=== PATIENT | female | born 1955 | race African-American/Black ===

== ENCOUNTER 2016-12-05 17:02 | Inpatient (IN) | payer OTHER ==
--- NOTE | 2016-12-05 17:27 | PDOC ---
History of Present Illness - General History Source: Patient Exam Limitations: No Limitations <Cristina Crawford - Last Filed: 12/05/16 18:47> - General History Source: Patient Exam Limitations: No Limitations - History of Present Illness Initial Comments: 12/05/16 18:50 The patient is a 61-year-old female (compliant with meds), with a significant past medical history of HTN, IDDM, CHF, NC with 2 stents, asthma, anemia, who presents to the emergency department with shortness of breath, chest tightness, hypertension, and a persistent cough. The patient reports the shortness of breath has been worsening, and she is unable to walk more than a block as opposed to 3 months ago. She has had the chest tightness for one week. She reports that the chest tightness is intermittent, extends from the left chest region to the throat, described as a pressure in her chest, and is exacerbated at night (uses 3 pillows to sleep). She reports a non-productive cough for the last 8 months, and she has taken nebulizers with no relief. She reports occasional chills and loss of appetite. The patient denies headache and dizziness. The patient denies fever, nausea, vomit, diarrhea and constipation. The patient denies any urinary complaints. She denies recent travel or sick contacts. She denies changes to medications. Allergies: Seasonal allergies, eye drops, penicillins Past surgical history: arthroscopy Social history: Denies smoking, ETOH, or recreational drug use. PMD - Dr. William Bruner Veterans Employment Representative: Dr. Con Chen <Misa Steven - Last Filed: 12/05/16 18:52> - General Chief Complaint: Blood Pressure Problem Stated Complaint: PCP SENT/SHORTNESS OF BREATH/HTN Time Seen by Provider: 12/05/16 17:21 Past History - Past Medical History Anemia: Yes Asthma: Yes Cancer: No Cardiac Disorders: Yes (NC 2012, 1 stent, CHF) CVA: No COPD: No CHF: Yes Dementia: No Diabetes: Yes GI Disorders: No Disorders: Yes (elevated creatinine) HTN: Yes Hypercholesterolemia: Yes Liver Disease: No Seizures: No Thyroid Disease: No - Surgical History Abdominal Surgery: No Appendectomy: No Cardiac Surgery: Yes (2 stents 04/29/2015) Cholecystectomy: No Lung Surgery: No Neurologic Surgery: No Orthopedic Surgery: Yes (arthroscopy sep 08 @ [facility]) - Immunization History Immunization Up to Date: Yes - Psycho/Social/Smoking Cessation Hx Anxiety: No Suicidal Ideation: No Smoking Status: No Smoking History: Never smoked Have you smoked in the past 12 months: No Number of Cigarettes Smoked Daily: 0 Information on smoking cessation initiated: No Hx Alcohol Use: No Drug/Substance Use Hx: No Substance Use Type: None Hx Substance Use Treatment: No <Cristina Crawford - Last Filed: 12/05/16 18:47> <Misa Steven - Last Filed: 12/05/16 18:52> - Past Medical History Allergies/Adverse Reactions: Allergies Allergy/AdvReac Type Severity Reaction Status Date / Time Penicillins Allergy Intermediate Hives Verified 12/05/16 17:12 Iodinated Contrast Media - Allergy Verified 12/05/16 17:12 Oral and [Iodinated Contrast Media - IV Dye] Home Medications: Ambulatory Orders Aspirin [ASA -] 81 mg PO DAILY #1 tab 03/06/13 Insulin (Novolog) [Novolog Flexpen -] 0 units SQ ACHS 01/16/14 Rosuvastatin Calcium [Crestor] 10 mg PO HS 01/16/14 Ferrous Sulfate [Feosol] 325 mg PO BID #0 ud 05/08/15 Prasugrel Hydrochloride [Effient -] 10 mg PO DAILY #0 tab 05/08/15 Carvedilol Phosphate [Coreg Cr -] 40 mg PO DAILY 10/25/15 Clonazepam 0.5 mg PO QID PRN 10/25/15 Albuterol 0.083% Nebulizer Bibiana [Ventolin 0.083% Nebulizer Soln -] 1 neb NEB QID 09/14/16 Hydralazine HCl 100 mg PO TID #90 tablet 09/18/16 Insulin (Levemir) [Levemir Vial] 30 units SQ HS ml 09/18/16 Torsemide [Demadex -] 20 mg PO DAILY #60 tablet 09/18/16 Nitroglycerin Patch [Nitro-Dur] 0.2 mg TD DAILY 12/05/16 Review of Systems - Review of Systems Able to Perform ROS?: Yes Comments:: 12/05/16 18:51 GENERAL/CONSTITUTIONAL: Present: (+) loss of appetite No: fever, chills, weakness. HEAD, EYES, EARS, NOSE AND THROAT: No: change in vision, ear pain, discharge, sore throat, throat swelling. CARDIOVASCULAR: Present: (+) Chest tightness No: lightheadedness, palpitations, syncope RESPIRATORY: Present: (+) cough, (+) shortness of breath No: hemoptysis, stridor. GASTROINTESTINAL: No: nausea, vomiting, abdominal cramping, diarrhea, rectal bleeding, constipation. GENITOURINARY: No: dysuria, hematuria, frequency, urgency, flank pain. MUSCULOSKELETAL: No: back pain, neck pain, joint pain, muscle swelling or pain SKIN AND BREASTS: No: lesions, pallor, rash or easy bruising. NEUROLOGIC: No: headache, vertigo, paresthesias, weakness ENDOCRINE: No: unexplained weight gain or loss HEMATOLOGIC/LYMPHATIC: No: anemia, easy bleeding, swelling nodes <StevenCarlyMisa - Last Filed: 12/05/16 18:52> *Physical Exam - Vital Signs Last Vital Signs Temp Pulse Resp BP Pulse Ox 98.6 F 96 H 19 204/110 96 12/05/16 17:05 12/05/16 17:05 12/05/16 17:05 12/05/16 17:05 12/05/16 17:05 <Cristina Crawford - Last Filed: 12/05/16 18:47> - Vital Signs Last Vital Signs Temp Pulse Resp BP Pulse Ox 98.6 F 100 H 20 224/112 100 12/05/16 17:05 12/05/16 17:35 12/05/16 17:35 12/05/16 17:35 12/05/16 17:35 - Physical Exam Comments: 12/05/16 18:51 GENERAL: The patient is in no acute distress. HEAD: Normal with no signs of trauma. EYES: PERRLA, EOMI, sclera anicteric, conjunctiva clear. ENT: Ears normal, nares patent, oropharynx clear without exudates. Moist mucous membranes. NECK: Normal range of motion, supple without lymphadenopathy, JVD, or masses. LUNGS: (+) Inspiratory and expiratory wheezing and rhonchi. HEART: (+) Tachycardia. Regular rhythm, normal S1 and S2 without murmur, rub or gallop. ABDOMEN: Soft, nontender, normoactive bowel sounds. No guarding, no rebound. EXTREMITIES: Normal range of motion, no lower extremity edema. No clubbing or cyanosis. No erythema, or tenderness. NEUROLOGICAL: Cranial nerves II through XII grossly intact. Normal speech. No focal neurological deficits. MUSCULOSKELETAL: Back non-tender to palpation, no CVA tenderness SKIN: Warm, Dry, normal turgor, no rashes or lesions noted. <Misa Steven - Last Filed: 12/05/16 18:52> ED Treatment Course - LABORATORY CBC & Chemistry Diagram: 12/05/16 17:20 12/05/16 17:20 - RADIOLOGY Radiology Studies Ordered: Category Date Time Status CHEST X-RAY PORTABLE* [RAD] Stat Radiology 12/05/16 17:21 Ordered <TyCristina - Last Filed: 12/05/16 18:47> - LABORATORY CBC & Chemistry Diagram: 12/05/16 17:20 12/05/16 17:20 - ADDITIONAL ORDERS Additional order review: Laboratory Results 12/05/16 12/05/16 12/05/16 18:20 18:00 17:20 INR VBG pH 7.24 L* POC VBG pCO2 58.7 H POC VBG pO2 32.3 Sodium 141 Potassium 4.4 Chloride 102 Carbon Dioxide 26 Anion Gap 13 BUN 49 H Creatinine 2.3 H Creat Clearance w eGFR 21.56 Random Glucose 131 H D Lactic Acid 0.991 Calcium 8.9 Total Bilirubin 0.3 AST 20 ALT 20 Alkaline Phosphatase 133 H D Creatine Kinase 93 Troponin I 0.19 H B-Natriuretic Peptide 1671.30 H Total Protein 8.4 H Albumin 3.9 12/05/16 17:20 INR 1.07 VBG pH POC VBG pCO2 POC VBG pO2 Sodium Potassium Chloride Carbon Dioxide Anion Gap BUN Creatinine Creat Clearance w eGFR Random Glucose Lactic Acid Calcium Total Bilirubin AST ALT Alkaline Phosphatase Creatine Kinase Troponin I B-Natriuretic Peptide Total Protein Albumin 12/05/16 17:20 RBC 4.62 MCV 77.6 L MCHC 32.2 RDW 12.8 MPV 7.8 Neutrophils % 59.3 Lymphocytes % 28.8 Monocytes % 7.8 Eosinophils % 3.2 Basophils % 0.9 - Medications Given in the ED: ED Medications Discontinued Medications Generic Name Dose Route Start Last Admin Trade Name Freq PRN Reason Stop Dose Admin Hydralazine HCl 10 mg 12/05/16 17:42 12/05/16 18:02 Apresoline Injection - IVPUSH 12/05/16 17:43 10 mg ONCE ONE Administration <Misa Steven - Last Filed: 12/05/16 18:52> Medical Decision Making - Medical Decision Making 12/05/16 17:26 A portion of this note was documented by scribe services under my direction. I have reviewed the details of the note, within reason, and agree with the documentation with the following case summary and management plan written by me. Nursing documentation reviewed and incorporated into medical decision making 12/05/16 18:21 This is a 61-year-old female with a history of hypertension, hyperlipidemia, coronary artery disease status post NC, PCI and stent x 2, just of heart failure (diastolic dysfunction), anemia who presents emergency department with a complaint of shortness of breath, cough, hypertension. Pt has had cough and shortness of breath for 2 week PT also has noted elevated blood pressure (previously blood pressure was 130s/ 80s) Pt has also noted intermittent left chest pain which is worse at night, not associated with diaphoresis/nausea/exertion, no radiation No recent travel No fevers or chills Pt has used her nebulizer with little relief No ill contacts Pt has been compliant with her antihypertensives (of note, pt had been on hydralazine 100 tid, now on hydralazine 25mg) On examination BP 224/126 Insp and exp wheezing and rhonchi No abd tenderness No lower extremity edema Will do: Labs CXR Nebs Pt would like to AVOID steroids (due to prior experience where they severely elevate 12/05/16 18:30 Laboratory Tests 09/25/16 12/05/16 12/05/16 15:06 17:20 17:20 WBC 8.3 Hgb 11.5 D Hct 35.9 Plt Count 296 Neutrophils % 59.3 Lymphocytes % 28.8 INR 1.07 Sodium Potassium Chloride Carbon Dioxide BUN 55 H D Creatinine 2.5 H Random Glucose 192 H D Alkaline Phosphatase Troponin I B-Natriuretic Peptide 12/05/16 17:20 WBC Hgb Hct Plt Count Neutrophils % Lymphocytes % INR Sodium 141 Potassium 4.4 Chloride 102 Carbon Dioxide 26 BUN 49 H Creatinine 2.3 H Random Glucose 131 H D Alkaline Phosphatase 133 H D Troponin I 0.19 H B-Natriuretic Peptide 1671.30 H 12/05/16 18:32 CXR: cardiomegaly No effusion, no consolidation 12/05/16 18:47 Pt with renal insufficiency, trop approximately stable BNP elevated BP improved slightly Will place on observation <Cristina Crawford - Last Filed: 12/05/16 18:47> *DC/Admit/Observation/Transfer - Discharge Dispostion Admit: Yes <Cristina Crawford - Last Filed: 12/05/16 18:47> - Attestations Scribe Attestion: 12/05/16 18:52 Documentation prepared by Misa Steven, acting as medical secretary for Cristina Crawford MD. <Misa Steven - Last Filed: 12/05/16 18:52> Diagnosis at time of Disposition: Asthma exacerbation Chest pain Qualifiers: Chest pain type: unspecified Qualified Code(s): R07.9 - Chest pain, unspecified HTN (hypertension) Qualifiers: Hypertension type: unspecified secondary hypertension Qualified Code(s): I15.9 - Secondary hypertension, unspecified - Discharge Dispostion Condition at time of disposition: Stable
[2016-12-05] MEDS ORDERED: hydrALAZINE HCL 20 MG/ML VIAL IVPUSH ONE (17:42)
[2016-12-05 17:50] LABS: BASOPHIL 0.9 % (0-2.0); EOSINOPHIL 3.2 % (0-4.5); MCHC 32.2 g/dl (32.0-36.0); MEAN CELL VOLUME 77.6 fl (80-96); MEAN PLT VOLUME 7.8 fl (7.5-11.1); NEUTROPHILS 59.3 % (42.8-82.8); PLATELET COUNT 296 K/MM3 (134-434); RDW 12.8 % (11.6-15.6); WHITE BLOOD COUNT 8.3 K/mm3 (4.0-10.0)
[2016-12-05] MEDS ORDERED: hydrALAZINE HCL 20 MG/ML VIAL ONE (17:56)
[2016-12-05] MEDS ORDERED: ALBUTEROL SO4 2.5/IPRATROPIUM 0.5 INH SOL 3 ML VIAL.NEB. NEB ONE ×2 (17:58)
[2016-12-05 18:06] LABS: INR 1.07 (0.82-1.09); PROTHROMBIN TIME (PATIENT) 11.8 SEC (9.98-11.88)
[2016-12-05 18:15] LABS: ALBUMIN 3.9 g/dl (3.4-5.0); BILIRUBIN,TOTAL 0.3 mg/dL (0.2-1.0); CALCIUM 8.9 mg/dL (8.5-10.1); CREATININE 2.3 mg/dL (0.55-1.02); TOT PROT 8.4 g/dl (6.4-8.2)
[2016-12-05 18:19] LABS: TROPONIN I 0.19 ng/ml (0.00-0.05)
[2016-12-05 18:33] LABS: VENOUS BLOOD GAS HCO3 24.4 meq/L (22-29)
[2016-12-05 18:35] LABS: VENOUS PH 7.24 (7.31-7.41)
--- NOTE | 2016-12-05 19:17 | HP ---
CHIEF COMPLAINT: "i have trouble breathing" PCP: Dr. William Bruner Assignment Desk Assistant: Dr. Con Chen Pulm: Dr Oliveira HISTORY OF PRESENT ILLNESS: This is a 61 yo F with PMH of plash pulmonary edema while euvolemic, malignant HTN, multi drug resistant HTN, IDDM, HFPEF, [place] s/p 2 stents, asthma and anemia, who presents due to sob, chest tightness and cough. In ED she is found to be hypertensive 224/112. She was hospitalized in august due to flash pulmonary edema in euvolemic state. She reports that she has has a persistent dry cough since then, aggravated by lying flat. yesterday she started feeling incresingly SOB, associated with L sided nonradiating chest tightness. She also noticed increased exercise intolerance, unable to walk 1 block. She began to wheeze yesterday as well. She also reports anorexia for the past week, and a few pounds of weight loss. She has baseline orhtopnea and sleeps on 3 pillows with no recent change. She is compliant with her meds. Her DM is poorly managed, last A1c=9; AM sugars 135-180. Per cardiology, she is unresponsive to the following BP meds: diovan, micardis, verap, norvasc, nifedipine, nisoldipine, catapres patch. She takes daily nebs for asthma but has not needed to increase them recently. She has never been hospitalized for asthma exacerbation. She denies increase in LE edema, h/a f/c, palpitations, chest pain, iliguria, n/v, loc, abd pain, diarrhea. ER course was notable for: (1)hydralazine IV, nebs (2)cxr, ekg (3)labs Recent Travel: denies PAST MEDICAL HISTORY: as above PAST SURGICAL HISTORY: c section, eye surgery, colloid scar removal, knee surgery Social History: lives with daughter, retired Smoking: denies Alcohol:denies Drugs: denies Family History: HTN Allergies Penicillins Allergy (Intermediate, Verified 12/05/16 17:12) Hives Iodinated Contrast Media - Oral and [Iodinated Contrast Media - IV Dye] Allergy (Verified 12/05/16 17:12) HOME MEDICATIONS: Medication Instructions Recorded Aspirin [ASA -] 81 mg PO DAILY #1 tab 04/08/13 Insulin (Novolog) [Novolog Flexpen 0 units SQ ACHS 01/16/14 -] Rosuvastatin Calcium [Crestor] 10 mg PO HS 01/16/14 Ferrous Sulfate [Feosol] 325 mg PO BID #0 ud 05/08/15 Prasugrel Hydrochloride [Effient -] 10 mg PO DAILY #0 tab 05/08/15 Carvedilol Phosphate [Coreg Cr -] 40 mg PO DAILY 10/25/15 Clonazepam 0.5 mg PO QID PRN 10/25/15 Albuterol 0.083% Nebulizer Bibiana 1 neb NEB QID 09/14/16 [Ventolin 0.083% Nebulizer Soln -] Hydralazine HCl 100 mg PO TID #90 tablet 09/18/16 Insulin (Levemir) [Levemir Vial] 30 units SQ HS ml 09/18/16 Torsemide [Demadex -] 20 mg PO DAILY #60 tablet 09/18/16 Nitroglycerin Patch [Nitro-Dur] 0.2 mg TD DAILY 12/05/16 REVIEW OF SYSTEMS CONSTITUTIONAL: Absent: fever, chills, diaphoresis, malaise HEENT: Absent: rhinorrhea, nasal congestion, throat pain CARDIOVASCULAR: Absent: chest pain, syncope, palpitations, irregular heart rate, lightheadedness RESPIRATORY: Absent: stridor, hemoptysis GASTROINTESTINAL: Absent: abdominal pain, abdominal distension, nausea, vomiting, diarrhea GENITOURINARY: Absent: dysuria, oliguria MUSCULOSKELETAL: Absent:back pain, neck pain SKIN: Absent: rash HEMATOLOGIC/IMMUNOLOGIC: Absent: frequent infections ENDOCRINE: Absent: heat intolerance, cold intolerance NEUROLOGIC: Absent: headache, focal weakness or paresthesias, dizziness PSYCHIATRIC: Absent: anxiety, depression PHYSICAL EXAMINATION Vital Signs - 24 hr 12/05/16 12/05/16 12/05/16 17:05 17:35 18:15 Temperature 98.6 F Pulse Rate 96 H Pulse Rate [ 100 H 87 Right Radial] Respiratory 19 20 20 Rate Blood Pressure 204/110 Blood Pressure 224/112 181/68 [Left Arm] O2 Sat by Pulse 96 100 100 Oximetry (%) GENERAL: Awake, alert, and fully oriented, in no acute distress. HEAD: Normal with no signs of trauma. EYES: Pupils equal, round and reactive to light, extraocular movements intact, sclera anicteric, conjunctiva clear. no papilledema EARS, NOSE, THROAT: Moist mucous membranes. NECK: supple without JVD LUNGS: diffuse wheezes HEART: tachy rate and reguylar rhythm, normal S1 and S2 ABDOMEN: Soft, nontender, not distended, normoactive bowel sounds MUSCULOSKELETAL: No CVA tenderness. UPPER EXTREMITIES: 2+ pulses, warm, well-perfused. No cyanosis. No peripheral edema. LOWER EXTREMITIES: 2+ pulses, warm, well-perfused. No calf tenderness. 1+ edema , at baseline per patient NEUROLOGICAL: Cranial nerves II-XII grossly intact. Normal speech. PSYCHIATRIC: Cooperative. Good eye contact SKIN: Warm, dry Laboratory Results - last 24 hr 12/05/16 12/05/16 12/05/16 17:20 17:20 17:20 WBC 8.3 RBC 4.62 Hgb 11.5 D Hct 35.9 MCV 77.6 L MCHC 32.2 RDW 12.8 Plt Count 296 MPV 7.8 Neutrophils % 59.3 Lymphocytes % 28.8 Monocytes % 7.8 Eosinophils % 3.2 Basophils % 0.9 INR 1.07 VBG pH POC VBG pCO2 POC VBG pO2 Sodium 141 Potassium 4.4 Chloride 102 Carbon Dioxide 26 Anion Gap 13 BUN 49 H Creatinine 2.3 H Creat Clearance w eGFR 21.56 Random Glucose 131 H D Lactic Acid Calcium 8.9 Total Bilirubin 0.3 AST 20 ALT 20 Alkaline Phosphatase 133 H D Creatine Kinase 93 Troponin I 0.19 H B-Natriuretic Peptide 1671.30 H Total Protein 8.4 H Albumin 3.9 Blood Type Antibody Screen 12/05/16 12/05/16 12/05/16 17:42 18:00 18:20 WBC RBC Hgb Hct MCV MCHC RDW Plt Count MPV Neutrophils % Lymphocytes % Monocytes % Eosinophils % Basophils % INR VBG pH 7.24 L* POC VBG pCO2 58.7 H POC VBG pO2 32.3 Sodium Potassium Chloride Carbon Dioxide Anion Gap BUN Creatinine Creat Clearance w eGFR Random Glucose Lactic Acid 0.991 Calcium Total Bilirubin AST ALT Alkaline Phosphatase Creatine Kinase Troponin I B-Natriuretic Peptide Total Protein Albumin Blood Type A POSITIVE Antibody Screen Negative ASSESSMENT/PLAN: his is a 61 yo F with PMH of plash pulmonary edema while euvolemic, malignant HTN, multi drug resistant HTN, IDDM, HFPEF, [place] s/p 2 stents, asthma and anemia, who presents due to sob, chest tightness and cough. HTN was brought down to 160 systolic in ED TTE 09/14/16 low normal EF EKG today no acute st changes CXR: bibasilar opacities similar to findings 1 yr ago but much better than in august Acute CHF exacerbation in setting of HFPEF and hypertensive urgency vs possible asthma exacerbation -trop 0.19 at patients baseline, trend trop -BNP 1671 at patients baseline -sign of volume overload on XCR vs pulm edema -no significant peripheral edema or weight gain -strict I and O -daily weight -gentle IV diuresis -nebs -am cxr -tfts, lipid profile -asa 325 -hold coreg until blood pressure is at baseline (150's) for 24 hr -cardiology consult Hypertensive urgency -no sign of acute end organ damage -Lasix 40 IV now; 40 daily -continue home meds; hydralazine 100 tid, NTG patch 0.2 d; torsemide 20d -tele monitoring CAD s/p pci -effient -crestor CKD -creat 2.3 baseline -monitor renal fxn IDDM -a1C -Levemid 30 HS -Novolog sliding scale -fingestick TID AC FEN No IVF; diurese Lytes stable DVT GI PPX: Hep, diet diabetic, na restricted diet Dispo: admit to tele Problem List - Problem (1) Asthma exacerbation Code(s): J45.901 - UNSPECIFIED ASTHMA WITH (ACUTE) EXACERBATION (2) HTN (hypertension) Code(s): I10 - ESSENTIAL (PRIMARY) HYPERTENSION Qualifiers: Hypertension type: unspecified secondary hypertension Qualified Code(s) : I15.9 - Secondary hypertension, unspecified; I15 - Secondary hypertension (3) Acute pulmonary edema with congestive heart failure Code(s): I50.1 - LEFT VENTRICULAR FAILURE (4) Anemia Code(s): D64.9 - ANEMIA, UNSPECIFIED (5) CAD (coronary artery disease) Code(s): I25.10 - ATHSCL HEART DISEASE OF [place] CORONARY ARTERY W/O ANG PCTRS (6) CHF (congestive heart failure) Code(s): I50.9 - HEART FAILURE, UNSPECIFIED (7) Headache Code(s): R51 - HEADACHE (8) IDDM (insulin dependent diabetes mellitus) Code(s): E11.9 - TYPE 2 DIABETES MELLITUS WITHOUT COMPLICATIONS Z79.4 - MUTUAL FUND ANALYST (CURRENT) USE OF INSULIN (9) IN, old Code(s): I25.2 - OLD MYOCARDIAL INFARCTION (10) Hypertensive urgency Code(s): I10 - ESSENTIAL (PRIMARY) HYPERTENSION Visit type - Emergency Visit Emergency Visit: Yes ED Registration Date: 12/05/16 Care time: The patient presented to the Emergency Department on the above date and was hospitalized for further evaluation of their emergent condition. - New Patient This patient is new to me today: Yes Date on this admission: 12/05/16 - Critical Care Critical Care patient: No
--- NOTE | 2016-12-05 19:19 | PN ---
<AnthonyJames - Last Filed: 12/05/16 19:18> Teaching Attending Note ATTENDING PHYSICIAN STATEMENT I saw and evaluated the patient. I reviewed the resident's note and discussed the case with the resident. I agree with the resident's findings and plan as documented. SUBJECTIVE: OBJECTIVE: ASSESSMENT AND PLAN: <Braxton Fontenot - Last Filed: 12/05/16 21:38> Teaching Attending Note Name of Resident: Siria Mccray ATTENDING PHYSICIAN STATEMENT I saw and evaluated the patient. I reviewed the resident's note and discussed the case with the resident. I agree with the resident's findings and plan as documented. SUBJECTIVE: 61 year old female, with past medical history of HTN, pulmonary edema, IDDM, CHF, [place] s/p stents (x2), asthma and anemia. The patient presents to the ED with severe shortness of breath, chest tightness and dyspnea on exertion for one day duration and a chronic dry cough for the past 8 months.Denies any fever, sick contacts. Currently reports improvement of chest tightness. Denies increase in weight. OBJECTIVE: Vitals: BP: 150/87 Afebrile Heart rate: 95 bpm GENERAL: Awake, alert, and fully oriented, in no acute distress HEENT: Atraumatic. PERRLA, EOMI. Moist mucosa. No JVD LUNGS: +Bilateral wheezing appreciated. HEART: Regular rate and rhythm, normal S1 and S2, no murmurs, peripheral pulses normal and equal bilaterally. ABDOMEN: Soft, nontender, normoactive bowel sounds. EXTREMITIES: 1+ bilateral pitting edema in lower extremities. NEUROLOGICAL: Cranial nerves II through XII grossly intact. Normal speech, no focal sensorimotor deficits SKIN: Warm, Dry, normal turgor, no rashes or lesions noted. CBCD WBC 8.3 K/mm3 (4.0-10.0) 12/05/16 17:20 RBC 4.62 M/mm3 (3.60-5.2) 12/05/16 17:20 Hgb 11.5 GM/dL (10.7-15.3) D 12/05/16 17:20 Hct 35.9 % (32.4-45.2) 12/05/16 17:20 MCV 77.6 fl (80-96) L 12/05/16 17:20 MCHC 32.2 g/dl (32.0-36.0) 12/05/16 17:20 RDW 12.8 % (11.6-15.6) 12/05/16 17:20 Plt Count 296 K/MM3 (134-434) 12/05/16 17:20 MPV 7.8 fl (7.5-11.1) 12/05/16 17:20 CMP Sodium 141 mmol/L (136-145) 12/05/16 17:20 Potassium 4.4 mmol/L (3.5-5.1) 12/05/16 17:20 Chloride 102 mmol/L (98-107) 12/05/16 17:20 Carbon Dioxide 26 mmol/L (21-32) 12/05/16 17:20 Anion Gap 13 (8-16) 12/05/16 17:20 BUN 49 mg/dL (7-18) H 12/05/16 17:20 Creatinine 2.3 mg/dL (0.55-1.02) H 12/05/16 17:20 Creat Clearance w eGFR 21.56 (>60) 12/05/16 17:20 Calcium 8.9 mg/dL (8.5-10.1) 12/05/16 17:20 Total Bilirubin 0.3 mg/dL (0.2-1.0) 12/05/16 17:20 AST 20 U/L (15-37) 12/05/16 17:20 ALT 20 U/L (12-78) 12/05/16 17:20 Alkaline Phosphatase 133 U/L (45-117) H D 12/05/16 17:20 Total Protein 8.4 g/dl (6.4-8.2) H 12/05/16 17:20 Albumin 3.9 g/dl (3.4-5.0) 12/05/16 17:20 Chest X-Ray Impression: cardiomegaly. Bilateral pulmonary edema and vascular congestion. EKG: Normal sinus rhythm No ST/T changes ASSESSMENT AND PLAN: 1. Decompensated congestive heart failure, Likely secondary to uncontrolled hypertension with fluid overload on physical exam, chest x-ray and elevated BNP. Decreased exercise tolerance from baseline -Give Furosemide 40 mg STAT and BID -Monitor ins and outs and daily weights -2 gram sodium diet -Start on Hydralizine 100 mg TID -Avoid rosendo inhibitors due to CKD 2. Coronary artery disease with history of cardiac stents (x2), Ekg no evidence of ST elevation AR, Troponin mildly elevated, rule out acute AR. -Trend Troponin Q6 Hours -Monitor on telemetry -Load with Aspirin 325 mg -Repeat EKG if Chest pain 3. Hypertensive urgency, has improved, blood pressure 150/87 on latest vital check -Continue to monitor vitals Q4 hours -Lasix 40 mg BID -Hydralazine 100 mg TID -2 Gram sodium diet 4. Asthma exacerbation -Treat with albuterol and atrovent nebs Q6 hours -Prednisone 40 mg daily 5. CKD, stable - Avoid nephrotoxic medications DVT prophylaxis -Heparin 5,000 units s/q Q12 Diet -2 gram sodium diabetic diet Documentation prepared by Braxton Fontenot, acting as certified medical asst for James Cruz MD
[2016-12-05] MEDS ORDERED: FUROSEMIDE 40 MG/4 ML INJECTABLE VIAL IVPUSH ONE (21:10)
[2016-12-05] MEDS: ACETAMINOPHEN 325 MG TABLET (FP) PO PRN (21:43)
[2016-12-05] MEDS: FERROUS SO4 325 MG TABLET (FP) PO SCH (21:45)
[2016-12-05] MEDS: hydrALAZINE HCL 50 MG TABLET (FP) PO SCH (21:45)
[2016-12-05] MEDS: ROSUVASTATIN CA 10 MG TABLET (FP) PO SCH (21:45)
[2016-12-05] MEDS: HEPARIN NA (PORCINE) 5,000 UNITS/ML 1ML VIAL SQ SCH (21:50)
[2016-12-05] MEDS ORDERED: ALBUTEROL SO4 0.083% IH SOL 2.5 MG/3 ML VIAL.NEB. NEB SCH (22:00)
[2016-12-05] MEDS ORDERED: CARVEDILOL PHOSPHATE CR 40 MG CAPSULE (FP) PO SCH (22:00)
[2016-12-05] MEDS ORDERED: ASPIRIN 325 MG ENTERIC COATED TABLET (FP) PO ONE (23:08)
[2016-12-05] MEDS: INSULIN DETEMIR 100 UNITS/ML MDV SQ SCH (23:23)
[2016-12-06 05:14] VITALS: BMI 39.9
[2016-12-06] MEDS: hydrALAZINE HCL 50 MG TABLET (FP) PO SCH (06:58)
[2016-12-06] MEDS ORDERED: INSULIN SLIDING SCALE (NOVOLOG) 1 VIAL SQ SCH (07:00)
[2016-12-06 07:10] LABS: MCHC 33.3 g/dl (32.0-36.0); MEAN CELL VOLUME 78.2 fl (80-96); MEAN PLT VOLUME 7.3 fl (7.5-11.1); PLATELET COUNT 241 K/MM3 (134-434); RDW 12.7 % (11.6-15.6)
[2016-12-06 07:31] LABS: CALCIUM 8.7 mg/dL (8.5-10.1); CREATININE 2.5 mg/dL (0.55-1.02); PHOSPHOROUS 4.6 mg/dL (2.5-4.9)
[2016-12-06 07:39] LABS: THYROID STIMULATING HORMONE 0.52 uIU/ml (0.358-3.74); TROPONIN I 0.19 ng/ml (0.00-0.05)
--- NOTE | 2016-12-06 09:26 | CONSULT ---
Cardiology Consult (text) - Consultation Consultation Note: cc: sob HPI: 61 year old f with known CAD--h/o NSTEMI '13 s/p LAD KAREN PCI 09/2013, and prox LCx KAREN PCI 2014, HTN, lone afib/PSVT, MR, pHTN, KATINA, NAFLD, HPL, CKD, anemia, IDDM who presents to the ED with shortness of breath. Says that after she was discharged in 08/2016 for dchf her breathing has been continually bothering her but then over past few days was much worse so came to ER. No cp, palps, dizzy, loc, pnd, orthopnea, le edema. Reports taking her meds at home. Sees dr johansen for cardiology. Past Medical History/past surg hx: per hpi. Additionally, obstructive renal stones with h/o R hydro s/p stent Social hx: Never smoked, no etoh or illicits Fam hx: No family hx of cardiac disease. Ros: per hpi; no nvd, nasal congestion, gib, hematuria, muscle pain, rose, vision changes - Allergies Allergies/Adverse Reactions: Allergies Allergy/AdvReac Type Severity Reaction Status Date / Time Penicillins Allergy Intermediate Hives Verified 12/05/16 17:12 Iodinated Contrast Media - Allergy Verified 12/05/16 17:12 Oral and [Iodinated Contrast Media - IV Dye] Medication Instructions Recorded Aspirin [ASA -] 81 mg PO DAILY #1 tab 03/06/13 Insulin (Novolog) [Novolog Flexpen 0 units SQ ACHS 01/16/14 -] Rosuvastatin Calcium [Crestor] 10 mg PO HS 01/16/14 Ferrous Sulfate [Feosol] 325 mg PO BID #0 ud 05/08/15 Prasugrel Hydrochloride [Effient -] 10 mg PO DAILY #0 tab 05/08/15 Carvedilol Phosphate [Coreg Cr -] 20 mg PO HS 10/25/15 Clonazepam 0.5 mg PO QID PRN 10/25/15 Albuterol 0.083% Nebulizer Bibiana 1 neb NEB QID 09/14/16 [Ventolin 0.083% Nebulizer Soln -] Hydralazine HCl 100 mg PO TID #90 tablet 09/18/16 Insulin (Levemir) [Levemir Vial] 30 units SQ HS ml 09/18/16 Torsemide [Demadex -] 20 mg PO DAILY #60 tablet 09/18/16 Nitroglycerin Patch [Nitro-Dur] 0.2 mg TD DAILY 12/05/16 pe: Vital Signs Period Temp Pulse Resp BP Sys/Shankar Pulse Ox Last 24 Hr 98.3 F-98.7 F 78-100 18-20 149-224/68-112 92-100 NAD, JVD flat, neck supple cta bl nl eff RRR nl s1 s2, no mrg + bs soft nt nd ext without e/c/c + dp/pt, no carotid bruits no jaundice, diaphoresis aaox3 Laboratory Last Values WBC 7.0 K/mm3 (4.0-10.0) 12/06/16 05:30 RBC 3.91 M/mm3 (3.60-5.2) 12/06/16 05:30 Hgb 10.2 GM/dL (10.7-15.3) L D 12/06/16 05:30 Hct 30.6 % (32.4-45.2) L 12/06/16 05:30 MCV 78.2 fl (80-96) L 12/06/16 05:30 MCHC 33.3 g/dl (32.0-36.0) 12/06/16 05:30 RDW 12.7 % (11.6-15.6) 12/06/16 05:30 Plt Count 241 K/MM3 (134-434) 12/06/16 05:30 MPV 7.3 fl (7.5-11.1) L 12/06/16 05:30 Neutrophils % 59.3 % (42.8-82.8) 12/05/16 17:20 Lymphocytes % 28.8 % (8-40) 12/05/16 17:20 Monocytes % 7.8 % (3.8-10.2) 12/05/16 17:20 Eosinophils % 3.2 % (0-4.5) 12/05/16 17:20 Basophils % 0.9 % (0-2.0) 12/05/16 17:20 INR 1.07 (0.82-1.09) 12/05/16 17:20 VBG pH 7.24 (7.31-7.41) L* 12/05/16 18:20 POC VBG pCO2 58.7 mmHg (41-51) H 12/05/16 18:20 POC VBG pO2 32.3 mmHg (30-40) 12/05/16 18:20 Sodium 141 mmol/L (136-145) 12/06/16 05:30 Potassium 4.1 mmol/L (3.5-5.1) 12/06/16 05:30 Chloride 105 mmol/L (98-107) 12/06/16 05:30 Carbon Dioxide 26 mmol/L (21-32) 12/06/16 05:30 Anion Gap 10 (8-16) 12/06/16 05:30 BUN 54 mg/dL (7-18) H 12/06/16 05:30 Creatinine 2.5 mg/dL (0.55-1.02) H 12/06/16 05:30 Creat Clearance w eGFR 21.56 (>60) 12/05/16 17:20 POC Glucometer 113 UNITS (()) 12/06/16 06:57 Random Glucose 110 mg/dL (74-106) H 12/06/16 05:30 Hemoglobin A1c % 10.2 % (4.8-6.0) H D 12/06/16 05:30 Lactic Acid 0.991 mmol/L (0.4-2.0) 12/05/16 18:00 Calcium 8.7 mg/dL (8.5-10.1) 12/06/16 05:30 Phosphorus 4.6 mg/dL (2.5-4.9) 12/06/16 05:30 Magnesium 2.0 mg/dL (1.8-2.4) 12/06/16 05:30 Total Bilirubin 0.3 mg/dL (0.2-1.0) 12/05/16 17:20 AST 20 U/L (15-37) 12/05/16 17:20 ALT 20 U/L (12-78) 12/05/16 17:20 Alkaline Phosphatase 133 U/L (45-117) H D 12/05/16 17:20 Creatine Kinase 93 IU/L (26-192) 12/05/16 17:20 Troponin I 0.19 ng/ml (0.00-0.05) H 12/06/16 05:30 B-Natriuretic Peptide 1671.30 pg/ml (5-125) H 12/05/16 17:20 Total Protein 8.4 g/dl (6.4-8.2) H 12/05/16 17:20 Albumin 3.9 g/dl (3.4-5.0) 12/05/16 17:20 Cholesterol 269 mg/dL (50-200) H 12/06/16 05:30 TSH 0.52 uIU/ml (0.358-3.74) 12/06/16 05:30 Free T4 1.14 ng/dl (0.76-1.46) 12/06/16 05:30 Blood Type A POSITIVE 12/05/16 17:42 Antibody Screen Negative 12/05/16 17:42 ECG 12/05/16: SR, nl intervals. No ischemic changes. Echo 09/14/16: Low nl LVEF. RV not well seen. 1+ MR. Echo 03/2015: TDS, normal LV/RVF, no sig valv abn Dobut stress echo 10/2015: 7.34 min. 83% MPHR. HTN response. No EKG changes. TDS apex, portions of AW and basal PW not well seen. No ischemia, appropriate EF augmentation. (post PCI) cxr: clear lungs tele: SR Assessment/Plan 61 year old f with known CAD--h/o NSTEMI '13 s/p LAD KAREN PCI 09/2013, and prox LCx KAREN PCI 2014, HTN, lone afib/PSVT, MR, pHTN, KATINA, NAFLD, HPL, CKD, anemia, IDDM who presents to the ED with shortness of breath. SOB/ acute decompensated diastolic CHF (acute on chronic HFPEF) - hx of "flash" pulmonary edema in the past--felt to be a combo of diast dysf and ischemic heart disease. Dry weight 247-250 lbs. - no signs acs - after iv lasix last night feeling much better. Based on BNP, dry weight and physical exam, she appears to be at baseline vol status now. 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 cont crestor, coreg, NTG patch. - No ACEI given fluctuating renal function. HTN: - intolerant of multiple BP meds before--diovan, micardis, verap, norvasc, nifedipine, nisoldipine, catapres path - bp initially elevated here but now improved. cont home coreg, nitro, hydralazine--pt reports she was not taking hydralazine 100 tid anymore and had been on 25 tid due to low bp in office, cont this dose for now, increase if needed HPL: - tolerating crestor 10 mg, con't. Myalgias w Atorva/Simva and high dose crestor KATINA / Mod PHTN - compliant with CPAP at home. - diastolic dysfunction likely also contributing to pHTN. ARF / CKD--scr in the 2.2--2.6 range - in baseline range, monitor with diuresis Remote PAF and PSVT - lone AF episode in setting of dobutamine, no recurrence. No AC thought to be indicated.
[2016-12-06] MEDS ORDERED: PT OWN MED DRAWER 7, Y5N ONE ×2 (09:43→22:12)
[2016-12-06] MEDS ORDERED: TORSEMIDE 20 MG TABLET (FP) PO SCH ×2 (10:00)
[2016-12-06] MEDS ORDERED: FUROSEMIDE 40 MG/4 ML INJECTABLE VIAL IVPUSH SCH ×2 (10:00)
[2016-12-06] MEDS: FERROUS SO4 325 MG TABLET (FP) PO SCH ×2 (10:48→22:07)
[2016-12-06] MEDS: ASPIRIN 81 MG CHEWABLE TABLETS PO SCH (10:50)
[2016-12-06] MEDS: CARVEDILOL PHOSPHATE CR 20 MG CAPSULE (FP) PO SCH (10:50)
[2016-12-06] MEDS: HEPARIN NA (PORCINE) 5,000 UNITS/ML 1ML VIAL SQ SCH ×2 (10:50→22:07)
[2016-12-06] MEDS: PRASUGREL HCL 10 MG TAB PO SCH (10:55)
--- NOTE | 2016-12-06 11:23 | EKG ---
Test Reason : Blood Pressure : / mmHG Vent. Rate : 086 BPM Atrial Rate : 086 BPM P-R Int : 182 ms QRS Dur : 082 ms QT Int : 364 ms P-R-T Axes : 054 006 050 degrees QTc Int : 435 ms POOR DATA QUALITY, INTERPRETATION MAY BE ADVERSELY AFFECTED NORMAL SINUS RHYTHM NORMAL ECG WHEN COMPARED WITH ECG OF 14-SEP-2016 11:13, NO SIGNIFICANT CHANGE WAS FOUND Confirmed by EVETTE LEWIS, AMY ([id number]) on 12/06/2016 11:22:35 AM Referred By: Confirmed By:AMY ALAS MD
--- NOTE | 2016-12-06 11:33 | PN ---
Progress Note, Physician - Current Medication List Current Medications: Active Medications Acetaminophen (Tylenol -) 650 mg PO Q6H PRN PRN Reason: FEVER OR PAIN Last Admin: 12/05/16 21:43 Dose: 650 mg Albuterol Sulfate (Ventolin 0.083% Nebulizer Soln -) 1 amp NEB QID [facility] Last Admin: 12/05/16 23:10 Dose: 1 amp Aspirin (Asa -) 81 mg PO DAILY [facility] Last Admin: 12/06/16 10:50 Dose: 81 mg Budesonide/Formoterol Fumarate (Symbicort 160/4.5mcg -) 1 puff IH BID [facility] Carvedilol (Coreg Cr -) 40 mg PO DAILY [facility] Last Admin: 12/06/16 10:50 Dose: 40 mg Clonazepam (Klonopin -) 0.5 mg PO QID PRN PRN Reason: ANXIETY Ferrous Sulfate (Feosol -) 325 mg PO BID [facility] Last Admin: 12/06/16 10:48 Dose: 325 mg Heparin Sodium (Porcine) (Heparin -) 5,000 unit SQ BID [facility] Last Admin: 12/06/16 10:50 Dose: 5,000 unit Hydralazine HCl (Apresoline -) 25 mg PO TID [facility] Insulin Aspart (Novolog Vial Sliding Scale -) 1 vial SQ ACHS [facility] PRN Reason: Protocol Insulin Detemir (Levemir Vial) 30 units SQ HS [facility] Last Admin: 12/05/16 23:23 Dose: 30 units Nitroglycerin (Nitro-Dur Patch -) 0.2 mg TD DAILY [facility] Prasugrel (Effient -) 10 mg PO DAILY [facility] Last Admin: 12/06/16 10:55 Dose: 10 mg Rosuvastatin Calcium (Crestor -) 10 mg PO HS [facility] Last Admin: 12/05/16 21:45 Dose: 10 mg Torsemide (Demadex -) 20 mg PO DAILY [facility] - Objective Vital Signs: Vital Signs Temperature 98.7 F 12/06/16 08:22 Pulse Rate 85 12/06/16 08:22 Respiratory Rate 20 12/06/16 08:22 Blood Pressure 157/74 12/06/16 08:22 O2 Sat by Pulse Oximetry (%) 92 L 12/06/16 08:24 Constitutional: Yes: Well Nourished, No Distress, Calm Eyes: Yes: WNL, Conjunctiva Clear HENT: Yes: WNL, Atraumatic, Normocephalic Neck: Yes: WNL, Supple, Trachea Midline Cardiovascular: Yes: WNL, Regular Rate and Rhythm Respiratory: Yes: Cough, Rhonchi, Wheezes Gastrointestinal: Yes: WNL, Normal Bowel Sounds Musculoskeletal: Yes: WNL Extremities: Yes: WNL Edema: No Integumentary: Yes: WNL Neurological: Yes: WNL, Alert, Oriented ...Motor Strength: WNL Psychiatric: Yes: WNL Labs: CBC, BMP 12/06/16 05:30 12/06/16 05:30 INR, PTT INR 1.07 (0.82-1.09) 12/05/16 17:20 Impression/Plan Impression/Plan: 61 year woman with HTN, DM, CAD s/p stent x2, admitted for acute on chronic asthma exacerbation Asthma -has been taking eye drops which have been causing post-nasal drip which aggravated he asthma by causing coughing -CXR showed mild hyperexpansion of lungs with no pulm edema, no effusions -has rhonchi and mild expiratory wheezing on exam -pt states she will not take systemic steroids due to sever hyperglycemia in the past -start symbicort -cont nebs Visit type - Emergency Visit Emergency Visit: Yes ED Registration Date: 12/05/16 Care time: The patient presented to the Emergency Department on the above date and was hospitalized for further evaluation of their emergent condition. - New Patient This patient is new to me today: Yes Date on this admission: 12/06/16 - Critical Care Critical Care patient: No
[2016-12-06] MEDS ORDERED: POLYETHYLENE GLYCOL 3350 119 GM BTL PO ONE (11:35)
[2016-12-06] MEDS: ALBUTEROL SO4 0.083% IH SOL 2.5 MG/3 ML VIAL.NEB. NEB PRN ×2 (12:07→20:25)
[2016-12-06] MEDS: NITROGLYCERIN 0.2 MG/HOUR TD PATCH TD SCH (14:55)
[2016-12-06] MEDS: BUDESONIDE/FORMETEROL FUMARATE 160/4.5 mcg INHALER IH SCH ×2 (14:55→22:07)
[2016-12-06] MEDS: hydrALAZINE HCL 25 MG TABLET (FP) PO SCH ×2 (15:04→22:07)
[2016-12-06] MEDS: INSULIN SLIDING SCALE (NOVOLOG) 1 VIAL SQ SCH ×2 (18:32→22:07)
--- NOTE | 2016-12-06 19:50 | PN ---
Progress Note, Physician Chief Complaint: chf History of Present Illness: wt went up 2 lb today but she is not feeling any of her chf sx's (incr abd swelling, leg swelling, incr sob) wheezing still when lays flat; no palpit, cp no cigs - Current Medication List Current Medications: Active Medications Acetaminophen (Tylenol -) 650 mg PO Q6H PRN PRN Reason: FEVER OR PAIN Last Admin: 12/05/16 21:43 Dose: 650 mg Albuterol Sulfate (Ventolin 0.083% Nebulizer Soln -) 1 amp NEB QID PRN PRN Reason: ASTHMA Last Admin: 12/06/16 12:07 Dose: 1 amp Aspirin (Asa -) 81 mg PO DAILY [facility] Last Admin: 12/06/16 10:50 Dose: 81 mg Budesonide/Formoterol Fumarate (Symbicort 160/4.5mcg -) 2 puff IH BID [facility] Last Admin: 12/06/16 14:55 Dose: 2 puff Carvedilol (Coreg Cr -) 40 mg PO DAILY [facility] Last Admin: 12/06/16 10:50 Dose: 40 mg Clonazepam (Klonopin -) 0.5 mg PO QID PRN PRN Reason: ANXIETY Ferrous Sulfate (Feosol -) 325 mg PO BID [facility] Last Admin: 12/06/16 10:48 Dose: 325 mg Heparin Sodium (Porcine) (Heparin -) 5,000 unit SQ BID [facility] Last Admin: 12/06/16 10:50 Dose: 5,000 unit Hydralazine HCl (Apresoline -) 25 mg PO TID [facility] Last Admin: 12/06/16 15:04 Dose: 25 mg Insulin Aspart (Novolog Vial Sliding Scale -) 1 vial SQ ACHS [facility] PRN Reason: Protocol Last Admin: 12/06/16 18:32 Dose: 4 units Insulin Detemir (Levemir Vial) 30 units SQ HS [facility] Last Admin: 12/05/16 23:23 Dose: 30 units Nitroglycerin (Nitro-Dur Patch -) 0.2 mg TD DAILY [facility] Last Admin: 12/06/16 14:55 Dose: 0.2 mg Prasugrel (Effient -) 10 mg PO DAILY [facility] Last Admin: 12/06/16 10:55 Dose: 10 mg Rosuvastatin Calcium (Crestor -) 10 mg PO HS [facility] Last Admin: 12/05/16 21:45 Dose: 10 mg Torsemide (Demadex -) 20 mg PO DAILY [facility] - Objective Vital Signs: Vital Signs Temperature 98.4 F 12/06/16 19:09 Pulse Rate 94 H 12/06/16 16:35 Respiratory Rate 20 12/06/16 16:35 Blood Pressure 121/71 12/06/16 16:35 O2 Sat by Pulse Oximetry (%) 96 12/06/16 09:30 Constitutional: Yes: No Distress, Calm, Obese Eyes: No: Sclera Icterus HENT: No: Nasal Congestion Cardiovascular: Yes: Regular Rate and Rhythm, S1, S2, Other (PMI non diplaced). No: JVD, Gallop, Murmur Respiratory: Yes: CTA Bilaterally, Wheezes. No: Accessory Muscle Use, Rales Gastrointestinal: Yes: Normal Bowel Sounds, Soft. No: Tenderness Musculoskeletal: Yes: Other (No kyphosis) Extremities: No: Cold Edema: No Integumentary: No: Jaundice Neurological: Yes: Alert, Oriented (x3) Psychiatric: No: Agitated Labs: CBC, BMP 12/06/16 05:30 12/06/16 05:30 INR, PTT INR 1.07 (0.82-1.09) 12/05/16 17:20 - ....Imaging EKG: Other (telem: NSR) Assessment/Plan Echo 09/14/16: Low nl LVEF. RV not well seen. 1+ MR. Echo 03/2015: TDS, normal LV/RVF, no sig valv abn Dobut stress echo 10/2015: 7.34 min. 83% MPHR. HTN response. No EKG changes. TDS apex, portions of AW and basal PW not well seen. No ischemia, appropriate EF augmentation. (post PCI) cxr: clear lungs Assessment/Plan 61 year old f with known CAD--h/o NSTEMI '13 s/p LAD KAREN PCI 09/2013, and prox LCx KAREN PCI 2014, HTN, lone afib/PSVT, MR, pHTN, KATINA, NAFLD, HPL, CKD, anemia, IDDM who presents to the ED with shortness of breath. SOB/acute decompensated diastolic CHF (acute on chronic HFPEF) - hx of "flash" pulmonary edema in the past--felt to be a combo of diast dysf and ischemic heart disease. Dry weight 247-250 lbs. - no signs acs - cxr 12/05 with diffuse interstitial pattern most prominent in lower lung garcia , with L > R small effusions - CXR 12/06 signif improved - 12/06: sob much improved after iv lasix, changed back to po torsemide 20qd - 12/07: wt up 2 lbs, signif wheezing still though suspect this is sec to her bronchospasm/asthma, given none of her other usual s/sx of decomp chf are present - was up to 248 lbs at home recently, incr'd torsemide 20 to 40 qd--came down to 245 but remained with sx's of chf so came to hosp - will give dose of IV lasix today and reassess wt and creat in am--anticipate she will be ready for d/c tomorrow chf-junior, on torsemide 20-40 po qd - 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 cont crestor, coreg, NTG patch. - No ACEI given fluctuating renal function. HTN: - intolerant of multiple BP meds before--diovan, micardis, verap, norvasc, nifedipine, nisoldipine, catapres path - bp initially elevated here but now improved. cont home coreg, nitro, hydralazine--pt reports she was not taking hydralazine 100 tid anymore and had been on 25 tid due to low bp in office, cont this dose for now, increase if needed HPL: - tolerating crestor 10 mg, con't. Myalgias w Atorva/Simva and high dose crestor KATINA / Mod PHTN - compliant with CPAP at home. - diastolic dysfunction likely also contributing to pHTN. ARF / CKD--scr in the 2.2--2.6 range - in baseline range, monitor with diuresis Remote PAF and PSVT - lone AF episode in setting of dobutamine, no recurrence. No AC thought to be indicated.
[2016-12-06] MEDS: ROSUVASTATIN CA 10 MG TABLET (FP) PO SCH (22:07)
[2016-12-06] MEDS: INSULIN DETEMIR 100 UNITS/ML MDV SQ SCH (22:07)
[2016-12-07] MEDS: hydrALAZINE HCL 25 MG TABLET (FP) PO SCH ×3 (06:10→21:06)
[2016-12-07] MEDS: ALBUTEROL SO4 0.083% IH SOL 2.5 MG/3 ML VIAL.NEB. NEB PRN ×4 (06:16→23:45)
[2016-12-07] MEDS: INSULIN SLIDING SCALE (NOVOLOG) 1 VIAL SQ SCH ×4 (06:18→21:07)
[2016-12-07] MEDS ORDERED: PT OWN MED DRAWER 7, Y5N ONE ×2 (09:33→20:54)
[2016-12-07] MEDS: TORSEMIDE 20 MG TABLET (FP) PO SCH (09:41)
[2016-12-07] MEDS: ASPIRIN 81 MG CHEWABLE TABLETS PO SCH (09:41)
[2016-12-07] MEDS: FERROUS SO4 325 MG TABLET (FP) PO SCH ×2 (09:42→21:06)
[2016-12-07] MEDS: HEPARIN NA (PORCINE) 5,000 UNITS/ML 1ML VIAL SQ SCH ×2 (09:42→21:06)
[2016-12-07] MEDS: BUDESONIDE/FORMETEROL FUMARATE 160/4.5 mcg INHALER IH SCH ×2 (09:43→21:09)
--- NOTE | 2016-12-07 10:47 | PN ---
<Zev Stanford - Last Filed: 12/07/16 15:03> Physical Exam: ATTENDING PHYSICIAN STATEMENT I saw and evaluated the patient. I reviewed the resident's note and discussed the case with the resident. I agree with the resident's findings and plan as documented. SUBJECTIVE: seen and evaluated at the bedside OBJECTIVE: wheezing and rhonchi improved from yesterday ASSESSMENT AND PLAN: 61 year woman with HTN, DM, CAD s/p stent x2, admitted for acute on chronic asthma exacerbation Asthma -has been taking eye drops which have been causing post-nasal drip which aggravated he asthma by causing coughing -CXR showed mild hyperexpansion of lungs with no pulm edema, no effusions -has rhonchi and mild expiratory wheezing on exam but improved from previous -pt states she will not take systemic steroids due to sever hyperglycemia in the past -started symbicort -cont nebs -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 She still c/o wheezing while lying down. Denied fever, chills, n/v, chest pain, abd pain, bowel or urinary sx. OBJECTIVE: Vital Signs Period Temp Pulse Resp BP Sys/Shankar Pulse Ox Last 24 Hr 97.9 F-98.4 F 70-94 14-22 121-151/56-83 96 GENERAL: The patient is awake, alert, oriented to time and person, not in cardiopulmonary distress NECK: no JVD LUNGS: RUL wheezing HEART: RRR, S1, S2 without murmur, rub or gallop. ABDOMEN: Soft, nontender, nondistended, normoactive bowel sounds, no guarding, no rebound, no hepatosplenomegaly, no masses. EXTREMITIES: trace edema. Laboratory Results - last 24 hr 12/06/16 12/06/16 12/06/16 11:34 17:24 22:05 POC Glucometer 194 202 204 12/07/16 06:10 POC Glucometer 137 Active Medications Generic Name Dose Route Start Last Admin Trade Name Freq PRN Reason Stop Dose Admin Acetaminophen 650 mg 12/05/16 21:27 12/05/16 21:43 Tylenol - PO 650 mg Q6H PRN Administration FEVER OR PAIN Albuterol Sulfate 1 amp 12/06/16 11:35 01/09/17 06:16 Ventolin 0.083% Nebulizer Soln - NEB 1 amp QID PRN Administration ASTHMA Aspirin 81 mg 12/06/16 10:00 12/07/16 09:41 Asa - PO 81 mg DAILY [facility] Administration Budesonide/Formoterol Fumarate 2 puff 12/06/16 13:00 12/07/16 09:43 Symbicort 160/4.5mcg - IH Not Given BID [facility] Carvedilol 40 mg 12/06/16 10:00 12/06/16 10:50 Coreg Cr - PO 40 mg DAILY [facility] Administration Clonazepam 0.5 mg 12/05/16 21:11 Klonopin - PO QID PRN ANXIETY Docusate Sodium 100 mg 12/07/16 10:15 Colace - PO DAILY [facility] Ferrous Sulfate 325 mg 12/05/16 22:00 12/07/16 09:42 Feosol - PO 325 mg BID [facility] Administration Furosemide 40 mg 12/07/16 10:43 Lasix Injection - IVPUSH 12/07/16 10:44 ONCE ONE Heparin Sodium (Porcine) 5,000 unit 12/05/16 22:00 12/07/16 09:42 Heparin - SQ 5,000 unit BID [facility] Administration Hydralazine HCl 25 mg 12/06/16 09:13 12/07/16 06:10 Apresoline - PO 25 mg TID [facility] Administration Insulin Aspart 1 vial 12/06/16 16:30 12/07/16 06:18 Novolog Vial Sliding Scale - SQ Not Given ACHS [facility] Protocol Insulin Detemir 30 units 12/05/16 22:00 12/06/16 22:07 Levemir Vial SQ 30 units HS [facility] Administration Nitroglycerin 0.2 mg 12/06/16 10:00 12/06/16 14:55 Nitro-Dur Patch - TD 0.2 mg DAILY [facility] Administration Prasugrel 10 mg 12/06/16 10:00 12/06/16 10:55 Effient - PO 10 mg DAILY [facility] Administration Rosuvastatin Calcium 10 mg 12/05/16 22:00 12/06/16 22:07 Crestor - PO 10 mg HS [facility] Administration Torsemide 20 mg 12/07/16 10:00 12/07/16 09:41 Demadex - PO 20 mg DAILY [facility] Administration Imaging TTE 09/14/16 low normal EF EKG today no acute st changes CXR: bibasilar opacities similar to findings 1 yr ago but much better than in august ASSESSMENT/PLAN: 61 yo F h/o pulmonary edema while euvolemic, malignant HTN, multi drug resistant HTN, IDDM, HFPEF, [place] s/p 2 stents, asthma and anemia admitted for asthma and CHF exacerbations. Dyspnea 2/2 Acute asthma exacerbation and CHF exacerbation - elevated BNP, however, at baseline * no sign of fluid overload * diuresed well after lasix - cont. PO torsemide - cont. symbicort, ventolin, singulair - 3L O2 - f/u peak flow Malignant HTN - visual change; seeing spots - cont. coreg, nitro, hydralazine CAD s/p PCI - stable - troponins at baseline - cont. asa, pragurel HLD - cont. crestor CKD - at baseline - cont. to monitor IDDM - levemid 30 units HS - sliding scale FEN - No IVF - normal lytes - diabetic diet Prophlaxis - DVT: Heparin - GI: not indicated - deconditioning: early ambulation Dispo: active d/c planning for tomorrow Visit type - Emergency Visit Emergency Visit: No - New Patient This patient is new to me today: Yes Date on this admission: 12/07/16 - Critical Care Critical Care patient: No - Discharge Referral Referred to [facility] No
[2016-12-07] MEDS ORDERED: FUROSEMIDE 40 MG/4 ML INJECTABLE VIAL IVPUSH ONE (11:00)
--- NOTE | 2016-12-07 11:03 | MSN ---
Progress Note (SOAP) - Subjective History of Present Illness: Paz Gonzalez is a 61 y/o female with a pmh of flash pulmonary edema, asthma, HFPEF , [place] s/p 2 stents, and malignant HTN who is on day 3 of admission after presenting with SOB, cough, and chest tightness. I saw and spoke to the pt this morning and she feels she still has a little wheezing. She complains of SOB while lying down although she does have baseline orthopnea. She also became dizzy yesterday when she stood up to try and walk and her O2 went from 96 to 93. She denies any chest pain, palpitations, SOB at rest, swelling in legs, abdominal pain, dysuria, or weakness. - Current Medications Current Medications: Active Medications Acetaminophen (Tylenol -) 650 mg PO Q6H PRN PRN Reason: FEVER OR PAIN Last Admin: 12/05/16 21:43 Dose: 650 mg Albuterol Sulfate (Ventolin 0.083% Nebulizer Soln -) 1 amp NEB QID PRN PRN Reason: ASTHMA Last Admin: 12/07/16 06:16 Dose: 1 amp Aspirin (Asa -) 81 mg PO DAILY [facility] Last Admin: 12/07/16 09:41 Dose: 81 mg Budesonide/Formoterol Fumarate (Symbicort 160/4.5mcg -) 2 puff IH BID [facility] Last Admin: 12/07/16 09:43 Dose: Not Given Carvedilol (Coreg Cr -) 40 mg PO DAILY [facility] Last Admin: 12/06/16 10:50 Dose: 40 mg Clonazepam (Klonopin -) 0.5 mg PO QID PRN PRN Reason: ANXIETY Docusate Sodium (Colace -) 100 mg PO DAILY [facility] Ferrous Sulfate (Feosol -) 325 mg PO BID [facility] Last Admin: 12/07/16 09:42 Dose: 325 mg Furosemide (Lasix Injection -) 40 mg IVPUSH ONCE ONE Stop: 12/07/16 11:01 Heparin Sodium (Porcine) (Heparin -) 5,000 unit SQ BID [facility] Last Admin: 12/07/16 09:42 Dose: 5,000 unit Hydralazine HCl (Apresoline -) 25 mg PO TID [facility] Last Admin: 12/07/16 06:10 Dose: 25 mg Insulin Aspart (Novolog Vial Sliding Scale -) 1 vial SQ ACHS [facility] PRN Reason: Protocol Last Admin: 12/07/16 06:18 Dose: Not Given Insulin Detemir (Levemir Vial) 30 units SQ [facility] Last Admin: 12/06/16 22:07 Dose: 30 units Nitroglycerin (Nitro-Dur Patch -) 0.2 mg TD DAILY [facility] Last Admin: 12/06/16 14:55 Dose: 0.2 mg Prasugrel (Effient -) 10 mg PO DAILY [facility] Last Admin: 12/06/16 10:55 Dose: 10 mg Rosuvastatin Calcium (Crestor -) 10 mg PO HS [facility] Last Admin: 12/06/16 22:07 Dose: 10 mg Torsemide (Demadex -) 20 mg PO DAILY [facility] Last Admin: 12/07/16 09:41 Dose: 20 mg - Objective Vital Signs: Vital Signs Temperature 98.2 F 12/07/16 08:00 Pulse Rate 74 12/07/16 08:00 Respiratory Rate 14 12/07/16 08:00 Blood Pressure 150/82 12/07/16 08:00 O2 Sat by Pulse Oximetry (%) 96 12/06/16 21:00 Constitutional: Yes: No Distress, Calm Eyes: Yes: Conjunctiva Clear, EOM Intact, PERRL HENT: Yes: Other (Dry mucous membranes, enlarged papillae on back of tongue) Neck: Yes: WNL (no JVD) Cardiovascular: Yes: Regular Rate and Rhythm, S1, S2 Respiratory: Yes: Cough (dry), Rhonchi (diffuse ronchi, more on the right), Wheezes (some inspiratory wheezes b/) Gastrointestinal: Yes: Normal Bowel Sounds, Soft Extremities: Yes: WNL (warm, no swelling, normal refill) Peripheral Pulses WNL: Yes Edema: No Neurological: Yes: Alert, Oriented, Cran Nerves II-XII Intact Labs Lab Results: CBC, BMP 12/06/16 05:30 12/06/16 05:30 Imaging - Results Chest X-ray: Report Reviewed, Image Reviewed (cxr clear. no edema or effusions noted) Assessment/Plan Asthma exacerbation -Still some wheezing but cxr looks clear -Currently on Symbicort 2puff bid, will continue -no systemic steroids to due hyperglycemia -Albuterol prn HFPEF -exacerbation 2/2 to asthma -CXR clear, no signs of edema -at likely dry weight 142 -Had IV Lasix yesterday but now back to home meds Torsamide 20 po daily -Last Echo in august, low/normal EF with 1+MR HTN -At baseline 151/80 -home meds Hydralazine 25 tid, coreg 40, nitro patch -f/u with pcp IDDM -Home meds-levemir and novolog CAD -2 stents placed post GA -ASA and prasugrel daily -Crestor 10 po daily -No ACEI due to renal disease- at abseline of 2.5 currently
--- NOTE | 2016-12-07 11:49 | PN ---
Progress Note (short form) - Note Progress Note: PULMONARY CONSULTATION DICTATED 12/07/16 IMP ACUTE HYPERCANEIC RESPIRATORY FAILURE COPD/ASTHMA EXCERBATION CHF ELEVATED TNI ASHD S/P VT,STENTS DM CKD HTN OSAS MORBID OBESITY PLAN INHALED BRONCHODILATORS IV STEROIDS ADD SINGULAR LASIX DAILY WTS NASAL O2 BIPAP AT NEON ELECTRICIAN PEAK PLOW MONITOR RENAL FUNCTION,LYTES ABG ON RA DR BENDER Problem List - Problems (1) Asthma exacerbation Code(s): J45.901 - UNSPECIFIED ASTHMA WITH (ACUTE) EXACERBATION (2) Chest pain Code(s): R07.9 - CHEST PAIN, UNSPECIFIED Qualifiers: Chest pain type: unspecified Qualified Code(s): R07.9 - Chest pain, unspecified (3) HTN (hypertension) Code(s): I10 - ESSENTIAL (PRIMARY) HYPERTENSION Qualifiers: Hypertension type: unspecified secondary hypertension Qualified Code(s) : I15.9 - Secondary hypertension, unspecified; I15 - Secondary hypertension (4) Anemia Code(s): D64.9 - ANEMIA, UNSPECIFIED (5) CAD (coronary artery disease) Code(s): I25.10 - ATHSCL HEART DISEASE OF [place] CORONARY ARTERY W/O ANG PCTRS (6) CHF (congestive heart failure) Code(s): I50.9 - HEART FAILURE, UNSPECIFIED (7) IDDM (insulin dependent diabetes mellitus) Code(s): E11.9 - TYPE 2 DIABETES MELLITUS WITHOUT COMPLICATIONS Z79.4 - MCC (CURRENT) USE OF INSULIN (8) VT, old Code(s): I25.2 - OLD MYOCARDIAL INFARCTION (9) Acute hypercapnic respiratory failure Code(s): J96.02 - ACUTE RESPIRATORY FAILURE WITH HYPERCAPNIA
[2016-12-07 11:50] LABS: CALCIUM 9.1 mg/dL (8.5-10.1)
[2016-12-07] MEDS: CARVEDILOL PHOSPHATE CR 20 MG CAPSULE (FP) PO SCH (12:23)
[2016-12-07] MEDS: DOCUSATE SODIUM 100 MG CAPSULE (FP) PO SCH (12:23)
[2016-12-07] MEDS: PRASUGREL HCL 10 MG TAB PO SCH (12:23)
[2016-12-07] MEDS: NITROGLYCERIN 0.2 MG/HOUR TD PATCH TD SCH (12:23)
--- NOTE | 2016-12-07 12:51 | CONS ---
DATE OF CONSULTATION: 12/07/2016 REFERRING PHYSICIAN: Zev Stanford MD The patient is a 61-year-old black female with a past medical history of ASHD, status post non-ST WI, status post stents, asthma/COPD, anemia, insulin-dependent diabetes mellitus, hypertension, congestive heart failure, history of smoking years ago, obstructive sleep apnea, admitted to [facility] on December 05 with complaint of increasing shortness of breath, chest tightness and persistent cough, blood pressure and hypertension. Patient states for the past few months she started noticing increasing shortness of breath and dyspnea on exertion. She also states she has had a cough for the past year or so and has been progressively getting worse. Denied any nausea or vomiting. Denies any fevers or chills. States that her chest tightness recently has been intermittent. She also states that the cough is nonproductive and she takes inhalers without any improvement. Of note is she is not able to take make inhalers including Spiriva, to which she developed an allergic reaction, as well as Daliresp, allergic reaction. Also unable to take Daliresp secondary to diarrhea and abdominal pains. Patient denies any recent travel. There is no DVT or PE in the past. She states she multiple allergies and very sensitive to medications. At this time she does not want to take steroids secondary to elevation of blood sugars. Past medical history, again, includes ASHD, status post WI, status post stents, COPD, asthma, insulin-dependent diabetes mellitus, CHF, hypertension, obstructive sleep apnea, and anemia, chronic kidney disease. REVIEW OF SYSTEMS: Positive orthopnea, positive dyspnea on exertion, positive cough--nonproductive, positive chest tightness. No nausea, no vomiting, no abdominal pain. No lower extremity edema. Prior medications include aspirin, NovoLog, Crestor, Feosol, Effient, Coreg, clonazepam, hydralazine, Levemir, Demadex, and nitroglycerin. Current medications include Symbicort, Tylenol, heparin, Klonopin, albuterol, Coreg, Colace, Apresoline, Crestor, NovoLog, Levemir, Feosol, Demadex, nitroglycerin, aspirin, and Effient. PHYSICAL EXAMINATION: General: The patient is an obese black female, well developed, well nourished, awake, alert. She is comfortable, in no acute distress. Vital Signs: She is currently afebrile. Blood pressure is 150/82. Respiratory rate is 14. O2 saturation is 99%. HEENT: Normocephalic, atraumatic. Neck: Supple. Heart: Regular, S1, S2. Chest: A few scattered bilateral wheezes. Abdomen: Soft. Bowel sounds are positive. Extremities: No cyanosis, edema. LABORATORIES: BUN is 54, creatinine 2.5, hemoglobin A1c is 10.2. Troponin 0.19. BNP is 1671. WBC is 7, hemoglobin 10.2, hematocrit 30.6, with a platelet count 241,000. Venous blood gas: pH of 7.24, pCO2 of 58, and a pO2 of 32. Chest x-ray shows no infiltrates, no effusions. IMPRESSION: 1. Dyspnea, likely multiple etiologies, one likely asthma exacerbation. 2. Probably mild decompensated congestive heart failure. 3. Arteriosclerotic heart disease, status post myocardial infarction, status post stents. 4. Hypertension. 5. Diabetes. 6. Obstructive sleep apnea. 7. Acute on chronic kidney disease. 8. Elevated TNI. PLAN: Inhaled bronchodilators, supplemental O2. We will start Singulair. Patient receiving steroids, also Lasix, as per Cardiology. Daily weights. BiPAP, although patient is refusing at this time. Monitor electrolytes, renal function. Thank you, we will follow closely with you. SHIVA BENDER M.D. [facility]/[id number]
[2016-12-07] MEDS ORDERED: INSULIN (NOVOLOG) ASPART 100 UNITS/ML 10ML VIAL ONE (21:05)
[2016-12-07] MEDS: ROSUVASTATIN CA 10 MG TABLET (FP) PO SCH (21:06)
[2016-12-07] MEDS: clonazePAM 0.5 MG TABLET PO PRN (21:06)
[2016-12-07] MEDS: MONTELUKAST NA 10 MG TABLET PO SCH (21:07)
[2016-12-07] MEDS: INSULIN DETEMIR 100 UNITS/ML MDV SQ SCH (21:07)
[2016-12-08] MEDS: hydrALAZINE HCL 25 MG TABLET (FP) PO SCH ×3 (06:06→21:54)
[2016-12-08] MEDS: INSULIN SLIDING SCALE (NOVOLOG) 1 VIAL SQ SCH ×4 (06:07→22:05)
[2016-12-08] MEDS: ALBUTEROL SO4 0.083% IH SOL 2.5 MG/3 ML VIAL.NEB. NEB PRN ×2 (07:07→10:10)
[2016-12-08 08:36] LABS: CALCIUM 8.8 mg/dL (8.5-10.1); CREATININE 3.4 mg/dL (0.55-1.02)
--- NOTE | 2016-12-08 09:19 | MSN ---
Progress Note (SOAP) - Subjective History of Present Illness: Paz Gonzalez is a 61 y/o female with a pmh of flash pulmonary edema, asthma, HFPEF , [place] s/p 2 stents, and malignant HTN who is on day 3 of admission after presenting with SOB, cough, and chest tightness. I saw and spoke to the pt this morning and she feels well. She continues to have a non-productive cough when she lies down, especially on her right side. She does have baseline orthopnea. The pt states she did ambulate up and down the [place] 5 times yesterday and did not get SOB but did rest between laps. She is currently on 2L nasal cannula but does not use home O2. We spoke about Singulair, which was added yesterday, but refused last night, however she now agrees to try it. She denies any chest pain, palpitations, SOB, swelling in legs , abdominal pain, dysuria, or weakness. - Current Medications Current Medications: Active Medications Acetaminophen (Tylenol -) 650 mg PO Q6H PRN PRN Reason: FEVER OR PAIN Last Admin: 12/05/16 21:43 Dose: 650 mg Albuterol Sulfate (Ventolin 0.083% Nebulizer Soln -) 1 amp NEB QID PRN PRN Reason: ASTHMA Last Admin: 12/08/16 07:07 Dose: 1 amp Aspirin (Asa -) 81 mg PO DAILY [facility] Last Admin: 12/07/16 09:41 Dose: 81 mg Budesonide/Formoterol Fumarate (Symbicort 160/4.5mcg -) 2 puff IH BID [facility] Last Admin: 12/07/16 21:09 Dose: 2 puff Carvedilol (Coreg Cr -) 40 mg PO DAILY [facility] Last Admin: 12/07/16 12:23 Dose: 40 mg Clonazepam (Klonopin -) 0.5 mg PO QID PRN PRN Reason: ANXIETY Last Admin: 12/07/16 21:06 Dose: 0.5 mg Docusate Sodium (Colace -) 100 mg PO DAILY [facility] Last Admin: 12/07/16 12:23 Dose: 100 mg Ferrous Sulfate (Feosol -) 325 mg PO BID [facility] Last Admin: 12/07/16 21:06 Dose: 325 mg Heparin Sodium (Porcine) (Heparin -) 5,000 unit SQ BID [facility] Last Admin: 12/07/16 21:06 Dose: 5,000 unit Hydralazine HCl (Apresoline -) 25 mg PO TID [facility] Last Admin: 12/08/16 06:06 Dose: 25 mg Insulin Aspart (Novolog Vial Sliding Scale -) 1 vial SQ [facility] PRN Reason: Protocol Last Admin: 12/08/16 06:07 Dose: Not Given Insulin Detemir (Levemir Vial) 30 units SQ HS [facility] Last Admin: 12/07/16 21:07 Dose: 30 units Montelukast Sodium (Singulair -) 10 mg PO HS [facility] Last Admin: 12/07/16 21:07 Dose: Not Given Nitroglycerin (Nitro-Dur Patch -) 0.2 mg TD DAILY [facility] Last Admin: 12/07/16 12:23 Dose: 0.2 mg Prasugrel (Effient -) 10 mg PO DAILY [facility] Last Admin: 12/07/16 12:23 Dose: 10 mg Rosuvastatin Calcium (Crestor -) 10 mg PO [facility] Last Admin: 12/07/16 21:06 Dose: 10 mg Torsemide (Demadex -) 20 mg PO DAILY [facility] Last Admin: 12/07/16 09:41 Dose: 20 mg - Objective Vital Signs: Vital Signs Temperature 98.7 F 12/08/16 06:00 Pulse Rate 79 12/08/16 06:00 Respiratory Rate 20 12/08/16 06:00 Blood Pressure 156/71 12/08/16 06:00 O2 Sat by Pulse Oximetry (%) 95 12/07/16 21:00 Constitutional: Yes: No Distress, Obese HENT: Yes: WNL (no rinnorhea, pharynx clear without erythema, dry mucous membranes) Cardiovascular: Yes: Regular Rate and Rhythm, S1, S2 Respiratory: Yes: CTA Bilaterally, Wheezes (expiratory wheezes more on right mid and lower lobes) Gastrointestinal: Yes: Normal Bowel Sounds, Soft Extremities: Yes: WNL (no edema, cyanosis, or clubbing) Peripheral Pulses WNL: Yes Edema: No Neurological: Yes: Alert, Oriented, Cran Nerves II-XII Intact Labs Lab Results: CBC, BMP 12/06/16 05:30 12/08/16 06:30 Imaging - Results Chest X-ray: Report Reviewed (No effusions or pulm edema noted), Image Reviewed Assessment/Plan Asthma exacerbation -Wheezing diffusely but greater on right, cxr shows mild hyperinflation -Will start on Solumedrol once IV80 -Singulair started yesterday by Dr. Huang, pt refused yesterday but will start today -Currently on Symbicort 2puff bid, will continue -Albuterol prn HFPEF -exacerbation 2/2 to asthma -CXR clear, no signs of edema in LE -at likely dry weight 242 -BUN/Cr up to 68/3.4, likely dehydrated a little from original fluid restriction -Had IV Lasix on day 1 but now back to home meds Torsamide 20 po daily -Last Echo in august, low/normal EF with 1+MR HTN -At baseline 151/80 -home meds Hydralazine 25 tid, coreg 40, nitro patch -f/u with pcp IDDM -Home meds-levemir and novolog CAD -2 stents placed post [place] -ASA and prasugrel daily -Crestor 10 po daily -No ACEI due to renal disease- at abseline of 2.5 currently
[2016-12-08] MEDS: BUDESONIDE/FORMETEROL FUMARATE 160/4.5 mcg INHALER IH SCH ×2 (09:45→21:53)
[2016-12-08] MEDS: HEPARIN NA (PORCINE) 5,000 UNITS/ML 1ML VIAL SQ SCH ×2 (09:45→21:54)
[2016-12-08] MEDS: FERROUS SO4 325 MG TABLET (FP) PO SCH ×2 (09:47→21:54)
[2016-12-08] MEDS: ASPIRIN 81 MG CHEWABLE TABLETS PO SCH (09:47)
[2016-12-08] MEDS: DOCUSATE SODIUM 100 MG CAPSULE (FP) PO SCH (09:47)
[2016-12-08] MEDS: PRASUGREL HCL 10 MG TAB PO SCH (09:47)
[2016-12-08] MEDS: NITROGLYCERIN 0.2 MG/HOUR TD PATCH TD SCH (09:48)
[2016-12-08] MEDS: CARVEDILOL PHOSPHATE CR 20 MG CAPSULE (FP) PO SCH (09:48)
[2016-12-08] MEDS: clonazePAM 0.5 MG TABLET PO PRN ×2 (10:45→22:04)
[2016-12-08] MEDS: TORSEMIDE 20 MG TABLET (FP) PO SCH (11:04)
[2016-12-08] MEDS ORDERED: methylPREDNISolone NA SUCC 40 MG/1 ML VIAL IVPB ONE (11:07)
[2016-12-08] MEDS ORDERED: ALBUTEROL SO4 2.5/IPRATROPIUM 0.5 INH SOL 3 ML VIAL.NEB. NEB SCH (11:15)
--- NOTE | 2016-12-08 11:49 | PN ---
Progress Note (short form) - Note Progress Note: PULMONARY Breathing about the same, no improvement from yesterday. +nonproductive cough and wheezing. Last Vital Signs Temp Pulse Resp BP Pulse Ox 98.7 F 79 20 156/71 95 12/08/16 06:00 12/08/16 06:00 12/08/16 06:00 12/08/16 06:00 12/07/16 21:00 Intake & Output 12/05/16 12/06/16 12/07/16 12/08/16 23:59 23:59 23:59 23:59 Intake Total 350 60 300 200 Output Total 100 Balance 250 60 300 200 Weight 240 lb 240 lb 6 oz 242 lb 242 lb Gen: tearful but in NAD Heart: RRR Lung: scattered wheezes, rhonchi Abd: soft, nontender Ext: no edema CBC, BMP 12/06/16 05:30 12/08/16 06:30 Active Medications Acetaminophen (Tylenol -) 650 mg PO Q6H PRN PRN Reason: FEVER OR PAIN Last Admin: 12/05/16 21:43 Dose: 650 mg Albuterol Sulfate (Ventolin 0.083% Nebulizer Soln -) 1 amp NEB QID PRN PRN Reason: ASTHMA Last Admin: 12/08/16 10:10 Dose: 1 amp Albuterol/Ipratropium (Duoneb -) 1 amp NEB Q4H [facility] Aspirin (Asa -) 81 mg PO DAILY [facility] Last Admin: 12/08/16 09:47 Dose: 81 mg Budesonide/Formoterol Fumarate (Symbicort 160/4.5mcg -) 2 puff IH BID [facility] Last Admin: 12/08/16 09:45 Dose: 2 puff Carvedilol (Coreg Cr -) 40 mg PO DAILY [facility] Last Admin: 12/08/16 09:48 Dose: 40 mg Clonazepam (Klonopin -) 0.5 mg PO QID PRN PRN Reason: ANXIETY Last Admin: 12/08/16 10:45 Dose: 0.5 mg Docusate Sodium (Colace -) 100 mg PO DAILY [facility] Last Admin: 12/08/16 09:47 Dose: 100 mg Ferrous Sulfate (Feosol -) 325 mg PO BID [facility] Last Admin: 12/08/16 09:47 Dose: 325 mg Heparin Sodium (Porcine) (Heparin -) 5,000 unit SQ BID [facility] Last Admin: 12/08/16 09:45 Dose: 5,000 unit Hydralazine HCl (Apresoline -) 25 mg PO TID [facility] Last Admin: 12/08/16 06:06 Dose: 25 mg Insulin Aspart (Novolog Vial Sliding Scale -) 1 vial SQ [facility] PRN Reason: Protocol Last Admin: 12/08/16 11:03 Dose: Not Given Insulin Detemir (Levemir Vial) 30 units S[address] [facility] Last Admin: 12/07/16 21:07 Dose: 30 units Methylprednisolone Sodium Succinate (Solu-Medrol -) 80 mg IVPB ONCE ONE Stop: 12/08/16 11:08 Montelukast Sodium (Singulair -) 10 mg PO [facility] Last Admin: 12/07/16 21:07 Dose: Not Given Nitroglycerin (Nitro-Dur Patch -) 0.2 mg TD DAILY [facility] Last Admin: 12/08/16 09:48 Dose: 0.2 mg Prasugrel (Effient -) 10 mg PO DAILY [facility] Last Admin: 12/08/16 09:47 Dose: 10 mg Rosuvastatin Calcium (Crestor -) 10 mg PO HS [facility] Last Admin: 12/07/16 21:06 Dose: 10 mg Torsemide (Demadex -) 20 mg PO DAILY [facility] Last Admin: 12/08/16 11:04 Dose: 20 mg A/P Acute Asthma/COPD Exacerbation LV Diastolic Dysfunction CAD s/p stents +Troponins Acute on Chronic Renal Failure DM Morbid Obesity KATINA - IV medrol - inhaled bronchodilators - would hold off on further diuresis as creatinine rising - monitor urine output, creatinine - monitor peak flow - BiPAP if pt allows - DVT prophylaxis
[2016-12-08] MEDS ORDERED: ALBUTEROL SO4 0.083% IH SOL 2.5 MG/3 ML VIAL.NEB. NEB PRN (11:54)
[2016-12-08] MEDS: methylPREDNISolone NA SUCC 125 MG/2 ML VIAL IVPB SCH ×2 (12:41→17:09)
--- NOTE | 2016-12-08 14:31 | PN ---
Physical Exam: SUBJECTIVE: Patient seen and examined at bedside. She c/o persistent wheezing when lying down. However, she does not wheeze when sitting up and standing. Denied fever, chills, chest pain, abd pain, bowel or urinary sx. OBJECTIVE: Vital Signs Period Temp Pulse Resp BP Sys/Shankar Pulse Ox Last 24 Hr 98.0 F-98.7 F 65-79 18-20 122-156/71-76 95 GENERAL: The patient is awake, alert, oriented to time and person, not in cardiopulmonary distress NECK: no JVD LUNGS: CTAB HEART: RRR, S1, S2 without murmur, rub or gallop. ABDOMEN: Soft, nontender, nondistended, normoactive bowel sounds, no guarding, no rebound, no hepatosplenomegaly, no masses. EXTREMITIES: trace edema. Laboratory Results - last 24 hr 12/07/16 12/07/16 12/08/16 16:41 21:00 06:03 Sodium Potassium Chloride Carbon Dioxide Anion Gap BUN Creatinine POC Glucometer 207 198 103 Random Glucose Calcium 12/08/16 12/08/16 06:30 11:01 Sodium 139 Potassium 4.5 Chloride 102 Carbon Dioxide 26 Anion Gap 11 BUN 68 H Creatinine 3.4 H POC Glucometer 146 Random Glucose 101 D Calcium 8.8 Active Medications Generic Name Dose Route Start Last Admin Trade Name Freq PRN Reason Stop Dose Admin Acetaminophen 650 mg 12/05/16 21:27 12/05/16 21:43 Tylenol - PO 650 mg Q6H PRN Administration FEVER OR PAIN Albuterol Sulfate 1 amp 12/08/16 11:54 Ventolin 0.083% Nebulizer Soln - NEB Q4H PRN ASTHMA Albuterol/Ipratropium 1 amp 12/08/16 12:30 Duoneb - NEB QIDR [facility] Aspirin 81 mg 12/06/16 10:00 12/08/16 09:47 Asa - PO 81 mg DAILY [facility] Administration Budesonide/Formoterol Fumarate 2 puff 12/06/16 13:00 12/08/16 09:45 Symbicort 160/4.5mcg - IH 2 puff BID [facility] Administration Carvedilol 40 mg 12/06/16 10:00 12/08/16 09:48 Coreg Cr - PO 40 mg DAILY [facility] Administration Clonazepam 0.5 mg 12/05/16 21:11 12/08/16 10:45 Klonopin - PO 0.5 mg QID PRN Administration ANXIETY Docusate Sodium 100 mg 12/07/16 11:00 12/08/16 09:47 Colace - PO 100 mg DAILY [facility] Administration Ferrous Sulfate 325 mg 12/05/16 22:00 12/08/16 09:47 Feosol - PO 325 mg BID [facility] Administration Heparin Sodium (Porcine) 5,000 unit 12/05/16 22:00 12/08/16 09:45 Heparin - SQ 5,000 unit BID [facility] Administration Hydralazine HCl 25 mg 12/06/16 09:13 12/08/16 14:01 Apresoline - PO 25 mg TID [facility] Administration Insulin Aspart 1 vial 12/06/16 16:30 12/08/16 11:03 Novolog Vial Sliding Scale - SQ Not Given ACHS [facility] Protocol Insulin Detemir 30 units 12/05/16 22:00 12/07/16 21:07 Levemir Vial SQ 30 units HS [facility] Administration Methylprednisolone Sodium Succinate 60 mg 12/08/16 12:00 12/08/16 12:41 Solu-Medrol - IVPB 60 mg Q8H-IV [facility] Administration Montelukast Sodium 10 mg 12/07/16 22:00 12/07/16 21:07 Singulair - PO Not Given HS [facility] Nitroglycerin 0.2 mg 12/06/16 10:00 12/08/16 09:48 Nitro-Dur Patch - TD 0.2 mg DAILY [facility] Administration Prasugrel 10 mg 12/06/16 10:00 12/08/16 09:47 Effient - PO 10 mg DAILY [facility] Administration Rosuvastatin Calcium 10 mg 12/05/16 22:00 12/07/16 21:06 Crestor - PO 10 mg HS [facility] Administration Torsemide 20 mg 12/07/16 10:00 12/08/16 11:04 Demadex - PO 20 mg DAILY [facility] Administration ASSESSMENT/PLAN: 61 yo F h/o pulmonary edema while euvolemic, malignant HTN, multi drug resistant HTN, IDDM, HFPEF, [place] s/p 2 stents, asthma and anemia admitted for asthma and CHF exacerbations. Dyspnea 2/2 Acute asthma exacerbation and CHF exacerbation - elevated BNP on admission, however, at baseline * no sign of fluid overload * hold torsemide due to worsening Cr - one dose of solumedrol 80mg IVPUSH * reassess breathing - duoneb [facility] and PRN Q4H - cont. symbicort, ventolin, singulair - 3L O2 - f/u peak flow Malignant HTN - visual change; seeing spots - cont. coreg, nitro, hydralazine CAD s/p PCI - stable - troponins at baseline - cont. asa, pragurel HLD - cont. crestor CKD - at baseline - cont. to monitor IDDM - levemid 30 units HS - sliding scale FEN - No IVF - hold torsemide and cont. to monitor Cr - diabetic diet Prophlaxis - DVT: Heparin - GI: not indicated - deconditioning: early ambulation Dispo: active d/c planning for tomorrow Visit type - Emergency Visit Emergency Visit: No - New Patient This patient is new to me today: No - Critical Care Critical Care patient: No - Discharge Referral Referred to [facility] No
--- NOTE | 2016-12-08 14:33 | PN ---
Teaching Attending Note Name of Resident: Danny Galvez ATTENDING PHYSICIAN STATEMENT I saw and evaluated the patient. I reviewed the resident's note and discussed the case with the resident. I agree with the resident's findings and plan as documented. SUBJECTIVE:c/o dyspnea that worsens on exertion. assoc with nonproductive cough. denies CP, fever, chills, N/V/C/D OBJECTIVE: Last Vital Signs Temp Pulse Resp BP Pulse Ox 98.0 F 66 18 122/72 95 12/08/16 13:01 12/08/16 13:01 12/08/16 13:01 12/08/16 13:01 12/07/16 21:00 General mild dyspnic at rest CV S1 S2 RRR no murmur/rub/gallop Lungs diffuse wheezing no crackles ASSESSMENT AND PLAN: 61yo F with PMH HTN, DM, CAD s/p stents x2, asthma and CKD presented to the ER and was admitted for further evaluation of their emergent condition 1. Acute hypercapnic respiratory failure- saturating 98% on 2L. ordered stat nebulizer treatment. will give solumedrol 80mg IVPB x1 and monitor. encourage use of neb treatments as needed. pulmonary on board. no signs of volume overload. hold diuretics. cont inhlaers, nebs prn. supplemental oxygen to maintain spO2 >90% 2. ACute on CKD- possible diuretic induced. now being held. trend levels 3. HTN urgency- now improved. medications adjusted and titrated to optimize control. cardio on board 4. DVT ppx- hep sq
--- NOTE | 2016-12-08 15:05 | PN ---
Progress Note, Physician Chief Complaint: chf History of Present Illness: remains with wheezing primarily when laying back in bed. o/w no sob. no fluid in stomach/abd distension (her chf sx) no leg swelling no cp, palpit - Current Medication List Current Medications: Active Medications Acetaminophen (Tylenol -) 650 mg PO Q6H PRN PRN Reason: FEVER OR PAIN Last Admin: 12/05/16 21:43 Dose: 650 mg Albuterol Sulfate (Ventolin 0.083% Nebulizer Soln -) 1 amp NEB Q4H PRN PRN Reason: ASTHMA Albuterol/Ipratropium (Duoneb -) 1 amp NEB QIDR LALO Aspirin (Asa -) 81 mg PO DAILY REPLACED BY [facility] Last Admin: 12/08/16 09:47 Dose: 81 mg Budesonide/Formoterol Fumarate (Symbicort 160/4.5mcg -) 2 puff IH BID REPLACED BY [facility] Last Admin: 12/08/16 09:45 Dose: 2 puff Carvedilol (Coreg Cr -) 40 mg PO DAILY REPLACED BY [facility] Last Admin: 12/08/16 09:48 Dose: 40 mg Clonazepam (Klonopin -) 0.5 mg PO QID PRN PRN Reason: ANXIETY Last Admin: 12/08/16 10:45 Dose: 0.5 mg Docusate Sodium (Colace -) 100 mg PO DAILY REPLACED BY [facility] Last Admin: 12/08/16 09:47 Dose: 100 mg Ferrous Sulfate (Feosol -) 325 mg PO BID REPLACED BY [facility] Last Admin: 12/08/16 09:47 Dose: 325 mg Heparin Sodium (Porcine) (Heparin -) 5,000 unit SQ BID REPLACED BY [facility] Last Admin: 12/08/16 09:45 Dose: 5,000 unit Hydralazine HCl (Apresoline -) 25 mg PO TID REPLACED BY [facility] Last Admin: 12/08/16 14:01 Dose: 25 mg Insulin Aspart (Novolog Vial Sliding Scale -) 1 vial SQ ACHS REPLACED BY [facility] PRN Reason: Protocol Last Admin: 12/08/16 11:03 Dose: Not Given Insulin Detemir (Levemir Vial) 30 units SQ HS REPLACED BY [facility] Last Admin: 12/07/16 21:07 Dose: 30 units Methylprednisolone Sodium Succinate (Solu-Medrol -) 60 mg IVPB Q8H-IV REPLACED BY [facility] Last Admin: 12/08/16 12:41 Dose: 60 mg Montelukast Sodium (Singulair -) 10 mg PO [facility] Last Admin: 12/07/16 21:07 Dose: Not Given Nitroglycerin (Nitro-Dur Patch -) 0.2 mg TD DAILY REPLACED BY [facility] Last Admin: 12/08/16 09:48 Dose: 0.2 mg Prasugrel (Effient -) 10 mg PO DAILY REPLACED BY [facility] Last Admin: 12/08/16 09:47 Dose: 10 mg Rosuvastatin Calcium (Crestor -) 10 mg PO [facility] Last Admin: 12/07/16 21:06 Dose: 10 mg Torsemide (Demadex -) 20 mg PO DAILY REPLACED BY [facility] Last Admin: 12/08/16 11:04 Dose: 20 mg - Objective Vital Signs: Vital Signs Temperature 98.0 F 12/08/16 13:01 Pulse Rate 66 12/08/16 13:01 Respiratory Rate 18 12/08/16 13:01 Blood Pressure 122/72 12/08/16 13:01 O2 Sat by Pulse Oximetry (%) 98 12/08/16 09:00 Constitutional: Yes: No Distress, Calm, Obese Cardiovascular: Yes: Regular Rate and Rhythm, S1, S2. No: Gallop, Murmur Respiratory: Yes: Regular, CTA Bilaterally. No: Accessory Muscle Use, Rales, Wheezes Extremities: No: Cold Edema: No Neurological: Yes: Alert, Oriented Psychiatric: No: Agitated Labs: CBC, BMP 12/06/16 05:30 12/08/16 06:30 INR, PTT INR 1.07 (0.82-1.09) 12/05/16 17:20 Assessment/Plan Echo 09/14/16: Low nl LVEF. RV not well seen. 1+ MR. Echo 03/2015: TDS, normal LV/RVF, no sig valv abn Dobut stress echo 10/2015: 7.34 min. 83% MPHR. HTN response. No EKG changes. TDS apex, portions of AW and basal PW not well seen. No ischemia, appropriate EF augmentation. (post PCI) cxr: clear lungs Assessment/Plan 61 year old f with known CAD--h/o NSTEMI '13 s/p LAD KAREN PCI 09/2013, and prox LCx KAREN PCI 2014, HTN, lone afib/PSVT, MR, pHTN, KATINA, NAFLD, HPL, CKD, anemia, IDDM who presents to the ED with shortness of breath. SOB/acute decompensated diastolic CHF (acute on chronic HFPEF) - hx of "flash" pulmonary edema in the past--felt to be a combo of diast dysf and ischemic heart disease. Dry weight 247-250 lbs. - no signs acs - cxr 12/05 with diffuse interstitial pattern most prominent in lower lung garcia , with L > R small effusions - CXR 12/06 signif improved - 12/06: sob much improved after iv lasix, changed back to po torsemide 20qd - 12/07: wt up 2 lbs, signif wheezing still though suspect this is sec to her bronchospasm/asthma, given none of her other usual s/sx of decomp chf are present - was up to 248 lbs at home recently, incr'd torsemide 20 to 40 qd--came down to 245 but remained with sx's of chf so came to hosp - will give dose of IV lasix today and reassess wt and creat in am--anticipate she will be ready for d/c tomorrow chf-junior, on torsemide 20-40 po qd -12/08: wt unchanged (242) after iv lasix yest, bun/creat yest came back elevated 60s/3.0 (after lasix already given), up higher today -she is euvolemic/intravasc vol depleted--hold lasix, give 1L of NS at 50cc/hr-- rpt bun/creat in am, expect it will come down -ongoing wheezing (worse when lying down) is due to known asthma/bronchopsasm - 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 exacerbating bronchospasm--will decr to 20mg qd CAD--s/p prox LCx KAREN PCI on 04/29/2015 for crescendo angina, prior mLAD stent patent, prior PTCA ed D2 [place], residual 70-80% distal RCA disease unchanged from prior cath 2012--left for medical rx - stable, no signs acs - trop in borderline range, flat trend, consistent with prior baseline troponin values, not consistent with acs - Continue home DAPT with ASA and Effient. cont crestor, coreg, NTG patch. - No ACEI given fluctuating renal function. HTN: - intolerant of multiple BP meds before--diovan, micardis, verap, norvasc, nifedipine, nisoldipine, catapres path - bp initially elevated here, usual w.c. pattern when acutely ill. -going down on coreg dose, as above (wheezing related?) -cont home nitro, hydralazine--may need higher hydral dose if bp trends up on lower coreg, but causes hypotension at times at home and takes hydral prn...defer for now HPL: - tolerating crestor 10 mg, con't. Myalgias w Atorva/Simva and high dose crestor KATINA / Mod PHTN - compliant with CPAP at home. - diastolic dysfunction likely also contributing to pHTN. ARF / CKD--scr in the 2.2--2.6 range - in baseline range, monitor with diuresis Remote PAF and PSVT - lone AF episode in setting of dobutamine, no recurrence. No AC thought to be indicated.
[2016-12-08] MEDS ORDERED: SODIUM CHLORIDE 1,000 ML IV ONE (15:15)
[2016-12-08] MEDS: ALBUTEROL SO4 2.5/IPRATROPIUM 0.5 INH SOL 3 ML VIAL.NEB. NEB SCH ×2 (17:00→23:27)
[2016-12-08] MEDS ORDERED: PT OWN MED DRAWER 7, Y5N ONE (20:53)
[2016-12-08] MEDS: INSULIN DETEMIR 100 UNITS/ML MDV SQ SCH (21:53)
[2016-12-08] MEDS: MONTELUKAST NA 10 MG TABLET PO SCH (21:54)
[2016-12-08] MEDS: ROSUVASTATIN CA 10 MG TABLET (FP) PO SCH (21:54)
[2016-12-08] MEDS ORDERED: INSULIN (NOVOLOG) ASPART 100 UNITS/ML 10ML VIAL ONE (22:08)
[2016-12-09] MEDS: methylPREDNISolone NA SUCC 125 MG/2 ML VIAL IVPB SCH ×2 (01:41→10:22)
[2016-12-09] MEDS ORDERED: INSULIN (NOVOLOG) ASPART 100 UNITS/ML 10ML VIAL ONE ×2 (06:03→10:56)
[2016-12-09] MEDS: INSULIN SLIDING SCALE (NOVOLOG) 1 VIAL SQ SCH ×4 (06:04→21:37)
[2016-12-09] MEDS: hydrALAZINE HCL 25 MG TABLET (FP) PO SCH ×3 (06:04→21:30)
[2016-12-09] MEDS: ALBUTEROL SO4 2.5/IPRATROPIUM 0.5 INH SOL 3 ML VIAL.NEB. NEB SCH ×3 (07:02→17:45)
--- NOTE | 2016-12-09 07:58 | PN ---
Physical Exam: SUBJECTIVE: Patient seen and examined at bedside. She reported feeling much better and finally had a good night sleep. She stated she might have gained weight from the IVF and requested it to be stopped. Still wheezes a little when lying down. Received breathing treatment around 745am. Denied fever, chills, chest pain, abd pain, bowel or urinary sx. OBJECTIVE: Vital Signs Period Temp Pulse Resp BP Sys/Shankar Pulse Ox Last 24 Hr 97.8 F-98.2 F -76 18-22 122-153/-76 95-98 GENERAL: The patient is awake, alert, oriented to time and person, not in cardiopulmonary distress NECK: no JVD LUNGS: CTAB (after duoneb treatment) HEART: RRR, S1, S2 without murmur, rub or gallop. ABDOMEN: Soft, nontender, nondistended, normoactive bowel sounds, no guarding, no rebound, no hepatosplenomegaly, no masses. EXTREMITIES: trace edema. Laboratory Results - last 24 hr 12/08/16 12/08/16 12/08/16 06:30 11:01 16:53 Sodium 139 Potassium 4.5 Chloride 102 Carbon Dioxide 26 Anion Gap 11 BUN 68 H Creatinine 3.4 H POC Glucometer 146 202 Random Glucose 101 D Calcium 8.8 12/09/16 05:51 Sodium Potassium Chloride Carbon Dioxide Anion Gap BUN Creatinine POC Glucometer 238 Random Glucose Calcium Active Medications Generic Name Dose Route Start Last Admin Trade Name Freq PRN Reason Stop Dose Admin Acetaminophen 650 mg 12/05/16 21:27 12/05/16 21:43 Tylenol - PO 650 mg Q6H PRN Administration FEVER OR PAIN Albuterol Sulfate 1 amp 12/08/16 11:54 Ventolin 0.083% Nebulizer Soln - NEB Q4H PRN ASTHMA Albuterol/Ipratropium 1 amp 12/08/16 12:30 12/09/16 07:02 Duoneb - NEB 1 amp QIDR LALO Administration Aspirin 81 mg 12/06/16 10:00 12/08/16 09:47 Asa - PO 81 mg DAILY LALO Administration Budesonide/Formoterol Fumarate 2 puff 12/06/16 13:00 12/08/16 21:53 Symbicort 160/4.5mcg - IH 2 puff BID LALO Administration Carvedilol 20 mg 12/09/16 10:00 Coreg Cr - PO DAILY LALO Clonazepam 0.5 mg 12/05/16 21:11 12/08/16 22:04 Klonopin - PO 0.5 mg QID PRN Administration ANXIETY Docusate Sodium 100 mg 12/07/16 11:00 12/08/16 09:47 Colace - PO 100 mg DAILY LALO Administration Ferrous Sulfate 325 mg 12/05/16 22:00 12/08/16 21:54 Feosol - PO 325 mg BID LALO Administration Heparin Sodium (Porcine) 5,000 unit 12/05/16 22:00 12/08/16 21:54 Heparin - SQ 5,000 unit BID LALO Administration Hydralazine HCl 25 mg 12/06/16 09:13 12/09/16 06:04 Apresoline - PO 25 mg TID LALO Administration Sodium Chloride 1,000 mls @ 50 mls/hr 12/08/16 15:15 12/08/16 17:09 Normal Saline - IV 12/09/16 11:14 50 mls/hr ASDIR ONE Administration Insulin Aspart 1 vial 12/06/16 16:30 12/09/16 06:04 Novolog Vial Sliding Scale - SQ 4 units ACHS LALO Administration Protocol Insulin Detemir 30 units 12/05/16 22:00 12/08/16 21:53 Levemir Vial SQ 30 units HS LALO Administration Methylprednisolone Sodium Succinate 60 mg 12/08/16 12:00 12/09/16 01:41 Solu-Medrol - IVPB 60 mg Q8H-IV LALO Administration Montelukast Sodium 10 mg 12/07/16 22:00 12/08/16 21:54 Singulair - PO 10 mg HS LALO Administration Nitroglycerin 0.2 mg 12/06/16 10:00 12/08/16 09:48 Nitro-Dur Patch - TD 0.2 mg DAILY LALO Administration Prasugrel 10 mg 12/06/16 10:00 12/08/16 09:47 Effient - PO 10 mg DAILY LALO Administration Rosuvastatin Calcium 10 mg 12/05/16 22:00 12/08/16 21:54 Crestor - PO 10 mg HS LALO Administration Torsemide 20 mg 12/07/16 10:00 12/08/16 11:04 Demadex - PO 20 mg DAILY LALO Administration ASSESSMENT/PLAN: 61 yo F h/o pulmonary edema while euvolemic, malignant HTN, multi drug resistant HTN, IDDM, HFPEF, [place] s/p 2 stents, asthma and anemia admitted for asthma and CHF exacerbations. Dyspnea 2/2 Acute asthma exacerbation and CHF exacerbation - elevated BNP on admission, however, at baseline * no sign of fluid overload * hold torsemide due to worsening Cr - tapered solu-medrol to 40mg BID * will transition to PO with quick taper after tomorrow AM's IV dose - duoneb LALO and PRN Q4H - cont. symbicort, ventolin, singulair Malignant HTN - visual change; seeing spots - cont. coreg, nitro, hydralazine CAD s/p PCI - stable - troponins at baseline - cont. asa, pragurel HLD - cont. crestor CKD - at baseline - cont. to monitor IDDM - levemid 30 units HS - sliding scale FEN - cont. IVF 42ml - hold torsemide and cont. to monitor Cr - diabetic diet Prophlaxis - DVT: Heparin - GI: not indicated - deconditioning: early ambulation Dispo: d/c tomorrow Visit type - Emergency Visit Emergency Visit: No - New Patient This patient is new to me today: No - Critical Care Critical Care patient: No - Discharge Referral Referred to [facility] Med P.C.: No
[2016-12-09 08:10] LABS: CALCIUM 8.7 mg/dL (8.5-10.1); CREATININE 3.3 mg/dL (0.55-1.02)
--- NOTE | 2016-12-09 08:25 | MSN ---
Progress Note (SOAP) - Subjective History of Present Illness: Paz Gonzalez is a 61 y/o female with a pmh of flash pulmonary edema, asthma, HFPEF , [place] s/p 2 stents, and malignant HTN who is on day 4 of admission after presenting with SOB, cough, and chest tightness. I saw and spoke to the pt this morning and she is feeling much better. She has no complaints from overnight and slept well lying on her side without any coughing or wheezing. The pt ambulated less yesterday due to increased cough but is OOB and walking early today. She states that she has put on 2 pounds since yesterday and can feel it in her belly. She is currently on room air and is satting at 97 percent. Her glucose spiked to 452 last evening and she was given novolog 10 units. She is very well informed of her conditions and keeps track daily of her weight, o2, and glucose. She denies any chest pain, palpitations, SOB, swelling in legs, abdominal pain, dysuria, or weakness. - Current Medications Current Medications: Active Medications Acetaminophen (Tylenol -) 650 mg PO Q6H PRN PRN Reason: FEVER OR PAIN Last Admin: 12/05/16 21:43 Dose: 650 mg Albuterol Sulfate (Ventolin 0.083% Nebulizer Soln -) 1 amp NEB Q4H PRN PRN Reason: ASTHMA Albuterol/Ipratropium (Duoneb -) 1 amp NEB QIDR [facility] Last Admin: 12/09/16 07:02 Dose: 1 amp Aspirin (Asa -) 81 mg PO DAILY [facility] Last Admin: 12/08/16 09:47 Dose: 81 mg Budesonide/Formoterol Fumarate (Symbicort 160/4.5mcg -) 2 puff IH BID [facility] Last Admin: 12/08/16 21:53 Dose: 2 puff Carvedilol (Coreg Cr -) 20 mg PO DAILY [facility] Clonazepam (Klonopin -) 0.5 mg PO QID PRN PRN Reason: ANXIETY Last Admin: 12/08/16 22:04 Dose: 0.5 mg Docusate Sodium (Colace -) 100 mg PO DAILY [facility] Last Admin: 12/08/16 09:47 Dose: 100 mg Ferrous Sulfate (Feosol -) 325 mg PO BID [facility] Last Admin: 12/08/16 21:54 Dose: 325 mg Heparin Sodium (Porcine) (Heparin -) 5,000 unit SQ BID [facility] Last Admin: 12/08/16 21:54 Dose: 5,000 unit Hydralazine HCl (Apresoline -) 25 mg PO TID [facility] Last Admin: 12/09/16 06:04 Dose: 25 mg Insulin Aspart (Novolog Vial Sliding Scale -) 1 vial SQ [facility] PRN Reason: Protocol Last Admin: 12/09/16 06:04 Dose: 4 units Insulin Detemir (Levemir Vial) 30 units SQ HS [facility] Last Admin: 12/08/16 21:53 Dose: 30 units Methylprednisolone Sodium Succinate (Solu-Medrol -) 60 mg IVPB Q8H-IV [facility] Last Admin: 12/09/16 01:41 Dose: 60 mg Montelukast Sodium (Singulair -) 10 mg PO HS [facility] Last Admin: 12/08/16 21:54 Dose: 10 mg Nitroglycerin (Nitro-Dur Patch -) 0.2 mg TD DAILY [facility] Last Admin: 12/08/16 09:48 Dose: 0.2 mg Prasugrel (Effient -) 10 mg PO DAILY [facility] Last Admin: 12/08/16 09:47 Dose: 10 mg Rosuvastatin Calcium (Crestor -) 10 mg PO HS [facility] Last Admin: 12/08/16 21:54 Dose: 10 mg Torsemide (Demadex -) 20 mg PO DAILY [facility] Last Admin: 12/08/16 11:04 Dose: 20 mg - Objective Vital Signs: Vital Signs Temperature 97.8 F 12/09/16 06:00 Pulse Rate 76 12/09/16 06:00 Respiratory Rate 20 12/09/16 06:00 Blood Pressure 153/66 12/09/16 06:00 O2 Sat by Pulse Oximetry (%) 95 12/08/16 21:00 Constitutional: Yes: No Distress, Calm Cardiovascular: Yes: Regular Rate and Rhythm, S1, S2 Respiratory: Yes: Regular, CTA Bilaterally (no wheezes or ronchi heard.) Gastrointestinal: Yes: Normal Bowel Sounds, Soft Musculoskeletal: Yes: WNL Peripheral Pulses WNL: Yes Edema: No Neurological: Yes: Alert, Oriented, Cran Nerves II-XII Intact Labs Lab Results: CBC, BMP 12/06/16 05:30 Assessment/Plan Asthma exacerbation -Lungs CTA, no wheezes or ronchi -SiO2 97% room air this morning -On Solumedrol 60 q8. Will decrease today, possibly q12 -d/c tomorrow on medrol dose pack -Singulair started on day 2 -Currently on Symbicort 2puff bid, will continue -Albuterol prn HFPEF -exacerbation 2/2 to asthma -Weight increased to 244 since yesterday (2 lbs) -Was given NS@50mls until 750ml. IVF stopped -Torsamide was held due to elevated creatinine, will wait for bmp today -CXR clear, no signs of edema in LE -BUN/Cr up to 68/3.4, likely dehydrated a little from original fluid restriction -Last Echo in august, low/normal EF with 1+MR HTN -At near baseline 153/66 -home meds Hydralazine 25 tid, coreg 40, nitro patch -f/u with pcp IDDM -Home meds-levemir and novolog CAD -2 stents placed post [place] -ASA and prasugrel daily -Crestor 10 po daily -No ACEI due to renal disease
[2016-12-09] MEDS ORDERED: PT OWN MED DRAWER 7, Y5N ONE (10:12)
[2016-12-09] MEDS: ASPIRIN 81 MG CHEWABLE TABLETS PO SCH (10:20)
[2016-12-09] MEDS: DOCUSATE SODIUM 100 MG CAPSULE (FP) PO SCH (10:20)
[2016-12-09] MEDS: CARVEDILOL PHOSPHATE CR 20 MG CAPSULE (FP) PO SCH (10:21)
[2016-12-09] MEDS: FERROUS SO4 325 MG TABLET (FP) PO SCH ×2 (10:21→21:30)
[2016-12-09] MEDS: PRASUGREL HCL 10 MG TAB PO SCH (10:21)
[2016-12-09] MEDS: NITROGLYCERIN 0.2 MG/HOUR TD PATCH TD SCH (10:22)
[2016-12-09] MEDS: BUDESONIDE/FORMETEROL FUMARATE 160/4.5 mcg INHALER IH SCH ×2 (10:22→21:38)
[2016-12-09] MEDS: HEPARIN NA (PORCINE) 5,000 UNITS/ML 1ML VIAL SQ SCH ×2 (10:22→21:31)
--- NOTE | 2016-12-09 11:31 | PN ---
Progress Note (short form) - Note Progress Note: s: no cp, palps, dizzy; sob better today, less wheezing - Current Medication List Current Medications Generic Name Dose Route Start Last Admin Trade Name Freq PRN Reason Stop Dose Admin Acetaminophen 650 mg 12/05/16 21:27 12/05/16 21:43 Tylenol - PO 650 mg Q6H PRN Administration FEVER OR PAIN Albuterol Sulfate 1 amp 12/08/16 11:54 Ventolin 0.083% Nebulizer Soln - NEB Q4H PRN ASTHMA Albuterol/Ipratropium 1 amp 12/08/16 12:30 12/09/16 07:02 Duoneb - NEB 1 amp QIDR LALO Administration Aspirin 81 mg 12/06/16 10:00 12/09/16 10:20 Asa - PO 81 mg DAILY LALO Administration Budesonide/Formoterol Fumarate 2 puff 12/06/16 13:00 12/09/16 10:22 Symbicort 160/4.5mcg - IH 2 puff BID LALO Administration Carvedilol 20 mg 12/09/16 10:00 12/09/16 10:21 Coreg Cr - PO 20 mg DAILY LALO Administration Clonazepam 0.5 mg 12/05/16 21:11 12/08/16 22:04 Klonopin - PO 0.5 mg QID PRN Administration ANXIETY Docusate Sodium 100 mg 12/07/16 11:00 12/09/16 10:20 Colace - PO 100 mg DAILY LALO Administration Ferrous Sulfate 325 mg 12/05/16 22:00 12/09/16 10:21 Feosol - PO 325 mg BID LALO Administration Heparin Sodium (Porcine) 5,000 unit 12/05/16 22:00 12/09/16 10:22 Heparin - SQ 5,000 unit BID LALO Administration Hydralazine HCl 25 mg 12/06/16 09:13 12/09/16 06:04 Apresoline - PO 25 mg TID LALO Administration Insulin Aspart 1 vial 12/06/16 16:30 12/09/16 06:04 Novolog Vial Sliding Scale - SQ 4 units ACHS LALO Administration Protocol Insulin Detemir 30 units 12/05/16 22:00 12/08/16 21:53 Levemir Vial SQ 30 units HS LALO Administration Methylprednisolone Sodium Succinate 60 mg 12/08/16 12:00 12/09/16 10:22 Solu-Medrol - IVPB 60 mg Q8H-IV [facility]ALO Administration Montelukast Sodium 10 mg 12/07/16 22:00 12/08/16 21:54 Singulair - PO 10 mg HS LALO Administration Nitroglycerin 0.2 mg 12/06/16 10:00 12/09/16 10:22 Nitro-Dur Patch - TD 0.2 mg DAILY LLAO Administration Prasugrel 10 mg 12/06/16 10:00 12/09/16 10:21 Effient - PO 10 mg DAILY LALO Administration Rosuvastatin Calcium 10 mg 12/05/16 22:00 12/08/16 21:54 Crestor - PO 10 mg HS LALO Administration Torsemide 20 mg 12/07/16 10:00 12/08/16 11:04 Demadex - PO 20 mg DAILY LALO Administration - Objective Vital Signs: Vital Signs Period Temp Pulse Resp BP Sys/Shankar Pulse Ox Last 24 Hr 97.8 F-98.2 F 66-81 18-22 122-153/66-76 95-98 Constitutional: Yes: No Distress, Calm, Obese Cardiovascular: Yes: Regular Rate and Rhythm, S1, S2. No: Gallop, Murmur Respiratory: Yes: Regular, mild wheeze diffusely. No: Accessory Muscle Use, Rales, Wheezes Extremities: No: Cold Edema: No Neurological: Yes: Alert, Oriented Psychiatric: No: Agitated no jaundice diaphoresis Labs: CBC, BMP 12/06/16 05:30 12/09/16 06:55 Echo 09/14/16: Low nl LVEF. RV not well seen. 1+ MR. Echo 03/2015: TDS, normal LV/RVF, no sig valv abn Dobut stress echo 10/2015: 7.34 min. 83% MPHR. HTN response. No EKG changes. TDS apex, portions of AW and basal PW not well seen. No ischemia, appropriate EF augmentation. (post PCI) Assessment/Plan 61 year old f with known CAD--h/o NSTEMI '13 s/p LAD KAREN PCI 09/2013, and prox LCx KAREN PCI 2014, HTN, lone afib/PSVT, [place], pHTN, KATINA, NAFLD, HPL, CKD, anemia, IDDM who presents to the ED with shortness of breath. SOB/acute decompensated diastolic CHF (acute on chronic HFPEF) - hx of "flash" pulmonary edema in the past--felt to be a combo of diast dysf and ischemic heart disease. Dry weight 247-250 lbs. - no signs acs - cxr 12/05 with diffuse interstitial pattern most prominent in lower lung garcia , with L > R small effusions - CXR 12/06 signif improved - 12/06: sob much improved after iv lasix, changed back to po torsemide 20qd - 12/07: wt up 2 lbs, signif wheezing still though suspect this is sec to her bronchospasm/asthma, given none of her other usual s/sx of decomp chf are present - was up to 248 lbs at home recently, incr'd torsemide 20 to 40 qd--came down to 245 but remained with sx's of chf so came to hosp - will give dose of IV lasix today and reassess wt and creat in am--anticipate she will be ready for d/c tomorrow chf-junior, on torsemide 20-40 po qd -12/08: wt unchanged (242) after iv lasix yest, bun/creat yest came back elevated 60s/3.0 (after lasix already given), up higher today -she is euvolemic/intravasc vol depleted--hold lasix, give 1L of NS at 50cc/hr -12/09: cr slightly better today. 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 exacerbating bronchospasm--decr to 20mg qd here -tx per pmd/pulm CAD--s/p prox LCx KAREN PCI on 04/29/2015 for crescendo angina, prior mLAD stent patent, prior PTCA ed D2 [place], residual 70-80% distal RCA disease unchanged from prior cath 2012--left for medical rx - stable, no signs acs - trop in borderline range, flat trend, consistent with prior baseline troponin values, not consistent with acs - Continue home DAPT with ASA and Effient. cont crestor, coreg, NTG patch. - No ACEI given fluctuating renal function. HTN: - intolerant of multiple BP meds before--diovan, micardis, verap, norvasc, nifedipine, nisoldipine, catapres path - bp initially elevated here, usual pattern when acutely ill. -cont home nitro, hydralazine--may need higher hydral dose if bp trends up on lower coreg, but causes hypotension at times at home and takes hydral prn...defer for now HPL: - tolerating crestor 10 mg, con't. Myalgias w Atorva/Simva and high dose crestor KATINA / Mod PHTN - compliant with CPAP at home. - diastolic dysfunction likely also contributing to pHTN. ARF / CKD--scr in the 2.2--2.6 range - cr above baseline, plan as above Remote PAF and PSVT - lone AF episode in setting of dobutamine, no recurrence. No AC thought to be indicated.
--- NOTE | 2016-12-09 12:35 | PN ---
Progress Note, Physician History of Present Illness: PULMONARY ALERT,FEELING BETTER,SOB IMPROVING - Current Medication List Current Medications: Active Medications Acetaminophen (Tylenol -) 650 mg PO Q6H PRN PRN Reason: FEVER OR PAIN Last Admin: 12/05/16 21:43 Dose: 650 mg Albuterol Sulfate (Ventolin 0.083% Nebulizer Soln -) 1 amp NEB Q4H PRN PRN Reason: ASTHMA Albuterol/Ipratropium (Duoneb -) 1 amp NEB QIDR [facility] Last Admin: 12/09/16 11:36 Dose: 1 amp Aspirin (Asa -) 81 mg PO DAILY [facility] Last Admin: 12/09/16 10:20 Dose: 81 mg Budesonide/Formoterol Fumarate (Symbicort 160/4.5mcg -) 2 puff IH BID [facility] Last Admin: 12/09/16 10:22 Dose: 2 puff Carvedilol (Coreg Cr -) 20 mg PO DAILY [facility] Last Admin: 12/09/16 10:21 Dose: 20 mg Clonazepam (Klonopin -) 0.5 mg PO QID PRN PRN Reason: ANXIETY Last Admin: 12/08/16 22:04 Dose: 0.5 mg Docusate Sodium (Colace -) 100 mg PO DAILY [facility] Last Admin: 12/09/16 10:20 Dose: 100 mg Ferrous Sulfate (Feosol -) 325 mg PO BID [facility] Last Admin: 12/09/16 10:21 Dose: 325 mg Heparin Sodium (Porcine) (Heparin -) 5,000 unit SQ BID [facility] Last Admin: 12/09/16 10:22 Dose: 5,000 unit Hydralazine HCl (Apresoline -) 25 mg PO TID [facility] Last Admin: 12/09/16 06:04 Dose: 25 mg Insulin Aspart (Novolog Vial Sliding Scale -) 1 vial SQ ACHS [facility] PRN Reason: Protocol Last Admin: 12/09/16 11:52 Dose: 8 units Insulin Detemir (Levemir Vial) 30 units SQ [facility] Last Admin: 12/08/16 21:53 Dose: 30 units Methylprednisolone Sodium Succinate (Solu-Medrol -) 60 mg IVPB Q8H-IV [facility] Last Admin: 12/09/16 10:22 Dose: 60 mg Montelukast Sodium (Singulair -) 10 mg PO HS [facility] Last Admin: 12/08/16 21:54 Dose: 10 mg Nitroglycerin (Nitro-Dur Patch -) 0.2 mg TD DAILY [facility] Last Admin: 12/09/16 10:22 Dose: 0.2 mg Prasugrel (Effient -) 10 mg PO DAILY [facility] Last Admin: 12/09/16 10:21 Dose: 10 mg Rosuvastatin Calcium (Crestor -) 10 mg PO HS [facility] Last Admin: 12/08/16 21:54 Dose: 10 mg Torsemide (Demadex -) 20 mg PO DAILY [facility] Last Admin: 12/08/16 11:04 Dose: 20 mg - Objective Vital Signs: Vital Signs Temperature 97.8 F 12/09/16 06:00 Pulse Rate 81 12/09/16 09:54 Respiratory Rate 20 12/09/16 06:00 Blood Pressure 153/66 12/09/16 06:00 O2 Sat by Pulse Oximetry (%) 98 12/09/16 09:54 Constitutional: Yes: Well Nourished, Calm Eyes: Yes: WNL HENT: Yes: WNL Neck: Yes: WNL Cardiovascular: Yes: Regular Rate and Rhythm, S1, S2 Respiratory: Yes: Wheezes (LESS WHEEZES LIZZETTE) Gastrointestinal: Yes: WNL Extremities: Yes: WNL Edema: No Labs: CBC, BMP 12/06/16 05:30 12/09/16 06:55 INR, PTT INR 1.07 (0.82-1.09) 12/05/16 17:20 Problem List - Problems (1) Asthma exacerbation Code(s): J45.901 - UNSPECIFIED ASTHMA WITH (ACUTE) EXACERBATION (2) Chest pain Code(s): R07.9 - CHEST PAIN, UNSPECIFIED Qualifiers: Chest pain type: unspecified Qualified Code(s): R07.9 - Chest pain, unspecified (3) HTN (hypertension) Code(s): I10 - ESSENTIAL (PRIMARY) HYPERTENSION Qualifiers: Hypertension type: unspecified secondary hypertension Qualified Code(s) : I15.9 - Secondary hypertension, unspecified; I15 - Secondary hypertension (4) Anemia Code(s): D64.9 - ANEMIA, UNSPECIFIED (5) CAD (coronary artery disease) Code(s): I25.10 - ATHSCL HEART DISEASE OF [place] CORONARY ARTERY W/O ANG PCTRS (6) CHF (congestive heart failure) Code(s): I50.9 - HEART FAILURE, UNSPECIFIED (7) IDDM (insulin dependent diabetes mellitus) Code(s): E11.9 - TYPE 2 DIABETES MELLITUS WITHOUT COMPLICATIONS Z79.4 - CORPORATE LEGAL SECRETARY (CURRENT) USE OF INSULIN (8) [place], old Code(s): I25.2 - OLD MYOCARDIAL INFARCTION (9) Acute hypercapnic respiratory failure Code(s): J96.02 - ACUTE RESPIRATORY FAILURE WITH HYPERCAPNIA Assessment/Plan A/P Acute Asthma/COPD Exacerbation LV Diastolic Dysfunction CAD s/p stents +Troponins Acute on Chronic Renal Failure DM Morbid Obesity KATINA - taper steroids - inhaled bronchodilators - would hold off on further diuresis as creatinine rising - monitor urine output, creatinine - monitor peak flow - BiPAP if pt allows - DVT prophylaxis DR BENDER
--- NOTE | 2016-12-09 15:10 | PN ---
Teaching Attending Note Name of Resident: Danny Galvez ATTENDING PHYSICIAN STATEMENT I saw and evaluated the patient. I reviewed the resident's note and discussed the case with the resident. I agree with the resident's findings and plan as documented. SUBJECTIVE:currently asymptomatic. requested IVF to be turned off earlier today because of "puffiness in my belly". denies CP, fever, chills, SOB, or cough OBJECTIVE: Last Vital Signs Temp Pulse Resp BP Pulse Ox 97.5 F L 80 18 154/83 98 12/09/16 14:00 12/09/16 14:00 12/09/16 14:00 12/09/16 09:00 12/09/16 09:54 General NAD, seen ambulating the floor without difficulty CV S1 S2 RRR no murmur/rub/gallop Lungs CTA B/L no wheezing/rales/rhonchi Abdomen soft NT/ND no fluid wave. obese ASSESSMENT AND PLAN: 61yo F with PMH HTN, DM, CAD s/p stents x2, asthma and CKD presented to the ER and was admitted for further evaluation of their emergent condition 1. Acute hypercapnic respiratory failure- saturating 98% on RA. on solumedrol 60mg Q8H. will titrate down as tolerated. no signs of volume overload. Cont inhlaers, nebs prn. supplemental oxygen to maintain spO2 >90% 2. ACute on CKD- possible diuretic induced.started on low dose IVF, was stopped but agrees to re-starting at this time. will trend Cr. hold diuretics 3. Hyperglycemia- likely steroid induced. cont iss for now. will trend and adjust as needed. 3. HTN urgency- now improved. medications adjusted and titrated to optimize control. cardio on board 4. DVT ppx- hep sq
[2016-12-09] MEDS: SODIUM CHLORIDE 1,000 ML IV SCH (16:25)
[2016-12-09] MEDS: MONTELUKAST NA 10 MG TABLET PO SCH (21:30)
[2016-12-09] MEDS: ROSUVASTATIN CA 10 MG TABLET (FP) PO SCH (21:30)
[2016-12-09] MEDS: methylPREDNISolone NA SUCC 40 MG/1 ML VIAL IVPB SCH (21:30)
[2016-12-09] MEDS: INSULIN DETEMIR 100 UNITS/ML MDV SQ SCH (21:30)
[2016-12-09] MEDS: clonazePAM 0.5 MG TABLET PO PRN (21:30)
[2016-12-10] MEDS: ALBUTEROL SO4 2.5/IPRATROPIUM 0.5 INH SOL 3 ML VIAL.NEB. NEB SCH ×2 (00:05→07:40)
[2016-12-10] MEDS ORDERED: INSULIN (NOVOLOG) ASPART 100 UNITS/ML 10ML VIAL ONE ×3 (06:01→16:28)
[2016-12-10] MEDS: hydrALAZINE HCL 25 MG TABLET (FP) PO SCH ×2 (06:05→14:40)
[2016-12-10] MEDS: ACETAMINOPHEN 325 MG TABLET (FP) PO PRN (06:05)
[2016-12-10] MEDS: INSULIN SLIDING SCALE (NOVOLOG) 1 VIAL SQ SCH ×3 (06:15→16:31)
[2016-12-10 09:01] LABS: CALCIUM 8.7 mg/dL (8.5-10.1)
[2016-12-10] MEDS ORDERED: PT OWN MED DRAWER 7, Y5N ONE (10:30)
--- NOTE | 2016-12-10 10:35 | PN ---
Progress Note (short form) - Note Progress Note: s: no cp, palps, dizzy; sob better today, less wheezing; feels well walking halls - Current Medication List Current Medications Generic Name Dose Route Start Last Admin Trade Name Freq PRN Reason Stop Dose Admin Acetaminophen 650 mg 12/05/16 21:27 12/10/16 06:05 Tylenol - PO 650 mg Q6H PRN Administration FEVER OR PAIN Albuterol Sulfate 1 amp 12/08/16 11:54 Ventolin 0.083% Nebulizer Soln - NEB Q4H PRN ASTHMA Aspirin 81 mg 12/06/16 10:00 12/09/16 10:20 Asa - PO 81 mg DAILY [facility] Administration Budesonide/Formoterol Fumarate 2 puff 12/06/16 13:00 12/09/16 21:38 Symbicort 160/4.5mcg - IH Not Given BID [facility] Carvedilol 20 mg 12/09/16 10:00 12/09/16 10:21 Coreg Cr - PO 20 mg DAILY [facility] Administration Clonazepam 0.5 mg 12/05/16 21:11 12/09/16 21:30 Klonopin - PO 0.5 mg QID PRN Administration ANXIETY Docusate Sodium 100 mg 12/07/16 11:00 12/09/16 10:20 Colace - PO 100 mg DAILY [facility] Administration Ferrous Sulfate 325 mg 12/05/16 22:00 12/09/16 21:30 Feosol - PO 325 mg BID [facility] Administration Heparin Sodium (Porcine) 5,000 unit 12/05/16 22:00 12/09/16 21:31 Heparin - SQ 5,000 unit BID [facility] Administration Hydralazine HCl 25 mg 12/06/16 09:13 12/10/16 06:05 Apresoline - PO 25 mg TID [facility] Administration Sodium Chloride 1,000 mls @ 42 mls/hr 12/09/16 15:45 12/09/16 16:25 Normal Saline - IV 42 mls/hr ASDIR [facility] Administration Insulin Aspart 1 vial 12/06/16 16:30 12/10/16 06:15 Novolog Vial Sliding Scale - SQ 6 units ACHS [facility] Administration Protocol Insulin Detemir 30 units 12/05/16 22:00 12/09/16 21:30 Levemir Vial SQ 30 units HS [facility] Administration Methylprednisolone Sodium Succinate 40 mg 12/09/16 22:00 12/09/16 21:30 Solu-Medrol - IVPB 40 mg BID [facility] Administration Montelukast Sodium 10 mg 12/07/16 22:00 12/09/16 21:30 Singulair - PO 10 mg HS [facility] Administration Nitroglycerin 0.2 mg 12/06/16 10:00 12/09/16 10:22 Nitro-Dur Patch - TD 0.2 mg DAILY [facility] Administration Prasugrel 10 mg 12/06/16 10:00 12/09/16 10:21 Effient - PO 10 mg DAILY [facility] Administration Rosuvastatin Calcium 10 mg 12/05/16 22:00 12/09/16 21:30 Crestor - PO 10 mg HS [facility] Administration Torsemide 20 mg 12/07/16 10:00 12/08/16 11:04 Demadex - PO 20 mg DAILY [facility] Administration - Objective Vital Signs: Vital Signs Period Temp Pulse Resp BP Sys/Shankar Pulse Ox Last 24 Hr 97.5 F-98.4 F 70-80 18-20 157-180/76-84 95 Constitutional: Yes: No Distress, Calm, Obese Cardiovascular: Yes: Regular Rate and Rhythm, S1, S2. No: Gallop, Murmur Respiratory: Yes: Regular, mild wheeze diffusely. No: Accessory Muscle Use, Rales, Wheezes Extremities: No: Cold Edema: trace le edema bl Neurological: Yes: Alert, Oriented Psychiatric: No: Agitated no jaundice diaphoresis Labs: CBC, BMP 12/06/16 05:30 12/10/16 06:30 Echo 09/14/16: Low nl LVEF. RV not well seen. 1+ MR. Echo 03/2015: TDS, normal LV/RVF, no sig valv abn Dobut stress echo 10/2015: 7.34 min. 83% MPHR. HTN response. No EKG changes. TDS apex, portions of AW and basal PW not well seen. No ischemia, appropriate EF augmentation. (post PCI) Assessment/Plan 61 year old f with known CAD--h/o NSTEMI '13 s/p LAD KAREN PCI 09/2013, and prox LCx KAREN PCI 2014, HTN, lone afib/PSVT, MR, pHTN, KATINA, NAFLD, HPL, CKD, anemia, IDDM who presents to the ED with shortness of breath. SOB/acute decompensated diastolic CHF (acute on chronic HFPEF) - hx of "flash" pulmonary edema in the past--felt to be a combo of diast dysf and ischemic heart disease. Dry weight 247-250 lbs. - no signs acs - cxr 12/05 with diffuse interstitial pattern most prominent in lower lung garcia , with L > R small effusions - CXR 12/06 signif improved - 12/06: sob much improved after iv lasix, changed back to po torsemide 20qd - 12/07: wt up 2 lbs, signif wheezing still though suspect this is sec to her bronchospasm/asthma, given none of her other usual s/sx of decomp chf are present - was up to 248 lbs at home recently, incr'd torsemide 20 to 40 qd--came down to 245 but remained with sx's of chf so came to hosp - will give dose of IV lasix today and reassess wt and creat in am--anticipate she will be ready for d/c tomorrow chf-jnuior, on torsemide 20-40 po qd -12/08: wt unchanged (242) after iv lasix yest, bun/creat yest came back elevated 60s/3.0 (after lasix already given), up higher today -she is euvolemic/intravasc vol depleted--hold lasix, give 1L of NS at 50cc/hr -12/09: cr slightly better today. cont ivfs as doing and monitor cr, if not improving or rising will hold torsemide temporarily 12/10: cr improving after ivfs and holding torsemide but now starting to gain wt and some volume. 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 exacerbating bronchospasm--decr to 20mg qd here -tx per pmd/pulm CAD--s/p prox LCx KAREN PCI on 04/29/2015 for crescendo angina, prior mLAD stent patent, prior PTCA ed D2 OK, residual 70-80% distal RCA disease unchanged from prior cath 2012--left for medical rx - stable, no signs acs - trop in borderline range, flat trend, consistent with prior baseline troponin values, not consistent with acs - Continue home DAPT with ASA and Effient. cont crestor, coreg, NTG patch. - No ACEI given fluctuating renal function. HTN: - intolerant of multiple BP meds before--diovan, micardis, verap, norvasc, nifedipine, nisoldipine, catapres path - bp initially elevated here, usual pattern when acutely ill. -cont home nitro, hydralazine--may need higher hydral dose if bp trends up on lower coreg, but causes hypotension at times at home and takes hydral prn...defer for now HPL: - tolerating crestor 10 mg, con't. Myalgias w Atorva/Simva and high dose crestor KATINA / Mod PHTN - compliant with CPAP at home. - diastolic dysfunction likely also contributing to pHTN. ARF / CKD--scr in the 2.2--2.6 range - cr above baseline but improving, plan as above Remote PAF and PSVT - lone AF episode in setting of dobutamine, no recurrence. No AC thought to be indicated. cardiac junior stable for dc
[2016-12-10] MEDS: PRASUGREL HCL 10 MG TAB PO SCH (10:41)
[2016-12-10] MEDS: CARVEDILOL PHOSPHATE CR 20 MG CAPSULE (FP) PO SCH (10:41)
[2016-12-10] MEDS: NITROGLYCERIN 0.2 MG/HOUR TD PATCH TD SCH (10:41)
[2016-12-10] MEDS: FERROUS SO4 325 MG TABLET (FP) PO SCH (10:42)
[2016-12-10] MEDS: ASPIRIN 81 MG CHEWABLE TABLETS PO SCH (10:42)
[2016-12-10] MEDS: HEPARIN NA (PORCINE) 5,000 UNITS/ML 1ML VIAL SQ SCH (10:42)
[2016-12-10] MEDS: methylPREDNISolone NA SUCC 40 MG/1 ML VIAL IVPB SCH (10:42)
[2016-12-10] MEDS: BUDESONIDE/FORMETEROL FUMARATE 160/4.5 mcg INHALER IH SCH (10:42)
[2016-12-10] MEDS: DOCUSATE SODIUM 100 MG CAPSULE (FP) PO SCH (10:42)
--- NOTE | 2016-12-10 12:15 | PN ---
Progress Note (short form) - Note Progress Note: PULMONARY Feels well. Breathing, cough improving. Less wheezing. Last Vital Signs Temp Pulse Resp BP Pulse Ox 98.3 F 76 20 180/84 95 12/10/16 06:00 12/10/16 06:00 12/10/16 06:00 12/10/16 06:00 12/09/16 21:00 Gen: NAD at rest Heart: RRR Lung: no wheezes, rhonchi appreciated Abd: soft, nontender Ext: no edema CBC, BMP 12/06/16 05:30 12/10/16 06:30 Active Medications Acetaminophen (Tylenol -) 650 mg PO Q6H PRN PRN Reason: FEVER OR PAIN Last Admin: 12/10/16 06:05 Dose: 650 mg Albuterol Sulfate (Ventolin 0.083% Nebulizer Soln -) 1 amp NEB Q4H PRN PRN Reason: ASTHMA Aspirin (Asa -) 81 mg PO DAILY [facility] Last Admin: 12/10/16 10:42 Dose: 81 mg Budesonide/Formoterol Fumarate (Symbicort 160/4.5mcg -) 2 puff IH BID [facility] Last Admin: 12/10/16 10:42 Dose: 2 puff Carvedilol (Coreg Cr -) 20 mg PO DAILY [facility] Last Admin: 12/10/16 10:41 Dose: 20 mg Clonazepam (Klonopin -) 0.5 mg PO QID PRN PRN Reason: ANXIETY Last Admin: 12/09/16 21:30 Dose: 0.5 mg Docusate Sodium (Colace -) 100 mg PO DAILY [facility] Last Admin: 12/10/16 10:42 Dose: 100 mg Ferrous Sulfate (Feosol -) 325 mg PO BID [facility] Last Admin: 12/10/16 10:42 Dose: 325 mg Heparin Sodium (Porcine) (Heparin -) 5,000 unit SQ BID [facility] Last Admin: 12/10/16 10:42 Dose: 5,000 unit Hydralazine HCl (Apresoline -) 25 mg PO TID [facility] Last Admin: 12/10/16 06:05 Dose: 25 mg Sodium Chloride (Normal Saline -) 1,000 mls @ 42 mls/hr IV ASDIR [facility] Last Admin: 12/09/16 16:25 Dose: 42 mls/hr Insulin Aspart (Novolog Vial Sliding Scale -) 1 vial SQ [facility] PRN Reason: Protocol Last Admin: 12/10/16 11:41 Dose: 4 units Insulin Detemir (Levemir Vial) 30 units SQ [facility] Last Admin: 12/09/16 21:30 Dose: 30 units Methylprednisolone Sodium Succinate (Solu-Medrol -) 40 mg IVPB BID [facility] Last Admin: 12/10/16 10:42 Dose: 40 mg Montelukast Sodium (Singulair -) 10 mg PO [facility] Last Admin: 12/09/16 21:30 Dose: 10 mg Nitroglycerin (Nitro-Dur Patch -) 0.2 mg TD DAILY [facility] Last Admin: 12/10/16 10:41 Dose: 0.2 mg Prasugrel (Effient -) 10 mg PO DAILY [facility] Last Admin: 12/10/16 10:41 Dose: 10 mg Rosuvastatin Calcium (Crestor -) 10 mg PO [facility] Last Admin: 12/09/16 21:30 Dose: 10 mg Torsemide (Demadex -) 20 mg PO DAILY [facility] Last Admin: 12/08/16 11:04 Dose: 20 mg A/P Acute Asthma/COPD Exacerbation LV Diastolic Dysfunction CAD s/p stents +Troponins Acute on Chronic Renal Failure DM Morbid Obesity KATINA - can change steroids to PO - inhaled bronchodilators - monitor urine output, creatinine - monitor peak flow - DVT prophylaxis - can d/c home from pulmonary standpoint with steroid taper
[2016-12-10 12:25] VITALS: BP 159/78
[2016-12-10 13:22] VITALS: PULSE 74; TEMP 97.7
--- NOTE | 2016-12-10 13:27 | PN ---
Teaching Attending Note Name of Resident: Danny Galvez ATTENDING PHYSICIAN STATEMENT I saw and evaluated the patient. I reviewed the resident's note and discussed the case with the resident. I agree with the resident's findings and plan as documented. SUBJECTIVE:currently asymptomatic. states she starting to feel swelling in her belly and extremities. denies CP, SOB, fever, chills, N/V/C/D OBJECTIVE: Last Vital Signs Temp Pulse Resp BP Pulse Ox 97.7 F 74 21 159/78 98 12/10/16 13:20 12/10/16 13:20 12/10/16 13:20 12/10/16 09:00 12/10/16 09:00 General NAD, CV S1 S2 RRR no murmur/rub/gallop Lungs CTA B/L no wheezing/rales/rhonchi Abdomen soft NT/ND no fluid wave. obese extremites trace pitting edema ASSESSMENT AND PLAN: 61yo F with PMH HTN, DM, CAD s/p stents x2, asthma and CKD presented to the ER and was admitted for further evaluation of their emergent condition 1. Acute hypercapnic respiratory failure- saturating 98% on RA. will transition to medrol dose pack. will need to f/u with pulm as outpatient. Cont inhlaers, nebs prn. 2. Pedal edema- likely combination of steroids and ivf. d/c ivf and re-start toresimde on discharge 3. ACute on CKD- possible diuretic induced.started on low dose IVF, and Cr improved. will re-start toresmide on discharge 4. DM- likely steroid induced. cont home regimen as pt quickly titrates off steroids. expect sugars to improve. cont iss for now. 5. HTN urgency- now improved. medications adjusted and titrated to optimize control. cardio on board 6. DVT ppx- hep sq 7. d/c home on medrol dose pack
--- NOTE | 2016-12-10 14:55 | DS ---
Physical Exam: SUBJECTIVE: Patient seen and examined at bedside. She reported feeling better with little wheezing. Denied fever, chills, chest pain, abd pain, bowel or urinary sx. OBJECTIVE: Vital Signs Period Temp Pulse Resp BP Sys/Shankar Pulse Ox Last 24 Hr 97.7 F-98.4 F 64-76 18-21 157-180/76-84 95-98 PHYSICAL EXAM GENERAL: The patient is awake, alert, oriented to time and person, not in cardiopulmonary distress NECK: no JVD LUNGS: CTAB HEART: RRR, S1, S2 without murmur, rub or gallop. ABDOMEN: Soft, nontender, nondistended, normoactive bowel sounds, no guarding, no rebound, no hepatosplenomegaly, no masses. EXTREMITIES: trace edema. LABS Laboratory Results - last 24 hr 12/09/16 12/09/16 12/10/16 17:07 21:28 06:07 Sodium Potassium Chloride Carbon Dioxide Anion Gap BUN Creatinine POC Glucometer 314 278 296 Random Glucose Calcium 12/10/16 12/10/16 06:30 11:40 Sodium 136 Potassium 4.6 Chloride 104 Carbon Dioxide 22 Anion Gap 10 BUN 76 H Creatinine 3.0 H POC Glucometer 207 Random Glucose 198 H Calcium 8.7 HOSPITAL COURSE: Date of Admission:12/05/16 61 yo F with PMH of plash pulmonary edema while euvolemic, malignant HTN, multi drug resistant HTN, IDDM, HFPEF, ND s/p 2 stents, asthma and anemia, who was admitted to the hospital due to shortness of breath, chest tightness and cough. In the ED, she's found to have elevated blood pressure which was brought down to 160 systolic. TTE 09/14/16 showed low normal EF, EKG showed no acute st changes, CXR showed bibasilar opacities similar to findings 1 year ago but much better than in august. After she's admitted to medical floor, she was treated for acute asthma exacerbation and CHF exacerbation. Patient was treated with solu-medrol which was tapered to 40mg BID before discharge, duoneb standing and PRN. As with her uncontrolled HTN, raw material handler recommended continuing all her home meds for now. Her diabetic medications were also resumed during stay. She will continue PO steroid taper after discharge. Patient is expected to follow up with her PMD , raw material handler and nitric acid plant operator within a week. Date of Discharge: 12/10/16 Minutes to complete discharge: 45 Discharge Summary Reason For Visit: ASTHMA CHEST PAIN HTN Current Active Problems Acute pulmonary edema with congestive heart failure (Acute) Asthma exacerbation (Acute) HTN (hypertension) (Chronic) Condition: Stable - Instructions Diet, Activity, Other Instructions: Instruction for continuing care: You were admitted to hospital because you had asthma flare up and heart failure and you were treated with steroids and breathing medicines. The lung and heart doctors have seen you and recommended that you continue to take all your asthma and blood pressure medications. After you leave the hospital, please last picker "medrol pack" from [employer] and take it as instructed on the package. Please also follow up with your primary care doctor (Dr. Bruner), lung doctor ( Dr. Oliveira) and heart doctor (Dr. Marquez) within a week. Referrals: William Brunre MD [Staff Physician] - 1 Week Amandeep Marquez MD [Staff Physician] - 1 Week Rommel Oliveira MD [Staff Physician] - 1 Week Disposition: HOME - Home Medications Comprehensive Discharge Medication List: Ambulatory Orders Aspirin [ASA -] 81 mg PO DAILY #1 tab 03/06/13 Insulin (Novolog) [Novolog Flexpen -] 0 units SQ ACHS 01/16/14 Rosuvastatin Calcium [Crestor] 10 mg PO HS 01/16/14 Ferrous Sulfate [Feosol] 325 mg PO BID #0 ud 05/08/15 Prasugrel Hydrochloride [Effient -] 10 mg PO DAILY #0 tab 05/08/15 Carvedilol Phosphate [Coreg Cr -] 20 mg PO HS 10/25/15 Clonazepam 0.5 mg PO QID PRN 10/25/15 Albuterol 0.083% Nebulizer Bibiana [Ventolin 0.083% Nebulizer Soln -] 1 neb NEB QID 09/14/16 Insulin (Levemir) [Levemir Vial] 30 units SQ HS ml 09/18/16 Torsemide [Demadex -] 20 mg PO DAILY #60 tablet 09/18/16 Nitroglycerin Patch [Nitro-Dur Patch -] 0.2 mg TD DAILY 12/05/16 Hydralazine HCl [Apresoline -] 25 mg PO TID tablet 12/10/16 Methylprednisolone [Medrol Dose [place]wood] 4 mg PO ASDIR #21 tablet 12/10/16 This patient is new to me today: No Emergency Visit: No Critical Care patient: No - Discharge Referral Referred to [facility] No
[2016-12-10] MEDS: SODIUM CHLORIDE 1,000 ML IV SCH (16:31)
== END 2016-12-10 18:05 | disposition home or self-care (01) | DRG 291 ==
LOC: JER 17:02 → JERBED 18:50 → J4W 20:20 → OBSVTOIN 21:05 → J6S 12-07 14:38
PROVIDERS: ADMIT Internal Medicine; ATTEND Internal Medicine
DX: I13.0 Hypertensive heart and chronic kidney disease with heart failure and stage 1 through stage 4 chronic kidney disease, or unspecified chronic kidney disease (principal); I50.33 Acute on chronic diastolic (congestive) heart failure; J96.02 Acute respiratory failure with hypercapnia; J45.901 Unspecified asthma with (acute) exacerbation; J44.1 Chronic obstructive pulmonary disease with (acute) exacerbation; N17.9 Acute kidney failure, unspecified; I47.1 Supraventricular tachycardia; I25.10 Atherosclerotic heart disease of native coronary artery without angina pectoris; Z98.61 Coronary angioplasty status; N18.9 Chronic kidney disease, unspecified; E11.9 Type 2 diabetes mellitus without complications; G47.33 Obstructive sleep apnea (adult) (pediatric); Z68.39 Body mass index [BMI] 39.0-39.9, adult; Z79.4 Long term (current) use of insulin; I27.2 Other secondary pulmonary hypertension; I48.0 Paroxysmal atrial fibrillation; E78.5 Hyperlipidemia, unspecified; I25.2 Old myocardial infarction; E66.01 Morbid (severe) obesity due to excess calories; E87.70 Fluid overload, unspecified
CPT/HCPCS: 36415; 71010-TC; 71020-TC; 80048; 80053; 82465; 82550; 82803; 83036; 83605; 83735; 83880; 84100; 84439; 84443; 84484; 85025; 85027; 85610; 86850; 86900; 86901; 87040; 93005; 93010; 94640; 97116-GP; 97161-GP; 99285-25; G0378; J1644

== ENCOUNTER → 2017-02-23 | Emergency (ER) | payer OTHER ==
[~2017-02-23] MED LIST: FUROSEMIDE 40 MG/4 ML INJECTABLE VIAL IVPUSH ONE; FUROSEMIDE 40 MG/4 ML INJECTABLE VIAL ONE; RAPID SEQUENCE INTUBATION KIT NR ONE; TETRACAINE 0.5% OPHTH SOLN 2 ML BOTTLE ONE; hydrALAZINE HCL 25 MG TABLET (FP) ONE
[2017-02-23 19:38] VITALS: BMI 39.9
--- NOTE | 2017-02-23 20:23 | PDOC ---
History of Present Illness - General History Source: Patient Exam Limitations: No Limitations - History of Present Illness Initial Comments: 02/23/17 20:32 The patient is a 62 year old female with significant past medical history of [place] s/p 2 stents, hypertension, hyperlipidemia, IDDM, asthma and anemia who presents to the ED with fluid in my lungs 1 hour prior to arrival. Patient reports she was sitting down watching television when the sensation suddenly occured. She also has complaints of mild SOB. Denies diaphoresis, lightheadedness, chest pain, jaw pain, shoulder pain, arm pain, leg swelling, nausea, or vomiting. The patient denies fever, chills, cough, abdominal pain, and diarrhea. Allergies: penicillin, oral/IV contrast Social History: No alcohol, tobacco, or drug use reported. Past Surgical History: s/p cardiac stents x2, c section, eye surgery, colloid scar removal, knee surgery PCP: Dr. William Bruner Master Sheet Clerk: Dr. Con Chen <Funmi Foster - Last Filed: 02/23/17 20:32> - General History Source: Patient <Braxton Chun - Last Filed: 02/23/17 23:43> - General Chief Complaint: Congestive Heart Failure Stated Complaint: SHORTNESS OF BREATH Time Seen by Provider: 02/23/17 20:19 Past History <Funmi Foster - Last Filed: 02/23/17 20:32> - Past Medical History Anemia: Yes Asthma: Yes Cancer: No Cardiac Disorders: Yes ([place] 2013, 1 stent, CHF) CVA: No COPD: No CHF: Yes Dementia: No Diabetes: Yes GI Disorders: No Disorders: Yes (elevated creatinine) HTN: Yes Hypercholesterolemia: Yes Liver Disease: No Seizures: No Thyroid Disease: No - Surgical History Abdominal Surgery: No Appendectomy: No Cardiac Surgery: Yes (2 stents 04/29/2015) Cholecystectomy: No Lung Surgery: No Neurologic Surgery: No Orthopedic Surgery: Yes (arthroscopy sep 08 @ [facility]) - Immunization History Immunization Up to Date: Yes - Psycho/Social/Smoking Cessation Hx Anxiety: No Suicidal Ideation: No Smoking Status: No Smoking History: Never smoked Have you smoked in the past 12 months: No Number of Cigarettes Smoked Daily: 0 Hx Alcohol Use: No Drug/Substance Use Hx: No Substance Use Type: None Hx Substance Use Treatment: No <ManelokiBraxton - Last Filed: 02/23/17 23:43> - Past Medical History Allergies/Adverse Reactions: Allergies Allergy/AdvReac Type Severity Reaction Status Date / Time Penicillins Allergy Intermediate Hives Verified 02/23/17 19:38 Iodinated Contrast Media - Allergy Verified 02/23/17 19:38 Oral and [Iodinated Contrast Media - IV Dye] Home Medications: Ambulatory Orders Aspirin [ASA -] 81 mg PO DAILY #1 tab 03/06/13 Insulin (Novolog) [Novolog Flexpen -] 0 units SQ ACHS 01/16/14 Rosuvastatin Calcium [Crestor] 10 mg PO HS 01/16/14 Ferrous Sulfate [Feosol] 325 mg PO BID #0 ud 05/08/15 Prasugrel Hydrochloride [Effient -] 10 mg PO DAILY #0 tab 05/08/15 Carvedilol Phosphate [Coreg Cr -] 20 mg PO HS 10/25/15 Clonazepam 0.5 mg PO QID PRN 10/25/15 Albuterol 0.083% Nebulizer Bibiana [Ventolin 0.083% Nebulizer Soln -] 1 neb NEB QID 09/14/16 Insulin (Levemir) [Levemir Vial] 30 units SQ HS ml 09/18/16 Torsemide [Demadex -] 20 mg PO DAILY #60 tablet 09/18/16 Nitroglycerin Patch [Nitro-Dur Patch -] 0.2 mg TD DAILY 12/05/16 Hydralazine HCl [Apresoline -] 25 mg PO TID tablet 12/10/16 Methylprednisolone [Medrol Dose Dawood] 4 mg PO ASDIR #21 tablet 12/10/16 Review of Systems - Review of Systems Able to Perform ROS?: Yes Comments:: 02/23/17 20:33 CONSTITUTIONAL: Absent: fever, chills, diaphoresis, generalized weakness, malaise, loss of appetite HEENT: Absent: rhinorrhea, nasal congestion, throat pain, throat swelling, difficulty swallowing, mouth swelling, ear pain, eye pain, visual Changes CARDIOVASCULAR: Absent: chest pain, syncope, palpitations, irregular heart rate, lightheadedness , peripheral edema RESPIRATORY: +SOB Absent: cough, dyspnea with exertion, orthopnea, wheezing, stridor, hemoptysis GASTROINTESTINAL: Absent: abdominal pain, abdominal distension, nausea, vomiting, diarrhea, constipation, melena, hematochezia GENITOURINARY: Absent: dysuria, frequency, urgency, hesitancy, hematuria, flank pain, genital pain MUSCULOSKELETAL: Absent: myalgia, arthralgia, joint swelling SKIN: Absent: rash, itching, pallor NEUROLOGIC: Absent: headache, focal weakness or paresthesias, dizziness, unsteady gait, seizure, mental status changes, bladder or bowel incontinence <Funmi Foster - Last Filed: 02/23/17 20:32> *Physical Exam - Vital Signs Last Vital Signs Temp Pulse Resp BP Pulse Ox 98.1 F 107 H 20 129/106 98 02/23/17 19:35 02/23/17 19:35 02/23/17 19:35 02/23/17 19:35 02/23/17 19:35 - Physical Exam Comments: 02/23/17 20:33 GENERAL: Well developed, well nourished. Awake and alert. No acute distress. HEENT: Normocephalic, atraumatic. PERRLA, EOMI. No conjunctival pallor. Sclera are non- icteric. Moist mucous membranes. Oropharynx is clear. NECK: Supple. Full ROM. No JVD. Carotid pulses 2+ and symmetric, without bruits. No thyromegaly. No lymphadenopathy. CARDIOVASCULAR: Regular rate and rhythm. No murmurs, rubs, or gallops. Distal pulses are 2+ and symmetric. PULMONARY: No evidence of respiratory distress. Bilateral rales and crackles. No wheezing or rhonchi. No conversational dyspnea. No retractions. ABDOMINAL: Soft. Non-tender. Non-distended. No rebound or guarding. No organomegaly. Normoactive bowel sounds. MUSCULOSKELETAL Normal range of motion at all joints. No bony deformities or tenderness. No CVA tenderness. EXTREMITIES: No cyanosis. No clubbing. No edema. No calf tenderness. SKIN: Warm and dry. Normal capillary refill. No rashes. No jaundice. NEUROLOGICAL: Alert, awake, appropriate. Cranial nerves 2-12 intact. Moving all extremities. No gross focal neurological deficits. <Funmi Foster - Last Filed: 02/23/17 20:32> - Vital Signs Last Vital Signs Temp Pulse Resp BP Pulse Ox 98.1 F 107 H 20 129/106 98 03/28/17 19:35 02/23/17 19:35 02/23/17 19:35 02/23/17 19:35 02/23/17 19:35 <Braxton Chun - Last Filed: 02/23/17 23:43> ED Treatment Course - LABORATORY CBC & Chemistry Diagram: 02/23/17 20:55 02/23/17 20:55 <Braxton Chun - Last Filed: 02/23/17 23:43> Medical Decision Making - Medical Decision Making 02/23/17 23:41 Dr. Chun: The scribe's documentation has been prepared under my direction and personally reviewed by me in its entirery. I confirm that the note above accurately reflects all work, treatment, procedures, and medical decision making performed by me. Pt feels better. Pt has urinated several times and now sounds much better om auscultation. Pt to be discharged. Advised to follow up with her doctors. <Braxton Chun - Last Filed: 02/23/17 23:43> *DC/Admit/Observation/Transfer - Attestations Scribe Attestion: 02/23/17 20:33 Documentation prepared by Funmi Foster, acting as medical records administrator for Braxton Chun MD <Funmi Foster - Last Filed: 02/23/17 20:32> - Discharge Dispostion Admit: No <Braxton Chun - Last Filed: 02/23/17 23:43> Diagnosis at time of Disposition: CHF (congestive heart failure) Qualifiers: Congestive heart failure type: unspecified congestive heart failure type Congestive heart failure chronicity: acute on chronic Qualified Code(s): I50.9 - Heart failure, unspecified - Discharge Dispostion Disposition: HOME Condition at time of disposition: Improved - Referrals Referrals: William Bruner MD [Primary Care Provider] - - Patient Instructions Printed Discharge Instructions: DI for Heart Failure
[2017-02-23 21:12] LABS: BASOPHIL 0.6 % (0-2.0); MCH 26.1 pg (25.7-33.7); MCHC 33.6 g/dl (32.0-36.0); MEAN CELL VOLUME 77.5 fl (80-96); MEAN PLT VOLUME 7.8 fl (7.5-11.1); PLATELET COUNT 293 K/MM3 (134-434); RDW 13.4 % (11.6-15.6); WHITE BLOOD COUNT 8.2 K/mm3 (4.0-10.0)
[2017-02-23 21:51] LABS: MAGNESIUM 2.1 mg/dL (1.8-2.4)
[2017-02-23 21:53] LABS: ALBUMIN 3.6 g/dl (3.4-5.0); CALCIUM 8.9 mg/dL (8.5-10.1)
[2017-02-23 21:55] LABS: BILIRUBIN,TOTAL 0.2 mg/dL (0.2-1.0); CREATININE 2.7 mg/dL (0.55-1.02)
[2017-02-23 21:56] LABS: TROPONIN I 0.19 ng/ml (0.00-0.05)
[2017-02-24 00:28] VITALS: BP 189/90; PULSE 74; TEMP 98.6
== END | disposition home or self-care (01) ==
LOC: JER 19:33
PROC: 3E033GC Introduction of Other Therapeutic Substance into Peripheral Vein, Percutaneous Approach (ICD-10-PCS; principal; 2017-02-23)
DX: I50.9 Heart failure, unspecified (principal); I25.2 Old myocardial infarction; I25.10 Atherosclerotic heart disease of native coronary artery without angina pectoris; I11.9 Hypertensive heart disease without heart failure; Z95.5 Presence of coronary angioplasty implant and graft; E11.9 Type 2 diabetes mellitus without complications; Z79.4 Long term (current) use of insulin; E78.00 Pure hypercholesterolemia, unspecified; J45.909 Unspecified asthma, uncomplicated; D64.9 Anemia, unspecified
CPT/HCPCS: 36415; 71010-TC; 80053; 82550; 83735; 83880; 84484; 85025; 85610; 99282-25

== ENCOUNTER 2017-04-29 11:47 | Emergency (ER) | payer OTHER ==
--- NOTE | 2017-04-29 11:59 | PDOC ---
History of Present Illness - General History Source: Patient Exam Limitations: No Limitations - History of Present Illness Initial Comments: 04/29/17 12:21 The patient is a 62 year old female with a significant past medical history of CHF, [place] s/p 2 stents (2012, 2014), hypertension, hyperlipidemia, diabetes, asthma, and anemia, referred by PCP to the Emergency Department with hypernatremia, and weakness. The patient reports weakness, headache, lightheadedness exacerbated by standing, and dry mouth for about one week. She reports that she had routine lab work with her Medical Supervisor yesterday who called this morning and informed her of her hypernatremia. The patient reports that her Lasix medication was increased about one week ago. She denies taking her medication this morning. She also admits to a nitro patch worn regularly. She admits that her blood pressure is normally around 130. The patient denies chest pain, or palpitations. Patient denies nausea, vomiting , and diarrhea. Patient denies fever, cough, and chills. Patient denies loss of consciousness, or visual changes. Allergies: penicillins Medical Supervisor: Dr. Chen PCP: Dr. Mg Mercado Hx: denies cigarette smoking or alcohol use <Melinda Faith - Last Filed: 04/29/17 12:28> - General History Source: Patient, Old Records Exam Limitations: No Limitations <Dillon Bergeron - Last Filed: 04/29/17 14:21> - General Stated Complaint: WEAKNESS (REFERRED) Time Seen by Provider: 04/29/17 11:51 Past History <Melinda Faith - Last Filed: 04/29/17 12:28> - Past Medical History Anemia: Yes Asthma: Yes Cancer: No Cardiac Disorders: Yes ([place] 2012, 1 stent, CHF) CVA: No COPD: No CHF: Yes Dementia: No Diabetes: Yes GI Disorders: No Disorders: Yes (elevated creatinine) HTN: Yes Hypercholesterolemia: Yes Liver Disease: No Seizures: No Thyroid Disease: No - Surgical History Abdominal Surgery: No Appendectomy: No Cardiac Surgery: Yes (2 stents 04/29/2015) Cholecystectomy: No Lung Surgery: No Neurologic Surgery: No Orthopedic Surgery: Yes (arthroscopy sep 08 @ [facility]) - Immunization History Immunization Up to Date: Yes - Psycho/Social/Smoking Cessation Hx Anxiety: No Suicidal Ideation: No Smoking Status: No Smoking History: Never smoked Have you smoked in the past 12 months: No Number of Cigarettes Smoked Daily: 0 Hx Alcohol Use: No Drug/Substance Use Hx: No Substance Use Type: None Hx Substance Use Treatment: No <Dillon Bergeron - Last Filed: 04/29/17 14:21> - Past Medical History Allergies/Adverse Reactions: Allergies Allergy/AdvReac Type Severity Reaction Status Date / Time Penicillins Allergy Intermediate Hives Verified 04/29/17 12:04 Iodinated Contrast Media - Allergy Verified 04/29/17 12:04 Oral and [Iodinated Contrast Media - IV Dye] Home Medications: Ambulatory Orders Aspirin [ASA -] 81 mg PO DAILY #1 tab 03/06/13 Rosuvastatin Calcium [Crestor] 10 mg PO HS 01/16/14 Ferrous Sulfate [Feosol] 325 mg PO BID #0 ud 05/08/15 Prasugrel Hydrochloride [Effient -] 10 mg PO DAILY #0 tab 05/08/15 Albuterol 0.083% Nebulizer Bibiana [Ventolin 0.083% Nebulizer Soln -] 1 neb NEB QID 09/14/16 Torsemide [Demadex -] 20 mg PO DAILY #60 tablet 09/18/16 Nitroglycerin Patch [Nitro-Dur Patch -] 0.2 mg TD DAILY 12/05/16 Hydralazine HCl [Apresoline -] 25 mg PO TID #30 tablet 02/23/17 Insulin Glargine,Hum.rec.anlog [Lantus (nf)] 0 units SQ HS 04/29/17 Insulin Lispro [Humalog] 100 unit SQ PRN 04/29/17 Review of Systems - Review of Systems Able to Perform ROS?: Yes Comments:: 04/29/17 12:23 CONSTITUTIONAL: Reported: + hypernatremia, + generalized weakness No reported: Fever, Chills, Diaphoresis, Malaise, Loss of Appetite HEENT: Reported: + dry mouth No reported: Rhinorrhea, Nasal Congestion, Throat Pain, Throat Swelling, Difficulty Swallowing, Mouth Swelling, Ear Pain, Eye Pain, Visual Changes CARDIOVASCULAR: No reported: Chest Pain, Syncope, Palpitations, Irregular Heart Rate, Lightheadedness, Peripheral Edema RESPIRATORY: No reported: Cough, Shortness of Breath, SOB with Exertion, Orthopnea, Wheezing , Stridor, Hemoptysis GASTROINTESTINAL: No reported: Abdominal pain, Abdominal Distension, Nausea, Vomiting, Diarrhea, Constipation, Melena, Hematochezia GENITOURINARY: No reported: Dysuria, Frequency, Urgency, Hesitancy, Flank Pain, Genital Pain MUSCULOSKELETAL: No reported: Myalgia, Arthralgia, Joint Swelling, Back pain, Neck Pain SKIN: No reported: Rash, Itching, Pallor HEMATOLOGIC/IMMUNOLOGIC: No reported: Easy Bleeding, Easy Bruising, Lymphadenopathy, Frequent infections ENDOCRINE: No reported: Unexplained Weight Gain, Unexplained Weight Loss, Heat Intolerance , Cold Intolerance NEUROLOGIC: Reported: + headache, + lightheadedness No reported: Focal Weakness, Paresthesias, Vertigo, Unsteady Gait, Seizure, Mental Status Changes, Incontinence PSYCHIATRIC: No reported: Anxiety, Depression <Melinda Faith - Last Filed: 04/29/17 12:28> *Physical Exam - Vital Signs Last Vital Signs Temp Pulse Resp BP Pulse Ox 98.4 F 77 22 219/76 99 04/29/17 12:04 04/29/17 12:04 04/29/17 12:04 04/29/17 12:04 04/29/17 12:04 - Physical Exam Comments: 04/29/17 12:30 GENERAL: The patient is awake, alert, and fully oriented, Nontoxic - in no acute distress. HEAD: Normocephalic, atraumatic. EYES: extraocular movements intact, sclera anicteric, conjunctiva clear. ENT: Dry mucous membranes. Normal voice. NECK: Normal range of motion, No JVD LUNGS: Breath sounds equal, clear to auscultation bilaterally. No wheezes, no rhonchi, no rales. HEART: Regular rate and rhythm, normal S1 and S2 without murmur, rub or gallop. ABDOMEN: Soft, nontender, normoactive bowel sounds. No guarding, no rebound. No masses. No CVA tenderness EXTREMITIES: Normal range of motion, no edema. No clubbing or cyanosis. No cords , erythema, or tenderness. NEUROLOGICAL: No facial asymmetry, Normal speech, normal gait. PSYCH: Normal mood, normal affect. SKIN: Warm, Dry, normal turgor. <Melinda Faith - Last Filed: 04/29/17 12:28> Heart Score/ECG Review #1 ECG reviewed & interpreted by me at: 12:25 04/29/17 12:28 NSR 75, T wave flat III, no std/regis, normal axis, carina intervals, LVH, QTC 444 msec <Dillon Bergeron - Last Filed: 04/29/17 14:21> ED Treatment Course - LABORATORY CBC & Chemistry Diagram: 04/29/17 12:56 04/29/17 12:56 <Dillon Bergeron - Last Filed: 04/29/17 14:21> Medical Decision Making - Medical Decision Making 04/29/17 11:58 A portion of this note was documented by scribe services under my direction. I have reviewed the details of the note, within reason, and agree with the documentation with the following case summary and management plan written by me. Patient treated in the ED. Nursing notes are reviewed and incorporated into the medical decision-making. Vital signs reviewed. Peripheral IV access obtained by the nurse, laboratory studies are drawn and sent, reviewed and interpreted by myself. 62 year old female with past medical history of [place] s/p 2 stents, HTN, HLD, DM, asthma, and anemia sent from PMD's office for hypernatremia 160. Patient has history of congestive heart failure and has been taking Lasix daily. She has noted that she was having increasing lower extremity edema and one week ago, the patient had her dictations readjust is now taking Lasix twice a day. Since then, patient is noted improvement of symptoms but noted that she started to feel lightheaded particularly when she is standing up. Denies chest pain or shortness of breath. Started feel dry mouth. She went underwent routine blood work yesterday which demonstrated hypernatremia of 160. Came to the ED for evaluation. We'll obtain labs and confirmed. Patient's blood pressures elevated but patient did not take her BP medication today. 04/29/17 14:18 CBC, BMP 04/29/17 12:56 04/29/17 12:56 CMP Sodium 139 mmol/L (136-145) 04/29/17 12:56 Potassium 4.4 mmol/L (3.5-5.1) 04/29/17 12:56 Chloride 101 mmol/L (98-107) 04/29/17 12:56 Carbon Dioxide 25 mmol/L (21-32) 04/29/17 12:56 Anion Gap 13 (8-16) 04/29/17 12:56 BUN 57 mg/dL (7-18) H 04/29/17 12:56 Creatinine 2.8 mg/dL (0.55-1.02) H 04/29/17 12:56 Creat Clearance w eGFR 17.12 (>60) 04/29/17 12:56 Random Glucose 120 mg/dL (74-106) H D 04/29/17 12:56 Calcium 9.0 mg/dL (8.5-10.1) 04/29/17 12:56 Phosphorus 4.9 mg/dL (2.5-4.9) 04/29/17 12:56 Magnesium 2.3 mg/dL (1.8-2.4) 04/29/17 12:56 Total Bilirubin 0.3 mg/dL (0.2-1.0) D 04/29/17 12:56 AST 19 U/L (15-37) D 04/29/17 12:56 ALT 19 U/L (12-78) D 04/29/17 12:56 Alkaline Phosphatase 110 U/L (45-117) 04/29/17 12:56 Total Protein 7.6 g/dl (6.4-8.2) 04/29/17 12:56 Albumin 3.5 g/dl (3.4-5.0) 04/29/17 12:56 Urine Test Results Urine Color Straw 04/29/17 12:56 Urine Appearance Clear 04/29/17 12:56 Urine pH 5.0 (5.0-8.0) 04/29/17 12:56 Urine Protein 1+ (NEGATIVE) H 04/29/17 12:56 Urine Glucose (UA) Negative (NEGATIVE) 04/29/17 12:56 Urine Ketones Negative (NEGATIVE) 04/29/17 12:56 Urine Blood 1+ (NEGATIVE) H 04/29/17 12:56 Urine Nitrite Negative (NEGATIVE) 04/29/17 12:56 Urine Bilirubin Negative (NEGATIVE) 04/29/17 12:56 Ur Leukocyte Esterase Negative (NEGATIVE) 04/29/17 12:56 Urine RBC None /hpf (0-3) 04/29/17 12:56 Urine WBC 1 /hpf (3-5) 04/29/17 12:56 Ur Epithelial Cells Rare /hpf (FEW) 04/29/17 12:56 Urine Bacteria Rare /hpf (NONE SEEN) 04/29/17 12:56 Pt's sodium is 139. I suspect that the 160 was spurious. The lightheadedness is likely secondary to diuresis. Will have the patient touch base with her doctor Pt reports feeling better after having a meal. I discussed the physical exam findings, ancillary test results and final diagnoses with the patient. I answered all of the patient's questions. The patient was satisfied with the care received and felt comfortable with the discharge plan and treatment plan. The patient will call their primary care physician within 24 hours to arrange follow-up and will return to the Emergency Department with any new, persistant or worsening symptoms. <Dillon Bergeron - Last Filed: 04/29/17 14:21> *DC/Admit/Observation/Transfer - Attestations Scribe Attestion: 04/29/17 12:31 Documentation prepared by Melinda Faith, acting as senior medical director for Dillon Bergeron MD. <Melinda Faith - Last Filed: 04/29/17 12:28> - Discharge Dispostion Admit: No <Dillon Bergeron - Last Filed: 04/29/17 14:21> Diagnosis at time of Disposition: Dehydration - Discharge Dispostion Disposition: HOME Condition at time of disposition: Improved - Referrals Referrals: William Bruner MD [Primary Care Provider] - - Patient Instructions Printed Discharge Instructions: Dehydration, DI for Dehydration -- Adult Additional Instructions: Please continue to take your medications. Your sodium today is 139. Please bring a copy of the results to your doctor.
[2017-04-29 12:07] VITALS: BP 219/76; PULSE 77; TEMP 98.4; BMI 40.2
[2017-04-29 13:36] LABS: BASOPHIL 0.9 % (0-2.0); EOSINOPHIL 4.3 % (0-4.5); MCH 26.2 pg (25.7-33.7); MCHC 33.6 g/dl (32.0-36.0); MEAN PLT VOLUME 8.2 fl (7.5-11.1); NEUTROPHILS 39.4 % (42.8-82.8); PLATELET COUNT 234 K/MM3 (134-434); RDW 12.9 % (11.6-15.6)
[2017-04-29 13:44] LABS: URINE APPEARANCE CLEAR; URINE BILIRUBIN NEGATIVE (NEGATIVE); URINE BLOOD 1+ (NEGATIVE); URINE COLOR STRAW; URINE GLUCOSE (UA) NEGATIVE (NEGATIVE); URINE KETONE NEGATIVE (NEGATIVE); URINE LEUK ESTERASE NEGATIVE (NEGATIVE); URINE NITRITE NEGATIVE (NEGATIVE); URINE PROTEIN 1+ (NEGATIVE); URINE UROBILINOGEN NEGATIVE E.U./dl (0.2-1.0)
[2017-04-29 13:46] LABS: URINE BACTERIA RARE /hpf (NONE SEEN); URINE WBC 1 /hpf (3-5)
[2017-04-29 13:52] LABS: INR 1.06 (0.82-1.09); PROTHROMBIN TIME (PATIENT) 11.7 SEC (9.98-11.88)
[2017-04-29] MEDS ORDERED: hydrALAZINE HCL 25 MG TABLET (FP) PO ONE (13:54)
[2017-04-29 13:55] LABS: ACTIVATED PTT 34.2 SECONDS (26.9-34.4)
[2017-04-29 14:05] LABS: ALBUMIN 3.5 g/dl (3.4-5.0); BILIRUBIN,TOTAL 0.3 mg/dL (0.2-1.0); CREATININE 2.8 mg/dL (0.55-1.02); MAGNESIUM 2.3 mg/dL (1.8-2.4); PHOSPHOROUS 4.9 mg/dL (2.5-4.9); TOT PROT 7.6 g/dl (6.4-8.2)
--- NOTE | 2017-04-29 16:27 | EKG ---
Test Reason : Blood Pressure : / mmHG Vent. Rate : 075 BPM Atrial Rate : 075 BPM P-R Int : 138 ms QRS Dur : 084 ms QT Int : 398 ms P-R-T Axes : 015 000 018 degrees QTc Int : 444 ms POOR DATA QUALITY, INTERPRETATION MAY BE ADVERSELY AFFECTED SINUS RHYTHM WITH PREMATURE SUPRAVENTRICULAR COMPLEXES MINIMAL VOLTAGE CRITERIA FOR LVH, MAY BE NORMAL VARIANT NONSPECIFIC T WAVE ABNORMALITY ABNORMAL ECG WHEN COMPARED WITH ECG OF 05-DEC-2016 17:53, PREMATURE SUPRAVENTRICULAR COMPLEXES ARE NOW PRESENT NONSPECIFIC T WAVE ABNORMALITY, WORSE IN INFERIOR LEADS Confirmed by AMY ALAS MD ([id number]) on 04/29/2017 4:27:28 PM Referred By: Confirmed By:AMY ALAS MD
== END 2017-04-29 14:44 | disposition home or self-care (01) ==
LOC: JER 11:47
DX: E87.0 Hyperosmolality and hypernatremia (principal); I50.9 Heart failure, unspecified; I25.2 Old myocardial infarction; I10 Essential (primary) hypertension; E11.9 Type 2 diabetes mellitus without complications; Z79.4 Long term (current) use of insulin; E78.00 Pure hypercholesterolemia, unspecified; J45.909 Unspecified asthma, uncomplicated
CPT/HCPCS: 36415; 80053; 81003; 81015; 82436; 83735; 84100; 84133; 84300; 85025; 85610; 85730; 93005; 93010; 99282-25

== ENCOUNTER 2017-06-13 13:40 | Inpatient (IN) | payer OTHER ==
--- NOTE | 2017-06-13 14:22 | PDOC ---
History of Present Illness - General Chief Complaint: Respiratory Stated Complaint: COUGH Past History - Past Medical History Allergies/Adverse Reactions: Allergies Allergy/AdvReac Type Severity Reaction Status Date / Time Penicillins Allergy Intermediate Hives Verified 06/13/17 13:58 Iodinated Contrast Media - Allergy Verified 06/13/17 13:58 Oral and [Iodinated Contrast Media - IV Dye] Home Medications: Ambulatory Orders Aspirin [ASA -] 81 mg PO DAILY #1 tab 03/06/13 Rosuvastatin Calcium [Crestor] 10 mg PO HS 01/16/14 Ferrous Sulfate [Feosol] 325 mg PO BID #0 ud 05/08/15 Prasugrel Hydrochloride [Effient -] 10 mg PO DAILY #0 tab 05/08/15 Albuterol 0.083% Nebulizer Bibiana [Ventolin 0.083% Nebulizer Soln -] 1 neb NEB QID 09/14/16 Torsemide [Demadex -] 20 mg PO DAILY #60 tablet 09/18/16 Nitroglycerin Patch [Nitro-Dur Patch -] 0.2 mg TD DAILY 12/05/16 Hydralazine HCl [Apresoline -] 25 mg PO TID #30 tablet 02/23/17 Insulin Glargine,Hum.rec.anlog [Lantus (nf)] 0 units SQ HS 04/29/17 Insulin Lispro [Humalog] 100 unit SQ PRN 04/29/17 Budesonide/Formeterol Fumarate [SYMBICORT 160/4.5mcg -] 2 inh PO BID 06/13/17 Clonazepam [KlonoPIN] 0.5 mg PO QID PRN 06/13/17 Anemia: Yes Asthma: Yes Cancer: No Cardiac Disorders: Yes ([place] 2012, 1 stent, CHF) CVA: No COPD: No CHF: Yes Dementia: No Diabetes: Yes GI Disorders: No Disorders: Yes (elevated creatinine) HTN: Yes Hypercholesterolemia: Yes Liver Disease: No Seizures: No Thyroid Disease: No - Surgical History Abdominal Surgery: No Appendectomy: No Cardiac Surgery: Yes (2 stents 04/29/2015) Cholecystectomy: No Lung Surgery: No Neurologic Surgery: No Orthopedic Surgery: Yes (arthroscopy sep 08 @ [facility]) - Immunization History Immunization Up to Date: Yes - Psycho/Social/Smoking Cessation Hx Anxiety: No Suicidal Ideation: No Smoking Status: No Smoking History: Never smoked Have you smoked in the past 12 months: No Number of Cigarettes Smoked Daily: 0 Hx Alcohol Use: No Drug/Substance Use Hx: No Substance Use Type: None Hx Substance Use Treatment: No *Physical Exam - Vital Signs Last Vital Signs Temp Pulse Resp BP Pulse Ox 98.3 F 80 20 192/90 97 06/13/17 13:55 06/13/17 13:55 06/13/17 13:55 06/13/17 13:55 06/13/17 13:55
--- NOTE | 2017-06-13 16:02 | PDOC ---
History of Present Illness - General Chief Complaint: Respiratory Stated Complaint: COUGH Time Seen by Provider: 06/13/17 14:22 History Source: Patient Exam Limitations: No Limitations - History of Present Illness Initial Comments: 06/13/17 15:56 Patient is 62F with history of CHF, IDDM, Asthma, ND (2013, s/p 2 stents), and HTN here today complaining of a cough for the past 2 weeks. The cough produces a white phlegm. The cough gets worse with laying down and activity. The patient endorses worsening orthopnea. She endorses losing weight. She denies increased leg swelling, and decreased activity level. She denies throat pain, chest pain, and shortness of breath. She denies nausea, vomiting, fevers and chills. She denies dysuria, constipation, and abdominal pain. She reports compliance with her medications and weight measurement, but is unaware of how much weight she's lost. Past History - Past Medical History Allergies/Adverse Reactions: Allergies Allergy/AdvReac Type Severity Reaction Status Date / Time Penicillins Allergy Intermediate Hives Verified 06/13/17 13:58 Iodinated Contrast Media - Allergy Verified 06/13/17 13:58 Oral and [Iodinated Contrast Media - IV Dye] Home Medications: Ambulatory Orders Aspirin [ASA -] 81 mg PO DAILY #1 tab 03/06/13 Rosuvastatin Calcium [Crestor] 10 mg PO HS 01/16/14 Ferrous Sulfate [Feosol] 325 mg PO BID #0 ud 05/08/15 Prasugrel Hydrochloride [Effient -] 10 mg PO DAILY #0 tab 05/08/15 Albuterol 0.083% Nebulizer Bibiana [Ventolin 0.083% Nebulizer Soln -] 1 neb NEB QID 09/14/16 Torsemide [Demadex -] 20 mg PO DAILY #60 tablet 09/18/16 Nitroglycerin Patch [Nitro-Dur Patch -] 0.2 mg TD DAILY 12/05/16 Hydralazine HCl [Apresoline -] 25 mg PO TID #30 tablet 02/23/17 Insulin Glargine,Hum.rec.anlog [Lantus (nf)] 0 units SQ HS 04/29/17 Insulin Lispro [Humalog] 100 unit SQ PRN 04/29/17 Budesonide/Formeterol Fumarate [SYMBICORT 160/4.5mcg -] 2 inh PO BID 06/13/17 Clonazepam [KlonoPIN] 0.5 mg PO QID PRN 06/13/17 Anemia: Yes Asthma: Yes Cancer: No Cardiac Disorders: Yes (ND 2013, 1 stent, CHF) CVA: No COPD: No CHF: Yes Dementia: No Diabetes: Yes GI Disorders: No Disorders: Yes (elevated creatinine) HTN: Yes Hypercholesterolemia: Yes Liver Disease: No Seizures: No Thyroid Disease: No - Surgical History Abdominal Surgery: No Appendectomy: No Cardiac Surgery: Yes (2 stents 04/29/2015) Cholecystectomy: No Lung Surgery: No Neurologic Surgery: No Orthopedic Surgery: Yes (arthroscopy sep 08 @ [facility]) - Immunization History Immunization Up to Date: Yes - Psycho/Social/Smoking Cessation Hx Anxiety: No Suicidal Ideation: No Smoking Status: No Smoking History: Never smoked Have you smoked in the past 12 months: No Number of Cigarettes Smoked Daily: 0 Hx Alcohol Use: No Drug/Substance Use Hx: No Substance Use Type: None Hx Substance Use Treatment: No Review of Systems - Review of Systems Constitutional: Yes: Unintentional Wgt. Loss. No: Chills, Fever, Weakness HEENTM: No: Recent change in vision, Throat Pain Respiratory: Yes: Cough, Orthopnea. No: Shortness of Breath Cardiac (ROS): No: Chest Pain, Syncope ABD/GI: Yes: Constipated (last bowel movement yesterday, normal). No: Diarrhea , Nausea, Vomiting : No: Dysuria, Incontinence Integumentary: No: Flushing Neurological: No: Headache, Dizziness *Physical Exam - Vital Signs Last Vital Signs Temp Pulse Resp BP Pulse Ox 98.3 F 80 20 192/90 97 06/13/17 13:55 06/13/17 13:55 06/13/17 13:55 06/13/17 13:55 06/13/17 13:55 - Physical Exam Comments: 06/13/17 16:05 Gen: Well nourished obese woman, no acute distress CV: Regular rate, regular rhythm, S1, S2, late systolic click murmur Lungs: Crackles from the mid to inferior sections of both lungs, normal work of breathing Abd: Soft, nontender, normal bowel sounds Ext: 1+ pitting edema to knee, 1+ pulses in both lower extremities Neuro: Awake, alert, no focal neuro deficits HEENT: Normocephalic atraumatic ED Treatment Course - LABORATORY CBC & Chemistry Diagram: 06/13/17 15:32 06/13/17 15:32 - RADIOLOGY Radiology Studies Ordered: Category Date Time Status CHEST PA & LAT [RAD] Stat Radiology 06/13/17 15:32 Ordered Medical Decision Making - Medical Decision Making 06/13/17 16:09 62F with history of CHF, IDDM, Asthma, ND (2012, s/p 2 stents), and HTN here today complaining of a cough. BP elevated to 192/90, plan to repeat blood pressure. Other vital signs stable. Differential diagnosis includes, but is not limited to: CHF exacerbation, pneumonia and asthma. Will order CBC, CMP, CXR, Trop, Coags, and BNP. 06/13/17 18:36 Repeat blood pressure have a systolic of 195. Patient without chest pain, no shortness of breath. Given 10mg hydralazine IV. Troponin elevated to .32, up from last value of .19 in January. BNP elevated to 1430. CBC normal. CMP shows Cr elevation to 2.9. Cr was 2.8 and 2.7 on prior admission. Page out to Dr Bruner at 18:20 through his answering service. 06/13/17 18:54 Second call out at 18:53 06/13/17 19:[address] Shelton. Vital signs stable. *DC/Admit/Observation/Transfer Diagnosis at time of Disposition: Elevated troponin I level - Attestations Physician Attestion: 06/13/17 19:14 I, Dr. Parth Davila, attest that this document has been prepared under my direction and personally reviewed by me in its entirety. I further attest, that it accurately reflects all work, treatment, procedures and medical decision -making performed by me.
[2017-06-13 16:19] LABS: BASOPHIL 0.9 % (0-2.0); MCH 25.4 pg (25.7-33.7); MCHC 32.9 g/dl (32.0-36.0); MEAN CELL VOLUME 77.1 fl (80-96); MEAN PLT VOLUME 7.9 fl (7.5-11.1); NEUTROPHILS 61.2 % (42.8-82.8); PLATELET COUNT 273 K/MM3 (134-434); RDW 12.8 % (11.6-15.6); WHITE BLOOD COUNT 7.2 K/mm3 (4.0-10.0)
[2017-06-13 16:37] LABS: INR 1.08 (0.82-1.09); PROTHROMBIN TIME (PATIENT) 11.9 SEC (9.98-11.88)
[2017-06-13 16:48] LABS: ALBUMIN 3.7 g/dl (3.4-5.0); ANION GAP 9 (8-16); BILIRUBIN,TOTAL 0.3 mg/dL (0.2-1.0); CALCIUM 9.1 mg/dL (8.5-10.1); CO2 26 mmol/L (21-32); CREATININE 2.9 mg/dL (0.55-1.02); GLUCOSE,RANDOM 172 mg/dL (74-106); SGOT/AST 19 U/L (15-37); SGPT/ALT 18 U/L (12-78); TOT PROT 8.2 g/dl (6.4-8.2)
[2017-06-13 16:51] LABS: ALK PHOS 132 U/L (45-117); TROPONIN I 0.32 ng/ml (0.00-0.05)
--- NOTE | 2017-06-13 17:09 | PDOC ---
Attending Attestation - Resident Resident Name: Parth Davila - HPI HPI: 06/13/17 17:43 Pt presents to the ED complaining of persistent cough. Also complains of shortness of breath with laying flat. Denies chest pain. States that with her CHF exacerbations, she usually experiences severe RAMIREZ, and that her symptoms today are different because she has no RAMIREZ. Denies fever. - Physicial Exam PE: 06/13/17 17:55 + crackles at the bases. Patient is speaking in complete sentences and does not appear to be in respiratory distress. - Medical Decision Making 06/13/17 17:55 Pt presents to the ED complaining of orthopnea and non productive cough. Well appearing in the ED, but with crackles in the bases. Labs show mild troponin elevation. EKG shows no evidence of acute ischemia. Will admit to observation for serial cardiac enzymes.
[2017-06-13] MEDS ORDERED: ASPIRIN 81 MG CHEWABLE TABLETS PO ONE (17:16)
[2017-06-13] MEDS ORDERED: hydrALAZINE HCL 20 MG/ML VIAL IVPUSH ONE (18:04)
--- NOTE | 2017-06-13 19:21 | PDOC ---
*Physical Exam - Vital Signs Last Vital Signs Temp Pulse Resp BP Pulse Ox 98.7 F 93 H 16 136/64 95 06/13/17 19:06 06/13/17 19:06 06/13/17 19:06 06/13/17 19:06 06/13/17 19:06 ED Treatment Course - LABORATORY CBC & Chemistry Diagram: 06/13/17 15:32 06/13/17 15:32 - ADDITIONAL ORDERS Additional order review: Laboratory Results 06/13/17 06/13/17 15:32 15:32 INR 1.08 Sodium 137 Potassium 4.3 Chloride 102 Carbon Dioxide 26 Anion Gap 9 BUN 58 H Creatinine 2.9 H Creat Clearance w eGFR 16.44 Random Glucose 172 H D Calcium 9.1 Total Bilirubin 0.3 AST 19 ALT 18 Alkaline Phosphatase 132 H Creatine Kinase 111 Troponin I 0.32 H B-Natriuretic Peptide 1430.44 H Total Protein 8.2 Albumin 3.7 06/13/17 15:32 RBC 4.40 MCV 77.1 L MCHC 32.9 RDW 12.8 MPV 7.9 Neutrophils % 61.2 D Lymphocytes % 27.5 D Monocytes % 7.4 Eosinophils % 3.0 Basophils % 0.9 - Medications Given in the ED: ED Medications Discontinued Medications Generic Name Dose Route Start Last Admin Trade Name Freq PRN Reason Stop Dose Admin Aspirin 162 mg 06/13/17 17:16 06/13/17 17:31 Asa - PO 06/13/17 17:17 162 mg ONCE ONE Administration Hydralazine HCl 10 mg 06/13/17 18:04 06/13/17 18:19 Apresoline Injection - IVPUSH 06/13/17 18:05 10 mg ONCE ONE Administration Medical Decision Making - Medical Decision Making 06/13/17 19:20 Patient signed out by Dr. Davila at 19:10 in stable condition, breathing comfortably with pressures of 130s systolic. She will be admitted for Troponin rule out under observaton. Does not appear wet on CXR or pulmonary exam. Her PCP Dr. Bernal would like to defer admission to hospitalist team since it will be an obs admission. Heart Score 5. Admitting team has evaluated the patient. 06/13/17 20:23 *DC/Admit/Observation/Transfer Diagnosis at time of Disposition: Elevated troponin I level - Discharge Dispostion Admit: Yes - Referrals Referrals: William Bruner MD [Primary Care Provider] - - Patient Instructions - Post Discharge Activity
--- NOTE | 2017-06-13 20:29 | PN ---
Teaching Attending Note Name of Resident: Tamy Quintanilla ATTENDING PHYSICIAN STATEMENT I saw and evaluated the patient. I reviewed the resident's note and discussed the case with the resident. I agree with the resident's findings and plan as documented. SUBJECTIVE: 62 F with pmhx of IDDM, Ashtma, NC (2013 s/p Stent X2), HTN, lone afib/PVST, KATINA , MR, CKD, anemia, CHF who presents with cough. Cough is of two week duration, with associated sputum, which is white in color. No chest pain, pressure, or shortness of breath. Also, reports weight loss, but unsure of amt. States that she had increased cough because of dusting earlier and her mowing grass. Notes that cough has now resolved. OBJECTIVE: Physical: VS: Vital Signs Period Temp Pulse Resp BP Sys/Shankar Pulse Ox Last 24 Hr 98.3 F-98.7 F 77-93 16-20 136-195/64-90 95-97 GEN: NAD, Resting in bed, Able to speak full sentences HEENT: NCAT, PERRL CARD: RRR S1, S2 RESP: CTAB ABD: BSX4, ntd to palpation EXT: - C/C/E CBCD WBC 7.2 K/mm3 (4.0-10.0) 06/13/17 15:32 RBC 4.40 M/mm3 (3.60-5.2) 06/13/17 15:32 Hgb 11.2 GM/dL (10.7-15.3) 06/13/17 15:32 Hct 33.9 % (32.4-45.2) 06/13/17 15:32 MCV 77.1 fl (80-96) L 06/13/17 15:32 MCHC 32.9 g/dl (32.0-36.0) 06/13/17 15:32 RDW 12.8 % (11.6-15.6) 06/13/17 15:32 Plt Count 273 K/MM3 (134-434) 06/13/17 15:32 MPV 7.9 fl (7.5-11.1) 06/13/17 15:32 CMP Sodium 137 mmol/L (136-145) 06/13/17 15:32 Potassium 4.3 mmol/L (3.5-5.1) 06/13/17 15:32 Chloride 102 mmol/L (98-107) 06/13/17 15:32 Carbon Dioxide 26 mmol/L (21-32) 06/13/17 15:32 Anion Gap 9 (8-16) 06/13/17 15:32 BUN 58 mg/dL (7-18) H 06/13/17 15:32 Creatinine 2.9 mg/dL (0.55-1.02) H 06/13/17 15:32 Creat Clearance w eGFR 16.44 (>60) 06/13/17 15:32 Random Glucose 172 mg/dL (74-106) H D 06/13/17 15:32 Calcium 9.1 mg/dL (8.5-10.1) 06/13/17 15:32 Total Bilirubin 0.3 mg/dL (0.2-1.0) 06/13/17 15:32 AST 19 U/L (15-37) 06/13/17 15:32 ALT 18 U/L (12-78) 06/13/17 15:32 Alkaline Phosphatase 132 U/L (45-117) H 06/13/17 15:32 Total Protein 8.2 g/dl (6.4-8.2) 06/13/17 15:32 Albumin 3.7 g/dl (3.4-5.0) 06/13/17 15:32 CARDIAC ENZYMES Creatine Kinase 111 IU/L (26-192) 06/13/17 15:32 Troponin I 0.32 ng/ml (0.00-0.05) H 06/13/17 15:32 EKG: CXR: No acute process Home Medications Medication Instructions Recorded Aspirin [ASA -] 81 mg PO DAILY #1 tab 03/06/13 Rosuvastatin Calcium [Crestor] 10 mg PO HS 01/16/14 Ferrous Sulfate [Feosol] 325 mg PO BID #0 ud 05/08/15 Prasugrel Hydrochloride [Effient -] 10 mg PO DAILY #0 tab 05/08/15 Albuterol 0.083% Nebulizer Bibiana 1 neb NEB QID 09/14/16 [Ventolin 0.083% Nebulizer Soln -] Torsemide [Demadex -] 20 mg PO DAILY #60 tablet 09/18/16 Nitroglycerin Patch [Nitro-Dur 0.2 mg TD DAILY 01/07/17 Patch -] Hydralazine HCl [Apresoline -] 25 mg PO TID #30 tablet 02/23/17 Insulin Glargine,Hum.rec.anlog 0 units SQ HS 04/29/17 [Lantus (nf)] Insulin Lispro [Humalog] 100 unit SQ PRN 04/29/17 Budesonide/Formeterol Fumarate 2 inh PO BID 06/13/17 [SYMBICORT 160/4.5mcg -] Clonazepam [KlonoPIN] 0.5 mg PO QID PRN 06/13/17 ASSESSMENT AND PLAN: 62 F with pmhx of CHF, IDDM, Asthma, NC (13' s/p stents X2), and HTN who presents with cough, found to have elevated troponin, admitted for ACS rule out. 1.) Troponin Elevation/Hx. of CAD/ NC s/p Stents X2 DDX: Demand/Renal failure/ vs. ACS - Trend troponin/EKG - ASA - C/W home meds for CAD 3.) Cough/Asthma - Most likely viral - C/W nebs for asthma 2.) Chronic CHF Diastolic - not in Exacerbation - C/W home dose of Toresemide 3.) HTN Urgency - Now Resolved - C/W home emds 4.) IDDM - FS - RAISS - C/W Levemir - Diabetic Diet 5.) CKD- - Base Cr 2.7-3 - Monitor - Avoid Nephrotoxins 6.) Dvt Ppx - Low Risk SCD
--- NOTE | 2017-06-13 20:39 | HP ---
HISTORY OF PRESENT ILLNESS: Patient is a 62 year old female with a PMHx of diastolic CHF, CAD s/p ME (x2 stents), IDDMII, HTN, and asthma who presented with a productive cough with white non-bloody phlegm x 2weeks associated with worsening orthopnea and shortness of breath. Patient states she believes the cough and shortness of breath is triggered from the neighbors cutting the grass and dusting her house. Admits to using her albuterol inhaler every 4 hours in the last 24 hours. Patient was last admitted for asthma exacerbation on 08/2016 but has never been intubated. Otherwise, patient denies fever, chills, chest pain, palpitations, abdominal pain, dysuria, hematuria. PHYSICAL EXAMINATION Vital Signs - 24 hr 06/13/17 06/13/17 06/13/17 13:55 18:02 19:06 Temperature 98.3 F 98.4 F 98.7 F Pulse Rate 80 Pulse Rate [ 77 93 H Left Apical] Respiratory 20 16 16 Rate Blood Pressure 192/90 Blood Pressure 195/80 136/64 [Left Arm] O2 Sat by Pulse 97 96 95 Oximetry (%) GENERAL: Awake, alert, and fully oriented, in no acute distress. EARS, NOSE, THROAT: Moist mucous membranes. NECK: Supple without lymphadenopathy. LUNGS: Breath sounds equal, clear to auscultation bilaterally. No wheezes, and no crackles. No accessory muscle use. HEART: Regular rate and rhythm, normal S1 and S2 without murmur, rub or gallop. ABDOMEN: Soft, nontender, not distended, normoactive bowel sounds, no guarding, no rebound, no masses. LOWER EXTREMITIES: 2+ pulses, warm, well-perfused. No calf tenderness. No peripheral edema. Laboratory Results - last 24 hr 06/13/17 06/13/17 06/13/17 15:32 15:32 15:32 WBC 7.2 RBC 4.40 Hgb 11.2 Hct 33.9 MCV 77.1 L MCH 25.4 L MCHC 32.9 RDW 12.8 Plt Count 273 MPV 7.9 Neutrophils % 61.2 D Lymphocytes % 27.5 D Monocytes % 7.4 Eosinophils % 3.0 Basophils % 0.9 INR 1.08 Sodium 137 Potassium 4.3 Chloride 102 Carbon Dioxide 26 Anion Gap 9 BUN 58 H Creatinine 2.9 H Creat Clearance w eGFR 16.44 Random Glucose 172 H D Calcium 9.1 Total Bilirubin 0.3 AST 19 ALT 18 Alkaline Phosphatase 132 H Creatine Kinase 111 Troponin I 0.32 H B-Natriuretic Peptide 1430.44 H Total Protein 8.2 Albumin 3.7 ASSESSMENT/PLAN: Patient is a 62 year old female with a PMHx of diastolic CHF, CAD s/p ME (x2 stents), IDDMII, HTN, and asthma who presented for a cough associated with shortness of breath. Patient was found to have elevated troponins and admitted for further monitoring and management. Elevated Troponins -Heart Score: 5 -History of CAD s/p ME with stents x2 -First trop 0.32. Second pending. Continue to trend Trops and EKG -ASA 162 given. Continue daily ASA 81mg daily -Continue with Effiant Cough w/ Phlegm- History of Asthma -Currently in no acute asthma exacerbation -Likely viral etiology -Continue Albuterol nebulizer Q4H Hypertension Urgency -Was given Hydralazine IV in ED and resolved -Continue with current home medications CKD -Baseline between 2.7-3.0 -Will continue to monitor BMP daily Diastolic CHF -No acute exacerbation. However reports worsening orthopnea but patient was resting comfortably while flat in bed -Continue with Toresemide IDDMII -Levemir 30 units HS -BGM -ISS F/E/N -On no fluids -Electrolytes wnl -Diabetic/Sodium controlled diet Prophylaxis -Medium Risk. Heparin 5000 units Q8H for DVT Visit type - Emergency Visit Emergency Visit: Yes ED Registration Date: 06/15/17 Care time: The patient presented to the Emergency Department on the above date and was hospitalized for further evaluation of their emergent condition. - New Patient This patient is new to me today: Yes Date on this admission: 06/15/17 - Critical Care Critical Care patient: No
--- NOTE | 2017-06-13 21:49 | HP ---
CHIEF COMPLAINT: one weeks hisotry of productive cough. PCP: HISTORY OF PRESENT ILLNESS: Patient is a 62 YO Female with PMH of CHF, IDDMII, HTN, CAD(S/ p CABG x 2 ), HLD, asthma and anxiety who presented to the ED today due to one week history of a nonbloody productive cough with white phlegm that worsened the last couple days. Patient reports the amount of phlegm is one tea spoonful. Cough is exacerbated when laying down flat, affecting her sleep. The cough improves with Albuterol nebulizer and Symbicort. Patient states that she believes the cough was triggered by her neighbors cutting the grass and her dusting the house. Patient also reports having to use three pillows at night to sleep as well as bilateral leg edema. Patient denies chest pain , palpitation, SOB on exertion, fever, chills, N/V/D but she reports constipation due to Iron intake. she denies any urinary symptoms. She used to have asthma attack once a year, last hospitalization was in August 2016 for Asthma without intubation. ER course was notable for (1) EKG : Normal sinus rythm with no ST,T wave changes (2) CXR did not show any acute pathology (3) TRop was elevated 0.32 Recent Travel:NO PAST MEDICAL HISTORY: HTN, Asthma, IDDM, CAD S/P CABG X 2 . PAST SURGICAL HISTORY: Cataract both eyes. knee surgery , CABG x 2 . Hand surgery . Social History: Smoking: none Alcohol:None Drugs: None Family History: Father has DM, HTN and colon cancer , Mother had breast cancer. sister of colon cancer at age of 25. Allergies Penicillins Allergy (Intermediate, Verified 06/13/17 13:58) Hives Iodinated Contrast Media - Oral and [Iodinated Contrast Media - IV Dye] Allergy (Verified 06/13/17 13:58) HOME MEDICATIONS: Home Medications Ambulatory Orders Home Medications Medication Instructions Recorded Aspirin [ASA -] 81 mg PO DAILY #1 tab 03/06/13 Rosuvastatin Calcium [Crestor] 10 mg PO HS 01/16/14 Ferrous Sulfate [Feosol] 325 mg PO BID #0 ud 05/08/15 Prasugrel Hydrochloride [Effient -] 10 mg PO DAILY #0 tab 05/08/15 Albuterol 0.083% Nebulizer Bibiana 1 neb NEB QID 09/14/16 [Ventolin 0.083% Nebulizer Soln -] Torsemide [Demadex -] 20 mg PO DAILY #60 tablet 09/18/16 Nitroglycerin Patch [Nitro-Dur 0.2 mg TD DAILY 12/05/16 Patch -] Hydralazine HCl [Apresoline -] 25 mg PO TID #30 tablet 02/23/17 Insulin Glargine,Hum.rec.anlog 0 units SQ HS 04/29/17 [Lantus (nf)] Insulin Lispro [Humalog] 100 unit SQ PRN 04/29/17 Budesonide/Formeterol Fumarate 2 inh PO BID 06/13/17 [SYMBICORT 160/4.5mcg -] Clonazepam [KlonoPIN] 0.5 mg PO QID PRN 06/13/17 REVIEW OF SYSTEMS CONSTITUTIONAL: Absent: fever, chills, diaphoresis, generalized weakness, malaise, loss of appetite, weight change HEENT: Absent: rhinorrhea, nasal congestion, throat pain, throat swelling, difficulty swallowing, mouth swelling, ear pain, eye pain, visual changes CARDIOVASCULAR: Absent: chest pain, syncope, palpitations, irregular heart rate, lightheadedness , peripheral edema RESPIRATORY: Absent:+ cough, shortness of breath, dyspnea with exertion, orthopnea, wheezing , stridor, hemoptysis GASTROINTESTINAL: Absent: abdominal pain, abdominal distension, nausea, vomiting, diarrhea, constipation, melena, hematochezia GENITOURINARY: Absent: dysuria, frequency, urgency, hesitancy, hematuria, flank pain, genital pain MUSCULOSKELETAL: Absent: myalgia, arthralgia, joint swelling, back pain, neck pain SKIN: Absent: rash, itching, pallor HEMATOLOGIC/IMMUNOLOGIC: Absent: easy bleeding, easy bruising, lymphadenopathy, frequent infections ENDOCRINE: Absent: unexplained weight gain, unexplained weight loss, heat intolerance, cold intolerance NEUROLOGIC: Absent: headache, focal weakness or paresthesias, dizziness, unsteady gait, seizure, mental status changes, bladder or bowel incontinence PSYCHIATRIC: Absent: anxiety, depression, suicidal or homicidal ideation, hallucinations. PHYSICAL EXAMINATION Vital Signs Period Temp Pulse Resp BP Sys/Shankar Pulse Ox Last 24 Hr 97.8 F-99.2 F 74-93 16-20 134-195/62-90 95-99 GENERAL: Awake, alert, and fully oriented, in no acute distress. HEAD: Normal with no signs of trauma. EYES: Pupils equal, round and reactive to light, extraocular movements intact, sclera anicteric, conjunctiva clear. No lid lag. EARS, NOSE, THROAT: Oropharynx clear without exudates. Moist mucous membranes. NECK: Normal range of motion, supple without lymphadenopathy, JVD, or masses. LUNGS: Breath sounds equal, clear to auscultation bilaterally. No wheezes, and no crackles. No accessory muscle use. HEART: Regular rate and rhythm, normal S1 and S2 without murmur, rub or gallop. ABDOMEN: Soft, nontender, not distended, normoactive bowel sounds, no guarding, no rebound, no masses. No hepatomegaly or splenomegaly. MUSCULOSKELETAL: Normal range of motion at all joints. No bony deformities or tenderness. No CVA tenderness. UPPER EXTREMITIES: 2+ pulses, warm, well-perfused. No cyanosis. No clubbing. No peripheral edema. LOWER EXTREMITIES: 2+ pulses, warm, well-perfused. No calf tenderness. No peripheral edema. NEUROLOGICAL: Cranial nerves II-XII intact. Normal speech. PSYCHIATRIC: Cooperative. Good eye contact. Appropriate mood and affect. SKIN: Warm, dry, normal turgor, no rashes or lesions noted, normal capillary refill. CBC,CMP WBC 7.2 K/mm3 (4.0-10.0) 06/13/17 15:32 RBC 4.40 M/mm3 (3.60-5.2) 06/13/17 15:32 Hgb 11.2 GM/dL (10.7-15.3) 06/13/17 15:32 Hct 33.9 % (32.4-45.2) 06/13/17 15:32 MCV 77.1 fl (80-96) L 06/13/17 15:32 MCH 25.4 pg (25.7-33.7) L 06/13/17 15:32 MCHC 32.9 g/dl (32.0-36.0) 06/13/17 15:32 RDW 12.8 % (11.6-15.6) 06/13/17 15:32 Plt Count 273 K/MM3 (134-434) 06/13/17 15:32 MPV 7.9 fl (7.5-11.1) 06/13/17 15:32 Neutrophils % 61.2 % (42.8-82.8) D 06/13/17 15:32 Lymphocytes % 27.5 % (8-40) D 06/13/17 15:32 Monocytes % 7.4 % (3.8-10.2) 06/13/17 15:32 Eosinophils % 3.0 % (0-4.5) 06/13/17 15:32 Basophils % 0.9 % (0-2.0) 06/13/17 15:32 Sodium 138 mmol/L (136-145) 06/13/17 23:00 Potassium 4.0 mmol/L (3.5-5.1) 06/13/17 23:00 Chloride 100 mmol/L (98-107) 06/13/17 23:00 Carbon Dioxide 27 mmol/L (21-32) 06/13/17 23:00 Anion Gap 11 (8-16) 06/13/17 23:00 BUN 61 mg/dL (7-18) H 06/13/17 23:00 Creatinine 2.9 mg/dL (0.55-1.02) H 06/13/17 23:00 Creat Clearance w eGFR 16.44 (>60) 06/13/17 15:32 POC Glucometer 258 UNITS (()) 06/13/17 23:19 Random Glucose 313 mg/dL (74-106) H* D 06/13/17 23:00 Calcium 8.8 mg/dL (8.5-10.1) 06/13/17 23:00 Total Bilirubin 0.3 mg/dL (0.2-1.0) 06/13/17 15:32 AST 19 U/L (15-37) 06/13/17 15:32 ALT 18 U/L (12-78) 06/13/17 15:32 Alkaline Phosphatase 132 U/L (45-117) H 06/13/17 15:32 Creatine Kinase 91 IU/L (26-192) 06/13/17 23:00 Troponin I 0.31 ng/ml (0.00-0.05) H 06/13/17 23:00 B-Natriuretic Peptide 1787.57 pg/ml (5-125) H 06/13/17 15:32 Total Protein 8.2 g/dl (6.4-8.2) 06/13/17 15:32 Albumin 3.7 g/dl (3.4-5.0) 06/13/17 15:32 CBC, BMP 06/13/17 15:32 06/13/17 23:00 ASSESSMENT/PLAN: Patient is a 62 YO AA F with PMH of CHF, IDDM, HTN, CAD(S/p CABG x 2 ) and asthma and anxiety , who presented to the ED today due to one week history of productive cough that got worse last couple days. in the ED was found to have elevated trop of 0.32 and was admitted for observation to R/O ACS. #- Troponin elevation : possibley demand vs renal failure vs ACS * Heart score of 5 * Pt has HX of HTN , CAD S/P CABG x 2 , and IDDM * First Trop o.32, second 0.31 continue ,trend trop * Repeat EKG * Aspirin 162 mg was given in ED. Will continue 81 mg daily * continue home meds Rosuvastatin 10mg PO daily, * Hydralazine 25 mg PO TID #- Cough - Asthma * In no acute asthma exacerbation * Likely viral vs allergies * continue Home meds Albuterol Neb Q 4H , and symbicort 2 inh PO BID # HTN, Urgency * 195/80 drop to 136/64 with Hydralazine IV * will continue home meds Hydralazine 25 mg PO TID. 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 #- Diastolic CHF , Chronic * stable , in no acute exacerbation, * last Echo in August 2016 shows EF- 51 % * continue jess meds Torsemide [Demadex -] 20 mg PO DAILY/Hydralazine HCl [ Apresoline -] 25 mg PO TID, #- IDDM, chronic * FS * RAISS * C/W Levemir 30 units HS * Diabetic Diet #- Chronic kidney disease * Cr base line around 3 * today Cr 2.9 * continue monitor * avoid nephrotoxins # Anxiety , chronic * continue home meds Clonazepam [KlonoPIN] 0.5 mg PO QID PRN #- DVT Proph, medium * SCDs * Heparin 5000 unit SQ Q8H #- F/E/N * F: On NO fluid * Electrolyte WNL * Diabetic/low sodium diet #Dispo: * Admit for observe * Full code
[2017-06-13] MEDS ORDERED: ATORVASTATIN CA 10 MG TABLET (FP) PO SCH (22:00)
[2017-06-13] MEDS ORDERED: INSULIN SLIDING SCALE (NOVOLOG) 1 VIAL SQ SCH (22:00)
[2017-06-13] MEDS ORDERED: ALBUTEROL SO4 0.083% IH SOL 2.5 MG/3 ML VIAL.NEB. NEB PRN (22:18)
[2017-06-13] MEDS: HEPARIN NA (PORCINE) 5,000 UNITS/ML 1ML VIAL SQ SCH (23:34)
[2017-06-13] MEDS: ROSUVASTATIN CA 10 MG TABLET (FP) PO SCH (23:35)
[2017-06-13] MEDS: hydrALAZINE HCL 25 MG TABLET (FP) PO SCH (23:35)
[2017-06-13] MEDS: INSULIN DETEMIR 100 UNITS/ML MDV SQ SCH (23:37)
[2017-06-13] MEDS: clonazePAM 0.5 MG TABLET PO PRN (23:37)
[2017-06-13 23:58] LABS: TROPONIN I 0.31 ng/ml (0.00-0.05)
[2017-06-14] MEDS ORDERED: ALBUTEROL SO4 0.083% IH SOL 2.5 MG/3 ML VIAL.NEB. NEB SCH
[2017-06-14 01:06] LABS: ANION GAP 11 (8-16); CALCIUM 8.8 mg/dL (8.5-10.1); CO2 27 mmol/L (21-32); CREATININE 2.9 mg/dL (0.55-1.02)
[2017-06-14 01:08] VITALS: BMI 39.6
[2017-06-14 01:09] LABS: GLUCOSE,RANDOM 313 mg/dL (74-106)
[2017-06-14] MEDS: HEPARIN NA (PORCINE) 5,000 UNITS/ML 1ML VIAL SQ SCH ×3 (06:25→21:38)
[2017-06-14] MEDS: hydrALAZINE HCL 25 MG TABLET (FP) PO SCH (06:25)
[2017-06-14] MEDS: INSULIN SLIDING SCALE (NOVOLOG) 1 VIAL SQ SCH ×4 (06:26→21:37)
[2017-06-14 06:53] LABS: MCH 25.9 pg (25.7-33.7); MCHC 33.3 g/dl (32.0-36.0); MEAN CELL VOLUME 77.7 fl (80-96); PLATELET COUNT 260 K/MM3 (134-434); WHITE BLOOD COUNT 7.3 K/mm3 (4.0-10.0)
[2017-06-14] MEDS ORDERED: INSULIN (NOVOLOG) ASPART 100 UNITS/ML 10ML VIAL ONE ×3 (06:53→21:30)
[2017-06-14 07:12] LABS: ACTIVATED PTT 31.6 SECONDS (26.9-34.4)
[2017-06-14 07:13] LABS: ANION GAP 6 (8-16); CALCIUM 8.7 mg/dL (8.5-10.1); CHOLESTEROL 228 mg/dL (50-200); CO2 30 mmol/L (21-32); CREATININE 2.8 mg/dL (0.55-1.02); GLUCOSE,RANDOM 122 mg/dL (74-106); LDL CHOLESTEROL (ONLY SJRH) 134 mg/dL (5-100)
[2017-06-14] MEDS ORDERED: PT OWN MED DRAWER 7, Y5N ONE ×3 (08:55→21:29)
[2017-06-14] MEDS: ASPIRIN 81 MG CHEWABLE TABLETS PO SCH (09:20)
[2017-06-14] MEDS: FERROUS SO4 325 MG TABLET (FP) PO SCH ×2 (09:20→21:38)
[2017-06-14] MEDS: TORSEMIDE 20 MG TABLET (FP) PO SCH (09:20)
--- NOTE | 2017-06-14 09:55 | CON.CARD ---
Consult Consult Specialty:: cardio Referred by:: hospitalist (for chacorta) Reason for Consultation:: troponin - History of Present Illness Chief Complaint: cough History of Present Illness: 62 female here for persistent/progressive cough. ongoing cough, +white sputum. has known asthma, and her bronchospastic sx's have been worse for the past 12 mo or so. has required escalation of airways tx by dr glass as outpt. recently had worsening cough > wheezing, with stable wt and none of her usual s/ sx of decompensated chf--given rx by dr glass. has been on torsemide 20mg qd lately with stable wts and renal fxn (baseline creat 2.5-2.6). has had no cp either. no sx's of abd bloating or leg swelling that accompanies her chf usually. no wheezing no palpitations PMH: CAD, PCIs diast chf pulm HTN CKD KATINA HTN HPL - Past Medical History Cardio/Vascular: Yes: AFIB, CAD, CHF, HTN, Hyperlipdemia, AL, Mitral Insufficiency, Pulmonary Hypertension Pulmonary: Yes: Sleep Apnea Renal/: Yes: Renal Failure, Renal Inusuff Endocrine: Yes: Diabetes Mellitus - Alcohol/Substance Use Hx Alcohol Use: No - Smoking History Smoking history: Never smoked Have you smoked in the past 12 months: No Aproximately how many cigarettes per day: 0 Home Medications - Allergies Allergies/Adverse Reactions: Allergies Allergy/AdvReac Type Severity Reaction Status Date / Time Penicillins Allergy Intermediate Hives Verified 06/13/17 13:58 Iodinated Contrast Media - Allergy Verified 06/13/17 13:58 Oral and [Iodinated Contrast Media - IV Dye] - Home Medications Home Medications: Ambulatory Orders Aspirin [ASA -] 81 mg PO DAILY #1 tab 03/06/13 Rosuvastatin Calcium [Crestor] 10 mg PO HS 01/16/14 Ferrous Sulfate [Feosol] 325 mg PO BID #0 ud 05/08/15 Prasugrel Hydrochloride [Effient -] 10 mg PO DAILY #0 tab 05/08/15 Albuterol 0.083% Nebulizer Bibiana [Ventolin 0.083% Nebulizer Soln -] 1 neb NEB QID 09/14/16 Torsemide [Demadex -] 20 mg PO DAILY #60 tablet 09/18/16 Nitroglycerin Patch [Nitro-Dur Patch -] 0.2 mg TD DAILY 12/05/16 Hydralazine HCl [Apresoline -] 25 mg PO TID #30 tablet 02/23/17 Insulin Glargine,Hum.rec.anlog [Lantus (nf)] 0 units SQ HS 04/29/17 Insulin Lispro [Humalog] 100 unit SQ PRN 04/29/17 Budesonide/Formeterol Fumarate [SYMBICORT 160/4.5mcg -] 2 inh PO BID 06/13/17 Clonazepam [KlonoPIN] 0.5 mg PO QID PRN 06/13/17 Carvedilol Phosphate [Coreg Cr -] 20 mg PO DAILY 06/14/17 Review of Systems - Review of Systems Constitutional: denies: Chills, Fever Eyes: denies: Eye Pain HENT: denies: Nasal Congestion Neck: denies: Stiffness Cardiovascular: denies: Palpitations Respiratory: denies: Orthopnea, PND Gastrointestinal: denies: Diarrhea, Rectal Bleeding Genitourinary: denies: Burning, Hematuria Musculoskeletal: denies: Muscle Pain Integumentary: denies: Rash Neurological: denies: Numbness, Seizure, Syncope Endocrine: denies: Excessive Sweating Hematology/Lymphatic: denies: Excessive Bleeding Vital Signs: Vital Signs Temperature 98.2 F 06/14/17 09:25 Pulse Rate 74 06/14/17 09:25 Respiratory Rate 18 06/14/17 09:25 Blood Pressure 170/70 06/14/17 09:25 O2 Sat by Pulse Oximetry (%) 96 06/14/17 06:08 Constitutional: Yes: No Distress, Calm, Obese Eyes: No: Sclera Icterus HENT: No: Nasal Congestion Neck: No: Decreased ROM Respiratory: Yes: CTA Bilaterally, Wheezes (anterior). No: Accessory Muscle Use , Rales Gastrointestinal: Yes: Normal Bowel Sounds. No: Distention, Hepatomegaly, Palpable Mass, Tenderness Cardiovascular: Yes: Regular Rate and Rhythm JVD: No Carotid Bruit: No PMI: Non-Displaced Heart Sounds: Yes: S1, S2. No: Gallop Murmur: No: Systolic Murmur, Diastolic Murmur Musculoskeletal: Yes: Other (No kyphosis) Extremities: No: Cold, Cyanosis Edema: No Peripheral Pulses: 2+ Left Carotid, 2+ Right Carotid, 2+ Left Doralis Pedis, 2+ Right Dorsalis Pedis Integumentary: No: Jaundice Neurological: Yes: Alert, Oriented (x3) Psychiatric: No: Agitated - Other Data Labs, Other Data: CBC, BMP 06/14/17 06:00 06/14/17 06:00 INR, PTT INR 1.00 (0.82-1.09) 06/14/17 06:00 Troponin, BNP 06/13/17 06/13/17 06/13/17 21:30 22:30 23:00 Troponin I Cancelled 0.31 H 0.31 H 06/14/17 06:00 Troponin I 0.30 H Troponin, BNP 06/13/17 06/13/17 06/13/17 21:30 22:30 23:00 Troponin I Cancelled 0.31 H 0.31 H 06/14/17 06:00 Troponin I 0.30 H Laboratory Tests 06/13/17 06/13/17 06/13/17 15:32 15:32 22:30 WBC Hgb Plt Count Sodium Potassium Carbon Dioxide BUN Creatinine Troponin I 0.32 H 0.31 H B-Natriuretic Peptide 1787.57 H Total LDL Cholesterol HDL Cholesterol 06/13/17 06/14/17 06/14/17 23:00 06:00 06:00 WBC 7.3 Hgb 10.0 L D Plt Count 260 Sodium 140 Potassium 4.0 Carbon Dioxide 30 BUN 58 H Creatinine 2.8 H Troponin I 0.31 H B-Natriuretic Peptide Total LDL Cholesterol 134 H HDL Cholesterol 75 H 06/14/17 06:00 WBC Hgb Plt Count Sodium Potassium Carbon Dioxide BUN Creatinine Troponin I 0.30 H B-Natriuretic Peptide Total LDL Cholesterol HDL Cholesterol tele: NSR Assessment/Plan Echo 01/15: nl LV/EF; dd2, hi E/e' = hi LAP. nl RV. mild LAE. mild-mod MR, mod TR. mild pHTN (46 mmHg). Echo 09/14/16: Low nl LVEF. RV not well seen. 1+ MR. Echo 03/2015: TDS, normal LV/RVF, no sig valv abn Dobut stress echo 10/2015: 7.34 min. 83% MPHR. HTN response. No EKG changes. TDS apex, portions of AW and basal PW not well seen. No ischemia, appropriate EF augmentation. (post PCI) CXR: clear lungs/pleura ECG x2 here (06/13 and 06/14): NSR, normal axis; LVH with repol; no path q's; no isch ST-Ts Assessment/Plan 61 year old f with known CAD--h/o NSTEMI '13 s/p LAD KAREN PCI 09/2013, and prox LCx KAREN PCI 2014, HTN, lone afib/PSVT, MR, pHTN, KATINA, NAFLD, HPL, CKD, anemia, IDDM who presents to the ED with shortness of breath. chronic diastolic CHF (acute on chronic HFPEF) - hx of "flash" pulmonary edema in the past--felt to be a combo of diast dysf and ischemic heart disease. Dry weight 247-250 lbs. - home dry wt running 241-244 for a while now, wt 238 here - bnp ranges 1600 - 3000s (i.e. the latter when decompensated). 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 as outpt - declined Cardiomems implant bronchospasm/asthma, acute exacerbation: -has had increase severity of sx's over past few months, now admitted for same -will try to decr coreg CR dose to 10mg, ? exacerbating bronchospasm -tx per pmd/pulm CAD: -s/p prox LCx KAREN PCI 2014 for crescendo angina, prior mLAD stent patent, prior PTCA'ed D2 [place], residual 70-80% distal RCA disease unchanged from prior cath 2012 --left for medical rx -trop 0.3 x4 here--no c/w ACS, due to hi LV filling pressures -ecg non-ischemic -sx's not consistent with ACS--no further w/u indicated - Continue home DAPT with ASA and Effient. cont crestor, coreg, NTG patch. - No ACEI given fluctuating renal function. HTN: - intolerant of multiple BP meds before--diovan, micardis, verap, norvasc, nifedipine, nisoldipine, catapres path - home regimen coreg CR 20, hydral 25 TID, nitro patch 0.2mg (BUCKNER with higher doses) - decr coreg dose, as above - will incr hydral to 37.5mg TID while here (note bp's to 180s b/c she has not been given coreg) - bp's tend to run higher in hosp--will likely need lower hydral dose at home ( takes it prn at home based on bp's b/c often too low and drops with sx's if takes hydral dose) HPL: - tolerating crestor 10 mg, zetia Myalgias w Atorva/Simva and high dose crestor - LDL >200 at baseline--130s here; same meds - declined PCSK-9 inhibitor trial KATINA / Mod PHTN - compliant with CPAP at home. - diastolic dysfunction likely also contributing to pHTN. ARF / CKD: - baseline creat runs 2.5-2.6 - higher here, suspect intravasc vol depletion (? insensible losses, decr po intake due to malaise/cough) Remote PAF and PSVT - lone AF episode in setting of dobutamine, no recurrence. No AC thought to be indicated - same plan
[2017-06-14] MEDS: BUDESONIDE/FORMETEROL FUMARATE 160/4.5 mcg INHALER IH SCH ×3 (10:00→21:39)
[2017-06-14] MEDS ORDERED: PRASUGREL HCL 10 MG TAB PO SCH (10:00)
[2017-06-14] MEDS ORDERED: ASPIRIN COATED 81 MG TABLET.EC PO SCH (10:00)
[2017-06-14] MEDS ORDERED: diphenhydrAMINE HCL 25 MG CAPSULE (FP) PO ONE (11:45)
--- NOTE | 2017-06-14 12:32 | EKG ---
Test Reason : Blood Pressure : / mmHG Vent. Rate : 079 BPM Atrial Rate : 079 BPM P-R Int : 192 ms QRS Dur : 090 ms QT Int : 410 ms P-R-T Axes : 056 003 104 degrees QTc Int : 470 ms NORMAL SINUS RHYTHM MINIMAL VOLTAGE CRITERIA FOR LVH, MAY BE NORMAL VARIANT NONSPECIFIC T WAVE ABNORMALITY PROLONGED QT ABNORMAL ECG WHEN COMPARED WITH ECG OF 13-JUN-2017 14:26, T WAVE VARIATION Confirmed by YELITZA LEWIS, JAMES ([id number]) on 06/14/2017 12:31:58 PM Referred By: PADMINI CURIEL Confirmed By:JAMES TORRE MD
--- NOTE | 2017-06-14 12:38 | EKG ---
Test Reason : Blood Pressure : / mmHG Vent. Rate : 081 BPM Atrial Rate : 081 BPM P-R Int : 198 ms QRS Dur : 088 ms QT Int : 390 ms P-R-T Axes : 055 006 077 degrees QTc Int : 453 ms NORMAL SINUS RHYTHM NONSPECIFIC T WAVE ABNORMALITY ABNORMAL ECG WHEN COMPARED WITH ECG OF 29-APR-2017 12:21, PREMATURE SUPRAVENTRICULAR COMPLEXES ARE NO LONGER PRESENT T WAVE VARIATION Confirmed by YELITZA LEWIS, JAMES ([id number]) on 06/14/2017 12:38:13 PM Referred By: Confirmed By:JAMES TORRE MD
[2017-06-14] MEDS: PRASUGREL HCL 10 MG TAB PO SCH (12:52)
[2017-06-14] MEDS: NITROGLYCERIN 0.2 MG/HOUR TD PATCH TD SCH (12:52)
[2017-06-14] MEDS: CARVEDILOL PHOSPHATE CR 10 MG CAPSULE PO SCH (12:52)
[2017-06-14] MEDS: PANTOPRAZOLE 40 MG TABLET (FP) PO SCH (12:55)
--- NOTE | 2017-06-14 12:57 | PN ---
Progress Note (short form) - Note Progress Note: PULMONARY CONSULTATION DICTATED 06/14/17 IMP CHRONIC PERSISTENT ASTHMA WITH ACUTE EXACERBATION ASHD S/P STENT ELEVATED TROPONIN S/P NC IDDM KATINA ON CPAP 11cm/h20 HTN ACUTE ON CHRONIC RENAL FAILURE PLAN IV STEROIDS INHALED BRONCHODILATTORS NASAL O2 MONITOR PEAK FLOW ROBITUSSIN MONITOR LYTE,RENAL FUNCTION DR BENDER Problem List - Problems (1) Asthma exacerbation Code(s): J45.901 - UNSPECIFIED ASTHMA WITH (ACUTE) EXACERBATION (2) HTN (hypertension) Code(s): I10 - ESSENTIAL (PRIMARY) HYPERTENSION Qualifiers: Hypertension type: unspecified secondary hypertension Qualified Code(s) : I15.9 - Secondary hypertension, unspecified; I15 - Secondary hypertension (3) Anemia Code(s): D64.9 - ANEMIA, UNSPECIFIED (4) IDDM (insulin dependent diabetes mellitus) Code(s): E11.9 - TYPE 2 DIABETES MELLITUS WITHOUT COMPLICATIONS 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
--- NOTE | 2017-06-14 13:44 | CONSULT ---
Consult Consult Specialty:: Nephrology ( Jose/ Jose Roberto) Referred by:: Dr. Daniel Reason for Consultation:: Abnormal kidney functions - History of Present Illness Chief Complaint: This is a 62 y/o AA female, admitted with intractable cough and shortness of breath. The patient has h/o COPD, Br. asthma. The cough is getting worse since admission. History of Present Illness: The patient has h/o COPD, Bronchial asthma, Insulin Dependent Diabetes mellitus , Hypertension, Myocardial Indaction, S/p PTIC, Chronic kidney Disease Stage 4, with a eGFR of 23 ml/min/1.73m2. The patient denies any chest pain. No fever. No urinary complaints. Brings up while sputum. - History Source History Provided By: Patient, Medical Record - Past Medical History Cardio/Vascular: Yes: AFIB, CAD, CHF, HTN, Hyperlipdemia, [place], Mitral Insufficiency, Pulmonary Hypertension Pulmonary: Yes: Sleep Apnea Renal/: Yes: Renal Failure Heme/Onc: Yes: Anemia Endocrine: Yes: Diabetes Mellitus - Past Surgical History Past Surgical History: Yes: Stent - Alcohol/Substance Use Hx Alcohol Use: No - Smoking History Smoking history: Never smoked Have you smoked in the past 12 months: No Aproximately how many cigarettes per day: 0 Home Medications - Allergies Allergies/Adverse Reactions: Allergies Allergy/AdvReac Type Severity Reaction Status Date / Time Penicillins Allergy Intermediate Hives Verified 06/13/17 13:58 Iodinated Contrast Media - Allergy Verified 06/13/17 13:58 Oral and [Iodinated Contrast Media - IV Dye] - Home Medications Home Medications: Ambulatory Orders Aspirin [ASA -] 81 mg PO DAILY #1 tab 03/06/13 Rosuvastatin Calcium [Crestor] 10 mg PO HS 01/16/14 Ferrous Sulfate [Feosol] 325 mg PO BID #0 ud 05/08/15 Prasugrel Hydrochloride [Effient -] 10 mg PO DAILY #0 tab 05/08/15 Albuterol 0.083% Nebulizer Bibiana [Ventolin 0.083% Nebulizer Soln -] 1 neb NEB QID 09/14/16 Torsemide [Demadex -] 20 mg PO DAILY #60 tablet 09/18/16 Nitroglycerin Patch [Nitro-Dur Patch -] 0.2 mg TD DAILY 12/05/16 Hydralazine HCl [Apresoline -] 25 mg PO TID #30 tablet 02/23/17 Insulin Glargine,Hum.rec.anlog [Lantus (nf)] 0 units SQ HS 04/29/17 Insulin Lispro [Humalog] 100 unit SQ PRN 04/29/17 Budesonide/Formeterol Fumarate [SYMBICORT 160/4.5mcg -] 2 inh PO BID 06/13/17 Clonazepam [KlonoPIN] 0.5 mg PO QID PRN 06/13/17 Carvedilol Phosphate [Coreg Cr -] 20 mg PO DAILY 06/14/17 Review of Systems - Review of Systems Constitutional: reports: Loss of Appetite Eyes: denies: Blurred Vision, Double Vision HENT: denies: Difficult Swallowing Cardiovascular: reports: Shortness of Breath. denies: Chest Pain Respiratory: reports: Cough (Intractable), Exercise Intolerance, Orthopnea, SOB , SOB on Exertion, Wheezing Genitourinary: denies: Dysuria, Flank Pain, Frequency, Incontinence Musculoskeletal: denies: Back Pain Neurological: reports: No Symptoms Physical Exam Vital Signs: Vital Signs Temperature 98.2 F 06/14/17 09:25 Pulse Rate 74 06/14/17 09:25 Respiratory Rate 18 06/14/17 09:25 Blood Pressure 170/70 06/14/17 09:25 O2 Sat by Pulse Oximetry (%) 96 06/14/17 06:08 Constitutional: Yes: Moderate Distress Eyes: Yes: Conjunctiva Clear HENT: Yes: Normocephalic Neck: Yes: Trachea Midline Cardiovascular: Yes: Regular Rate and Rhythm, S1, S2 Respiratory: Yes: Regular, Diminished, Hyperresonant, Poor Air Entry, Rales, Rhonchi Gastrointestinal: Yes: Normal Bowel Sounds, Abdomen, Obese. No: Palpable Mass, Pulsatile Mass Renal/: No: CVA Tenderness - Left, CVA Tenderness - Right Musculoskeletal: No: Back Pain, Joint Stiffness, Joint Swelling Neurological: Yes: Alert, Oriented Labs: CBC, BMP 06/14/17 06:00 06/14/17 06:00 Problem List - Problems (1) ASHD (arteriosclerotic heart disease) Code(s): I25.10 - ATHSCL HEART DISEASE OF [place] CORONARY ARTERY W/O ANG PCTRS (2) Asthma exacerbation Code(s): J45.901 - UNSPECIFIED ASTHMA WITH (ACUTE) EXACERBATION (3) HTN (hypertension) Code(s): I10 - ESSENTIAL (PRIMARY) HYPERTENSION Qualifiers: Hypertension type: unspecified secondary hypertension Qualified Code(s) : I15.9 - Secondary hypertension, unspecified; I15 - Secondary hypertension (4) Anemia Code(s): D64.9 - ANEMIA, UNSPECIFIED (5) CHF (congestive heart failure) Code(s): I50.9 - HEART FAILURE, UNSPECIFIED Qualifiers: Congestive heart failure type: unspecified congestive heart failure type Congestive heart failure chronicity: acute on chronic Qualified Code(s): I50.9 - Heart failure, unspecified (6) IDDM (insulin dependent diabetes mellitus) Code(s): E11.9 - TYPE 2 DIABETES MELLITUS WITHOUT COMPLICATIONS Z79.4 - DELIVERY DRIVER/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 asthma. There is no overt evidence of an active Respiratory infection. Patient receiving IV Steroids, Nebulizer brochodilators and O2. 2. The patient has underlying Chronic Kidney Disease Stage 4 , from Chronic Microvascular Renal disease ( HTN/ DM2/ Atherosclerosis). 3. Hypertension, Suboptimally controlled. Will increase the dose of Hydralazine , and add low dose Amlodipine. Even though ACEI/or ARB drugs are useful in these patients, it is likely that they might worsen her renal functions to levels that may need more than just conservative interventions. 4. Anemia, of Chronic Kidney Disease. Suggest: As outlined above. No detailed w/u ordered at this point. Will monitor the Renal functions with you. Thanks again for this consult referral. Tamara Garcia MD
[2017-06-14] MEDS: ALBUTEROL SO4 0.083% IH SOL 2.5 MG/3 ML VIAL.NEB. NEB PRN ×2 (13:52→20:07)
[2017-06-14] MEDS ORDERED: hydrALAZINE HCL 25 MG TABLET (FP) PO SCH (14:00)
[2017-06-14] MEDS: methylPREDNISolone NA SUCC 40 MG/1 ML VIAL IVPB SCH ×2 (14:09→17:32)
[2017-06-14] MEDS ORDERED: amLODIPine BESYLATE 2.5 MG TABLET (FP) PO ONE (14:15)
--- NOTE | 2017-06-14 14:28 | PN ---
Teaching Attending Note Name of Resident: eKyur Jiemnez ATTENDING PHYSICIAN STATEMENT I saw and evaluated the patient. I reviewed the resident's note and discussed the case with the resident. I agree with the resident's findings and plan as documented. SUBJECTIVE: Patient complains of cough with eating. OBJECTIVE: Vital Signs Period Temp Pulse Resp BP Sys/Shankar Pulse Ox Last 24 Hr 97.8 F-99.2 F 74-93 16-18 134-195/62-89 95-99 HEART: S1S2, RRR LUNGS: Few wheezes bilaterally ABDOMEN: Obese, soft, non-tender, non-distended, normal BS EXTREMITIES: No edema ASSESSMENT AND PLAN: This is a 62-year-old woman with a history of chronic diastolic heart failure, type 2 DM, HTN, hyperlipidemia, CAD, CABG, asthma, KATINA, anxiety, pulm HTN, PAF who presented to the ER with a worsening cough. 1. Elevated troponin in a patient with SOB and history of CAD - Continue to monitor on telemetry - Troponin 0.32 -> 0.31 -> 0.31 -> 0.30 - Cardiology consult appreciated - No evidence of acute coronary syndrome 2. Cough - Treat asthma exacerbation - Protonix started for possible GERD - Dysphagia evaluation 3. Acute exacerbation of chronic persistent asthma - Pulmonary consult appreciated - SoluMedrol started - Continue Symbicort, albuterol as needed 4. CAD, history of CABG - Continue aspirin, Coreg, Nitropatch, Crestor, Effient 5. Hypertensive urgency - Improved with Hydralazine IV 6. Hypertension - Continue Coreg, Hydralazine, Demadex 7. Hyperlipidemia - Continue Crestor 8. Chronic diastolic heart failure - Stable - Continue Demadex 9. Stage 4 CKD 10. Type 2 DM - Continue Levemir, Novolog sliding scale 11. Anxiety - Continue Klonopin as needed 12. KATINA - Continue CPAP at night 13. Paroxysmal atrial fibrillation - Currently in SR 14. Pulmonary HTN
--- NOTE | 2017-06-14 14:39 | PN ---
Physical Exam: SUBJECTIVE: Patient seen and examined No acute events overnight. Patient complaining of cough this morning, which has improved since yesterday OBJECTIVE: Vital Signs Period Temp Pulse Resp BP Sys/Shankar Pulse Ox Last 24 Hr 97.8 F-99.2 F 74-85 16-18 134-183/62-89 96-99 GENERAL: The patient is awake, alert, and fully oriented, in no acute distress. HEAD: Normal with no signs of trauma. EYES: extraocular movements intact, sclera anicteric, conjunctiva clear. No ptosis. ENT: Oropharynx clear without exudates, moist mucous membranes. NECK: Trachea midline, full range of motion, supple. LUNGS: Breath sounds equal, clear to auscultation bilaterally, no wheezes, no crackles, no accessory muscle use. HEART: Regular rate and rhythm, S1, S2 without murmur, rub or gallop. ABDOMEN: Soft, nontender, nondistended, normoactive bowel sounds, no guarding, no rebound, no hepatosplenomegaly, no masses. EXTREMITIES: 2+ radial/dp pulses, warm, well-perfused, no edema. NEUROLOGICAL: Cranial nerves II through XII grossly intact. Normal speech, gait appropriate PSYCH: Normal mood, normal affect. SKIN: Warm, dry, normal turgor, no rashes or lesions noted Laboratory Results - last 24 hr 06/13/17 06/13/17 06/13/17 21:30 22:00 22:30 WBC RBC Hgb Hct MCV MCH MCHC RDW Plt Count MPV INR PTT (Actin FS) Sodium Cancelled Potassium Cancelled Chloride Cancelled Carbon Dioxide Cancelled Anion Gap Cancelled BUN Cancelled Creatinine Cancelled POC Glucometer Random Glucose Cancelled Hemoglobin A1c % Calcium Cancelled Creatine Kinase Cancelled Troponin I Cancelled 0.31 H Triglycerides Cholesterol Total LDL Cholesterol HDL Cholesterol 06/13/17 06/13/17 06/14/17 23:00 23:19 06:00 WBC 7.3 RBC 3.87 Hgb 10.0 L D Hct 30.0 L MCV 77.7 L MCH 25.9 MCHC 33.3 RDW 13.0 Plt Count 260 MPV 8.0 INR PTT (Actin FS) Sodium 138 Potassium 4.0 Chloride 100 Carbon Dioxide 27 Anion Gap 11 BUN 61 H Creatinine 2.9 H POC Glucometer 258 Random Glucose 313 H* D Hemoglobin A1c % Calcium 8.8 Creatine Kinase 91 Troponin I 0.31 H Triglycerides Cholesterol Total LDL Cholesterol HDL Cholesterol 06/14/17 06/14/17 06/14/17 06:00 06:00 06:00 WBC RBC Hgb Hct MCV MCH MCHC RDW Plt Count MPV INR 1.00 PTT (Actin FS) 31.6 Sodium 140 Potassium 4.0 Chloride 104 Carbon Dioxide 30 Anion Gap 6 L BUN 58 H Creatinine 2.8 H POC Glucometer Random Glucose 122 H D Hemoglobin A1c % 9.8 H D Calcium 8.7 Creatine Kinase Troponin I Triglycerides 129 Cholesterol 228 H Total LDL Cholesterol 134 H HDL Cholesterol 75 H 06/14/17 06/14/17 06/14/17 06:00 06:00 12:18 WBC RBC Hgb Hct MCV MCH MCHC RDW Plt Count MPV INR PTT (Actin FS) Sodium Potassium Chloride Carbon Dioxide Anion Gap BUN Creatinine POC Glucometer 127 250 Random Glucose Hemoglobin A1c % Calcium Creatine Kinase Troponin I 0.30 H Triglycerides Cholesterol Total LDL Cholesterol HDL Cholesterol Active Medications Generic Name Dose Route Start Last Admin Trade Name Freq PRN Reason Stop Dose Admin Acetaminophen 650 mg 06/13/17 21:29 Tylenol - PO Q4H PRN FEVER OR PAIN Albuterol Sulfate 1 amp 06/14/17 13:02 06/14/17 13:52 Ventolin 0.083% Nebulizer Soln - NEB 1 amp Q4H PRN Administration SHORT OF BREATH/WHEEZING Aspirin 81 mg 06/14/17 10:00 06/14/17 09:20 Asa - PO 81 mg DAILY LALO Administration Budesonide/Formoterol Fumarate 2 puff 06/14/17 08:00 06/14/17 12:52 Symbicort 160/4.5mcg - IH 2 puff BID LALO Administration Carvedilol 10 mg 06/14/17 11:30 06/14/17 12:52 Coreg Cr - PO 10 mg DAILY LALO Administration Clonazepam 0.5 mg 06/13/17 21:42 06/13/17 23:37 Klonopin - PO 0.5 mg QID PRN Administration ANXIETY Ferrous Sulfate 325 mg 06/14/17 10:00 06/14/17 09:20 Feosol - PO 325 mg BID LALO Administration Heparin Sodium (Porcine) 5,000 unit 06/13/17 22:00 06/14/17 14:12 Heparin - SQ 5,000 unit TID LALO Administration Hydralazine HCl 50 mg 06/14/17 14:00 Apresoline - PO TID LALO Insulin Aspart 1 vial 06/13/17 22:13 06/14/17 12:20 Novolog Vial Sliding Scale - SQ 4 units ACHS LALO Administration Protocol Insulin Detemir 30 units 06/13/17 22:00 06/13/17 23:37 Levemir Vial SQ 30 units HS LALO Administration Methylprednisolone Sodium Succinate 40 mg 06/14/17 13:00 06/14/17 14:09 Solu-Medrol - IVPB 40 mg Q8H-IV LALO Administration Nitroglycerin 0.2 mg 06/14/17 10:00 06/14/17 12:52 Nitro-Dur Patch - TD 0.2 mg DAILY LALO Administration Pantoprazole Sodium 40 mg 06/14/17 11:45 06/14/17 12:55 Protonix - PO Not Given DAILY LALO Prasugrel 10 mg 06/14/17 10:00 06/14/17 12:52 Effient - PO 10 mg DAILY LALO Administration Rosuvastatin Calcium 10 mg 06/13/17 22:00 06/13/17 23:35 Crestor - PO 10 mg HS LALO Administration Torsemide 20 mg 06/14/17 10:00 06/14/17 09:20 Demadex - PO 20 mg DAILY LALO Administration ASSESSMENT/PLAN: 62 yo F with PMH of CHF, IDDM, HTN, CAD(S/p CABG x 2 stents), asthma, and anxiety presented to the ED with 1 week history of cough found to have elevated trop of 0.32 and was admitted for observation to R/o ACS #- Troponin elevation : possibley demand vs renal failure vs ACS * Heart score of 5 * Pt has Hx of HTN , CAD S/P CABG x 2 stents , and IDDM * First Trop 0.32, second 0.31 continue, third trop is 0.30 * Aspirin 162 mg was given in ED. Will continue 81 mg daily * ekg monitor * Cardiology following, Dr. Chen #- Cough - Asthma * In no acute asthma exacerbation * Likely viral vs allergies * Continue Home meds Albuterol Neb Q 4H , and symbicort 2 inh PO BID * Pulmonary following, Dr. Huang # HTN, Urgency * 172/80 * monitor BP * Started on Coreg CR 10 mg PO daily * Hydralazine 50 mg PO TID * Amlodipine 2.5 mg PO daily #- Diastolic CHF , Chronic * stable , in no acute exacerbation, * last Echo in August 2016 shows EF- 51 % * continue home meds Torsemide [Demadex -] 20 mg PO DAILY/Hydralazine HCl [ Apresoline -] 50 mg PO TID, #- IDDM, chronic * FS * RAISS * C/W Levemir 30 units HS * Diabetic Diet #- Chronic kidney disease, stage 4 * Cr base line around 3 * today Cr 2.9 * continue to monitor * avoid nephrotoxins * Nephrology following, Dr. Garcia # Anxiety , chronic * Continue home meds Clonazepam [KlonoPIN] 0.5 mg PO QID PRN # HLD * Continue crestor 10 mg PO hs #- DVT Proph, medium * SCDs * Heparin 5000 unit SQ TID #- F/E/N * F: On NO fluid * Electrolyte WNL * Diabetic/low sodium diet Visit type - Emergency Visit Emergency Visit: No - New Patient This patient is new to me today: Yes Date on this admission: 06/14/17 - Critical Care Critical Care patient: No
[2017-06-14] MEDS: hydrALAZINE HCL 50 MG TABLET (FP) PO SCH ×2 (14:43→21:38)
--- NOTE | 2017-06-14 16:46 | CONSULT ---
Admitting History and Physical - Past Medical History Cardiovascular: Yes: AFIB, CAD, CHF, HTN, Hyperlipdemia, [place], Mitral Insufficiency, Pulmonary Hypertension Pulmonary: Yes: Sleep Apnea Renal/: Yes: Renal Failure Heme/Onc: Yes: Anemia Endocrine: Yes: Diabetes Mellitus - Past Surgical History Past Surgical History: Yes: Stent - Smoking History Smoking history: Never smoked Have you smoked in the past 12 months: No Aproximately how many cigarettes per day: 0 - Alcohol/Substance Use Hx Alcohol Use: No History - Admission Reason For Visit: ELEVATED TROPONIN 1 LEVEL - Hearing Hearing: Normal Hearing Aide: No With Patient: No Speech Evaluation - Communication Primary Language: LIBYAN Communication: Yes: Within Normal Limits Oral Expression Ability: Yes: No Impairment - Speech Production Apraxia: No Able to Make Needs Known: Yes: WNL Intelligibility: Yes: WNL - Speech Characteristics Voice Loudness: Normal Voice Pitch: Yes: Normal, [place] Low Voice Phonatory-based Quality: Yes: Breathy, Strident Speech Pattern: Normal Nasal Resonance: Normal Articulation: Yes: Precise Rate of Speech: Intact - Language/Auditory Comprehension Follows: Yes: 1 Stage Simple Commands (WFL), 2 Stage Simple Commands (WFL), Complex Commands (WFL) Observation: Able to respond to yes/no queries: Yes, Yes/No Confusion: No, Comprehends Conversational Speech: Yes, Benefits from Slow Speech: No, Benefits from Repetiton: No - Language/Verbal Expression Able to Respond to Simple Queries: Yes: WNL Able to Communicate Wants and Needs: Yes: WNL Functional Communication Status: Yes: WNL Aware of Errors: Yes Attempts to Correct Errors: Yes Use of Gestures: No Written Expression: Not examined Oral Expression: WFL Reading Comprehension: Not examined Calculations: Not examined Attention: Yes: Intact - Memory/Perception alf Memory: Yes: WNL Short Term Memory: Yes: WNL - Swallow Evaluation/Bedside Assessment Current Nutritional Intake: Regular, Thin Liquids Oral Secretions: Yes: WFL Tracheostomy Present: No Patient on Ventilator: No Dentition: Yes: Adequate Facial Symmetry at Rest: Symmetrical Facial Symmetry on Retraction: Symmetrical Facial Movement: Controlled Sensation: Normal Facial Comment: WFL for speech and swallowing purposes. Jaw Position: Closed at Rest Against Resistance Opening: Normal Against Resistance Closing: Normal Pucker Lips: Normal Smile: Normal Lips, Comment: WFL for speech and swallowing purposes. Lingual Movement: Normal Lingual Speed of Movement: Normal Lingual Movement Strgth Against Opposition: Normal Lingual Movement Characteristics: Normal Lingual Comment: WFL for speech and swallowing purposes. Soft Palate Description: Normal Color, Narrow Arch Hard Palate Description: Normal Color, Narrow Arch Gag Reflex: Strong Bite Reflex: Present Velopharyngeal Movement: Normal Laryngeal Elevation: WFL Laryngeal Movement: Able to Palpate Needs Assistance: No Rate of Intake: WFL Bolus Size: WFL Labial Seal: WFL Chewing: WFL Oral Prep Time: WFL A-P Transit: WFL Timing of Swallow: WFL Other Findings/Remarks: 62 yo female seen at chairside on unit for swallow eval to rule out dysphagia, Pt is verbal, A&Ox3, cooperative. Pt admitted to [facility] for persistent productive cough. PHMX includes: CHF, CAD, HLD, HTN, and asthma. Airway protection is adequate. Vocal quality is reduced with stridor. Productive cough may be asthma related. Pt given po trials of pureed, regular solids without assistance revealed good acceptance, adequate bolus control and transport. Pharyngeal swallows appear timely with no cough or aspiration-like behaviors. Pt did report that sometimes she feel bolus getting stuck in her throat and it takes a few swallows to clear it out. Thin liquids trials via cup and straw without assistance were unremarkable for dysphagia and / or aspiration at this time. Recommendations - Speech Evaluation, Impression/Plan Impression: Pt presents with minimal s/s of pharyngeal phase dysphagia for solids and liquids with no s/s aspiration at this time. [employer] Bullet Maker Goals: tolerate the least restrictive diet consistency without s/s of aspiration. Short Term Goals: tolerate the least restrictive diet consistency without s/s of aspiration. - Dysphagia Impressions/Plan Swallowing Skills: WF Dysphagia Impressions: Minimal Impairment, Risk of Aspiration *Silent aspiration: cannot be R/O at bedside Dysphagia Treatment Plan: Chin Tuck/Down (to assist with clearing out bolus into the esophagus.), Safe Rate, 1/2 tsp. at a time, OOB for meals, OOB for 1 h. after meals, Other (alternate liquids for every 2-3 bites of solids for liquid washdown.) Dysphagia Evaluation Summary: Continue regular solids (NA controlled) with thin liquids as tolerated. OOB for meals. Observe standard aspiration precautions. Results given to gas charger and to pcp via chart. Recommendations: GI Consult (consider to determine esophagus function.), Modified Barium Swallow (consider to determine if bolus is in danger of aspiration.) - Recommendations Diet Consistency: Regular Medication Administration: Whole with water Liquids: Thin Liquids
[2017-06-14] MEDS ORDERED: cloNIDine HCL 0.1 MG TABLET PO ONE (18:32)
[2017-06-14] MEDS: INSULIN DETEMIR 100 UNITS/ML MDV SQ SCH (21:37)
[2017-06-14] MEDS: clonazePAM 0.5 MG TABLET PO PRN (21:38)
[2017-06-14] MEDS: ROSUVASTATIN CA 10 MG TABLET (FP) PO SCH (21:38)
[2017-06-15] MEDS ORDERED: PT OWN MED DRAWER 7, Y5N ONE ×6 (00:44→22:51)
[2017-06-15] MEDS: methylPREDNISolone NA SUCC 40 MG/1 ML VIAL IVPB SCH ×3 (01:47→17:55)
[2017-06-15] MEDS: hydrALAZINE HCL 50 MG TABLET (FP) PO SCH ×3 (06:00→22:18)
[2017-06-15] MEDS: HEPARIN NA (PORCINE) 5,000 UNITS/ML 1ML VIAL SQ SCH ×3 (06:00→22:19)
[2017-06-15] MEDS: INSULIN SLIDING SCALE (NOVOLOG) 1 VIAL SQ SCH ×4 (06:00→22:26)
[2017-06-15] MEDS ORDERED: INSULIN (NOVOLOG) ASPART 100 UNITS/ML 10ML VIAL ONE ×6 (06:59→22:11)
[2017-06-15] MEDS ORDERED: INSULIN DETEMIR 100 UNITS/ML MDV SQ ONE (06:59)
[2017-06-15 07:27] LABS: BASOPHIL 0.2 % (0-2.0); MCH 26.3 pg (25.7-33.7); MCHC 34.1 g/dl (32.0-36.0); MEAN PLT VOLUME 8.2 fl (7.5-11.1); NEUTROPHILS 86.2 % (42.8-82.8); PLATELET COUNT 277 K/MM3 (134-434); RDW 12.7 % (11.6-15.6); WHITE BLOOD COUNT 9.5 K/mm3 (4.0-10.0)
[2017-06-15 07:52] LABS: ALBUMIN 3.2 g/dl (3.4-5.0); ANION GAP 13 (8-16); CALCIUM 8.6 mg/dL (8.5-10.1); CO2 24 mmol/L (21-32); SGOT/AST 17 U/L (15-37); TOT PROT 7.3 g/dl (6.4-8.2)
[2017-06-15 07:54] LABS: ALK PHOS 111 U/L (45-117); BILIRUBIN,TOTAL 0.3 mg/dL (0.2-1.0); CREATININE 2.9 mg/dL (0.55-1.02); SGPT/ALT 16 U/L (12-78)
[2017-06-15 09:15] LABS: GLUCOSE,RANDOM 302 mg/dL (74-106)
[2017-06-15] MEDS: BUDESONIDE/FORMETEROL FUMARATE 160/4.5 mcg INHALER IH SCH ×2 (09:32→22:26)
[2017-06-15] MEDS: FERROUS SO4 325 MG TABLET (FP) PO SCH ×2 (09:33→22:18)
[2017-06-15] MEDS: PRASUGREL HCL 10 MG TAB PO SCH (09:33)
[2017-06-15] MEDS: CARVEDILOL PHOSPHATE CR 10 MG CAPSULE PO SCH (09:33)
[2017-06-15] MEDS: TORSEMIDE 20 MG TABLET (FP) PO SCH (09:33)
[2017-06-15] MEDS: ASPIRIN 81 MG CHEWABLE TABLETS PO SCH (09:33)
[2017-06-15] MEDS: ALBUTEROL SO4 0.083% IH SOL 2.5 MG/3 ML VIAL.NEB. NEB PRN ×2 (09:50→21:50)
[2017-06-15] MEDS ORDERED: amLODIPine BESYLATE 2.5 MG TABLET (FP) PO SCH (10:00)
--- NOTE | 2017-06-15 10:14 | PN ---
Progress Note, ELECTRONICS REPAIR TECHNICIAN - Note Progress Note: 62 yo female seen on unit as a follow up to swallow eval (06/14/17) with recommendations for regular solids and thin liquids as tolerated. Pt reports that she able to consume meals but still has the feeling of bolus status occasionally. Chart review of meal intake revealed good acceptance with better than 75% consumed. Continue regular solids and thin liquids as tolerated. Alternate liquids for every 2-4 bites of solids for liquid washdown. OOB for meals and 30 minutes post meal . Consider MBS to determine if bolus status posing a risk for silent aspiration. Results given to supervisor in charge and pcp via chart
[2017-06-15] MEDS: NITROGLYCERIN 0.2 MG/HOUR TD PATCH TD SCH (10:29)
[2017-06-15] MEDS: PANTOPRAZOLE 40 MG TABLET (FP) PO SCH (10:30)
--- NOTE | 2017-06-15 10:52 | PN ---
Progress Note (short form) - Note Progress Note: s: no cp palps dizzy; still sob but a little better today o: Vital Signs Period Temp Pulse Resp BP Sys/Shankar Pulse Ox Last 24 Hr 98 F-98.5 F 55-87 16-20 148-196/57-98 96-97 Constitutional: Yes: No Distress, Calm, Obese Eyes: No: Sclera Icterus Respiratory: Yes: CTA Bilaterally, Wheezes. No: Accessory Muscle Use, Rales Gastrointestinal: Yes: Normal Bowel Sounds. No: Distention, Hepatomegaly, Palpable Mass, Tenderness Cardiovascular: Yes: Regular Rate and Rhythm JVD: No Heart Sounds: Yes: S1, S2. No: Gallop Murmur: No: Systolic Murmur, Diastolic Murmur Extremities: No: Cold, Cyanosis Edema: No Integumentary: No: Jaundice diaphoresis Neurological: Yes: Alert, Oriented (x3) Psychiatric: No: Agitated - Other Data Labs, Other Data: Current Medications Generic Name Dose Route Start Last Admin Trade Name Freq PRN Reason Stop Dose Admin Acetaminophen 650 mg 06/13/17 21:29 Tylenol - PO Q4H PRN FEVER OR PAIN Albuterol Sulfate 1 amp 06/14/17 13:02 06/15/17 09:50 Ventolin 0.083% Nebulizer Soln - NEB 1 amp Q4H PRN Administration SHORT OF BREATH/WHEEZING Amlodipine Besylate 2.5 mg 06/15/17 10:00 06/15/17 09:33 Norvasc - PO 2.5 mg DAILY LALO Administration Aspirin 81 mg 06/14/17 10:00 06/15/17 09:33 Asa - PO 81 mg DAILY [facility]ALO Administration Budesonide/Formoterol Fumarate 2 puff 06/14/17 08:00 06/15/17 09:32 Symbicort 160/4.5mcg - IH 2 puff BID LALO Administration Carvedilol 10 mg 06/14/17 11:30 06/15/17 09:33 Coreg Cr - PO 10 mg DAILY [facility]O Administration Clonazepam 0.5 mg 06/13/17 21:42 06/14/17 21:38 Klonopin - PO 0.5 mg QID PRN Administration ANXIETY Ferrous Sulfate 325 mg 06/14/17 10:00 06/15/17 09:33 Feosol - PO 325 mg BID LALO Administration Heparin Sodium (Porcine) 5,000 unit 06/13/17 22:00 06/15/17 06:00 Heparin - SQ 5,000 unit TID LALO Administration Hydralazine HCl 50 mg 06/14/17 14:00 06/15/17 06:00 Apresoline - PO 50 mg TID LALO Administration Insulin Aspart 1 vial 06/13/17 22:13 06/15/17 06:00 Novolog Vial Sliding Scale - SQ 8 units ACHS LALO Administration Protocol Insulin Detemir 30 units 06/13/17 22:00 06/14/17 21:37 Levemir Vial SQ 30 units HS [facility]O Administration Methylprednisolone Sodium Succinate 40 mg 06/14/17 13:00 06/15/17 09:32 Solu-Medrol - IVPB 40 mg Q8H-IV [facility]O Administration Nitroglycerin 0.2 mg 06/14/17 10:00 06/15/17 10:29 Nitro-Dur Patch - TD 0.2 mg DAILY [facility]O Administration Pantoprazole Sodium 40 mg 06/14/17 11:45 06/15/17 10:30 Protonix - PO 40 mg DAILY [facility]O Administration Prasugrel 10 mg 06/14/17 10:00 06/15/17 09:33 Effient - PO 10 mg DAILY [facility]O Administration Rosuvastatin Calcium 10 mg 06/13/17 22:00 06/14/17 21:38 Crestor - PO 10 mg HS [facility]ALO Administration Torsemide 20 mg 06/14/17 10:00 06/15/17 09:33 Demadex - PO 20 mg DAILY [facility]O Administration CBC, BMP 06/15/17 05:35 06/15/17 05:35 tele: NSR Echo 01/15: nl LV/EF; dd2, hi E/e' = hi LAP. nl RV. mild LAE. mild-mod MR, mod TR. mild pHTN (46 mmHg). Echo 09/14/16: Low nl LVEF. RV not well seen. 1+ MR. Echo 03/2015: TDS, normal LV/RVF, no sig valv abn Dobut stress echo 10/2015: 7.34 min. 83% MPHR. HTN response. No EKG changes. TDS apex, portions of AW and basal PW not well seen. No ischemia, appropriate EF augmentation. (post PCI) CXR: clear lungs/pleura ECG x2 here (06/13 and 06/14): NSR, normal axis; LVH with repol; no path q's; no isch ST-Ts Assessment/Plan 61 year old f with known CAD--h/o NSTEMI '13 s/p LAD KAREN PCI 09/2013, and prox LCx KAREN PCI 2014, HTN, lone afib/PSVT, MR, pHTN, KATINA, NAFLD, HPL, CKD, anemia, IDDM who presents to the ED with shortness of breath. chronic diastolic CHF (acute on chronic HFPEF) - hx of "flash" pulmonary edema in the past--felt to be a combo of diast dysf and ischemic heart disease. Dry weight 247-250 lbs. - home dry wt running 241-244 for a while now, wt 238 here on admit - bnp ranges 1600 - 3000s (i.e. the latter when decompensated). 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 exacerbating bronchospasm -tx per pmd/pulm CAD: -s/p prox LCx KAREN PCI 2014 for crescendo angina, prior mLAD stent patent, prior PTCA'ed D2 [place], residual 70-80% distal RCA disease unchanged from prior cath 2012 --left for medical rx -trop 0.3 x4 here--no c/w ACS, due to hi LV filling pressures -ecg non-ischemic -sx's not consistent with ACS--no further w/u indicated - Continue home DAPT with ASA and Effient. cont crestor, coreg, NTG patch. - No ACEI given fluctuating renal function. HTN: - intolerant of multiple BP meds before--diovan, micardis, verap, norvasc, nifedipine, nisoldipine, catapres path - home regimen coreg CR 20, hydral 25 TID, nitro patch 0.2mg (BUCKNER with higher doses) - decr coreg dose, as above - will incr hydral to 37.5mg TID while here (note bp's to 180s b/c she has not been given coreg) - bp's tend to run higher in hosp--will likely need lower hydral dose at home ( takes it prn at home based on bp's b/c often too low and drops with sx's if takes hydral dose) HPL: - tolerating crestor 10 mg, zetia Myalgias w Atorva/Simva and high dose crestor - LDL >200 at baseline--130s here; same meds - declined PCSK-9 inhibitor trial KATINA / Mod PHTN - compliant with CPAP at home. - diastolic dysfunction likely also contributing to pHTN. ARF / CKD: - baseline creat runs 2.5-2.6 - higher here, suspect intravasc vol depletion (? insensible losses, decr po intake due to malaise/cough) Remote PAF and PSVT - lone AF episode in setting of dobutamine, no recurrence. No AC thought to be indicated - same plan
--- NOTE | 2017-06-15 11:35 | PN ---
Progress Note, Physician History of Present Illness: pulmonary alert,feeling better less dyspneic,less cough - Current Medication List Current Medications: Active Medications Acetaminophen (Tylenol -) 650 mg PO Q4H PRN PRN Reason: FEVER OR PAIN Albuterol Sulfate (Ventolin 0.083% Nebulizer Soln -) 1 amp NEB Q4H PRN PRN Reason: SHORT OF BREATH/WHEEZING Last Admin: 06/15/17 09:50 Dose: 1 amp Amlodipine Besylate (Norvasc -) 2.5 mg PO DAILY [facility] Last Admin: 06/15/17 09:33 Dose: 2.5 mg Aspirin (Asa -) 81 mg PO DAILY [facility] Last Admin: 06/15/17 09:33 Dose: 81 mg Budesonide/Formoterol Fumarate (Symbicort 160/4.5mcg -) 2 puff IH BID [facility] Last Admin: 06/15/17 09:32 Dose: 2 puff Carvedilol (Coreg Cr -) 10 mg PO DAILY [facility] Last Admin: 06/15/17 09:33 Dose: 10 mg Clonazepam (Klonopin -) 0.5 mg PO QID PRN PRN Reason: ANXIETY Last Admin: 06/14/17 21:38 Dose: 0.5 mg Ferrous Sulfate (Feosol -) 325 mg PO BID [facility] Last Admin: 06/15/17 09:33 Dose: 325 mg Heparin Sodium (Porcine) (Heparin -) 5,000 unit SQ TID [facility] Last Admin: 06/15/17 06:00 Dose: 5,000 unit Hydralazine HCl (Apresoline -) 50 mg PO TID [facility] Last Admin: 06/15/17 06:00 Dose: 50 mg Insulin Aspart (Novolog Vial Sliding Scale -) 1 vial SQ ACHS [facility] PRN Reason: Protocol Last Admin: 06/15/17 06:00 Dose: 8 units Insulin Detemir (Levemir Vial) 30 units SQ HS [facility] Last Admin: 06/14/17 21:37 Dose: 30 units Methylprednisolone Sodium Succinate (Solu-Medrol -) 40 mg IVPB Q8H-IV [facility] Last Admin: 06/15/17 09:32 Dose: 40 mg Nitroglycerin (Nitro-Dur Patch -) 0.2 mg TD DAILY [facility] Last Admin: 06/15/17 10:29 Dose: 0.2 mg Pantoprazole Sodium (Protonix -) 40 mg PO DAILY [facility] Last Admin: 06/15/17 10:30 Dose: 40 mg Prasugrel (Effient -) 10 mg PO DAILY [facility] Last Admin: 06/15/17 09:33 Dose: 10 mg Rosuvastatin Calcium (Crestor -) 10 mg PO HS [facility] Last Admin: 06/14/17 21:38 Dose: 10 mg Torsemide (Demadex -) 20 mg PO DAILY [facility] Last Admin: 06/15/17 09:33 Dose: 20 mg - Objective Vital Signs: Vital Signs Temperature 98.5 F 06/15/17 09:00 Pulse Rate 87 06/15/17 09:50 Respiratory Rate 16 06/15/17 09:00 Blood Pressure 178/81 06/15/17 09:00 O2 Sat by Pulse Oximetry (%) 97 06/15/17 09:50 Constitutional: Yes: Well Nourished, Calm Eyes: Yes: WNL HENT: Yes: WNL Neck: Yes: WNL Cardiovascular: Yes: Regular Rate and Rhythm, S1, S2 Respiratory: Yes: Wheezes (less wheezes jag) Gastrointestinal: Yes: Normal Bowel Sounds, Soft Extremities: Yes: WNL Edema: Yes Labs: CBC, BMP 06/15/17 05:35 06/15/17 05:35 INR, PTT INR 1.00 (0.82-1.09) 06/14/17 06:00 Problem List - Problems (1) Asthma exacerbation Code(s): J45.901 - UNSPECIFIED ASTHMA WITH (ACUTE) EXACERBATION (2) HTN (hypertension) Code(s): I10 - ESSENTIAL (PRIMARY) HYPERTENSION Qualifiers: Hypertension type: unspecified secondary hypertension Qualified Code(s) : I15.9 - Secondary hypertension, unspecified; I15 - Secondary hypertension (3) Anemia Code(s): D64.9 - ANEMIA, UNSPECIFIED (4) IDDM (insulin dependent diabetes mellitus) Code(s): E11.9 - TYPE 2 DIABETES MELLITUS WITHOUT COMPLICATIONS Z79.4 - ASSISTED (CURRENT) USE OF INSULIN (5) ASHD (arteriosclerotic heart disease) Code(s): I25.10 - ATHSCL HEART DISEASE OF [place] CORONARY ARTERY W/O ANG PCTRS (6) Sleep apnea, obstructive Code(s): G47.33 - OBSTRUCTIVE SLEEP APNEA (ADULT) (PEDIATRIC) Assessment/Plan IMP CHRONIC PERSISTENT ASTHMA WITH ACUTE EXACERBATION CLINICALLY IMPROVING ASHD S/P STENT ELEVATED TROPONIN S/P TN IDDM KATINA ON CPAP 11cm/h20 HTN ACUTE ON CHRONIC RENAL FAILURE PLAN IV STEROIDS SAME DOSE INHALED BRONCHODILATTORS NASAL O2 MONITOR PEAK FLOW ROBITUSSIN MONITOR LYTE,RENAL FUNCTION DR 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10 - ATHSCL HEART DISEASE OF [place] CORONARY ARTERY W/O ANG PCTRS (6) Sleep apnea, obstructive Code(s): G47.33 - OBSTRUCTIVE SLEEP APNEA (ADULT) (PEDIATRIC)
--- NOTE | 2017-06-15 12:43 | PN ---
Progress Note (short form) - Note Progress Note: Renal Follow up for CKD Stage 4 Pt seen and examined at the bedside awake and alert no acute complaints SOB is improving no chest pain, abd pain, N/V/D good urine output Vital Signs Temperature 98.5 F 06/15/17 09:00 Pulse Rate 87 06/15/17 09:50 Respiratory Rate 16 06/15/17 09:00 Blood Pressure 178/81 06/15/17 09:00 O2 Sat by Pulse Oximetry (%) 97 06/15/17 09:50 Intake & Output 06/12/17 06/13/17 06/14/17 06/15/17 23:59 23:59 23:59 23:59 Intake Total 200 650 240 Balance 200 650 240 Weight 238 lb 9.6 oz 238 lb 2 oz 241 lb Gen: NAD CVS: RRR Lungs: + exp wheeze Abd: soft NT/ND, Obese Ext: No edema CBC, BMP 06/15/17 05:35 06/15/17 05:35 Current Medications Acetaminophen (Tylenol -) 650 mg PO Q4H PRN PRN Reason: FEVER OR PAIN Albuterol Sulfate (Ventolin 0.083% Nebulizer Soln -) 1 amp NEB Q4H PRN PRN Reason: SHORT OF BREATH/WHEEZING Last Admin: 06/15/17 09:50 Dose: 1 amp Amlodipine Besylate (Norvasc -) 2.5 mg PO DAILY [facility] Last Admin: 06/15/17 09:33 Dose: 2.5 mg Aspirin (Asa -) 81 mg PO DAILY [facility] Last Admin: 06/15/17 09:33 Dose: 81 mg Budesonide/Formoterol Fumarate (Symbicort 160/4.5mcg -) 2 puff IH BID [facility] Last Admin: 06/15/17 09:32 Dose: 2 puff Carvedilol (Coreg Cr -) 10 mg PO DAILY [facility] Last Admin: 06/15/17 09:33 Dose: 10 mg Clonazepam (Klonopin -) 0.5 mg PO QID PRN PRN Reason: ANXIETY Last Admin: 06/14/17 21:38 Dose: 0.5 mg Ferrous Sulfate (Feosol -) 325 mg PO BID [facility] Last Admin: 06/15/17 09:33 Dose: 325 mg Heparin Sodium (Porcine) (Heparin -) 5,000 unit SQ TID [facility] Last Admin: 06/15/17 06:00 Dose: 5,000 unit Hydralazine HCl (Apresoline -) 50 mg PO TID [facility] Last Admin: 06/15/17 06:00 Dose: 50 mg Insulin Aspart (Novolog Vial Sliding Scale -) 1 vial SQ ACHS [facility] PRN Reason: Protocol Last Admin: 06/15/17 12:29 Dose: 8 units Insulin Detemir (Levemir Vial) 30 units SQ HS [facility] Last Admin: 06/14/17 21:37 Dose: 30 units Methylprednisolone Sodium Succinate (Solu-Medrol -) 40 mg IVPB Q8H-IV [facility] Last Admin: 06/15/17 09:32 Dose: 40 mg Nitroglycerin (Nitro-Dur Patch -) 0.2 mg TD DAILY [facility] Last Admin: 06/15/17 10:29 Dose: 0.2 mg Pantoprazole Sodium (Protonix -) 40 mg PO DAILY [facility] Last Admin: 06/15/17 10:30 Dose: 40 mg Prasugrel (Effient -) 10 mg PO DAILY [facility] Last Admin: 06/15/17 09:33 Dose: 10 mg Rosuvastatin Calcium (Crestor -) 10 mg PO HS [facility] Last Admin: 06/14/17 21:38 Dose: 10 mg Torsemide (Demadex -) 20 mg PO DAILY [facility] Last Admin: 06/15/17 09:33 Dose: 20 mg A/p 62 year old woman with PMhx of COPD, Bronchial asthma, Insulin Dependent Diabetes mellitus, Hypertension, Myocardial Indaction, S/p PTIC, Chronic kidney Disease Stage 4, with a eGFR of 23 ml/min/1.73m2 presented with SOB and admitted for COPD exacerbation. 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
--- NOTE | 2017-06-15 13:14 | CONS ---
PULMONARY CONSULTATION DATE OF CONSULTATION: 06/14/2017 REFERRING PHYSICIAN: Madhu Daniel MD HISTORY OF PRESENT ILLNESS: The patient is a 62-year-old black female with a past medical history of CHF, insulin-dependent diabetes mellitus, hypertension, ASHD status post stent, hyperlipidemia, chronic asthma maintained on inhaled bronchodilators, also obstructive sleep apnea, and anxiety, admitted to [facility] on June 13, with complaint of 1-week history of increasing shortness of breath, cough productive of white sputum, and wheezing. Patient denied any complaints of chest pain, nausea, vomiting, and diaphoresis. She states that she has been coughing up approximately 1 teaspoon of phlegm. Coughing is increased . Coughing is exacerbated when lying flat. She denies any fevers or chills. She states that her symptoms are improved after using inhaled nebulizer and Symbicort. She feels that her coughing was exacerbated by neighbor's cutting of lawn and dusting in the house. As stated before, she has a history of sleep apnea, maintained on CPAP at 11 cm of pressure. She states that she sleeps on 3 pillows at night and has occasional lower extremity edema. Denies any history of occupational exposure to chemicals or fumes. There is no history of recent travel. She was most recently hospitalized in November 2016. PAST MEDICAL HISTORY: Again includes ASHD, status post stent; hyperlipidemia; atrial fibrillation; hypertension; obstructive sleep apnea; status post [place]; pulmonary hypertension; kidney disease; diabetes. CURRENT MEDICATIONS: Include Symbicort 160/4.5, Tylenol, heparin, Klonopin, Coreg, Apresoline, Crestor, NovoLog, aspirin, Protonix, Effient, and Nitro-Dur. PHYSICAL EXAMINATION: General: The patient is an obese female, wide awake, alert, in no acute distress. Vital Signs: She is currently afebrile. Blood pressure is 170/70, respiratory rate is 18, O2 saturation is 96% on room air. HEENT: Normocephalic, atraumatic. Neck: Supple. Heart: Regular, with normal S1, S2. Chest: Scattered bilateral wheezes. Abdomen: Soft. Bowel sounds are positive. Extremities: Bilateral lower extremity edema. LABORATORY DATA: WBC is 7.3, hemoglobin 10, hematocrit 30, platelet count of 260,000. INR is 1. BUN is 58, creatinine 2.8. Hemoglobin A1c is 9.8. Chest x-ray: Cardiomegaly but no acute infiltrates, , or effusions. IMPRESSION: 1. Acute asthma exacerbation. 2. Atherosclerotic heart disease status post stent. 3. Congestive heart failure. 4. Obstructive sleep apnea on continuous positive airway pressure of 11 cm. 5. Bcmwf-qz-biysleh kidney disease. PLAN: Continue inhaled bronchodilators, supplemental O2, monitor peak flow, antitussives. Will consider a short course of IV steroids if the patient is not improved on the above measures. SHIVA BENDER M.D. [id number]
--- NOTE | 2017-06-15 14:26 | PN ---
Physical Exam: SUBJECTIVE: Patient seen and examined No acute events overnight. Patient feels like she is retaining fluid as she has gained 3 lbs. CXR shows no fluid in the lungs. Patient's SOB and cough has improved. OBJECTIVE: GENERAL: The patient is awake, alert, and fully oriented, in no acute distress. HEAD: Normal with no signs of trauma. EYES: Extraocular movements intact, sclera anicteric, conjunctiva clear. No ptosis. ENT: Oropharynx clear without exudates, moist mucous membranes. NECK: Trachea midline, full range of motion, supple. LUNGS: Breath sounds equal, clear to auscultation bilaterally, no wheezes, no crackles, no accessory muscle use. HEART: Regular rate and rhythm, S1, S2 without murmur, rub or gallop. ABDOMEN: Soft, nontender, nondistended, normoactive bowel sounds, no guarding, no rebound, no hepatosplenomegaly, no masses. EXTREMITIES: 2+ radial/dp pulses, warm, well-perfused, no LE edema. NEUROLOGICAL: Cranial nerves II through XII grossly intact. Normal speech, gait appropriate PSYCH: Normal mood, normal affect. SKIN: Warm, dry, normal turgor, no rashes or lesions noted Laboratory Results - last 24 hr 06/15/17 11:45 POC Glucometer 348 Active Medications Generic Name Dose Route Start Last Admin Trade Name Freq PRN Reason Stop Dose Admin Acetaminophen 650 mg 06/13/17 21:29 Tylenol - PO Q4H PRN FEVER OR PAIN Albuterol Sulfate 1 amp 06/14/17 13:02 06/15/17 09:50 Ventolin 0.083% Nebulizer Soln - NEB 1 amp Q4H PRN Administration SHORT OF BREATH/WHEEZING Amlodipine Besylate 2.5 mg 06/15/17 10:00 06/15/17 09:33 Norvasc - PO 2.5 mg DAILY [facility] Administration Aspirin 81 mg 06/14/17 10:00 06/15/17 09:33 Asa - PO 81 mg DAILY [facility] Administration Budesonide/Formoterol Fumarate 2 puff 06/14/17 08:00 06/15/17 09:32 Symbicort 160/4.5mcg - IH 2 puff BID [facility] Administration Carvedilol 10 mg 06/14/17 11:30 06/15/17 09:33 Coreg Cr - PO 10 mg DAILY [facility] Administration Clonazepam 0.5 mg 06/13/17 21:42 06/14/17 21:38 Klonopin - PO 0.5 mg QID PRN Administration ANXIETY Ferrous Sulfate 325 mg 06/14/17 10:00 06/15/17 09:33 Feosol - PO 325 mg BID [facility] Administration Heparin Sodium (Porcine) 5,000 unit 06/13/17 22:00 06/15/17 06:00 Heparin - SQ 5,000 unit TID [facility] Administration Hydralazine HCl 50 mg 06/14/17 14:00 06/15/17 06:00 Apresoline - PO 50 mg TID [facility] Administration Insulin Aspart 1 vial 06/13/17 22:13 06/15/17 12:29 Novolog Vial Sliding Scale - SQ 8 units ACHS [facility] Administration Protocol Insulin Detemir 30 units 06/13/17 22:00 06/14/17 21:37 Levemir Vial SQ 30 units HS [facility] Administration Methylprednisolone Sodium Succinate 40 mg 06/14/17 13:00 06/15/17 09:32 Solu-Medrol - IVPB 40 mg Q8H-IV [facility] Administration Nitroglycerin 0.2 mg 06/14/17 10:00 06/15/17 10:29 Nitro-Dur Patch - TD 0.2 mg DAILY [facility] Administration Pantoprazole Sodium 40 mg 06/14/17 11:45 06/15/17 10:30 Protonix - PO 40 mg DAILY [facility] Administration Prasugrel 10 mg 06/14/17 10:00 06/15/17 09:33 Effient - PO 10 mg DAILY [facility] Administration Rosuvastatin Calcium 10 mg 06/13/17 22:00 06/14/17 21:38 Crestor - PO 10 mg HS [facility] Administration Torsemide 20 mg 06/14/17 10:00 06/15/17 09:33 Demadex - PO 20 mg DAILY [facility] Administration ASSESSMENT/PLAN: 62 yo F with PMH of CHF, IDDM, HTN, CAD(S/p CABG x 2 stents), asthma, and anxiety presented to the ED with 1 week history of cough found to have elevated trop of 0.32 and was admitted for observation to R/o ACS #- Troponin elevation : possibley demand vs renal failure vs ACS * Heart score of 5 * Pt has Hx of HTN , CAD S/P CABG x 2 stents , and IDDM * First Trop 0.32, second 0.31 continue, third trop is 0.30 * Aspirin 162 mg was given in ED. 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 Chen * Continue Effient 10 mg PO daily #- Cough - Asthma * In no acute asthma exacerbation * Likely viral vs allergies * Continue Home meds Albuterol Neb Q 4H , and symbicort 2 inh PO BID * IV 40 mg IVPB salumedorol started * Pulmonary following, Dr. Huang # HTN * 148/98 * monitor BP * Continue Coreg CR 10 mg PO daily * Continue Hydralazine 50 mg PO TID * Continue Amlodipine 2.5 mg PO daily #- Diastolic CHF , Chronic * stable , in no acute exacerbation, * last Echo in August 2016 shows EF- 51 % * continue home meds Torsemide [Demadex -] 20 mg PO DAILY & Hydralazine HCl [ Apresoline -] 50 mg PO TID, #- IDDM, chronic * FS * RAISS * C/W Levemir 30 units HS * Diabetic Diet #- Chronic kidney disease, stage 4 * Cr base line around 3 * today Cr 2.9 * continue to monitor * avoid nephrotoxins * Nephrology following, Dr. Garcia # Anxiety , chronic * Continue home meds Clonazepam [KlonoPIN] 0.5 mg PO QID PRN # HLD * Continue crestor 10 mg PO hs #- DVT Proph, medium * SCDs * Heparin 5000 unit SQ TID #- F/E/N * F: On NO fluid * Electrolytes WNL * Diabetic/low sodium diet Visit type - Emergency Visit Emergency Visit: No - New Patient This patient is new to me today: No - Critical Care Critical Care patient: No
--- NOTE | 2017-06-15 18:09 | PN ---
Teaching Attending Note Name of Resident: Keyur Jimenez ATTENDING PHYSICIAN STATEMENT I saw and evaluated the patient. I reviewed the resident's note and discussed the case with the resident. I agree with the resident's findings and plan as documented. SUBJECTIVE: Cough and shortness of breath are better. OBJECTIVE: Vital Signs Period Temp Pulse Resp BP Sys/Shankar Pulse Ox Last 24 Hr 98 F-98.5 F 55-87 16-18 148-178/57-98 96-98 HEART: S1S2, RRR LUNGS: Scattered wheezes bilaterally ABDOMEN: Obese, soft, non-tender, non-distended, normal BS EXTREMITIES: No edema ASSESSMENT AND PLAN: This is a 62-year-old woman with a history of chronic diastolic heart failure, type 2 DM, HTN, hyperlipidemia, CAD, CABG, asthma, KATINA, anxiety, pulm HTN, PAF who presented to the ER with a worsening cough. 1. Elevated troponin in a patient with SOB and history of CAD - Troponin 0.32 -> 0.31 -> 0.31 -> 0.30 - No evidence of acute coronary syndrome 2. Cough - Improving - Continue to treat asthma exacerbation - Protonix started for possible GERD - No evidence of dysphagia 3. Acute exacerbation of chronic persistent asthma - Continue SoluMedrol, Symbicort, albuterol as needed 4. CAD, history of stents - Continue aspirin, Coreg, Nitropatch, Crestor, Effient 5. Hypertensive urgency - Improved with Hydralazine IV 6. Hypertension, uncontrolled - Continue Coreg, Hydralazine, Demadex - doses being adjusted - Norvasc added 7. Hyperlipidemia - Continue Crestor 8. Chronic diastolic heart failure - Stable - Continue Demadex 9. Stage 4 CKD - Stable 10. Type 2 DM - Continue Levemir, Novolog sliding scale 11. Anxiety - Continue Klonopin as needed 12. KATINA - Continue CPAP at night 13. Paroxysmal atrial fibrillation - Remains in SR 14. Pulmonary HTN
[2017-06-15] MEDS: ROSUVASTATIN CA 10 MG TABLET (FP) PO SCH (22:18)
[2017-06-15] MEDS: INSULIN DETEMIR 100 UNITS/ML MDV SQ SCH (22:19)
[2017-06-15] MEDS: clonazePAM 0.5 MG TABLET PO PRN (22:37)
[2017-06-16] MEDS: methylPREDNISolone NA SUCC 40 MG/1 ML VIAL IVPB SCH ×3 (01:09→17:24)
[2017-06-16] MEDS ORDERED: INSULIN (NOVOLOG) ASPART 100 UNITS/ML 10ML VIAL ONE ×2 (06:19→22:24)
[2017-06-16 06:20] LABS: BASOPHIL 0.1 % (0-2.0); MCH 25.3 pg (25.7-33.7); MCHC 32.3 g/dl (32.0-36.0); MEAN CELL VOLUME 78.3 fl (80-96); MEAN PLT VOLUME 8.3 fl (7.5-11.1); NEUTROPHILS 90.4 % (42.8-82.8); PLATELET COUNT 321 K/MM3 (134-434); RDW 12.8 % (11.6-15.6); WHITE BLOOD COUNT 16.1 K/mm3 (4.0-10.0)
[2017-06-16] MEDS: hydrALAZINE HCL 50 MG TABLET (FP) PO SCH (06:25)
[2017-06-16] MEDS: HEPARIN NA (PORCINE) 5,000 UNITS/ML 1ML VIAL SQ SCH ×3 (06:26→22:30)
[2017-06-16] MEDS: INSULIN SLIDING SCALE (NOVOLOG) 1 VIAL SQ SCH ×4 (06:26→22:31)
[2017-06-16 06:45] LABS: ALBUMIN 3.3 g/dl (3.4-5.0); ANION GAP 13 (8-16); BILIRUBIN,TOTAL 0.1 mg/dL (0.2-1.0); CALCIUM 8.6 mg/dL (8.5-10.1); CO2 23 mmol/L (21-32); CREATININE 3.4 mg/dL (0.55-1.02); MAGNESIUM 2.2 mg/dL (1.8-2.4); PHOSPHOROUS 4.3 mg/dL (2.5-4.9); SGOT/AST 17 U/L (15-37); SGPT/ALT 17 U/L (12-78); TOT PROT 7.6 g/dl (6.4-8.2)
[2017-06-16 06:46] LABS: ALK PHOS 118 U/L (45-117)
[2017-06-16 06:53] LABS: GLUCOSE,RANDOM 304 mg/dL (74-106)
[2017-06-16] MEDS ORDERED: PT OWN MED DRAWER 7, Y5N ONE ×2 (09:13→22:24)
[2017-06-16] MEDS: ASPIRIN 81 MG CHEWABLE TABLETS PO SCH (09:38)
[2017-06-16] MEDS: TORSEMIDE 20 MG TABLET (FP) PO SCH (09:40)
[2017-06-16] MEDS: PANTOPRAZOLE 40 MG TABLET (FP) PO SCH (09:40)
[2017-06-16] MEDS: FERROUS SO4 325 MG TABLET (FP) PO SCH ×2 (09:41→22:29)
[2017-06-16] MEDS: CARVEDILOL PHOSPHATE CR 10 MG CAPSULE PO SCH (09:41)
[2017-06-16] MEDS: BUDESONIDE/FORMETEROL FUMARATE 160/4.5 mcg INHALER IH SCH ×2 (09:42→22:29)
[2017-06-16] MEDS: PRASUGREL HCL 10 MG TAB PO SCH (09:42)
[2017-06-16] MEDS ORDERED: amLODIPine BESYLATE 5 MG TABLET (FP) PO SCH (10:00)
--- NOTE | 2017-06-16 10:44 | PN ---
Progress Note (short form) - Note Progress Note: s: no cp palps dizzy; still sob o: Vital Signs Period Temp Pulse Resp BP Sys/Shankar Pulse Ox Last 24 Hr 97.9 F-98.6 F 70-90 16-20 154-192/72-96 94-94 Constitutional: Yes: No Distress, Calm, Obese Eyes: No: Sclera Icterus Respiratory: Yes: CTA Bilaterally, Wheezes. No: Accessory Muscle Use, Rales Gastrointestinal: Yes: Normal Bowel Sounds. No: Distention, Hepatomegaly, Palpable Mass, Tenderness Cardiovascular: Yes: Regular Rate and Rhythm JVD: No Heart Sounds: Yes: S1, S2. No: Gallop Murmur: No: Systolic Murmur, Diastolic Murmur Extremities: No: Cold, Cyanosis Edema: No Integumentary: No: Jaundice diaphoresis Neurological: Yes: Alert, Oriented (x3) Psychiatric: No: Agitated - Other Data Labs, Other Data: Current Medications Generic Name Dose Route Start Last Admin Trade Name Freq PRN Reason Stop Dose Admin Acetaminophen 650 mg 06/13/17 21:29 Tylenol - PO Q4H PRN FEVER OR PAIN Albuterol Sulfate 1 amp 06/14/17 13:02 06/15/17 21:50 Ventolin 0.083% Nebulizer Soln - NEB 1 amp Q4H PRN Administration SHORT OF BREATH/WHEEZING Amlodipine Besylate 5 mg 06/16/17 10:00 06/16/17 09:39 Norvasc - PO 5 mg DAILY [facility] Administration Aspirin 81 mg 06/14/17 10:00 06/16/17 09:38 Asa - PO 81 mg DAILY [facility] Administration Budesonide/Formoterol Fumarate 2 puff 06/14/17 08:00 06/16/17 09:42 Symbicort 160/4.5mcg - IH 2 puff BID [facility] Administration Carvedilol 10 mg 06/14/17 11:30 06/16/17 09:41 Coreg Cr - PO 10 mg DAILY [facility] Administration Clonazepam 0.5 mg 06/13/17 21:42 06/15/17 22:37 Klonopin - PO 0.5 mg QID PRN Administration ANXIETY Ferrous Sulfate 325 mg 06/14/17 10:00 06/16/17 09:41 Feosol - PO 325 mg BID [facility] Administration Heparin Sodium (Porcine) 5,000 unit 06/13/17 22:00 06/16/17 06:26 Heparin - SQ 5,000 unit TID [facility] Administration Hydralazine HCl 50 mg 06/14/17 14:00 06/16/17 06:25 Apresoline - PO 50 mg TID [facility] Administration Insulin Aspart 1 vial 06/13/17 22:13 06/16/17 06:26 Novolog Vial Sliding Scale - SQ 8 units ACHS [facility] Administration Protocol Insulin Detemir 40 units 06/16/17 22:00 Levemir Vial SQ HS [facility] Methylprednisolone Sodium Succinate 40 mg 06/14/17 13:00 06/16/17 01:09 Solu-Medrol - IVPB 40 mg Q8H-IV [facility] Administration Nitroglycerin 0.2 mg 06/14/17 10:00 06/15/17 10:29 Nitro-Dur Patch - TD 0.2 mg DAILY [facility] Administration Pantoprazole Sodium 40 mg 06/14/17 11:45 06/16/17 09:40 Protonix - PO 40 mg DAILY [facility] Administration Prasugrel 10 mg 06/14/17 10:00 06/16/17 09:42 Effient - PO 10 mg DAILY [facility] Administration Rosuvastatin Calcium 10 mg 06/13/17 22:00 06/15/17 22:18 Crestor - PO 10 mg HS [facility] Administration Torsemide 20 mg 06/14/17 10:00 06/16/17 09:40 Demadex - PO 20 mg DAILY [facility] Administration CBC, BMP 06/16/17 05:48 06/16/17 05:48 Echo 01/15: nl LV/EF; dd2, hi E/e' = hi LAP. nl RV. mild LAE. mild-mod MR, mod TR. mild pHTN (46 mmHg). Echo 09/14/16: Low nl LVEF. RV not well seen. 1+ MR. Echo 03/2015: TDS, normal LV/RVF, no sig valv abn Dobut stress echo 10/2015: 7.34 min. 83% MPHR. HTN response. No EKG changes. TDS apex, portions of AW and basal PW not well seen. No ischemia, appropriate EF augmentation. (post PCI) CXR: clear lungs/pleura ECG x2 here (06/13 and 06/14): NSR, normal axis; LVH with repol; no path q's; no isch ST-Ts Assessment/Plan 61 year old f with known CAD--h/o NSTEMI '13 s/p LAD KAREN PCI 09/2013, and prox LCx KAREN PCI 2014, HTN, lone afib/PSVT, MR, pHTN, KATINA, NAFLD, HPL, CKD, anemia, IDDM who presents to the ED with shortness of breath. chronic diastolic CHF (acute on chronic HFPEF) - hx of "flash" pulmonary edema in the past--felt to be a combo of diast dysf and ischemic heart disease. Dry weight 247-250 lbs. - home dry wt running 241-244 for a while now, wt 238 here on admit - bnp ranges 1600 - 3000s (i.e. the latter when decompensated). currently 1700 - Pulm pressure and wedge nitro-sensitive in analytical lab analyst so cont nitro as well ( can only tolerate low dose patch due to HAs) - cont home po torsemide, monitor for increasing vol with iv steroids bronchospasm/asthma, acute exacerbation: -has had increase severity of sx's over past few months, now admitted for same -will try to decr coreg CR dose to 10mg, ? exacerbating bronchospasm -tx per pmd/pulm CAD: -s/p prox LCx KAREN PCI 2014 for crescendo angina, prior mLAD stent patent, prior PTCA'ed D2 [place], residual 70-80% distal RCA disease unchanged from prior cath 2012 --left for medical rx -trop 0.3 x4 here--no c/w ACS, due to hi LV filling pressures -ecg non-ischemic -sx's not consistent with ACS--no further w/u indicated - Continue home DAPT with ASA and Effient. cont crestor, coreg, NTG patch. - No ACEI given fluctuating renal function. HTN: - intolerant of multiple BP meds before--diovan, micardis, verap, norvasc, nifedipine, nisoldipine, catapres patch - home regimen is coreg CR 20, hydral 25 TID, nitro patch 0.2mg (BUCKNER with higher doses) -here have decreased coreg to 10 in case was worsening asthma but bp remains elevated. She has intolerance to norvasc in past so will stop now and instead further increase hydralazine to 75 tid (was getting 50 tid here) - bp's tend to run higher in hosp--will likely need lower hydral dose at home ( takes it prn at home based on bp's b/c often too low and drops with sx's if takes hydral dose) HPL: - tolerating crestor 10 mg, zetia Myalgias w Atorva/Simva and high dose crestor - LDL >200 at baseline--130s here; same meds - declined PCSK-9 inhibitor trial KATINA / Mod PHTN - compliant with CPAP at home. - diastolic dysfunction likely also contributing to pHTN. ARF / CKD: - baseline creat runs 2.5-2.6 - higher here, suspect intravasc vol depletion (? insensible losses, decr po intake due to malaise/cough) Remote PAF and PSVT - lone AF episode in setting of dobutamine, no recurrence. No AC thought to be indicated - same plan
[2017-06-16] MEDS: ALBUTEROL SO4 0.083% IH SOL 2.5 MG/3 ML VIAL.NEB. NEB PRN ×2 (11:10→17:20)
[2017-06-16] MEDS: NITROGLYCERIN 0.2 MG/HOUR TD PATCH TD SCH (11:30)
--- NOTE | 2017-06-16 12:27 | PN ---
Progress Note (short form) - Note Progress Note: Renal Follow up for CKD Stage 4 Pt seen and examined at the bedside continues to have dyspnea, cough with sputum production making a good amount of urine no fever, chills, N/V/D Vital Signs Temperature 98.6 F 06/16/17 10:00 Pulse Rate 88 06/16/17 11:00 Respiratory Rate 20 06/16/17 10:00 Blood Pressure 192/96 06/16/17 10:00 O2 Sat by Pulse Oximetry (%) 97 06/16/17 11:00 Intake & Output 06/13/17 06/14/17 06/15/17 06/16/17 23:59 23:59 23:59 23:59 Intake Total 200 650 520 170 Balance 200 650 520 170 Weight 238 lb 9.6 oz 238 lb 2 oz 241 lb 241 lb 6 oz Gen: NAD CVS: RRR Lungs: + exp wheeze Abd: soft NT/ND, Obese Ext: No edema CBC, BMP 06/16/17 05:48 06/16/17 05:48 Laboratory Tests 06/16/17 05:48 Calcium 8.6 Phosphorus 4.3 Magnesium 2.2 Albumin 3.3 L Current Medications Acetaminophen (Tylenol -) 650 mg PO Q4H PRN PRN Reason: FEVER OR PAIN Albuterol Sulfate (Ventolin 0.083% Nebulizer Soln -) 1 amp NEB Q4H PRN PRN Reason: SHORT OF BREATH/WHEEZING Last Admin: 06/16/17 11:10 Dose: 1 amp Aspirin (Asa -) 81 mg PO DAILY [facility] Last Admin: 06/16/17 09:38 Dose: 81 mg Budesonide/Formoterol Fumarate (Symbicort 160/4.5mcg -) 2 puff IH BID [facility] Last Admin: 06/16/17 09:42 Dose: 2 puff Carvedilol (Coreg Cr -) 10 mg PO DAILY [facility] Last Admin: 06/16/17 09:41 Dose: 10 mg Clonazepam (Klonopin -) 0.5 mg PO QID PRN PRN Reason: ANXIETY Last Admin: 06/15/17 22:37 Dose: 0.5 mg Ferrous Sulfate (Feosol -) 325 mg PO BID [facility] Last Admin: 06/16/17 09:41 Dose: 325 mg Heparin Sodium (Porcine) (Heparin -) 5,000 unit SQ TID [facility] Last Admin: 06/16/17 06:26 Dose: 5,000 unit Hydralazine HCl (Apresoline -) 75 mg PO TID [facility] Insulin Aspart (Novolog Vial Sliding Scale -) 1 vial SQ ACHS [facility] PRN Reason: Protocol Last Admin: 06/16/17 11:36 Dose: 6 units Insulin Detemir (Levemir Vial) 40 units SQ HS [facility] Methylprednisolone Sodium Succinate (Solu-Medrol -) 40 mg IVPB Q8H-IV [facility] Last Admin: 06/16/17 09:30 Dose: 40 mg Nitroglycerin (Nitro-Dur Patch -) 0.2 mg TD DAILY [facility] Last Admin: 06/16/17 11:30 Dose: 0.2 mg Pantoprazole Sodium (Protonix -) 40 mg PO DAILY [facility] Last Admin: 06/16/17 09:40 Dose: 40 mg Prasugrel (Effient -) 10 mg PO DAILY [facility] Last Admin: 06/16/17 09:42 Dose: 10 mg Rosuvastatin Calcium (Crestor -) 10 mg PO HS [facility] Last Admin: 06/15/17 22:18 Dose: 10 mg Torsemide (Demadex -) 20 mg PO DAILY [facility] Last Admin: 06/16/17 09:40 Dose: 20 mg A/p 62 year old woman with PMhx of COPD, Bronchial asthma, Insulin Dependent Diabetes mellitus, Hypertension, Myocardial Indaction, S/p PTIC, Chronic kidney Disease Stage 4, with a eGFR of 23 ml/min/1.73m2 presented with SOB and admitted for COPD exacerbation. #CKD Stage 4 with subnephrotoic proteinuria Cr slightly worse today but not a dramatic change from her baseline would continue current management including diuretics Trend BUN/Cr avoid nephrotoxins (NSAIDs, IV contrast) Dose all meds for Cr Cl less then 20 #COPD exacerbation continue IV steroids/Nebs #Hypertension Goal BP < 140/90 pt intolerant to norvasc hydralazine increased as per cardiology trend BP, further titration as needed Thank you Goyo Smith DO
--- NOTE | 2017-06-16 13:22 | EKG ---
Test Reason : Blood Pressure : / mmHG Vent. Rate : 077 BPM Atrial Rate : 077 BPM P-R Int : 202 ms QRS Dur : 088 ms QT Int : 386 ms P-R-T Axes : 063 002 062 degrees QTc Int : 436 ms SINUS RHYTHM WITH PREMATURE SUPRAVENTRICULAR COMPLEXES MINIMAL VOLTAGE CRITERIA FOR LVH, MAY BE NORMAL VARIANT NONSPECIFIC T WAVE ABNORMALITY ABNORMAL ECG WHEN COMPARED WITH ECG OF 14-JUN-2017 08:48, PREMATURE SUPRAVENTRICULAR COMPLEXES ARE NOW PRESENT NONSPECIFIC T WAVE ABNORMALITY NO LONGER EVIDENT IN INFERIOR LEADS Confirmed by COLE LEWIS, JULISSA ([id number]) on 06/16/2017 1:21:48 PM Referred By: Atilio GAINES Confirmed By:JULISSA GALVAN MD
--- NOTE | 2017-06-16 13:28 | PN ---
Teaching Attending Note Name of Resident: Keyur Jimenez ATTENDING PHYSICIAN STATEMENT I saw and evaluated the patient. I reviewed the resident's note and discussed the case with the resident. I agree with the resident's findings and plan as documented. SUBJECTIVE: Patient coughing more and she feels more short of breath. OBJECTIVE: Vital Signs Period Temp Pulse Resp BP Sys/Shankar Pulse Ox Last 24 Hr 97.9 F-98.6 F 70-90 18-20 164-192/72-96 94-97 HEART: S1S2, RRR LUNGS: Clear ABDOMEN: Obese, soft, non-tender, non-distended, normal BS EXTREMITIES: No edema ASSESSMENT AND PLAN: This is a 62-year-old woman with a history of chronic diastolic heart failure, type 2 DM, HTN, hyperlipidemia, CAD, CABG, asthma, KATINA, anxiety, pulm HTN, PAF who presented to the ER with a worsening cough. 1. Elevated troponin in a patient with SOB and history of CAD - Troponin 0.32 -> 0.31 -> 0.31 -> 0.30 - No evidence of acute coronary syndrome 2. Cough - Continue to treat asthma exacerbation - On Protonix for possible GERD - No evidence of dysphagia 3. Acute exacerbation of chronic persistent asthma - Continue SoluMedrol at same dose - Continue Symbicort, albuterol as needed 4. CAD, history of stents - Continue aspirin, Coreg, Nitropatch, Crestor, Effient 5. Hypertensive urgency - Improved with Hydralazine IV 6. Hypertension, uncontrolled - Continue Coreg, Hydralazine, Demadex - Coreg decreased secondary to asthma exacerbation - Hydralazine increased - Norvasc discontinued secondary to previous intolerance 7. Hyperlipidemia - Continue Crestor 8. Chronic diastolic heart failure - Stable - Continue Demadex 9. Stage 4 CKD - Stable 10. Type 2 DM - Continue Levemir, Novolog sliding scale 11. Anxiety - Continue Klonopin as needed 12. KATINA - Continue CPAP at night 13. Paroxysmal atrial fibrillation - Remains in SR 14. Pulmonary HTN
[2017-06-16] MEDS: hydrALAZINE HCL 25 MG TABLET (FP) PO SCH ×2 (13:56→22:29)
[2017-06-16] MEDS: clonazePAM 0.5 MG TABLET PO PRN ×2 (14:03→22:29)
--- NOTE | 2017-06-16 14:34 | PN ---
Progress Note, Physician History of Present Illness: pulmonary c/o increased sob earlier,currently feeling better. - Current Medication List Current Medications: Active Medications Acetaminophen (Tylenol -) 650 mg PO Q4H PRN PRN Reason: FEVER OR PAIN Albuterol Sulfate (Ventolin 0.083% Nebulizer Soln -) 1 amp NEB Q4H PRN PRN Reason: SHORT OF BREATH/WHEEZING Last Admin: 06/16/17 11:10 Dose: 1 amp Aspirin (Asa -) 81 mg PO DAILY [facility] Last Admin: 06/16/17 09:38 Dose: 81 mg Budesonide/Formoterol Fumarate (Symbicort 160/4.5mcg -) 2 puff IH BID [facility] Last Admin: 06/16/17 09:42 Dose: 2 puff Carvedilol (Coreg Cr -) 10 mg PO DAILY [facility] Last Admin: 06/16/17 09:41 Dose: 10 mg Clonazepam (Klonopin -) 0.5 mg PO QID PRN PRN Reason: ANXIETY Last Admin: 06/16/17 14:03 Dose: 0.5 mg Ferrous Sulfate (Feosol -) 325 mg PO BID [facility] Last Admin: 06/16/17 09:41 Dose: 325 mg Heparin Sodium (Porcine) (Heparin -) 5,000 unit SQ TID [facility] Last Admin: 06/16/17 13:59 Dose: 5,000 unit Hydralazine HCl (Apresoline -) 75 mg PO TID [facility] Last Admin: 06/16/17 13:56 Dose: 75 mg Insulin Aspart (Novolog Vial Sliding Scale -) 1 vial SQ ACHS [facility] PRN Reason: Protocol Last Admin: 06/16/17 11:36 Dose: 6 units Insulin Detemir (Levemir Vial) 40 units SQ HS [facility] Methylprednisolone Sodium Succinate (Solu-Medrol -) 40 mg IVPB Q8H-IV [facility] Last Admin: 06/16/17 09:30 Dose: 40 mg Nitroglycerin (Nitro-Dur Patch -) 0.2 mg TD DAILY [facility] Last Admin: 06/16/17 11:30 Dose: 0.2 mg Pantoprazole Sodium (Protonix -) 40 mg PO DAILY [facility] Last Admin: 06/16/17 09:40 Dose: 40 mg Prasugrel (Effient -) 10 mg PO DAILY [facility] Last Admin: 06/16/17 09:42 Dose: 10 mg Rosuvastatin Calcium (Crestor -) 10 mg PO HS [facility] Last Admin: 06/15/17 22:18 Dose: 10 mg Torsemide (Demadex -) 20 mg PO DAILY [facility] Last Admin: 06/16/17 09:40 Dose: 20 mg - Objective Vital Signs: Vital Signs Temperature 98.6 F 06/16/17 10:00 Pulse Rate 88 06/16/17 11:00 Respiratory Rate 20 06/16/17 10:00 Blood Pressure 192/96 06/16/17 10:00 O2 Sat by Pulse Oximetry (%) 97 06/16/17 11:00 Constitutional: Yes: Calm, Obese Eyes: Yes: WNL HENT: Yes: WNL Neck: Yes: WNL Cardiovascular: Yes: Regular Rate and Rhythm, S1, S2 Gastrointestinal: Yes: Normal Bowel Sounds, Soft Extremities: Yes: WNL Edema: Yes Labs: CBC, BMP 06/16/17 05:48 06/16/17 05:48 INR, PTT INR 1.00 (0.82-1.09) 06/14/17 06:00 Problem List - Problems (1) Asthma exacerbation Code(s): J45.901 - UNSPECIFIED ASTHMA WITH (ACUTE) EXACERBATION (2) HTN (hypertension) Code(s): I10 - ESSENTIAL (PRIMARY) HYPERTENSION Qualifiers: Hypertension type: unspecified secondary hypertension Qualified Code(s) : I15.9 - Secondary hypertension, unspecified; I15 - Secondary hypertension (3) Anemia Code(s): D64.9 - ANEMIA, UNSPECIFIED (4) IDDM (insulin dependent diabetes mellitus) Code(s): E11.9 - TYPE 2 DIABETES MELLITUS WITHOUT COMPLICATIONS Z79.4 - SENIOR LIVING (CURRENT) USE OF INSULIN (5) ASHD (arteriosclerotic heart disease) Code(s): I25.10 - ATHSCL HEART DISEASE OF [place] CORONARY ARTERY W/O ANG PCTRS (6) Sleep apnea, obstructive Code(s): G47.33 - OBSTRUCTIVE SLEEP APNEA (ADULT) (PEDIATRIC) Assessment/Plan IMP CHRONIC PERSISTENT ASTHMA WITH ACUTE EXACERBATION CLINICALLY IMPROVING ASHD S/P STENT ELEVATED TROPONIN S/P [place] IDDM KATINA ON CPAP 11cm/h20 HTN ACUTE ON CHRONIC RENAL FAILURE WORSENING PLAN IV STEROIDS SAME DOSE,HOPEFULLY TAPER IN AM INHALED BRONCHODILATTORS NASAL O2 MONITOR PEAK FLOW ROBITUSSIN MONITOR LYTE,RENAL FUNCTION DR BENDER Problem List - Problems (1) Asthma exacerbation Code(s): J45.901 - UNSPECIFIED ASTHMA WITH (ACUTE) EXACERBATION (2) HTN (hypertension) Code(s): I10 - ESSENTIAL (PRIMARY) HYPERTENSION Qualifiers: Hypertension type: unspecified secondary hypertension Qualified Code(s) : I15.9 - Secondary hypertension, unspecified; I15 - Secondary hypertension (3) Anemia Code(s): D64.9 - ANEMIA, UNSPECIFIED (4) IDDM (insulin dependent diabetes mellitus) Code(s): E11.9 - TYPE 2 DIABETES MELLITUS WITHOUT COMPLICATIONS Z79.4 - SAMPLE MAKER HAND (CURRENT) USE OF INSULIN (5) ASHD (arteriosclerotic heart disease) Code(s): I25.10 - ATHSCL HEART DISEASE OF [place] CORONARY ARTERY W/O ANG PCTRS (6) Sleep apnea, obstructive Code(s): G47.33 - OBSTRUCTIVE SLEEP APNEA (ADULT) (PEDIATRIC)
[2017-06-16] MEDS ORDERED: LATANOPROST 0.005% OPHTH SOLN 2.5ML BOTTLE OU PRN (15:58)
--- NOTE | 2017-06-16 16:25 | PN ---
Physical Exam: SUBJECTIVE: Patient seen and examined No acute events overnight. Patient complaining of episodes of shortness of breath. Barium swallow was performed today OBJECTIVE: Vital Signs Period Temp Pulse Resp BP Sys/Shankar Pulse Ox Last 24 Hr 97.9 F-98.6 F 70-90 18-20 125-192/66-96 94-98 GENERAL: The patient is awake, alert, and fully oriented, in no acute distress. HEAD: Normal with no signs of trauma. EYES: Extraocular movements intact, sclera anicteric, conjunctiva clear. No ptosis. ENT: Oropharynx clear without exudates, moist mucous membranes. NECK: Trachea midline, full range of motion, supple. LUNGS: Breath sounds equal, clear to auscultation bilaterally, + wheezing bilaterally, no crackles, no accessory muscle use. HEART: Regular rate and rhythm, S1, S2 without murmur, rub or gallop. ABDOMEN: Soft, nontender, nondistended, normoactive bowel sounds, no guarding, no rebound, no hepatosplenomegaly, no masses. EXTREMITIES: 2+ radial/dp pulses, warm, well-perfused, no LE edema. NEUROLOGICAL: Cranial nerves II through XII grossly intact. Normal speech, gait appropriate PSYCH: Normal mood, normal affect. SKIN: Warm, dry, normal turgor, no rashes or lesions noted Laboratory Results - last 24 hr 06/15/17 06/15/17 06/16/17 16:56 22:24 05:48 WBC RBC Hgb Hct MCV MCH MCHC RDW Plt Count MPV Neutrophils % Lymphocytes % Monocytes % Eosinophils % Basophils % Sodium 134 L Potassium 4.4 Chloride 98 Carbon Dioxide 23 Anion Gap 13 BUN 76 H Creatinine 3.4 H Creat Clearance w eGFR 13.69 POC Glucometer 369 419 Random Glucose 304 H* Calcium 8.6 Phosphorus 4.3 Magnesium 2.2 Total Bilirubin 0.1 L D AST 17 ALT 17 Alkaline Phosphatase 118 H Total Protein 7.6 Albumin 3.3 L 06/16/17 06/16/17 06/16/17 05:48 06:03 11:35 WBC 16.1 H D RBC 4.09 Hgb 10.3 L Hct 32.0 L MCV 78.3 L MCH 25.3 L MCHC 32.3 RDW 12.8 Plt Count 321 MPV 8.3 Neutrophils % 90.4 H Lymphocytes % 6.7 L D Monocytes % 2.8 L D Eosinophils % 0.0 Basophils % 0.1 Sodium Potassium Chloride Carbon Dioxide Anion Gap BUN Creatinine Creat Clearance w eGFR POC Glucometer 310 255 Random Glucose Calcium Phosphorus Magnesium Total Bilirubin AST ALT Alkaline Phosphatase Total Protein Albumin Active Medications Generic Name Dose Route Start Last Admin Trade Name Freq PRN Reason Stop Dose Admin Acetaminophen 650 mg 06/13/17 21:29 Tylenol - PO Q4H PRN FEVER OR PAIN Albuterol Sulfate 1 amp 06/14/17 13:02 06/16/17 11:10 Ventolin 0.083% Nebulizer Soln - NEB 1 amp Q4H PRN Administration SHORT OF BREATH/WHEEZING Aspirin 81 mg 06/14/17 10:00 06/16/17 09:38 Asa - PO 81 mg DAILY [facility] Administration Budesonide/Formoterol Fumarate 2 puff 06/14/17 08:00 06/16/17 09:42 Symbicort 160/4.5mcg - IH 2 puff BID [facility] Administration Carvedilol 10 mg 06/14/17 11:30 06/16/17 09:41 Coreg Cr - PO 10 mg DAILY [facility] Administration Clonazepam 0.5 mg 06/13/17 21:42 06/16/17 14:03 Klonopin - PO 0.5 mg QID PRN Administration ANXIETY Ferrous Sulfate 325 mg 06/14/17 10:00 06/16/17 09:41 Feosol - PO 325 mg BID [facility] Administration Heparin Sodium (Porcine) 5,000 unit 06/13/17 22:00 06/16/17 13:59 Heparin - SQ 5,000 unit TID [facility] Administration Hydralazine HCl 75 mg 06/16/17 14:00 06/16/17 13:56 Apresoline - PO 75 mg TID [facility] Administration Insulin Aspart 1 vial 06/13/17 22:13 06/16/17 11:36 Novolog Vial Sliding Scale - SQ 6 units ACHS [facility] Administration Protocol Insulin Detemir 40 units 06/16/17 22:00 Levemir Vial SQ HS [facility] Latanoprost 1 drop 06/16/17 16:11 Xalatan 0.005% Eye Drops - OU HS [facility] Methylprednisolone Sodium Succinate 40 mg 06/14/17 13:00 06/16/17 09:30 Solu-Medrol - IVPB 40 mg Q8H-IV [facility] Administration Nitroglycerin 0.2 mg 06/14/17 10:00 06/16/17 11:30 Nitro-Dur Patch - TD 0.2 mg DAILY [facility] Administration Pantoprazole Sodium 40 mg 06/14/17 11:45 06/16/17 09:40 Protonix - PO 40 mg DAILY [facility] Administration Prasugrel 10 mg 06/14/17 10:00 06/16/17 09:42 Effient - PO 10 mg DAILY [facility] Administration Rosuvastatin Calcium 10 mg 06/13/17 22:00 06/15/17 22:18 Crestor - PO 10 mg HS [facility] Administration Torsemide 20 mg 06/14/17 10:00 06/16/17 09:40 Demadex - PO 20 mg DAILY [facility] Administration ASSESSMENT/PLAN: 62 yo F with PMH of CHF, IDDM, HTN, CAD(S/p CABG x 2 stents), asthma, and anxiety presented to the ED with 1 week history of cough found to have elevated trop of 0.32 and was admitted for observation to R/o ACS #- Cough - Asthma * In no acute asthma exacerbation * Continue Home meds Albuterol Neb Q 4H , and symbicort 2 inh PO BID * IV 40 mg IVPB salumedorol started * Nasal O2 * Mucinex DM * Pulmonary following, Dr. Huang * Barium swallow eval performed today, results pending. #- Troponin elevation : possibley demand vs renal failure vs ACS * Heart score of 5 * Pt has Hx of HTN , CAD S/P CABG x 2 stents , and IDDM * First Trop 0.32, second 0.31 continue, third trop is 0.30 * Aspirin 162 mg was given in ED. Will continue 81 mg daily * Transfer from Tele to med surg * Cardiology following, Dr. Chen * Continue Effient 10 mg PO daily # HTN * 148/98 * monitor BP * Continue Coreg CR 10 mg PO daily * Continue Hydralazine 50 mg PO TID * Continue Amlodipine 2.5 mg PO daily * Continue nitroglycerin patch 0.2 mg #- Diastolic CHF , Chronic * stable, in no acute exacerbation, * last Echo in August 2016 shows EF- 51 % * continue home meds Torsemide [Demadex -] 20 mg PO DAILY & Hydralazine HCl [ Apresoline -] 50 mg PO TID, #- IDDM, chronic * FS * RAISS * Increase Levemir to 40 units HS * Diabetic Diet #- Chronic kidney disease, stage 4 * Cr base line around 3 * today Cr 3.4 * continue torsemide 20 mg PO daily * avoid nephrotoxins * Nephrology following, Dr. Garcia # Anxiety , chronic * Continue home meds Clonazepam [KlonoPIN] 0.5 mg PO QID PRN # HLD * Continue crestor 10 mg PO hs #- DVT Proph, medium * SCDs * Heparin 5000 unit SQ TID #- F/E/N * F: On NO fluid * Electrolytes WNL * Diabetic/low sodium diet Visit type - Emergency Visit Emergency Visit: No - New Patient This patient is new to me today: No - Critical Care Critical Care patient: No
[2017-06-16] MEDS: INSULIN DETEMIR 100 UNITS/ML MDV SQ SCH (22:30)
[2017-06-16] MEDS: LATANOPROST 0.005% OPHTH SOLN 2.5ML BOTTLE OU SCH (22:31)
[2017-06-16] MEDS: guaiFENesin/D-METHORPHAN HB 1 EACH TAB.ER.12H PO SCH (22:31)
[2017-06-16] MEDS: ROSUVASTATIN CA 10 MG TABLET (FP) PO SCH (22:36)
[2017-06-17] MEDS: methylPREDNISolone NA SUCC 40 MG/1 ML VIAL IVPB SCH ×3 (01:06→22:20)
[2017-06-17] MEDS ORDERED: INSULIN (NOVOLOG) ASPART 100 UNITS/ML 10ML VIAL ONE ×2 (05:58→22:23)
[2017-06-17] MEDS: hydrALAZINE HCL 25 MG TABLET (FP) PO SCH ×3 (06:37→22:19)
[2017-06-17] MEDS: HEPARIN NA (PORCINE) 5,000 UNITS/ML 1ML VIAL SQ SCH ×3 (06:38→22:20)
[2017-06-17] MEDS: INSULIN SLIDING SCALE (NOVOLOG) 1 VIAL SQ SCH ×4 (06:39→22:31)
[2017-06-17 07:11] LABS: BASOPHIL 0.1 % (0-2.0); MCH 25.7 pg (25.7-33.7); MCHC 32.9 g/dl (32.0-36.0); MEAN CELL VOLUME 78.1 fl (80-96); MEAN PLT VOLUME 8.6 fl (7.5-11.1); NEUTROPHILS 90.3 % (42.8-82.8); PLATELET COUNT 280 K/MM3 (134-434); RDW 12.8 % (11.6-15.6); WHITE BLOOD COUNT 15.8 K/mm3 (4.0-10.0)
[2017-06-17 07:46] LABS: ANION GAP 12 (8-16); CALCIUM 8.7 mg/dL (8.5-10.1); CO2 24 mmol/L (21-32); CREATININE 3.3 mg/dL (0.55-1.02); GLUCOSE,RANDOM 249 mg/dL (74-106); MAGNESIUM 2.4 mg/dL (1.8-2.4); PHOSPHOROUS 4.4 mg/dL (2.5-4.9)
[2017-06-17] MEDS ORDERED: PT OWN MED DRAWER 7, Y5N ONE ×2 (09:26→22:04)
--- NOTE | 2017-06-17 09:27 | PN ---
Physical Exam: SUBJECTIVE: Patient seen and examined No acute events overnight. Patient feels significantly better this morning. She reports foamy urine. Barium swallow performed yesterday, results: normal barium swallow. OBJECTIVE: Vital Signs Period Temp Pulse Resp BP Sys/Shankar Pulse Ox Last 24 Hr 98 F-99.1 F 76-90 20-20 125-192/66-96 97-97 GENERAL: The patient is awake, alert, and fully oriented, in no acute distress. HEAD: Normal with no signs of trauma. EYES: Extraocular movements intact, sclera anicteric, conjunctiva clear. No ptosis. ENT: Oropharynx clear without exudates, moist mucous membranes. NECK: Trachea midline, full range of motion, supple. LUNGS: Breath sounds equal, clear to auscultation bilaterally, no wheezes, no crackles, no accessory muscle use. HEART: Regular rate and rhythm, S1, S2 without murmur, rub or gallop. ABDOMEN: Soft, nontender, + mild distention, normoactive bowel sounds, no guarding, no rebound, no hepatosplenomegaly, no masses. EXTREMITIES: 2+ radial/dp pulses, warm, well-perfused, no LE edema. NEUROLOGICAL: Cranial nerves II through XII grossly intact. Normal speech, gait appropriate PSYCH: Normal mood, normal affect. SKIN: Warm, dry, normal turgor, no rashes or lesions noted Laboratory Results - last 24 hr 06/16/17 06/16/17 06/16/17 11:35 17:06 22:18 WBC RBC Hgb Hct MCV MCH MCHC RDW Plt Count MPV Neutrophils % Lymphocytes % Monocytes % Eosinophils % Basophils % Sodium Potassium Chloride Carbon Dioxide Anion Gap BUN Creatinine POC Glucometer 255 307 383 Random Glucose Calcium Phosphorus Magnesium 06/17/17 06/17/17 06/17/17 05:35 05:35 06:36 WBC 15.8 H RBC 4.05 Hgb 10.4 L Hct 31.7 L MCV 78.1 L MCH 25.7 MCHC 32.9 RDW 12.8 Plt Count 280 MPV 8.6 Neutrophils % 90.3 H Lymphocytes % 6.6 L Monocytes % 3.0 L Eosinophils % 0.0 Basophils % 0.1 Sodium 135 L Potassium 4.4 Chloride 99 Carbon Dioxide 24 Anion Gap 12 BUN 88 H Creatinine 3.3 H POC Glucometer 256 Random Glucose 249 H Calcium 8.7 Phosphorus 4.4 Magnesium 2.4 Active Medications Generic Name Dose Route Start Last Admin Trade Name Freq PRN Reason Stop Dose Admin Acetaminophen 650 mg 06/13/17 21:29 Tylenol - PO Q4H PRN FEVER OR PAIN Albuterol Sulfate 1 amp 06/14/17 13:02 06/16/17 17:20 Ventolin 0.083% Nebulizer Soln - NEB 1 amp Q4H PRN Administration SHORT OF BREATH/WHEEZING Aspirin 81 mg 06/14/17 10:00 06/16/17 09:38 Asa - PO 81 mg DAILY LALO Administration Budesonide/Formoterol Fumarate 2 puff 06/14/17 08:00 06/16/17 22:29 Symbicort 160/4.5mcg - IH 2 puff BID LALO Administration Carvedilol 10 mg 06/14/17 11:30 06/16/17 09:41 Coreg Cr - PO 10 mg DAILY LALO Administration Clonazepam 0.5 mg 06/13/17 21:42 06/16/17 22:29 Klonopin - PO 0.5 mg QID PRN Administration ANXIETY Ferrous Sulfate 325 mg 06/14/17 10:00 06/16/17 22:29 Feosol - PO 325 mg BID LALO Administration Guaifenesin 1 tablet 06/16/17 22:00 06/16/17 22:31 Mucinex Dm - PO Not Given BID [facility] Heparin Sodium (Porcine) 5,000 unit 06/13/17 22:00 06/17/17 06:38 Heparin - SQ 5,000 unit TID LALO Administration Hydralazine HCl 75 mg 06/16/17 14:00 06/17/17 06:37 Apresoline - PO 75 mg TID LALO Administration Insulin Aspart 1 vial 06/13/17 22:13 06/17/17 06:39 Novolog Vial Sliding Scale - SQ 6 units ACHS LALO Administration Protocol Insulin Detemir 40 units 06/16/17 22:00 06/16/17 22:30 Levemir Vial SQ 40 units HS [facility] Administration Latanoprost 1 drop 06/16/17 16:11 06/16/17 22:31 Xalatan 0.005% Eye Drops - OU 1 drop HS LALO Administration Methylprednisolone Sodium Succinate 40 mg 06/14/17 13:00 06/17/17 01:06 Solu-Medrol - IVPB 40 mg Q8H-IV LALO Administration Nitroglycerin 0.2 mg 06/14/17 10:00 06/16/17 11:30 Nitro-Dur Patch - TD 0.2 mg DAILY LALO Administration Pantoprazole Sodium 40 mg 06/14/17 11:45 06/16/17 09:40 Protonix - PO 40 mg DAILY LALO Administration Polyethylene Glycol 17 gm 06/17/17 10:00 Miralax (For Daily Use) - PO DAILY [facility] Prasugrel 10 mg 06/14/17 10:00 06/16/17 09:42 Effient - PO 10 mg DAILY LALO Administration Rosuvastatin Calcium 10 mg 06/13/17 22:00 06/16/17 22:36 Crestor - PO 10 mg HS LALO Administration Torsemide 20 mg 06/14/17 10:00 06/16/17 09:40 Demadex - PO 20 mg DAILY LALO Administration ASSESSMENT/PLAN: 62 yo F with PMH of CHF, IDDM, HTN, CAD(S/p CABG x 2 stents), asthma, and anxiety presented to the ED with 1 week history of cough found to have elevated trop of 0.32 and was admitted for observation to R/o ACS #- Cough - Asthma * In acute asthma exacerbation * Continue Home meds Albuterol Neb Q 4H and symbicort 2 IH PO BID * IV 40 mg IVPB Q12H salumedorol * Nasal O2 * Mucinex DM * Pulmonary following, Dr. Huang * Normal barium swallow evaluation #- Troponin elevation : possibley demand vs renal failure vs ACS * Heart score of 5 * Pt has Hx of HTN , CAD S/P CABG x 2 stents , and IDDM * First Trop 0.32, second 0.31 continue, third trop is 0.30 * Aspirin 162 mg was given in ED. Will continue 81 mg daily * Transfer from Tele to med surg * Cardiology following, Dr. Chen * Continue Effient 10 mg PO daily # Constipation * Miralax daily #Foamy urine * UA pending, will f/u results # HTN - likely due to steroids * 163/78 * monitor BP * Continue Coreg CR 10 mg PO daily * Continue Hydralazine 50 mg PO TID * Continue Amlodipine 2.5 mg PO daily * Continue nitroglycerin patch 0.2 mg #- Diastolic CHF , Chronic * stable, in no acute exacerbation, * last Echo in August 2016 shows EF- 51 % * continue home meds Torsemide [Demadex -] 20 mg PO DAILY & Hydralazine HCl [ Apresoline -] 50 mg PO TID, #- IDDM, chronic- increased sugars likely due to steroids * FS * RAISS * Increase Levemir to 40 units HS * Diabetic Diet #- Chronic kidney disease, stage 4 * Cr base line around 3 * today Cr 3.3 * Increased Cr likely due to torsemide and steroids * continue torsemide 20 mg PO daily * avoid nephrotoxins * Nephrology following, Dr. Garcia # Anxiety , chronic * Continue home meds Clonazepam [KlonoPIN] 0.5 mg PO QID PRN # HLD * Continue crestor 10 mg PO hs #- DVT Proph, medium * SCDs * Heparin 5000 unit SQ TID #- F/E/N * F: On NO fluid * Electrolytes WNL * Diabetic/low sodium diet Visit type - Emergency Visit Emergency Visit: No - New Patient This patient is new to me today: No - Critical Care Critical Care patient: No
[2017-06-17] MEDS: FERROUS SO4 325 MG TABLET (FP) PO SCH ×2 (09:30→22:19)
[2017-06-17] MEDS: ASPIRIN 81 MG CHEWABLE TABLETS PO SCH (09:30)
[2017-06-17] MEDS: TORSEMIDE 20 MG TABLET (FP) PO SCH (09:30)
[2017-06-17] MEDS: PANTOPRAZOLE 40 MG TABLET (FP) PO SCH (09:31)
[2017-06-17] MEDS: POLYETHYLENE GLYCOL 3350 119 GM BTL PO SCH (09:31)
[2017-06-17] MEDS: guaiFENesin/D-METHORPHAN HB 1 EACH TAB.ER.12H PO SCH ×2 (09:32→22:21)
[2017-06-17] MEDS: BUDESONIDE/FORMETEROL FUMARATE 160/4.5 mcg INHALER IH SCH ×2 (09:32→22:20)
[2017-06-17] MEDS: PRASUGREL HCL 10 MG TAB PO SCH (09:32)
[2017-06-17] MEDS: CARVEDILOL PHOSPHATE CR 10 MG CAPSULE PO SCH (09:33)
--- NOTE | 2017-06-17 10:36 | PN ---
Progress Note (short form) - Note Progress Note: s: no cp palps dizzy; still sob but much better o: Vital Signs Period Temp Pulse Resp BP Sys/Shankar Pulse Ox Last 24 Hr 98 F-99.1 F 76-88 20-20 125-183/66-82 96-97 Constitutional: Yes: No Distress, Calm, Obese Eyes: No: Sclera Icterus Respiratory: Yes: CTA Bilaterally, Wheezes. No: Accessory Muscle Use, Rales Gastrointestinal: Yes: Normal Bowel Sounds. No: Distention, Hepatomegaly, Palpable Mass, Tenderness Cardiovascular: Yes: Regular Rate and Rhythm JVD: No Heart Sounds: Yes: S1, S2. No: Gallop Murmur: No: Systolic Murmur, Diastolic Murmur Extremities: No: Cold, Cyanosis Edema: No Integumentary: No: Jaundice diaphoresis Neurological: Yes: Alert, Oriented (x3) Psychiatric: No: Agitated - Other Data Labs, Other Data: Current Medications Generic Name Dose Route Start Last Admin Trade Name Freq PRN Reason Stop Dose Admin Acetaminophen 650 mg 06/13/17 21:29 Tylenol - PO Q4H PRN FEVER OR PAIN Albuterol Sulfate 1 amp 06/14/17 13:02 06/16/17 17:20 Ventolin 0.083% Nebulizer Soln - NEB 1 amp Q4H PRN Administration SHORT OF BREATH/WHEEZING Aspirin 81 mg 06/14/17 10:00 06/17/17 09:30 Asa - PO 81 mg DAILY LALO Administration Budesonide/Formoterol Fumarate 2 puff 06/14/17 08:00 06/17/17 09:32 Symbicort 160/4.5mcg - IH 2 puff BID LALO Administration Carvedilol 10 mg 06/14/17 11:30 06/17/17 09:33 Coreg Cr - PO 10 mg DAILY LALO Administration Clonazepam 0.5 mg 06/13/17 21:42 06/16/17 22:29 Klonopin - PO 0.5 mg QID PRN Administration ANXIETY Ferrous Sulfate 325 mg 06/14/17 10:00 06/17/17 09:30 Feosol - PO 325 mg BID LALO Administration Guaifenesin 1 tablet 06/16/17 22:00 06/17/17 09:32 Mucinex Dm - PO Not Given BID LALO Heparin Sodium (Porcine) 5,000 unit 06/13/17 22:00 06/17/17 06:38 Heparin - SQ 5,000 unit TID LALO Administration Hydralazine HCl 75 mg 06/16/17 14:00 06/17/17 06:37 Apresoline - PO 75 mg TID LALO Administration Insulin Aspart 1 vial 06/13/17 22:13 06/17/17 06:39 Novolog Vial Sliding Scale - SQ 6 units ACHS LALO Administration Protocol Insulin Detemir 40 units 06/16/17 22:00 06/16/17 22:30 Levemir Vial SQ 40 units HS [facility]ALO Administration Latanoprost 1 drop 06/16/17 16:11 06/16/17 22:31 Xalatan 0.005% Eye Drops - OU 1 drop HS LALO Administration Methylprednisolone Sodium Succinate 40 mg 06/17/17 22:00 Solu-Medrol - IVPB BID LALO Nitroglycerin 0.2 mg 06/14/17 10:00 06/16/17 11:30 Nitro-Dur Patch - TD 0.2 mg DAILY LALO Administration Pantoprazole Sodium 40 mg 06/14/17 11:45 06/17/17 09:31 Protonix - PO 40 mg DAILY LALO Administration Polyethylene Glycol 17 gm 06/17/17 10:00 06/17/17 09:31 Miralax (For Daily Use) - PO 17 grams DAILY LALO Administration Prasugrel 10 mg 06/14/17 10:00 06/17/17 09:32 Effient - PO 10 mg DAILY LALO Administration Rosuvastatin Calcium 10 mg 06/13/17 22:00 06/16/17 22:36 Crestor - PO 10 mg HS LALO Administration Torsemide 20 mg 06/14/17 10:00 06/17/17 09:30 Demadex - PO 20 mg DAILY LALO Administration CBC, BMP 06/17/17 05:35 06/17/17 05:35 Echo 01/15: nl LV/EF; dd2, hi E/e' = hi LAP. nl RV. mild LAE. mild-mod MR, mod TR. mild pHTN (46 mmHg). Echo 09/14/16: Low nl LVEF. RV not well seen. 1+ MR. Echo 03/2015: TDS, normal LV/RVF, no sig valv abn Dobut stress echo 10/2015: 7.34 min. 83% MPHR. HTN response. No EKG changes. TDS apex, portions of AW and basal PW not well seen. No ischemia, appropriate EF augmentation. (post PCI) CXR: clear lungs/pleura ECG x2 here (06/13 and 06/14): NSR, normal axis; LVH with repol; no path q's; no isch ST-Ts Assessment/Plan 61 year old f with known CAD--h/o NSTEMI '13 s/p LAD KAREN PCI 09/2013, and prox LCx KAREN PCI 2014, HTN, lone afib/PSVT, MR, pHTN, KATINA, NAFLD, HPL, CKD, anemia, IDDM who presents to the ED with shortness of breath. chronic diastolic CHF (acute on chronic HFPEF) - hx of "flash" pulmonary edema in the past--felt to be a combo of diast dysf and ischemic heart disease. Dry weight 247-250 lbs. - home dry wt running 241-244 for a while now, wt 238 here on admit - bnp ranges 1600 - 3000s (i.e. the latter when decompensated). 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 exacerbating bronchospasm -tx per pmd/pulm CAD: -s/p prox LCx KAREN PCI 2014 for crescendo angina, prior mLAD stent patent, prior PTCA'ed D2 [place], residual 70-80% distal RCA disease unchanged from prior cath 2012 --left for medical rx -trop 0.3 x4 here--no c/w ACS, due to hi LV filling pressures -ecg non-ischemic -sx's not consistent with ACS--no further w/u indicated - Continue home DAPT with ASA and Effient. cont crestor, coreg, NTG patch. - No ACEI given fluctuating renal function. HTN: - intolerant of multiple BP meds before--diovan, micardis, verap, norvasc, nifedipine, nisoldipine, catapres patch - home regimen is coreg CR 20, hydral 25 TID, nitro patch 0.2mg (BUCKNER with higher doses) -here have decreased coreg to 10 in case was worsening asthma but bp remains elevated. Have been increasing hydralazine for bp control, now up to 75 tid. Can increase to 100 tid if needed. - bp's tend to run higher in hosp, especially with steroids--will likely need lower hydral dose at home (takes it prn at home based on bp's b/c often too low and drops with sx's if takes hydral dose) HPL: - tolerating crestor 10 mg, zetia Myalgias w Atorva/Simva and high dose crestor - LDL >200 at baseline--130s here; same meds - declined PCSK-9 inhibitor trial KATINA / Mod PHTN - compliant with CPAP at home. - diastolic dysfunction likely also contributing to pHTN. ARF / CKD: - baseline creat runs 2.5-2.6 - higher here, suspect intravasc vol depletion (? insensible losses, decr po intake due to malaise/cough) Remote PAF and PSVT - lone AF episode in setting of dobutamine, no recurrence. No AC thought to be indicated - same plan
--- NOTE | 2017-06-17 11:01 | PN ---
Progress Note (short form) - Note Progress Note: Renal Follow up for CKD Stage 4 Pt seen and examined at the bedside reports myalgias and LE weakness (has had hx of similar symptoms that she attributed to Crestor) Dyspnea mildly improved no chest pain Vital Signs Temperature 98 F 06/17/17 06:00 Pulse Rate 81 06/17/17 09:45 Respiratory Rate 20 06/17/17 06:00 Blood Pressure 163/78 06/17/17 06:00 O2 Sat by Pulse Oximetry (%) 96 06/17/17 09:45 Intake & Output 06/14/17 06/15/17 06/16/17 06/17/17 23:59 23:59 23:59 23:59 Intake Total 650 520 830 Balance 650 520 830 Weight 238 lb 2 oz 241 lb 241 lb 6 oz 241 lb 8 oz Gen: NAD CVS: RRR Lungs: + exp wheeze Abd: soft NT/ND, Obese Ext: No edema CBC, BMP 06/17/17 05:35 06/17/17 05:35 Current Medications Acetaminophen (Tylenol -) 650 mg PO Q4H PRN PRN Reason: FEVER OR PAIN Albuterol Sulfate (Ventolin 0.083% Nebulizer Soln -) 1 amp NEB Q4H PRN PRN Reason: SHORT OF BREATH/WHEEZING Last Admin: 06/16/17 17:20 Dose: 1 amp Aspirin (Asa -) 81 mg PO DAILY [facility] Last Admin: 06/17/17 09:30 Dose: 81 mg Budesonide/Formoterol Fumarate (Symbicort 160/4.5mcg -) 2 puff IH BID [facility] Last Admin: 06/17/17 09:32 Dose: 2 puff Carvedilol (Coreg Cr -) 10 mg PO DAILY [facility] Last Admin: 06/17/17 09:33 Dose: 10 mg Clonazepam (Klonopin -) 0.5 mg PO QID PRN PRN Reason: ANXIETY Last Admin: 06/16/17 22:29 Dose: 0.5 mg Ferrous Sulfate (Feosol -) 325 mg PO BID [facility] Last Admin: 06/17/17 09:30 Dose: 325 mg Guaifenesin (Mucinex Dm -) 1 tablet PO BID [facility] Last Admin: 06/17/17 09:32 Dose: Not Given Heparin Sodium (Porcine) (Heparin -) 5,000 unit SQ TID [facility] Last Admin: 06/17/17 06:38 Dose: 5,000 unit Hydralazine HCl (Apresoline -) 75 mg PO TID [facility] Last Admin: 06/17/17 06:37 Dose: 75 mg Insulin Aspart (Novolog Vial Sliding Scale -) 1 vial SQ ACHS [facility] PRN Reason: Protocol Last Admin: 06/17/17 06:39 Dose: 6 units Insulin Detemir (Levemir Vial) 40 units SQ HS [facility] Last Admin: 06/16/17 22:30 Dose: 40 units Latanoprost (Xalatan 0.005% Eye Drops -) 1 drop OU HS [facility] Last Admin: 06/16/17 22:31 Dose: 1 drop Methylprednisolone Sodium Succinate (Solu-Medrol -) 40 mg IVPB BID [facility] Nitroglycerin (Nitro-Dur Patch -) 0.2 mg TD DAILY [facility] Last Admin: 06/16/17 11:30 Dose: 0.2 mg Pantoprazole Sodium (Protonix -) 40 mg PO DAILY [facility] Last Admin: 06/17/17 09:31 Dose: 40 mg Polyethylene Glycol (Miralax (For Daily Use) -) 17 gm PO DAILY [facility] Last Admin: 06/17/17 09:31 Dose: 17 grams Prasugrel (Effient -) 10 mg PO DAILY [facility] Last Admin: 06/17/17 09:32 Dose: 10 mg Torsemide (Demadex -) 20 mg PO DAILY [facility] Last Admin: 06/17/17 09:30 Dose: 20 mg A/p 62 year old woman with PMhx of COPD, Bronchial asthma, Insulin Dependent Diabetes mellitus, Hypertension, Myocardial Infarction, Chronic kidney Disease Stage 4, with a eGFR of 23 ml/min/1.73m2 presented with SOB and admitted for COPD exacerbation. #CKD Stage 4 with subnephrotoic proteinuria Renal function stable and pt is evolemic continue present diuretics #COPD exacerbation continue IV steroids/Nebs titrate as per pulmonary #Hypertension Goal BP < 140/90 pt intolerant to norvasc Hydralazine increased to 75mg TID bp still remains high (likely due to steroids) consider addition of alternative CCB (i.e. Procardia XL 30-60mg) Thank you Goyo Smith DO
--- NOTE | 2017-06-17 11:53 | PN ---
Progress Note, REVIEW ENGINEER - Note Progress Note: Pt reports feeling much better, coughing less, eating well. She expressed appreciation for MBS, feeling she no longer needs to be concerned about her swallowing function. Selected Entries 06/15/17 06/15/17 06/15/17 10:00 10:45 15:58 Breakfast 50% 50% Lunch 50% Supper Temperature 06/15/17 06/15/17 06/16/17 22:00 22:36 09:00 Breakfast 100% Lunch Supper 100% 100% Temperature 06/16/17 06/16/17 06/16/17 13:00 18:40 22:00 Breakfast Lunch 75% Supper 100% 100% Temperature 06/17/17 06/17/17 06/17/17 06:00 09:07 10:00 Breakfast 100% Lunch Supper Temperature 98 F 98 F Laboratory Tests 06/16/17 06/17/17 05:48 05:35 WBC 16.1 H D 15.8 H No further f/u indicated at this time.
[2017-06-17] MEDS: NITROGLYCERIN 0.2 MG/HOUR TD PATCH TD SCH (12:21)
--- NOTE | 2017-06-17 13:02 | PN ---
Progress Note (short form) - Note Progress Note: PULMONARY Breathing better today. Still with nonproductive cough and wheezing. Last Vital Signs Temp Pulse Resp BP Pulse Ox 98 F 79 20 182/78 96 06/17/17 10:00 06/17/17 10:00 06/17/17 10:00 06/17/17 10:00 06/17/17 09:45 Gen: NAD at rest Heart: RRR Lung: scattered rhonchi, wheezes Abd: soft, nontender Ext: trace edema CBC, BMP 06/17/17 05:35 06/17/17 05:35 Active Medications Acetaminophen (Tylenol -) 650 mg PO Q4H PRN PRN Reason: FEVER OR PAIN Albuterol Sulfate (Ventolin 0.083% Nebulizer Soln -) 1 amp NEB Q4H PRN PRN Reason: SHORT OF BREATH/WHEEZING Last Admin: 06/16/17 17:20 Dose: 1 amp Aspirin (Asa -) 81 mg PO DAILY [facility] Last Admin: 06/17/17 09:30 Dose: 81 mg Budesonide/Formoterol Fumarate (Symbicort 160/4.5mcg -) 2 puff IH BID [facility] Last Admin: 06/17/17 09:32 Dose: 2 puff Carvedilol (Coreg Cr -) 10 mg PO DAILY [facility] Last Admin: 06/17/17 09:33 Dose: 10 mg Clonazepam (Klonopin -) 0.5 mg PO QID PRN PRN Reason: ANXIETY Last Admin: 06/16/17 22:29 Dose: 0.5 mg Ferrous Sulfate (Feosol -) 325 mg PO BID [facility] Last Admin: 06/17/17 09:30 Dose: 325 mg Guaifenesin (Mucinex Dm -) 1 tablet PO BID [facility] Last Admin: 06/17/17 09:32 Dose: Not Given Heparin Sodium (Porcine) (Heparin -) 5,000 unit SQ TID [facility] Last Admin: 06/17/17 06:38 Dose: 5,000 unit Hydralazine HCl (Apresoline -) 75 mg PO TID [facility] Last Admin: 06/17/17 06:37 Dose: 75 mg Insulin Aspart (Novolog Vial Sliding Scale -) 1 vial SQ ACHS [facility] PRN Reason: Protocol Last Admin: 06/17/17 12:20 Dose: 10 units Insulin Detemir (Levemir Vial) 40 units SQ HS [facility] Last Admin: 06/16/17 22:30 Dose: 40 units Latanoprost (Xalatan 0.005% Eye Drops -) 1 drop OU HS [facility] Last Admin: 06/16/17 22:31 Dose: 1 drop Methylprednisolone Sodium Succinate (Solu-Medrol -) 40 mg IVPB BID [facility] Nitroglycerin (Nitro-Dur Patch -) 0.2 mg TD DAILY [facility] Last Admin: 06/17/17 12:21 Dose: 0.2 mg Pantoprazole Sodium (Protonix -) 40 mg PO DAILY [facility] Last Admin: 06/17/17 09:31 Dose: 40 mg Polyethylene Glycol (Miralax (For Daily Use) -) 17 gm PO DAILY [facility] Last Admin: 06/17/17 09:31 Dose: 17 grams Prasugrel (Effient -) 10 mg PO DAILY [facility] Last Admin: 06/17/17 09:32 Dose: 10 mg Torsemide (Demadex -) 20 mg PO DAILY [facility] Last Admin: 06/17/17 09:30 Dose: 20 mg A/P Acute Asthma Exacerbation Acute on Chronic Renal Failure CAD/+Troponins Obstructive Sleep Apnea HTN DM - medrol taper - inhaled bronchodilators standing and PRN - O2 to keep SpO2 >90% - monitor peak flow - demadex - monitor urine output, creatinine - DVT prophylaxis
[2017-06-17] MEDS: ALBUTEROL SO4 0.083% IH SOL 2.5 MG/3 ML VIAL.NEB. NEB PRN ×2 (13:03→21:50)
[2017-06-17 15:11] LABS: URINE APPEARANCE CLEAR; URINE BILIRUBIN NEGATIVE (NEGATIVE); URINE BLOOD NEGATIVE (NEGATIVE); URINE COLOR STRAW; URINE GLUCOSE (UA) 3+ (NEGATIVE); URINE KETONE NEGATIVE (NEGATIVE); URINE LEUK ESTERASE NEGATIVE (NEGATIVE); URINE NITRITE NEGATIVE (NEGATIVE); URINE UROBILINOGEN NEGATIVE mg/dL (0.2-1.0)
[2017-06-17 15:12] LABS: URINE PROTEIN 1+ (NEGATIVE)
[2017-06-17 15:13] LABS: URINE HYALINE CAST 4 /lpf; URINE WBC 1 /hpf (3-5)
--- NOTE | 2017-06-17 16:55 | PN ---
Teaching Attending Note Name of Resident: Keyur Jimenez ATTENDING PHYSICIAN STATEMENT I saw and evaluated the patient. I reviewed the resident's note and discussed the case with the resident. I agree with the resident's findings and plan as documented. SUBJECTIVE: Patient feels better today. OBJECTIVE: Vital Signs Period Temp Pulse Resp BP Sys/Shankar Pulse Ox Last 24 Hr 97.9 F-99.1 F 71-81 20-20 162-189/78-83 96-97 HEART: S1S2, RRR LUNGS: Clear ABDOMEN: Obese, soft, non-tender, non-distended, normal BS EXTREMITIES: No edema ASSESSMENT AND PLAN: This is a 62-year-old woman with a history of chronic diastolic heart failure, type 2 DM, HTN, hyperlipidemia, CAD, CABG, asthma, KATINA, anxiety, pulm HTN, PAF who presented to the ER with a worsening cough. 1. Elevated troponin in a patient with SOB and history of CAD - Troponin 0.32 -> 0.31 -> 0.31 -> 0.30 - No evidence of acute coronary syndrome 2. Cough - Continue to treat asthma exacerbation - On Protonix for possible GERD - No evidence of dysphagia, aspiration 3. Acute exacerbation of chronic persistent asthma - Taper SoluMedrol - Continue Symbicort, albuterol as needed 4. CAD, history of stents - Continue aspirin, Coreg, Nitropatch, Crestor, Effient 5. Hypertensive urgency - Improved with Hydralazine IV 6. Hypertension, uncontrolled - Continue Coreg, Hydralazine, Demadex - Coreg decreased secondary to asthma exacerbation - Hydralazine increased - Norvasc discontinued secondary to previous intolerance 7. Hyperlipidemia - Continue Crestor 8. Chronic diastolic heart failure - Stable - Continue Demadex 9. Stage 4 CKD 10. Type 2 DM - Continue Levemir, Novolog sliding scale 11. Anxiety - Continue Klonopin as needed 12. KATINA - Continue CPAP at night 13. Paroxysmal atrial fibrillation - Remains in SR 14. Pulmonary HTN
[2017-06-17] MEDS: ACETAMINOPHEN 325 MG TABLET (FP) PO PRN (17:14)
[2017-06-17] MEDS: LATANOPROST 0.005% OPHTH SOLN 2.5ML BOTTLE OU SCH (22:21)
[2017-06-17] MEDS: INSULIN DETEMIR 100 UNITS/ML MDV SQ SCH (22:21)
[2017-06-17] MEDS: clonazePAM 0.5 MG TABLET PO PRN (22:24)
[2017-06-18] MEDS: INSULIN SLIDING SCALE (NOVOLOG) 1 VIAL SQ SCH ×4 (06:42→21:53)
[2017-06-18] MEDS: HEPARIN NA (PORCINE) 5,000 UNITS/ML 1ML VIAL SQ SCH ×3 (06:42→21:52)
[2017-06-18] MEDS: hydrALAZINE HCL 25 MG TABLET (FP) PO SCH (06:42)
[2017-06-18] MEDS: ACETAMINOPHEN 325 MG TABLET (FP) PO PRN (07:01)
[2017-06-18] MEDS ORDERED: INSULIN DETEMIR 100 UNITS/ML MDV SQ ONE (07:06)
[2017-06-18 07:49] LABS: BASOPHIL 0.1 % (0-2.0); MCH 25.8 pg (25.7-33.7); MCHC 33.4 g/dl (32.0-36.0); MEAN CELL VOLUME 77.2 fl (80-96); MEAN PLT VOLUME 8.9 fl (7.5-11.1); NEUTROPHILS 85.8 % (42.8-82.8); PLATELET COUNT 331 K/MM3 (134-434); RDW 12.9 % (11.6-15.6); WHITE BLOOD COUNT 15.5 K/mm3 (4.0-10.0)
[2017-06-18 07:59] LABS: ANION GAP 12 (8-16); CALCIUM 8.8 mg/dL (8.5-10.1); CO2 22 mmol/L (21-32); CREATININE 3.4 mg/dL (0.55-1.02); GLUCOSE,RANDOM 228 mg/dL (74-106); MAGNESIUM 2.3 mg/dL (1.8-2.4); PHOSPHOROUS 4.4 mg/dL (2.5-4.9)
[2017-06-18] MEDS ORDERED: PT OWN MED DRAWER 7, Y5N ONE ×2 (09:55→21:47)
--- NOTE | 2017-06-18 09:59 | PN ---
Progress Note (short form) - Note Progress Note: s: no cp palps dizzy; still sob o: Vital Signs Period Temp Pulse Resp BP Sys/Shankar Pulse Ox Last 24 Hr 97.9 F-98.3 F 71-79 18-20 158-191/76-95 99 Constitutional: Yes: No Distress, Calm, Obese Eyes: No: Sclera Icterus Respiratory: Yes: CTA Bilaterally, Wheezes. No: Accessory Muscle Use, Rales Gastrointestinal: Yes: Normal Bowel Sounds. No: Distention, Hepatomegaly, Palpable Mass, Tenderness Cardiovascular: Yes: Regular Rate and Rhythm JVD: No Heart Sounds: Yes: S1, S2. No: Gallop Murmur: No: Systolic Murmur, Diastolic Murmur Extremities: No: Cold, Cyanosis Edema: No Integumentary: No: Jaundice diaphoresis Neurological: Yes: Alert, Oriented (x3) Psychiatric: No: Agitated - Other Data Labs, Other Data: Current Medications Generic Name Dose Route Start Last Admin Trade Name Freq PRN Reason Stop Dose Admin Acetaminophen 650 mg 06/13/17 21:29 06/18/17 07:01 Tylenol - PO 650 mg Q4H PRN Administration FEVER OR PAIN Albuterol Sulfate 1 amp 06/14/17 13:02 06/17/17 21:50 Ventolin 0.083% Nebulizer Soln - NEB 1 amp Q4H PRN Administration SHORT OF BREATH/WHEEZING Aspirin 81 mg 06/14/17 10:00 06/17/17 09:30 Asa - PO 81 mg DAILY LALO Administration Budesonide/Formoterol Fumarate 2 puff 06/14/17 08:00 06/17/17 22:20 Symbicort 160/4.5mcg - IH 2 puff BID LALO Administration Carvedilol 10 mg 06/14/17 11:30 06/17/17 09:33 Coreg Cr - PO 10 mg DAILY LALO Administration Clonazepam 0.5 mg 06/13/17 21:42 06/17/17 22:24 Klonopin - PO 0.5 mg QID PRN Administration ANXIETY Ferrous Sulfate 325 mg 06/14/17 10:00 06/17/17 22:19 Feosol - PO 325 mg BID LALO Administration Guaifenesin 1 tablet 06/16/17 22:00 06/17/17 22:21 Mucinex Dm - PO Not Given BID [facility]O Heparin Sodium (Porcine) 5,000 unit 06/13/17 22:00 06/18/17 06:42 Heparin - SQ 5,000 unit TID [facility] Administration Hydralazine HCl 100 mg 06/18/17 08:43 Apresoline - PO TID [facility]O Insulin Aspart 1 vial 06/13/17 22:13 06/18/17 06:42 Novolog Vial Sliding Scale - SQ 4 units ACHS LALO Administration Protocol Insulin Detemir 40 units 06/16/17 22:00 06/17/17 22:21 Levemir Vial SQ 40 units HS [facility]O Administration Latanoprost 1 drop 06/16/17 16:11 06/17/17 22:21 Xalatan 0.005% Eye Drops - OU 1 drop HS [facility]O Administration Methylprednisolone Sodium Succinate 40 mg 06/17/17 22:00 06/17/17 22:20 Solu-Medrol - IVPB 40 mg BID L[facility]O Administration Nitroglycerin 0.2 mg 06/14/17 10:00 06/17/17 12:21 Nitro-Dur Patch - TD 0.2 mg DAILY [facility]O Administration Pantoprazole Sodium 40 mg 06/14/17 11:45 06/17/17 09:31 Protonix - PO 40 mg DAILY [facility]O Administration Polyethylene Glycol 17 gm 06/17/17 10:00 06/17/17 09:31 Miralax (For Daily Use) - PO 17 grams DAILY [facility]O Administration Prasugrel 10 mg 06/14/17 10:00 06/17/17 09:32 Effient - PO 10 mg DAILY [facility]O Administration Torsemide 20 mg 06/14/17 10:00 06/17/17 09:30 Demadex - PO 20 mg DAILY [facility] Administration Vital Signs Period Temp Pulse Resp BP Sys/Shankar Pulse Ox Last 24 Hr 97.9 F-98.3 F 71-79 18-20 158-191/76-95 99 Echo 01/15: nl LV/EF; dd2, hi E/e' = hi LAP. nl RV. mild LAE. mild-mod MR, mod TR. mild pHTN (46 mmHg). Echo 09/14/16: Low nl LVEF. RV not well seen. 1+ MR. Echo 03/2015: TDS, normal LV/RVF, no sig valv abn Dobut stress echo 10/2015: 7.34 min. 83% MPHR. HTN response. No EKG changes. TDS apex, portions of AW and basal PW not well seen. No ischemia, appropriate EF augmentation. (post PCI) CXR: clear lungs/pleura ECG x2 here (06/13 and 06/14): NSR, normal axis; LVH with repol; no path q's; no isch ST-Ts Assessment/Plan 61 year old f with known CAD--h/o NSTEMI '13 s/p LAD KAREN PCI 09/2013, and prox LCx KAREN PCI 2014, HTN, lone afib/PSVT, MR, pHTN, KATINA, NAFLD, HPL, CKD, anemia, IDDM who presents to the ED with shortness of breath. chronic diastolic CHF (acute on chronic HFPEF) - hx of "flash" pulmonary edema in the past--felt to be a combo of diast dysf and ischemic heart disease. Dry weight 247-250 lbs. - home dry wt running 241-244 for a while now, wt 238 here on admit - bnp ranges 1600 - 3000s (i.e. the latter when decompensated). currently 1700 - Pulm pressure and wedge nitro-sensitive in clinical genetics laboratory chief so cont nitro as well ( can only tolerate low dose patch due to HAs) - cont home po torsemide, monitor for increasing vol with iv steroids, stable so far bronchospasm/asthma, acute exacerbation: -has had increase severity of sx's over past few months, now admitted for same -will try to decr coreg CR dose to 10mg, ? exacerbating bronchospasm -tx per pmd/pulm CAD: -s/p prox LCx KAREN PCI 2014 for crescendo angina, prior mLAD stent patent, prior PTCA'ed D2 [place], residual 70-80% distal RCA disease unchanged from prior cath 2012 --left for medical rx -trop 0.3 x4 here--no c/w ACS, due to hi LV filling pressures -ecg non-ischemic -sx's not consistent with ACS--no further w/u indicated - Continue home DAPT with ASA and Effient. cont crestor, coreg, NTG patch. - No ACEI given fluctuating renal function. HTN: - intolerant of multiple BP meds before--diovan, micardis, verap, norvasc, nifedipine, nisoldipine, catapres patch - home regimen is coreg CR 20, hydral 25 TID, nitro patch 0.2mg (BUCKNER with higher doses) -here have decreased coreg to 10 in case was worsening asthma but bp remains elevated. Have been increasing hydralazine for bp control, now up to 75 tid with bp still high so will increase to 100 tid today. - bp's tend to run higher in hosp, especially with steroids--will likely need lower hydral dose at home (takes it prn at home based on bp's b/c often too low and drops with sx's if takes hydral dose) HPL: - tolerating crestor 10 mg, zetia Myalgias w Atorva/Simva and high dose crestor - LDL >200 at baseline--130s here; same meds - declined PCSK-9 inhibitor trial KATINA / Mod PHTN - compliant with CPAP at home. - diastolic dysfunction likely also contributing to pHTN. ARF / CKD: - baseline creat runs 2.5-2.6 - higher here, suspect intravasc vol depletion (? insensible losses, decr po intake due to malaise/cough) Remote PAF and PSVT - lone AF episode in setting of dobutamine, no recurrence. No AC thought to be indicated - same plan
[2017-06-18] MEDS: CARVEDILOL PHOSPHATE CR 10 MG CAPSULE PO SCH (10:27)
[2017-06-18] MEDS: FERROUS SO4 325 MG TABLET (FP) PO SCH ×2 (10:29→21:50)
[2017-06-18] MEDS: PRASUGREL HCL 10 MG TAB PO SCH (10:29)
[2017-06-18] MEDS: TORSEMIDE 20 MG TABLET (FP) PO SCH (10:29)
[2017-06-18] MEDS: PANTOPRAZOLE 40 MG TABLET (FP) PO SCH (10:29)
[2017-06-18] MEDS: clonazePAM 0.5 MG TABLET PO PRN ×2 (10:29→21:55)
[2017-06-18] MEDS: ASPIRIN 81 MG CHEWABLE TABLETS PO SCH (10:29)
[2017-06-18] MEDS: guaiFENesin/D-METHORPHAN HB 1 EACH TAB.ER.12H PO SCH ×2 (10:30→21:50)
[2017-06-18] MEDS: BUDESONIDE/FORMETEROL FUMARATE 160/4.5 mcg INHALER IH SCH ×2 (10:30→21:49)
[2017-06-18] MEDS: methylPREDNISolone NA SUCC 40 MG/1 ML VIAL IVPB SCH ×2 (10:30→21:51)
[2017-06-18] MEDS: ALBUTEROL SO4 0.083% IH SOL 2.5 MG/3 ML VIAL.NEB. NEB PRN ×2 (11:25→21:27)
[2017-06-18] MEDS ORDERED: INSULIN (NOVOLOG) ASPART 100 UNITS/ML 10ML VIAL ONE ×2 (11:40→17:46)
[2017-06-18] MEDS: POLYETHYLENE GLYCOL 3350 119 GM BTL PO SCH (11:53)
--- NOTE | 2017-06-18 12:10 | PN ---
Progress Note (short form) - Note Progress Note: Renal Follow up for CKD Stage 4 Pt seen and examined at the bedside reports BUCKNER today no chest pain, sob is improving Vital Signs Temperature 98.2 F 06/18/17 06:00 Pulse Rate 77 06/18/17 11:25 Respiratory Rate 20 06/18/17 06:00 Blood Pressure 180/90 06/18/17 06:00 O2 Sat by Pulse Oximetry (%) 98 06/18/17 11:25 Intake & Output 06/15/17 06/16/17 06/17/17 06/18/17 23:59 23:59 23:59 23:59 Intake Total 520 830 210 10 Output Total 600 Balance 520 830 -390 10 Weight 241 lb 241 lb 6 oz 241 lb 8 oz 243 lb Gen: NAD CVS: RRR Lungs: no wheeze Abd: soft NT/ND, Obese Ext: No edema CBC, BMP 06/18/17 05:35 06/18/17 05:35 Current Medications Acetaminophen (Tylenol -) 650 mg PO Q4H PRN PRN Reason: FEVER OR PAIN Last Admin: 06/18/17 07:01 Dose: 650 mg Albuterol Sulfate (Ventolin 0.083% Nebulizer Soln -) 1 amp NEB Q4H PRN PRN Reason: SHORT OF BREATH/WHEEZING Last Admin: 06/18/17 11:25 Dose: 1 amp Aspirin (Asa -) 81 mg PO DAILY [facility] Last Admin: 06/18/17 10:29 Dose: 81 mg Budesonide/Formoterol Fumarate (Symbicort 160/4.5mcg -) 2 puff IH BID [facility] Last Admin: 06/18/17 10:30 Dose: 2 puff Carvedilol (Coreg Cr -) 10 mg PO DAILY [facility] Last Admin: 06/18/17 10:27 Dose: 10 mg Clonazepam (Klonopin -) 0.5 mg PO QID PRN PRN Reason: ANXIETY Last Admin: 06/18/17 10:29 Dose: 0.5 mg Ferrous Sulfate (Feosol -) 325 mg PO BID [facility] Last Admin: 06/18/17 10:29 Dose: 325 mg Guaifenesin (Mucinex Dm -) 1 tablet PO BID [facility] Last Admin: 06/18/17 10:30 Dose: Not Given Heparin Sodium (Porcine) (Heparin -) 5,000 unit SQ TID [facility] Last Admin: 06/18/17 06:42 Dose: 5,000 unit Hydralazine HCl (Apresoline -) 100 mg PO TID [facility] Insulin Aspart (Novolog Vial Sliding Scale -) 1 vial SQ ACHS [facility] PRN Reason: Protocol Last Admin: 06/18/17 11:51 Dose: 2 units Insulin Detemir (Levemir Vial) 40 units SQ HS [facility] Last Admin: 06/17/17 22:21 Dose: 40 units Latanoprost (Xalatan 0.005% Eye Drops -) 1 drop OU HS [facility] Last Admin: 06/17/17 22:21 Dose: 1 drop Methylprednisolone Sodium Succinate (Solu-Medrol -) 40 mg IVPB BID [facility] Last Admin: 06/18/17 10:30 Dose: 40 mg Nitroglycerin (Nitro-Dur Patch -) 0.2 mg TD DAILY [facility] Last Admin: 06/17/17 12:21 Dose: 0.2 mg Pantoprazole Sodium (Protonix -) 40 mg PO DAILY [facility] Last Admin: 06/18/17 10:29 Dose: 40 mg Polyethylene Glycol (Miralax (For Daily Use) -) 17 gm PO DAILY [facility] Last Admin: 06/18/17 11:53 Dose: 17 grams Prasugrel (Effient -) 10 mg PO DAILY [facility] Last Admin: 06/18/17 10:29 Dose: 10 mg Torsemide (Demadex -) 20 mg PO DAILY [facility] Last Admin: 06/18/17 10:29 Dose: 20 mg A/p 62 year old woman with PMhx of COPD, Bronchial asthma, Insulin Dependent Diabetes mellitus, Hypertension, Myocardial Infarction, Chronic kidney Disease Stage 4, with a eGFR of 23 ml/min/1.73m2 presented with SOB and admitted for COPD exacerbation. #CKD Stage 4 with subnephrotoic proteinuria Baseline Cr ~2.5 Cr rising in setting of diuretics BUN very high due to steroids and not reflective of uremia hold further torsemide for now #COPD exacerbation continue IV steroids/Nebs titrate as per pulmonary #Hypertension Goal BP < 140/90 pt intolerant to norvasc Hydralazine increased to 100mg TID Will increase Coreg CR to 20mg Daily Goal BP < 140/90 Thank you Goyo Smith DO
[2017-06-18] MEDS ORDERED: CARVEDILOL PHOSPHATE CR 10 MG CAPSULE PO ONE (12:30)
--- NOTE | 2017-06-18 12:48 | PN ---
Progress Note, Physician History of Present Illness: PULMONARY ALERT,FEELING BETTER LESS CONGESTED,+ COUGH - Current Medication List Current Medications: Active Medications Acetaminophen (Tylenol -) 650 mg PO Q4H PRN PRN Reason: FEVER OR PAIN Last Admin: 06/18/17 07:01 Dose: 650 mg Albuterol Sulfate (Ventolin 0.083% Nebulizer Soln -) 1 amp NEB Q4H PRN PRN Reason: SHORT OF BREATH/WHEEZING Last Admin: 06/18/17 11:25 Dose: 1 amp Aspirin (Asa -) 81 mg PO DAILY [facility] Last Admin: 06/18/17 10:29 Dose: 81 mg Budesonide/Formoterol Fumarate (Symbicort 160/4.5mcg -) 2 puff IH BID [facility] Last Admin: 06/18/17 10:30 Dose: 2 puff Carvedilol (Coreg Cr -) 20 mg PO DAILY [facility] Clonazepam (Klonopin -) 0.5 mg PO QID PRN PRN Reason: ANXIETY Last Admin: 06/18/17 10:29 Dose: 0.5 mg Ferrous Sulfate (Feosol -) 325 mg PO BID [facility] Last Admin: 06/18/17 10:29 Dose: 325 mg Guaifenesin (Mucinex Dm -) 1 tablet PO BID [facility] Last Admin: 06/18/17 10:30 Dose: Not Given Heparin Sodium (Porcine) (Heparin -) 5,000 unit SQ TID [facility] Last Admin: 06/18/17 06:42 Dose: 5,000 unit Hydralazine HCl (Apresoline -) 100 mg PO TID [facility] Insulin Aspart (Novolog Vial Sliding Scale -) 1 vial SQ ACHS [facility] PRN Reason: Protocol Last Admin: 06/18/17 11:51 Dose: 2 units Insulin Detemir (Levemir Vial) 40 units SQ HS [facility] Last Admin: 06/17/17 22:21 Dose: 40 units Latanoprost (Xalatan 0.005% Eye Drops -) 1 drop OU HS [facility] Last Admin: 06/17/17 22:21 Dose: 1 drop Methylprednisolone Sodium Succinate (Solu-Medrol -) 40 mg IVPB BID [facility] Last Admin: 06/18/17 10:30 Dose: 40 mg Nitroglycerin (Nitro-Dur Patch -) 0.2 mg TD DAILY [facility] Last Admin: 06/17/17 12:21 Dose: 0.2 mg Pantoprazole Sodium (Protonix -) 40 mg PO DAILY [facility] Last Admin: 06/18/17 10:29 Dose: 40 mg Polyethylene Glycol (Miralax (For Daily Use) -) 17 gm PO DAILY [facility] Last Admin: 06/18/17 11:53 Dose: 17 grams Prasugrel (Effient -) 10 mg PO DAILY [facility] Last Admin: 06/18/17 10:29 Dose: 10 mg - Objective Vital Signs: Vital Signs Temperature 97.7 F 06/18/17 10:00 Pulse Rate 77 06/18/17 11:25 Respiratory Rate 20 06/18/17 12:00 Blood Pressure 185/92 06/18/17 11:00 O2 Sat by Pulse Oximetry (%) 98 06/18/17 12:00 Constitutional: Yes: Calm, Obese Eyes: Yes: WNL HENT: Yes: WNL Neck: Yes: WNL Cardiovascular: Yes: Regular Rate and Rhythm, S1, S2 Respiratory: Yes: Wheezes (LESS WHEEZES) Gastrointestinal: Yes: Normal Bowel Sounds, Soft Extremities: Yes: WNL Edema: Yes Labs: CBC, BMP 06/18/17 05:35 06/18/17 05:35 INR, PTT INR 1.00 (0.82-1.09) 06/14/17 06:00 Problem List - Problems (1) Asthma exacerbation Code(s): J45.901 - UNSPECIFIED ASTHMA WITH (ACUTE) EXACERBATION (2) HTN (hypertension) Code(s): I10 - ESSENTIAL (PRIMARY) HYPERTENSION Qualifiers: Hypertension type: unspecified secondary hypertension Qualified Code(s) : I15.9 - Secondary hypertension, unspecified; I15 - Secondary hypertension (3) Anemia Code(s): D64.9 - ANEMIA, UNSPECIFIED (4) IDDM (insulin dependent diabetes mellitus) Code(s): E11.9 - TYPE 2 DIABETES MELLITUS WITHOUT COMPLICATIONS Z79.4 - HUNTER TRAPPER (CURRENT) USE OF INSULIN (5) ASHD (arteriosclerotic heart disease) Code(s): I25.10 - ATHSCL HEART DISEASE OF [place] CORONARY ARTERY W/O ANG PCTRS (6) Sleep apnea, obstructive Code(s): G47.33 - OBSTRUCTIVE SLEEP APNEA (ADULT) (PEDIATRIC) Assessment/Plan IMP CHRONIC PERSISTENT ASTHMA WITH ACUTE EXACERBATION CLINICALLY IMPROVING ASHD S/P STENT ELEVATED TROPONIN S/P MT IDDM KATINA ON CPAP 11cm/h20 HTN ACUTE ON CHRONIC RENAL FAILURE WORSENING PLAN IV STEROIDS INHALED BRONCHODILATTORS NASAL O2 MONITOR PEAK FLOW ROBITUSSIN MONITOR LYTE,RENAL FUNCTION DR BENDER Problem List - Problems (1) Asthma exacerbation Code(s): J45.901 - UNSPECIFIED ASTHMA WITH (ACUTE) EXACERBATION (2) HTN (hypertension) Code(s): I10 - ESSENTIAL (PRIMARY) HYPERTENSION Qualifiers: Hypertension type: unspecified secondary hypertension Qualified Code(s) : I15.9 - Secondary hypertension, unspecified; I15 - Secondary hypertension (3) Anemia Code(s): D64.9 - ANEMIA, UNSPECIFIED (4) IDDM (insulin dependent diabetes mellitus) Code(s): E11.9 - TYPE 2 DIABETES MELLITUS WITHOUT COMPLICATIONS Z79.4 - FPC (CURRENT) USE OF INSULIN (5) ASHD (arteriosclerotic heart disease) Code(s): I25.10 - ATHSCL HEART DISEASE OF [place] CORONARY ARTERY W/O ANG PCTRS (6) Sleep apnea, obstructive Code(s): G47.33 - OBSTRUCTIVE SLEEP APNEA (ADULT) (PEDIATRIC)
[2017-06-18] MEDS: hydrALAZINE HCL 50 MG TABLET (FP) PO SCH ×3 (13:25→19:02)
[2017-06-18] MEDS: NITROGLYCERIN 0.2 MG/HOUR TD PATCH TD SCH (13:57)
--- NOTE | 2017-06-18 16:24 | PN ---
Physical Exam: SUBJECTIVE: Patient seen and examined No acute events overnight. Patient feels better this morning. OBJECTIVE: Vital Signs Period Temp Pulse Resp BP Sys/Shankar Pulse Ox Last 24 Hr 97.7 F-98.3 F 67-78 18-20 158-201/73-95 98-99 GENERAL: The patient is awake, alert, and fully oriented, in no acute distress. HEAD: Normal with no signs of trauma. EYES: Extraocular movements intact, sclera anicteric, conjunctiva clear. No ptosis. ENT: Oropharynx clear without exudates, moist mucous membranes. NECK: Trachea midline, full range of motion, supple. LUNGS: Breath sounds equal, bilateral wheezes throughout, no crackles, no accessory muscle use. HEART: Regular rate and rhythm, S1, S2 without murmur, rub or gallop. ABDOMEN: Soft, nontender, + mild distention, normoactive bowel sounds, no guarding, no rebound, no hepatosplenomegaly, no masses. EXTREMITIES: 2+ radial/dp pulses, warm, well-perfused, no LE edema. NEUROLOGICAL: Cranial nerves II through XII grossly intact. Normal speech, gait appropriate PSYCH: Normal mood, normal affect. SKIN: Warm, dry, normal turgor, no rashes or lesions noted Laboratory Results - last 24 hr 06/17/17 06/17/17 06/17/17 14:30 17:03 22:17 WBC RBC Hgb Hct MCV MCH MCHC RDW Plt Count MPV Neutrophils % Lymphocytes % Monocytes % Eosinophils % Basophils % Sodium Potassium Chloride Carbon Dioxide Anion Gap BUN Creatinine POC Glucometer 210 407 Random Glucose Calcium Phosphorus Magnesium Urine Color Straw Urine Appearance Clear Urine pH 5.0 Ur Specific [place] 1.010 Urine Protein 1+ H Urine Glucose (UA) 3+ H Urine Ketones Negative Urine Blood Negative Urine Nitrite Negative Urine Bilirubin Negative Urine Urobilinogen Negative Ur Leukocyte Esterase Negative Urine RBC None Urine WBC 1 Ur Epithelial Cells Rare Hyaline Casts 4 06/18/17 06/18/17 06/18/17 05:35 05:35 06:39 WBC 15.5 H RBC 4.34 Hgb 11.2 Hct 33.5 MCV 77.2 L MCH 25.8 MCHC 33.4 RDW 12.9 Plt Count 331 MPV 8.9 Neutrophils % 85.8 H Lymphocytes % 8.7 D Monocytes % 5.4 Eosinophils % 0.0 Basophils % 0.1 Sodium 132 L Potassium 4.7 Chloride 98 Carbon Dioxide 22 Anion Gap 12 BUN 91 H Creatinine 3.4 H POC Glucometer 240 Random Glucose 228 H Calcium 8.8 Phosphorus 4.4 Magnesium 2.3 Urine Color Urine Appearance Urine pH Ur Specific [place] Urine Protein Urine Glucose (UA) Urine Ketones Urine Blood Urine Nitrite Urine Bilirubin Urine Urobilinogen Ur Leukocyte Esterase Urine RBC Urine WBC Ur Epithelial Cells Hyaline Casts 06/18/17 11:50 WBC RBC Hgb Hct MCV MCH MCHC RDW Plt Count MPV Neutrophils % Lymphocytes % Monocytes % Eosinophils % Basophils % Sodium Potassium Chloride Carbon Dioxide Anion Gap BUN Creatinine POC Glucometer 184 Random Glucose Calcium Phosphorus Magnesium Urine Color Urine Appearance Urine pH Ur Specific [place] Urine Protein Urine Glucose (UA) Urine Ketones Urine Blood Urine Nitrite Urine Bilirubin Urine Urobilinogen Ur Leukocyte Esterase Urine RBC Urine WBC Ur Epithelial Cells Hyaline Casts Active Medications Generic Name Dose Route Start Last Admin Trade Name Freq PRN Reason Stop Dose Admin Acetaminophen 650 mg 06/13/17 21:29 06/18/17 07:01 Tylenol - PO 650 mg Q4H PRN Administration FEVER OR PAIN Albuterol Sulfate 1 amp 06/14/17 13:02 06/18/17 11:25 Ventolin 0.083% Nebulizer Soln - NEB 1 amp Q4H PRN Administration SHORT OF BREATH/WHEEZING Aspirin 81 mg 06/14/17 10:00 06/18/17 10:29 Asa - PO 81 mg DAILY [facility] Administration Budesonide/Formoterol Fumarate 2 puff 06/14/17 08:00 06/18/17 10:30 Symbicort 160/4.5mcg - IH 2 puff BID [facility] Administration Carvedilol 20 mg 06/19/17 10:00 Coreg Cr - PO DAILY [facility] Clonazepam 0.5 mg 06/13/17 21:42 06/18/17 10:29 Klonopin - PO 0.5 mg QID PRN Administration ANXIETY Ferrous Sulfate 325 mg 06/14/17 10:00 06/18/17 10:29 Feosol - PO 325 mg BID [facility] Administration Guaifenesin 1 tablet 06/16/17 22:00 06/18/17 10:30 Mucinex Dm - PO Not Given BID [facility] Heparin Sodium (Porcine) 5,000 unit 06/13/17 22:00 06/18/17 13:25 Heparin - SQ 5,000 unit TID [facility] Administration Hydralazine HCl 100 mg 06/18/17 08:43 06/18/17 13:25 Apresoline - PO 100 mg TID [facility] Administration Insulin Aspart 1 vial 06/13/17 22:13 06/18/17 11:51 Novolog Vial Sliding Scale - SQ 2 units ACHS [facility] Administration Protocol Insulin Detemir 40 units 06/16/17 22:00 06/17/17 22:21 Levemir Vial SQ 40 units HS [facility] Administration Latanoprost 1 drop 06/16/17 16:11 06/17/17 22:21 Xalatan 0.005% Eye Drops - OU 1 drop HS [facility] Administration Methylprednisolone Sodium Succinate 40 mg 06/17/17 22:00 06/18/17 10:30 Solu-Medrol - IVPB 40 mg BID [facility] Administration Nitroglycerin 0.2 mg 06/14/17 10:00 06/18/17 13:57 Nitro-Dur Patch - TD 0.2 mg DAILY [facility] Administration Pantoprazole Sodium 40 mg 06/14/17 11:45 06/18/17 10:29 Protonix - PO 40 mg DAILY [facility] Administration Polyethylene Glycol 17 gm 06/17/17 10:00 06/18/17 11:53 Miralax (For Daily Use) - PO 17 grams DAILY [facility] Administration Prasugrel 10 mg 06/14/17 10:00 06/18/17 10:29 Effient - PO 10 mg DAILY [facility] Administration ASSESSMENT/PLAN: 62 yo F with PMH of CHF, IDDM, HTN, CAD(S/p CABG x 2 stents), asthma, and anxiety presented to the ED with 1 week history of cough found to have elevated trop of 0.32 and was admitted for observation to R/o ACS #- Cough - Asthma * In acute asthma exacerbation * Continue Home meds Albuterol Neb Q 4H and symbicort 2 IH PO BID * Continue IV 40 mg IVPB Q12H salumedorol * Nasal O2 * Mucinex DM 1 tablet PO BID * Pulmonary following, Dr. Huang * Normal barium swallow evaluation #- Troponin elevation : possibley demand vs renal failure vs ACS * Heart score of 5 * Pt has Hx of HTN , CAD S/P CABG x 2 stents , and IDDM * First Trop 0.32, second 0.31 continue, third trop is 0.30 * Aspirin 162 mg was given in ED. Will continue 81 mg daily * Transfer from Tele to med surg * Cardiology following, Dr. Chen * Continue Effient 10 mg PO daily # Constipation * Miralax daily * Improving #Foamy urine * UA 3+ glucose * Likely due to hyperglycemia # HTN - likely due to steroids * 158/73 * monitor BP * Change coreg 10 mg po daily to 20 mg po daily * Continue Hydralazine 50 mg PO TID * Continue Amlodipine 2.5 mg PO daily * Continue nitroglycerin patch 0.2 mg #- Diastolic CHF , Chronic * stable, in no acute exacerbation, * last Echo in August 2016 shows EF- 51 % * Hold Torsemide, continue Hydralazine HCl [Apresoline -] 50 mg PO TID, #- IDDM, chronic- increased sugars likely due to steroids * FS * RAISS * Increase Levemir to 40 units HS * Diabetic Diet #- Chronic kidney disease, stage 4 * Cr base line around 3 * today Cr 3.4 * Increased Cr likely due to torsemide and steroids * Hold torsemide due to increased Cr * avoid nephrotoxins * Nephrology following, Dr. Carmen # Anxiety , chronic * Continue home meds Clonazepam [KlonoPIN] 0.5 mg PO QID PRN # HLD * Continue crestor 10 mg PO hs #- DVT Proph, medium * Heparin 5000 unit SQ TID #- F/E/N * F: On No fluid * Electrolytes WNL * Diabetic/low sodium diet Visit type - Emergency Visit Emergency Visit: No - New Patient This patient is new to me today: No - Critical Care Critical Care patient: No
--- NOTE | 2017-06-18 17:37 | PN ---
Teaching Attending Note Name of Resident: Keyur Jimenez ATTENDING PHYSICIAN STATEMENT I saw and evaluated the patient. I reviewed the resident's note and discussed the case with the resident. I agree with the resident's findings and plan as documented. SUBJECTIVE: No complaints. OBJECTIVE: Vital Signs Period Temp Pulse Resp BP Sys/Shankar Pulse Ox Last 24 Hr 97.7 F-98.3 F 67-78 18-20 158-201/73-95 98-99 HEART: S1S2, RRR LUNGS: Bilateral rhonchi and wheezes ABDOMEN: Obese, soft, non-tender, non-distended, normal BS EXTREMITIES: No edema ASSESSMENT AND PLAN: This is a 62-year-old woman with a history of chronic diastolic heart failure, type 2 DM, HTN, hyperlipidemia, CAD, CABG, asthma, KATINA, anxiety, pulm HTN, PAF who presented to the ER with a worsening cough. 1. Elevated troponin in a patient with SOB and history of CAD - Troponin 0.32 -> 0.31 -> 0.31 -> 0.30 - No evidence of acute coronary syndrome 2. Cough - Continue to treat asthma exacerbation - On Protonix for possible GERD - No evidence of dysphagia, aspiration 3. Acute exacerbation of chronic persistent asthma - Continue SoluMedrol, Symbicort, albuterol as needed 4. CAD, history of stents - Continue aspirin, Coreg, Nitropatch, Crestor, Effient 5. Hypertensive urgency - Improved with Hydralazine IV 6. Hypertension, uncontrolled - Continue Coreg, Hydralazine - doses being adjusted to attain goal BP 7. Hyperlipidemia - Continue Crestor 8. Chronic diastolic heart failure - Stable 9. Acute kidney injury on stage 4 CKD - Demadex held - BUN increasing secondary to steroids - Monitor BUN, creatinine 10. Type 2 DM - Continue Levemir, Novolog sliding scale 11. Anxiety - Continue Klonopin as needed 12. KATINA - Continue CPAP at night 13. Paroxysmal atrial fibrillation - Remains in SR 14. Pulmonary HTN 15. Morbid obesity with BMI 40.4
[2017-06-18] MEDS: LATANOPROST 0.005% OPHTH SOLN 2.5ML BOTTLE OU SCH (21:51)
[2017-06-18] MEDS: INSULIN DETEMIR 100 UNITS/ML MDV SQ SCH (21:53)
[2017-06-19 06:22] LABS: BASOPHIL 0.1 % (0-2.0); MCHC 33.6 g/dl (32.0-36.0); MEAN CELL VOLUME 77.5 fl (80-96); NEUTROPHILS 84.8 % (42.8-82.8); PLATELET COUNT 325 K/MM3 (134-434); RDW 13.1 % (11.6-15.6); WHITE BLOOD COUNT 10.7 K/mm3 (4.0-10.0)
[2017-06-19] MEDS ORDERED: INSULIN (NOVOLOG) ASPART 100 UNITS/ML 10ML VIAL ONE (06:23)
[2017-06-19] MEDS: INSULIN SLIDING SCALE (NOVOLOG) 1 VIAL SQ SCH ×4 (06:46→21:20)
[2017-06-19] MEDS: hydrALAZINE HCL 50 MG TABLET (FP) PO SCH ×3 (06:46→20:15)
[2017-06-19] MEDS: HEPARIN NA (PORCINE) 5,000 UNITS/ML 1ML VIAL SQ SCH ×3 (06:47→21:21)
[2017-06-19 06:56] LABS: ANION GAP 12 (8-16); CALCIUM 8.8 mg/dL (8.5-10.1); CO2 23 mmol/L (21-32); CREATININE 3.6 mg/dL (0.55-1.02); MAGNESIUM 2.5 mg/dL (1.8-2.4); PHOSPHOROUS 4.9 mg/dL (2.5-4.9)
[2017-06-19 07:02] LABS: GLUCOSE,RANDOM 301 mg/dL (74-106)
[2017-06-19] MEDS ORDERED: PT OWN MED DRAWER 7, Y5N ONE ×5 (08:50→21:40)
--- NOTE | 2017-06-19 10:03 | PN ---
Progress Note, Physician History of Present Illness: No complaints this AM BP remains elevated No headache Breathing continues to improve - Current Medication List Current Medications: Active Medications Acetaminophen (Tylenol -) 650 mg PO Q4H PRN PRN Reason: FEVER OR PAIN Last Admin: 06/18/17 07:01 Dose: 650 mg Albuterol Sulfate (Ventolin 0.083% Nebulizer Soln -) 1 amp NEB Q4H PRN PRN Reason: SHORT OF BREATH/WHEEZING Last Admin: 06/18/17 21:27 Dose: 1 amp Aspirin (Asa -) 81 mg PO DAILY [facility] Last Admin: 06/18/17 10:29 Dose: 81 mg Budesonide/Formoterol Fumarate (Symbicort 160/4.5mcg -) 2 puff IH BID [facility] Last Admin: 06/18/17 21:49 Dose: 2 puff Carvedilol (Coreg Cr -) 20 mg PO DAILY [facility] Clonazepam (Klonopin -) 0.5 mg PO QID PRN PRN Reason: ANXIETY Last Admin: 06/18/17 21:55 Dose: 0.5 mg Ferrous Sulfate (Feosol -) 325 mg PO BID [facility] Last Admin: 06/18/17 21:50 Dose: 325 mg Guaifenesin (Mucinex Dm -) 1 tablet PO BID [facility] Last Admin: 06/18/17 21:50 Dose: Not Given Heparin Sodium (Porcine) (Heparin -) 5,000 unit SQ TID [facility] Last Admin: 06/19/17 06:47 Dose: 5,000 unit Hydralazine HCl (Apresoline -) 100 mg PO TID [facility] Last Admin: 06/19/17 06:46 Dose: 100 mg Insulin Aspart (Novolog Vial Sliding Scale -) 1 vial SQ ACHS [facility] PRN Reason: Protocol Last Admin: 06/19/17 06:46 Dose: 8 units Insulin Detemir (Levemir Vial) 40 units SQ HS [facility] Last Admin: 06/18/17 21:53 Dose: 40 units Latanoprost (Xalatan 0.005% Eye Drops -) 1 drop OU HS [facility] Last Admin: 06/18/17 21:51 Dose: 1 drop Methylprednisolone Sodium Succinate (Solu-Medrol -) 40 mg IVPB BID [facility] Last Admin: 06/18/17 21:51 Dose: 40 mg Nitroglycerin (Nitro-Dur Patch -) 0.2 mg TD DAILY [facility] Last Admin: 06/18/17 13:57 Dose: 0.2 mg Pantoprazole Sodium (Protonix -) 40 mg PO DAILY [facility] Last Admin: 06/18/17 10:29 Dose: 40 mg Polyethylene Glycol (Miralax (For Daily Use) -) 17 gm PO DAILY [facility] Last Admin: 06/18/17 11:53 Dose: 17 grams Prasugrel (Effient -) 10 mg PO DAILY [facility] Last Admin: 06/18/17 10:29 Dose: 10 mg - Objective Vital Signs: Vital Signs Temperature 98.2 F 06/19/17 05:00 Pulse Rate 86 06/19/17 05:00 Respiratory Rate 18 06/19/17 05:00 Blood Pressure 205/87 06/19/17 05:00 O2 Sat by Pulse Oximetry (%) 99 06/18/17 21:00 Constitutional: Yes: Well Nourished, No Distress, Calm Eyes: Yes: WNL HENT: Yes: WNL Neck: Yes: WNL Cardiovascular: Yes: Regular Rate and Rhythm Respiratory: Yes: Regular, CTA Bilaterally Gastrointestinal: Yes: Normal Bowel Sounds Extremities: Yes: WNL Edema: No Integumentary: Yes: WNL Neurological: Yes: WNL, Alert, Oriented Labs: CBC, BMP 06/19/17 05:45 06/19/17 05:45 INR, PTT INR 1.00 (0.82-1.09) 06/14/17 06:00 Assessment/Plan 61 year old f with known CAD--h/o NSTEMI '13 s/p LAD KAREN PCI 09/2013, and prox LCx KAREN PCI 2014, HTN, lone afib/PSVT, MR, pHTN, KATINA, NAFLD, HPL, CKD, anemia, IDDM who presents to the ED with shortness of breath. chronic diastolic CHF (acute on chronic HFPEF) - hx of "flash" pulmonary edema in the past--felt to be a combo of diast dysf and ischemic heart disease. Dry weight 247-250 lbs. - home dry wt running 241-244 for a while now, wt 238 here on admit - bnp ranges 1600 - 3000s (i.e. the latter when decompensated). currently 1700 - Pulm pressure and wedge nitro-sensitive in cardiac cath rn so cont nitro as well ( can only tolerate low dose patch due to HAs) - cont home po torsemide, monitor for increasing vol with iv steroids, stable so far 06/19: Creat up to 3.6. Weight down to 241. Continue Torsemide at current dose. Monitor renal function. bronchospasm/asthma, acute exacerbation: -has had increase severity of sx's over past few months, now admitted for same -will try to decr coreg CR dose to 10mg, ? exacerbating bronchospasm -tx per pmd/pulm CAD: -s/p prox LCx KAREN PCI 2014 for crescendo angina, prior mLAD stent patent, prior PTCA'ed D2 [place], residual 70-80% distal RCA disease unchanged from prior cath 2012 --left for medical rx -trop 0.3 x4 here--no c/w ACS, due to hi LV filling pressures -ecg non-ischemic -sx's not consistent with ACS--no further w/u indicated - Continue home DAPT with ASA and Effient. cont crestor, coreg, NTG patch. - No ACEI given fluctuating renal function. HTN: - intolerant of multiple BP meds before--diovan, micardis, verap, norvasc, nifedipine, nisoldipine, catapres patch - home regimen is coreg CR 20, hydral 25 TID, nitro patch 0.2mg (BUCKNER with higher doses) -here have decreased coreg to 10 in case was worsening asthma but bp remains elevated. Have been increasing hydralazine for bp control, now up to 75 tid with bp still high so will increase to 100 tid today. - bp's tend to run higher in hosp, especially with steroids--will likely need lower hydral dose at home (takes it prn at home based on bp's b/c often too low and drops with sx's if takes hydral dose) -Limitied options given intolerances as outlined above. Likely related to steroids. Continue Hydralazine at 100mg TID -Will try Minoxidil 5mg daily (On beta isrrael and loop diuretic) HPL: - tolerating crestor 10 mg, zetia Myalgias w Atorva/Simva and high dose crestor - LDL >200 at baseline--130s here; same meds - declined PCSK-9 inhibitor trial KATINA / Mod PHTN - compliant with CPAP at home. - diastolic dysfunction likely also contributing to pHTN. ARF / CKD: - baseline creat runs 2.5-2.6 - higher here, suspect intravasc vol depletion (? insensible losses, decr po intake due to malaise/cough) Remote PAF and PSVT - lone AF episode in setting of dobutamine, no recurrence. No AC thought to be indicated - same plan
[2017-06-19] MEDS: PANTOPRAZOLE 40 MG TABLET (FP) PO SCH (10:10)
[2017-06-19] MEDS: FERROUS SO4 325 MG TABLET (FP) PO SCH ×2 (10:10→21:17)
[2017-06-19] MEDS: methylPREDNISolone NA SUCC 40 MG/1 ML VIAL IVPB SCH (10:10)
[2017-06-19] MEDS: ASPIRIN 81 MG CHEWABLE TABLETS PO SCH (10:10)
[2017-06-19] MEDS: guaiFENesin/D-METHORPHAN HB 1 EACH TAB.ER.12H PO SCH ×2 (10:11→21:21)
[2017-06-19] MEDS: BUDESONIDE/FORMETEROL FUMARATE 160/4.5 mcg INHALER IH SCH ×2 (10:11→21:18)
[2017-06-19] MEDS: PRASUGREL HCL 10 MG TAB PO SCH (10:11)
[2017-06-19] MEDS: CARVEDILOL PHOSPHATE CR 20 MG CAPSULE (FP) PO SCH (10:11)
[2017-06-19] MEDS ORDERED: methylPREDNISolone NA SUCC 40 MG/1 ML VIAL IVPB SCH (10:47)
--- NOTE | 2017-06-19 10:50 | PN ---
Progress Note (short form) - Note Progress Note: states her breathing has improved. continues to have cough but no longer productive. was able to sleep through the night which was the first. states she does have BUCKNER which correlate when her BP are high. states her BP and sugars are very controlled at home. denies CP, palpitations, SOB, fever, chills, N/V/C/D Current Medications Generic Name Dose Route Start Last Admin Trade Name Freq PRN Reason Stop Dose Admin Acetaminophen 650 mg 06/13/17 21:29 06/18/17 07:01 Tylenol - PO 650 mg Q4H PRN Administration FEVER OR PAIN Albuterol Sulfate 1 amp 06/14/17 13:02 06/18/17 21:27 Ventolin 0.083% Nebulizer Soln - NEB 1 amp Q4H PRN Administration SHORT OF BREATH/WHEEZING Aspirin 81 mg 06/14/17 10:00 06/19/17 10:10 Asa - PO 81 mg DAILY [facility] Administration Budesonide/Formoterol Fumarate 2 puff 06/14/17 08:00 06/19/17 10:11 Symbicort 160/4.5mcg - IH 2 puff BID [facility] Administration Carvedilol 20 mg 06/19/17 10:00 06/19/17 10:11 Coreg Cr - PO 20 mg DAILY [facility] Administration Clonazepam 0.5 mg 06/13/17 21:42 06/18/17 21:55 Klonopin - PO 0.5 mg QID PRN Administration ANXIETY Ferrous Sulfate 325 mg 06/14/17 10:00 06/19/17 10:10 Feosol - PO 325 mg BID [facility] Administration Guaifenesin 1 tablet 06/16/17 22:00 06/19/17 10:11 Mucinex Dm - PO Not Given BID [facility] Heparin Sodium (Porcine) 5,000 unit 06/13/17 22:00 06/19/17 06:47 Heparin - SQ 5,000 unit TID [facility] Administration Hydralazine HCl 100 mg 06/18/17 18:30 06/19/17 06:46 Apresoline - PO 100 mg TID [facility] Administration Insulin Aspart 1 vial 06/13/17 22:13 06/19/17 06:46 Novolog Vial Sliding Scale - SQ 8 units ACHS [facility] Administration Protocol Insulin Detemir 40 units 06/16/17 22:00 06/18/17 21:53 Levemir Vial SQ 40 units HS [facility] Administration Latanoprost 1 drop 06/16/17 16:11 06/18/17 21:51 Xalatan 0.005% Eye Drops - OU 1 drop HS [facility] Administration Methylprednisolone Sodium Succinate 40 mg 06/17/17 22:00 06/19/17 10:10 Solu-Medrol - IVPB 40 mg BID [facility] Administration Minoxidil 5 mg 06/19/17 10:15 Lonitin - PO DAILY [facility] Nitroglycerin 0.2 mg 06/14/17 10:00 06/18/17 13:57 Nitro-Dur Patch - TD 0.2 mg DAILY [facility] Administration Pantoprazole Sodium 40 mg 06/14/17 11:45 06/19/17 10:10 Protonix - PO 40 mg DAILY [facility] Administration Polyethylene Glycol 17 gm 06/17/17 10:00 06/18/17 11:53 Miralax (For Daily Use) - PO 17 grams DAILY [facility] Administration Prasugrel 10 mg 06/14/17 10:00 06/19/17 10:11 Effient - PO 10 mg DAILY [facility] Administration Last Vital Signs Temp Pulse Resp BP Pulse Ox 98.2 F 86 18 205/87 99 06/19/17 05:00 06/19/17 05:00 06/19/17 05:00 06/19/17 05:00 06/18/17 21:00 General NAD CV S1 S2 RRR no murmur/rub/gallop Lungs CTA B/L no wheezing/rales/rhonchi Abomen soft NT/NT obese Extremities trace non pitting edema CBCD WBC 10.7 K/mm3 (4.0-10.0) H D 06/19/17 05:45 RBC 4.54 M/mm3 (3.60-5.2) 06/19/17 05:45 Hgb 11.8 GM/dL (10.7-15.3) 06/19/17 05:45 Hct 35.2 % (32.4-45.2) 06/19/17 05:45 MCV 77.5 fl (80-96) L 06/19/17 05:45 MCHC 33.6 g/dl (32.0-36.0) 06/19/17 05:45 RDW 13.1 % (11.6-15.6) 06/19/17 05:45 Plt Count 325 K/MM3 (134-434) 06/19/17 05:45 MPV 8.0 fl (7.5-11.1) D 06/19/17 05:45 CMP Sodium 132 mmol/L (136-145) L 06/19/17 05:45 Potassium 4.8 mmol/L (3.5-5.1) 06/19/17 05:45 Chloride 97 mmol/L (98-107) L 06/19/17 05:45 Carbon Dioxide 23 mmol/L (21-32) 06/19/17 05:45 Anion Gap 12 (8-16) 06/19/17 05:45 BUN 98 mg/dL (7-18) H 06/19/17 05:45 Creatinine 3.6 mg/dL (0.55-1.02) H 06/19/17 05:45 Creat Clearance w eGFR 13.69 (>60) 06/16/17 05:48 Calcium 8.8 mg/dL (8.5-10.1) 06/19/17 05:45 Total Bilirubin 0.1 mg/dL (0.2-1.0) L D 06/16/17 05:48 AST 17 U/L (15-37) 06/16/17 05:48 ALT 17 U/L (12-78) 06/16/17 05:48 Alkaline Phosphatase 118 U/L (45-117) H 06/16/17 05:48 Total Protein 7.6 g/dl (6.4-8.2) 06/16/17 05:48 Albumin 3.3 g/dl (3.4-5.0) L 06/16/17 05:48 Assessment/PLan: 62-year-old woman with a history of chronic diastolic heart failure, type 2 DM, HTN, hyperlipidemia, CAD, CABG, asthma, KATINA, anxiety, pulm HTN, PAF who presented to the ER with a worsening cough. 1. Elevated troponin in a patient with SOB and history of CAD- peaked at 0.32 and trending down. no signs of ACS. Continue home DAPT with ASA and Effient. cont crestor, coreg, NTG patch 2. Acute asthma exacerbation- possible GERD vs anxiety?. will titrate down steroids as can be contributing factor to hyperglycemia and HTN. decrease to 20mg BID. cont protonix. nebs prn. saturating well on RA. will attempt to decrease coreg when BP is more controlled. 3.HTN Urgency- uncontrolled. can be contributed to steroids vs white coat syndrome. as per pt BP at home are 110's. and often does not take her hydralazine due to it. started on minoxidil. toresimide stopped due to uptrend in Cr. 4. Acute on CKD stage IV- possible medication induced. hold torsemide. titrate down steroids. monitor 5. DM- uncontrolled. states she takes 20 units HS. now on 40 units. switch diet to also be diabetic. will hold on increasing levemir although will order glucerna. iss. 6. CAD, history of stents- Continue aspirin, Coreg, Nitropatch, Crestor, Effient 7. Hyperlipidemia- Continue Crestor 8. Chronic diastolic heart failure- Stable 9. Anxiety- Continue Klonopin as needed 10. KATINA- Continue CPAP at night 11. Paroxysmal atrial fibrillation- Remains in SR 12. Pulmonary HTN 13. Morbid obesity with BMI 40.4 Visit type - Emergency Visit Emergency Visit: Yes ED Registration Date: 06/15/17 Care time: The patient presented to the Emergency Department on the above date and was hospitalized for further evaluation of their emergent condition. - New Patient This patient is new to me today: Yes Date on this admission: 06/19/17 - Critical Care Critical Care patient: No - Discharge Referral Referred to [facility] Med P.C.: No
[2017-06-19] MEDS: ALBUTEROL SO4 0.083% IH SOL 2.5 MG/3 ML VIAL.NEB. NEB PRN (11:26)
[2017-06-19] MEDS: POLYETHYLENE GLYCOL 3350 119 GM BTL PO SCH (12:11)
[2017-06-19] MEDS: clonazePAM 0.5 MG TABLET PO PRN ×2 (12:23→21:36)
--- NOTE | 2017-06-19 12:28 | PN ---
Progress Note, Physician Chief Complaint: 62 year old woman with PMhx of COPD, Bronchial asthma, Insulin Dependent Diabetes mellitus, Hypertension, Myocardial Infarction, Chronic kidney Disease Stage 4 presented with dyspnea and admitted for COPD exacerbation. - Current Medication List Current Medications: Active Medications Acetaminophen (Tylenol -) 650 mg PO Q4H PRN PRN Reason: FEVER OR PAIN Last Admin: 06/18/17 07:01 Dose: 650 mg Albuterol Sulfate (Ventolin 0.083% Nebulizer Soln -) 1 amp NEB Q4H PRN PRN Reason: SHORT OF BREATH/WHEEZING Last Admin: 06/19/17 11:26 Dose: 1 amp Aspirin (Asa -) 81 mg PO DAILY [facility] Last Admin: 06/19/17 10:10 Dose: 81 mg Budesonide/Formoterol Fumarate (Symbicort 160/4.5mcg -) 2 puff IH BID [facility] Last Admin: 06/19/17 10:11 Dose: 2 puff Carvedilol (Coreg Cr -) 20 mg PO DAILY [facility] Last Admin: 06/19/17 10:11 Dose: 20 mg Clonazepam (Klonopin -) 0.5 mg PO QID PRN PRN Reason: ANXIETY Last Admin: 06/18/17 21:55 Dose: 0.5 mg Ferrous Sulfate (Feosol -) 325 mg PO BID [facility] Last Admin: 06/19/17 10:10 Dose: 325 mg Furosemide (Lasix Injection -) 80 mg IVPB BID@0600,1400 [facility] Guaifenesin (Mucinex Dm -) 1 tablet PO BID [facility] Last Admin: 06/19/17 10:11 Dose: Not Given Heparin Sodium (Porcine) (Heparin -) 5,000 unit SQ TID [facility] Last Admin: 06/19/17 06:47 Dose: 5,000 unit Hydralazine HCl (Apresoline -) 100 mg PO TID [facility] Last Admin: 06/19/17 06:46 Dose: 100 mg Insulin Aspart (Novolog Vial Sliding Scale -) 1 vial SQ ACHS [facility] PRN Reason: Protocol Last Admin: 06/19/17 12:10 Dose: 8 units Insulin Detemir (Levemir Vial) 40 units SQ [facility] Last Admin: 06/18/17 21:53 Dose: 40 units Latanoprost (Xalatan 0.005% Eye Drops -) 1 drop OU HS [facility] Last Admin: 06/18/17 21:51 Dose: 1 drop Methylprednisolone Sodium Succinate (Solu-Medrol -) 20 mg IVPB BID [facility] Minoxidil (Lonitin -) 5 mg PO DAILY [facility] Nitroglycerin (Nitro-Dur Patch -) 0.2 mg TD DAILY [facility] Last Admin: 06/18/17 13:57 Dose: 0.2 mg Pantoprazole Sodium (Protonix -) 40 mg PO DAILY [facility] Last Admin: 06/19/17 10:10 Dose: 40 mg Polyethylene Glycol (Miralax (For Daily Use) -) 17 gm PO DAILY [facility] Last Admin: 06/19/17 12:11 Dose: 17 grams Prasugrel (Effient -) 10 mg PO DAILY [facility] Last Admin: 06/19/17 10:11 Dose: 10 mg - Objective Vital Signs: Vital Signs Temperature 98.0 F 06/19/17 09:00 Pulse Rate 88 06/19/17 09:00 Respiratory Rate 18 06/19/17 09:00 Blood Pressure 186/85 06/19/17 09:00 O2 Sat by Pulse Oximetry (%) 98 06/19/17 09:00 Constitutional: Yes: Well Nourished, Mild Distress Eyes: Yes: Conjunctiva Clear HENT: Yes: Normocephalic Neck: Yes: Supple Cardiovascular: Yes: Regular Rate and Rhythm, S1, S2 Respiratory: Yes: CTA Bilaterally Gastrointestinal: Yes: Normal Bowel Sounds, Abdomen, Obese Genitourinary: No: CVA Tenderness - Left, CVA Tenderness - Right Labs: CBC, BMP 06/19/17 05:45 06/19/17 05:45 INR, PTT INR 1.00 (0.82-1.09) 06/14/17 06:00 Problem List - Problems (1) ASHD (arteriosclerotic heart disease) Code(s): I25.10 - ATHSCL HEART DISEASE OF [place] CORONARY ARTERY W/O ANG PCTRS (2) Asthma exacerbation Code(s): J45.901 - UNSPECIFIED ASTHMA WITH (ACUTE) EXACERBATION (3) HTN (hypertension) Code(s): I10 - ESSENTIAL (PRIMARY) HYPERTENSION Qualifiers: Hypertension type: unspecified secondary hypertension Qualified Code(s) : I15.9 - Secondary hypertension, unspecified; I15 - Secondary hypertension (4) Anemia Code(s): D64.9 - ANEMIA, UNSPECIFIED (5) CHF (congestive heart failure) Code(s): I50.9 - HEART FAILURE, UNSPECIFIED Qualifiers: Congestive heart failure type: unspecified congestive heart failure type Congestive heart failure chronicity: acute on chronic Qualified Code(s): I50.9 - Heart failure, unspecified (6) IDDM (insulin dependent diabetes mellitus) Code(s): E11.9 - TYPE 2 DIABETES MELLITUS WITHOUT COMPLICATIONS Z79.4 - DIVORCE MEDIATOR (CURRENT) USE OF INSULIN (7) Acute kidney failure Code(s): N17.9 - ACUTE KIDNEY FAILURE, UNSPECIFIED Assessment/Plan This is a 62 y/o female admitted with Acute exacerbation of COPD/ Br. asthma. There is no overt evidence of an active Respiratory infection. 2. The patient has underlying Chronic Kidney Disease Stage 4 , from Chronic Microvascular Renal disease ( HTN/ DM2/ Atherosclerosis). 3. Hypertension, Suboptimally controlled. Started on Loniten. Will add Lasix to the regimen. 4. Anemia, of Chronic Kidney Disease. Suggest: As outlined above. IV Lasix along Minoxidil. Will monitor the Renal functions with you. 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 Will try to defer dialysis until possibly the very last day. Thanks again Tamara Garcia MD
--- NOTE | 2017-06-19 12:32 | PN ---
Progress Note (short form) - Note Progress Note: OOB to chair. Awilda as her renal function is worsening and she may require HD. Noted elevated BP. Meds ordered by Renal. Denies CP or SOB. Intake & Output 06/16/17 06/17/17 06/18/17 06/19/17 23:59 23:59 23:59 23:59 Intake Total 830 210 620 250 Output Total 600 Balance 830 -390 620 250 Weight 241 lb 6 oz 241 lb 8 oz 243 lb 241 lb 4 oz Last Vital Signs Temp Pulse Resp BP Pulse Ox 98.0 F 88 18 186/85 98 06/19/17 09:00 06/19/17 09:00 06/19/17 09:00 06/19/17 09:00 06/19/17 09:00 Active Medications Acetaminophen (Tylenol -) 650 mg PO Q4H PRN PRN Reason: FEVER OR PAIN Last Admin: 06/18/17 07:01 Dose: 650 mg Albuterol Sulfate (Ventolin 0.083% Nebulizer Soln -) 1 amp NEB Q4H PRN PRN Reason: SHORT OF BREATH/WHEEZING Last Admin: 06/19/17 11:26 Dose: 1 amp Aspirin (Asa -) 81 mg PO DAILY [facility] Last Admin: 06/19/17 10:10 Dose: 81 mg Budesonide/Formoterol Fumarate (Symbicort 160/4.5mcg -) 2 puff IH BID [facility] Last Admin: 06/19/17 10:11 Dose: 2 puff Carvedilol (Coreg Cr -) 20 mg PO DAILY [facility] Last Admin: 06/19/17 10:11 Dose: 20 mg Clonazepam (Klonopin -) 0.5 mg PO QID PRN PRN Reason: ANXIETY Last Admin: 06/19/17 12:23 Dose: 0.5 mg Ferrous Sulfate (Feosol -) 325 mg PO BID [facility] Last Admin: 06/19/17 10:10 Dose: 325 mg Furosemide (Lasix Injection -) 80 mg IVPB BID@0600,1400 [facility] Guaifenesin (Mucinex Dm -) 1 tablet PO BID [facility] Last Admin: 06/19/17 10:11 Dose: Not Given Heparin Sodium (Porcine) (Heparin -) 5,000 unit SQ TID [facility] Last Admin: 06/19/17 06:47 Dose: 5,000 unit Hydralazine HCl (Apresoline -) 100 mg PO TID [facility] Last Admin: 06/19/17 06:46 Dose: 100 mg Insulin Aspart (Novolog Vial Sliding Scale -) 1 vial SQ ACHS [facility] PRN Reason: Protocol Last Admin: 06/19/17 12:10 Dose: 8 units Insulin Detemir (Levemir Vial) 40 units SQ HS [facility] Last Admin: 06/18/17 21:53 Dose: 40 units Latanoprost (Xalatan 0.005% Eye Drops -) 1 drop OU HS [facility] Last Admin: 06/18/17 21:51 Dose: 1 drop Methylprednisolone Sodium Succinate (Solu-Medrol -) 20 mg IVPB BID [facility] Minoxidil (Lonitin -) 5 mg PO DAILY [facility] Nitroglycerin (Nitro-Dur Patch -) 0.2 mg TD DAILY [facility] Last Admin: 06/18/17 13:57 Dose: 0.2 mg Pantoprazole Sodium (Protonix -) 40 mg PO DAILY [facility] Last Admin: 06/19/17 10:10 Dose: 40 mg Polyethylene Glycol (Miralax (For Daily Use) -) 17 gm PO DAILY [facility] Last Admin: 06/19/17 12:11 Dose: 17 grams Prasugrel (Effient -) 10 mg PO DAILY [facility] Last Admin: 06/19/17 10:11 Dose: 10 mg Constitutional: Yes: Weeping, Obese, NAD Eyes: Yes: WNL HENT: Yes: WNL Neck: Yes: WNL Cardiovascular: Yes: Regular Rate and Rhythm, S1, S2 Respiratory: Yes: Few scattered rhonchi Gastrointestinal: Yes: Normal Bowel Sounds, Soft Extremities: Yes: WNL Edema: Yes Labs: Laboratory Results - last 24 hr 06/18/17 06/18/17 06/19/17 16:15 21:26 05:45 WBC RBC Hgb Hct MCV MCH MCHC RDW Plt Count MPV Neutrophils % Lymphocytes % Monocytes % Eosinophils % Basophils % Sodium 132 L Potassium 4.8 Chloride 97 L Carbon Dioxide 23 Anion Gap 12 BUN 98 H Creatinine 3.6 H POC Glucometer 368 328 Random Glucose 301 H* D Calcium 8.8 Phosphorus 4.9 Magnesium 2.5 H 06/19/17 06/19/17 06/19/17 05:45 06:10 11:22 WBC 10.7 H D RBC 4.54 Hgb 11.8 Hct 35.2 MCV 77.5 L MCH 26.0 MCHC 33.6 RDW 13.1 Plt Count 325 MPV 8.0 D Neutrophils % 84.8 H Lymphocytes % 9.6 Monocytes % 5.5 Eosinophils % 0.0 Basophils % 0.1 Sodium Potassium Chloride Carbon Dioxide Anion Gap BUN Creatinine POC Glucometer 306 314 Random Glucose Calcium Phosphorus Magnesium Problem List - Problems (1) Asthma exacerbation Code(s): J45.901 - UNSPECIFIED ASTHMA WITH (ACUTE) EXACERBATION (2) HTN (hypertension) Code(s): I10 - ESSENTIAL (PRIMARY) HYPERTENSION Qualifiers: Hypertension type: unspecified secondary hypertension Qualified Code(s) : I15.9 - Secondary hypertension, unspecified; I15 - Secondary hypertension (3) Anemia Code(s): D64.9 - ANEMIA, UNSPECIFIED (4) IDDM (insulin dependent diabetes mellitus) Code(s): E11.9 - TYPE 2 DIABETES MELLITUS WITHOUT COMPLICATIONS Z79.4 - MECHANICAL ENGINEERING TECHNOLOGIST (CURRENT) USE OF INSULIN (5) ASHD (arteriosclerotic heart disease) Code(s): I25.10 - ATHSCL HEART DISEASE OF [place] CORONARY ARTERY W/O ANG PCTRS (6) Sleep apnea, obstructive Code(s): G47.33 - OBSTRUCTIVE SLEEP APNEA (ADULT) (PEDIATRIC) Assessment/Plan IMP CHRONIC PERSISTENT ASTHMA WITH ACUTE EXACERBATION CLINICALLY IMPROVING ASHD S/P STENT ELEVATED TROPONIN S/P W[place] IDDM KATINA ON CPAP 11cm/h20 HTN ACUTE ON CHRONIC RENAL FAILURE WORSENING PLAN CHANGE TO PREDNISONE INHALED BRONCHODILATTORS NASAL O2 MONITOR PEAK FLOW ROBITUSSIN MONITOR LYTE,RENAL FUNCTION BP CONTROL DR FOOTE
[2017-06-19] MEDS: NITROGLYCERIN 0.2 MG/HOUR TD PATCH TD SCH (13:37)
[2017-06-19] MEDS: MINOXIDIL 2.5 MG TABLET PO SCH (13:37)
[2017-06-19] MEDS: predniSONE 10 MG TABLET (UD) PO SCH (13:37)
[2017-06-19] MEDS: FUROSEMIDE 100 MG/10 ML INJECTABLE VIAL IVPB SCH (13:38)
[2017-06-19] MEDS: LATANOPROST 0.005% OPHTH SOLN 2.5ML BOTTLE OU SCH (21:17)
[2017-06-19] MEDS: ACETAMINOPHEN 325 MG TABLET (FP) PO PRN (21:18)
[2017-06-19] MEDS: INSULIN DETEMIR 100 UNITS/ML MDV SQ SCH (21:20)
[2017-06-20] MEDS: hydrALAZINE HCL 50 MG TABLET (FP) PO SCH ×3 (05:53→21:17)
[2017-06-20] MEDS: HEPARIN NA (PORCINE) 5,000 UNITS/ML 1ML VIAL SQ SCH ×3 (05:54→21:17)
[2017-06-20] MEDS: INSULIN SLIDING SCALE (NOVOLOG) 1 VIAL SQ SCH ×4 (06:00→21:18)
[2017-06-20] MEDS: FUROSEMIDE 100 MG/10 ML INJECTABLE VIAL IVPB SCH ×2 (06:01→17:33)
[2017-06-20 07:52] LABS: ANION GAP 11 (8-16); BILIRUBIN,TOTAL 0.2 mg/dL (0.2-1.0); CALCIUM 8.9 mg/dL (8.5-10.1); CO2 23 mmol/L (21-32); CREATININE 3.8 mg/dL (0.55-1.02); GLUCOSE,RANDOM 205 mg/dL (74-106); SGOT/AST 20 U/L (15-37); SGPT/ALT 25 U/L (12-78); TOT PROT 6.5 g/dl (6.4-8.2)
[2017-06-20 07:53] LABS: ALK PHOS 80 U/L (45-117)
[2017-06-20] MEDS ORDERED: PT OWN MED DRAWER 7, Y5N ONE ×3 (09:44→21:01)
[2017-06-20] MEDS: predniSONE 10 MG TABLET (UD) PO SCH (09:47)
[2017-06-20] MEDS: ASPIRIN 81 MG CHEWABLE TABLETS PO SCH (09:47)
[2017-06-20] MEDS: CARVEDILOL PHOSPHATE CR 20 MG CAPSULE (FP) PO SCH (09:47)
[2017-06-20] MEDS: PANTOPRAZOLE 40 MG TABLET (FP) PO SCH (09:48)
[2017-06-20] MEDS: guaiFENesin/D-METHORPHAN HB 1 EACH TAB.ER.12H PO SCH ×2 (09:48→21:18)
[2017-06-20] MEDS: BUDESONIDE/FORMETEROL FUMARATE 160/4.5 mcg INHALER IH SCH ×2 (09:48→21:16)
[2017-06-20] MEDS: POLYETHYLENE GLYCOL 3350 119 GM BTL PO SCH (09:49)
[2017-06-20] MEDS: PRASUGREL HCL 10 MG TAB PO SCH (09:50)
[2017-06-20] MEDS: FERROUS SO4 325 MG TABLET (FP) PO SCH ×2 (09:50→21:17)
[2017-06-20] MEDS: MINOXIDIL 2.5 MG TABLET PO SCH (09:50)
--- NOTE | 2017-06-20 10:24 | PN ---
Progress Note (short form) - Note Progress Note: cough continues to improve. denies SOB, CP, palpitations, SOB, fever, chills, N/ V/C/D Current Medications Generic Name Dose Route Start Last Admin Trade Name Freq PRN Reason Stop Dose Admin Acetaminophen 650 mg 06/13/17 21:29 06/19/17 21:18 Tylenol - PO 650 mg Q4H PRN Administration FEVER OR PAIN Albuterol Sulfate 1 amp 06/14/17 13:02 06/19/17 11:26 Ventolin 0.083% Nebulizer Soln - NEB 1 amp Q4H PRN Administration SHORT OF BREATH/WHEEZING Aspirin 81 mg 06/14/17 10:00 06/20/17 09:47 Asa - PO 81 mg DAILY LLAO Administration Budesonide/Formoterol Fumarate 2 puff 06/14/17 08:00 06/20/17 09:48 Symbicort 160/4.5mcg - IH 2 puff BID LALO Administration Carvedilol 20 mg 06/19/17 10:00 06/20/17 09:47 Coreg Cr - PO 20 mg DAILY LALO Administration Clonazepam 0.5 mg 06/13/17 21:42 06/19/17 21:36 Klonopin - PO 0.5 mg QID PRN Administration ANXIETY Ferrous Sulfate 325 mg 06/14/17 10:00 06/20/17 09:50 Feosol - PO 325 mg BID LALO Administration Furosemide 80 mg 06/19/17 14:00 06/20/17 06:01 Lasix Injection - IVPB Not Given BID@0600,1400 [facility] Guaifenesin 1 tablet 06/16/17 22:00 06/20/17 09:48 Mucinex Dm - PO Not Given BID [facility] Heparin Sodium (Porcine) 5,000 unit 06/13/17 22:00 06/20/17 05:54 Heparin - SQ 5,000 unit TID [facility] Administration Hydralazine HCl 100 mg 06/18/17 18:30 06/20/17 05:53 Apresoline - PO 100 mg TID LALO Administration Insulin Aspart 1 vial 06/13/17 22:13 06/20/17 06:00 Novolog Vial Sliding Scale - SQ 4 units ACHS LALO Administration Protocol Insulin Detemir 40 units 06/16/17 22:00 06/19/17 21:20 Levemir Vial SQ 40 units HS LALO Administration Latanoprost 1 drop 06/16/17 16:11 06/19/17 21:17 Xalatan 0.005% Eye Drops - OU 1 drop HS LALO Administration Minoxidil 5 mg 06/19/17 10:15 06/20/17 09:50 Lonitin - PO Not Given DAILY [facility]ALO Nitroglycerin 0.2 mg 06/14/17 10:00 06/19/17 13:37 Nitro-Dur Patch - TD 0.2 mg DAILY LALO Administration Pantoprazole Sodium 40 mg 06/14/17 11:45 06/20/17 09:48 Protonix - PO 40 mg DAILY LALO Administration Polyethylene Glycol 17 gm 06/17/17 10:00 06/20/17 09:49 Miralax (For Daily Use) - PO 17 grams DAILY LALO Administration Prasugrel 10 mg 06/14/17 10:00 06/20/17 09:50 Effient - PO 10 mg DAILY LALO Administration Prednisone 30 mg 06/19/17 12:45 06/20/17 09:47 Deltasone - PO 30 mg DAILY LALO Administration Last Vital Signs Temp Pulse Resp BP Pulse Ox 98.1 F 82 18 150/81 97 06/20/17 06:00 06/20/17 06:00 06/20/17 06:00 06/20/17 06:00 06/19/17 21:00 Intake & Output 06/17/17 06/18/17 06/19/17 06/20/17 23:59 23:59 23:59 23:59 Intake Total 210 620 850 200 Output Total 600 Balance -390 620 850 200 Weight 241 lb 8 oz 243 lb 241 lb 4 oz 239 lb 12.8 oz General NAD CV S1 S2 RRR no murmur/rub/gallop Lungs CTA B/L no wheezing/rales/rhonchi Abomen soft NT/NT obese Extremities trace non pitting edema CMP Sodium 134 mmol/L (136-145) L 06/20/17 06:05 Potassium 4.5 mmol/L (3.5-5.1) 06/20/17 06:05 Chloride 100 mmol/L (98-107) 06/20/17 06:05 Carbon Dioxide 23 mmol/L (21-32) 06/20/17 06:05 Anion Gap 11 (8-16) 06/20/17 06:05 BUN 109 mg/dL (7-18) H* 06/20/17 06:05 Creatinine 3.8 mg/dL (0.55-1.02) H 06/20/17 06:05 Creat Clearance w eGFR 12.04 (>60) 06/20/17 06:05 Calcium 8.9 mg/dL (8.5-10.1) 06/20/17 06:05 Total Bilirubin 0.2 mg/dL (0.2-1.0) D 06/20/17 06:05 AST 20 U/L (15-37) 06/20/17 06:05 ALT 25 U/L (12-78) D 06/20/17 06:05 Alkaline Phosphatase 80 U/L (45-117) D 06/20/17 06:05 Total Protein 6.5 g/dl (6.4-8.2) 06/20/17 06:05 Albumin 3.0 g/dl (3.4-5.0) L 06/20/17 06:05 Assessment/PLan: 62-year-old woman with a history of chronic diastolic heart failure, type 2 DM, HTN, hyperlipidemia, CAD, CABG, asthma, KATINA, anxiety, pulm HTN, PAF who presented to the ER with a worsening cough. 1. Elevated troponin in a patient with SOB and history of CAD- peaked at 0.32 and trending down. no signs of ACS. Continue home DAPT with ASA and Effient. cont crestor, coreg, NTG patch 2. Acute asthma exacerbation- possible GERD vs anxiety?. improved. transitioned to po steroids this AM. currently receiving nebulizer treatment. will check pre and post tomorrow. cont protonix. nebs prn. saturating well on RA. will attempt to decrease coreg when BP is more controlled. 3.HTN Urgency-improved but above goal. pt refusing most of her antihypertensive meds. does not want to take any medications that will affect her kidneys or cause fluid gain. instructed her importance of BP control and that kidney function will worsen if BP is not controlled. 4. Acute on CKD stage IV- possible medication induced. baseline Cr 2.5-2.6. now 3.8. will cont to monitor. hold lasix for now. pt will likely require hold torsemide. titrate down steroids. monitor 5. DM- uncontrolled. continues to refuse increase in long acting insulin. claims it will improve as the steroid dose is decreased. will monitor. iss/ levemir 6. CAD, history of stents- Continue aspirin, Coreg, Nitropatch, Crestor, Effient 7. Hyperlipidemia- Continue Crestor 8. Chronic diastolic heart failure- Stable 9. Anxiety- Continue Klonopin as needed 10. KATINA- Continue CPAP at night 11. Paroxysmal atrial fibrillation- Remains in SR 12. Pulmonary HTN 13. Morbid obesity with BMI 40.4 14. dvt ppx- hep sq Visit type - Emergency Visit Emergency Visit: Yes ED Registration Date: 06/15/17 Care time: The patient presented to the Emergency Department on the above date and was hospitalized for further evaluation of their emergent condition. - New Patient This patient is new to me today: No - Critical Care Critical Care patient: No - Discharge Referral Referred to [facility] No
[2017-06-20] MEDS: ALBUTEROL SO4 0.083% IH SOL 2.5 MG/3 ML VIAL.NEB. NEB PRN (11:04)
--- NOTE | 2017-06-20 11:40 | PN ---
Progress Note, Physician History of Present Illness: No complaints today Refused Minoxidil for BP yesterday as she deos not want to take diuretic. No chest pain or dyspnea No tele - Current Medication List Current Medications: Active Medications Acetaminophen (Tylenol -) 650 mg PO Q4H PRN PRN Reason: FEVER OR PAIN Last Admin: 06/19/17 21:18 Dose: 650 mg Albuterol Sulfate (Ventolin 0.083% Nebulizer Soln -) 1 amp NEB Q4H PRN PRN Reason: SHORT OF BREATH/WHEEZING Last Admin: 06/20/17 11:04 Dose: 1 amp Aspirin (Asa -) 81 mg PO DAILY [facility] Last Admin: 06/20/17 09:47 Dose: 81 mg Budesonide/Formoterol Fumarate (Symbicort 160/4.5mcg -) 2 puff IH BID [facility] Last Admin: 06/20/17 09:48 Dose: 2 puff Carvedilol (Coreg Cr -) 20 mg PO DAILY [facility] Last Admin: 06/20/17 09:47 Dose: 20 mg Clonazepam (Klonopin -) 0.5 mg PO QID PRN PRN Reason: ANXIETY Last Admin: 06/19/17 21:36 Dose: 0.5 mg Ferrous Sulfate (Feosol -) 325 mg PO BID [facility] Last Admin: 06/20/17 09:50 Dose: 325 mg Furosemide (Lasix Injection -) 80 mg IVPB BID@0600,1400 [facility] Last Admin: 06/20/17 06:01 Dose: Not Given Guaifenesin (Mucinex Dm -) 1 tablet PO BID [facility] Last Admin: 06/20/17 09:48 Dose: Not Given Heparin Sodium (Porcine) (Heparin -) 5,000 unit SQ TID [facility] Last Admin: 06/20/17 05:54 Dose: 5,000 unit Hydralazine HCl (Apresoline -) 100 mg PO TID [facility] Last Admin: 06/20/17 05:53 Dose: 100 mg Insulin Aspart (Novolog Vial Sliding Scale -) 1 vial SQ ACHS [facility] PRN Reason: Protocol Last Admin: 06/20/17 11:35 Dose: 4 units Insulin Detemir (Levemir Vial) 40 units SQ HS [facility] Last Admin: 06/19/17 21:20 Dose: 40 units Latanoprost (Xalatan 0.005% Eye Drops -) 1 drop OU HS [facility] Last Admin: 06/19/17 21:17 Dose: 1 drop Minoxidil (Lonitin -) 5 mg PO DAILY [facility] Last Admin: 06/20/17 09:50 Dose: Not Given Nitroglycerin (Nitro-Dur Patch -) 0.2 mg TD DAILY [facility] Last Admin: 06/19/17 13:37 Dose: 0.2 mg Pantoprazole Sodium (Protonix -) 40 mg PO DAILY [facility] Last Admin: 06/20/17 09:48 Dose: 40 mg Polyethylene Glycol (Miralax (For Daily Use) -) 17 gm PO DAILY [facility] Last Admin: 06/20/17 09:49 Dose: 17 grams Prasugrel (Effient -) 10 mg PO DAILY [facility] Last Admin: 06/20/17 09:50 Dose: 10 mg Prednisone (Deltasone -) 30 mg PO DAILY [facility] Last Admin: 06/20/17 09:47 Dose: 30 mg - Objective Vital Signs: Vital Signs Temperature 98.1 F 06/20/17 06:00 Pulse Rate 82 06/20/17 06:00 Respiratory Rate 18 06/20/17 06:00 Blood Pressure 150/81 06/20/17 06:00 O2 Sat by Pulse Oximetry (%) 97 06/19/17 21:00 Constitutional: Yes: Well Nourished, No Distress, Calm Eyes: Yes: WNL, Conjunctiva Clear HENT: Yes: WNL, Atraumatic Neck: Yes: WNL, Supple, Trachea Midline Cardiovascular: Yes: WNL, Regular Rate and Rhythm Respiratory: Yes: WNL, CTA Bilaterally Gastrointestinal: Yes: Normal Bowel Sounds Musculoskeletal: Yes: WNL Extremities: Yes: WNL Edema: No Labs: CBC, BMP 06/19/17 05:45 06/20/17 06:05 INR, PTT INR 1.00 (0.82-1.09) 06/14/17 06:00 Assessment/Plan 61 year old f with known CAD--h/o NSTEMI '13 s/p LAD KAREN PCI 09/2013, and prox LCx KAREN PCI 2014, HTN, lone afib/PSVT, MR, pHTN, KATINA, NAFLD, HPL, CKD, anemia, IDDM who presents to the ED with shortness of breath. chronic diastolic CHF (acute on chronic HFPEF) - hx of "flash" pulmonary edema in the past--felt to be a combo of diast dysf and ischemic heart disease. Dry weight 247-250 lbs. - home dry wt running 241-244 for a while now, wt 238 here on admit - bnp ranges 1600 - 3000s (i.e. the latter when decompensated). currently 1700 - Pulm pressure and wedge nitro-sensitive in can labeler so cont nitro as well ( can only tolerate low dose patch due to HAs) - cont home po torsemide, monitor for increasing vol with iv steroids, stable so far 06/19: Creat up to 3.6. Weight down to 241. Continue Torsemide at current dose. Monitor renal function. 06/20: Creat to 3.8. Weight to 239. Hold diuretics given worsening azotemia. bronchospasm/asthma, acute exacerbation: -has had increase severity of sx's over past few months, now admitted for same -will try to decr coreg CR dose to 10mg, ? exacerbating bronchospasm -tx per pmd/pulm CAD: -s/p prox LCx KAREN PCI 2014 for crescendo angina, prior mLAD stent patent, prior PTCA'ed D2 [place], residual 70-80% distal RCA disease unchanged from prior cath 2012 --left for medical rx -trop 0.3 x4 here--no c/w ACS, due to hi LV filling pressures -ecg non-ischemic -sx's not consistent with ACS--no further w/u indicated - Continue home DAPT with ASA and Effient. cont crestor, coreg, NTG patch. - No ACEI given fluctuating renal function. HTN: - intolerant of multiple BP meds before--diovan, micardis, verap, norvasc, nifedipine, nisoldipine, catapres patch - home regimen is coreg CR 20, hydral 25 TID, nitro patch 0.2mg (BUCKNER with higher doses) -here have decreased coreg to 10 in case was worsening asthma but bp remains elevated. Have been increasing hydralazine for bp control, now up to 75 tid with bp still high so will increase to 100 tid today. - bp's tend to run higher in hosp, especially with steroids--will likely need lower hydral dose at home (takes it prn at home based on bp's b/c often too low and drops with sx's if takes hydral dose) -Refused minoxidil. But BP better today. Continue with current antihypertensive regimen. will likely improve once off steroids. HPL: - tolerating crestor 10 mg, zetia Myalgias w Atorva/Simva and high dose crestor - LDL >200 at baseline--130s here; same meds - declined PCSK-9 inhibitor trial KATINA / Mod PHTN - compliant with CPAP at home. - diastolic dysfunction likely also contributing to pHTN. ARF / CKD: - baseline creat runs 2.5-2.6 - higher here, suspect intravasc vol depletion (? insensible losses, decr po intake due to malaise/cough) Remote PAF and PSVT - lone AF episode in setting of dobutamine, no recurrence. No AC thought to be indicated - same plan
--- NOTE | 2017-06-20 12:09 | PN ---
Progress Note (short form) - Note Progress Note: OOB to chair having lunch. Clinically looks better. BP is better. Denies CP or SOB. Some residual dry cough. Intake & Output 06/17/17 06/18/17 06/19/17 06/20/17 23:59 23:59 23:59 23:59 Intake Total 210 620 850 200 Output Total 600 Balance -390 620 850 200 Weight 241 lb 8 oz 243 lb 241 lb 4 oz 239 lb 12.8 oz Last Vital Signs Temp Pulse Resp BP Pulse Ox 98.1 F 82 18 150/81 97 06/20/17 06:00 06/20/17 06:00 06/20/17 06:00 06/20/17 06:00 06/19/17 21:00 Active Medications Acetaminophen (Tylenol -) 650 mg PO Q4H PRN PRN Reason: FEVER OR PAIN Last Admin: 06/19/17 21:18 Dose: 650 mg Albuterol Sulfate (Ventolin 0.083% Nebulizer Soln -) 1 amp NEB Q4H PRN PRN Reason: SHORT OF BREATH/WHEEZING Last Admin: 06/20/17 11:04 Dose: 1 amp Aspirin (Asa -) 81 mg PO DAILY [facility] Last Admin: 06/20/17 09:47 Dose: 81 mg Budesonide/Formoterol Fumarate (Symbicort 160/4.5mcg -) 2 puff IH BID [facility] Last Admin: 06/20/17 09:48 Dose: 2 puff Carvedilol (Coreg Cr -) 20 mg PO DAILY [facility] Last Admin: 06/20/17 09:47 Dose: 20 mg Clonazepam (Klonopin -) 0.5 mg PO QID PRN PRN Reason: ANXIETY Last Admin: 06/19/17 21:36 Dose: 0.5 mg Ferrous Sulfate (Feosol -) 325 mg PO BID [facility] Last Admin: 06/20/17 09:50 Dose: 325 mg Furosemide (Lasix Injection -) 80 mg IVPB BID@0600,1400 [facility] Last Admin: 06/20/17 06:01 Dose: Not Given Guaifenesin (Mucinex Dm -) 1 tablet PO BID [facility] Last Admin: 06/20/17 09:48 Dose: Not Given Heparin Sodium (Porcine) (Heparin -) 5,000 unit SQ TID [facility] Last Admin: 06/20/17 05:54 Dose: 5,000 unit Hydralazine HCl (Apresoline -) 100 mg PO TID [facility] Last Admin: 06/20/17 05:53 Dose: 100 mg Insulin Aspart (Novolog Vial Sliding Scale -) 1 vial SQ ACHS [facility] PRN Reason: Protocol Last Admin: 06/20/17 11:35 Dose: 4 units Insulin Detemir (Levemir Vial) 40 units SQ HS [facility] Last Admin: 06/19/17 21:20 Dose: 40 units Latanoprost (Xalatan 0.005% Eye Drops -) 1 drop OU HS [facility] Last Admin: 06/19/17 21:17 Dose: 1 drop Nitroglycerin (Nitro-Dur Patch -) 0.2 mg TD DAILY [facility] Last Admin: 06/19/17 13:37 Dose: 0.2 mg Pantoprazole Sodium (Protonix -) 40 mg PO DAILY [facility] Last Admin: 06/20/17 09:48 Dose: 40 mg Polyethylene Glycol (Miralax (For Daily Use) -) 17 gm PO DAILY [facility] Last Admin: 06/20/17 09:49 Dose: 17 grams Prasugrel (Effient -) 10 mg PO DAILY [facility] Last Admin: 06/20/17 09:50 Dose: 10 mg Prednisone (Deltasone -) 30 mg PO DAILY [facility] Last Admin: 06/20/17 09:47 Dose: 30 mg Constitutional: Yes: Awake and alert, Obese, NAD Eyes: Yes: WNL HENT: Yes: WNL Neck: Yes: WNL Cardiovascular: Yes: Regular Rate and Rhythm, S1, S2 Respiratory: Yes: Few scattered rhonchi, no wheezing Gastrointestinal: Yes: Normal Bowel Sounds, Soft Extremities: Yes: WNL Edema: Yes Labs: Laboratory Results - last 24 hr 06/19/17 06/19/17 06/20/17 16:36 20:26 05:38 Sodium Potassium Chloride Carbon Dioxide Anion Gap BUN Creatinine Creat Clearance w eGFR POC Glucometer 246 239 213 Random Glucose Calcium Total Bilirubin AST ALT Alkaline Phosphatase Total Protein Albumin 06/20/17 06/20/17 06:05 11:34 Sodium 134 L Potassium 4.5 Chloride 100 Carbon Dioxide 23 Anion Gap 11 BUN 109 H* Creatinine 3.8 H Creat Clearance w eGFR 12.04 POC Glucometer 220 Random Glucose 205 H D Calcium 8.9 Total Bilirubin 0.2 D AST 20 ALT 25 D Alkaline Phosphatase 80 D Total Protein 6.5 Albumin 3.0 L Problem List - Problems (1) Asthma exacerbation Code(s): J45.901 - UNSPECIFIED ASTHMA WITH (ACUTE) EXACERBATION (2) HTN (hypertension) Code(s): I10 - ESSENTIAL (PRIMARY) HYPERTENSION Qualifiers: Hypertension type: unspecified secondary hypertension Qualified Code(s) : I15.9 - Secondary hypertension, unspecified; I15 - Secondary hypertension (3) Anemia Code(s): D64.9 - ANEMIA, UNSPECIFIED (4) IDDM (insulin dependent diabetes mellitus) Code(s): E11.9 - TYPE 2 DIABETES MELLITUS WITHOUT COMPLICATIONS Z79.4 - SNF (CURRENT) USE OF INSULIN (5) ASHD (arteriosclerotic heart disease) Code(s): I25.10 - ATHSCL HEART DISEASE OF [place] CORONARY ARTERY W/O ANG PCTRS (6) Sleep apnea, obstructive Code(s): G47.33 - OBSTRUCTIVE SLEEP APNEA (ADULT) (PEDIATRIC) Assessment/Plan IMP CHRONIC PERSISTENT ASTHMA WITH ACUTE EXACERBATION CLINICALLY IMPROVING ASHD S/P STENT ELEVATED TROPONIN S/P MN IDDM KATINA ON CPAP 11cm/h20 HTN ACUTE ON CHRONIC RENAL FAILURE WORSENING PLAN PREDNISONE INHALED BRONCHODILATTORS NASAL O2 MONITOR PEAK FLOW ROBITUSSIN MONITOR LYTE,RENAL FUNCTION BP CONTROL DR FOOTE
[2017-06-20] MEDS: NITROGLYCERIN 0.2 MG/HOUR TD PATCH TD SCH (12:30)
[2017-06-20 13:24] LABS: BASOPHIL 0.2 % (0-2.0); EOSINOPHIL 0.1 % (0-4.5); MCH 25.8 pg (25.7-33.7); MEAN CELL VOLUME 78.1 fl (80-96); MEAN PLT VOLUME 8.6 fl (7.5-11.1); NEUTROPHILS 75.7 % (42.8-82.8); PLATELET COUNT 296 K/MM3 (134-434); RDW 12.9 % (11.6-15.6); WHITE BLOOD COUNT 12.1 K/mm3 (4.0-10.0)
--- NOTE | 2017-06-20 16:20 | PN ---
Progress Note, Physician Chief Complaint: 62 year old woman with PMhx of COPD, Bronchial asthma, Insulin Dependent Diabetes mellitus, Hypertension, Myocardial Infarction, Chronic kidney Disease Stage 4 presented with dyspnea and admitted for COPD exacerbation. The patient has accelerated Hypertension. On Minoxidil. She refused Lasix inj. Urine output reportedly minimal History of Present Illness: The patient has h/o COPD, Bronchial asthma, Insulin Dependent Diabetes mellitus , Hypertension, Myocardial Indaction, S/p PTIC, Chronic kidney Disease Stage 4 The patient denies any chest pain. No fever. Urine output has decreased. Respiratory distress persists. - Current Medication List Current Medications: Active Medications Acetaminophen (Tylenol -) 650 mg PO Q4H PRN PRN Reason: FEVER OR PAIN Last Admin: 06/19/17 21:18 Dose: 650 mg Albuterol Sulfate (Ventolin 0.083% Nebulizer Soln -) 1 amp NEB Q4H PRN PRN Reason: SHORT OF BREATH/WHEEZING Last Admin: 06/20/17 11:04 Dose: 1 amp Aspirin (Asa -) 81 mg PO DAILY [facility] Last Admin: 06/20/17 09:47 Dose: 81 mg Budesonide/Formoterol Fumarate (Symbicort 160/4.5mcg -) 2 puff IH BID [facility] Last Admin: 06/20/17 09:48 Dose: 2 puff Carvedilol (Coreg Cr -) 20 mg PO DAILY [facility] Last Admin: 06/20/17 09:47 Dose: 20 mg Clonazepam (Klonopin -) 0.5 mg PO QID PRN PRN Reason: ANXIETY Last Admin: 06/19/17 21:36 Dose: 0.5 mg Ferrous Sulfate (Feosol -) 325 mg PO BID [facility] Last Admin: 06/20/17 09:50 Dose: 325 mg Furosemide (Lasix Injection -) 80 mg IVPB BID@0600,1400 [facility] Last Admin: 06/20/17 06:01 Dose: Not Given Guaifenesin (Mucinex Dm -) 1 tablet PO BID [facility] Last Admin: 06/20/17 09:48 Dose: Not Given Heparin Sodium (Porcine) (Heparin -) 5,000 unit SQ TID [facility] Last Admin: 06/20/17 13:43 Dose: 5,000 unit Hydralazine HCl (Apresoline -) 100 mg PO TID [facility] Last Admin: 06/20/17 13:43 Dose: 100 mg Insulin Aspart (Novolog Vial Sliding Scale -) 1 vial SQ [facility] PRN Reason: Protocol Last Admin: 06/20/17 11:35 Dose: 4 units Insulin Detemir (Levemir Vial) 40 units SQ HS [facility] Last Admin: 06/19/17 21:20 Dose: 40 units Latanoprost (Xalatan 0.005% Eye Drops -) 1 drop OU HS [facility] Last Admin: 06/19/17 21:17 Dose: 1 drop Nitroglycerin (Nitro-Dur Patch -) 0.2 mg TD DAILY [facility] Last Admin: 06/20/17 12:30 Dose: 0.2 mg Pantoprazole Sodium (Protonix -) 40 mg PO DAILY [facility] Last Admin: 06/20/17 09:48 Dose: 40 mg Polyethylene Glycol (Miralax (For Daily Use) -) 17 gm PO DAILY [facility] Last Admin: 06/20/17 09:49 Dose: 17 grams Prasugrel (Effient -) 10 mg PO DAILY [facility] Last Admin: 06/20/17 09:50 Dose: 10 mg Prednisone (Deltasone -) 30 mg PO DAILY [facility] Last Admin: 06/20/17 09:47 Dose: 30 mg - Objective Vital Signs: Vital Signs Temperature 98.0 F 06/20/17 14:00 Pulse Rate 82 06/20/17 14:00 Respiratory Rate 20 06/20/17 14:00 Blood Pressure 187/78 06/20/17 14:00 O2 Sat by Pulse Oximetry (%) 99 06/20/17 09:00 Constitutional: Yes: Moderate Distress, Pallor Eyes: Yes: Conjunctiva Clear HENT: Yes: Atraumatic Neck: Yes: Trachea Midline Cardiovascular: Yes: Regular Rate and Rhythm, S1, S2 Respiratory: Yes: Regular, Diminished, Rales, Rhonchi Gastrointestinal: Yes: Normal Bowel Sounds, Abdomen, Obese Genitourinary: Yes: Oliguria. No: CVA Tenderness - Left, CVA Tenderness - Right , Hematuria Edema: Yes Edema: LLE: 2+, RLE: 2+ Neurological: Yes: Alert, Oriented Labs: CBC, BMP 06/20/17 13:03 06/20/17 06:05 INR, PTT INR 1.00 (0.82-1.09) 06/14/17 06:00 Problem List - Problems (1) ASHD (arteriosclerotic heart disease) Code(s): I25.10 - ATHSCL HEART DISEASE OF [place] CORONARY ARTERY W/O ANG PCTRS (2) Asthma exacerbation Code(s): J45.901 - UNSPECIFIED ASTHMA WITH (ACUTE) EXACERBATION (3) HTN (hypertension) Code(s): I10 - ESSENTIAL (PRIMARY) HYPERTENSION Qualifiers: Hypertension type: unspecified secondary hypertension Qualified Code(s) : I15.9 - Secondary hypertension, unspecified; I15 - Secondary hypertension (4) Anemia Code(s): D64.9 - ANEMIA, UNSPECIFIED (5) CHF (congestive heart failure) Code(s): I50.9 - HEART FAILURE, UNSPECIFIED Qualifiers: Congestive heart failure type: unspecified congestive heart failure type Congestive heart failure chronicity: acute on chronic Qualified Code(s): I50.9 - Heart failure, unspecified (6) IDDM (insulin dependent diabetes mellitus) Code(s): E11.9 - TYPE 2 DIABETES MELLITUS WITHOUT COMPLICATIONS Z79.4 - ALF (CURRENT) USE OF INSULIN (7) Acute kidney failure Code(s): N17.9 - ACUTE KIDNEY FAILURE, UNSPECIFIED Assessment/Plan This is a 62 y/o female admitted with Acute exacerbation of COPD/ Br. asthma. 2. The patient has underlying Chronic Kidney Disease Stage 4 , from Chronic Microvascular Renal disease ( HTN/ DM2/ Atherosclerosis). 3. Hypertension, Suboptimally controlled. Started on Loniten. Had lengthy discussion with the patient about the need for Loop diuretics. While this is in an attempt to improve the renal perfusion by improving the EF in this patient with CHF and massive fluid retention, the likelihood of the azoremia worsening can not be discounted. Some degree of elevated BUN is steroid dependent. 4. Anemia, of Chronic Kidney Disease. Suggest: As outlined above. Patient agreed to take Lasix. Will monitor the Renal functions with you. Had detailed discussion with the patient re: possible future courses of action, including any need for ASSURANCE SENIOR. Will try to defer dialysis until possibly the very last day. Thanks again Tamara Garcia MD
[2017-06-20] MEDS ORDERED: FUROSEMIDE 40 MG/4 ML INJECTABLE VIAL ONE (17:28)
[2017-06-20] MEDS ORDERED: INSULIN (NOVOLOG) ASPART 100 UNITS/ML 10ML VIAL ONE ×2 (21:00→21:03)
[2017-06-20] MEDS: LATANOPROST 0.005% OPHTH SOLN 2.5ML BOTTLE OU SCH (21:16)
[2017-06-20] MEDS: clonazePAM 0.5 MG TABLET PO PRN (21:17)
[2017-06-20] MEDS: INSULIN DETEMIR 100 UNITS/ML MDV SQ SCH (21:18)
[2017-06-21] MEDS ORDERED: FUROSEMIDE 40 MG/4 ML INJECTABLE VIAL IVPB SCH (06:00)
[2017-06-21] MEDS: INSULIN SLIDING SCALE (NOVOLOG) 1 VIAL SQ SCH ×4 (06:04→21:36)
[2017-06-21] MEDS: hydrALAZINE HCL 50 MG TABLET (FP) PO SCH ×3 (06:16→21:35)
[2017-06-21] MEDS: HEPARIN NA (PORCINE) 5,000 UNITS/ML 1ML VIAL SQ SCH ×3 (06:16→21:35)
[2017-06-21 08:38] LABS: ANION GAP 13 (8-16); CALCIUM 9.2 mg/dL (8.5-10.1); CO2 24 mmol/L (21-32); CREATININE 3.5 mg/dL (0.55-1.02); GLUCOSE,RANDOM 105 mg/dL (74-106)
[2017-06-21] MEDS ORDERED: PT OWN MED DRAWER 7, Y5N ONE ×2 (08:56→21:25)
[2017-06-21] MEDS: BUDESONIDE/FORMETEROL FUMARATE 160/4.5 mcg INHALER IH SCH ×2 (09:06→21:35)
[2017-06-21] MEDS: CARVEDILOL PHOSPHATE CR 20 MG CAPSULE (FP) PO SCH (09:07)
[2017-06-21] MEDS: PANTOPRAZOLE 40 MG TABLET (FP) PO SCH (09:07)
[2017-06-21] MEDS: predniSONE 10 MG TABLET (UD) PO SCH (09:07)
[2017-06-21] MEDS: FERROUS SO4 325 MG TABLET (FP) PO SCH ×2 (09:07→21:35)
[2017-06-21] MEDS: ASPIRIN 81 MG CHEWABLE TABLETS PO SCH (09:07)
[2017-06-21] MEDS: PRASUGREL HCL 10 MG TAB PO SCH (09:07)
[2017-06-21] MEDS: guaiFENesin/D-METHORPHAN HB 1 EACH TAB.ER.12H PO SCH ×2 (09:08→21:37)
[2017-06-21] MEDS: POLYETHYLENE GLYCOL 3350 119 GM BTL PO SCH (09:08)
[2017-06-21] MEDS: NITROGLYCERIN 0.2 MG/HOUR TD PATCH TD SCH ×2 (09:22→11:52)
--- NOTE | 2017-06-21 09:52 | PN ---
Progress Note, Physician Chief Complaint: OBI, HTN History of Present Illness: continues to deny abd bloating, leg swelling, incr palpitations, sob (i.e none of her CHF sx's) no cp cough improved no cigs - Current Medication List Current Medications: Active Medications Acetaminophen (Tylenol -) 650 mg PO Q4H PRN PRN Reason: FEVER OR PAIN Last Admin: 06/19/17 21:18 Dose: 650 mg Albuterol Sulfate (Ventolin 0.083% Nebulizer Soln -) 1 amp NEB Q4H PRN PRN Reason: SHORT OF BREATH/WHEEZING Last Admin: 06/20/17 11:04 Dose: 1 amp Aspirin (Asa -) 81 mg PO DAILY [facility] Last Admin: 06/21/17 09:07 Dose: 81 mg Budesonide/Formoterol Fumarate (Symbicort 160/4.5mcg -) 2 puff IH BID [facility] Last Admin: 06/21/17 09:06 Dose: 2 puff Carvedilol (Coreg Cr -) 10 mg PO DAILY [facility] Clonazepam (Klonopin -) 0.5 mg PO QID PRN PRN Reason: ANXIETY Last Admin: 06/20/17 21:17 Dose: 0.5 mg Clonidine HCl (Catapres Tts Patch -) 0.1 mg TD Q7D@1000 [facility] Ferrous Sulfate (Feosol -) 325 mg PO BID [facility] Last Admin: 06/21/17 09:07 Dose: 325 mg Guaifenesin (Mucinex Dm -) 1 tablet PO BID [facility] Last Admin: 06/21/17 09:08 Dose: Not Given Heparin Sodium (Porcine) (Heparin -) 5,000 unit SQ TID [facility] Last Admin: 06/21/17 06:16 Dose: 5,000 unit Hydralazine HCl (Apresoline -) 100 mg PO TID [facility] Last Admin: 06/21/17 06:16 Dose: 100 mg Insulin Aspart (Novolog Vial Sliding Scale -) 1 vial SQ ACHS [facility] PRN Reason: Protocol Last Admin: 06/21/17 06:04 Dose: Not Given Insulin Detemir (Levemir Vial) 40 units SQ HS [facility] Last Admin: 06/20/17 21:18 Dose: 40 units Latanoprost (Xalatan 0.005% Eye Drops -) 1 drop OU HS [facility] Last Admin: 06/20/17 21:16 Dose: 1 drop Nitroglycerin (Nitro-Dur Patch -) 0.2 mg TD DAILY [facility] Last Admin: 06/21/17 09:22 Dose: Not Given Pantoprazole Sodium (Protonix -) 40 mg PO DAILY [facility] Last Admin: 06/21/17 09:07 Dose: 40 mg Polyethylene Glycol (Miralax (For Daily Use) -) 17 gm PO DAILY [facility] Last Admin: 06/21/17 09:08 Dose: 17 grams Prasugrel (Effient -) 10 mg PO DAILY [facility] Last Admin: 06/21/17 09:07 Dose: 10 mg Prednisone (Deltasone -) 30 mg PO DAILY [facility] Last Admin: 06/21/17 09:07 Dose: 30 mg - Objective Vital Signs: Vital Signs Temperature 98.3 F 06/21/17 06:00 Pulse Rate 74 06/21/17 06:00 Respiratory Rate 18 06/21/17 06:00 Blood Pressure 161/76 06/21/17 06:00 O2 Sat by Pulse Oximetry (%) 98 06/20/17 21:00 Constitutional: Yes: No Distress, Calm, Obese Eyes: No: Sclera Icterus HENT: No: Nasal Congestion Cardiovascular: Yes: Regular Rate and Rhythm, S1, S2, Other (PMI non diplaced). No: Gallop, Murmur Respiratory: Yes: CTA Bilaterally. No: Accessory Muscle Use, Rales, Wheezes Gastrointestinal: Yes: Normal Bowel Sounds, Soft. No: Tenderness Musculoskeletal: Yes: Other (No kyphosis) Extremities: No: Cold Edema: No Integumentary: No: Jaundice Neurological: Yes: Alert, Oriented (x3) Psychiatric: No: Agitated Labs: CBC, BMP 06/20/17 13:03 06/21/17 06:10 INR, PTT INR 1.00 (0.82-1.09) 06/14/17 06:00 Assessment/Plan Echo 01/15: nl LV/EF; dd2, hi E/e' = hi LAP. nl RV. mild LAE. mild-mod MR, mod TR. mild pHTN (46 mmHg). Echo 09/14/16: Low nl LVEF. RV not well seen. 1+ MR. Echo 03/2015: TDS, normal LV/RVF, no sig valv abn Dobut stress echo 10/2015: 7.34 min. 83% MPHR. HTN response. No EKG changes. TDS apex, portions of AW and basal PW not well seen. No ischemia, appropriate EF augmentation. (post PCI) CXR: clear lungs/pleura 61 year old f with known CAD--h/o NSTEMI '13 s/p LAD KAREN PCI 09/2013, and prox LCx KAREN PCI 2014, HTN, lone afib/PSVT, MR, pHTN, KATINA, NAFLD, HPL, CKD, anemia, IDDM who presents to the ED with shortness of breath. chronic diastolic CHF (acute on chronic HFPEF) - hx of "flash" pulmonary edema in the past--felt to be a combo of diast dysf and ischemic heart disease. Dry weight 247-250 lbs. - home dry wt running 241-244 for a while now, wt 238 here on admit - bnp ranges 1600 - 3000s (i.e. the latter when decompensated). 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 Weight down to 241. Continue Torsemide at current dose. Monitor renal function. -06/20: Creat to 3.8. Weight to 239. Hold diuretics given worsening azotemia. -pt has never exhibited her usual s/sx of chf here, and her wt remains at ( currently below) her well-defined longstanding dry wt -she was likely dry on admit (wt below her baseline, creat above her stable outpt baseline with prerenal picture)-->bun/creat signif bumped approx 48 hrs after home po torsemide resumed, and has steadily climbed since -s/p lasix 80 iv last night-->bun up further though creat improved slightly -will stop diuretics, start gentle IVF bronchospasm/asthma, acute exacerbation: -has had increase severity of sx's over past few months, now admitted for same -will try to decr coreg CR dose to 10mg, ? exacerbating bronchospasm -tx per pmd/pulm HTN: - intolerant of multiple BP meds before--diovan, micardis, verap, norvasc, nifedipine, nisoldipine, catapres patch - home regimen wass coreg CR 20, hydral 25 TID, nitro patch 0.2mg (BUCKNER with higher doses)--only takes hydral prn as her bp is labile and often is symptomatically low with hydral -pt bp's tend to always run higher when in hosp, praneeth when getting steroids for bronchospasm--improves signif at home -would not recommend overzealous tx of hosp BPs, given she will f/u closely with me after discharge -decreased coreg to 10mg here to see if helps with her recently worsened bronchospasm behavior -hydralazine has been uptitrated to high dose (100 tid here)--suspect will require much lower dose when goes home -cont ntg patch (at max tolerated dose already) -avoid RAAS blockers given labile creatinines and Stage IV CKD--can consider low dose spironolactone (or clorthalidone) later once creat stable (with freq labs f/u) -would not use minoxidil given very labile volume retention behavior -will retry clonidine patch 0.1mg (? what prior intolerance was--she can't recall) CAD: -s/p prox LCx KAREN PCI 2014 for crescendo angina, prior mLAD stent patent, prior PTCA'ed D2 [place], residual 70-80% distal RCA disease unchanged from prior cath 2012 --left for medical rx -trop 0.3 x4 here--no c/w ACS, due to hi LV filling pressures -ecg non-ischemic -sx's not consistent with ACS--no further w/u indicated - Continue home DAPT with ASA and Effient. cont crestor, coreg, NTG patch. - No ACEI given fluctuating renal function. HPL: - tolerating crestor 10 mg, zetia Myalgias w Atorva/Simva and high dose crestor - LDL >200 at baseline--130s here; same meds - declined PCSK-9 inhibitor trial KATINA / Mod PHTN - compliant with CPAP at home. - diastolic dysfunction likely also contributing to pHTN. ARF / CKD: - baseline creat runs 2.5-2.6 - higher here, suspect intravasc vol depletion (? insensible losses, decr po intake due to malaise/cough)--worsened signif since diuretic resumed - holding diuretics, starting IVF gently per d/w renal Remote PAF and PSVT - lone AF episode in setting of dobutamine, no recurrence. No AC thought to be indicated - same plan
[2017-06-21] MEDS ORDERED: cloNIDine-TTS 0.1 MG/24 HRS PATCH.TDWK TD SCH (10:30)
[2017-06-21] MEDS ORDERED: SODIUM CHLORIDE 0.45% 1,000 ML IV SCH (11:15)
--- NOTE | 2017-06-21 11:19 | PN ---
Progress Note (short form) - Note Progress Note: Renal Follow up for CKD Stage 4 Pt seen and examined at the bedside reports significant improvement in SOB no chest pain, + cough (non-productive) no fever, chills good urine output no N/V/D Vital Signs Temperature 98.5 F 06/21/17 10:00 Pulse Rate 81 06/21/17 10:00 Respiratory Rate 18 06/21/17 10:00 Blood Pressure 117/45 06/21/17 10:00 O2 Sat by Pulse Oximetry (%) 99 06/21/17 09:00 Intake & Output 06/18/17 06/19/17 06/20/17 06/21/17 23:59 23:59 23:59 23:59 Intake Total 620 850 750 200 Balance 620 850 750 200 Weight 243 lb 241 lb 4 oz 239 lb 12.8 oz 238 lb 9.6 oz Gen: NAD CVS: RRR Lungs: no wheeze, no rales Abd: soft NT/ND, Obese Ext: No edema CBC, BMP 06/20/17 13:03 06/21/17 06:10 Current Medications Acetaminophen (Tylenol -) 650 mg PO Q4H PRN PRN Reason: FEVER OR PAIN Last Admin: 06/19/17 21:18 Dose: 650 mg Albuterol Sulfate (Ventolin 0.083% Nebulizer Soln -) 1 amp NEB Q4H PRN PRN Reason: SHORT OF BREATH/WHEEZING Last Admin: 06/20/17 11:04 Dose: 1 amp Aspirin (Asa -) 81 mg PO DAILY [facility] Last Admin: 06/21/17 09:07 Dose: 81 mg Budesonide/Formoterol Fumarate (Symbicort 160/4.5mcg -) 2 puff IH BID [facility] Last Admin: 06/21/17 09:06 Dose: 2 puff Carvedilol (Coreg Cr -) 10 mg PO DAILY [facility] Clonazepam (Klonopin -) 0.5 mg PO QID PRN PRN Reason: ANXIETY Last Admin: 06/20/17 21:17 Dose: 0.5 mg Clonidine HCl (Catapres Tts Patch -) 0.1 mg TD Q7D@1000 [facility] Last Admin: 06/21/17 11:11 Dose: 0.1 mg Ferrous Sulfate (Feosol -) 325 mg PO BID [facility] Last Admin: 06/21/17 09:07 Dose: 325 mg Guaifenesin (Mucinex Dm -) 1 tablet PO BID [facility] Last Admin: 06/21/17 09:08 Dose: Not Given Heparin Sodium (Porcine) (Heparin -) 5,000 unit SQ TID [facility] Last Admin: 06/21/17 06:16 Dose: 5,000 unit Hydralazine HCl (Apresoline -) 100 mg PO TID [facility] Last Admin: 06/21/17 06:16 Dose: 100 mg Sodium Chloride (1/2 Normal Saline) 1,000 mls @ 60 mls/hr IV ASDIR [facility] Stop: 06/22/17 11:14 Insulin Aspart (Novolog Vial Sliding Scale -) 1 vial SQ ACHS [facility] PRN Reason: Protocol Last Admin: 06/21/17 06:04 Dose: Not Given Insulin Detemir (Levemir Vial) 40 units SQ HS [facility] Last Admin: 06/20/17 21:18 Dose: 40 units Latanoprost (Xalatan 0.005% Eye Drops -) 1 drop OU HS [facility] Last Admin: 06/20/17 21:16 Dose: 1 drop Nitroglycerin (Nitro-Dur Patch -) 0.2 mg TD DAILY [facility] Last Admin: 06/21/17 09:22 Dose: Not Given Pantoprazole Sodium (Protonix -) 40 mg PO DAILY [facility] Last Admin: 06/21/17 09:07 Dose: 40 mg Polyethylene Glycol (Miralax (For Daily Use) -) 17 gm PO DAILY [facility] Last Admin: 06/21/17 09:08 Dose: 17 grams Prasugrel (Effient -) 10 mg PO DAILY [facility] Last Admin: 06/21/17 09:07 Dose: 10 mg Prednisone (Deltasone -) 30 mg PO DAILY [facility] Last Admin: 06/21/17 09:07 Dose: 30 mg A/p 62 year old woman with PMhx of COPD, Bronchial asthma, Insulin Dependent Diabetes mellitus, Hypertension, Myocardial Infarction, Chronic kidney Disease Stage 4, with a eGFR of 23 ml/min/1.73m2 presented with SOB and admitted for COPD exacerbation. #CKD Stage 4 with subnephrotoic proteinuria Baseline Cr ~2.5 BUN/Cr remain elevated, however pt without any uremic symptoms at this time to warrant dialysis pt without significant improvement with IV diuretics Case discussed with Cardiology and it does not appear that the patient is in overt heart failure at this time would hold diuretics at this time and give trial of hypotonic IVF Trend BUN/Cr Dose all meds for Cr Cl less then 15 #COPD exacerbation on oral prednisone and Nebs Clinically improved #Hypertension Goal BP < 140/90 pt is on Coreg and Clonidine #Hyponatremia from water retention in setting of CKD Trend for now Thank you Goyo Cid DO
--- NOTE | 2017-06-21 11:40 | PN ---
Progress Note, Physician History of Present Illness: pulmonary alert,no distress,-sob,min cough - Current Medication List Current Medications: Active Medications Acetaminophen (Tylenol -) 650 mg PO Q4H PRN PRN Reason: FEVER OR PAIN Last Admin: 06/19/17 21:18 Dose: 650 mg Albuterol Sulfate (Ventolin 0.083% Nebulizer Soln -) 1 amp NEB Q4H PRN PRN Reason: SHORT OF BREATH/WHEEZING Last Admin: 06/20/17 11:04 Dose: 1 amp Aspirin (Asa -) 81 mg PO DAILY [facility] Last Admin: 06/21/17 09:07 Dose: 81 mg Budesonide/Formoterol Fumarate (Symbicort 160/4.5mcg -) 2 puff IH BID [facility] Last Admin: 06/21/17 09:06 Dose: 2 puff Carvedilol (Coreg Cr -) 10 mg PO DAILY [facility] Clonazepam (Klonopin -) 0.5 mg PO QID PRN PRN Reason: ANXIETY Last Admin: 06/20/17 21:17 Dose: 0.5 mg Clonidine HCl (Catapres Tts Patch -) 0.1 mg TD Q7D@1000 [facility] Last Admin: 06/21/17 11:11 Dose: 0.1 mg Ferrous Sulfate (Feosol -) 325 mg PO BID [facility] Last Admin: 06/21/17 09:07 Dose: 325 mg Guaifenesin (Mucinex Dm -) 1 tablet PO BID [facility] Last Admin: 06/21/17 09:08 Dose: Not Given Heparin Sodium (Porcine) (Heparin -) 5,000 unit SQ TID [facility] Last Admin: 06/21/17 06:16 Dose: 5,000 unit Hydralazine HCl (Apresoline -) 100 mg PO TID [facility] Last Admin: 06/21/17 06:16 Dose: 100 mg Sodium Chloride (1/2 Normal Saline) 1,000 mls @ 60 mls/hr IV ASDIR [facility] Stop: 06/22/17 11:14 Insulin Aspart (Novolog Vial Sliding Scale -) 1 vial SQ ACHS [facility] PRN Reason: Protocol Last Admin: 06/21/17 06:04 Dose: Not Given Insulin Detemir (Levemir Vial) 40 units SQ HS [facility] Last Admin: 06/20/17 21:18 Dose: 40 units Latanoprost (Xalatan 0.005% Eye Drops -) 1 drop OU HS [facility] Last Admin: 06/20/17 21:16 Dose: 1 drop Nitroglycerin (Nitro-Dur Patch -) 0.2 mg TD DAILY [facility] Last Admin: 06/21/17 09:22 Dose: Not Given Pantoprazole Sodium (Protonix -) 40 mg PO DAILY [facility] Last Admin: 06/21/17 09:07 Dose: 40 mg Polyethylene Glycol (Miralax (For Daily Use) -) 17 gm PO DAILY [facility] Last Admin: 06/21/17 09:08 Dose: 17 grams Prasugrel (Effient -) 10 mg PO DAILY [facility] Last Admin: 06/21/17 09:07 Dose: 10 mg Prednisone (Deltasone -) 30 mg PO DAILY [facility] Last Admin: 06/21/17 09:07 Dose: 30 mg - Objective Vital Signs: Vital Signs Temperature 98.5 F 06/21/17 10:00 Pulse Rate 81 06/21/17 10:00 Respiratory Rate 18 06/21/17 10:00 Blood Pressure 117/45 06/21/17 10:00 O2 Sat by Pulse Oximetry (%) 99 06/21/17 09:00 Constitutional: Yes: Calm, Obese Eyes: Yes: WNL HENT: Yes: WNL Neck: Yes: Supple Cardiovascular: Yes: Regular Rate and Rhythm, S1, S2 Respiratory: Yes: Diminished Gastrointestinal: Yes: Normal Bowel Sounds, Soft Extremities: Yes: WNL Edema: Yes Labs: CBC, BMP 06/20/17 13:03 06/21/17 06:10 INR, PTT INR 1.00 (0.82-1.09) 06/14/17 06:00 Problem List - Problems (1) Asthma exacerbation Code(s): J45.901 - UNSPECIFIED ASTHMA WITH (ACUTE) EXACERBATION (2) HTN (hypertension) Code(s): I10 - ESSENTIAL (PRIMARY) HYPERTENSION Qualifiers: Hypertension type: unspecified secondary hypertension Qualified Code(s) : I15.9 - Secondary hypertension, unspecified; I15 - Secondary hypertension (3) Anemia Code(s): D64.9 - ANEMIA, UNSPECIFIED (4) IDDM (insulin dependent diabetes mellitus) Code(s): E11.9 - TYPE 2 DIABETES MELLITUS WITHOUT COMPLICATIONS Z79.4 - [employer] FORMER (CURRENT) USE OF INSULIN (5) ASHD (arteriosclerotic heart disease) Code(s): I25.10 - ATHSCL HEART DISEASE OF [place] CORONARY ARTERY W/O ANG PCTRS (6) Sleep apnea, obstructive Code(s): G47.33 - OBSTRUCTIVE SLEEP APNEA (ADULT) (PEDIATRIC) Assessment/Plan IMP CHRONIC PERSISTENT ASTHMA WITH ACUTE EXACERBATION CLINICALLY IMPROVING ASHD S/P STENT ELEVATED TROPONIN S/P VA IDDM KATINA ON CPAP 11cm/h20 HTN ACUTE ON CHRONIC RENAL FAILURE WORSENING PLAN PREDINSONE INHALED BRONCHODILATTORS NASAL O2 MONITOR PEAK FLOW ROBITUSSIN MONITOR LYTES,RENAL FUNCTION DR BENDER Problem List - Problems (1) Asthma exacerbation Code(s): J45.901 - UNSPECIFIED ASTHMA WITH (ACUTE) EXACERBATION (2) HTN (hypertension) Code(s): I10 - ESSENTIAL (PRIMARY) HYPERTENSION Qualifiers: Hypertension type: unspecified secondary hypertension Qualified Code(s) : I15.9 - Secondary hypertension, unspecified; I15 - Secondary hypertension (3) Anemia Code(s): D64.9 - ANEMIA, UNSPECIFIED (4) IDDM (insulin dependent diabetes mellitus) Code(s): E11.9 - TYPE 2 DIABETES MELLITUS WITHOUT COMPLICATIONS Z79.4 - CARE HOME (CURRENT) USE OF INSULIN (5) ASHD (arteriosclerotic heart disease) Code(s): I25.10 - ATHSCL HEART DISEASE OF [place] CORONARY ARTERY W/O ANG PCTRS (6) Sleep apnea, obstructive Code(s): G47.33 - OBSTRUCTIVE SLEEP APNEA (ADULT) (PEDIATRIC)
--- NOTE | 2017-06-21 14:19 | PN ---
Physical Exam: SUBJECTIVE: Patient seen and examined No acute events overnight. No complaints this morning. Patient states cough is improving. OBJECTIVE: Vital Signs Period Temp Pulse Resp BP Sys/Shankar Pulse Ox Last 24 Hr 98.0 F-98.5 F 74-81 18-18 117-193/45-76 98-99 GENERAL: The patient is awake, alert, and fully oriented, in no acute distress. HEAD: Normal with no signs of trauma. EYES: Extraocular movements intact, sclera anicteric, conjunctiva clear. No ptosis. ENT: Oropharynx clear without exudates, moist mucous membranes. NECK: Trachea midline, full range of motion, supple. LUNGS: Breath sounds equal, Clear to auscultation bilaterally, no crackles, no accessory muscle use. HEART: Regular rate and rhythm, S1, S2 without murmur, rub or gallop. ABDOMEN: Soft, nontender, Nondistended, normoactive bowel sounds, no guarding, no rebound, no hepatosplenomegaly, no masses. EXTREMITIES: 2+ radial/dp pulses, warm, well-perfused, mild nonpitting edema NEUROLOGICAL: Cranial nerves II through XII grossly intact. Normal speech, gait appropriate PSYCH: Normal mood, normal affect. SKIN: Warm, dry, normal turgor, no rashes or lesions noted Laboratory Results - last 24 hr 06/20/17 06/20/17 06/20/17 17:11 20:29 21:05 Sodium Potassium Chloride Carbon Dioxide Anion Gap BUN Creatinine POC Glucometer 172 417 395 Random Glucose Calcium 06/21/17 06/21/17 06/21/17 05:47 06:10 11:10 Sodium 133 L Potassium 4.8 Chloride 96 L Carbon Dioxide 24 Anion Gap 13 BUN 112 H* Creatinine 3.5 H POC Glucometer 112 157 Random Glucose 105 D Calcium 9.2 Active Medications Generic Name Dose Route Start Last Admin Trade Name Freq PRN Reason Stop Dose Admin Acetaminophen 650 mg 06/13/17 21:29 06/19/17 21:18 Tylenol - PO 650 mg Q4H PRN Administration FEVER OR PAIN Albuterol Sulfate 1 amp 06/14/17 13:02 06/20/17 11:04 Ventolin 0.083% Nebulizer Soln - NEB 1 amp Q4H PRN Administration SHORT OF BREATH/WHEEZING Aspirin 81 mg 06/14/17 10:00 06/21/17 09:07 Asa - PO 81 mg DAILY [facility] Administration Budesonide/Formoterol Fumarate 2 puff 06/14/17 08:00 06/21/17 09:06 Symbicort 160/4.5mcg - IH 2 puff BID [facility] Administration Carvedilol 10 mg 06/22/17 10:00 Coreg Cr - PO DAILY [facility] Clonazepam 0.5 mg 06/13/17 21:42 06/20/17 21:17 Klonopin - PO 0.5 mg QID PRN Administration ANXIETY Clonidine HCl 0.1 mg 06/21/17 10:30 06/21/17 11:11 Catapres Tts Patch - TD 0.1 mg Q7D@1000 [facility] Administration Ferrous Sulfate 325 mg 06/14/17 10:00 06/21/17 09:07 Feosol - PO 325 mg BID [facility] Administration Guaifenesin 1 tablet 06/16/17 22:00 06/21/17 09:08 Mucinex Dm - PO Not Given BID [facility] Heparin Sodium (Porcine) 5,000 unit 06/13/17 22:00 06/21/17 13:44 Heparin - SQ 5,000 unit TID [facility] Administration Hydralazine HCl 100 mg 06/18/17 18:30 06/21/17 13:44 Apresoline - PO 100 mg TID [facility] Administration Sodium Chloride 1,000 mls @ 60 mls/hr 06/21/17 11:15 06/21/17 11:36 1/2 Normal Saline IV 06/22/17 11:14 60 mls/hr ASDIR [facility] Administration Insulin Aspart 1 vial 06/13/17 22:13 06/21/17 11:52 Novolog Vial Sliding Scale - SQ 2 units ACHS [facility] Administration Protocol Insulin Detemir 40 units 06/16/17 22:00 06/20/17 21:18 Levemir Vial SQ 40 units HS [facility] Administration Latanoprost 1 drop 06/16/17 16:11 06/20/17 21:16 Xalatan 0.005% Eye Drops - OU 1 drop HS [facility] Administration Nitroglycerin 0.2 mg 06/14/17 10:00 06/21/17 11:52 Nitro-Dur Patch - TD 0.2 mg DAILY [facility] Administration Pantoprazole Sodium 40 mg 06/14/17 11:45 07/24/17 09:07 Protonix - PO 40 mg DAILY [facility] Administration Polyethylene Glycol 17 gm 06/17/17 10:00 06/21/17 09:08 Miralax (For Daily Use) - PO 17 grams DAILY [facility] Administration Prasugrel 10 mg 06/14/17 10:00 06/21/17 09:07 Effient - PO 10 mg DAILY [facility] Administration Prednisone 30 mg 06/19/17 12:45 06/21/17 09:07 Deltasone - PO 30 mg DAILY [facility] Administration ASSESSMENT/PLAN: 62 yo F with PMH of CHF, IDDM, HTN, CAD(S/p CABG x 2 stents), asthma, and anxiety presented to the ED with 1 week history of cough found to have elevated trop of 0.32 and was admitted to r/o ACS #- Cough - Asthma * In acute asthma exacerbation, Could be GERD vs. Anxiety * Improving * Continue Home meds Albuterol Neb Q 4H and symbicort 2 IH PO BID * Continue Prednisone 30 mg PO daily, will taper. * Continue Nasal O2 * Continue Mucinex DM 1 tablet PO BID * Continue Protonix 40 mg PO daily * Pulmonary following, Dr. Huang * Normal barium swallow evaluation #- Troponin elevation : possibley demand vs renal failure vs ACS * Resolved * Heart score of 5 * Pt has Hx of HTN , CAD S/P CABG x 2 stents , and IDDM * First Trop 0.32, second 0.31 continue, third trop is 0.30 * Aspirin 162 mg was given in ED. Will continue 81 mg daily * Transfer from [facility] to med surg * Cardiology following, Dr. Chen * Continue Effient 10 mg PO daily # Constipation * Miralax daily * Resolved #Foamy urine * Resolved * UA 3+ glucose * Likely due to hyperglycemia # HTN - likely due to steroids * 161/76 * monitor BP * Continue coreg 10 mg po daily * Continue Hydralazine 100 mg PO TID * Continue nitroglycerin patch 0.2 mg * Received clonidine 0.1 mg this morning #- Diastolic CHF , Chronic * stable, in no acute exacerbation, * last Echo in August 2016 shows EF- 51 % * Hold Torsemide, continue Hydralazine HCl 100 mg PO TID, #- IDDM, chronic- increased sugars likely due to steroids * BGM * ISS * Increased Levemir to 40 units HS * Diabetic Diet #- Chronic kidney disease, stage 4 * Cr base line around 3 * today Cr 3.5 * Increased Cr likely due to torsemide and steroids * Torsemide held due to increased Cr * Avoid nephrotoxins * Discussed case with renal: * Gentle hydration with IVF 0.45 NS over 24 hrs. * Urine studies (Creatinine, sodium, and urea) * Nephrology following, Dr. Carmen # Anxiety , chronic * Continue home meds Clonazepam 0.5 mg PO QID PRN # HLD * Crestor discontinued per nephro on 06/17. #- DVT Proph, medium * Heparin 5000 unit SQ TID #- F/E/N * F: IVF 0.45 NS 60 cc/hr * Electrolytes- Na- 133. on IVF 0.45 NS. Will continue to monitor * Diabetic/low sodium diet Visit type - Emergency Visit Emergency Visit: No - New Patient This patient is new to me today: No - Critical Care Critical Care patient: No
--- NOTE | 2017-06-21 16:53 | PN ---
Teaching Attending Note Name of Resident: Keyur Jimenez ATTENDING PHYSICIAN STATEMENT I saw and evaluated the patient. I reviewed the resident's note and discussed the case with the resident. I agree with the resident's findings and plan as documented. SUBJECTIVE:asymptomatic. denies Cp, SOB, fever, chills, cough, N/V/C/D OBJECTIVE: Last Vital Signs Temp Pulse Resp BP Pulse Ox 98.9 F 73 20 120/58 99 06/21/17 14:00 06/21/17 14:00 06/21/17 14:00 06/21/17 14:00 06/21/17 09:00 General NAD CV S1 S2 RRR no murmur/rub/gallop Lungs CTA B/L no wheezing/rales/rhonchi Extremities non pitting edema ASSESSMENT AND PLAN: 62-year-old woman with a history of chronic diastolic heart failure, type 2 DM, HTN, hyperlipidemia, CAD, CABG, asthma, KATINA, anxiety, pulm HTN, PAF who presented to the ER with a worsening cough. 1. Elevated troponin in a patient with SOB and history of CAD- peaked at 0.32 and trending down. no signs of ACS. Continue home DAPT with ASA and Effient. cont crestor, coreg, NTG patch 2. Acute asthma exacerbation- possible GERD vs anxiety?. improved. saturating well on RA. on po steroids. cont taper per pulmonary. nebs prn. cont protonix. nebs prn. saturating well on RA. will attempt to decrease coreg when BP is more controlled. 3.HTN Urgency-improved but above goal. continues to refuse minoxidil. received lasix 80mg x1. likely improving now off iv steroids. will monitor. 4. Acute on CKD stage IV- possible medication induced. baseline Cr 2.5-2.6. slow trend down. started on hypotonic saline will monitor for improvement.\ 5. DM- uncontrolled. continues to refuse increase in long acting insulin. claims it will improve as the steroid dose is decreased. will monitor. iss/ levemir 6. CAD, history of stents- Continue aspirin, Coreg, Nitropatch, Crestor, Effient 7. Hyperlipidemia- Continue Crestor 8. Chronic diastolic heart failure- Stable 9. Anxiety- Continue Klonopin as needed 10. KATINA- Continue CPAP at night 11. Paroxysmal atrial fibrillation- Remains in SR 12. Pulmonary HTN 13. Morbid obesity with BMI 40.4 14. dvt ppx- hep sq
[2017-06-21] MEDS: LATANOPROST 0.005% OPHTH SOLN 2.5ML BOTTLE OU SCH (21:35)
[2017-06-21] MEDS: clonazePAM 0.5 MG TABLET PO PRN (21:43)
[2017-06-21] MEDS: INSULIN DETEMIR 100 UNITS/ML MDV SQ SCH (21:44)
[2017-06-21] MEDS ORDERED: hydrALAZINE HCL 50 MG TABLET (FP) PO ONE (22:00)
[2017-06-22] MEDS: ACETAMINOPHEN 325 MG TABLET (FP) PO PRN (02:21)
[2017-06-22] MEDS: hydrALAZINE HCL 50 MG TABLET (FP) PO SCH ×3 (06:04→22:18)
[2017-06-22] MEDS: HEPARIN NA (PORCINE) 5,000 UNITS/ML 1ML VIAL SQ SCH ×3 (06:04→22:19)
[2017-06-22] MEDS: INSULIN SLIDING SCALE (NOVOLOG) 1 VIAL SQ SCH ×4 (06:05→22:19)
[2017-06-22 08:08] LABS: ANION GAP 13 (8-16); CALCIUM 8.7 mg/dL (8.5-10.1); CO2 23 mmol/L (21-32); GLUCOSE,RANDOM 89 mg/dL (74-106)
[2017-06-22 08:13] LABS: CREATININE 3.1 mg/dL (0.55-1.02)
[2017-06-22] MEDS ORDERED: PT OWN MED DRAWER 7, Y5N ONE ×2 (08:58→21:51)
[2017-06-22] MEDS: PRASUGREL HCL 10 MG TAB PO SCH (09:27)
[2017-06-22] MEDS: guaiFENesin/D-METHORPHAN HB 1 EACH TAB.ER.12H PO SCH (09:27)
[2017-06-22] MEDS: FERROUS SO4 325 MG TABLET (FP) PO SCH ×2 (09:27→22:18)
[2017-06-22] MEDS: ASPIRIN 81 MG CHEWABLE TABLETS PO SCH (09:27)
[2017-06-22] MEDS: CARVEDILOL PHOSPHATE CR 10 MG CAPSULE PO SCH (09:27)
[2017-06-22] MEDS: POLYETHYLENE GLYCOL 3350 119 GM BTL PO SCH (09:27)
[2017-06-22] MEDS: predniSONE 20 MG TABLET (UD) PO SCH (09:27)
[2017-06-22] MEDS: PANTOPRAZOLE 40 MG TABLET (FP) PO SCH (09:27)
[2017-06-22] MEDS: BUDESONIDE/FORMETEROL FUMARATE 160/4.5 mcg INHALER IH SCH ×2 (09:27→22:18)
--- NOTE | 2017-06-22 10:45 | PN ---
Progress Note (short form) - Note Progress Note: Renal Follow up for CKD Stage 4 Pt seen and examined at the bedside no acute complaints on IVF no sob, cough, dyspnea, orthopnea making urine no uremic symptoms Vital Signs Temperature 98.3 F 06/22/17 06:00 Pulse Rate 69 06/22/17 06:00 Respiratory Rate 18 06/22/17 06:00 Blood Pressure 169/89 06/22/17 06:00 O2 Sat by Pulse Oximetry (%) 99 06/21/17 21:00 Intake & Output 06/19/17 06/20/17 06/21/17 06/22/17 23:59 23:59 23:59 23:59 Intake Total 850 750 800 840 Output Total 800 Balance 850 750 800 40 Weight 241 lb 4 oz 239 lb 12.8 oz 238 lb 9.6 oz 241 lb Gen: NAD CVS: RRR Lungs: no wheeze, no rales Abd: soft NT/ND, Obese Ext: No edema CBC, BMP 06/20/17 13:03 06/22/17 05:35 Laboratory Tests 06/22/17 05:35 Calcium 8.7 Current Medications Acetaminophen (Tylenol -) 650 mg PO Q4H PRN PRN Reason: FEVER OR PAIN Last Admin: 06/22/17 02:21 Dose: 650 mg Albuterol Sulfate (Ventolin 0.083% Nebulizer Soln -) 1 amp NEB Q4H PRN PRN Reason: SHORT OF BREATH/WHEEZING Last Admin: 06/20/17 11:04 Dose: 1 amp Aspirin (Asa -) 81 mg PO DAILY [facility] Last Admin: 06/22/17 09:27 Dose: 81 mg Budesonide/Formoterol Fumarate (Symbicort 160/4.5mcg -) 2 puff IH BID [facility] Last Admin: 06/22/17 09:27 Dose: 2 puff Carvedilol (Coreg Cr -) 10 mg PO DAILY [facility] Last Admin: 06/22/17 09:27 Dose: 10 mg Clonazepam (Klonopin -) 0.5 mg PO QID PRN PRN Reason: ANXIETY Last Admin: 06/21/17 21:43 Dose: 0.5 mg Clonidine HCl (Catapres Tts Patch -) 0.1 mg TD Q7D@1000 [facility] Last Admin: 06/21/17 11:11 Dose: 0.1 mg Ferrous Sulfate (Feosol -) 325 mg PO BID [facility] Last Admin: 06/22/17 09:27 Dose: 325 mg Guaifenesin (Mucinex Dm -) 1 tablet PO BID [facility] Last Admin: 06/22/17 09:27 Dose: Not Given Heparin Sodium (Porcine) (Heparin -) 5,000 unit SQ TID [facility] Last Admin: 06/22/17 06:04 Dose: 5,000 unit Hydralazine HCl (Apresoline -) 100 mg PO TID [facility] Last Admin: 06/22/17 06:04 Dose: 100 mg Sodium Chloride (1/2 Normal Saline) 1,000 mls @ 60 mls/hr IV ASDIR [facility] Stop: 06/22/17 11:14 Last Admin: 06/21/17 11:36 Dose: 60 mls/hr Insulin Aspart (Novolog Vial Sliding Scale -) 1 vial SQ [facility] PRN Reason: Protocol Last Admin: 06/22/17 06:05 Dose: Not Given Insulin Detemir (Levemir Vial) 40 units SQ HS [facility] Last Admin: 06/21/17 21:44 Dose: 40 units Latanoprost (Xalatan 0.005% Eye Drops -) 1 drop OU HS [facility] Last Admin: 06/21/17 21:35 Dose: 1 drop Nitroglycerin (Nitro-Dur Patch -) 0.2 mg TD DAILY [facility] Last Admin: 06/21/17 11:52 Dose: 0.2 mg Pantoprazole Sodium (Protonix -) 40 mg PO DAILY [facility] Last Admin: 06/22/17 09:27 Dose: 40 mg Polyethylene Glycol (Miralax (For Daily Use) -) 17 gm PO DAILY [facility] Last Admin: 06/22/17 09:27 Dose: 17 grams Prasugrel (Effient -) 10 mg PO DAILY [facility] Last Admin: 06/22/17 09:27 Dose: 10 mg Prednisone (Deltasone -) 20 mg PO DAILY [facility] Last Admin: 06/22/17 09:27 Dose: 20 mg A/p 62 year old woman with PMhx of COPD, Bronchial asthma, Insulin Dependent Diabetes mellitus, Hypertension, Myocardial Infarction, Chronic kidney Disease Stage 4, with a eGFR of 23 ml/min/1.73m2 presented with SOB and admitted for COPD exacerbation. #CKD Stage 4 with subnephrotoic proteinuria Baseline Cr ~2.5 Renal function improving on IVF and off diuretics would continue current IVF for additional 24 hours with monitoring of respiratory status if Cr is improved tomorrow can plan to d/c off diuretics with close outpatient monitoring #COPD exacerbation on oral prednisone and Nebs Clinically improved #Hypertension Goal BP < 140/90 pt is on Coreg and Clonidine BP remains above goal but pt is currently on IVF and has hx of white coat hypertension as reported by [employer] #Hyponatremia from water retention in setting of CKD Serum Na stable Thank you Goyo Cid DO
[2017-06-22] MEDS: NITROGLYCERIN 0.2 MG/HOUR TD PATCH TD SCH ×2 (11:06→13:53)
[2017-06-22] MEDS ORDERED: INSULIN (NOVOLOG) ASPART 100 UNITS/ML 10ML VIAL ONE (11:12)
--- NOTE | 2017-06-22 11:35 | PN ---
Progress Note (short form) - Note Progress Note: s: no cp palps dizzy sob o: Vital Signs Period Temp Pulse Resp BP Sys/Shankar Pulse Ox Last 24 Hr 98.1 F-98.9 F 69-73 18-20 120-189/58-89 99 Constitutional: Yes: No Distress, Calm, Obese Eyes: No: Sclera Icterus Respiratory: Yes: CTA Bilaterally, no Wheezes. No: Accessory Muscle Use, Rales Gastrointestinal: Yes: Normal Bowel Sounds. No: Distention, Hepatomegaly, Palpable Mass, Tenderness Cardiovascular: Yes: Regular Rate and Rhythm JVD: No Heart Sounds: Yes: S1, S2. No: Gallop Murmur: No: Systolic Murmur, Diastolic Murmur Extremities: No: Cold, Cyanosis Edema: No Integumentary: No: Jaundice diaphoresis Neurological: Yes: Alert, Oriented (x3) Psychiatric: No: Agitated - Other Data Labs, Other Data: Current Medications Generic Name Dose Route Start Last Admin Trade Name Freq PRN Reason Stop Dose Admin Acetaminophen 650 mg 06/13/17 21:29 06/22/17 02:21 Tylenol - PO 650 mg Q4H PRN Administration FEVER OR PAIN Albuterol Sulfate 1 amp 06/14/17 13:02 06/20/17 11:04 Ventolin 0.083% Nebulizer Soln - NEB 1 amp Q4H PRN Administration SHORT OF BREATH/WHEEZING Aspirin 81 mg 06/14/17 10:00 06/22/17 09:27 Asa - PO 81 mg DAILY [facility] Administration Budesonide/Formoterol Fumarate 2 puff 06/14/17 08:00 06/22/17 09:27 Symbicort 160/4.5mcg - IH 2 puff BID [facility] Administration Carvedilol 10 mg 06/22/17 10:00 06/22/17 09:27 Coreg Cr - PO 10 mg DAILY [facility] Administration Clonazepam 0.5 mg 06/13/17 21:42 06/21/17 21:43 Klonopin - PO 0.5 mg QID PRN Administration ANXIETY Clonidine HCl 0.1 mg 06/21/17 10:30 06/21/17 11:11 Catapres Tts Patch - TD 0.1 mg Q7D@1000 [facility] Administration Ferrous Sulfate 325 mg 06/14/17 10:00 06/22/17 09:27 Feosol - PO 325 mg BID [facility] Administration Guaifenesin 1 tablet 06/16/17 22:00 06/22/17 09:27 Mucinex Dm - PO Not Given BID [facility] Heparin Sodium (Porcine) 5,000 unit 06/13/17 22:00 06/22/17 06:04 Heparin - SQ 5,000 unit TID [facility] Administration Hydralazine HCl 100 mg 06/18/17 18:30 06/22/17 06:04 Apresoline - PO 100 mg TID [facility] Administration Insulin Aspart 1 vial 06/13/17 22:13 06/22/17 06:05 Novolog Vial Sliding Scale - SQ Not Given ACHS [facility] Protocol Insulin Detemir 40 units 06/16/17 22:00 06/21/17 21:44 Levemir Vial SQ 40 units HS [facility] Administration Latanoprost 1 drop 06/16/17 16:11 06/21/17 21:35 Xalatan 0.005% Eye Drops - OU 1 drop HS [facility] Administration Nitroglycerin 0.2 mg 06/14/17 10:00 06/22/17 11:06 Nitro-Dur Patch - TD Not Given DAILY [facility] Pantoprazole Sodium 40 mg 06/14/17 11:45 06/22/17 09:27 Protonix - PO 40 mg DAILY [facility] Administration Polyethylene Glycol 17 gm 06/17/17 10:00 06/22/17 09:27 Miralax (For Daily Use) - PO 17 grams DAILY [facility] Administration Prasugrel 10 mg 06/14/17 10:00 06/22/17 09:27 Effient - PO 10 mg DAILY [facility] Administration Prednisone 20 mg 06/22/17 08:12 06/22/17 09:27 Deltasone - PO 20 mg DAILY [facility] Administration CBC, BMP 06/20/17 13:03 06/22/17 05:35 Echo 01/15: nl LV/EF; dd2, hi E/e' = hi LAP. nl RV. mild LAE. mild-mod MR, mod TR. mild pHTN (46 mmHg). Echo 09/14/16: Low nl LVEF. RV not well seen. 1+ MR. Echo 03/2015: TDS, normal LV/RVF, no sig valv abn Dobut stress echo 10/2015: 7.34 min. 83% MPHR. HTN response. No EKG changes. TDS apex, portions of AW and basal PW not well seen. No ischemia, appropriate EF augmentation. (post PCI) CXR: clear lungs/pleura ECG x2 here (06/13 and 06/14): NSR, normal axis; LVH with repol; no path q's; no isch ST-Ts Assessment/Plan 61 year old f with known CAD--h/o NSTEMI '13 s/p LAD KAREN PCI 09/2013, and prox LCx KAREN PCI 2014, HTN, lone afib/PSVT, MR, pHTN, KATINA, NAFLD, HPL, CKD, anemia, IDDM who presents to the ED with shortness of breath. chronic diastolic CHF (acute on chronic HFPEF) - hx of "flash" pulmonary edema in the past--felt to be a combo of diast dysf and ischemic heart disease. Dry weight 247-250 lbs. - home dry wt running 241-244 for a while now, wt 238 here on admit - bnp ranges 1600 - 3000s (i.e. the latter when decompensated). 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 Weight down to 241. Continue Torsemide at current dose. Monitor renal function. -06/20: Creat to 3.8. Weight to 239. Hold diuretics given worsening azotemia. 06/22: have been holding diuretics and giving ivfs due to OBI. Cr continues to improve. D/w renal. Plan will be to continue ivfs today and likely can dc home tomorrow if cr continues to improve. Will dc without torsemide and can monitor as outpt to see if needs resumed bronchospasm/asthma, acute exacerbation: -has had increase severity of sx's over past few months, now admitted for same -sxs improved -tx per pmd/pulm HTN: - intolerant of multiple BP meds before--diovan, micardis, verap, norvasc, nifedipine, nisoldipine, catapres patch - home regimen wass coreg CR 20, hydral 25 TID, nitro patch 0.2mg (BUCKNER with higher doses)--only takes hydral prn as her bp is labile and often is symptomatically low with hydral -decreased coreg to 10mg here to see if helps with her recently worsened bronchospasm behavior -hydralazine has been uptitrated to high dose (100 tid here)--suspect will require much lower dose when goes home -cont ntg patch (at max tolerated dose already) -avoid RAAS blockers given labile creatinines and Stage IV CKD--can consider low dose spironolactone (or clorthalidone) later once creat stable (with freq labs f/u) -would not use minoxidil given very labile volume retention behavior -retried clonidine patch 0.1mg here but pt doesn't think she can tolerate due to headaches so may have to dc -pt bp's tend to always run higher when in hosp, praneeth when getting steroids for bronchospasm--improves signif at home -would not recommend overzealous tx of hosp BPs, given she will f/u closely with me after discharge CAD: -s/p prox LCx KAREN PCI 2014 for crescendo angina, prior mLAD stent patent, prior PTCA'ed D2 [place], residual 70-80% distal RCA disease unchanged from prior cath 2012 --left for medical rx -trop 0.3 x4 here--no c/w ACS, due to hi LV filling pressures -ecg non-ischemic -sx's not consistent with ACS--no further w/u indicated - Continue home DAPT with ASA and Effient. cont crestor, coreg, NTG patch. - No ACEI given fluctuating renal function. HPL: - tolerating crestor 10 mg, zetia Myalgias w Atorva/Simva and high dose crestor - LDL >200 at baseline--130s here; same meds - declined PCSK-9 inhibitor trial KATINA / Mod PHTN - compliant with CPAP at home. - diastolic dysfunction likely also contributing to pHTN. ARF / CKD: - baseline creat runs 2.5-2.6, higher here - plan as above Remote PAF and PSVT - lone AF episode in setting of dobutamine, no recurrence. No AC thought to be indicated - same plan
--- NOTE | 2017-06-22 11:36 | PN ---
Teaching Attending Note Name of Resident: Jagdish Quintanilla ATTENDING PHYSICIAN STATEMENT I saw and evaluated the patient. I reviewed the resident's note and discussed the case with the resident. I agree with the resident's findings and plan as documented. SUBJECTIVE:c/o BUCKNER after placement of clonidine patch which she removed and states her BUCKNER has now resolved. no assoc blurred vision or tinnitus. denies CP, SOB,fver, chills, N/V/C/D OBJECTIVE: Last Vital Signs Temp Pulse Resp BP Pulse Ox 98.3 F 69 18 169/89 99 06/22/17 06:00 06/22/17 06:00 06/22/17 06:00 06/22/17 06:00 06/21/17 21:00 General NAD CV S1 S2 RRR no murmur/rub/gallop Lungs CTA B/L no wheezing/rales/rhonchi Extremities non pitting edema ASSESSMENT AND PLAN: 62-year-old woman with a history of chronic diastolic heart failure, type 2 DM, HTN, hyperlipidemia, CAD, CABG, asthma, KATINA, anxiety, pulm HTN, PAF who presented to the ER with a worsening cough. 1. Elevated troponin in a patient with SOB and history of CAD- peaked at 0.32 and trending down. no signs of ACS. Continue home DAPT with ASA and Effient. cont crestor, coreg, NTG patch 2. Acute asthma exacerbation- possible GERD vs anxiety?. improved. saturating well on RA. on po steroids. cont taper per pulmonary. will decrease to 20mg today. nebs prn. cont protonix. nebs prn. saturating well on RA. will attempt to decrease coreg when BP is more controlled. 3.HTN Urgency-improved but above goal. removed clonidine patch herself.will monotr 4. Acute on CKD stage IV- possible medication induced. baseline Cr 2.5-2.6. slow trend down.cont hypotonic saline. if conitnues to trend down can f/u with renal as outpatient. 5. DM- uncontrolled. continues to refuse increase in long acting insulin. claims it will improve as the steroid dose is decreased. will monitor. iss/ levemir 6. CAD, history of stents- Continue aspirin, Coreg, Nitropatch, Crestor, Effient 7. Hyperlipidemia- Continue Crestor 8. Chronic diastolic heart failure- Stable 9. Anxiety- Continue Klonopin as needed 10. KATINA- Continue CPAP at night 11. Paroxysmal atrial fibrillation- Remains in SR 12. Pulmonary HTN 13. Morbid obesity with BMI 40.4 14. dvt ppx- hep sq 15. d/c planning in AM if Cr continues to improve.
--- NOTE | 2017-06-22 13:53 | PN ---
Progress Note (short form) - Note Progress Note: OOB to chair having lunch. Feels much better today. Happy that her creatinine has improved to 3.1 BP is better. Denies CP or SOB. Some residual dry cough. Intake & Output 06/19/17 06/20/17 06/21/17 06/22/17 23:59 23:59 23:59 23:59 Intake Total 850 750 800 840 Output Total 800 Balance 850 750 800 40 Weight 241 lb 4 oz 239 lb 12.8 oz 238 lb 9.6 oz 241 lb Last Vital Signs Temp Pulse Resp BP Pulse Ox 98.2 F 79 18 166/74 99 06/22/17 10:00 06/22/17 10:00 06/22/17 10:00 06/22/17 10:00 06/22/17 09:00 Active Medications Acetaminophen (Tylenol -) 650 mg PO Q4H PRN PRN Reason: FEVER OR PAIN Last Admin: 06/22/17 02:21 Dose: 650 mg Albuterol Sulfate (Ventolin 0.083% Nebulizer Soln -) 1 amp NEB Q4H PRN PRN Reason: SHORT OF BREATH/WHEEZING Last Admin: 06/20/17 11:04 Dose: 1 amp Aspirin (Asa -) [address] [facility] Last Admin: 06/22/17 09:27 Dose: 81 mg Budesonide/Formoterol Fumarate (Symbicort 160/4.5mcg -) [address] [facility] Last Admin: 06/22/17 09:27 Dose: 2 puff Carvedilol (Coreg Cr -) [address] [facility] Last Admin: 06/22/17 09:27 Dose: 10 mg Clonazepam (Klonopin -) 0.5 mg PO QID PRN PRN Reason: ANXIETY Last Admin: 06/21/17 21:43 Dose: 0.5 mg Clonidine HCl (Catapres Tts Patch -) 0.1 mg TD Q7D@1000 [facility] Last Admin: 06/21/17 11:11 Dose: 0.1 mg Ferrous Sulfate (Feosol -) [address] [facility] Last Admin: 06/22/17 09:27 Dose: 325 mg Guaifenesin (Mucinex Dm -) [address] [facility] Last Admin: 06/22/17 09:27 Dose: Not Given Heparin Sodium (Porcine) (Heparin -) 5,[address] [facility] Last Admin: 06/22/17 06:04 Dose: 5,000 unit Hydralazine HCl (Apresoline -) [address] [facility] Last Admin: 06/22/17 06:04 Dose: 100 mg Insulin Aspart (Novolog Vial Sliding Scale -) 1 vial SQ [facility] PRN Reason: Protocol Last Admin: 06/22/17 11:50 Dose: 6 units Insulin Detemir (Levemir Vial) [address] [facility] Last Admin: 06/21/17 21:44 Dose: 40 units Latanoprost (Xalatan 0.005% Eye Drops -) [address] [facility] Last Admin: 06/21/17 21:35 Dose: 1 drop Nitroglycerin (Nitro-Dur Patch -) 0.[address] [facility] Last Admin: 06/22/17 11:06 Dose: Not Given Pantoprazole Sodium (Protonix -) [address] [facility] Last Admin: 06/22/17 09:27 Dose: 40 mg Polyethylene Glycol (Miralax (For Daily Use) -) [address] [facility] Last Admin: 06/22/17 09:27 Dose: 17 grams Prasugrel (Effient -) [address] [facility] Last Admin: 06/22/17 09:27 Dose: 10 mg Prednisone (Deltasone -) [address] [facility] Last Admin: 06/22/17 09:27 Dose: 20 mg Constitutional: Yes: Awake and alert, Obese, NAD Eyes: Yes: WNL HENT: Yes: WNL Neck: Yes: WNL Cardiovascular: Yes: Regular Rate and Rhythm, S1, S2 Respiratory: Yes: Few scattered rhonchi, no wheezing Gastrointestinal: Yes: Normal Bowel Sounds, Soft Extremities: Yes: WNL Edema: Yes Labs: Laboratory Results - last 24 hr 06/21/17 06/21/17 06/22/17 16:53 21:34 01:30 Sodium Potassium Chloride Carbon Dioxide Anion Gap BUN Creatinine POC Glucometer 327 313 Random Glucose Calcium Ur Random Urea Nitrogn 669 Urine Creatinine 06/22/17 06/22/17 06/22/17 01:30 05:35 05:57 Sodium 134 L Potassium 4.7 Chloride 98 Carbon Dioxide 23 Anion Gap 13 BUN 109 H* Creatinine 3.1 H POC Glucometer 97 Random Glucose 89 Calcium 8.7 Ur Random Urea Nitrogn Urine Creatinine 39.5 06/22/17 11:03 Sodium Potassium Chloride Carbon Dioxide Anion Gap BUN Creatinine POC Glucometer 261 Random Glucose Calcium Ur Random Urea Nitrogn Urine Creatinine Problem List - Problems (1) Asthma exacerbation Code(s): J45.901 - UNSPECIFIED ASTHMA WITH (ACUTE) EXACERBATION (2) HTN (hypertension) Code(s): I10 - ESSENTIAL (PRIMARY) HYPERTENSION Qualifiers: Hypertension type: unspecified secondary hypertension Qualified Code(s) : I15.9 - Secondary hypertension, unspecified; I15 - Secondary hypertension (3) Anemia Code(s): D64.9 - ANEMIA, UNSPECIFIED (4) IDDM (insulin dependent diabetes mellitus) Code(s): E11.9 - TYPE 2 DIABETES MELLITUS WITHOUT COMPLICATIONS Z79.4 - MANUFACTURING LEAD (CURRENT) USE OF INSULIN (5) ASHD (arteriosclerotic heart disease) Code(s): I25.10 - ATHSCL HEART DISEASE OF [place] CORONARY ARTERY W/O ANG PCTRS (6) Sleep apnea, obstructive Code(s): G47.33 - OBSTRUCTIVE SLEEP APNEA (ADULT) (PEDIATRIC) Assessment/Plan IMP CHRONIC PERSISTENT ASTHMA WITH ACUTE EXACERBATION CLINICALLY IMPROVING ASHD S/P STENT ELEVATED TROPONIN S/P [place] IDDM KATINA ON CPAP 11cm/h20 HTN ACUTE ON CHRONIC RENAL FAILURE WORSENING PLAN PREDNISONE INHALED BRONCHODILATTORS NASAL O2 MONITOR PEAK FLOW ROBITUSSIN MONITOR LYTE,RENAL FUNCTION BP CONTROL DR FOOTE
--- NOTE | 2017-06-22 14:07 | PN ---
Physical Exam: SUBJECTIVE: Patient seen and examined. She states that she feels much better than yesterday with no new complaints. She denies cough, chest pain, dizziness, weakness or pain. OBJECTIVE: Vital Signs Period Temp Pulse Resp BP Sys/Shankar Pulse Ox Last 24 Hr 98.1 F-98.3 F 69-79 18-20 166-189/73-89 99-99 GENERAL: The patient is awake, alert, and fully oriented, in no acute distress. HEAD: Normal with no signs of trauma. LUNGS: Breath sounds equal, clear to auscultation bilaterally, no wheezes, no crackles, no accessory muscle use. HEART: Regular rate and rhythm, S1, S2 without murmur, rub or gallop. ABDOMEN: Soft, nontender, nondistended, normoactive bowel sounds, no guarding, no rebound, no hepatosplenomegaly, no masses. EXTREMITIES: 2+ pulses, warm, well-perfused, no edema. PSYCH: Normal mood, normal affect. SKIN: Warm, dry, normal turgor, no rashes or lesions noted Laboratory Results - last 24 hr 06/21/17 06/21/17 06/22/17 16:53 21:34 01:30 Sodium Potassium Chloride Carbon Dioxide Anion Gap BUN Creatinine POC Glucometer 327 313 Random Glucose Calcium Ur Random Urea Nitrogn 669 Urine Creatinine 06/22/17 06/22/17 06/22/17 01:30 05:35 05:57 Sodium 134 L Potassium 4.7 Chloride 98 Carbon Dioxide 23 Anion Gap 13 BUN 109 H* Creatinine 3.1 H POC Glucometer 97 Random Glucose 89 Calcium 8.7 Ur Random Urea Nitrogn Urine Creatinine 39.5 06/22/17 11:03 Sodium Potassium Chloride Carbon Dioxide Anion Gap BUN Creatinine POC Glucometer 261 Random Glucose Calcium Ur Random Urea Nitrogn Urine Creatinine Active Medications Generic Name Dose Route Start Last Admin Trade Name Freq PRN Reason Stop Dose Admin Acetaminophen 650 mg 06/13/17 21:29 06/22/17 02:21 Tylenol - PO 650 mg Q4H PRN Administration FEVER OR PAIN Albuterol Sulfate 1 amp 06/14/17 13:02 06/20/17 11:04 Ventolin 0.083% Nebulizer Soln - NEB 1 amp Q4H PRN Administration SHORT OF BREATH/WHEEZING Aspirin 81 mg 06/14/17 10:00 06/22/17 09:27 Asa - PO 81 mg DAILY LALO Administration Budesonide/Formoterol Fumarate 2 puff 06/14/17 08:00 06/22/17 09:27 Symbicort 160/4.5mcg - IH 2 puff BID LALO Administration Carvedilol 10 mg 06/22/17 10:00 06/22/17 09:27 Coreg Cr - PO 10 mg DAILY LALO Administration Clonazepam 0.5 mg 06/13/17 21:42 06/21/17 21:43 Klonopin - PO 0.5 mg QID PRN Administration ANXIETY Clonidine HCl 0.1 mg 06/21/17 10:30 06/21/17 11:11 Catapres Tts Patch - TD 0.1 mg Q7D@1000 LALO Administration Ferrous Sulfate 325 mg 06/14/17 10:00 06/22/17 09:27 Feosol - PO 325 mg BID LALO Administration Guaifenesin 1 tablet 06/16/17 22:00 06/22/17 09:27 Mucinex Dm - PO Not Given BID LALO Heparin Sodium (Porcine) 5,000 unit 06/13/17 22:00 06/22/17 13:53 Heparin - SQ 5,000 unit TID LALO Administration Hydralazine HCl 100 mg 06/18/17 18:30 06/22/17 13:53 Apresoline - PO 100 mg TID LALO Administration Insulin Aspart 1 vial 06/13/17 22:13 06/22/17 11:50 Novolog Vial Sliding Scale - SQ 6 units ACHS LALO Administration Protocol Insulin Detemir 40 units 06/16/17 22:00 06/21/17 21:44 Levemir Vial SQ 40 units HS LALO Administration Latanoprost 1 drop 06/16/17 16:11 06/21/17 21:35 Xalatan 0.005% Eye Drops - OU 1 drop HS LALO Administration Nitroglycerin 0.2 mg 06/14/17 10:00 06/22/17 13:53 Nitro-Dur Patch - TD 0.2 mg DAILY LALO Administration Pantoprazole Sodium 40 mg 06/14/17 11:45 06/22/17 09:27 Protonix - PO 40 mg DAILY LALO Administration Polyethylene Glycol 17 gm 06/17/17 10:00 06/22/17 09:27 Miralax (For Daily Use) - PO 17 grams DAILY LALO Administration Prasugrel 10 mg 06/14/17 10:00 06/22/17 09:27 Effient - PO 10 mg DAILY LALO Administration Prednisone 20 mg 06/22/17 08:12 06/22/17 09:27 Deltasone - PO 20 mg DAILY LALO Administration ASSESSMENT/PLAN: 62 yo F with PMH of CHF, IDDM, HTN, CAD(S/p CABG x 2 stents), asthma, and anxiety presented to the ED with 1 week history of cough found to have elevated trop of 0.32 and was admitted to r/o ACS. # HTN - acute exacerbation of HTN likely due to steroids * 169/89 * monitor BP * Continue coreg 10 mg po daily * Continue Hydralazine 100 mg PO TID * Continue nitroglycerin patch 0.2 mg * Received clonidine 0.1 mg this morning * Prasugrel 10MG Daily #- OBI on Chronic kidney disease, stage 4 likely due to steroids and diuretics. * Cr base line around 3 * today Cr 3.5 * Avoid nephrotoxins * As per Dr. Cid, continue fluids: 11/30 Ns @ 60CC for 24 hours. #- Cough - Likely due to asthma * Improving * Continue Home meds Albuterol Neb Q 4H and symbicort 2 IH PO BID * Continue Prednisone 20 mg PO daily, will taper. (decreased from 30mg yesterday ) * Continue Protonix 40 mg PO daily to rule out GERD as cause of cough. (will trial PPI for 2 weeks) #- IDDM, chronic- current elevated BGM likely due to steroids * BGM * ISS * Increased Levemir to 40 units HS * Diabetic Diet # Anxiety , chronic * Continue home meds Clonazepam 0.5 mg PO QID PRN #- DVT Proph, medium * Heparin 5000 unit SQ TID Visit type - Emergency Visit Emergency Visit: No - New Patient This patient is new to me today: Yes Date on this admission: 06/22/17 - Critical Care Critical Care patient: No
[2017-06-22] MEDS ORDERED: SODIUM CHLORIDE 0.45% 1,000 ML IV SCH (14:30)
[2017-06-22] MEDS: clonazePAM 0.5 MG TABLET PO PRN (22:18)
[2017-06-22] MEDS: LATANOPROST 0.005% OPHTH SOLN 2.5ML BOTTLE OU SCH (22:18)
[2017-06-22] MEDS: INSULIN DETEMIR 100 UNITS/ML MDV SQ SCH (22:19)
[2017-06-23] MEDS: guaiFENesin/D-METHORPHAN HB 1 EACH TAB.ER.12H PO SCH ×2 (05:58→10:16)
[2017-06-23] MEDS: INSULIN SLIDING SCALE (NOVOLOG) 1 VIAL SQ SCH ×2 (06:00→12:01)
[2017-06-23] MEDS: hydrALAZINE HCL 50 MG TABLET (FP) PO SCH ×2 (06:01→14:44)
[2017-06-23] MEDS: HEPARIN NA (PORCINE) 5,000 UNITS/ML 1ML VIAL SQ SCH ×2 (06:02→14:43)
[2017-06-23 09:14] LABS: ANION GAP 13 (8-16); CALCIUM 8.5 mg/dL (8.5-10.1); CO2 22 mmol/L (21-32); GLUCOSE,RANDOM 108 mg/dL (74-106)
[2017-06-23 09:15] LABS: CREATININE 2.9 mg/dL (0.55-1.02)
[2017-06-23] MEDS: ALBUTEROL SO4 0.083% IH SOL 2.5 MG/3 ML VIAL.NEB. NEB PRN (09:40)
[2017-06-23] MEDS ORDERED: PT OWN MED DRAWER 7, Y5N ONE ×3 (09:47→16:08)
[2017-06-23 10:11] VITALS: BP 173/73; PULSE 76; TEMP 98.2
[2017-06-23] MEDS: ASPIRIN 81 MG CHEWABLE TABLETS PO SCH (10:12)
[2017-06-23] MEDS: FERROUS SO4 325 MG TABLET (FP) PO SCH (10:12)
[2017-06-23] MEDS: PANTOPRAZOLE 40 MG TABLET (FP) PO SCH (10:12)
[2017-06-23] MEDS: predniSONE 20 MG TABLET (UD) PO SCH (10:12)
[2017-06-23] MEDS: PRASUGREL HCL 10 MG TAB PO SCH (10:13)
[2017-06-23] MEDS: POLYETHYLENE GLYCOL 3350 119 GM BTL PO SCH (10:13)
[2017-06-23] MEDS: CARVEDILOL PHOSPHATE CR 10 MG CAPSULE PO SCH (10:13)
[2017-06-23] MEDS: BUDESONIDE/FORMETEROL FUMARATE 160/4.5 mcg INHALER IH SCH (10:14)
--- NOTE | 2017-06-23 10:17 | PN ---
Progress Note (short form) - Note Progress Note: PULMONARY OOB TO CHAIR FEELS WELL OFFERS NO COMPLAINTS VSS/AFEBRILE ANICTERIC CLEAR S1S2 BS+ OBESE 1+EDEMA LABS/MEDS/NOTES/IMAGING/MICRO REVIEWED IMP CHRONIC PERSISTENT ASTHMA WITH ACUTE EXACERBATION RESOLVED ASHD S/P STENT ELEVATED TROPONIN S/P FL IDDM KATINA ON CPAP 11cm/h20 HTN ACUTE ON CHRONIC RENAL FAILURE IMPROVED PLAN PREDNISONE TO TAPER OUTPATIENT INHALED BRONCHODILATORS SYSTOLIC BP CONTROL F/U RENAL FUNCTION OUTPATIENT Omayra LONG MD
--- NOTE | 2017-06-23 11:11 | PN ---
Progress Note (short form) - Note Progress Note: s: no cp palps dizzy sob, back to baseline, ready to go home o: Vital Signs Period Temp Pulse Resp BP Sys/Shankar Pulse Ox Last 24 Hr 98.2 F-98.4 F 64-99 18-20 155-173/69-78 98-99 Constitutional: Yes: No Distress, Calm, Obese Eyes: No: Sclera Icterus Respiratory: Yes: CTA Bilaterally, no Wheezes. No: Accessory Muscle Use, Rales Gastrointestinal: Yes: Normal Bowel Sounds. No: Distention, Hepatomegaly, Palpable Mass, Tenderness Cardiovascular: Yes: Regular Rate and Rhythm JVD: No Heart Sounds: Yes: S1, S2. No: Gallop Murmur: No: Systolic Murmur, Diastolic Murmur Extremities: No: Cold, Cyanosis Edema: No Integumentary: No: Jaundice diaphoresis Neurological: Yes: Alert, Oriented (x3) Psychiatric: No: Agitated - Other Data Labs, Other Data: Current Medications Generic Name Dose Route Start Last Admin Trade Name Freq PRN Reason Stop Dose Admin Acetaminophen 650 mg 06/13/17 21:29 06/22/17 02:21 Tylenol - PO 650 mg Q4H PRN Administration FEVER OR PAIN Albuterol Sulfate 1 amp 06/14/17 13:02 06/23/17 09:40 Ventolin 0.083% Nebulizer Soln - NEB 1 amp Q4H PRN Administration SHORT OF BREATH/WHEEZING Aspirin 81 mg 06/14/17 10:00 06/23/17 10:12 Asa - PO 81 mg DAILY LALO Administration Budesonide/Formoterol Fumarate 2 puff 06/14/17 08:00 06/23/17 10:14 Symbicort 160/4.5mcg - IH 2 puff BID LALO Administration Carvedilol 10 mg 06/22/17 10:00 06/23/17 10:13 Coreg Cr - PO 10 mg DAILY LALO Administration Clonazepam 0.5 mg 06/13/17 21:42 06/22/17 22:18 Klonopin - PO 0.5 mg QID PRN Administration ANXIETY Clonidine HCl 0.1 mg 06/21/17 10:30 06/21/17 11:11 Catapres Tts Patch - TD 0.1 mg Q7D@1000 LALO Administration Ferrous Sulfate 325 mg 06/14/17 10:00 06/23/17 10:12 Feosol - PO 325 mg BID LALO Administration Guaifenesin 1 tablet 06/16/17 22:00 06/23/17 10:16 Mucinex Dm - PO Not Given BID LALO Heparin Sodium (Porcine) 5,000 unit 06/13/17 22:00 06/23/17 06:02 Heparin - SQ 5,000 unit TID LALO Administration Hydralazine HCl 100 mg 06/18/17 18:30 06/23/17 06:01 Apresoline - PO 100 mg TID LALO Administration Sodium Chloride 1,000 mls @ 60 mls/hr 06/22/17 14:30 06/22/17 14:30 1/2 Normal Saline IV 06/23/17 14:29 60 mls/hr ASDIR LALO Administration Insulin Aspart 1 vial 06/13/17 22:13 06/23/17 06:00 Novolog Vial Sliding Scale - SQ Not Given ACHS [facility] Protocol Insulin Detemir 40 units 06/16/17 22:00 06/22/17 22:19 Levemir Vial SQ 40 units HS LALO Administration Latanoprost 1 drop 06/16/17 16:11 06/22/17 22:18 Xalatan 0.005% Eye Drops - OU 1 drop HS LALO Administration Nitroglycerin 0.2 mg 06/14/17 10:00 06/22/17 13:53 Nitro-Dur Patch - TD 0.2 mg DAILY LALO Administration Pantoprazole Sodium 40 mg 06/14/17 11:45 06/23/17 10:12 Protonix - PO 40 mg DAILY LALO Administration Polyethylene Glycol 17 gm 06/17/17 10:00 06/23/17 10:13 Miralax (For Daily Use) - PO 17 grams DAILY LALO Administration Prasugrel 10 mg 06/14/17 10:00 06/23/17 10:13 Effient - PO 10 mg DAILY LALO Administration Prednisone 20 mg 06/22/17 08:12 06/23/17 10:12 Deltasone - PO 20 mg DAILY LALO Administration CBC, BMP 06/20/17 13:03 06/23/17 06:40 Echo 01/15: nl LV/EF; dd2, hi E/e' = hi LAP. nl RV. mild LAE. mild-mod MR, mod TR. mild pHTN (46 mmHg). Echo 09/14/16: Low nl LVEF. RV not well seen. 1+ MR. Echo 03/2015: TDS, normal LV/RVF, no sig valv abn Dobut stress echo 10/2015: 7.34 min. 83% MPHR. HTN response. No EKG changes. TDS apex, portions of AW and basal PW not well seen. No ischemia, appropriate EF augmentation. (post PCI) CXR: clear lungs/pleura ECG x2 here (06/13 and 06/14): NSR, normal axis; LVH with repol; no path q's; no isch ST-Ts Assessment/Plan 61 year old f with known CAD--h/o NSTEMI '13 s/p LAD KAREN PCI 09/2013, and prox LCx KAREN PCI 2014, HTN, lone afib/PSVT, MR, pHTN, KATINA, NAFLD, HPL, CKD, anemia, IDDM who presents to the ED with shortness of breath. chronic diastolic CHF (acute on chronic HFPEF) - hx of "flash" pulmonary edema in the past--felt to be a combo of diast dysf and ischemic heart disease. Dry weight 247-250 lbs. - home dry wt running 241-244 for a while now, wt 238 here on admit - bnp ranges 1600 - 3000s (i.e. the latter when decompensated). currently 1700 - Pulm pressure and wedge nitro-sensitive in catheter builder so cont nitro as well ( can only tolerate low dose patch due to HAs) - cont home po torsemide, monitor for increasing vol with iv steroids, stable so far -06/19: Creat up to 3.6. Weight down to 241. Continue Torsemide at current dose. Monitor renal function. -06/20: Creat to 3.8. Weight to 239. Hold diuretics given worsening azotemia. 06/22: have been holding diuretics and giving ivfs due to OBI. Cr continues to improve. D/w renal. Plan will be to continue ivfs today and likely can dc home tomorrow if cr continues to improve. 06/23: cr improved with ivfs, no signs vol overload. Ok for dc from cardiac pov. Will dc without torsemide and can monitor as outpt to see if needs resumed bronchospasm/asthma, acute exacerbation: -has had increase severity of sx's over past few months, now admitted for same -sxs improved -tx per pmd/pulm HTN: - intolerant of multiple BP meds before--diovan, micardis, verap, norvasc, nifedipine, nisoldipine, catapres patch - home regimen wass coreg CR 20, hydral 25 TID, nitro patch 0.2mg (BUCKNER with higher doses)--only takes hydral prn as her bp is labile and often is symptomatically low with hydral -decreased coreg to 10mg here to see if helps with her recently worsened bronchospasm behavior -hydralazine has been uptitrated to high dose (100 tid here)--suspect will require much lower dose when goes home -cont ntg patch (at max tolerated dose already) -avoid RAAS blockers given labile creatinines and Stage IV CKD--can consider low dose spironolactone (or clorthalidone) later once creat stable (with freq labs f/u) -would not use minoxidil given very labile volume retention behavior -retried clonidine patch 0.1mg here but pt could not tolerate due to headaches -pt bp's tend to always run higher when in hosp, praneeth when getting steroids for bronchospasm--improves signif at home. Can dc on coreg 10 and hydralazine 50 tid with outpt f/u for dose adjustment. CAD: -s/p prox LCx KAREN PCI 2014 for crescendo angina, prior mLAD stent patent, prior PTCA'ed D2 [place], residual 70-80% distal RCA disease unchanged from prior cath 2012 --left for medical rx -trop 0.3 x4 here--no c/w ACS, due to hi LV filling pressures -ecg non-ischemic -sx's not consistent with ACS--no further w/u indicated - Continue home DAPT with ASA and Effient. cont crestor, coreg, NTG patch. - No ACEI given fluctuating renal function. HPL: - tolerating crestor 10 mg, zetia Myalgias w Atorva/Simva and high dose crestor - LDL >200 at baseline--130s here; same meds - declined PCSK-9 inhibitor trial KATINA / Mod PHTN - compliant with CPAP at home. - diastolic dysfunction likely also contributing to pHTN. ARF / CKD: - baseline creat runs 2.5-2.6, higher here but has been improving with ivfs - plan as above Remote PAF and PSVT - lone AF episode in setting of dobutamine, no recurrence. No AC thought to be indicated - same plan
--- NOTE | 2017-06-23 11:30 | PN ---
Progress Note (short form) - Note Progress Note: Renal Follow up for CKD Stage 4 Pt seen and examined at the bedside feels well denies any sob, chest pain abd pain, N/V/D legs not swollen on IVF Vital Signs Temperature 98.2 F 06/23/17 10:07 Pulse Rate 76 06/23/17 10:07 Respiratory Rate 20 06/23/17 10:07 Blood Pressure 173/73 06/23/17 10:07 O2 Sat by Pulse Oximetry (%) 98 06/23/17 09:10 Intake & Output 06/20/17 06/21/17 06/22/17 06/23/17 23:59 23:59 23:59 23:59 Intake Total 750 800 840 940 Output Total 800 Balance 750 800 40 940 Weight 239 lb 12.8 oz 238 lb 9.6 oz 241 lb 243 lb 6.4 oz Gen: NAD CVS: RRR Lungs: no wheeze, no rales Abd: soft NT/ND, Obese Ext: No edema CBC, BMP 06/20/17 13:03 06/23/17 06:40 Current Medications Acetaminophen (Tylenol -) 650 mg PO Q4H PRN PRN Reason: FEVER OR PAIN Last Admin: 06/22/17 02:21 Dose: 650 mg Albuterol Sulfate (Ventolin 0.083% Nebulizer Soln -) 1 amp NEB Q4H PRN PRN Reason: SHORT OF BREATH/WHEEZING Last Admin: 06/23/17 09:40 Dose: 1 amp Aspirin (Asa -) 81 mg PO DAILY [facility] Last Admin: 06/23/17 10:12 Dose: 81 mg Budesonide/Formoterol Fumarate (Symbicort 160/4.5mcg -) 2 puff IH BID [facility] Last Admin: 06/23/17 10:14 Dose: 2 puff Carvedilol (Coreg Cr -) 10 mg PO DAILY [facility] Last Admin: 06/23/17 10:13 Dose: 10 mg Clonazepam (Klonopin -) 0.5 mg PO QID PRN PRN Reason: ANXIETY Last Admin: 06/22/17 22:18 Dose: 0.5 mg Clonidine HCl (Catapres Tts Patch -) 0.1 mg TD Q7D@1000 [facility] Last Admin: 06/21/17 11:11 Dose: 0.1 mg Ferrous Sulfate (Feosol -) 325 mg PO BID [facility] Last Admin: 06/23/17 10:12 Dose: 325 mg Guaifenesin (Mucinex Dm -) 1 tablet PO BID [facility] Last Admin: 06/23/17 10:16 Dose: Not Given Heparin Sodium (Porcine) (Heparin -) 5,000 unit SQ TID [facility] Last Admin: 06/23/17 06:02 Dose: 5,000 unit Hydralazine HCl (Apresoline -) 100 mg PO TID [facility] Last Admin: 06/23/17 06:01 Dose: 100 mg Sodium Chloride (1/2 Normal Saline) 1,000 mls @ 60 mls/hr IV ASDIR [facility] Stop: 06/23/17 14:29 Last Admin: 06/22/17 14:30 Dose: 60 mls/hr Insulin Aspart (Novolog Vial Sliding Scale -) 1 vial SQ ACHS [facility] PRN Reason: Protocol Last Admin: 06/23/17 06:00 Dose: Not Given Insulin Detemir (Levemir Vial) 40 units SQ HS [facility] Last Admin: 06/22/17 22:19 Dose: 40 units Latanoprost (Xalatan 0.005% Eye Drops -) 1 drop OU HS [facility] Last Admin: 06/22/17 22:18 Dose: 1 drop Nitroglycerin (Nitro-Dur Patch -) 0.2 mg TD DAILY [facility] Last Admin: 06/22/17 13:53 Dose: 0.2 mg Pantoprazole Sodium (Protonix -) 40 mg PO DAILY [facility] Last Admin: 06/23/17 10:12 Dose: 40 mg Polyethylene Glycol (Miralax (For Daily Use) -) 17 gm PO DAILY [facility] Last Admin: 06/23/17 10:13 Dose: 17 grams Prasugrel (Effient -) 10 mg PO DAILY [facility] Last Admin: 06/23/17 10:13 Dose: 10 mg Prednisone (Deltasone -) 20 mg PO DAILY [facility] Last Admin: 06/23/17 10:12 Dose: 20 mg A/p 62 year old woman with PMhx of COPD, Bronchial asthma, Insulin Dependent Diabetes mellitus, Hypertension, Myocardial Infarction, Chronic kidney Disease Stage 4, with a eGFR of 23 ml/min/1.73m2 presented with SOB and admitted for COPD exacerbation. #OBI on CKD Stage 4 with subnephrotoic proteinuria Baseline Cr ~2.5 Renal function with further improvement on IVF can stop IVF now, would not resume torsemide at this time pt is stable to be discharged with outpatient follow up in 5 days advised to check weights daily will eventually need to back on her diuretic no indication for SENIOR BIOSTATISTICIAN at the present time #COPD exacerbation on oral prednisone and Nebs Clinically improved #Hypertension Goal BP < 140/90 pt is on Coreg and Clonidine Titrate BP meds as an outpatient #Hyponatremia from water retention in setting of CKD Serum Na stable Thank you Goyo Cid DO
--- NOTE | 2017-06-23 11:45 | PN ---
Teaching Attending Note Name of Resident: Keyur Jimenez ATTENDING PHYSICIAN STATEMENT I saw and evaluated the patient. I reviewed the resident's note and discussed the case with the resident. I agree with the resident's findings and plan as documented. SUBJECTIVE:BUCKNER has resolved since removal of clonidine patch. denies CP, SOB, fever, chills, N/V/C/D, cough, blurred vision OBJECTIVE: Last Vital Signs Temp Pulse Resp BP Pulse Ox 98.2 F 76 20 173/73 98 06/23/17 10:07 06/23/17 10:07 06/23/17 10:07 06/23/17 10:07 06/23/17 09:10 General NAD CV S1 S2 RRR no murmur/rub/gallop Lungs CTA B/L no wheezing/rales/rhonchi Extremities non pitting edema ASSESSMENT AND PLAN: 62-year-old woman with a history of chronic diastolic heart failure, type 2 DM, HTN, hyperlipidemia, CAD, CABG, asthma, KATINA, anxiety, pulm HTN, PAF who presented to the ER with a worsening cough. 1. Elevated troponin in a patient with SOB and history of CAD- peaked at 0.32 and trending down. no signs of ACS. Continue home DAPT with ASA and Effient. cont crestor, coreg, NTG patch 2. Acute asthma exacerbation- possible GERD vs anxiety? controlled. on pred 20mg x2 days. will d/w pulmonary for duration vs stopping and foolowing up. coreg now at lower dose. albuterol prn 3.HTN Urgency-improved but above goal. asymptomatic. likely to improve as steroids are removed. +white coat syndrome. instructed pt to check BP daily and follow up with cardiology. 4. Acute on CKD stage IV- possible medication induced. baseline Cr 2.5-2.6. conitnues to improve on hypototnic saline. will need to f/u with nephrology as outpatient. no indication for TOOL OPERATOR. 5. DM- improved. instructed to log sugars and bring to PMD. acknowledges symptoms of hypo/hyperglycemia. instructed her to be careful with dosing of insulin over the next few days. instructed to resume home dosing. check sugars 4x/daily 6. CAD, history of stents- Continue aspirin, Coreg, Nitropatch, Crestor, Effient 7. Hyperlipidemia- Continue Crestor 8. Chronic diastolic heart failure- Stable 9. Anxiety- Continue Klonopin as needed 10. KATINA- Continue CPAP at night 11. Paroxysmal atrial fibrillation- Remains in SR 12. Pulmonary HTN 13. Morbid obesity with BMI 40.4 14. dvt ppx- hep sq 15. d/c home
[2017-06-23] MEDS ORDERED: INSULIN (NOVOLOG) ASPART 100 UNITS/ML 10ML VIAL ONE (11:58)
[2017-06-23] MEDS: NITROGLYCERIN 0.2 MG/HOUR TD PATCH TD SCH (12:16)
--- NOTE | 2017-06-23 14:02 | DS ---
Physical Exam: LABS Laboratory Tests 06/13/17 06/13/17 06/13/17 15:32 15:32 22:30 WBC 7.2 Creatinine 2.9 H Random Glucose 172 H D Troponin I 0.32 H 0.31 H 06/13/17 06/14/17 06/14/17 23:00 06:00 06:00 WBC 7.3 Creatinine 2.9 H 2.8 H Random Glucose 313 H* D 122 H D Troponin I 0.31 H 06/15/17 06/15/17 06/16/17 05:35 05:35 05:48 WBC 9.5 D Creatinine 2.9 H 3.4 H Random Glucose 302 H* D 304 H* Troponin I 06/16/17 06/17/17 06/17/17 05:48 05:35 05:35 WBC 16.1 H D 15.8 H Creatinine 3.3 H Random Glucose 249 H Troponin I 06/18/17 06/18/17 06/19/17 05:35 05:35 05:45 WBC 15.5 H Creatinine 3.4 H 3.6 H Random Glucose 228 H 301 H* D Troponin I 06/20/17 06/21/17 06/22/17 06:05 06:10 05:35 WBC Creatinine 3.8 H 3.5 H 3.1 H Random Glucose 205 H D 105 D 89 Troponin I 06/23/17 06:40 WBC Creatinine 2.9 H Random Glucose 108 H D Troponin I Last Vital Signs Temp Pulse Resp BP Pulse Ox 98.2 F 76 20 173/73 98 06/23/17 10:07 06/23/17 10:07 06/23/17 10:07 06/23/17 10:07 06/23/17 09:10 Selected Entries 06/14/17 06/15/17 06/17/17 09:25 13:00 06:00 Blood Pressure 170/70 154/82 163/78 06/18/17 06/19/17 06/19/17 18:35 05:00 18:00 Blood Pressure 199/91 205/87 143/62 06/20/17 06/23/17 18:11 10:07 Blood Pressure 193/71 173/73 06/13 CXR- No evidence of active pulmonary disease 06/15 CXR- No evidence of active pulmonary disease or pleural effusion 06/16 Modified Barium Swallow- Normal swallowing study HOSPITAL COURSE: Date of Admission:06/15/17 Date of Discharge: 06/23/17 PRE-HOSPITAL COURSE 62 F with pmhx of IDDM, Asthma, [place] (2013 s/p Stent X2), HTN, afib/PVST, KATINA, MR , CKD, anemia, CHF presented to the ED for 2 week history of cough associated with whitish sputum, worsening orthopnea, and shortness of breath.. She stated she was dusting and mowing her grass, which exacerbated her coughing. Patient had been using her albuterol inhaler every 4 hours in the day prior to her admission. Patient was last admitted for asthma exacerbation in 08/2016. ED COURSE In the ED, patient was found to have elevated troponins to 0.32. EKG showed no evidence of ischemia. She was placed into obs for r/o ACS. HOSPITAL COURSE- Patient's repeat troponins trended down to 0.31 and 0.30 and ACS was ruled out. However, patient continued to have worsening cough while eating. Patient was admitted for acute asthma exacerbation. She was started on IV solumederol, symbicort, and albuterol. She was also started on PO protonix for possible GERD. She had a swallow evaluation, which showed no evidence of dysphagia or aspiration. Patient was slowly transitioned to PO steroids as she improved, which were tapered. During this admission, patient also found to have hypertensive urgency, which was likely steroid induced vs white coat HTN. Patient's HTN improved as we adjusted her medications, but was still elevated above her goal. She also had acute on chronic CKD. Her creatinine omar likely due to medications she was receiving (steroids, demedex). With the removal of those medications and gentle hydration, her creatinine improved. She also had elevated sugars during this admission. Patient is very compliant at home with checking her sugars 4x/day. Her sugars omar likely due to the steroids. We increased her levemir to 40 units at night. POST-HOSPITAL PLAN- Patient was discharged home with instructions to follow up with her real estate sales associate, csr technician, PCP, and dispatcher tugboat. She was sent home on a 9 day steroid taper. She was told to check her blood sugars at home and that they may remain high for a few days while she tapers her steroids. She was informed to log her sugars and bring them to her PCP's office. Patient was told to stop her torsemide and take hydralazine 50 mg by mouth 3x/day. She was told to check her BP at home and keep a record to bring to her cardiologists office. She was also told to take 6 more days of protonix to complete a 2 week course. Minutes to complete discharge: 30 Discharge Summary Reason For Visit: ELEVATED TROPONIN 1 LEVEL Current Active Problems Acute on chronic kidney failure (Acute) Asthma exacerbation (Acute) Elevated troponin I level (Acute) Anxiety (Chronic) CHF (congestive heart failure) (Chronic) HLD (hyperlipidemia) (Chronic) HTN (hypertension) (Chronic) IDDM (insulin dependent diabetes mellitus) (Chronic) Sleep apnea, obstructive (Chronic) Condition: Improved - Instructions Diet, Activity, Other Instructions: You were in the hospital due to an asthma exacerbation. You were further monitored due to your worsening kidney function which is now improving. Please follow up with your primary care provider within 1 week Please follow up with Dr. Chen within 1 week. Check your blood pressures at home and keep a record. Dr. Chen can evaluate if you need to adjust your medications. Please follow up with Dr. Rosen within 1 week Please follow up with Dr. Cid within 1 week. If you continue to have reflux symptoms, please follow up with a hand i tube bender. We have provided a referral for you. Check your blood sugars at home. Your sugars may remain high for a few days while you continue your steroids. Keep a log of your sugars and bring them with you to your doctors appointment Please stop the following medications: -Torsemide 20 mg by mouth daily Please take Hydalazine 50 mg by mouth three times per day Please follow this schedule to taper your steroids: 06/24- Prednisone 20 mg (2 tablets) 06/25- Prednisone 20 mg (2 tablets) 06/26- Prednisone 20 mg (2 tablets) 06/27- Prednisone 20 mg (2 tablets) 06/28- Prednisone 10 mg (1 tablet) 06/29- Prednisone 10 mg (1 tablet) 06/30- Prednisone 10 mg (1 tablet) 07/01- Prednisone 10 mg (1 tablet) 07/02- Prednisone 10 mg (1 tablet) 07/03- STOP Continue taking the following medications: -Albuterol Nebulizer 1 amp as needed -Symbicort 2 inhalations twice a day -Aspirin 81 mg by mouth daily -Effient 10 mg by mouth daily -Nitroglycerin 0.2 mg patch daily -Coreg Cr 20 mg by mouth daily -Crestor 10 mg by mouth at night -Insulin Lispro -Insulin Glargine -Protonix 40mg by mouth daily. Take it for 6 more days to complete a 2 week course. -Clonazepam 0.5 mg by mouth 4 times per day as needed -Feosol 325 mg by mouth two times per day with orange juice If you have chest pain, shortness of breath, or any new symptoms please return to the hospital immediately. Referrals: Noble Huang MD [Staff Physician] - Renan Haney DO [Staff Physician] - William Bruner MD [Primary Care Provider] - Con Chen MD [Staff Physician] - Jeanie Philippe MS, [facility] [Speech Therapist] - Goyo Cid MD [Staff Physician] - Jakub Rosen MD, [Staff Physician] - Disposition: HOME - Home Medications Comprehensive Discharge Medication List: Ambulatory Orders Aspirin [ASA -] 81 mg PO DAILY #1 tab 03/06/13 Rosuvastatin Calcium [Crestor] 10 mg PO HS 01/16/14 Ferrous Sulfate [Feosol] 325 mg PO BID #0 ud 05/08/15 Prasugrel Hydrochloride [Effient -] 10 mg PO DAILY #0 tab 05/08/15 Albuterol 0.083% Nebulizer Bibiana [Ventolin 0.083% Nebulizer Soln -] 1 neb NEB QID 09/14/16 Nitroglycerin Patch [Nitro-Dur Patch -] 0.2 mg TD DAILY 12/05/16 Insulin Glargine,Hum.rec.anlog [Lantus (10mL VIAL) -] 0 units SQ HS 04/29/17 Insulin Lispro [Humalog] 100 unit SQ PRN 04/29/17 Budesonide/Formeterol Fumarate [SYMBICORT 160/4.5mcg -] 2 inh PO BID 06/13/17 Clonazepam [KlonoPIN] 0.5 mg PO QID PRN 06/13/17 Carvedilol Phosphate [Coreg Cr -] 10 mg PO DAILY #30 cap 06/23/17 Hydralazine HCl 50 mg PO TID #90 tablet 06/23/17 Pantoprazole Sodium [Protonix -] 40 mg PO DAILY #6 tablet 06/23/17 Prednisone 10 mg PO DAILY #13 tablet 06/23/17 This patient is new to me today: No Emergency Visit: No Critical Care patient: No - Discharge Referral Referred to [facility] No
== END 2017-06-23 16:15 | disposition home or self-care (01) | DRG 190 ==
LOC: JER 13:40 → JERBED 20:45 → J4S 22:46 → OBSVTOIN 06-15 11:37 → J4S 06-15 14:58
PROVIDERS: ADMIT Internal Medicine; ATTEND Internal Medicine
DX: J44.1 Chronic obstructive pulmonary disease with (acute) exacerbation (principal); I50.33 Acute on chronic diastolic (congestive) heart failure; J45.901 Unspecified asthma with (acute) exacerbation; I47.1 Supraventricular tachycardia; I13.0 Hypertensive heart and chronic kidney disease with heart failure and stage 1 through stage 4 chronic kidney disease, or unspecified chronic kidney disease; N18.4 Chronic kidney disease, stage 4 (severe); N17.9 Acute kidney failure, unspecified; Z68.41 Body mass index [BMI] 40.0-44.9, adult; E87.1 Hypo-osmolality and hyponatremia; I25.2 Old myocardial infarction; I34.0 Nonrheumatic mitral (valve) insufficiency; I16.0 Hypertensive urgency; I25.10 Atherosclerotic heart disease of native coronary artery without angina pectoris; F41.8 Other specified anxiety disorders; I27.2 Other secondary pulmonary hypertension; G47.33 Obstructive sleep apnea (adult) (pediatric); I48.0 Paroxysmal atrial fibrillation; E78.5 Hyperlipidemia, unspecified; E11.22 Type 2 diabetes mellitus with diabetic chronic kidney disease; E66.01 Morbid (severe) obesity due to excess calories; D63.1 Anemia in chronic kidney disease; Z95.1 Presence of aortocoronary bypass graft; Z95.5 Presence of coronary angioplasty implant and graft; Z79.4 Long term (current) use of insulin
CPT/HCPCS: 36415; 71020-TC; 74230-TC; 80048; 80053; 80061; 81003; 81015; 82550; 82570; 83036; 83721; 83735; 83880; 84100; 84484; 84540; 85025; 85027; 85610; 85730; 92611-GN; 93005; 93010; 94640; 99285-25; G0378; J1644

== ENCOUNTER 2017-12-16 12:31 | Inpatient (IN) | payer OTHER ==
--- NOTE | 2017-12-16 13:02 | PDOC ---
History of Present Illness - General Chief Complaint: Shortness of Breath Stated Complaint: S.O.B&ELEVATED BP Time Seen by Provider: 12/16/17 13:02 History Source: Patient - History of Present Illness Initial Comments: 12/16/17 13:03 Patient is a 62 y.o. female with a PMH chronic diastolic heart failure (no echo in EMR), IDDM, DLD, CAD s/p CABG, KATINA and Pulmonary HTN who presents to our ED c /o 2 day h/o productive (greenish sputum) cough and associated dyspnea. Patient notes she has a 1 month h/o productive cough for which she was evaluated by her correctional supply supervisor Dr. Oliveira in 10/2017 and instructed on supportive care however the dyspnea is new onset prompting her visit to the ED today. Patient endorses intermittent chest "tightness" but no nausea/vomiting, diarrhea/constipation or fevers/chills. Allergy: Penicillin, IV contrast Surgical: CABG Past History - Past Medical History Allergies/Adverse Reactions: Allergies Allergy/AdvReac Type Severity Reaction Status Date / Time Penicillins Allergy Intermediate Hives Verified 12/16/17 12:40 Iodinated Contrast- Oral and Allergy Verified 12/16/17 12:40 IV Dye [Iodinated Contrast Media - IV Dye] Home Medications: Ambulatory Orders Aspirin [ASA -] 81 mg PO DAILY #1 tab 03/06/13 Rosuvastatin Calcium [Crestor] 10 mg PO HS 01/16/14 Ferrous Sulfate [Feosol] 325 mg PO BID #0 ud 05/08/15 Prasugrel Hydrochloride [Effient -] 10 mg PO DAILY #0 tab 05/08/15 Albuterol 0.083% Nebulizer Bibiana [Ventolin 0.083% Nebulizer Soln -] 1 neb NEB QID 09/14/16 Insulin Glargine,Hum.rec.anlog [Lantus (10mL VIAL) -] 0 units SQ HS 04/29/17 Insulin Lispro [Humalog] 100 unit SQ PRN 04/29/17 Budesonide/Formeterol Fumarate [SYMBICORT 160/4.5mcg -] 2 inh PO BID 06/13/17 Clonazepam [KlonoPIN] 0.5 mg PO QID PRN 06/13/17 Carvedilol Phosphate [Coreg Cr -] 10 mg PO DAILY #30 cap 06/23/17 Hydralazine HCl 50 mg PO TID #90 tablet 06/23/17 Anemia: Yes Asthma: Yes Cancer: No Cardiac Disorders: Yes ([place] 2013, 1 stent, CHF) CVA: No COPD: No CHF: Yes Dementia: No Diabetes: Yes GI Disorders: No Disorders: Yes (elevated creatinine) HTN: Yes Hypercholesterolemia: Yes Liver Disease: No Seizures: No Thyroid Disease: No - Surgical History Abdominal Surgery: No Appendectomy: No Cardiac Surgery: Yes (2 stents 04/29/2015) Cholecystectomy: No Lung Surgery: No Neurologic Surgery: No Orthopedic Surgery: Yes (arthroscopy sep 08 @ [facility]) - Immunization History Immunization Up to Date: Yes - Suicide/Smoking/Psychosocial Hx Smoking Status: No Smoking History: Never smoked Have you smoked in the past 12 months: No Number of Cigarettes Smoked Daily: 0 Hx Alcohol Use: No Drug/Substance Use Hx: No Substance Use Type: None Hx Substance Use Treatment: No Review of Systems - Review of Systems Constitutional: No: Chills, Fever Respiratory: Yes: Shortness of Breath, Productive cough Cardiac (ROS): Yes: Chest Tightness ABD/GI: Yes: Nausea. No: Constipated, Diarrhea, Vomiting : No: Burning, Dysuria *Physical Exam - Vital Signs Last Vital Signs Temp Pulse Resp BP Pulse Ox 98.5 F 116 H 25 H 206/104 97 12/16/17 12:41 12/16/17 12:41 12/16/17 12:41 12/16/17 12:41 12/16/17 12:41 - Physical Exam General Appearance: Yes: Nourished, Obese Neck: positive: Trachea midline, Supple Respiratory/Chest: positive: Lungs Clear Cardiovascular: positive: S1, S2 Gastrointestinal/Abdominal: positive: Soft. negative: Distended, Guarding, Rebound, Tenderness Extremity: positive: Normal Capillary Refill, Normal Inspection Integumentary: positive: Normal Color, Dry, Warm Neurologic: positive: Fully Oriented, Alert ED Treatment Course - LABORATORY CBC & Chemistry Diagram: 12/16/17 13:13 12/16/17 13:13 Medical Decision Making - Medical Decision Making 12/16/17 15:55 Patient is a 62 y.o. female who presents with a 2 day h/o of dyspnea and productive cough. As patient has a h/o of CHF, initial clinical suspicion for CHF exacerbation. BNP 2670 (previous BNP 1787). Troponin .32, however patient has a h/o elevated troponin. Cr 2.9 (3.1 in 05/2018). Case d/w patient's PCP , Dr. Bruner, notes patient's asthma often exacerbates CHF. CXR negative for acute cardiopulmonary process. Patient to be admitted to inpatient medicine service for further evaluation including evaluation by pulmonology. *DC/Admit/Observation/Transfer Diagnosis at time of Disposition: Asthma exacerbation - Discharge Dispostion Condition at time of disposition: Fair Admit: Yes - Referrals - Patient Instructions - Post Discharge Activity
[2017-12-16 13:30] LABS: HEMOGLOBIN 10.5 GM/dL (10.7-15.3)
[2017-12-16 13:46] LABS: BASO % 0.8 % (0-2.0); EOS % 1.8 % (0-4.5); HEMATOCRIT 33.2 % (32.4-45.2); LYMPH % 25.8 % (8-40); MCH 24.2 pg (25.7-33.7); MCHC 31.7 g/dl (32.0-36.0); MEAN CELL VOLUME 76.4 fl (80-96); MEAN PLT VOLUME 8.3 fl (7.5-11.1); MONO % 7.1 % (3.8-10.2); NEUT % 64.5 % (42.8-82.8); PLATELET COUNT 286 K/MM3 (134-434); RBC 4.35 M/mm3 (3.60-5.2); RDW 13.3 % (11.6-15.6); WHITE BLOOD COUNT 7.7 K/mm3 (4.0-10.0)
[2017-12-16 14:02] LABS: ALBUMIN 3.8 g/dl (3.4-5.0); ANION GAP 10 (8-16); BLOOD UREA NITROGEN 47 mg/dL (7-18); CALCIUM 9.2 mg/dL (8.5-10.1); CHLORIDE 104 mmol/L (98-107); CO2 26 mmol/L (21-32); GLUCOSE,RANDOM 179 mg/dL (74-106); POTASSIUM 4.4 mmol/L (3.5-5.1); SODIUM 140 mmol/L (136-145)
[2017-12-16 14:08] LABS: ALK PHOS 122 U/L (45-117); BILIRUBIN,TOTAL 0.3 mg/dL (0.2-1.0); CREATININE 2.9 mg/dL (0.55-1.02); N-TERMINAL BNP 2670.52 pg/ml (5-125); SGOT/AST 22 U/L (15-37); SGPT/ALT 23 U/L (12-78); TOT PROT 8.1 g/dl (6.4-8.2)
--- NOTE | 2017-12-16 15:57 | PDOC ---
Attending Attestation - HPI HPI: 12/16/17 16:22 The patient is a 62 year old female with a significant PMH of chronic diastolic heart failure, type 2 DM, hypertension, hyperlipidemia, CAD, CABG, asthma, KATINA, anxiety, pulmonary hypertension, and PAF who presents to the emergency department with worsening cough and shortness of breath for the past three days. The patient reports she has had a productive cough for the past 2-3 months but states the coughing has become persistent within the past three days. The patient notes she has also been experiencing significant shortness of breath but denies chills, chest pain, headache or dizziness. The patient denies nausea, vomit, diarrhea and constipation. Denies dysuria, frequency, urgency and hematuria. Allergies: penicillins, contrast. Social history: No reported alcohol, drug, or cigarette use. PCP: Dr. Bruner <Rosy Moses - Last Filed: 12/16/17 16:22> - Resident Resident Name: Petra Woodson - ED Attending Attestation I have performed the following: I have examined & evaluated the patient, The case was reviewed & discussed with the resident, I agree w/resident's findings & plan, Exceptions are as noted - Physicial Exam PE: 12/16/17 22:02 agree with resident exam - Medical Decision Making 12/16/17 22:02 62yo F w MMP including asthma, CHD, CAD p/w progressive SOB and cough. Trop found to be positive to 0.3 (although pt often has trop elevated to 0.3) and BNP elevated as well. DIBNLT CHF vs asthma vs CAD. Given high risk for MACE, and abnormal labs, pt admitted for further management. <Jesus Ricketts - Last Filed: 12/16/17 22:09>
[2017-12-16] MEDS ORDERED: ASPIRIN 81 MG CHEWABLE TABLETS PO ONE (16:07)
[2017-12-16] MEDS ORDERED: ASPIRIN 325 MG TABLET ONE (16:17)
--- NOTE | 2017-12-16 17:31 | HP ---
CHIEF COMPLAINT: asthma PCP: Dr. Bruner HISTORY OF PRESENT ILLNESS: This is a 62 year old female with PMHx of diastolic heart failure, IDDM, CAD s/ p CABG, KATINA, pulmonary HTN, who presented to the ED with productive cough x5 days and shortness of breath with wheezing. The patient reports the wheezing has worsened over the past 2 days. She states she was at her drawing operator (Dr. Chen) office this morning and felt like she was going to pass out and came to the ED. She reports symptom relief with her symbicort and The patient denies any chest pain, shortness of breath, fever, chills, headache, dizziness, syncope , nausea, vomiting, diarrhea, constipation, urinary symptoms. ER course was notable for: (1) Hgb 10.5, Cr 2.9 (2) Trop 0.32 (3) BNP 2670 (4) Temp 98.5, pulse 116, BP 206/104, resp 25, O2 97% on RA (5) Chest X-ray: no significant interval change or acute lung disease present Recent Travel: denies PAST MEDICAL HISTORY: as abov PAST SURGICAL HISTORY: Cardiac stents Social History: Smoking: denies Alcohol: denies Drugs: denies Family History: Allergies Penicillins Allergy (Intermediate, Verified 12/16/17 12:40) Hives Iodinated Contrast- Oral and IV Dye [Iodinated Contrast Media - IV Dye] Allergy (Verified 12/16/17 12:40) HOME MEDICATIONS: Home Medications Medication Instructions Recorded Aspirin [ASA -] 81 mg PO DAILY #1 tab 03/06/13 Rosuvastatin Calcium [Crestor] 10 mg PO HS 01/16/14 Ferrous Sulfate [Feosol] 325 mg PO BID #0 ud 05/08/15 Prasugrel Hydrochloride [Effient -] 10 mg PO DAILY #0 tab 05/08/15 Albuterol 0.083% Nebulizer Bibiana 1 neb NEB QID 09/14/16 [Ventolin 0.083% Nebulizer Soln -] Insulin Glargine,Hum.rec.anlog 0 units SQ HS 04/29/17 [Lantus (10mL VIAL) -] Insulin Lispro [Humalog] 100 unit SQ PRN 04/29/17 Budesonide/Formeterol Fumarate 2 inh PO BID 06/13/17 [SYMBICORT 160/4.5mcg -] Clonazepam [KlonoPIN] 0.5 mg PO QID PRN 06/13/17 Carvedilol Phosphate [Coreg Cr -] 10 mg PO DAILY #30 cap 06/23/17 Hydralazine HCl 50 mg PO TID #90 tablet 06/23/17 REVIEW OF SYSTEMS CONSTITUTIONAL: Absent: fever, chills, diaphoresis, generalized weakness, malaise, loss of appetite, weight change HEENT: Absent: rhinorrhea, nasal congestion, throat pain, throat swelling, difficulty swallowing, mouth swelling, ear pain, eye pain, visual changes CARDIOVASCULAR: Absent: chest pain, syncope, palpitations, irregular heart rate , lightheadedness, peripheral edema RESPIRATORY: Productive cough with white sputum x5 days. Wheezing x5 days. Absent: shortness of breath, dyspnea with exertion, orthopnea, stridor, hemoptysis GASTROINTESTINAL:Absent: abdominal pain, abdominal distension, nausea, vomiting , diarrhea, constipation, melena, hematochezia GENITOURINARY: Absent: dysuria, frequency, urgency, hesitancy, hematuria, flank pain, genital pain MUSCULOSKELETAL: Absent: myalgia, arthralgia, joint swelling, back pain, neck pain SKIN: Absent: rash, itching, pallor HEMATOLOGIC/IMMUNOLOGIC: Absent: easy bleeding, easy bruising, lymphadenopathy, frequent infections ENDOCRINE:Absent: unexplained weight gain, unexplained weight loss, heat intolerance, cold intolerance NEUROLOGIC: Absent: headache, focal weakness or paresthesias, dizziness, unsteady gait, seizure, mental status changes, bladder or bowel incontinence PSYCHIATRIC: Absent: anxiety, depression, suicidal or homicidal ideation, hallucinations. PHYSICAL EXAMINATION Vital Signs - 24 hr 12/16/17 12/16/17 12/16/17 12:41 13:39 14:01 Temperature 98.5 F Pulse Rate 116 H 96 H Pulse Rate [ 106 H Apical] Respiratory 25 H 18 Rate Blood Pressure 206/104 Blood Pressure 182/89 [Right] O2 Sat by Pulse 97 96 94 L Oximetry (%) 12/16/17 15:00 Temperature Pulse Rate Pulse Rate [ 96 H Apical] Respiratory 18 Rate Blood Pressure Blood Pressure 159/77 [Right] O2 Sat by Pulse 96 Oximetry (%) GENERAL: Awake, alert, and fully oriented, in no acute distress. HEAD: Normal with no signs of trauma. EYES: Pupils equal, round and reactive to light, extraocular movements intact, sclera anicteric, conjunctiva clear. No lid lag. EARS, NOSE, THROAT: Ears normal, nares patent, oropharynx clear without exudates. Moist mucous membranes. NECK: Normal range of motion, supple without lymphadenopathy LUNGS: B/l end expiratory wheezing. HEART: Regular rate and rhythm, normal S1 and S2 ABDOMEN: Soft, nontender, not distended, normoactive bowel sounds MUSCULOSKELETAL: Normal range of motion at all joints. No bony deformities or tenderness. No CVA tenderness. UPPER EXTREMITIES: 2+ pulses, warm, well-perfused. No cyanosis. No clubbing. No peripheral edema. LOWER EXTREMITIES: 2+ pulses, warm, well-perfused. No calf tenderness. No peripheral edema. NEUROLOGICAL: Cranial nerves II-XII intact. Normal speech. Gait not observed PSYCHIATRIC: Cooperative. Good eye contact. Appropriate mood and affect. SKIN: Warm, dry, normal turgor, no rashes or lesions noted, normal capillary refill. Laboratory Results - last 24 hr 12/16/17 12/16/17 13:13 13:13 WBC 7.7 D RBC 4.35 Hgb 10.5 L D Hct 33.2 MCV 76.4 L MCH 24.2 L MCHC 31.7 L RDW 13.3 Plt Count 286 MPV 8.3 Neutrophils % 64.5 Lymphocytes % 25.8 D Monocytes % 7.1 Eosinophils % 1.8 D Basophils % 0.8 D Sodium 140 Potassium 4.4 Chloride 104 Carbon Dioxide 26 Anion Gap 10 BUN 47 H Creatinine 2.9 H Creat Clearance w eGFR 16.44 Random Glucose 179 H Calcium 9.2 Total Bilirubin 0.3 D AST 22 ALT 23 Alkaline Phosphatase 122 H Creatine Kinase 93 Troponin I 0.32 H B-Natriuretic Peptide 2670.52 H Total Protein 8.1 Albumin 3.8 Assessment: This is a 62 year old female with PMHx of diastolic heart failure, IDDM, CAD s/p CABG, KATINA, pulmonary HTN, who presented to the ED with productive cough x5 days and shortness of breath with wheezing. Plan: 1) Acute asthma exacerbation - Solumedrol 125mg once followed by 40mg IVPB q8h - Continue Symbicort - Continue Albuterol nebs - O2 via NC prn - Peak flow - F/u pulmonary consult 2) Elevated troponin - Elevated on previous admission. Around [place] from 05/2017 - Continue to trend - Cardiac monitoring - ASA 325mg given in ED - F/u cardiology consult 3) CAD s/p cardiac stents - Continue Effient - Continue ASA - Continue Coreg - Continue statin 4) Chronic diastolic heart failure - No evidence of failure at this time 5) CKD
[2017-12-16] MEDS ORDERED: methylPREDNISolone NA SUCC 125 MG/2 ML VIAL ONE (18:23)
[2017-12-16] MEDS ORDERED: methylPREDNISolone NA SUCC 125 MG/2 ML VIAL IVPB ONE (18:30)
--- NOTE | 2017-12-16 19:18 | CON.CARD ---
Cardiology Consult (text) - Consultation Consultation Note: cc: sob HPI: 62 yo with h/o CAD--h/o NSTEMI '13 s/p LAD KAREN PCI 09/2013, and prox LCx KAREN PCI 2014, dchf, HTN, hl, lone afib/PSVT, MR, pHTN, KATINA, copd, NAFLD, CKD, renal stones (obstructive, with R hydro, s/p stent) , anemia, IDDM who presents to the ED with shortness of breath. Sent from Dr. Johansen's office for further evaluation /concern for copd exacerbation (diminshed bs and prominent wheezing on exam.) 1 mo ago began having wheezing and cough (white phlegm), worsened kee (Now can only walk < 1 block). Cough worse lying flat --> has needed to sleep in a chair . + orthopnea, chronic. no leg swelling, no feeling of fluid in abdomen. Adherent to home torsemide regimen 20 qd. last office creat 2.8 few weeks ago, stable. Weight down at office visit today 137 lbs down from 245 lbs in august. patient states poor po intake 2/2 cough interfering with ability to eat. + palpitations (racing, no skipping). s/p IV steroids in ER. No cp, dizzy, loc, pnd, le edema. Sees dr johansen for cardiology. Past Medical History/past surg hx: per hpi. Social hx: Never smoked, no etoh or illicits Fam hx: No family hx of cardiac disease. Ros: per hpi; no f/c/s, nvd, nasal congestion, bleeding, h/a, rash. - Allergies Allergies/Adverse Reactions: Allergies Allergy/AdvReac Type Severity Reaction Status Date / Time Penicillins Allergy Intermediate Hives Verified 12/05/16 17:12 Iodinated Contrast Media - Allergy Verified 12/05/16 17:12 Oral and [Iodinated Contrast Media - IV Dye] Ambulatory Orders Aspirin [ASA -] 81 mg PO DAILY #1 tab 03/06/13 Rosuvastatin Calcium [Crestor] 10 mg PO HS 01/16/14 Ferrous Sulfate [Feosol] 325 mg PO BID #0 ud 05/08/15 Prasugrel Hydrochloride [Effient -] 10 mg PO DAILY #0 tab 05/08/15 Albuterol 0.083% Nebulizer Bibiana [Ventolin 0.083% Nebulizer Soln -] 1 neb NEB QID 09/14/16 Insulin Glargine,Hum.rec.anlog [Lantus (10mL VIAL) -] 0 units SQ HS 04/29/17 Insulin Lispro [Humalog] 100 unit SQ PRN 04/29/17 Budesonide/Formeterol Fumarate [SYMBICORT 160/4.5mcg -] 2 inh PO BID 06/13/17 Clonazepam [KlonoPIN] 0.5 mg PO QID PRN 06/13/17 Carvedilol Phosphate [Coreg Cr -] 10 mg PO DAILY #30 cap 06/23/17 Hydralazine HCl 50 mg PO TID #90 tablet 06/23/17 per office notes torsemide 20 mg/day, hydral is 25 tid, on nitro patch 0.2 mg/ hr and zetia 10 mg/day Current Medications Albuterol Sulfate (Ventolin 0.083% Nebulizer Soln -) 1 amp NEB RQID LALO Aspirin (Asa -) 81 mg PO DAILY LALO Budesonide/Formoterol Fumarate (Symbicort 160/4.5mcg -) 2 puff IH BID LALO Carvedilol (Coreg Cr -) 10 mg PO DAILY LALO Clonazepam (Klonopin -) 0.5 mg PO BID LALO Ferrous Sulfate (Feosol -) 325 mg PO BID LALO Heparin Sodium (Porcine) (Heparin -) 5,000 unit SQ Q8H-IV LALO Hydralazine HCl (Apresoline -) 50 mg PO TID LALO Methylprednisolone Sodium Succinate (Solu-Medrol -) 40 mg IVPB Q8H-IV LALO Prasugrel (Effient -) 10 mg PO DAILY LALO Rosuvastatin Calcium (Crestor -) 10 mg PO HS [facility] pe: Vital Signs Vital Signs - 24 hr 12/16/17 12/16/17 12/16/17 12:41 13:39 14:01 Temperature 98.5 F Pulse Rate 116 H 96 H Pulse Rate [ 106 H Apical] Respiratory 25 H 18 Rate Blood Pressure 206/104 Blood Pressure 182/89 [Right] O2 Sat by Pulse 97 96 94 L Oximetry (%) 12/16/17 15:00 Temperature Pulse Rate Pulse Rate [ 96 H Apical] Respiratory 18 Rate Blood Pressure Blood Pressure 159/77 [Right] O2 Sat by Pulse 96 Oximetry (%) Intake & Output 12/14/17 12/15/17 12/16/17 12/17/17 07:59 07:59 07:59 07:59 Weight 234 lb NAD, calm JVD flat, neck supple diffuse wheezes, nl effort RRR nl s1 s2, no mrg. ND PMI + bs soft nt nd, obese. no hsm ext with trace edema. no c/c + dp/pt, no carotid bruits no jaundice, diaphoresis aaox3 CBC, BMP 12/16/17 13:13 12/16/17 13:13 Laboratory Tests 06/14/17 12/16/17 06:00 13:13 Total Bilirubin 0.3 D AST 22 ALT 23 Alkaline Phosphatase 122 H Troponin I 0.30 H 0.32 H Albumin 3.8 ECG ordered, pending. cxr: reviewed images and report. CM no acute pathology. Echo 01/15: nl LV/EF; dd2, hi E/e' = hi LAP. nl RV. mild LAE. mild-mod MR, mod TR. mild pHTN (46 mmHg). Echo 09/14/16: Low nl LVEF. RV not well seen. 1+ MR. Stress Echo 01/15: 3:53min; no STs. Rest images showed: Inferior, inferolateral and [id number] lateral phillip not well seen; normal wall motion in remaining territories. Normal LVEF (approximately 55-60%). Post-exercise images showed: Inferior, inferolateral and [id number] lateral phillip not well seen; normal augmentation of contraction in remaining territories , with appropriate increase in LVEF (approximately 60-65%). No significant MR seen. Mild TR. Peak TR gradient is at least 47 mmHg (nonspecific finding). PFTs '09: moderate restr defect 62 yo with h/o CAD--h/o NSTEMI '13 s/p LAD KAREN PCI 09/2013, and prox LCx KAREN PCI 2014, dchf, HTN, hl, lone afib/PSVT, MR, pHTN, KATINA, copd, NAFLD, CKD, renal stones (obstructive, with R hydro, s/p stent) , anemia, IDDM who presents to the ED with shortness of breath. copd/bronchospasm , acute exacerbation: -concern for acute exacerbation on exam with diminshed air movement and prominent wheezing at office visit with Dr. Johansen. He discussed with her strike plate attacher Dr. Bruner --> rec ER evaluation. - mgm't per pmd/pulm chronic diastolic CHF - hx of "flash" pulmonary edema in the past--felt to be a combo of diast dysf and ischemic heart disease. - currently without obvious signs of volume overload. Weight in office today down from priors. Con't home torsemide 20 mg/day. Monitor volume status on steroids. daily weights. i/o's. daily bmp. HTN: - intolerant of multiple BP meds before--diovan, micardis, verap, norvasc, nifedipine, nisoldipine, catapres patch, see below. - home regimen was coreg CR 20, hydral 25 TID, nitro patch 0.2mg (BUCKNER with higher doses)--only takes hydral prn as her bp is labile and often is symptomatically low with hydral. previously coreg dose decreased to 10mg here to see it helped with bronchospasm -avoid RAAS blockers given labile creatinines and Stage IV CKD. Per prior notes , Dr. Johansen would prefer to avoid minoxidil given very labile volume retention behavior. -bp labile here. resume home ntg patch, decrease hydral to home dose of 25 tid , con't to monitor. . CAD with elevated troponin: -s/p prox LCx KAREN PCI 2014 for crescendo angina, also with prior mLAD stent ( patent 2014), residual 70-80% distal RCA disease -trop 0.3 with flat trend when admitted 05/2017. chronic elevation thought to be 2/2 hi LV filling pressures in setting of ckd and residual cad. Now again with elevated troponin. Recommend checking EKG --> ordered. Con't clair. - Continue home DAPT with ASA and Effient. cont crestor, resume zetia QOD. con' t coreg, resume NTG patch. - No ACEI given fluctuating renal function. HPL: - suboptimal control 09/14: LDL 204-. Myalgias w Atorva/Simva and high dose crestor. tolerating crestor 10 mg, and zetia QOD at home. will resume zetia. KATINA / Mod PHTN - compliant with CPAP at home --> con't here. ARF / CKD: - recent baseline creat 2.7-2.9. currently close to baseline. con't to monitor. Remote PAF and PSVT - lone AF episode in setting of dobutamine, no recurrence. No AC thought to be indicated intolerant to many bp meds in past: diovan ineffective micardis (palps) verap (nausea, edema) norvasc 5 bid (edema) nifedipine (sob) nisoldipine (buckner's, palps, incr edema) catapres patch (skin irritation) ? certain bb's before coreg CR
[2017-12-16] MEDS ORDERED: clonazePAM 0.5 MG TABLET ONE (21:30)
[2017-12-16] MEDS ORDERED: hydrALAZINE HCL 25 MG TABLET (FP) ONE (21:30)
[2017-12-16] MEDS ORDERED: ALBUTEROL SO4 0.083% IH SOL 2.5 MG/3 ML VIAL.NEB. NEB ONE (21:30)
[2017-12-16] MEDS ORDERED: FERROUS SO4 325 MG TABLET (FP) ONE (21:31)
[2017-12-16] MEDS ORDERED: NITROGLYCERIN 2% OINTMENT - 1GM PACKET TD ONE (21:34)
[2017-12-16] MEDS: ALBUTEROL SO4 0.083% IH SOL 2.5 MG/3 ML VIAL.NEB. NEB SCH (21:59)
[2017-12-16] MEDS: FERROUS SO4 325 MG TABLET (FP) PO SCH (21:59)
[2017-12-16] MEDS: clonazePAM 0.5 MG TABLET PO SCH (21:59)
[2017-12-16] MEDS ORDERED: hydrALAZINE HCL 50 MG TABLET (FP) PO SCH ×2 (22:00)
[2017-12-16] MEDS: BUDESONIDE/FORMETEROL FUMARATE 160/4.5 mcg INHALER IH SCH (23:30)
[2017-12-16] MEDS: ROSUVASTATIN CA 10 MG TABLET (FP) PO SCH (23:30)
[2017-12-17] MEDS ORDERED: INSULIN (NOVOLOG) ASPART 100 UNITS/ML 10ML VIAL SQ ONE (00:30)
[2017-12-17] MEDS ORDERED: INSULIN (NOVOLOG) ASPART 100 UNITS/ML 10ML VIAL ONE ×2 (00:32→21:13)
[2017-12-17] MEDS ORDERED: HEPARIN NA (PORCINE) 5,000 UNITS/ML 1ML VIAL SQ SCH (02:00)
[2017-12-17] MEDS ORDERED: methylPREDNISolone NA SUCC 40 MG/1 ML VIAL IVPB SCH (02:00)
[2017-12-17] MEDS: methylPREDNISolone NA SUCC 40 MG/1 ML VIAL IVPUSH SCH ×2 (02:38→09:51)
[2017-12-17] MEDS: ACETAMINOPHEN 325 MG TABLET (FP) PO PRN (02:53)
[2017-12-17] MEDS ORDERED: hydrALAZINE HCL 25 MG TABLET (FP) PO SCH (06:00)
[2017-12-17] MEDS: HEPARIN NA (PORCINE) 5,000 UNITS/ML 1ML VIAL SQ SCH ×3 (06:35→21:10)
[2017-12-17] MEDS: INSULIN SLIDING SCALE (NOVOLOG) 1 VIAL SQ SCH ×4 (06:35→21:16)
[2017-12-17 07:28] LABS: HEMATOCRIT 31.8 % (32.4-45.2); HEMOGLOBIN 10.2 GM/dL (10.7-15.3); MCH 24.6 pg (25.7-33.7); MCHC 32.1 g/dl (32.0-36.0); MEAN CELL VOLUME 76.5 fl (80-96); MEAN PLT VOLUME 8.2 fl (7.5-11.1); PLATELET COUNT 273 K/MM3 (134-434); RBC 4.16 M/mm3 (3.60-5.2); RDW 13.1 % (11.6-15.6); WHITE BLOOD COUNT 9.1 K/mm3 (4.0-10.0)
[2017-12-17 07:54] LABS: ALBUMIN 3.3 g/dl (3.4-5.0); ANION GAP 9 (8-16); BILIRUBIN,TOTAL 0.2 mg/dL (0.2-1.0); BLOOD UREA NITROGEN 50 mg/dL (7-18); CALCIUM 8.9 mg/dL (8.5-10.1); CHLORIDE 103 mmol/L (98-107); CO2 24 mmol/L (21-32); CREATININE 2.9 mg/dL (0.55-1.02); MAGNESIUM 2.1 mg/dL (1.8-2.4); PHOSPHOROUS 4.6 mg/dL (2.5-4.9); POTASSIUM 4.9 mmol/L (3.5-5.1); SGOT/AST 18 U/L (15-37); SGPT/ALT 20 U/L (12-78); SODIUM 136 mmol/L (136-145); TOT PROT 7.5 g/dl (6.4-8.2)
[2017-12-17 07:58] LABS: ALK PHOS 113 U/L (45-117)
[2017-12-17 08:07] LABS: GLUCOSE,RANDOM 309 mg/dL (74-106)
[2017-12-17] MEDS ORDERED: clonazePAM 0.5 MG TABLET ONE (09:47)
[2017-12-17] MEDS: TORSEMIDE 20 MG TABLET (FP) PO SCH (09:50)
[2017-12-17] MEDS: PRASUGREL HCL 10 MG TAB PO SCH (09:50)
[2017-12-17] MEDS: FERROUS SO4 325 MG TABLET (FP) PO SCH ×2 (09:50→21:09)
[2017-12-17] MEDS: clonazePAM 0.5 MG TABLET PO SCH ×2 (09:50→21:07)
[2017-12-17] MEDS: CARVEDILOL PHOSPHATE CR 10 MG CAPSULE PO SCH (09:50)
[2017-12-17] MEDS: ASPIRIN 81 MG CHEWABLE TABLETS PO SCH (09:50)
[2017-12-17] MEDS: BUDESONIDE/FORMETEROL FUMARATE 160/4.5 mcg INHALER IH SCH ×2 (09:51→21:11)
[2017-12-17] MEDS: EZETIMIBE 10 MG TABLET (FP) PO SCH (09:51)
[2017-12-17] MEDS ORDERED: hydrALAZINE HCL 25 MG TABLET (FP) PO ONE (11:05)
[2017-12-17] MEDS: ALBUTEROL SO4 0.083% IH SOL 2.5 MG/3 ML VIAL.NEB. NEB SCH ×2 (11:40→21:11)
--- NOTE | 2017-12-17 13:30 | EKG ---
Test Reason : Blood Pressure : / mmHG Vent. Rate : 109 BPM Atrial Rate : 109 BPM P-R Int : 184 ms QRS Dur : 084 ms QT Int : 330 ms P-R-T Axes : 071 011 061 degrees QTc Int : 444 ms SINUS TACHYCARDIA NONSPECIFIC T WAVE ABNORMALITY ABNORMAL ECG Confirmed by MD GUANACO, RHONDA ([id number]) on 12/17/2017 1:30:06 PM Referred By: Confirmed By:RHONDA BLANC MD
[2017-12-17] MEDS: hydrALAZINE HCL 25 MG TABLET (FP) PO SCH ×2 (14:46→21:09)
--- NOTE | 2017-12-17 15:06 | CONSULT ---
Consultation: REQUESTING PROVIDER: roman honeycutt MD CONSULT REQUEST: We have been asked to medically evaluate this patient for dyspnea. HISTORY OF PRESENT ILLNESS: This is a 62 year old female with a significant past medical history of diastolic heart failure, CAD, KATINA, pulmonary hypertension, presents with dyspnea on exertion, cough with white sputum production. Denies fever chills, nausea, vomiting, chest pain. She does admit to bilateral leg swelling and orthopnea. She recently visited her pulmonolgist for nasal congestion and was prescribed flonase. ER coarse: given IV steroids, bronchodilators, diuretics, condition improved. CXR +cardiomegaly. REVIEW OF SYSTEMS: CONSTITUTIONAL: Absent: fever, chills, diaphoresis, generalized weakness, malaise, loss of appetite, weight change HEENT: Positive: nasal congestion, Absent: rhinorrhea, throat pain, throat swelling, difficulty swallowing, mouth swelling, ear pain, eye pain, visual changes CARDIOVASCULAR: Positive: peripheral edema Absent: chest pain, syncope, palpitations, irregular heart rate, lightheadedness , RESPIRATORY: Positive:cough, shortness of breath, dyspnea with exertion, orthopnea, wheezing, Absent: stridor, hemoptysis GASTROINTESTINAL: Absent: abdominal pain, abdominal distension, nausea, vomiting, diarrhea, constipation, melena, hematochezia GENITOURINARY: Absent: dysuria, frequency, urgency, hesitancy, hematuria, flank pain, genital pain MUSCULOSKELETAL: Absent: myalgia, arthralgia, joint swelling, back pain, neck pain SKIN: Absent: rash, itching, pallor HEMATOLOGIC/IMMUNOLOGIC: Absent: easy bleeding, easy bruising, lymphadenopathy, frequent infections ENDOCRINE: Absent: unexplained weight gain, unexplained weight loss, heat intolerance, cold intolerance NEUROLOGIC: Absent: headache, focal weakness or paresthesias, dizziness, unsteady gait, seizure, mental status changes, bladder or bowel incontinence PSYCHIATRIC: Absent: anxiety, depression, suicidal or homicidal ideation, hallucinations. PHYSICAL EXAMINATION Vital Signs - 24 hr 12/17/17 12/17/17 12/17/17 00:05 01:30 02:44 Temperature 97.7 F 98.1 F Pulse Rate 98 H 98 H Pulse Rate [ 82 Apical] Respiratory 19 20 Rate Blood Pressure 194/98 154/85 Blood Pressure 131/79 [Right] O2 Sat by Pulse 98 Oximetry (%) 0112/17/17 12/17/17 06:11 08:00 10:00 Temperature 97.7 F 98.3 F Pulse Rate 99 H 94 H Pulse Rate [ Apical] Respiratory 20 20 Rate Blood Pressure 194/110 190/100 Blood Pressure [Right] O2 Sat by Pulse 95 Oximetry (%) 12/17/17 12/17/17 11:51 14:02 Temperature 97 F L Pulse Rate 92 H 88 Pulse Rate [ Apical] Respiratory 22 Rate Blood Pressure 170/98 145/80 Blood Pressure [Right] O2 Sat by Pulse Oximetry (%) GENERAL: Awake, alert, and fully oriented, in no acute distress. HEAD: Normal with no signs of trauma. EYES: Pupils equal, round and reactive to light, extraocular movements intact, sclera anicteric, conjunctiva clear. No lid lag. EARS, NOSE, THROAT: Ears normal, nares patent, oropharynx clear without exudates. Moist mucous membranes. NECK: Normal range of motion, supple without lymphadenopathy, JVD, or masses. LUNGS: Breath sounds equal, clear to auscultation bilaterally. No wheezes, and no crackles. No accessory muscle use. HEART: Regular rate and rhythm, normal S1 and S2 without murmur, rub or gallop. ABDOMEN: Soft, nontender, not distended, normoactive bowel sounds, no guarding, no rebound, no masses. No hepatomegaly or splenomegaly. MUSCULOSKELETAL: Normal range of motion at all joints. No bony deformities or tenderness. No CVA tenderness. UPPER EXTREMITIES: 2+ pulses, warm, well-perfused. No cyanosis. No clubbing. Cap refill <2 seconds. No peripheral edema. LOWER EXTREMITIES: 2+ pulses, warm, well-perfused. No calf tenderness.bilateral trace edema NEUROLOGICAL: Cranial nerves II-XII intact. Normal speech. Normal gait. PSYCHIATRIC: Cooperative. Good eye contact. Appropriate mood and affect. SKIN: Warm, dry, normal turgor, no rashes or lesions noted. Laboratory Results - last 24 hr 12/16/17 12/17/17 12/17/17 22:40 00:25 06:27 WBC RBC Hgb Hct MCV MCH MCHC RDW Plt Count MPV Sodium Potassium Chloride Carbon Dioxide Anion Gap BUN Creatinine Creat Clearance w eGFR POC Glucometer [phone] Random Glucose Calcium Phosphorus Magnesium Total Bilirubin AST ALT Alkaline Phosphatase Creatine Kinase 91 Troponin I 0.39 H Total Protein Albumin 12/17/17 12/17/17 12/17/17 07:09 07:09 07:10 WBC 9.1 RBC 4.16 Hgb 10.2 L Hct 31.8 L MCV 76.5 L MCH 24.6 L MCHC 32.1 RDW 13.1 Plt Count 273 MPV 8.2 Sodium 136 Potassium 4.9 Chloride 103 Carbon Dioxide 24 Anion Gap 9 BUN 50 H Creatinine 2.9 H Creat Clearance w eGFR 16.44 POC Glucometer Random Glucose 309 H* Calcium 8.9 Phosphorus 4.6 Magnesium 2.1 Total Bilirubin 0.2 D AST 18 ALT 20 Alkaline Phosphatase 113 Creatine Kinase 92 Troponin I 0.35 H Total Protein 7.5 Albumin 3.3 L 12/17/17 12:41 WBC RBC Hgb Hct MCV MCH MCHC RDW Plt Count MPV Sodium Potassium Chloride Carbon Dioxide Anion Gap BUN Creatinine Creat Clearance w eGFR POC Glucometer [phone] Random Glucose Calcium Phosphorus Magnesium Total Bilirubin AST ALT Alkaline Phosphatase Creatine Kinase Troponin I Total Protein Albumin Active Medications Generic Name Dose Route Start Last Admin Trade Name Freq PRN Reason Stop Dose Admin Acetaminophen 650 mg 12/17/17 02:47 12/17/17 02:53 Tylenol - PO 650 mg Q6H PRN Administration PAIN Albuterol Sulfate 1 amp 12/16/17 20:00 12/16/17 21:59 Ventolin 0.083% Nebulizer Soln - NEB 1 amp RQID LALO Administration Aspirin 81 mg 12/17/17 10:00 12/17/17 09:50 Asa - PO 81 mg DAILY LALO Administration Budesonide/Formoterol Fumarate 2 puff 12/16/17 22:00 12/17/17 09:51 Symbicort 160/4.5mcg - IH 2 puff BID LALO Administration Carvedilol 10 mg 12/17/17 10:00 12/17/17 09:50 Coreg Cr - PO 10 mg DAILY LALO Administration Clonazepam 0.5 mg 12/16/17 22:00 12/17/17 09:50 Klonopin - PO 0.5 mg BID LALO Administration Ezetimibe 10 mg 12/17/17 10:00 12/17/17 09:51 Zetia - PO 10 mg Q48H LALO Administration Ferrous Sulfate 325 mg 12/16/17 22:00 12/17/17 09:50 Feosol - PO 325 mg BID LALO Administration Heparin Sodium (Porcine) 5,000 unit 12/17/17 06:00 12/17/17 14:46 Heparin - SQ 5,000 unit TID LALO Administration Hydralazine HCl 50 mg 12/17/17 14:00 12/17/17 14:46 Apresoline - PO 50 mg TID LALO Administration Insulin Aspart 1 vial 12/17/17 22:00 Novolog Vial Sliding Scale - SQ HS LALO Protocol Insulin Aspart 1 vial 12/17/17 07:00 12/17/17 12:43 Novolog Vial Sliding Scale - SQ 4 units TIDAC LALO Administration Protocol Methylprednisolone Sodium Succinate 40 mg 12/17/17 02:00 12/17/17 09:51 Solu-Medrol - IVPUSH 40 mg Q8H-IV LALO Administration Nitroglycerin 0.2 mg 12/17/17 22:00 Nitro-Dur Patch - TD DAILY LALO Prasugrel 10 mg 12/17/17 10:00 12/17/17 09:50 Effient - PO 10 mg DAILY LALO Administration Rosuvastatin Calcium 10 mg 12/16/17 22:00 12/16/17 23:30 Crestor - PO 10 mg HS LALO Administration Torsemide 20 mg 12/17/17 10:00 12/17/17 09:50 Demadex - PO 20 mg DAILY LALO Administration ASSESSMENT/PLAN: This is a 62 year old female with a significant past medical history of diastolic heart failure, CAD, KATINA, pulmonary hypertension, presents with dyspnea on exertion, cough with white sputum production. Impression: Acute exacerbation of chronic diastolic CHF possible acute bronchitis precipitated by viral illness KATINA HTN CAD with chronically elevated troponin; above baseline CKD Plan: observe off steroids bronchodilators prn observe off antibiotics CPAP NIPPV diuretics cardiac work up; troponin above baseline f/u echocardiogram consider cardio work up with stress imaging Dispo: We will continue to follow the patient. Thank you for this consultative opportunity. Problem List - Problems (1) Acute on chronic heart failure Code(s): I50.9 - HEART FAILURE, UNSPECIFIED (2) CAD (coronary artery disease) Code(s): I25.10 - ATHSCL HEART DISEASE OF [place] CORONARY ARTERY W/O ANG PCTRS (3) Acute exacerbation of asthma with allergic rhinitis Code(s): J45.901 - UNSPECIFIED ASTHMA WITH (ACUTE) EXACERBATION (4) KATINA (obstructive sleep apnea) Code(s): G47.33 - OBSTRUCTIVE SLEEP APNEA (ADULT) (PEDIATRIC) (5) CKD (chronic kidney disease) Code(s): N18.9 - CHRONIC KIDNEY DISEASE, UNSPECIFIED Visit type - Emergency Visit Emergency Visit: Yes ED Registration Date: 12/16/17 Care time: The patient presented to the Emergency Department on the above date and was hospitalized for further evaluation of their emergent condition. - New Patient This patient is new to me today: Yes Date on this admission: 12/17/17 - Critical Care Critical Care patient: No
--- NOTE | 2017-12-17 16:30 | PN ---
Progress Note (short form) - Note Progress Note: Subjective: The patient was seen and examined at the bedside, she states she is feeling much better today and denies any shortness of breath, chest pain, wheezing. Current Medications Generic Name Dose Route Start Last Admin Trade Name Freq PRN Reason Stop Dose Admin Acetaminophen 650 mg 12/17/17 02:47 12/17/17 02:53 Tylenol - PO 650 mg Q6H PRN Administration PAIN Albuterol Sulfate 1 amp 12/17/17 20:00 Ventolin 0.083% Nebulizer Soln - NEB RTID LALO Aspirin 81 mg 12/17/17 10:00 12/17/17 09:50 Asa - PO 81 mg DAILY LALO Administration Budesonide/Formoterol Fumarate 2 puff 12/16/17 22:00 12/17/17 09:51 Symbicort 160/4.5mcg - IH 2 puff BID LALO Administration Carvedilol 10 mg 12/17/17 10:00 12/17/17 09:50 Coreg Cr - PO 10 mg DAILY LALO Administration Clonazepam 0.5 mg 12/16/17 22:00 12/17/17 09:50 Klonopin - PO 0.5 mg BID LALO Administration Ezetimibe 10 mg 12/17/17 10:00 12/17/17 09:51 Zetia - PO 10 mg Q48H LALO Administration Ferrous Sulfate 325 mg 12/16/17 22:00 12/17/17 09:50 Feosol - PO 325 mg BID LALO Administration Heparin Sodium (Porcine) 5,000 unit 12/17/17 06:00 12/17/17 14:46 Heparin - SQ 5,000 unit TID LALO Administration Hydralazine HCl 50 mg 12/17/17 14:00 12/17/17 14:46 Apresoline - PO 50 mg TID LALO Administration Insulin Aspart 1 vial 12/17/17 22:00 Novolog Vial Sliding Scale - SQ HS LALO Protocol Insulin Aspart 1 vial 12/17/17 07:00 12/17/17 12:43 Novolog Vial Sliding Scale - SQ 4 units TIDAC LALO Administration Protocol Nitroglycerin 0.2 mg 12/17/17 22:00 Nitro-Dur Patch - TD DAILY LALO Prasugrel 10 mg 12/17/17 10:00 12/17/17 09:50 Effient - PO 10 mg DAILY LALO Administration Rosuvastatin Calcium 10 mg 12/16/17 22:00 12/16/17 23:30 Crestor - PO 10 mg HS LALO Administration Torsemide 20 mg 12/17/17 10:00 12/17/17 09:50 Demadex - PO 20 mg DAILY LALO Administration Objective: Vital Signs Period Temp Pulse Resp BP Sys/Shankar Pulse Ox Last 24 Hr 97 F-98.3 F 82-99 19-22 131-194/79-110 95-98 Physical Exam: General: NAD, A&Ox3 Lungs: CTA bilaterally Heart: RRR, S1S2 Abd: Soft, non-tender, non-distended. Normoactive bowel sounds Ext: Warm, well-perfused. 2+ DP/PT bilaterally Neuro: CN 2-12 intact CBCD WBC 9.1 K/mm3 (4.0-10.0) 12/17/17 07:10 RBC 4.16 M/mm3 (3.60-5.2) 12/17/17 07:10 Hgb 10.2 GM/dL (10.7-15.3) L 12/17/17 07:10 Hct 31.8 % (32.4-45.2) L 12/17/17 07:10 MCV 76.5 fl (80-96) L 12/17/17 07:10 MCHC 32.1 g/dl (32.0-36.0) 12/17/17 07:10 RDW 13.1 % (11.6-15.6) 12/17/17 07:10 Plt Count 273 K/MM3 (134-434) 12/17/17 07:10 MPV 8.2 fl (7.5-11.1) 12/17/17 07:10 CMP Sodium 136 mmol/L (136-145) 12/17/17 07:09 Potassium 4.9 mmol/L (3.5-5.1) 12/17/17 07:09 Chloride 103 mmol/L (98-107) 12/17/17 07:09 Carbon Dioxide 24 mmol/L (21-32) 12/17/17 07:09 Anion Gap 9 (8-16) 12/17/17 07:09 BUN 50 mg/dL (7-18) H 12/17/17 07:09 Creatinine 2.9 mg/dL (0.55-1.02) H 12/17/17 07:09 Creat Clearance w eGFR 16.44 (>60) 12/17/17 07:09 Random Glucose 309 mg/dL (74-106) H* 12/17/17 07:09 Calcium 8.9 mg/dL (8.5-10.1) 12/17/17 07:09 Total Bilirubin 0.2 mg/dL (0.2-1.0) D 12/17/17 07:09 AST 18 U/L (15-37) 12/17/17 07:09 ALT 20 U/L (12-78) 12/17/17 07:09 Alkaline Phosphatase 113 U/L (45-117) 12/17/17 07:09 Total Protein 7.5 g/dl (6.4-8.2) 12/17/17 07:09 Albumin 3.3 g/dl (3.4-5.0) L 12/17/17 07:09 CARDIAC ENZYMES Creatine Kinase 92 IU/L (26-192) 12/17/17 07:09 Troponin I 0.35 ng/ml (0.00-0.05) H 12/17/17 07:09 Assessment: This is a 62 year old female with PMHx of diastolic heart failure, IDDM, CAD s/p CABG, KATINA, pulmonary HTN, who presented to the ED with productive cough x5 days and shortness of breath with wheezing. Plan: 1) Acute COPD exacerbation - Improved rapidly on IV steroids! No audible wheezing noted today - Will switch to po steroids for rapid taper - Continue Symbicort - Continue Albuterol nebs - O2 via NC prn - Peak flow - Appreciate pulmonary consult 2) CAD with elevated troponin - Elevated on previous admission (05/2017): flat trend - Cardiac monitoring - ASA 325mg given in ED - Continue ASA 81 mg po daily - Appreciate cardiology consult 3) CAD s/p cardiac stents - Continue Effient - Continue ASA - Continue Coreg - Continue statin 4) Chronic diastolic heart failure - Weight down 8lbs since 08/2017 - Discussed with Dr. Wooten, no evidence of CHF exacerbation at this time. Chest X-ray with no acute lung disease present - Continue home Torsemide 20mg per day 5) F/E/N: - Diabetic Diet - Monitor electrolytes 6) Prophylaxis: - OOB ambulating - Heparin 5,000u sq tid 7) Dispo: - Once condition improves CODE STATUS: FULL CODE Visit type - Emergency Visit Emergency Visit: Yes ED Registration Date: 12/16/17 Care time: The patient presented to the Emergency Department on the above date and was hospitalized for further evaluation of their emergent condition. - New Patient This patient is new to me today: No - Critical Care Critical Care patient: No
--- NOTE | 2017-12-17 16:33 | PN ---
Progress Note (short form) - Note Progress Note: cc: sob S: hypertensive today. hydralazine increased to 50 mg tid. Nitro patch not placed until the afternoon. sob improving. + intermittent palps. no dizziness , cp. Sees dr johansen for cardiology. Current Medications Acetaminophen (Tylenol -) 650 mg PO Q6H PRN PRN Reason: PAIN Last Admin: 12/17/17 02:53 Dose: 650 mg Albuterol Sulfate (Ventolin 0.083% Nebulizer Soln -) 1 amp NEB RTID [facility] Aspirin (Asa -) 81 mg PO DAILY [facility] Last Admin: 12/17/17 09:50 Dose: 81 mg Budesonide/Formoterol Fumarate (Symbicort 160/4.5mcg -) 2 puff IH BID [facility] Last Admin: 12/17/17 09:51 Dose: 2 puff Carvedilol (Coreg Cr -) 10 mg PO DAILY [facility] Last Admin: 12/17/17 09:50 Dose: 10 mg Clonazepam (Klonopin -) 0.5 mg PO BID [facility] Last Admin: 12/17/17 09:50 Dose: 0.5 mg Ezetimibe (Zetia -) 10 mg PO Q48H [facility] Last Admin: 12/17/17 09:51 Dose: 10 mg Ferrous Sulfate (Feosol -) 325 mg PO BID [facility] Last Admin: 12/17/17 09:50 Dose: 325 mg Heparin Sodium (Porcine) (Heparin -) 5,000 unit SQ TID [facility] Last Admin: 12/17/17 14:46 Dose: 5,000 unit Hydralazine HCl (Apresoline -) 50 mg PO TID [facility] Last Admin: 12/17/17 14:46 Dose: 50 mg Insulin Aspart (Novolog Vial Sliding Scale -) 1 vial SQ [facility] PRN Reason: Protocol Insulin Aspart (Novolog Vial Sliding Scale -) 1 vial SQ TIDAC [facility] PRN Reason: Protocol Last Admin: 12/17/17 12:43 Dose: 4 units Nitroglycerin (Nitro-Dur Patch -) 0.2 mg TD DAILY [facility] Prasugrel (Effient -) 10 mg PO DAILY [facility] Last Admin: 12/17/17 09:50 Dose: 10 mg Rosuvastatin Calcium (Crestor -) 10 mg PO HS [facility] Last Admin: 12/16/17 23:30 Dose: 10 mg Torsemide (Demadex -) 20 mg PO DAILY [facility] Last Admin: 12/17/17 09:50 Dose: 20 mg pe: Vital Signs - 24 hr 12/17/17 12/17/17 12/17/17 00:05 01:30 02:44 Temperature 97.7 F 98.1 F Pulse Rate 98 H 98 H Pulse Rate [ 82 Apical] Respiratory 19 20 Rate Blood Pressure 194/98 154/85 Blood Pressure 131/79 [Right] O2 Sat by Pulse 98 Oximetry (%) 12/17/17 12/17/17 12/17/17 06:11 08:00 10:00 Temperature 97.7 F 98.3 F Pulse Rate 99 H 94 H Pulse Rate [ Apical] Respiratory 20 20 Rate Blood Pressure 194/110 190/100 Blood Pressure [Right] O2 Sat by Pulse 95 Oximetry (%) 12/17/17 12/17/17 11:51 14:02 Temperature 97 F L Pulse Rate 92 H 88 Pulse Rate [ Apical] Respiratory 22 Rate Blood Pressure 170/98 145/80 Blood Pressure [Right] O2 Sat by Pulse Oximetry (%) Intake & Output 12/15/17 12/16/17 12/17/17 12/18/17 07:59 07:59 07:59 07:59 Weight 234 lb NAD, calm JVD flat, neck supple diminished air mov't. trace wheezes (sig improved from yesterday), nl effort RRR nl s1 s2, no mrg. ND PMI + bs soft nt nd, obese. no hsm ext with trace edema. no c/c + dp/pt, no carotid bruits no jaundice, diaphoresis aaox3 CBC, BMP 12/17/17 07:10 12/17/17 07:09 Laboratory Tests 12/06/16 12/16/17 12/16/17 05:30 13:13 22:40 Magnesium Creatine Kinase 93 91 Troponin I 0.32 H 0.39 H Albumin TSH 0.52 12/17/17 12/17/17 07:09 07:09 Magnesium 2.1 Creatine Kinase 92 Troponin I 0.35 H Albumin 3.3 L TSH ECG: sinus tachycardia, 109 bpm. non-specific t wave abnormailty. similar to priors. cxr: reviewed images and report. CM no acute pathology. Echo 01/15: nl LV/EF; dd2, hi E/e' = hi LAP. nl RV. mild LAE. mild-mod MR, mod TR. mild pHTN (46 mmHg). Echo 09/14/16: Low nl LVEF. RV not well seen. 1+ MR. Stress Echo 01/15: 3:53min; no STs. Rest images showed: Inferior, inferolateral and [id number] lateral phillip not well seen; normal wall motion in remaining territories. Normal LVEF (approximately 55-60%). Post-exercise images showed: Inferior, inferolateral and [id number] lateral phillip not well seen; normal augmentation of contraction in remaining territories , with appropriate increase in LVEF (approximately 60-65%). No significant MR seen. Mild TR. Peak TR gradient is at least 47 mmHg (nonspecific finding). PFTs '09: moderate restr defect 62 yo with h/o CAD--h/o NSTEMI '13 s/p LAD KAREN PCI 09/2013, and prox LCx KAREN PCI 2014, dchf, HTN, hl, lone afib/PSVT, MR, pHTN, KATINA, copd, NAFLD, CKD, renal stones (obstructive, with R hydro, s/p stent) , anemia, IDDM who presents to the ED with shortness of breath. copd/bronchospasm , acute exacerbation: -concern for acute exacerbation on initial exam with diminshed air movement and prominent wheezing at office visit with Dr. Johansen. He discussed with her accreditation manager Dr. Bruner --> rec ER evaluation. - 12/17 exam, sx's improving. ongoing mgm't per pmd/pulm chronic diastolic CHF - hx of "flash" pulmonary edema in the past--felt to be a combo of diast dysf, htn and ischemic heart disease. - currently without obvious signs of volume overload. Weight in office on day of admission 8 lbs down from priors, with poor po intake 2/2 resp sx's prior to admit. Con't home torsemide 20 mg/day, monitor for signs of volume depletion. Monitor volume status on steroids. daily weights. i/o's. daily bmp. HTN: - intolerant of multiple BP meds before--diovan, micardis, verap, norvasc, nifedipine, nisoldipine, catapres patch, see below. - home regimen was coreg CR 10, hydral 25 TID, nitro patch 0.2mg (BUCKNER with higher doses)--only takes hydral prn as her bp is labile and often is symptomatically low with hydral. previously coreg dose decreased to 10mg here to see if it helped with bronchospasm -avoid RAAS blockers given labile creatinines and Stage IV CKD. Per prior notes , Dr. Johansen would prefer to avoid minoxidil given very labile volume retention behavior. -bp labile here, suboptimal control this morning, but nitro patch not yet resumed. hydral increased to tid today, con't . Resume home ntg patch, con't coreg. Monitor for need to further uptitrate regimen. CAD with elevated troponin: -s/p prox LCx KAREN PCI 2014 for crescendo angina, also with prior mLAD stent ( patent 2014), and known residual 70-80% distal RCA disease -trop 0.3 with flat trend when admitted 05/2017. at the time chronic elevation thought to be 2/2 hi LV filling pressures in setting of ckd and residual cad. Now again with elevated troponin. Similar to priors. ~ 0.3 with flat trend. EKG unchanged. No concern for acs. - Continue home DAPT with ASA and Effient. cont crestor, zetia QOD. con't coreg, resume NTG patch. No ACEI given fluctuating renal function. - Outpatient ischemic evaluation when acute issues resolve at discretion of outpatient retail helper. HPL: - suboptimal control 08/2017: LDL 204- due Myalgias w Atorva/Simva and high dose crestor. tolerating crestor 10 mg, and zetia QOD at home. con't. KATINA / Mod PHTN - compliant with CPAP at home --> con't here. ARF / CKD: - recent baseline creat 2.7-2.9. currently close to baseline. con't to monitor. Remote PAF and PSVT - lone AF episode in setting of dobutamine, no recurrence. No AC thought to be indicated intolerant to many bp meds in past: diovan ineffective micardis (palps) verap (nausea, edema) norvasc 5 bid (edema) nifedipine (sob) nisoldipine (buckner's, palps, incr edema) catapres patch (skin irritation) ? certain bb's before coreg CR
[2017-12-17] MEDS ORDERED: PT OWN MED DRAWER 7, Y5N ONE (17:29)
[2017-12-17] MEDS: NITROGLYCERIN 0.2 MG/HOUR TD PATCH TD SCH (17:30)
[2017-12-17 17:54] VITALS: BMI 39.4
[2017-12-17] MEDS: ROSUVASTATIN CA 10 MG TABLET (FP) PO SCH (21:09)
[2017-12-17] MEDS ORDERED: NITROGLYCERIN 0.2 MG/HOUR TD PATCH TD SCH (22:00)
[2017-12-18] MEDS: ACETAMINOPHEN 325 MG TABLET (FP) PO PRN (00:18)
[2017-12-18] MEDS ORDERED: INSULIN (NOVOLOG) ASPART 100 UNITS/ML 10ML VIAL ONE ×2 (06:22→21:16)
[2017-12-18] MEDS: HEPARIN NA (PORCINE) 5,000 UNITS/ML 1ML VIAL SQ SCH ×3 (06:23→21:24)
[2017-12-18] MEDS: hydrALAZINE HCL 25 MG TABLET (FP) PO SCH ×3 (06:23→21:22)
[2017-12-18] MEDS: INSULIN SLIDING SCALE (NOVOLOG) 1 VIAL SQ SCH ×4 (06:24→21:21)
[2017-12-18] MEDS: ALBUTEROL SO4 0.083% IH SOL 2.5 MG/3 ML VIAL.NEB. NEB SCH ×3 (08:53→20:49)
[2017-12-18 09:34] LABS: ANION GAP 11 (8-16); BLOOD UREA NITROGEN 59 mg/dL (7-18); CALCIUM 9.1 mg/dL (8.5-10.1); CHLORIDE 100 mmol/L (98-107); CO2 25 mmol/L (21-32); CREATININE 3.2 mg/dL (0.55-1.02); GLUCOSE,RANDOM 207 mg/dL (74-106); POTASSIUM 4.8 mmol/L (3.5-5.1); SODIUM 136 mmol/L (136-145)
[2017-12-18] MEDS ORDERED: PT OWN MED DRAWER 7, Y5N ONE (10:15)
[2017-12-18] MEDS: clonazePAM 0.5 MG TABLET PO SCH ×2 (10:23→21:22)
[2017-12-18] MEDS: BUDESONIDE/FORMETEROL FUMARATE 160/4.5 mcg INHALER IH SCH ×2 (10:23→21:23)
[2017-12-18] MEDS: predniSONE 20 MG TABLET (UD) PO SCH (10:23)
[2017-12-18] MEDS: ASPIRIN 81 MG CHEWABLE TABLETS PO SCH (10:24)
[2017-12-18] MEDS: PRASUGREL HCL 10 MG TAB PO SCH (10:24)
[2017-12-18] MEDS: CARVEDILOL PHOSPHATE CR 10 MG CAPSULE PO SCH (10:24)
[2017-12-18] MEDS: TORSEMIDE 20 MG TABLET (FP) PO SCH (10:24)
[2017-12-18] MEDS: FERROUS SO4 325 MG TABLET (FP) PO SCH ×2 (10:24→21:22)
[2017-12-18] MEDS: NITROGLYCERIN 0.2 MG/HOUR TD PATCH TD SCH (10:24)
--- NOTE | 2017-12-18 12:19 | PN ---
Progress Note (short form) - Note Progress Note: Still with nasal congestion and cough. Wheezing is a little better. "Jittery" with Albuterol. Has had itching of the lip and tongue with inhaled antimuscarinics in the past. Intake & Output 12/15/17 12/16/17 12/17/17 12/18/17 23:59 23:59 23:59 23:59 Intake Total 300 Balance 300 Weight 234 lb 237 lb 1 oz 236 lb 3 oz Last Vital Signs Temp Pulse Resp BP Pulse Ox 97.9 F 81 18 162/88 96 12/18/17 08:00 12/18/17 08:00 12/18/17 08:00 12/18/17 08:00 12/18/17 02:00 Active Medications Acetaminophen (Tylenol -) 650 mg PO Q6H PRN PRN Reason: PAIN Last Admin: 12/18/17 00:18 Dose: 650 mg Albuterol Sulfate (Ventolin 0.083% Nebulizer Soln -) 1 amp NEB RTID [facility] Last Admin: 12/18/17 08:53 Dose: 1 amp Aspirin (Asa -) 81 mg PO DAILY [facility] Last Admin: 12/18/17 10:24 Dose: 81 mg Budesonide/Formoterol Fumarate (Symbicort 160/4.5mcg -) 2 puff IH BID [facility] Last Admin: 12/18/17 10:23 Dose: 2 puff Carvedilol (Coreg Cr -) 10 mg PO DAILY [facility] Last Admin: 12/18/17 10:24 Dose: 10 mg Clonazepam (Klonopin -) 0.5 mg PO BID [facility] Last Admin: 12/18/17 10:23 Dose: 0.5 mg Ezetimibe (Zetia -) 10 mg PO Q48H [facility] Last Admin: 12/17/17 09:51 Dose: 10 mg Ferrous Sulfate (Feosol -) 325 mg PO BID [facility] Last Admin: 12/18/17 10:24 Dose: 325 mg Heparin Sodium (Porcine) (Heparin -) 5,000 unit SQ TID [facility] Last Admin: 12/18/17 06:23 Dose: 5,000 unit Hydralazine HCl (Apresoline -) 50 mg PO TID [facility] Last Admin: 12/18/17 06:23 Dose: 50 mg Insulin Aspart (Novolog Vial Sliding Scale -) 1 vial SQ [facility] PRN Reason: Protocol Last Admin: 12/17/17 21:16 Dose: 3 units Insulin Aspart (Novolog Vial Sliding Scale -) 1 vial SQ TIDAC [facility] PRN Reason: Protocol Last Admin: 12/18/17 11:41 Dose: 2 units Nitroglycerin (Nitro-Dur Patch -) 0.2 mg TD DAILY [facility] Last Admin: 12/18/17 10:24 Dose: 0.2 mg Prasugrel (Effient -) 10 mg PO DAILY [facility] Last Admin: 12/18/17 10:24 Dose: 10 mg Prednisone (Deltasone -) 60 mg PO DAILY [facility] Last Admin: 12/18/17 10:23 Dose: 60 mg Rosuvastatin Calcium (Crestor -) 10 mg PO HS [facility] Last Admin: 12/17/17 21:09 Dose: 10 mg Torsemide (Demadex -) 20 mg PO DAILY [facility] Last Admin: 12/18/17 10:24 Dose: 20 mg GENERAL: Awake, alert, and fully oriented, in no acute distress. HEAD: Normal with no signs of trauma. EYES: Pupils equal, round and reactive to light, extraocular movements intact, sclera anicteric, conjunctiva clear. No lid lag. EARS, NOSE, THROAT: Ears normal, nares patent, oropharynx clear without exudates. Moist mucous membranes. NECK: Normal range of motion, supple without lymphadenopathy, JVD, or masses. LUNGS: Breath sounds equal, scattered rhonchi, no wheezes heard HEART: Regular rate and rhythm, normal S1 and S2 without murmur, rub or gallop. ABDOMEN: Soft, nontender, not distended, normoactive bowel sounds, no guarding, no rebound, no masses. No hepatomegaly or splenomegaly. MUSCULOSKELETAL: Normal range of motion at all joints. No bony deformities or tenderness. No CVA tenderness. UPPER EXTREMITIES: 2+ pulses, warm, well-perfused. No cyanosis. No clubbing. Cap refill <2 seconds. No peripheral edema. LOWER EXTREMITIES: 2+ pulses, warm, well-perfused. No calf tenderness.bilateral trace edema NEUROLOGICAL: Non-focal PSYCHIATRIC: Cooperative. Good eye contact. Appropriate mood and affect. SKIN: Warm, dry, normal turgor, no rashes or lesions noted. Laboratory Results - last 24 hr 12/17/17 12/17/17 12/17/17 12:41 16:42 21:08 Sodium Potassium Chloride Carbon Dioxide Anion Gap BUN Creatinine POC Glucometer [phone] 294 Random Glucose Calcium 12/18/17 12/18/17 12/18/17 06:19 08:00 11:40 Sodium 136 Potassium 4.8 Chloride 100 Carbon Dioxide 25 Anion Gap 11 BUN 59 H Creatinine 3.2 H POC Glucometer 300 195 Random Glucose 207 H Calcium 9.1 Problem List - Problems (1) Acute on chronic heart failure Code(s): I50.9 - HEART FAILURE, UNSPECIFIED (2) CAD (coronary artery disease) Code(s): I25.10 - ATHSCL HEART DISEASE OF [place] CORONARY ARTERY W/O ANG PCTRS (3) Acute exacerbation of asthma with allergic rhinitis Code(s): J45.901 - UNSPECIFIED ASTHMA WITH (ACUTE) EXACERBATION (4) KATINA (obstructive sleep apnea) Code(s): G47.33 - OBSTRUCTIVE SLEEP APNEA (ADULT) (PEDIATRIC) (5) CKD (chronic kidney disease) Code(s): N18.9 - CHRONIC KIDNEY DISEASE, UNSPECIFIED ASSESSMENT/PLAN: This is a 62 year old female with a significant past medical history of diastolic heart failure, CAD, KATINA, pulmonary hypertension, presents with dyspnea on exertion, cough with white sputum production. Impression: Acute exacerbation of chronic diastolic CHF possible acute bronchitis precipitated by viral illness KATINA HTN CAD with chronically elevated troponin; above baseline CKD Plan: Short Prednisone course x 3 days bronchodilators prn Observe off antibiotics CPAP AHS Lasix Daily weight Nasal sprays NO ANTI-MUSCARINICS Dr Oliveira
--- NOTE | 2017-12-18 14:32 | PN ---
Progress Note (short form) - Note Progress Note: Subjective: The patient was seen and examined at the bedside, she reports feeling "terrible" today. She states she had increased wheezing this morning and was coughing so much she vomited. Current Medications Generic Name Dose Route Start Last Admin Trade Name Freq PRN Reason Stop Dose Admin Acetaminophen 650 mg 12/17/17 02:47 12/18/17 00:18 Tylenol - PO 650 mg Q6H PRN Administration PAIN Albuterol Sulfate 1 amp 12/17/17 20:00 12/18/17 14:02 Ventolin 0.083% Nebulizer Soln - NEB 1 amp RTID [facility] Administration Aspirin 81 mg 12/17/17 10:00 12/18/17 10:24 Asa - PO 81 mg DAILY [facility] Administration Budesonide/Formoterol Fumarate 2 puff 12/16/17 22:00 12/18/17 10:23 Symbicort 160/4.5mcg - IH 2 puff BID [facility] Administration Carvedilol 10 mg 12/17/17 10:00 12/18/17 10:24 Coreg Cr - PO 10 mg DAILY [facility] Administration Clonazepam 0.5 mg 12/16/17 22:00 12/18/17 10:23 Klonopin - PO 0.5 mg BID [facility] Administration Ezetimibe 10 mg 12/17/17 10:00 12/17/17 09:51 Zetia - PO 10 mg Q48H [facility] Administration Ferrous Sulfate 325 mg 12/16/17 22:00 12/18/17 10:24 Feosol - PO 325 mg BID [facility] Administration Fluticasone Propionate 1 spray 12/18/17 12:30 Flonase - NS BID [facility] Heparin Sodium (Porcine) 5,000 unit 12/17/17 06:00 12/18/17 14:30 Heparin - SQ 5,000 unit TID [facility] Administration Hydralazine HCl 50 mg 12/17/17 14:00 12/18/17 14:30 Apresoline - PO 50 mg TID [facility] Administration Insulin Aspart 1 vial 12/17/17 22:00 12/17/17 21:16 Novolog Vial Sliding Scale - SQ 3 units HS [facility] Administration Protocol Insulin Aspart 1 vial 12/17/17 07:00 12/18/17 11:41 Novolog Vial Sliding Scale - SQ 2 units TIDAC [facility] Administration Protocol Nitroglycerin 0.2 mg 12/17/17 17:15 12/18/17 10:24 Nitro-Dur Patch - TD 0.2 mg DAILY [facility] Administration Prasugrel 10 mg 12/17/17 10:00 12/18/17 10:24 Effient - PO 10 mg DAILY [facility] Administration Prednisone 60 mg 12/18/17 10:00 12/18/17 10:23 Deltasone - PO 60 mg DAILY [facility] Administration Rosuvastatin Calcium 10 mg 12/16/17 22:00 12/17/17 21:09 Crestor - PO 10 mg HS [facility] Administration Sodium Chloride 2 spray 12/18/17 12:20 [place] - NS TID PRN NASAL CONGESTION Torsemide 20 mg 12/17/17 10:00 12/18/17 10:24 Demadex - PO 20 mg DAILY [facility] Administration Objective: Vital Signs Period Temp Pulse Resp BP Sys/Shankar Pulse Ox Last 24 Hr 97.5 F-98.2 F 78-95 18-20 148-186/75-96 94-98 Physical Exam: General: NAD, A&Ox3 Lungs: CTA bilaterally, +cough Heart: RRR, S1S2 Abd: Soft, non-tender, non-distended. Normoactive bowel sounds Ext: Warm, well-perfused. 2+ DP/PT bilaterally Neuro: CN 2-12 intact CBCD WBC 9.1 K/mm3 (4.0-10.0) 12/17/17 07:10 RBC 4.16 M/mm3 (3.60-5.2) 12/17/17 07:10 Hgb 10.2 GM/dL (10.7-15.3) L 12/17/17 07:10 Hct 31.8 % (32.4-45.2) L 12/17/17 07:10 MCV 76.5 fl (80-96) L 12/17/17 07:10 MCHC 32.1 g/dl (32.0-36.0) 12/17/17 07:10 RDW 13.1 % (11.6-15.6) 12/17/17 07:10 Plt Count 273 K/MM3 (134-434) 12/17/17 07:10 MPV 8.2 fl (7.5-11.1) 12/17/17 07:10 CMP Sodium 136 mmol/L (136-145) 12/18/17 08:00 Potassium 4.8 mmol/L (3.5-5.1) 12/18/17 08:00 Chloride 100 mmol/L (98-107) 12/18/17 08:00 Carbon Dioxide 25 mmol/L (21-32) 12/18/17 08:00 Anion Gap 11 (8-16) 12/18/17 08:00 BUN 59 mg/dL (7-18) H 12/18/17 08:00 Creatinine 3.2 mg/dL (0.55-1.02) H 12/18/17 08:00 Creat Clearance w eGFR 16.44 (>60) 12/17/17 07:09 Random Glucose 207 mg/dL (74-106) H 12/18/17 08:00 Calcium 9.1 mg/dL (8.5-10.1) 12/18/17 08:00 Total Bilirubin 0.2 mg/dL (0.2-1.0) D 12/17/17 07:09 AST 18 U/L (15-37) 12/17/17 07:09 ALT 20 U/L (12-78) 12/17/17 07:09 Alkaline Phosphatase 113 U/L (45-117) 12/17/17 07:09 Total Protein 7.5 g/dl (6.4-8.2) 12/17/17 07:09 Albumin 3.3 g/dl (3.4-5.0) L 12/17/17 07:09 CARDIAC ENZYMES Creatine Kinase 92 IU/L (26-192) 12/17/17 07:09 Troponin I 0.35 ng/ml (0.00-0.05) H 12/17/17 07:09 Assessment: This is a 62 year old female with PMHx of diastolic heart failure, IDDM, CAD s/p CABG, KATINA, pulmonary HTN, who presented to the ED with productive cough x5 days and shortness of breath with wheezing. Plan: 1) Acute COPD exacerbation - Will switch to po steroids for rapid taper - Continue Symbicort - Continue Albuterol nebs - O2 via NC prn - Appreciate pulmonary consult 2) CAD with elevated troponin - Elevated on previous admission (05/2017): flat trend - Cardiac monitoring - ASA 325mg given in ED - Continue ASA 81 mg po daily - Appreciate cardiology consult 3) CAD s/p cardiac stents - Continue Effient - Continue ASA - Continue Coreg - Continue statin 4) Chronic diastolic heart failure - Weight down 8lbs since 08/2017 - Discussed with Dr. Wooten, no evidence of CHF exacerbation at this time. Chest X-ray with no acute lung disease present - Continue home Torsemide 20mg per day 5) F/E/N: - Diabetic Diet - Monitor electrolytes 6) Prophylaxis: - OOB ambulating - Heparin 5,000u sq tid 7) Dispo: - Once condition improves CODE STATUS: FULL CODE Visit type - Emergency Visit Emergency Visit: Yes ED Registration Date: 12/16/17 Care time: The patient presented to the Emergency Department on the above date and was hospitalized for further evaluation of their emergent condition. - New Patient This patient is new to me today: No - Critical Care Critical Care patient: No
[2017-12-18] MEDS: FLUTICASONE PROP 0.05% 16 GM NASAL SPRAY NS SCH ×2 (14:59→21:24)
[2017-12-18] MEDS: SODIUM CHLORIDE NASAL SPRAY 44 ML BOTTLE NS PRN (14:59)
[2017-12-18] MEDS: POLYETHYLENE GLYCOL 3350 119 GM BTL PO SCH (15:34)
[2017-12-18] MEDS: INSULIN DETEMIR 100 UNITS/ML MDV SQ SCH (21:21)
[2017-12-18] MEDS: ROSUVASTATIN CA 10 MG TABLET (FP) PO SCH (21:22)
[2017-12-19] MEDS: hydrALAZINE HCL 25 MG TABLET (FP) PO SCH ×4 (05:49→21:25)
[2017-12-19] MEDS: HEPARIN NA (PORCINE) 5,000 UNITS/ML 1ML VIAL SQ SCH ×3 (05:49→21:27)
[2017-12-19] MEDS: ACETAMINOPHEN 325 MG TABLET (FP) PO PRN ×2 (05:58→12:13)
[2017-12-19] MEDS: INSULIN SLIDING SCALE (NOVOLOG) 1 VIAL SQ SCH ×4 (05:59→21:27)
[2017-12-19] MEDS: ALBUTEROL SO4 0.083% IH SOL 2.5 MG/3 ML VIAL.NEB. NEB SCH ×3 (07:40→20:50)
[2017-12-19] MEDS ORDERED: PT OWN MED DRAWER 7, Y5N ONE (09:31)
[2017-12-19] MEDS: TORSEMIDE 20 MG TABLET (FP) PO SCH ×2 (09:41→09:50)
[2017-12-19] MEDS: FERROUS SO4 325 MG TABLET (FP) PO SCH ×2 (09:41→21:25)
[2017-12-19] MEDS: ASPIRIN 81 MG CHEWABLE TABLETS PO SCH (09:41)
[2017-12-19] MEDS: clonazePAM 0.5 MG TABLET PO SCH ×2 (09:41→21:27)
[2017-12-19] MEDS: predniSONE 20 MG TABLET (UD) PO SCH (09:41)
--- NOTE | 2017-12-19 09:41 | PN ---
Progress Note (short form) - Note Progress Note: Subjective: The patient was seen and examined at the bedside, she reports feeling better today but that she does not want to be discharged until tomorrow. Current Medications Generic Name Dose Route Start Last Admin Trade Name Freq PRN Reason Stop Dose Admin Acetaminophen 650 mg 12/17/17 02:47 12/19/17 05:58 Tylenol - PO 650 mg Q6H PRN Administration PAIN Albuterol Sulfate 1 amp 12/17/17 20:00 12/19/17 07:40 Ventolin 0.083% Nebulizer Soln - NEB 1 amp RTID [facility] Administration Aspirin 81 mg 12/17/17 10:00 12/18/17 10:24 Asa - PO 81 mg DAILY [facility] Administration Budesonide/Formoterol Fumarate 2 puff 12/16/17 22:00 12/18/17 21:23 Symbicort 160/4.5mcg - IH 2 puff BID [facility] Administration Carvedilol 10 mg 12/17/17 10:00 12/18/17 10:24 Coreg Cr - PO 10 mg DAILY [facility] Administration Clonazepam 0.5 mg 12/16/17 22:00 12/18/17 21:22 Klonopin - PO 0.5 mg BID [facility] Administration Ezetimibe 10 mg 12/17/17 10:00 12/17/17 09:51 Zetia - PO 10 mg Q48H [facility] Administration Ferrous Sulfate 325 mg 12/16/17 22:00 12/18/17 21:22 Feosol - PO 325 mg BID [facility] Administration Fluticasone Propionate 1 spray 12/18/17 12:30 12/18/17 21:24 Flonase - NS 1 spray BID [facility] Administration Heparin Sodium (Porcine) 5,000 unit 12/17/17 06:00 12/19/17 05:49 Heparin - SQ 5,000 unit TID [facility] Administration Hydralazine HCl 50 mg 12/17/17 14:00 12/19/17 05:49 Apresoline - PO 50 mg TID [facility] Administration Insulin Aspart 1 vial 12/17/17 22:00 12/18/17 21:21 Novolog Vial Sliding Scale - SQ 4 units HS [facility] Administration Protocol Insulin Aspart 1 vial 12/17/17 07:00 12/19/17 05:59 Novolog Vial Sliding Scale - SQ 3 units TIDAC [facility] Administration Protocol Insulin Detemir 30 units 12/18/17 22:00 12/18/17 21:21 Levemir Vial SQ 30 units HS [facility] Administration Nitroglycerin 0.2 mg 12/17/17 17:15 12/18/17 10:24 Nitro-Dur Patch - TD 0.2 mg DAILY [facility] Administration Polyethylene Glycol 17 gm 12/18/17 15:00 12/18/17 15:34 Miralax (For Daily Use) - PO 17 gm DAILY [facility] Administration Prasugrel 10 mg 12/17/17 10:00 12/18/17 10:24 Effient - PO 10 mg DAILY [facility] Administration Prednisone 60 mg 12/18/17 10:00 12/18/17 10:23 Deltasone - PO 60 mg DAILY [facility] Administration Rosuvastatin Calcium 10 mg 12/16/17 22:00 12/18/17 21:22 Crestor - PO 10 mg HS [facility] Administration Sodium Chloride 2 spray 12/18/17 12:20 12/18/17 14:59 [place] [employer] Nasal Trade - NS 2 spray TID PRN Administration NASAL CONGESTION Torsemide 20 mg 12/17/17 10:00 12/18/17 10:24 Demadex - PO 20 mg DAILY [facility] Administration Objective: Vital Signs Period Temp Pulse Resp BP Sys/Shankar Pulse Ox Last 24 Hr 97.6 F-98.6 F 72-88 18-20 150-166/74-96 96-99 Physical Exam: General: NAD, A&Ox3 Lungs: CTA bilaterally, +cough Heart: RRR, S1S2 Abd: Soft, non-tender, non-distended. Normoactive bowel sounds Ext: Warm, well-perfused. 2+ DP/PT bilaterally Neuro: CN 2-12 intact CBCD WBC 9.1 K/mm3 (4.0-10.0) 12/17/17 07:10 RBC 4.16 M/mm3 (3.60-5.2) 12/17/17 07:10 Hgb 10.2 GM/dL (10.7-15.3) L 12/17/17 07:10 Hct 31.8 % (32.4-45.2) L 12/17/17 07:10 MCV 76.5 fl (80-96) L 12/17/17 07:10 MCHC 32.1 g/dl (32.0-36.0) 12/17/17 07:10 RDW 13.1 % (11.6-15.6) 12/17/17 07:10 Plt Count 273 K/MM3 (134-434) 12/17/17 07:10 MPV 8.2 fl (7.5-11.1) 12/17/17 07:10 CMP Sodium 136 mmol/L (136-145) 12/18/17 08:00 Potassium 4.8 mmol/L (3.5-5.1) 12/18/17 08:00 Chloride 100 mmol/L (98-107) 12/18/17 08:00 Carbon Dioxide 25 mmol/L (21-32) 12/18/17 08:00 Anion Gap 11 (8-16) 12/18/17 08:00 BUN 59 mg/dL (7-18) H 12/18/17 08:00 Creatinine 3.2 mg/dL (0.55-1.02) H 12/18/17 08:00 Creat Clearance w eGFR 16.44 (>60) 12/17/17 07:09 Random Glucose 207 mg/dL (74-106) H 12/18/17 08:00 Calcium 9.1 mg/dL (8.5-10.1) 12/18/17 08:00 Total Bilirubin 0.2 mg/dL (0.2-1.0) D 12/17/17 07:09 AST 18 U/L (15-37) 12/17/17 07:09 ALT 20 U/L (12-78) 12/17/17 07:09 Alkaline Phosphatase 113 U/L (45-117) 12/17/17 07:09 Total Protein 7.5 g/dl (6.4-8.2) 12/17/17 07:09 Albumin 3.3 g/dl (3.4-5.0) L 12/17/17 07:09 CARDIAC ENZYMES Creatine Kinase 92 IU/L (26-192) 12/17/17 07:09 Troponin I 0.35 ng/ml (0.00-0.05) H 12/17/17 07:09 Assessment: This is a 62 year old female with PMHx of diastolic heart failure, IDDM, CAD s/p CABG, KATINA, pulmonary HTN, who presented to the ED with productive cough x5 days and shortness of breath with wheezing. Plan: 1) Acute COPD exacerbation - Continue Prednisone - Continue Symbicort - Continue Albuterol nebs - O2 via NC prn - Appreciate pulmonary consult 2) CAD with elevated troponin - Elevated on previous admission (05/2017): flat trend - Cardiac monitoring - ASA 325mg given in ED - Continue ASA 81 mg po daily - Appreciate cardiology consult 3) CAD s/p cardiac stents - Continue Effient - Continue ASA - Continue Coreg - Continue statin 4) HTN - Continue Coreg - Continue Hydralazine 50mg po tid - Continue Toresemide 20mg po daily (refused today) - Continue Nitro patch 5) Chronic diastolic heart failure - Weight down 8lbs since 08/2017 - Discussed with Dr. Wooten, no evidence of CHF exacerbation at this time. Chest X-ray with no acute lung disease present - Continue home Torsemide 20mg per day 6) F/E/N: - Diabetic Diet - Monitor electrolytes 7) Prophylaxis: - OOB ambulating - Heparin 5,000u sq tid 8) Dispo: - Once condition improves CODE STATUS: FULL CODE Visit type - Emergency Visit Emergency Visit: Yes ED Registration Date: 12/16/17 Care time: The patient presented to the Emergency Department on the above date and was hospitalized for further evaluation of their emergent condition. - New Patient This patient is new to me today: No - Critical Care Critical Care patient: No
[2017-12-19] MEDS: CARVEDILOL PHOSPHATE CR 10 MG CAPSULE PO SCH (09:42)
[2017-12-19] MEDS: PRASUGREL HCL 10 MG TAB PO SCH (09:42)
[2017-12-19] MEDS: FLUTICASONE PROP 0.05% 16 GM NASAL SPRAY NS SCH ×2 (09:42→21:25)
[2017-12-19] MEDS: POLYETHYLENE GLYCOL 3350 119 GM BTL PO SCH (09:44)
[2017-12-19] MEDS: NITROGLYCERIN 0.2 MG/HOUR TD PATCH TD SCH (09:45)
[2017-12-19] MEDS: BUDESONIDE/FORMETEROL FUMARATE 160/4.5 mcg INHALER IH SCH ×2 (09:45→21:25)
[2017-12-19] MEDS: EZETIMIBE 10 MG TABLET (FP) PO SCH (09:46)
[2017-12-19] MEDS: SODIUM CHLORIDE NASAL SPRAY 44 ML BOTTLE NS PRN (09:47)
--- NOTE | 2017-12-19 11:31 | PN ---
Progress Note (short form) - Note Progress Note: Reports increasing wheezing and congestion overnight. Nasal congestion slightly better with use of nasal saline/spray. . Intake & Output 12/16/17 12/17/17 12/18/17 12/19/17 23:59 23:59 23:59 23:59 Intake Total 300 1150 1000 Balance 300 1150 1000 Weight 234 lb 237 lb 1 oz 236 lb 3 oz 235 lb 4 oz Last Vital Signs Temp Pulse Resp BP Pulse Ox 98.6 F 87 20 154/80 99 12/19/17 09:38 12/19/17 09:38 12/19/17 09:38 12/19/17 09:38 12/19/17 02:00 Active Medications Acetaminophen (Tylenol -) 650 mg PO Q6H PRN PRN Reason: PAIN Last Admin: 12/19/17 05:58 Dose: 650 mg Albuterol Sulfate (Ventolin 0.083% Nebulizer Soln -) 1 amp NEB RTID [facility] Last Admin: 12/19/17 07:40 Dose: 1 amp Aspirin (Asa -) 81 mg PO DAILY [facility] Last Admin: 12/19/17 09:41 Dose: 81 mg Budesonide/Formoterol Fumarate (Symbicort 160/4.5mcg -) 2 puff IH BID [facility] Last Admin: 12/19/17 09:45 Dose: 2 puff Carvedilol (Coreg Cr -) 10 mg PO DAILY [facility] Last Admin: 12/19/17 09:42 Dose: 10 mg Clonazepam (Klonopin -) 0.5 mg PO BID [facility] Last Admin: 12/19/17 09:41 Dose: 0.5 mg Ezetimibe (Zetia -) 10 mg PO Q48H [facility] Last Admin: 12/19/17 09:46 Dose: 10 mg Ferrous Sulfate (Feosol -) 325 mg PO BID [facility] Last Admin: 12/19/17 09:41 Dose: 325 mg Fluticasone Propionate (Flonase -) 1 spray NS BID [facility] Last Admin: 12/19/17 09:42 Dose: 1 spray Heparin Sodium (Porcine) (Heparin -) 5,000 unit SQ TID [facility] Last Admin: 12/19/17 05:49 Dose: 5,000 unit Hydralazine HCl (Apresoline -) 50 mg PO TID [facility] Last Admin: 12/19/17 05:49 Dose: 50 mg Insulin Aspart (Novolog Vial Sliding Scale -) 1 vial SQ HS [facility] PRN Reason: Protocol Last Admin: 12/18/17 21:21 Dose: 4 units Insulin Aspart (Novolog Vial Sliding Scale -) 1 vial SQ TIDAC [facility] PRN Reason: Protocol Last Admin: 12/19/17 05:59 Dose: 3 units Insulin Detemir (Levemir Vial) 30 units SQ HS [facility] Last Admin: 12/18/17 21:21 Dose: 30 units Nitroglycerin (Nitro-Dur Patch -) 0.2 mg TD DAILY [facility] Last Admin: 12/19/17 09:45 Dose: 0.2 mg Polyethylene Glycol (Miralax (For Daily Use) -) 17 gm PO DAILY [facility] Last Admin: 12/19/17 09:44 Dose: 17 gm Prasugrel (Effient -) 10 mg PO DAILY [facility] Last Admin: 12/19/17 09:42 Dose: 10 mg Prednisone (Deltasone -) 60 mg PO DAILY [facility] Last Admin: 12/19/17 09:41 Dose: 60 mg Rosuvastatin Calcium (Crestor -) 10 mg PO [facility] Last Admin: 12/18/17 21:22 Dose: 10 mg Sodium Chloride ([place] Nasal [place] -) 2 spray NS TID PRN PRN Reason: NASAL CONGESTION Last Admin: 12/19/17 09:47 Dose: 2 spray Torsemide (Demadex -) 20 mg PO DAILY [facility] Last Admin: 12/19/17 09:50 Dose: Not Given GENERAL: Awake, alert, and fully oriented, in no acute distress. HEAD: Normal with no signs of trauma. EYES: Pupils equal, round and reactive to light, extraocular movements intact, sclera anicteric, conjunctiva clear. No lid lag. EARS, NOSE, THROAT: Ears normal, nares patent, oropharynx clear without exudates. Moist mucous membranes. NECK: Normal range of motion, supple without lymphadenopathy, JVD, or masses. LUNGS: Breath sounds equal, scattered rhonchi, no wheezes heard HEART: Regular rate and rhythm, normal S1 and S2 without murmur, rub or gallop. ABDOMEN: Soft, nontender, not distended, normoactive bowel sounds, no guarding, no rebound, no masses. No hepatomegaly or splenomegaly. MUSCULOSKELETAL: Normal range of motion at all joints. No bony deformities or tenderness. No CVA tenderness. UPPER EXTREMITIES: 2+ pulses, warm, well-perfused. No cyanosis. No clubbing. Cap refill <2 seconds. No peripheral edema. LOWER EXTREMITIES: 2+ pulses, warm, well-perfused. No calf tenderness.bilateral trace edema NEUROLOGICAL: Non-focal PSYCHIATRIC: Cooperative. Good eye contact. Appropriate mood and affect. SKIN: Warm, dry, normal turgor, no rashes or lesions noted. Laboratory Results - last 24 hr 12/18/17 12/18/17 12/19/17 11:40 21:19 05:49 POC Glucometer 195 307 241 Problem List - Problems (1) Acute on chronic heart failure Code(s): I50.9 - HEART FAILURE, UNSPECIFIED (2) CAD (coronary artery disease) Code(s): I25.10 - ATHSCL HEART DISEASE OF [place] CORONARY ARTERY W/O ANG PCTRS (3) Acute exacerbation of asthma with allergic rhinitis Code(s): J45.901 - UNSPECIFIED ASTHMA WITH (ACUTE) EXACERBATION (4) KATINA (obstructive sleep apnea) Code(s): G47.33 - OBSTRUCTIVE SLEEP APNEA (ADULT) (PEDIATRIC) (5) CKD (chronic kidney disease) Code(s): N18.9 - CHRONIC KIDNEY DISEASE, UNSPECIFIED ASSESSMENT/PLAN: This is a 62 year old female with a significant past medical history of diastolic heart failure, CAD, KATINA, pulmonary hypertension, presents with dyspnea on exertion, cough with white sputum production. Impression: Acute exacerbation of chronic diastolic CHF possible acute bronchitis precipitated by viral illness KATINA HTN CAD with chronically elevated troponin; above baseline CKD Plan: Short Prednisone course x 3 days bronchodilators prn Observe off antibiotics CPAP AHS Lasix Daily weight Nasal sprays D/C planning in the next 24 hours NO ANTI-MUSCARINICS Dr Oliveira
[2017-12-19] MEDS ORDERED: INSULIN (NOVOLOG) ASPART 100 UNITS/ML 10ML VIAL ONE (21:20)
[2017-12-19] MEDS: ROSUVASTATIN CA 10 MG TABLET (FP) PO SCH (21:25)
[2017-12-19] MEDS: INSULIN DETEMIR 100 UNITS/ML MDV SQ SCH (21:26)
[2017-12-20] MEDS: hydrALAZINE HCL 25 MG TABLET (FP) PO SCH ×2 (06:05→13:59)
[2017-12-20] MEDS: HEPARIN NA (PORCINE) 5,000 UNITS/ML 1ML VIAL SQ SCH ×2 (06:06→14:00)
[2017-12-20] MEDS: INSULIN SLIDING SCALE (NOVOLOG) 1 VIAL SQ SCH ×3 (06:06→16:23)
[2017-12-20 08:19] LABS: ANION GAP 6 (8-16); BLOOD UREA NITROGEN 65 mg/dL (7-18); CALCIUM 8.4 mg/dL (8.5-10.1); CHLORIDE 104 mmol/L (98-107); CO2 28 mmol/L (21-32); CREATININE 2.8 mg/dL (0.55-1.02); GLUCOSE,RANDOM 116 mg/dL (74-106); POTASSIUM 4.7 mmol/L (3.5-5.1); SODIUM 138 mmol/L (136-145)
[2017-12-20] MEDS: ALBUTEROL SO4 0.083% IH SOL 2.5 MG/3 ML VIAL.NEB. NEB SCH ×2 (08:54→13:20)
--- NOTE | 2017-12-20 09:05 | PN ---
Progress Note, Physician Chief Complaint: wheezing, sob History of Present Illness: breathing much better. little wheeze/cough no cp no fluid in abdomen, legs (i.e. her HF sx) no presyncope - Current Medication List Current Medications: Active Medications Acetaminophen (Tylenol -) 650 mg PO Q6H PRN PRN Reason: PAIN Last Admin: 12/19/17 12:13 Dose: 650 mg Albuterol Sulfate (Ventolin 0.083% Nebulizer Soln -) 1 amp NEB RTID [facility] Last Admin: 12/20/17 08:54 Dose: 1 amp Aspirin (Asa -) 81 mg PO DAILY [facility] Last Admin: 12/19/17 09:41 Dose: 81 mg Budesonide/Formoterol Fumarate (Symbicort 160/4.5mcg -) 2 puff IH BID [facility] Last Admin: 12/19/17 21:25 Dose: 2 puff Carvedilol (Coreg Cr -) 10 mg PO DAILY [facility] Last Admin: 12/19/17 09:42 Dose: 10 mg Clonazepam (Klonopin -) 0.5 mg PO BID [facility] Last Admin: 12/19/17 21:27 Dose: 0.5 mg Ezetimibe (Zetia -) 10 mg PO Q48H [facility] Last Admin: 12/19/17 09:46 Dose: 10 mg Ferrous Sulfate (Feosol -) 325 mg PO BID [facility] Last Admin: 12/19/17 21:25 Dose: 325 mg Fluticasone Propionate (Flonase -) 1 spray NS BID [facility] Last Admin: 12/19/17 21:25 Dose: 1 spray Heparin Sodium (Porcine) (Heparin -) 5,000 unit SQ TID [facility] Last Admin: 12/20/17 06:06 Dose: 5,000 unit Hydralazine HCl (Apresoline -) 50 mg PO TID [facility] Last Admin: 12/20/17 06:05 Dose: 50 mg Insulin Aspart (Novolog Vial Sliding Scale -) 1 vial SQ HS [facility] PRN Reason: Protocol Last Admin: 12/19/17 21:27 Dose: 8 units Insulin Aspart (Novolog Vial Sliding Scale -) 1 vial SQ TIDAC [facility] PRN Reason: Protocol Last Admin: 12/20/17 06:06 Dose: Not Given Insulin Detemir (Levemir Vial) 30 units SQ [facility] Last Admin: 12/19/17 21:26 Dose: 30 units Nitroglycerin (Nitro-Dur Patch -) 0.2 mg TD DAILY [facility] Last Admin: 12/19/17 09:45 Dose: 0.2 mg Polyethylene Glycol (Miralax (For Daily Use) -) 17 gm PO DAILY [facility] Last Admin: 12/19/17 09:44 Dose: 17 gm Prasugrel (Effient -) 10 mg PO DAILY [facility] Last Admin: 12/19/17 09:42 Dose: 10 mg Prednisone (Deltasone -) 60 mg PO DAILY [facility] Last Admin: 12/19/17 09:41 Dose: 60 mg Rosuvastatin Calcium (Crestor -) 10 mg PO HS [facility] Last Admin: 12/19/17 21:25 Dose: 10 mg Sodium Chloride ([place] Nasal [place] -) 2 spray NS TID PRN PRN Reason: NASAL CONGESTION Last Admin: 12/19/17 09:47 Dose: 2 spray Torsemide (Demadex -) 20 mg PO DAILY [facility] Last Admin: 12/19/17 09:50 Dose: Not Given - Objective Vital Signs: Vital Signs Temperature 98.5 F 12/20/17 08:00 Pulse Rate 77 12/20/17 08:00 Respiratory Rate 18 12/20/17 08:00 Blood Pressure 162/92 12/20/17 08:00 O2 Sat by Pulse Oximetry (%) 98 12/20/17 02:00 Constitutional: Yes: No Distress, Obese Cardiovascular: Yes: Regular Rate and Rhythm, S1, S2. No: JVD, Gallop, Murmur Respiratory: Yes: Regular. No: CTA Bilaterally, Accessory Muscle Use, Rales, Wheezes Extremities: No: Cold Edema: No Neurological: Yes: Alert, Oriented Psychiatric: No: Agitated Labs: CBC, BMP 12/17/17 07:10 12/20/17 07:15 Assessment/Plan ECG: sinus tachycardia, 109 bpm. non-specific t wave abnormailty. similar to priors. cxr: reviewed images and report. CM no acute pathology. Echo 01/15: nl LV/EF; dd2, hi E/e' = hi LAP. nl RV. mild LAE. mild-mod MR, mod TR. mild pHTN (46 mmHg). Echo 09/14/16: Low nl LVEF. RV not well seen. 1+ MR. Stress Echo 01/15: 3:53min; no STs. Rest images showed: Inferior, inferolateral and [id number] lateral phillip not well seen; normal wall motion in remaining territories. Normal LVEF (approximately 55-60%). Post-exercise images showed: Inferior, inferolateral and [id number] lateral phillip not well seen; normal augmentation of contraction in remaining territories , with appropriate increase in LVEF (approximately 60-65%). No significant MR seen. Mild TR. Peak TR gradient is at least 47 mmHg (nonspecific finding). PFTs '09: moderate restr defect 62 yo with h/o CAD--h/o NSTEMI '13 s/p LAD KAREN PCI 09/2013, and prox LCx KAREN PCI 2014, dchf, HTN, hl, lone afib/PSVT, MR, pHTN, KATINA, copd, NAFLD, CKD, renal stones (obstructive, with R hydro, s/p stent) , anemia, IDDM who presents to the ED with shortness of breath. asthma/acute viral bronchospasm +/- bronchitis: -this is not acute HF exacerbation (pt weight stable, bellow her dry wt. none of her usual HF sx's, severe wheezing/cough which is not her HF sx) -short-course steroids, BDs per pulm chronic diastolic CHF - hx of "flash" pulmonary edema in the past--felt to be a combo of diast dysf, htn and ischemic heart disease. - euvolemic - hold torsemide, as her creat bumped to 3.2 with this--improving since pt refused the med - d/w'd pt--she will resume torsemide as outpt based on home wt's/sx's, as per my prior instructions - prefer cardiomems PAP monitor to guide diuretics (and possibly also spare kidney fxn) but she previously declined. may reconsider once acute pulm process resolved. will re-discuss as outpt HTN: - intolerant of multiple BP meds previously--diovan, micardis, verap, norvasc, nifedipine, nisoldipine, catapres patch - home regimen was coreg CR 10 (dose decr'd for ? worsening bronchospasm tendencies), hydral 25 TID, nitro patch 0.2mg (BUCKNER with higher doses). only takes hydral prn as her bp is labile and often is symptomatically low with hydral. -avoid RAAS blockers given labile creatinines and Stage IV CKD. -bp uncontrolled here, hydral changed bid to tid (correct dose). -bp currently mostly 140s-160s, same meds -would incr hydral to 37.5mg TID next if needed (drops low and has palpitations with 50 tid dose) CAD with elevated troponin: -s/p prox LCx KAREN PCI 2014 for crescendo angina, also with prior mLAD stent ( patent 2014), and known residual 70-80% distal RCA disease -trop 0.3 with flat trend when admitted 05/2017. at the time chronic elevation thought to be 2/2 hi LV filling pressures in setting of ckd and residual cad. Now again with elevated troponin. Similar to priors. ~ 0.3 with flat trend. EKG unchanged. No concern for acs. - Continue home DAPT with ASA and Effient. cont crestor, zetia QOD. con't coreg, resume NTG patch. No ACEI given fluctuating renal function. - Outpatient ischemic evaluation when acute issues resolve at discretion of outpatient cash specialist. HPL: - suboptimal control 08/2017: LDL 204- due Myalgias w Atorva/Simva and high dose crestor. tolerating crestor 10 mg, and zetia QOD at home. con't. KATINA / Mod PHTN - compliant with CPAP at home --> con't here. ARF / CKD: - recent baseline creat had been 2.4-2.6 - last few weeks creat running 2.8-2.9 as outpt. - bumped here >3 briefly, now stable at recent baseline Remote PAF and PSVT - lone AF episode in setting of dobutamine, no recurrence. No AC thought to be indicated ok for d/c from cv p.o.v.
[2017-12-20] MEDS ORDERED: PT OWN MED DRAWER 7, Y5N ONE ×2 (10:38→14:39)
[2017-12-20] MEDS: CARVEDILOL PHOSPHATE CR 10 MG CAPSULE PO SCH (10:41)
[2017-12-20] MEDS: predniSONE 20 MG TABLET (UD) PO SCH (10:41)
[2017-12-20] MEDS: PRASUGREL HCL 10 MG TAB PO SCH (10:41)
[2017-12-20] MEDS: clonazePAM 0.5 MG TABLET PO SCH (10:41)
[2017-12-20] MEDS: TORSEMIDE 20 MG TABLET (FP) PO SCH (10:41)
[2017-12-20] MEDS: ASPIRIN 81 MG CHEWABLE TABLETS PO SCH (10:41)
[2017-12-20] MEDS: FLUTICASONE PROP 0.05% 16 GM NASAL SPRAY NS SCH (10:41)
[2017-12-20] MEDS: FERROUS SO4 325 MG TABLET (FP) PO SCH (10:41)
[2017-12-20] MEDS: NITROGLYCERIN 0.2 MG/HOUR TD PATCH TD SCH (10:42)
[2017-12-20] MEDS: POLYETHYLENE GLYCOL 3350 119 GM BTL PO SCH (10:42)
[2017-12-20] MEDS: BUDESONIDE/FORMETEROL FUMARATE 160/4.5 mcg INHALER IH SCH (10:42)
--- NOTE | 2017-12-20 11:57 | PN ---
Progress Note (short form) - Note Progress Note: PULMONARY States breathing is improving but still gets dizzy and wobbly when standing and ambulating. Last Vital Signs Temp Pulse Resp BP Pulse Ox 98.5 F 77 18 162/92 98 12/20/17 08:00 12/20/17 08:00 12/20/17 08:00 12/20/17 08:00 12/20/17 02:00 Gen: NAD at rest Heart: RRR Lung: decreased breath sounds at the bases Abd: soft, nontender Ext: 1+ distal edema CBC, BMP 12/17/17 07:10 12/20/17 07:15 Active Medications Acetaminophen (Tylenol -) 650 mg PO Q6H PRN PRN Reason: PAIN Last Admin: 12/19/17 12:13 Dose: 650 mg Albuterol Sulfate (Ventolin 0.083% Nebulizer Soln -) 1 amp NEB RTID [facility] Last Admin: 12/20/17 08:54 Dose: 1 amp Aspirin (Asa -) 81 mg PO DAILY [facility] Last Admin: 12/20/17 10:41 Dose: 81 mg Budesonide/Formoterol Fumarate (Symbicort 160/4.5mcg -) 2 puff IH BID [facility] Last Admin: 12/20/17 10:42 Dose: 2 puff Carvedilol (Coreg Cr -) 10 mg PO DAILY [facility] Last Admin: 12/20/17 10:41 Dose: 10 mg Clonazepam (Klonopin -) 0.5 mg PO BID [facility] Last Admin: 12/20/17 10:41 Dose: 0.5 mg Ezetimibe (Zetia -) 10 mg PO Q48H [facility] Last Admin: 12/19/17 09:46 Dose: 10 mg Ferrous Sulfate (Feosol -) 325 mg PO BID [facility] Last Admin: 12/20/17 10:41 Dose: 325 mg Fluticasone Propionate (Flonase -) 1 spray NS BID [facility] Last Admin: 12/20/17 10:41 Dose: 1 spray Heparin Sodium (Porcine) (Heparin -) 5,000 unit SQ TID [facility] Last Admin: 12/20/17 06:06 Dose: 5,000 unit Hydralazine HCl (Apresoline -) 50 mg PO TID [facility] Last Admin: 12/20/17 06:05 Dose: 50 mg Insulin Aspart (Novolog Vial Sliding Scale -) 1 vial SQ HS [facility] PRN Reason: Protocol Last Admin: 12/19/17 21:27 Dose: 8 units Insulin Aspart (Novolog Vial Sliding Scale -) 1 vial SQ TIDAC [facility] PRN Reason: Protocol Last Admin: 12/20/17 11:21 Dose: 2 units Insulin Detemir (Levemir Vial) 30 units SQ HS [facility] Last Admin: 12/19/17 21:26 Dose: 30 units Nitroglycerin (Nitro-Dur Patch -) 0.2 mg TD DAILY [facility] Last Admin: 12/20/17 10:42 Dose: 0.2 mg Polyethylene Glycol (Miralax (For Daily Use) -) 17 gm PO DAILY [facility] Last Admin: 12/20/17 10:42 Dose: 17 gm Prasugrel (Effient -) 10 mg PO DAILY [facility] Last Admin: 12/20/17 10:41 Dose: 10 mg Prednisone (Deltasone -) 60 mg PO DAILY [facility] Last Admin: 12/20/17 10:41 Dose: 60 mg Rosuvastatin Calcium (Crestor -) 10 mg PO HS [facility] Last Admin: 12/19/17 21:25 Dose: 10 mg Sodium Chloride ([place] Nasal [place] -) 2 spray NS TID PRN PRN Reason: NASAL CONGESTION Last Admin: 12/19/17 09:47 Dose: 2 spray Torsemide (Demadex -) 20 mg PO DAILY [facility] Last Admin: 12/20/17 10:41 Dose: 20 mg A/P Acute on Chronic Diastolic Heart Failure Pulmonary HTN COPD Acute Bronchitis CAD KATINA HTN - short course of prednisone - inhaled bronchodilators - torsemide - monitor urine output, creatinine - O2 to keep SpO2 >90% - CPAP at night - will order PT eval - DVT prophylaxis
[2017-12-20 14:19] VITALS: PULSE 88
[2017-12-20 14:41] VITALS: BP 142/76; TEMP 97.7
--- NOTE | 2017-12-20 15:09 | DS ---
Physical Exam: SUBJECTIVE: Patient seen and examined OBJECTIVE: Vital Signs Period Temp Pulse Resp BP Sys/Shankar Pulse Ox Last 24 Hr 97.3 F-98.5 F 65-88 16-22 142-170/68-92 97-98 PHYSICAL EXAM GENERAL: The patient is awake, alert, and fully oriented, in no acute distress. HEAD: Normal with no signs of trauma. EYES: PERRL, extraocular movements intact, sclera anicteric, conjunctiva clear. ENT: Ears normal, nares patent, oropharynx clear without exudates, moist mucous membranes. NECK: Trachea midline, full range of motion, supple. LUNGS: Breath sounds equal, clear to auscultation bilaterally, no wheezes, no crackles, no accessory muscle use. HEART: Regular rate and rhythm, S1, S2 without murmur, rub or gallop. ABDOMEN: Soft, nontender, nondistended, normoactive bowel sounds, no guarding, no rebound, no hepatosplenomegaly, no masses. EXTREMITIES: 2+ pulses, warm, well-perfused, no edema. NEUROLOGICAL: Cranial nerves II through XII grossly intact. Normal speech, gait not observed. PSYCH: Normal mood, normal affect. SKIN: Warm, dry, normal turgor, no rashes or lesions noted. LABS Laboratory Results - last 24 hr 12/18/17 12/19/17 12/19/17 16:47 17:20 21:23 Sodium Potassium Chloride Carbon Dioxide Anion Gap BUN Creatinine POC Glucometer 488 338 402 Random Glucose Calcium 12/19/17 12/20/17 12/20/17 21:50 06:01 07:15 Sodium 138 Potassium 4.7 Chloride 104 Carbon Dioxide 28 Anion Gap 6 L BUN 65 H Creatinine 2.8 H POC Glucometer 139 Random Glucose 345 H* 116 H Calcium 8.4 L 12/20/17 11:20 Sodium Potassium Chloride Carbon Dioxide Anion Gap BUN Creatinine POC Glucometer 167 Random Glucose Calcium HOSPITAL COURSE: Date of Admission:12/19/17 Date of Discharge: 12/20/17 Discharge Summary Reason For Visit: EXACERBATION OF ASTHMA Current Active Problems Acute exacerbation of asthma with allergic rhinitis (Acute) Acute on chronic heart failure (Acute) Asthma exacerbation (Acute) CAD (coronary artery disease) (Acute) CKD (chronic kidney disease) (Acute) KATINA (obstructive sleep apnea) (Acute) Condition: Fair - Instructions Referrals: William Bruner MD [Primary Care Provider] - - Home Medications Comprehensive Discharge Medication List: Ambulatory Orders Aspirin [ASA -] 81 mg PO DAILY #1 tab 03/06/13 Rosuvastatin Calcium [Crestor] 10 mg PO HS 01/16/14 Ferrous Sulfate [Feosol] 325 mg PO BID #0 ud 05/08/15 Prasugrel Hydrochloride [Effient -] 10 mg PO DAILY #0 tab 05/08/15 Albuterol 0.083% Nebulizer [place] [Ventolin 0.083% Nebulizer Soln -] 1 neb NEB QID 09/14/16 Insulin Glargine,Hum.rec.anlog [Lantus (10mL VIAL) -] 0 units SQ HS 04/29/17 Insulin Lispro [Humalog] 100 unit SQ PRN 04/29/17 Budesonide/Formeterol Fumarate [SYMBICORT 160/4.5mcg -] 2 inh PO BID 06/13/17 Clonazepam [KlonoPIN] 0.5 mg PO QID PRN 06/13/17 Carvedilol Phosphate [Coreg Cr -] 10 mg PO DAILY #30 cap 06/23/17 Hydralazine HCl 50 mg PO TID #90 tablet 06/23/17
== END 2017-12-20 17:50 | disposition home or self-care (01) | DRG 140 ==
LOC: JER 12:31 → JERBED 16:51 → J6S 12-17 14:27 → OBSVTOIN 12-19 08:35
PROVIDERS: ADMIT Internal Medicine; ATTEND Nurse Practitioner Family
DX: J44.1 Chronic obstructive pulmonary disease with (acute) exacerbation (principal); I25.10 Atherosclerotic heart disease of native coronary artery without angina pectoris; G47.33 Obstructive sleep apnea (adult) (pediatric); I27.20 Pulmonary hypertension, unspecified; I25.2 Old myocardial infarction; D64.9 Anemia, unspecified; E78.00 Pure hypercholesterolemia, unspecified; F41.8 Other specified anxiety disorders; I48.91 Unspecified atrial fibrillation; J20.9 Acute bronchitis, unspecified; J44.0 Chronic obstructive pulmonary disease with (acute) lower respiratory infection; I47.1 Supraventricular tachycardia; N17.9 Acute kidney failure, unspecified; I34.0 Nonrheumatic mitral (valve) insufficiency; I13.0 Hypertensive heart and chronic kidney disease with heart failure and stage 1 through stage 4 chronic kidney disease, or unspecified chronic kidney disease; E11.22 Type 2 diabetes mellitus with diabetic chronic kidney disease; N18.9 Chronic kidney disease, unspecified; Z95.1 Presence of aortocoronary bypass graft; Z79.4 Long term (current) use of insulin
CPT/HCPCS: 36415; 71046-TC; 80048; 80053; 82550; 82947; 82962; 83735; 83880; 84100; 84484; 85025; 85027; 93005; 93010; 93306-TC; 94150; 94640; 94660; 94761; 97116-GP; 97161-GP; 99285-25; G0378; J1644

== ENCOUNTER 2018-04-13 11:38 | Inpatient (IN) | payer OTHER ==
--- NOTE | 2018-04-13 12:09 | PDOC ---
History of Present Illness - General Chief Complaint: Shortness of Breath Stated Complaint: SOB (PCP SENT) Time Seen by Provider: 04/13/18 11:55 History Source: Patient - History of Present Illness Timing/Duration: reports: other Associated Symptoms: reports: cough, shortness of breath. denies: chest pain/ soreness, fever/chills, wheezing Past History - Past Medical History Allergies/Adverse Reactions: Allergies Allergy/AdvReac Type Severity Reaction Status Date / Time Penicillins Allergy Intermediate Hives Verified 04/13/18 11:42 Iodinated Contrast- Oral and Allergy Verified 04/13/18 11:42 IV Dye [Iodinated Contrast Media - IV Dye] tiotropium AdvReac Verified 04/13/18 11:42 [From [facility] with HandiHaler] Home Medications: Ambulatory Orders Aspirin [ASA -] 81 mg PO DAILY #1 tab 03/06/13 Rosuvastatin Calcium [Crestor] 10 mg PO HS 01/16/14 Ferrous Sulfate [Feosol] 325 mg PO BID #0 ud 05/08/15 Prasugrel Hydrochloride [Effient -] 10 mg PO DAILY #0 tab 05/08/15 Albuterol 0.083% Nebulizer Bibiana [Ventolin 0.083% Nebulizer Soln -] 1 neb NEB QID 09/14/16 Insulin Glargine,Hum.rec.anlog [Lantus (10mL VIAL) -] 0 units SQ HS 04/29/17 Insulin Lispro [Humalog] 100 unit SQ PRN 04/29/17 Budesonide/Formeterol Fumarate [SYMBICORT 160/4.5mcg -] 2 inh PO BID 06/13/17 clonazePAM [KlonoPIN] 0.5 mg PO QID PRN 06/13/17 Carvedilol Phosphate [Coreg Cr -] 10 mg PO DAILY #30 cap 06/23/17 Hydralazine HCl 50 mg PO TID #90 tablet 06/23/17 Acetaminophen [Tylenol .Regular Strength -] 650 mg PO Q6H PRN tablet 12/20/17 Albuterol 0.083% Nebulizer Bibiana [Ventolin 0.083% Nebulizer Soln -] 1 amp NEB Q4H #1 amp 12/20/17 Ezetimibe [Zetia -] 10 mg PO Q48H 30 Days #30 tablet 12/20/17 Hydralazine HCl 50 mg PO TID #90 tablet 12/20/17 Nitroglycerin Patch [Nitro-Dur Patch -] 0.2 mg TD DAILY #30 patch.td24 12/20/17 Torsemide [Demadex -] 20 mg PO DAILY #60 tablet 12/20/17 predniSONE [Deltasone -] See Taper PO DAILY #60 tablet 12/20/17 Anemia: Yes Asthma: Yes Cancer: No Cardiac Disorders: Yes ([place] 2013, 1 stent, CHF) CVA: No COPD: No CHF: Yes Dementia: No Diabetes: Yes GI Disorders: No Disorders: Yes (elevated creatinine) HTN: Yes Hypercholesterolemia: Yes Liver Disease: No Seizures: No Thyroid Disease: No - Surgical History Abdominal Surgery: No Appendectomy: No Cardiac Surgery: Yes (2 stents 04/29/2015) Cholecystectomy: No Lung Surgery: No Neurologic Surgery: No Orthopedic Surgery: Yes (arthroscopy sep 08 @ [facility]) - Immunization History Immunization Up to Date: Yes - Suicide/Smoking/Psychosocial Hx Smoking Status: No Smoking History: Never smoked Have you smoked in the past 12 months: No Number of Cigarettes Smoked Daily: 0 Hx Alcohol Use: No Drug/Substance Use Hx: No Substance Use Type: None Hx Substance Use Treatment: No Review of Systems - Review of Systems Constitutional: No: Chills, Fever Respiratory: Yes: Cough, Shortness of Breath. No: Wheezing Cardiac (ROS): No: Chest Pain, Lightheadedness, Palpitations, Syncope ABD/GI: No: Nausea, Vomiting *Physical Exam - Vital Signs Last Vital Signs Temp Pulse Resp BP Pulse Ox 98.6 F 107 H 30 H 192/81 99 04/13/18 11:42 04/13/18 11:42 04/13/18 11:42 04/13/18 11:42 04/13/18 11:42 - Physical Exam Comments: 04/13/18 12:27 Patient visibly short of breath and tachypneic General Appearance: Yes: Appropriately Dressed, Mild Distress HEENT: positive: Normal Voice Neck: positive: Supple Respiratory/Chest: positive: Lungs Clear, Normal Breath Sounds. negative: Rales , Rhonchi, Wheezing Cardiovascular: positive: S1, S2, Tachycardia Gastrointestinal/Abdominal: positive: Soft. negative: Tender Extremity: positive: Pedal Edema (2+ b/l) Integumentary: positive: Dry, Warm Neurologic: positive: Fully Oriented, Alert, Normal Mood/Affect ED Treatment Course - LABORATORY CBC & Chemistry Diagram: 04/13/18 12:29 04/13/18 12:15 - RADIOLOGY Radiology Studies Ordered: Category Date Time Status CHEST X-RAY PORTABLE* [RAD] Stat Radiology 04/13/18 11:58 Ordered Medical Decision Making - Medical Decision Making 04/13/18 12:05 63-year-old female, history of chronic diastolic heart failure, currently on 20 mg torsemide, asthma, recently completed pred burst, no intubations, insulin- dependent diabetic, CKD (cr ~3 at baseline), CAD status post CABG, KATINA, and pulmonary hypertension who is here with shortness of breath. Patient states for the past 2 weeks she was experiencing shortness of breath, worse when supine. Also, has noticed worsening of her bilateral lower extremity edema 1 month. No wheezing or tightness, but states current shortness of breath, feels like her asthma, but using pumps and nebulizer without any relief. Patient states she was bumped down to 20 mg torsemide this week 2/2 "my kidneys" per pt. Was on 100 mg previously. States she was seen by her boathouse keeper last week who told her shortness of breath was unlikely her heart failure. James Morris also performed bilateral lower extremity dopplers which were negative for DVT. Patient also reports vague cough, no fever, chills, nausea, vomiting, diaphoresis or dizziness. Pt was seen in clinic prior to arrival and found to have elevated BP and sent to ED by Dr Oliveira. Of note, Kaur. requesting Dr. Mg Nance of renal to be consulted prior to any lasix given See exam CHF flare vs ACS vs asthma, less likely PE (given duration of sxs) vs PNA ( given cough) and no suspicion for aortic pathology Tachy to 107 and tachypneic to 28 w/ clear lung/[facility] -[facility] -EKG -CXR -labs -admission anticipated 04/13/18 13:43 Chest x-ray read as large heart, no acute pathology. BNP over 17,000 today, significantly more elevated than previous numbers (900 to 4000s). Troponin of 0.3 (though patient often has tropenemia based on records here). Most likely demand ischemia 2/2 acute on chronic CHF. Cr of 3.6, usually runs~3. As per request of Dr Oliveira, will discuss management with renal prior to diuresis. Will also place consult for patient's boathouse keeper, Dr. Chen and arrange admission to tele 04/13/18 14:10 Discussed with renal who states given low GFR, should give dose of 80 mg Lasix *DC/Admit/Observation/Transfer Diagnosis at time of Disposition: CHF (congestive heart failure) Qualifiers: Heart failure type: unspecified Heart failure chronicity: acute on chronic Qualified Code(s): I50.9 - Heart failure, unspecified - Discharge Dispostion Condition at time of disposition: Fair Decision to Admit order: Yes - Referrals Referrals: William Bruner MD [Primary Care Provider] - - Patient Instructions - Post Discharge Activity
[2018-04-13] MEDS ORDERED: ALBUTEROL SO4 2.5/IPRATROPIUM 0.5 INH SOL 3 ML VIAL.NEB. NEB ONE ×2 (12:16→12:51)
[2018-04-13] MEDS ORDERED: methylPREDNISolone NA SUCC 125 MG/2 ML VIAL IVPUSH ONE (12:16)
[2018-04-13 12:31] LABS: URINE APPEARANCE SLCLOUDY; URINE BILIRUBIN NEGATIVE (<2.0 mg/dL); URINE COLOR YELLOW; URINE GLUCOSE (UA) NEGATIVE (NEGATIVE); URINE KETONE TRACE (NEGATIVE); URINE LEUK ESTERASE NEGATIVE (NEGATIVE); URINE NITRITE NEGATIVE (NEGATIVE); URINE UROBILINOGEN NEGATIVE mg/dL (0.2-1.0)
[2018-04-13 12:33] LABS: URINE PROTEIN 1+ (NEGATIVE)
[2018-04-13 12:34] LABS: EPI CELLS RARE /HPF (FEW); URINE BACTERIA RARE /hpf (NONE SEEN); URINE HYALINE CAST 4 /lpf; URINE MUCUS RARE
[2018-04-13 12:36] LABS: BASO % 0.4 % (0-2.0); EOS % 1.2 % (0-4.5); HEMATOCRIT 27.3 % (32.4-45.2); HEMOGLOBIN 9.1 GM/dL (10.7-15.3); LYMPH % 21.6 % (8-40); MCH 25.7 pg (25.7-33.7); MCHC 33.4 g/dl (32.0-36.0); MEAN CELL VOLUME 76.8 fl (80-96); MEAN PLT VOLUME 8.3 fl (7.5-11.1); MONO % 10.8 % (3.8-10.2); PLATELET COUNT 271 K/MM3 (134-434); RBC 3.56 M/mm3 (3.60-5.2); RDW 12.9 % (11.6-15.6)
[2018-04-13] MEDS ORDERED: methylPREDNISolone NA SUCC 125 MG/2 ML VIAL ONE (12:51)
[2018-04-13 13:07] LABS: ALBUMIN 3.4 g/dl (3.4-5.0); ANION GAP 15 (8-16); BILIRUBIN,TOTAL 0.4 mg/dL (0.2-1.0); BLOOD UREA NITROGEN 81 mg/dL (7-18); CALCIUM 9.3 mg/dL (8.5-10.1); CHLORIDE 107 mmol/L (98-107); CO2 19 mmol/L (21-32); CREATININE 3.6 mg/dL (0.55-1.02); GLUCOSE,RANDOM 123 mg/dL (74-106); POTASSIUM 4.7 mmol/L (3.5-5.1); SGOT/AST 88 U/L (15-37); SGPT/ALT 60 U/L (12-78); SODIUM 141 mmol/L (136-145); TOT PROT 7.4 g/dl (6.4-8.2)
[2018-04-13 13:10] LABS: ALK PHOS 123 U/L (45-117); N-TERMINAL BNP 17263.92 pg/ml (5-125)
[2018-04-13] MEDS: FUROSEMIDE 40 MG/4 ML INJECTABLE VIAL IVPUSH ONE ×3 (14:16→14:26)
[2018-04-13] MEDS ORDERED: FUROSEMIDE 40 MG/4 ML INJECTABLE VIAL ONE (14:17)
--- NOTE | 2018-04-13 15:04 | EKG ---
Test Reason : Blood Pressure : / mmHG Vent. Rate : 104 BPM Atrial Rate : 312 BPM P-R Int : 000 ms QRS Dur : 092 ms QT Int : 342 ms P-R-T Axes : 062 009 021 degrees QTc Int : 449 ms ATRIAL FLUTTER WITH 3:1 A-V CONDUCTION ABNORMAL ECG WHEN COMPARED WITH ECG OF 16-DEC-2017 13:28, ATRIAL FLUTTER HAS REPLACED SINUS RHYTHM Confirmed by COLE LEWIS, JULISSA ([id number]) on 04/13/2018 3:03:59 PM Referred By: Confirmed By:JULISSA GALVAN MD
--- NOTE | 2018-04-13 19:03 | CON.CARD ---
Cardiology Consult (text) - Consultation Consultation Note: cc: htn HPI: 63 yo with h/o CAD--h/o NSTEMI '13 s/p LAD KAREN PCI 09/2013, and prox LCx KAREN PCI 2014, dchf, HTN, venous insufficiency, htn, hl, lone afib/PSVT, MR, pHTN , KATINA, copd, NAFLD, CKD, renal stones (obstructive, with R hydro, s/p stent) , anemia, IDDM who p/w acute htn with recent worsening of sob/le edema. Sent to ER by Dr. Ambriz after she was noted to be very hypertensive in office and acutely sob. Also with: - + worsening of her bilateral lower extremity edema 1 month. Outpatient gas load dispatcher increased Torsemide from 20-40 mg in late february/early March ( patient states she actually increased dose to 80 mg daily) and creatinine worsened from 2.5 --> 3.3 with no sig improvement in le edema. After that torsemide was held for 2 days and prior 20 mg dosing was resumed. Currently below prior dry weights. Recently weights have been decreasing. Weight stable since going back to 20 mg torsemide dose. - increased sob. Feels like her asthma, but pumps and nebulizer not improving sx's. + pnd. - + inc productive cough (white phlegm) since coming off steroids in early february - currently being worked up for thyroid abnormality, ? goiter. - + palps - + pain at right heel with associated skin discoloration. - + intermittent sweats recently s/p IV steroids, nebs and lasix 80 mg IV x 1 in ER. No cp, dizzy, loc, orthopnea, bleeding. no f/c , nvd, nasal congestion, h/a, visual disturbances. Sees dr johansen for cardiology. Past Medical History/past surg hx: per hpi. Social hx: Never smoked, no etoh or illicits Fam hx: No family hx of cardiac disease. Ros: per hpi; Ambulatory Orders Aspirin [ASA -] 81 mg PO DAILY #1 tab 03/06/13 Rosuvastatin Calcium [Crestor] 10 mg PO HS 01/16/14 Ferrous Sulfate [Feosol] 325 mg PO BID #0 ud 05/08/15 Prasugrel Hydrochloride [Effient -] 10 mg PO DAILY #0 tab 05/08/15 Albuterol 0.083% Nebulizer Bibiana [Ventolin 0.083% Nebulizer Soln -] 1 neb NEB QID 09/14/16 Insulin Glargine,Hum.rec.anlog [Lantus (10mL VIAL) -] 0 units SQ HS 04/29/17 Insulin Lispro [Humalog] 100 unit SQ PRN 04/29/17 Budesonide/Formeterol Fumarate [SYMBICORT 160/4.5mcg -] 2 inh PO BID 06/13/17 clonazePAM [KlonoPIN] 0.5 mg PO QID PRN 06/13/17 Carvedilol Phosphate [Coreg Cr -] 10 mg PO DAILY #30 cap 06/23/17 Hydralazine HCl 50 mg PO TID #90 tablet 06/23/17 Acetaminophen [Tylenol .Regular Strength -] 650 mg PO Q6H PRN tablet 12/20/17 Albuterol 0.083% Nebulizer Bibiana [Ventolin 0.083% Nebulizer Soln -] 1 amp NEB Q4H #1 amp 12/20/17 Ezetimibe [Zetia -] 10 mg PO Q48H 30 Days #30 tablet 12/20/17 Hydralazine HCl 50 mg PO TID #90 tablet 12/20/17 Nitroglycerin Patch [Nitro-Dur Patch -] 0.2 mg TD DAILY #30 patch.td24 12/20/17 Torsemide [Demadex -] 20 mg PO DAILY #60 tablet 12/20/17 predniSONE [Deltasone -] See Taper PO DAILY #60 tablet 12/20/17 per office notes also on aldactone 12.5 mg/day. hydral dose is 37.5 tid, pe: Vital Signs - 24 hr 04/13/18 04/13/18 04/13/18 11:42 13:22 15:18 Temperature 98.6 F 98.6 F Pulse Rate 107 H Pulse Rate [ 97 H 106 H Left Apical] Respiratory 30 H 16 16 Rate Blood Pressure 192/81 Blood Pressure 157/64 167/67 [Left Arm] O2 Sat by Pulse 99 98 98 Oximetry (%) 04/13/18 17:34 Temperature 98.4 F Pulse Rate Pulse Rate [ 102 H Left Apical] Respiratory 16 Rate Blood Pressure Blood Pressure 167/73 [Left Arm] O2 Sat by Pulse 96 Oximetry (%) Intake & Output 04/11/18 04/12/18 04/13/18 04/14/18 07:59 07:59 07:59 07:59 Weight 225 lb NAD, calm JVD flat, neck supple decreased air mov't. no crackles/wheezes, nl effort RRR nl s1 s2, no mrg. ND PMI + bs soft nt nd, obese. no hsm ext with 1+ edema. no c/c diminshed dp/pt, no carotid bruits no jaundice, + diaphoresis aaox3 CBC, BMP 04/13/18 12:29 04/13/18 12:15 Laboratory Tests 12/16/17 12/17/17 04/13/18 13:13 07:09 12:15 Total Bilirubin 0.4 D AST 88 H ALT 60 Alkaline Phosphatase 123 H Creatine Kinase Troponin I 0.35 H 0.38 H B-Natriuretic Peptide 2670.52 H 68359.92 H Albumin 3.4 04/13/18 17:00 Total Bilirubin AST ALT Alkaline Phosphatase Creatine Kinase 98 Troponin I 0.43 H B-Natriuretic Peptide Albumin ekg #1. automatic read --> aflutter 3:1 conduction, but appears to be sinus tach. subtle lateral st sagging, similar to priors. repeat ekg with rhythm strip definitively sinus tach. unchanged. tele sr/sinus tach. cxr: reviewed images and report. prominent central markings. no acute pathology. 03/2018 office LE dopplers: neg for dvt. Echo 11/2017: tds. low/nl lv sys fn. rv not well seen, fn grossly nl. 1+ ar/ mr. rvsp 30-40. Echo 01/15: nl LV/EF; dd2, hi E/e' = hi LAP. nl RV. mild LAE. mild-mod MR, mod TR. mild pHTN (46 mmHg). Echo 09/14/16: Low nl LVEF. RV not well seen. 1+ MR. Stress Echo 01/15: 3:53min; no STs. Rest images showed: Inferior, inferolateral and [id number] lateral phillip not well seen; normal wall motion in remaining territories. Normal LVEF (approximately 55-60%). Post-exercise images showed: Inferior, inferolateral and [id number] lateral phillip not well seen; normal augmentation of contraction in remaining territories , with appropriate increase in LVEF (approximately 60-65%). No significant MR seen. Mild TR. Peak TR gradient is at least 47 mmHg (nonspecific finding). PFTs '09: moderate restr defect ASSESSMENT/PLAN 63 yo with h/o CAD--h/o NSTEMI '13 s/p LAD KAREN PCI 09/2013, and prox LCx KAREN PCI 2014, dchf, HTN, venous insufficiency, htn, hl, lone afib/PSVT, MR, pHTN, KATINA, copd, NAFLD, CKD, renal stones (obstructive, with R hydro, s/p stent) , anemia, IDDM and recent thyroid abnormalities who p/w acute htn with recent worsening of sob/le edema. sob/le edema/chronic diastolic CHF/venous insufficiency - s/p 80 mg IV lasix x 1 in ER. - discussed with outpatient gas load dispatcher. LE edema did not improve as outpatient after torsemide dose increased from 20 to 40. However, cr worsened significantly. Patient below dry weight. His assessment was that LE edema was likely from venous insufficiency and not heart failure exacerbation. - bnp likely elevated in setting of obi, not necessarily reflective of volume status. would hold diuretics and assess for improvement in renal function. - May also have contribution from flash pulmonary edema 2/2 to htn or tachycarida. HTN mgm't as below. Con't home ntg patch and BB. - intermittent SHAN wraps to LE to improve edema. Patient also with diminshed dp/ pt and pain/discoloration at right heel. Had plan for vascular eval for venous insufficiency as outpatient, consider inpatient eval at discretion of pmd. - Patient currently undergoing thyroid work up as outpatient, check tsh --> may be driving tachycardia/htn. - daily weights, i/o's, bmp. sob/cough/copd/bronchospasm - per outpatient gas load dispatcher, low suspicion for acute hf exacerbation. ? component of flash pulm edema. mgm't of bp and hr as above. - mgm't of copd component per pmd. HTN: - intolerant of multiple BP meds before--diovan, micardis, verap, norvasc, nifedipine, nisoldipine, catapres patch, see below. - Per office notes, home regimen was coreg CR 10, hydral 37.5 TID, nitro patch 0.2mg (BUCKNER with higher doses) and aldactone 12.5 mg/day (recently added with improvement in bp's as outpatient) - will hold aldactone in setting of obi. Currently sbp suboptimal, but patient has not yet received meds, will order and monitor for improvement. -RAAS blockers deferred as outpatient given labile creatinines and CKD. Per prior notes, Dr. Johansen would prefer to avoid minoxidil given very labile volume retention behavior. CAD with elevated troponin: -s/p prox LCx KAREN PCI 2014 for crescendo angina, also with prior mLAD stent ( patent 2014), residual 70-80% distal RCA disease - chronic elevation in troponin around 0.3. Thought to be 2/2 hi LV filling pressures in setting of ckd and residual cad. Now again with elevated troponin. Overall similar to priors and with flat trend. EKG ... con't clair. currently no signs of acs. - Continue home DAPT with ASA and Effient. cont home crestor, zetia, coreg, NTG patch. HPL: - Myalgias w Atorva/Simva and high dose crestor. tolerating crestor 10 mg, and zetia as outpatient, con't KAITNA / Mod PHTN - compliant with CPAP at home --> con't here. ARF / CKD: - recent baseline creat 2.7-2.9. - here with OBI, hold diuresis and monitor for improvement, as mentioned above. Remote PAF and PSVT - lone AF episode in setting of dobutamine, no recurrence. No AC thought to be indicated - here with tachycardia, appears to be sinus, --> tele monitoring. intolerant to many bp meds in past: diovan ineffective micardis (palps) verap (nausea, edema) norvasc 5 bid (edema) nifedipine (sob) nisoldipine (buckner's, palps, incr edema) catapres patch (skin irritation) ? certain bb's before coreg CR
--- NOTE | 2018-04-13 19:33 | HP ---
Admitting History and Physical - Primary Care Physician PCP: Katrin Kelley - Admission Chief Complaint: sob History of Present Illness: 63-year-old female, history of chronic diastolic heart failure, currently on 20 mg torsemide, asthma, recently completed pred burst, no intubations, insulin- dependent diabetic, CKD (cr ~3 at baseline), CAD status post CABG, KATINA, and pulmonary hypertension who is here with shortness of breath. Patient states for the past 2 weeks she was experiencing shortness of breath, worse when supine. Also, has noticed worsening of her bilateral lower extremity edema 1 month. No wheezing or tightness, but states current shortness of breath, feels like her asthma, but using pumps and nebulizer without any relief. Patient states she was bumped down to 20 mg torsemide this week 2/2 "my kidneys" per pt. Was on 100 mg previously. States she was seen by her workday manager last week who told her shortness of breath was unlikely her heart failure. James Morris also performed bilateral lower extremity dopplers which were negative for DVT. Patient also reports vague cough, no fever, chills, nausea, vomiting, diaphoresis or dizziness. Pt was seen in clinic prior to arrival and found to have elevated BP and sent to ED by Dr Oliveira. Of note, James requesting Dr. Mg Nance of renal to be consulted prior to any lasix given - Past Medical History Cardiovascular: Yes: AFIB, CAD, CHF, HTN, Hyperlipdemia, [place], Mitral Insufficiency, Pulmonary Hypertension Pulmonary: Yes: Sleep Apnea Renal/: Yes: Renal Failure Heme/Onc: Yes: Anemia Endocrine: Yes: Diabetes Mellitus - Past Surgical History Past Surgical History: Yes: Stent - Smoking History Smoking history: Never smoked Have you smoked in the past 12 months: No Aproximately how many cigarettes per day: 0 - Alcohol/Substance Use Hx Alcohol Use: No Home Medications - Allergies Allergies/Adverse Reactions: Allergies Allergy/AdvReac Type Severity Reaction Status Date / Time Penicillins Allergy Intermediate Hives Verified 04/13/18 11:42 Iodinated Contrast- Oral and Allergy Verified 04/13/18 11:42 IV Dye [Iodinated Contrast Media - IV Dye] tiotropium AdvReac Verified 04/13/18 11:42 [From [facility]iriva with HandiHaler] - Home Medications Home Medications: Ambulatory Orders Aspirin [ASA -] 81 mg PO DAILY #1 tab 03/06/13 Rosuvastatin Calcium [Crestor] 10 mg PO HS 01/16/14 Ferrous Sulfate [Feosol] 325 mg PO BID #0 ud 05/08/15 Prasugrel Hydrochloride [Effient -] 10 mg PO DAILY #0 tab 05/08/15 Albuterol 0.083% Nebulizer Bibiana [Ventolin 0.083% Nebulizer Soln -] 1 neb NEB QID 09/14/16 Insulin Glargine,Hum.rec.anlog [Lantus (10mL VIAL) -] 30 units SQ HS 04/29/17 Insulin Lispro [Humalog] 100 unit SQ PRN 04/29/17 Budesonide/Formeterol Fumarate [SYMBICORT 160/4.5mcg -] 2 inh PO BID 06/13/17 clonazePAM [KlonoPIN] 0.5 mg PO QID PRN 06/13/17 Carvedilol Phosphate [Coreg Cr -] 10 mg PO DAILY #30 cap 06/23/17 Hydralazine HCl 50 mg PO TID #90 tablet 06/23/17 Acetaminophen [Tylenol .Regular Strength -] 650 mg PO Q6H PRN tablet 12/20/17 Albuterol 0.083% Nebulizer Bibiana [Ventolin 0.083% Nebulizer Soln -] 1 amp NEB Q4H #1 amp 12/20/17 Ezetimibe [Zetia -] 10 mg PO Q48H 30 Days #30 tablet 12/20/17 Nitroglycerin Patch [Nitro-Dur Patch -] 0.2 mg TD DAILY #30 patch.td24 12/20/17 Torsemide [Demadex -] 20 mg PO DAILY #60 tablet 12/20/17 predniSONE [Deltasone -] See Taper PO DAILY #60 tablet 12/20/17 Physical Examination Vital Signs: Vital Signs Temperature 98.4 F 04/13/18 17:34 Pulse Rate 102 H 04/13/18 17:34 Respiratory Rate 16 04/13/18 17:34 Blood Pressure 167/73 04/13/18 17:34 O2 Sat by Pulse Oximetry (%) 96 04/13/18 17:34 Constitutional: Yes: No Distress HENT: Yes: Atraumatic Neck: Yes: Supple Cardiovascular: Yes: Regular Rate and Rhythm Respiratory: Yes: CTA Bilaterally Gastrointestinal: Yes: Normal Bowel Sounds Extremities: Yes: WNL Edema: Yes Edema: LLE: 3+, RLE: 3+ Peripheral Pulses WNL: Yes Neurological: Yes: Alert, Oriented Labs: CBC, BMP 04/13/18 12:29 04/13/18 12:15 Problem List - Problems (1) CHF (congestive heart failure) Assessment/Plan: lasix per cardio continue home meds Code(s): I50.9 - HEART FAILURE, UNSPECIFIED Qualifiers: Heart failure type: unspecified Heart failure chronicity: acute on chronic Qualified Code(s): I50.9 - Heart failure, unspecified (2) CAD (coronary artery disease) Code(s): I25.10 - ATHSCL HEART DISEASE OF [place] CORONARY ARTERY W/O ANG PCTRS (3) CKD (chronic kidney disease) Assessment/Plan: renal consult Code(s): N18.9 - CHRONIC KIDNEY DISEASE, UNSPECIFIED (4) HLD (hyperlipidemia) Assessment/Plan: on meds Code(s): E78.5 - HYPERLIPIDEMIA, UNSPECIFIED (5) HTN (hypertension) Assessment/Plan: on meds stable Code(s): I10 - ESSENTIAL (PRIMARY) HYPERTENSION Assessment/Plan Laboratory Tests 04/13/18 04/13/18 04/13/18 12:01 12:15 12:21 WBC RBC Hgb Hct MCV MCH MCHC RDW Plt Count MPV Neutrophils % Lymphocytes % Monocytes % Eosinophils % Basophils % Sodium 141 Potassium 4.7 Chloride 107 Carbon Dioxide 19 L Anion Gap 15 BUN 81 H Creatinine 3.6 H Creat Clearance w eGFR 12.77 POC Glucometer [id number] Random Glucose 123 H Calcium 9.3 Total Bilirubin 0.4 D AST 88 H ALT 60 Alkaline Phosphatase 123 H Creatine Kinase 111 Troponin I 0.38 H B-Natriuretic Peptide 51214.92 H Total Protein 7.4 Albumin 3.4 Urine Color Yellow Urine Appearance Slcloudy Urine pH 5.0 Ur Specific [place] 1.013 Urine Protein 1+ H Urine Glucose (UA) Negative Urine Ketones Trace H Urine Blood Negative Urine Nitrite Negative Urine Bilirubin Negative Urine Urobilinogen Negative Ur Leukocyte Esterase Negative Urine WBC (Auto) 2 Urine RBC (Auto) 1 Ur Epithelial Cells Rare Urine Bacteria Rare Hyaline Casts 4 Urine Mucus Rare 04/13/18 04/13/18 12:29 17:00 WBC 9.0 RBC 3.56 L Hgb 9.1 L D Hct 27.3 L MCV 76.8 L MCH 25.7 MCHC 33.4 RDW 12.9 Plt Count 271 MPV 8.3 Neutrophils % 66.0 Lymphocytes % 21.6 Monocytes % 10.8 H Eosinophils % 1.2 Basophils % 0.4 Sodium Potassium Chloride Carbon Dioxide Anion Gap BUN Creatinine Creat Clearance w eGFR POC Glucometer Random Glucose Calcium Total Bilirubin AST ALT Alkaline Phosphatase Creatine Kinase 98 Troponin I 0.43 H B-Natriuretic Peptide Total Protein Albumin Urine Color Urine Appearance Urine pH Ur Specific [place] Urine Protein Urine Glucose (UA) Urine Ketones Urine Blood Urine Nitrite Urine Bilirubin Urine Urobilinogen Ur Leukocyte Esterase Urine WBC (Auto) Urine RBC (Auto) Ur Epithelial Cells Urine Bacteria Hyaline Casts Urine Mucus Active Medications Generic Name Dose Route Start Last Admin Trade Name Freq PRN Reason Stop Dose Admin Acetaminophen 650 mg 04/14/18 09:10 04/14/18 17:13 Tylenol - PO 650 mg Q4H PRN Administration PAIN Aspirin 81 mg 04/14/18 20:05 Asa - PO DAILY [facility] Budesonide/Formoterol Fumarate 2 puff 04/14/18 22:00 Symbicort 160/4.5mcg - IH BID [facility] Carvedilol 10 mg 04/13/18 20:15 04/14/18 09:26 Coreg Cr - PO 10 mg DAILY [facility] Administration Clonazepam 0.5 mg 04/13/18 19:37 Klonopin - PO Q6H PRN ANXIETY Ezetimibe 10 mg 04/13/18 19:45 04/13/18 20:39 Zetia - PO 10 mg Q2D@1000 [facility] Administration Enoxaparin Sodium 100 mg 04/13/18 19:45 04/14/18 09:25 Lovenox - SQ 100 mg DAILY [facility] Administration Hydralazine HCl 37.5 mg 04/13/18 22:00 04/14/18 15:44 Apresoline - PO 37.5 mg TID [facility]ALO Administration Insulin Aspart 1 vial 04/13/18 22:00 04/14/18 17:10 Novolog Vial Sliding Scale - SQ 4 units ACHS [facility]ALO Administration Protocol Nitroglycerin 0.2 mg 04/13/18 20:15 04/14/18 09:25 Nitro-Dur Patch - TD 0.2 mg DAILY [facility] Administration Prasugrel 10 mg 04/13/18 20:15 04/14/18 09:26 Effient - PO 10 mg DAILY [facility] Administration Rosuvastatin Calcium 10 mg 04/13/18 22:00 04/13/18 23:19 Crestor - PO 10 mg HS [facility] Administration Sodium Bicarbonate 650 mg 04/14/18 10:00 04/14/18 09:26 Sodium Bicarbonate - PO Not Given DAILY [facility]
[2018-04-13] MEDS ORDERED: ENOXAPARIN NA (PORCINE) 100 MG/1 ML DISP.SYRIN SQ ONE (19:59)
[2018-04-13] MEDS: ENOXAPARIN NA (PORCINE) 100 MG/1 ML DISP.SYRIN SQ SCH (20:30)
[2018-04-13] MEDS: EZETIMIBE 10 MG TABLET (FP) PO SCH (20:39)
[2018-04-13] MEDS ORDERED: HEPARIN NA (PORCINE) 5,000 UNITS/ML 1ML VIAL SQ SCH (22:00)
[2018-04-13] MEDS: INSULIN SLIDING SCALE (NOVOLOG) 1 VIAL SQ SCH (23:12)
--- NOTE | 2018-04-13 23:17 | CONSULT ---
Consult - text type - Consultation Consultation Note: Renal Consult for CKD/Volume Overload This is a 63 year old woman with PMhx of CKD Stage 4 (baseline Cr ~3) wit proteinuria, Insulin dependent DM, Hypertension, Diastolic HF, CAD who presents with SOB and LE swelling and found to have acute HF with Cr of 3.6. Pt states that her SOB and edema has been progressive over the past month. Her diuretics had been titrated about 2 weeks about with a 14 lb weight loss but she continued to have LE swelling and SOB. Pt denies any NSAID use and reports compliance with all her meds. No Fever, chills, BUCKNER, chest pain, N/V/D. No recent long trips. PMhx: as above Allergies: NKDA Family Hx: NC Social hx: No T/A/D ROS: as per HPI, all other pertinent ros negative Home Medications Medication Instructions Recorded Aspirin [ASA -] 81 mg PO DAILY #1 tab 03/06/13 Rosuvastatin Calcium [Crestor] 10 mg PO HS 01/16/14 Ferrous Sulfate [Feosol] 325 mg PO BID #0 ud 05/08/15 Prasugrel Hydrochloride [Effient -] 10 mg PO DAILY #0 tab 05/08/15 Albuterol 0.083% Nebulizer Bibiana 1 neb NEB QID 09/14/16 [Ventolin 0.083% Nebulizer Soln -] Insulin Glargine,Hum.rec.anlog 0 units SQ HS 04/29/17 [Lantus (10mL VIAL) -] Insulin Lispro [Humalog] 100 unit SQ PRN 04/29/17 Budesonide/Formeterol Fumarate 2 inh PO BID 06/13/17 [SYMBICORT 160/4.5mcg -] clonazePAM [KlonoPIN] 0.5 mg PO QID PRN 06/13/17 Carvedilol Phosphate [Coreg Cr -] 10 mg PO DAILY #30 cap 06/23/17 Hydralazine HCl 50 mg PO TID #90 tablet 06/23/17 Acetaminophen [Tylenol .Regular 650 mg PO Q6H PRN tablet 12/20/17 Strength -] Albuterol 0.083% Nebulizer Bibiana 1 amp NEB Q4H #1 amp 12/20/17 [Ventolin 0.083% Nebulizer Soln -] Ezetimibe [Zetia -] 10 mg PO Q48H 30 Days #30 tablet 12/20/17 Hydralazine HCl 50 mg PO TID #90 tablet 12/20/17 Nitroglycerin Patch [Nitro-Dur 0.2 mg TD DAILY #30 patch.td24 12/20/17 Patch -] Torsemide [Demadex -] 20 mg PO DAILY #60 tablet 12/20/17 predniSONE [Deltasone -] See Taper PO DAILY #60 tablet 12/20/17 Vital Signs Temperature 98.4 F 04/13/18 21:30 Pulse Rate 18 L 04/13/18 21:30 Respiratory Rate 18 04/13/18 21:30 Blood Pressure 160/80 04/13/18 21:30 O2 Sat by Pulse Oximetry (%) 95 04/13/18 21:30 Intake & Output 04/10/18 04/11/18 04/12/18 04/13/18 23:59 23:59 23:59 23:59 Weight 102.058 kg MIld distress from SOB on NC O2 No JVD, Neck supple RRR, No M/R Dec BS b/l lung garcia, no overt rales obese, NT/ND + LE edema, no cyanosis or clubbing no focal neurologic defects CBC, BMP 04/13/18 12:29 04/13/18 12:15 Current Medications Aspirin (Asa -) 81 mg PO DAILY [facility] Carvedilol (Coreg Cr -) 10 mg PO DAILY [facility] Clonazepam (Klonopin -) 0.5 mg PO Q6H PRN PRN Reason: ANXIETY Ezetimibe (Zetia -) 10 mg PO Q2D@1000 [facility] Last Admin: 04/13/18 20:39 Dose: 10 mg Enoxaparin Sodium (Lovenox -) 100 mg SQ DAILY [facility] Last Admin: 04/13/18 20:30 Dose: 100 mg Hydralazine HCl (Apresoline -) 37.5 mg PO TID [facility] Insulin Aspart (Novolog Vial Sliding Scale -) 1 vial SQ ACHS [facility] PRN Reason: Protocol Nitroglycerin (Nitro-Dur Patch -) 0.2 mg TD DAILY [facility] Prasugrel (Effient -) 10 mg PO DAILY [facility] Rosuvastatin Calcium (Crestor -) 10 mg PO HS [facility] 63 year old woman with PMhx of CKD Stage 4 (baseline Cr ~3) wit proteinuria, Insulin dependent DM, Hypertension, Diastolic HF, CAD who presents with SOB and LE swelling and found to have acute HF with Cr of 3.6. #CKD stage 4 with proteinuira #Volume Overload/Acute HF #IDDM #Hypertension #CAD #Anemia #Metabolic acidosis Baseline Cr is ~3, currently 3.6 likely due to renal hypoprofusion in setting of HF check urine studies s/p Lasix 80mg IV in the ED, access response and continue IV diureiss if clinically improved Low salt diet Cardiology Evaluation noted no SHAN/ARB given low eGFR Continue Coreg, Hydralazine Check iron studies, if iron saturation > 25% may need KRISTA check stool occult blood Start sodium bicarb 650mg Daily Thank you Goyo Cid DO
[2018-04-13] MEDS: CARVEDILOL PHOSPHATE CR 10 MG CAPSULE PO SCH (23:19)
[2018-04-13] MEDS: ROSUVASTATIN CA 10 MG TABLET (FP) PO SCH (23:19)
[2018-04-13] MEDS: hydrALAZINE HCL 25 MG TABLET (FP) PO SCH (23:19)
[2018-04-13] MEDS: PRASUGREL HCL 10 MG TAB PO SCH (23:19)
[2018-04-13] MEDS: NITROGLYCERIN 0.2 MG/HOUR TD PATCH TD SCH (23:20)
[2018-04-14 01:23] VITALS: BMI 37.8
[2018-04-14] MEDS: hydrALAZINE HCL 25 MG TABLET (FP) PO SCH ×3 (06:55→21:03)
[2018-04-14] MEDS: INSULIN SLIDING SCALE (NOVOLOG) 1 VIAL SQ SCH ×4 (06:56→21:05)
[2018-04-14 07:34] LABS: BASO % 0.1 % (0-2.0); HEMATOCRIT 26.5 % (32.4-45.2); HEMOGLOBIN 8.9 GM/dL (10.7-15.3); LYMPH % 10.6 % (8-40); MCH 25.6 pg (25.7-33.7); MCHC 33.6 g/dl (32.0-36.0); MEAN CELL VOLUME 76.3 fl (80-96); MEAN PLT VOLUME 8.2 fl (7.5-11.1); MONO % 1.9 % (3.8-10.2); NEUT % 87.4 % (42.8-82.8); PLATELET COUNT 293 K/MM3 (134-434); RBC 3.48 M/mm3 (3.60-5.2); RDW 12.7 % (11.6-15.6); WHITE BLOOD COUNT 7.9 K/mm3 (4.0-10.0)
[2018-04-14 08:20] LABS: CHLORIDE 103 mmol/L (98-107); POTASSIUM 4.7 mmol/L (3.5-5.1); SGOT/AST 63 U/L (15-37); SGPT/ALT 75 U/L (12-78); SODIUM 136 mmol/L (136-145)
[2018-04-14 08:23] LABS: ALBUMIN 3.2 g/dl (3.4-5.0); ALK PHOS 129 U/L (45-117); ANION GAP 15 (8-16); BILIRUBIN,TOTAL 0.5 mg/dL (0.2-1.0); BLOOD UREA NITROGEN 96 mg/dL (7-18); CALCIUM 8.8 mg/dL (8.5-10.1); CO2 18 mmol/L (21-32); CREATININE 3.9 mg/dL (0.55-1.02); GLUCOSE,RANDOM 262 mg/dL (74-106); MAGNESIUM 2.3 mg/dL (1.8-2.4); TOT PROT 7.3 g/dl (6.4-8.2)
[2018-04-14] MEDS ORDERED: PT OWN MED DRAWER 7, Y5N ONE (09:24)
[2018-04-14] MEDS: ENOXAPARIN NA (PORCINE) 100 MG/1 ML DISP.SYRIN SQ SCH (09:25)
[2018-04-14] MEDS: NITROGLYCERIN 0.2 MG/HOUR TD PATCH TD SCH (09:25)
[2018-04-14] MEDS: SODIUM BICARBONATE 650 MG TABLET PO SCH (09:26)
[2018-04-14] MEDS: CARVEDILOL PHOSPHATE CR 10 MG CAPSULE PO SCH (09:26)
[2018-04-14] MEDS: PRASUGREL HCL 10 MG TAB PO SCH (09:26)
[2018-04-14] MEDS: ACETAMINOPHEN 325 MG TABLET (FP) PO PRN ×3 (09:27→21:04)
[2018-04-14] MEDS ORDERED: CARVEDILOL PHOSPHATE CR 10 MG CAPSULE PO SCH (10:00)
[2018-04-14] MEDS ORDERED: ASPIRIN 81 MG CHEWABLE TABLETS PO SCH (10:00)
--- NOTE | 2018-04-14 10:49 | PN ---
Progress Note (short form) - Note Progress Note: s: no cp sob palps dizzy o: Vital Signs Period Temp Pulse Resp BP Sys/Shankar Pulse Ox Last 24 Hr 97.9 F-98.6 F 18-113 16-30 134-192/60-98 95-99 NAD, calm JVD flat, neck supple decreased air mov't. no crackles/wheezes, nl effort RRR nl s1 s2, no mrg. ND PMI + bs soft nt nd, obese. no hsm ext with 1+ edema. no c/c no jaundice, + diaphoresis aaox3 Current Medications Generic Name Dose Route Start Last Admin Trade Name Freq PRN Reason Stop Dose Admin Acetaminophen 650 mg 04/14/18 09:10 04/14/18 09:27 Tylenol - PO 650 mg Q4H PRN Administration PAIN Aspirin 81 mg 04/14/18 20:05 Asa - PO DAILY [facility] Carvedilol 10 mg 04/13/18 20:15 04/14/18 09:26 Coreg Cr - PO 10 mg DAILY [facility] Administration Clonazepam 0.5 mg 04/13/18 19:37 Klonopin - PO Q6H PRN ANXIETY Ezetimibe 10 mg 04/13/18 19:45 04/13/18 20:39 Zetia - PO 10 mg Q2D@1000 [facility] Administration Enoxaparin Sodium 100 mg 04/13/18 19:45 04/14/18 09:25 Lovenox - SQ 100 mg DAILY [facility] Administration Hydralazine HCl 37.5 mg 04/13/18 22:00 04/14/18 06:55 Apresoline - PO 37.5 mg TID [facility] Administration Insulin Aspart 1 vial 04/13/18 22:00 04/14/18 06:56 Novolog Vial Sliding Scale - SQ 8 units ACHS [facility] Administration Protocol Nitroglycerin 0.2 mg 04/13/18 20:15 04/14/18 09:25 Nitro-Dur Patch - TD 0.2 mg DAILY [facility] Administration Prasugrel 10 mg 04/13/18 20:15 04/14/18 09:26 Effient - PO 10 mg DAILY [facility] Administration Rosuvastatin Calcium 10 mg 04/13/18 22:00 04/13/18 23:19 Crestor - PO 10 mg HS [facility] Administration Sodium Bicarbonate 650 mg 04/14/18 10:00 04/14/18 09:26 Sodium Bicarbonate - PO Not Given DAILY [facility] CBC, BMP 04/14/18 07:12 04/14/18 07:12 ekg #1. automatic read --> aflutter 3:1 conduction, but appears to be sinus tach. subtle lateral st sagging, similar to priors. repeat ekg with rhythm strip definitively sinus tach. unchanged. tele sr/sinus tach. cxr: reviewed images and report. prominent central markings. no acute pathology. 03/2018 office LE dopplers: neg for dvt. Echo 11/2017: tds. low/nl lv sys fn. rv not well seen, fn grossly nl. 1+ ar/ mr. rvsp 30-40. Echo 01/15: nl LV/EF; dd2, hi E/e' = hi LAP. nl RV. mild LAE. mild-mod MR, mod TR. mild pHTN (46 mmHg). Echo 09/14/16: Low nl LVEF. RV not well seen. 1+ MR. Stress Echo 01/15: 3:53min; no STs. Rest images showed: Inferior, inferolateral and [id number] lateral phillip not well seen; normal wall motion in remaining territories. Normal LVEF (approximately 55-60%). Post-exercise images showed: Inferior, inferolateral and [id number] lateral phillip not well seen; normal augmentation of contraction in remaining territories , with appropriate increase in LVEF (approximately 60-65%). No significant MR seen. Mild TR. Peak TR gradient is at least 47 mmHg (nonspecific finding). PFTs '09: moderate restr defect ASSESSMENT/PLAN 63 yo with h/o CAD--h/o NSTEMI '13 s/p LAD KAREN PCI 09/2013, and prox LCx KAREN PCI 2014, dchf, HTN, venous insufficiency, htn, hl, lone afib/PSVT, MR, pHTN, KATINA, copd, NAFLD, CKD, renal stones (obstructive, with R hydro, s/p stent) , anemia, IDDM and recent thyroid abnormalities who p/w acute htn with recent worsening of sob/le edema. sob/le edema/chronic diastolic CHF/venous insufficiency - s/p 80 mg IV lasix x 1 in ER. - discussed with outpatient intelligence consultant. LE edema did not improve as outpatient after torsemide dose increased from 20 to 40. However, cr worsened significantly. Patient below dry weight. His assessment was that LE edema was likely from venous insufficiency and not heart failure exacerbation. - bnp likely elevated in setting of obi, not necessarily reflective of volume status. would hold diuretics and assess for improvement in renal function. - May also have contribution from flash pulmonary edema 2/2 to htn or tachycarida. HTN mgm't as below. Con't home ntg patch and BB. - intermittent SHAN wraps to LE to improve edema. Patient also with diminshed dp/ pt and pain/discoloration at right heel. Had plan for vascular eval for venous insufficiency as outpatient, consider inpatient eval at discretion of pmd. - daily weights, i/o's, bmp. sob/cough/copd/bronchospasm - low suspicion for acute hf exacerbation. - mgm't of copd component per pmd. HTN: - intolerant of multiple BP meds before--diovan, micardis, verap, norvasc, nifedipine, nisoldipine, catapres patch, see below. - Per office notes, home regimen was coreg CR 10, hydral 37.5 TID, nitro patch 0.2mg (BUCKNER with higher doses) and aldactone 12.5 mg/day (recently added with improvement in bp's as outpatient) - will hold aldactone in setting of obi. Currently sbp suboptimal, but patient has not yet received meds, will order and monitor for improvement. -RAAS blockers deferred as outpatient given labile creatinines and CKD. Per prior notes, Dr. Chen would prefer to avoid minoxidil given very labile volume retention behavior. CAD with elevated troponin: -s/p prox LCx KAREN PCI 2014 for crescendo angina, also with prior mLAD stent ( patent 2014), residual 70-80% distal RCA disease - chronic elevation in troponin around 0.3. Thought to be 2/2 hi LV filling pressures in setting of ckd and residual cad. Now again with elevated troponin. Overall similar to priors and with flat trend. EKG ... con't clair. currently no signs of acs. - Continue home DAPT with ASA and Effient. cont home crestor, zetia, coreg, NTG patch. HPL: - Myalgias w Atorva/Simva and high dose crestor. tolerating crestor 10 mg, and zetia as outpatient, con't KATINA / Mod PHTN - compliant with CPAP at home --> con't here. ARF / CKD: - recent baseline creat 2.7-2.9. - here with OBI, hold diuresis and monitor for improvement Remote PAF and PSVT - lone AF episode in setting of dobutamine, no recurrence. No AC thought to be indicated - here with tachycardia, appears to be sinus, --> tele monitoring. hyperthyroid: -per pmd/endo intolerant to many bp meds in past: diovan ineffective micardis (palps) verap (nausea, edema) norvasc 5 bid (edema) nifedipine (sob) nisoldipine (buckner's, palps, incr edema) catapres patch (skin irritation) ? certain bb's before coreg CR
--- NOTE | 2018-04-14 13:01 | PN ---
Progress Note (short form) - Note Progress Note: Renal follow up for OBI on CKD Pt seen and examined in Tele awake and alert reports feeling much better no cough, chest pain still has mild RAMIREZ no abd pain, fever, chills making urine Vital Signs Temperature 97.9 F 04/14/18 09:16 Pulse Rate 96 H 04/14/18 09:16 Respiratory Rate 18 04/14/18 09:16 Blood Pressure 144/64 04/14/18 09:16 O2 Sat by Pulse Oximetry (%) 98 04/14/18 08:59 Intake & Output 04/11/18 04/12/18 04/13/18 04/14/18 23:59 23:59 23:59 23:59 Intake Total 190 Output Total 300 Balance -110 Weight 102.965 kg 102.784 kg NAD on NC O2 No JVD, Neck supple RRR, No M/R Dec BS b/l lung garcia obese, NT/ND + LE edema, no cyanosis or clubbing CBC, BMP 04/14/18 07:12 04/14/18 07:12 Current Medications Acetaminophen (Tylenol -) 650 mg PO Q4H PRN PRN Reason: PAIN Last Admin: 04/14/18 09:27 Dose: 650 mg Aspirin (Asa -) 81 mg PO DAILY [facility] Carvedilol (Coreg Cr -) 10 mg PO DAILY [facility] Last Admin: 04/14/18 09:26 Dose: 10 mg Clonazepam (Klonopin -) 0.5 mg PO Q6H PRN PRN Reason: ANXIETY Ezetimibe (Zetia -) 10 mg PO Q2D@1000 [facility] Last Admin: 04/13/18 20:39 Dose: 10 mg Enoxaparin Sodium (Lovenox -) 100 mg SQ DAILY [facility] Last Admin: 04/14/18 09:25 Dose: 100 mg Hydralazine HCl (Apresoline -) 37.5 mg PO TID [facility] Last Admin: 04/14/18 06:55 Dose: 37.5 mg Insulin Aspart (Novolog Vial Sliding Scale -) 1 vial SQ ACHS [facility] PRN Reason: Protocol Last Admin: 04/14/18 12:26 Dose: 12 units Nitroglycerin (Nitro-Dur Patch -) 0.2 mg TD DAILY [facility] Last Admin: 04/14/18 09:25 Dose: 0.2 mg Prasugrel (Effient -) 10 mg PO DAILY [facility] Last Admin: 04/14/18 09:26 Dose: 10 mg Rosuvastatin Calcium (Crestor -) 10 mg PO HS [facility] Last Admin: 04/13/18 23:19 Dose: 10 mg Sodium Bicarbonate (Sodium Bicarbonate -) 650 mg PO DAILY [facility] Last Admin: 04/14/18 09:26 Dose: Not Given 63 year old woman with PMhx of CKD Stage 4 (baseline Cr ~3) wit proteinuria, Insulin dependent DM, Hypertension, Diastolic HF, CAD who presents with SOB and LE swelling and found to have acute HF with Cr of 3.6. #CKD stage 4 with proteinuira #OBI #Volume Overload/Acute HF #IDDM #Hypertension #CAD #Anemia #Metabolic acidosis Cr omra to 3.9, baseline Cr is ~3 agree with holding IV Lasix at this time given CXR w/o overt effusions or overload proteinuira is subnephrotic and thus not a major contributor to edema would no start IVF at this time given pt has persistent LE edema check Doppler of the LE to r/o DVT continue Hydralazine and Coreg continue sodium bicarb daily iron studies pending Thank you Goyo Cid DO
--- NOTE | 2018-04-14 14:45 | CON.PULM ---
Consult Consult Specialty:: PULM/CCM Referred by:: ARLENE Reason for Consultation:: SOB - History of Present Illness Chief Complaint: SOB History of Present Illness: 63 F, sent by me from the office yesterday due to increased bilateral LE edema and SOB. Symptoms have been worsening since last week. Known Asthma/COPD (not steroid dependent, no intubations), PAH, moderate to severe OSAS (RDI 27.9 events per hour on CPAP @ 11 cm H2O), CKD Stage 4 (baseline Cr ~3), IDDM, Hypertension, Diastolic HF, and CAD. No travel history or apparent sick contact. No fever or chills. No night sweats or hemoptysis. CXR: cardiomegaly / no effusions or infiltrates - History Source History Provided By: Patient Limitations to Obtaining History: No Limitations - Past Medical History Cardio/Vascular: Yes: AFIB, CAD, CHF, HTN, Hyperlipdemia, [place], Mitral Insufficiency, Pulmonary Hypertension Pulmonary: Yes: Sleep Apnea Renal/: Yes: Renal Failure Endocrine: Yes: Diabetes Mellitus - Past Surgical History Past Surgical History: Yes: Stent - Alcohol/Substance Use Hx Alcohol Use: No - Smoking History Smoking history: Never smoked Have you smoked in the past 12 months: No Aproximately how many cigarettes per day: 0 Home Medications - Allergies Allergies/Adverse Reactions: Allergies Allergy/AdvReac Type Severity Reaction Status Date / Time Penicillins Allergy Intermediate Hives Verified 04/13/18 11:42 Iodinated Contrast- Oral and Allergy Verified 04/13/18 11:42 IV Dye [Iodinated Contrast Media - IV Dye] tiotropium AdvReac Verified 04/13/18 11:42 [From Spiriva with HandiHaler] - Home Medications Home Medications: Ambulatory Orders Aspirin [ASA -] 81 mg PO DAILY #1 tab 03/06/13 Rosuvastatin Calcium [Crestor] 10 mg PO HS 01/16/14 Ferrous Sulfate [Feosol] 325 mg PO BID #0 ud 05/08/15 Prasugrel Hydrochloride [Effient -] 10 mg PO DAILY #0 tab 05/08/15 Albuterol 0.083% Nebulizer Bibiana [Ventolin 0.083% Nebulizer Soln -] 1 neb NEB QID 09/14/16 Insulin Glargine,Hum.rec.anlog [Lantus (10mL VIAL) -] 30 units SQ HS 04/29/17 Insulin Lispro [Humalog] 100 unit SQ PRN 04/29/17 Budesonide/Formeterol Fumarate [SYMBICORT 160/4.5mcg -] 2 inh PO BID 06/13/17 clonazePAM [KlonoPIN] 0.5 mg PO QID PRN 06/13/17 Carvedilol Phosphate [Coreg Cr -] 10 mg PO DAILY #30 cap 06/23/17 Hydralazine HCl 50 mg PO TID #90 tablet 06/23/17 Acetaminophen [Tylenol .Regular Strength -] 650 mg PO Q6H PRN tablet 12/20/17 Albuterol 0.083% Nebulizer Bibiana [Ventolin 0.083% Nebulizer Soln -] 1 amp NEB Q4H #1 amp 12/20/17 Ezetimibe [Zetia -] 10 mg PO Q48H 30 Days #30 tablet 12/20/17 Nitroglycerin Patch [Nitro-Dur Patch -] 0.2 mg TD DAILY #30 patch.td24 12/20/17 Torsemide [Demadex -] 20 mg PO DAILY #60 tablet 12/20/17 predniSONE [Deltasone -] See Taper PO DAILY #60 tablet 12/20/17 Review of Systems - Review of Systems Constitutional: reports: Malaise. denies: Chills, Fever, Night Sweats, Unintentional Wgt. Loss Eyes: reports: No Symptoms HENT: reports: No Symptoms, Ocular Prosthesis Cardiovascular: reports: Edema, Palpitations, Shortness of Breath. denies: Chest Pain Respiratory: reports: Cough, Orthopnea, Snoring, SOB, SOB on Exertion, Wheezing. denies: Hemoptysis Gastrointestinal: reports: No Symptoms Genitourinary: reports: No Symptoms Breasts: reports: No Symptoms Reported Musculoskeletal: reports: No Symptoms Integumentary: reports: No Symptoms Neurological: reports: No Symptoms Endocrine: reports: No Symptoms Hematology/Lymphatic: reports: No Symptoms Psychiatric: reports: Altered Sleep Pattern Physical Exam Vital Sings: Vital Signs Temperature 97.9 F 04/14/18 09:16 Pulse Rate 96 H 04/14/18 09:16 Respiratory Rate 18 04/14/18 09:16 Blood Pressure 144/64 04/14/18 09:16 O2 Sat by Pulse Oximetry (%) 98 04/14/18 08:59 Constitutional: Yes: No Distress, Obese Eyes: Yes: Conjunctiva Clear, EOM Intact HENT: Yes: Atraumatic, Normocephalic Neck: Yes: Supple, Trachea Midline Cardiovascular: Yes: Regular Rate and Rhythm Respiratory: Yes: Cough, Diminished, Rhonchi. No: Accessory Muscle Use, On Nasal O2, Rales, Stridor, Tachypnea, Wheezes ...Inspection: Yes: WNL ...Clubbing: No Gastrointestinal: Yes: Normal Bowel Sounds, Soft Renal/: No: CVA Tenderness - Left, CVA Tenderness - Right Musculoskeletal: Yes: WNL Extremities: Yes: WNL Edema: Yes Peripheral Pulses WNL: Yes Integumentary: Yes: WNL Neurological: Yes: WNL, Alert, Oriented ...Motor Strength: WNL Psychiatric: Yes: WNL, Alert, Oriented Labs: CBC, BMP 04/14/18 07:12 04/14/18 07:12 Imaging - Results Chest X-ray: Report Reviewed, Image Reviewed Problem List - Problems (1) CHF (congestive heart failure) Code(s): I50.9 - HEART FAILURE, UNSPECIFIED Qualifiers: Heart failure type: unspecified Heart failure chronicity: acute on chronic Qualified Code(s): I50.9 - Heart failure, unspecified (2) Acute on chronic heart failure Code(s): I50.9 - HEART FAILURE, UNSPECIFIED (3) Acute on chronic kidney failure Code(s): N17.9 - ACUTE KIDNEY FAILURE, UNSPECIFIED; N18.9 - CHRONIC KIDNEY DISEASE, UNSPECIFIED (4) CAD (coronary artery disease) Code(s): I25.10 - ATHSCL HEART DISEASE OF [place] CORONARY ARTERY W/O BANNER PCTRS (5) CKD (chronic kidney disease) Code(s): N18.9 - CHRONIC KIDNEY DISEASE, UNSPECIFIED (6) ASHD (arteriosclerotic heart disease) Code(s): I25.10 - ATHSCL HEART DISEASE OF [place] CORONARY ARTERY W/O BANNER PCTRS (7) Anemia Code(s): D64.9 - ANEMIA, UNSPECIFIED (8) Anxiety Code(s): F41.9 - ANXIETY DISORDER, UNSPECIFIED (9) HLD (hyperlipidemia) Code(s): E78.5 - HYPERLIPIDEMIA, UNSPECIFIED (10) HTN (hypertension) Code(s): I10 - ESSENTIAL (PRIMARY) HYPERTENSION (11) IDDM (insulin dependent diabetes mellitus) Code(s): E11.9 - TYPE 2 DIABETES MELLITUS WITHOUT COMPLICATIONS; Z79.4 - CODE INSPECTOR (CURRENT) USE OF INSULIN (12) Sleep apnea, obstructive Code(s): G47.33 - OBSTRUCTIVE SLEEP APNEA (ADULT) (PEDIATRIC) Assessment/Plan Diuresis as tolerated O2 to maintain saturation CPAP @ 11 cm H2O QHS and PRN Daily weight I&O Noted will have vascular evaluation Symbicort BID Patient developed lip swelling to Spiriva in the past No indication for systemic steroids Monitor off ABX Will follow Thank you. Dr Oliveira
--- NOTE | 2018-04-14 17:52 | PN ---
Progress Note, Physician History of Present Illness: feeling better - Current Medication List Current Medications: Active Medications Acetaminophen (Tylenol -) 650 mg PO Q4H PRN PRN Reason: PAIN Last Admin: 04/14/18 17:13 Dose: 650 mg Aspirin (Asa -) 81 mg PO DAILY [facility] Budesonide/Formoterol Fumarate (Symbicort 160/4.5mcg -) 2 puff IH BID [facility] Carvedilol (Coreg Cr -) 10 mg PO DAILY [facility] Last Admin: 04/14/18 09:26 Dose: 10 mg Clonazepam (Klonopin -) 0.5 mg PO Q6H PRN PRN Reason: ANXIETY Ezetimibe (Zetia -) 10 mg PO Q2D@1000 [facility] Last Admin: 04/13/18 20:39 Dose: 10 mg Enoxaparin Sodium (Lovenox -) 100 mg SQ DAILY [facility] Last Admin: 04/14/18 09:25 Dose: 100 mg Hydralazine HCl (Apresoline -) 37.5 mg PO TID [facility] Last Admin: 04/14/18 15:44 Dose: 37.5 mg Insulin Aspart (Novolog Vial Sliding Scale -) 1 vial SQ ACHS [facility] PRN Reason: Protocol Last Admin: 04/14/18 17:10 Dose: 4 units Nitroglycerin (Nitro-Dur Patch -) 0.2 mg TD DAILY [facility] Last Admin: 04/14/18 09:25 Dose: 0.2 mg Prasugrel (Effient -) 10 mg PO DAILY [facility] Last Admin: 04/14/18 09:26 Dose: 10 mg Rosuvastatin Calcium (Crestor -) 10 mg PO HS [facility] Last Admin: 04/13/18 23:19 Dose: 10 mg Sodium Bicarbonate (Sodium Bicarbonate -) 650 mg PO DAILY [facility] Last Admin: 04/14/18 09:26 Dose: Not Given - Objective Vital Signs: Vital Signs Temperature 97.9 F 04/14/18 14:00 Pulse Rate 117 H 04/14/18 14:00 Respiratory Rate 18 04/14/18 09:16 Blood Pressure 141/74 04/14/18 14:00 O2 Sat by Pulse Oximetry (%) 98 04/14/18 08:59 Constitutional: Yes: No Distress HENT: Yes: Atraumatic Neck: Yes: Supple Cardiovascular: Yes: Regular Rate and Rhythm Respiratory: Yes: CTA Bilaterally Gastrointestinal: Yes: Normal Bowel Sounds Extremities: Yes: WNL Edema: RUE: 3+, LLE: 3+ Neurological: Yes: Alert, Oriented Labs: CBC, BMP 04/14/18 07:12 04/14/18 07:12 Problem List - Problems (1) CHF (congestive heart failure) Assessment/Plan: lasix per cardio continue home meds Code(s): I50.9 - HEART FAILURE, UNSPECIFIED Qualifiers: Heart failure type: unspecified Heart failure chronicity: acute on chronic Qualified Code(s): I50.9 - Heart failure, unspecified (2) CAD (coronary artery disease) Assessment/Plan: cardio consult noted Code(s): I25.10 - ATHSCL HEART DISEASE OF [place] CORONARY ARTERY W/O ANG PCTRS (3) CKD (chronic kidney disease) Assessment/Plan: fu cr..same Code(s): N18.9 - CHRONIC KIDNEY DISEASE, UNSPECIFIED (4) HLD (hyperlipidemia) Assessment/Plan: on meds Code(s): E78.5 - HYPERLIPIDEMIA, UNSPECIFIED (5) HTN (hypertension) Assessment/Plan: on meds stable Code(s): I10 - ESSENTIAL (PRIMARY) HYPERTENSION (6) Elevated troponin Assessment/Plan: pt on lovenox could be demand ischemia doppler b/l steve ordered Code(s): R74.8 - ABNORMAL LEVELS OF OTHER SERUM ENZYMES
[2018-04-14] MEDS: ASPIRIN 81 MG CHEWABLE TABLETS PO SCH (20:40)
[2018-04-14] MEDS: ROSUVASTATIN CA 10 MG TABLET (FP) PO SCH (21:03)
[2018-04-14] MEDS: clonazePAM 0.5 MG TABLET PO PRN (21:04)
[2018-04-14] MEDS: BUDESONIDE/FORMETEROL FUMARATE 160/4.5 mcg INHALER IH SCH (21:06)
[2018-04-15] MEDS: ALBUTEROL SO4 0.083% IH SOL 2.5 MG/3 ML VIAL.NEB. NEB PRN ×4 (00:26→22:25)
[2018-04-15] MEDS: clonazePAM 0.5 MG TABLET PO PRN ×2 (03:47→21:09)
[2018-04-15] MEDS: hydrALAZINE HCL 25 MG TABLET (FP) PO SCH ×3 (05:38→21:09)
[2018-04-15 06:06] LABS: SERUM IRON SATURATION 13 % (15-55); TOTAL IRON BINDING CAPACITY 282 ug/dL (250-450); UIBC 244 ug/dL (118-369)
[2018-04-15] MEDS: INSULIN SLIDING SCALE (NOVOLOG) 1 VIAL SQ SCH ×4 (06:19→21:09)
[2018-04-15 07:19] LABS: CHLORIDE 104 mmol/L (98-107); POTASSIUM 4.6 mmol/L (3.5-5.1); SODIUM 137 mmol/L (136-145)
[2018-04-15 07:34] LABS: ANION GAP 13 (8-16); CALCIUM 8.6 mg/dL (8.5-10.1); CO2 20 mmol/L (21-32); CREATININE 3.6 mg/dL (0.55-1.02); GLUCOSE,RANDOM 184 mg/dL (74-106); MAGNESIUM 2.4 mg/dL (1.8-2.4)
[2018-04-15 07:54] LABS: BLOOD UREA NITROGEN 105 mg/dL (7-18)
[2018-04-15] MEDS ORDERED: PT OWN MED DRAWER 7, Y5N ONE (09:15)
[2018-04-15] MEDS: ASPIRIN 81 MG CHEWABLE TABLETS PO SCH (09:50)
[2018-04-15] MEDS: EZETIMIBE 10 MG TABLET (FP) PO SCH (09:50)
[2018-04-15] MEDS: SODIUM BICARBONATE 650 MG TABLET PO SCH (09:50)
[2018-04-15] MEDS: ENOXAPARIN NA (PORCINE) 100 MG/1 ML DISP.SYRIN SQ SCH (09:51)
[2018-04-15] MEDS: BUDESONIDE/FORMETEROL FUMARATE 160/4.5 mcg INHALER IH SCH ×2 (09:51→21:09)
[2018-04-15] MEDS: NITROGLYCERIN 0.2 MG/HOUR TD PATCH TD SCH (09:52)
[2018-04-15] MEDS: PRASUGREL HCL 10 MG TAB PO SCH (09:52)
--- NOTE | 2018-04-15 11:18 | PN ---
Progress Note (short form) - Note Progress Note: s: no cp sob palps dizzy o: Vital Signs Period Temp Pulse Resp BP Sys/Shankar Pulse Ox Last 24 Hr 97.8 F-98.3 F 96-125 18-20 134-162/73-97 95-100 NAD, calm JVD flat, neck supple decreased air mov't. no crackles/wheezes, nl effort RRR nl s1 s2, no mrg. ND PMI + bs soft nt nd, obese. no hsm ext with 1+ edema. no c/c no jaundice, + diaphoresis aaox3 Current Medications Generic Name Dose Route Start Last Admin Trade Name Freq PRN Reason Stop Dose Admin Acetaminophen 650 mg 04/14/18 09:10 04/14/18 21:04 Tylenol - PO 650 mg Q4H PRN Administration PAIN Albuterol Sulfate 1 amp 04/14/18 23:53 04/15/18 10:04 Ventolin 0.083% Nebulizer Soln - NEB 1 amp Q4H PRN Administration SHORT OF BREATH/WHEEZING Aspirin 81 mg 04/14/18 20:05 04/15/18 09:50 Asa - PO 81 mg DAILY LALO Administration Budesonide/Formoterol Fumarate 2 puff 04/14/18 22:00 04/15/18 09:51 Symbicort 160/4.5mcg - IH 2 puff BID LALO Administration Carvedilol 10 mg 04/13/18 20:15 04/14/18 09:26 Coreg Cr - PO 10 mg DAILY LALO Administration Clonazepam 0.5 mg 04/13/18 19:37 04/15/18 03:47 Klonopin - PO 0.5 mg Q6H PRN Administration ANXIETY Ezetimibe 10 mg 04/13/18 19:45 04/15/18 09:50 Zetia - PO 10 mg Q2D@1000 LALO Administration Enoxaparin Sodium 100 mg 04/13/18 19:45 04/15/18 09:51 Lovenox - SQ 100 mg DAILY LALO Administration Hydralazine HCl 37.5 mg 04/13/18 22:00 04/15/18 05:38 Apresoline - PO 37.5 mg TID LALO Administration Insulin Aspart 1 vial 04/13/18 22:00 04/15/18 11:11 Novolog Vial Sliding Scale - SQ 4 units ACHS LALO Administration Protocol Nitroglycerin 0.2 mg 04/13/18 20:15 04/15/18 09:52 Nitro-Dur Patch - TD 0.2 mg DAILY [facility]ALO Administration Prasugrel 10 mg 04/13/18 20:15 04/15/18 09:52 Effient - PO 10 mg DAILY LALO Administration Rosuvastatin Calcium 10 mg 04/13/18 22:00 04/14/18 21:03 Crestor - PO 10 mg HS LALO Administration Sodium Bicarbonate 650 mg 04/14/18 10:00 04/15/18 09:50 Sodium Bicarbonate - PO 650 mg DAILY LALO Administration CBC, BMP 04/14/18 07:12 04/15/18 06:00 ekg #1. automatic read --> aflutter 3:1 conduction, but appears to be sinus tach. subtle lateral st sagging, similar to priors. repeat ekg with rhythm strip definitively sinus tach. unchanged. tele sr/sinus tach. cxr: reviewed images and report. prominent central markings. no acute pathology. 03/2018 office LE dopplers: neg for dvt. Echo 11/2017: tds. low/nl lv sys fn. rv not well seen, fn grossly nl. 1+ ar/ mr. rvsp 30-40. Echo 01/15: nl LV/EF; dd2, hi E/e' = hi LAP. nl RV. mild LAE. mild-mod MR, mod TR. mild pHTN (46 mmHg). Echo 09/14/16: Low nl LVEF. RV not well seen. 1+ MR. Stress Echo 01/15: 3:53min; no STs. Rest images showed: Inferior, inferolateral and [id number] lateral phillip not well seen; normal wall motion in remaining territories. Normal LVEF (approximately 55-60%). Post-exercise images showed: Inferior, inferolateral and [id number] lateral phillip not well seen; normal augmentation of contraction in remaining territories , with appropriate increase in LVEF (approximately 60-65%). No significant MR seen. Mild TR. Peak TR gradient is at least 47 mmHg (nonspecific finding). PFTs '09: moderate restr defect ASSESSMENT/PLAN 63 yo with h/o CAD--h/o NSTEMI '13 s/p LAD KAREN PCI 09/2013, and prox LCx KAREN PCI 2014, dchf, HTN, venous insufficiency, htn, hl, lone afib/PSVT, MR, pHTN, KATINA, copd, NAFLD, CKD, renal stones (obstructive, with R hydro, s/p stent) , anemia, IDDM and recent thyroid abnormalities who p/w acute htn with recent worsening of sob/le edema. sob/le edema/chronic diastolic CHF/venous insufficiency - s/p 80 mg IV lasix x 1 in ER. - discussed with outpatient traffic control officer. LE edema did not improve as outpatient after torsemide dose increased from 20 to 40. However, cr worsened significantly. Patient below dry weight. His assessment was that LE edema was likely from venous insufficiency and not heart failure exacerbation. - bnp likely elevated in setting of obi, not necessarily reflective of volume status. would hold diuretics and assess for improvement in renal function. - May also have contribution from flash pulmonary edema 2/2 to htn or tachycarida. HTN mgm't as below. Con't home ntg patch and BB. - intermittent SHAN wraps to LE to improve edema. Patient also with diminished dp /pt and pain/discoloration at right heel. Had plan for vascular eval for venous insufficiency as outpatient, consider inpatient eval - daily weights, i/o's, bmp. sob/cough/copd/bronchospasm - low suspicion for acute hf exacerbation. - mgm't of copd component per pmd. HTN: - intolerant of multiple BP meds before--diovan, micardis, verap, norvasc, nifedipine, nisoldipine, catapres patch, see below. - Per office notes, home regimen was coreg CR 10, hydral 37.5 TID, nitro patch 0.2mg (BUCKNER with higher doses) and aldactone 12.5 mg/day (recently added with improvement in bp's as outpatient) - will hold aldactone in setting of obi. Currently sbp suboptimal, but patient has not yet received meds, will order and monitor for improvement. -RAAS blockers deferred as outpatient given labile creatinines and CKD. Per prior notes, Dr. Chen would prefer to avoid minoxidil given very labile volume retention behavior. CAD with elevated troponin: -s/p prox LCx KAREN PCI 2014 for crescendo angina, also with prior mLAD stent ( patent 2014), residual 70-80% distal RCA disease - chronic elevation in troponin around 0.3. Thought to be 2/2 hi LV filling pressures in setting of ckd and residual cad. Now again with elevated troponin. Overall similar to priors and with flat trend. EKG ... con't clair. currently no signs of acs. - Continue home DAPT with ASA and Effient. cont home crestor, zetia, coreg, NTG patch. HPL: - Myalgias w Atorva/Simva and high dose crestor. tolerating crestor 10 mg, and zetia as outpatient, con't KATINA / Mod PHTN - compliant with CPAP at home --> con't here. ARF / CKD: - recent baseline creat 2.7-2.9. - here with OBI, hold diuresis and monitor for improvement Remote PAF and PSVT - lone AF episode in setting of dobutamine, no recurrence. No AC thought to be indicated - here with tachycardia, appears to be sinus, --> tele monitoring. hyperthyroid: -per pmd/endo intolerant to many bp meds in past: diovan ineffective micardis (palps) verap (nausea, edema) norvasc 5 bid (edema) nifedipine (sob) nisoldipine (buckner's, palps, incr edema) catapres patch (skin irritation) ? certain bb's before coreg CR
[2018-04-15] MEDS: CARVEDILOL PHOSPHATE CR 10 MG CAPSULE PO SCH (12:33)
--- NOTE | 2018-04-15 15:38 | PN ---
Progress Note (short form) - Note Progress Note: PULMONARY AWAKE/ALERT BREATHING IMPROVED VSS/AFEBRILE ANICTERIC DISTANT B/L BREATH SOUNDS S1S2 BS+ SOFT OBESE 2+ EDEMA B/L LOWER EXT LABS/MEDS/CONSULTS/EKG/NOTES/IMAGING/ REVIEWED Problem List - Problems (1) CHF (congestive heart failure) Code(s): I50.9 - HEART FAILURE, UNSPECIFIED Qualifiers: Heart failure type: unspecified Heart failure chronicity: acute on chronic Qualified Code(s): I50.9 - Heart failure, unspecified (2) Acute on chronic heart failure Code(s): I50.9 - HEART FAILURE, UNSPECIFIED (3) Acute on chronic kidney failure Code(s): N17.9 - ACUTE KIDNEY FAILURE, UNSPECIFIED; N18.9 - CHRONIC KIDNEY DISEASE, UNSPECIFIED (4) CAD (coronary artery disease) Code(s): I25.10 - ATHSCL HEART DISEASE OF [place] CORONARY ARTERY W/O ANG PCTRS (5) CKD (chronic kidney disease) Code(s): N18.9 - CHRONIC KIDNEY DISEASE, UNSPECIFIED (6) ASHD (arteriosclerotic heart disease) Code(s): I25.10 - ATHSCL HEART DISEASE OF [place] CORONARY ARTERY W/O ANG PCTRS (7) Anemia Code(s): D64.9 - ANEMIA, UNSPECIFIED (8) Anxiety Code(s): F41.9 - ANXIETY DISORDER, UNSPECIFIED (9) HLD (hyperlipidemia) Code(s): E78.5 - HYPERLIPIDEMIA, UNSPECIFIED (10) HTN (hypertension) Code(s): I10 - ESSENTIAL (PRIMARY) HYPERTENSION (11) IDDM (insulin dependent diabetes mellitus) Code(s): E11.9 - TYPE 2 DIABETES MELLITUS WITHOUT COMPLICATIONS; Z79.4 - [place] (CURRENT) USE OF INSULIN (12) Sleep apnea, obstructive Code(s): G47.33 - OBSTRUCTIVE SLEEP APNEA (ADULT) (PEDIATRIC) Assessment/Plan Diuresis as tolerated O2 to maintain saturation CPAP @ 11 cm H2O QHS and PRN Daily weight I&O vascular evaluation negative Symbicort BID Patient developed lip swelling to Spiriva in the past No indication for systemic steroids Monitor off ABX Will follow Omayra LONG MD
[2018-04-15] MEDS ORDERED: INSULIN (NOVOLOG) ASPART 100 UNITS/ML 10ML VIAL ONE ×2 (17:37→21:04)
--- NOTE | 2018-04-15 17:48 | PN ---
Progress Note, Physician - Current Medication List Current Medications: Active Medications Acetaminophen (Tylenol -) 650 mg PO Q4H PRN PRN Reason: PAIN Last Admin: 04/14/18 21:04 Dose: 650 mg Albuterol Sulfate (Ventolin 0.083% Nebulizer Soln -) 1 amp NEB Q4H PRN PRN Reason: SHORT OF BREATH/WHEEZING Last Admin: 04/15/18 10:04 Dose: 1 amp Aspirin (Asa -) 81 mg PO DAILY [facility] Last Admin: 04/15/18 09:50 Dose: 81 mg Budesonide/Formoterol Fumarate (Symbicort 160/4.5mcg -) 2 puff IH BID [facility] Last Admin: 04/15/18 09:51 Dose: 2 puff Carvedilol (Coreg Cr -) 10 mg PO DAILY [facility] Last Admin: 04/15/18 12:33 Dose: 10 mg Clonazepam (Klonopin -) 0.5 mg PO Q6H PRN PRN Reason: ANXIETY Last Admin: 04/15/18 03:47 Dose: 0.5 mg Ezetimibe (Zetia -) 10 mg PO Q2D@1000 [facility] Last Admin: 04/15/18 09:50 Dose: 10 mg Enoxaparin Sodium (Lovenox -) 100 mg SQ DAILY [facility] Last Admin: 04/15/18 09:51 Dose: 100 mg Hydralazine HCl (Apresoline -) 37.5 mg PO TID [facility] Last Admin: 04/15/18 14:38 Dose: 37.5 mg Insulin Aspart (Novolog Vial Sliding Scale -) 1 vial SQ ACHS [facility] PRN Reason: Protocol Last Admin: 04/15/18 11:11 Dose: 4 units Nitroglycerin (Nitro-Dur Patch -) 0.2 mg TD DAILY [facility] Last Admin: 04/15/18 09:52 Dose: 0.2 mg Prasugrel (Effient -) 10 mg PO DAILY [facility] Last Admin: 04/15/18 09:52 Dose: 10 mg Rosuvastatin Calcium (Crestor -) 10 mg PO HS [facility] Last Admin: 04/14/18 21:03 Dose: 10 mg Sodium Bicarbonate (Sodium Bicarbonate -) 650 mg PO DAILY [facility] Last Admin: 04/15/18 09:50 Dose: 650 mg - Objective Vital Signs: Vital Signs Temperature 98.0 F 04/15/18 14:40 Pulse Rate 112 H 04/15/18 15:26 Respiratory Rate 18 04/15/18 14:40 Blood Pressure 168/80 04/15/18 14:40 O2 Sat by Pulse Oximetry (%) 96 04/15/18 15:26 Constitutional: Yes: No Distress HENT: Yes: Atraumatic Neck: Yes: Supple Cardiovascular: Yes: Regular Rate and Rhythm Respiratory: Yes: CTA Bilaterally Extremities: Yes: WNL Edema: Yes Edema: LLE: 2+, RLE: 2+ Peripheral Pulses WNL: Yes Neurological: Yes: Alert, Oriented Labs: CBC, BMP 04/14/18 07:12 04/15/18 06:00 Problem List - Problems (1) CHF (congestive heart failure) Assessment/Plan: breathing better continue home meds Code(s): I50.9 - HEART FAILURE, UNSPECIFIED Qualifiers: Heart failure type: unspecified Heart failure chronicity: acute on chronic Qualified Code(s): I50.9 - Heart failure, unspecified (2) CAD (coronary artery disease) Assessment/Plan: cardio consult noted Code(s): I25.10 - ATHSCL HEART DISEASE OF [place] CORONARY ARTERY W/O ANG PCTRS (3) CKD (chronic kidney disease) Assessment/Plan: fu cr..same Code(s): N18.9 - CHRONIC KIDNEY DISEASE, UNSPECIFIED (4) HLD (hyperlipidemia) Assessment/Plan: on meds Code(s): E78.5 - HYPERLIPIDEMIA, UNSPECIFIED (5) HTN (hypertension) Assessment/Plan: on meds stable Code(s): I10 - ESSENTIAL (PRIMARY) HYPERTENSION (6) Elevated troponin Assessment/Plan: pt on lovenox could be demand ischemia doppler b/l steve ordered Code(s): R74.8 - ABNORMAL LEVELS OF OTHER SERUM ENZYMES Assessment/Plan decrease dose of lovenox to dvt ppx dvt negative
[2018-04-15] MEDS: ROSUVASTATIN CA 10 MG TABLET (FP) PO SCH (21:09)
[2018-04-16] MEDS: hydrALAZINE HCL 25 MG TABLET (FP) PO SCH ×3 (05:58→22:15)
[2018-04-16] MEDS: INSULIN SLIDING SCALE (NOVOLOG) 1 VIAL SQ SCH ×4 (06:01→22:19)
[2018-04-16] MEDS: ALBUTEROL SO4 0.083% IH SOL 2.5 MG/3 ML VIAL.NEB. NEB PRN ×2 (08:36→20:45)
[2018-04-16] MEDS ORDERED: PT OWN MED DRAWER 7, Y5N ONE ×3 (09:11→22:13)
[2018-04-16] MEDS: SODIUM BICARBONATE 650 MG TABLET PO SCH (09:22)
[2018-04-16] MEDS: ASPIRIN 81 MG CHEWABLE TABLETS PO SCH (09:23)
[2018-04-16] MEDS ORDERED: ENOXAPARIN NA (PORCINE) 30 MG/0.3 ML DISP.SYRIN SQ SCH (10:00)
[2018-04-16] MEDS: BUDESONIDE/FORMETEROL FUMARATE 160/4.5 mcg INHALER IH SCH ×2 (10:19→22:20)
[2018-04-16] MEDS: CARVEDILOL PHOSPHATE CR 10 MG CAPSULE PO SCH (10:22)
[2018-04-16] MEDS: PRASUGREL HCL 10 MG TAB PO SCH (10:22)
[2018-04-16] MEDS: NITROGLYCERIN 0.2 MG/HOUR TD PATCH TD SCH (10:22)
--- NOTE | 2018-04-16 11:17 | PN ---
Progress Note, Physician History of Present Illness: No complaints Tele with sinus tach to 105 No chest pain - Current Medication List Current Medications: Active Medications Acetaminophen (Tylenol -) 650 mg PO Q4H PRN PRN Reason: PAIN Last Admin: 04/14/18 21:04 Dose: 650 mg Albuterol Sulfate (Ventolin 0.083% Nebulizer Soln -) 1 amp NEB Q4H PRN PRN Reason: SHORT OF BREATH/WHEEZING Last Admin: 04/16/18 08:36 Dose: 1 amp Aspirin (Asa -) 81 mg PO DAILY [facility] Last Admin: 04/16/18 09:23 Dose: 81 mg Budesonide/Formoterol Fumarate (Symbicort 160/4.5mcg -) 2 puff IH BID [facility] Last Admin: 04/16/18 10:19 Dose: Not Given Carvedilol (Coreg Cr -) 10 mg PO DAILY [facility] Last Admin: 04/16/18 10:22 Dose: 10 mg Clonazepam (Klonopin -) 0.5 mg PO Q6H PRN PRN Reason: ANXIETY Last Admin: 04/15/18 21:09 Dose: 0.5 mg Ezetimibe (Zetia -) 10 mg PO Q2D@1000 [facility] Last Admin: 04/15/18 09:50 Dose: 10 mg Enoxaparin Sodium (Lovenox -) 30 mg SQ DAILY [facility] Last Admin: 04/16/18 09:23 Dose: 30 mg Hydralazine HCl (Apresoline -) 37.5 mg PO TID [facility] Last Admin: 04/16/18 05:58 Dose: 37.5 mg Insulin Aspart (Novolog Vial Sliding Scale -) 1 vial SQ ACHS [facility] PRN Reason: Protocol Last Admin: 04/16/18 06:01 Dose: Not Given Nitroglycerin (Nitro-Dur Patch -) 0.2 mg TD DAILY [facility] Last Admin: 04/16/18 10:22 Dose: 0.2 mg Prasugrel (Effient -) 10 mg PO DAILY [facility] Last Admin: 04/16/18 10:22 Dose: 10 mg Rosuvastatin Calcium (Crestor -) 10 mg PO HS [facility] Last Admin: 04/15/18 21:09 Dose: 10 mg Sodium Bicarbonate (Sodium Bicarbonate -) 650 mg PO DAILY [facility] Last Admin: 04/16/18 09:22 Dose: Not Given - Objective Vital Signs: Vital Signs Temperature 97.9 F 04/16/18 10:00 Pulse Rate 103 H 04/16/18 10:00 Respiratory Rate 20 04/16/18 10:00 Blood Pressure 158/78 04/16/18 10:00 O2 Sat by Pulse Oximetry (%) 96 04/16/18 09:00 Constitutional: Yes: No Distress, Calm Eyes: Yes: Conjunctiva Clear HENT: Yes: WNL, Atraumatic Neck: Yes: Supple, Trachea Midline Cardiovascular: Yes: Regular Rate and Rhythm, Tachycardia Respiratory: Yes: CTA Bilaterally Gastrointestinal: Yes: Normal Bowel Sounds Musculoskeletal: Yes: WNL Extremities: Yes: WNL Edema: No Labs: CBC, BMP 04/14/18 07:12 04/15/18 06:00 Assessment/Plan 63 yo with h/o CAD--h/o NSTEMI '13 s/p LAD KAREN PCI 09/2013, and prox LCx KAREN PCI 2014, dchf, HTN, venous insufficiency, htn, hl, lone afib/PSVT, MR, pHTN, KATINA, copd, NAFLD, CKD, renal stones (obstructive, with R hydro, s/p stent) , anemia, IDDM and recent thyroid abnormalities who p/w acute htn with recent worsening of sob/le edema. sob/le edema/chronic diastolic CHF/venous insufficiency - s/p 80 mg IV lasix x 1 in ER. - discussed with outpatient security orderly. LE edema did not improve as outpatient after torsemide dose increased from 20 to 40. However, cr worsened significantly. Patient below dry weight. His assessment was that LE edema was likely from venous insufficiency and not heart failure exacerbation. - bnp likely elevated in setting of obi, not necessarily reflective of volume status. would hold diuretics and assess for improvement in renal function. - May also have contribution from flash pulmonary edema 2/2 to htn or tachycarida. HTN mgm't as below. Con't home ntg patch and BB. - intermittent SHAN wraps to LE to improve edema. Patient also with diminished dp /pt and pain/discoloration at right heel. Had plan for vascular eval for venous insufficiency as outpatient, consider inpatient eval - 04/16/18: Weight 227, Creat 3.5 (3.6). Continue to hold diuretics sob/cough/copd/bronchospasm - low suspicion for acute hf exacerbation. - mgm't of copd component per pmd. HTN: - intolerant of multiple BP meds before--diovan, micardis, verap, norvasc, nifedipine, nisoldipine, catapres patch, see below. - Per office notes, home regimen was coreg CR 10, hydral 37.5 TID, nitro patch 0.2mg (BUCKNER with higher doses) and aldactone 12.5 mg/day (recently added with improvement in bp's as outpatient) - will hold aldactone in setting of obi. Currently sbp suboptimal, but patient has not yet received meds, will order and monitor for improvement. -RAAS blockers deferred as outpatient given labile creatinines and CKD. Per prior notes, Dr. Chen would prefer to avoid minoxidil given very labile volume retention behavior. CAD with elevated troponin: -s/p prox LCx KAREN PCI 2014 for crescendo angina, also with prior mLAD stent ( patent 2014), residual 70-80% distal RCA disease - chronic elevation in troponin around 0.3. Thought to be 2/2 hi LV filling pressures in setting of ckd and residual cad. Now again with elevated troponin. Overall similar to priors and with flat trend. EKG ... con't clair. currently no signs of acs. - Continue home DAPT with ASA and Effient. cont home crestor, zetia, coreg, NTG patch. HPL: - Myalgias w Atorva/Simva and high dose crestor. tolerating crestor 10 mg, and zetia as outpatient, con't KATINA / Mod PHTN - compliant with CPAP at home --> con't here. ARF / CKD: - recent baseline creat 2.7-2.9. - here with OBI, hold diuresis and monitor for improvement Remote PAF and PSVT - lone AF episode in setting of dobutamine, no recurrence. No AC thought to be indicated - here with tachycardia, appears to be sinus, --> tele monitoring. -04/16/18: Sinus tach (105/min) after neb treatment hyperthyroid: -per pmd/endo
[2018-04-16] MEDS: ACETAMINOPHEN 325 MG TABLET (FP) PO PRN (11:33)
[2018-04-16] MEDS ORDERED: INSULIN (NOVOLOG) ASPART 100 UNITS/ML 10ML VIAL ONE (11:36)
[2018-04-16 12:02] LABS: ANION GAP 7 (8-16); CALCIUM 8.6 mg/dL (8.5-10.1); CHLORIDE 107 mmol/L (98-107); CO2 25 mmol/L (21-32); CREATININE 3.5 mg/dL (0.55-1.02); GLUCOSE,RANDOM 172 mg/dL (74-106); POTASSIUM 4.5 mmol/L (3.5-5.1); SODIUM 139 mmol/L (136-145)
[2018-04-16 12:09] LABS: BLOOD UREA NITROGEN 109 mg/dL (7-18)
--- NOTE | 2018-04-16 13:05 | PN ---
Progress Note (short form) - Note Progress Note: PULMONARY AWAKE/ALERT REMAINS SOB VSS/AFEBRILE ANICTERIC DISTANT B/L BREATH SOUNDS S1S2 BS+ SOFT OBESE 2+ EDEMA B/L LOWER EXT LABS/MEDS/CONSULTS/EKG/NOTES/IMAGING/ REVIEWED Problem List - Problems (1) CHF (congestive heart failure) Code(s): I50.9 - HEART FAILURE, UNSPECIFIED Qualifiers: Heart failure type: unspecified Heart failure chronicity: acute on chronic Qualified Code(s): I50.9 - Heart failure, unspecified (2) Acute on chronic heart failure Code(s): I50.9 - HEART FAILURE, UNSPECIFIED (3) Acute on chronic kidney failure Code(s): N17.9 - ACUTE KIDNEY FAILURE, UNSPECIFIED; N18.9 - CHRONIC KIDNEY DISEASE, UNSPECIFIED (4) CAD (coronary artery disease) Code(s): I25.10 - ATHSCL HEART DISEASE OF [place] CORONARY ARTERY W/O ANG PCTRS (5) CKD (chronic kidney disease) Code(s): N18.9 - CHRONIC KIDNEY DISEASE, UNSPECIFIED (6) ASHD (arteriosclerotic heart disease) Code(s): I25.10 - ATHSCL HEART DISEASE OF [place] CORONARY ARTERY W/O ANG PCTRS (7) Anemia Code(s): D64.9 - ANEMIA, UNSPECIFIED (8) Anxiety Code(s): F41.9 - ANXIETY DISORDER, UNSPECIFIED (9) HLD (hyperlipidemia) Code(s): E78.5 - HYPERLIPIDEMIA, UNSPECIFIED (10) HTN (hypertension) Code(s): I10 - ESSENTIAL (PRIMARY) HYPERTENSION (11) IDDM (insulin dependent diabetes mellitus) Code(s): E11.9 - TYPE 2 DIABETES MELLITUS WITHOUT COMPLICATIONS; Z79.4 - [employer] (CURRENT) USE OF INSULIN (12) Sleep apnea, obstructive Code(s): G47.33 - OBSTRUCTIVE SLEEP APNEA (ADULT) (PEDIATRIC) Assessment/Plan Diuresis as tolerated O2 to maintain saturation CPAP @ 11 cm H2O QHS and PRN Daily weight I&O vascular evaluation negative Symbicort BID Patient developed lip swelling to Spiriva in the past No indication for systemic steroids Monitor off ABX Will follow Omayra LONG MD
--- NOTE | 2018-04-16 13:28 | PN ---
Progress Note (short form) - Note Progress Note: Renal follow up for OBI on CKD Pt seen and examined in Tele awake and alert upset about itching in her right heel has cough, no overt sob no chest lindsey Vital Signs Temperature 97.9 F 04/16/18 10:00 Pulse Rate 103 H 04/16/18 10:00 Respiratory Rate 20 04/16/18 10:00 Blood Pressure 158/78 04/16/18 10:00 O2 Sat by Pulse Oximetry (%) 96 04/16/18 09:00 Intake & Output 04/13/18 04/14/18 04/15/18 04/16/18 23:59 23:59 23:59 23:59 Intake Total 1450 1420 130 Output Total 900 1325 Balance 550 95 130 Weight 102.965 kg 102.784 kg 102.965 kg 102.965 kg NAD on NC O2 No JVD, Neck supple RRR, No M/R Dec BS b/l lung garcia obese, NT/ND + LE edema, no cyanosis or clubbing CBC, BMP 04/14/18 07:12 04/16/18 11:25 Current Medications Acetaminophen (Tylenol -) 650 mg PO Q4H PRN PRN Reason: PAIN Last Admin: 04/16/18 11:33 Dose: 650 mg Albuterol Sulfate (Ventolin 0.083% Nebulizer Soln -) 1 amp NEB Q4H PRN PRN Reason: SHORT OF BREATH/WHEEZING Last Admin: 04/16/18 08:36 Dose: 1 amp Aspirin (Asa -) 81 mg PO DAILY [facility] Last Admin: 04/16/18 09:23 Dose: 81 mg Budesonide/Formoterol Fumarate (Symbicort 160/4.5mcg -) 2 puff IH BID [facility] Last Admin: 04/16/18 10:19 Dose: Not Given Carvedilol (Coreg Cr -) 10 mg PO DAILY [facility] Last Admin: 04/16/18 10:22 Dose: 10 mg Clonazepam (Klonopin -) 0.5 mg PO Q6H PRN PRN Reason: ANXIETY Last Admin: 04/15/18 21:09 Dose: 0.5 mg Ezetimibe (Zetia -) 10 mg PO Q2D@1000 [facility] Last Admin: 04/15/18 09:50 Dose: 10 mg Enoxaparin Sodium (Lovenox -) 30 mg SQ DAILY [facility] Last Admin: 04/16/18 09:23 Dose: 30 mg Hydralazine HCl (Apresoline -) 37.5 mg PO TID [facility] Last Admin: 04/16/18 05:58 Dose: 37.5 mg Hydroxyzine HCl (Atarax -) 10 mg PO Q6H [facility] Iron Sucrose 100 mg/ Sodium (Chloride) 100 mls @ 200 mls/hr IVPB ONCE ONE Stop: 04/16/18 13:54 Insulin Aspart (Novolog Vial Sliding Scale -) 1 vial SQ ACHS [facility] PRN Reason: Protocol Last Admin: 04/16/18 11:48 Dose: 4 units Nitroglycerin (Nitro-Dur Patch -) 0.2 mg TD DAILY [facility] Last Admin: 04/16/18 10:22 Dose: 0.2 mg Prasugrel (Effient -) 10 mg PO DAILY [facility] Last Admin: 04/16/18 10:22 Dose: 10 mg Rosuvastatin Calcium (Crestor -) 10 mg PO HS [facility] Last Admin: 04/15/18 21:09 Dose: 10 mg Sodium Bicarbonate (Sodium Bicarbonate -) 650 mg PO DAILY [facility] Last Admin: 04/16/18 09:22 Dose: Not Given 63 year old woman with PMhx of CKD Stage 4 (baseline Cr ~3) wit proteinuria, Insulin dependent DM, Hypertension, Diastolic HF, CAD who presents with SOB and LE swelling and found to have acute HF with Cr of 3.6. #CKD stage 4 with proteinuira #OBI #SOB #IDDM #Hypertension #CAD #Anemia #Metabolic acidosis Cr stable but BUN remains high no steroids or suspsion of GI bleed to contribute to high BUN will check CXR to r/o CHF, effuisons as it may be prudent to get IVF to improve renal function cardiology follow up Doppler showed no DVT Podiatiary consult placed give IV iron today for anemia with low iron saturation d/c sodium bicarb Thank you Goyo Cid DO
[2018-04-16] MEDS ORDERED: hydrOXYzine HCL 10 MG TABLET PO SCH (13:30)
[2018-04-16] MEDS ORDERED: IRON SUCROSE INJECTION 100 MG in SODIUM CHLORIDE 95 ML IVPB ONE (14:00)
--- NOTE | 2018-04-16 14:32 | CONSULT ---
Consult Reason for Consultation:: Right heel pain at callus site. - History Source Limitations to Obtaining History: No Limitations - Past Medical History Cardio/Vascular: Yes: AFIB, CAD, CHF, HTN, Hyperlipdemia, MS, Mitral Insufficiency, Pulmonary Hypertension Pulmonary: Yes: Sleep Apnea Renal/: Yes: Renal Failure Endocrine: Yes: Diabetes Mellitus - Past Surgical History Past Surgical History: Yes: Stent - Alcohol/Substance Use Hx Alcohol Use: No - Smoking History Smoking history: Never smoked Have you smoked in the past 12 months: No Aproximately how many cigarettes per day: 0 Home Medications - Allergies Allergies/Adverse Reactions: Allergies Allergy/AdvReac Type Severity Reaction Status Date / Time Penicillins Allergy Intermediate Hives Verified 04/13/18 11:42 Iodinated Contrast- Oral and Allergy Verified 04/13/18 11:42 IV Dye [Iodinated Contrast Media - IV Dye] tiotropium AdvReac Verified 04/13/18 11:42 [From Spiriva with [facility]er] - Home Medications Home Medications: Ambulatory Orders Aspirin [ASA -] 81 mg PO DAILY #1 tab 03/06/13 Rosuvastatin Calcium [Crestor] 10 mg PO HS 01/16/14 Ferrous Sulfate [Feosol] 325 mg PO BID #0 ud 05/08/15 Prasugrel Hydrochloride [Effient -] 10 mg PO DAILY #0 tab 05/08/15 Albuterol 0.083% Nebulizer Bibiana [Ventolin 0.083% Nebulizer Soln -] 1 neb NEB QID 09/14/16 Insulin Glargine,Hum.rec.anlog [Lantus (10mL VIAL) -] 30 units SQ HS 04/29/17 Insulin Lispro [Humalog] 100 unit SQ PRN 04/29/17 Budesonide/Formeterol Fumarate [SYMBICORT 160/4.5mcg -] 2 inh PO BID 06/13/17 clonazePAM [KlonoPIN] 0.5 mg PO QID PRN 06/13/17 Carvedilol Phosphate [Coreg Cr -] 10 mg PO DAILY #30 cap 06/23/17 Hydralazine HCl 50 mg PO TID #90 tablet 06/23/17 Acetaminophen [Tylenol .Regular Strength -] 650 mg PO Q6H PRN tablet 12/20/17 Albuterol 0.083% Nebulizer Bibiana [Ventolin 0.083% Nebulizer Soln -] 1 amp NEB Q4H #1 amp 12/20/17 Ezetimibe [Zetia -] 10 mg PO Q48H 30 Days #30 tablet 12/20/17 Nitroglycerin Patch [Nitro-Dur Patch -] 0.2 mg TD DAILY #30 patch.td24 12/20/17 Torsemide [Demadex -] 20 mg PO DAILY #60 tablet 12/20/17 predniSONE [Deltasone -] See Taper PO DAILY #60 tablet 12/20/17 Nitroglycerin Patch [Nitro-Dur Patch -] 0.2 mg TD DAILY #30 patch.td24 04/15/18 Prasugrel Hydrochloride [Effient -] 10 mg PO DAILY #30 tab 04/15/18 Rosuvastatin [Crestor -] 10 mg PO HS #30 tablet 04/15/18 Review of Systems - Review of Systems Constitutional: reports: No Symptoms Eyes: reports: No Symptoms HENT: reports: No Symptoms Neck: reports: No Symptoms Cardiovascular: reports: No Symptoms Respiratory: reports: No Symptoms Gastrointestinal: reports: No Symptoms Genitourinary: reports: No Symptoms Musculoskeletal: reports: No Symptoms Neurological: reports: No Symptoms Psychiatric: reports: No Symptoms Physical Exam Vital Signs: Vital Signs Temperature 97.9 F 04/16/18 10:00 Pulse Rate 103 H 04/16/18 10:00 Respiratory Rate 20 04/16/18 10:00 Blood Pressure 158/78 04/16/18 10:00 O2 Sat by Pulse Oximetry (%) 96 04/16/18 09:00 Constitutional: Yes: Well Nourished Eyes: Yes: WNL, Conjunctiva Clear, EOM Intact HENT: Yes: WNL, Atraumatic, Normocephalic Neck: Yes: WNL, Supple, Trachea Midline Cardiovascular: Yes: WNL, Regular Rate and Rhythm Respiratory: Yes: WNL, Regular, CTA Bilaterally Gastrointestinal: Yes: WNL, Normal Bowel Sounds ...Rectal Exam: Yes: WNL Renal/: Yes: WNL Breast(s): Yes: WNL Musculoskeletal: Yes: WNL, Other Extremities: Yes: Other (right heel callus .) Edema: Yes Peripheral Pulses WNL: Yes Integumentary: Yes: WNL Neurological: Yes: WNL, Alert, Oriented ...Motor Strength: WNL Psychiatric: Yes: WNL Labs: CBC, BMP 04/14/18 07:12 04/16/18 11:25 Problem List - Problems (1) Heel callus Code(s): L84 - CORNS AND CALLOSITIES Assessment/Plan right heel callus 1. Pain on palapation. [facility] podiatry evaluation for callus and foot care. 2. No need for any vascular intervention at this time. 3. offload area, moisterize.
[2018-04-16] MEDS: hydrOXYzine HCL 10 MG TABLET PO PRN ×2 (14:49→22:15)
--- NOTE | 2018-04-16 16:48 | DS ---
Physical Examination Vital Signs: Vital Signs Temperature 98.6 F 04/16/18 13:25 Pulse Rate 91 H 04/16/18 13:25 Respiratory Rate 16 04/16/18 13:25 Blood Pressure 141/74 04/16/18 13:25 O2 Sat by Pulse Oximetry (%) 96 04/16/18 09:00 Constitutional: Yes: No Distress HENT: Yes: Atraumatic Neck: Yes: Supple Cardiovascular: Yes: Regular Rate and Rhythm Respiratory: Yes: Rhonchi Gastrointestinal: Yes: Normal Bowel Sounds Extremities: Yes: WNL Edema: LLE: 2+, RLE: 2+ Neurological: Yes: Alert, Oriented Labs: CBC, BMP 04/14/18 07:12 04/16/18 11:25 Discharge Summary Reason For Visit: ELEVATED TROPONIN I LEVEL;CONGESTIVE HEART FAILURE Current Active Problems Elevated troponin (Acute) Heel callus (Acute) CHF (congestive heart failure) (Chronic) Condition: Fair - Instructions Referrals: William Bruner MD [Primary Care Provider] - - Home Medications Comprehensive Discharge Medication List: Ambulatory Orders Aspirin [ASA -] 81 mg PO DAILY #1 tab 03/06/13 Rosuvastatin Calcium [Crestor] 10 mg PO HS 01/16/14 Ferrous Sulfate [Feosol] 325 mg PO BID #0 ud 05/08/15 Prasugrel Hydrochloride [Effient -] 10 mg PO DAILY #0 tab 05/08/15 Albuterol 0.083% Nebulizer Bibiana [Ventolin 0.083% Nebulizer Soln -] 1 neb NEB QID 09/14/16 Insulin Glargine,Hum.rec.anlog [Lantus (10mL VIAL) -] 30 units SQ HS 04/29/17 Insulin Lispro [Humalog] 100 unit SQ PRN 04/29/17 Budesonide/Formeterol Fumarate [SYMBICORT 160/4.5mcg -] 2 inh PO BID 06/13/17 clonazePAM [KlonoPIN] 0.5 mg PO QID PRN 06/13/17 Carvedilol Phosphate [Coreg Cr -] 10 mg PO DAILY #30 cap 06/23/17 Hydralazine HCl 50 mg PO TID #90 tablet 06/23/17 Acetaminophen [Tylenol .Regular Strength -] 650 mg PO Q6H PRN tablet 01/22/18 Albuterol 0.083% Nebulizer Bibiana [Ventolin 0.083% Nebulizer Soln -] 1 amp NEB Q4H #1 amp 12/20/17 Ezetimibe [Zetia -] 10 mg PO Q48H 30 Days #30 tablet 12/20/17 Nitroglycerin Patch [Nitro-Dur Patch -] 0.2 mg TD DAILY #30 patch.td24 12/20/17 Torsemide [Demadex -] 20 mg PO DAILY #60 tablet 12/20/17 predniSONE [Deltasone -] See Taper PO DAILY #60 tablet 12/20/17 Nitroglycerin Patch [Nitro-Dur Patch -] 0.2 mg TD DAILY #30 patch.td24 04/15/18 Prasugrel Hydrochloride [Effient -] 10 mg PO DAILY #30 tab 04/15/18 Rosuvastatin [Crestor -] 10 mg PO HS #30 tablet 04/15/18 [facility]
--- NOTE | 2018-04-16 17:55 | PN ---
Progress Note (short form) - Note Progress Note: Pt seen at bedside in NAD , admitted for CHF Presents for Podiatry consult for painful right heel JEMAL Palpable pedal pulses NVSI (+) edema b/l pitting in nature NO signs of active infection Pretrophic ulcer right heel nonfluctuant Tender on palpation No fissures noted Impression Pretrophic ulcer right heel, noninfected Plan: Pt scheduled for discharge RECC followup with DPM or at [facility] [place] for debridement and follow up Thank you for courtesy of this consult
[2018-04-16] MEDS: ROSUVASTATIN CA 10 MG TABLET (FP) PO SCH (22:15)
[2018-04-17] MEDS: INSULIN SLIDING SCALE (NOVOLOG) 1 VIAL SQ SCH (06:12)
[2018-04-17] MEDS: hydrALAZINE HCL 25 MG TABLET (FP) PO SCH (06:12)
[2018-04-17 06:15] VITALS: BP 147/58; PULSE 105; TEMP 98.2
[2018-04-17] MEDS: ALBUTEROL SO4 0.083% IH SOL 2.5 MG/3 ML VIAL.NEB. NEB PRN (07:22)
--- NOTE | 2018-04-23 08:12 | EKG ---
Test Reason : Blood Pressure : / mmHG Vent. Rate : 105 BPM Atrial Rate : 105 BPM P-R Int : 152 ms QRS Dur : 088 ms QT Int : 346 ms P-R-T Axes : 040 008 003 degrees QTc Int : 457 ms SINUS TACHYCARDIA MINIMAL VOLTAGE CRITERIA FOR LVH, MAY BE NORMAL VARIANT BORDERLINE ECG WHEN COMPARED WITH ECG OF 13-APR-2018 12:12, SINUS RHYTHM HAS REPLACED ATRIAL FLUTTER NONSPECIFIC T WAVE ABNORMALITY NOW EVIDENT IN LATERAL LEADS Confirmed by JULISSA GALVAN MD ([id number]) on 04/23/2018 8:12:27 AM Referred By: Confirmed By:JULISSA GALVAN MD
== END 2018-04-17 09:25 | disposition home or self-care (01) | DRG 194 ==
LOC: JER 11:38 → JERBED 13:55 → J4W 22:25 → J4S 04-16 07:00
PROVIDERS: ADMIT Internal Medicine; ATTEND Internal Medicine
PROC: 5A09557 Assistance with Respiratory Ventilation, Greater than 96 Consecutive Hours, Continuous Positive Airway Pressure (ICD-10-PCS; principal; 2018-04-13)
DX: I13.0 Hypertensive heart and chronic kidney disease with heart failure and stage 1 through stage 4 chronic kidney disease, or unspecified chronic kidney disease (principal); I50.33 Acute on chronic diastolic (congestive) heart failure; I25.10 Atherosclerotic heart disease of native coronary artery without angina pectoris; Z95.1 Presence of aortocoronary bypass graft; E78.5 Hyperlipidemia, unspecified; N18.4 Chronic kidney disease, stage 4 (severe); D64.9 Anemia, unspecified; E87.2 Acidosis; G47.33 Obstructive sleep apnea (adult) (pediatric); I27.20 Pulmonary hypertension, unspecified; E11.22 Type 2 diabetes mellitus with diabetic chronic kidney disease; E87.70 Fluid overload, unspecified; N17.9 Acute kidney failure, unspecified; E66.9 Obesity, unspecified; Z68.37 Body mass index [BMI] 37.0-37.9, adult
CPT/HCPCS: 36415; 71045-TC-FY; 80048; 80053; 81003; 81015; 82550; 82570; 82728; 82962; 83540; 83550; 83735; 83880; 84100; 84156; 84300; 84443; 84484; 84540; 85025; 87070; 87205; 93005; 93010; 93970-TC; 94640; 94660; 99285-25; J1756; J7620

== ENCOUNTER 2018-05-25 13:54 | Inpatient (IN) | payer OTHER ==
--- NOTE | 2018-05-25 14:19 | PDOC ---
History of Present Illness - General Chief Complaint: Chest Pain Stated Complaint: PALPITATIONS, SOB Time Seen by Provider: 05/25/18 14:07 - History of Present Illness Initial Comments: 63 year old female with PMH of hyperthyroidisim, CKD, HTN, CHF, lymphadema, and asthma presenting with persistent palpitations and [facility]. States that she has had these palpitations and generally feeling unwell over the past week but acutely worsened today. She was fasting today prior to blood work at Kelsy Garcia's office and was noted to be tachycardic to the 140s. Her previous lab work in January demonstrated elevated T4 and free T3. Deneis fevers, chills, nausea, vomiting, diarrhea, constipation , chest pain, SOB, cough, headache, visual symptoms or other symptoms. 05/25/18 15:03 Past History - Past Medical History Allergies/Adverse Reactions: Allergies Allergy/AdvReac Type Severity Reaction Status Date / Time Penicillins Allergy Intermediate Hives Verified 05/25/18 14:01 Iodinated Contrast- Oral and Allergy Verified 05/25/18 14:01 IV Dye [Iodinated Contrast Media - IV Dye] tiotropium AdvReac Verified 05/25/18 14:01 [From Spiriva with HandiHaler] Home Medications: Ambulatory Orders Aspirin [ASA -] 81 mg PO DAILY #1 tab 03/06/13 Ferrous Sulfate [Feosol] 325 mg PO BID #0 ud 05/08/15 Prasugrel Hydrochloride [Effient -] 10 mg PO DAILY #0 tab 05/08/15 Albuterol 0.083% Nebulizer Bibiana [Ventolin 0.083% Nebulizer Soln -] 1 neb NEB QID 09/14/16 Insulin Glargine,Hum.rec.anlog [Lantus (10mL VIAL) -] 30 units SQ HS 04/29/17 Insulin Lispro [Humalog] 100 unit SQ PRN 04/29/17 Budesonide/Formeterol Fumarate [SYMBICORT 160/4.5mcg -] 2 inh PO BID 06/13/17 clonazePAM [KlonoPIN] 0.5 mg PO QID PRN 06/13/17 Carvedilol Phosphate [Coreg Cr -] 10 mg PO DAILY #30 cap 06/23/17 Hydralazine HCl 50 mg PO TID #90 tablet 06/23/17 Albuterol 0.083% Nebulizer Bibiana [Ventolin 0.083% Nebulizer Soln -] 1 amp NEB Q4H #1 amp 12/20/17 Ezetimibe [Zetia -] 10 mg PO Q48H 30 Days #30 tablet 12/20/17 Nitroglycerin Patch [Nitro-Dur Patch -] 0.2 mg TD DAILY #30 patch.td24 12/20/17 Torsemide [Demadex -] 20 mg PO DAILY #60 tablet 12/20/17 Rosuvastatin [Crestor -] 10 mg PO HS #30 tablet 04/15/18 Anemia: Yes Asthma: Yes Cancer: No Cardiac Disorders: Yes (NM 2012, 1 stent, CAD, Pulmonary HTN) CVA: No COPD: No CHF: Yes (Diastolic) Dementia: No Diabetes: Yes (Insulin Dependent) GI Disorders: No Disorders: Yes (CKD, elevated creatinine) HTN: Yes Hypercholesterolemia: Yes Liver Disease: No Seizures: No Thyroid Disease: No - Surgical History Abdominal Surgery: No Appendectomy: No Cardiac Surgery: Yes (2 stents 04/29/2015) Cholecystectomy: No Lung Surgery: No Neurologic Surgery: No Orthopedic Surgery: Yes (arthroscopy sep 08 @ [facility]) - Immunization History Immunization Up to Date: Yes - Suicide/Smoking/Psychosocial Hx Smoking Status: No Smoking History: Never smoked Have you smoked in the past 12 months: No Number of Cigarettes Smoked Daily: 0 Information on smoking cessation initiated: No Hx Alcohol Use: No Drug/Substance Use Hx: No Substance Use Type: None Hx Substance Use Treatment: No Review of Systems - Review of Systems Constitutional: No: Chills, Diaphoresis, Fever, Weakness, Weight Stable HEENTM: No: Tearing, Recent change in vision, Double Vision Respiratory: No: Cough, Orthopnea, Shortness of Breath, SOB with Exertion Cardiac (ROS): Yes: Edema. No: Chest Pain, Syncope ABD/GI: No: Nausea, Vomiting : No: Burning, Dysuria, Discharge, Frequency Integumentary: No: Bruising, Change in Color, Dryness, Erythema, Flushing, Lesions Neurological: No: Numbness, Paresthesia, Seizure, Tremors *Physical Exam - Vital Signs Last Vital Signs Temp Pulse Resp BP Pulse Ox 97.8 F 137 H 22 173/116 96 06/27/18 14:02 05/25/18 14:02 05/25/18 14:02 05/25/18 14:02 05/25/18 14:02 ED Treatment Course - LABORATORY CBC & Chemistry Diagram: 05/25/18 14:28 05/25/18 15:42 Medical Decision Making - Medical Decision Making Dr. Melendrez - Propanolol 20 TID and Methimazole TID 05/25/18 17:37 *DC/Admit/Observation/Transfer - Referrals Referrals: William Bruner MD [Primary Care Provider] - - Patient Instructions - Post Discharge Activity
[2018-05-25] MEDS ORDERED: SODIUM CHLORIDE 0.9% 500 ML INFUS.BAG IV ONE ×2 (14:41→15:14)
[2018-05-25] MEDS ORDERED: CARVEDILOL PHOSPHATE CR 10 MG CAPSULE PO ONE (14:42)
[2018-05-25 14:52] LABS: BASO % 0.9 % (0-2.0); EOS % 2.5 % (0-4.5); HEMATOCRIT 31.1 % (32.4-45.2); HEMOGLOBIN 10.1 GM/dL (10.7-15.3); LYMPH % 26.1 % (8-40); MCH 24.7 pg (25.7-33.7); MCHC 32.5 g/dl (32.0-36.0); MEAN PLT VOLUME 8.8 fl (7.5-11.1); MONO % 9.9 % (3.8-10.2); NEUT % 60.6 % (42.8-82.8); PLATELET COUNT 302 K/MM3 (134-434); RBC 4.09 M/mm3 (3.60-5.2); RDW 14.2 % (11.6-15.6); WHITE BLOOD COUNT 5.9 K/mm3 (4.0-10.0)
[2018-05-25] MEDS ORDERED: CARVEDILOL 3.125 MG TABLET (FP) ONE (15:00)
[2018-05-25] MEDS ORDERED: CARVEDILOL 3.125 MG TABLET (FP) PO ONE ×3 (15:01→15:03)
[2018-05-25] MEDS ORDERED: CARVEDILOL 6.25 MG TABLET (FP) PO ONE (15:01)
[2018-05-25] MEDS ORDERED: METHIMAZOLE 10 MG TABLET (FP) PO ONE (15:31)
--- NOTE | 2018-05-25 15:35 | PDOC ---
Attending Attestation - Resident Resident Name: Dominic Shelton - ED Attending Attestation I have performed the following: I have examined & evaluated the patient, The case was reviewed & discussed with the resident, I agree w/resident's findings & plan, Exceptions are as noted - HPI HPI: 05/25/18 15:23 "The patient is a 63 year old female, with a significant past medical history of hyperthyroidism, hypertension, CHF, CKD, asthma, and iron deficiency, who presents to the emergency department with generalized weakness and fatigue for approximately 1 week. The patient reports one week of just not feeling well. She reports associated palpitations, but denies any chest pain, shortness of breath, diaphoresis, or lower extremity edema. Patient reports her symptoms acutely worsened today after fasting and missing a dose of her thyroid medication for bloodwork at her Nephrologists office. The patient denies any fever, chills, cough, headache, or dizziness. She denies any abdominal pain, nausea, vomiting, diarrhea, or constipation. She denies any dysuria, hematuria, frequency, or urgency. Allergies: Penicillins, Iodinated contrast oral and IV dye, and tiotropium Insurance Producer: Dr. Tamara Garcia " - Physicial Exam PE: 05/25/18 15:35 "GENERAL: Awake, alert, and fully oriented, in no acute distress. HEAD: No signs of trauma EYES: PERRLA, EOMI, sclera anicteric, conjunctiva clear ENT: Auricles normal inspection, hearing grossly normal, nares patent, oropharynx clear without exudates. Moist mucosa NECK: Nontender, no stepoffs, Normal ROM, supple, no lymphadenopathy, JVD, or masses LUNGS: Breath sounds equal, clear to auscultation bilaterally. No wheezes, and no crackles HEART: Rapid, normal S1 and S2, no murmurs, rubs or gallops ABDOMEN: Soft, nontender, normoactive bowel sounds. No guarding, no rebound. No masses EXTREMITIES: Normal range of motion, no edema. No clubbing or cyanosis. No cords, erythema, or tenderness NEUROLOGICAL: Cranial nerves II through XII intact. 5/5 strength and sensation in all extremities, Normal speech, normal gait, normal cerebellar function SKIN: Warm, Dry, normal turgor, no rashes or lesions noted. " - Medical Decision Making 05/25/18 15:36 63 F with weakness and fatigue, found to be tachycardic and hypertensive. Possible thyrotoxicosis given known h/o hyperthyroidism. Will also evaluate for infectious process though pt with no fever or clinical symptoms of infection. - Labs, TSH, T3/T4 - Propranolol, Methimazole - Consider steroids and iodine - Admit 05/25/18 16:57 CXR shows LLL opacity. Pt started on levaquin HR improving with meds, will continue to monitor
[2018-05-25 16:41] LABS: ALBUMIN 3.2 g/dl (3.4-5.0); ANION GAP 11 (8-16); BILIRUBIN,TOTAL 0.4 mg/dL (0.2-1.0); BLOOD UREA NITROGEN 45 mg/dL (7-18); CALCIUM 8.8 mg/dL (8.5-10.1); CHLORIDE 105 mmol/L (98-107); CO2 25 mmol/L (21-32); CREATININE 2.5 mg/dL (0.55-1.02); GLUCOSE,RANDOM 158 mg/dL (74-106); POTASSIUM 4.3 mmol/L (3.5-5.1); SGOT/AST 31 U/L (15-37); SGPT/ALT 39 U/L (12-78); SODIUM 141 mmol/L (136-145); TOT PROT 6.9 g/dl (6.4-8.2)
[2018-05-25 16:50] LABS: ALK PHOS 111 U/L (45-117)
[2018-05-25] MEDS ORDERED: FUROSEMIDE 40 MG/4 ML INJECTABLE VIAL IVPUSH ONE (17:02)
[2018-05-25] MEDS ORDERED: VANCOMYCIN 1,000 MG in DEXTROSE 5%-WATER - 250 ML IVPB ONE (17:20)
[2018-05-25] MEDS ORDERED: VANCOMYCIN 1 GRAM (PRE-DOCKED) 1,000 MG/250 ML BAG IVPB ONE (17:23)
[2018-05-25] MEDS ORDERED: FUROSEMIDE 40 MG/4 ML INJECTABLE VIAL ONE (17:23)
--- NOTE | 2018-05-25 17:30 | PN ---
Progress Note (short form) - Note Progress Note: PULMONARY CONSULTATION DICTATED 05/25/18 IMP DYSPNEA ?CHF ?FLASH PULMONARY EDEMA FROM TACHYCARDIA LEFT BASILAR OPACITY ? PNEUMONIA,?EFFUSION/ATELECTASIS HYPERTENSIVE URGENCY TACHYCARDIA HYPERTHYROIDISM CKD PULMONARY HTN DM OSAS ON CPAP [id number] ASHD S/P NSTEMI,S/P STENTS ASTHMA CHRONIC VENOUS INSUFFICIENCY PLAN O2 LASIX 40 X1 INHALED BRONCHODILATORS TITRATE BP MEDS RATE CONTROL SHORT COURSE OF STEROIDS BETA-BLOCKERS CHEST CT CPAP AT TECHNICAL COMMUNICATOR LYTES,RENAL FUNCTION ECHO ENDOCRINE EVALUATION,CARDIOLOGY EVALUATION F/U CHEST X-RAYS DR BENDER Problem List - Problems (1) Acute on chronic heart failure Code(s): I50.9 - HEART FAILURE, UNSPECIFIED (2) CAD (coronary artery disease) Code(s): I25.10 - ATHSCL HEART DISEASE OF [place] CORONARY ARTERY W/O ANG PCTRS (3) CKD (chronic kidney disease) Code(s): N18.9 - CHRONIC KIDNEY DISEASE, UNSPECIFIED (4) KATINA (obstructive sleep apnea) Code(s): G47.33 - OBSTRUCTIVE SLEEP APNEA (ADULT) (PEDIATRIC) (5) ASHD (arteriosclerotic heart disease) Code(s): I25.10 - ATHSCL HEART DISEASE OF [place] CORONARY ARTERY W/O ANG PCTRS (6) CHF (congestive heart failure) Code(s): I50.9 - HEART FAILURE, UNSPECIFIED Qualifiers: Heart failure type: unspecified Heart failure chronicity: acute on chronic Qualified Code(s): I50.9 - Heart failure, unspecified (7) HLD (hyperlipidemia) Code(s): E78.5 - HYPERLIPIDEMIA, UNSPECIFIED (8) HTN (hypertension) Code(s): I10 - ESSENTIAL (PRIMARY) HYPERTENSION (9) IDDM (insulin dependent diabetes mellitus) Code(s): E11.9 - TYPE 2 DIABETES MELLITUS WITHOUT COMPLICATIONS; Z79.4 - ASSISTED (CURRENT) USE OF INSULIN (10) Sleep apnea, obstructive Code(s): G47.33 - OBSTRUCTIVE SLEEP APNEA (ADULT) (PEDIATRIC) (11) Hypertensive urgency Code(s): I16.0 - HYPERTENSIVE URGENCY (12) Hyperthyroidism Code(s): E05.90 - THYROTOXICOSIS, UNSP WITHOUT THYROTOXIC CRISIS OR STORM (13) Pneumonia Code(s): J18.9 - PNEUMONIA, UNSPECIFIED ORGANISM (14) Thyrotoxicosis Code(s): E05.90 - THYROTOXICOSIS, UNSP WITHOUT THYROTOXIC CRISIS OR STORM
[2018-05-25] MEDS ORDERED: AZTREONAM 0.5 GM in DEXTROSE 5%-WATER - 50 ML IVPB ONE (17:38)
--- NOTE | 2018-05-25 17:56 | PN ---
Teaching Attending Note Name of Resident: Carey Gamboa ATTENDING PHYSICIAN STATEMENT I saw and evaluated the patient. I reviewed the resident's note and discussed the case with the resident. I agree with the resident's findings and plan as documented. SUBJECTIVE:62-year-old woman with a history of chronic diastolic heart failure, type 2 DM, HTN, hyperlipidemia, CAD, CABG, asthma, KATINA, anxiety, pulm HTN, PAF who was sent to the ER with palpitations from Dr Mcdonald's office with HR 150's. since arrival to the ER her symptoms have improved but still having some palpitations. states she was dx with hyperthyroid and had u/s and radioactive scan and was found to have a nodule but has not had it bx at this point. states she is on methimazole but not sure of the dose. other than palpitations which started this AM has not had any other symptoms. was hospitalized last month for COPD exacerbation. has persistent cough but no change in persistence or sputum production. denies CP, SOB, fever, chills, N/V/C/D OBJECTIVE: Last Vital Signs Temp Pulse Resp BP Pulse Ox 97.8 F 111 H 22 147/84 100 05/25/18 14:02 05/25/18 16:29 05/25/18 14:02 05/25/18 16:29 05/25/18 15:27 General NAD CV S1 S2 irregular tachycardic Lungs diffuse wheezing, decreased breath sounds L base. poor inspiratory effort Abdomen soft NT/ND obese Extremities 1+ pitting edema with non pitting edema ASSESSMENT AND PLAN: 62-year-old woman with a history of chronic diastolic heart failure, type 2 DM, HTN, hyperlipidemia, CAD, CABG, asthma, KATINA, anxiety, pulm HTN, PAF who presented to the ER with palpitations and found to be acute thyrotoxicosis 1. acute thyrotoxicosis- Tele admission. received coreg 12.5 in the ER with methimazole. HR currently 105. and appears comfortable. will need to verify home dose with pharmacy. endocrine consult. check T4. will need to determine from PMD what workup has been done already regarding antibody testing 2. LLL atelectasis vs infiltrate- low clinical suspicion for PNA as afebrile and leukocytosis. received vanco/levaquin in the ER. check EKG for Qtc. possible short course of abx. noted PCN allergy 3. BP- above goal. re-start home medications. titrate to optimize control 4. chronic diastolic CHF- questionable pulm congestion on CXR perhaps flash pulm edema. received lasix 40mg IVP x1. will monitor for improvement. 5. DM- continue home medications. iss,bgm, diabetic diet 6. CAD s/p 2 stents- on prasugrel. cont medication 7. PAF- been in sinus rhythm. may be irregular at the moment. check EKG. continuous cardiac monitoring 8. CKD- at baseline 9. COPD- mild expiratory wheezing. give ipatroprium nebs as neeed. cont inhalers. pulmonary consulted 10. DVT ppx- hep sq
[2018-05-25 18:25] LABS: URINE APPEARANCE CLEAR; URINE BILIRUBIN NEGATIVE (<2.0 mg/dL); URINE COLOR LTYELLOW; URINE GLUCOSE (UA) NEGATIVE (NEGATIVE); URINE KETONE NEGATIVE (NEGATIVE); URINE LEUK ESTERASE NEGATIVE (NEGATIVE); URINE NITRITE NEGATIVE (NEGATIVE); URINE PROTEIN NEGATIVE (NEGATIVE); URINE UROBILINOGEN NEGATIVE mg/dL (0.2-1.0)
--- NOTE | 2018-05-25 18:51 | HP ---
CHIEF COMPLAINT: Tachycardia x 1 day PCP: Dr Bruner Cardio: Dr Chen HISTORY OF PRESENT ILLNESS: Pt is a 63 yo F with a signif PMHx of DM, hyperthyroidism (diagnosed one month ago), HTN, CHF, HLD, CKD, asthma, iron deficiency, CAD (stents x2-2012, 2014), and afib (in distant past) presenting for tachycardia in 150s. Pt went for a routine visit to Dr Tamara Montes, when he noted tachy to 150 with blood pressure 178/116. Dr Montes called her PCP and she was sent to the ED. Pt was recently diagnosed with hyperthyroidism after a thyroid US and nuclear test and has been compliant on methimazole up till this morning. Pt noted palpitations, but no associated chest pain, no syncope. Pt has been having SOB for about a month, with RAMIREZ and orthopnea and bilateral pedal edema at baseline (since her first stent). Pt has had cough productive of whitish sputum for about a month, within which time she was admitted and treated for CHF exacerbation. No associated chills/fever, no sick contacts, no dysuria, no loose stools. In the ED, Dr Gonsales was consulted and he recommended methimazole 20mg tid and propranolol 20mg bid. Pt however received her home B isrrael in the ED. ER course was notable for: (1)CXR-LLL infiltrates (2) EKG- Sinus Tachy Vent rate 138bpm, QTc-475, Q waves in v1, v2, s wave in v3. (3)NM-137, BP-173/116, (4) TSH-<0.01 (5) Coreg 3.125 x3, Propranolol 60mg, aztreonam, levaquin- 500mg, lasix iv 20mg , methimazole 20mg Recent Travel: Denies PAST MEDICAL HISTORY: DM, hyperthyroidism (diagnosed one month ago), HTN, HLD, CHF, CKD, asthma, iron deficiency, CAD (stents x2-2012, 2015), and afib (in distant past) PAST SURGICAL HISTORY: Bilateral cataract surgery Kelloid surgery 3 c/sections Knee arthroscopy Social History: x 3 years , lives with daughter Smoking: Denies Alcohol:Denies Drugs: Denies Family History: Mother and sister of breast cancer Daughter of colon cancer Siblings with CAD/DM Allergies Penicillins Allergy (Intermediate, Verified 05/25/18 14:01) Hives Iodinated Contrast- Oral and IV Dye [Iodinated Contrast Media - IV Dye] Allergy (Verified 05/25/18 14:01) tiotropium [From Spiriva with HandiHaler] Adverse Reaction (Verified 05/25/18 14 :01) HOME MEDICATIONS: Home Medications Medication Instructions Recorded Aspirin [ASA -] 81 mg PO DAILY #1 tab 03/06/13 Ferrous Sulfate [Feosol] 325 mg PO BID #0 ud 05/08/15 Prasugrel Hydrochloride [Effient -] 10 mg PO DAILY #0 tab 05/08/15 Albuterol 0.083% Nebulizer Bibiana 1 neb NEB QID 09/14/16 [Ventolin 0.083% Nebulizer Soln -] Insulin Glargine,Hum.rec.anlog 30 units SQ HS 04/29/17 [Lantus (10mL VIAL) -] Insulin Lispro [Humalog] 100 unit SQ PRN 04/29/17 Budesonide/Formeterol Fumarate 2 inh PO BID 06/13/17 [SYMBICORT 160/4.5mcg -] clonazePAM [KlonoPIN] 0.5 mg PO QID PRN 06/13/17 Carvedilol Phosphate [Coreg Cr -] 10 mg PO DAILY #30 cap 06/23/17 Hydralazine HCl 50 mg PO TID #90 tablet 06/23/17 Albuterol 0.083% Nebulizer Bibiana 1 amp NEB Q4H #1 amp 12/20/17 [Ventolin 0.083% Nebulizer Soln -] Ezetimibe [Zetia -] 10 mg PO Q48H 30 Days #30 tablet 12/20/17 Nitroglycerin Patch [Nitro-Dur 0.2 mg TD DAILY #30 patch.td24 12/20/17 Patch -] Torsemide [Demadex -] 20 mg PO DAILY #60 tablet 12/20/17 Rosuvastatin [Crestor -] 10 mg PO HS #30 tablet 04/15/18 REVIEW OF SYSTEMS CONSTITUTIONAL: Absent: fever, chills, diaphoresis, generalized weakness, malaise, loss of appetite, weight change HEENT: Absent: rhinorrhea, nasal congestion, throat pain, throat swelling, difficulty swallowing, mouth swelling, ear pain, eye pain, visual changes CARDIOVASCULAR: Absent: chest pain, syncope, palpitations, irregular heart rate, lightheadedness , peripheral edema RESPIRATORY: Absent: cough+, shortness of breath+, dyspnea with exertion+, orthopnea+, wheezing, stridor, hemoptysis GASTROINTESTINAL: Absent: abdominal pain, abdominal distension, nausea, vomiting, diarrhea, constipation, melena, hematochezia GENITOURINARY: Absent: dysuria, frequency, urgency, hesitancy, hematuria, flank pain, genital pain MUSCULOSKELETAL: Absent: myalgia, arthralgia, joint swelling, back pain, neck pain SKIN: Absent: rash, itching, pallor HEMATOLOGIC/IMMUNOLOGIC: Absent: easy bleeding, easy bruising, lymphadenopathy, frequent infections ENDOCRINE: Absent: unexplained weight gain, unexplained weight loss, heat intolerance, cold intolerance NEUROLOGIC: Absent: headache, focal weakness or paresthesias, dizziness, unsteady gait, seizure, mental status changes, bladder or bowel incontinence PSYCHIATRIC: Absent: anxiety, depression, suicidal or homicidal ideation, hallucinations. PHYSICAL EXAMINATION Vital Signs - 24 hr 05/25/18 05/25/18 05/25/18 14:02 15:27 15:40 Temperature 97.8 F Pulse Rate 137 H Pulse Rate [ 126 H Left] Respiratory 22 Rate Blood Pressure 173/116 Blood Pressure 161/95 [Left Arm] O2 Sat by Pulse 96 100 Oximetry (%) 05/25/18 05/25/18 16:02 16:29 Temperature Pulse Rate Pulse Rate [ 117 H 111 H Left] Respiratory Rate Blood Pressure Blood Pressure 143/85 147/84 [Left Arm] O2 Sat by Pulse Oximetry (%) GENERAL: An obese female, anxious looking, awake, alert, and fully oriented, in no acute respiratory distress. Absent tremors. LUNGS: Reduced respiratory effort. Bilateral wheezes posteriorly. HEART: Tachycardic S1 and S2 without murmur, ABDOMEN: Obese, Soft, nontender, not distended, normoactive bowel sounds, LOWER EXTREMITIES: 2+ pulses bilaterally, warm, well-perfused. No calf tenderness. Bilateral peripheral edema. NEUROLOGICAL: AAOx3, no facial droop, normal tone and strength globally, normal speech. Gait not observed. PSYCHIATRIC: Cooperative. Good eye contact. Appropriate mood and affect. CBC, BMP 05/25/18 14:28 05/25/18 15:42 Laboratory Results - last 24 hr 05/25/18 05/25/18 05/25/18 14:28 14:28 15:33 WBC 5.9 RBC 4.09 Hgb 10.1 L Hct 31.1 L D MCV 76.0 L MCH 24.7 L MCHC 32.5 RDW 14.2 D Plt Count 302 MPV 8.8 Absolute Neuts (auto) 3.6 Neutrophils % 60.6 Lymphocytes % 26.1 Monocytes % 9.9 Eosinophils % 2.5 Basophils % 0.9 Nucleated RBC % 0 Sodium Cancelled Potassium Cancelled Chloride Cancelled Carbon Dioxide Cancelled Anion Gap Cancelled BUN Cancelled Creatinine Cancelled Creat Clearance w eGFR Cancelled Random Glucose Cancelled Calcium Cancelled Total Bilirubin Cancelled AST Cancelled ALT Cancelled Alkaline Phosphatase Cancelled Creatine Kinase Cancelled Troponin I Cancelled B-Natriuretic Peptide 10675.03 H Total Protein Cancelled Albumin Cancelled TSH Urine Color Urine Appearance Urine pH Ur Specific [place] Urine Protein Urine Glucose (UA) Urine Ketones Urine Blood Urine Nitrite Urine Bilirubin Urine Urobilinogen Ur Leukocyte Esterase 05/25/18 05/25/18 15:42 17:56 WBC RBC Hgb Hct MCV MCH MCHC RDW Plt Count MPV Absolute Neuts (auto) Neutrophils % Lymphocytes % Monocytes % Eosinophils % Basophils % Nucleated RBC % Sodium 141 Potassium 4.3 Chloride 105 Carbon Dioxide 25 Anion Gap 11 BUN 45 H Creatinine 2.5 H Creat Clearance w eGFR 19.45 Random Glucose 158 H Calcium 8.8 Total Bilirubin 0.4 AST 31 ALT 39 Alkaline Phosphatase 111 Creatine Kinase Troponin I B-Natriuretic Peptide Total Protein 6.9 Albumin 3.2 L TSH < 0.01 L Urine Color Ltyellow Urine Appearance Clear Urine pH 5.0 Ur Specific [place] 1.009 Urine Protein Negative Urine Glucose (UA) Negative Urine Ketones Negative Urine Blood Negative Urine Nitrite Negative Urine Bilirubin Negative Urine Urobilinogen Negative Ur Leukocyte Esterase Negative ASSESSMENT/PLAN: 63 yo F with a signif PMHx of DM, hyperthyroidism (diagnosed one month ago), HTN, diastolic CHF, CKD, asthma, and iron deficiency, CAD (stents x2-2012, 2014) , remote afib presenting for tachycardia in 150s. Thyrotoxicosis Tachycardia (SR), high blood pressure, palpitations, documented thyroid nodule and hyperthyroidism TSH-<o.o1 Free T 4 Methimizole 20mg tid Carvedilol 10mg daily Cardiac monitoring Consult- Dr Gonsales- recs appreciated Serial Free T4 EkG CHF Hx of diastolic CHF [id number] Received 20mg iv lasix in ED Cont home torsemide COPD/Asthma Bilateral wheezes, productive cough Albuterol nebs Q4H- although this can worsen tachycardia' pt has allergy to ipratropium Consult Dr Huang LL PNA Pt hreceived Levaquin in ED But with prolonged QTc- 475 Continue Levaquin - Consult Dr Huang Monitor DM Levemir 30mg HS ISS ACHS BGM ACHS Tropinemia Could be due to demand, with background CKD with likely poor excretion Trend HTN/CAD Cont Home meds- ASA, prasugrel, hydralazine, carvedilol, rosuvastatin CKD, Cr-Currently at her baseline Avoid nephrotoxic drugs Renally dose medications BMP iron deficiency, Cont home feosol Depression/ anxiety Cont Clonazepam FEN Oral fluids only Monitor lytes Sodium/Diabetic diet PPx Heparin Dispo: Tele Visit type - Emergency Visit Emergency Visit: Yes ED Registration Date: 05/25/18 Care time: The patient presented to the Emergency Department on the above date and was hospitalized for further evaluation of their emergent condition. - New Patient This patient is new to me today: Yes Date on this admission: 05/26/18 - Critical Care Critical Care patient: No Hospitalist Screening - Colonoscopy Questionnaire Colonoscopy Questionnaire: Colonoscopy Questionnaire - Patient: 50 - 75 years old and never had a screening colonoscopy: Unknown History of colon or rectal polyps, or CA: Unknown History of IBD, Crohn's disease or UC: Unknown History of abdominal radiation therapy as a child: Unknown - Relative: 1 with colon or rectal CA, or polyps at age 60 or younger: Unknown Colon or rectal CA diagnosed at age 45 or younger: Unknown Multiple relatives with colon or rectal CA: Unknown - Outcome: Screening Result: Negative Screen
--- NOTE | 2018-05-25 19:05 | CONS ---
DATE OF CONSULTATION: 05/25/2018 PULMONARY CONSULTATION REFERRING PHYSICIAN: Madhu Daniel M.D. HISTORY OF PRESENT ILLNESS: The patient is a 63-year-old black female known to me from previous hospitalization, past medical history of ASHD status post non-ST [place], history of drug-eluting stent, hypertension, chronic kidney disease, hyperlipidemia, atrial fibrillation, PSVT, mitral regurgitation, pulmonary hypertension, obstructive sleep apnea on CPAP 11, asthma, chronic venous insufficiency, diastolic CHF, chronic venous insufficiency, diastolic CHF, moderate reduced systolic function, presented to [facility] ER earlier today with complaints of generalized weakness and fatigue for approximately 1 week. She also complains of increasing shortness of breath, dyspnea on exertion, as well as palpitations. She denies any chest pain, nausea, vomiting, diaphoresis. Patient's symptoms worsened today, apparently after fasting and missing a dose of thyroid medication. She started developing increasing palpitations, shortness of breath, wheezing, nonproductive cough, she presented to the emergency room as above. In the ER, she was noted to be hypertensive and tachycardic. She has also had a chest x-ray which revealed left lower lobe opacity, possibly consistent with pneumonia versus atelectasis and/or effusion. She was placed on antibiotic therapy. The patient is a nonsmoker. She denies any history of occupational exposure to chemicals or fumes. There is no history of DVT or PE in the past. PAST MEDICAL HISTORY: Again includes hyperthyroidism, hypertension, CHF, chronic kidney disease, asthma, iron deficiency anemia, obstructive sleep apnea on CPAP , ASHD status post non-ST [place] status post stents, insulin dependent diabetes mellitus, chronic kidney disease. REVIEW OF SYSTEMS: Positive orthopnea. Positive dyspnea. Positive tachycardia. No chest pain. Positive palpitations. No nausea. No vomiting. No abdominal pain. Positive lower extremity edema. CURRENT MEDICATIONS: Include Levaquin. Medications prior to admission include aspirin, iron, Effient, albuterol, Lantus, Humalog, Symbicort, Klonopin, Coreg, hydralazine, albuterol, Nitro-Dur, Demadex, and Crestor. ALLERGIES: Include IODINE CONTRAST as well as Spiriva. PHYSICAL EXAMINATION: General: The patient is a well-developed, well-nourished female, awake, alert, dyspneic, but no acute respiratory distress. She is afebrile. Vital signs: Blood pressure is 173/116, weight is 260 pounds, O2 saturation 100 % on room air, respiratory rate 22 to 24, heart rate 137, temperature 97.8. HEENT: Head is normocephalic, atraumatic. Neck: Supple. Heart: Tachycardic. S1, S2. Chest: Bilateral diffuse expiratory wheezes. Abdomen: Soft. Bowel sounds present. Extremities: Bilateral lower extremity edema 3 to 4 plus. LABORATORY: BUN 45, creatinine 2.5, BNP is pending. WBC is 5.9, hemoglobin 10.1, hematocrit 31.1 with platelet count of 302,000. INR is 1. Chest x-ray is left lower lobe opacity. IMPRESSION: 1. Hypertensive urgency. 2. Tachycardia, possible thyrotoxicosis. 3. Acute and chronic congestive heart failure. 4. Left basilar opacity, possible pneumonia, possible atelectasis and effusion. 5. Atherosclerotic heart disease status post myocardial infarction, status post stents. 6. Chronic kidney disease. 7. Insulin dependent diabetes mellitus. 8. Obstructive sleep apnea on continuous positive airway pressure 11. PLAN: Lasix. Supplemental O2. Inhaled bronchodilators if needed. Daily weights. Weight control. Monitor, titrate blood pressure medications. Endocrinology consultation. CT scan of chest when stable. Monitor renal function. Obtain thyroid levels, T3, T4, TSH. Obtain serum BMP. SHIVA BENDER M.D. ROMARIO/[id number] MTDD
[2018-05-25] MEDS ORDERED: ALBUTEROL SO4 0.083% IH SOL 2.5 MG/3 ML VIAL.NEB. NEB ONE (19:28)
[2018-05-25] MEDS: EZETIMIBE 10 MG TABLET (FP) PO SCH (20:08)
[2018-05-25] MEDS: ALBUTEROL SO4 0.083% IH SOL 2.5 MG/3 ML VIAL.NEB. NEB SCH ×2 (20:08→22:00)
--- NOTE | 2018-05-25 21:25 | CONSULT ---
Consult Consult Specialty:: endocrine Referred by:: ED Reason for Consultation:: hyperthyroidism /thyrotoxicosis - History of Present Illness Chief Complaint: shortness of breath and weight loss History of Present Illness: 63 year old female, with a significant past medical history of hyperthyroidism, diabetes mellitus , hypertension, CHF, CKD, asthma, and iron deficiency, who presents to the emergency department with generalized weakness and fatigue for approximately 1 week. The patient reports one week of just not feeling well. She reports associated palpitations, but denies any chest pain, has not taken full dose of methimazole for side effects she incurred from it has had weight loss palpitation sweats and restlessness - Past Medical History Cardio/Vascular: Yes: AFIB, CAD, CHF, HTN, Hyperlipdemia, SD, Mitral Insufficiency, Pulmonary Hypertension Pulmonary: Yes: Sleep Apnea Renal/: Yes: Renal Failure Endocrine: Yes: Diabetes Mellitus - Past Surgical History Past Surgical History: Yes: Stent - Alcohol/Substance Use Hx Alcohol Use: No - Smoking History Smoking history: Never smoked Have you smoked in the past 12 months: No Aproximately how many cigarettes per day: 0 Home Medications - Allergies Allergies/Adverse Reactions: Allergies Allergy/AdvReac Type Severity Reaction Status Date / Time Penicillins Allergy Intermediate Hives Verified 05/25/18 14:01 Iodinated Contrast- Oral and Allergy Verified 05/25/18 14:01 IV Dye [Iodinated Contrast Media - IV Dye] tiotropium AdvReac Verified 05/25/18 14:01 [From Spiriva with HandiHaler] - Home Medications Home Medications: Ambulatory Orders Aspirin [ASA -] 81 mg PO DAILY #1 tab 03/06/13 Ferrous Sulfate [Feosol] 325 mg PO BID #0 ud 05/08/15 Prasugrel Hydrochloride [Effient -] 10 mg PO DAILY #0 tab 05/08/15 Albuterol 0.083% Nebulizer Bibiana [Ventolin 0.083% Nebulizer Soln -] 1 neb NEB QID 09/14/16 Insulin Glargine,Hum.rec.anlog [Lantus (10mL VIAL) -] 30 units SQ HS 04/29/17 Insulin Lispro [Humalog] 100 unit SQ PRN 04/29/17 Budesonide/Formeterol Fumarate [SYMBICORT 160/4.5mcg -] 2 inh PO BID 06/13/17 clonazePAM [KlonoPIN] 0.5 mg PO QID PRN 06/13/17 Carvedilol Phosphate [Coreg Cr -] 10 mg PO DAILY #30 cap 06/23/17 Hydralazine HCl 50 mg PO TID #90 tablet 06/23/17 Albuterol 0.083% Nebulizer Bibiana [Ventolin 0.083% Nebulizer Soln -] 1 amp NEB Q4H #1 amp 12/20/17 Ezetimibe [Zetia -] 10 mg PO Q48H 30 Days #30 tablet 12/20/17 Nitroglycerin Patch [Nitro-Dur Patch -] 0.2 mg TD DAILY #30 patch.td24 12/20/17 Torsemide [Demadex -] 20 mg PO DAILY #60 tablet 12/20/17 Rosuvastatin [Crestor -] 10 mg PO HS #30 tablet 04/15/18 Review of Systems - Review of Systems Constitutional: reports: Loss of Appetite Eyes: reports: Blurred Vision HENT: reports: No Symptoms Neck: reports: No Symptoms Cardiovascular: reports: Palpitations, Shortness of Breath Respiratory: reports: Exercise Intolerance, SOB on Exertion Gastrointestinal: reports: Bloating Genitourinary: reports: No Symptoms Breasts: reports: No Symptoms Reported Musculoskeletal: reports: Back Pain, Joint Swelling, Muscle Weakness Integumentary: reports: No Symptoms Neurological: reports: Numbness, Weakness Endocrine: reports: Excessive Sweating, Unexplained Weight Loss Physical Exam Vital Signs: Vital Signs Temperature 98.1 F 05/25/18 19:01 Pulse Rate 112 H 05/25/18 19:01 Respiratory Rate 18 05/25/18 19:01 Blood Pressure 140/79 05/25/18 19:01 O2 Sat by Pulse Oximetry (%) 97 05/25/18 19:01 Constitutional: Yes: Anxious Eyes: Yes: EOM Intact HENT: Yes: Normocephalic Neck: Yes: Trachea Midline, Thyromegaly Cardiovascular: Yes: Tachycardia Respiratory: Yes: SOB Gastrointestinal: Yes: Abdomen, Obese ...Rectal Exam: Yes: Deferred Renal/: Yes: WNL Musculoskeletal: Yes: Back Pain, Muscle Weakness Edema: Yes Edema: LLE: 2+, RLE: 2+ Neurological: Yes: Tremors, Weakness Labs: CBC, BMP 05/25/18 14:28 05/25/18 15:42 Assessment/Plan hyperthyroidism thyrotoxicosis diabetes mellitus type 2 ckd hypertension chf lymphedema anemia Abnormal Lab Results 05/25/18 05/25/18 05/25/18 14:00 14:28 15:33 Hgb 10.1 L Hct 31.1 L D MCV 76.0 L MCH 24.7 L BUN Creatinine Random Glucose Troponin I B-Natriuretic Peptide 09713.03 H Albumin TSH Free T4 2.13 H 05/25/18 05/25/18 15:42 20:11 Hgb Hct MCV MCH BUN 45 H Creatinine 2.5 H Random Glucose 158 H Troponin I 0.30 H B-Natriuretic Peptide Albumin 3.2 L TSH < 0.01 L Free T4 Laboratory Results - last 24 hr 05/25/18 05/25/18 05/25/18 14:00 14:28 14:28 WBC 5.9 RBC 4.09 Hgb 10.1 L Hct 31.1 L D MCV 76.0 L MCH 24.7 L MCHC 32.5 RDW 14.2 D Plt Count 302 MPV 8.8 Absolute Neuts (auto) 3.6 Neutrophils % 60.6 Lymphocytes % 26.1 Monocytes % 9.9 Eosinophils % 2.5 Basophils % 0.9 Nucleated RBC % 0 Sodium Cancelled Potassium Cancelled Chloride Cancelled Carbon Dioxide Cancelled Anion Gap Cancelled BUN Cancelled Creatinine Cancelled Creat Clearance w eGFR Cancelled Random Glucose Cancelled Calcium Cancelled Total Bilirubin Cancelled AST Cancelled ALT Cancelled Alkaline Phosphatase Cancelled Creatine Kinase Cancelled Troponin I Cancelled B-Natriuretic Peptide Total Protein Cancelled Albumin Cancelled TSH Free T4 2.13 H Urine Color Urine Appearance Urine pH Ur Specific [place] Urine Protein Urine Glucose (UA) Urine Ketones Urine Blood Urine Nitrite Urine Bilirubin Urine Urobilinogen Ur Leukocyte Esterase 05/25/18 05/25/18 05/25/18 15:33 15:42 17:56 WBC RBC Hgb Hct MCV MCH MCHC RDW Plt Count MPV Absolute Neuts (auto) Neutrophils % Lymphocytes % Monocytes % Eosinophils % Basophils % Nucleated RBC % Sodium 141 Potassium 4.3 Chloride 105 Carbon Dioxide 25 Anion Gap 11 BUN 45 H Creatinine 2.5 H Creat Clearance w eGFR 19.45 Random Glucose 158 H Calcium 8.8 Total Bilirubin 0.4 AST 31 ALT 39 Alkaline Phosphatase 111 Creatine Kinase Troponin I B-Natriuretic Peptide 75397.03 H Total Protein 6.9 Albumin 3.2 L TSH < 0.01 L Free T4 Urine Color Ltyellow Urine Appearance Clear Urine pH 5.0 Ur Specific [place] 1.009 Urine Protein Negative Urine Glucose (UA) Negative Urine Ketones Negative Urine Blood Negative Urine Nitrite Negative Urine Bilirubin Negative Urine Urobilinogen Negative Ur Leukocyte Esterase Negative 05/25/18 20:11 WBC RBC Hgb Hct MCV MCH MCHC RDW Plt Count MPV Absolute Neuts (auto) Neutrophils % Lymphocytes % Monocytes % Eosinophils % Basophils % Nucleated RBC % Sodium Potassium Chloride Carbon Dioxide Anion Gap BUN Creatinine Creat Clearance w eGFR Random Glucose Calcium Total Bilirubin AST ALT Alkaline Phosphatase Creatine Kinase Troponin I 0.30 H B-Natriuretic Peptide Total Protein Albumin TSH Free T4 Urine Color Urine Appearance Urine pH Ur Specific [place] Urine Protein Urine Glucose (UA) Urine Ketones Urine Blood Urine Nitrite Urine Bilirubin Urine Urobilinogen Ur Leukocyte Esterase plan: ptu since intolerant to methimazole propranolol 20mg tid ptu 100mg tid will arrange for i131 dose therapy as outpatient close follow up for tfts
[2018-05-25] MEDS: FERROUS SO4 325 MG TABLET (FP) PO SCH (21:47)
[2018-05-25] MEDS: clonazePAM 0.5 MG TABLET PO PRN (21:47)
[2018-05-25] MEDS: ROSUVASTATIN CA 10 MG TABLET (FP) PO SCH (21:47)
[2018-05-25] MEDS: hydrALAZINE HCL 50 MG TABLET (FP) PO SCH (21:47)
[2018-05-25] MEDS: HEPARIN NA (PORCINE) 5,000 UNITS/ML 1ML VIAL SQ SCH (21:49)
[2018-05-25] MEDS: INSULIN (LEVEMIR) 100 UNITS/ML UNITS SQ SCH (21:53)
[2018-05-25] MEDS ORDERED: METHIMAZOLE 10 MG TABLET (FP) PO SCH (22:00)
[2018-05-25] MEDS: PROPYLTHIOURACIL 50 MG TABLET (UD) PO SCH (22:07)
[2018-05-26] MEDS: HEPARIN NA (PORCINE) 5,000 UNITS/ML 1ML VIAL SQ SCH ×3 (06:02→21:41)
[2018-05-26] MEDS: PROPYLTHIOURACIL 50 MG TABLET (UD) PO SCH ×3 (06:03→21:38)
[2018-05-26] MEDS: hydrALAZINE HCL 50 MG TABLET (FP) PO SCH ×3 (06:03→21:38)
[2018-05-26] MEDS: ALBUTEROL SO4 0.083% IH SOL 2.5 MG/3 ML VIAL.NEB. NEB SCH ×2 (06:10→10:21)
[2018-05-26 06:22] LABS: BASO % 0.7 % (0-2.0); EOS % 3.5 % (0-4.5); HEMOGLOBIN 9.1 GM/dL (10.7-15.3); LYMPH % 29.4 % (8-40); MCH 24.6 pg (25.7-33.7); MCHC 32.5 g/dl (32.0-36.0); MEAN CELL VOLUME 75.7 fl (80-96); MEAN PLT VOLUME 8.6 fl (7.5-11.1); NEUT % 54.4 % (42.8-82.8); PLATELET COUNT 262 K/MM3 (134-434); RDW 13.8 % (11.6-15.6); WHITE BLOOD COUNT 7.4 K/mm3 (4.0-10.0)
[2018-05-26] MEDS: INSULIN SLIDING SCALE (NOVOLOG) 1 VIAL SQ SCH ×4 (06:46→21:46)
[2018-05-26 06:49] LABS: CHLORIDE 106 mmol/L (98-107); POTASSIUM 4.3 mmol/L (3.5-5.1); SODIUM 141 mmol/L (136-145)
[2018-05-26 06:57] LABS: ALBUMIN 2.9 g/dl (3.4-5.0); ALK PHOS 106 U/L (45-117); ANION GAP 9 (8-16); BILIRUBIN,TOTAL 0.4 mg/dL (0.2-1.0); BLOOD UREA NITROGEN 50 mg/dL (7-18); CALCIUM 8.7 mg/dL (8.5-10.1); CO2 26 mmol/L (21-32); CREATININE 2.6 mg/dL (0.55-1.02); GLUCOSE,RANDOM 74 mg/dL (74-106); MAGNESIUM 1.9 mg/dL (1.8-2.4); SGOT/AST 30 U/L (15-37); SGPT/ALT 33 U/L (12-78); TOT PROT 6.4 g/dl (6.4-8.2)
[2018-05-26] MEDS ORDERED: FUROSEMIDE 40 MG/4 ML INJECTABLE VIAL IVPUSH ONE (07:13)
--- NOTE | 2018-05-26 07:31 | PN ---
Physical Exam: SUBJECTIVE: Patient seen and examined. Feels more SOB. Is allergic to ipratropium- receiving home symbicort and albuterol. OBJECTIVE: Vital Signs Period Temp Pulse Resp BP Sys/Shankar Pulse Ox Last 24 Hr 97.8 F-98.7 F 75-137 18-22 107-173/55-116 96-100 Vital Signs Temp 98 F 05/26/18 13:55 Pulse 89 05/26/18 13:55 Resp 20 05/26/18 13:55 BP 124/62 05/26/18 13:55 Pulse Ox 97 05/25/18 21:00 Intake & Output 05/25/18 05/26/18 05/26/18 23:59 11:59 23:59 Intake Total 240 260 Balance 240 260 Weight 99.507 kg 98.611 kg Intake: IV 20 SALINE LOCK 20 Oral 240 240 Other: Voiding Method Toilet Toilet # Unmeasured Voids Void 1 2 Height 1.65 m Body Mass Index (BMI) 36.5 Weight Measurement Method Standing Scale Standing Scale Weight Measurement Method Est/Stated by Patient GENERAL: The patient is awake, alert, and fully oriented, in no acute distress. HEAD: Normal with no signs of trauma. EYES: PERRL, extraocular movements intact, sclera anicteric, conjunctiva clear. No ptosis. ENT: Ears normal, nares patent, oropharynx clear without exudates, moist mucous membranes. NECK: Trachea midline, full range of motion, supple. LUNGS: Breath sounds equal, clear to auscultation bilaterally, no wheezes, no crackles, no accessory muscle use. HEART: Regular rate and rhythm, S1, S2 without murmur, rub or gallop. ABDOMEN: Soft, nontender, nondistended, normoactive bowel sounds, no guarding, no rebound, no hepatosplenomegaly, no masses. EXTREMITIES: 2+ pulses, warm, well-perfused, no edema. NEUROLOGICAL: Cranial nerves II through XII grossly intact. Normal speech, gait not observed. PSYCH: Normal mood, normal affect. SKIN: Warm, dry, normal turgor, no rashes or lesions noted Laboratory Results - last 24 hr 05/25/18 05/25/18 05/25/18 14:00 14:28 14:28 WBC 5.9 RBC 4.09 Hgb 10.1 L Hct 31.1 L D MCV 76.0 L MCH 24.7 L MCHC 32.5 RDW 14.2 D Plt Count 302 MPV 8.8 Absolute Neuts (auto) 3.6 Neutrophils % 60.6 Lymphocytes % 26.1 Monocytes % 9.9 Eosinophils % 2.5 Basophils % 0.9 Nucleated RBC % 0 Sodium Cancelled Potassium Cancelled Chloride Cancelled Carbon Dioxide Cancelled Anion Gap Cancelled BUN Cancelled Creatinine Cancelled Creat Clearance w eGFR Cancelled POC Glucometer Random Glucose Cancelled Calcium Cancelled Phosphorus Magnesium Total Bilirubin Cancelled AST Cancelled ALT Cancelled Alkaline Phosphatase Cancelled Creatine Kinase Cancelled Troponin I Cancelled B-Natriuretic Peptide Total Protein Cancelled Albumin Cancelled TSH Free T4 2.13 H Urine Color Urine Appearance Urine pH Ur Specific [place] Urine Protein Urine Glucose (UA) Urine Ketones Urine Blood Urine Nitrite Urine Bilirubin Urine Urobilinogen Ur Leukocyte Esterase 05/25/18 05/25/18 05/25/18 15:33 15:42 17:56 WBC RBC Hgb Hct MCV MCH MCHC RDW Plt Count MPV Absolute Neuts (auto) Neutrophils % Lymphocytes % Monocytes % Eosinophils % Basophils % Nucleated RBC % Sodium 141 Potassium 4.3 Chloride 105 Carbon Dioxide 25 Anion Gap 11 BUN 45 H Creatinine 2.5 H Creat Clearance w eGFR 19.45 POC Glucometer Random Glucose 158 H Calcium 8.8 Phosphorus Magnesium Total Bilirubin 0.4 AST 31 ALT 39 Alkaline Phosphatase 111 Creatine Kinase Troponin I B-Natriuretic Peptide 93919.03 H Total Protein 6.9 Albumin 3.2 L TSH < 0.01 L Free T4 Urine Color Ltyellow Urine Appearance Clear Urine pH 5.0 Ur Specific [place] 1.009 Urine Protein Negative Urine Glucose (UA) Negative Urine Ketones Negative Urine Blood Negative Urine Nitrite Negative Urine Bilirubin Negative Urine Urobilinogen Negative Ur Leukocyte Esterase Negative 05/25/18 05/25/18 05/26/18 20:11 21:45 05:30 WBC 7.4 RBC 3.70 Hgb 9.1 L Hct 28.0 L MCV 75.7 L MCH 24.6 L MCHC 32.5 RDW 13.8 Plt Count 262 MPV 8.6 Absolute Neuts (auto) 4.0 Neutrophils % 54.4 Lymphocytes % 29.4 Monocytes % 12.0 H Eosinophils % 3.5 Basophils % 0.7 Nucleated RBC % 0 Sodium Potassium Chloride Carbon Dioxide Anion Gap BUN Creatinine Creat Clearance w eGFR POC Glucometer 222 Random Glucose Calcium Phosphorus Magnesium Total Bilirubin AST ALT Alkaline Phosphatase Creatine Kinase Troponin I 0.30 H B-Natriuretic Peptide Total Protein Albumin TSH Free T4 Urine Color Urine Appearance Urine pH Ur Specific [place] Urine Protein Urine Glucose (UA) Urine Ketones Urine Blood Urine Nitrite Urine Bilirubin Urine Urobilinogen Ur Leukocyte Esterase 05/26/18 05/26/18 05/26/18 05:30 05:30 05:30 WBC RBC Hgb Hct MCV MCH MCHC RDW Plt Count MPV Absolute Neuts (auto) Neutrophils % Lymphocytes % Monocytes % Eosinophils % Basophils % Nucleated RBC % Sodium 141 Potassium 4.3 Chloride 106 Carbon Dioxide 26 Anion Gap 9 BUN 50 H Creatinine 2.6 H Creat Clearance w eGFR 18.59 POC Glucometer Random Glucose 74 Calcium 8.7 Phosphorus 5.0 H Magnesium 1.9 Total Bilirubin 0.4 AST 30 ALT 33 Alkaline Phosphatase 106 Creatine Kinase 50 Troponin I 0.30 H B-Natriuretic Peptide Total Protein 6.4 Albumin 2.9 L TSH Free T4 2.12 H Urine Color Urine Appearance Urine pH Ur Specific [place] Urine Protein Urine Glucose (UA) Urine Ketones Urine Blood Urine Nitrite Urine Bilirubin Urine Urobilinogen Ur Leukocyte Esterase 05/26/18 06:00 WBC RBC Hgb Hct MCV MCH MCHC RDW Plt Count MPV Absolute Neuts (auto) Neutrophils % Lymphocytes % Monocytes % Eosinophils % Basophils % Nucleated RBC % Sodium Potassium Chloride Carbon Dioxide Anion Gap BUN Creatinine Creat Clearance w eGFR POC Glucometer 85 Random Glucose Calcium Phosphorus Magnesium Total Bilirubin AST ALT Alkaline Phosphatase Creatine Kinase Troponin I B-Natriuretic Peptide Total Protein Albumin TSH Free T4 Urine Color Urine Appearance Urine pH Ur Specific [place] Urine Protein Urine Glucose (UA) Urine Ketones Urine Blood Urine Nitrite Urine Bilirubin Urine Urobilinogen Ur Leukocyte Esterase Active Medications Generic Name Dose Route Start Last Admin Trade Name Freq PRN Reason Stop Dose Admin Albuterol Sulfate 1 amp 05/25/18 19:15 05/26/18 06:10 Ventolin 0.083% Nebulizer Soln - NEB 1 amp Q4HWA [facility] Administration Aspirin 81 mg 05/26/18 10:00 Asa - PO DAILY [facility] Budesonide/Formoterol Fumarate 2 puff 05/26/18 10:00 Symbicort 160/4.5mcg - IH BID [facility] Carvedilol 10 mg 05/26/18 10:00 Coreg Cr - PO DAILY [facility] Clonazepam 0.5 mg 05/25/18 19:01 05/25/18 21:47 Klonopin - PO 0.5 mg Q6H PRN Administration ANXIETY Ezetimibe 10 mg 05/25/18 19:15 05/25/18 20:08 Zetia - PO 10 mg Q48H [facility] Administration Ferrous Sulfate 325 mg 05/25/18 22:00 05/25/18 21:47 Feosol - PO 325 mg BID [facility] Administration Furosemide 40 mg 05/26/18 07:13 Lasix Injection - IVPUSH 05/26/18 07:14 ONCE ONE Heparin Sodium (Porcine) 5,000 unit 05/25/18 22:00 05/26/18 06:02 Heparin - SQ 5,000 unit TID [facility] Administration Hydralazine HCl 50 mg 05/25/18 22:00 05/26/18 06:03 Apresoline - PO 50 mg TID [facility] Administration Levofloxacin 500 mg in 100 mls @ 100 mls/hr 05/26/18 06:30 Levaquin 500 Mg Premixed Ivpb - IVPB 05/26/18 07:29 ONCE ONE Protocol Insulin Aspart 1 vial 05/26/18 07:00 05/26/18 06:46 Novolog Vial Sliding Scale - SQ Not Given ACHS [facility] Protocol Insulin Detemir 30 units 05/25/18 22:00 05/25/18 21:53 Levemir Vial SQ 30 units HS [facility] Administration Nitroglycerin 0.2 mg 05/26/18 10:00 Nitro-Dur Patch - TD DAILY [facility] Prasugrel 10 mg 05/26/18 10:00 Effient - PO DAILY [facility] Propylthiouracil 100 mg 05/25/18 22:00 05/26/18 06:03 Ptu - PO 100 mg TID [facility] Administration Rosuvastatin Calcium 10 mg 05/25/18 22:00 05/25/18 21:47 Crestor - PO 10 mg HS [facility] Administration Torsemide 20 mg 05/26/18 10:00 Demadex - PO DAILY [facility] Ambulatory Orders Aspirin [ASA -] 81 mg PO DAILY #1 tab 03/06/13 Ferrous Sulfate [Feosol] 325 mg PO BID #0 ud 05/08/15 Prasugrel Hydrochloride [Effient -] 10 mg PO DAILY #0 tab 05/08/15 Albuterol 0.083% Nebulizer Bibiana [Ventolin 0.083% Nebulizer Soln -] 1 neb NEB QID 09/14/16 Insulin Glargine,Hum.rec.anlog [Lantus (10mL VIAL) -] 30 units SQ HS 04/29/17 Insulin Lispro [Humalog] 100 unit SQ PRN 04/29/17 Budesonide/Formeterol Fumarate [SYMBICORT 160/4.5mcg -] 2 inh PO BID 06/13/17 clonazePAM [KlonoPIN] 0.5 mg PO QID PRN 06/13/17 Carvedilol Phosphate [Coreg Cr -] 10 mg PO DAILY #30 cap 06/23/17 Hydralazine HCl 50 mg PO TID #90 tablet 06/23/17 Albuterol 0.083% Nebulizer Bibiana [Ventolin 0.083% Nebulizer Soln -] 1 amp NEB Q4H #1 amp 12/20/17 Ezetimibe [Zetia -] 10 mg PO Q48H 30 Days #30 tablet 12/20/17 Nitroglycerin Patch [Nitro-Dur Patch -] 0.2 mg TD DAILY #30 patch.td24 12/20/17 Torsemide [Demadex -] 20 mg PO DAILY #60 tablet 12/20/17 Rosuvastatin [Crestor -] 10 mg PO HS #30 tablet 04/15/18 Current Medications Albuterol Sulfate (Ventolin 0.083% Nebulizer Soln -) 1 amp NEB Q4H PRN PRN Reason: SHORT OF BREATH/WHEEZING Aspirin (Asa -) 81 mg PO DAILY [facility] Last Admin: 05/26/18 09:48 Dose: 81 mg Clonazepam (Klonopin -) 0.5 mg PO Q6H PRN PRN Reason: ANXIETY Last Admin: 05/25/18 21:47 Dose: 0.5 mg Ezetimibe (Zetia -) 10 mg PO Q48H [facility] Last Admin: 05/25/18 20:08 Dose: 10 mg Ferrous Sulfate (Feosol -) 325 mg PO BID [facility] Last Admin: 05/26/18 09:48 Dose: 325 mg Furosemide (Lasix Injection -) 40 mg IVPUSH DAILY [facility] Heparin Sodium (Porcine) (Heparin -) 5,000 unit SQ TID [facility] Last Admin: 05/26/18 13:42 Dose: 5,000 unit Hydralazine HCl (Apresoline -) 50 mg PO TID [facility] Last Admin: 05/26/18 13:44 Dose: 50 mg Insulin Aspart (Novolog Vial Sliding Scale -) 1 vial SQ ACHS [facility]; Protocol Last Admin: 05/26/18 17:28 Dose: Not Given Insulin Detemir (Levemir Vial) 30 units SQ HS [facility] Last Admin: 05/25/18 21:53 Dose: 30 units Nitroglycerin (Nitro-Dur Patch -) 0.2 mg TD DAILY [facility] Last Admin: 05/26/18 11:03 Dose: Not Given Prasugrel (Effient -) 10 mg PO DAILY [facility] Last Admin: 05/26/18 12:00 Dose: 10 mg Propranolol HCl (Inderal -) 20 mg PO TID [facility] Propylthiouracil (Ptu -) 100 mg PO TID [facility] Last Admin: 05/26/18 13:42 Dose: 100 mg Rosuvastatin Calcium (Crestor -) 10 mg PO HS [facility] Last Admin: 05/25/18 21:47 Dose: 10 mg ASSESSMENT/PLAN: 63 yo F with a signif PMHx of DM, hyperthyroidism (diagnosed one month ago), HTN, diastolic CHF, CKD, asthma, and iron deficiency, CAD (stents x2-2012, 2014) , remote afib presenting for tachycardia in 150s. Thyrotoxicosis Tachycardia improving Tachycardia (SR), high blood pressure, palpitations, documented thyroid nodule and hyperthyroidism TSH-<o.o1 Free T 4 Methimizole 20mg tid changed to PTU 100 tid -per Dr Gonsales Carvedilol 10mg daily Cardiac monitoring Consult- Dr Gonsales- recs appreciated Serial daily Free T4 EkG CHF Pt appears overloaded Hx of diastolic CHF [id number] Received 20mg iv lasix in ED Hold home torsemide Cont iv lasix 40mg daily COPD/Asthma Bilateral wheezes, productive cough Albuterol nebs Q4H- although this can worsen tachycardia' pt has allergy to ipratropium Consult Dr Huang- CT chest LL PNA Clinically does not appear to be PNA Pt received Levaquin in ED But with prolonged QTc- 475 Stop Levaquin - Consult Dr Huang Monitor DM Levemir 30mg HS ISS ACHS BGM ACHS Tropinemia Could be due to demand, with background CKD with likely poor excretion Trend- plateaued HTN/CAD Cont Home meds- ASA, prasugrel, hydralazine, carvedilol, rosuvastatin CKD, Cr-Currently at her baseline Avoid nephrotoxic drugs Renally dose medications BMP iron deficiency, Cont home feosol Depression/ anxiety Cont Clonazepam FEN Oral fluids only Monitor lytes Sodium/Diabetic diet PPx Heparin Dispo: Tele Visit type - Emergency Visit Emergency Visit: Yes ED Registration Date: 05/25/18 Care time: The patient presented to the Emergency Department on the above date and was hospitalized for further evaluation of their emergent condition. - New Patient This patient is new to me today: No - Critical Care Critical Care patient: No - Discharge Referral Referred to [facility] Med P.C.: No
[2018-05-26] MEDS ORDERED: PT OWN MED DRAWER 7, Y5N ONE ×2 (09:30→12:56)
[2018-05-26] MEDS: ASPIRIN 81 MG CHEWABLE TABLETS PO SCH (09:48)
[2018-05-26] MEDS: FERROUS SO4 325 MG TABLET (FP) PO SCH ×2 (09:48→21:38)
[2018-05-26] MEDS ORDERED: TORSEMIDE 20 MG TABLET (FP) PO SCH (10:00)
[2018-05-26] MEDS: BUDESONIDE/FORMETEROL FUMARATE 160/4.5 mcg INHALER IH SCH ×2 (11:03→11:59)
[2018-05-26] MEDS: NITROGLYCERIN 0.2 MG/HOUR TD PATCH TD SCH (11:03)
[2018-05-26] MEDS: CARVEDILOL PHOSPHATE CR 10 MG CAPSULE PO SCH ×2 (11:03→11:59)
[2018-05-26] MEDS: PRASUGREL HCL 10 MG TAB PO SCH (12:00)
--- NOTE | 2018-05-26 12:49 | PN ---
Progress Note, Physician History of Present Illness: PULMONARY ALERT,FEELING BETTER,LESS DYSPNEIC - Current Medication List Current Medications: Active Medications Albuterol Sulfate (Ventolin 0.083% Nebulizer Soln -) 1 amp NEB Q4HWA [facility] Last Admin: 05/26/18 10:21 Dose: 1 amp Aspirin (Asa -) 81 mg PO DAILY [facility] Last Admin: 05/26/18 09:48 Dose: 81 mg Budesonide/Formoterol Fumarate (Symbicort 160/4.5mcg -) 2 puff IH BID [facility] Last Admin: 05/26/18 11:59 Dose: 2 puff Carvedilol (Coreg Cr -) 10 mg PO DAILY [facility] Last Admin: 05/26/18 11:59 Dose: 10 mg Clonazepam (Klonopin -) 0.5 mg PO Q6H PRN PRN Reason: ANXIETY Last Admin: 05/25/18 21:47 Dose: 0.5 mg Ezetimibe (Zetia -) 10 mg PO Q48H [facility] Last Admin: 05/25/18 20:08 Dose: 10 mg Ferrous Sulfate (Feosol -) 325 mg PO BID [facility] Last Admin: 05/26/18 09:48 Dose: 325 mg Heparin Sodium (Porcine) (Heparin -) 5,000 unit SQ TID [facility] Last Admin: 05/26/18 06:02 Dose: 5,000 unit Hydralazine HCl (Apresoline -) 50 mg PO TID [facility] Last Admin: 05/26/18 06:03 Dose: 50 mg Insulin Aspart (Novolog Vial Sliding Scale -) 1 vial SQ [facility]; Protocol Last Admin: 05/26/18 06:46 Dose: Not Given Insulin Detemir (Levemir Vial) 30 units SQ [facility] Last Admin: 05/25/18 21:53 Dose: 30 units Nitroglycerin (Nitro-Dur Patch -) 0.2 mg TD DAILY [facility] Last Admin: 05/26/18 11:03 Dose: Not Given Prasugrel (Effient -) 10 mg PO DAILY [facility] Last Admin: 05/26/18 12:00 Dose: 10 mg Propylthiouracil (Ptu -) 100 mg PO TID [facility] Last Admin: 05/26/18 06:03 Dose: 100 mg Rosuvastatin Calcium (Crestor -) 10 mg PO [facility] Last Admin: 05/25/18 21:47 Dose: 10 mg Torsemide (Demadex -) 20 mg PO DAILY [facility] Last Admin: 05/26/18 09:48 Dose: 20 mg - Objective Vital Signs: Vital Signs Temperature 97.7 F 05/26/18 11:25 Pulse Rate 123 H 05/26/18 11:25 Respiratory Rate 20 05/26/18 11:25 Blood Pressure 145/79 05/26/18 11:25 O2 Sat by Pulse Oximetry (%) 97 05/25/18 21:00 Constitutional: Yes: Well Nourished, Calm Eyes: Yes: WNL HENT: Yes: WNL Neck: Yes: WNL Cardiovascular: Yes: Tachycardia, S1, S2 Respiratory: Yes: Wheezes (FEW SCATTERED WHEEZES) Gastrointestinal: Yes: Normal Bowel Sounds, Soft Extremities: Yes: WNL Edema: Yes Labs: CBC, BMP 05/26/18 05:30 05/26/18 05:30 Laboratory Tests 05/25/18 15:33 B-Natriuretic Peptide 29289.03 H Problem List - Problems (1) Acute on chronic heart failure Code(s): I50.9 - HEART FAILURE, UNSPECIFIED (2) CAD (coronary artery disease) Code(s): I25.10 - ATHSCL HEART DISEASE OF [place] CORONARY ARTERY W/O ANG PCTRS (3) CKD (chronic kidney disease) Code(s): N18.9 - CHRONIC KIDNEY DISEASE, UNSPECIFIED (4) KATINA (obstructive sleep apnea) Code(s): G47.33 - OBSTRUCTIVE SLEEP APNEA (ADULT) (PEDIATRIC) (5) ASHD (arteriosclerotic heart disease) Code(s): I25.10 - ATHSCL HEART DISEASE OF [place] CORONARY ARTERY W/O ANG PCTRS (6) CHF (congestive heart failure) Code(s): I50.9 - HEART FAILURE, UNSPECIFIED Qualifiers: Heart failure type: unspecified Heart failure chronicity: acute on chronic Qualified Code(s): I50.9 - Heart failure, unspecified (7) HLD (hyperlipidemia) Code(s): E78.5 - HYPERLIPIDEMIA, UNSPECIFIED (8) HTN (hypertension) Code(s): I10 - ESSENTIAL (PRIMARY) HYPERTENSION (9) IDDM (insulin dependent diabetes mellitus) Code(s): E11.9 - TYPE 2 DIABETES MELLITUS WITHOUT COMPLICATIONS; Z79.4 - LOSS PREVENTION RESEARCH ENGINEER (CURRENT) USE OF INSULIN (10) Sleep apnea, obstructive Code(s): G47.33 - OBSTRUCTIVE SLEEP APNEA (ADULT) (PEDIATRIC) (11) Hypertensive urgency Code(s): I16.0 - HYPERTENSIVE URGENCY (12) Hyperthyroidism Code(s): E05.90 - THYROTOXICOSIS, UNSP WITHOUT THYROTOXIC CRISIS OR STORM (13) Pneumonia Code(s): J18.9 - PNEUMONIA, UNSPECIFIED ORGANISM (14) Thyrotoxicosis Code(s): E05.90 - THYROTOXICOSIS, UNSP WITHOUT THYROTOXIC CRISIS OR STORM Assessment/Plan IMP DYSPNEA ?CHF ?FLASH PULMONARY EDEMA FROM TACHYCARDIA LEFT BASILAR OPACITY ? PNEUMONIA,?EFFUSION/ATELECTASIS HYPERTENSIVE URGENCY TACHYCARDIA HYPERTHYROIDISM CKD PULMONARY HTN DM OSAS ON CPAP [id number] ASHD S/P NSTEMI,S/P STENTS ASTHMA CHRONIC VENOUS INSUFFICIENCY PLAN O2 LASIX PRN INHALED BRONCHODILATORS TITRATE BP MEDS RATE CONTROL BETA-BLOCKERS CHEST CT CPAP AT [employer] ASSISTANT LYTES,RENAL FUNCTION ECHO F/U CHEST X-RAYS DR BENDER Problem List - Problems (1) Acute on chronic heart failure Code(s): I50.9 - HEART FAILURE, UNSPECIFIED (2) CAD (coronary artery disease) Code(s): I25.10 - ATHSCL HEART DISEASE OF [place] CORONARY ARTERY W/O ANG PCTRS (3) CKD (chronic kidney disease) Code(s): N18.9 - CHRONIC KIDNEY DISEASE, UNSPECIFIED (4) KATINA (obstructive sleep apnea) Code(s): G47.33 - OBSTRUCTIVE SLEEP APNEA (ADULT) (PEDIATRIC) (5) ASHD (arteriosclerotic heart disease) Code(s): I25.10 - ATHSCL HEART DISEASE OF [place] CORONARY ARTERY W/O ANG PCTRS (6) CHF (congestive heart failure) Code(s): I50.9 - HEART FAILURE, UNSPECIFIED Qualifiers: Heart failure type: unspecified Heart failure chronicity: acute on chronic Qualified Code(s): I50.9 - Heart failure, unspecified (7) HLD (hyperlipidemia) Code(s): E78.5 - HYPERLIPIDEMIA, UNSPECIFIED (8) HTN (hypertension) Code(s): I10 - ESSENTIAL (PRIMARY) HYPERTENSION (9) IDDM (insulin dependent diabetes mellitus) Code(s): E11.9 - TYPE 2 DIABETES MELLITUS WITHOUT COMPLICATIONS; Z79.4 - LOSS PREVENTION RESEARCH ENGINEER (CURRENT) USE OF INSULIN (10) Sleep apnea, obstructive Code(s): G47.33 - OBSTRUCTIVE SLEEP APNEA (ADULT) (PEDIATRIC) (11) Hypertensive urgency Code(s): I16.0 - HYPERTENSIVE URGENCY (12) Hyperthyroidism Code(s): E05.90 - THYROTOXICOSIS, UNSP WITHOUT THYROTOXIC CRISIS OR STORM (13) Pneumonia Code(s): J18.9 - PNEUMONIA, UNSPECIFIED ORGANISM (14) Thyrotoxicosis Code(s): E05.90 - THYROTOXICOSIS, UNSP WITHOUT THYROTOXIC CRISIS OR STORM
--- NOTE | 2018-05-26 16:21 | EKG ---
Test Reason : Blood Pressure : / mmHG Vent. Rate : 138 BPM Atrial Rate : 138 BPM P-R Int : 150 ms QRS Dur : 088 ms QT Int : 314 ms P-R-T Axes : 030 009 165 degrees QTc Int : 475 ms SINUS TACHYCARDIA POSSIBLE LEFT ATRIAL ENLARGEMENT CANNOT RULE OUT ANTERIOR INFARCT , AGE UNDETERMINED T WAVE ABNORMALITY, CONSIDER INFEROLATERAL ISCHEMIA ABNORMAL ECG WHEN COMPARED WITH ECG OF 13-APR-2018 19:19, INVERTED T WAVES HAVE REPLACED NONSPECIFIC T WAVE ABNORMALITY IN LATERAL LEADS Confirmed by AMY ALAS MD ([id number]) on 05/26/2018 4:20:49 PM Referred By: Confirmed By:AMY ALAS MD
--- NOTE | 2018-05-26 17:39 | PN ---
Teaching Attending Note Name of Resident: Carey Gamboa ATTENDING PHYSICIAN STATEMENT I saw and evaluated the patient. I reviewed the resident's note and discussed the case with the resident. I agree with the resident's findings and plan as documented. SUBJECTIVE:intermittent palpitations. denies Cp, SOB, fever, chills, N/V/C/D OBJECTIVE: Last Vital Signs Temp Pulse Resp BP Pulse Ox 98 F 89 20 124/62 97 05/26/18 13:55 05/26/18 13:55 05/26/18 13:55 05/26/18 13:55 05/25/18 21:00 Intake & Output 05/23/18 05/24/18 05/25/18 05/26/18 23:59 23:59 23:59 23:59 Intake Total 240 260 Balance 240 260 Weight 219 lb 6 oz 217 lb 6.4 oz General NAD CV S1 S2 regular tachycardic Lungs decreased breath sounds L base. poor inspiratory effort Abdomen soft NT/ND obese Extremities 1+ pitting edema with non pitting edema ASSESSMENT AND PLAN: 62-year-old woman with a history of chronic diastolic heart failure, type 2 DM, HTN, hyperlipidemia, CAD, CABG, asthma, KATINA, anxiety, pulm HTN, PAF who presented to the ER with palpitations and found to be acute thyrotoxicosis 1. acute thyrotoxicosis- elevated FT4. methimazole switched to PTU. remains tachycardic. start propanolol. d/c coreg. endocrine consulted. plan for radioactive iodine as outpatient. 2. LLL atelectasis vs infiltrate- low clinical suspicion for PNA as afebrile and leukocytosis. holding abx at this time. 3. HTN- controlled. cont current regimen. 4. acute on chronic diastolic CHF- pt appears volume overloaded. on lasix 40mg IV. cont for now. strict I&O. daily weights. 5. anemia of chronic disease- Hgb at baseline. no indication for transfusion. recent iron studies noted. 6. DM- continue home medications. iss,bgm, diabetic diet 7. CAD s/p 2 stents- on prasugrel. cont medication 8. PAF- been in sinus rhythm. sinus noted on monitor and EKG.not on anticoagulation. continuous cardiac monitoring 9. CKD- at baseline 10. COPD- no wheezing at this time. hold steroids.cont inhalers. pulmonary consulted 11. DVT ppx- hep sq
[2018-05-26] MEDS: ALBUTEROL SO4 0.083% IH SOL 2.5 MG/3 ML VIAL.NEB. NEB PRN (20:20)
[2018-05-26] MEDS ORDERED: INSULIN (NOVOLOG) ASPART 100 UNITS/ML 10ML VIAL ONE (21:23)
[2018-05-26] MEDS: INSULIN (LEVEMIR) 100 UNITS/ML UNITS SQ SCH (21:38)
[2018-05-26] MEDS: ROSUVASTATIN CA 10 MG TABLET (FP) PO SCH (21:38)
--- NOTE | 2018-05-27 00:47 | PN ---
Progress Note, Physician Chief Complaint: comfortable tolerating medication ptu History of Present Illness: hyperthyroidism,chf,htn,copd,continues with symptomatic evidence hyperthyroidism - Current Medication List Current Medications: Active Medications Albuterol Sulfate (Ventolin 0.083% Nebulizer Soln -) 1 amp NEB Q4H PRN PRN Reason: SHORT OF BREATH/WHEEZING Last Admin: 05/26/18 20:20 Dose: 1 amp Aspirin (Asa -) 81 mg PO DAILY [facility] Last Admin: 05/26/18 09:48 Dose: 81 mg Clonazepam (Klonopin -) 0.5 mg PO Q6H PRN PRN Reason: ANXIETY Last Admin: 05/25/18 21:47 Dose: 0.5 mg Ezetimibe (Zetia -) 10 mg PO Q48H [facility] Last Admin: 05/25/18 20:08 Dose: 10 mg Ferrous Sulfate (Feosol -) 325 mg PO BID [facility] Last Admin: 05/26/18 21:38 Dose: 325 mg Furosemide (Lasix Injection -) 40 mg IVPUSH DAILY [facility] Heparin Sodium (Porcine) (Heparin -) 5,000 unit SQ TID [facility] Last Admin: 05/26/18 21:41 Dose: 5,000 unit Hydralazine HCl (Apresoline -) 50 mg PO TID [facility] Last Admin: 05/26/18 21:38 Dose: 50 mg Insulin Aspart (Novolog Vial Sliding Scale -) 1 vial SQ [facility]; Protocol Last Admin: 05/26/18 21:46 Dose: Not Given Insulin Detemir (Levemir Vial) 30 units SQ [facility] Last Admin: 05/26/18 21:38 Dose: 15 units Nitroglycerin (Nitro-Dur Patch -) 0.2 mg TD DAILY [facility] Last Admin: 05/26/18 11:03 Dose: Not Given Prasugrel (Effient -) 10 mg PO DAILY [facility] Last Admin: 05/26/18 12:00 Dose: 10 mg Propranolol HCl (Inderal -) 20 mg PO TID [facility] Last Admin: 05/26/18 21:38 Dose: Not Given Propylthiouracil (Ptu -) 100 mg PO TID [facility] Last Admin: 05/26/18 21:38 Dose: 100 mg Rosuvastatin Calcium (Crestor -) 10 mg PO [facility] Last Admin: 05/26/18 21:38 Dose: 10 mg - Objective Vital Signs: Vital Signs Temperature 98.0 F 05/26/18 17:00 Pulse Rate 120 H 05/26/18 17:00 Respiratory Rate 18 05/26/18 17:00 Blood Pressure 139/62 05/26/18 17:00 O2 Sat by Pulse Oximetry (%) 98 05/26/18 23:31 Constitutional: Yes: Well Nourished, No Distress Eyes: Yes: EOM Intact HENT: Yes: Normocephalic Neck: Yes: Trachea Midline Cardiovascular: Yes: Tachycardia Respiratory: Yes: CTA Bilaterally Gastrointestinal: Yes: Normal Bowel Sounds ...Rectal Exam: Yes: Deferred Musculoskeletal: Yes: WNL Extremities: Yes: WNL Edema: LLE: 1+, RLE: 1+ Neurological: Yes: Alert, Oriented Labs: CBC, BMP 05/26/18 05:30 05/26/18 05:30 Problem List - Problems (1) Hyperthyroidism Code(s): E05.90 - THYROTOXICOSIS, UNSP WITHOUT THYROTOXIC CRISIS OR STORM (2) Pneumonia Code(s): J18.9 - PNEUMONIA, UNSPECIFIED ORGANISM (3) Acute exacerbation of asthma with allergic rhinitis Code(s): J45.901 - UNSPECIFIED ASTHMA WITH (ACUTE) EXACERBATION (4) Acute on chronic heart failure Code(s): I50.9 - HEART FAILURE, UNSPECIFIED Assessment/Plan Current Active Problems Hypertensive urgency (Acute) Hyperthyroidism (Acute) Pneumonia (Acute) Thyrotoxicosis (Acute) Abnormal Lab Results 05/26/18 05/26/18 05/26/18 05:30 05:30 05:30 Hgb 9.1 L Hct 28.0 L MCV 75.7 L MCH 24.6 L Monocytes % 12.0 H BUN 50 H Creatinine 2.6 H Phosphorus 5.0 H Troponin I Albumin 2.9 L Free T4 2.12 H 05/26/18 05:30 Hgb Hct MCV MCH Monocytes % BUN Creatinine Phosphorus Troponin I 0.30 H Albumin Free T4 plan: intolerant to tapazole ptu 100mg tid monitor tfts and close monitor liver fxn
[2018-05-27] MEDS: hydrALAZINE HCL 50 MG TABLET (FP) PO SCH ×3 (05:41→22:59)
[2018-05-27] MEDS: HEPARIN NA (PORCINE) 5,000 UNITS/ML 1ML VIAL SQ SCH ×3 (05:41→23:01)
[2018-05-27] MEDS: PROPYLTHIOURACIL 50 MG TABLET (UD) PO SCH ×3 (05:42→23:00)
[2018-05-27 06:50] LABS: ANION GAP 10 (8-16); BLOOD UREA NITROGEN 56 mg/dL (7-18); CALCIUM 8.4 mg/dL (8.5-10.1); CHLORIDE 104 mmol/L (98-107); CO2 26 mmol/L (21-32); GLUCOSE,RANDOM 149 mg/dL (74-106); MAGNESIUM 1.8 mg/dL (1.8-2.4); POTASSIUM 4.4 mmol/L (3.5-5.1); SGOT/AST 26 U/L (15-37); SODIUM 140 mmol/L (136-145)
[2018-05-27 06:53] LABS: ALK PHOS 102 U/L (45-117); BILIRUBIN,TOTAL 0.3 mg/dL (0.2-1.0); SGPT/ALT 30 U/L (12-78); TOT PROT 6.4 g/dl (6.4-8.2)
[2018-05-27] MEDS: INSULIN SLIDING SCALE (NOVOLOG) 1 VIAL SQ SCH ×4 (06:54→22:59)
[2018-05-27 07:05] LABS: BASO % 0.8 % (0-2.0); EOS % 5.7 % (0-4.5); HEMATOCRIT 28.3 % (32.4-45.2); HEMOGLOBIN 9.2 GM/dL (10.7-15.3); LYMPH % 30.9 % (8-40); MCH 24.8 pg (25.7-33.7); MCHC 32.4 g/dl (32.0-36.0); MEAN CELL VOLUME 76.6 fl (80-96); MEAN PLT VOLUME 8.7 fl (7.5-11.1); MONO % 13.1 % (3.8-10.2); NEUT % 49.5 % (42.8-82.8); PLATELET COUNT 238 K/MM3 (134-434); RDW 13.6 % (11.6-15.6); WHITE BLOOD COUNT 5.9 K/mm3 (4.0-10.0)
--- NOTE | 2018-05-27 07:17 | PN ---
Physical Exam: SUBJECTIVE: Patient seen and examined. Still SOB and has noted tachycardia on the monitor after she ambulates. No fevers. OBJECTIVE: Vital Signs Period Temp Pulse Resp BP Sys/Shankar Pulse Ox Last 24 Hr 97.7 F-98.2 F 77-123 18-20 114-155/59-86 98-99 Vital Signs Temp 98.2 F 05/27/18 06:00 Pulse 81 05/27/18 06:00 Resp 19 05/27/18 06:00 BP 133/66 05/27/18 06:00 Pulse Ox 98 05/27/18 02:40 Intake & Output 05/26/18 05/26/18 05/27/18 11:59 23:59 11:59 Intake Total 260 480 Balance 260 480 Weight 98.611 kg Intake: IV 20 SALINE LOCK 20 Oral 240 480 Other: Voiding Method Toilet Toilet Toilet # Unmeasured Voids Void 2 2 Weight Measurement Method Standing Scale Intake & Output 05/24/18 05/25/18 05/26/18 05/27/18 23:59 23:59 23:59 23:59 Intake Total 240 740 Balance 240 740 Weight 99.507 kg 98.611 kg GENERAL: The patient is awake, alert, and fully oriented, on room air LUNGS: No wheezes, reduced BS lung bases, rhonchi more on R HEART: Regular rate and rhythm, S1, S2 without murmur, rub or gallop. ABDOMEN: Obese EXTREMITIES: Bilateral pitting edema up to mid hyman NEUROLOGICAL: AAOx3, no lateralizing signs, normal gait Laboratory Results - last 24 hr 05/25/18 05/26/18 05/26/18 15:42 05:30 05:30 Sodium Potassium Chloride Carbon Dioxide Anion Gap BUN Creatinine Creat Clearance w eGFR POC Glucometer Random Glucose Calcium Phosphorus Magnesium Total Bilirubin AST ALT Alkaline Phosphatase Creatine Kinase 50 Troponin I 0.30 H Total Protein Albumin Free T4 Beattie 2.36 H Free T4 2.12 H Free T3 4.7 H 05/26/18 05/26/18 05/27/18 17:27 21:33 05:30 Sodium 140 Potassium 4.4 Chloride 104 Carbon Dioxide 26 Anion Gap 10 BUN 56 H Creatinine 3.0 H Creat Clearance w eGFR 15.76 POC Glucometer 167 130 Random Glucose 149 H Calcium 8.4 L Phosphorus 6.0 H Magnesium 1.8 Total Bilirubin 0.3 AST 26 ALT 30 Alkaline Phosphatase 102 Creatine Kinase Troponin I Total Protein 6.4 Albumin 3.0 L Free T4 Beattie Free T4 Free T3 05/27/18 05:39 Sodium Potassium Chloride Carbon Dioxide Anion Gap BUN Creatinine Creat Clearance w eGFR POC Glucometer 163 Random Glucose Calcium Phosphorus Magnesium Total Bilirubin AST ALT Alkaline Phosphatase Creatine Kinase Troponin I Total Protein Albumin Free T4 Free T4 Free T3 Active Medications Generic Name Dose Route Start Last Admin Trade Name Freq PRN Reason Stop Dose Admin Albuterol Sulfate 1 amp 05/26/18 12:51 05/26/18 20:20 Ventolin 0.083% Nebulizer Soln - NEB 1 amp Q4H PRN Administration SHORT OF BREATH/WHEEZING Aspirin 81 mg 05/26/18 10:00 05/26/18 09:48 Asa - PO 81 mg DAILY [facility]ALO Administration Clonazepam 0.5 mg 05/25/18 19:01 05/25/18 21:47 Klonopin - PO 0.5 mg Q6H PRN Administration ANXIETY Ezetimibe 10 mg 05/25/18 19:15 05/25/18 20:08 Zetia - PO 10 mg Q48H [facility]ALO Administration Ferrous Sulfate 325 mg 05/25/18 22:00 05/26/18 21:38 Feosol - PO 325 mg BID [facility] Administration Furosemide 40 mg 05/27/18 10:00 Lasix Injection - IVPUSH DAILY [facility] Heparin Sodium (Porcine) 5,000 unit 05/25/18 22:00 05/27/18 05:41 Heparin - SQ 5,000 unit TID [facility] Administration Hydralazine HCl 50 mg 05/25/18 22:00 05/27/18 05:41 Apresoline - PO 50 mg TID [facility] Administration Insulin Aspart 1 vial 05/26/18 07:00 05/27/18 06:54 Novolog Vial Sliding Scale - SQ 2 units ACHS [facility] Administration Protocol Insulin Detemir 30 units 05/25/18 22:00 05/26/18 21:38 Levemir Vial SQ 15 units HS [facility] Administration Nitroglycerin 0.2 mg 05/26/18 10:00 05/26/18 11:03 Nitro-Dur Patch - TD Not Given DAILY [facility] Prasugrel 10 mg 05/26/18 10:00 05/26/18 12:00 Effient - PO 10 mg DAILY [facility] Administration Propranolol HCl 20 mg 05/26/18 22:00 05/27/18 05:42 Inderal - PO Not Given TID [facility] Propylthiouracil 100 mg 05/25/18 22:00 05/27/18 05:42 Ptu - PO 100 mg TID [facility] Administration Rosuvastatin Calcium 10 mg 05/25/18 22:00 05/26/18 21:38 Crestor - PO 10 mg HS [facility] Administration Current Medications Acetaminophen (Tylenol Oral Solution -) 650 mg PO Q6H PRN PRN Reason: PAIN Last Admin: 05/27/18 17:36 Dose: 650 mg Albuterol Sulfate (Ventolin 0.083% Nebulizer Soln -) 1 amp NEB Q4H PRN PRN Reason: SHORT OF BREATH/WHEEZING Last Admin: 05/26/18 20:20 Dose: 1 amp Aspirin (Asa -) 81 mg PO DAILY [facility] Last Admin: 05/27/18 09:32 Dose: 81 mg Atenolol (Tenormin -) 25 mg PO DAILY [facility] Last Admin: 05/27/18 13:59 Dose: 25 mg Clonazepam (Klonopin -) 0.5 mg PO Q6H PRN PRN Reason: ANXIETY Last Admin: 05/27/18 09:35 Dose: 0.5 mg Ezetimibe (Zetia -) 10 mg PO Q48H [facility] Last Admin: 05/25/18 20:08 Dose: 10 mg Ferrous Sulfate (Feosol -) 325 mg PO BID [facility] Last Admin: 05/27/18 09:32 Dose: 325 mg Heparin Sodium (Porcine) (Heparin -) 5,000 unit SQ TID [facility] Last Admin: 05/27/18 13:40 Dose: Not Given Hydralazine HCl (Apresoline -) 50 mg PO TID [facility] Last Admin: 05/27/18 13:37 Dose: 50 mg Insulin Aspart (Novolog Vial Sliding Scale -) 1 vial SQ ACHS [facility]; Protocol Last Admin: 05/27/18 17:06 Dose: Not Given Insulin Detemir (Levemir Vial) 30 units SQ HS [facility] Last Admin: 05/26/18 21:38 Dose: 15 units Nitroglycerin (Nitro-Dur Patch -) 0.2 mg TD DAILY [facility] Last Admin: 05/27/18 09:32 Dose: 0.2 mg Prasugrel (Effient -) 10 mg PO DAILY [facility] Last Admin: 05/27/18 09:33 Dose: 10 mg Propylthiouracil (Ptu -) 100 mg PO TID [facility] Last Admin: 05/27/18 13:41 Dose: 100 mg Rosuvastatin Calcium (Crestor -) 10 mg PO HS [facility] Last Admin: 05/26/18 21:38 Dose: 10 mg Ambulatory Orders Aspirin [ASA -] 81 mg PO DAILY #1 tab 03/06/13 Ferrous Sulfate [Feosol] 325 mg PO BID #0 ud 05/08/15 Prasugrel Hydrochloride [Effient -] 10 mg PO DAILY #0 tab 05/08/15 Albuterol 0.083% Nebulizer Bibiana [Ventolin 0.083% Nebulizer Soln -] 1 neb NEB QID 09/14/16 Insulin Glargine,Hum.rec.anlog [Lantus (10mL VIAL) -] 30 units SQ HS 04/29/17 Insulin Lispro [Humalog] 100 unit SQ PRN 04/29/17 Budesonide/Formeterol Fumarate [SYMBICORT 160/4.5mcg -] 2 inh PO BID 06/13/17 clonazePAM [KlonoPIN] 0.5 mg PO QID PRN 06/13/17 Carvedilol Phosphate [Coreg Cr -] 10 mg PO DAILY #30 cap 06/23/17 Hydralazine HCl 50 mg PO TID #90 tablet 06/23/17 Albuterol 0.083% Nebulizer Bibiana [Ventolin 0.083% Nebulizer Soln -] 1 amp NEB Q4H #1 amp 12/20/17 Ezetimibe [Zetia -] 10 mg PO Q48H 30 Days #30 tablet 12/20/17 Nitroglycerin Patch [Nitro-Dur Patch -] 0.2 mg TD DAILY #30 patch.td24 12/20/17 Torsemide [Demadex -] 20 mg PO DAILY #60 tablet 12/20/17 Rosuvastatin [Crestor -] 10 mg PO HS #30 tablet 04/15/18 Brimonidine Tartrate [Alphagan P 0.1% -] 3 drop OU Q8H 05/27/18 Latanoprost 0.005% Eye Drops [Xalatan 0.005% Eye Drops -] 1 drop OU DAILY Methimazole [Tapazole -] 5 mg PO Q8H 05/27/18 Pantoprazole Sodium [Protonix -] 40 mg PO DAILY 05/27/18 Spironolactone 12.5 mg PO DAILY 05/27/18 CT chest- 05/27/18: 1. Bilateral lower lobe atelectasis and small pleural effusions. There is no evidence of pneumonia or acute pathology within the chest. 2. Prominent thyroid gland. 2. Mild mediastinal lymphadenopathy. 4. Cardiomegaly. 5. Extensive right-sided hydronephrosis with cortical thinning. Clinical correlation and follow-up recommended. ASSESSMENT/PLAN: 63 yo F with a signif PMHx of DM, hyperthyroidism (diagnosed one month ago), HTN, diastolic CHF, CKD, asthma, and iron deficiency, CAD (stents x2-2012, 2014) , remote afib presenting for tachycardia in 150s. Thyrotoxicosis Tachycardia after ambulating up to the 120s Desai wartofsky Point scale-35 points (suggests impending thyroid storm)- Tachycardia (SR), high blood pressure, palpitations, documented thyroid nodule and hyperthyroidism TSH-<0.01 Free T 4- Discuss with Dr Dru hastings for measuring/trending free T4 Methimizole (AE-nausea and vomiting)20mg tid changed to PTU 100 tid -per Dr Gonsales Carvedilol changed to propranolol yesterday but pt complains of headache with propranolol so changed to atenolol 25mg daily Cardiac monitoring Consult- Dr Gonsales- recs appreciated Serial daily Free T4 EkG Avoid ASA- displaces T4 from TBG Titrate B blockers carefully CHF Pt appears overloaded Hx of diastolic CHF [id number] Received 20mg iv lasix in ED Hold home torsemide Cont iv lasix 40mg daily TEDS COPD/Asthma Wheezes improved Albuterol nebs Q4H- although this can worsen tachycardia' pt has allergy to ipratropium Consult Dr Huang- CT chest LL PNA Clinically does not appear to be PNA Pt received Levaquin in ED But with prolonged QTc- 475 Stop Levaquin - Consult Dr Huang- CT chest (No evidence of PNA) Monitor R sided hydronephrosis May account for fx of CKD Extensive R sided hydronephrosis- seen on CT chest Bladder/renal US Bladder scan for retention DM Levemir 30mg HS ISS ACHS BGM ACHS Tropinemia Could be due to demand, with background CKD with likely poor excretion Trend- plateaued HTN/CAD Cont Home meds- ASA, prasugrel, hydralazine, carvedilol, rosuvastatin CKD, Cr-Currently at her baseline Avoid nephrotoxic drugs Renally dose medications BMP iron deficiency, Cont home feosol Depression/ anxiety Cont Clonazepam FEN Oral fluids only Monitor lytes Sodium/Diabetic diet PPx Heparin Dispo: Tele Visit type - Emergency Visit Emergency Visit: Yes ED Registration Date: 05/25/18 Care time: The patient presented to the Emergency Department on the above date and was hospitalized for further evaluation of their emergent condition. - New Patient This patient is new to me today: No - Critical Care Critical Care patient: No - Discharge Referral Referred to [facility] Med P.C.: No
[2018-05-27] MEDS ORDERED: PT OWN MED DRAWER 7, Y5N ONE (09:27)
[2018-05-27] MEDS: ASPIRIN 81 MG CHEWABLE TABLETS PO SCH (09:32)
[2018-05-27] MEDS: NITROGLYCERIN 0.2 MG/HOUR TD PATCH TD SCH (09:32)
[2018-05-27] MEDS: FERROUS SO4 325 MG TABLET (FP) PO SCH ×2 (09:32→22:59)
[2018-05-27] MEDS: PRASUGREL HCL 10 MG TAB PO SCH (09:33)
[2018-05-27] MEDS: clonazePAM 0.5 MG TABLET PO PRN ×2 (09:35→23:08)
[2018-05-27] MEDS ORDERED: FUROSEMIDE 40 MG/4 ML INJECTABLE VIAL IVPUSH SCH (10:00)
--- NOTE | 2018-05-27 11:14 | PN ---
Progress Note, Physician History of Present Illness: pulmonary alert,still dyspneic when laying down,tachycardic - Current Medication List Current Medications: Active Medications Albuterol Sulfate (Ventolin 0.083% Nebulizer Soln -) 1 amp NEB Q4H PRN PRN Reason: SHORT OF BREATH/WHEEZING Last Admin: 05/26/18 20:20 Dose: 1 amp Aspirin (Asa -) 81 mg PO DAILY [facility] Last Admin: 05/27/18 09:32 Dose: 81 mg Clonazepam (Klonopin -) 0.5 mg PO Q6H PRN PRN Reason: ANXIETY Last Admin: 05/27/18 09:35 Dose: 0.5 mg Ezetimibe (Zetia -) 10 mg PO Q48H [facility] Last Admin: 05/25/18 20:08 Dose: 10 mg Ferrous Sulfate (Feosol -) 325 mg PO BID [facility] Last Admin: 05/27/18 09:32 Dose: 325 mg Furosemide (Lasix Injection -) 40 mg IVPUSH DAILY [facility] Last Admin: 05/27/18 09:32 Dose: 40 mg Heparin Sodium (Porcine) (Heparin -) 5,000 unit SQ TID [facility] Last Admin: 05/27/18 05:41 Dose: 5,000 unit Hydralazine HCl (Apresoline -) 50 mg PO TID [facility] Last Admin: 05/27/18 05:41 Dose: 50 mg Insulin Aspart (Novolog Vial Sliding Scale -) 1 vial SQ [facility]; Protocol Last Admin: 05/27/18 06:54 Dose: 2 units Insulin Detemir (Levemir Vial) 30 units SQ [facility] Last Admin: 05/26/18 21:38 Dose: 15 units Nitroglycerin (Nitro-Dur Patch -) 0.2 mg TD DAILY [facility] Last Admin: 05/27/18 09:32 Dose: 0.2 mg Prasugrel (Effient -) 10 mg PO DAILY [facility] Last Admin: 05/27/18 09:33 Dose: 10 mg Propranolol HCl (Inderal -) 20 mg PO TID [facility] Last Admin: 05/27/18 05:42 Dose: Not Given Propylthiouracil (Ptu -) 100 mg PO TID [facility] Last Admin: 05/27/18 05:42 Dose: 100 mg Rosuvastatin Calcium (Crestor -) 10 mg PO [facility] Last Admin: 05/26/18 21:38 Dose: 10 mg - Objective Vital Signs: Vital Signs Temperature 98.0 F 05/27/18 09:19 Pulse Rate 119 H 05/27/18 09:19 Respiratory Rate 20 05/27/18 09:19 Blood Pressure 165/100 05/27/18 09:19 O2 Sat by Pulse Oximetry (%) 98 05/27/18 09:00 Constitutional: Yes: Well Nourished, Calm Eyes: Yes: WNL HENT: Yes: WNL Neck: Yes: WNL Cardiovascular: Yes: Tachycardia, S1, S2 Respiratory: Yes: Diminished, Rales (bibsasilar rales) Gastrointestinal: Yes: Normal Bowel Sounds, Soft Extremities: Yes: WNL Edema: Yes Labs: CBC, BMP 05/27/18 05:30 05/27/18 05:30 - ....Imaging Cat Scan: Report Reviewed, Image Reviewed (small bilateral pleural effisions,- infiltrates,extensive hydronephrosis r kidney) Problem List - Problems (1) Acute on chronic heart failure Code(s): I50.9 - HEART FAILURE, UNSPECIFIED (2) CAD (coronary artery disease) Code(s): I25.10 - ATHSCL HEART DISEASE OF [place] CORONARY ARTERY W/O ANG PCTRS (3) CKD (chronic kidney disease) Code(s): N18.9 - CHRONIC KIDNEY DISEASE, UNSPECIFIED (4) KATINA (obstructive sleep apnea) Code(s): G47.33 - OBSTRUCTIVE SLEEP APNEA (ADULT) (PEDIATRIC) (5) ASHD (arteriosclerotic heart disease) Code(s): I25.10 - ATHSCL HEART DISEASE OF [place] CORONARY ARTERY W/O ANG PCTRS (6) CHF (congestive heart failure) Code(s): I50.9 - HEART FAILURE, UNSPECIFIED Qualifiers: Heart failure type: unspecified Heart failure chronicity: acute on chronic Qualified Code(s): I50.9 - Heart failure, unspecified (7) HLD (hyperlipidemia) Code(s): E78.5 - HYPERLIPIDEMIA, UNSPECIFIED (8) HTN (hypertension) Code(s): I10 - ESSENTIAL (PRIMARY) HYPERTENSION (9) IDDM (insulin dependent diabetes mellitus) Code(s): E11.9 - TYPE 2 DIABETES MELLITUS WITHOUT COMPLICATIONS; Z79.4 - [employer] (CURRENT) USE OF INSULIN (10) Sleep apnea, obstructive Code(s): G47.33 - OBSTRUCTIVE SLEEP APNEA (ADULT) (PEDIATRIC) (11) Hypertensive urgency Code(s): I16.0 - HYPERTENSIVE URGENCY (12) Hyperthyroidism Code(s): E05.90 - THYROTOXICOSIS, UNSP WITHOUT THYROTOXIC CRISIS OR STORM (13) Pneumonia Code(s): J18.9 - PNEUMONIA, UNSPECIFIED ORGANISM (14) Thyrotoxicosis Code(s): E05.90 - THYROTOXICOSIS, UNSP WITHOUT THYROTOXIC CRISIS OR STORM Assessment/Plan IMP DYSPNEA SLOWLY IMPROVING ?CHF ?FLASH PULMONARY EDEMA FROM TACHYCARDIA EFFUSION/ATELECTASIS HYPERTENSIVE URGENCY TACHYCARDIA HYPERTHYROIDISM CKD PULMONARY HTN DM OSAS ON CPAP [id number] ASHD S/P NSTEMI,S/P STENTS ASTHMA CHRONIC VENOUS INSUFFICIENCY R HYDRONEPHROSIS PLAN O2 LASIX INHALED BRONCHODILATORS TITRATE BP MEDS RATE CONTROL BETA-BLOCKERS 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,RENAL FUNCTION F/U CHEST X-RAYS CONSIDER EVALUATION DAILY [facility] CARDIOLOGY EVALUATION DR BENDER Problem List - Problems (1) Acute on chronic heart failure Code(s): I50.9 - HEART FAILURE, UNSPECIFIED (2) CAD (coronary artery disease) Code(s): I25.10 - ATHSCL HEART DISEASE OF [place] CORONARY ARTERY W/O ANG PCTRS (3) CKD (chronic kidney disease) Code(s): N18.9 - CHRONIC KIDNEY DISEASE, UNSPECIFIED (4) KATINA (obstructive sleep apnea) Code(s): G47.33 - OBSTRUCTIVE SLEEP APNEA (ADULT) (PEDIATRIC) (5) ASHD (arteriosclerotic heart disease) Code(s): I25.10 - ATHSCL HEART DISEASE OF [place] CORONARY ARTERY W/O ANG PCTRS (6) CHF (congestive heart failure) Code(s): I50.9 - HEART FAILURE, UNSPECIFIED Qualifiers: Heart failure type: unspecified Heart failure chronicity: acute on chronic Qualified Code(s): I50.9 - Heart failure, unspecified (7) HLD (hyperlipidemia) Code(s): E78.5 - HYPERLIPIDEMIA, UNSPECIFIED (8) HTN (hypertension) Code(s): I10 - ESSENTIAL (PRIMARY) HYPERTENSION (9) IDDM (insulin dependent diabetes mellitus) Code(s): E11.9 - TYPE 2 DIABETES MELLITUS WITHOUT COMPLICATIONS; Z79.4 - [employer] (CURRENT) USE OF INSULIN (10) Sleep apnea, obstructive Code(s): G47.33 - OBSTRUCTIVE SLEEP APNEA (ADULT) (PEDIATRIC) (11) Hypertensive urgency Code(s): I16.0 - HYPERTENSIVE URGENCY (12) Hyperthyroidism Code(s): E05.90 - THYROTOXICOSIS, UNSP WITHOUT THYROTOXIC CRISIS OR STORM (13) Pneumonia Code(s): J18.9 - PNEUMONIA, UNSPECIFIED ORGANISM (14) Thyrotoxicosis Code(s): E05.90 - THYROTOXICOSIS, UNSP WITHOUT THYROTOXIC CRISIS OR STORM
[2018-05-27] MEDS ORDERED: ATENOLOL 25 MG TABLET (FP) PO SCH (13:45)
--- NOTE | 2018-05-27 13:51 | PN ---
Teaching Attending Note Name of Resident: Carey Gamboa ATTENDING PHYSICIAN STATEMENT I saw and evaluated the patient. I reviewed the resident's note and discussed the case with the resident. I agree with the resident's findings and plan as documented. SUBJECTIVE:c/o palpitations worse on exertion. self resolved with rest. has dyspnea during these episodes but not at rest. denies CP, fever, chills, N/V/C/D states she was on propanolol in the past and developed bad BUCKNER OBJECTIVE: Last Vital Signs Temp Pulse Resp BP Pulse Ox 98.0 F 119 H 20 165/100 98 05/27/18 09:19 05/27/18 09:19 05/27/18 09:19 05/27/18 09:19 05/27/18 09:00 Intake & Output 05/24/18 05/25/18 05/26/18 05/27/18 23:59 23:59 23:59 23:59 Intake Total 240 740 Balance 240 740 Weight 219 lb 6 oz 217 lb 6.4 oz 218 lb General NAD CV S1 S2 regular tachycardic Lungs decreased breath sounds R base. poor inspiratory effort Abdomen soft NT/ND obese Extremities 1+ pitting edema with non pitting edema ASSESSMENT AND PLAN: 62-year-old woman with a history of chronic diastolic heart failure, type 2 DM, HTN, hyperlipidemia, CAD, CABG, asthma, KATINA, anxiety, pulm HTN, PAF who presented to the ER with palpitations and found to be acute thyrotoxicosis 1. acute thyrotoxicosis- elevated FT4. on PTU. remains tachycardic. will switch propranol to atenolol. titrate to optimize control. endocrine consulted. plan for radioactive iodine as outpatient. 2. LLL atelectasis vs infiltrate- low clinical suspicion for PNA as afebrile and leukocytosis. holding abx at this time. CT chest done and negative for infiltrate/consolidation 3. R hydronephrosis- seen on CT scan. will obtain renal/bladder u/s to evaluate for obstruction. check bladder scan if study is delayed. 4. HTN- above goal. will adjust medications. 5. acute on chronic diastolic CHF-CT chest showing small pleural effusion continues to have pedal edema. cont with lasix for now. place compression stocking to help wtih lymphedema.strict I&O. daily weights. 6. anemia of chronic disease- Hgb at baseline. no indication for transfusion. recent iron studies noted. 7. DM- continue home medications. iss,bgm, diabetic diet 8. CAD s/p 2 stents- on prasugrel. cont medication 9. PAF- been in sinus rhythm. sinus noted on monitor and EKG.not on anticoagulation. continuous cardiac monitoring 10. CKD- at baseline 11. COPD- no wheezing at this time. hold steroids.cont inhalers. pulmonary consulted 12. DVT ppx- hep sq
[2018-05-27] MEDS ORDERED: ACETAMINOPHEN 650 MG/20.3 ML ORAL SOLUTION (CUPS) PO PRN (17:00)
[2018-05-27] MEDS: INSULIN (LEVEMIR) 100 UNITS/ML UNITS SQ SCH (22:58)
[2018-05-27] MEDS: EZETIMIBE 10 MG TABLET (FP) PO SCH (22:59)
[2018-05-27] MEDS: ROSUVASTATIN CA 10 MG TABLET (FP) PO SCH (22:59)
[2018-05-27] MEDS: ALBUTEROL SO4 0.083% IH SOL 2.5 MG/3 ML VIAL.NEB. NEB PRN (23:54)
[2018-05-28] MEDS: PROPYLTHIOURACIL 50 MG TABLET (UD) PO SCH ×3 (06:11→22:08)
[2018-05-28] MEDS: HEPARIN NA (PORCINE) 5,000 UNITS/ML 1ML VIAL SQ SCH ×3 (06:11→22:07)
[2018-05-28] MEDS: hydrALAZINE HCL 50 MG TABLET (FP) PO SCH (06:11)
[2018-05-28] MEDS: INSULIN SLIDING SCALE (NOVOLOG) 1 VIAL SQ SCH ×4 (06:12→22:08)
[2018-05-28] MEDS: ALBUTEROL SO4 0.083% IH SOL 2.5 MG/3 ML VIAL.NEB. NEB PRN ×4 (06:15→21:55)
--- NOTE | 2018-05-28 07:52 | PN ---
Progress Note, Physician History of Present Illness: pulmonary alert,feeling better,less dyspneic,+occ cough. wt 218.3 - Current Medication List Current Medications: Active Medications Acetaminophen (Tylenol Oral Solution -) 650 mg PO Q6H PRN PRN Reason: PAIN Last Admin: 05/27/18 17:36 Dose: 650 mg Albuterol Sulfate (Ventolin 0.083% Nebulizer Soln -) 1 amp NEB Q4H PRN PRN Reason: SHORT OF BREATH/WHEEZING Last Admin: 05/28/18 06:15 Dose: 1 amp Aspirin (Asa -) 81 mg PO DAILY [facility] Last Admin: 05/27/18 09:32 Dose: 81 mg Atenolol (Tenormin -) 25 mg PO DAILY [facility] Last Admin: 05/27/18 13:59 Dose: 25 mg Clonazepam (Klonopin -) 0.5 mg PO Q6H PRN PRN Reason: ANXIETY Last Admin: 05/27/18 23:08 Dose: 0.5 mg Ezetimibe (Zetia -) 10 mg PO Q48H [facility] Last Admin: 05/27/18 22:59 Dose: 10 mg Ferrous Sulfate (Feosol -) 325 mg PO BID [facility] Last Admin: 05/27/18 22:59 Dose: 325 mg Heparin Sodium (Porcine) (Heparin -) 5,000 unit SQ TID [facility] Last Admin: 05/28/18 06:11 Dose: 5,000 unit Hydralazine HCl (Apresoline -) 50 mg PO TID [facility] Last Admin: 05/28/18 06:11 Dose: 50 mg Insulin Aspart (Novolog Vial Sliding Scale -) 1 vial SQ [facility]; Protocol Last Admin: 05/28/18 06:12 Dose: Not Given Insulin Detemir (Levemir Vial) 30 units SQ [facility] Last Admin: 05/27/18 22:58 Dose: 30 units Nitroglycerin (Nitro-Dur Patch -) 0.2 mg TD DAILY [facility] Last Admin: 05/27/18 09:32 Dose: 0.2 mg Prasugrel (Effient -) 10 mg PO DAILY [facility] Last Admin: 05/27/18 09:33 Dose: 10 mg Propylthiouracil (Ptu -) 100 mg PO TID [facility] Last Admin: 05/28/18 06:11 Dose: 100 mg Rosuvastatin Calcium (Crestor -) 10 mg PO HS [facility] Last Admin: 05/27/18 22:59 Dose: 10 mg - Objective Vital Signs: Vital Signs Temperature 98.5 F 05/28/18 06:00 Pulse Rate 110 H 05/28/18 06:00 Respiratory Rate 20 05/28/18 06:00 Blood Pressure 153/96 05/28/18 06:00 O2 Sat by Pulse Oximetry (%) 97 05/27/18 21:00 Constitutional: Yes: Well Nourished, Calm Eyes: Yes: WNL HENT: Yes: WNL Neck: Yes: WNL Cardiovascular: Yes: Tachycardia, S1, S2 Respiratory: Yes: Diminished Gastrointestinal: Yes: Normal Bowel Sounds, Soft Extremities: Yes: WNL Edema: Yes Problem List - Problems (1) Acute on chronic heart failure Code(s): I50.9 - HEART FAILURE, UNSPECIFIED (2) CAD (coronary artery disease) Code(s): I25.10 - ATHSCL HEART DISEASE OF [place] CORONARY ARTERY W/O ANG PCTRS (3) CKD (chronic kidney disease) Code(s): N18.9 - CHRONIC KIDNEY DISEASE, UNSPECIFIED (4) KATINA (obstructive sleep apnea) Code(s): G47.33 - OBSTRUCTIVE SLEEP APNEA (ADULT) (PEDIATRIC) (5) ASHD (arteriosclerotic heart disease) Code(s): I25.10 - ATHSCL HEART DISEASE OF [place] CORONARY ARTERY W/O ANG PCTRS (6) CHF (congestive heart failure) Code(s): I50.9 - HEART FAILURE, UNSPECIFIED Qualifiers: Heart failure type: unspecified Heart failure chronicity: acute on chronic Qualified Code(s): I50.9 - Heart failure, unspecified (7) HLD (hyperlipidemia) Code(s): E78.5 - HYPERLIPIDEMIA, UNSPECIFIED (8) HTN (hypertension) Code(s): I10 - ESSENTIAL (PRIMARY) HYPERTENSION (9) IDDM (insulin dependent diabetes mellitus) Code(s): E11.9 - TYPE 2 DIABETES MELLITUS WITHOUT COMPLICATIONS; Z79.4 - [facility] [employer] (CURRENT) USE OF INSULIN (10) Sleep apnea, obstructive Code(s): G47.33 - OBSTRUCTIVE SLEEP APNEA (ADULT) (PEDIATRIC) (11) Hypertensive urgency Code(s): I16.0 - HYPERTENSIVE URGENCY (12) Hyperthyroidism Code(s): E05.90 - THYROTOXICOSIS, UNSP WITHOUT THYROTOXIC CRISIS OR STORM (13) Pneumonia Code(s): J18.9 - PNEUMONIA, UNSPECIFIED ORGANISM (14) Thyrotoxicosis Code(s): E05.90 - THYROTOXICOSIS, UNSP WITHOUT THYROTOXIC CRISIS OR STORM Assessment/Plan IMP DYSPNEA SLOWLY IMPROVING ? CHF EFFUSION/ATELECTASIS S/P HYPERTENSIVE URGENCY TACHYCARDIA HYPERTHYROIDISM ACUTE ON CKD PULMONARY HTN DM OSAS ON CPAP [id number] ASHD S/P NSTEMI,S/P STENTS ASTHMA CHRONIC VENOUS INSUFFICIENCY R HYDRONEPHROSIS PLAN O2 LASIX NEEDED INHALED BRONCHODILATORS TITRATE BP MEDS RATE CONTROL BETA-BLOCKERS CPAP AT SIDE SPLITTER LYTES,RENAL FUNCTION F/U CHEST X-RAYS CONSIDER EVALUATION DAILY [facility] CARDIOLOGY EVALUATION DR BENDER Problem List - Problems (1) Acute on chronic heart failure Code(s): I50.9 - HEART FAILURE, UNSPECIFIED (2) CAD (coronary artery disease) Code(s): I25.10 - ATHSCL HEART DISEASE OF [place] CORONARY ARTERY W/O ANG PCTRS (3) CKD (chronic kidney disease) Code(s): N18.9 - CHRONIC KIDNEY DISEASE, UNSPECIFIED (4) KATINA (obstructive sleep apnea) Code(s): G47.33 - OBSTRUCTIVE SLEEP APNEA (ADULT) (PEDIATRIC) (5) ASHD (arteriosclerotic heart disease) Code(s): I25.10 - ATHSCL HEART DISEASE OF [place] CORONARY ARTERY W/O ANG PCTRS (6) CHF (congestive heart failure) Code(s): I50.9 - HEART FAILURE, UNSPECIFIED Qualifiers: Heart failure type: unspecified Heart failure chronicity: acute on chronic Qualified Code(s): I50.9 - Heart failure, unspecified (7) HLD (hyperlipidemia) Code(s): E78.5 - HYPERLIPIDEMIA, UNSPECIFIED (8) HTN (hypertension) Code(s): I10 - ESSENTIAL (PRIMARY) HYPERTENSION (9) IDDM (insulin dependent diabetes mellitus) Code(s): E11.9 - TYPE 2 DIABETES MELLITUS WITHOUT COMPLICATIONS; Z79.4 - [place] (CURRENT) USE OF INSULIN (10) Sleep apnea, obstructive Code(s): G47.33 - OBSTRUCTIVE SLEEP APNEA (ADULT) (PEDIATRIC) (11) Hypertensive urgency Code(s): I16.0 - HYPERTENSIVE URGENCY (12) Hyperthyroidism Code(s): E05.90 - THYROTOXICOSIS, UNSP WITHOUT THYROTOXIC CRISIS OR STORM (13) Pneumonia Code(s): J18.9 - PNEUMONIA, UNSPECIFIED ORGANISM (14) Thyrotoxicosis Code(s): E05.90 - THYROTOXICOSIS, UNSP WITHOUT THYROTOXIC CRISIS OR STORM
[2018-05-28 07:57] LABS: EOS % 5.7 % (0-4.5); HEMATOCRIT 29.6 % (32.4-45.2); HEMOGLOBIN 9.6 GM/dL (10.7-15.3); LYMPH % 33.3 % (8-40); MCH 24.6 pg (25.7-33.7); MCHC 32.5 g/dl (32.0-36.0); MEAN CELL VOLUME 75.6 fl (80-96); MEAN PLT VOLUME 8.5 fl (7.5-11.1); MONO % 11.3 % (3.8-10.2); NEUT % 48.7 % (42.8-82.8); PLATELET COUNT 253 K/MM3 (134-434); RBC 3.91 M/mm3 (3.60-5.2); RDW 13.9 % (11.6-15.6); WHITE BLOOD COUNT 6.1 K/mm3 (4.0-10.0)
--- NOTE | 2018-05-28 08:19 | CON.CARD ---
Consult - History of Present Illness Chief Complaint: palpitations History of Present Illness: 63 yo female being followed closely by me in conjunction with her PMD dr whatley for the past 6 wks or so for hyperthyroidism with associated tachycardia, palpitations, unintentional wt loss, acute on chronic labile HTN with mult med intolerances, mildly decompensated diast chf, and new LE edema (out of proportion to the degree of CHF). she saw dr lynn (renal) in office and was sent to hospital. has been on hospitalist service where uncontrolled bp, palpitations and mild chf /asthma have been treated. dtr asked me yesterday to consult on her care. has felt more sob at times, waxes and wanes. leg swelling persists. feels fluid in her stomach which is her usual chf sx. palpitations much better. no cp. home meds as of: aspirin 81 coreg CR 10 rosuvastatin 10 diltiazem 30 tid effient 10 hydralazine 37.5 tid lantus methimazole 5mg NTG patch 0.2mg novolog propranolol 40mg tid torsemide 40mg qd ezetimibe 10 symbicort, albuterol PMH: CAD, MD, PCIs diast chf KATINA labile HTN DM HPL chronic anemia morbid obesity - Past Medical History Cardio/Vascular: Yes: AFIB, CAD, CHF, HTN, Hyperlipdemia, MD, Mitral Insufficiency, Pulmonary Hypertension Pulmonary: Yes: Sleep Apnea Renal/: Yes: Renal Failure ...: No Endocrine: Yes: Diabetes Mellitus - Past Surgical History Past Surgical History: Yes: Stent - Alcohol/Substance Use Hx Alcohol Use: No - Smoking History Smoking history: Never smoked Have you smoked in the past 12 months: No Aproximately how many cigarettes per day: 0 Home Medications - Allergies Allergies/Adverse Reactions: Allergies Allergy/AdvReac Type Severity Reaction Status Date / Time Penicillins Allergy Intermediate Hives Verified 05/25/18 14:01 Iodinated Contrast- Oral and Allergy Verified 05/25/18 14:01 IV Dye [Iodinated Contrast Media - IV Dye] tiotropium AdvReac Verified 05/25/18 14:01 [From [facility]ir[facility] with HandiHaler] - Home Medications Home Medications: Ambulatory Orders Aspirin [ASA -] 81 mg PO DAILY #1 tab 03/06/13 Ferrous Sulfate [Feosol] 325 mg PO BID #0 ud 05/08/15 Prasugrel Hydrochloride [Effient -] 10 mg PO DAILY #0 tab 05/08/15 Albuterol 0.083% Nebulizer Bibiana [Ventolin 0.083% Nebulizer Soln -] 1 neb NEB QID 09/14/16 Insulin Glargine,Hum.rec.anlog [Lantus (10mL VIAL) -] 30 units SQ HS 04/29/17 Insulin Lispro [Humalog] 100 unit SQ PRN 04/29/17 Budesonide/Formeterol Fumarate [SYMBICORT 160/4.5mcg -] 2 inh PO BID 06/13/17 clonazePAM [KlonoPIN] 0.5 mg PO QID PRN 06/13/17 Carvedilol Phosphate [Coreg Cr -] 10 mg PO DAILY #30 cap 06/23/17 Hydralazine HCl 50 mg PO TID #90 tablet 06/23/17 Albuterol 0.083% Nebulizer Bibiana [Ventolin 0.083% Nebulizer Soln -] 1 amp NEB Q4H #1 amp 12/20/17 Ezetimibe [Zetia -] 10 mg PO Q48H 30 Days #30 tablet 12/20/17 Nitroglycerin Patch [Nitro-Dur Patch -] 0.2 mg TD DAILY #30 patch.td24 12/20/17 Torsemide [Demadex -] 20 mg PO DAILY #60 tablet 12/20/17 Rosuvastatin [Crestor -] 10 mg PO HS #30 tablet 04/15/18 Brimonidine Tartrate [Alphagan P 0.1% -] 3 drop OU Q8H 05/27/18 Latanoprost 0.005% Eye Drops [Xalatan 0.005% Eye Drops -] 1 drop OU DAILY Methimazole [Tapazole -] 5 mg PO Q8H 05/27/18 Pantoprazole Sodium [Protonix -] 40 mg PO DAILY 05/27/18 Spironolactone 12.5 mg PO DAILY 05/27/18 Family Disease History - Family Disease History Family History: Denies (no known cmp) Review of Systems - Review of Systems Constitutional: denies: Chills, Fever Eyes: denies: Eye Pain HENT: denies: Nasal Congestion Neck: denies: Stiffness Cardiovascular: reports: Edema, Palpitations Respiratory: reports: Wheezing. denies: Orthopnea, PND Gastrointestinal: denies: Diarrhea, Rectal Bleeding Genitourinary: denies: Burning, Hematuria Musculoskeletal: denies: Muscle Pain Integumentary: denies: Rash Neurological: denies: Numbness, Seizure, Syncope Endocrine: denies: Excessive Sweating Hematology/Lymphatic: denies: Excessive Bleeding Vital Signs: Vital Signs Temperature 98.5 F 05/28/18 06:00 Pulse Rate 110 H 05/28/18 06:00 Respiratory Rate 20 05/28/18 06:00 Blood Pressure 153/96 05/28/18 06:00 O2 Sat by Pulse Oximetry (%) 97 05/27/18 21:00 Constitutional: Yes: Well Nourished, No Distress Eyes: No: Sclera Icterus HENT: No: Nasal Congestion Neck: No: Decreased ROM Respiratory: Yes: CTA Bilaterally, Wheezes. No: Accessory Muscle Use, Rales Gastrointestinal: Yes: Normal Bowel Sounds. No: Distention, Hepatomegaly, Palpable Mass, Tenderness Cardiovascular: Yes: Regular Rate and Rhythm JVD: Yes Carotid Bruit: No PMI: Non-Displaced Heart Sounds: Yes: S1, S2. No: Gallop Murmur: No: Systolic Murmur, Diastolic Murmur Musculoskeletal: Yes: Other (No kyphosis) Extremities: No: Cool, Cyanosis Edema: Yes (nonpitting bilat) Peripheral Pulses: 2+ Left Carotid, 2+ Right Carotid, 2+ Left Doralis Pedis, 2+ Right Dorsalis Pedis Integumentary: No: Jaundice Neurological: Yes: Alert, Oriented (x3) Psychiatric: No: Agitated - Other Data Labs, Other Data: CBC, BMP 05/28/18 06:00 Laboratory Tests 04/30/15 12/05/16 06/13/17 19:11 17:20 15:32 WBC Hgb Plt Count Sodium Potassium Carbon Dioxide BUN Creatinine AST ALT Troponin I B-Natriuretic Peptide 3703.51 H 1671.30 H 1787.57 H 05/25/18 05/26/18 05/27/18 20:11 05:30 05:30 WBC Hgb Plt Count Sodium 140 Potassium 4.4 Carbon Dioxide 26 BUN 56 H Creatinine 3.0 H AST 26 ALT 30 Troponin I 0.30 H 0.30 H B-Natriuretic Peptide 05/28/18 06:00 WBC 6.1 Hgb 9.6 L Plt Count 253 Sodium Potassium Carbon Dioxide BUN Creatinine AST ALT Troponin I B-Natriuretic Peptide Assessment/Plan ECG--sinus tach 138 bpm, nonspecific ST-T changes CT chest: small bilat effusions with atx. o/w clear lungs. R sided hydronephrosis [facility] 2014: unchanged 70-80% distal RCA lesion. patent mLAD stent. 80-90% pLCX-- [facility]AREN Echo 12/2016: TDS. nl LV size/EF. mild LVH. grade 2 d.d., hi E/e' = high LAP. nl RV. mild LAE. mild-mod MR, mod TR. mild pHTN (46 mmHg). acute on chronic diast CHF: -exacerbated recently by uncontrolled hyperthyroidism with tachycardia (and htn) -new dry wt due to hyperthyroid-related wt loss. has been 221-225 at home -BP and HR control as doing (as med intolerances allow) -torsemide on hold here (was taking 40mg qd at home recently) -feeling her usual chf sx's here, JVD on exam, small pleural effusions. -will give dose of lasix 40 IV x 1 today and reassess in am (d/w'd renal, agrees with plan) -habitus, chronic sob from asthma, advanced CKD makes clinical assessment of HF status very challenging--pt previously declined cardiomems invasive PAP monitor sinus tach, palpitations, thyrotoxicosis: -remote h/o intolerance to metoprolol, atenolol, ? 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 changed to atenolol yesterday by hospitalist. -also initiated low dose diltiazem recently as outpt to help control HR (h/o intolerable leg swelling to mult CCBs in past, now with chronic LE edema due to hyperthyroid state) -resume baseline coreg CR 10mg (also for BP control). change atenolol to trial of metoprolol succinate 25 qd to help control tachycardia until thyroid status improves (unusual pt requires unusual drug combinations) -not receiving diltiazem here--defer for now. labile HTN: -prior reasonable control, lost of late due to hyperthyroidism which was initially untreated for several weeks -mult med intolerances in past -change hydral 50 tid back to 37.5 tid (intolerable reflex tachycardia/ palpitations on 50mg dose in past) -resume coreg CR 10mg CAD, prior NSTEMI/PCI: -non-ischemic ECG here (ST-Ts likely rate-related). trop 0.3 x 2 intermediate range, flat trend--consistent with chronic elevation from pt with known chronically elevated filling pressures, ? contribution from tachycardia as well -cont home DAPT (aspirin/effient), statin with zetia, bb CKD: -baseline creat runs 2.5-2.8 -renal fxn presently slightly worse -R sided hydronephrosis on CT scan--per renal +/- mod-severe asthma, frequent exacerbations: -have downtitrated b-isrrael (previously coreg CR) to minimal tolerated dose ( requires for BP and tachycardia control)--was on coreg CR 10mg -bb changed recently to control tachycardia in setting of thyrotoxicosis -airways tx per pulmonary HPL: -intolerant of mult statins -LDL at baseline is >200 -well controlled on home rosuvastatin plus zetia regimen with LDL near 100-120 chronic anemia: -baseline hgb runs 9s-10s. counts stable here. DM: -per hospitalist
[2018-05-28 08:20] LABS: CHLORIDE 102 mmol/L (98-107); POTASSIUM 4.2 mmol/L (3.5-5.1); SODIUM 138 mmol/L (136-145)
[2018-05-28 08:37] LABS: ALBUMIN 3.1 g/dl (3.4-5.0); ALK PHOS 104 U/L (45-117); ANION GAP 12 (8-16); BILIRUBIN,TOTAL 0.3 mg/dL (0.2-1.0); BLOOD UREA NITROGEN 57 mg/dL (7-18); CALCIUM 8.8 mg/dL (8.5-10.1); CO2 24 mmol/L (21-32); GLUCOSE,RANDOM 112 mg/dL (74-106); MAGNESIUM 1.8 mg/dL (1.8-2.4); PHOSPHOROUS 5.7 mg/dL (2.5-4.9); SGOT/AST 25 U/L (15-37); SGPT/ALT 28 U/L (12-78); TOT PROT 6.8 g/dl (6.4-8.2)
[2018-05-28] MEDS: ASPIRIN 81 MG CHEWABLE TABLETS PO SCH (10:07)
[2018-05-28] MEDS: FERROUS SO4 325 MG TABLET (FP) PO SCH ×2 (10:07→22:07)
[2018-05-28] MEDS: CARVEDILOL PHOSPHATE CR 10 MG CAPSULE PO SCH (10:08)
[2018-05-28] MEDS: metoPROLOL SUCCINATE 25 MG TAB.SR.24H (FP) PO SCH (10:08)
[2018-05-28] MEDS: PRASUGREL HCL 10 MG TAB PO SCH (10:09)
[2018-05-28] MEDS: NITROGLYCERIN 0.2 MG/HOUR TD PATCH TD SCH (10:16)
--- NOTE | 2018-05-28 12:27 | CONSULT ---
Consult - text type - Consultation Consultation Note: Renal consult for CKD/Hydronephrosis This is a 63 year old woman with PMhx of CKD stage 4 (baseline Cr 2.5-3), Recently diagnosed hyperthyroidism, Hypertension, D-HF, DM type 2, HLD, CAD, CABG, Asthma, PAFib who presented with tachycardia and found to have acute thyrotoxicosis and Cr of 3 with right hydronephrosis. Pt without any acute complaints. Feels better. no sob, chest pain. PMhx: as above Allergies: PCN, IV contrast Family Hx: NC ROS: as per HPI Home Meds: Home Medications Medication Instructions Recorded Aspirin [ASA -] 81 mg PO DAILY #1 tab 03/06/13 Ferrous Sulfate [Feosol] 325 mg PO BID #0 ud 05/08/15 Prasugrel Hydrochloride [Effient -] 10 mg PO DAILY #0 tab 05/08/15 Albuterol 0.083% Nebulizer Bibiana 1 neb NEB QID 09/14/16 [Ventolin 0.083% Nebulizer Soln -] Insulin Glargine,Hum.rec.anlog 30 units SQ HS 04/29/17 [Lantus (10mL VIAL) -] Insulin Lispro [Humalog] 100 unit SQ PRN 04/29/17 Budesonide/Formeterol Fumarate 2 inh PO BID 06/13/17 [SYMBICORT 160/4.5mcg -] clonazePAM [KlonoPIN] 0.5 mg PO QID PRN 06/13/17 Carvedilol Phosphate [Coreg Cr -] 10 mg PO DAILY #30 cap 06/23/17 Hydralazine HCl 50 mg PO TID #90 tablet 06/23/17 Albuterol 0.083% Nebulizer Bibiana 1 amp NEB Q4H #1 amp 12/20/17 [Ventolin 0.083% Nebulizer Soln -] Ezetimibe [Zetia -] 10 mg PO Q48H 30 Days #30 tablet 12/20/17 Nitroglycerin Patch [Nitro-Dur 0.2 mg TD DAILY #30 patch.td24 12/20/17 Patch -] Torsemide [Demadex -] 20 mg PO DAILY #60 tablet 12/20/17 Rosuvastatin [Crestor -] 10 mg PO HS #30 tablet 04/15/18 Brimonidine Tartrate [Alphagan P 3 drop OU Q8H 05/27/18 0.1% -] Latanoprost 0.005% Eye Drops 1 drop OU DAILY 05/27/18 [Xalatan 0.005% Eye Drops -] Methimazole [Tapazole -] 5 mg PO Q8H 05/27/18 Pantoprazole Sodium [Protonix -] 40 mg PO DAILY 05/27/18 Spironolactone 12.5 mg PO DAILY 05/27/18 Vital Signs Temperature 98.5 F 05/28/18 06:00 Pulse Rate 110 H 05/28/18 06:00 Respiratory Rate 22 05/28/18 09:00 Blood Pressure 153/96 05/28/18 06:00 O2 Sat by Pulse Oximetry (%) 97 05/28/18 09:00 Intake & Output 05/25/18 05/26/18 05/27/18 05/28/18 23:59 23:59 23:59 23:59 Intake Total 240 740 Balance 240 740 Weight 99.507 kg 98.611 kg 98.883 kg 98.974 kg NAD awake and alert tachycarida, No M/R Dec BS, no rales CTA + edema in LE CBC, BMP 05/28/18 06:00 05/28/18 06:00 Current Medications Acetaminophen (Tylenol Oral Solution -) 650 mg PO Q6H PRN PRN Reason: PAIN Last Admin: 05/27/18 17:36 Dose: 650 mg Albuterol Sulfate (Ventolin 0.083% Nebulizer Soln -) 1 amp NEB Q4H PRN PRN Reason: SHORT OF BREATH/WHEEZING Last Admin: 05/28/18 11:12 Dose: 1 amp Aspirin (Asa -) 81 mg PO DAILY [facility] Last Admin: 05/28/18 10:07 Dose: 81 mg Carvedilol (Coreg Cr -) 10 mg PO DAILY [facility] Last Admin: 05/28/18 10:08 Dose: 10 mg Clonazepam (Klonopin -) 0.5 mg PO Q6H PRN PRN Reason: ANXIETY Last Admin: 05/27/18 23:08 Dose: 0.5 mg Ezetimibe (Zetia -) 10 mg PO Q48H [facility] Last Admin: 05/27/18 22:59 Dose: 10 mg Ferrous Sulfate (Feosol -) 325 mg PO BID [facility] Last Admin: 05/28/18 10:07 Dose: 325 mg Heparin Sodium (Porcine) (Heparin -) 5,000 unit SQ TID [facility] Last Admin: 05/28/18 06:11 Dose: 5,000 unit Hydralazine HCl (Apresoline -) 37.5 mg PO TID [facility] Insulin Aspart (Novolog Vial Sliding Scale -) 1 vial SQ [facility]; Protocol Last Admin: 05/28/18 11:16 Dose: 2 units Insulin Detemir (Levemir Vial) 30 units SQ [facility] Last Admin: 05/27/18 22:58 Dose: 30 units Metoprolol Succinate (Toprol Xl -) 25 mg PO DAILY [facility] Last Admin: 05/28/18 10:08 Dose: 25 mg Nitroglycerin (Nitro-Dur Patch -) 0.2 mg TD DAILY [facility] Last Admin: 05/28/18 10:16 Dose: 0.2 mg Prasugrel (Effient -) 10 mg PO DAILY [facility] Last Admin: 05/28/18 10:09 Dose: 10 mg Propylthiouracil (Ptu -) 100 mg PO TID [facility] Last Admin: 05/28/18 06:11 Dose: 100 mg Rosuvastatin Calcium (Crestor -) 10 mg PO [facility] Last Admin: 05/27/18 22:59 Dose: 10 mg 63 year old woman with PMhx of CKD stage 4 (baseline Cr 2.5-3), Recently diagnosed hyperthyroidism, Hypertension, D-HF, DM type 2, HLD, CAD, CABG, Asthma , PAFib who presented with tachycardia and found to have acute thyrotoxicosis and Cr of 3 with right hydronephrosis. #CKD Stage 4 #Right hydronephrosis #Thyrotoxicosis #Hypertension Renal function near baseline unclear if hydronephrosis is functional, will check NM renal scan with Lasix Continue to trend renal function and electrolytes continue management of thyrotoxoicosis as per primary on metoprolol, hydralazine, coreg for hypertension Lasix as needed for volume mangement Will follow Goyo Cid DO
[2018-05-28] MEDS ORDERED: FUROSEMIDE 40 MG/4 ML INJECTABLE VIAL IVPUSH ONE (12:57)
--- NOTE | 2018-05-28 13:02 | PN ---
Progress Note (short form) - Note Progress Note: c/o belly feeling distended, states when she goes into heart failure this is typically her first presentation. having dry cough as well. denies Cp, SOB, fever, chills, N/V/C/D, palpitation Current Medications Generic Name Dose Route Start Last Admin Trade Name Freq PRN Reason Stop Dose Admin Acetaminophen 650 mg 05/27/18 17:00 05/27/18 17:36 Tylenol Oral Solution - PO 650 mg Q6H PRN Administration PAIN Albuterol Sulfate 1 amp 05/26/18 12:51 05/28/18 11:12 Ventolin 0.083% Nebulizer Soln - NEB 1 amp Q4H PRN Administration SHORT OF BREATH/WHEEZING Aspirin 81 mg 05/26/18 10:00 05/28/18 10:07 Asa - PO 81 mg DAILY LALO Administration Carvedilol 10 mg 05/28/18 10:00 05/28/18 10:08 Coreg Cr - PO 10 mg DAILY LALO Administration Clonazepam 0.5 mg 05/25/18 19:01 05/27/18 23:08 Klonopin - PO 0.5 mg Q6H PRN Administration ANXIETY Ezetimibe 10 mg 05/25/18 19:15 05/27/18 22:59 Zetia - PO 10 mg Q48H LALO Administration Ferrous Sulfate 325 mg 05/25/18 22:00 05/28/18 10:07 Feosol - PO 325 mg BID LALO Administration Heparin Sodium (Porcine) 5,000 unit 05/25/18 22:00 05/28/18 06:11 Heparin - SQ 5,000 unit TID LALO Administration Hydralazine HCl 37.5 mg 05/28/18 14:00 Apresoline - PO TID LALO Insulin Aspart 1 vial 05/26/18 07:00 05/28/18 11:16 Novolog Vial Sliding Scale - SQ 2 units ACHS LALO Administration Protocol Insulin Detemir 30 units 05/25/18 22:00 05/27/18 22:58 Levemir Vial SQ 30 units HS LALO Administration Metoprolol Succinate 25 mg 05/28/18 10:00 05/28/18 10:08 Toprol Xl - PO 25 mg DAILY LALO Administration Nitroglycerin 0.2 mg 05/26/18 10:00 06/30/18 10:16 Nitro-Dur Patch - TD 0.2 mg DAILY [facility]O Administration Prasugrel 10 mg 05/26/18 10:00 05/28/18 10:09 Effient - PO 10 mg DAILY [facility]ALO Administration Propylthiouracil 100 mg 05/25/18 22:00 05/28/18 06:11 Ptu - PO 100 mg TID LALO Administration Rosuvastatin Calcium 10 mg 05/25/18 22:00 05/27/18 22:59 Crestor - PO 10 mg HS LALO Administration Last Vital Signs Temp Pulse Resp BP Pulse Ox 98.5 F 110 H 22 153/96 97 05/28/18 06:00 05/28/18 06:00 05/28/18 09:00 05/28/18 06:00 05/28/18 09:00 General NAD CV S1 S2 regular tachycardic Lungs decreased breath sounds R base. poor inspiratory effort Abdomen soft NT/ND obese Extremities 1+ pitting edema CBCD WBC 6.1 K/mm3 (4.0-10.0) 05/28/18 06:00 RBC 3.91 M/mm3 (3.60-5.2) 05/28/18 06:00 Hgb 9.6 GM/dL (10.7-15.3) L 05/28/18 06:00 Hct 29.6 % (32.4-45.2) L 05/28/18 06:00 MCV 75.6 fl (80-96) L 05/28/18 06:00 MCHC 32.5 g/dl (32.0-36.0) 05/28/18 06:00 RDW 13.9 % (11.6-15.6) 05/28/18 06:00 Plt Count 253 K/MM3 (134-434) 05/28/18 06:00 MPV 8.5 fl (7.5-11.1) 05/28/18 06:00 CMP Sodium 138 mmol/L (136-145) 05/28/18 06:00 Potassium 4.2 mmol/L (3.5-5.1) 05/28/18 06:00 Chloride 102 mmol/L (98-107) 05/28/18 06:00 Carbon Dioxide 24 mmol/L (21-32) 05/28/18 06:00 Anion Gap 12 (8-16) 05/28/18 06:00 BUN 57 mg/dL (7-18) H 05/28/18 06:00 Creatinine 3.0 mg/dL (0.55-1.02) H 05/28/18 06:00 Creat Clearance w eGFR 15.76 (>60) 05/28/18 06:00 Calcium 8.8 mg/dL (8.5-10.1) 05/28/18 06:00 Total Bilirubin 0.3 mg/dL (0.2-1.0) 05/28/18 06:00 AST 25 U/L (15-37) 05/28/18 06:00 ALT 28 U/L (12-78) 05/28/18 06:00 Alkaline Phosphatase 104 U/L (45-117) 05/28/18 06:00 Total Protein 6.8 g/dl (6.4-8.2) 05/28/18 06:00 Albumin 3.1 g/dl (3.4-5.0) L 05/28/18 06:00 ASSESSMENT AND PLAN: 62-year-old woman with a history of chronic diastolic heart failure, type 2 DM, HTN, hyperlipidemia, CAD, CABG, asthma, KATINA, anxiety, pulm HTN, PAF who presented to the ER with palpitations and found to be acute thyrotoxicosis 1. acute thyrotoxicosis- elevated FT4. on PTU. endocrine consulted. plan for radioactive iodine as outpatient. 2. Sinus tachycardia- due to acute thyrotoxicosis state. not responding well to current therapy. cardio consulted. started on metoprolol and re-started on home coreg. has hx of unusual side effects from medications therefore this regimen selected by cardio. will need to monitor respiratory status closely 3. Acute on chronic diastolic CHF- developing abdominal volume overload. started on lasix IV. strict I&O, daily weights. cardio on baord 4. LLL atelectasis vs infiltrate- low clinical suspicion for PNA as afebrile and leukocytosis. holding abx at this time. CT chest done and negative for infiltrate/consolidation 5. R hydronephrosis- u/s showing worsening from previous. 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 nephro consulted. plan for NM renal scan on wednesday. small post-void residual. likely this hydro is not functional as her kidney function is very close to baseline. 6. HTN- improved. cont current management 7. anemia of chronic disease- Hgb at baseline. no indication for transfusion. recent iron studies noted. 8. DM- continue home medications. iss,bgm, diabetic diet 9. CAD s/p 2 stents- on prasugrel. cont medication 10. PAF- been in sinus rhythm. sinus noted on monitor and EKG.not on anticoagulation. continuous cardiac monitoring 11. Acute on CKD- as per cardio baseline is 2.6-2.8. likely pre-renal. started on diuretics. will monitor 12. COPD- no wheezing at this time. hold steroids.cont inhalers. pulmonary consulted 13. DVT ppx- hep sq Visit type - Emergency Visit Emergency Visit: Yes ED Registration Date: 05/25/18 Care time: The patient presented to the Emergency Department on the above date and was hospitalized for further evaluation of their emergent condition. - New Patient This patient is new to me today: No - Critical Care Critical Care patient: No - Discharge Referral Referred to [facility] Med P.C.: No
[2018-05-28] MEDS: hydrALAZINE HCL 25 MG TABLET (FP) PO SCH ×2 (13:40→22:02)
[2018-05-28] MEDS: INSULIN (LEVEMIR) 100 UNITS/ML UNITS SQ SCH (22:01)
[2018-05-28] MEDS: ROSUVASTATIN CA 10 MG TABLET (FP) PO SCH (22:07)
--- NOTE | 2018-05-28 22:13 | PN ---
Progress Note, Physician Chief Complaint: tolerating ptu remains anxious no tremors History of Present Illness: hyperthyroidism,chf,htn,copd,continues with symptomatic evidence hyperthyroidism - Current Medication List Current Medications: Active Medications Acetaminophen (Tylenol Oral Solution -) 650 mg PO Q6H PRN PRN Reason: PAIN Last Admin: 05/27/18 17:36 Dose: 650 mg Albuterol Sulfate (Ventolin 0.083% Nebulizer Soln -) 1 amp NEB Q4H PRN PRN Reason: SHORT OF BREATH/WHEEZING Last Admin: 05/28/18 21:55 Dose: 1 amp Aspirin (Asa -) 81 mg PO DAILY [facility] Last Admin: 05/28/18 10:07 Dose: 81 mg Carvedilol (Coreg Cr -) 10 mg PO DAILY [facility] Last Admin: 05/28/18 10:08 Dose: 10 mg Clonazepam (Klonopin -) 0.5 mg PO Q6H PRN PRN Reason: ANXIETY Last Admin: 05/27/18 23:08 Dose: 0.5 mg Ezetimibe (Zetia -) 10 mg PO Q48H [facility] Last Admin: 05/27/18 22:59 Dose: 10 mg Ferrous Sulfate (Feosol -) 325 mg PO BID [facility] Last Admin: 05/28/18 10:07 Dose: 325 mg Heparin Sodium (Porcine) (Heparin -) 5,000 unit SQ TID [facility] Last Admin: 05/28/18 13:40 Dose: 5,000 unit Hydralazine HCl (Apresoline -) 37.5 mg PO TID [facility] Last Admin: 05/28/18 13:40 Dose: 37.5 mg Insulin Aspart (Novolog Vial Sliding Scale -) 1 vial SQ [facility]; Protocol Last Admin: 05/28/18 16:44 Dose: 2 units Insulin Detemir (Levemir Vial) 30 units SQ HS [facility] Last Admin: 05/27/18 22:58 Dose: 30 units Metoprolol Succinate (Toprol Xl -) 25 mg PO DAILY [facility] Last Admin: 05/28/18 10:08 Dose: 25 mg Nitroglycerin (Nitro-Dur Patch -) 0.2 mg TD DAILY [facility] Last Admin: 05/28/18 10:16 Dose: 0.2 mg Prasugrel (Effient -) 10 mg PO DAILY [facility] Last Admin: 05/28/18 10:09 Dose: 10 mg Propylthiouracil (Ptu -) 100 mg PO TID [facility] Last Admin: 05/28/18 13:51 Dose: 100 mg Rosuvastatin Calcium (Crestor -) 10 mg PO HS [facility] Last Admin: 05/27/18 22:59 Dose: 10 mg - Objective Vital Signs: Vital Signs Temperature 98.5 F 05/28/18 17:58 Pulse Rate 113 H 05/28/18 17:58 Respiratory Rate 20 05/28/18 17:58 Blood Pressure 147/79 05/28/18 17:58 O2 Sat by Pulse Oximetry (%) 100 05/28/18 21:00 Constitutional: Yes: Calm Eyes: Yes: EOM Intact HENT: Yes: Normocephalic Neck: Yes: Trachea Midline Cardiovascular: Yes: Regular Rate and Rhythm Respiratory: Yes: CTA Bilaterally Gastrointestinal: Yes: Normal Bowel Sounds Extremities: Yes: WNL Psychiatric: Yes: Alert, Oriented Labs: CBC, BMP 05/28/18 06:00 05/28/18 06:00 Problem List - Problems (1) Hyperthyroidism Code(s): E05.90 - THYROTOXICOSIS, UNSP WITHOUT THYROTOXIC CRISIS OR STORM (2) Pneumonia Code(s): J18.9 - PNEUMONIA, UNSPECIFIED ORGANISM (3) Acute exacerbation of asthma with allergic rhinitis Code(s): J45.901 - UNSPECIFIED ASTHMA WITH (ACUTE) EXACERBATION (4) Acute on chronic heart failure Code(s): I50.9 - HEART FAILURE, UNSPECIFIED Assessment/Plan Current Active Problems Hypertensive urgency (Acute) Hyperthyroidism (Acute) Pneumonia (Acute) Thyrotoxicosis (Acute) Abnormal Lab Results 05/28/18 05/28/18 06:00 06:00 Hgb 9.6 L Hct 29.6 L MCV 75.6 L MCH 24.6 L Monocytes % 11.3 H Eosinophils % 5.7 H BUN 57 H Creatinine 3.0 H Random Glucose 112 H Phosphorus 5.7 H Albumin 3.1 L Free T4 2.09 H plan: ptu 100mg tid follow tfts continue betablockers
[2018-05-29] MEDS: INSULIN SLIDING SCALE (NOVOLOG) 1 VIAL SQ SCH ×4 (06:40→21:27)
[2018-05-29] MEDS: HEPARIN NA (PORCINE) 5,000 UNITS/ML 1ML VIAL SQ SCH ×3 (06:40→21:26)
[2018-05-29] MEDS: PROPYLTHIOURACIL 50 MG TABLET (UD) PO SCH ×3 (06:40→21:28)
[2018-05-29] MEDS: hydrALAZINE HCL 25 MG TABLET (FP) PO SCH ×3 (06:41→21:24)
[2018-05-29] MEDS: ALBUTEROL SO4 0.083% IH SOL 2.5 MG/3 ML VIAL.NEB. NEB PRN ×2 (07:35→20:26)
--- NOTE | 2018-05-29 08:04 | PN ---
Progress Note, Physician History of Present Illness: PULMONARY ALERT,FEELING BETTER,DYSPNEA IMPROVING,-CP - Current Medication List Current Medications: Active Medications Acetaminophen (Tylenol Oral Solution -) 650 mg PO Q6H PRN PRN Reason: PAIN Last Admin: 05/27/18 17:36 Dose: 650 mg Albuterol Sulfate (Ventolin 0.083% Nebulizer Soln -) 1 amp NEB Q4H PRN PRN Reason: SHORT OF BREATH/WHEEZING Last Admin: 05/28/18 21:55 Dose: 1 amp Aspirin (Asa -) 81 mg PO DAILY [facility] Last Admin: 05/28/18 10:07 Dose: 81 mg Carvedilol (Coreg Cr -) 10 mg PO DAILY [facility] Last Admin: 05/28/18 10:08 Dose: 10 mg Clonazepam (Klonopin -) 0.5 mg PO Q6H PRN PRN Reason: ANXIETY Last Admin: 05/27/18 23:08 Dose: 0.5 mg Ezetimibe (Zetia -) 10 mg PO Q48H [facility] Last Admin: 05/27/18 22:59 Dose: 10 mg Ferrous Sulfate (Feosol -) 325 mg PO BID [facility] Last Admin: 05/28/18 22:07 Dose: 325 mg Heparin Sodium (Porcine) (Heparin -) 5,000 unit SQ TID [facility] Last Admin: 05/29/18 06:40 Dose: 5,000 unit Hydralazine HCl (Apresoline -) 37.5 mg PO TID [facility] Last Admin: 05/29/18 06:41 Dose: 37.5 mg Insulin Aspart (Novolog Vial Sliding Scale -) 1 vial SQ [facility]; Protocol Last Admin: 05/29/18 06:40 Dose: Not Given Insulin Detemir (Levemir Vial) 30 units SQ [facility] Last Admin: 05/28/18 22:01 Dose: Not Given Metoprolol Succinate (Toprol Xl -) 25 mg PO DAILY [facility] Last Admin: 05/28/18 10:08 Dose: 25 mg Nitroglycerin (Nitro-Dur Patch -) 0.2 mg TD DAILY [facility] Last Admin: 05/28/18 10:16 Dose: 0.2 mg Prasugrel (Effient -) 10 mg PO DAILY [facility] Last Admin: 05/28/18 10:09 Dose: 10 mg Propylthiouracil (Ptu -) 100 mg PO TID [facility] Last Admin: 05/29/18 06:40 Dose: 100 mg Rosuvastatin Calcium (Crestor -) 10 mg PO HS [facility] Last Admin: 05/28/18 22:07 Dose: 10 mg - Objective Vital Signs: Vital Signs Temperature 98.3 F 05/29/18 05:33 Pulse Rate 110 H 05/29/18 05:33 Respiratory Rate 20 05/29/18 05:33 Blood Pressure 145/82 05/29/18 05:33 O2 Sat by Pulse Oximetry (%) 100 05/28/18 21:00 Constitutional: Yes: Well Nourished, Calm Eyes: Yes: WNL HENT: Yes: WNL Neck: Yes: WNL Cardiovascular: Yes: Tachycardia, S1, S2 Respiratory: Yes: Rales (FEW BIBASASILAR CRACKLES) Gastrointestinal: Yes: Normal Bowel Sounds, Soft Extremities: Yes: WNL Edema: Yes Labs: CBC, BMP Problem List - Problems (1) Acute on chronic heart failure Code(s): I50.9 - HEART FAILURE, UNSPECIFIED (2) CAD (coronary artery disease) Code(s): I25.10 - ATHSCL HEART DISEASE OF [place] CORONARY ARTERY W/O ANG PCTRS (3) CKD (chronic kidney disease) Code(s): N18.9 - CHRONIC KIDNEY DISEASE, UNSPECIFIED (4) KATINA (obstructive sleep apnea) Code(s): G47.33 - OBSTRUCTIVE SLEEP APNEA (ADULT) (PEDIATRIC) (5) ASHD (arteriosclerotic heart disease) Code(s): I25.10 - ATHSCL HEART DISEASE OF [place] CORONARY ARTERY W/O ANG PCTRS (6) CHF (congestive heart failure) Code(s): I50.9 - HEART FAILURE, UNSPECIFIED Qualifiers: Heart failure type: unspecified Heart failure chronicity: acute on chronic Qualified Code(s): I50.9 - Heart failure, unspecified (7) HLD (hyperlipidemia) Code(s): E78.5 - HYPERLIPIDEMIA, UNSPECIFIED (8) HTN (hypertension) Code(s): I10 - ESSENTIAL (PRIMARY) HYPERTENSION (9) IDDM (insulin dependent diabetes mellitus) Code(s): E11.9 - TYPE 2 DIABETES MELLITUS WITHOUT COMPLICATIONS; Z79.4 - LONG-TERM (CURRENT) USE OF INSULIN (10) Sleep apnea, obstructive Code(s): G47.33 - OBSTRUCTIVE SLEEP APNEA (ADULT) (PEDIATRIC) (11) Hypertensive urgency Code(s): I16.0 - HYPERTENSIVE URGENCY (12) Hyperthyroidism Code(s): E05.90 - THYROTOXICOSIS, UNSP WITHOUT THYROTOXIC CRISIS OR STORM (13) Pneumonia Code(s): J18.9 - PNEUMONIA, UNSPECIFIED ORGANISM (14) Thyrotoxicosis Code(s): E05.90 - THYROTOXICOSIS, UNSP WITHOUT THYROTOXIC CRISIS OR STORM Assessment/Plan IMP DYSPNEA IMPROVING CHF IMPROVING EFFUSION/ATELECTASIS S/P HYPERTENSIVE URGENCY TACHYCARDIA IMPROVING HYPERTHYROIDISM ACUTE ON CKD PULMONARY HTN DM OSAS ON CPAP [id number] ASHD S/P NSTEMI,S/P STENTS ASTHMA CHRONIC VENOUS INSUFFICIENCY R HYDRONEPHROSIS PLAN O2 LASIX NEEDED INHALED BRONCHODILATORS TITRATE BP MEDS RATE CONTROL BETA-BLOCKERS CPAP AT [employer]SULT[employer] LYTES,RENAL FUNCTION F/U CHEST X-RAYS DAILY WTS DR BENDER Problem List - Problems (1) Acute on chronic heart failure Code(s): I50.9 - HEART FAILURE, UNSPECIFIED (2) CAD (coronary artery disease) Code(s): I25.10 - ATHSCL HEART DISEASE OF [place] CORONARY ARTERY W/O ANG PCTRS (3) CKD (chronic kidney disease) Code(s): N18.9 - CHRONIC KIDNEY DISEASE, UNSPECIFIED (4) KATINA (obstructive sleep apnea) Code(s): G47.33 - OBSTRUCTIVE SLEEP APNEA (ADULT) (PEDIATRIC) (5) ASHD (arteriosclerotic heart disease) Code(s): I25.10 - ATHSCL HEART DISEASE OF [place] CORONARY ARTERY W/O ANG PCTRS (6) CHF (congestive heart failure) Code(s): I50.9 - HEART FAILURE, UNSPECIFIED Qualifiers: Heart failure type: unspecified Heart failure chronicity: acute on chronic Qualified Code(s): I50.9 - Heart failure, unspecified (7) HLD (hyperlipidemia) Code(s): E78.5 - HYPERLIPIDEMIA, UNSPECIFIED (8) HTN (hypertension) Code(s): I10 - ESSENTIAL (PRIMARY) HYPERTENSION (9) IDDM (insulin dependent diabetes mellitus) Code(s): E11.9 - TYPE 2 DIABETES MELLITUS WITHOUT COMPLICATIONS; 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
--- NOTE | 2018-05-29 08:28 | PN ---
Progress Note, Physician Chief Complaint: palpitations History of Present Illness: palpitations resolved no sob today fluid in stomach feeling resolved no cp no cigs - Current Medication List Current Medications: Active Medications Acetaminophen (Tylenol Oral Solution -) 650 mg PO Q6H PRN PRN Reason: PAIN Last Admin: 05/27/18 17:36 Dose: 650 mg Albuterol Sulfate (Ventolin 0.083% Nebulizer Soln -) 1 amp NEB Q4H PRN PRN Reason: SHORT OF BREATH/WHEEZING Last Admin: 05/28/18 21:55 Dose: 1 amp Aspirin (Asa -) 81 mg PO DAILY [facility] Last Admin: 05/28/18 10:07 Dose: 81 mg Carvedilol (Coreg Cr -) 10 mg PO DAILY [facility] Last Admin: 05/28/18 10:08 Dose: 10 mg Clonazepam (Klonopin -) 0.5 mg PO Q6H PRN PRN Reason: ANXIETY Last Admin: 05/27/18 23:08 Dose: 0.5 mg Ezetimibe (Zetia -) 10 mg PO Q48H [facility] Last Admin: 05/27/18 22:59 Dose: 10 mg Ferrous Sulfate (Feosol -) 325 mg PO BID [facility] Last Admin: 05/28/18 22:07 Dose: 325 mg Heparin Sodium (Porcine) (Heparin -) 5,000 unit SQ TID [facility] Last Admin: 05/29/18 06:40 Dose: 5,000 unit Hydralazine HCl (Apresoline -) 37.5 mg PO TID [facility] Last Admin: 05/29/18 06:41 Dose: 37.5 mg Insulin Aspart (Novolog Vial Sliding Scale -) 1 vial SQ [facility]; Protocol Last Admin: 05/29/18 06:40 Dose: Not Given Insulin Detemir (Levemir Vial) 30 units SQ HS [facility] Last Admin: 05/28/18 22:01 Dose: Not Given Metoprolol Succinate (Toprol Xl -) 25 mg PO DAILY [facility] Last Admin: 05/28/18 10:08 Dose: 25 mg Nitroglycerin (Nitro-Dur Patch -) 0.2 mg TD DAILY [facility] Last Admin: 05/28/18 10:16 Dose: 0.2 mg Prasugrel (Effient -) 10 mg PO DAILY [facility] Last Admin: 05/28/18 10:09 Dose: 10 mg Propylthiouracil (Ptu -) 100 mg PO TID [facility] Last Admin: 05/29/18 06:40 Dose: 100 mg Rosuvastatin Calcium (Crestor -) 10 mg PO HS [facility] Last Admin: 05/28/18 22:07 Dose: 10 mg - Objective Vital Signs: Vital Signs Temperature 98.4 F 05/29/18 08:20 Pulse Rate 116 H 05/29/18 08:20 Respiratory Rate 18 05/29/18 08:20 Blood Pressure 141/80 05/29/18 08:20 O2 Sat by Pulse Oximetry (%) 100 05/29/18 08:19 Constitutional: Yes: No Distress, Calm Eyes: No: Sclera Icterus HENT: No: Nasal Congestion Cardiovascular: Yes: Regular Rate and Rhythm, JVD, S1, S2, Other (PMI non diplaced). No: Gallop, Murmur Respiratory: Yes: CTA Bilaterally, Wheezes. No: Accessory Muscle Use Gastrointestinal: Yes: Normal Bowel Sounds, Soft. No: Tenderness Musculoskeletal: Yes: Other (No kyphosis) Extremities: No: Cold Edema: Yes (nonpitting (stockings)) Integumentary: No: Jaundice Neurological: Yes: Alert, Oriented (x3) Psychiatric: No: Agitated Labs: CBC, BMP 05/28/18 06:00 Assessment/Plan ECG--sinus tach 138 bpm, nonspecific ST-T changes CT chest: small bilat effusions with atx. o/w clear lungs. R sided hydronephrosis [facility] 2014: unchanged 70-80% distal RCA lesion. patent mLAD stent. 80-90% pLCX-- [facility] KAREN Echo 12/2016: TDS. nl LV size/EF. mild LVH. grade 2 d.d., hi E/e' = high LAP. nl RV. mild LAE. mild-mod MR, mod TR. mild pHTN (46 mmHg). tele: sinus 80s-90s, abrupt incr in HR to 110s = ? PAT vs sinus tach acute on chronic diast CHF: -exacerbated recently by uncontrolled hyperthyroidism with tachycardia (and htn) -new dry wt due to hyperthyroid-related wt loss. has been 221-225 at home -BP and HR control as doing (as med intolerances allow) -torsemide on hold here (was taking 40mg qd at home recently) -05/28: feeling her usual chf sx's here, JVD on exam, small pleural effusions. lasix 40 IV x 1 today -05/29: wt down 2 lbs today. creat stable. JVD persists, other chf sx's improved. will give lasix 80 iv x 1 today -habitus, chronic sob from asthma, advanced CKD makes clinical assessment of HF status very challenging--pt previously declined cardiomems invasive PAP monitor sinus tach, palpitations, thyrotoxicosis: -remote h/o intolerance to metoprolol, atenolol, ? 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 changed to atenolol yesterday by hospitalist. -also initiated low dose diltiazem (30 tid) recently as outpt to help control HR --she stopped it for nausea though was not sure if the sx was due to methimazole or diltiazem. then diffuse pruritus but ? if was due to anti-emetic she took. -resumed baseline coreg CR 10mg (also for BP control). change atenolol to trial of metoprolol succinate 25 qd to help control tachycardia until thyroid status improves (unusual pt requires unusual drug combinations) -05/29: HR remains mildly tachy at times (110s), ? PAT (subtle change in p wave seen on tele, with fairly abrupt incr in HR) vs sinus tach. -continue same meds for now, cont tele. -defer diltiazem re-trial. labile HTN: -prior reasonable control, lost of late due to hyperthyroidism which was initially untreated for several weeks -mult med intolerances in past -change hydral 50 tid back to 37.5 tid (intolerable reflex tachycardia/ palpitations on 50mg dose in past) -resumed coreg CR 10mg -bp controlled CAD, prior NSTEMI/PCI: -non-ischemic ECG here (ST-Ts likely rate-related). trop 0.3 x 2 intermediate range, flat trend--consistent with chronic elevation from pt with known chronically elevated filling pressures, ? contribution from tachycardia as well -cont home DAPT (aspirin/effient), statin with zetia, bb CKD: -baseline creat runs 2.5-2.8 -renal fxn presently slightly worse -R sided hydronephrosis on CT scan--per renal +/- mod-severe asthma, frequent exacerbations: -have downtitrated b-isrrael (previously coreg CR) to minimal tolerated dose ( requires for BP and tachycardia control)--was on coreg CR 10mg -bb changed recently to control tachycardia in setting of thyrotoxicosis -airways tx per pulmonary HPL: -intolerant of mult statins -LDL at baseline is >200 -well controlled on home rosuvastatin plus zetia regimen with LDL near 100-120 chronic anemia: -baseline hgb runs 9s-10s. counts stable here. DM: -per hospitalist
[2018-05-29 08:49] LABS: ANION GAP 10 (8-16); BLOOD UREA NITROGEN 62 mg/dL (7-18); CALCIUM 8.6 mg/dL (8.5-10.1); CHLORIDE 104 mmol/L (98-107); CO2 26 mmol/L (21-32); GLUCOSE,RANDOM 110 mg/dL (74-106); POTASSIUM 4.4 mmol/L (3.5-5.1); SODIUM 140 mmol/L (136-145)
--- NOTE | 2018-05-29 09:44 | PN ---
Progress Note (short form) - Note Progress Note: Renal follow up for CKD Pt seen and examined at the bedside awake and alert abd distension/fluid feels improved today making more urine with IV lasix no sob, chest pain cough persists Vital Signs Temperature 98.4 F 05/29/18 08:20 Pulse Rate 116 H 05/29/18 08:20 Respiratory Rate 18 05/29/18 08:20 Blood Pressure 141/80 05/29/18 08:20 O2 Sat by Pulse Oximetry (%) 100 05/29/18 08:19 Intake & Output 05/26/18 05/27/18 05/28/18 05/29/18 23:59 23:59 23:59 23:59 Intake Total 740 320 Output Total 200 Balance 740 120 Weight 98.611 kg 98.883 kg 98.974 kg 98.157 kg NAD awake and alert MMM RRR Dec BS + distension, no tenderness + edema in LE CBC, BMP 05/28/18 06:00 05/29/18 06:20 Current Medications Acetaminophen (Tylenol Oral Solution -) 650 mg PO Q6H PRN PRN Reason: PAIN Last Admin: 05/27/18 17:36 Dose: 650 mg Albuterol Sulfate (Ventolin 0.083% Nebulizer Soln -) 1 amp NEB Q4H PRN PRN Reason: SHORT OF BREATH/WHEEZING Last Admin: 05/28/18 21:55 Dose: 1 amp Aspirin (Asa -) 81 mg PO DAILY [facility] Last Admin: 05/28/18 10:07 Dose: 81 mg Carvedilol (Coreg Cr -) 10 mg PO DAILY [facility] Last Admin: 05/28/18 10:08 Dose: 10 mg Clonazepam (Klonopin -) 0.5 mg PO Q6H PRN PRN Reason: ANXIETY Last Admin: 05/27/18 23:08 Dose: 0.5 mg Ezetimibe (Zetia -) 10 mg PO Q48H [facility] Last Admin: 05/27/18 22:59 Dose: 10 mg Ferrous Sulfate (Feosol -) 325 mg PO BID [facility] Last Admin: 05/28/18 22:07 Dose: 325 mg Heparin Sodium (Porcine) (Heparin -) 5,000 unit SQ TID [facility] Last Admin: 05/29/18 06:40 Dose: 5,000 unit Hydralazine HCl (Apresoline -) 37.5 mg PO TID [facility] Last Admin: 05/29/18 06:41 Dose: 37.5 mg Insulin Aspart (Novolog Vial Sliding Scale -) 1 vial SQ [facility]; Protocol Last Admin: 05/29/18 06:40 Dose: Not Given Insulin Detemir (Levemir Vial) 30 units SQ [facility] Last Admin: 05/28/18 22:01 Dose: Not Given Metoprolol Succinate (Toprol Xl -) 25 mg PO DAILY [facility] Last Admin: 05/28/18 10:08 Dose: 25 mg Nitroglycerin (Nitro-Dur Patch -) 0.2 mg TD DAILY [facility] Last Admin: 05/28/18 10:16 Dose: 0.2 mg Prasugrel (Effient -) 10 mg PO DAILY [facility] Last Admin: 05/28/18 10:09 Dose: 10 mg Propylthiouracil (Ptu -) 100 mg PO TID [facility] Last Admin: 05/29/18 06:40 Dose: 100 mg Rosuvastatin Calcium (Crestor -) 10 mg PO [facility] Last Admin: 05/28/18 22:07 Dose: 10 mg 63 year old woman with PMhx of CKD stage 4 (baseline Cr 2.5-3), Recently diagnosed hyperthyroidism, Hypertension, D-HF, DM type 2, HLD, CAD, CABG, Asthma , PAFib who presented with tachycardia and found to have acute thyrotoxicosis and Cr of 3 with right hydronephrosis. #CKD Stage 4 #Right hydronephrosis #Thyrotoxicosis #Hypertension #Anemia Renal function unchanged at this time and pt with signs of volume expansion continue IV diuresis as per cardiology Trend BUN/Cr and electrolytes hopefully renal scan tomorrow to r/o functional obstruction check iron studies in regards to anemia Will follow Goyo Cid DO
[2018-05-29] MEDS: CARVEDILOL PHOSPHATE CR 10 MG CAPSULE PO SCH (09:50)
[2018-05-29] MEDS: FERROUS SO4 325 MG TABLET (FP) PO SCH ×2 (09:50→21:25)
[2018-05-29] MEDS: ASPIRIN 81 MG CHEWABLE TABLETS PO SCH (09:50)
[2018-05-29] MEDS: NITROGLYCERIN 0.2 MG/HOUR TD PATCH TD SCH (09:50)
[2018-05-29] MEDS: metoPROLOL SUCCINATE 25 MG TAB.SR.24H (FP) PO SCH (09:50)
[2018-05-29] MEDS: PRASUGREL HCL 10 MG TAB PO SCH (09:50)
[2018-05-29] MEDS: FUROSEMIDE 40 MG/4 ML INJECTABLE VIAL IVPUSH ONE ×2 (10:35→10:44)
[2018-05-29] MEDS ORDERED: FUROSEMIDE 40 MG/4 ML INJECTABLE VIAL IVPUSH ONE (11:25)
--- NOTE | 2018-05-29 15:41 | PN ---
Teaching Attending Note Name of Resident: Tayler Buchanan ATTENDING PHYSICIAN STATEMENT I saw and evaluated the patient. I reviewed the resident's note and discussed the case with the resident. I agree with the resident's findings and plan as documented. SUBJECTIVE:continues to feel like her abdomen feels distended. denies CP, SOB, fever, chills, N/v/C/D, palpitations OBJECTIVE: Last Vital Signs Temp Pulse Resp BP Pulse Ox 98.6 F 107 H 20 142/82 100 05/29/18 13:36 05/29/18 13:36 05/29/18 13:36 05/29/18 13:36 05/29/18 08:19 Intake & Output 05/26/18 05/27/18 05/28/18 05/29/18 23:59 23:59 23:59 23:59 Intake Total 740 320 Output Total 200 Balance 740 120 Weight 217 lb 6.4 oz 218 lb 218 lb 3.2 oz 216 lb 6.4 oz General NAd CV S1 S2 tachy Lungs CTA B/L no wheezing Abdomen soft NT/ND extremities 1+ pitting edema ASSESSMENT AND PLAN: 62-year-old woman with a history of chronic diastolic heart failure, type 2 DM, HTN, hyperlipidemia, CAD, CABG, asthma, KATINA, anxiety, pulm HTN, PAF who presented to the ER with palpitations and found to be acute thyrotoxicosis 1. acute thyrotoxicosis- elevated FT4. on PTU. endocrine consulted. plan for radioactive iodine as outpatient. 2. Sinus tachycardia- due to acute thyrotoxicosis state. remains tachycardic. adjustments per cardio. will need to monitor respiratory status closely 3. Acute on chronic diastolic CHF- remains volume overload. lasix 80mg x1 given. strict I&O, daily weights. cardio on baord 4. LLL atelectasis vs infiltrate- low clinical suspicion for PNA as afebrile and leukocytosis. holding abx at this time. CT chest done and negative for infiltrate/consolidation 5. R hydronephrosis- u/s showing worsening from previous. 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 nephro consulted. plan for NM renal scan tomorrow to evaluate if functional or not. 6. HTN- improved. cont current management 7. anemia of chronic disease- Hgb at baseline. no indication for transfusion. recent iron studies noted. 8. DM- continue home medications. iss,bgm, diabetic diet 9. CAD s/p 2 stents- on prasugrel. cont medication 10. PAF- been in sinus rhythm. sinus noted on monitor and EKG.not on anticoagulation. continuous cardiac monitoring 11. Acute on CKD- as per cardio baseline is 2.6-2.8. likely pre-renal. started on diuretics. will monitor 12. COPD- no wheezing at this time. hold steroids.cont inhalers. pulmonary consulted 13. DVT ppx- hep sq
[2018-05-29] MEDS: EZETIMIBE 10 MG TABLET (FP) PO SCH (18:50)
--- NOTE | 2018-05-29 18:56 | PN ---
Physical Exam: SUBJECTIVE: Patient seen and examined at bedside this morning. Patient continues to have Irregular, tachycardic pulses. Patient also refuses to wear bipap overnight. Patient complains of cough productive of clear phlegm. Additionally, patient says her LE Edema is causing her ankle pain. No other acute overnight events. Denies chest pain, SOB, nausea, vomiting, fever. OBJECTIVE: Vital Signs Period Temp Pulse Resp BP Sys/Shankar Pulse Ox Last 24 Hr 98.3 F-98.6 F 107-116 18-20 141-145/80-82 100-100 Vital Signs Temp 98.6 F 05/29/18 13:36 Pulse 107 H 05/29/18 13:36 Resp 20 05/29/18 13:36 BP 142/82 05/29/18 13:36 Pulse Ox 100 05/29/18 08:19 Intake & Output 05/28/18 05/29/18 05/29/18 23:59 11:59 23:59 Intake Total 320 Output Total 200 Balance 120 Weight 98.157 kg Intake: IV 20 SALINE LOCK 20 Oral 300 Output: Urine 200 Void 200 Other: Voiding Method Toilet Toilet Toilet Bowel Movement No Weight Measurement Method Standing Scale GENERAL: AoX3, in no acute distress. LUNGS: Breath sounds equal, Wheezing heard throughout, no crackles. HEART: Tachycardic, Irregular rhythm, S1, S2 without murmur, rub or gallop. ABDOMEN: Soft, nontender, nondistended, + bowel sounds EXTREMITIES: 2+ pitting edema Laboratory Results - last 24 hr 05/28/18 05/29/18 05/29/18 22:00 06:20 06:36 Sodium 140 Potassium 4.4 Chloride 104 Carbon Dioxide 26 Anion Gap 10 BUN 62 H Creatinine 3.0 H Creat Clearance w eGFR 15.76 POC Glucometer 145 120 Random Glucose 110 H Calcium 8.6 Free T4 2.11 H 05/29/18 05/29/18 05/29/18 09:43 10:48 16:22 Sodium Potassium Chloride Carbon Dioxide Anion Gap BUN Creatinine Creat Clearance w eGFR POC Glucometer 194 135 Random Glucose Calcium Free T4 Cancelled Active Medications Acetaminophen (Tylenol Oral Solution -) 650 mg PO Q6H PRN PRN Reason: PAIN Last Admin: 05/27/18 17:36 Dose: 650 mg Albuterol Sulfate (Ventolin 0.083% Nebulizer Soln -) 1 amp NEB Q4H PRN PRN Reason: SHORT OF BREATH/WHEEZING Last Admin: 05/29/18 07:35 Dose: 1 amp Aspirin (Asa -) 81 mg PO DAILY [facility] Last Admin: 05/29/18 09:50 Dose: 81 mg Carvedilol (Coreg Cr -) 10 mg PO DAILY [facility] Last Admin: 05/29/18 09:50 Dose: 10 mg Clonazepam (Klonopin -) 0.5 mg PO Q6H PRN PRN Reason: ANXIETY Last Admin: 05/27/18 23:08 Dose: 0.5 mg Ezetimibe (Zetia -) 10 mg PO Q48H [facility] Last Admin: 05/29/18 18:50 Dose: 10 mg Ferrous Sulfate (Feosol -) 325 mg PO BID [facility] Last Admin: 05/29/18 09:50 Dose: 325 mg Heparin Sodium (Porcine) (Heparin -) 5,000 unit SQ TID [facility] Last Admin: 05/29/18 13:28 Dose: 5,000 unit Hydralazine HCl (Apresoline -) 37.5 mg PO TID [facility] Last Admin: 05/29/18 13:28 Dose: 37.5 mg Insulin Aspart (Novolog Vial Sliding Scale -) 1 vial SQ [facility]; Protocol Last Admin: 05/29/18 16:25 Dose: Not Given Insulin Detemir (Levemir Vial) 30 units SQ [facility] Last Admin: 05/28/18 22:01 Dose: Not Given Metoprolol Succinate (Toprol Xl -) 25 mg PO DAILY [facility] Last Admin: 05/29/18 09:50 Dose: 25 mg Nitroglycerin (Nitro-Dur Patch -) 0.2 mg TD DAILY [facility] Last Admin: 05/29/18 09:50 Dose: 0.2 mg Prasugrel (Effient -) 10 mg PO DAILY [facility] Last Admin: 05/29/18 09:50 Dose: 10 mg Propylthiouracil (Ptu -) 100 mg PO TID [facility] Last Admin: 05/29/18 13:29 Dose: 100 mg Rosuvastatin Calcium (Crestor -) 10 mg PO [facility] Last Admin: 05/28/18 22:07 Dose: 10 mg ASSESSMENT/PLAN: 62 y/o F with a PMHx of chronic diastolic heart failure, T2DM, HTN, hyperlipidemia, CAD, CABG, asthma, KATINA, anxiety, pulm HTN, PAF who presented to the ER with palpitations and found to be in acute thyrotoxicosis 1. Acute thyrotoxicosis - Elevated FT4, will Trend Free T4 - Started On PTU 100 mg PO TID - Dr. Gonsales consulted, will plan for radioactive iodine as outpatient. Will speak to him tomorrow regarding free T4 Goal and whether to continue PTU 2. Sinus tachycardia - Due to acute thyrotoxicosism remains irregular and tachycardic - Cardio was consulted - Continue Coreg 10 mg PO DAILY - Continue Metoprolol Succinate 25 mg PO DAILY - Will monitor respiratory status as patient has hx of Asthma 3. Acute on chronic diastolic CHF - Lasix 40 IV x 1 given on 05/28 - Remains volume overloaded, will give lasix 80 IV x 1 today - Strict I&O, daily weights - Will monitor BMP, Mag and Phos 4. LLL atelectasis vs infiltrate - ABx held as patient remains afebrile and without white count - CT chest: Bilateral lower lobe atelectasis and small pleural effusions. There is no evidence of pneumonia or acute pathology within the chest. 5. 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 - Nephrology consulted, will plan for Nuclear renal scan tomorrow 6. HTN - Improved, will continue current management - Cardio was consulted, appreciate recommendations 7. Anemia of chronic disease - Hgb at baseline - Continue Ferrous Sulfate 325 mg PO BID 8. DM - Continue Insulin Aspart SQ ACHS [facility] - Continue Insulin Detemir 30 units SQ HS [facility] - Diabetic diet 9. CAD s/p 2 stents - Continue Prasugrel 10 mg PO DAILY 10. PAF - ECG (05/25/18): Sinus tachycardia 138 bpm, Possible Left atrial enlargement, T Wave abnormality - Tele monitor showed sinus with HR 113-124. - Currently not on anticoagulation 11. Asthma - Wheezing heard throughout - Continue Albuterol Sulfate 1 amp NEB Q4H PRN - Pulmonary consulted 12. DVT ppx - Heparin 5,000 unit SQ TID [facility] Visit type - Emergency Visit Emergency Visit: Yes ED Registration Date: 05/25/18 Care time: The patient presented to the Emergency Department on the above date and was hospitalized for further evaluation of their emergent condition. - New Patient This patient is new to me today: Yes Date on this admission: 05/29/18 - Critical Care Critical Care patient: No - Discharge Referral Referred to [facility] No
[2018-05-29] MEDS: ROSUVASTATIN CA 10 MG TABLET (FP) PO SCH (21:25)
[2018-05-29] MEDS: INSULIN (LEVEMIR) 100 UNITS/ML UNITS SQ SCH (21:26)
[2018-05-29] MEDS: clonazePAM 0.5 MG TABLET PO PRN (21:28)
--- NOTE | 2018-05-30 00:07 | PN ---
Progress Note, Physician Chief Complaint: reports feeling better History of Present Illness: hyperthyroidism,chf,svt,diabetes mellitus,ckd, - Current Medication List Current Medications: Active Medications Acetaminophen (Tylenol Oral Solution -) 650 mg PO Q6H PRN PRN Reason: PAIN Last Admin: 05/27/18 17:36 Dose: 650 mg Albuterol Sulfate (Ventolin 0.083% Nebulizer Soln -) 1 amp NEB Q4H PRN PRN Reason: SHORT OF BREATH/WHEEZING Last Admin: 05/29/18 20:26 Dose: 1 amp Aspirin (Asa -) 81 mg PO DAILY [facility] Last Admin: 05/29/18 09:50 Dose: 81 mg Carvedilol (Coreg Cr -) 10 mg PO DAILY [facility] Last Admin: 05/29/18 09:50 Dose: 10 mg Clonazepam (Klonopin -) 0.5 mg PO Q6H PRN PRN Reason: ANXIETY Last Admin: 05/29/18 21:28 Dose: 0.5 mg Ezetimibe (Zetia -) 10 mg PO Q48H [facility] Last Admin: 05/29/18 18:50 Dose: 10 mg Ferrous Sulfate (Feosol -) 325 mg PO BID [facility] Last Admin: 05/29/18 21:25 Dose: 325 mg Heparin Sodium (Porcine) (Heparin -) 5,000 unit SQ TID [facility] Last Admin: 05/29/18 21:26 Dose: 5,000 unit Hydralazine HCl (Apresoline -) 37.5 mg PO TID [facility] Last Admin: 05/29/18 21:24 Dose: 37.5 mg Insulin Aspart (Novolog Vial Sliding Scale -) 1 vial SQ [facility]; Protocol Last Admin: 05/29/18 21:27 Dose: Not Given Insulin Detemir (Levemir Vial) 30 units SQ HS [facility] Last Admin: 05/29/18 21:26 Dose: 12 units Metoprolol Succinate (Toprol Xl -) 25 mg PO DAILY [facility] Last Admin: 05/29/18 09:50 Dose: 25 mg Nitroglycerin (Nitro-Dur Patch -) 0.2 mg TD DAILY [facility] Last Admin: 05/29/18 09:50 Dose: 0.2 mg Prasugrel (Effient -) 10 mg PO DAILY [facility] Last Admin: 05/29/18 09:50 Dose: 10 mg Rosuvastatin Calcium (Crestor -) 10 mg PO HS [facility] Last Admin: 05/29/18 21:25 Dose: 10 mg - Objective Vital Signs: Vital Signs Temperature 98.5 F 05/29/18 22:00 Pulse Rate 80 05/29/18 22:00 Respiratory Rate 20 05/29/18 22:00 Blood Pressure 129/67 05/29/18 22:00 O2 Sat by Pulse Oximetry (%) 96 05/29/18 21:00 Constitutional: Yes: Well Nourished, Calm Eyes: Yes: EOM Intact HENT: Yes: Normocephalic Neck: Yes: Trachea Midline Cardiovascular: Yes: Regular Rate and Rhythm Respiratory: Yes: CTA Bilaterally Gastrointestinal: Yes: Normal Bowel Sounds ...Rectal Exam: Yes: Deferred Musculoskeletal: Yes: WNL Extremities: Yes: WNL Neurological: Yes: Alert, Oriented Labs: CBC, BMP 05/28/18 06:00 05/29/18 06:20 Problem List - Problems (1) Hyperthyroidism Code(s): E05.90 - THYROTOXICOSIS, UNSP WITHOUT THYROTOXIC CRISIS OR STORM (2) Pneumonia Code(s): J18.9 - PNEUMONIA, UNSPECIFIED ORGANISM (3) Acute exacerbation of asthma with allergic rhinitis Code(s): J45.901 - UNSPECIFIED ASTHMA WITH (ACUTE) EXACERBATION (4) Acute on chronic heart failure Code(s): I50.9 - HEART FAILURE, UNSPECIFIED Assessment/Plan Current Active Problems Hypertensive urgency (Acute) Hyperthyroidism (Acute) Pneumonia (Acute) Thyrotoxicosis (Acute) Abnormal Lab Results 05/29/18 06:20 BUN 62 H Creatinine 3.0 H Random Glucose 110 H Free T4 2.11 H plan: ptu inc 150mg tid repeat tfts
[2018-05-30] MEDS: hydrALAZINE HCL 25 MG TABLET (FP) PO SCH ×3 (06:40→22:17)
[2018-05-30] MEDS: INSULIN SLIDING SCALE (NOVOLOG) 1 VIAL SQ SCH ×4 (06:40→22:18)
[2018-05-30] MEDS: HEPARIN NA (PORCINE) 5,000 UNITS/ML 1ML VIAL SQ SCH ×3 (06:41→22:18)
[2018-05-30] MEDS: PROPYLTHIOURACIL 50 MG TABLET (UD) PO SCH ×3 (06:41→22:17)
[2018-05-30 07:00] LABS: BLOOD UREA NITROGEN 60 mg/dL (7-18); CALCIUM 8.9 mg/dL (8.5-10.1); CO2 27 mmol/L (21-32); GLUCOSE,RANDOM 100 mg/dL (74-106); MAGNESIUM 2.1 mg/dL (1.8-2.4); PHOSPHOROUS 5.2 mg/dL (2.5-4.9)
[2018-05-30 07:04] LABS: BASO % 0.9 % (0-2.0); EOS % 3.9 % (0-4.5); HEMOGLOBIN 9.4 GM/dL (10.7-15.3); LYMPH % 37.2 % (8-40); MCH 24.6 pg (25.7-33.7); MCHC 32.4 g/dl (32.0-36.0); MEAN PLT VOLUME 8.5 fl (7.5-11.1); MONO % 11.4 % (3.8-10.2); NEUT % 46.6 % (42.8-82.8); PLATELET COUNT 247 K/MM3 (134-434); RBC 3.82 M/mm3 (3.60-5.2); RDW 14.1 % (11.6-15.6); WHITE BLOOD COUNT 5.8 K/mm3 (4.0-10.0)
[2018-05-30] MEDS: ALBUTEROL SO4 0.083% IH SOL 2.5 MG/3 ML VIAL.NEB. NEB PRN (07:54)
[2018-05-30 08:08] LABS: ANION GAP 10 (8-16); CHLORIDE 103 mmol/L (98-107); POTASSIUM 4.6 mmol/L (3.5-5.1); SODIUM 140 mmol/L (136-145)
[2018-05-30] MEDS ORDERED: PT OWN MED DRAWER 7, Y5N ONE ×2 (10:06→21:24)
--- NOTE | 2018-05-30 10:12 | PN ---
Progress Note, Physician History of Present Illness: pulmonary alert,episode of sob earlier - Current Medication List Current Medications: Active Medications Acetaminophen (Tylenol Oral Solution -) 650 mg PO Q6H PRN PRN Reason: PAIN Last Admin: 05/27/18 17:36 Dose: 650 mg Albuterol Sulfate (Ventolin 0.083% Nebulizer Soln -) 1 amp NEB Q4H PRN PRN Reason: SHORT OF BREATH/WHEEZING Last Admin: 05/30/18 07:54 Dose: 1 amp Aspirin (Asa -) 81 mg PO DAILY [facility] Last Admin: 05/29/18 09:50 Dose: 81 mg Carvedilol (Coreg Cr -) 10 mg PO DAILY [facility] Last Admin: 05/29/18 09:50 Dose: 10 mg Clonazepam (Klonopin -) 0.5 mg PO Q6H PRN PRN Reason: ANXIETY Last Admin: 05/29/18 21:28 Dose: 0.5 mg Ezetimibe (Zetia -) 10 mg PO Q48H [facility] Last Admin: 05/29/18 18:50 Dose: 10 mg Ferrous Sulfate (Feosol -) 325 mg PO BID [facility] Last Admin: 05/29/18 21:25 Dose: 325 mg Heparin Sodium (Porcine) (Heparin -) 5,000 unit SQ TID [facility] Last Admin: 05/30/18 06:41 Dose: Not Given Hydralazine HCl (Apresoline -) 37.5 mg PO TID [facility] Last Admin: 05/30/18 06:40 Dose: 37.5 mg Insulin Aspart (Novolog Vial Sliding Scale -) 1 vial SQ [facility]; Protocol Last Admin: 05/30/18 06:40 Dose: Not Given Insulin Detemir (Levemir Vial) 30 units SQ [facility] Last Admin: 05/29/18 21:26 Dose: 12 units Metoprolol Succinate (Toprol Xl -) 25 mg PO DAILY [facility] Last Admin: 05/29/18 09:50 Dose: 25 mg Nitroglycerin (Nitro-Dur Patch -) 0.2 mg TD DAILY [facility] Last Admin: 05/29/18 09:50 Dose: 0.2 mg Prasugrel (Effient -) 10 mg PO DAILY [facility] Last Admin: 05/29/18 09:50 Dose: 10 mg Propylthiouracil (Ptu -) 150 mg PO TID [facility] Last Admin: 05/30/18 06:41 Dose: 150 mg Rosuvastatin Calcium (Crestor -) 10 mg PO HS [facility] Last Admin: 05/29/18 21:25 Dose: 10 mg - Objective Vital Signs: Vital Signs Temperature 98.4 F 05/30/18 09:14 Pulse Rate 115 H 05/30/18 09:14 Respiratory Rate 20 05/30/18 09:14 Blood Pressure 142/78 05/30/18 09:14 O2 Sat by Pulse Oximetry (%) 96 05/30/18 09:00 Constitutional: Yes: Well Nourished, Calm Eyes: Yes: WNL HENT: Yes: WNL Neck: Yes: WNL Cardiovascular: Yes: Tachycardia, S1, S2 Respiratory: Yes: Wheezes (few scatttered jag wheezes) Gastrointestinal: Yes: Normal Bowel Sounds, Soft Extremities: Yes: WNL Edema: Yes Labs: CBC, BMP 05/30/18 05:30 05/30/18 05:30 Problem List - Problems (1) Acute on chronic heart failure Code(s): I50.9 - HEART FAILURE, UNSPECIFIED (2) CAD (coronary artery disease) Code(s): I25.10 - ATHSCL HEART DISEASE OF [place] CORONARY ARTERY W/O ANG PCTRS (3) CKD (chronic kidney disease) Code(s): N18.9 - CHRONIC KIDNEY DISEASE, UNSPECIFIED (4) KATINA (obstructive sleep apnea) Code(s): G47.33 - OBSTRUCTIVE SLEEP APNEA (ADULT) (PEDIATRIC) (5) ASHD (arteriosclerotic heart disease) Code(s): I25.10 - ATHSCL HEART DISEASE OF [place] CORONARY ARTERY W/O ANG PCTRS (6) CHF (congestive heart failure) Code(s): I50.9 - HEART FAILURE, UNSPECIFIED Qualifiers: Heart failure type: unspecified Heart failure chronicity: acute on chronic Qualified Code(s): I50.9 - Heart failure, unspecified (7) HLD (hyperlipidemia) Code(s): E78.5 - HYPERLIPIDEMIA, UNSPECIFIED (8) HTN (hypertension) Code(s): I10 - ESSENTIAL (PRIMARY) HYPERTENSION (9) IDDM (insulin dependent diabetes mellitus) Code(s): E11.9 - TYPE 2 DIABETES MELLITUS WITHOUT COMPLICATIONS; Z79.4 - SOFTWARE BUSINESS ANALYST (CURRENT) USE OF INSULIN (10) Sleep apnea, obstructive Code(s): G47.33 - OBSTRUCTIVE SLEEP APNEA (ADULT) (PEDIATRIC) (11) Hypertensive urgency Code(s): I16.0 - HYPERTENSIVE URGENCY (12) Hyperthyroidism Code(s): E05.90 - THYROTOXICOSIS, UNSP WITHOUT THYROTOXIC CRISIS OR STORM (13) Pneumonia Code(s): J18.9 - PNEUMONIA, UNSPECIFIED ORGANISM (14) Thyrotoxicosis Code(s): E05.90 - THYROTOXICOSIS, UNSP WITHOUT THYROTOXIC CRISIS OR STORM Assessment/Plan IMP DYSPNEA IMPROVING CHF IMPROVING EFFUSION/ATELECTASIS S/P HYPERTENSIVE URGENCY TACHYCARDIA IMPROVING HYPERTHYROIDISM ACUTE ON CKD PULMONARY HTN DM OSAS ON CPAP [id number] ASHD S/P NSTEMI,S/P STENTS ASTHMA CHRONIC VENOUS INSUFFICIENCY R HYDRONEPHROSIS PLAN O2 LASIX NEEDED ADD ASMANEX BID INHALED BRONCHODILATORS TITRATE BP MEDS RATE CONTROL BETA-BLOCKERS CPAP AT OUTSIDE OPERATOR LYTES,RENAL FUNCTION DAILY WTS DR BENDER Problem List - Problems (1) Acute on chronic heart failure Code(s): I50.9 - HEART FAILURE, UNSPECIFIED (2) CAD (coronary artery disease) Code(s): I25.10 - ATHSCL HEART DISEASE OF [place] CORONARY ARTERY W/O ANG PCTRS (3) CKD (chronic kidney disease) Code(s): N18.9 - CHRONIC KIDNEY DISEASE, UNSPECIFIED (4) KATINA (obstructive sleep apnea) Code(s): G47.33 - OBSTRUCTIVE SLEEP APNEA (ADULT) (PEDIATRIC) (5) ASHD (arteriosclerotic heart disease) Code(s): I25.10 - ATHSCL HEART DISEASE OF [place] CORONARY ARTERY W/O ANG PCTRS (6) CHF (congestive heart failure) Code(s): I50.9 - HEART FAILURE, UNSPECIFIED Qualifiers: Heart failure type: unspecified Heart failure chronicity: acute on chronic Qualified Code(s): I50.9 - Heart failure, unspecified (7) HLD (hyperlipidemia) Code(s): E78.5 - HYPERLIPIDEMIA, UNSPECIFIED (8) HTN (hypertension) Code(s): I10 - ESSENTIAL (PRIMARY) HYPERTENSION (9) IDDM (insulin dependent diabetes mellitus) Code(s): E11.9 - TYPE 2 DIABETES MELLITUS WITHOUT COMPLICATIONS; Z79.4 - MCC (CURRENT) USE OF INSULIN (10) Sleep apnea, obstructive Code(s): G47.33 - OBSTRUCTIVE SLEEP APNEA (ADULT) (PEDIATRIC) (11) Hypertensive urgency Code(s): I16.0 - HYPERTENSIVE URGENCY (12) Hyperthyroidism Code(s): E05.90 - THYROTOXICOSIS, UNSP WITHOUT THYROTOXIC CRISIS OR STORM (13) Pneumonia Code(s): J18.9 - PNEUMONIA, UNSPECIFIED ORGANISM (14) Thyrotoxicosis Code(s): E05.90 - THYROTOXICOSIS, UNSP WITHOUT THYROTOXIC CRISIS OR STORM
[2018-05-30] MEDS: FERROUS SO4 325 MG TABLET (FP) PO SCH ×2 (10:31→22:17)
[2018-05-30] MEDS: CARVEDILOL PHOSPHATE CR 10 MG CAPSULE PO SCH (10:31)
[2018-05-30] MEDS: ASPIRIN 81 MG CHEWABLE TABLETS PO SCH (10:31)
[2018-05-30] MEDS: metoPROLOL SUCCINATE 25 MG TAB.SR.24H (FP) PO SCH (10:32)
[2018-05-30] MEDS: PRASUGREL HCL 10 MG TAB PO SCH (10:32)
[2018-05-30] MEDS: NITROGLYCERIN 0.2 MG/HOUR TD PATCH TD SCH (10:33)
--- NOTE | 2018-05-30 11:30 | PN ---
Progress Note, Physician Chief Complaint: Coverage for Drs. Fontana/Alma Events noted Sinus tachycardia History of Present Illness: Patient was seen and examined. Awake and alert. Chart was reviewed Sinus tachycardia persists but HR better. Denies chest pain. SOB earlier this morning Feels better - Current Medication List Current Medications: Active Medications Acetaminophen (Tylenol Oral Solution -) 650 mg PO Q6H PRN PRN Reason: PAIN Last Admin: 05/27/18 17:36 Dose: 650 mg Albuterol Sulfate (Ventolin 0.083% Nebulizer Soln -) 1 amp NEB Q4H PRN PRN Reason: SHORT OF BREATH/WHEEZING Last Admin: 05/30/18 07:54 Dose: 1 amp Aspirin (Asa -) 81 mg PO DAILY [facility] Last Admin: 05/30/18 10:31 Dose: 81 mg Carvedilol (Coreg Cr -) 10 mg PO DAILY [facility] Last Admin: 05/30/18 10:31 Dose: 10 mg Clonazepam (Klonopin -) 0.5 mg PO Q6H PRN PRN Reason: ANXIETY Last Admin: 05/29/18 21:28 Dose: 0.5 mg Ezetimibe (Zetia -) 10 mg PO Q48H [facility] Last Admin: 05/29/18 18:50 Dose: 10 mg Ferrous Sulfate (Feosol -) 325 mg PO BID [facility] Last Admin: 05/30/18 10:31 Dose: 325 mg Heparin Sodium (Porcine) (Heparin -) 5,000 unit SQ TID [facility] Last Admin: 05/30/18 06:41 Dose: Not Given Hydralazine HCl (Apresoline -) 37.5 mg PO TID [facility] Last Admin: 05/30/18 06:40 Dose: 37.5 mg Insulin Aspart (Novolog Vial Sliding Scale -) 1 vial SQ ACHS [facility]; Protocol Last Admin: 05/30/18 11:09 Dose: Not Given Insulin Detemir (Levemir Vial) 30 units SQ HS [facility] Last Admin: 05/29/18 21:26 Dose: 12 units Metoprolol Succinate (Toprol Xl -) 25 mg PO DAILY [facility] Last Admin: 05/30/18 10:32 Dose: 25 mg Mometasone Furoate (Asmanex 220mcg -) 1 puff IH BID [facility] Nitroglycerin (Nitro-Dur Patch -) 0.2 mg TD DAILY [facility] Last Admin: 05/30/18 10:33 Dose: 0.2 mg Prasugrel (Effient -) 10 mg PO DAILY [facility] Last Admin: 05/30/18 10:32 Dose: 10 mg Propylthiouracil (Ptu -) 150 mg PO TID [facility] Last Admin: 05/30/18 06:41 Dose: 150 mg Rosuvastatin Calcium (Crestor -) 10 mg PO HS [facility] Last Admin: 05/29/18 21:25 Dose: 10 mg - Objective Vital Signs: Vital Signs Temperature 98.4 F 05/30/18 09:14 Pulse Rate 115 H 05/30/18 09:14 Respiratory Rate 20 05/30/18 09:14 Blood Pressure 142/78 05/30/18 09:14 O2 Sat by Pulse Oximetry (%) 96 05/30/18 09:00 Neck: Yes: Supple Cardiovascular: Yes: Regular Rate and Rhythm, Tachycardia, S1, S2 Respiratory: Yes: Diminished, Wheezes Gastrointestinal: Yes: Normal Bowel Sounds, Soft. No: Tenderness Edema: No Additional Findings/Remarks: - Review of Systems Constitutional: denies: Chills, Fever Cardiovascular: reports: Shortness of Breath. denies: Chest Pain, (+) Palpitations Respiratory: reports: Cough, SOB, SOB on Exertion. denies: Hemoptysis, PND Gastrointestinal: denies: Abdominal Pain, Constipation, Diarrhea, Melena, Nausea , Rectal Bleeding, Vomiting Genitourinary: denies: Dysuria, Hematuria Musculoskeletal: denies: Joint Pain Neurological: denies: Dizziness, Headache, Seizure, Syncope Labs: CBC, BMP 05/30/18 05:30 05/30/18 05:30 Problem List - Problems (1) Hypertensive urgency Code(s): I16.0 - HYPERTENSIVE URGENCY (2) Hyperthyroidism Code(s): E05.90 - THYROTOXICOSIS, UNSP WITHOUT THYROTOXIC CRISIS OR STORM (3) Thyrotoxicosis Code(s): E05.90 - THYROTOXICOSIS, UNSP WITHOUT THYROTOXIC CRISIS OR STORM (4) Acute on chronic heart failure Code(s): I50.9 - HEART FAILURE, UNSPECIFIED Qualifiers: Heart failure type: diastolic Qualified Code(s): I50.33 - Acute on chronic diastolic (congestive) heart failure (5) Acute on chronic kidney failure Code(s): N17.9 - ACUTE KIDNEY FAILURE, UNSPECIFIED; N18.9 - CHRONIC KIDNEY DISEASE, UNSPECIFIED (6) Acute pulmonary edema with congestive heart failure Code(s): I50.1 - LEFT VENTRICULAR FAILURE, UNSPECIFIED (7) Asthma exacerbation Code(s): J45.901 - UNSPECIFIED ASTHMA WITH (ACUTE) EXACERBATION Qualifiers: Asthma severity: unspecified severity Asthma persistence: unspecified Qualified Code(s): J45.901 - Unspecified asthma with (acute) exacerbation (8) CAD (coronary artery disease) Code(s): I25.10 - ATHSCL HEART DISEASE OF [place] CORONARY ARTERY W/O ANG PCTRS Qualifiers: Coronary Disease-Associated Artery/Lesion type: [place] artery [place] vs. transplanted heart: [place] heart Associated angina: without angina Qualified Code(s): I25.10 - Atherosclerotic heart disease of [place] coronary artery without angina pectoris (9) CKD (chronic kidney disease) Code(s): N18.9 - CHRONIC KIDNEY DISEASE, UNSPECIFIED (10) Elevated troponin Code(s): R74.8 - ABNORMAL LEVELS OF OTHER SERUM ENZYMES (11) Anemia Code(s): D64.9 - ANEMIA, UNSPECIFIED (12) HLD (hyperlipidemia) Code(s): E78.5 - HYPERLIPIDEMIA, UNSPECIFIED Qualifiers: Hyperlipidemia type: pure hypercholesterolemia Qualified Code(s): E78.00 - Pure hypercholesterolemia, unspecified; E78.0 - Pure hypercholesterolemia (13) HTN (hypertension) Code(s): I10 - ESSENTIAL (PRIMARY) HYPERTENSION Qualifiers: Hypertension type: essential hypertension Qualified Code(s): I10 - Essential (primary) hypertension (14) IDDM (insulin dependent diabetes mellitus) Code(s): E11.9 - TYPE 2 DIABETES MELLITUS WITHOUT COMPLICATIONS; Z79.4 - MCC (CURRENT) USE OF INSULIN (15) Sleep apnea, obstructive Code(s): G47.33 - OBSTRUCTIVE SLEEP APNEA (ADULT) (PEDIATRIC) Assessment/Plan 1. Acute on chronic diastolic LV failure 2. Sinus tachycardia 3. Thyrotoxicosis 4. HTN 5. CAD, history of NSTEMI, PCI/stent 6. CKD 7. DM 8. Hypercholesterolemia 9. Chronic anemia PLAN: 1. Consider uptitrating Metoprolol Succinate if tolerated and discontinue Coreg CR as they are both beta blockers. 2. Continue Hydralazine 3. Continue Crestor and Zetia 4. DAPT with ASA and Prasugrel 5. Continue PTU 6. Monitor renal function and electrolytes and monitor H/H 7. Bronchodilators Further plans are to follow Pa Goodwin MD
[2018-05-30] MEDS: MOMETASONE FUROATE 220 MCG/IH INHALER IH SCH ×2 (12:15→22:17)
--- NOTE | 2018-05-30 13:03 | PN ---
Progress Note, Physician Chief Complaint: The patient seen and examined in her room. SOB better. The feeling of palpitation still present. No chest pain. Endocrinology f/u noted. History of Present Illness: Patient admitted with Thyrotoxicosis, Fluid overload, and acute on Chronic Kidney failure. - Current Medication List Current Medications: Active Medications Acetaminophen (Tylenol Oral Solution -) 650 mg PO Q6H PRN PRN Reason: PAIN Last Admin: 05/27/18 17:36 Dose: 650 mg Albuterol Sulfate (Ventolin 0.083% Nebulizer Soln -) 1 amp NEB Q4H PRN PRN Reason: SHORT OF BREATH/WHEEZING Last Admin: 05/30/18 07:54 Dose: 1 amp Albuterol Sulfate (Ventolin 0.083% Nebulizer Soln -) 1 amp NEB Q1H [facility] Stop: 05/30/18 16:01 Aspirin (Asa -) 81 mg PO DAILY [facility] Last Admin: 05/30/18 10:31 Dose: 81 mg Carvedilol (Coreg Cr -) 10 mg PO DAILY [facility] Last Admin: 05/30/18 10:31 Dose: 10 mg Clonazepam (Klonopin -) 0.5 mg PO Q6H PRN PRN Reason: ANXIETY Last Admin: 05/29/18 21:28 Dose: 0.5 mg Ezetimibe (Zetia -) 10 mg PO Q48H [facility] Last Admin: 05/29/18 18:50 Dose: 10 mg Ferrous Sulfate (Feosol -) 325 mg PO BID [facility] Last Admin: 05/30/18 10:31 Dose: 325 mg Heparin Sodium (Porcine) (Heparin -) 5,000 unit SQ TID [facility] Last Admin: 05/30/18 06:41 Dose: Not Given Hydralazine HCl (Apresoline -) 37.5 mg PO TID [facility] Last Admin: 05/30/18 06:40 Dose: 37.5 mg Insulin Aspart (Novolog Vial Sliding Scale -) 1 vial SQ ACHS [facility]; Protocol Last Admin: 05/30/18 11:09 Dose: Not Given Insulin Detemir (Levemir Vial) 30 units SQ HS [facility] Last Admin: 05/29/18 21:26 Dose: 12 units Metoprolol Succinate (Toprol Xl -) 25 mg PO DAILY [facility] Last Admin: 05/30/18 10:32 Dose: 25 mg Mometasone Furoate (Asmanex 220mcg -) 1 puff IH BID [facility] Last Admin: 05/30/18 12:15 Dose: 1 puff Nitroglycerin (Nitro-Dur Patch -) 0.2 mg TD DAILY [facility] Last Admin: 05/30/18 10:33 Dose: 0.2 mg Prasugrel (Effient -) 10 mg PO DAILY [facility] Last Admin: 05/30/18 10:32 Dose: 10 mg Propylthiouracil (Ptu -) 150 mg PO TID [facility] Last Admin: 05/30/18 06:41 Dose: 150 mg Rosuvastatin Calcium (Crestor -) 10 mg PO HS [facility] Last Admin: 05/29/18 21:25 Dose: 10 mg - Objective Vital Signs: Vital Signs Temperature 98.4 F 05/30/18 09:14 Pulse Rate 115 H 05/30/18 09:14 Respiratory Rate 20 05/30/18 09:14 Blood Pressure 142/78 05/30/18 09:14 O2 Sat by Pulse Oximetry (%) 96 05/30/18 09:00 Constitutional: Yes: Anxious, Mild Distress Eyes: Yes: Conjunctiva Clear HENT: Yes: Normocephalic Neck: Yes: Supple, Trachea Midline Cardiovascular: Yes: Regular Rate and Rhythm, Tachycardia Respiratory: Yes: CTA Bilaterally, Diminished, Poor Air Entry Gastrointestinal: Yes: Normal Bowel Sounds, Soft, Abdomen, Obese Genitourinary: No: CVA Tenderness - Left, CVA Tenderness - Right Edema: Yes Edema: LLE: 2+, RLE: 2+ Labs: CBC, BMP 05/30/18 05:30 05/30/18 05:30 Problem List - Problems (1) Hypertensive urgency Code(s): I16.0 - HYPERTENSIVE URGENCY (2) Hyperthyroidism Code(s): E05.90 - THYROTOXICOSIS, UNSP WITHOUT THYROTOXIC CRISIS OR STORM (3) Thyrotoxicosis Code(s): E05.90 - THYROTOXICOSIS, UNSP WITHOUT THYROTOXIC CRISIS OR STORM (4) Acute exacerbation of asthma with allergic rhinitis Code(s): J45.901 - UNSPECIFIED ASTHMA WITH (ACUTE) EXACERBATION (5) Acute on chronic heart failure Code(s): I50.9 - HEART FAILURE, UNSPECIFIED Qualifiers: Heart failure type: diastolic Qualified Code(s): I50.33 - Acute on chronic diastolic (congestive) heart failure (6) Acute on chronic kidney failure Code(s): N17.9 - ACUTE KIDNEY FAILURE, UNSPECIFIED; N18.9 - CHRONIC KIDNEY DISEASE, UNSPECIFIED (7) Acute pulmonary edema with congestive heart failure Code(s): I50.1 - LEFT VENTRICULAR FAILURE, UNSPECIFIED (8) CAD (coronary artery disease) Code(s): I25.10 - ATHSCL HEART DISEASE OF [place] CORONARY ARTERY W/O ANG PCTRS Qualifiers: Coronary Disease-Associated Artery/Lesion type: [place] artery [place] vs. transplanted heart: [place] heart Associated angina: without angina Qualified Code(s): I25.10 - Atherosclerotic heart disease of [place] coronary artery without angina pectoris (9) Lymphedema Code(s): I89.0 - LYMPHEDEMA, NOT ELSEWHERE CLASSIFIED (10) Anemia Code(s): D64.9 - ANEMIA, UNSPECIFIED (11) Sleep apnea, obstructive Code(s): G47.33 - OBSTRUCTIVE SLEEP APNEA (ADULT) (PEDIATRIC) Assessment/Plan This is a 63 year old woman with PMhx of CKD stage 4 (baseline Cr 2.5-3), Recently diagnosed hyperthyroidism, Hypertension, Diastolic Heart failure, DM type 2, HLD, CAD, CABG, Asthma, Paroxysmal AFib who presented with tachycardia and found to have acute thyrotoxicosis and Cr of 3 with right hydronephrosis. Feeling better. Still quite tachycardic. ? increase Beta blockade. IV diuretics well tolerated. The risk of worsening azotemia will have to be accepted over profound heart failure in this patient with multiple medical problems, in using the high doses of loop diuretics. Thank you. Will monitor the renal functions with you. Tamara Garcia MD
[2018-05-30] MEDS: ALBUTEROL SO4 0.083% IH SOL 2.5 MG/3 ML VIAL.NEB. NEB SCH ×4 (13:31→16:06)
--- NOTE | 2018-05-30 14:01 | PN ---
Teaching Attending Note Name of Resident: Tayler Buchanan ATTENDING PHYSICIAN STATEMENT I saw and evaluated the patient. I reviewed the resident's note and discussed the case with the resident. I agree with the resident's findings and plan as documented. SUBJECTIVE:c/o non productive cough. improves with hot tea. continues to feel distended abdomen. Denies CP, fever, chills, dyspnea, N/V/C/D OBJECTIVE: Last Vital Signs Temp Pulse Resp BP Pulse Ox 98.4 F 115 H 20 142/78 96 05/30/18 09:14 05/30/18 09:14 05/30/18 09:14 05/30/18 09:14 05/30/18 09:00 Intake & Output 05/27/18 05/28/18 05/29/18 05/30/18 23:59 23:59 23:59 23:59 Intake Total 320 260 320 Output Total 200 Balance 120 260 320 Weight 218 lb 218 lb 3.2 oz 216 lb 6.4 oz 214 lb 9.6 oz General NAd CV S1 S2 tachy Lungs diffuse wheezing. decreased breath sounds, Abdomen soft NT/ND extremities 1+ pitting edema ASSESSMENT AND PLAN: 62-year-old woman with a history of chronic diastolic heart failure, type 2 DM, HTN, hyperlipidemia, CAD, CABG, asthma, KATINA, anxiety, pulm HTN, PAF who presented to the ER with palpitations and found to be acute thyrotoxicosis 1. acute thyrotoxicosis- elevated FT4. PTU titrated up yesterday. endocrine consulted. plan for radioactive iodine as outpatient. 2. Sinus tachycardia- due to acute thyrotoxicosis state. remains tachycardic on 2 beta blockers. will need to d/w cardio as pt is now having persistent cough which could be induced bronchospasms. 3. Acute on chronic diastolic CHF- remains volume overload. cont with lasix 80mg daily. strict I&O, daily weights. cardio on baord 4. LLL atelectasis vs infiltrate- low clinical suspicion for PNA as afebrile and leukocytosis. holding abx at this time. CT chest done and negative for infiltrate/consolidation 5. R hydronephrosis- u/s showing worsening from previous. 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 nephro consulted. plan for NM renal scan today to evaluate if functional or not. 6. HTN- improved. cont current management 7. anemia of chronic disease- Hgb at baseline. no indication for transfusion. recent iron studies noted. 8. DM- low sugar this AM. reduce levemir to 12 units. iss,bgm, diabetic diet 9. CAD s/p 2 stents- on prasugrel. cont medication 10. PAF- been in sinus rhythm. sinus noted on monitor and EKG.not on anticoagulation. continuous cardiac monitoring 11. Acute on CKD- as per cardio baseline is 2.6-2.8. likely pre-renal. started on diuretics. will monitor 12. COPD- + wheezing at this time. believe it to be exacerbated by double betablockers. will give neb now. and d/w cardio about adjusting.cont inhalers. pulmonary consulted 13. DVT ppx- hep sq
--- NOTE | 2018-05-30 17:20 | PN ---
Physical Exam: SUBJECTIVE: Patient seen and examined this morning at bedside. Patient feels much better, but has been coughing alot over night. Nursing gave her tea that seemed to calm the coughing spells. Patient requested a klonopine overnight to sleep. Denies fevers, chills, chest pain, SOB. OBJECTIVE: Vital Signs Period Temp Pulse Resp BP Sys/Shankar Pulse Ox Last 24 Hr 98.0 F-98.6 F 80-115 20-20 129-147/67-82 94-96 Vital Signs Temp 98.1 F 05/30/18 14:00 Pulse 84 05/30/18 14:00 Resp 20 05/30/18 09:14 BP 131/68 05/30/18 14:00 Pulse Ox 96 05/30/18 09:00 Intake & Output 05/29/18 05/30/18 05/30/18 23:59 11:59 23:59 Intake Total 260 560 Balance 260 560 Weight 97.341 kg Intake: IV 10 SALINE LOCK 10 Oral 250 560 Other: Voiding Method Toilet Toilet Toilet # Unmeasured Voids Void 1 2 Bowel Movement No Yes Weight Measurement Method Standing Scale GENERAL: The patient is awake, alert, and fully oriented, in no acute distress. LUNGS: Breath sounds equal, wheezes heard throughout HEART: Irregular pulse, S1, S2 without murmur, rub or gallop. ABDOMEN: Soft, nontender, distended, normoactive bowel sounds EXTREMITIES: 2+ lower extremity swelling Laboratory Results - last 24 hr 05/29/18 05/30/18 05/30/18 21:23 05:23 05:30 WBC 5.8 RBC 3.82 Hgb 9.4 L Hct 29.0 L MCV 76.0 L MCH 24.6 L MCHC 32.4 RDW 14.1 Plt Count 247 MPV 8.5 Absolute Neuts (auto) 2.7 Neutrophils % 46.6 Lymphocytes % 37.2 Monocytes % 11.4 H Eosinophils % 3.9 Basophils % 0.9 Nucleated RBC % 0 Sodium Potassium Chloride Carbon Dioxide Anion Gap BUN Creatinine Creat Clearance w eGFR POC Glucometer 200 108 Random Glucose Calcium Phosphorus Magnesium Free T4 05/30/18 05/30/18 05/30/18 05:30 05:30 11:05 WBC RBC Hgb Hct MCV MCH MCHC RDW Plt Count MPV Absolute Neuts (auto) Neutrophils % Lymphocytes % Monocytes % Eosinophils % Basophils % Nucleated RBC % Sodium 140 Potassium 4.6 Chloride 103 Carbon Dioxide 27 Anion Gap 10 BUN 60 H Creatinine 3.0 H Creat Clearance w eGFR 15.76 POC Glucometer 140 Random Glucose 100 Calcium 8.9 Phosphorus 5.2 H Magnesium 2.1 Free T4 2.12 H 05/30/18 16:52 WBC RBC Hgb Hct MCV MCH MCHC RDW Plt Count MPV Absolute Neuts (auto) Neutrophils % Lymphocytes % Monocytes % Eosinophils % Basophils % Nucleated RBC % Sodium Potassium Chloride Carbon Dioxide Anion Gap BUN Creatinine Creat Clearance w eGFR POC Glucometer 168 Random Glucose Calcium Phosphorus Magnesium Free T4 Active Medications Acetaminophen (Tylenol Oral Solution -) 650 mg PO Q6H PRN PRN Reason: PAIN Last Admin: 05/27/18 17:36 Dose: 650 mg Albuterol Sulfate (Ventolin 0.083% Nebulizer Soln -) 1 amp NEB Q4H PRN PRN Reason: SHORT OF BREATH/WHEEZING Last Admin: 05/30/18 07:54 Dose: 1 amp Aspirin (Asa -) 81 mg PO DAILY [facility] Last Admin: 05/30/18 10:31 Dose: 81 mg Clonazepam (Klonopin -) 0.5 mg PO Q6H PRN PRN Reason: ANXIETY Last Admin: 05/29/18 21:28 Dose: 0.5 mg Ezetimibe (Zetia -) 10 mg PO Q48H [facility] Last Admin: 05/29/18 18:50 Dose: 10 mg Ferrous Sulfate (Feosol -) 325 mg PO BID [facility] Last Admin: 05/30/18 10:31 Dose: 325 mg Heparin Sodium (Porcine) (Heparin -) 5,000 unit SQ TID [facility] Last Admin: 05/30/18 13:34 Dose: 5,000 unit Hydralazine HCl (Apresoline -) 37.5 mg PO TID [facility] Last Admin: 05/30/18 13:33 Dose: 37.5 mg Insulin Aspart (Novolog Vial Sliding Scale -) 1 vial SQ [facility]; Protocol Last Admin: 05/30/18 16:57 Dose: 2 units Insulin Detemir (Levemir Vial) [address] [facility] Metoprolol Succinate (Toprol Xl -) 25 mg PO DAILY [facility] Last Admin: 05/30/18 10:32 Dose: 25 mg Mometasone Furoate (Asmanex 220mcg -) 1 puff IH BID [facility] Last Admin: 05/30/18 12:15 Dose: 1 puff Nitroglycerin (Nitro-Dur Patch -) 0.2 mg TD DAILY [facility] Last Admin: 05/30/18 10:33 Dose: 0.2 mg Prasugrel (Effient -) 10 mg PO DAILY [facility] Last Admin: 05/30/18 10:32 Dose: 10 mg Propylthiouracil (Ptu -) 150 mg PO TID [facility] Last Admin: 05/30/18 13:35 Dose: 150 mg Rosuvastatin Calcium (Crestor -) 10 mg PO HS [facility] Last Admin: 05/29/18 21:25 Dose: 10 mg ASSESSMENT/PLAN: 62 y/o F with a PMHx of chronic diastolic heart failure, T2DM, HTN, hyperlipidemia, CAD, CABG, asthma, KATINA, anxiety, pulm HTN, PAF who presented to the ER with palpitations and found to be in acute thyrotoxicosis 1. Acute thyrotoxicosis - Elevated FT4, will Trend Free T4 - PTU tritated up to 150 mg PO TID - Dr. Gonsales consulted, will plan for radioactive iodine as outpatient. 2. Sinus tachycardia - Due to acute thyrotoxicosism remains irregular and tachycardic - Coughing spells occured overnight possibly due to induced bronchospasm. Cardio (Dr. Goodwin) was consulted: Consider uptitrating Metoprolol Succinate if tolerated and discontinue Coreg CR as they are both beta blockers. - Discontinued Coreg 10 mg PO DAILY - Continue Metoprolol Succinate 25 mg PO DAILY - Will monitor respiratory status as patient has hx of Asthma 3. Acute on chronic diastolic CHF - Lasix 40 IV x 1 given on 05/28 - Remains volume overloaded, will give lasix 80 IV x 1 today - Strict I&O, daily weights - Will monitor BMP, Mag and Phos 4. LLL atelectasis vs infiltrate - ABx held as patient remains afebrile and without white count - CT chest: Bilateral lower lobe atelectasis and small pleural effusions. There is no evidence of pneumonia or acute pathology within the chest. 5. 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 - Nuclear renal: Overall mild delay in perfusion, uptake and excretion by both kidneys with cortical retention of tracer suggestive of an element of medical renal disease such as ATN. Dilated right renal pelvis with scintigraphic findings commensurate with outlet obstruction. Left kidney contributing to 57% and right kidney to 43% of the total renal function. 6. HTN - Improved, will continue current management - Cardio was consulted, appreciate recommendations 7. Anemia of chronic disease - Hgb at baseline - Continue Ferrous Sulfate 325 mg PO BID 8. DM - Continue Insulin Aspart SQ ACHS [facility] - Insulin Detemir decreased to 12 units SQ HS [facility] - Diabetic diet 9. CAD s/p 2 stents - Continue Prasugrel 10 mg PO DAILY 10. PAF - ECG (05/25/18): Sinus tachycardia 138 bpm, Possible Left atrial enlargement, T Wave abnormality - Tele monitor showed sinus with HR 110-120. - Currently not on anticoagulation 11. Asthma - Wheezing heard throughout possibly due to bronchospams 2/2 beta [place] use. - Cardio consulted, appreciate recomendations - Continue Albuterol Sulfate 1 amp NEB Q4H PRN - Pulmonary consulted 12. DVT ppx - Heparin 5,000 unit SQ TID [facility] Visit type - Emergency Visit Emergency Visit: No - New Patient This patient is new to me today: No - Critical Care Critical Care patient: No
[2018-05-30] MEDS: ROSUVASTATIN CA 10 MG TABLET (FP) PO SCH (22:17)
[2018-05-30] MEDS: INSULIN (LEVEMIR) 100 UNITS/ML UNITS SQ SCH (22:18)
[2018-05-30] MEDS: clonazePAM 0.5 MG TABLET PO PRN (22:23)
[2018-05-31] MEDS ORDERED: PT OWN MED DRAWER 7, Y5N ONE ×3 (05:08→21:37)
[2018-05-31] MEDS: PROPYLTHIOURACIL 50 MG TABLET (UD) PO SCH ×3 (05:18→21:12)
[2018-05-31] MEDS: hydrALAZINE HCL 25 MG TABLET (FP) PO SCH ×3 (05:18→21:11)
[2018-05-31] MEDS: HEPARIN NA (PORCINE) 5,000 UNITS/ML 1ML VIAL SQ SCH ×3 (05:18→21:12)
[2018-05-31] MEDS: INSULIN SLIDING SCALE (NOVOLOG) 1 VIAL SQ SCH ×4 (06:06→21:27)
[2018-05-31 07:55] LABS: ANION GAP 10 (8-16); BLOOD UREA NITROGEN 56 mg/dL (7-18); CALCIUM 8.8 mg/dL (8.5-10.1); CHLORIDE 101 mmol/L (98-107); CO2 28 mmol/L (21-32); GLUCOSE,RANDOM 124 mg/dL (74-106); MAGNESIUM 2.2 mg/dL (1.8-2.4); POTASSIUM 4.3 mmol/L (3.5-5.1); SODIUM 139 mmol/L (136-145)
[2018-05-31 07:57] LABS: CREATININE 2.9 mg/dL (0.55-1.02); PHOSPHOROUS 5.3 mg/dL (2.5-4.9)
[2018-05-31] MEDS: ALBUTEROL SO4 0.083% IH SOL 2.5 MG/3 ML VIAL.NEB. NEB PRN (09:11)
[2018-05-31] MEDS: FERROUS SO4 325 MG TABLET (FP) PO SCH ×2 (09:23→21:12)
[2018-05-31] MEDS: metoPROLOL SUCCINATE 25 MG TAB.SR.24H (FP) PO SCH (09:23)
[2018-05-31] MEDS: ASPIRIN 81 MG CHEWABLE TABLETS PO SCH (09:23)
[2018-05-31] MEDS: PRASUGREL HCL 10 MG TAB PO SCH (09:24)
[2018-05-31] MEDS: NITROGLYCERIN 0.2 MG/HOUR TD PATCH TD SCH (09:25)
[2018-05-31] MEDS: MOMETASONE FUROATE 220 MCG/IH INHALER IH SCH ×2 (09:26→21:12)
--- NOTE | 2018-05-31 10:03 | PN ---
Progress Note, Physician Chief Complaint: Coverage for Drs. Fontana/Alma Events noted Sinus tachycardia History of Present Illness: Patient was seen and examined. Awake and alert. Chart was reviewed Sinus tachycardia persists but HR still 110 bpm. Denies chest pain or SOB - Current Medication List Current Medications: Active Medications Acetaminophen (Tylenol Oral Solution -) 650 mg PO Q6H PRN PRN Reason: PAIN Last Admin: 05/27/18 17:36 Dose: 650 mg Albuterol Sulfate (Ventolin 0.083% Nebulizer Soln -) 1 amp NEB Q4H PRN PRN Reason: SHORT OF BREATH/WHEEZING Last Admin: 05/31/18 09:11 Dose: 1 amp Aspirin (Asa -) 81 mg PO DAILY [facility] Last Admin: 05/31/18 09:23 Dose: 81 mg Clonazepam (Klonopin -) 0.5 mg PO Q6H PRN PRN Reason: ANXIETY Last Admin: 05/30/18 22:23 Dose: 0.5 mg Ezetimibe (Zetia -) 10 mg PO Q48H [facility] Last Admin: 05/29/18 18:50 Dose: 10 mg Ferrous Sulfate (Feosol -) 325 mg PO BID [facility] Last Admin: 05/31/18 09:23 Dose: 325 mg Heparin Sodium (Porcine) (Heparin -) 5,000 unit SQ TID [facility] Last Admin: 05/31/18 05:18 Dose: 5,000 unit Hydralazine HCl (Apresoline -) 37.5 mg PO TID [facility] Last Admin: 05/31/18 05:18 Dose: 37.5 mg Insulin Aspart (Novolog Vial Sliding Scale -) 1 vial SQ [facility]; Protocol Last Admin: 05/31/18 06:06 Dose: Not Given Insulin Detemir (Levemir Vial) 12 units SQ HS [facility] Last Admin: 05/30/18 22:18 Dose: 12 units Metoprolol Succinate (Toprol Xl -) 25 mg PO DAILY [facility] Last Admin: 05/31/18 09:23 Dose: 25 mg Mometasone Furoate (Asmanex 220mcg -) 1 puff IH BID [facility] Last Admin: 05/31/18 09:26 Dose: 1 puff Nitroglycerin (Nitro-Dur Patch -) 0.2 mg TD DAILY [facility] Last Admin: 05/31/18 09:25 Dose: 0.2 mg Prasugrel (Effient -) 10 mg PO DAILY [facility] Last Admin: 05/31/18 09:24 Dose: 10 mg Propylthiouracil (Ptu -) 150 mg PO TID [facility] Last Admin: 05/31/18 05:18 Dose: 150 mg Rosuvastatin Calcium (Crestor -) 10 mg PO HS [facility] Last Admin: 05/30/18 22:17 Dose: 10 mg - Objective Vital Signs: Vital Signs Temperature 98.4 F 05/31/18 07:50 Pulse Rate 116 H 05/31/18 07:50 Respiratory Rate 05/31/18 07:52 Blood Pressure 128/79 05/31/18 07:50 O2 Sat by Pulse Oximetry (%) 98 05/31/18 09:20 Eyes: Yes: PERRL HENT: Yes: Atraumatic Neck: Yes: Supple Cardiovascular: Yes: Regular Rate and Rhythm, Tachycardia, S1, S2 Respiratory: Yes: Diminished Gastrointestinal: Yes: Normal Bowel Sounds, Soft. No: Tenderness Edema: No Additional Findings/Remarks: - Review of Systems Constitutional: denies: Chills, Fever Cardiovascular: reports: Shortness of Breath. denies: Chest Pain, (+) Palpitations Respiratory: reports: Cough, SOB, SOB on Exertion. denies: Hemoptysis, PND Gastrointestinal: denies: Abdominal Pain, Constipation, Diarrhea, Melena, Nausea , Rectal Bleeding, Vomiting Genitourinary: denies: Dysuria, Hematuria Musculoskeletal: denies: Joint Pain Neurological: denies: Dizziness, Headache, Seizure, Syncope Labs: CBC, BMP 05/30/18 05:30 05/31/18 06:15 Problem List - Problems (1) Hypertensive urgency Code(s): I16.0 - HYPERTENSIVE URGENCY (2) Hyperthyroidism Code(s): E05.90 - THYROTOXICOSIS, UNSP WITHOUT THYROTOXIC CRISIS OR STORM (3) Thyrotoxicosis Code(s): E05.90 - THYROTOXICOSIS, UNSP WITHOUT THYROTOXIC CRISIS OR STORM (4) Acute on chronic heart failure Code(s): I50.9 - HEART FAILURE, UNSPECIFIED Qualifiers: Heart failure type: diastolic Qualified Code(s): I50.33 - Acute on chronic diastolic (congestive) heart failure (5) Acute on chronic kidney failure Code(s): N17.9 - ACUTE KIDNEY FAILURE, UNSPECIFIED; N18.9 - CHRONIC KIDNEY DISEASE, UNSPECIFIED (6) Acute pulmonary edema with congestive heart failure Code(s): I50.1 - LEFT VENTRICULAR FAILURE, UNSPECIFIED (7) Asthma exacerbation Code(s): J45.901 - UNSPECIFIED ASTHMA WITH (ACUTE) EXACERBATION Qualifiers: Asthma severity: unspecified severity Asthma persistence: unspecified Qualified Code(s): J45.901 - Unspecified asthma with (acute) exacerbation (8) CAD (coronary artery disease) Code(s): I25.10 - ATHSCL HEART DISEASE OF [place] CORONARY ARTERY W/O ANG PCTRS Qualifiers: Coronary Disease-Associated Artery/Lesion type: [place] artery [place] vs. transplanted heart: [place] heart Associated angina: without angina Qualified Code(s): I25.10 - Atherosclerotic heart disease of [place] coronary artery without angina pectoris (9) CKD (chronic kidney disease) Code(s): N18.9 - CHRONIC KIDNEY DISEASE, UNSPECIFIED (10) Elevated troponin Code(s): R74.8 - ABNORMAL LEVELS OF OTHER SERUM ENZYMES (11) Anemia Code(s): D64.9 - ANEMIA, UNSPECIFIED (12) HLD (hyperlipidemia) Code(s): E78.5 - HYPERLIPIDEMIA, UNSPECIFIED Qualifiers: Hyperlipidemia type: pure hypercholesterolemia Qualified Code(s): E78.00 - Pure hypercholesterolemia, unspecified; E78.0 - Pure hypercholesterolemia (13) HTN (hypertension) Code(s): I10 - ESSENTIAL (PRIMARY) HYPERTENSION Qualifiers: Hypertension type: essential hypertension Qualified Code(s): I10 - Essential (primary) hypertension (14) IDDM (insulin dependent diabetes mellitus) Code(s): E11.9 - TYPE 2 DIABETES MELLITUS WITHOUT COMPLICATIONS; Z79.4 - LITHOSTRIPPER (CURRENT) USE OF INSULIN (15) Sleep apnea, obstructive Code(s): G47.33 - OBSTRUCTIVE SLEEP APNEA (ADULT) (PEDIATRIC) Assessment/Plan 1. Acute on chronic diastolic LV failure 2. Sinus tachycardia 3. Thyrotoxicosis 4. HTN 5. CAD, history of NSTEMI, PCI/stent 6. CKD 7. DM 8. Hypercholesterolemia 9. Chronic anemia PLAN: 1. Consider uptitrating Metoprolol Succinate to 50 mg once a day if tolerated. Coreg CR d/bernardo yesterday (as discussed with Dr. Tayler Buchanan, resident on service) 2. Continue Hydralazine 3. Continue Crestor and Zetia 4. DAPT with ASA and Prasugrel 5. Continue PTU 6. Monitor renal function and electrolytes and monitor H/H 7. Bronchodilators Further plans are to follow Pa Goodwin MD
--- NOTE | 2018-05-31 10:41 | PN ---
Progress Note, Physician History of Present Illness: pulmonary alert,oob-chair,+cough - Current Medication List Current Medications: Active Medications Acetaminophen (Tylenol Oral Solution -) 650 mg PO Q6H PRN PRN Reason: PAIN Last Admin: 05/27/18 17:36 Dose: 650 mg Albuterol Sulfate (Ventolin 0.083% Nebulizer Soln -) 1 amp NEB Q4H PRN PRN Reason: SHORT OF BREATH/WHEEZING Last Admin: 05/31/18 09:11 Dose: 1 amp Aspirin (Asa -) 81 mg PO DAILY [facility] Last Admin: 05/31/18 09:23 Dose: 81 mg Clonazepam (Klonopin -) 0.5 mg PO Q6H PRN PRN Reason: ANXIETY Last Admin: 05/30/18 22:23 Dose: 0.5 mg Ezetimibe (Zetia -) 10 mg PO Q48H [facility] Last Admin: 05/29/18 18:50 Dose: 10 mg Ferrous Sulfate (Feosol -) 325 mg PO BID [facility] Last Admin: 05/31/18 09:23 Dose: 325 mg Heparin Sodium (Porcine) (Heparin -) 5,000 unit SQ TID [facility] Last Admin: 05/31/18 05:18 Dose: 5,000 unit Hydralazine HCl (Apresoline -) 37.5 mg PO TID [facility] Last Admin: 05/31/18 05:18 Dose: 37.5 mg Insulin Aspart (Novolog Vial Sliding Scale -) 1 vial SQ [facility]; Protocol Last Admin: 05/31/18 06:06 Dose: Not Given Insulin Detemir (Levemir Vial) 12 units SQ HS [facility] Last Admin: 05/30/18 22:18 Dose: 12 units Metoprolol Succinate (Toprol Xl -) 25 mg PO DAILY [facility] Last Admin: 05/31/18 09:23 Dose: 25 mg Mometasone Furoate (Asmanex 220mcg -) 1 puff IH BID [facility] Last Admin: 05/31/18 09:26 Dose: 1 puff Nitroglycerin (Nitro-Dur Patch -) 0.2 mg TD DAILY [facility] Last Admin: 05/31/18 09:25 Dose: 0.2 mg Prasugrel (Effient -) 10 mg PO DAILY [facility] Last Admin: 05/31/18 09:24 Dose: 10 mg Propylthiouracil (Ptu -) 150 mg PO TID [facility] Last Admin: 05/31/18 05:18 Dose: 150 mg Rosuvastatin Calcium (Crestor -) 10 mg PO HS [facility] Last Admin: 05/30/18 22:17 Dose: 10 mg - Objective Vital Signs: Vital Signs Temperature 98.4 F 05/31/18 07:50 Pulse Rate 116 H 05/31/18 07:50 Respiratory Rate 18 05/31/18 07:52 Blood Pressure 128/79 05/31/18 07:50 O2 Sat by Pulse Oximetry (%) 98 05/31/18 09:20 Constitutional: Yes: Well Nourished, Calm Eyes: Yes: WNL HENT: Yes: WNL Neck: Yes: WNL Cardiovascular: Yes: Tachycardia, S1, S2 Respiratory: Yes: CTA Bilaterally Gastrointestinal: Yes: Normal Bowel Sounds, Soft Extremities: Yes: WNL Edema: Yes Labs: CBC, BMP 05/30/18 05:30 05/31/18 06:15 Problem List - Problems (1) Acute on chronic heart failure Code(s): I50.9 - HEART FAILURE, UNSPECIFIED Qualifiers: Heart failure type: diastolic Qualified Code(s): I50.33 - Acute on chronic diastolic (congestive) heart failure (2) CAD (coronary artery disease) Code(s): I25.10 - ATHSCL HEART DISEASE OF [place] CORONARY ARTERY W/O ANG PCTRS Qualifiers: Coronary Disease-Associated Artery/Lesion type: [place] artery [place] vs. transplanted heart: [place] heart Associated angina: without angina Qualified Code(s): I25.10 - Atherosclerotic heart disease of [place] coronary artery without angina pectoris (3) CKD (chronic kidney disease) Code(s): N18.9 - CHRONIC KIDNEY DISEASE, UNSPECIFIED (4) KATINA (obstructive sleep apnea) Code(s): G47.33 - OBSTRUCTIVE SLEEP APNEA (ADULT) (PEDIATRIC) (5) ASHD (arteriosclerotic heart disease) Code(s): I25.10 - ATHSCL HEART DISEASE OF [place] CORONARY ARTERY W/O ANG PCTRS (6) CHF (congestive heart failure) Code(s): I50.9 - HEART FAILURE, UNSPECIFIED Qualifiers: Heart failure type: unspecified Heart failure chronicity: acute on chronic Qualified Code(s): I50.9 - Heart failure, unspecified (7) HLD (hyperlipidemia) Code(s): E78.5 - HYPERLIPIDEMIA, UNSPECIFIED Qualifiers: Hyperlipidemia type: pure hypercholesterolemia Qualified Code(s): E78.00 - Pure hypercholesterolemia, unspecified; E78.0 - Pure hypercholesterolemia (8) HTN (hypertension) Code(s): I10 - ESSENTIAL (PRIMARY) HYPERTENSION Qualifiers: Hypertension type: essential hypertension Qualified Code(s): I10 - Essential (primary) hypertension (9) IDDM (insulin dependent diabetes mellitus) Code(s): E11.9 - TYPE 2 DIABETES MELLITUS WITHOUT COMPLICATIONS; Z79.4 - CUSTODIAL (CURRENT) USE OF INSULIN (10) Sleep apnea, obstructive Code(s): G47.33 - OBSTRUCTIVE SLEEP APNEA (ADULT) (PEDIATRIC) (11) Hypertensive urgency Code(s): I16.0 - HYPERTENSIVE URGENCY (12) Hyperthyroidism Code(s): E05.90 - THYROTOXICOSIS, UNSP WITHOUT THYROTOXIC CRISIS OR STORM (13) Pneumonia Code(s): J18.9 - PNEUMONIA, UNSPECIFIED ORGANISM (14) Thyrotoxicosis Code(s): E05.90 - THYROTOXICOSIS, UNSP WITHOUT THYROTOXIC CRISIS OR STORM Assessment/Plan IMP DYSPNEA IMPROVING CHF IMPROVING EFFUSION/ATELECTASIS S/P HYPERTENSIVE URGENCY TACHYCARDIA IMPROVING HYPERTHYROIDISM ACUTE ON CKD PULMONARY HTN DM OSAS ON CPAP [id number] ASHD S/P NSTEMI,S/P STENTS ASTHMA CHRONIC VENOUS INSUFFICIENCY R HYDRONEPHROSIS PLAN O2 LASIX NEEDED ASMANEX BID INHALED BRONCHODILATORS TITRATE BP MEDS RATE CONTROL BETA-BLOCKERS CPAP AT ROTARY DRILLER LYTES,RENAL FUNCTION DAILY WTS DR BENDER Problem List - Problems (1) Acute on chronic heart failure Code(s): I50.9 - HEART FAILURE, UNSPECIFIED (2) CAD (coronary artery disease) Code(s): I25.10 - ATHSCL HEART DISEASE OF [place] CORONARY ARTERY W/O ANG PCTRS (3) CKD (chronic kidney disease) Code(s): N18.9 - CHRONIC KIDNEY DISEASE, UNSPECIFIED (4) KATINA (obstructive sleep apnea) Code(s): G47.33 - OBSTRUCTIVE SLEEP APNEA (ADULT) (PEDIATRIC) (5) ASHD (arteriosclerotic heart disease) Code(s): I25.10 - ATHSCL HEART DISEASE OF [place] CORONARY ARTERY W/O ANG PCTRS (6) CHF (congestive heart failure) Code(s): I50.9 - HEART FAILURE, UNSPECIFIED Qualifiers: Heart failure type: unspecified Heart failure chronicity: acute on chronic Qualified Code(s): I50.9 - Heart failure, unspecified (7) HLD (hyperlipidemia) Code(s): E78.5 - HYPERLIPIDEMIA, UNSPECIFIED (8) HTN (hypertension) Code(s): I10 - ESSENTIAL (PRIMARY) HYPERTENSION (9) IDDM (insulin dependent diabetes mellitus) Code(s): E11.9 - TYPE 2 DIABETES MELLITUS WITHOUT COMPLICATIONS; Z79.4 - [employer] (CURRENT) USE OF INSULIN (10) Sleep apnea, obstructive Code(s): G47.33 - OBSTRUCTIVE SLEEP APNEA (ADULT) (PEDIATRIC) (11) Hypertensive urgency Code(s): I16.0 - HYPERTENSIVE URGENCY (12) Hyperthyroidism Code(s): E05.90 - THYROTOXICOSIS, UNSP WITHOUT THYROTOXIC CRISIS OR STORM (13) Pneumonia Code(s): J18.9 - PNEUMONIA, UNSPECIFIED ORGANISM (14) Thyrotoxicosis Code(s): E05.90 - THYROTOXICOSIS, UNSP WITHOUT THYROTOXIC CRISIS OR STORM
[2018-05-31] MEDS ORDERED: metoPROLOL SUCCINATE 25 MG TAB.SR.24H (FP) PO SCH (11:15)
--- NOTE | 2018-05-31 11:19 | CON.GU ---
Consult Consult Specialty:: Urology Reason for Consultation:: Right Hydronephrosis - History of Present Illness History of Present Illness: 63 yo w mult medical problems including CRI w Cr 2.9 found to have right hydro w obstruction on renal scan - Past Medical History Cardio/Vascular: Yes: AFIB, CAD, CHF, HTN, Hyperlipdemia, SD, Mitral Insufficiency, Pulmonary Hypertension Pulmonary: Yes: Sleep Apnea Renal/: Yes: Renal Failure ...: No Endocrine: Yes: Diabetes Mellitus - Past Surgical History Past Surgical History: Yes: Stent - Alcohol/Substance Use Hx Alcohol Use: No - Smoking History Smoking history: Never smoked Have you smoked in the past 12 months: No Aproximately how many cigarettes per day: 0 Home Medications - Allergies Allergies/Adverse Reactions: Allergies Allergy/AdvReac Type Severity Reaction Status Date / Time Penicillins Allergy Intermediate Hives Verified 05/25/18 14:01 Iodinated Contrast- Oral and Allergy Verified 05/25/18 14:01 IV Dye [Iodinated Contrast Media - IV Dye] tiotropium AdvReac Verified 05/25/18 14:01 [From [facility] with HandiHaler] - Home Medications Home Medications: Ambulatory Orders Aspirin [ASA -] 81 mg PO DAILY #1 tab 03/06/13 Ferrous Sulfate [Feosol] 325 mg PO BID #0 ud 05/08/15 Prasugrel Hydrochloride [Effient -] 10 mg PO DAILY #0 tab 05/08/15 Albuterol 0.083% Nebulizer Bib[place] [Ventolin 0.083% Nebulizer Soln -] 1 neb NEB QID 09/14/16 Insulin Glargine,Hum.rec.anlog [Lantus (10mL VIAL) -] 30 units SQ HS 04/29/17 Insulin Lispro [Humalog] 100 unit SQ PRN 04/29/17 Budesonide/Formeterol Fumarate [SYMBICORT 160/4.5mcg -] 2 inh PO BID 06/13/17 clonazePAM [KlonoPIN] 0.5 mg PO QID PRN 06/13/17 Carvedilol Phosphate [Coreg Cr -] 10 mg PO DAILY #30 cap 06/23/17 Hydralazine HCl 50 mg PO TID #90 tablet 06/23/17 Albuterol 0.083% Nebulizer [place] [Ventolin 0.083% Nebulizer Soln -] 1 amp NEB Q4H #1 amp 12/20/17 Ezetimibe [Zetia -] 10 mg PO Q48H 30 Days #30 tablet 12/20/17 Nitroglycerin Patch [Nitro-Dur Patch -] 0.2 mg TD DAILY #30 patch.td24 12/20/17 Torsemide [Demadex -] 20 mg PO DAILY #60 tablet 12/20/17 Rosuvastatin [Crestor -] 10 mg PO HS #30 tablet 04/15/18 Brimonidine Tartrate [Alphagan P 0.1% -] 3 drop OU Q8H 05/27/18 Latanoprost 0.005% Eye Drops [Xalatan 0.005% Eye Drops -] 1 drop OU DAILY Methimazole [Tapazole -] 5 mg PO Q8H 05/27/18 Pantoprazole Sodium [Protonix -] 40 mg PO DAILY 05/27/18 Spironolactone 12.5 mg PO DAILY 05/27/18 Physical Exam- Vital Signs: Vital Signs Temperature 98.4 F 05/31/18 07:50 Pulse Rate 116 H 05/31/18 07:50 Respiratory Rate 18 05/31/18 07:52 Blood Pressure 128/79 05/31/18 07:50 O2 Sat by Pulse Oximetry (%) 98 05/31/18 09:20 Labs: CBC, BMP 05/30/18 05:30 05/31/18 06:15 Imaging - Results Cat Scan: Report Reviewed Ultrasound: Report Reviewed Problem List - Problems (1) Acute kidney failure Code(s): N17.9 - ACUTE KIDNEY FAILURE, UNSPECIFIED (2) Hydronephrosis Code(s): N13.30 - UNSPECIFIED HYDRONEPHROSIS Assessment/Plan Chronic w acute renal failure w cr 2.9 and right sided obstruction Discuss perc NT vs stent placement as is medically necessay Right side currenlt apparent cortical thinner however fxn at 43 % Def plan to be discussed
--- NOTE | 2018-05-31 12:52 | PN ---
Progress Note (short form) - Note Progress Note: Renal follow up for CKD Pt seen and examined at the bedside complains of cough no chest pain, abd pain, N/V/D making urine leg edema improving Vital Signs Temperature 98.4 F 05/31/18 07:50 Pulse Rate 116 H 05/31/18 07:50 Respiratory Rate 18 05/31/18 07:52 Blood Pressure 128/79 05/31/18 07:50 O2 Sat by Pulse Oximetry (%) 98 05/31/18 09:20 Intake & Output 05/28/18 05/29/18 05/30/18 05/31/18 23:59 23:59 23:59 23:59 Intake Total 301 489 2651 420 Output Total 200 450 Balance 120 260 550 420 Weight 98.974 kg 98.157 kg 97.341 kg 96.842 kg NAD awake and alert MMM RRR Dec BS + distension, no tenderness + edema in LE CBC, BMP 05/30/18 05:30 05/31/18 06:15 Current Medications Acetaminophen (Tylenol Oral Solution -) 650 mg PO Q6H PRN PRN Reason: PAIN Last Admin: 05/27/18 17:36 Dose: 650 mg Albuterol Sulfate (Ventolin 0.083% Nebulizer Soln -) 1 amp NEB Q4H PRN PRN Reason: SHORT OF BREATH/WHEEZING Last Admin: 05/31/18 09:11 Dose: 1 amp Aspirin (Asa -) 81 mg PO DAILY [facility] Last Admin: 05/31/18 09:23 Dose: 81 mg Clonazepam (Klonopin -) 0.5 mg PO Q6H PRN PRN Reason: ANXIETY Last Admin: 05/30/18 22:23 Dose: 0.5 mg Ezetimibe (Zetia -) 10 mg PO Q48H [facility] Last Admin: 05/29/18 18:50 Dose: 10 mg Ferrous Sulfate (Feosol -) 325 mg PO BID [facility] Last Admin: 05/31/18 09:23 Dose: 325 mg Heparin Sodium (Porcine) (Heparin -) 5,000 unit SQ TID [facility] Last Admin: 05/31/18 05:18 Dose: 5,000 unit Hydralazine HCl (Apresoline -) 37.5 mg PO TID [facility] Last Admin: 05/31/18 05:18 Dose: 37.5 mg Insulin Aspart (Novolog Vial Sliding Scale -) 1 vial SQ ACHS [facility]; Protocol Last Admin: 05/31/18 11:21 Dose: Not Given Insulin Detemir (Levemir Vial) 12 units SQ HS [facility] Last Admin: 05/30/18 22:18 Dose: 12 units Metoprolol Succinate (Toprol Xl -) 50 mg PO DAILY [facility] Mometasone Furoate (Asmanex 220mcg -) 1 puff IH BID [facility] Last Admin: 05/31/18 09:26 Dose: 1 puff Nitroglycerin (Nitro-Dur Patch -) 0.2 mg TD DAILY [facility] Last Admin: 05/31/18 09:25 Dose: 0.2 mg Prasugrel (Effient -) 10 mg PO DAILY [facility] Last Admin: 05/31/18 09:24 Dose: 10 mg Propylthiouracil (Ptu -) 150 mg PO TID [facility] Last Admin: 05/31/18 05:18 Dose: 150 mg Rosuvastatin Calcium (Crestor -) 10 mg PO HS [facility] Last Admin: 05/30/18 22:17 Dose: 10 mg 63 year old woman with PMhx of CKD stage 4 (baseline Cr 2.5-3), Recently diagnosed hyperthyroidism, Hypertension, D-HF, DM type 2, HLD, CAD, CABG, Asthma , PAFib who presented with tachycardia and found to have acute thyrotoxicosis and Cr of 3 with right hydronephrosis. #CKD Stage 4 #Right hydronephrosis #Thyrotoxicosis #Hypertension #Anemia Renal scan consistent with obstruction, urology follow up regarding possible stent vs. PCN Renal function stable at this time would continue diuretics, will start Torseide 40mg Daily for volume mangement PTU as per medicine iron studies pending Will follow Goyo Cid DO
--- NOTE | 2018-05-31 12:54 | EKG ---
Test Reason : Blood Pressure : / mmHG Vent. Rate : 078 BPM Atrial Rate : 078 BPM P-R Int : 182 ms QRS Dur : 084 ms QT Int : 398 ms P-R-T Axes : 058 007 216 degrees QTc Int : 453 ms SINUS RHYTHM WITH OCCASIONAL PREMATURE VENTRICULAR COMPLEXES AND PREMATURE ATRIAL COMPLEXES T WAVE ABNORMALITY, CONSIDER INFERIOR ISCHEMIA T WAVE ABNORMALITY, CONSIDER ANTEROLATERAL ISCHEMIA ABNORMAL ECG Confirmed by MD GUANACO, RHONDA ([id number]) on 05/31/2018 12:53:59 PM Referred By: Cory ALBRECHT Confirmed By:RHONDA BLANC MD
[2018-05-31] MEDS: TORSEMIDE 20 MG TABLET (FP) PO SCH (14:19)
--- NOTE | 2018-05-31 19:17 | PN ---
Teaching Attending Note Name of Resident: Tayler Buchanan ATTENDING PHYSICIAN STATEMENT I saw and evaluated the patient. I reviewed the resident's note and discussed the case with the resident. I agree with the resident's findings and plan as documented with exceptions below. SUBJECTIVE: Patient seen and examined. feels better, denies any dyspnea currently, had a treatment recently. No chest pain, palpitations noted. OBJECTIVE: Vital Signs Period Temp Pulse Resp BP Sys/Shankar Pulse Ox Last 24 Hr 98.2 F-98.4 F 77-116 18-20 125-153/71-93 91-98 Intake & Output 05/28/18 05/29/18 05/30/18 05/31/18 23:59 23:59 23:59 23:59 Intake Total 800 418 7785 670 Output Total 200 450 Balance 120 260 550 670 Weight 218 lb 3.2 oz 216 lb 6.4 oz 214 lb 9.6 oz 213 lb 8 oz General: sitting in bed in no acute distress Chest: CTAB, no rales or wheezing, good air entry ABdomen:Soft, NT Extremities: no edema Home Medications Medication Instructions Recorded Aspirin [ASA -] 81 mg PO DAILY #1 tab 03/06/13 Ferrous Sulfate [Feosol] 325 mg PO BID #0 ud 05/08/15 Prasugrel Hydrochloride [Effient -] 10 mg PO DAILY #0 tab 05/08/15 Albuterol 0.083% Nebulizer Bibiana 1 neb NEB QID 09/14/16 [Ventolin 0.083% Nebulizer Soln -] Insulin Glargine,Hum.rec.anlog 30 units SQ HS 04/29/17 [Lantus (10mL VIAL) -] Insulin Lispro [Humalog] 100 unit SQ PRN 04/29/17 Budesonide/Formeterol Fumarate 2 inh PO BID 06/13/17 [SYMBICORT 160/4.5mcg -] clonazePAM [KlonoPIN] 0.5 mg PO QID PRN 06/13/17 Carvedilol Phosphate [Coreg Cr -] 10 mg PO DAILY #30 cap 06/23/17 Hydralazine HCl 50 mg PO TID #90 tablet 06/23/17 Albuterol 0.083% Nebulizer Bibiana 1 amp NEB Q4H #1 amp 12/20/17 [Ventolin 0.083% Nebulizer Soln -] Ezetimibe [Zetia -] 10 mg PO Q48H 30 Days #30 tablet 12/20/17 Nitroglycerin Patch [Nitro-Dur 0.2 mg TD DAILY #30 patch.td24 12/20/17 Patch -] Torsemide [Demadex -] 20 mg PO DAILY #60 tablet 12/20/17 Rosuvastatin [Crestor -] 10 mg PO HS #30 tablet 04/15/18 Brimonidine Tartrate [Alphagan P 3 drop OU Q8H 05/27/18 0.1% -] Latanoprost 0.005% Eye Drops 1 drop OU DAILY 05/27/18 [Xalatan 0.005% Eye Drops -] Methimazole [Tapazole -] 5 mg PO Q8H 05/27/18 Pantoprazole Sodium [Protonix -] 40 mg PO DAILY 05/27/18 Spironolactone 12.5 mg PO DAILY 05/27/18 Active Medications Acetaminophen (Tylenol Oral Solution -) 650 mg PO Q6H PRN PRN Reason: PAIN Last Admin: 05/27/18 17:36 Dose: 650 mg Albuterol Sulfate (Ventolin 0.083% Nebulizer Soln -) 1 amp NEB Q4H PRN PRN Reason: SHORT OF BREATH/WHEEZING Last Admin: 05/31/18 09:11 Dose: 1 amp Aspirin (Asa -) 81 mg PO DAILY [facility] Last Admin: 05/31/18 09:23 Dose: 81 mg Clonazepam (Klonopin -) 0.5 mg PO Q6H PRN PRN Reason: ANXIETY Last Admin: 05/30/18 22:23 Dose: 0.5 mg Ezetimibe (Zetia -) 10 mg PO Q48H [facility] Last Admin: 05/29/18 18:50 Dose: 10 mg Ferrous Sulfate (Feosol -) 325 mg PO BID [facility] Last Admin: 05/31/18 09:23 Dose: 325 mg Heparin Sodium (Porcine) (Heparin -) 5,000 unit SQ TID [facility] Last Admin: 05/31/18 14:20 Dose: 5,000 unit Hydralazine HCl (Apresoline -) 37.5 mg PO TID [facility] Last Admin: 05/31/18 14:19 Dose: 37.5 mg Insulin Aspart (Novolog Vial Sliding Scale -) 1 vial SQ ACHS [facility]; Protocol Last Admin: 05/31/18 16:37 Dose: Not Given Insulin Detemir (Levemir Vial) 12 units SQ [facility] Last Admin: 05/30/18 22:18 Dose: 12 units Metoprolol Succinate (Toprol Xl -) 50 mg PO DAILY [facility] Last Admin: 05/31/18 14:19 Dose: 50 mg Mometasone Furoate (Asmanex 220mcg -) 1 puff IH BID [facility] Last Admin: 05/31/18 09:26 Dose: 1 puff Nitroglycerin (Nitro-Dur Patch -) 0.2 mg TD DAILY [facility] Last Admin: 05/31/18 09:25 Dose: 0.2 mg Prasugrel (Effient -) 10 mg PO DAILY [facility] Last Admin: 05/31/18 09:24 Dose: 10 mg Propylthiouracil (Ptu -) 150 mg PO TID [facility] Last Admin: 05/31/18 14:20 Dose: 150 mg Rosuvastatin Calcium (Crestor -) 10 mg PO [facility] Last Admin: 05/30/18 22:17 Dose: 10 mg Torsemide (Demadex -) 40 mg PO DAILY [facility] Last Admin: 05/31/18 14:19 Dose: 40 mg Laboratory Results - last 24 hr 05/30/18 05/31/18 05/31/18 22:01 05:13 06:15 Sodium Potassium Chloride Carbon Dioxide Anion Gap BUN Creatinine Creat Clearance w eGFR POC Glucometer 159 104 Random Glucose Calcium Phosphorus Magnesium Free T4 Cancelled 05/31/18 05/31/18 05/31/18 06:15 11:18 16:31 Sodium 139 Potassium 4.3 Chloride 101 Carbon Dioxide 28 Anion Gap 10 BUN 56 H Creatinine 2.9 H Creat Clearance w eGFR 16.39 POC Glucometer 142 159 Random Glucose 124 H Calcium 8.8 Phosphorus 5.3 H Magnesium 2.2 Free T4 2.28 H ASSESSMENT AND PLAN: 62-year-old woman with a history of chronic diastolic heart failure, type 2 DM, HTN, hyperlipidemia, CAD, CABG, asthma, KATINA, anxiety, pulm HTN, PAF who presented to the ER with palpitations and found to be acute thyrotoxicosis -Acute thyrotoxicosis -Sinus tachycardia, from above -LLL atelectasis, vs infiltrates, Afebrile, normal WBC and CT chest neg for infiltrate/consolidation -Asthma, with bronchospam, ?Beta isrrael induced -OBI on CKD stage III (baseline cr around 2.6-2.8) -Acute on chronic diastolic HF exacerbation -Right hydronephrosis with outlet obstruction -Anemia of chronic disease -HTN -CAD s/p 2 PCI -PAF, in sinus currenty Plan: Endocrine input noted, PTU increased yesterday, free T4 noted, monitor for now. Radioactive iodine as outpatient. Cardiology input noted, increase toprol to 50 mg daily, monitor for worsening bronchospams. Off coreg currently Nephrology input noted. Torsemide. Renal scan noted. Urology consulted, input noted, follow up for additional recs. Trend H/h Levemir 12 units hs, ISS, diabetic diet. Prasugrel Continue hydralazine DVTPPX heparin Dispo pending clinical improvement. Plan discussed with patient in detail, all questions answered.
[2018-05-31] MEDS: EZETIMIBE 10 MG TABLET (FP) PO SCH (19:33)
--- NOTE | 2018-05-31 20:45 | PN ---
Physical Exam: SUBJECTIVE: Patient seen and examined this morning at bedside. Patient feels much better, SOB has improved. No overnight events as per nursing. Denies fevers, chills, chest pain, SOB. OBJECTIVE: Vital Signs Period Temp Pulse Resp BP Sys/Shankar Pulse Ox Last 24 Hr 98.2 F-98.4 F 77-116 18-20 125-153/71-93 91-98 Vital Signs Temp 98.2 F 05/31/18 17:00 Pulse 109 H 05/31/18 17:00 Resp 20 05/31/18 17:00 BP 137/78 05/31/18 17:00 Pulse Ox 91 L 05/31/18 18:53 Intake & Output 05/30/18 05/31/18 05/31/18 23:59 11:59 23:59 Intake Total 1000 420 500 Output Total 450 Balance 550 420 500 Weight 96.842 kg Intake: IV 10 10 SALINE LOCK 10 10 Oral 990 420 490 Output: Urine 450 Void 450 Other: Voiding Method Toilet Toilet Toilet # Unmeasured Voids Void 2 2 2 Bowel Movement No No Yes Weight Measurement Method Standing Scale GENERAL: The patient is awake, alert, and fully oriented, in no acute distress. LUNGS: Breath sounds equal, CTA B/L HEART: Irregular pulse, S1, S2 without murmur, rub or gallop. ABDOMEN: Soft, nontender, distended, normoactive bowel sounds EXTREMITIES: 2+ lower extremity swelling Laboratory Results - last 24 hr 05/30/18 05/31/18 05/31/18 22:01 05:13 06:15 Sodium Potassium Chloride Carbon Dioxide Anion Gap BUN Creatinine Creat Clearance w eGFR POC Glucometer 159 104 Random Glucose Calcium Phosphorus Magnesium Free T4 Cancelled 05/31/18 05/31/18 05/31/18 06:15 11:18 16:31 Sodium 139 Potassium 4.3 Chloride 101 Carbon Dioxide 28 Anion Gap 10 BUN 56 H Creatinine 2.9 H Creat Clearance w eGFR 16.39 POC Glucometer 142 159 Random Glucose 124 H Calcium 8.8 Phosphorus 5.3 H Magnesium 2.2 Free T4 2.28 H Active Medications Acetaminophen (Tylenol Oral Solution -) 650 mg PO Q6H PRN PRN Reason: PAIN Last Admin: 05/27/18 17:36 Dose: 650 mg Albuterol Sulfate (Ventolin 0.083% Nebulizer Soln -) 1 amp NEB Q4H PRN PRN Reason: SHORT OF BREATH/WHEEZING Last Admin: 05/31/18 09:11 Dose: 1 amp Aspirin (Asa -) 81 mg PO DAILY [facility] Last Admin: 05/31/18 09:23 Dose: 81 mg Clonazepam (Klonopin -) 0.5 mg PO Q6H PRN PRN Reason: ANXIETY Last Admin: 05/30/18 22:23 Dose: 0.5 mg Ezetimibe (Zetia -) 10 mg PO Q48H [facility] Last Admin: 05/31/18 19:33 Dose: 10 mg Ferrous Sulfate (Feosol -) 325 mg PO BID [facility] Last Admin: 05/31/18 09:23 Dose: 325 mg Heparin Sodium (Porcine) (Heparin -) 5,000 unit SQ TID [facility] Last Admin: 05/31/18 14:20 Dose: 5,000 unit Hydralazine HCl (Apresoline -) 37.5 mg PO TID [facility] Last Admin: 05/31/18 14:19 Dose: 37.5 mg Insulin Aspart (Novolog Vial Sliding Scale -) 1 vial SQ [facility]; Protocol Last Admin: 05/31/18 16:37 Dose: Not Given Insulin Detemir (Levemir Vial) 12 units SQ [facility] Last Admin: 05/30/18 22:18 Dose: 12 units Metoprolol Succinate (Toprol Xl -) 50 mg PO DAILY [facility] Last Admin: 05/31/18 14:19 Dose: 50 mg Mometasone Furoate (Asmanex 220mcg -) 1 puff IH BID [facility] Last Admin: 05/31/18 09:26 Dose: 1 puff Nitroglycerin (Nitro-Dur Patch -) 0.2 mg TD DAILY [facility] Last Admin: 05/31/18 09:25 Dose: 0.2 mg Prasugrel (Effient -) 10 mg PO DAILY [facility] Last Admin: 05/31/18 09:24 Dose: 10 mg Propylthiouracil (Ptu -) 150 mg PO TID [facility] Last Admin: 05/31/18 14:20 Dose: 150 mg Rosuvastatin Calcium (Crestor -) 10 mg PO HS [facility] Last Admin: 05/30/18 22:17 Dose: 10 mg Torsemide (Demadex -) 40 mg PO DAILY [facility] Last Admin: 05/31/18 14:19 Dose: 40 mg ASSESSMENT/PLAN: 62 y/o F with a PMHx of chronic diastolic heart failure, T2DM, HTN, hyperlipidemia, CAD, CABG, asthma, KATINA, anxiety, pulm HTN, PAF who presented to the ER with palpitations and found to be in acute thyrotoxicosis 1. Acute thyrotoxicosis - Elevated FT4, will Trend Free T4 - PTU titrated up to 150 mg PO TID - Dr. Gonsales consulted, will discuss what the Free T4 goal should be - Will plan for radioactive iodine as outpatient 2. Sinus tachycardia - Due to acute thyrotoxicosis remains irregular and tachycardic - Cardio (Dr. Goodwin) was consulted: Consider uptitrating Metoprolol Succinate if tolerated and discontinue Coreg CR as they are both beta blockers. - Increased Metoprolol Succinate to 50 mg PO DAILY - Will monitor respiratory status as patient has hx of Asthma 3. Acute on chronic diastolic CHF - Remains volume overloaded - As per nephrology consult, Lasix was switched to Torsemide 40 mg PO DAILY [facility] - Strict I&O, daily weights - Will monitor BMP, Mag and Phos 4. LLL atelectasis vs infiltrate - ABx held as patient remains afebrile and without white count - CT chest: Bilateral lower lobe atelectasis and small pleural effusions. There is no evidence of pneumonia or acute pathology within the chest. 5. 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 - Nuclear renal: Overall mild delay in perfusion, uptake and excretion by both kidneys with cortical retention of tracer suggestive of an element of medical renal disease such as ATN. Dilated right renal pelvis with scintigraphic findings commensurate with outlet obstruction. Left kidney contributing to 57% and right kidney to 43% of the total renal function. - Nephrology consult (Dr. Cid): would continue diuretics, will start Torseide 40mg Daily for volume mangement - Urology Consult (Dr. Grigsby), Appreciate recommendations 6. HTN - Improved, will continue current management - Cardio was consulted, appreciate recommendations 7. Anemia of chronic disease - Hgb at baseline - Continue Ferrous Sulfate 325 mg PO BID 8. DM - Continue Insulin Aspart SQ ACHS [facility] - Continue Insulin Detemir 12 units SQ HS [facility] - Diabetic diet 9. CAD s/p 2 stents - Continue Prasugrel 10 mg PO DAILY 10. PAF - ECG (05/25/18): Sinus tachycardia 138 bpm, Possible Left atrial enlargement, T Wave abnormality - Tele monitor showed sinus with HR 110-120. - Currently not on anticoagulation 11. Asthma - Wheezing heard throughout possibly due to bronchospams 2/2 beta isrrael use. - Cardio consulted, appreciate recomendations - Continue Albuterol Sulfate 1 amp NEB Q4H PRN - Pulmonary consulted 12. DVT ppx - Heparin 5,000 unit SQ TID [facility] Visit type - Emergency Visit Emergency Visit: No - New Patient This patient is new to me today: No - Critical Care Critical Care patient: No
[2018-05-31] MEDS: ROSUVASTATIN CA 10 MG TABLET (FP) PO SCH (21:12)
[2018-05-31] MEDS: INSULIN (LEVEMIR) 100 UNITS/ML UNITS SQ SCH (21:27)
[2018-05-31] MEDS ORDERED: INSULIN (NOVOLOG) ASPART 100 UNITS/ML 10ML VIAL ONE (21:37)
[2018-06-01] MEDS: hydrALAZINE HCL 25 MG TABLET (FP) PO SCH ×3 (05:39→21:04)
[2018-06-01] MEDS: PROPYLTHIOURACIL 50 MG TABLET (UD) PO SCH ×3 (05:39→21:05)
[2018-06-01] MEDS: HEPARIN NA (PORCINE) 5,000 UNITS/ML 1ML VIAL SQ SCH ×3 (05:39→21:04)
[2018-06-01] MEDS: INSULIN SLIDING SCALE (NOVOLOG) 1 VIAL SQ SCH ×4 (06:51→21:05)
[2018-06-01 06:58] LABS: ANION GAP 10 (8-16); BLOOD UREA NITROGEN 58 mg/dL (7-18); CALCIUM 8.7 mg/dL (8.5-10.1); CHLORIDE 104 mmol/L (98-107); CO2 27 mmol/L (21-32); CREATININE 3.1 mg/dL (0.55-1.02); GLUCOSE,RANDOM 168 mg/dL (74-106); PHOSPHOROUS 5.5 mg/dL (2.5-4.9); POTASSIUM 4.7 mmol/L (3.5-5.1); SODIUM 141 mmol/L (136-145)
[2018-06-01 07:01] LABS: MAGNESIUM 2.2 mg/dL (1.8-2.4)
--- NOTE | 2018-06-01 08:27 | PN ---
Progress Note, Physician Chief Complaint: palpitations History of Present Illness: sob at times today fluid in stomach feeling no palpitations, cp legs swollen still no cigs - Current Medication List Current Medications: Active Medications Acetaminophen (Tylenol Oral Solution -) 650 mg PO Q6H PRN PRN Reason: PAIN Last Admin: 05/27/18 17:36 Dose: 650 mg Albuterol Sulfate (Ventolin 0.083% Nebulizer Soln -) 1 amp NEB Q4H PRN PRN Reason: SHORT OF BREATH/WHEEZING Last Admin: 05/31/18 09:11 Dose: 1 amp Aspirin (Asa -) 81 mg PO DAILY [facility] Last Admin: 05/31/18 09:23 Dose: 81 mg Clonazepam (Klonopin -) 0.5 mg PO Q6H PRN PRN Reason: ANXIETY Last Admin: 05/30/18 22:23 Dose: 0.5 mg Ezetimibe (Zetia -) 10 mg PO Q48H [facility] Last Admin: 05/31/18 19:33 Dose: 10 mg Ferrous Sulfate (Feosol -) 325 mg PO BID [facility] Last Admin: 05/31/18 21:12 Dose: 325 mg Heparin Sodium (Porcine) (Heparin -) 5,000 unit SQ TID [facility] Last Admin: 06/01/18 05:39 Dose: 5,000 unit Hydralazine HCl (Apresoline -) 37.5 mg PO TID [facility] Last Admin: 06/01/18 05:39 Dose: 37.5 mg Insulin Aspart (Novolog Vial Sliding Scale -) 1 vial SQ [facility]; Protocol Last Admin: 06/01/18 06:51 Dose: Not Given Insulin Detemir (Levemir Vial) 12 units SQ HS [facility] Last Admin: 05/31/18 21:27 Dose: 12 units Metoprolol Succinate (Toprol Xl -) 50 mg PO DAILY [facility] Last Admin: 05/31/18 14:19 Dose: 50 mg Mometasone Furoate (Asmanex 220mcg -) 1 puff IH BID [facility] Last Admin: 05/31/18 21:12 Dose: 1 puff Nitroglycerin (Nitro-Dur Patch -) 0.2 mg TD DAILY [facility] Last Admin: 05/31/18 09:25 Dose: 0.2 mg Prasugrel (Effient -) 10 mg PO DAILY [facility] Last Admin: 05/31/18 09:24 Dose: 10 mg Propylthiouracil (Ptu -) 150 mg PO TID [facility] Last Admin: 06/01/18 05:39 Dose: 150 mg Rosuvastatin Calcium (Crestor -) 10 mg PO HS [facility] Last Admin: 05/31/18 21:12 Dose: 10 mg Torsemide (Demadex -) 40 mg PO DAILY [facility] Last Admin: 05/31/18 14:19 Dose: 40 mg - Objective Vital Signs: Vital Signs Temperature 98.7 F 06/01/18 07:32 Pulse Rate 87 06/01/18 07:32 Respiratory Rate 18 06/01/18 07:33 Blood Pressure 143/84 06/01/18 07:32 O2 Sat by Pulse Oximetry (%) 94 L 06/01/18 07:33 Constitutional: Yes: No Distress, Calm Eyes: No: Sclera Icterus HENT: No: Nasal Congestion Cardiovascular: Yes: Regular Rate and Rhythm, JVD (8-10 cm), S1, S2, Other (PMI non diplaced). No: Gallop, Murmur Respiratory: Yes: CTA Bilaterally. No: Accessory Muscle Use, Rales, Wheezes Gastrointestinal: Yes: Normal Bowel Sounds, Soft. No: Tenderness Musculoskeletal: Yes: Other (No kyphosis) Extremities: No: Cold Edema: Yes Integumentary: No: Jaundice Neurological: Yes: Alert, Oriented (x3) Psychiatric: No: Agitated Labs: CBC, BMP 05/30/18 05:30 06/01/18 05:30 Assessment/Plan ECG--sinus tach 138 bpm, nonspecific ST-T changes CT chest: small bilat effusions with atx. o/w clear lungs. R sided hydronephrosis [facility] 2014: unchanged 70-80% distal RCA lesion. patent mLAD stent. 80-90% pLCX-- [facility] Echo 12/2016: TDS. nl LV size/EF. mild LVH. grade 2 d.d., hi E/e' = high LAP. nl RV. mild LAE. mild-mod MR, mod TR. mild pHTN (46 mmHg). tele: mostly atrial tach HR 110s, alternating with sinus at controlled HR acute on chronic diast CHF: -exacerbated recently by uncontrolled hyperthyroidism with tachycardia (and htn) -new dry wt due to hyperthyroid-related wt loss. has been 221-225 at home -BP and HR control as doing (as med intolerances allow) -torsemide held here (was taking 40mg qd at home recently) -06/01: s/p lasix 40 IV x 3 doses (refused 80mg IV dose)--last dose 05/29. started on torsemide 40 qd on 05/31, wt up 1 lb today and she has 8-10cm of JVD. her chf sx's (sob without wheeze/cough of asthma, and fluid in stomach) have returned. -would like to get her home soon but at present she remains at risk of quick decompensation of HF status at home -HR overall better controlled -recommend lasix 80 IV x 1 today--explained rationale to pt and very low risk of irreversible kidney damage from this. she agrees. -reassess tomorrow. -will probably need torsemide 50-100mg qd until thyroid status normalizes, in order to control her ongoing chf tendencies paroxysmal atrial tach, sinus tach, palpitations, thyrotoxicosis: -remote h/o intolerance to metoprolol, atenolol, ? 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 changed to atenolol yesterday by hospitalist. -low dose diltiazem at home ? caused GI upset (30 tid dose)--deferring re-trial -coreg CR changed to metopr succ, now at 50mg -in and out of PAT with HR 110s range (mostly in over past 24 hrs). -sinus HRs much better controlled now vs on DOA -continue metoprolol 50 qd as doing. -will plan to tolerate frequent PAT with HRs <120 until thyroid fxn normalizes, as this is not likely to cause refractory sx's of palpitations or refractory HF labile HTN: -prior reasonable control, lost of late due to hyperthyroidism which was initially untreated for several weeks -mult med intolerances in past -change hydral 50 tid back to 37.5 tid (intolerable reflex tachycardia/ palpitations on 50mg dose in past) -coreg CR has been held, while metoprolol given for tachycardia control -bp controlled CAD, prior NSTEMI/PCI: -non-ischemic ECG here (ST-Ts likely rate-related). trop 0.3 x 2 intermediate range, flat trend--consistent with chronic elevation from pt with known chronically elevated filling pressures, ? contribution from tachycardia as well -cont home DAPT (aspirin/effient), statin with zetia, bb OBI on CKD: -baseline creat runs 2.5-2.8 -initially creat 2.5 on DOA, has been stable 2.9-3.1 at present -R sided hydronephrosis on CT scan--? if contributing to her renal dysfunction - following, considering intervention mod-severe asthma, frequent exacerbations: -have downtitrated b-isrrael (previously coreg CR) to minimal tolerated dose ( requires for BP and tachycardia control)--was on coreg CR 10mg -bb changed recently to control tachycardia in setting of thyrotoxicosis -airways tx per pulmonary -currently stable HPL: -intolerant of mult statins -LDL at baseline is >200 -well controlled on home rosuvastatin plus zetia regimen with LDL near 100-120 chronic anemia: -baseline hgb runs 9s-10s. counts stable here. DM: -per hospitalist
--- NOTE | 2018-06-01 09:02 | PN ---
Progress Note, Physician History of Present Illness: PULMONARY ALERT,OOB-CHAIR,-SOB,LESS COUGH,TACHYCARDIC - Current Medication List Current Medications: Active Medications Acetaminophen (Tylenol Oral Solution -) 650 mg PO Q6H PRN PRN Reason: PAIN Last Admin: 05/27/18 17:36 Dose: 650 mg Albuterol Sulfate (Ventolin 0.083% Nebulizer Soln -) 1 amp NEB Q4H PRN PRN Reason: SHORT OF BREATH/WHEEZING Last Admin: 05/31/18 09:11 Dose: 1 amp Aspirin (Asa -) 81 mg PO DAILY [facility] Last Admin: 05/31/18 09:23 Dose: 81 mg Clonazepam (Klonopin -) 0.5 mg PO Q6H PRN PRN Reason: ANXIETY Last Admin: 05/30/18 22:23 Dose: 0.5 mg Ezetimibe (Zetia -) 10 mg PO Q48H [facility] Last Admin: 05/31/18 19:33 Dose: 10 mg Ferrous Sulfate (Feosol -) 325 mg PO BID [facility] Last Admin: 05/31/18 21:12 Dose: 325 mg Heparin Sodium (Porcine) (Heparin -) 5,000 unit SQ TID [facility] Last Admin: 06/01/18 05:39 Dose: 5,000 unit Hydralazine HCl (Apresoline -) 37.5 mg PO TID [facility] Last Admin: 06/01/18 05:39 Dose: 37.5 mg Insulin Aspart (Novolog Vial Sliding Scale -) 1 vial SQ [facility]; Protocol Last Admin: 06/01/18 06:51 Dose: Not Given Insulin Detemir (Levemir Vial) 12 units SQ HS [facility] Last Admin: 05/31/18 21:27 Dose: 12 units Metoprolol Succinate (Toprol Xl -) 50 mg PO DAILY [facility] Last Admin: 05/31/18 14:19 Dose: 50 mg Mometasone Furoate (Asmanex 220mcg -) 1 puff IH BID [facility] Last Admin: 05/31/18 21:12 Dose: 1 puff Nitroglycerin (Nitro-Dur Patch -) 0.2 mg TD DAILY [facility] Last Admin: 05/31/18 09:25 Dose: 0.2 mg Prasugrel (Effient -) 10 mg PO DAILY [facility] Last Admin: 05/31/18 09:24 Dose: 10 mg Propylthiouracil (Ptu -) 150 mg PO TID [facility] Last Admin: 06/01/18 05:39 Dose: 150 mg Rosuvastatin Calcium (Crestor -) 10 mg PO HS [facility] Last Admin: 05/31/18 21:12 Dose: 10 mg Torsemide (Demadex -) 40 mg PO DAILY [facility] Last Admin: 05/31/18 14:19 Dose: 40 mg - Objective Vital Signs: Vital Signs Temperature 98.7 F 06/01/18 07:32 Pulse Rate 87 06/01/18 07:32 Respiratory Rate 18 06/01/18 07:33 Blood Pressure 143/84 06/01/18 07:32 O2 Sat by Pulse Oximetry (%) 94 L 06/01/18 07:33 Constitutional: Yes: Well Nourished, Calm Eyes: Yes: WNL HENT: Yes: WNL Neck: Yes: WNL Cardiovascular: Yes: Tachycardia, S1, S2 Respiratory: Yes: CTA Bilaterally Gastrointestinal: Yes: Normal Bowel Sounds, Soft Extremities: Yes: WNL Edema: Yes Labs: CBC, BMP 06/01/18 05:30 Problem List - Problems (1) Acute on chronic heart failure Code(s): I50.9 - HEART FAILURE, UNSPECIFIED Qualifiers: Heart failure type: diastolic Qualified Code(s): I50.33 - Acute on chronic diastolic (congestive) heart failure (2) CAD (coronary artery disease) Code(s): I25.10 - ATHSCL HEART DISEASE OF [place] CORONARY ARTERY W/O ANG PCTRS Qualifiers: Coronary Disease-Associated Artery/Lesion type: [place] artery [place] vs. transplanted heart: [place] heart Associated angina: without angina Qualified Code(s): I25.10 - Atherosclerotic heart disease of [place] coronary artery without angina pectoris (3) CKD (chronic kidney disease) Code(s): N18.9 - CHRONIC KIDNEY DISEASE, UNSPECIFIED (4) KATINA (obstructive sleep apnea) Code(s): G47.33 - OBSTRUCTIVE SLEEP APNEA (ADULT) (PEDIATRIC) (5) ASHD (arteriosclerotic heart disease) Code(s): I25.10 - ATHSCL HEART DISEASE OF [place] CORONARY ARTERY W/O ANG PCTRS (6) CHF (congestive heart failure) Code(s): I50.9 - HEART FAILURE, UNSPECIFIED Qualifiers: Heart failure type: unspecified Heart failure chronicity: acute on chronic Qualified Code(s): I50.9 - Heart failure, unspecified (7) HLD (hyperlipidemia) Code(s): E78.5 - HYPERLIPIDEMIA, UNSPECIFIED Qualifiers: Hyperlipidemia type: pure hypercholesterolemia Qualified Code(s): E78.00 - Pure hypercholesterolemia, unspecified; E78.0 - Pure hypercholesterolemia (8) HTN (hypertension) Code(s): I10 - ESSENTIAL (PRIMARY) HYPERTENSION Qualifiers: Hypertension type: essential hypertension Qualified Code(s): I10 - Essential (primary) hypertension (9) IDDM (insulin dependent diabetes mellitus) Code(s): E11.9 - TYPE 2 DIABETES MELLITUS WITHOUT COMPLICATIONS; Z79.4 - [employer] (CURRENT) USE OF INSULIN (10) Sleep apnea, obstructive Code(s): G47.33 - OBSTRUCTIVE SLEEP APNEA (ADULT) (PEDIATRIC) (11) Hypertensive urgency Code(s): I16.0 - HYPERTENSIVE URGENCY (12) Hyperthyroidism Code(s): E05.90 - THYROTOXICOSIS, UNSP WITHOUT THYROTOXIC CRISIS OR STORM (13) Pneumonia Code(s): J18.9 - PNEUMONIA, UNSPECIFIED ORGANISM (14) Thyrotoxicosis Code(s): E05.90 - THYROTOXICOSIS, UNSP WITHOUT THYROTOXIC CRISIS OR STORM Assessment/Plan IMP DYSPNEA IMPROVING CHF IMPROVING EFFUSION/ATELECTASIS S/P HYPERTENSIVE URGENCY TACHYCARDIA IMPROVING HYPERTHYROIDISM ACUTE ON CKD PULMONARY HTN DM OSAS ON CPAP [id number] ASHD S/P NSTEMI,S/P STENTS ASTHMA CHRONIC VENOUS INSUFFICIENCY R HYDRONEPHROSIS PLAN O2 DIURETICS ASMANEX BID INHALED BRONCHODILATORS TITRATE BP MEDS RATE CONTROL BETA-BLOCKERS TOLERATED CPAP AT GLOBAL CHIEF CREATIVE OFFICER LYTES,RENAL FUNCTION DAILY WTS ? STENT BY SALNOI BENDER Problem List - Problems (1) Acute on chronic heart failure Code(s): I50.9 - HEART FAILURE, UNSPECIFIED (2) CAD (coronary artery disease) Code(s): I25.10 - ATHSCL HEART DISEASE OF [place] CORONARY ARTERY W/O ANG PCTRS (3) CKD (chronic kidney disease) Code(s): N18.9 - CHRONIC KIDNEY DISEASE, UNSPECIFIED (4) KATINA (obstructive sleep apnea) Code(s): G47.33 - OBSTRUCTIVE SLEEP APNEA (ADULT) (PEDIATRIC) (5) ASHD (arteriosclerotic heart disease) Code(s): I25.10 - ATHSCL HEART DISEASE OF [place] CORONARY ARTERY W/O ANG PCTRS (6) CHF (congestive heart failure) Code(s): I50.9 - HEART FAILURE, UNSPECIFIED Qualifiers: Heart failure type: unspecified Heart failure chronicity: acute on chronic Qualified Code(s): I50.9 - Heart failure, unspecified (7) HLD (hyperlipidemia) Code(s): E78.5 - HYPERLIPIDEMIA, UNSPECIFIED (8) HTN (hypertension) Code(s): I10 - ESSENTIAL (PRIMARY) HYPERTENSION (9) IDDM (insulin dependent diabetes mellitus) Code(s): E11.9 - TYPE 2 DIABETES MELLITUS WITHOUT COMPLICATIONS; Z79.4 - [employer] (CURRENT) USE OF INSULIN (10) Sleep apnea, obstructive Code(s): G47.33 - OBSTRUCTIVE SLEEP APNEA (ADULT) (PEDIATRIC) (11) Hypertensive urgency Code(s): I16.0 - HYPERTENSIVE URGENCY (12) Hyperthyroidism Code(s): E05.90 - THYROTOXICOSIS, UNSP WITHOUT THYROTOXIC CRISIS OR STORM (13) Pneumonia Code(s): J18.9 - PNEUMONIA, UNSPECIFIED ORGANISM (14) Thyrotoxicosis Code(s): E05.90 - THYROTOXICOSIS, UNSP WITHOUT THYROTOXIC CRISIS OR STORM
[2018-06-01] MEDS: NITROGLYCERIN 0.2 MG/HOUR TD PATCH TD SCH (09:08)
[2018-06-01] MEDS: MOMETASONE FUROATE 220 MCG/IH INHALER IH SCH ×2 (09:17→21:03)
[2018-06-01] MEDS: ASPIRIN 81 MG CHEWABLE TABLETS PO SCH (09:18)
[2018-06-01] MEDS: TORSEMIDE 20 MG TABLET (FP) PO SCH (09:18)
[2018-06-01] MEDS: FERROUS SO4 325 MG TABLET (FP) PO SCH ×2 (09:18→21:04)
[2018-06-01] MEDS: PRASUGREL HCL 10 MG TAB PO SCH (09:19)
--- NOTE | 2018-06-01 11:01 | PN ---
Progress Note (short form) - Note Progress Note: Renal follow up for CKD Pt seen and examined at the bedside awake and alert no acute complaints continues to have LE swelling and abd swelling making urine Vital Signs Temperature 98.7 F 06/01/18 07:32 Pulse Rate 87 06/01/18 07:32 Respiratory Rate 18 06/01/18 07:33 Blood Pressure 143/84 06/01/18 07:32 O2 Sat by Pulse Oximetry (%) 94 L 06/01/18 07:33 Intake & Output 05/29/18 05/30/18 05/31/18 06/01/18 23:59 23:59 23:59 23:59 Intake Total 260 1000 1110 480 Output Total 450 Balance 537 081 9585 480 Weight 98.157 kg 97.341 kg 96.842 kg 97.296 kg NAD awake and alert MMM RRR Dec BS + distension, no tenderness + edema in LE CBC, BMP 05/30/18 05:30 06/01/18 05:30 Current Medications Acetaminophen (Tylenol Oral Solution -) 650 mg PO Q6H PRN PRN Reason: PAIN Last Admin: 05/27/18 17:36 Dose: 650 mg Albuterol Sulfate (Ventolin 0.083% Nebulizer Soln -) 1 amp NEB Q4H PRN PRN Reason: SHORT OF BREATH/WHEEZING Last Admin: 05/31/18 09:11 Dose: 1 amp Aspirin (Asa -) 81 mg PO DAILY [facility] Last Admin: 06/01/18 09:18 Dose: 81 mg Clonazepam (Klonopin -) 0.5 mg PO Q6H PRN PRN Reason: ANXIETY Last Admin: 05/30/18 22:23 Dose: 0.5 mg Ezetimibe (Zetia -) 10 mg PO Q48H [facility] Last Admin: 05/31/18 19:33 Dose: 10 mg Ferrous Sulfate (Feosol -) 325 mg PO BID [facility] Last Admin: 06/01/18 09:18 Dose: 325 mg Heparin Sodium (Porcine) (Heparin -) 5,000 unit SQ TID [facility] Last Admin: 06/01/18 05:39 Dose: 5,000 unit Hydralazine HCl (Apresoline -) 37.5 mg PO TID [facility] Last Admin: 06/01/18 05:39 Dose: 37.5 mg Insulin Aspart (Novolog Vial Sliding Scale -) 1 vial SQ ACHS [facility]; Protocol Last Admin: 06/01/18 06:51 Dose: Not Given Insulin Detemir (Levemir Vial) 12 units SQ [facility] Last Admin: 05/31/18 21:27 Dose: 12 units Metoprolol Succinate (Toprol Xl -) 50 mg PO DAILY [facility] Last Admin: 06/01/18 09:18 Dose: 50 mg Mometasone Furoate (Asmanex 220mcg -) 1 puff IH BID [facility] Last Admin: 06/01/18 09:17 Dose: 1 puff Nitroglycerin (Nitro-Dur Patch -) 0.2 mg TD DAILY [facility] Last Admin: 05/31/18 09:25 Dose: 0.2 mg Prasugrel (Effient -) 10 mg PO DAILY [facility] Last Admin: 06/01/18 09:19 Dose: 10 mg Propylthiouracil (Ptu -) 150 mg PO TID [facility] Last Admin: 06/01/18 05:39 Dose: 150 mg Rosuvastatin Calcium (Crestor -) 10 mg PO [facility] Last Admin: 05/31/18 21:12 Dose: 10 mg 63 year old woman with PMhx of CKD stage 4 (baseline Cr 2.5-3), Recently diagnosed hyperthyroidism, Hypertension, D-HF, DM type 2, HLD, CAD, CABG, Asthma , PAFib who presented with tachycardia and found to have acute thyrotoxicosis and Cr of 3 with right hydronephrosis. #CKD Stage 4 w/o proteinuira #Right hydronephrosis #Thyrotoxicosis #Hypertension #Anemia Renal function stable this time no indication for FLAT IRONER continue Lasix as per cardiology for management of volume overload continue PTU as per primary iron saturation pending outpatient follow up with urology regarding hydronephrosis Will follow Goyo Cid DO
--- NOTE | 2018-06-01 11:38 | PN ---
Physical Exam: SUBJECTIVE: Patient seen and examined, breathing better, no chest pain, or palpitations. No new complaints. OBJECTIVE: Vital Signs Period Temp Pulse Resp BP Sys/Shankar Pulse Ox Last 24 Hr 98.2 F-98.7 F 87-113 17-20 136-146/75-86 91-94 GENERAL: sitting in chair in no acute distress Neck: positive JVD Chest: no rales or wheezing, positive air entry, limited by habitus Extremities: 3+ pedal non pitting edema Laboratory Results - last 24 hr 05/31/18 05/31/18 06/01/18 16:31 21:17 05:30 Sodium Potassium Chloride Carbon Dioxide Anion Gap BUN Creatinine Creat Clearance w eGFR POC Glucometer 159 211 Random Glucose Calcium Phosphorus Magnesium Ferritin Free T4 Cancelled 06/01/18 06/01/18 05:30 05:30 Sodium 141 Potassium 4.7 Chloride 104 Carbon Dioxide 27 Anion Gap 10 BUN 58 H Creatinine 3.1 H Creat Clearance w eGFR 15.18 POC Glucometer 142 Random Glucose 168 H Calcium 8.7 Phosphorus 5.5 H Magnesium 2.2 Ferritin 63.9 Free T4 Active Medications Generic Name Dose Route Start Last Admin Trade Name Freq PRN Reason Stop Dose Admin Acetaminophen 650 mg 05/27/18 17:00 05/27/18 17:36 Tylenol Oral Solution - PO 650 mg Q6H PRN Administration PAIN Albuterol Sulfate 1 amp 05/26/18 12:51 05/31/18 09:11 Ventolin 0.083% Nebulizer Soln - NEB 1 amp Q4H PRN Administration SHORT OF BREATH/WHEEZING Aspirin 81 mg 05/26/18 10:00 06/01/18 09:18 Asa - PO 81 mg DAILY [facility] Administration Clonazepam 0.5 mg 05/25/18 19:01 05/30/18 22:23 Klonopin - PO 0.5 mg Q6H PRN Administration ANXIETY Ezetimibe 10 mg 05/25/18 19:15 05/31/18 19:33 Zetia - PO 10 mg Q48H [facility] Administration Ferrous Sulfate 325 mg 05/25/18 22:00 06/01/18 09:18 Feosol - PO 325 mg BID [facility] Administration Heparin Sodium (Porcine) 5,000 unit 05/25/18 22:00 06/01/18 05:39 Heparin - SQ 5,000 unit TID [facility] Administration Hydralazine HCl 37.5 mg 05/28/18 14:00 06/01/18 05:39 Apresoline - PO 37.5 mg TID [facility] Administration Insulin Aspart 1 vial 05/26/18 07:00 06/01/18 06:51 Novolog Vial Sliding Scale - SQ Not Given ACHS [facility] Protocol Insulin Detemir 12 units 05/30/18 14:33 05/31/18 21:27 Levemir Vial SQ 12 units HS [facility] Administration Metoprolol Succinate 50 mg 05/31/18 12:00 06/01/18 09:18 Toprol Xl - PO 50 mg DAILY [facility] Administration Mometasone Furoate 1 puff 05/30/18 10:15 06/01/18 09:17 Asmanex 220mcg - IH 1 puff BID [facility] Administration Nitroglycerin 0.2 mg 05/26/18 10:00 05/31/18 09:25 Nitro-Dur Patch - TD 0.2 mg DAILY [facility] Administration Prasugrel 10 mg 05/26/18 10:00 06/01/18 09:19 Effient - PO 10 mg DAILY [facility] Administration Propylthiouracil 150 mg 05/30/18 06:00 06/01/18 05:39 Ptu - PO 150 mg TID [facility] Administration Rosuvastatin Calcium 10 mg 05/25/18 22:00 05/31/18 21:12 Crestor - PO 10 mg HS [facility] Administration ASSESSMENT/PLAN: 62-year-old woman with a history of chronic diastolic heart failure, type 2 DM, HTN, hyperlipidemia, CAD, CABG, asthma, KATINA, anxiety, pulm HTN, PAF who presented to the ER with palpitations and found to be acute thyrotoxicosis -Acute thyrotoxicosis -Sinus tachycardia, from above -LLL atelectasis, vs infiltrates, Afebrile, normal WBC and CT chest neg for infiltrate/consolidation -Asthma, with bronchospam, ?Beta isrrael induced -OBI on CKD stage III (baseline cr around 2.6-2.8) -Acute on chronic diastolic HF exacerbation -Right hydronephrosis with outlet obstruction -Anemia of chronic disease -HTN -CAD s/p 2 PCI -PAF, in sinus currenty Plan: Endocrine input noted, COntinue PTU, free T4 noted, monitor for now. Radioactive iodine as outpatient. Cardiology input noted, increased toprol to 50 mg daily, monitor for worsening bronchospams. Off coreg currently Additional lasix 80 mg IV today, monitor renal function and response. Nephrology input noted. Renal scan noted. Urology input noted, follow up recs. Trend H/h Levemir 12 units hs, ISS, diabetic diet. Prasugrel Continue hydralazine DVTPPX heparin Dispo pending clinical improvement. Plan discussed with patient in detail, all questions answered. Discussed with nursing. Visit type - Emergency Visit Emergency Visit: Yes ED Registration Date: 05/25/18 Care time: The patient presented to the Emergency Department on the above date and was hospitalized for further evaluation of their emergent condition. - New Patient This patient is new to me today: No - Critical Care Critical Care patient: No - Discharge Referral Referred to [facility] Med P.C.: No
[2018-06-01] MEDS: FUROSEMIDE 40 MG/4 ML INJECTABLE VIAL IVPUSH ONE (12:02)
[2018-06-01 14:59] VITALS: BMI 35.4
[2018-06-01] MEDS ORDERED: INSULIN (NOVOLOG) ASPART 100 UNITS/ML 10ML VIAL ONE (20:57)
[2018-06-01] MEDS: ROSUVASTATIN CA 10 MG TABLET (FP) PO SCH (21:04)
[2018-06-01] MEDS: INSULIN (LEVEMIR) 100 UNITS/ML UNITS SQ SCH (21:05)
[2018-06-02 06:10] LABS: SERUM IRON SATURATION 28 % (15-55); TOTAL IRON BINDING CAPACITY 269 ug/dL (250-450); UIBC 194 ug/dL (118-369)
[2018-06-02 06:19] LABS: BASO % 0.8 % (0-2.0); EOS % 4.3 % (0-4.5); HEMATOCRIT 24.7 % (32.4-45.2); HEMOGLOBIN 8.2 GM/dL (10.7-15.3); LYMPH % 31.9 % (8-40); MCHC 33.1 g/dl (32.0-36.0); MEAN CELL VOLUME 75.6 fl (80-96); MEAN PLT VOLUME 8.2 fl (7.5-11.1); MONO % 13.5 % (3.8-10.2); NEUT % 49.5 % (42.8-82.8); PLATELET COUNT 210 K/MM3 (134-434); RBC 3.27 M/mm3 (3.60-5.2); RDW 13.8 % (11.6-15.6); WHITE BLOOD COUNT 5.9 K/mm3 (4.0-10.0)
[2018-06-02] MEDS: hydrALAZINE HCL 25 MG TABLET (FP) PO SCH ×3 (06:42→21:20)
[2018-06-02] MEDS: PROPYLTHIOURACIL 50 MG TABLET (UD) PO SCH ×3 (06:42→21:20)
[2018-06-02] MEDS: INSULIN SLIDING SCALE (NOVOLOG) 1 VIAL SQ SCH ×4 (06:43→21:14)
[2018-06-02] MEDS: HEPARIN NA (PORCINE) 5,000 UNITS/ML 1ML VIAL SQ SCH ×3 (06:43→21:13)
[2018-06-02 06:55] LABS: CHLORIDE 102 mmol/L (98-107); POTASSIUM 4.5 mmol/L (3.5-5.1); SODIUM 138 mmol/L (136-145)
[2018-06-02 07:02] LABS: ANION GAP 9 (8-16); BLOOD UREA NITROGEN 63 mg/dL (7-18); CALCIUM 8.6 mg/dL (8.5-10.1); CO2 27 mmol/L (21-32); CREATININE 3.2 mg/dL (0.55-1.02); GLUCOSE,RANDOM 116 mg/dL (74-106); MAGNESIUM 2.2 mg/dL (1.8-2.4); PHOSPHOROUS 5.4 mg/dL (2.5-4.9)
[2018-06-02] MEDS: ALBUTEROL SO4 0.083% IH SOL 2.5 MG/3 ML VIAL.NEB. NEB PRN (07:54)
[2018-06-02] MEDS ORDERED: PT OWN MED DRAWER 7, Y5N ONE ×2 (08:21→21:31)
--- NOTE | 2018-06-02 08:28 | PN ---
Teaching Attending Note Name of Resident: Tayler Buchanan ATTENDING PHYSICIAN STATEMENT I saw and evaluated the patient. I reviewed the resident's note and discussed the case with the resident. I agree with the resident's findings and plan as documented with exceptions below. SUBJECTIVE: Patient seen and examined. NO dyspnea, chest pain or palpitations. OBJECTIVE: Vital Signs Period Temp Pulse Resp BP Sys/Shankar Pulse Ox Last 24 Hr 98.0 F-98.7 F 85-116 16-20 131-144/67-79 94-98 Intake & Output 05/30/18 05/31/18 06/01/18 06/02/18 23:59 23:59 23:59 23:59 Intake Total 1000 1110 1140 130 Output Total 450 500 800 Balance 550 1110 640 -670 Weight 214 lb 9.6 oz 213 lb 8 oz 213 lb 214 lb 4 oz General: sitting in chair, no acute distress Abdomen:soft, obese, NT Extremities: pedal non pitting edema above knees Chest: limited by body habitus but positive air entry, no rales or wheezing Home Medications Medication Instructions Recorded Aspirin [ASA -] 81 mg PO DAILY #1 tab 03/06/13 Ferrous Sulfate [Feosol] 325 mg PO BID #0 ud 05/08/15 Prasugrel Hydrochloride [Effient -] 10 mg PO DAILY #0 tab 05/08/15 Albuterol 0.083% Nebulizer Bibiana 1 neb NEB QID 09/14/16 [Ventolin 0.083% Nebulizer Soln -] Insulin Glargine,Hum.rec.anlog 30 units SQ HS 04/29/17 [Lantus (10mL VIAL) -] Insulin Lispro [Humalog] 100 unit SQ PRN 04/29/17 Budesonide/Formeterol Fumarate 2 inh PO BID 06/13/17 [SYMBICORT 160/4.5mcg -] clonazePAM [KlonoPIN] 0.5 mg PO QID PRN 06/13/17 Carvedilol Phosphate [Coreg Cr -] 10 mg PO DAILY #30 cap 06/23/17 Hydralazine HCl 50 mg PO TID #90 tablet 06/23/17 Albuterol 0.083% Nebulizer Bibiana 1 amp NEB Q4H #1 amp 12/20/17 [Ventolin 0.083% Nebulizer Soln -] Ezetimibe [Zetia -] 10 mg PO Q48H 30 Days #30 tablet 12/20/17 Nitroglycerin Patch [Nitro-Dur 0.2 mg TD DAILY #30 patch.td24 12/20/17 Patch -] Torsemide [Demadex -] 20 mg PO DAILY #60 tablet 12/20/17 Rosuvastatin [Crestor -] 10 mg PO HS #30 tablet 04/15/18 Brimonidine Tartrate [Alphagan P 3 drop OU Q8H 05/27/18 0.1% -] Latanoprost 0.005% Eye Drops 1 drop OU DAILY 05/27/18 [Xalatan 0.005% Eye Drops -] Methimazole [Tapazole -] 5 mg PO Q8H 05/27/18 Pantoprazole Sodium [Protonix -] 40 mg PO DAILY 05/27/18 Spironolactone 12.5 mg PO DAILY 05/27/18 Active Medications Acetaminophen (Tylenol Oral Solution -) 650 mg PO Q6H PRN PRN Reason: PAIN Last Admin: 05/27/18 17:36 Dose: 650 mg Albuterol Sulfate (Ventolin 0.083% Nebulizer Soln -) 1 amp NEB Q4H PRN PRN Reason: SHORT OF BREATH/WHEEZING Last Admin: 06/02/18 07:54 Dose: 1 amp Aspirin (Asa -) 81 mg PO DAILY [facility] Last Admin: 06/01/18 09:18 Dose: 81 mg Clonazepam (Klonopin -) 0.5 mg PO Q6H PRN PRN Reason: ANXIETY Last Admin: 05/30/18 22:23 Dose: 0.5 mg Ezetimibe (Zetia -) 10 mg PO Q48H [facility] Last Admin: 05/31/18 19:33 Dose: 10 mg Ferrous Sulfate (Feosol -) 325 mg PO BID [facility] Last Admin: 06/01/18 21:04 Dose: 325 mg Heparin Sodium (Porcine) (Heparin -) 5,000 unit SQ TID [facility] Last Admin: 06/02/18 06:43 Dose: 5,000 unit Hydralazine HCl (Apresoline -) 37.5 mg PO TID [facility] Last Admin: 06/02/18 06:42 Dose: 37.5 mg Insulin Aspart (Novolog Vial Sliding Scale -) 1 vial SQ ACHS [facility]; Protocol Last Admin: 06/02/18 06:43 Dose: Not Given Insulin Detemir (Levemir Vial) 12 units SQ [facility] Last Admin: 06/01/18 21:05 Dose: 12 units Metoprolol Succinate (Toprol Xl -) 50 mg PO DAILY [facility] Last Admin: 06/01/18 09:18 Dose: 50 mg Mometasone Furoate (Asmanex 220mcg -) 1 puff IH BID [facility] Last Admin: 06/01/18 21:03 Dose: 1 puff Nitroglycerin (Nitro-Dur Patch -) 0.2 mg TD DAILY [facility] Last Admin: 06/01/18 09:08 Dose: 0.2 mg Prasugrel (Effient -) 10 mg PO DAILY [facility] Last Admin: 06/01/18 09:19 Dose: 10 mg Propylthiouracil (Ptu -) 150 mg PO TID [facility] Last Admin: 06/02/18 06:42 Dose: 150 mg Rosuvastatin Calcium (Crestor -) 10 mg PO [facility] Last Admin: 06/01/18 21:04 Dose: 10 mg Laboratory Results - last 24 hr 06/01/18 06/01/18 06/01/18 05:30 05:30 05:30 WBC RBC Hgb Hct MCV MCH MCHC RDW Plt Count MPV Absolute Neuts (auto) Neutrophils % Lymphocytes % Monocytes % Eosinophils % Basophils % Nucleated RBC % Sodium 141 Potassium 4.7 Chloride 104 Carbon Dioxide 27 Anion Gap 10 BUN 58 H Creatinine 3.1 H Creat Clearance w eGFR 15.18 POC Glucometer Random Glucose 168 H Calcium 8.7 Phosphorus 5.5 H Magnesium 2.2 Iron 75 TIBC 269 Iron Saturation 28 Ferritin 63.9 Free T4 Cancelled 2.12 H 06/01/18 06/01/18 06/01/18 11:46 16:45 21:02 WBC RBC Hgb Hct MCV MCH MCHC RDW Plt Count MPV Absolute Neuts (auto) Neutrophils % Lymphocytes % Monocytes % Eosinophils % Basophils % Nucleated RBC % Sodium Potassium Chloride Carbon Dioxide Anion Gap BUN Creatinine Creat Clearance w eGFR POC Glucometer 201 135 184 Random Glucose Calcium Phosphorus Magnesium Iron TIBC Iron Saturation Ferritin Free T4 06/02/18 06/02/18 06/02/18 05:30 05:30 05:30 WBC 5.9 RBC 3.27 L Hgb 8.2 L Hct 24.7 L MCV 75.6 L MCH 25.0 L MCHC 33.1 RDW 13.8 Plt Count 210 MPV 8.2 Absolute Neuts (auto) 2.9 Neutrophils % 49.5 Lymphocytes % 31.9 Monocytes % 13.5 H Eosinophils % 4.3 Basophils % 0.8 Nucleated RBC % 0 Sodium 138 Potassium 4.5 Chloride 102 Carbon Dioxide 27 Anion Gap 9 BUN 63 H Creatinine 3.2 H Creat Clearance w eGFR 14.63 POC Glucometer Random Glucose 116 H Calcium 8.6 Phosphorus 5.4 H Magnesium 2.2 Iron TIBC Iron Saturation Ferritin Free T4 Cancelled 06/02/18 06:41 WBC RBC Hgb Hct MCV MCH MCHC RDW Plt Count MPV Absolute Neuts (auto) Neutrophils % Lymphocytes % Monocytes % Eosinophils % Basophils % Nucleated RBC % Sodium Potassium Chloride Carbon Dioxide Anion Gap BUN Creatinine Creat Clearance w eGFR POC Glucometer 122 Random Glucose Calcium Phosphorus Magnesium Iron TIBC Iron Saturation Ferritin Free T4 ASSESSMENT AND PLAN: 62-year-old woman with a history of chronic diastolic heart failure, type 2 DM, HTN, hyperlipidemia, CAD, CABG, asthma, KATINA, anxiety, pulm HTN, PAF who presented to the ER with palpitations and found to be acute thyrotoxicosis -Acute thyrotoxicosis -Sinus tachycardia, from above -LLL atelectasis, vs infiltrates, Afebrile, normal WBC and CT chest neg for infiltrate/consolidation -Asthma, with bronchospam, ?Beta isrrael induced -OBI on CKD stage III (baseline cr around 2.6-2.8) -Acute on chronic diastolic HF exacerbation -Right hydronephrosis with outlet obstruction -Anemia, Acute on Chronic -HTN -CAD s/p 2 PCI -PAF, in sinus currenty Plan: Endocrine input noted, COntinue PTU, free T4 noted, monitor for now. Radioactive iodine as outpatient. Cardiology input noted, increase toprol XL to 75 mg daily, off coreg curretnly. Additional lasix 80 mg IV today, patient agreable, monitor renal function and response. Nephrology input noted. Renal scan noted. Urology input noted, follow up recs. h/h trending down, no gross evidence of bleed. Iron panel noted, Check FOBT. Levemir 12 units hs, ISS, diabetic diet. Prasugrel Continue hydralazine DVTPPX heparin Dispo pending clinical improvement, in 2-3 days if volume status and symptoms continue to improve. Plan discussed with patient in detail, all questions answered.
[2018-06-02] MEDS: MOMETASONE FUROATE 220 MCG/IH INHALER IH SCH ×3 (09:42→21:28)
[2018-06-02] MEDS: FERROUS SO4 325 MG TABLET (FP) PO SCH ×2 (09:42→21:21)
[2018-06-02] MEDS: ASPIRIN 81 MG CHEWABLE TABLETS PO SCH (09:42)
[2018-06-02] MEDS: NITROGLYCERIN 0.2 MG/HOUR TD PATCH TD SCH (09:42)
[2018-06-02] MEDS: PRASUGREL HCL 10 MG TAB PO SCH (09:43)
[2018-06-02] MEDS ORDERED: INSULIN (LEVEMIR) 100 UNITS/ML UNITS SQ SCH (10:04)
[2018-06-02] MEDS ORDERED: metoPROLOL SUCCINATE 25 MG TAB.SR.24H (FP) PO ONE (10:45)
--- NOTE | 2018-06-02 10:50 | PN ---
Progress Note (short form) - Note Progress Note: s: pt reports making a lot of urine after lasix yesterday and feels a little less sob. no cp palps dizzy o: Current Medications Generic Name Dose Route Start Last Admin Trade Name Freq PRN Reason Stop Dose Admin Acetaminophen 650 mg 05/27/18 17:00 05/27/18 17:36 Tylenol Oral Solution - PO 650 mg Q6H PRN Administration PAIN Albuterol Sulfate 1 amp 05/26/18 12:51 06/02/18 07:54 Ventolin 0.083% Nebulizer Soln - NEB 1 amp Q4H PRN Administration SHORT OF BREATH/WHEEZING Aspirin 81 mg 05/26/18 10:00 06/02/18 09:42 Asa - PO 81 mg DAILY [facility] Administration Clonazepam 0.5 mg 05/25/18 19:01 05/30/18 22:23 Klonopin - PO 0.5 mg Q6H PRN Administration ANXIETY Ezetimibe 10 mg 05/25/18 19:15 05/31/18 19:33 Zetia - PO 10 mg Q48H [facility] Administration Ferrous Sulfate 325 mg 05/25/18 22:00 06/02/18 09:42 Feosol - PO 325 mg BID [facility] Administration Heparin Sodium (Porcine) 5,000 unit 05/25/18 22:00 06/02/18 06:43 Heparin - SQ 5,000 unit TID [facility] Administration Hydralazine HCl 37.5 mg 05/28/18 14:00 06/02/18 06:42 Apresoline - PO 37.5 mg TID [facility] Administration Insulin Aspart 1 vial 05/26/18 07:00 06/02/18 06:43 Novolog Vial Sliding Scale - SQ Not Given [facility] Protocol Insulin Detemir 16 units 06/02/18 10:04 Levemir Vial SQ HS [facility] Metoprolol Succinate 50 mg 05/31/18 12:00 06/02/18 09:42 Toprol Xl - PO 06/02/18 23:59 50 mg DAILY [facility] Administration Metoprolol Succinate 25 mg 06/02/18 10:45 Toprol Xl - PO 06/02/18 10:46 ONCE ONE Metoprolol Succinate 75 mg 06/03/18 10:00 Toprol Xl - PO DAILY [facility] Mometasone Furoate 1 puff 05/30/18 10:15 06/02/18 09:42 Asmanex 220mcg - IH 1 puff BID [facility] Administration Nitroglycerin 0.2 mg 05/26/18 10:00 06/02/18 09:42 Nitro-Dur Patch - TD 0.2 mg DAILY [facility] Administration Prasugrel 10 mg 05/26/18 10:00 06/02/18 09:43 Effient - PO 10 mg DAILY [facility] Administration Propylthiouracil 150 mg 05/30/18 06:00 06/02/18 06:42 Ptu - PO 150 mg TID [facility] Administration Rosuvastatin Calcium 10 mg 05/25/18 22:00 06/01/18 21:04 Crestor - PO 10 mg HS [facility] Administration Vital Signs Period Temp Pulse Resp BP Sys/Shankar Pulse Ox Last 24 Hr 98.0 F-98.7 F 85-116 16-20 131-144/67-79 94-98 - Objective Vital Signs: Vital Signs Temperature 98.7 F 06/01/18 07:32 Pulse Rate 87 06/01/18 07:32 Respiratory Rate 18 06/01/18 07:33 Blood Pressure 143/84 06/01/18 07:32 O2 Sat by Pulse Oximetry (%) 94 L 06/01/18 07:33 Constitutional: Yes: No Distress, Calm Eyes: No: Sclera Icterus HENT: No: Nasal Congestion Cardiovascular: Yes: Regular Rate and Rhythm, JVD (8-10 cm), S1, S2, Other (PMI non diplaced). No: Gallop, Murmur Respiratory: Yes: CTA Bilaterally. No: Accessory Muscle Use, Rales, Wheezes Gastrointestinal: Yes: Normal Bowel Sounds, Soft. No: Tenderness Extremities: No: Cold Edema: Yes Integumentary: No: Jaundice Neurological: Yes: Alert, Oriented (x3) Psychiatric: No: Agitated Labs: CBC, BMP 06/02/18 05:30 06/02/18 05:30 Assessment/Plan ECG--sinus tach 138 bpm, nonspecific ST-T changes CT chest: small bilat effusions with atx. o/w clear lungs. R sided hydronephrosis [facility] 2014: unchanged 70-80% distal RCA lesion. patent mLAD stent. 80-90% pLCX-- [facility]AREN Echo 12/2016: TDS. nl LV size/EF. mild LVH. grade 2 d.d., hi E/e' = high LAP. nl RV. mild LAE. mild-mod MR, mod TR. mild pHTN (46 mmHg). tele:sr acute on chronic diast CHF: -exacerbated recently by uncontrolled hyperthyroidism with tachycardia (and htn) -new dry wt due to hyperthyroid-related wt loss. has been 221-225 at home -BP and HR control as doing (as med intolerances allow) -torsemide held here (was taking 40mg qd at home recently) -06/01: s/p lasix 40 IV x 3 doses (refused 80mg IV dose)--last dose 05/29. started on torsemide 40 qd on 05/31, wt up 1 lb today and she has 8-10cm of JVD. her chf sx's (sob without wheeze/cough of asthma, and fluid in stomach) have returned. 06/02: after 80 iv lasix yesterday pt feels a little better and reports good uop. repeat same 80 iv lasix today, reassess tomorrow -will probably need torsemide 50-100mg qd until thyroid status normalizes, in order to control her ongoing chf tendencies paroxysmal atrial tach, sinus tach, palpitations, thyrotoxicosis: -remote h/o intolerance to metoprolol, atenolol, ? 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 -low dose diltiazem at home ? caused GI upset (30 tid dose)--deferring re-trial -coreg CR changed to metopr succ, now at 50mg -in and out of PAT with HR 110s range (mostly in over past 24 hrs). -sinus HRs much better controlled now vs on DOA -continue metoprolol 50 qd as doing. -will plan to tolerate frequent PAT with HRs <120 until thyroid fxn normalizes, as this is not likely to cause refractory sx's of palpitations or refractory HF labile HTN: -prior reasonable control, lost of late due to hyperthyroidism which was initially untreated for several weeks -mult med intolerances in past -changed hydral 50 tid back to 37.5 tid (intolerable reflex tachycardia/ palpitations on 50mg dose in past) -coreg CR has been held, while metoprolol given for tachycardia control -bp controlled CAD, prior NSTEMI/PCI: -non-ischemic ECG here (ST-Ts likely rate-related). trop 0.3 x 2 intermediate range, flat trend--consistent with chronic elevation from pt with known chronically elevated filling pressures, ? contribution from tachycardia as well -cont home DAPT (aspirin/effient), statin with zetia, bb OBI on CKD: -baseline creat runs 2.5-2.8 -initially creat 2.5 on DOA, has been stable 2.9-3.1 at present -R sided hydronephrosis on CT scan--? if contributing to her renal dysfunction - following, considering intervention mod-severe asthma, frequent exacerbations: -have downtitrated b-isrrael (previously coreg CR) to minimal tolerated dose ( requires for BP and tachycardia control)--was on coreg CR 10mg -bb changed recently to control tachycardia in setting of thyrotoxicosis -airways tx per pulmonary -currently stable HPL: -intolerant of mult statins -LDL at baseline is >200 -well controlled on home rosuvastatin plus zetia regimen with LDL near 100-120 chronic anemia: -baseline hgb runs 9s-10s. counts stable here.
--- NOTE | 2018-06-02 12:41 | PN ---
Progress Note (short form) - Note Progress Note: PULMONARY States breathing improving. +nonproductive cough. Did not use her CPAP last night. Vital Signs Period Temp Pulse Resp BP Sys/Shankar Pulse Ox Last 24 Hr 98.0 F-98.7 F 85-116 16-20 131-144/67-79 94-98 Intake & Output 05/30/18 05/31/18 06/01/18 06/02/18 23:59 23:59 23:59 23:59 Intake Total 1000 1110 1140 370 Output Total 450 500 800 Balance 550 1110 640 -430 Weight 97.341 kg 96.842 kg 96.615 kg 97.182 kg Gen: NAD in chair Heart: RRR Lung: decreased breath sounds at the bases Abd: soft, nontender Ext: + edema CBC, BMP 06/02/18 05:30 06/02/18 05:30 Active Medications Acetaminophen (Tylenol Oral Solution -) 650 mg PO Q6H PRN PRN Reason: PAIN Last Admin: 05/27/18 17:36 Dose: 650 mg Albuterol Sulfate (Ventolin 0.083% Nebulizer Soln -) 1 amp NEB Q4H PRN PRN Reason: SHORT OF BREATH/WHEEZING Last Admin: 06/02/18 07:54 Dose: 1 amp Aspirin (Asa -) 81 mg PO DAILY [facility] Last Admin: 06/02/18 09:42 Dose: 81 mg Clonazepam (Klonopin -) 0.5 mg PO Q6H PRN PRN Reason: ANXIETY Last Admin: 05/30/18 22:23 Dose: 0.5 mg Ezetimibe (Zetia -) 10 mg PO Q48H [facility] Last Admin: 05/31/18 19:33 Dose: 10 mg Ferrous Sulfate (Feosol -) 325 mg PO BID [facility] Last Admin: 06/02/18 09:42 Dose: 325 mg Heparin Sodium (Porcine) (Heparin -) 5,000 unit SQ TID [facility] Last Admin: 06/02/18 06:43 Dose: 5,000 unit Hydralazine HCl (Apresoline -) 37.5 mg PO TID [facility] Last Admin: 06/02/18 06:42 Dose: 37.5 mg Insulin Aspart (Novolog Vial Sliding Scale -) 1 vial SQ [facility]; Protocol Last Admin: 07/05/18 11:35 Dose: 4 units Insulin Detemir (Levemir Vial) 16 units SQ [facility] Metoprolol Succinate (Toprol Xl -) 50 mg PO DAILY [facility] Stop: 06/02/18 23:59 Last Admin: 06/02/18 09:42 Dose: 50 mg Metoprolol Succinate (Toprol Xl -) 75 mg PO DAILY [facility] Mometasone Furoate (Asmanex 220mcg -) 1 puff IH BID [facility] Last Admin: 06/02/18 09:42 Dose: 1 puff Nitroglycerin (Nitro-Dur Patch -) 0.2 mg TD DAILY [facility] Last Admin: 06/02/18 09:42 Dose: 0.2 mg Prasugrel (Effient -) 10 mg PO DAILY [facility] Last Admin: 06/02/18 09:43 Dose: 10 mg Propylthiouracil (Ptu -) 150 mg PO TID [facility] Last Admin: 06/02/18 06:42 Dose: 150 mg Rosuvastatin Calcium (Crestor -) 10 mg PO HS [facility] Last Admin: 06/01/18 21:04 Dose: 10 mg A/P Acute on Chronic Diastolic Heart Failure Asthma Obstructive Sleep Apnea Acute on Chronic Renal Failure Pulmonary HTN CAD - continue lasix - monitor urine output, creatinine - daily weights - O2 to keep SpO2 >90% - inhaled bronchodilators - encourage CPAP at night - DVT prophylaxis
[2018-06-02] MEDS ORDERED: FUROSEMIDE 100 MG/10 ML INJECTABLE VIAL IVPB ONE (13:30)
--- NOTE | 2018-06-02 13:32 | PN ---
Progress Note (short form) - Note Progress Note: Renal follow up for CKD Pt seen and examined at the bedside awake and alert complains of cough no chest pain, no sob legs remain swollen making urine Vital Signs Temperature 98.5 F 06/02/18 08:02 Pulse Rate 106 H 06/02/18 08:02 Respiratory Rate 18 06/02/18 08:03 Blood Pressure 141/74 06/02/18 08:02 O2 Sat by Pulse Oximetry (%) 94 L 06/02/18 08:03 Intake & Output 05/30/18 05/31/18 06/01/18 06/02/18 23:59 23:59 23:59 23:59 Intake Total 1000 1110 1140 370 Output Total 450 500 800 Balance 550 1110 640 -430 Weight 97.341 kg 96.842 kg 96.615 kg 97.182 kg NAD + edema in LE CBC, BMP 06/02/18 05:30 06/02/18 05:30 Current Medications Acetaminophen (Tylenol Oral Solution -) 650 mg PO Q6H PRN PRN Reason: PAIN Last Admin: 05/27/18 17:36 Dose: 650 mg Albuterol Sulfate (Ventolin 0.083% Nebulizer Soln -) 1 amp NEB Q4H PRN PRN Reason: SHORT OF BREATH/WHEEZING Last Admin: 06/02/18 07:54 Dose: 1 amp Aspirin (Asa -) 81 mg PO DAILY [facility] Last Admin: 06/02/18 09:42 Dose: 81 mg Clonazepam (Klonopin -) 0.5 mg PO Q6H PRN PRN Reason: ANXIETY Last Admin: 05/30/18 22:23 Dose: 0.5 mg Ezetimibe (Zetia -) 10 mg PO Q48H [facility] Last Admin: 05/31/18 19:33 Dose: 10 mg Ferrous Sulfate (Feosol -) 325 mg PO BID [facility] Last Admin: 06/02/18 09:42 Dose: 325 mg Furosemide (Lasix Injection -) 80 mg IVPB ONCE ONE Stop: 06/02/18 13:31 Heparin Sodium (Porcine) (Heparin -) 5,000 unit SQ TID [facility] Last Admin: 06/02/18 06:43 Dose: 5,000 unit Hydralazine HCl (Apresoline -) 37.5 mg PO TID [facility] Last Admin: 06/02/18 06:42 Dose: 37.5 mg Insulin Aspart (Novolog Vial Sliding Scale -) 1 vial SQ [facility]; Protocol Last Admin: 06/02/18 11:35 Dose: 4 units Insulin Detemir (Levemir Vial) 16 units SQ [facility] Metoprolol Succinate (Toprol Xl -) 50 mg PO DAILY [facility] Stop: 06/02/18 23:59 Last Admin: 06/02/18 09:42 Dose: 50 mg Metoprolol Succinate (Toprol Xl -) 75 mg PO DAILY [facility] Mometasone Furoate (Asmanex 220mcg -) 1 puff IH BID [facility] Last Admin: 06/02/18 09:42 Dose: 1 puff Nitroglycerin (Nitro-Dur Patch -) 0.2 mg TD DAILY [facility] Last Admin: 06/02/18 09:42 Dose: 0.2 mg Prasugrel (Effient -) 10 mg PO DAILY [facility] Last Admin: 06/02/18 09:43 Dose: 10 mg Propylthiouracil (Ptu -) 150 mg PO TID [facility] Last Admin: 06/02/18 06:42 Dose: 150 mg Rosuvastatin Calcium (Crestor -) 10 mg PO HS [facility] Last Admin: 06/01/18 21:04 Dose: 10 mg 63 year old woman with PMhx of CKD stage 4 (baseline Cr 2.5-3), Recently diagnosed hyperthyroidism, Hypertension, D-HF, DM type 2, HLD, CAD, CABG, Asthma , PAFib who presented with tachycardia and found to have acute thyrotoxicosis and Cr of 3 with right hydronephrosis. #CKD Stage 4 w/o proteinuira #Right hydronephrosis #Thyrotoxicosis #Hypertension #Anemia Renal function stable Continue Lasix as per Cardiology, will give Lasix 80mg IVPB today trend renal function and electrolytes continue PTU as per primary iron saturation pending outpatient follow up with urology regarding hydronephrosis Will follow Goyo Cid DO
[2018-06-02] MEDS: FUROSEMIDE 40 MG/4 ML INJECTABLE VIAL IVPUSH ONE (14:08)
--- NOTE | 2018-06-02 14:53 | PN ---
Physical Exam: SUBJECTIVE: Patient seen and examined this morning at bedside. No new complaints. No overnight events as per nursing. Denies fevers, chills, chest pain, SOB. OBJECTIVE: Vital Signs Period Temp Pulse Resp BP Sys/Shankar Pulse Ox Last 24 Hr 98.0 F-98.7 F 85-116 16-20 132-144/70-79 94-98 Vital Signs Temp 98.5 F 06/02/18 08:02 Pulse 106 H 06/02/18 08:02 Resp 18 06/02/18 08:03 BP 141/74 06/02/18 08:02 Pulse Ox 94 L 06/02/18 08:03 Intake & Output 06/01/18 06/02/18 06/02/18 23:59 11:59 23:59 Intake Total 660 130 240 Output Total 500 800 Balance 160 -670 240 Weight 96.615 kg 97.182 kg Intake: IV 40 10 SALINE LOCK 40 10 IVPB 0 Oral 620 120 240 Output: Urine 500 800 Void 500 800 Other: Voiding Method Toilet Toilet Toilet # Unmeasured Voids Void 2 Bowel Movement No Yes # Bowel Movements 1 Height 1.65 m Body Mass Index (BMI) 35.4 Weight Measurement Method Standing Scale GENERAL: The patient is awake, alert, and fully oriented, in no acute distress. LUNGS: Breath sounds equal, CTA B/L HEART: Irregular pulse, S1, S2 without murmur, rub or gallop. ABDOMEN: Obese, Soft, nontender, distended, normoactive bowel sounds EXTREMITIES: 2+ lower extremity nonpitting edema Laboratory Results - last 24 hr 06/01/18 06/01/18 06/01/18 05:30 05:30 16:45 WBC RBC Hgb Hct MCV MCH MCHC RDW Plt Count MPV Absolute Neuts (auto) Neutrophils % Lymphocytes % Monocytes % Eosinophils % Basophils % Nucleated RBC % Sodium Potassium Chloride Carbon Dioxide Anion Gap BUN Creatinine Creat Clearance w eGFR POC Glucometer 135 Random Glucose Calcium Phosphorus Magnesium Iron 75 TIBC 269 Iron Saturation 28 Free T4 2.12 H 06/01/18 06/02/18 06/02/18 21:02 05:30 05:30 WBC RBC Hgb Hct MCV MCH MCHC RDW Plt Count MPV Absolute Neuts (auto) Neutrophils % Lymphocytes % Monocytes % Eosinophils % Basophils % Nucleated RBC % Sodium 138 Potassium 4.5 Chloride 102 Carbon Dioxide 27 Anion Gap 9 BUN 63 H Creatinine 3.2 H Creat Clearance w eGFR 14.63 POC Glucometer 184 Random Glucose 116 H Calcium 8.6 Phosphorus 5.4 H Magnesium 2.2 Iron TIBC Iron Saturation Free T4 Cancelled 1.00 06/02/18 06/02/18 06/02/18 05:30 06:41 11:27 WBC 5.9 RBC 3.27 L Hgb 8.2 L Hct 24.7 L MCV 75.6 L MCH 25.0 L MCHC 33.1 RDW 13.8 Plt Count 210 MPV 8.2 Absolute Neuts (auto) 2.9 Neutrophils % 49.5 Lymphocytes % 31.9 Monocytes % 13.5 H Eosinophils % 4.3 Basophils % 0.8 Nucleated RBC % 0 Sodium Potassium Chloride Carbon Dioxide Anion Gap BUN Creatinine Creat Clearance w eGFR POC Glucometer 122 209 Random Glucose Calcium Phosphorus Magnesium Iron TIBC Iron Saturation Free T4 Active Medications Acetaminophen (Tylenol Oral Solution -) 650 mg PO Q6H PRN PRN Reason: PAIN Last Admin: 05/27/18 17:36 Dose: 650 mg Albuterol Sulfate (Ventolin 0.083% Nebulizer Soln -) 1 amp NEB Q4H PRN PRN Reason: SHORT OF BREATH/WHEEZING Last Admin: 06/02/18 07:54 Dose: 1 amp Aspirin (Asa -) 81 mg PO DAILY [facility] Last Admin: 06/02/18 09:42 Dose: 81 mg Clonazepam (Klonopin -) 0.5 mg PO Q6H PRN PRN Reason: ANXIETY Last Admin: 05/30/18 22:23 Dose: 0.5 mg Ezetimibe (Zetia -) 10 mg PO Q48H [facility] Last Admin: 05/31/18 19:33 Dose: 10 mg Ferrous Sulfate (Feosol -) 325 mg PO BID [facility] Last Admin: 06/02/18 09:42 Dose: 325 mg Heparin Sodium (Porcine) (Heparin -) 5,000 unit SQ TID [facility] Last Admin: 06/02/18 14:10 Dose: Not Given Hydralazine HCl (Apresoline -) 37.5 mg PO TID [facility] Last Admin: 06/02/18 14:07 Dose: 37.5 mg Insulin Aspart (Novolog Vial Sliding Scale -) 1 vial SQ [facility]; Protocol Last Admin: 06/02/18 11:35 Dose: 4 units Insulin Detemir (Levemir Vial) 16 units SQ [facility] Metoprolol Succinate (Toprol Xl -) 50 mg PO DAILY [facility] Stop: 06/02/18 23:59 Last Admin: 06/02/18 09:42 Dose: 50 mg Metoprolol Succinate (Toprol Xl -) 75 mg PO DAILY [facility] Mometasone Furoate (Asmanex 220mcg -) 1 puff IH BID [facility] Last Admin: 06/02/18 09:42 Dose: 1 puff Nitroglycerin (Nitro-Dur Patch -) 0.2 mg TD DAILY [facility] Last Admin: 06/02/18 09:42 Dose: 0.2 mg Prasugrel (Effient -) 10 mg PO DAILY [facility] Last Admin: 06/02/18 09:43 Dose: 10 mg Propylthiouracil (Ptu -) 150 mg PO TID [facility] Last Admin: 06/02/18 14:08 Dose: 150 mg Rosuvastatin Calcium (Crestor -) 10 mg PO [facility] Last Admin: 06/01/18 21:04 Dose: 10 mg ASSESSMENT/PLAN: 63 y/o F with a PMHx of chronic diastolic heart failure, T2DM, HTN, hyperlipidemia, CAD, CABG, asthma, KATINA, anxiety, pulm HTN, PAF who presented to the ER with palpitations and found to be in acute thyrotoxicosis 1. Acute thyrotoxicosis - Free T4: 1.0 - Continue PTU 150 mg PO TID - Dr. Gonsales consulted, will discuss what the Free T4 goal should be - Will plan for radioactive iodine as outpatient 2. Sinus tachycardia - Due to acute thyrotoxicosis remains irregular and tachycardic - Cardio consulted, appreciate recommendations - Increased Metoprolol Succinate to 75 mg PO DAILY - Will monitor respiratory status as patient has hx of Asthma 3. Acute on chronic diastolic CHF - Remains volume overloaded - As per nephrology consult, Lasix was switched to Torsemide 40 mg PO DAILY [facility] - Additional Lasix 80mg IV given today - Strict I&O, daily weights - Will monitor BMP, Mag and Phos 4. LLL atelectasis vs infiltrate - ABx held as patient remains afebrile and without white count - CT chest: Bilateral lower lobe atelectasis and small pleural effusions. There is no evidence of pneumonia or acute pathology within the chest. 5. 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 - Nuclear renal: Overall mild delay in perfusion, uptake and excretion by both kidneys with cortical retention of tracer suggestive of an element of medical renal disease such as ATN. Dilated right renal pelvis with scintigraphic findings commensurate with outlet obstruction. Left kidney contributing to 57% and right kidney to 43% of the total renal function. - Nephrology consult (Dr. Cid), Appreciate recommendations - Urology Consult (Dr. Grigsby), Appreciate recommendations 6. HTN - Improved, will continue current management - Cardio was consulted, appreciate recommendations 7. Anemia of chronic disease - Hgb down to 8.2 this morning, No evidence of bleed - Iron panel reviewed - Continue Ferrous Sulfate 325 mg PO BID - Check FOBT 8. DM - Continue Insulin Aspart SQ ACHS [facility] - Increase Insulin Detemir to 16 units SQ HS [facility] - Diabetic diet 9. CAD s/p 2 stents - Continue Prasugrel 10 mg PO DAILY 10. PAF - ECG (05/25/18): Sinus tachycardia 138 bpm, Possible Left atrial enlargement, T Wave abnormality - Tele monitor showed sinus with HR 120. - Currently not on anticoagulation 11. Asthma - Continue Albuterol Sulfate 1 amp NEB Q4H PRN - Pulmonary consulted 12. DVT ppx - Heparin 5,000 unit SQ TID [facility] Visit type - Emergency Visit Emergency Visit: No - New Patient This patient is new to me today: No - Critical Care Critical Care patient: No
[2018-06-02] MEDS: clonazePAM 0.5 MG TABLET PO PRN (17:21)
[2018-06-02] MEDS: ROSUVASTATIN CA 10 MG TABLET (FP) PO SCH (21:21)
[2018-06-02] MEDS: EZETIMIBE 10 MG TABLET (FP) PO SCH (21:21)
[2018-06-03] MEDS: PROPYLTHIOURACIL 50 MG TABLET (UD) PO SCH ×3 (06:45→22:14)
[2018-06-03] MEDS: hydrALAZINE HCL 25 MG TABLET (FP) PO SCH ×3 (06:45→22:15)
[2018-06-03] MEDS: HEPARIN NA (PORCINE) 5,000 UNITS/ML 1ML VIAL SQ SCH ×3 (06:46→22:14)
[2018-06-03] MEDS: INSULIN SLIDING SCALE (NOVOLOG) 1 VIAL SQ SCH ×4 (06:46→22:29)
[2018-06-03] MEDS: ALBUTEROL SO4 0.083% IH SOL 2.5 MG/3 ML VIAL.NEB. NEB PRN (07:38)
[2018-06-03 08:29] LABS: CHLORIDE 101 mmol/L (98-107); POTASSIUM 4.5 mmol/L (3.5-5.1); SODIUM 140 mmol/L (136-145)
[2018-06-03 08:56] LABS: ANION GAP 14 (8-16); BLOOD UREA NITROGEN 62 mg/dL (7-18); CALCIUM 8.6 mg/dL (8.5-10.1); CO2 25 mmol/L (21-32); MAGNESIUM 1.9 mg/dL (1.8-2.4); PHOSPHOROUS 5.3 mg/dL (2.5-4.9)
[2018-06-03 09:02] LABS: GLUCOSE,RANDOM 85 mg/dL (74-106)
[2018-06-03] MEDS ORDERED: PT OWN MED DRAWER 7, Y5N ONE ×2 (09:40→21:58)
[2018-06-03 09:49] LABS: BASO % 0.7 % (0-2.0); EOS % 3.5 % (0-4.5); HEMATOCRIT 28.3 % (32.4-45.2); LYMPH % 33.1 % (8-40); MCH 24.3 pg (25.7-33.7); MCHC 31.8 g/dl (32.0-36.0); MEAN CELL VOLUME 76.4 fl (80-96); MEAN PLT VOLUME 8.9 fl (7.5-11.1); MONO % 10.8 % (3.8-10.2); NEUT % 51.9 % (42.8-82.8); PLATELET COUNT 238 K/MM3 (134-434); RBC 3.71 M/mm3 (3.60-5.2); RDW 14.4 % (11.6-15.6); WHITE BLOOD COUNT 6.6 K/mm3 (4.0-10.0)
[2018-06-03] MEDS ORDERED: metoPROLOL SUCCINATE 25 MG TAB.SR.24H (FP) PO SCH (10:00)
[2018-06-03] MEDS ORDERED: METOPROLOL TARTRATE 50 MG TABLET (FP) PO SCH (10:00)
[2018-06-03] MEDS ORDERED: TORSEMIDE 20 MG TABLET (FP) PO SCH (10:00)
[2018-06-03] MEDS: FERROUS SO4 325 MG TABLET (FP) PO SCH ×2 (10:23→22:15)
[2018-06-03] MEDS: MOMETASONE FUROATE 220 MCG/IH INHALER IH SCH ×3 (10:23→22:13)
[2018-06-03] MEDS: ASPIRIN 81 MG CHEWABLE TABLETS PO SCH (10:23)
[2018-06-03] MEDS: PRASUGREL HCL 10 MG TAB PO SCH (10:24)
[2018-06-03] MEDS: NITROGLYCERIN 0.2 MG/HOUR TD PATCH TD SCH (10:24)
--- NOTE | 2018-06-03 10:46 | PN ---
Progress Note (short form) - Note Progress Note: s: a little less sob. no cp dizzy. still feels heart racing when walking in halls o: Current Medications Generic Name Dose Route Start Last Admin Trade Name Freq PRN Reason Stop Dose Admin Acetaminophen 650 mg 05/27/18 17:00 05/27/18 17:36 Tylenol Oral Solution - PO 650 mg Q6H PRN Administration PAIN Albuterol Sulfate 1 amp 05/26/18 12:51 06/03/18 07:38 Ventolin 0.083% Nebulizer Soln - NEB 1 amp Q4H PRN Administration SHORT OF BREATH/WHEEZING Aspirin 81 mg 05/26/18 10:00 06/03/18 10:23 Asa - PO 81 mg DAILY [facility] Administration Clonazepam 0.5 mg 05/25/18 19:01 06/02/18 17:21 Klonopin - PO 0.5 mg Q6H PRN Administration ANXIETY Ezetimibe 10 mg 05/25/18 19:15 06/02/18 21:21 Zetia - PO 10 mg Q48H [facility] Administration Ferrous Sulfate 325 mg 05/25/18 22:00 06/03/18 10:23 Feosol - PO 325 mg BID [facility] Administration Heparin Sodium (Porcine) 5,000 unit 05/25/18 22:00 06/03/18 06:46 Heparin - SQ Not Given TID [facility] Hydralazine HCl 37.5 mg 05/28/18 14:00 06/03/18 06:45 Apresoline - PO 37.5 mg TID [facility] Administration Insulin Aspart 1 vial 05/26/18 07:00 06/03/18 06:46 Novolog Vial Sliding Scale - SQ Not Given ACHS [facility] Protocol Insulin Detemir 16 units 06/02/18 10:04 06/02/18 21:14 Levemir Vial SQ Not Given HS [facility] Metoprolol Succinate 50 mg 06/03/18 22:00 Toprol Xl - PO BID [facility] Mometasone Furoate 1 puff 05/30/18 10:15 06/02/18 21:28 Asmanex 220mcg - IH Not Given BID [facility] Nitroglycerin 0.2 mg 05/26/18 10:00 06/03/18 10:24 Nitro-Dur Patch - TD 0.2 mg DAILY [facility] Administration Prasugrel 10 mg 05/26/18 10:00 06/03/18 10:24 Effient - PO 10 mg DAILY [facility] Administration Propylthiouracil 100 mg 06/02/18 21:00 06/03/18 06:45 Ptu - PO 100 mg TID [facility] Administration Rosuvastatin Calcium 10 mg 05/25/18 22:00 06/02/18 21:21 Crestor - PO 10 mg HS [facility] Administration Torsemide 40 mg 06/03/18 10:00 Demadex - PO DAILY [facility] Vital Signs Period Temp Pulse Resp BP Sys/Shankar Pulse Ox Last 24 Hr 98.4 F-98.7 F 81-128 18-20 127-146/62-84 94-98 Constitutional: Yes: No Distress, Calm Eyes: No: Sclera Icterus HENT: No: Nasal Congestion Cardiovascular: Yes: Regular Rate and Rhythm, JVD (8-10 cm), S1, S2, Other (PMI non diplaced). No: Gallop, Murmur Respiratory: Yes: CTA Bilaterally. No: Accessory Muscle Use, Rales, Wheezes Gastrointestinal: Yes: Normal Bowel Sounds, Soft. No: Tenderness Extremities: No: Cold Edema: Yes Integumentary: No: Jaundice Neurological: Yes: Alert, Oriented (x3) Psychiatric: No: Agitated Labs: CBC, BMP 06/03/18 09:40 06/03/18 06:40 Assessment/Plan ECG--sinus tach 138 bpm, nonspecific ST-T changes CT chest: small bilat effusions with atx. o/w clear lungs. R sided hydronephrosis [facility] 2014: unchanged 70-80% distal RCA lesion. patent mLAD stent. 80-90% pLCX-- [facility] Echo 12/2016: TDS. nl LV size/EF. mild LVH. grade 2 d.d., hi E/e' = high LAP. nl RV. mild LAE. mild-mod MR, mod TR. mild pHTN (46 mmHg). tele:sr, ATach 120s at times acute on chronic diast CHF: -exacerbated recently by uncontrolled hyperthyroidism with tachycardia (and htn) -new dry wt due to hyperthyroid-related wt loss. has been 221-225 at home -BP and HR control as doing (as med intolerances allow) -torsemide held here (was taking 40mg qd at home recently) -06/01: s/p lasix 40 IV x 3 doses (refused 80mg IV dose)--last dose 05/29. started on torsemide 40 qd on 05/31, wt up 1 lb today and she has 8-10cm of JVD. her chf sx's (sob without wheeze/cough of asthma, and fluid in stomach) have returned. 06/02: after 80 iv lasix yesterday pt feels a little better and reports good uop. repeat same 80 iv lasix today, reassess tomorrow 06/03: has been resumed on torsemide 40 qd, will increase to 40 bid until thyroid status normalizes, in order to control her ongoing chf tendencies paroxysmal atrial tach, sinus tach, palpitations, thyrotoxicosis: -remote h/o intolerance to metoprolol, atenolol, ? 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 -low dose diltiazem at home ? caused GI upset (30 tid dose)--deferring re-trial -coreg CR changed to metopr succ, now at 50mg -in and out of PAT here, recently 120s HR. Will increase toprol from 75 qd to 50 bid, cont tele. -will plan to tolerate frequent PAT with HRs <120 until thyroid fxn normalizes, as this is not likely to cause refractory sx's of palpitations or refractory HF labile HTN: -prior reasonable control, lost of late due to hyperthyroidism which was initially untreated for several weeks -mult med intolerances in past -changed hydral 50 tid back to 37.5 tid (intolerable reflex tachycardia/ palpitations on 50mg dose in past) -coreg CR has been held, while metoprolol given for tachycardia control -bp controlled CAD, prior NSTEMI/PCI: -non-ischemic ECG here (ST-Ts likely rate-related). trop 0.3 x 2 intermediate range, flat trend--consistent with chronic elevation from pt with known chronically elevated filling pressures, ? contribution from tachycardia as well -cont home DAPT (aspirin/effient), statin with zetia, bb OBI on CKD: -baseline creat runs 2.5-2.8 -initially creat 2.5 on DOA, has been stable 2.9-3.1 at present -R sided hydronephrosis on CT scan--? if contributing to her renal dysfunction - following, considering intervention mod-severe asthma, frequent exacerbations: -have downtitrated b-isrrael (previously coreg CR) to minimal tolerated dose ( requires for BP and tachycardia control)--was on coreg CR 10mg -bb changed recently to control tachycardia in setting of thyrotoxicosis -airways tx per pulmonary -currently stable HPL: -intolerant of mult statins -LDL at baseline is >200 -well controlled on home rosuvastatin plus zetia regimen with LDL near 100-120 chronic anemia: -baseline hgb runs 9s-10s. counts stable here.
[2018-06-03] MEDS: TORSEMIDE 20 MG TABLET (FP) PO SCH ×2 (10:53→16:14)
--- NOTE | 2018-06-03 12:35 | PN ---
Progress Note, Physician History of Present Illness: PULMONARY ALERT,FEELING BETTER,LESS COUGH,-SOB,REMAINS TACHYCARDIC - Current Medication List Current Medications: Active Medications Acetaminophen (Tylenol Oral Solution -) 650 mg PO Q6H PRN PRN Reason: PAIN Last Admin: 05/27/18 17:36 Dose: 650 mg Albuterol Sulfate (Ventolin 0.083% Nebulizer Soln -) 1 amp NEB Q4H PRN PRN Reason: SHORT OF BREATH/WHEEZING Last Admin: 06/03/18 07:38 Dose: 1 amp Aspirin (Asa -) 81 mg PO DAILY [facility] Last Admin: 06/03/18 10:23 Dose: 81 mg Clonazepam (Klonopin -) 0.5 mg PO Q6H PRN PRN Reason: ANXIETY Last Admin: 06/02/18 17:21 Dose: 0.5 mg Ezetimibe (Zetia -) 10 mg PO Q48H [facility] Last Admin: 06/02/18 21:21 Dose: 10 mg Ferrous Sulfate (Feosol -) 325 mg PO BID [facility] Last Admin: 06/03/18 10:23 Dose: 325 mg Heparin Sodium (Porcine) (Heparin -) 5,000 unit SQ TID [facility] Last Admin: 06/03/18 06:46 Dose: Not Given Hydralazine HCl (Apresoline -) 37.5 mg PO TID [facility] Last Admin: 06/03/18 06:45 Dose: 37.5 mg Insulin Aspart (Novolog Vial Sliding Scale -) 1 vial SQ [facility]; Protocol Last Admin: 06/03/18 11:30 Dose: 4 units Insulin Detemir (Levemir Vial) 16 units SQ HS [facility] Last Admin: 06/02/18 21:14 Dose: Not Given Metoprolol Succinate (Toprol Xl -) 50 mg PO BID [facility] Mometasone Furoate (Asmanex 220mcg -) 1 puff IH BID [facility] Last Admin: 06/03/18 10:53 Dose: Not Given Nitroglycerin (Nitro-Dur Patch -) 0.2 mg TD DAILY [facility] Last Admin: 06/03/18 10:24 Dose: 0.2 mg Prasugrel (Effient -) 10 mg PO DAILY [facility] Last Admin: 06/03/18 10:24 Dose: 10 mg Propylthiouracil (Ptu -) 100 mg PO TID [facility] Last Admin: 06/03/18 06:45 Dose: 100 mg Rosuvastatin Calcium (Crestor -) 10 mg PO HS [facility] Last Admin: 06/02/18 21:21 Dose: 10 mg Torsemide (Demadex -) 40 mg PO BIDLASIX [facility] Last Admin: 06/03/18 10:53 Dose: 40 mg - Objective Vital Signs: Vital Signs Temperature 98.7 F 06/03/18 02:00 Pulse Rate 128 H 06/03/18 10:13 Respiratory Rate 18 06/03/18 08:41 Blood Pressure 128/74 06/03/18 08:41 O2 Sat by Pulse Oximetry (%) 97 06/03/18 10:13 Constitutional: Yes: Well Nourished, Calm Eyes: Yes: WNL HENT: Yes: WNL Neck: Yes: WNL Cardiovascular: Yes: Tachycardia, S1, S2 Respiratory: Yes: Diminished Gastrointestinal: Yes: Normal Bowel Sounds, Soft Extremities: Yes: WNL Edema: Yes Labs: CBC, BMP 06/03/18 09:40 06/03/18 06:40 Problem List - Problems (1) Acute on chronic heart failure Code(s): I50.9 - HEART FAILURE, UNSPECIFIED Qualifiers: Heart failure type: diastolic Qualified Code(s): I50.33 - Acute on chronic diastolic (congestive) heart failure (2) CAD (coronary artery disease) Code(s): I25.10 - ATHSCL HEART DISEASE OF [place] CORONARY ARTERY W/O ANG PCTRS Qualifiers: Coronary Disease-Associated Artery/Lesion type: [place] artery [place] vs. transplanted heart: [place] heart Associated angina: without angina Qualified Code(s): I25.10 - Atherosclerotic heart disease of [place] coronary artery without angina pectoris (3) CKD (chronic kidney disease) Code(s): N18.9 - CHRONIC KIDNEY DISEASE, UNSPECIFIED (4) KATINA (obstructive sleep apnea) Code(s): G47.33 - OBSTRUCTIVE SLEEP APNEA (ADULT) (PEDIATRIC) (5) ASHD (arteriosclerotic heart disease) Code(s): I25.10 - ATHSCL HEART DISEASE OF [place] CORONARY ARTERY W/O ANG PCTRS (6) CHF (congestive heart failure) Code(s): I50.9 - HEART FAILURE, UNSPECIFIED Qualifiers: Heart failure type: unspecified Heart failure chronicity: acute on chronic Qualified Code(s): I50.9 - Heart failure, unspecified (7) HLD (hyperlipidemia) Code(s): E78.5 - HYPERLIPIDEMIA, UNSPECIFIED Qualifiers: Hyperlipidemia type: pure hypercholesterolemia Qualified Code(s): E78.00 - Pure hypercholesterolemia, unspecified; E78.0 - Pure hypercholesterolemia (8) HTN (hypertension) Code(s): I10 - ESSENTIAL (PRIMARY) HYPERTENSION Qualifiers: Hypertension type: essential hypertension Qualified Code(s): I10 - Essential (primary) hypertension (9) IDDM (insulin dependent diabetes mellitus) Code(s): E11.9 - TYPE 2 DIABETES MELLITUS WITHOUT COMPLICATIONS; Z79.4 - PENITENTIARY (CURRENT) USE OF INSULIN (10) Sleep apnea, obstructive Code(s): G47.33 - OBSTRUCTIVE SLEEP APNEA (ADULT) (PEDIATRIC) (11) Hypertensive urgency Code(s): I16.0 - HYPERTENSIVE URGENCY (12) Hyperthyroidism Code(s): E05.90 - THYROTOXICOSIS, UNSP WITHOUT THYROTOXIC CRISIS OR STORM (13) Pneumonia Code(s): J18.9 - PNEUMONIA, UNSPECIFIED ORGANISM (14) Thyrotoxicosis Code(s): E05.90 - THYROTOXICOSIS, UNSP WITHOUT THYROTOXIC CRISIS OR STORM Assessment/Plan IMP DYSPNEA IMPROVING CHF IMPROVING EFFUSION/ATELECTASIS S/P HYPERTENSIVE URGENCY TACHYCARDIA HYPERTHYROIDISM ACUTE ON CKD PULMONARY HTN DM OSAS ON CPAP [id number] ASHD S/P NSTEMI,S/P STENTS ASTHMA CHRONIC VENOUS INSUFFICIENCY R HYDRONEPHROSIS PLAN O2 DIURETICS ASMANEX BID INHALED BRONCHODILATORS TITRATE BP MEDS RATE CONTROL BETA-BLOCKERS 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,RENAL FUNCTION DAILY WTS DR BENDER Problem List - Problems (1) Acute on chronic heart failure Code(s): I50.9 - HEART FAILURE, UNSPECIFIED (2) CAD (coronary artery disease) Code(s): I25.10 - ATHSCL HEART DISEASE OF [place] CORONARY ARTERY W/O ANG PCTRS (3) CKD (chronic kidney disease) Code(s): N18.9 - CHRONIC KIDNEY DISEASE, UNSPECIFIED (4) KATINA (obstructive sleep apnea) Code(s): G47.33 - OBSTRUCTIVE SLEEP APNEA (ADULT) (PEDIATRIC) (5) ASHD (arteriosclerotic heart disease) Code(s): I25.10 - ATHSCL HEART DISEASE OF [place] CORONARY ARTERY W/O ANG PCTRS (6) CHF (congestive heart failure) Code(s): I50.9 - HEART FAILURE, UNSPECIFIED Qualifiers: Heart failure type: unspecified Heart failure chronicity: acute on chronic Qualified Code(s): I50.9 - Heart failure, unspecified (7) HLD (hyperlipidemia) Code(s): E78.5 - HYPERLIPIDEMIA, UNSPECIFIED (8) HTN (hypertension) Code(s): I10 - ESSENTIAL (PRIMARY) HYPERTENSION (9) IDDM (insulin dependent diabetes mellitus) Code(s): E11.9 - TYPE 2 DIABETES MELLITUS WITHOUT COMPLICATIONS; Z79.4 - [employer] (CURRENT) USE OF INSULIN (10) Sleep apnea, obstructive Code(s): G47.33 - OBSTRUCTIVE SLEEP APNEA (ADULT) (PEDIATRIC) (11) Hypertensive urgency Code(s): I16.0 - HYPERTENSIVE URGENCY (12) Hyperthyroidism Code(s): E05.90 - THYROTOXICOSIS, UNSP WITHOUT THYROTOXIC CRISIS OR STORM (13) Pneumonia Code(s): J18.9 - PNEUMONIA, UNSPECIFIED ORGANISM (14) Thyrotoxicosis Code(s): E05.90 - THYROTOXICOSIS, UNSP WITHOUT THYROTOXIC CRISIS OR STORM
--- NOTE | 2018-06-03 14:18 | PN ---
Progress Note (short form) - Note Progress Note: Renal follow up for CKD Pt seen and examined at the bedside awake and alert no acute complaints cough is improved making urine no chest pain, abd pain HR still elevated from time to time Vital Signs Temperature 98.7 F 06/03/18 02:00 Pulse Rate 128 H 06/03/18 10:13 Respiratory Rate 18 06/03/18 08:41 Blood Pressure 128/74 06/03/18 08:41 O2 Sat by Pulse Oximetry (%) 97 06/03/18 10:13 Intake & Output 05/31/18 06/01/18 06/02/18 06/03/18 23:59 23:59 23:59 23:59 Intake Total 1110 1140 920 Output Total 500 800 Balance 1110 640 120 Weight 96.842 kg 96.615 kg 97.182 kg 96.388 kg NAD + edema in LE CBC, BMP 06/03/18 09:40 06/03/18 06:40 Current Medications Acetaminophen (Tylenol Oral Solution -) 650 mg PO Q6H PRN PRN Reason: PAIN Last Admin: 05/27/18 17:36 Dose: 650 mg Albuterol Sulfate (Ventolin 0.083% Nebulizer Soln -) 1 amp NEB Q4H PRN PRN Reason: SHORT OF BREATH/WHEEZING Last Admin: 06/03/18 07:38 Dose: 1 amp Aspirin (Asa -) 81 mg PO DAILY [facility] Last Admin: 06/03/18 10:23 Dose: 81 mg Clonazepam (Klonopin -) 0.5 mg PO Q6H PRN PRN Reason: ANXIETY Last Admin: 06/02/18 17:21 Dose: 0.5 mg Ezetimibe (Zetia -) 10 mg PO Q48H [facility] Last Admin: 06/02/18 21:21 Dose: 10 mg Ferrous Sulfate (Feosol -) 325 mg PO BID [facility] Last Admin: 06/03/18 10:23 Dose: 325 mg Heparin Sodium (Porcine) (Heparin -) 5,000 unit SQ TID [facility] Last Admin: 06/03/18 06:46 Dose: Not Given Hydralazine HCl (Apresoline -) 37.5 mg PO TID [facility] Last Admin: 06/03/18 06:45 Dose: 37.5 mg Insulin Aspart (Novolog Vial Sliding Scale -) 1 vial SQ ACHS [facility]; Protocol Last Admin: 06/03/18 11:30 Dose: 4 units Insulin Detemir (Levemir Vial) 16 units SQ HS [facility] Last Admin: 06/02/18 21:14 Dose: Not Given Metoprolol Succinate (Toprol Xl -) 50 mg PO BID [facility] Mometasone Furoate (Asmanex 220mcg -) 1 puff IH BID [facility] Last Admin: 06/03/18 10:53 Dose: Not Given Nitroglycerin (Nitro-Dur Patch -) 0.2 mg TD DAILY [facility] Last Admin: 06/03/18 10:24 Dose: 0.2 mg Prasugrel (Effient -) 10 mg PO DAILY [facility] Last Admin: 06/03/18 10:24 Dose: 10 mg Propylthiouracil (Ptu -) 100 mg PO TID [facility] Last Admin: 06/03/18 06:45 Dose: 100 mg Rosuvastatin Calcium (Crestor -) 10 mg PO HS [facility] Last Admin: 06/02/18 21:21 Dose: 10 mg Torsemide (Demadex -) 40 mg PO BIDLASIX [facility] Last Admin: 06/03/18 10:53 Dose: 40 mg 63 year old woman with PMhx of CKD stage 4 (baseline Cr 2.5-3), Recently diagnosed hyperthyroidism, Hypertension, D-HF, DM type 2, HLD, CAD, CABG, Asthma , PAFib who presented with tachycardia and found to have acute thyrotoxicosis and Cr of 3 with right hydronephrosis. #CKD Stage 4 w/o proteinuira #Right hydronephrosis #Thyrotoxicosis #Hypertension #Anemia Renal function stable and pt responsive to IV diuresis agree with transition to PO torsemide Urology follow up as outpatient for eval/mangement of hydronephrosis continue PTU Cardiology follow up Will follow Goyo Cid DO
[2018-06-03] MEDS ORDERED: INSULIN (LEVEMIR) 100 UNITS/ML UNITS SQ SCH (15:39)
--- NOTE | 2018-06-03 15:39 | PN ---
Teaching Attending Note Name of Resident: Tayler Buchanan ATTENDING PHYSICIAN STATEMENT I saw and evaluated the patient. I reviewed the resident's note and discussed the case with the resident. I agree with the resident's findings and plan as documented with exceptions below. SUBJECTIVE: Patient seen and examined. feels better, urinating, no current dizziness,chest pain or palpitations. Walking with respiratory therapist. OBJECTIVE: Vital Signs Period Temp Pulse Resp BP Sys/Shankar Pulse Ox Last 24 Hr 98.4 F-98.7 F 81-128 18-20 127-146/62-84 94-98 Intake & Output 05/31/18 06/01/18 06/02/18 06/03/18 23:59 23:59 23:59 23:59 Intake Total 1110 1140 920 Output Total 500 800 Balance 1110 640 120 Weight 213 lb 8 oz 213 lb 214 lb 4 oz 212 lb 8 oz General: ambulating in hallway with respiratory therapist Chest: no rales or wheezing Abdomen:soft, NT Extremities: minimal improvement bilateral pedal edema Home Medications Medication Instructions Recorded Aspirin [ASA -] 81 mg PO DAILY #1 tab 03/06/13 Ferrous Sulfate [Feosol] 325 mg PO BID #0 ud 05/08/15 Prasugrel Hydrochloride [Effient -] 10 mg PO DAILY #0 tab 05/08/15 Albuterol 0.083% Nebulizer Biibana 1 neb NEB QID 09/14/16 [Ventolin 0.083% Nebulizer Soln -] Insulin Glargine,Hum.rec.anlog 30 units SQ HS 04/29/17 [Lantus (10mL VIAL) -] Insulin Lispro [Humalog] 100 unit SQ PRN 04/29/17 Budesonide/Formeterol Fumarate 2 inh PO BID 06/13/17 [SYMBICORT 160/4.5mcg -] clonazePAM [KlonoPIN] 0.5 mg PO QID PRN 06/13/17 Carvedilol Phosphate [Coreg Cr -] 10 mg PO DAILY #30 cap 06/23/17 Hydralazine HCl 50 mg PO TID #90 tablet 06/23/17 Albuterol 0.083% Nebulizer Bibiana 1 amp NEB Q4H #1 amp 12/20/17 [Ventolin 0.083% Nebulizer Soln -] Ezetimibe [Zetia -] 10 mg PO Q48H 30 Days #30 tablet 12/20/17 Nitroglycerin Patch [Nitro-Dur 0.2 mg TD DAILY #30 patch.td24 12/20/17 Patch -] Torsemide [Demadex -] 20 mg PO DAILY #60 tablet 12/20/17 Rosuvastatin [Crestor -] 10 mg PO HS #30 tablet 04/15/18 Brimonidine Tartrate [Alphagan P 3 drop OU Q8H 05/27/18 0.1% -] Latanoprost 0.005% Eye Drops 1 drop OU DAILY 05/27/18 [Xalatan 0.005% Eye Drops -] Methimazole [Tapazole -] 5 mg PO Q8H 05/27/18 Pantoprazole Sodium [Protonix -] 40 mg PO DAILY 05/27/18 Spironolactone 12.5 mg PO DAILY 05/27/18 Active Medications Acetaminophen (Tylenol Oral Solution -) 650 mg PO Q6H PRN PRN Reason: PAIN Last Admin: 05/27/18 17:36 Dose: 650 mg Albuterol Sulfate (Ventolin 0.083% Nebulizer Soln -) 1 amp NEB Q4H PRN PRN Reason: SHORT OF BREATH/WHEEZING Last Admin: 06/03/18 07:38 Dose: 1 amp Aspirin (Asa -) 81 mg PO DAILY [facility] Last Admin: 06/03/18 10:23 Dose: 81 mg Clonazepam (Klonopin -) 0.5 mg PO Q6H PRN PRN Reason: ANXIETY Last Admin: 06/02/18 17:21 Dose: 0.5 mg Ezetimibe (Zetia -) 10 mg PO Q48H [facility] Last Admin: 06/02/18 21:21 Dose: 10 mg Ferrous Sulfate (Feosol -) 325 mg PO BID [facility] Last Admin: 06/03/18 10:23 Dose: 325 mg Heparin Sodium (Porcine) (Heparin -) 5,000 unit SQ TID [facility] Last Admin: 06/03/18 06:46 Dose: Not Given Hydralazine HCl (Apresoline -) 37.5 mg PO TID [facility] Last Admin: 06/03/18 06:45 Dose: 37.5 mg Insulin Aspart (Novolog Vial Sliding Scale -) 1 vial SQ ACHS [facility]; Protocol Last Admin: 06/03/18 11:30 Dose: 4 units Insulin Detemir (Levemir Vial) 16 units SQ [facility] Last Admin: 06/02/18 21:14 Dose: Not Given Metoprolol Succinate (Toprol Xl -) 50 mg PO BID [facility] Mometasone Furoate (Asmanex 220mcg -) 1 puff IH BID [facility] Last Admin: 06/03/18 10:53 Dose: Not Given Nitroglycerin (Nitro-Dur Patch -) 0.2 mg TD DAILY [facility] Last Admin: 06/03/18 10:24 Dose: 0.2 mg Prasugrel (Effient -) 10 mg PO DAILY [facility] Last Admin: 06/03/18 10:24 Dose: 10 mg Propylthiouracil (Ptu -) 100 mg PO TID [facility] Last Admin: 06/03/18 06:45 Dose: 100 mg Rosuvastatin Calcium (Crestor -) 10 mg PO HS [facility] Last Admin: 06/02/18 21:21 Dose: 10 mg Torsemide (Demadex -) 40 mg PO BIDLASIX [facility] Last Admin: 06/03/18 10:53 Dose: 40 mg Laboratory Results - last 24 hr 06/02/18 06/02/18 06/02/18 16:33 20:53 22:21 WBC RBC Hgb Hct MCV MCH MCHC RDW Plt Count MPV Absolute Neuts (auto) Neutrophils % Lymphocytes % Monocytes % Eosinophils % Basophils % Nucleated RBC % Sodium Potassium Chloride Carbon Dioxide Anion Gap BUN Creatinine Creat Clearance w eGFR POC Glucometer 204 156 198 Random Glucose Calcium Phosphorus Magnesium TSH 06/03/18 06/03/18 06/03/18 06:15 06:40 09:40 WBC 6.6 RBC 3.71 Hgb 9.0 L Hct 28.3 L MCV 76.4 L MCH 24.3 L MCHC 31.8 L RDW 14.4 Plt Count 238 MPV 8.9 Absolute Neuts (auto) 3.4 Neutrophils % 51.9 Lymphocytes % 33.1 Monocytes % 10.8 H Eosinophils % 3.5 Basophils % 0.7 Nucleated RBC % 0 Sodium 140 Potassium 4.5 Chloride 101 Carbon Dioxide 25 Anion Gap 14 BUN 62 H Creatinine 3.0 H Creat Clearance w eGFR 15.76 POC Glucometer 130 Random Glucose 85 Calcium 8.6 Phosphorus 5.3 H Magnesium 1.9 TSH < 0.01 L 06/03/18 11:27 WBC RBC Hgb Hct MCV MCH MCHC RDW Plt Count MPV Absolute Neuts (auto) Neutrophils % Lymphocytes % Monocytes % Eosinophils % Basophils % Nucleated RBC % Sodium Potassium Chloride Carbon Dioxide Anion Gap BUN Creatinine Creat Clearance w eGFR POC Glucometer 205 Random Glucose Calcium Phosphorus Magnesium TSH ASSESSMENT AND PLAN: 62-year-old woman with a history of chronic diastolic heart failure, type 2 DM, HTN, hyperlipidemia, CAD, CABG, asthma, KATINA, anxiety, pulm HTN, PAF who presented to the ER with palpitations and found to be acute thyrotoxicosis -Acute thyrotoxicosis -Sinus tachycardia, from above -LLL atelectasis, vs infiltrates, Afebrile, normal WBC and CT chest neg for infiltrate/consolidation -Asthma, with bronchospam, ?Beta isrrael induced -OBI on CKD stage III (baseline cr around 2.6-2.8) -Acute on chronic diastolic HF exacerbation -Right hydronephrosis with outlet obstruction -Anemia, Acute on Chronic -HTN -CAD s/p 2 PCI -PAF, in sinus currently Plan: Endocrine input noted, PTU decreased to 100 mg TID, Free T4/TSH noted. Radioactive iodine as outpatient. Cardiology input noted, increase toprol XL to 50 mg BID, still with intermittent tachycardia. Add torsemide 40 mg PO BID, likely will need higher dose till euthyroid if renal function can tolerate. Nephrology input noted. Renal scan noted. Urology input noted, follow up recs. h/h stable, iron panel noted. Increase levemir to 20 units hs, ISS, diabetic diet. Prasugrel Continue hydralazine, dose decreased inhouse. DVTPPX heparin Dispo pending clinical improvement, in 2-3 days if volume status and symptoms continue to improve. Plan discussed with patient in detail, all questions answered.
--- NOTE | 2018-06-03 18:57 | PN ---
Physical Exam: SUBJECTIVE: Patient seen and examined this morning at bedside. Feeling much better, denies any new complaints. No overnight events as per nursing. Denies fevers, chills, dizziness, chest pain, SOB. OBJECTIVE: Vital Signs Period Temp Pulse Resp BP Sys/Shankar Pulse Ox Last 24 Hr 98.2 F-98.7 F 81-128 18-20 127-155/62-114 94-98 Vital Signs Temperature 98.2 F 06/03/18 14:15 Pulse Rate 117 H 06/03/18 17:46 Respiratory Rate 18 06/03/18 14:15 Blood Pressure 152/88 06/03/18 17:46 O2 Sat by Pulse Oximetry (%) 97 06/03/18 10:13 GENERAL: The patient is awake, alert, and fully oriented, in no acute distress. LUNGS: Breath sounds equal, CTA B/L, no wheezes HEART: Regular rate and rhythm, S1, S2 without murmur, rub or gallop ABDOMEN: Obese, Soft, nontender, distended, normoactive bowel sounds EXTREMITIES: 2+ lower extremity nonpitting edema Laboratory Results - last 24 hr 06/02/18 06/02/18 06/03/18 20:53 22:21 06:15 WBC RBC Hgb Hct MCV MCH MCHC RDW Plt Count MPV Absolute Neuts (auto) Neutrophils % Lymphocytes % Monocytes % Eosinophils % Basophils % Nucleated RBC % Sodium Potassium Chloride Carbon Dioxide Anion Gap BUN Creatinine Creat Clearance w eGFR POC Glucometer 156 198 130 Random Glucose Calcium Phosphorus Magnesium TSH 06/03/18 06/03/18 06/03/18 06:40 09:40 11:27 WBC 6.6 RBC 3.71 Hgb 9.0 L Hct 28.3 L MCV 76.4 L MCH 24.3 L MCHC 31.8 L RDW 14.4 Plt Count 238 MPV 8.9 Absolute Neuts (auto) 3.4 Neutrophils % 51.9 Lymphocytes % 33.1 Monocytes % 10.8 H Eosinophils % 3.5 Basophils % 0.7 Nucleated RBC % 0 Sodium 140 Potassium 4.5 Chloride 101 Carbon Dioxide 25 Anion Gap 14 BUN 62 H Creatinine 3.0 H Creat Clearance w eGFR 15.76 POC Glucometer 205 Random Glucose 85 Calcium 8.6 Phosphorus 5.3 H Magnesium 1.9 TSH < 0.01 L 06/03/18 16:11 WBC RBC Hgb Hct MCV MCH MCHC RDW Plt Count MPV Absolute Neuts (auto) Neutrophils % Lymphocytes % Monocytes % Eosinophils % Basophils % Nucleated RBC % Sodium Potassium Chloride Carbon Dioxide Anion Gap BUN Creatinine Creat Clearance w eGFR POC Glucometer 170 Random Glucose Calcium Phosphorus Magnesium TSH Active Medications Acetaminophen (Tylenol Oral Solution -) 650 mg PO Q6H PRN PRN Reason: PAIN Last Admin: 05/27/18 17:36 Dose: 650 mg Albuterol Sulfate (Ventolin 0.083% Nebulizer Soln -) 1 amp NEB Q4H PRN PRN Reason: SHORT OF BREATH/WHEEZING Last Admin: 06/03/18 07:38 Dose: 1 amp Aspirin (Asa -) 81 mg PO DAILY [facility] Last Admin: 06/03/18 10:23 Dose: 81 mg Clonazepam (Klonopin -) 0.5 mg PO Q6H PRN PRN Reason: ANXIETY Last Admin: 06/02/18 17:21 Dose: 0.5 mg Ezetimibe (Zetia -) 10 mg PO Q48H [facility] Last Admin: 06/02/18 21:21 Dose: 10 mg Ferrous Sulfate (Feosol -) 325 mg PO BID [facility] Last Admin: 06/03/18 10:23 Dose: 325 mg Heparin Sodium (Porcine) (Heparin -) 5,000 unit SQ TID [facility] Last Admin: 06/03/18 16:14 Dose: Not Given Hydralazine HCl (Apresoline -) 37.5 mg PO TID [facility] Last Admin: 06/03/18 16:13 Dose: 37.5 mg Insulin Aspart (Novolog Vial Sliding Scale -) 1 vial SQ [facility]; Protocol Last Admin: 06/03/18 16:14 Dose: 2 units Insulin Detemir (Levemir Vial) 20 units SQ [facility] Metoprolol Succinate (Toprol Xl -) 50 mg PO BID [facility] Mometasone Furoate (Asmanex 220mcg -) 1 puff IH BID [facility] Last Admin: 06/03/18 10:53 Dose: Not Given Nitroglycerin (Nitro-Dur Patch -) 0.2 mg TD DAILY [facility] Last Admin: 06/03/18 10:24 Dose: 0.2 mg Prasugrel (Effient -) 10 mg PO DAILY [facility] Last Admin: 06/03/18 10:24 Dose: 10 mg Propylthiouracil (Ptu -) 100 mg PO TID [facility] Last Admin: 06/03/18 16:14 Dose: 100 mg Rosuvastatin Calcium (Crestor -) 10 mg PO HS [facility] Last Admin: 06/02/18 21:21 Dose: 10 mg Torsemide (Demadex -) 40 mg PO BIDLASIX [facility] Last Admin: 06/03/18 16:14 Dose: 40 mg ASSESSMENT/PLAN: 63 y/o F with a PMHx of chronic diastolic heart failure, T2DM, HTN, hyperlipidemia, CAD, CABG, asthma, KATINA, anxiety, pulm HTN, PAF who presented to the ER with palpitations and found to be in acute thyrotoxicosis 1. Acute thyrotoxicosis - Free T4: 1.0 - TSH: < 0.01 - PTU decreased to 100 mg PO TID, continue - Dr. Gonsales consulted, appreciate recommendations - Will plan for radioactive iodine as outpatient 2. Sinus tachycardia - Due to acute thyrotoxicosis remains irregular and tachycardic - Cardio consulted, appreciate recommendations - Change Metoprolol Succinate to 50 mg PO BID - Increase Torsemide 40 mg PO DAILY to BID - Will monitor respiratory status as patient has hx of Asthma 3. Acute on chronic diastolic CHF - Remains volume overloaded - Increase Torsemide 40 mg PO DAILY to BID - Strict I&O, daily weights - Will monitor BMP, Mag and Phos 4. LLL atelectasis vs infiltrate - ABx held as patient remains afebrile and without white count - CT chest: Bilateral lower lobe atelectasis and small pleural effusions. There is no evidence of pneumonia or acute pathology within the chest. 5. 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 - Nuclear renal: Overall mild delay in perfusion, uptake and excretion by both kidneys with cortical retention of tracer suggestive of an element of medical renal disease such as ATN. Dilated right renal pelvis with scintigraphic findings commensurate with outlet obstruction. Left kidney contributing to 57% and right kidney to 43% of the total renal function. - Nephrology consult (Dr. Cid), Appreciate recommendations - Urology Consult (Dr. Grigsby), Appreciate recommendations 6. HTN - Improved, will continue current management - Cardio was consulted, appreciate recommendations 7. Anemia of chronic disease - Hgb improved to 9.0 this morning, No evidence of bleed - Iron panel reviewed - Continue Ferrous Sulfate 325 mg PO BID 8. DM - Continue Insulin Aspart SQ ACHS [facility] - Increase Insulin Detemir to 20 units SQ HS [facility] - Diabetic diet 9. CAD s/p 2 stents - Continue Prasugrel 10 mg PO DAILY 10. PAF - ECG (05/25/18): Sinus tachycardia 138 bpm, Possible Left atrial enlargement, T Wave abnormality - Tele monitor showed sinus with HR 120. - Currently not on anticoagulation 11. Asthma - Continue Albuterol Sulfate 1 amp NEB Q4H PRN - Pulmonary consulted 12. DVT ppx - Heparin 5,000 unit SQ TID [facility] Visit type - Emergency Visit Emergency Visit: No - New Patient This patient is new to me today: No - Critical Care Critical Care patient: No
[2018-06-03] MEDS: ROSUVASTATIN CA 10 MG TABLET (FP) PO SCH (22:15)
--- NOTE | 2018-06-04 00:58 | PN ---
Progress Note, Physician Chief Complaint: feeling better, less jittery History of Present Illness: hyperthyroidism,improved on ptu less anxious and restless,denies palpitation - Current Medication List Current Medications: Active Medications Acetaminophen (Tylenol Oral Solution -) 650 mg PO Q6H PRN PRN Reason: PAIN Last Admin: 05/27/18 17:36 Dose: 650 mg Albuterol Sulfate (Ventolin 0.083% Nebulizer Soln -) 1 amp NEB Q4H PRN PRN Reason: SHORT OF BREATH/WHEEZING Last Admin: 06/03/18 07:38 Dose: 1 amp Aspirin (Asa -) 81 mg PO DAILY [facility] Last Admin: 06/03/18 10:23 Dose: 81 mg Clonazepam (Klonopin -) 0.5 mg PO Q6H PRN PRN Reason: ANXIETY Last Admin: 06/02/18 17:21 Dose: 0.5 mg Ezetimibe (Zetia -) 10 mg PO Q48H [facility] Last Admin: 06/02/18 21:21 Dose: 10 mg Ferrous Sulfate (Feosol -) 325 mg PO BID [facility] Last Admin: 06/03/18 22:15 Dose: 325 mg Heparin Sodium (Porcine) (Heparin -) 5,000 unit SQ TID [facility] Last Admin: 06/03/18 22:14 Dose: Not Given Hydralazine HCl (Apresoline -) 37.5 mg PO TID [facility] Last Admin: 06/03/18 22:15 Dose: 37.5 mg Insulin Aspart (Novolog Vial Sliding Scale -) 1 vial SQ [facility]; Protocol Last Admin: 06/03/18 22:29 Dose: Not Given Insulin Detemir (Levemir Vial) 20 units SQ HS [facility] Last Admin: 06/03/18 22:29 Dose: Not Given Metoprolol Succinate (Toprol Xl -) 50 mg PO BID [facility] Last Admin: 06/03/18 22:13 Dose: 50 mg Mometasone Furoate (Asmanex 220mcg -) 1 puff IH BID [facility] Last Admin: 06/03/18 22:13 Dose: Not Given Nitroglycerin (Nitro-Dur Patch -) 0.2 mg TD DAILY [facility] Last Admin: 06/03/18 10:24 Dose: 0.2 mg Prasugrel (Effient -) 10 mg PO DAILY [facility] Last Admin: 06/03/18 10:24 Dose: 10 mg Propylthiouracil (Ptu -) 100 mg PO TID [facility] Last Admin: 06/03/18 22:14 Dose: 100 mg Rosuvastatin Calcium (Crestor -) 10 mg PO HS [facility] Last Admin: 06/03/18 22:15 Dose: 10 mg Torsemide (Demadex -) 40 mg PO BIDLASIX [facility] Last Admin: 06/03/18 16:14 Dose: 40 mg - Objective Vital Signs: Vital Signs Temperature 98.8 F 06/03/18 21:12 Pulse Rate 113 H 06/03/18 21:12 Respiratory Rate 20 06/03/18 21:12 Blood Pressure 126/80 06/03/18 21:12 O2 Sat by Pulse Oximetry (%) 98 06/03/18 19:59 Constitutional: Yes: Calm Eyes: Yes: EOM Intact HENT: Yes: Normocephalic Neck: Yes: Trachea Midline Cardiovascular: Yes: Regular Rate and Rhythm Respiratory: Yes: CTA Bilaterally Gastrointestinal: Yes: Normal Bowel Sounds ...Rectal Exam: Yes: Deferred Genitourinary: Yes: WNL Extremities: Yes: WNL Neurological: Yes: Alert, Oriented Labs: CBC, BMP 06/03/18 09:40 06/03/18 06:40 Problem List - Problems (1) Hyperthyroidism Code(s): E05.90 - THYROTOXICOSIS, UNSP WITHOUT THYROTOXIC CRISIS OR STORM (2) Pneumonia Code(s): J18.9 - PNEUMONIA, UNSPECIFIED ORGANISM (3) Acute exacerbation of asthma with allergic rhinitis Code(s): J45.901 - UNSPECIFIED ASTHMA WITH (ACUTE) EXACERBATION (4) Acute on chronic heart failure Code(s): I50.9 - HEART FAILURE, UNSPECIFIED Qualifiers: Heart failure type: diastolic Qualified Code(s): I50.33 - Acute on chronic diastolic (congestive) heart failure Assessment/Plan Current Active Problems Hydronephrosis (Acute) Hypertensive urgency (Acute) Hyperthyroidism (Acute) Pneumonia (Acute) Thyrotoxicosis (Acute) Abnormal Lab Results 06/03/18 06/03/18 06:40 09:40 Hgb 9.0 L Hct 28.3 L MCV 76.4 L MCH 24.3 L MCHC 31.8 L Monocytes % 10.8 H BUN 62 H Creatinine 3.0 H Phosphorus 5.3 H TSH < 0.01 L Laboratory Tests 06/02/18 05:30 Free T4 1.00 plan continue ptu 100mg tid will follow as outpatient for tft levels and possible i131 dose ablation
[2018-06-04] MEDS: hydrALAZINE HCL 25 MG TABLET (FP) PO SCH ×2 (06:28→13:18)
[2018-06-04] MEDS: TORSEMIDE 20 MG TABLET (FP) PO SCH (06:29)
[2018-06-04] MEDS: HEPARIN NA (PORCINE) 5,000 UNITS/ML 1ML VIAL SQ SCH ×2 (06:32→13:19)
[2018-06-04] MEDS: PROPYLTHIOURACIL 50 MG TABLET (UD) PO SCH ×2 (06:33→13:19)
[2018-06-04] MEDS: INSULIN SLIDING SCALE (NOVOLOG) 1 VIAL SQ SCH ×2 (06:33→11:57)
--- NOTE | 2018-06-04 08:35 | PN ---
Progress Note, Physician Chief Complaint: palp.s History of Present Illness: no sob today no palpitations no liquid in stomach feeling no cp legs swelling stable no cigs - Current Medication List Current Medications: Active Medications Acetaminophen (Tylenol Oral Solution -) 650 mg PO Q6H PRN PRN Reason: PAIN Last Admin: 05/27/18 17:36 Dose: 650 mg Albuterol Sulfate (Ventolin 0.083% Nebulizer Soln -) 1 amp NEB Q4H PRN PRN Reason: SHORT OF BREATH/WHEEZING Last Admin: 06/03/18 07:38 Dose: 1 amp Aspirin (Asa -) 81 mg PO DAILY [facility] Last Admin: 06/03/18 10:23 Dose: 81 mg Clonazepam (Klonopin -) 0.5 mg PO Q6H PRN PRN Reason: ANXIETY Last Admin: 06/02/18 17:21 Dose: 0.5 mg Ezetimibe (Zetia -) 10 mg PO Q48H [facility] Last Admin: 06/02/18 21:21 Dose: 10 mg Ferrous Sulfate (Feosol -) 325 mg PO BID [facility] Last Admin: 06/03/18 22:15 Dose: 325 mg Heparin Sodium (Porcine) (Heparin -) 5,000 unit SQ TID [facility] Last Admin: 06/04/18 06:32 Dose: 5,000 unit Hydralazine HCl (Apresoline -) 37.5 mg PO TID [facility] Last Admin: 06/04/18 06:28 Dose: 37.5 mg Insulin Aspart (Novolog Vial Sliding Scale -) 1 vial SQ [facility]; Protocol Last Admin: 06/04/18 06:33 Dose: Not Given Insulin Detemir (Levemir Vial) 20 units SQ [facility] Last Admin: 06/03/18 22:29 Dose: Not Given Metoprolol Succinate (Toprol Xl -) 50 mg PO BID [facility] Last Admin: 06/03/18 22:13 Dose: 50 mg Mometasone Furoate (Asmanex 220mcg -) 1 puff IH BID [facility] Last Admin: 06/03/18 22:13 Dose: Not Given Nitroglycerin (Nitro-Dur Patch -) 0.2 mg TD DAILY [facility] Last Admin: 06/03/18 10:24 Dose: 0.2 mg Prasugrel (Effient -) 10 mg PO DAILY [facility] Last Admin: 06/03/18 10:24 Dose: 10 mg Propylthiouracil (Ptu -) 100 mg PO TID [facility] Last Admin: 06/04/18 06:33 Dose: 100 mg Rosuvastatin Calcium (Crestor -) 10 mg PO HS [facility] Last Admin: 06/03/18 22:15 Dose: 10 mg Torsemide (Demadex -) 40 mg PO BIDLASIX [facility] Last Admin: 06/04/18 06:29 Dose: 40 mg - Objective Vital Signs: Vital Signs Temperature 98.1 F 06/04/18 02:58 Pulse Rate 112 H 06/04/18 06:00 Respiratory Rate 20 06/04/18 06:00 Blood Pressure 145/76 06/04/18 06:00 O2 Sat by Pulse Oximetry (%) 98 06/03/18 19:59 Constitutional: Yes: No Distress, Calm Eyes: No: Sclera Icterus HENT: No: Nasal Congestion Cardiovascular: Yes: Regular Rate and Rhythm, S1, S2, Other (PMI non diplaced). No: JVD (in chair), Gallop, Murmur Respiratory: Yes: CTA Bilaterally. No: Accessory Muscle Use, Rales, Wheezes Gastrointestinal: Yes: Normal Bowel Sounds, Soft. No: Tenderness Musculoskeletal: Yes: Other (No kyphosis) Extremities: No: Cold Edema: Yes (nonpitting, stable) Integumentary: No: Jaundice Neurological: Yes: Alert, Oriented (x3) Psychiatric: No: Agitated Labs: CBC, BMP 06/03/18 09:40 Assessment/Plan ECG--sinus tach 138 bpm, nonspecific ST-T changes CT chest: small bilat effusions with atx. o/w clear lungs. R sided hydronephrosis [facility] 2014: unchanged 70-80% distal RCA lesion. patent mLAD stent. 80-90% pLCX-- [facility] Echo 12/2016: TDS. nl LV size/EF. mild LVH. grade 2 d.d., hi E/e' = high LAP. nl RV. mild LAE. mild-mod MR, mod TR. mild pHTN (46 mmHg). tele: NSR alt with ATach to 110s acute on chronic diast CHF: -exacerbated recently by uncontrolled hyperthyroidism with tachycardia (and htn) -new dry wt due to hyperthyroid-related wt loss. has been 221-225 at home -BP and HR control as doing (as med intolerances allow) -torsemide initially held here (was taking 40mg qd at home recently)--developed fluid overload -diuresed well here with lasix 40 IV qd initially, then with 80 iv QD. changed to torsemide 40 bid on 06/03 (did not diurese well with torsemide 40 qd here) 06/04: wt continues to decline. renal fxn stable. does not subjectively diurese much to torsemide 40 doses. rec'd torsemide 80 qd but she is too nervous about her kidneys. advised she go on torsemide 60 qd when leaves hospital and call me in 3days with wt trend--if going up will increase torsemide dose paroxysmal atrial tach, sinus tach, palpitations, thyrotoxicosis: -remote h/o intolerance to metoprolol, atenolol, ? 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 -low dose diltiazem at home ? caused GI upset (30 tid dose)--deferring re-trial -coreg CR changed to metopr succ, now at 50mg qd. -in and out of PAT here, with HR consistently <120. -HR no better on metopr 50 bid--change back to qd given asthma and prior s.e. to metoprolol not likely to tolerate higher dose. if HRs remain consistently < 120, she is likely to tolerate this without CHF exacerbation for next couple of months until thyroid fxn normalizes labile HTN: -prior reasonable control, lost of late due to hyperthyroidism which was initially untreated for several weeks -mult med intolerances in past -changed hydral 50 tid back to 37.5 tid (intolerable reflex tachycardia/ palpitations on 50mg dose in past) -coreg CR has been held, while metoprolol given for tachycardia control -bp controlled CAD, prior NSTEMI/PCI: -non-ischemic ECG here (ST-Ts likely rate-related). trop 0.3 x 2 intermediate range, flat trend--consistent with chronic elevation from pt with known chronically elevated filling pressures, ? contribution from tachycardia as well -cont home DAPT (aspirin/effient), statin with zetia, bb OBI on CKD: -baseline creat runs 2.5-2.8 -initially creat 2.5 on DOA, has been stable 2.9-3.1 at present -R sided hydronephrosis on CT scan--? if contributing to her renal dysfunction - following, considering intervention mod-severe asthma, frequent exacerbations: -have downtitrated b-isrrael (previously coreg CR) to minimal tolerated dose ( requires for BP and tachycardia control)--was on coreg CR 10mg -bb changed recently to control tachycardia in setting of thyrotoxicosis -airways tx per pulmonary -currently stable HPL: -intolerant of mult statins -LDL at baseline is >200 -well controlled on home rosuvastatin plus zetia regimen with LDL near 100-120 chronic anemia: -baseline hgb runs 9s-10s. counts stable here OK FOR D/C FROM CV P.O.V.
[2018-06-04 08:44] LABS: CHLORIDE 100 mmol/L (98-107); POTASSIUM 4.4 mmol/L (3.5-5.1); SODIUM 139 mmol/L (136-145)
[2018-06-04 09:04] LABS: ANION GAP 11 (8-16); BLOOD UREA NITROGEN 65 mg/dL (7-18); CALCIUM 9.2 mg/dL (8.5-10.1); CO2 28 mmol/L (21-32); CREATININE 2.9 mg/dL (0.55-1.02); GLUCOSE,RANDOM 173 mg/dL (74-106)
[2018-06-04] MEDS ORDERED: PT OWN MED DRAWER 7, Y5N ONE (10:16)
[2018-06-04] MEDS: NITROGLYCERIN 0.2 MG/HOUR TD PATCH TD SCH (10:17)
[2018-06-04] MEDS: ASPIRIN 81 MG CHEWABLE TABLETS PO SCH (10:17)
[2018-06-04] MEDS: FERROUS SO4 325 MG TABLET (FP) PO SCH (10:17)
[2018-06-04] MEDS: PRASUGREL HCL 10 MG TAB PO SCH (10:18)
[2018-06-04] MEDS: MOMETASONE FUROATE 220 MCG/IH INHALER IH SCH (10:19)
--- NOTE | 2018-06-04 12:43 | PN ---
Teaching Attending Note Name of Resident: Tayler Buchanan ATTENDING PHYSICIAN STATEMENT I saw and evaluated the patient. I reviewed the resident's note and discussed the case with the resident. I agree with the resident's findings and plan as documented with exceptions below. SUBJECTIVE: patient seen and examined. feeling better, ambulating well, no chest pain, palpitations, dyspnea, dizziness or new concerns. OBJECTIVE: Vital Signs Period Temp Pulse Resp BP Sys/Shankar Pulse Ox Last 24 Hr 98.1 F-98.8 F 107-119 18-20 126-155/69-114 98 Intake & Output 06/01/18 06/02/18 06/03/18 06/04/18 23:59 23:59 23:59 23:59 Intake Total 1140 920 Output Total 500 800 Balance 640 120 Weight 213 lb 214 lb 4 oz 212 lb 8 oz 211 lb 4 oz General: ambulating in room no concerns Chest: no rales or wheezing, good air entry Extremities: overall with some change from prior, still with pititng bipedal edema Abdomen:Sof,t NT Laboratory Results - last 24 hr 06/03/18 06/03/18 06/04/18 16:11 22:27 06:26 Sodium Potassium Chloride Carbon Dioxide Anion Gap BUN Creatinine Creat Clearance w eGFR POC Glucometer 170 162 160 Random Glucose Calcium 06/04/18 06/04/18 06:35 11:55 Sodium 139 Potassium 4.4 Chloride 100 Carbon Dioxide 28 Anion Gap 11 BUN 65 H Creatinine 2.9 H Creat Clearance w eGFR 16.39 POC Glucometer 179 Random Glucose 173 H Calcium 9.2 ASSESSMENT AND PLAN: 62-year-old woman with a history of chronic diastolic heart failure, type 2 DM, HTN, hyperlipidemia, CAD, CABG, asthma, KATINA, anxiety, pulm HTN, PAF who presented to the ER with palpitations and found to be acute thyrotoxicosis -Acute thyrotoxicosis -Sinus tachycardia, from above -LLL atelectasis, vs infiltrates, Afebrile, normal WBC and CT chest neg for infiltrate/consolidation -Asthma, with bronchospam, ?Beta isrrael induced -OBI on CKD stage III (baseline cr around 2.6-2.8) -Acute on chronic diastolic HF exacerbation -Right hydronephrosis with outlet obstruction -Anemia, Acute on Chronic -HTN -CAD s/p 2 PCI -PAF, in sinus currently Plan: Doing well, discussed with Dr. Chen, Torsemide 60 mg daily, to contact Dr. Chen on wednesday with weight trend. Toprol XL 50 mg daily. As discussed with Dr. Gonsales, PTU and outpatient endocrine follow up in 2 weeks. Outpatient urology follow up in 1 week. Renal function stable. Medication changes, need for follow up and d/c instructions discussed in detail , with patient and all questions answered. d/c home today.
--- NOTE | 2018-06-04 13:42 | PN ---
Progress Note (short form) - Note Progress Note: Overall feeling better. No CP or SOB. Intake & Output 06/01/18 06/02/18 06/03/18 06/04/18 23:59 23:59 23:59 23:59 Intake Total 1140 920 Output Total 500 800 Balance 640 120 Weight 213 lb 214 lb 4 oz 212 lb 8 oz 211 lb 4 oz Last Vital Signs Temp Pulse Resp BP Pulse Ox 98.1 F 112 H 20 145/76 98 06/04/18 02:58 06/04/18 06:00 06/04/18 06:00 06/04/18 06:00 06/03/18 19:59 Active Medications Acetaminophen (Tylenol Oral Solution -) 650 mg PO Q6H PRN PRN Reason: PAIN Last Admin: 05/27/18 17:36 Dose: 650 mg Aspirin (Asa -) 81 mg PO DAILY [facility] Last Admin: 06/04/18 10:17 Dose: 81 mg Clonazepam (Klonopin -) 0.5 mg PO Q6H PRN PRN Reason: ANXIETY Last Admin: 06/02/18 17:21 Dose: 0.5 mg Ezetimibe (Zetia -) 10 mg PO Q48H [facility] Last Admin: 06/02/18 21:21 Dose: 10 mg Ferrous Sulfate (Feosol -) 325 mg PO BID [facility] Last Admin: 06/04/18 10:17 Dose: 325 mg Heparin Sodium (Porcine) (Heparin -) 5,000 unit SQ TID [facility] Last Admin: 06/04/18 13:19 Dose: 5,000 unit Hydralazine HCl (Apresoline -) 37.5 mg PO TID [facility] Last Admin: 06/04/18 13:18 Dose: 37.5 mg Insulin Aspart (Novolog Vial Sliding Scale -) 1 vial SQ ACHS [facility]; Protocol Last Admin: 06/04/18 11:57 Dose: 2 units Insulin Detemir (Levemir Vial) 20 units SQ HS [facility] Last Admin: 06/03/18 22:29 Dose: Not Given Metoprolol Succinate (Toprol Xl -) 50 mg PO DAILY [facility] Last Admin: 06/04/18 10:17 Dose: 50 mg Mometasone Furoate (Asmanex 220mcg -) 1 puff IH BID [facility] Last Admin: 06/04/18 10:19 Dose: Not Given Nitroglycerin (Nitro-Dur Patch -) 0.2 mg TD DAILY [facility] Last Admin: 06/04/18 10:17 Dose: 0.2 mg Prasugrel (Effient -) 10 mg PO DAILY [facility] Last Admin: 06/04/18 10:18 Dose: 10 mg Propylthiouracil (Ptu -) 100 mg PO TID [facility] Last Admin: 06/04/18 13:19 Dose: 100 mg Rosuvastatin Calcium (Crestor -) 10 mg PO HS [facility] Last Admin: 06/03/18 22:15 Dose: 10 mg Torsemide (Demadex -) 60 mg PO DAILY [facility] Constitutional: Yes: NAD Eyes: Yes: WNL HENT: Yes: WNL Neck: Yes: WNL Cardiovascular: Yes: S1, S2 Respiratory: Yes: Diminished at the bases Gastrointestinal: Yes: Normal Bowel Sounds, Soft Extremities: Yes: WNL Edema: Yes Labs: Laboratory Results - last 24 hr 06/03/18 06/03/18 06/04/18 16:11 22:27 06:26 Sodium Potassium Chloride Carbon Dioxide Anion Gap BUN Creatinine Creat Clearance w eGFR POC Glucometer 170 162 160 Random Glucose Calcium 06/04/18 06/04/18 06:35 11:55 Sodium 139 Potassium 4.4 Chloride 100 Carbon Dioxide 28 Anion Gap 11 BUN 65 H Creatinine 2.9 H Creat Clearance w eGFR 16.39 POC Glucometer 179 Random Glucose 173 H Calcium 9.2 Problem List - Problems (1) Acute on chronic heart failure Code(s): I50.9 - HEART FAILURE, UNSPECIFIED Qualifiers: Heart failure type: diastolic Qualified Code(s): I50.33 - Acute on chronic diastolic (congestive) heart failure (2) CAD (coronary artery disease) Code(s): I25.10 - ATHSCL HEART DISEASE OF [place] CORONARY ARTERY W/O ANG PCTRS Qualifiers: Coronary Disease-Associated Artery/Lesion type: [place] artery [place] vs. transplanted heart: [place] heart Associated angina: without angina Qualified Code(s): I25.10 - Atherosclerotic heart disease of [place] coronary artery without angina pectoris (3) CKD (chronic kidney disease) Code(s): N18.9 - CHRONIC KIDNEY DISEASE, UNSPECIFIED (4) KATINA (obstructive sleep apnea) Code(s): G47.33 - OBSTRUCTIVE SLEEP APNEA (ADULT) (PEDIATRIC) (5) ASHD (arteriosclerotic heart disease) Code(s): I25.10 - ATHSCL HEART DISEASE OF [place] CORONARY ARTERY W/O ANG PCTRS (6) CHF (congestive heart failure) Code(s): I50.9 - HEART FAILURE, UNSPECIFIED Qualifiers: Heart failure type: unspecified Heart failure chronicity: acute on chronic Qualified Code(s): I50.9 - Heart failure, unspecified (7) HLD (hyperlipidemia) Code(s): E78.5 - HYPERLIPIDEMIA, UNSPECIFIED Qualifiers: Hyperlipidemia type: pure hypercholesterolemia Qualified Code(s): E78.00 - Pure hypercholesterolemia, unspecified; E78.0 - Pure hypercholesterolemia (8) HTN (hypertension) Code(s): I10 - ESSENTIAL (PRIMARY) HYPERTENSION Qualifiers: Hypertension type: essential hypertension Qualified Code(s): I10 - Essential (primary) hypertension (9) IDDM (insulin dependent diabetes mellitus) Code(s): E11.9 - TYPE 2 DIABETES MELLITUS WITHOUT COMPLICATIONS; Z79.4 - PEDIATRIC CNS (CURRENT) USE OF INSULIN (10) Sleep apnea, obstructive Code(s): G47.33 - OBSTRUCTIVE SLEEP APNEA (ADULT) (PEDIATRIC) (11) Hypertensive urgency Code(s): I16.0 - HYPERTENSIVE URGENCY (12) Hyperthyroidism Code(s): E05.90 - THYROTOXICOSIS, UNSP WITHOUT THYROTOXIC CRISIS OR STORM (13) Pneumonia Code(s): J18.9 - PNEUMONIA, UNSPECIFIED ORGANISM (14) Thyrotoxicosis Code(s): E05.90 - THYROTOXICOSIS, UNSP WITHOUT THYROTOXIC CRISIS OR STORM Assessment/Plan IMP DYSPNEA IMPROVING CHF IMPROVING EFFUSION/ATELECTASIS S/P HYPERTENSIVE URGENCY TACHYCARDIA HYPERTHYROIDISM ACUTE ON CKD PULMONARY HTN DM OSAS ON CPAP [id number] ASHD S/P NSTEMI,S/P STENTS ASTHMA CHRONIC VENOUS INSUFFICIENCY R HYDRONEPHROSIS PLAN O2 DIURETICS CONTINUE HOME RESP MEDS 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
--- NOTE | 2018-06-04 14:10 | DS ---
Physical Exam: SUBJECTIVE: Patient seen and examined at her bedside this morning. Patient says she is feeling better and the coughing has been minimal. Denies fevers, chills, chest pain, SOB. OBJECTIVE: Vital Signs Period Temp Pulse Resp BP Sys/Shankar Pulse Ox Last 24 Hr 98.1 F-98.8 F 107-119 18-20 126-155/69-114 98 PHYSICAL EXAM GENERAL: The patient is awake, alert, and fully oriented, in no acute distress. LUNGS: Breath sounds equal, CTA B/L, no wheezes HEART: Regular rate and rhythm, S1, S2 without murmur, rub or gallop ABDOMEN: Obese, Soft, nontender, distended, normoactive bowel sounds EXTREMITIES: 2+ lower extremity nonpitting edema, not much change from previous LABS Laboratory Results - last 24 hr 06/03/18 06/03/18 06/04/18 16:11 22:27 06:26 Sodium Potassium Chloride Carbon Dioxide Anion Gap BUN Creatinine Creat Clearance w eGFR POC Glucometer 170 162 160 Random Glucose Calcium 06/04/18 06/04/18 06:35 11:55 Sodium 139 Potassium 4.4 Chloride 100 Carbon Dioxide 28 Anion Gap 11 BUN 65 H Creatinine 2.9 H Creat Clearance w eGFR 16.39 POC Glucometer 179 Random Glucose 173 H Calcium 9.2 IMAGING: CT chest- 05/27/18: 1. Bilateral lower lobe atelectasis and small pleural effusions. There is no evidence of pneumonia or acute pathology within the chest. 2. Prominent thyroid gland. 2. Mild mediastinal lymphadenopathy. 4. Cardiomegaly. 5. Extensive right-sided hydronephrosis with cortical thinning. Clinical correlation and follow-up recommended. Nuclear renal scan: Overall mild delay in perfusion, uptake and excretion by both kidneys with cortical retention of tracer suggestive of an element of medical renal disease such as ATN. Dilated right renal pelvis with scintigraphic findings commensurate with outlet obstruction. Left kidney contributing to 57% and right kidney to 43% of the total renal function. HOSPITAL COURSE: Date of Admission:05/25/18 Date of Discharge: 06/04/18 PreHospital course as per Dr. Carey Gamboa Pt is a 63 yo F with a signif PMHx of DM, hyperthyroidism (diagnosed one month ago), HTN, CHF, HLD, CKD, asthma, iron deficiency, CAD (stents x2-2012, 2015), and afib (in distant past) presenting for tachycardia in 150s. Pt went for a routine visit to Dr Tamara Montes, when he noted tachy to 150 with blood pressure 178/116. Dr Montes called her PCP and she was sent to the ED. Pt was recently diagnosed with hyperthyroidism after a thyroid US and nuclear test and has been compliant on methimazole up till this morning. Pt noted palpitations, but no associated chest pain, no syncope. Pt has been having SOB for about a month, with RAMIREZ and orthopnea and bilateral pedal edema at baseline (since her first stent). Pt has had cough productive of whitish sputum for about a month, within which time she was admitted and treated for CHF exacerbation. No associated chills/fever, no sick contacts, no dysuria, no loose stools. In the ED, Dr Gonsales was consulted and he recommended methimazole 20mg tid and propranolol 20mg bid. Pt however received her home B isrrael in the ED. Hospital course Patient was admitted on 05/25 for acute thyrotoxicosis. She was found to have an elevated free T4 on admission. Her chest xray showed left lower lobe infiltrates. Her EKG showed Sinus Tachy. As per Dr. Gonsales, her methimizole was changed to PTU. A CT scan was done that showed no evidence of pneumonia but did show extensive right sided hydronephrosis. A Nuclear renal scan was performed that showed an outlet obstruction and Urology was consulted. Her coreg was stopped and changed to Metoprolol Succinate. Her Lasix was changed to Torsemide 40mg Daily. The last measured Free T4 1.00 and TSH < 0.01. She will need outpatient endocrine follow up for radioactive iodine. She will need outpatient Urology follow up to address her hydronephrosis and outlet obstruction. Her tachycardia has remained but better controlled. Patient will contact Dr. Chen on wednesday to discuss her intake and output and any weight changes. Patient will also need to follow up with cardio regarding her tachycardia once she is Euthyroid. Minutes to complete discharge: 40 Discharge Summary Reason For Visit: CHRONIC KIDNEY DISEASE; HYPERTENSION Current Active Problems Hydronephrosis (Acute) Hypertensive urgency (Acute) Hyperthyroidism (Acute) Pneumonia (Acute) Thyrotoxicosis (Acute) Condition: Good - Instructions Diet, Activity, Other Instructions: The following medications are being stopped on discharge Spironolactone. Coreg Methimazole You are started on the below new medications: Toprol XL 50 mg daily Asmanex inhaler Propyl thiouracil 100 mg 3 times daily The following medications are changed: Hydralazine is decreased to 37.5 mg 3 times daily from 50 mg 3 times daily. Torsemide is increased to 60mg daily You will need to monitor your daily weights and report them to Dr. Chen on Wednesday. Follow up with your regular doctor in [address] Chen on Wednesday as discussed (please call his office) With Dr. Gonsales in 2 weeks or discuss with your doctor for outpatient endocrine referral if not covered by your insurance, it is very important that you see an safety admin assistant in we With Dr. Cid (kidney doctor) in 1-[address] Grigsby in 1 week Following blood works on discharge BMP (Basic metabolic panel) in 1 week to monitor your kidneys You will need follow up thyroid testing per your safety admin assistant. Also there were concerns about blockage right kidney, but your kidney numbers have been stable. You are advised to follow up with urologist outpatient to discuss stenting vs Tube placement as indicated and need your kidney function monitored in the interim. Call 911 or come to ED if you notice any chest pain, palpitations, dizziness, decreased urination, belly pain or any new concerns. Referrals: William Bruner MD [Primary Care Provider] - 1 Week Sky Grigsby MD., [Staff Physician] - 1 Week Con Chen MD [Staff Physician] - 06/06/18 Sunny Gonsales MD [Staff Physician] - 2 Weeks Goyo Cid MD [Staff Physician] - 2 Weeks Disposition: HOME - Home Medications Comprehensive Discharge Medication List: Ambulatory Orders Aspirin [ASA -] 81 mg PO DAILY #1 tab 03/06/13 Ferrous Sulfate [Feosol] 325 mg PO BID #0 ud 05/08/15 Prasugrel Hydrochloride [Effient -] 10 mg PO DAILY #0 tab 05/08/15 Albuterol 0.083% Nebulizer Bibiana [Ventolin 0.083% Nebulizer Soln -] 1 neb NEB QID 09/14/16 Insulin Glargine,Hum.rec.anlog [Lantus (10mL VIAL) -] 30 units SQ HS 04/29/17 Insulin Lispro [Humalog] 100 unit SQ PRN 04/29/17 Budesonide/Formeterol Fumarate [SYMBICORT 160/4.5mcg -] 2 inh PO BID 06/13/17 clonazePAM [KlonoPIN] 0.5 mg PO QID PRN 06/13/17 Albuterol 0.083% Nebulizer Bibiana [Ventolin 0.083% Nebulizer Soln -] 1 amp NEB Q4H #1 amp 12/20/17 Ezetimibe [Zetia -] 10 mg PO Q48H 30 Days #30 tablet 12/20/17 Nitroglycerin Patch [Nitro-Dur Patch -] 0.2 mg TD DAILY #30 patch.td24 12/20/17 Rosuvastatin [Crestor -] 10 mg PO HS #30 tablet 04/15/18 Brimonidine Tartrate [Alphagan P 0.1% -] 3 drop OU Q8H 05/27/18 Latanoprost 0.005% Eye Drops [Xalatan 0.005% Eye Drops -] 1 drop OU DAILY Pantoprazole Sodium [Protonix -] 40 mg PO DAILY 05/27/18 Metoprolol Succinate [Toprol Xl -] 50 mg PO DAILY #30 tablet 06/04/18 Mometasone Furoate [Asmanex 220Mcg -] 1 puff IH BID #1 inhaler 06/04/18 Propylthiouracil 100 mg PO TID #90 tablet 06/04/18 Torsemide 60 mg PO DAILY #90 tablet 06/04/18 hydrALAZINE HCL [Apresoline -] 37.5 mg PO TID #135 tablet 06/04/18 This patient is new to me today: No Emergency Visit: No Critical Care patient: No - Discharge Referral Referred to [facility] No
[2018-06-04 14:28] VITALS: BP 134/66; PULSE 85; TEMP 99.1
[2018-06-05] MEDS ORDERED: TORSEMIDE 20 MG TABLET (FP) PO SCH (10:00)
== END 2018-06-04 13:49 | disposition home or self-care (01) | DRG 424 ==
LOC: JER 13:54 → JERBED 17:56 → J4W 20:33
PROVIDERS: ADMIT Internal Medicine; ATTEND Hospitalist
DX: E05.90 Thyrotoxicosis, unspecified without thyrotoxic crisis or storm (principal); I13.0 Hypertensive heart and chronic kidney disease with heart failure and stage 1 through stage 4 chronic kidney disease, or unspecified chronic kidney disease; I50.33 Acute on chronic diastolic (congestive) heart failure; I48.0 Paroxysmal atrial fibrillation; I27.20 Pulmonary hypertension, unspecified; E78.5 Hyperlipidemia, unspecified; I25.10 Atherosclerotic heart disease of native coronary artery without angina pectoris; D50.9 Iron deficiency anemia, unspecified; J45.909 Unspecified asthma, uncomplicated; E04.1 Nontoxic single thyroid nodule; F41.8 Other specified anxiety disorders; N17.9 Acute kidney failure, unspecified; I25.2 Old myocardial infarction; E11.22 Type 2 diabetes mellitus with diabetic chronic kidney disease; I16.0 Hypertensive urgency; D63.8 Anemia in other chronic diseases classified elsewhere; I34.0 Nonrheumatic mitral (valve) insufficiency; G47.33 Obstructive sleep apnea (adult) (pediatric); E11.9 Type 2 diabetes mellitus without complications; I73.9 Peripheral vascular disease, unspecified; R59.1 Generalized enlarged lymph nodes; R00.0 Tachycardia, unspecified; E66.9 Obesity, unspecified; Z68.35 Body mass index [BMI] 35.0-35.9, adult; J98.11 Atelectasis; D72.829 Elevated white blood cell count, unspecified; N13.30 Unspecified hydronephrosis; J44.9 Chronic obstructive pulmonary disease, unspecified; N18.4 Chronic kidney disease, stage 4 (severe); Z95.1 Presence of aortocoronary bypass graft; Z88.0 Allergy status to penicillin; Z95.5 Presence of coronary angioplasty implant and graft; Z79.4 Long term (current) use of insulin
CPT/HCPCS: 36415; 71045-TC-FY; 71250-TC; 76775-TC; 76856-TC; 78708-TC; 80048; 80053; 81003; 82550; 82728; 82962; 83540; 83550; 83735; 83880; 84100; 84439; 84443; 84481; 84484; 85025; 93005; 93010; 94640; 94660; 94761; 99284-25; A9562; J1644

== ENCOUNTER 2018-08-10 12:07 | Inpatient (IN) | payer OTHER ==
--- NOTE | 2018-08-10 13:39 | PDOC ---
History of Present Illness <Rubina Fernández - Last Filed: 08/10/18 16:13> - History of Present Illness Initial Comments: 08/10/18 14:24 63 yo F w/ a hx of recent thyrotoxicosis in May, chronic diastolic heart failure, type 2 DM, HTN, hyperlipidemia, CAD, CABG, asthma, KATINA, anxiety, pulm HTN, is here with a week of what she says is new onset bilateral leg swelling. She reports that 1 week ago her legs were not swollen. She is not currently taking any antithyroid meds as PTU was discontinued bc she was experiencing liver toxicity. She was scheduled for radioiodine ablation therapy yesterday but they rescheduled her to the the clinic was overbooked. She was sent in by Dr. Tamara Garcia to be admitted bc she is "very weak, hey thyroid is out of control, her chf, and advanced CKD" She also has significant posterior neck pain which makes it very difficult to lie down bc it is too painful. She says this has significantly interfered with her sleep. She denies recent fevers, infections, chest pain, new difficulty breathing, SOB , abdominal pain, dysuria, frequency, urgency, hematuria. 08/10/18 14:38 08/10/18 15:05 <William Berkowitz - Last Filed: 08/10/18 20:58> - General Chief Complaint: Weakness Stated Complaint: PCP SENT/WEAKNESS Time Seen by Provider: 08/10/18 13:33 Past History <Rubina Fernández - Last Filed: 08/10/18 16:13> - Past Medical History Anemia: Yes Asthma: Yes Cancer: No Cardiac Disorders: Yes ([place] 2013, 1 stent, CAD, Pulmonary HTN) CVA: No COPD: No CHF: Yes (Diastolic) DVT: No Dementia: No Diabetes: Yes (Insulin Dependent) GI Disorders: No Disorders: Yes (CKD, elevated creatinine) HTN: Yes Hypercholesterolemia: Yes Liver Disease: No Seizures: No Thyroid Disease: No - Surgical History Abdominal Surgery: No Appendectomy: No Cardiac Surgery: Yes (2 stents 04/29/2015) Cholecystectomy: No Lung Surgery: No Neurologic Surgery: No Orthopedic Surgery: Yes (arthroscopy sep 08 @ [facility]) - Immunization History Immunization Up to Date: Yes - Suicide/Smoking/Psychosocial Hx Smoking Status: No Smoking History: Never smoked Have you smoked in the past 12 months: No Number of Cigarettes Smoked Daily: 0 Information on smoking cessation initiated: No Hx Alcohol Use: No Drug/Substance Use Hx: No Substance Use Type: None Hx Substance Use Treatment: No <William Berkowitz - Last Filed: 08/10/18 20:58> - Past Medical History Allergies/Adverse Reactions: Allergies Allergy/AdvReac Type Severity Reaction Status Date / Time Penicillins Allergy Intermediate Hives Verified 08/10/18 12:22 Iodinated Contrast- Oral and Allergy Verified 08/10/18 12:22 IV Dye [Iodinated Contrast Media - IV Dye] tiotropium AdvReac Verified 08/10/18 12:22 [From Spiriva with HandiHaler] Home Medications: Ambulatory Orders Aspirin [ASA -] 81 mg PO DAILY #1 tab 03/06/13 Ferrous Sulfate [Feosol] 325 mg PO BID #0 ud 05/08/15 Prasugrel Hydrochloride [Effient -] 10 mg PO DAILY #0 tab 05/08/15 Albuterol 0.083% Nebulizer Bibiana [Ventolin 0.083% Nebulizer Soln -] 1 neb NEB QID 09/14/16 Insulin Glargine,Hum.rec.anlog [Lantus (10mL VIAL) -] 30 units SQ HS 04/29/17 Insulin Lispro [Humalog] 100 unit SQ PRN 04/29/17 Budesonide/Formeterol Fumarate [SYMBICORT 160/4.5mcg -] 2 inh PO BID 06/13/17 clonazePAM [KlonoPIN] 0.5 mg PO QID PRN 06/13/17 Albuterol 0.083% Nebulizer Bibiana [Ventolin 0.083% Nebulizer Soln -] 1 amp NEB Q4H #1 amp 12/20/17 Ezetimibe [Zetia -] 10 mg PO Q48H 30 Days #30 tablet 12/20/17 Nitroglycerin Patch [Nitro-Dur Patch -] 0.2 mg TD DAILY #30 patch.td24 12/20/17 Rosuvastatin [Crestor -] 10 mg PO HS #30 tablet 04/15/18 Brimonidine Tartrate [Alphagan P 0.1% -] 3 drop OU Q8H 06/29/18 Latanoprost 0.005% Eye Drops [Xalatan 0.005% Eye Drops -] 1 drop OU DAILY Pantoprazole Sodium [Protonix -] 40 mg PO DAILY 05/27/18 Metoprolol Succinate [Toprol Xl -] 50 mg PO DAILY #30 tablet 06/04/18 Mometasone Furoate [Asmanex 220Mcg -] 1 puff IH BID #1 inhaler 06/04/18 Propylthiouracil 100 mg PO TID #90 tablet 06/04/18 Torsemide 60 mg PO DAILY #90 tablet 06/04/18 hydrALAZINE HCL [Apresoline -] 37.5 mg PO TID #135 tablet 06/04/18 Review of Systems - Review of Systems Comments:: 08/10/18 15:10 CONSTITUTIONAL: Positive: Chills, generalized weakness, malaise Absent: fever, diaphoresis, loss of appetite HEENT: Positive: Periodic hoarseness, thyroid nodules, goiter Absent: rhinorrhea, nasal congestion, throat pain, throat swelling, difficulty swallowing, mouth swelling, ear pain, eye pain, visual Changes CARDIOVASCULAR: Positive: Irregular heart rate, peripheral edema Absent: chest pain, syncope, palpitations, lightheadedness RESPIRATORY: Positve: Cough, orthopnea Absent: shortness of breath, dyspnea with exertion, wheezing, stridor, hemoptysis GASTROINTESTINAL: Absent: abdominal pain, abdominal distension, nausea, vomiting, diarrhea, constipation, melena, hematochezia GENITOURINARY: Positive: Flank pain Absent: dysuria, frequency, urgency, hesitancy, hematuria, genital pain MUSCULOSKELETAL: Positive: myalgia, arthralgia, joint swelling SKIN: Absent: rash, itching, pallor HEMATOLOGIC/IMMUNOLOGIC: Absent: easy bleeding, easy bruising, lymphadenopathy, frequent infections ENDOCRINE: Positive: unexplained weight gain Absent: unexplained weight loss, heat intolerance, cold intolerance NEUROLOGIC: Positive: Unsteady gait Absent: headache, focal weakness or paresthesias, dizziness, seizure, mental status changes, bladder or bowel incontinence PSYCHIATRIC: Positive: Anxiety Absent: depression, suicidal or homicidal ideation, hallucinations. <William Berkowitz - Last Filed: 08/10/18 20:58> *Physical Exam - Vital Signs Last Vital Signs Temp Pulse Resp BP Pulse Ox 89 F L 89 18 149/67 98 08/10/18 12:21 08/10/18 12:21 08/10/18 12:21 08/10/18 12:21 08/10/18 12:21 <Rubina Fernández - Last Filed: 08/10/18 16:13> - Vital Signs Last Vital Signs Temp Pulse Resp BP Pulse Ox 89 F L 89 18 149/67 98 08/10/18 12:21 08/10/18 12:21 08/10/18 12:21 08/10/18 12:21 08/10/18 12:21 - Physical Exam Comments: 08/10/18 15:14 VS as noted above - except - Temp measured at bedside 98.3. HR - 118. GENERAL: Patient is awake and alert. She appears uncomfortable, but well nourished. She is in distress. HEENT: Left eye not examined bc patient has pain with movement due to recent surgeries. Right eye - Perlla, eomi. Normocephalic, atraumatic.No conjunctival pallor. Sclera are non-icteric. Moist mucous membranes. White spots on the posterior surface of R hard palate NECK: There is a palpable step off in the c4/c5 area. She has a diffuse goiter along with multiple thyroid nodules bilaterally. Supple. No JVD. Carotid pulses 2+ and symmetric, without bruits. CARDIOVASCULAR: Tachycardic rate and regular rhythm. No murmurs, rubs, or gallops. Distal pulses are 2+ and symmetric. PULMONARY: No evidence of respiratory distress. Lungs clear to auscultation bilaterally. No wheezing, rales or rhonchi. ABDOMINAL: Soft. Non-tender. Non-distended. No rebound or guarding. No organomegaly. Normoactive bowel sounds. MUSCULOSKELETAL Limited range of motion at all leg joints. No bony deformities or tenderness. No CVA tenderness. EXTREMITIES: There is 2+ pitting edema in both legs. The anterior shins are shiny in appearance and have significant swelling. No cyanosis. No clubbing. No calf tenderness. SKIN: Warm and dry. Normal capillary refill. No rashes. No jaundice. NEUROLOGICAL: Alert, awake, appropriate. Cranial nerves 2-12 intact. No deficits to light touch in face, upper extremities and lower extremities. Normal speech. PSYCHIATRIC: Cooperative. Good eye contact. Appropriate mood and affect. <William Berkowitz - Last Filed: 08/10/18 20:58> ED Treatment Course - LABORATORY CBC & Chemistry Diagram: 08/10/18 14:28 08/10/18 14:15 - ADDITIONAL ORDERS Additional order review: Laboratory Results 08/10/18 14:15 Sodium 136 Potassium 4.2 Chloride 104 Carbon Dioxide 20 L Anion Gap 12 BUN 111 H* D Creatinine 3.4 H Creat Clearance w eGFR 13.64 Random Glucose 242 H Calcium 8.9 Total Bilirubin 0.5 AST 37 ALT 52 Alkaline Phosphatase 164 H Creatine Kinase 46 Troponin I 0.40 H Total Protein 6.5 Albumin 3.0 L TSH < 0.01 L 08/10/18 14:28 RBC 3.98 MCV 75.9 L MCHC 32.6 RDW 14.2 MPV 8.7 Neutrophils % 68.2 D Lymphocytes % 17.4 D Monocytes % 12.8 H Eosinophils % 0.7 Basophils % 0.9 - Medications Given in the ED: ED Medications Discontinued Medications Generic Name Dose Route Start Last Admin Trade Name Shan PRN Reason Stop Dose Admin Acetaminophen 1,000 mg 08/10/18 14:11 08/10/18 14:28 Ofirmev Injection - IVPB 08/10/18 14:12 1,000 mg ONCE ONE Administration - Consult/PCP Time Called: 16:13 (Paged Dr. Bruner's service) <Rubina Fernández - Last Filed: 08/10/18 16:13> - LABORATORY CBC & Chemistry Diagram: 08/10/18 14:28 08/10/18 14:15 <William Berkowitz - Last Filed: 08/10/18 20:58> Medical Decision Making - Medical Decision Making 08/10/18 15:21 63 yo F w/ a hx of recent thyrotoxicosis in May, chronic diastolic heart failure, type 2 DM, HTN, hyperlipidemia, CAD, CABG, asthma, KATINA, anxiety, pulm HTN, sent here by Doc to be admitted. She has significant bilateral pitting edema which she claims is new in nature. She also has neck pain and a palpable step-off. Plan: tsh, t4, t3, cbc, cmp, calcium, heart profile, ekg, tylenol, cervical spine xrays, re-assess. TSH is non detectable indicating the patient can still be in thyrotoxicosis. Given her tachycardia we will administer 1 mg IV propranolol to start. Her Tachycardia decresed to a rate of 72 after 1 mg of propranolol. She still has significant neck pain that did not improve with 1000 of acetaminophen so giving her 4 of morphine. She refused the morphine bc she doesn't like the way it makes her feel. She is only willing to accept acetaminophen. After re-assessment her HR went back up to 112. Plan is to give her 2 mg propranolol IV this time. Placed consult to Dr. Chen her non morse intercept technician Placed consult to Dr. Gonsales her endocronologist The major problem for this patient is to figure out what is the cause of her bilaterall leg swelling. DD: myxedema vs lymphedema vs heart failure Patient will be admitted to Dr. Kelley's service for a more thorough workup. 08/10/18 16:18 08/10/18 17:59 08/10/18 18:10 08/10/18 20:55 08/10/18 20:57 <William Berkowitz - Last Filed: 08/10/18 20:58> *DC/Admit/Observation/Transfer <Rubina Fernández - Last Filed: 08/10/18 16:13> - Discharge Dispostion Decision to Admit order: Yes <William Berkowitz - Last Filed: 08/10/18 20:58> Diagnosis at time of Disposition: Thyrotoxicosis - Discharge Dispostion Condition at time of disposition: Guarded
[2018-08-10] MEDS ORDERED: ACETAMINOPHEN 1000 MG/100 ML VIAL (NON FORMULARY) IVPB ONE (14:11)
[2018-08-10] MEDS ORDERED: ACETAMINOPHEN INJECTION 100 ML IVPB ONE (14:24)
[2018-08-10 14:32] LABS: BASO % 0.9 % (0-2.0); EOS % 0.7 % (0-4.5); HEMATOCRIT 30.2 % (32.4-45.2); HEMOGLOBIN 9.8 GM/dL (10.7-15.3); LYMPH % 17.4 % (8-40); MCH 24.7 pg (25.7-33.7); MCHC 32.6 g/dl (32.0-36.0); MEAN CELL VOLUME 75.9 fl (80-96); MEAN PLT VOLUME 8.7 fl (7.5-11.1); MONO % 12.8 % (3.8-10.2); NEUT % 68.2 % (42.8-82.8); PLATELET COUNT 241 K/MM3 (134-434); RBC 3.98 M/mm3 (3.60-5.2); RDW 14.2 % (11.6-15.6); WHITE BLOOD COUNT 7.1 K/mm3 (4.0-10.0)
--- NOTE | 2018-08-10 14:41 | PDOC ---
Attending Attestation - Resident Resident Name: William Berkowitz - ED Attending Attestation I have performed the following: I have examined & evaluated the patient, The case was reviewed & discussed with the resident, I agree w/resident's findings & plan, Exceptions are as noted - HPI HPI: 08/18/18 02:36 63-year-old female with history of hyperthyroidism presents with atraumatic neck pain and worsening lower extremity edema. Patient discontinued PTU and some is old due to hepatotoxicity and has been scheduled for thyroid ablation. - Physicial Exam PE: 08/10/18 15:27 Awake alert, obese, in moderate distress; Normocephalic and atraumatic PERRLA, EOMI No JVD Step-off is noted at C3-C4 with mild midline C4 tenderness to palpation CTA Large goiter with multiple nodules is noted RRR Abdomen is soft, nontender nondistended +3 pitting edema of lower extremity is bilaterally is noted Distal pulses are +1 bilaterally due to soft tissue edema - Medical Decision Making 08/10/18 16:37 63-year-old female with multiple comorbidities, history of hyperthyroidism presents with worsening lower extremity pitting edema and neck pain. Will obtain cervical spine series to rule out spondylolisthesis. Will obtain lower extremity Doppler ultrasound to rule out DVT. I suspect diastolic CHF exacerbation related to thyrotoxicosis. We'll administer IV propranolol, IV Lasix; Will admit.
[2018-08-10 14:57] LABS: ANION GAP 12 MMOL/L (8-16); BILIRUBIN,TOTAL 0.5 mg/dL (0.2-1.0); CALCIUM 8.9 mg/dL (8.5-10.1); CHLORIDE 104 mmol/L (98-107); CO2 20 mmol/L (21-32); CREATININE 3.4 mg/dL (0.55-1.02); GLUCOSE,RANDOM 242 mg/dL (74-106); POTASSIUM 4.2 mmol/L (3.5-5.1); SGOT/AST 37 U/L (15-37); SGPT/ALT 52 U/L (12-78); SODIUM 136 mmol/L (136-145); TOT PROT 6.5 g/dl (6.4-8.2)
[2018-08-10 15:06] LABS: ALK PHOS 164 U/L (45-117)
[2018-08-10 15:08] LABS: BLOOD UREA NITROGEN 111 mg/dL (7-18)
--- NOTE | 2018-08-10 15:57 | EKG ---
Test Reason : Blood Pressure : / mmHG Vent. Rate : 118 BPM Atrial Rate : 118 BPM P-R Int : 196 ms QRS Dur : 092 ms QT Int : 356 ms P-R-T Axes : 037 000 179 degrees QTc Int : 498 ms SINUS TACHYCARDIA POSSIBLE LEFT ATRIAL ENLARGEMENT CANNOT RULE OUT ANTERIOR INFARCT , AGE UNDETERMINED ABNORMAL ECG WHEN COMPARED WITH ECG OF 31-MAY-2018 12:05, SIGNIFICANT CHANGES HAVE OCCURRED Confirmed by COLE LEWIS, JULISSA ([id number]) on 08/10/2018 3:57:03 PM Referred By: Confirmed By:JULISSA GALVAN MD
[2018-08-10] MEDS ORDERED: morphine CARPU-JECT 4 MG/1 ML DISP.SYRIN IVPUSH ONE (18:09)
[2018-08-10] MEDS ORDERED: morphine SULFATE 4 MG/ML VIAL ONE (19:22)
--- NOTE | 2018-08-10 21:02 | HP ---
Admitting History and Physical - Primary Care Physician PCP: Katrin Kelley - Admission History of Present Illness: 63 yo F w/ a hx of recent thyrotoxicosis in May, chronic diastolic heart failure, type 2 DM, HTN, hyperlipidemia, CAD, CABG, asthma, KATINA, anxiety, pulm HTN, is here with a week of what she says is new onset bilateral leg swelling. She reports that 1 week ago her legs were not swollen. She is not currently taking any antithyroid meds as PTU was discontinued bc she was experiencing liver toxicity. She was scheduled for radioiodine ablation therapy yesterday but they rescheduled her to the the clinic was overbooked. She was sent in by Dr. Tamara Garcia to be admitted she is "very weak, hey thyroid is out of control, her chf, and advanced CKD" She also has significant posterior neck pain which makes it very difficult to lie down bc it is too painful. She says this has significantly interfered with her sleep. - Past Medical History Cardiovascular: Yes: AFIB, CAD, CHF, HTN, Hyperlipdemia, [place], Mitral Insufficiency, Pulmonary Hypertension Pulmonary: Yes: Sleep Apnea Renal/: Yes: Renal Failure Heme/Onc: Yes: Anemia Endocrine: Yes: Diabetes Mellitus - Past Surgical History Past Surgical History: Yes: Stent - Smoking History Smoking history: Never smoked Have you smoked in the past 12 months: No Aproximately how many cigarettes per day: 0 - Alcohol/Substance Use Hx Alcohol Use: No Home Medications - Allergies Allergies/Adverse Reactions: Allergies Allergy/AdvReac Type Severity Reaction Status Date / Time Penicillins Allergy Intermediate Hives Verified 08/10/18 12:22 Iodinated Contrast- Oral and Allergy Verified 08/10/18 12:22 IV Dye [Iodinated Contrast Media - IV Dye] tiotropium AdvReac Verified 08/10/18 12:22 [From Spir[facility] with HandiHaler] - Home Medications Home Medications: Ambulatory Orders Aspirin [ASA -] 81 mg PO DAILY #1 tab 03/06/13 Prasugrel Hydrochloride [Effient -] 10 mg PO DAILY #0 tab 05/08/15 Albuterol 0.083% Nebulizer Bibiana [Ventolin 0.083% Nebulizer Soln -] 1 neb NEB QID 09/14/16 Insulin Glargine,Hum.rec.anlog [Lantus (10mL VIAL) -] 10 units SQ HS PRN Insulin Lispro [Humalog] 100 unit SQ PRN 04/29/17 Budesonide/Formeterol Fumarate [SYMBICORT 160/4.5mcg -] 2 inh PO BID 06/13/17 clonazePAM [KlonoPIN] 0.5 mg PO QID PRN 06/13/17 Albuterol 0.083% Nebulizer Bibiana [Ventolin 0.083% Nebulizer Soln -] 1 amp NEB Q4H #1 amp 12/20/17 Ezetimibe [Zetia -] 10 mg PO Q48H 30 Days #30 tablet 12/20/17 Nitroglycerin Patch [Nitro-Dur Patch -] 0.2 mg TD DAILY #30 patch.td24 12/20/17 Rosuvastatin [Crestor -] 10 mg PO HS #30 tablet 04/15/18 Brimonidine Tartrate [Alphagan P 0.1% -] 3 drop OU Q8H 05/27/18 Latanoprost 0.005% Eye Drops [Xalatan 0.005% Eye Drops -] 1 drop OU DAILY Pantoprazole Sodium [Protonix -] 40 mg PO DAILY 05/27/18 Mometasone Furoate [Asmanex 220Mcg -] 1 puff IH BID #1 inhaler 06/04/18 hydrALAZINE HCL [Apresoline -] 37.5 mg PO TID #135 tablet 06/04/18 Acetaminophen [Tylenol] 650 mg PO Q4H PRN 08/11/18 Ferrous Sulfate [Feosol] 28 mg PO BID 08/11/18 Propylthiouracil 50 mg PO DAILY 08/11/18 Torsemide 20 mg PO DAILY 08/11/18 Carvedilol Phosphate [Coreg Cr -] 20 mg PO DAILY #30 capsule.sa 08/14/18 Physical Examination Vital Signs: Vital Signs Temperature 97.3 F L 08/10/18 19:36 Pulse Rate 117 H 08/10/18 19:38 Respiratory Rate 17 08/10/18 19:36 Blood Pressure 140/77 08/10/18 19:36 O2 Sat by Pulse Oximetry (%) 97 08/10/18 19:38 Constitutional: Yes: No Distress HENT: Yes: Atraumatic Neck: Yes: Supple Cardiovascular: Yes: Regular Rate and Rhythm Respiratory: Yes: CTA Bilaterally Gastrointestinal: Yes: Normal Bowel Sounds Extremities: Yes: WNL Edema: Yes Edema: LLE: 3+, RLE: 3+ Peripheral Pulses WNL: Yes Neurological: Yes: Alert, Oriented Labs: CBC, BMP 08/10/18 14:28 08/10/18 14:15 Problem List - Problems (1) Thyrotoxicosis Assessment/Plan: pt on meds was supposed to go for thyroid ablation Code(s): E05.90 - THYROTOXICOSIS, UNSP WITHOUT THYROTOXIC CRISIS OR STORM (2) HLD (hyperlipidemia) Code(s): E78.5 - HYPERLIPIDEMIA, UNSPECIFIED Qualifiers: (3) HTN (hypertension) Assessment/Plan: on meds stable Code(s): I10 - ESSENTIAL (PRIMARY) HYPERTENSION Qualifiers: (4) IDDM (insulin dependent diabetes mellitus) Assessment/Plan: bgms insulin sliding scale Code(s): E11.9 - TYPE 2 DIABETES MELLITUS WITHOUT COMPLICATIONS; Z79.4 - CARE HOME (CURRENT) USE OF INSULIN (5) Lymphedema Code(s): I89.0 - LYMPHEDEMA, NOT ELSEWHERE CLASSIFIED Assessment/Plan Laboratory Tests 08/10/18 08/10/18 08/10/18 14:15 14:15 14:28 WBC 7.1 RBC 3.98 Hgb 9.8 L Hct 30.2 L MCV 75.9 L MCH 24.7 L MCHC 32.6 RDW 14.2 Plt Count 241 MPV 8.7 Absolute Neuts (auto) 4.8 Neutrophils % 68.2 D Lymphocytes % 17.4 D Monocytes % 12.8 H Eosinophils % 0.7 Basophils % 0.9 Nucleated RBC % 0 Sodium 136 Potassium 4.2 Chloride 104 Carbon Dioxide 20 L Anion Gap 12 BUN 111 H* D Creatinine 3.4 H Creat Clearance w eGFR 13.64 Random Glucose 242 H Calcium 8.9 Total Bilirubin 0.5 AST 37 ALT 52 Alkaline Phosphatase 164 H Creatine Kinase 46 Troponin I 0.40 H Total Protein 6.5 Albumin 3.0 L TSH < 0.01 L Free T4 5.47 H Active Medications Generic Name Dose Route Start Last Admin Trade Name Freq PRN Reason Stop Dose Admin Acetaminophen 650 mg 08/11/18 02:23 08/11/18 17:02 Tylenol - PO 650 mg Q6H PRN Administration PAIN LEVEL 1-5 Albuterol Sulfate 1 amp 08/10/18 22:00 08/11/18 18:02 Ventolin 0.083% Nebulizer Soln - NEB Not Given Q4HWA LALO Aspirin 81 mg 08/11/18 10:00 08/11/18 09:39 Asa - PO 81 mg DAILY LALO Administration Budesonide/Formoterol Fumarate 2 puff 08/10/18 22:00 08/11/18 09:56 Symbicort 160/4.5mcg - IH Not Given BID LALO Carvedilol 10 mg 08/11/18 10:00 08/11/18 09:40 Coreg Cr - PO 10 mg DAILY LALO Administration Clonazepam 0.5 mg 08/11/18 02:23 08/11/18 02:37 Klonopin - PO 0.5 mg Q6H PRN Administration ANXIETY Ezetimibe 10 mg 08/11/18 10:00 08/11/18 09:44 Zetia - PO 10 mg Q48H LALO Administration Heparin Sodium (Porcine) 5,000 unit 08/10/18 22:00 08/11/18 09:42 Heparin - SQ 5,000 unit BID LALO Administration Hydralazine HCl 37.5 mg 08/10/18 22:00 08/11/18 14:27 Apresoline - PO 37.5 mg TID LALO Administration Insulin Aspart 1 vial 08/10/18 22:00 08/11/18 17:02 Novolog Vial Sliding Scale - SQ 4 unit ACHS LALO Administration Protocol Insulin Detemir 30 units 08/10/18 22:00 08/11/18 00:15 Levemir Vial SQ Not Given HS LALO Latanoprost 1 drop 08/10/18 22:15 08/10/18 23:00 Xalatan 0.005% Eye Drops - OU 1 drop HS LALO Administration Mometasone Furoate 1 puff 08/10/18 22:00 08/11/18 09:44 Asmanex 220mcg - IH Not Given BID LALO Pantoprazole Sodium 40 mg 08/11/18 10:00 08/11/18 09:41 Protonix - PO 40 mg DAILY LALO Administration Prasugrel 10 mg 08/11/18 10:00 08/11/18 09:43 Effient - PO 10 mg DAILY LALO Administration Propylthiouracil 100 mg 08/10/18 22:00 08/11/18 14:33 Ptu - PO Not Given TID LALO Rosuvastatin Calcium 10 mg 08/10/18 22:00 08/10/18 23:00 Crestor - PO 10 mg HS LALO Administration Torsemide 60 mg 08/11/18 10:00 08/11/18 09:40 Demadex - PO 20 mg DAILY LALO Administration
[2018-08-10] MEDS: BUDESONIDE/FORMETEROL FUMARATE 160/4.5 mcg INHALER IH SCH (23:00)
[2018-08-10] MEDS: HEPARIN NA (PORCINE) 5,000 UNITS/ML 1ML VIAL SQ SCH (23:00)
[2018-08-10] MEDS: ALBUTEROL SO4 0.083% IH SOL 2.5 MG/3 ML VIAL.NEB. NEB SCH (23:00)
[2018-08-10] MEDS: LATANOPROST 0.005% OPHTH SOLN 2.5ML BOTTLE OU SCH (23:00)
[2018-08-10] MEDS: ROSUVASTATIN CA 10 MG TABLET (FP) PO SCH (23:00)
[2018-08-10] MEDS: hydrALAZINE HCL 25 MG TABLET (FP) PO SCH (23:00)
[2018-08-10] MEDS: PROPYLTHIOURACIL 50 MG TABLET (UD) PO SCH (23:00)
[2018-08-10] MEDS ORDERED: hydrALAZINE HCL 25 MG TABLET (FP) ONE (23:06)
[2018-08-10] MEDS ORDERED: HEPARIN NA (PORCINE) 5,000 UNITS/ML 1ML VIAL ONE (23:06)
[2018-08-10] MEDS ORDERED: INSULIN (NOVOLOG) ASPART 100 UNITS/ML 10ML VIAL ONE (23:08)
[2018-08-10] MEDS ORDERED: INSULIN (LEVEMIR) 100 UNITS/ML UNITS SQ ONE (23:08)
[2018-08-10] MEDS: MOMETASONE FUROATE 220 MCG/IH INHALER IH SCH (23:15)
[2018-08-11] MEDS: INSULIN (LEVEMIR) 100 UNITS/ML UNITS SQ SCH ×2 (00:15→21:36)
[2018-08-11] MEDS: INSULIN SLIDING SCALE (NOVOLOG) 1 VIAL SQ SCH ×5 (00:15→21:11)
[2018-08-11] MEDS ORDERED: clonazePAM 0.5 MG TABLET PO PRN (02:23)
[2018-08-11] MEDS: ACETAMINOPHEN 325 MG TABLET (FP) PO PRN ×3 (02:36→23:23)
[2018-08-11 04:42] VITALS: BMI 35.3
[2018-08-11] MEDS ORDERED: PT OWN MED DRAWER 7, Y5N ONE ×4 (06:15→21:00)
[2018-08-11] MEDS: hydrALAZINE HCL 25 MG TABLET (FP) PO SCH ×3 (06:28→21:12)
[2018-08-11] MEDS: PROPYLTHIOURACIL 50 MG TABLET (UD) PO SCH ×4 (06:29→21:12)
[2018-08-11] MEDS: ALBUTEROL SO4 0.083% IH SOL 2.5 MG/3 ML VIAL.NEB. NEB SCH ×5 (06:35→21:03)
[2018-08-11] MEDS ORDERED: INSULIN (NOVOLOG) ASPART 100 UNITS/ML 10ML VIAL ONE ×3 (06:54→22:11)
[2018-08-11] MEDS: ASPIRIN 81 MG CHEWABLE TABLETS PO SCH (09:39)
[2018-08-11] MEDS: CARVEDILOL PHOSPHATE CR 10 MG CAPSULE PO SCH (09:40)
[2018-08-11] MEDS: PANTOPRAZOLE 40 MG TABLET (FP) PO SCH (09:41)
[2018-08-11] MEDS: HEPARIN NA (PORCINE) 5,000 UNITS/ML 1ML VIAL SQ SCH ×2 (09:42→22:30)
[2018-08-11] MEDS: PRASUGREL HCL 10 MG TAB PO SCH (09:43)
[2018-08-11] MEDS: MOMETASONE FUROATE 220 MCG/IH INHALER IH SCH ×2 (09:44→21:13)
[2018-08-11] MEDS: EZETIMIBE 10 MG TABLET (FP) PO SCH (09:44)
[2018-08-11] MEDS: BUDESONIDE/FORMETEROL FUMARATE 160/4.5 mcg INHALER IH SCH ×2 (09:56→21:37)
[2018-08-11] MEDS ORDERED: TORSEMIDE 20 MG TABLET (FP) PO SCH (10:00)
--- NOTE | 2018-08-11 11:51 | CON.CARD ---
Cardiology Consult (text) - Consultation Consultation Note: Chief Complaint: le edema, general weakness History of Present Illness: 63 yo female hx hyperthyroidism with associated tachycardia, palpitations, unintentional wt loss, acute on chronic labile HTN with mult med intolerances, mildly decompensated diast chf, and new LE edema (out of proportion to the degree of CHF), p/w le edema, general weakness. Her hyperthyroid remains problematic and was supposed to have thyroid ablation procedure this week but postponed. No sob, cp palps loc pnd orthopnea. Sees dr johansen for cardio. PMH: CAD, [place], PCIs diast chf KATINA labile HTN DM HPL chronic anemia morbid obesity - Past Medical History Cardio/Vascular: Yes: AFIB, CAD, CHF, HTN, Hyperlipdemia, [place], Mitral Insufficiency, Pulmonary Hypertension Pulmonary: Yes: Sleep Apnea Renal/: Yes: Renal Failure ...: No Endocrine: Yes: Diabetes Mellitus - Past Surgical History Past Surgical History: Yes: Stent - Alcohol/Substance Use Hx Alcohol Use: No - Smoking History Smoking history: Never smoked Have you smoked in the past 12 months: No Aproximately how many cigarettes per day: 0 Home Medications - Allergies Allergies/Adverse Reactions: Allergies Allergy/AdvReac Type Severity Reaction Status Date / Time Penicillins Allergy Intermediate Hives Verified 08/10/18 12:22 Iodinated Contrast- Oral and Allergy Verified 08/10/18 12:22 IV Dye [Iodinated Contrast Media - IV Dye] tiotropium AdvReac Verified 08/10/18 12:22 [From Spiriva with HandiHaler] - Home Medications Home Medications Medication Instructions Recorded Aspirin [ASA -] 81 mg PO DAILY #1 tab 03/06/13 Prasugrel Hydrochloride [Effient -] 10 mg PO DAILY #0 tab 05/08/15 Albuterol 0.083% Nebulizer Bibiana 1 neb NEB QID 09/14/16 [Ventolin 0.083% Nebulizer Soln -] Insulin Glargine,Hum.rec.anlog 10 units SQ HS PRN 04/29/17 [Lantus (10mL VIAL) -] Insulin Lispro [Humalog] 100 unit SQ PRN 04/29/17 Budesonide/Formeterol Fumarate 2 inh PO BID 06/13/17 [SYMBICORT 160/4.5mcg -] clonazePAM [KlonoPIN] 0.5 mg PO QID PRN 06/13/17 Albuterol 0.083% Nebulizer Bibiana 1 amp NEB Q4H #1 amp 12/20/17 [Ventolin 0.083% Nebulizer Soln -] Ezetimibe [Zetia -] 10 mg PO Q48H 30 Days #30 tablet 12/20/17 Nitroglycerin Patch [Nitro-Dur 0.2 mg TD DAILY #30 patch.td24 12/20/17 Patch -] Rosuvastatin [Crestor -] 10 mg PO HS #30 tablet 04/15/18 Brimonidine Tartrate [Alphagan P 3 drop OU Q8H 05/27/18 0.1% -] Latanoprost 0.005% Eye Drops 1 drop OU DAILY 05/27/18 [Xalatan 0.005% Eye Drops -] Pantoprazole Sodium [Protonix -] 40 mg PO DAILY 05/27/18 Metoprolol Succinate [Toprol Xl -] 50 mg PO DAILY #30 tablet 06/04/18 Mometasone Furoate [Asmanex 220Mcg 1 puff IH BID #1 inhaler 06/04/18 -] Propylthiouracil 100 mg PO TID #90 tablet 06/04/18 Torsemide 60 mg PO DAILY #90 tablet 06/04/18 hydrALAZINE HCL [Apresoline -] 37.5 mg PO TID #135 tablet 06/04/18 Acetaminophen [Tylenol] 650 mg PO Q4H PRN 08/11/18 Carvedilol Phosphate [Coreg Cr] 10 mg PO DAILY 08/11/18 Ferrous Sulfate [Feosol] 28 mg PO BID 08/11/18 Propylthiouracil 50 mg PO DAILY 08/11/18 Torsemide 20 mg PO DAILY 08/11/18 Family Disease History - Family Disease History Family History: Denies (no known cmp) Review of Systems - Review of Systems Constitutional: denies: Chills, Fever Eyes: denies: Eye Pain HENT: denies: Nasal Congestion Neck: denies: Stiffness Cardiovascular: reports: Edema Respiratory: reports: Wheezing. denies: Orthopnea, PND Gastrointestinal: denies: Diarrhea, Rectal Bleeding Genitourinary: denies: Burning, Hematuria Musculoskeletal: denies: Muscle Pain Integumentary: denies: Rash Neurological: denies: Numbness, Seizure, Syncope Endocrine: denies: Excessive Sweating Hematology/Lymphatic: denies: Excessive Bleeding Vital Signs: Vital Signs Period Temp Pulse Resp BP Sys/Shankar Pulse Ox Last 24 Hr 89 F-98.6 F 89-120 17-20 132-149/67-77 96-99 Constitutional: Yes: Well Nourished, No Distress Eyes: No: Sclera Icterus HENT: No: Nasal Congestion Neck: No: Decreased ROM Respiratory: Yes: CTA Bilaterally, Wheezes. No: Accessory Muscle Use, Rales Gastrointestinal: Yes: Normal Bowel Sounds. No: Distention, Hepatomegaly, Palpable Mass, Tenderness Cardiovascular: Yes: Regular Rate and Rhythm JVD: Yes Carotid Bruit: No PMI: Non-Displaced Heart Sounds: Yes: S1, S2. No: Gallop Murmur: No: Systolic Murmur, Diastolic Murmur Musculoskeletal: Yes: Other (No kyphosis) Extremities: No: Cool, Cyanosis Edema: Yes 1+ bilat Peripheral Pulses: 2+ Left Carotid, 2+ Right Carotid, 2+ Left Doralis Pedis, 2+ Right Dorsalis Pedis Integumentary: No: Jaundice Neurological: Yes: Alert, Oriented (x3) Psychiatric: No: Agitated - Other Data Labs, Other Data: Laboratory Last Values WBC 7.1 K/mm3 (4.0-10.0) 08/10/18 14:28 RBC 3.98 M/mm3 (3.60-5.2) 08/10/18 14:28 Hgb 9.8 GM/dL (10.7-15.3) L 08/10/18 14:28 Hct 30.2 % (32.4-45.2) L 08/10/18 14:28 MCV 75.9 fl (80-96) L 08/10/18 14:28 MCH 24.7 pg (25.7-33.7) L 08/10/18 14:28 MCHC 32.6 g/dl (32.0-36.0) 08/10/18 14:28 RDW 14.2 % (11.6-15.6) 08/10/18 14:28 Plt Count 241 K/MM3 (134-434) 08/10/18 14:28 MPV 8.7 fl (7.5-11.1) 08/10/18 14:28 Absolute Neuts (auto) 4.8 K/mm3 (1.5-8.0) 08/10/18 14:28 Neutrophils % 68.2 % (42.8-82.8) D 08/10/18 14:28 Lymphocytes % 17.4 % (8-40) D 08/10/18 14:28 Monocytes % 12.8 % (3.8-10.2) H 08/10/18 14:28 Eosinophils % 0.7 % (0-4.5) 08/10/18 14:28 Basophils % 0.9 % (0-2.0) 08/10/18 14:28 Nucleated RBC % 0 % (0-0) 08/10/18 14:28 Sodium 136 mmol/L (136-145) 08/10/18 14:15 Potassium 4.2 mmol/L (3.5-5.1) 08/10/18 14:15 Chloride 104 mmol/L (98-107) 08/10/18 14:15 Carbon Dioxide 20 mmol/L (21-32) L 08/10/18 14:15 Anion Gap 12 MMOL/L (8-16) 08/10/18 14:15 BUN 111 mg/dL (7-18) H* D 08/10/18 14:15 Creatinine 3.4 mg/dL (0.55-1.02) H 08/10/18 14:15 Creat Clearance w eGFR 13.64 (>60) 08/10/18 14:15 POC Glucometer 155 UNITS (80-120) 08/11/18 06:27 Random Glucose 242 mg/dL (74-106) H 08/10/18 14:15 Calcium 8.9 mg/dL (8.5-10.1) 08/10/18 14:15 Total Bilirubin 0.5 mg/dL (0.2-1.0) 08/10/18 14:15 AST 37 U/L (15-37) 08/10/18 14:15 ALT 52 U/L (12-78) 08/10/18 14:15 Alkaline Phosphatase 164 U/L (45-117) H 08/10/18 14:15 Creatine Kinase 46 IU/L (26-192) 08/10/18 14:15 Troponin I 0.40 ng/ml (0.00-0.05) H 08/10/18 14:15 Total Protein 6.5 g/dl (6.4-8.2) 08/10/18 14:15 Albumin 3.0 g/dl (3.4-5.0) L 08/10/18 14:15 TSH < 0.01 uIU/ml (0.358-3.74) L 08/10/18 14:15 Free T4 5.47 ng/dl (0.76-1.46) H 08/10/18 14:15 ECG--sinus tach, nl intervals, nonspecific ST-T changes [facility] 2014: unchanged 70-80% distal RCA lesion. patent mLAD stent. 80-90% pLCX-- Prom[facility]AREN Echo 12/2016: TDS. nl LV size/EF. mild LVH. grade 2 d.d., hi E/e' = high LAP. nl RV. mild LAE. mild-mod MR, mod TR. mild pHTN (46 mmHg). tele: sinus tachy 110s a/p: chronic diast CHF: -exacerbated recently by uncontrolled hyperthyroidism with tachycardia and htn. discharged 05/2018 with dry wt 212 lbs, here now with worse le edema but wt about the same -likely le edema 2/2 venous insuff/hyperthyroid and not from chf -bun/cr up from baseline so would not aggressively diurese at this time. Cont home torsemide. paroxysmal atrial tach, sinus tach, palpitations, thyrotoxicosis: -remote h/o intolerance to metoprolol, atenolol, ? others (pt cannot recall s.e.s then) -on coreg CR long time, was changed to inderal and toprol but pt prefers coreg, so resumed labile HTN: -prior reasonable control, lost of late due to hyperthyroidism -mult med intolerances in past -cont current meds CAD, prior NSTEMI/PCI: -non-ischemic ECG here (ST-Ts likely rate-related). trop in intermediate range, nl ck--consistent with chronic elevation from pt with known chronically elevated filling pressures, ? contribution from tachycardia as well -cont home DAPT (aspirin/effient), statin with zetia, bb OBI on CKD: -baseline creat runs 2.5-2.8 -bun/cr up here, monitor for now, may need to hold torsemide if worsening HPL: -cont current meds
--- NOTE | 2018-08-11 18:26 | CONSULT ---
Consult Consult Specialty:: endocrine Referred by:: dr.hameedi tsai Reason for Consultation:: hyperthyroidism - History of Present Illness Chief Complaint: palpitation History of Present Illness: 63 yo F w/ a hx of recent thyrotoxicosis in May, chronic diastolic heart failure, type 2 DM, HTN, hyperlipidemia, CAD, CABG, asthma, KATINA, anxiety, pulm HTN, is here with a week of what she says is new onset bilateral leg swelling. She reports that 1 week ago her legs were not swollen. She is antithyroid meds as PTU only 100mg daily for liver problem dose was decreased. she did not tolerate methimazole,she had apt for I131 ablation and has to reschedule apt, since recent respiratory decompensation . - Past Medical History Cardio/Vascular: Yes: AFIB, CAD, CHF, HTN, Hyperlipdemia, [place], Mitral Insufficiency, Pulmonary Hypertension Pulmonary: Yes: Sleep Apnea Renal/: Yes: Renal Failure ...: No Endocrine: Yes: Diabetes Mellitus - Past Surgical History Past Surgical History: Yes: Stent - Alcohol/Substance Use Hx Alcohol Use: No - Smoking History Smoking history: Never smoked Have you smoked in the past 12 months: No Aproximately how many cigarettes per day: 0 Home Medications - Allergies Allergies/Adverse Reactions: Allergies Allergy/AdvReac Type Severity Reaction Status Date / Time Penicillins Allergy Intermediate Hives Verified 08/10/18 12:22 Iodinated Contrast- Oral and Allergy Verified 08/10/18 12:22 IV Dye [Iodinated Contrast Media - IV Dye] tiotropium AdvReac Verified 08/10/18 12:22 [From Spiriva with HandiHaler] - Home Medications Home Medications: Ambulatory Orders Aspirin [ASA -] 81 mg PO DAILY #1 tab 03/06/13 Prasugrel Hydrochloride [Effient -] 10 mg PO DAILY #0 tab 05/08/15 Albuterol 0.083% Nebulizer Bibiana [Ventolin 0.083% Nebulizer Soln -] 1 neb NEB QID 09/14/16 Insulin Glargine,Hum.rec.anlog [Lantus (10mL VIAL) -] 10 units SQ HS PRN Insulin Lispro [Humalog] 100 unit SQ PRN 04/29/17 Budesonide/Formeterol Fumarate [SYMBICORT 160/4.5mcg -] 2 inh PO BID 06/13/17 clonazePAM [KlonoPIN] 0.5 mg PO QID PRN 06/13/17 Albuterol 0.083% Nebulizer Bibiana [Ventolin 0.083% Nebulizer Soln -] 1 amp NEB Q4H #1 amp 12/20/17 Ezetimibe [Zetia -] 10 mg PO Q48H 30 Days #30 tablet 12/20/17 Nitroglycerin Patch [Nitro-Dur Patch -] 0.2 mg TD DAILY #30 patch.td24 12/20/17 Rosuvastatin [Crestor -] 10 mg PO HS #30 tablet 04/15/18 Brimonidine Tartrate [Alphagan P 0.1% -] 3 drop OU Q8H 05/27/18 Latanoprost 0.005% Eye Drops [Xalatan 0.005% Eye Drops -] 1 drop OU DAILY Pantoprazole Sodium [Protonix -] 40 mg PO DAILY 05/27/18 Metoprolol Succinate [Toprol Xl -] 50 mg PO DAILY #30 tablet 06/04/18 Mometasone Furoate [Asmanex 220Mcg -] 1 puff IH BID #1 inhaler 06/04/18 Propylthiouracil 100 mg PO TID #90 tablet 06/04/18 Torsemide 60 mg PO DAILY #90 tablet 06/04/18 hydrALAZINE HCL [Apresoline -] 37.5 mg PO TID #135 tablet 06/04/18 Acetaminophen [Tylenol] 650 mg PO Q4H PRN 08/11/18 Carvedilol Phosphate [Coreg Cr] 10 mg PO DAILY 08/11/18 Ferrous Sulfate [Feosol] 28 mg PO BID 08/11/18 Propylthiouracil 50 mg PO DAILY 08/11/18 Torsemide 20 mg PO DAILY 08/11/18 Review of Systems - Review of Systems Constitutional: reports: Malaise, Weakness Eyes: reports: Blurred Vision HENT: reports: No Symptoms Neck: reports: No Symptoms Cardiovascular: reports: Edema, Palpitations, Shortness of Breath Respiratory: reports: Exercise Intolerance, SOB, SOB on Exertion Gastrointestinal: reports: Bloating, Constipation, Nausea Genitourinary: reports: No Symptoms Musculoskeletal: reports: Joint Pain, Joint Swelling, Muscle Pain, Muscle Cramps , Muscle Weakness Integumentary: reports: No Symptoms Neurological: reports: Dizziness, Numbness, Weakness Endocrine: reports: Unexplained Weight Gain Physical Exam Vital Signs: Vital Signs Temperature 97.6 F 08/11/18 16:31 Pulse Rate 118 H 08/11/18 16:31 Respiratory Rate 20 08/11/18 16:31 Blood Pressure 132/62 08/11/18 16:31 O2 Sat by Pulse Oximetry (%) 98 08/11/18 09:00 Constitutional: Yes: Anxious Eyes: Yes: EOM Intact HENT: Yes: Normocephalic Neck: Yes: Thyromegaly Cardiovascular: Yes: Tachycardia, S3 Respiratory: Yes: Accessory Muscle Use, On Nasal O2, SOB, Tachypnea Gastrointestinal: Yes: Abdomen, Obese ...Rectal Exam: Yes: Deferred Renal/: Yes: WNL Musculoskeletal: Yes: Muscle Weakness Extremities: Yes: Delayed Capillary Refill Edema: Yes Edema: LLE: 2+, RLE: 2+ Neurological: Yes: Alert, Oriented, Weakness Labs: CBC, BMP 08/10/18 14:28 08/10/18 14:15 Problem List - Problems (1) Thyrotoxicosis Code(s): E05.90 - THYROTOXICOSIS, UNSP WITHOUT THYROTOXIC CRISIS OR STORM (2) Acute exacerbation of asthma with allergic rhinitis Code(s): J45.901 - UNSPECIFIED ASTHMA WITH (ACUTE) EXACERBATION (3) Acute on chronic heart failure Code(s): I50.9 - HEART FAILURE, UNSPECIFIED Qualifiers: Heart failure type: diastolic Qualified Code(s): I50.33 - Acute on chronic diastolic (congestive) heart failure (4) Asthma exacerbation Code(s): J45.901 - UNSPECIFIED ASTHMA WITH (ACUTE) EXACERBATION Qualifiers: Asthma severity: unspecified severity Asthma persistence: unspecified Qualified Code(s): J45.901 - Unspecified asthma with (acute) exacerbation (5) CAD (coronary artery disease) Code(s): I25.10 - ATHSCL HEART DISEASE OF [place] CORONARY ARTERY W/O ANG PCTRS Qualifiers: Coronary Disease-Associated Artery/Lesion type: ruby artery [place] vs. transplanted heart: ruby heart Associated angina: without angina Qualified Code(s): I25.10 - Atherosclerotic heart disease of [place] coronary artery without angina pectoris (6) CKD (chronic kidney disease) Code(s): N18.9 - CHRONIC KIDNEY DISEASE, UNSPECIFIED Assessment/Plan Current Active Problems Thyrotoxicosis (Acute) chf,decompensated htn ashd morbid obesity anxiety hyperlipidemia dm iddm hyperglycemia cki nephropathy Laboratory Results - last 24 hr 08/10/18 08/11/18 08/11/18 23:18 06:27 11:48 POC Glucometer 284.71095 155 126 08/11/18 16:54 POC Glucometer 166 Laboratory Tests 08/10/18 08/10/18 08/10/18 14:15 14:15 14:28 WBC 7.1 RBC 3.98 Hgb 9.8 L Hct 30.2 L MCV 75.9 L MCH 24.7 L MCHC 32.6 RDW 14.2 Plt Count 241 MPV 8.7 Absolute Neuts (auto) 4.8 Neutrophils % 68.2 D Lymphocytes % 17.4 D Sodium 136 Potassium 4.2 Chloride 104 Carbon Dioxide 20 L Anion Gap 12 BUN 111 H* D Creatinine 3.4 H Creat Clearance w eGFR 13.64 Random Glucose 242 H Calcium 8.9 Total Bilirubin 0.5 AST 37 ALT 52 Alkaline Phosphatase 164 H Creatine Kinase 46 Troponin I 0.40 H TSH < 0.01 L Free T4 5.47 H plan: bgm qid novolog insulin doses continue ptu 100mg bid i131 as outpatient levemir /novolog insulin as ordered
--- NOTE | 2018-08-11 18:28 | PN ---
Progress Note, Physician - Current Medication List Current Medications: Active Medications Acetaminophen (Tylenol -) 650 mg PO Q6H PRN PRN Reason: PAIN LEVEL 1-5 Last Admin: 08/11/18 17:02 Dose: 650 mg Albuterol Sulfate (Ventolin 0.083% Nebulizer Soln -) 1 amp NEB Q4HWA [facility] Last Admin: 08/11/18 18:02 Dose: Not Given Aspirin (Asa -) 81 mg PO DAILY [facility] Last Admin: 08/11/18 09:39 Dose: 81 mg Budesonide/Formoterol Fumarate (Symbicort 160/4.5mcg -) 2 puff IH BID [facility] Last Admin: 08/11/18 09:56 Dose: Not Given Carvedilol (Coreg Cr -) 10 mg PO DAILY [facility] Last Admin: 08/11/18 09:40 Dose: 10 mg Clonazepam (Klonopin -) 0.5 mg PO Q6H PRN PRN Reason: ANXIETY Last Admin: 08/11/18 02:37 Dose: 0.5 mg Ezetimibe (Zetia -) 10 mg PO Q48H [facility] Last Admin: 08/11/18 09:44 Dose: 10 mg Heparin Sodium (Porcine) (Heparin -) 5,000 unit SQ BID [facility] Last Admin: 08/11/18 09:42 Dose: 5,000 unit Hydralazine HCl (Apresoline -) 37.5 mg PO TID [facility] Last Admin: 08/11/18 14:27 Dose: 37.5 mg Insulin Aspart (Novolog Vial Sliding Scale -) 1 vial SQ [facility]; Protocol Last Admin: 08/11/18 17:02 Dose: 4 unit Insulin Detemir (Levemir Vial) 30 units SQ HS [facility] Last Admin: 08/11/18 00:15 Dose: Not Given Latanoprost (Xalatan 0.005% Eye Drops -) 1 drop OU HS [facility] Last Admin: 08/10/18 23:00 Dose: 1 drop Mometasone Furoate (Asmanex 220mcg -) 1 puff IH BID [facility] Last Admin: 08/11/18 09:44 Dose: Not Given Pantoprazole Sodium (Protonix -) 40 mg PO DAILY [facility] Last Admin: 08/11/18 09:41 Dose: 40 mg Prasugrel (Effient -) 10 mg PO DAILY [facility] Last Admin: 08/11/18 09:43 Dose: 10 mg Propylthiouracil (Ptu -) 100 mg PO TID [facility] Last Admin: 08/11/18 14:33 Dose: Not Given Rosuvastatin Calcium (Crestor -) 10 mg PO HS [facility] Last Admin: 08/10/18 23:00 Dose: 10 mg Torsemide (Demadex -) 60 mg PO DAILY [facility] Last Admin: 08/11/18 09:40 Dose: 20 mg - Objective Vital Signs: Vital Signs Temperature 97.6 F 08/11/18 16:31 Pulse Rate 118 H 08/11/18 16:31 Respiratory Rate 20 08/11/18 16:31 Blood Pressure 132/62 08/11/18 16:31 O2 Sat by Pulse Oximetry (%) 98 08/11/18 09:00 Constitutional: Yes: Calm HENT: Yes: Atraumatic Neck: Yes: Supple Cardiovascular: Yes: Regular Rate and Rhythm Respiratory: Yes: CTA Bilaterally Gastrointestinal: Yes: Normal Bowel Sounds Extremities: Yes: WNL Edema: Yes Edema: LLE: 2+, RLE: 2+ Peripheral Pulses WNL: Yes Neurological: Yes: Alert, Oriented Labs: CBC, BMP 08/10/18 14:28 08/10/18 14:15 Problem List - Problems (1) Thyrotoxicosis Assessment/Plan: pt on meds was supposed to go for thyroid ablation endocrine on board Code(s): E05.90 - THYROTOXICOSIS, UNSP WITHOUT THYROTOXIC CRISIS OR STORM (2) HLD (hyperlipidemia) Code(s): E78.5 - HYPERLIPIDEMIA, UNSPECIFIED Qualifiers: (3) HTN (hypertension) Assessment/Plan: on meds stable Code(s): I10 - ESSENTIAL (PRIMARY) HYPERTENSION Qualifiers: (4) IDDM (insulin dependent diabetes mellitus) Code(s): E11.9 - TYPE 2 DIABETES MELLITUS WITHOUT COMPLICATIONS; Z79.4 - SNF (CURRENT) USE OF INSULIN
[2018-08-11] MEDS: ROSUVASTATIN CA 10 MG TABLET (FP) PO SCH (21:14)
[2018-08-11] MEDS: clonazePAM 0.5 MG TABLET PO PRN (21:20)
[2018-08-11] MEDS: LATANOPROST 0.005% OPHTH SOLN 2.5ML BOTTLE OU SCH (21:37)
[2018-08-12] MEDS ORDERED: OXYBUTYNIN CHLORIDE 5 MG TABLET PO ONE (01:52)
[2018-08-12] MEDS ORDERED: oxyCODONE HCL 5 MG TABLET ONE (01:53)
[2018-08-12] MEDS ORDERED: oxyCODONE HCL 5 MG TABLET PO ONE (02:06)
[2018-08-12] MEDS: hydrALAZINE HCL 25 MG TABLET (FP) PO SCH ×3 (05:30→21:44)
[2018-08-12] MEDS: ALBUTEROL SO4 0.083% IH SOL 2.5 MG/3 ML VIAL.NEB. NEB SCH ×5 (05:59→22:34)
[2018-08-12] MEDS: INSULIN SLIDING SCALE (NOVOLOG) 1 VIAL SQ SCH ×4 (06:06→22:34)
[2018-08-12 06:26] LABS: BASO % 0.5 % (0-2.0); EOS % 3.4 % (0-4.5); HEMATOCRIT 27.3 % (32.4-45.2); HEMOGLOBIN 8.8 GM/dL (10.7-15.3); LYMPH % 19.7 % (8-40); MCH 24.1 pg (25.7-33.7); MCHC 32.1 g/dl (32.0-36.0); MEAN CELL VOLUME 75.2 fl (80-96); MEAN PLT VOLUME 8.5 fl (7.5-11.1); MONO % 15.6 % (3.8-10.2); NEUT % 60.8 % (42.8-82.8); PLATELET COUNT 193 K/MM3 (134-434); RBC 3.63 M/mm3 (3.60-5.2); RDW 13.8 % (11.6-15.6); WHITE BLOOD COUNT 5.5 K/mm3 (4.0-10.0)
[2018-08-12 06:44] LABS: ALBUMIN 2.6 g/dl (3.4-5.0); ANION GAP 12 MMOL/L (8-16); CALCIUM 8.5 mg/dL (8.5-10.1); CHLORIDE 107 mmol/L (98-107); CO2 22 mmol/L (21-32); GLUCOSE,RANDOM 106 mg/dL (74-106); POTASSIUM 4.1 mmol/L (3.5-5.1); SODIUM 141 mmol/L (136-145)
[2018-08-12 06:49] LABS: ALK PHOS 138 U/L (45-117); BILIRUBIN,TOTAL 0.5 mg/dL (0.2-1.0); CREATININE 3.2 mg/dL (0.55-1.3); SGOT/AST 28 U/L (15-37); SGPT/ALT 40 U/L (13-61); TOT PROT 5.8 g/dl (6.4-8.2)
[2018-08-12 06:55] LABS: BLOOD UREA NITROGEN 113 mg/dL (7-18)
[2018-08-12] MEDS ORDERED: PT OWN MED DRAWER 7, Y5N ONE ×3 (09:05→19:32)
[2018-08-12] MEDS: BUDESONIDE/FORMETEROL FUMARATE 160/4.5 mcg INHALER IH SCH (09:37)
[2018-08-12] MEDS: MOMETASONE FUROATE 220 MCG/IH INHALER IH SCH (09:37)
[2018-08-12] MEDS: ASPIRIN 81 MG CHEWABLE TABLETS PO SCH (09:43)
[2018-08-12] MEDS: PANTOPRAZOLE 40 MG TABLET (FP) PO SCH (09:43)
[2018-08-12] MEDS: PROPYLTHIOURACIL 50 MG TABLET (UD) PO SCH ×2 (09:43→22:41)
[2018-08-12] MEDS: CARVEDILOL PHOSPHATE CR 10 MG CAPSULE PO SCH (09:44)
[2018-08-12] MEDS: HEPARIN NA (PORCINE) 5,000 UNITS/ML 1ML VIAL SQ SCH ×2 (09:45→21:47)
[2018-08-12] MEDS: PRASUGREL HCL 10 MG TAB PO SCH (09:46)
[2018-08-12] MEDS: TORSEMIDE 20 MG TABLET (FP) PO SCH (09:50)
--- NOTE | 2018-08-12 11:01 | PN ---
Progress Note (short form) - Note Progress Note: s: no cp sob palps dizzy o: Vital Signs Period Temp Pulse Resp BP Sys/Shankar Pulse Ox Last 24 Hr 97.6 F-97.8 F 116-122 18-20 124-132/61-69 97-97 Constitutional: Yes: Well Nourished, No Distress Eyes: No: Sclera Icterus Respiratory: Yes: CTA Bilaterally, Wheezes. No: Accessory Muscle Use, Rales Gastrointestinal: Yes: Normal Bowel Sounds. No: Distention, Hepatomegaly, Palpable Mass, Tenderness Cardiovascular: Yes: Regular Rate and Rhythm JVD: Yes Heart Sounds: Yes: S1, S2. No: Gallop Murmur: No: Systolic Murmur, Diastolic Murmur Extremities: No: Cool, Cyanosis Edema: Yes 1+ bilat Integumentary: No: Jaundice Neurological: Yes: Alert, Oriented (x3) Psychiatric: No: Agitated Current Medications Generic Name Dose Route Start Last Admin Trade Name Freq PRN Reason Stop Dose Admin Acetaminophen 650 mg 08/11/18 02:23 08/11/18 23:23 Tylenol - PO 650 mg Q6H PRN Administration PAIN LEVEL 1-5 Albuterol Sulfate 1 amp 08/10/18 22:00 08/12/18 09:58 Ventolin 0.083% Nebulizer Soln - NEB Not Given Q4HWA [facility] Aspirin 81 mg 08/11/18 10:00 08/12/18 09:43 Asa - PO 81 mg DAILY [facility] Administration Budesonide/Formoterol Fumarate 2 puff 08/10/18 22:00 08/12/18 09:37 Symbicort 160/4.5mcg - IH Not Given BID [facility] Carvedilol 20 mg 08/12/18 10:57 Coreg Cr - PO DAILY [facility] Carvedilol 10 mg 08/12/18 10:57 Coreg Cr - PO 08/12/18 10:58 ONCE ONE Clonazepam 1 mg 08/11/18 18:31 08/11/18 21:20 Klonopin - PO 1 mg Q8H PRN Administration ANXIETY Ezetimibe 10 mg 08/11/18 10:00 08/11/18 09:44 Zetia - PO 10 mg Q48H [facility] Administration Heparin Sodium (Porcine) 5,000 unit 08/10/18 22:00 08/12/18 09:45 Heparin - SQ 5,000 unit BID [facility] Administration Hydralazine HCl 37.5 mg 08/10/18 22:00 08/12/18 05:30 Apresoline - PO 37.5 mg TID [facility] Administration Insulin Aspart 1 vial 08/10/18 22:00 08/12/18 06:06 Novolog Vial Sliding Scale - SQ Not Given ACHS [facility] Protocol Insulin Detemir 30 units 08/10/18 22:00 08/11/18 21:36 Levemir Vial SQ 30 units HS [facility] Administration Latanoprost 1 drop 08/10/18 22:15 08/11/18 21:37 Xalatan 0.005% Eye Drops - OU 1 drop HS [facility] Administration Mometasone Furoate 1 puff 08/10/18 22:00 08/12/18 09:37 Asmanex 220mcg - IH Not Given BID [facility] Nitroglycerin 0.2 mg 08/12/18 11:00 Nitro-Dur Patch - TD DAILY [facility] Pantoprazole Sodium 40 mg 08/11/18 10:00 08/12/18 09:43 Protonix - PO Not Given DAILY [facility] Prasugrel 10 mg 08/11/18 10:00 08/12/18 09:46 Effient - PO 10 mg DAILY [facility] Administration Propylthiouracil 100 mg 08/11/18 22:00 08/12/18 09:43 Ptu - PO 100 mg BID [facility] Administration Rosuvastatin Calcium 10 mg 08/10/18 22:00 08/11/18 21:14 Crestor - PO 10 mg HS [facility] Administration Torsemide 40 mg 08/12/18 10:45 08/12/18 09:50 Demadex - PO 40 mg DAILY [facility] Administration CBC, BMP 08/12/18 06:00 08/12/18 06:00 ECG--sinus tach, nl intervals, nonspecific ST-T changes [facility] 2014: unchanged 70-80% distal RCA lesion. patent mLAD stent. 80-90% pLCX-- Promus KAREN Echo 12/2016: TDS. nl LV size/EF. mild LVH. grade 2 d.d., hi E/e' = high LAP. nl RV. mild LAE. mild-mod MR, mod TR. mild pHTN (46 mmHg). tele: sr, a-tach 120s a/p: chronic diast CHF: -exacerbated recently by uncontrolled hyperthyroidism with tachycardia and htn. discharged 05/2018 with dry wt 212 lbs, here now with worse le edema but wt about the same -likely le edema 2/2 venous insuff/hyperthyroid and not from chf -bun/cr up from baseline so would not aggressively diurese at this time. Cont home torsemide (was on 40 po qd). paroxysmal atrial tach, sinus tach, palpitations, thyrotoxicosis: -remote h/o intolerance to metoprolol, atenolol, ? others (pt cannot recall s.e.s then) -on coreg CR long time, was changed to inderal and toprol but pt prefers coreg, so resumed. will increase to coreg cr 20 qd for better rate control. labile HTN: -prior reasonable control, lost of late due to hyperthyroidism -mult med intolerances in past -cont current meds CAD, prior NSTEMI/PCI: -non-ischemic ECG here (ST-Ts likely rate-related). trop in intermediate range, nl ck--consistent with chronic elevation from pt with known chronically elevated filling pressures, ? contribution from tachycardia as well -cont home DAPT (aspirin/effient), statin with zetia, bb, nitropatch OBI on CKD: -baseline creat runs 2.5-2.8 -bun/cr up here, monitor for now, may need to hold torsemide if worsening HPL: -cont current meds
[2018-08-12] MEDS ORDERED: INSULIN (NOVOLOG) ASPART 100 UNITS/ML 10ML VIAL ONE (11:48)
[2018-08-12] MEDS ORDERED: CARVEDILOL PHOSPHATE CR 10 MG CAPSULE PO ONE (12:00)
[2018-08-12] MEDS: NITROGLYCERIN 0.2 MG/HOUR TD PATCH TD SCH (13:20)
[2018-08-12] MEDS: FERROUS SO4 325 MG TABLET (FP) PO SCH (17:22)
--- NOTE | 2018-08-12 17:41 | PN ---
Progress Note, Physician - Current Medication List Current Medications: Active Medications Acetaminophen (Tylenol -) 650 mg PO Q6H PRN PRN Reason: PAIN LEVEL 1-5 Last Admin: 08/11/18 23:23 Dose: 650 mg Albuterol Sulfate (Ventolin 0.083% Nebulizer Soln -) 1 amp NEB Q4HWA [facility] Last Admin: 08/12/18 14:15 Dose: Not Given Aspirin (Asa -) 81 mg PO DAILY [facility] Last Admin: 08/12/18 09:43 Dose: 81 mg Carvedilol (Coreg Cr -) 20 mg PO DAILY [facility] Clonazepam (Klonopin -) 1 mg PO Q8H PRN PRN Reason: ANXIETY Last Admin: 08/11/18 21:20 Dose: 1 mg Ezetimibe (Zetia -) 10 mg PO Q48H [facility] Last Admin: 08/11/18 09:44 Dose: 10 mg Ferrous Sulfate (Feosol -) 325 mg PO DAILY@1730 [facility] Last Admin: 08/12/18 17:22 Dose: 325 mg Heparin Sodium (Porcine) (Heparin -) 5,000 unit SQ BID [facility] Last Admin: 08/12/18 09:45 Dose: 5,000 unit Hydralazine HCl (Apresoline -) 37.5 mg PO TID [facility] Last Admin: 08/12/18 13:21 Dose: 37.5 mg Insulin Aspart (Novolog Vial Sliding Scale -) 1 vial SQ [facility]; Protocol Last Admin: 08/12/18 17:21 Dose: 2 unit Insulin Detemir (Levemir Vial) 15 units SQ HS [facility] Latanoprost (Xalatan 0.005% Eye Drops -) 1 drop OU HS [facility] Last Admin: 08/11/18 21:37 Dose: 1 drop Nitroglycerin (Nitro-Dur Patch -) 0.2 mg TD DAILY [facility] Last Admin: 08/12/18 13:20 Dose: 0.2 mg Oxycodone HCl (Roxicodone -) 5 mg PO Q8H PRN PRN Reason: PAIN LEVEL 1-5 Prasugrel (Effient -) 10 mg PO DAILY [facility] Last Admin: 08/12/18 09:46 Dose: 10 mg Propylthiouracil (Ptu -) 100 mg PO BID [facility] Last Admin: 08/12/18 09:43 Dose: 100 mg Rosuvastatin Calcium (Crestor -) 10 mg PO HS [facility] Last Admin: 08/11/18 21:14 Dose: 10 mg Torsemide (Demadex -) 40 mg PO DAILY [facility] Last Admin: 08/12/18 09:50 Dose: 40 mg - Objective Vital Signs: Vital Signs Temperature 97.5 F L 08/12/18 15:00 Pulse Rate 67 08/12/18 15:00 Respiratory Rate 18 08/12/18 15:00 Blood Pressure 118/80 08/12/18 15:00 O2 Sat by Pulse Oximetry (%) 97 08/12/18 09:00 Constitutional: Yes: No Distress HENT: Yes: Atraumatic Neck: Yes: Supple Cardiovascular: Yes: Regular Rate and Rhythm Respiratory: Yes: CTA Bilaterally Gastrointestinal: Yes: Normal Bowel Sounds Extremities: Yes: WNL Edema: Yes Edema: LLE: 3+, RLE: 3+ Peripheral Pulses WNL: Yes Neurological: Yes: Alert, Oriented Labs: CBC, BMP 08/12/18 06:00 08/12/18 06:00 Problem List - Problems (1) Thyrotoxicosis Assessment/Plan: pt on meds was supposed to go for thyroid ablation endocrine on board Code(s): E05.90 - THYROTOXICOSIS, UNSP WITHOUT THYROTOXIC CRISIS OR STORM (2) HLD (hyperlipidemia) Code(s): E78.5 - HYPERLIPIDEMIA, UNSPECIFIED Qualifiers: (3) HTN (hypertension) Assessment/Plan: on meds stable Code(s): I10 - ESSENTIAL (PRIMARY) HYPERTENSION Qualifiers: (4) IDDM (insulin dependent diabetes mellitus) Code(s): E11.9 - TYPE 2 DIABETES MELLITUS WITHOUT COMPLICATIONS; 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
[2018-08-12] MEDS: oxyCODONE HCL 5 MG TABLET PO PRN (20:20)
--- NOTE | 2018-08-12 20:40 | PN ---
Progress Note (short form) - Note Progress Note: pt's torsemide was increased from 40 qd to 60 qd 06/15, then briefly to 80 qd but bun went up (50s to 60s) and creat omar 2.9 to 3.1 so went back down to 60 qd. she has had persistent JVD for past few months, with leg swelling stable but significant as well. saw me 07/20--JVD resolved for first time in past few monthsm wt was 207 in office then. pt informed me that dr lynn had rx'd metolazone 2.5mg qd which she had taken in may for approx 4 wks then self-d/c'd it. creatinine remained stable trend on weekly labs (3.1). told her to continue torsemide 60 qd without metolazone, as doing, at that time. was on metoprolol succ 50 qd
[2018-08-12] MEDS: ROSUVASTATIN CA 10 MG TABLET (FP) PO SCH (21:46)
[2018-08-12] MEDS: INSULIN (LEVEMIR) 100 UNITS/ML UNITS SQ SCH (22:33)
[2018-08-12] MEDS: LATANOPROST 0.005% OPHTH SOLN 2.5ML BOTTLE OU SCH (22:40)
[2018-08-13] MEDS: ACETAMINOPHEN 325 MG TABLET (FP) PO PRN (01:29)
[2018-08-13] MEDS: hydrALAZINE HCL 25 MG TABLET (FP) PO SCH ×3 (05:22→21:27)
[2018-08-13] MEDS: oxyCODONE HCL 5 MG TABLET PO PRN (05:23)
[2018-08-13] MEDS: INSULIN SLIDING SCALE (NOVOLOG) 1 VIAL SQ SCH ×5 (06:54→23:02)
[2018-08-13] MEDS: ALBUTEROL SO4 0.083% IH SOL 2.5 MG/3 ML VIAL.NEB. NEB SCH ×5 (07:49→22:00)
[2018-08-13] MEDS ORDERED: PT OWN MED DRAWER 7, Y5N ONE (08:45)
--- NOTE | 2018-08-13 09:29 | PN ---
Progress Note, Physician Chief Complaint: weakness History of Present Illness: nauseated from the PTU legs remain very swollen no fluid in belly sensation (her usual CHF sx) no orthopnea (CHF as well as asthma sx) no coughing or wheezing no palpitations, cp - Current Medication List Current Medications: Active Medications Acetaminophen (Tylenol -) 650 mg PO Q6H PRN PRN Reason: PAIN LEVEL 1-5 Last Admin: 08/13/18 01:29 Dose: 650 mg Albuterol Sulfate (Ventolin 0.083% Nebulizer Soln -) 1 amp NEB Q4HWA [facility] Last Admin: 08/13/18 07:49 Dose: Not Given Aspirin (Asa -) 81 mg PO DAILY [facility] Last Admin: 08/12/18 09:43 Dose: 81 mg Carvedilol (Coreg Cr -) 20 mg PO DAILY [facility] Clonazepam (Klonopin -) 1 mg PO Q8H PRN PRN Reason: ANXIETY Last Admin: 08/11/18 21:20 Dose: 1 mg Ezetimibe (Zetia -) 10 mg PO Q48H [facility] Last Admin: 08/11/18 09:44 Dose: 10 mg Ferrous Sulfate (Feosol -) 325 mg PO DAILY@1730 [facility] Last Admin: 08/12/18 17:22 Dose: 325 mg Heparin Sodium (Porcine) (Heparin -) 5,000 unit SQ BID [facility] Last Admin: 08/12/18 21:47 Dose: 5,000 unit Hydralazine HCl (Apresoline -) 37.5 mg PO TID [facility] Last Admin: 08/13/18 05:22 Dose: 37.5 mg Insulin Aspart (Novolog Vial Sliding Scale -) 1 vial SQ [facility]; Protocol Last Admin: 08/13/18 06:54 Dose: Not Given Insulin Detemir (Levemir Vial) 15 units SQ HS [facility] Last Admin: 08/12/18 22:33 Dose: 15 units Latanoprost (Xalatan 0.005% Eye Drops -) 1 drop OU HS [facility] Last Admin: 08/12/18 22:40 Dose: 1 drop Nitroglycerin (Nitro-Dur Patch -) 0.2 mg TD DAILY [facility] Last Admin: 08/12/18 13:20 Dose: 0.2 mg Oxycodone HCl (Roxicodone -) 5 mg PO Q8H PRN PRN Reason: PAIN LEVEL 1-5 Last Admin: 08/13/18 05:23 Dose: 5 mg Prasugrel (Effient -) 10 mg PO DAILY [facility] Last Admin: 08/12/18 09:46 Dose: 10 mg Propylthiouracil (Ptu -) 100 mg PO BID [facility] Last Admin: 08/12/18 22:41 Dose: Not Given Rosuvastatin Calcium (Crestor -) 10 mg PO HS [facility] Last Admin: 08/12/18 21:46 Dose: 10 mg Torsemide (Demadex -) 40 mg PO DAILY [facility] Last Admin: 08/12/18 09:50 Dose: 40 mg - Objective Vital Signs: Vital Signs Temperature 98.0 F 08/13/18 02:00 Pulse Rate 83 08/13/18 02:00 Respiratory Rate 18 08/13/18 02:00 Blood Pressure 101/47 08/13/18 02:00 O2 Sat by Pulse Oximetry (%) 97 08/12/18 21:00 Constitutional: Yes: Well Nourished, No Distress, Calm Cardiovascular: Yes: Regular Rate and Rhythm, S1, S2. No: JVD (in chair ( eating lunch)), Gallop, Murmur Respiratory: Yes: Regular, CTA Bilaterally. No: Accessory Muscle Use, Rales, Wheezes Extremities: No: Cold Edema: Yes (3+ bilateral) Neurological: Yes: Alert, Oriented Psychiatric: No: Agitated Labs: CBC, BMP 08/12/18 06:00 08/12/18 06:00 Assessment/Plan ECG--sinus tach, nl intervals, nonspecific ST-T changes [facility] 2014: unchanged 70-80% distal RCA lesion. patent mLAD stent. 80-90% pLCX-- Promus KAREN Echo 12/2016: TDS. nl LV size/EF. mild LVH. grade 2 d.d., hi E/e' = high LAP. nl RV. mild LAE. mild-mod MR, mod TR. mild pHTN (46 mmHg). tele: mostly ATach at 100s-120s bpm, alternating with brief sinus in 70s chronic diast CHF: -has been chronically volume-up (JVD and LE edema) but well compensated for past few months due to uncontrolled hyperthyroidism with atrial tach/sinus tach -assessment of dry wt complicated by progressive, constant wt loss from hyperthyroid state. -most recent o.v. 8/22--JVD resolved for first time in past few months, wt was 207 in office then. was on torsemide 60 qd and had been taking metolazone 2.5mg qd for approx 4 weeks duration, self-d/c'd few weeks prior to that office visit. -suspect she is euvolemic, with severe LE swelling out of proportion to HF status -bun/creat up here--receiving torsemide 40 qd, observe trend paroxysmal atrial tach, sinus tach, palpitations, thyrotoxicosis: -remote h/o intolerance to metoprolol, atenolol, ? others (pt cannot recall s.e.s then) -recently intolerant of propranolol (HAs). -was tolerating metoprolol 50mg qd for past 1-2 months, ? if exacerbating her bronchospasm sx's (though these are fairly constant at baseline). -pt requested changed back to coreg CR here (metoprolol did not seem to control tachycardia much better, as outpt--she changed back to coreg on her own and felt the tachycardia improved). -coreg CR previously reduced from 40, to 20, to 10 due to ? exacerbating asthma. receiving 20mg here. -monitor tele labile HTN: -prior reasonable control, lost of late due to hyperthyroidism -mult med intolerances in past -bp currently controlled -cont current meds (coreg, hydralazine, nitro patch) CAD, prior NSTEMI/PCI: -non-ischemic ECG here (ST-Ts likely rate-related). trop in intermediate range ( 0.4), nl ck--consistent with chronic elevation from pt with known chronically elevated filling pressures, ? contribution from tachycardia as well. -no suspected angina sx's -cont home DAPT (aspirin/effient), statin (cannot tolerate higher doses) with zetia, bb, nitropatch OBI on CKD: -baseline creat runs 2.5-2.8 -bun/cr up here, monitor for now, may need to hold torsemide if worsening
[2018-08-13] MEDS: NITROGLYCERIN 0.2 MG/HOUR TD PATCH TD SCH (09:38)
[2018-08-13] MEDS: HEPARIN NA (PORCINE) 5,000 UNITS/ML 1ML VIAL SQ SCH ×2 (09:39→21:34)
[2018-08-13] MEDS: TORSEMIDE 20 MG TABLET (FP) PO SCH (11:20)
[2018-08-13] MEDS: ASPIRIN 81 MG CHEWABLE TABLETS PO SCH (11:21)
[2018-08-13] MEDS: PRASUGREL HCL 10 MG TAB PO SCH (11:21)
[2018-08-13] MEDS: PROPYLTHIOURACIL 50 MG TABLET (UD) PO SCH (11:22)
[2018-08-13] MEDS: CARVEDILOL PHOSPHATE CR 20 MG CAPSULE (FP) PO SCH (11:22)
[2018-08-13] MEDS: EZETIMIBE 10 MG TABLET (FP) PO SCH (11:23)
[2018-08-13] MEDS: FERROUS SO4 325 MG TABLET (FP) PO SCH (17:08)
--- NOTE | 2018-08-13 18:30 | PN ---
Progress Note, Physician Chief Complaint: no complaint - Current Medication List Current Medications: Active Medications Acetaminophen (Tylenol -) 650 mg PO Q6H PRN PRN Reason: PAIN LEVEL 1-5 Last Admin: 08/13/18 01:29 Dose: 650 mg Albuterol Sulfate (Ventolin 0.083% Nebulizer Soln -) 1 amp NEB Q4HWA [facility] Last Admin: 08/13/18 18:19 Dose: Not Given Aspirin (Asa -) 81 mg PO DAILY [facility] Last Admin: 08/13/18 11:21 Dose: 81 mg Carvedilol (Coreg Cr -) 20 mg PO DAILY [facility] Last Admin: 08/13/18 11:22 Dose: 20 mg Clonazepam (Klonopin -) 1 mg PO Q8H PRN PRN Reason: ANXIETY Last Admin: 08/11/18 21:20 Dose: 1 mg Ezetimibe (Zetia -) 10 mg PO Q48H [facility] Last Admin: 08/13/18 11:23 Dose: 10 mg Ferrous Sulfate (Feosol -) 325 mg PO DAILY@1730 [facility] Last Admin: 08/13/18 17:08 Dose: 325 mg Heparin Sodium (Porcine) (Heparin -) 5,000 unit SQ BID [facility] Last Admin: 08/13/18 09:39 Dose: 5,000 unit Hydralazine HCl (Apresoline -) 37.5 mg PO TID [facility] Last Admin: 08/13/18 15:00 Dose: 37.5 mg Insulin Aspart (Novolog Vial Sliding Scale -) 1 vial SQ [facility]; Protocol Last Admin: 08/13/18 18:00 Dose: Not Given Insulin Detemir (Levemir Vial) 15 units SQ [facility] Last Admin: 08/12/18 22:33 Dose: 15 units Latanoprost (Xalatan 0.005% Eye Drops -) 1 drop OU HS [facility] Last Admin: 08/12/18 22:40 Dose: 1 drop Nitroglycerin (Nitro-Dur Patch -) 0.2 mg TD DAILY [facility] Last Admin: 08/13/18 09:38 Dose: 0.2 mg Oxycodone HCl (Roxicodone -) 5 mg PO Q8H PRN PRN Reason: PAIN LEVEL 1-5 Last Admin: 08/13/18 05:23 Dose: 5 mg Prasugrel (Effient -) 10 mg PO DAILY [facility] Last Admin: 08/13/18 11:21 Dose: 10 mg Propylthiouracil (Ptu -) 100 mg PO BID [facility] Last Admin: 08/13/18 11:22 Dose: 100 mg Rosuvastatin Calcium (Crestor -) 10 mg PO HS [facility] Last Admin: 08/12/18 21:46 Dose: 10 mg Torsemide (Demadex -) 40 mg PO DAILY [facility] Last Admin: 08/13/18 11:20 Dose: 40 mg - Objective Vital Signs: Vital Signs Temperature 97.9 F 08/13/18 14:33 Pulse Rate 118 H 08/13/18 14:33 Respiratory Rate 18 08/13/18 14:33 Blood Pressure 139/69 08/13/18 14:33 O2 Sat by Pulse Oximetry (%) 96 08/13/18 09:00 HENT: Yes: Atraumatic Neck: Yes: Supple Cardiovascular: Yes: Regular Rate and Rhythm Respiratory: Yes: CTA Bilaterally Gastrointestinal: Yes: Normal Bowel Sounds Extremities: Yes: WNL Edema: Yes Edema: LLE: 3+, RLE: 3+ Neurological: Yes: Alert, Oriented Labs: CBC, BMP 08/12/18 06:00 08/12/18 06:00 Problem List - Problems (1) Thyrotoxicosis Assessment/Plan: pt on meds was supposed to go for thyroid ablation endocrine on board Code(s): E05.90 - THYROTOXICOSIS, UNSP WITHOUT THYROTOXIC CRISIS OR STORM (2) HLD (hyperlipidemia) Code(s): E78.5 - HYPERLIPIDEMIA, UNSPECIFIED Qualifiers: (3) HTN (hypertension) Assessment/Plan: on meds stable Code(s): I10 - ESSENTIAL (PRIMARY) HYPERTENSION Qualifiers: (4) IDDM (insulin dependent diabetes mellitus) Assessment/Plan: bgms insulin sliding scale Code(s): E11.9 - TYPE 2 DIABETES MELLITUS WITHOUT COMPLICATIONS; 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
[2018-08-13] MEDS: ROSUVASTATIN CA 10 MG TABLET (FP) PO SCH (21:31)
[2018-08-13] MEDS: INSULIN (LEVEMIR) 100 UNITS/ML UNITS SQ SCH (21:31)
[2018-08-13] MEDS: LATANOPROST 0.005% OPHTH SOLN 2.5ML BOTTLE OU SCH (21:32)
[2018-08-14] MEDS: clonazePAM 0.5 MG TABLET PO PRN (03:28)
[2018-08-14] MEDS: hydrALAZINE HCL 25 MG TABLET (FP) PO SCH ×3 (05:52→21:25)
[2018-08-14] MEDS: ALBUTEROL SO4 0.083% IH SOL 2.5 MG/3 ML VIAL.NEB. NEB SCH ×5 (06:48→22:05)
[2018-08-14 07:37] LABS: ANION GAP 11 MMOL/L (8-16); CALCIUM 8.6 mg/dL (8.5-10.1); CHLORIDE 102 mmol/L (98-107); CO2 23 mmol/L (21-32); CREATININE 3.1 mg/dL (0.55-1.3); GLUCOSE,RANDOM 88 mg/dL (74-106); POTASSIUM 4.3 mmol/L (3.5-5.1); SODIUM 136 mmol/L (136-145)
[2018-08-14] MEDS: INSULIN SLIDING SCALE (NOVOLOG) 1 VIAL SQ SCH ×4 (07:42→21:20)
[2018-08-14 07:57] LABS: BLOOD UREA NITROGEN 114 mg/dL (7-18)
[2018-08-14] MEDS ORDERED: PT OWN MED DRAWER 7, Y5N ONE ×2 (08:59→20:57)
[2018-08-14] MEDS: TORSEMIDE 20 MG TABLET (FP) PO SCH (09:56)
[2018-08-14] MEDS: CARVEDILOL PHOSPHATE CR 20 MG CAPSULE (FP) PO SCH (09:56)
[2018-08-14] MEDS: ASPIRIN 81 MG CHEWABLE TABLETS PO SCH (09:56)
[2018-08-14] MEDS: PRASUGREL HCL 10 MG TAB PO SCH (09:56)
[2018-08-14] MEDS: HEPARIN NA (PORCINE) 5,000 UNITS/ML 1ML VIAL SQ SCH ×2 (09:57→21:20)
[2018-08-14] MEDS: NITROGLYCERIN 0.2 MG/HOUR TD PATCH TD SCH (09:57)
[2018-08-14] MEDS: PROPYLTHIOURACIL 50 MG TABLET (UD) PO SCH (09:58)
[2018-08-14] MEDS ORDERED: INSULIN (NOVOLOG) ASPART 100 UNITS/ML 10ML VIAL ONE (12:00)
--- NOTE | 2018-08-14 12:48 | PN ---
Progress Note, Physician - Current Medication List Current Medications: Active Medications Acetaminophen (Tylenol -) 650 mg PO Q6H PRN PRN Reason: PAIN LEVEL 1-5 Last Admin: 08/13/18 01:29 Dose: 650 mg Albuterol Sulfate (Ventolin 0.083% Nebulizer Soln -) 1 amp NEB Q4HWA [facility] Last Admin: 08/14/18 10:37 Dose: Not Given Aspirin (Asa -) 81 mg PO DAILY [facility] Last Admin: 08/14/18 09:56 Dose: 81 mg Carvedilol (Coreg Cr -) 20 mg PO DAILY [facility] Last Admin: 08/14/18 09:56 Dose: 20 mg Clonazepam (Klonopin -) 1 mg PO Q8H PRN PRN Reason: ANXIETY Last Admin: 08/14/18 03:28 Dose: 1 mg Ezetimibe (Zetia -) 10 mg PO Q48H [facility] Last Admin: 08/13/18 11:23 Dose: 10 mg Ferrous Sulfate (Feosol -) 325 mg PO DAILY@1730 [facility] Last Admin: 08/13/18 17:08 Dose: 325 mg Heparin Sodium (Porcine) (Heparin -) 5,000 unit SQ BID [facility] Last Admin: 08/14/18 09:57 Dose: Not Given Hydralazine HCl (Apresoline -) 37.5 mg PO TID [facility] Last Admin: 08/14/18 05:52 Dose: 37.5 mg Insulin Aspart (Novolog Vial Sliding Scale -) 1 vial SQ ACHS [facility]; Protocol Last Admin: 08/14/18 12:02 Dose: 4 unit Latanoprost (Xalatan 0.005% Eye Drops -) 1 drop OU HS [facility] Last Admin: 08/13/18 21:32 Dose: 1 drop Nitroglycerin (Nitro-Dur Patch -) 0.2 mg TD DAILY [facility] Last Admin: 08/14/18 09:57 Dose: 0.2 mg Oxycodone HCl (Roxicodone -) 5 mg PO Q8H PRN PRN Reason: PAIN LEVEL 1-5 Last Admin: 08/13/18 05:23 Dose: 5 mg Prasugrel (Effient -) 10 mg PO DAILY [facility] Last Admin: 08/14/18 09:56 Dose: 10 mg Propylthiouracil (Ptu -) 50 mg PO DAILY [facility] Last Admin: 08/14/18 09:58 Dose: 50 mg Rosuvastatin Calcium (Crestor -) 10 mg PO HS [facility] Last Admin: 08/13/18 21:31 Dose: 10 mg Torsemide (Demadex -) 40 mg PO DAILY [facility] Last Admin: 08/14/18 09:56 Dose: 40 mg - Objective Vital Signs: Vital Signs Temperature 98.8 F 08/14/18 02:00 Pulse Rate 72 08/14/18 02:00 Respiratory Rate 18 08/14/18 10:00 Blood Pressure 119/67 08/14/18 02:00 O2 Sat by Pulse Oximetry (%) 97 08/14/18 10:00 Constitutional: Yes: No Distress HENT: Yes: Atraumatic Neck: Yes: Supple Cardiovascular: Yes: Regular Rate and Rhythm Respiratory: Yes: CTA Bilaterally Gastrointestinal: Yes: Normal Bowel Sounds Extremities: Yes: WNL Edema: Yes Edema: LLE: 3+, RLE: 3+ Peripheral Pulses WNL: Yes Neurological: Yes: Alert, Oriented Labs: CBC, BMP 08/12/18 06:00 08/14/18 06:35 Problem List - Problems (1) Thyrotoxicosis Assessment/Plan: pt on meds was supposed to go for thyroid ablation endocrine on board Code(s): E05.90 - THYROTOXICOSIS, UNSP WITHOUT THYROTOXIC CRISIS OR STORM (2) HLD (hyperlipidemia) Code(s): E78.5 - HYPERLIPIDEMIA, UNSPECIFIED Qualifiers: (3) HTN (hypertension) Assessment/Plan: on meds stable Code(s): I10 - ESSENTIAL (PRIMARY) HYPERTENSION Qualifiers: (4) IDDM (insulin dependent diabetes mellitus) Assessment/Plan: bgms insulin sliding scale Code(s): E11.9 - TYPE 2 DIABETES MELLITUS WITHOUT COMPLICATIONS; 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
--- NOTE | 2018-08-14 13:36 | PN ---
Progress Note, Physician Chief Complaint: weakness, leg swelling History of Present Illness: legs remain more swollen than baseline + sob in bed last night, none today--improved with neb tx last night. no cough/wheeze no cp. no palpitations at present no cigs - Current Medication List Current Medications: Active Medications Acetaminophen (Tylenol -) 650 mg PO Q6H PRN PRN Reason: PAIN LEVEL 1-5 Last Admin: 08/13/18 01:29 Dose: 650 mg Albuterol Sulfate (Ventolin 0.083% Nebulizer Soln -) 1 amp NEB Q4HWA [facility] Last Admin: 08/14/18 10:37 Dose: Not Given Aspirin (Asa -) 81 mg PO DAILY [facility] Last Admin: 08/14/18 09:56 Dose: 81 mg Carvedilol (Coreg Cr -) 20 mg PO DAILY [facility] Last Admin: 08/14/18 09:56 Dose: 20 mg Clonazepam (Klonopin -) 1 mg PO Q8H PRN PRN Reason: ANXIETY Last Admin: 08/14/18 03:28 Dose: 1 mg Ezetimibe (Zetia -) 10 mg PO Q48H [facility] Last Admin: 08/13/18 11:23 Dose: 10 mg Ferrous Sulfate (Feosol -) 325 mg PO DAILY@1730 [facility] Last Admin: 08/13/18 17:08 Dose: 325 mg Heparin Sodium (Porcine) (Heparin -) 5,000 unit SQ BID [facility] Last Admin: 08/14/18 09:57 Dose: Not Given Hydralazine HCl (Apresoline -) 37.5 mg PO TID [facility] Last Admin: 08/14/18 05:52 Dose: 37.5 mg Insulin Aspart (Novolog Vial Sliding Scale -) 1 vial SQ ACHS [facility]; Protocol Last Admin: 08/14/18 12:02 Dose: 4 unit Latanoprost (Xalatan 0.005% Eye Drops -) 1 drop OU HS [facility] Last Admin: 08/13/18 21:32 Dose: 1 drop Nitroglycerin (Nitro-Dur Patch -) 0.2 mg TD DAILY [facility] Last Admin: 08/14/18 09:57 Dose: 0.2 mg Oxycodone HCl (Roxicodone -) 5 mg PO Q8H PRN PRN Reason: PAIN LEVEL 1-5 Last Admin: 08/13/18 05:23 Dose: 5 mg Prasugrel (Effient -) 10 mg PO DAILY [facility] Last Admin: 08/14/18 09:56 Dose: 10 mg Propylthiouracil (Ptu -) 50 mg PO DAILY [facility] Last Admin: 08/14/18 09:58 Dose: 50 mg Rosuvastatin Calcium (Crestor -) 10 mg PO HS [facility] Last Admin: 08/13/18 21:31 Dose: 10 mg Torsemide (Demadex -) 40 mg PO DAILY [facility] Last Admin: 08/14/18 09:56 Dose: 40 mg - Objective Vital Signs: Vital Signs Temperature 98.8 F 08/14/18 02:00 Pulse Rate 72 08/14/18 02:00 Respiratory Rate 18 08/14/18 10:00 Blood Pressure 119/67 08/14/18 02:00 O2 Sat by Pulse Oximetry (%) 97 08/14/18 10:00 Constitutional: Yes: No Distress, Calm Eyes: No: Sclera Icterus HENT: No: Nasal Congestion Cardiovascular: Yes: Regular Rate and Rhythm, S1, S2, Other (PMI non diplaced). No: JVD (in chair), Gallop, Murmur Respiratory: Yes: CTA Bilaterally. No: Accessory Muscle Use, Rales, Wheezes Gastrointestinal: Yes: Normal Bowel Sounds, Soft. No: Tenderness Musculoskeletal: Yes: Other (No kyphosis) Extremities: No: Cyanosis Edema: Yes (3+ bilat (non and pitting) Integumentary: No: Jaundice Neurological: Yes: Alert, Oriented (x3) Psychiatric: No: Agitated Labs: CBC, BMP 08/12/18 06:00 08/14/18 06:35 Assessment/Plan ECG--sinus tach, nl intervals, nonspecific ST-T changes [facility] 2014: unchanged 70-80% distal RCA lesion. patent mLAD stent. 80-90% pLCX-- Promus [facility] Echo 12/2016: TDS. nl LV size/EF. mild LVH. grade 2 d.d., hi E/e' = high LAP. nl RV. mild LAE. mild-mod MR, mod TR. mild pHTN (46 mmHg). tele: AT (110s-120s bpm) acute on chronic diast CHF: -has been chronically volume-up (JVD and LE edema) but well compensated for past few months due to uncontrolled hyperthyroidism with atrial tach/sinus tach -assessment of dry wt complicated by progressive, constant wt loss from hyperthyroid state. -most recent o.v. 07/20--JVD resolved for first time in past few months, wt was 207 in office then. was on torsemide 60 qd and had been taking metolazone 2.5mg qd for approx 4 weeks duration, self-d/c'd few weeks prior to that office visit. -suspect severe LE swelling has been out of proportion to HF status since hyperthyroidism. uncomfortable to her, not responding well to torsemide po ( little UOP subjectively today). - will give trial lasix 80 iv x 1 today -bun/creat up here--receiving torsemide 40 qd, observe trend paroxysmal atrial tach, sinus tach, palpitations, thyrotoxicosis: -remote h/o intolerance to metoprolol, atenolol, ? others (pt cannot recall s.e.s then) -recently intolerant of propranolol (HAs). -was tolerating metoprolol 50mg qd for past 1-2 months, ? if exacerbating her bronchospasm sx's (though these are fairly constant at baseline). -pt requested changed back to coreg CR here (metoprolol did not seem to control tachycardia much better, as outpt--she changed back to coreg on her own and felt the tachycardia improved). -cont coreg CR 20 qd as doing -monitor tele labile HTN: -prior reasonable control, lost of late due to hyperthyroidism -mult med intolerances in past -bp currently controlled -cont current meds (coreg, hydralazine, nitro patch) CAD, prior NSTEMI/PCI: -non-ischemic ECG here (ST-Ts likely rate-related). trop in intermediate range ( 0.4), nl ck--consistent with chronic elevation from pt with known chronically elevated filling pressures, ? contribution from tachycardia as well. -no suspected angina sx's -cont home DAPT (aspirin/effient), statin (cannot tolerate higher doses) with zetia, bb, nitropatch OBI on CKD: -baseline creat ranging 3-3.1 of late. -bun/cr up here, monitor for now, may need to hold torsemide if worsening
[2018-08-14] MEDS ORDERED: FUROSEMIDE 40 MG/4 ML INJECTABLE VIAL IVPUSH ONE (13:45)
[2018-08-14] MEDS: FERROUS SO4 325 MG TABLET (FP) PO SCH (17:33)
--- NOTE | 2018-08-14 20:21 | DS ---
Physical Examination Vital Signs: Vital Signs Temperature 98 F 08/14/18 14:33 Pulse Rate 116 H 08/14/18 14:33 Respiratory Rate 18 08/14/18 14:33 Blood Pressure 129/74 08/14/18 14:33 O2 Sat by Pulse Oximetry (%) 97 08/14/18 10:00 Labs: CBC, BMP 08/12/18 06:00 08/14/18 06:35 Discharge Summary Reason For Visit: THYROTOXICOSIS Current Active Problems Thyrotoxicosis (Acute) Condition: Guarded - Instructions Referrals: William Bruner MD [Primary Care Provider] - - Home Medications Comprehensive Discharge Medication List: Ambulatory Orders Aspirin [ASA -] 81 mg PO DAILY #1 tab 03/06/13 Prasugrel Hydrochloride [Effient -] 10 mg PO DAILY #0 tab 05/08/15 Albuterol 0.083% Nebulizer Bibiana [Ventolin 0.083% Nebulizer Soln -] 1 neb NEB QID 09/14/16 Insulin Glargine,Hum.rec.anlog [Lantus (10mL VIAL) -] 10 units SQ HS PRN Insulin Lispro [Humalog] 100 unit SQ PRN 04/29/17 Budesonide/Formeterol Fumarate [SYMBICORT 160/4.5mcg -] 2 inh PO BID 06/13/17 clonazePAM [KlonoPIN] 0.5 mg PO QID PRN 06/13/17 Albuterol 0.083% Nebulizer Bibiana [Ventolin 0.083% Nebulizer Soln -] 1 amp NEB Q4H #1 amp 12/20/17 Ezetimibe [Zetia -] 10 mg PO Q48H 30 Days #30 tablet 12/20/17 Nitroglycerin Patch [Nitro-Dur Patch -] 0.2 mg TD DAILY #30 patch.td24 12/20/17 Rosuvastatin [Crestor -] 10 mg PO HS #30 tablet 04/15/18 Brimonidine Tartrate [Alphagan P 0.1% -] 3 drop OU Q8H 05/27/18 Latanoprost 0.005% Eye Drops [Xalatan 0.005% Eye Drops -] 1 drop OU DAILY Pantoprazole Sodium [Protonix -] 40 mg PO DAILY 05/27/18 Mometasone Furoate [Asmanex 220Mcg -] 1 puff IH BID #1 inhaler 06/04/18 hydrALAZINE HCL [Apresoline -] 37.5 mg PO TID #135 tablet 06/04/18 Acetaminophen [Tylenol] 650 mg PO Q4H PRN 08/11/18 Ferrous Sulfate [Feosol] 28 mg PO BID 08/11/18 Propylthiouracil 50 mg PO DAILY 08/11/18 Torsemide 20 mg PO DAILY 08/11/18 Carvedilol Phosphate [Coreg Cr -] 20 mg PO DAILY #30 capsule.sa 08/14/18 dc snf
[2018-08-14] MEDS ORDERED: clonazePAM 0.5 MG TABLET PO ONE (21:15)
[2018-08-14] MEDS: LATANOPROST 0.005% OPHTH SOLN 2.5ML BOTTLE OU SCH (21:20)
[2018-08-14] MEDS: ROSUVASTATIN CA 10 MG TABLET (FP) PO SCH (21:25)
[2018-08-15] MEDS: INSULIN SLIDING SCALE (NOVOLOG) 1 VIAL SQ SCH ×2 (06:07→11:50)
[2018-08-15] MEDS: hydrALAZINE HCL 25 MG TABLET (FP) PO SCH ×2 (06:09→14:04)
[2018-08-15] MEDS: ALBUTEROL SO4 0.083% IH SOL 2.5 MG/3 ML VIAL.NEB. NEB SCH ×3 (06:15→13:50)
[2018-08-15] MEDS ORDERED: PT OWN MED DRAWER 7, Y5N ONE ×3 (06:23→10:48)
[2018-08-15 06:40] LABS: BASO % 0.4 % (0-2.0); EOS % 1.5 % (0-4.5); HEMATOCRIT 28.2 % (32.4-45.2); HEMOGLOBIN 9.2 GM/dL (10.7-15.3); LYMPH % 12.2 % (8-40); MCH 24.6 pg (25.7-33.7); MCHC 32.7 g/dl (32.0-36.0); MEAN CELL VOLUME 75.1 fl (80-96); MEAN PLT VOLUME 8.1 fl (7.5-11.1); MONO % 11.5 % (3.8-10.2); NEUT % 74.4 % (42.8-82.8); PLATELET COUNT 208 K/MM3 (134-434); RBC 3.75 M/mm3 (3.60-5.2); RDW 14.1 % (11.6-15.6); WHITE BLOOD COUNT 7.3 K/mm3 (4.0-10.0)
[2018-08-15 07:18] LABS: ALBUMIN 2.8 g/dl (3.4-5.0); ALK PHOS 136 U/L (45-117); ANION GAP 13 MMOL/L (8-16); BILIRUBIN,TOTAL 0.6 mg/dL (0.2-1.0); CALCIUM 8.8 mg/dL (8.5-10.1); CHLORIDE 101 mmol/L (98-107); CO2 22 mmol/L (21-32); GLUCOSE,RANDOM 92 mg/dL (74-106); POTASSIUM 4.6 mmol/L (3.5-5.1); SGOT/AST 27 U/L (15-37); SGPT/ALT 28 U/L (13-61); SODIUM 136 mmol/L (136-145); TOT PROT 6.3 g/dl (6.4-8.2)
[2018-08-15 07:20] LABS: BLOOD UREA NITROGEN 108 mg/dL (7-18)
--- NOTE | 2018-08-15 08:46 | PN ---
Progress Note, Physician Chief Complaint: leg swelling, weakness History of Present Illness: shaking chills this am. not the first time this has happened. lasting for many minutes. feels heart pounding fast leg swelling unchanged, despite signif UOP after iv lasix yesterday. no more sob or orthopnea. no cp no cigs - Current Medication List Current Medications: Active Medications Acetaminophen (Tylenol -) 650 mg PO Q6H PRN PRN Reason: PAIN LEVEL 1-5 Last Admin: 08/13/18 01:29 Dose: 650 mg Albuterol Sulfate (Ventolin 0.083% Nebulizer Soln -) 1 amp NEB Q4HWA [facility] Last Admin: 08/15/18 06:15 Dose: Not Given Aspirin (Asa -) 81 mg PO DAILY [facility] Last Admin: 08/14/18 09:56 Dose: 81 mg Carvedilol (Coreg Cr -) 20 mg PO DAILY [facility] Last Admin: 08/14/18 09:56 Dose: 20 mg Ezetimibe (Zetia -) 10 mg PO Q48H [facility] Last Admin: 08/13/18 11:23 Dose: 10 mg Ferrous Sulfate (Feosol -) 325 mg PO DAILY@1730 [facility] Last Admin: 08/14/18 17:33 Dose: 325 mg Heparin Sodium (Porcine) (Heparin -) 5,000 unit SQ BID [facility] Last Admin: 08/14/18 21:20 Dose: Not Given Hydralazine HCl (Apresoline -) 37.5 mg PO TID [facility] Last Admin: 08/15/18 06:09 Dose: 37.5 mg Insulin Aspart (Novolog Vial Sliding Scale -) 1 vial SQ [facility]; Protocol Last Admin: 08/15/18 06:07 Dose: Not Given Latanoprost (Xalatan 0.005% Eye Drops -) 1 drop OU HS [facility] Last Admin: 08/14/18 21:20 Dose: 1 drop Nitroglycerin (Nitro-Dur Patch -) 0.2 mg TD DAILY [facility] Last Admin: 08/14/18 09:57 Dose: 0.2 mg Oxycodone HCl (Roxicodone -) 5 mg PO Q8H PRN PRN Reason: PAIN LEVEL 1-5 Last Admin: 08/13/18 05:23 Dose: 5 mg Prasugrel (Effient -) 10 mg PO DAILY [facility] Last Admin: 08/14/18 09:56 Dose: 10 mg Propylthiouracil (Ptu -) 50 mg PO DAILY [facility] Last Admin: 08/14/18 09:58 Dose: 50 mg Rosuvastatin Calcium (Crestor -) 10 mg PO HS [facility] Last Admin: 08/14/18 21:25 Dose: 10 mg - Objective Vital Signs: Vital Signs Temperature 98.4 F 08/15/18 06:00 Pulse Rate 88 08/15/18 06:00 Respiratory Rate 18 08/15/18 06:00 Blood Pressure 134/63 08/15/18 06:00 O2 Sat by Pulse Oximetry (%) 98 08/14/18 21:00 Constitutional: Yes: No Distress, Calm Eyes: No: Sclera Icterus HENT: No: Nasal Congestion Cardiovascular: Yes: Regular Rate and Rhythm, S1, S2, Other (PMI non diplaced). No: JVD (in chair), Gallop, Murmur Respiratory: Yes: CTA Bilaterally. No: Accessory Muscle Use, Rales, Wheezes Gastrointestinal: Yes: Normal Bowel Sounds, Soft. No: Tenderness Musculoskeletal: Yes: Other (No kyphosis) Extremities: No: Cold Edema: Yes (3+ nonpitting bilat) Integumentary: No: Jaundice Neurological: Yes: Alert, Oriented (x3) Psychiatric: No: Agitated Labs: CBC, BMP 08/15/18 06:00 08/15/18 06:00 Assessment/Plan ECG--sinus tach, nl intervals, nonspecific ST-T changes [facility] 2014: unchanged 70-80% distal RCA lesion. patent mLAD stent. 80-90% pLCX-- Promus [facility] Echo 12/2016: TDS. nl LV size/EF. mild LVH. grade 2 d.d., hi E/e' = high LAP. nl RV. mild LAE. mild-mod MR, mod TR. mild pHTN (46 mmHg). tele: AT (120s bpm) hyperthyroidism: -not controlled, going on many months now. pt declined radio-iodine ablation. has had suboptimal response to meds, now plan is for ablation (with dr moreno) chills: -temp was normal this am, nurse to repeat -? infectious, doubt sec to hyperthyroidism. ? med s.e. -per dr lee acute on chronic diast CHF: -has been chronically volume-up (JVD and LE edema) but well compensated for past few months due to uncontrolled hyperthyroidism with atrial tach/sinus tach -assessment of dry wt complicated by progressive, constant wt loss from hyperthyroid state. -most recent o.v. 07/20--JVD resolved for first time in past few months, wt was 207 in office then. was on torsemide 60 qd and had been taking metolazone 2.5mg qd for approx 4 weeks duration, self-d/c'd few weeks prior to that office visit. -suspect severe LE swelling has been out of proportion to HF status since hyperthyroidism. uncomfortable to her, not responding well to torsemide po ( little UOP subjectively today). -08/15: given lasix 80 iv x 1 dose for ongoing severe edema with sob overnight. renal fxn stable. wt pending today. will rpt lasix 80 iv x 1 today. -plan to send pt home on torsemide 80 qd if bun/creat stable paroxysmal atrial tach, sinus tach, palpitations, thyrotoxicosis: -remote h/o intolerance to metoprolol, atenolol, ? others (pt cannot recall s.e.s then) -recently intolerant of propranolol (HAs). -was tolerating metoprolol 50mg qd for past 1-2 months, ? if exacerbating her bronchospasm sx's (though these are fairly constant at baseline). pt changed back to coreg CR b/c she felt metoprolol was not controlling tachycardia. -cont coreg CR, increase to 40 qd. -monitor tele labile HTN: -prior reasonable control, lost of late due to hyperthyroidism -mult med intolerances in past -bp currently controlled -cont current meds (coreg, hydralazine, nitro patch) CAD, prior NSTEMI/PCI: -non-ischemic ECG here (ST-Ts likely rate-related). trop in intermediate range ( 0.4), nl ck--consistent with chronic elevation from pt with known chronically elevated filling pressures, ? contribution from tachycardia as well. -no suspected angina sx's -cont home DAPT (aspirin/effient), statin (cannot tolerate higher doses) with zetia, bb, nitropatch OBI on CKD: -baseline creat ranging 3-3.1 of late. -bun signif elevated over baseline, creat back to baseline. no melena or acute anemia to suggest GIB. not on steroids. anemia: -chronic. baseline hgb 9-10 -stable counts here
[2018-08-15] MEDS: ASPIRIN 81 MG CHEWABLE TABLETS PO SCH (09:33)
[2018-08-15] MEDS: ACETAMINOPHEN 325 MG TABLET (FP) PO PRN (09:33)
[2018-08-15] MEDS: CARVEDILOL PHOSPHATE CR 20 MG CAPSULE (FP) PO SCH (09:34)
[2018-08-15] MEDS: NITROGLYCERIN 0.2 MG/HOUR TD PATCH TD SCH (09:35)
[2018-08-15] MEDS: HEPARIN NA (PORCINE) 5,000 UNITS/ML 1ML VIAL SQ SCH (09:35)
[2018-08-15] MEDS: PROPYLTHIOURACIL 50 MG TABLET (UD) PO SCH (09:35)
[2018-08-15] MEDS: PRASUGREL HCL 10 MG TAB PO SCH (09:36)
[2018-08-15] MEDS ORDERED: FUROSEMIDE 40 MG/4 ML INJECTABLE VIAL IVPUSH ONE (09:45)
[2018-08-15] MEDS ORDERED: CARVEDILOL PHOSPHATE CR 20 MG CAPSULE (FP) PO ONE (09:47)
[2018-08-15] MEDS: EZETIMIBE 10 MG TABLET (FP) PO SCH (11:51)
[2018-08-15 14:09] VITALS: BP 125/63; PULSE 120; TEMP 97.9
--- NOTE | 2018-08-15 16:52 | PN ---
Progress Note, Physician - Current Medication List Current Medications: Active Medications Acetaminophen (Tylenol -) 650 mg PO Q6H PRN PRN Reason: PAIN LEVEL 1-5 Last Admin: 08/15/18 09:33 Dose: 650 mg Albuterol Sulfate (Ventolin 0.083% Nebulizer Soln -) 1 amp NEB Q4HWA [facility] Last Admin: 08/15/18 13:50 Dose: Not Given Aspirin (Asa -) 81 mg PO DAILY [facility] Last Admin: 08/15/18 09:33 Dose: 81 mg Carvedilol (Coreg Cr -) 40 mg PO DAILY [facility] Ezetimibe (Zetia -) 10 mg PO Q48H [facility] Last Admin: 08/15/18 11:51 Dose: Not Given Ferrous Sulfate (Feosol -) 325 mg PO DAILY@1730 [facility] Last Admin: 08/14/18 17:33 Dose: 325 mg Heparin Sodium (Porcine) (Heparin -) 5,000 unit SQ BID [facility] Last Admin: 08/15/18 09:35 Dose: 5,000 unit Hydralazine HCl (Apresoline -) 37.5 mg PO TID [facility] Last Admin: 08/15/18 14:04 Dose: 37.5 mg Insulin Aspart (Novolog Vial Sliding Scale -) 1 vial SQ ACHS [facility]; Protocol Last Admin: 08/15/18 11:50 Dose: 4 unit Latanoprost (Xalatan 0.005% Eye Drops -) 1 drop OU HS [facility] Last Admin: 08/14/18 21:20 Dose: 1 drop Nitroglycerin (Nitro-Dur Patch -) 0.2 mg TD DAILY [facility] Last Admin: 08/15/18 09:35 Dose: 0.2 mg Prasugrel (Effient -) 10 mg PO DAILY [facility] Last Admin: 08/15/18 09:36 Dose: 10 mg Propylthiouracil (Ptu -) 50 mg PO DAILY [facility] Last Admin: 08/15/18 09:35 Dose: 50 mg Rosuvastatin Calcium (Crestor -) 10 mg PO HS [facility] Last Admin: 08/14/18 21:25 Dose: 10 mg - Objective Vital Signs: Vital Signs Temperature 97.9 F 08/15/18 13:55 Pulse Rate 120 H 08/15/18 13:55 Respiratory Rate 20 08/15/18 13:55 Blood Pressure 125/63 08/15/18 13:55 O2 Sat by Pulse Oximetry (%) 98 08/15/18 09:50 Constitutional: Yes: No Distress HENT: Yes: Atraumatic Neck: Yes: Supple Cardiovascular: Yes: Regular Rate and Rhythm Respiratory: Yes: CTA Bilaterally Gastrointestinal: Yes: Normal Bowel Sounds Extremities: Yes: WNL Neurological: Yes: Alert, Oriented Labs: CBC, BMP 08/15/18 06:00 08/15/18 06:00 Problem List - Problems (1) Thyrotoxicosis Assessment/Plan: pt on meds was supposed to go for thyroid ablation endocrine on board Code(s): E05.90 - THYROTOXICOSIS, UNSP WITHOUT THYROTOXIC CRISIS OR STORM (2) HLD (hyperlipidemia) Code(s): E78.5 - HYPERLIPIDEMIA, UNSPECIFIED Qualifiers: (3) HTN (hypertension) Assessment/Plan: on meds stable Code(s): I10 - ESSENTIAL (PRIMARY) HYPERTENSION Qualifiers: (4) IDDM (insulin dependent diabetes mellitus) Code(s): E11.9 - TYPE 2 DIABETES MELLITUS WITHOUT COMPLICATIONS; Z79.4 - HALFWAY (CURRENT) USE OF INSULIN (5) Lymphedema Code(s): I89.0 - LYMPHEDEMA, NOT ELSEWHERE CLASSIFIED
[2018-08-16] MEDS ORDERED: CARVEDILOL PHOSPHATE CR 40 MG CAPSULE (FP) PO SCH (10:00)
--- NOTE | 2018-08-16 18:06 | DS ---
Physical Examination Vital Signs: Vital Signs Temperature 97.9 F 08/15/18 13:55 Pulse Rate 120 H 08/15/18 13:55 Respiratory Rate 20 08/15/18 13:55 Blood Pressure 125/63 08/15/18 13:55 O2 Sat by Pulse Oximetry (%) 98 08/15/18 09:50 Labs: CBC, BMP 08/15/18 06:00 08/15/18 06:00 Discharge Summary Reason For Visit: THYROTOXICOSIS Current Active Problems CHF exacerbation (Acute) CKD (chronic kidney disease) (Acute) Lymphedema (Acute) Thyrotoxicosis (Acute) Condition: Improved - Instructions Referrals: William Bruner MD [Primary Care Provider] - Disposition: HOME - Home Medications Comprehensive Discharge Medication List: Ambulatory Orders Aspirin [ASA -] 81 mg PO DAILY #1 tab 03/06/13 Insulin Lispro [Humalog] 100 unit SQ PRN 04/29/17 clonazePAM [KlonoPIN] 0.5 mg PO QID PRN 06/13/17 Ezetimibe [Zetia -] 10 mg PO Q48H 30 Days #30 tablet 12/20/17 Nitroglycerin Patch [Nitro-Dur Patch -] 0.2 mg TD DAILY #30 patch.td24 12/20/17 Rosuvastatin [Crestor -] 10 mg PO HS #30 tablet 04/15/18 Brimonidine Tartrate [Alphagan P 0.1% -] 3 drop OU Q8H 05/27/18 Latanoprost 0.005% Eye Drops [Xalatan 0.005% Eye Drops -] 1 drop OU DAILY hydrALAZINE HCL [Apresoline -] 37.5 mg PO TID #135 tablet 06/04/18 Acetaminophen [Tylenol] 650 mg PO Q4H PRN 08/11/18 Ferrous Sulfate [Feosol] 28 mg PO BID 08/11/18 Torsemide 20 mg PO DAILY 08/11/18 Carvedilol Phosphate [Coreg Cr -] 20 mg PO DAILY #30 capsule.sa 08/14/18 Albuterol 0.083% Nebulizer Bibiana [Ventolin 0.083% Nebulizer Soln -] 1 amp NEB PRN PRN 08/16/18 Fluticasone/Vilanterol [Breo Ellipta 200-25 Mcg INH] 1 each IH DAILY 08/16/18 Insulin Glargine,Hum.rec.anlog [Lantus] 10 unit SQ HS 08/16/18 Prasugrel HCl [Effient] 10 mg PO DAILY 08/16/18 nd home
== END 2018-08-15 16:00 | disposition home or self-care (01) | DRG 424 ==
LOC: JER 12:07 → JERBED 17:27 → J4S 08-11 01:14
PROVIDERS: ADMIT Internal Medicine; ATTEND Internal Medicine
DX: E05.90 Thyrotoxicosis, unspecified without thyrotoxic crisis or storm (principal); I50.33 Acute on chronic diastolic (congestive) heart failure; N17.9 Acute kidney failure, unspecified; I25.10 Atherosclerotic heart disease of native coronary artery without angina pectoris; I13.0 Hypertensive heart and chronic kidney disease with heart failure and stage 1 through stage 4 chronic kidney disease, or unspecified chronic kidney disease; E11.22 Type 2 diabetes mellitus with diabetic chronic kidney disease; N18.9 Chronic kidney disease, unspecified; G47.33 Obstructive sleep apnea (adult) (pediatric); I25.2 Old myocardial infarction; I89.0 Lymphedema, not elsewhere classified; F41.9 Anxiety disorder, unspecified; I47.1 Supraventricular tachycardia; E66.9 Obesity, unspecified; Z68.35 Body mass index [BMI] 35.0-35.9, adult; I48.91 Unspecified atrial fibrillation; I27.20 Pulmonary hypertension, unspecified; I34.0 Nonrheumatic mitral (valve) insufficiency; D64.9 Anemia, unspecified; E78.5 Hyperlipidemia, unspecified; J45.909 Unspecified asthma, uncomplicated; E11.65 Type 2 diabetes mellitus with hyperglycemia; E11.21 Type 2 diabetes mellitus with diabetic nephropathy; Z79.4 Long term (current) use of insulin; Z95.5 Presence of coronary angioplasty implant and graft; Z95.1 Presence of aortocoronary bypass graft
CPT/HCPCS: 36415; 72050-TC-FY; 72125-TC; 80048; 80053; 82550; 82962; 84436; 84439; 84443; 84480; 84481; 84484; 85025; 93005; 93010; 94640; 97116-GP; 97162-GP; 99285-25; J0131; J1644

== ENCOUNTER 2018-08-15 23:12 | Inpatient (IN) | payer OTHER ==
--- NOTE | 2018-08-15 23:50 | PDOC ---
History of Present Illness - General Chief Complaint: Shortness of Breath Stated Complaint: SHORTNESS OF BREATH/EDEMA Time Seen by Provider: 08/15/18 23:44 History Source: Patient Exam Limitations: No Limitations - History of Present Illness Initial Comments: 08/15/18 23:44 This is a 63 YOF with h/o IDDM, HTN, HLD, CAD and OR s/p stent and CABG, A-fib, CHF, pulmonary HTN, asthma, KATINA, hyperthyroidism, chronic lymphedema, renal failure, anemia, and anxiety who p/w SOB, rapid palpitations, fever, worsening chronic BLE swelling, BLE tenderness, and inability to ambulate because her swelling has gotten so severe. She was admitted here between 08/10 and 08/15/18 ( discharged just the same day of arrival to the ED today). She is scheduled for a radio-iodide thyroid ablation on 08/16/18. She has been taking her PTU. She additionally has unchanged chronic neck and shoulder pain. She denies any new cough, abdominal pain, headache, n/t, focal weakness (though notes the BLE weakness 2/2 swelling), or other symptoms. Past History - Past Medical History Allergies/Adverse Reactions: Allergies Allergy/AdvReac Type Severity Reaction Status Date / Time Penicillins Allergy Intermediate Hives Verified 08/10/18 12:22 Iodinated Contrast- Oral and Allergy Verified 08/10/18 12:22 IV Dye [Iodinated Contrast Media - IV Dye] tiotropium AdvReac Verified 08/10/18 12:22 [From [facility] with [facility]i[employer]er] Home Medications: Ambulatory Orders Aspirin [ASA -] 81 mg PO DAILY #1 tab 03/06/13 Insulin Lispro [Humalog] 100 unit SQ PRN 04/29/17 clonazePAM [KlonoPIN] 0.5 mg PO QID PRN 06/13/17 Ezetimibe [Zetia -] 10 mg PO Q48H 30 Days #30 tablet 12/20/17 Nitroglycerin Patch [Nitro-Dur Patch -] 0.2 mg TD DAILY #30 patch.td24 12/20/17 Rosuvastatin [Crestor -] 10 mg PO HS #30 tablet 04/15/18 Brimonidine Tartrate [Alphagan P 0.1% -] 3 drop OU Q8H 05/27/18 Latanoprost 0.005% Eye Drops [Xalatan 0.005% Eye Drops -] 1 drop OU DAILY hydrALAZINE HCL [Apresoline -] 37.5 mg PO TID #135 tablet 06/04/18 Acetaminophen [Tylenol] 650 mg PO Q4H PRN 08/11/18 Ferrous Sulfate [Feosol] 28 mg PO BID 08/11/18 Torsemide 20 mg PO DAILY 08/11/18 Carvedilol Phosphate [Coreg Cr -] 20 mg PO DAILY #30 capsule.sa 08/14/18 Albuterol 0.083% Nebulizer Bibiana [Ventolin 0.083% Nebulizer Soln -] 1 amp NEB PRN PRN 08/16/18 Fluticasone/Vilanterol [Breo Ellipta 200-25 Mcg INH] 1 each IH DAILY 08/16/18 Insulin Glargine,Hum.rec.anlog [Lantus] 10 unit SQ HS 08/16/18 Prasugrel HCl [Effient] 10 mg PO DAILY 08/16/18 Anemia: Yes Asthma: Yes Cancer: No Cardiac Disorders: Yes (OR 2012, 1 stent, CAD, Pulmonary HTN) CVA: No COPD: No CHF: Yes (Diastolic) DVT: No Dementia: No Diabetes: Yes GI Disorders: No Disorders: Yes (CKD, elevated creatinine) HTN: Yes Hypercholesterolemia: Yes Liver Disease: No Seizures: No Thyroid Disease: Yes (hyper) - Surgical History Abdominal Surgery: No Appendectomy: No Cardiac Surgery: Yes (2 stents 04/29/2015) Cholecystectomy: No Lung Surgery: No Neurologic Surgery: No Orthopedic Surgery: Yes (right foot surgery as a child, left knee arthroscopy for meniscus tear) - Immunization History Immunization Up to Date: Yes - Suicide/Smoking/Psychosocial Hx Smoking Status: No Smoking History: Never smoked Have you smoked in the past 12 months: No Number of Cigarettes Smoked Daily: 0 Information on smoking cessation initiated: No Hx Alcohol Use: No Drug/Substance Use Hx: No Substance Use Type: None Hx Substance Use Treatment: No Review of Systems - Review of Systems Able to Perform ROS?: Yes Constitutional: Yes: Chills, Fever, Malaise, Weakness. No: Unexplained wgt Loss HEENTM: No: Nose Congestion, Throat Pain Respiratory: Yes: Shortness of Breath. No: Cough Cardiac (ROS): Yes: Edema, Palpitations. No: Chest Pain ABD/GI: No: Constipated, Diarrhea, Nausea, Vomiting : No: Burning, Dysuria Musculoskeletal: Yes: Neck Pain (unchanged chronic), Other (unchanged chronic shoulder pain). No: Back Pain Integumentary: No: Bruising, Rash Neurological: No: Headache, Numbness, Tingling, Weakness, Dizziness Endocrine: No: Unexplained Weight Gain, Unexplained Weight Loss *Physical Exam - Vital Signs Last Vital Signs Temp Pulse Resp BP Pulse Ox 100.5 F H 116 H 18 151/76 100 08/15/18 23:27 08/15/18 23:27 08/15/18 23:27 08/15/18 23:27 08/15/18 23:27 - Physical Exam General Appearance: Yes: Nourished, Obese, Other (appears tired and frustrated but answering appropriately, accompanied by family) HEENT: positive: EOMI, KERRI, Normal Voice, Hearing Grossly Normal, Other (no lid lag). negative: Scleral Icterus (R), Scleral Icterus (L), Nasal Congestion Neck: positive: Trachea midline, Supple. negative: Tender, Rigid Respiratory/Chest: positive: Lungs Clear, Normal Breath Sounds. negative: Respiratory Distress, Crackles, Rhonchi, Stridor, Wheezing Cardiovascular: positive: Regular Rhythm, Edema (2+ pitting BLE), Tachycardia. negative: JVD, Murmur Gastrointestinal/Abdominal: positive: Normal Bowel Sounds, Soft. negative: Tender, Organomegaly, Pulsatile Mass, Guarding Musculoskeletal: positive: Normal Inspection. negative: Decreased Range of Motion, Vertebral Tenderness Extremity: positive: Normal Capillary Refill, Normal Inspection, Normal Range of Motion, Swelling, Calf Tenderness (bilateral). negative: Tender, Cyanosis Integumentary: positive: Normal Color, Dry, Warm. negative: Erythema, Rash, Bruising Neurologic: positive: heart surgeon II-XII NML intact (grossly), Fully Oriented, Alert, Normal Mood/Affect, Normal Response, Motor Strength 5/5 (distal BLE full strength but patient unable to keep legs lifted 2/2 increased BLE edema), Other (no tremor). negative: Facial Droop, Numbness, Confused, Disoriented Heart Score/ECG Review #1 08/16/18 00:40 Sinus tachycardia, rate 125, normal axis, normal intervals, TWI in I, II, aVL, V456, also non-pathologic Q wave in III, no ST-T changes. These are all present on EKG dated 08/10/18. ED Treatment Course - LABORATORY CBC & Chemistry Diagram: 08/16/18 00:56 08/17/18 06:24 Medical Decision Making - Medical Decision Making 08/16/18 02:29 Adult female Pt with h/o thyrotoxicosis p/w tachycardia, SOB, fever. Initial Vital Signs Temp Pulse Resp BP Pulse Ox 100.5 F H 116 H 18 151/76 100 08/15/18 23:27 08/15/18 23:27 08/15/18 23:27 08/15/18 23:27 08/15/18 23:27 Exam: As noted in Physical Exam section. DDX IBNLT: thyroid storm, sepsis/shock (e.g. PNA, UTI, cellulitis, etc), tachyarrhythmia (e.g. VT, pSVT, re-entrant tachycardia, AF w/ RVR, AFL, MAT, VF) , PE, ischemia (ACS), anxiety/panic, hypoxia, hemorrhage/anemia (e.g. ectopic, heavy menstruation, GIB, hematuria), tamponade, etc. W/U and TX ordered: EKG, CXR IV, O2, Monitor, labs as noted below EKG: Reviewed; results as noted in ECG Review section. TX [facility]: [facility] Tests 08/16/18 08/16/18 08/16/18 00:56 00:56 00:56 WBC 4.1 RBC 3.71 Hgb 9.1 L Hct 28.1 L MCV 75.6 L MCH 24.6 L MCHC 32.5 RDW 14.0 Plt Count 211 MPV 7.7 Absolute Neuts (auto) 2.8 Neutrophils % 69.6 Lymphocytes % 14.4 Monocytes % 15.2 H Eosinophils % 0.2 D Basophils % 0.6 Nucleated RBC % 0 Sodium 134 L Potassium 4.9 Chloride 99 Carbon Dioxide 22 Anion Gap 13 BUN 111 H* Creatinine 3.2 H Creat Clearance w eGFR 14.63 Random Glucose 196 H Calcium 8.5 Phosphorus 5.1 H Magnesium 2.1 Total Bilirubin 0.5 AST 39 H ALT 31 Alkaline Phosphatase 134 H Troponin I 0.54 H B-Natriuretic Peptide 39762.92 H Total Protein 6.5 Albumin 2.7 L TSH 0.01 L Free T4 2.33 H Urine Color Urine Appearance Urine pH Ur Specific [place] Urine Protein Urine Glucose (UA) Urine Ketones Urine Blood Urine Nitrite Urine Bilirubin Urine Urobilinogen Ur Leukocyte Esterase 08/16/18 01:22 WBC RBC Hgb Hct MCV MCH MCHC RDW Plt Count MPV Absolute Neuts (auto) Neutrophils % Lymphocytes % Monocytes % Eosinophils % Basophils % Nucleated RBC % Sodium Potassium Chloride Carbon Dioxide Anion Gap BUN Creatinine Creat Clearance w eGFR Random Glucose Calcium Phosphorus Magnesium Total Bilirubin AST ALT Alkaline Phosphatase Troponin I B-Natriuretic Peptide Total Protein Albumin TSH Free T4 Urine Color Ltyellow Urine Appearance Clear Urine pH 5.0 Ur Specific [place] 1.011 Urine Protein Negative Urine Glucose (UA) Negative Urine Ketones Trace H Urine Blood Negative Urine Nitrite Negative Urine Bilirubin Negative Urine Urobilinogen Negative Ur Leukocyte Esterase Negative Reassessment: Exam unchanged. Vital Signs Temperature 99.3 F 08/16/18 02:45 Pulse Rate 120 H 08/16/18 02:45 Respiratory Rate 18 08/16/18 02:45 Blood Pressure 132/8 08/16/18 02:45 O2 Sat by Pulse Oximetry (%) 96 08/16/18 02:45 08/16/18 03:35 BNP elevated beyond the patient's prior baseline. CXR with cardiomegaly but nothing acute. Duplex BLE without e/o DVT. The Pt is unsafe for discharge at this time. She requires further hospital observation, workup, and treatment. Call placed to Dr. Bruner's answering service. Dr. Aguilera is pond sawyer and is paged. 08/16/18 04:[address] Aguilera who requests patient go to hospitalist. 08/16/18 04:55 I spoke with Pravin Geronimo. Patient admitted to [facility], Dr. Castano. Decision to Admit updated with Dr. Castano's name. *DC/Admit/Observation/Transfer Diagnosis at time of Disposition: Lymphedema CKD (chronic kidney disease) Qualifiers: Chronic kidney disease stage: unspecified stage Qualified Code(s): N18.9 - Chronic kidney disease, unspecified CHF exacerbation Qualifiers: Heart failure type: unspecified Qualified Code(s): I50.9 - Heart failure, unspecified Thyrotoxicosis Qualifiers: Thyrotoxicosis type: unspecified thyrotoxicosis type Thyrotoxic crisis or storm presence: with thyrotoxic crisis or storm Qualified Code(s): E05.91 - Thyrotoxicosis, unspecified with thyrotoxic crisis or storm - Discharge Dispostion Disposition: HOME Condition at time of disposition: Stable Decision to Admit order: Yes - Referrals - Patient Instructions - Post Discharge Activity
[2018-08-16 01:14] LABS: BASO % 0.6 % (0-2.0); EOS % 0.2 % (0-4.5); HEMATOCRIT 28.1 % (32.4-45.2); HEMOGLOBIN 9.1 GM/dL (10.7-15.3); LYMPH % 14.4 % (8-40); MCH 24.6 pg (25.7-33.7); MCHC 32.5 g/dl (32.0-36.0); MEAN CELL VOLUME 75.6 fl (80-96); MEAN PLT VOLUME 7.7 fl (7.5-11.1); MONO % 15.2 % (3.8-10.2); NEUT % 69.6 % (42.8-82.8); PLATELET COUNT 211 K/MM3 (134-434); RBC 3.71 M/mm3 (3.60-5.2); WHITE BLOOD COUNT 4.1 K/mm3 (4.0-10.0)
[2018-08-16 01:33] LABS: ALBUMIN 2.7 g/dl (3.4-5.0); ANION GAP 13 MMOL/L (8-16); CALCIUM 8.5 mg/dL (8.5-10.1); CHLORIDE 99 mmol/L (98-107); CO2 22 mmol/L (21-32); CREATININE 3.2 mg/dL (0.55-1.3); GLUCOSE,RANDOM 196 mg/dL (74-106); MAGNESIUM 2.1 mg/dL (1.8-2.4); PHOSPHOROUS 5.1 mg/dL (2.5-4.9); POTASSIUM 4.9 mmol/L (3.5-5.1); SGOT/AST 39 U/L (15-37); SGPT/ALT 31 U/L (13-61); SODIUM 134 mmol/L (136-145)
[2018-08-16 01:43] LABS: URINE APPEARANCE CLEAR; URINE BILIRUBIN NEGATIVE (<2.0 mg/dL); URINE COLOR LTYELLOW; URINE GLUCOSE (UA) NEGATIVE (NEGATIVE); URINE KETONE TRACE (NEGATIVE); URINE LEUK ESTERASE NEGATIVE (NEGATIVE); URINE NITRITE NEGATIVE (NEGATIVE); URINE PROTEIN NEGATIVE (NEGATIVE); URINE UROBILINOGEN NEGATIVE mg/dL (0.2-1.0)
[2018-08-16 01:50] LABS: ALK PHOS 134 U/L (45-117); BILIRUBIN,TOTAL 0.5 mg/dL (0.2-1); N-TERMINAL BNP 47076.92 pg/ml (5-125); TOT PROT 6.5 g/dl (6.4-8.2)
--- NOTE | 2018-08-16 01:51 | PDOC ---
Attending Attestation - Resident Resident Name: Virginia Weinstein - ED Attending Attestation I have performed the following: I have examined & evaluated the patient, The case was reviewed & discussed with the resident, I agree w/resident's findings & plan, Exceptions are as noted - HPI HPI: 08/16/18 01:49 [age] yo F with h/o thyrotoxicosis, DM CHF pulm HTN, afib, CAD asthma recently admitted from 08/10- 08/14 here today with c/o bilateral leg edema. also c/o sob and palpitations. still taking ptu, was scheduled for thyroid ablation for 08/16. no fc. no h/o pe or dvt. unable to ambulate due to severe swelling. - Physicial Exam PE: 08/16/18 05:53 awake alert lungs clear bilaterally heart reg tachycardia no mrg abdsoft nt obese.ext wwp 1 + pitting edema bilaterally. nuoero alert oriented x 3 - Medical Decision Making 08/16/18 01:51 differential infection chf anemia, worsening renal failure. plan duplex legs. cxr ekg labs likely readmit to tele obs. ua r/o uti.
[2018-08-16] MEDS ORDERED: ACETAMINOPHEN 1000 MG/100 ML VIAL (NON FORMULARY) IVPB ONE (01:53)
[2018-08-16 01:58] LABS: BLOOD UREA NITROGEN 111 mg/dL (7-18)
[2018-08-16] MEDS ORDERED: ACETAMINOPHEN INJECTION 100 ML IVPB ONE (02:09)
--- NOTE | 2018-08-16 04:53 | PN ---
Teaching Attending Note Name of Resident: Charmaine Banda ATTENDING PHYSICIAN STATEMENT I saw and evaluated the patient. I reviewed the resident's note and discussed the case with the resident. I agree with the resident's findings and plan as documented. SUBJECTIVE: Patient is a 63 year old woman with history of Insulin-treated DM, HTN, HLD, CAD and [place] s/p stent and CABG, A-fib, diastolic CHF, pulmonary HTN, asthma, KATINA , hyperthyroidism, bilateral eye surgery, chronic lymphedema, CKD, anemia, and anxiety who presents with SOB, rapid palpitations, fever, worsening chronic BLE swelling, BLE tenderness, and inability to ambulate because her swelling has gotten so severe. She was admitted here between 08/10 and 08/15/18 (discharged just the same day of arrival to the ER today). She is scheduled for a radio- iodide thyroid ablation on 08/16/18. She has been taking her PTU. She additionally has unchanged chronic right neck and right shoulder pain. She denies any new cough, abdominal pain, headache, or focal weakness. OBJECTIVE: Alert but very weak Vital Signs Period Temp Pulse Resp BP Sys/Shankar Pulse Ox Last 24 Hr 99.3 F-100.5 F 116-120 18-18 132-151/8-76 96-100 HEENT: No Jaundice, eye redness or discharge, PERRLA, EOMI. Normocephalic, atraumatic. External ears are normal and hearing is grossly intact. No nasal discharge. Neck: Supple, nontender. No palpable adenopathy or thyromegaly. No JVD Chest: Good effort. Fine rales in right lung base. Clear to percussion. Heart: Regular. No S3, rub or murmur Abdomen: Not distended, soft, nontender and no HSM. No rebound or guarding. Normoactive bowel sounds. Ext: Peripheral pulses intact. Leg edema - minimally pitting. Skin: Warm and dry. No petechiae, rash or ecchymosis. Neuro: Alert. Oriented x3. CN 2-12 grossly intact. Sensation grossly intact in all four extremities and DTR are symmetric. Home Medications Medication Instructions Recorded Aspirin [ASA -] 81 mg PO DAILY #1 tab 03/06/13 Albuterol 0.083% Nebulizer Bibiana 1 neb NEB QID 09/14/16 [Ventolin 0.083% Nebulizer Soln -] Insulin Glargine,Hum.rec.anlog 10 units SQ HS PRN 04/29/17 [Lantus (10mL VIAL) -] Insulin Lispro [Humalog] 100 unit SQ PRN 04/29/17 clonazePAM [KlonoPIN] 0.5 mg PO QID PRN 06/13/17 Ezetimibe [Zetia -] 10 mg PO Q48H 30 Days #30 tablet 12/20/17 Nitroglycerin Patch [Nitro-Dur 0.2 mg TD DAILY #30 patch.td24 12/20/17 Patch -] Rosuvastatin [Crestor -] 10 mg PO HS #30 tablet 04/15/18 Brimonidine Tartrate [Alphagan P 3 drop OU Q8H 05/27/18 0.1% -] Latanoprost 0.005% Eye Drops 1 drop OU DAILY 05/27/18 [Xalatan 0.005% Eye Drops -] hydrALAZINE HCL [Apresoline -] 37.5 mg PO TID #135 tablet 06/04/18 Acetaminophen [Tylenol] 650 mg PO Q4H PRN 08/11/18 Ferrous Sulfate [Feosol] 28 mg PO BID 08/11/18 Torsemide 20 mg PO DAILY 08/11/18 Carvedilol Phosphate [Coreg Cr -] 20 mg PO DAILY #30 capsule.sa 08/14/18 Albuterol 0.083% Nebulizer Bibiana 1 amp NEB PRN PRN 08/16/18 [Ventolin 0.083% Nebulizer Soln -] Abnormal Lab Results 08/16/18 08/16/18 08/16/18 00:56 00:56 00:56 Hgb 9.1 L Hct 28.1 L MCV 75.6 L MCH 24.6 L Monocytes % 15.2 H Sodium 134 L BUN 111 H* Creatinine 3.2 H Random Glucose 196 H Phosphorus 5.1 H AST 39 H Alkaline Phosphatase 134 H Troponin I 0.54 H B-Natriuretic Peptide 10001.92 H Albumin 2.7 L TSH 0.01 L Free T4 2.33 H Urine Ketones 08/16/18 01:22 Hgb Hct MCV MCH Monocytes % Sodium BUN Creatinine Random Glucose Phosphorus AST Alkaline Phosphatase Troponin I B-Natriuretic Peptide Albumin TSH Free T4 Urine Ketones Trace H ASSESSMENT AND PLAN: 1. CHF Exacerbation and effects of thyrotoxicosis - CXR shows cardiomegaly with poor inspiration. ECHO from 12/18/17 shows low normal LVEF (51.9%). With advanced CKD, her current dose of PO diuretics is insufficient to mobilize edema fluid. An expected trade-off in patients like her with cardiorenal disease is that aggressive CHF therapy to improve her quality of life will lead to worsening azotemia. Will give IV lasix 60-100mg - determine what dose will lead to significant diuresis and get DAILY WEIGHT. Correct low MCV anemia with IV iron and procrit and proceed with planned ablation treatment for thyrotoxicosis - these two measures should lead to improvement in her general condition and improvement in her quality of life. If not, then consider a port for outpatient IV lasix, or begin once or twice weekly dialysis ultrafiltration. Global weakness is likely partly due to thyrotoxicosis. No source of infection to explain T of 100.5. Got one dose of tylenol in the ER. Will with hold tylenol and do sepsis work up if she spikes again. No indication for antibiotics at this time. Will get CT of her neck and right shoulder - Ortho consult. 2. DM - For now, we will hold the home diabetes drugs and implement sliding scale insulin regimen. Provide comprehensive diabetes care with patient teaching and counseling about the importance of euglycemia, eye care and foot care. 3. CKD - Though she has many risk factors, the cause of her CKD is unclear. Consult nephrology and avoid nephrotoxic agents such as NSAIDS, aminoglycosides , contrast dyes and certain Alternative medicine products. 4. Low MCV Anemia - Consider colonoscopy once stable. Do basic anemia work up including serial stool guaiacs, reticulocyte count and iron studies. Would benefit from Procrit therapy once iron replete. 5. Obesity - Will provide patient all the necessary assistance , counseling and positive reinforcement to facilitate weight loss. Consult lead java developer architect. 6. DVT prophylaxis - Heparin 5000u sq tid. 7. Advance directives - Full code
[2018-08-16] MEDS ORDERED: HEPARIN NA (PORCINE) 5,000 UNITS/ML 1ML VIAL SQ SCH ×2 (06:00→06:44)
--- NOTE | 2018-08-16 06:31 | HP ---
CHIEF COMPLAINT: B/L LE edema and decreased ambulation PCP: Dr Bruner HISTORY OF PRESENT ILLNESS: 63 y/o female with PMH of DM, HTN, HLD, TN in 2012 s/p stents, CABG, Afib, asthma, hyperthyroidism, CKD, anemia presents to the ED with worsening B/L LE edema , shortness of breath and rapid palpitations. She states that her breathing is has been getting worse the past few days and she has not been able to ambulate as much as she usually does. Of note, patient was admitted to [facility] from 08/10-08/15 with similar complaints. She was taking PTU for her hyperthyroidsim, however, it was causing her hepatotoxicity so she stopped taking it (though patient endorsed taking it yesterday). Patient is supposed to be scheduled to have an ablation for her thyrotoxicosis today. She denies any N/ V fevers or chills, however endorses that her appetite has decreased over the past few days, ER course was notable for: (1) Hgb 9.1, Cr 3.2, TSH 0.01, troponin 0.54 (2) BNP 68571 (3) vascular study pending to rule out DVT Recent Travel: none PAST MEDICAL HISTORY: see above PAST SURGICAL HISTORY: CABG, 2 stents, L knee arthroscopy in august Social History: Smoking: denies Alcohol:denies Drugs: denies Family History: Allergies Penicillins Allergy (Intermediate, Verified 08/10/18 12:22) Hives Iodinated Contrast- Oral and IV Dye [Iodinated Contrast Media - IV Dye] Allergy (Verified 08/10/18 12:22) tiotropium [From Spiriva with HandiHaler] Adverse Reaction (Verified 08/10/18 12 :22) HOME MEDICATIONS: Home Medications Medication Instructions Recorded Aspirin [ASA -] 81 mg PO DAILY #1 tab 03/06/13 Albuterol 0.083% Nebulizer Bibiana 1 neb NEB QID 09/14/16 [Ventolin 0.083% Nebulizer Soln -] Insulin Glargine,Hum.rec.anlog 10 units SQ HS PRN 04/29/17 [Lantus (10mL VIAL) -] Insulin Lispro [Humalog] 100 unit SQ PRN 04/29/17 clonazePAM [KlonoPIN] 0.5 mg PO QID PRN 06/13/17 Ezetimibe [Zetia -] 10 mg PO Q48H 30 Days #30 tablet 12/20/17 Nitroglycerin Patch [Nitro-Dur 0.2 mg TD DAILY #30 patch.td24 12/20/17 Patch -] Rosuvastatin [Crestor -] 10 mg PO HS #30 tablet 04/15/18 Brimonidine Tartrate [Alphagan P 3 drop OU Q8H 05/27/18 0.1% -] Latanoprost 0.005% Eye Drops 1 drop OU DAILY 05/27/18 [Xalatan 0.005% Eye Drops -] hydrALAZINE HCL [Apresoline -] 37.5 mg PO TID #135 tablet 06/04/18 Acetaminophen [Tylenol] 650 mg PO Q4H PRN 08/11/18 Ferrous Sulfate [Feosol] 28 mg PO BID 08/11/18 Torsemide 20 mg PO DAILY 08/11/18 Carvedilol Phosphate [Coreg Cr -] 20 mg PO DAILY #30 capsule.sa 08/14/18 Albuterol 0.083% Nebulizer Bibiana 1 amp NEB PRN PRN 08/16/18 [Ventolin 0.083% Nebulizer Soln -] REVIEW OF SYSTEMS CONSTITUTIONAL: Present:generalized weakness, malaise, Absent: fever, chills, diaphoresis, loss of appetite, weight change HEENT: Absent: rhinorrhea, nasal congestion, throat pain, throat swelling, difficulty swallowing, mouth swelling, ear pain, eye pain, visual changes CARDIOVASCULAR: Present:palpitations Absent: chest pain, syncope, irregular heart rate, lightheadedness, peripheral edema RESPIRATORY: Present: shortness of breath, dyspnea with exertion Absent: cough, , orthopnea, wheezing, stridor, hemoptysis GASTROINTESTINAL: Absent: abdominal pain, abdominal distension, nausea, vomiting, diarrhea, constipation, melena, hematochezia GENITOURINARY: Absent: dysuria, frequency, urgency, hesitancy, hematuria, flank pain, genital pain MUSCULOSKELETAL: Present: leg swelling Absent: myalgia, arthralgia, joint swelling, back pain, neck pain SKIN: Absent: rash, itching, pallor HEMATOLOGIC/IMMUNOLOGIC: Absent: easy bleeding, easy bruising, lymphadenopathy, frequent infections ENDOCRINE: Absent: unexplained weight gain, unexplained weight loss, heat intolerance, cold intolerance NEUROLOGIC: Absent: headache, focal weakness or paresthesias, dizziness, unsteady gait, seizure, mental status changes, bladder or bowel incontinence PSYCHIATRIC: Absent: anxiety, depression, suicidal or homicidal ideation, hallucinations. PHYSICAL EXAMINATION Vital Signs - 24 hr 08/15/18 08/16/18 08/16/18 23:27 02:45 05:54 Temperature 100.5 F H 99.3 F 98.3 F Pulse Rate 116 H Pulse Rate [ 120 H 116 H Left Radial] Respiratory 18 18 16 Rate Blood Pressure 151/76 Blood Pressure 132/8 133/78 [Left Arm] O2 Sat by Pulse 100 96 97 Oximetry (%) GENERAL: lethargic but arousable, in no acute distress. NECK: no JVD appreciated LUNGS:CTA B/L; no rales, rhonchi, wheezing HEART:tachycardic, irregular, normal S1 and S2 without murmur, rub or gallop. ABDOMEN: Soft, nontender, not distended, normoactive bowel sounds, no guarding, no rebound, no masses. No hepatomegaly or splenomegaly. MUSCULOSKELETAL: Normal range of motion at all joints. No bony deformities or tenderness. No CVA tenderness. EXTREMITIES:. warm; well-perfused, 3+ pitting LE edema B/L NEUROLOGICAL: Cranial nerves II-XII intact. Normal speech. Normal gait. PSYCHIATRIC: Cooperative. Good eye contact. Appropriate mood and affect. SKIN: Warm, dry, normal turgor, no rashes or lesions noted, normal capillary refill. Laboratory Results - last 24 hr 08/16/18 08/16/18 08/16/18 00:56 00:56 00:56 WBC 4.1 RBC 3.71 Hgb 9.1 L Hct 28.1 L MCV 75.6 L MCH 24.6 L MCHC 32.5 RDW 14.0 Plt Count 211 MPV 7.7 Absolute Neuts (auto) 2.8 Neutrophils % 69.6 Lymphocytes % 14.4 Monocytes % 15.2 H Eosinophils % 0.2 D Basophils % 0.6 Nucleated RBC % 0 Sodium 134 L Potassium 4.9 Chloride 99 Carbon Dioxide 22 Anion Gap 13 BUN 111 H* Creatinine 3.2 H Creat Clearance w eGFR 14.63 Random Glucose 196 H Calcium 8.5 Phosphorus 5.1 H Magnesium 2.1 Total Bilirubin 0.5 AST 39 H ALT 31 Alkaline Phosphatase 134 H Troponin I 0.54 H B-Natriuretic Peptide 98186.92 H Total Protein 6.5 Albumin 2.7 L TSH 0.01 L Free T4 2.33 H Urine Color Urine Appearance Urine pH Ur Specific [place] Urine Protein Urine Glucose (UA) Urine Ketones Urine Blood Urine Nitrite Urine Bilirubin Urine Urobilinogen Ur Leukocyte Esterase 08/16/18 01:22 WBC RBC Hgb Hct MCV MCH MCHC RDW Plt Count MPV Absolute Neuts (auto) Neutrophils % Lymphocytes % Monocytes % Eosinophils % Basophils % Nucleated RBC % Sodium Potassium Chloride Carbon Dioxide Anion Gap BUN Creatinine Creat Clearance w eGFR Random Glucose Calcium Phosphorus Magnesium Total Bilirubin AST ALT Alkaline Phosphatase Troponin I B-Natriuretic Peptide Total Protein Albumin TSH Free T4 Urine Color Ltyellow Urine Appearance Clear Urine pH 5.0 Ur Specific [place] 1.011 Urine Protein Negative Urine Glucose (UA) Negative Urine Ketones Trace H Urine Blood Negative Urine Nitrite Negative Urine Bilirubin Negative Urine Urobilinogen Negative Ur Leukocyte Esterase Negative ASSESSMENT/PLAN: 63 y/o female with extensive PMH presents to the ED one day after being discharged with complaints of worsening B/L LE edema in addition to rapid palpitations and increased dyspnea. #CHF exacerbation - patient needs increased diuresis -IV lasix 80 daily -strict I's and O's -monitor daily weights -echo pending -cardiology consulted # Hyperthyroidism/thyrotoxicosis patient supposed to be going for radio-iodine ablation today -Dr Gonsales has been consulted -unclear last time patient took PTU -T3 level pending -patient had low grade fever possibly 2/2 thyrotoxicosis- will monitor for now #Elevated Troponin -patient had elevated troponin of 0.54, which is the highest its been in years -trending troponin # CKD patients Cr on admission was 3.2; baseline is 2.5-3 -nephrology consulted -avoid nephrotoxic drugs -monitor urine output and CMP #Afib -not on AC #HTN -c/w home meds # CAD - c/w dual antiplatelet therapy of ASA and prasurgrel #HLD -c/w home meds #anemia patients baseline Hgb is 9-10 -patients Hgb on admission was 9.1 -iron and retic studies pending #DM -started ISS -holding home DM meds -BGMS DVT Prophylaxis: heparin SQ F/E/N not on standing fluids replete electrolytes when needed diabetic diet dispo: telemetry Visit type - Emergency Visit Emergency Visit: Yes ED Registration Date: 08/16/18 Care time: The patient presented to the Emergency Department on the above date and was hospitalized for further evaluation of their emergent condition. - New Patient This patient is new to me today: Yes Date on this admission: 08/16/18 - Critical Care Critical Care patient: No Hospitalist Screening - Colonoscopy Questionnaire Colonoscopy Questionnaire: Colonoscopy Questionnaire - Patient: 50 - 75 years old and never had a screening colonoscopy: Unknown History of colon or rectal polyps, or CA: Unknown History of IBD, Crohn's disease or UC: Unknown History of abdominal radiation therapy as a child: Unknown - Relative: 1 with colon or rectal CA, or polyps at age 60 or younger: Unknown Colon or rectal CA diagnosed at age 45 or younger: Unknown Multiple relatives with colon or rectal CA: Unknown - Outcome: Screening Result: Negative Screen
[2018-08-16] MEDS ORDERED: PT OWN MED DRAWER 7, Y5N ONE ×10 (09:03→21:42)
[2018-08-16] MEDS: INSULIN SLIDING SCALE (NOVOLOG) 1 VIAL SQ SCH ×4 (09:16→21:55)
--- NOTE | 2018-08-16 09:30 | CON.CARD ---
Cardiology Consult (text) - Consultation Consultation Note: - Consultation Consultation Note: Chief Complaint: le edema, general weakness History of Present Illness: 63 yo female hx hyperthyroidism with associated tachycardia, palpitations, unintentional wt loss, acute on chronic labile HTN with mult med intolerances, mildly decompensated diast chf, and new LE edema (out of proportion to the degree of CHF), p/w feeling chills, neck pain and pains all over body. She was admitted for similar in addition to le edema and shortness of breath 08/10-08/15. Her hyperthyroid remains problematic and was supposed to have thyroid ablation procedure this week but postponed. No sob, cp palps loc pnd orthopnea. Sees dr johansen for cardio. Was discharged yesterday and returned in the evening with neck and body pain, chills. of note she had chills and fever in AM yesterday, was discharged home. Edema has been stable for voer one week, was diuresed with lasix 80 mg IV daily. Shortness of breath has been stable since March, not worse today. In the ER BNP 72170, trop 0.54, BUN 111, Cr 3.2. PMH: CAD, MD, PCIs diast chf KATINA labile HTN DM HPL chronic anemia morbid obesity - Past Medical History Cardio/Vascular: Yes: AFIB, CAD, CHF, HTN, Hyperlipdemia, MD, Mitral Insufficiency, Pulmonary Hypertension Pulmonary: Yes: Sleep Apnea Renal/: Yes: Renal Failure ...: No Endocrine: Yes: Diabetes Mellitus - Past Surgical History Past Surgical History: Yes: Stent - Alcohol/Substance Use Hx Alcohol Use: No - Smoking History Smoking history: Never smoked Have you smoked in the past 12 months: No Aproximately how many cigarettes per day: 0 Home Medications - Allergies Allergies/Adverse Reactions: Allergies Allergy/AdvReac Type Severity Reaction Status Date / Time Penicillins Allergy Intermediate Hives Verified 08/10/18 12:22 Iodinated Contrast- Oral and Allergy Verified 08/10/18 12:22 IV Dye [Iodinated Contrast Media - IV Dye] tiotropium AdvReac Verified 08/10/18 12:22 [From Spiriva with HandiHaler] - Home Medications Home Medications Medication Instructions Recorded Aspirin [ASA -] 81 mg PO DAILY #1 tab 03/06/13 Albuterol 0.083% Nebulizer Bibiana 1 neb NEB QID 09/14/16 [Ventolin 0.083% Nebulizer Soln -] Insulin Glargine,Hum.rec.anlog 10 units SQ HS PRN 04/29/17 [Lantus (10mL VIAL) -] Insulin Lispro [Humalog] 100 unit SQ PRN 04/29/17 clonazePAM [KlonoPIN] 0.5 mg PO QID PRN 06/13/17 Ezetimibe [Zetia -] 10 mg PO Q48H 30 Days #30 tablet 12/20/17 Nitroglycerin Patch [Nitro-Dur 0.2 mg TD DAILY #30 patch.td24 12/20/17 Patch -] Rosuvastatin [Crestor -] 10 mg PO HS #30 tablet 04/15/18 Brimonidine Tartrate [Alphagan P 3 drop OU Q8H 05/27/18 0.1% -] Latanoprost 0.005% Eye Drops 1 drop OU DAILY 05/27/18 [Xalatan 0.005% Eye Drops -] hydrALAZINE HCL [Apresoline -] 37.5 mg PO TID #135 tablet 06/04/18 Acetaminophen [Tylenol] 650 mg PO Q4H PRN 08/11/18 Ferrous Sulfate [Feosol] 28 mg PO BID 08/11/18 Torsemide 20 mg PO DAILY 08/11/18 Carvedilol Phosphate [Coreg Cr -] 20 mg PO DAILY #30 capsule.sa 08/14/18 Albuterol 0.083% Nebulizer Bibiana 1 amp NEB PRN PRN 08/16/18 [Ventolin 0.083% Nebulizer Soln -] Family Disease History - Family Disease History Family History: Denies (no known cmp) Review of Systems - Review of Systems Constitutional: denies: Chills, Fever Eyes: denies: Eye Pain HENT: denies: Nasal Congestion Neck: denies: Stiffness Cardiovascular: reports: Edema Respiratory: reports: Wheezing. denies: Orthopnea, PND Gastrointestinal: denies: Diarrhea, Rectal Bleeding Genitourinary: denies: Burning, Hematuria Musculoskeletal: denies: Muscle Pain Integumentary: denies: Rash Neurological: denies: Numbness, Seizure, Syncope Endocrine: denies: Excessive Sweating Hematology/Lymphatic: denies: Excessive Bleeding Vital Signs: Vital Signs Period Temp Pulse Resp BP Sys/Shankar Pulse Ox Last 24 Hr 98.3 F-100.5 F 116-120 16-18 132-151/8-78 96-100 Constitutional: Yes: Well Nourished, No Distress Eyes: No: Sclera Icterus HENT: No: Nasal Congestion Neck: No: Decreased ROM Respiratory: Yes: CTA Bilaterally, Wheezes. No: Accessory Muscle Use, Rales Gastrointestinal: Yes: Normal Bowel Sounds. No: Distention, Hepatomegaly, Palpable Mass, Tenderness Cardiovascular: Yes: Regular Rate and Rhythm JVD: Yes Carotid Bruit: No PMI: Non-Displaced Heart Sounds: Yes: S1, S2. No: Gallop Murmur: No: Systolic Murmur, Diastolic Murmur Musculoskeletal: Yes: Other (No kyphosis) Extremities: No: Cool, Cyanosis Edema: Yes 1+ bilat Peripheral Pulses: 2+ Left Carotid, 2+ Right Carotid, 2+ Left Doralis Pedis, 2+ Right Dorsalis Pedis Integumentary: No: Jaundice Neurological: Yes: Alert, Oriented (x3) Psychiatric: No: Agitated - Other Data Labs, Other Data: Laboratory Last Values WBC 4.1 K/mm3 (4.0-10.0) 08/16/18 00:56 RBC 3.71 M/mm3 (3.60-5.2) 08/16/18 00:56 Hgb 9.1 GM/dL (10.7-15.3) L 08/16/18 00:56 Hct 28.1 % (32.4-45.2) L 08/16/18 00:56 MCV 75.6 fl (80-96) L 08/16/18 00:56 MCH 24.6 pg (25.7-33.7) L 18 00:56 MCHC 32.5 g/dl (32.0-36.0) 08/16/18 00:56 RDW 14.0 % (11.6-15.6) 18 00:56 Plt Count 211 K/MM3 (134-434) 18 00:56 MPV 7.7 fl (7.5-11.1) 18 00:56 Absolute Neuts (auto) 2.8 K/mm3 (1.5-8.0) 08/16/18 00:56 Neutrophils % 69.6 % (42.8-82.8) 08/16/18 00:56 Lymphocytes % 14.4 % (8-40) 08/16/18 00:56 Monocytes % 15.2 % (3.8-10.2) H 08/16/18 00:56 Eosinophils % 0.2 % (0-4.5) D 08/16/18 00:56 Basophils % 0.6 % (0-2.0) 08/16/18 00:56 Nucleated RBC % 0 % (0-0) 08/16/18 00:56 Retic Count 1.65 % (0.5-1.5) H D 08/16/18 05:30 Sodium 134 mmol/L (136-145) L 08/16/18 00:56 Potassium 4.9 mmol/L (3.5-5.1) 08/16/18 00:56 Chloride 99 mmol/L (98-107) 08/16/18 00:56 Carbon Dioxide 22 mmol/L (21-32) 08/16/18 00:56 Anion Gap 13 MMOL/L (8-16) 08/16/18 00:56 BUN 111 mg/dL (7-18) H* 08/16/18 00:56 Creatinine 3.2 mg/dL (0.55-1.3) H 08/16/18 00:56 Creat Clearance w eGFR 14.63 (>60) 08/16/18 00:56 Random Glucose 196 mg/dL (74-106) H 08/16/18 00:56 Calcium 8.5 mg/dL (8.5-10.1) 08/16/18 00:56 Phosphorus 5.1 mg/dL (2.5-4.9) H 08/16/18 00:56 Magnesium 2.1 mg/dL (1.8-2.4) 08/16/18 00:56 Total Bilirubin 0.5 mg/dL (0.2-1) 08/16/18 00:56 AST 39 U/L (15-37) H 08/16/18 00:56 ALT 31 U/L (13-61) 08/16/18 00:56 Alkaline Phosphatase 134 U/L (45-117) H 08/16/18 00:56 Troponin I 0.53 ng/ml (0.00-0.05) H 08/16/18 08:16 B-Natriuretic Peptide 13460.92 pg/ml (5-125) H 08/16/18 00:56 Total Protein 6.5 g/dl (6.4-8.2) 08/16/18 00:56 Albumin 2.7 g/dl (3.4-5.0) L 08/16/18 00:56 TSH 0.01 uIU/ml (0.358-3.74) L 08/16/18 00:56 Free T4 2.33 ng/dl (0.76-1.46) H 08/16/18 00:56 Urine Color Ltyellow 08/16/18 01:22 Urine Appearance Clear 08/16/18 01:22 Urine pH 5.0 (5.0-8.0) 08/16/18 01:22 Ur Specific [place] 1.011 (1.001-1.035) 08/16/18 01:22 Urine Protein Negative (NEGATIVE) 08/16/18 01:22 Urine Glucose (UA) Negative (NEGATIVE) 08/16/18 01:22 Urine Ketones Trace (NEGATIVE) H 08/16/18 01:22 Urine Blood Negative (NEGATIVE) 08/16/18 01:22 Urine Nitrite Negative (NEGATIVE) 08/16/18 01:22 Urine Bilirubin Negative (<2.0 mg/dL) 08/16/18 01:22 Urine Urobilinogen Negative mg/dL (0.2-1.0) 08/16/18 01:22 Ur Leukocyte Esterase Negative (NEGATIVE) 08/16/18 01:22 ECG--sinus tach, nl intervals, nonspecific ST-T changes [facility] 2014: unchanged 70-80% distal RCA lesion. patent mLAD stent. 80-90% pLCX-- Prom[facility] KAREN Echo 12/2016: TDS. nl LV size/EF. mild LVH. grade 2 d.d., hi E/e' = high LAP. nl RV. mild LAE. mild-mod MR, mod TR. mild pHTN (46 mmHg). tele: sinus tachy 110s a/p: hyperthyroidism, tachycardia - not controlled, plan is for ablation with Dr. Gonsales - likely etiology for tachycardia as well, continue coreg for now. has had prior intolerance to other beta blockers chronic diast CHF: -exacerbated recently by uncontrolled hyperthyroidism with tachycardia and htn. discharged yesterday with dry wt 212 lbs, still has edema, weight 214 lbs today - per patient edema is the same and she is not short f breath - had been receiving lasix 80 mg IV daily during most recent admission, plan was dc on torsemide 80 mg daily -likely le edema 2/2 venous insufficiency worsened in setting of hyperthyroidism - echo pending today - BUN/Cr remains elevated - would avoid aggressive diuresis, continue lasix 80 mg IV daily - address hyperthyroidism as above Elevated troponin - 0.54->0.53 on admission, recently 0.4 during admission - flat trend likely in setting of CKD h/o HF - EKG stable compared to prior, clinical picture less c/w ACS paroxysmal atrial tach, sinus tach, palpitations, thyrotoxicosis: -remote h/o intolerance to metoprolol, atenolol, propranolol (pt cannot recall s.e.s then) -continue home coreg labile HTN: -prior reasonable control, worsened in setting of hyperthyroidism -mult med intolerances in past -cont current meds, address hyperthyroidism as above CAD, prior NSTEMI/PCI: -cont home DAPT (aspirin/effient), statin with zetia, bb, nitro patch OBI on CKD: -baseline creat runs 2.5-2.8; more recently 3-3.1 -bun/cr stable however would avoid aggressive diuresis, lasix 80 mg IV daily for now as above HPL: -cont current meds anemia: -chronic. baseline hgb 9-10 -stable counts here
[2018-08-16] MEDS ORDERED: FUROSEMIDE 40 MG/4 ML INJECTABLE VIAL IVPUSH SCH (10:00)
[2018-08-16] MEDS: CARVEDILOL PHOSPHATE CR 20 MG CAPSULE (FP) PO SCH (10:36)
[2018-08-16] MEDS: ASPIRIN 81 MG CHEWABLE TABLETS PO SCH (10:36)
--- NOTE | 2018-08-16 11:39 | PN ---
Teaching Attending Note Name of Resident: Myron Preston ATTENDING PHYSICIAN STATEMENT I saw and evaluated the patient. I reviewed the resident's note and discussed the case with the resident. I agree with the resident's findings and plan as documented. SUBJECTIVE:states her breathing has improved however having significant R neck pain radiating to the shoulder. hurts to look to the R. some nausea but no abdominal pain. denies CP, SOB, fever, chills, V/C/D. states she had this pain prior to leaving the hospital yesterday. claims medication compliance. was on coreg for rate control and on torsemide for diuretics OBJECTIVE: Last Vital Signs Temp Pulse Resp BP Pulse Ox 98.3 F 116 H 16 133/78 97 08/16/18 05:54 08/16/18 05:54 08/16/18 05:54 08/16/18 05:54 08/16/18 05:54 Intake & Output 08/13/18 08/14/18 08/15/18 08/16/18 23:59 23:59 23:59 23:59 Weight 225 lb 214 lb General NAD HEENT R nodularity of the R IJ. + tender. no restricted ROM of the head. + muscle spasm of the R scapula. full ROM of the R shoulder +clicking of the R shoulder CV S1 S2 tachy Lungs CTA B/L no wheezing/rales/rhonchi Abdomen soft NT/ND Extremities 2+ pitting edema B/L ASSESSMENT AND PLAN: 63yo F wtih extensive PMH was discharged from [facility] for CHF exacerbation who returned on day of discharge for SOB and R neck pain 1. Acute on chronic diastolic CHF exacerbation- legs are slightly more edematous than baseline. responded to lasix 80mg IV x1 yesterday receiving 2nd dose now. she is increased 2 lbs from baseline. will d/w cardio about adjusting diuretics as patient is very sensitive to medications. will need to monitor renal function closely. daily weights. echo pending 2. SOB- more likely due to uncontrolled sinus tachycardia and possible acute on chronic diastolic CHF. pt responded well to coreg in the past. ultimately will need control of her thyroid function to improve overall cardiac control. cont cardiac monitoring. 3. R neck pain-concern for clot however with underlying muscle spams. will obtain u/s to r/o. flexeril 5mg x1 and monitor for response 4. Tropinemia- baseline elevated troponis likely demand from tachycardia with underlying CKD. no CP. low suspicion for ACS. does not require ischemic eval at this time 5. Hyperthroid- was scheduled for ablation today. endo consulted. will see if can be performed on this hospital stay 6. Fever- Tm 100.5. UA and CXR negative for infection. likley stress response. would hold abx at this time. sepsis workup if temp >101 7. CKD- at baseline Cr 3.1. will need to monitor closely with diuretic therapy. renal on board 8. Afib- not on anticoagulation. 9. DM- iss and bgm 10. CAD s/p CABG- on asa 11. DVT ppx- Hep sq
[2018-08-16 12:17] VITALS: BMI 35.6
[2018-08-16] MEDS ORDERED: CYCLOBENZAPRINE HCL 5 MG TABLET PO ONE (12:52)
[2018-08-16] MEDS ORDERED: CYCLOBENZAPRINE HCL 10 MG TABLET (FP) PO ONE (13:00)
--- NOTE | 2018-08-16 13:02 | PN ---
Physical Exam: SUBJECTIVE: Patient seen and examined this AM. She is currently denying any shortness of breath and her main complaints are increased pain in her legs and in her right shoulder. Says her legs are also more swollen than at baseline. OBJECTIVE: Vital Signs Period Temp Pulse Resp BP Sys/Shankar Pulse Ox Last 24 Hr 97.9 F-100.5 F 116-120 16-20 130-151/8-78 96-100 GENERAL: A&O, no acute distress HEAD: Normocephalic, atraumatic. EYES: PERRL, no scleral icterus EARS, NOSE, THROAT: oropharynx clear without exudates. Moist mucous membranes. NECK: supple without lymphadenopathy, JVD noted on right, hepatojugular reflex not present LUNGS: CTA b/l, no crackles or wheezes HEART: Tachycardic without audible murmur ABDOMEN: Soft, obeses, nontender to palpation, normoactive bowel sounds MUSCULOSKELETAL: tenderness on shoulder and back palpation. EXTREMITIES: 2+ pulses, warm, well-perfused. 2+ pitting edema in LE b/l NEUROLOGICAL: Cranial nerves II-XII grossly intact. Normal speech. PSYCHIATRIC: Cooperative. Good eye contact. Appropriate mood and affect. Laboratory Results - last 24 hr 08/16/18 08/16/18 08/16/18 00:56 00:56 00:56 WBC 4.1 RBC 3.71 Hgb 9.1 L Hct 28.1 L MCV 75.6 L MCH 24.6 L MCHC 32.5 RDW 14.0 Plt Count 211 MPV 7.7 Absolute Neuts (auto) 2.8 Neutrophils % 69.6 Lymphocytes % 14.4 Monocytes % 15.2 H Eosinophils % 0.2 D Basophils % 0.6 Nucleated RBC % 0 Retic Count Sodium 134 L Potassium 4.9 Chloride 99 Carbon Dioxide 22 Anion Gap 13 BUN 111 H* Creatinine 3.2 H Creat Clearance w eGFR 14.63 POC Glucometer Random Glucose 196 H Calcium 8.5 Phosphorus 5.1 H Magnesium 2.1 Total Bilirubin 0.5 AST 39 H ALT 31 Alkaline Phosphatase 134 H Troponin I 0.54 H B-Natriuretic Peptide 45684.92 H Total Protein 6.5 Albumin 2.7 L TSH 0.01 L Free T4 2.33 H Urine Color Urine Appearance Urine pH Ur Specific [place] Urine Protein Urine Glucose (UA) Urine Ketones Urine Blood Urine Nitrite Urine Bilirubin Urine Urobilinogen Ur Leukocyte Esterase 08/16/18 08/16/18 08/16/18 01:22 05:30 08:16 WBC RBC Hgb Hct MCV MCH MCHC RDW Plt Count MPV Absolute Neuts (auto) Neutrophils % Lymphocytes % Monocytes % Eosinophils % Basophils % Nucleated RBC % Retic Count 1.65 H D Sodium Potassium Chloride Carbon Dioxide Anion Gap BUN Creatinine Creat Clearance w eGFR POC Glucometer Random Glucose Calcium Phosphorus Magnesium Total Bilirubin AST ALT Alkaline Phosphatase Troponin I 0.53 H B-Natriuretic Peptide Total Protein Albumin TSH Free T4 Urine Color Ltyellow Urine Appearance Clear Urine pH 5.0 Ur Specific [place] 1.011 Urine Protein Negative Urine Glucose (UA) Negative Urine Ketones Trace H Urine Blood Negative Urine Nitrite Negative Urine Bilirubin Negative Urine Urobilinogen Negative Ur Leukocyte Esterase Negative 08/16/18 11:47 WBC RBC Hgb Hct MCV MCH MCHC RDW Plt Count MPV Absolute Neuts (auto) Neutrophils % Lymphocytes % Monocytes % Eosinophils % Basophils % Nucleated RBC % Retic Count Sodium Potassium Chloride Carbon Dioxide Anion Gap BUN Creatinine Creat Clearance w eGFR POC Glucometer 196 Random Glucose Calcium Phosphorus Magnesium Total Bilirubin AST ALT Alkaline Phosphatase Troponin I B-Natriuretic Peptide Total Protein Albumin TSH Free T4 Urine Color Urine Appearance Urine pH Ur Specific [place] Urine Protein Urine Glucose (UA) Urine Ketones Urine Blood Urine Nitrite Urine Bilirubin Urine Urobilinogen Ur Leukocyte Esterase Active Medications Generic Name Dose Route Start Last Admin Trade Name Freq PRN Reason Stop Dose Admin Aspirin 81 mg 08/16/18 10:00 08/16/18 10:36 Asa - PO 81 mg DAILY LALO Administration Carvedilol 20 mg 08/16/18 10:00 08/16/18 10:36 Coreg Cr - PO 20 mg DAILY LALO Administration Furosemide 80 mg 08/16/18 10:00 08/16/18 10:34 Lasix Injection - IVPUSH 80 mg DAILY LALO Administration Heparin Sodium (Porcine) 5,000 unit 08/16/18 06:44 Heparin - SQ TID LALO Insulin Aspart 1 vial 08/16/18 07:00 08/16/18 11:30 Novolog Vial Sliding Scale - SQ 2 units ACHS LALO Administration Protocol ASSESSMENT/PLAN: 63 yo Female with PMH of DM, HTN, HLD, [place] in 2012 s/p stents, CABG, A-fib, asthma, hyperthyroidism, CKD, anemia, discharged 08/15 after thyrotoxicosis with plan for outpatient thyroid ablation, admitted with complaint of increased swelling and pain in her legs as well as shoulder pain. Thyrotoxicosis -Pt discharged yesterday with original plan for outpatient thyroid ablation with Dr. Gonsales today -tachycardic, mild fever likely noninfectious and secondary to hyperthyroidism -TSH 0.01, Free T4 2.3, Free T3 pending, Total T3 pending -Endocrinology consulted, will await recommendation of management as far as plan for ablation -PTU 50 mg PO BID Chronic Diastolic CHF -Pitting edema noted in b/l LE -Seen by Dr. Chen outpatient who followed pt on recent admission -Cardiology consult appreciated -Edema likely secondary to hyperthyroid -Will reevaluate BMP in AM and consider restarting home Torsemide 20 mg Daily -Lasix held stopped for now as per renal consult -Vascular study negative for DVTs in b/l LE -ECHO pending CKD -Elevated BUN/Cr - Cr baseline 3.1 as per prior chart review, BUN elevated from baseline -Nephrology consult appreciated - elevation of BUN likely due to aggressive diuresis -Lasix 80 mg IV Daily held for now Shoulder Pain -likely msk pain -improved with tylenol -Pt refused Flexeril A-fib -Tachycardia likely due to thyrotoxicosis, no evidence of RVR -On Prasugrel HTN -Hydralazine 37.5 mg PO TID -Coreg 20 mg PO Daily HLD/CA with stents/CAD s/p CABG -Crestor 10 mg PO HS -Ezetimibe 10 mg PO Q2D -ASA -Prasugrel 10 mg PO Daily IDDM -BGMs ACHS -Insulin sliding scale for glycemic control Anxiety -stable on home Clonazepam 0.5 mg PO QID PRN Asthma -not in acute exacerbation -Stable on home Breo -PRN Albuterol NEBs for SOB DVT Prophylaxis -Heparin 5000 units SQ TID FEN -Fluids: none -Electrolytes: elevated Phos, BMP in AM -Nutrition: Diabetic Diet Disposition Telemetry Visit type - Emergency Visit Emergency Visit: Yes ED Registration Date: 08/16/18 Care time: The patient presented to the Emergency Department on the above date and was hospitalized for further evaluation of their emergent condition. - New Patient This patient is new to me today: Yes Date on this admission: 08/16/18 - Critical Care Critical Care patient: No
--- NOTE | 2018-08-16 13:09 | CONSULT ---
Consult - text type - Consultation Consultation Note: Renal Consult for CKD with Azotemia This is a 63 year old AA woman with hx of CKD Stage 4 w/o overt proteinemia, Hypertension, Obesity, LE edema, CHF presented with chills and diffuse body pain with worsening LE edema. Pt reports that her legs have been progressively getting worse despite diuretics. Pt was titrated up to Torsemide 100mg at home for some time but no change in edema. Pt unable to tolerate methimazole at home. Denies any N/V, confusion lethargy, muscle weakness, sob, cp, abd pain. PMhx: as above Allergies: NKDA Family Hx: NC Social hx: No T/A/D ROS: as per HPI, all other pertinent ros negative Home Medications Medication Instructions Recorded Aspirin [ASA -] 81 mg PO DAILY #1 tab 03/06/13 Albuterol 0.083% Nebulizer Bibiana 1 neb NEB QID 09/14/16 [Ventolin 0.083% Nebulizer Soln -] Insulin Glargine,Hum.rec.anlog 10 units SQ HS PRN 04/29/17 [Lantus (10mL VIAL) -] Insulin Lispro [Humalog] 100 unit SQ PRN 04/29/17 clonazePAM [KlonoPIN] 0.5 mg PO QID PRN 06/13/17 Ezetimibe [Zetia -] 10 mg PO Q48H 30 Days #30 tablet 12/20/17 Nitroglycerin Patch [Nitro-Dur 0.2 mg TD DAILY #30 patch.td24 12/20/17 Patch -] Rosuvastatin [Crestor -] 10 mg PO HS #30 tablet 04/15/18 Brimonidine Tartrate [Alphagan P 3 drop OU Q8H 05/27/18 0.1% -] Latanoprost 0.005% Eye Drops 1 drop OU DAILY 05/27/18 [Xalatan 0.005% Eye Drops -] hydrALAZINE HCL [Apresoline -] 37.5 mg PO TID #135 tablet 06/04/18 Acetaminophen [Tylenol] 650 mg PO Q4H PRN 08/11/18 Ferrous Sulfate [Feosol] 28 mg PO BID 08/11/18 Torsemide 20 mg PO DAILY 08/11/18 Carvedilol Phosphate [Coreg Cr -] 20 mg PO DAILY #30 capsule.sa 08/14/18 Albuterol 0.083% Nebulizer Bibiana 1 amp NEB PRN PRN 08/16/18 [Ventolin 0.083% Nebulizer Soln -] Vital Signs Temperature 97.9 F 08/16/18 10:00 Pulse Rate 117 H 08/16/18 10:00 Respiratory Rate 20 08/16/18 10:00 Blood Pressure 130/72 08/16/18 10:00 O2 Sat by Pulse Oximetry (%) 97 08/16/18 10:00 NAD awake and alert RRR, No M/R CTA no rales or wheeze soft NT/ND ++ edema in LE, + tenderness on palpation no cyanoiss or clubbing no bladder distension CBC, BMP 08/16/18 00:56 08/16/18 00:56 Laboratory Tests 05/28/18 05/29/18 08/16/18 06:00 06:20 00:56 Calcium 8.8 8.6 8.5 Phosphorus 5.7 H 5.1 H Magnesium 2.1 B-Natriuretic Peptide 29766.92 H Albumin 3.1 L 2.7 L Urine Protein 08/16/18 01:22 Calcium Phosphorus Magnesium B-Natriuretic Peptide Albumin Urine Protein Negative Current Medications Aspirin (Asa -) 81 mg PO DAILY [facility] Last Admin: 08/16/18 10:36 Dose: 81 mg Carvedilol (Coreg Cr -) 20 mg PO DAILY [facility] Last Admin: 08/16/18 10:36 Dose: 20 mg Furosemide (Lasix Injection -) 80 mg IVPUSH DAILY [facility] Last Admin: 08/16/18 10:34 Dose: 80 mg Heparin Sodium (Porcine) (Heparin -) 5,000 unit SQ TID [facility] Insulin Aspart (Novolog Vial Sliding Scale -) 1 vial SQ ACHS [facility]; Protocol Last Admin: 08/16/18 11:30 Dose: 2 units 63 year old AA woman with hx of CKD Stage 4 w/o overt proteinemia, Hypertension , Obesity, LE edema, CHF presented with chills and diffuse body pain with worsening LE edema. #CKD Stage 4 with high BUN #LE edema, related to myxedema/thyroid disease #Hyperthyroidism/Graves disease #Hypertension #Hx of CHF High BUN likely related to fluid shifts/intravascular volume depletion in setting of aggressive diuresis both inpatient and outpatient would hold diuretics for now and trend weights Maintain a low salt diet and elevated legs as tolerated will need to have hyperthyroidism treated Endocrine consult, possible IR intervention HR elevated but likely due to to hyperthyroidism BP at goal pain control trend renal function and electrolytes no acute indication for [employer] at the present time trend renal function and electrolytes as inpatient Thank you Goyo Cid DO
[2018-08-16] MEDS ORDERED: ONDANSETRON 4 MG/2 ML VIAL IVPUSH PRN (13:27)
[2018-08-16] MEDS ORDERED: ALBUTEROL SO4 0.083% IH SOL 2.5 MG/3 ML VIAL.NEB. NEB PRN ×2 (13:29→17:13)
[2018-08-16] MEDS ORDERED: clonazePAM 0.5 MG TABLET PO PRN (13:29)
[2018-08-16] MEDS ORDERED: BRIMONIDINE TARTRATE 0.1% OPHTHALMIC 5 ML BOTTLE OU SCH (13:30)
[2018-08-16] MEDS ORDERED: EZETIMIBE 10 MG TABLET (FP) PO SCH (13:30)
[2018-08-16] MEDS: ACETAMINOPHEN 325 MG TABLET (FP) PO PRN (14:46)
[2018-08-16] MEDS: hydrALAZINE HCL 25 MG TABLET (FP) PO SCH ×2 (14:47→21:49)
[2018-08-16] MEDS: PRASUGREL HCL 10 MG TAB PO SCH (16:14)
--- NOTE | 2018-08-16 16:19 | EKG ---
Test Reason : Blood Pressure : / mmHG Vent. Rate : 125 BPM Atrial Rate : 125 BPM P-R Int : 000 ms QRS Dur : 084 ms QT Int : 310 ms P-R-T Axes : 044 013 204 degrees QTc Int : 447 ms SINUS TACHYCARDIA CANNOT RULE OUT ANTERIOR INFARCT (CITED ON OR BEFORE 10-AUG-2018) ABNORMAL ECG WHEN COMPARED WITH ECG OF 10-AUG-2018 14:18, SERIAL CHANGES OF ANTERIOR INFARCT PRESENT Confirmed by Mehrdad Canela ([id number]) on 08/16/2018 4:18:49 PM Referred By: Confirmed By:Mehrdad Canela
--- NOTE | 2018-08-16 17:14 | ECHO ---
Name: BUD HENDERSON Exam:Adult Echocardiogram Study Date: 08/16/2018 09:17 AM Age: 63 yrs Reason For Study: CHF EXACERBATION Height: 65 in Weight: 225 lb BSA: 2.1 m2 MMode/2D Measurements & Calculations IVSd: 0.83 cm Ao root diam: 2.5 cm LVIDd: 5.9 cm LA dimension: 3.7 cm LVIDs: 4.5 cm LVPWd: 0.76 cm EDV(Teich): 172.0 ml LAV (MOD-bp): 85.0 ml ESV(Teich): 91.3 ml TAPSE: 1.7 cm RV S Luiz: 5.5 cm/sec Doppler Measurements & Calculations MV E max luiz: 63.2 cm/sec Ao V2 max: 143.5 cm/sec MV A max luiz: 28.6 cm/sec Ao max P.2 mmHg MV E/A: 2.2 AI P1/2t: 199.1 msec MV dec time: 0.11 sec AI max luiz: 315.1 cm/sec LV V1 max P.3 mmHg AI max P.8 mmHg LV V1 max: 76.4 cm/sec AI dec slope: 463.5 cm/sec2 MR max luiz: 424.0 cm/sec TV V2 max: 270.6 cm/sec MR max P.2 mmHg TV max P.3 mmHg TR max luiz: 256.5 cm/sec Med Peak E' Luiz: 6.3 cm/sec TR max P.4 mmHg Med E/e': 10.0 Lat Peak E' Luiz: 10.6 cm/sec Lat E/e': 5.9 Procedure A complete two-dimensional transthoracic echocardiogram was performed (2D, M-mode, Doppler and color flow Doppler). The study was technically adequate with some images being suboptimal in quality. Left Ventricle The left ventricle is mildly dilated. The inferior wall is akinetic. Remaining phillip are severely hyp okinetic. LV systolic function is severely reduced. Ejection Fraction = 30%. Right Ventricle The right ventricle is normal size. The right ventricular systolic function is moderately reduced. Atria The left atrium is mildly dilated. Right atrial size is normal. Mitral Valve The mitral valve leaflets appear normal. There is no evidence of stenosis, fluttering, or prolapse. T here is moderate mitral regurgitation. Tricuspid Valve The tricuspid valve is normal. There is mild tricuspid regurgitation. Right ventricular systolic pres sure is 39 mmhg. Aortic Valve The aortic valve is normal in structure and function. Mild aortic regurgitation. Pulmonic Valve The pulmonic valve is not well visualized. Great Vessels The aortic root is normal size. Pericardium/Pleura There is no pericardial effusion. Interpretation Summary The inferior wall is akinetic. Remaining phillip are severely hypokinetic. LV systolic function is talia rely reduced. The left ventricle is mildly dilated. The right ventricular systolic function is moderately reduced. There is moderate mitral regurgitation. Mehrdad Canela 08/16/2018 05:13 PM
[2018-08-16] MEDS: FERROUS SO4 325 MG TABLET (FP) PO SCH (21:50)
[2018-08-16] MEDS: PROPYLTHIOURACIL 50 MG TABLET (UD) PO SCH (21:50)
[2018-08-16] MEDS: BRIMONIDINE TARTRATE 0.1% OPHTHALMIC 5 ML BOTTLE OU SCH (21:52)
[2018-08-16] MEDS ORDERED: ROSUVASTATIN CA 10 MG TABLET (FP) PO SCH (22:00)
[2018-08-17] MEDS ORDERED: PT OWN MED DRAWER 7, Y5N ONE ×5 (06:20→20:15)
[2018-08-17] MEDS: hydrALAZINE HCL 25 MG TABLET (FP) PO SCH ×2 (06:25→14:44)
[2018-08-17] MEDS: BRIMONIDINE TARTRATE 0.1% OPHTHALMIC 5 ML BOTTLE OU SCH ×2 (06:26→14:45)
[2018-08-17] MEDS ORDERED: INSULIN (NOVOLOG) ASPART 100 UNITS/ML 10ML VIAL ONE ×2 (06:28→16:40)
[2018-08-17] MEDS: INSULIN SLIDING SCALE (NOVOLOG) 1 VIAL SQ SCH ×4 (06:29→16:45)
--- NOTE | 2018-08-17 07:23 | PN ---
Physical Exam: SUBJECTIVE: Patient seen and examined this AM. She says she is feeling a little better today than yesterday. She says that her pain in her legs and right shoulder is slightly better than yesterday but still present and that the swelling in her legs is about the same. OBJECTIVE: Vital Signs Period Temp Pulse Resp BP Sys/Shankar Pulse Ox Last 24 Hr 97.8 F-98.3 F 114-121 18-20 121-139/63-86 95-97 GENERAL: A&O, no acute distress HEAD: Normocephalic, atraumatic. EYES: PERRL, no scleral icterus EARS, NOSE, THROAT: oropharynx clear without exudates. Moist mucous membranes. NECK: supple without lymphadenopathy, JVD noted on right, hepatojugular reflex not present LUNGS: CTA b/l, no crackles or wheezes HEART: Tachycardic and irregular rythm without audible murmur ABDOMEN: Soft, obeses, nontender to palpation, normoactive bowel sounds MUSCULOSKELETAL: tenderness on shoulder and back palpation. EXTREMITIES: 2+ pulses, warm, well-perfused. 2+ pitting edema in LE b/l tender on palpation on anterior distal legs NEUROLOGICAL: Cranial nerves II-XII grossly intact. Normal speech. PSYCHIATRIC: Cooperative. Good eye contact. Appropriate mood and affect. Laboratory Results - last 24 hr 08/16/18 08/16/18 08/16/18 00:56 00:56 05:30 Retic Count 1.65 H D POC Glucometer Troponin I Free T3 5.9 H Total T3 179.00 08/16/18 08/16/18 08/16/18 08:16 11:47 16:44 Retic Count POC Glucometer 196 210 Troponin I 0.53 H Free T3 Total T3 08/16/18 08/17/18 21:48 06:25 Retic Count POC Glucometer 288 157 Troponin I Free T3 Total T3 Active Medications Generic Name Dose Route Start Last Admin Trade Name Freq PRN Reason Stop Dose Admin Acetaminophen 650 mg 08/16/18 13:29 08/16/18 14:46 Tylenol - PO 650 mg Q4H PRN Administration PAIN Albuterol Sulfate 1 amp 08/16/18 17:13 Ventolin 0.083% Nebulizer Soln - NEB Q8H PRN ASTHMA Aspirin 81 mg 08/16/18 10:00 08/16/18 10:36 Asa - PO 81 mg DAILY LALO Administration Brimonidine Tartrate 1 drop 08/16/18 22:00 08/17/18 06:26 Alphagan P 0.1% - OU 1 drop TID LALO Administration Carvedilol 20 mg 08/16/18 10:00 08/16/18 10:36 Coreg Cr - PO 20 mg DAILY LALO Administration Clonazepam 0.5 mg 08/16/18 13:29 Klonopin - PO QID PRN ANXIETY Ezetimibe 10 mg 08/16/18 13:30 08/16/18 16:15 Zetia - PO 10 mg Q2D LALO Administration Ferrous Sulfate 325 mg 08/16/18 22:00 08/16/18 21:50 Feosol - PO 325 mg BID LALO Administration Hydralazine HCl 37.5 mg 08/16/18 14:00 08/17/18 06:25 Apresoline - PO 37.5 mg TID LALO Administration Insulin Aspart 1 vial 08/16/18 07:00 08/17/18 06:29 Novolog Vial Sliding Scale - SQ 2 units ACHS LALO Administration Protocol Latanoprost 1 drop 08/17/18 10:00 Xalatan 0.005% Eye Drops - OU HS LALO Fluticasone/ 1 each 08/16/18 13:30 08/16/18 22:42 Vilanterol [Breo IH Not Given Ellipta 200-25 Mcg DAILY LALO Inhalation] Ondansetron HCl 4 mg 08/16/18 13:27 Zofran Injection IVPUSH Q6H PRN NAUSEA Prasugrel 10 mg 08/16/18 13:45 08/16/18 16:14 Effient - PO 10 mg DAILY LALO Administration Propylthiouracil 50 mg 08/16/18 22:00 08/16/18 21:50 Ptu - PO 50 mg BID LALO Administration Rosuvastatin Calcium 10 mg 08/16/18 22:00 08/16/18 21:50 Crestor - PO 10 mg HS LALO Administration ASSESSMENT/PLAN: 63 yo Female with PMH of DM, HTN, HLD, [place] in 2012 s/p stents, CABG, A-fib, asthma, hyperthyroidism, CKD, anemia, discharged 08/15 after thyrotoxicosis with plan for outpatient thyroid ablation, admitted with complaint of increased swelling and pain in her legs as well as shoulder pain. Thyrotoxicosis -Pt was discharged with original plan for outpatient thyroid ablation with Dr. Gonsales -tachycardic, mild fever was likely noninfectious and secondary to hyperthyroidism, afebrile overnight -TSH 0.01, Free T4 2.3, Free T3 5.9, Total T3 179 -Endocrinology consulted, will await recommendation of management as far as plan for ablation (radioactive iodine) -PTU 50 mg PO BID as per Endocrinology - pt states it makes her nauseas - PRN Zofran -Pt says she spoke with Endocrinology who said he would see her today and something about a dye - assuming radioactive iodine Chronic Diastolic CHF -Pitting edema noted in b/l LE -Seen by Dr. Chen outpatient who followed pt on recent admission -Cardiology consult appreciated -Edema likely secondary to hyperthyroid -Will reevaluate BMP in AM and consider restarting home Torsemide 20 mg Daily -Lasix stopped for now as per renal consult, also pt for likely radioactive iodine -Vascular study negative for DVTs in b/l LE -ECHO noted - inferior wall akineses, all other wall hypokinesis, severe LV dysfunction, EF 30% CKD -Elevated BUN/Cr - Cr baseline 3.1 as per prior chart review, BUN still elevated from baseline -Nephrology consult appreciated - elevation of BUN likely due to aggressive diuresis -Lasix 80 mg IV Daily held for now Shoulder Pain -likely msk pain -improved with tylenol -Pt refused Flexeril A-fib -Tachycardia likely due to thyrotoxicosis, no evidence of RVR -On Prasugrel HTN -Hydralazine 37.5 mg PO TID -Coreg 20 mg PO Daily HLD/[place] with stents/CAD s/p CABG -Crestor 10 mg PO HS -Ezetimibe 10 mg PO Q2D -ASA -Prasugrel 10 mg PO Daily IDDM -BGMs ACHS -Insulin sliding scale for glycemic control -Has required 14 units over last 24 hours Anxiety -stable on home Clonazepam 0.5 mg PO QID PRN -Did not require overnight Asthma -not in acute exacerbation -Stable on home Breo -PRN Albuterol NEBs for SOB DVT Prophylaxis -Heparin 5000 units SQ TID FEN -Fluids: none -Electrolytes: elevated Phos, BMP in AM -Nutrition: Diabetic Diet Disposition Telemetry Visit type - Emergency Visit Emergency Visit: Yes ED Registration Date: 08/16/18 Care time: The patient presented to the Emergency Department on the above date and was hospitalized for further evaluation of their emergent condition. - New Patient This patient is new to me today: No - Critical Care Critical Care patient: No
[2018-08-17 07:32] LABS: ALBUMIN 2.7 g/dl (3.4-5.0); ANION GAP 9 MMOL/L (8-16); BILIRUBIN,TOTAL 0.5 mg/dL (0.2-1); CALCIUM 8.8 mg/dL (8.5-10.1); CHLORIDE 102 mmol/L (98-107); CO2 26 mmol/L (21-32); CREATININE 3.2 mg/dL (0.55-1.3); GLUCOSE,RANDOM 156 mg/dL (74-106); POTASSIUM 4.6 mmol/L (3.5-5.1); SGOT/AST 44 U/L (15-37); SGPT/ALT 33 U/L (13-61); SODIUM 137 mmol/L (136-145); TOT PROT 6.3 g/dl (6.4-8.2)
[2018-08-17 07:33] LABS: ALK PHOS 136 U/L (45-117)
[2018-08-17 08:15] LABS: BLOOD UREA NITROGEN 107 mg/dL (7-18)
--- NOTE | 2018-08-17 09:14 | PN ---
Progress Note (short form) - Note Progress Note: s: stable dyspnea, edema. occasional palps. no chest pain, dizziness, lightheadedness. shoulder pain improved Tele: sinus tachycardia 120s-150s Current Medications Acetaminophen (Tylenol -) 650 mg PO Q4H PRN PRN Reason: PAIN Last Admin: 08/16/18 14:46 Dose: 650 mg Albuterol Sulfate (Ventolin 0.083% Nebulizer Soln -) 1 amp NEB Q8H PRN PRN Reason: ASTHMA Aspirin (Asa -) 81 mg PO DAILY [facility] Last Admin: 08/16/18 10:36 Dose: 81 mg Brimonidine Tartrate (Alphagan P 0.1% -) 1 drop OU TID [facility] Last Admin: 08/17/18 06:26 Dose: 1 drop Carvedilol (Coreg Cr -) 20 mg PO DAILY [facility] Last Admin: 08/16/18 10:36 Dose: 20 mg Clonazepam (Klonopin -) 0.5 mg PO QID PRN PRN Reason: ANXIETY Ezetimibe (Zetia -) 10 mg PO Q2D [facility] Last Admin: 08/16/18 16:15 Dose: 10 mg Ferrous Sulfate (Feosol -) 325 mg PO BID [facility] Last Admin: 08/16/18 21:50 Dose: 325 mg Hydralazine HCl (Apresoline -) 37.5 mg PO TID [facility] Last Admin: 08/17/18 06:25 Dose: 37.5 mg Insulin Aspart (Novolog Vial Sliding Scale -) 1 vial SQ [facility]; Protocol Last Admin: 08/17/18 06:29 Dose: 2 units Latanoprost (Xalatan 0.005% Eye Drops -) 1 drop OU [facility] Fluticasone/Vilanterol [Breo Ellipta 200-25 Mcg Inhalation] 1 each IH DAILY [facility] Last Admin: 08/16/18 22:42 Dose: Not Given Ondansetron HCl (Zofran Injection) 4 mg IVPUSH Q6H PRN PRN Reason: NAUSEA Prasugrel (Effient -) 10 mg PO DAILY [facility] Last Admin: 08/16/18 16:14 Dose: 10 mg Propylthiouracil (Ptu -) 50 mg PO BID [facility] Last Admin: 08/16/18 21:50 Dose: 50 mg Rosuvastatin Calcium (Crestor -) 10 mg PO [facility] Last Admin: 08/16/18 21:50 Dose: 10 mg Vital Signs: Vital Signs Period Temp Pulse Resp BP Sys/Shankar Pulse Ox Last 24 Hr 98.3 F-100.5 F 116-120 16-18 132-151/8-78 96-100 Constitutional: Yes: Well Nourished, No Distress Eyes: No: Sclera Icterus HENT: No: Nasal Congestion Neck: No: Decreased ROM Respiratory: Yes: CTA Bilaterally No: Accessory Muscle Use, Rales Gastrointestinal: Yes: Normal Bowel Sounds. No: Distention, Hepatomegaly, Palpable Mass, Tenderness Cardiovascular: Yes: Regular Rate and Rhythm JVD: Yes Carotid Bruit: No PMI: Non-Displaced Heart Sounds: Yes: S1, S2. No: Gallop Murmur: No: Systolic Murmur, Diastolic Murmur Musculoskeletal: Yes: Other (No kyphosis) Extremities: No: Cool, Cyanosis Edema: Yes 2+ bilat Peripheral Pulses: 2+ Left Carotid, 2+ Right Carotid, 2+ Left Doralis Pedis, 2+ Right Dorsalis Pedis Integumentary: No: Jaundice Neurological: Yes: Alert, Oriented (x3) Psychiatric: No: Agitated ECG--sinus tach, nl intervals, nonspecific ST-T changes [facility] 2014: unchanged 70-80% distal RCA lesion. patent mLAD stent. 80-90% pLCX-- Prom[facility] KAREN Echo 12/2016: TDS. nl LV size/EF. mild LVH. grade 2 d.d., hi E/e' = high LAP. nl RV. mild LAE. mild-mod MR, mod TR. mild pHTN (46 mmHg). Echo 07/2018 inf wall akinetic, other phillip severely hypokinetic, LV mildly dilated, RV function moderately reduced, LV function severely reduced, moderate MR, EF 30% a/p: hyperthyroidism, tachycardia - not controlled, plan is for ablation with Dr. Gonsales - likely etiology for tachycardia as well, continue coreg for now. has had prior intolerance to other beta blockers - increase coreg to 40 mg daily, discussed prior rate control with patient, has been on this dose in the past, will monitor acute systolic HF - prior echo 2017 reportedly normal EF, now 30% - has known ischemic heart disease, worsening EF may be tachycardia induced in setting of hyperthyroidism - BUN/Cr stable, weight 214 lbs ->213 lbs - holding diuretics today, renal following. cautious with aggressive diuresis in setting of elevated BUN/Cr - not on SHAN/ARB in setting of OBI - monitor BUN/Cr, daily weights, I/O - address hyperthyroidism as above Elevated troponin - 0.54->0.53 on admission, recently 0.4 during admission - flat trend likely in setting of CKD, HF - EKG stable compared to prior, clinical picture less c/w ACS paroxysmal atrial tach, sinus tach, palpitations, thyrotoxicosis: -remote h/o intolerance to metoprolol, atenolol, propranolol (pt cannot recall s.e.s then) -continue home coreg, increase dose to 40 mg daily as above, monitoring on tele labile HTN: -prior reasonable control, worsened in setting of hyperthyroidism -mult med intolerances in past -cont current meds, address hyperthyroidism as above CAD, prior NSTEMI/PCI: -cont home DAPT (aspirin/effient), statin with zetia, bb, nitro patch OBI on CKD: -baseline creat runs 2.5-2.8; more recently 3-3.1 -bun/cr stable however would avoid aggressive diuresis, lasix 80 mg IV daily for now as above HPL: -cont current meds anemia: -chronic. baseline hgb 9-10 -stable counts here
[2018-08-17] MEDS ORDERED: FUROSEMIDE 100 MG/10 ML INJECTABLE VIAL IVPB SCH (10:00)
[2018-08-17] MEDS: ACETAMINOPHEN 325 MG TABLET (FP) PO PRN (10:06)
[2018-08-17] MEDS: CARVEDILOL PHOSPHATE CR 20 MG CAPSULE (FP) PO SCH (10:08)
[2018-08-17] MEDS: ASPIRIN 81 MG CHEWABLE TABLETS PO SCH (10:08)
[2018-08-17] MEDS: PRASUGREL HCL 10 MG TAB PO SCH (10:08)
[2018-08-17] MEDS: FERROUS SO4 325 MG TABLET (FP) PO SCH (10:08)
[2018-08-17] MEDS: LATANOPROST 0.005% OPHTH SOLN 2.5ML BOTTLE OU SCH ×2 (10:12→10:19)
[2018-08-17] MEDS: PROPYLTHIOURACIL 50 MG TABLET (UD) PO SCH (10:12)
--- NOTE | 2018-08-17 10:14 | PN ---
Teaching Attending Note Name of Resident: Myron Preston ATTENDING PHYSICIAN STATEMENT I saw and evaluated the patient. I reviewed the resident's note and discussed the case with the resident. I agree with the resident's findings and plan as documented. SUBJECTIVE:dyspnea on mild exertion. states neck pain has improved. denies Cp, fever, chills, cough, N/V/C/D OBJECTIVE: Last Vital Signs Temp Pulse Resp BP Pulse Ox 98.0 F 120 H 18 133/73 95 08/17/18 06:00 08/17/18 06:00 08/17/18 06:00 08/17/18 06:00 08/16/18 20:45 Intake & Output 08/14/18 08/15/18 08/16/18 08/17/18 23:59 23:59 23:59 23:59 Intake Total 310 Balance 310 Weight 225 lb 214 lb 213 lb General NAD CV S1 S2 tachy Lungs CTA B/L no wheezing/rales/rhonchi Extremities 2+ pitting edema B/L ASSESSMENT AND PLAN: 63yo F wtih extensive PMH was discharged from [facility] for CHF exacerbation who returned on day of discharge for SOB and R neck pain 1. Acute on chronic diastolic CHF exacerbation-initial weight was stated by patient and likely inaccurate. pt does not appear volume overloaded at this time. as seen with elevated BUN maybe even over diuresed. symptoms can be explained by uncontrolled hyperthyroidism. will hold diuretics at this time. monitor renal function and will re-start home dose once improved and/or showing signs of volume overload. 2. SOB- more likely due to uncontrolled sinus tachycardia. stable. will ultimately need treatment of thyroid d/o. 3. R neck pain-concern for clot however with underlying muscle spams. pain now controlled. u/s is negative for clot. refused muscle relaxer states pain improved with tylenol. 4. Tropinemia- baseline elevated troponis likely demand from tachycardia with underlying CKD. no CP. low suspicion for ACS. does not require ischemic eval at this time 5. Hyperthroid-started on PTU yesterday. plan for i131 today with endocrine per patient. awaiting to d/w endo for plan and going forward. 6. Fever- afebrile. UA and CXR negative for infection. likley stress response. would hold abx at this time. sepsis workup if temp >101 7. CKD- at baseline Cr 3.1. stable. renal on board 8. Afib- not on anticoagulation. 9. DM- iss and bgm 10. CAD s/p CABG- on asa 11. DVT ppx- Hep sq 12. PT eval. pt may benefit from SNF placement.
--- NOTE | 2018-08-17 12:13 | CONSULT ---
Consult Consult Specialty:: hyperthyroidism Referred by:: Reason for Consultation:: hyperthyroidism/toxic goiter - History of Present Illness Chief Complaint: shortness of breath History of Present Illness: 63 y/o female with PMH of DM, HTN, HLD, [place] in 2013 s/p stents, CABG, Afib, asthma, hyperthyroidism, CKD, anemia presents to the ED with worsening B/L LE edema , shortness of breath and rapid palpitations. She states that her breathing is has been getting worse the past few days and she has not been able to ambulate as much as she usually does. Of note, patient was admitted to [facility] from 08/10-08/15 with similar complaints. She was taking PTU for her hyperthyroidism,does not tolerate tapazole and has had i123 scan previously was unable to make apt for i131 therapy dose, since recurrent chf symptoms. - History Source History Provided By: Patient, Family Member - Past Medical History Cardio/Vascular: Yes: AFIB, CAD, CHF, HTN, Hyperlipdemia, RI, Mitral Insufficiency, Pulmonary Hypertension Pulmonary: Yes: Sleep Apnea Renal/: Yes: Renal Failure ...: No Endocrine: Yes: Diabetes Mellitus - Past Surgical History Past Surgical History: Yes: Stent - Alcohol/Substance Use Hx Alcohol Use: No - Smoking History Smoking history: Never smoked Have you smoked in the past 12 months: No Aproximately how many cigarettes per day: 0 Home Medications - Allergies Allergies/Adverse Reactions: Allergies Allergy/AdvReac Type Severity Reaction Status Date / Time Penicillins Allergy Intermediate Hives Verified 08/10/18 12:22 Iodinated Contrast- Oral and Allergy Verified 08/10/18 12:22 IV Dye [Iodinated Contrast Media - IV Dye] tiotropium AdvReac Verified 08/10/18 12:22 [From [facility]iriva with [employer]er] - Home Medications Home Medications: Ambulatory Orders Aspirin [ASA -] 81 mg PO DAILY #1 tab 03/06/13 Insulin Lispro [Humalog] 100 unit SQ PRN 04/29/17 clonazePAM [KlonoPIN] 0.5 mg PO QID PRN 06/13/17 Ezetimibe [Zetia -] 10 mg PO Q48H 30 Days #30 tablet 12/20/17 Nitroglycerin Patch [Nitro-Dur Patch -] 0.2 mg TD DAILY #30 patch.td24 12/20/17 Rosuvastatin [Crestor -] 10 mg PO HS #30 tablet 04/15/18 Brimonidine Tartrate [Alphagan P 0.1% -] 3 drop OU Q8H 05/27/18 Latanoprost 0.005% Eye Drops [Xalatan 0.005% Eye Drops -] 1 drop OU DAILY hydrALAZINE HCL [Apresoline -] 37.5 mg PO TID #135 tablet 06/04/18 Acetaminophen [Tylenol] 650 mg PO Q4H PRN 08/11/18 Ferrous Sulfate [Feosol] 28 mg PO BID 08/11/18 Torsemide 20 mg PO DAILY 08/11/18 Carvedilol Phosphate [Coreg Cr -] 20 mg PO DAILY #30 capsule.sa 08/14/18 Albuterol 0.083% Nebulizer Bibiana [Ventolin 0.083% Nebulizer Soln -] 1 amp NEB PRN PRN 08/16/18 Fluticasone/Vilanterol [Breo Ellipta 200-25 Mcg INH] 1 each IH DAILY 08/16/18 Insulin Glargine,Hum.rec.anlog [Lantus] 10 unit SQ HS 08/16/18 Prasugrel HCl [Effient] 10 mg PO DAILY 08/16/18 Review of Systems - Review of Systems Constitutional: reports: Lethargy, Weakness Eyes: reports: No Symptoms HENT: reports: No Symptoms Neck: reports: No Symptoms Cardiovascular: reports: Palpitations, Shortness of Breath Respiratory: reports: Cough, Exercise Intolerance, Orthopnea, SOB, SOB on Exertion Gastrointestinal: reports: Bloating Genitourinary: reports: No Symptoms Musculoskeletal: reports: Muscle Cramps, Muscle Weakness Integumentary: reports: Pruritis Neurological: reports: No Symptoms Endocrine: reports: Unexplained Weight Gain Physical Exam Vital Signs: Vital Signs Temperature 98.0 F 08/17/18 06:00 Pulse Rate 120 H 08/17/18 06:00 Respiratory Rate 18 08/17/18 06:00 Blood Pressure 133/73 08/17/18 06:00 O2 Sat by Pulse Oximetry (%) 95 08/16/18 20:45 Constitutional: Yes: Anxious Eyes: Yes: EOM Intact HENT: Yes: Normocephalic Neck: Yes: Thyromegaly Cardiovascular: Yes: Tachycardia, Murmur Respiratory: Yes: On Nasal O2, Rales, Tachypnea Gastrointestinal: Yes: Normal Bowel Sounds Edema: Yes Edema: LLE: 3+, RLE: 3+ Neurological: Yes: Alert, Oriented Labs: CBC, BMP 08/16/18 00:56 08/17/18 06:24 Problem List - Problems (1) CKD (chronic kidney disease) Code(s): N18.9 - CHRONIC KIDNEY DISEASE, UNSPECIFIED Qualifiers: Chronic kidney disease stage: unspecified stage Qualified Code(s): N18.9 - Chronic kidney disease, unspecified (2) Acute exacerbation of asthma with allergic rhinitis Code(s): J45.901 - UNSPECIFIED ASTHMA WITH (ACUTE) EXACERBATION (3) Acute on chronic heart failure Code(s): I50.9 - HEART FAILURE, UNSPECIFIED Qualifiers: Heart failure type: diastolic Qualified Code(s): I50.33 - Acute on chronic diastolic (congestive) heart failure (4) Acute pulmonary edema with congestive heart failure Code(s): I50.1 - LEFT VENTRICULAR FAILURE, UNSPECIFIED Assessment/Plan Current Active Problems CHF exacerbation (Acute) CKD (chronic kidney disease) (Acute) Lymphedema (Acute) Thyrotoxicosis (Acute) toxic nodular thyroid gland Abnormal Lab Results 08/16/18 08/17/18 00:56 06:24 BUN 107 H* Creatinine 3.2 H Random Glucose 156 H AST 44 H Alkaline Phosphatase 136 H Total Protein 6.3 L Albumin 2.7 L Free T3 5.9 H Laboratory Results - last 24 hr 08/16/18 08/16/18 08/16/18 00:56 00:56 16:44 Sodium Potassium Chloride Carbon Dioxide Anion Gap BUN Creatinine Creat Clearance w eGFR POC Glucometer 210 Random Glucose Calcium Total Bilirubin AST ALT Alkaline Phosphatase Total Protein Albumin Free T3 5.9 H Total T3 179.00 08/16/18 08/17/18 08/17/18 21:48 06:24 06:25 Sodium 137 Potassium 4.6 Chloride 102 Carbon Dioxide 26 Anion Gap 9 BUN 107 H* Creatinine 3.2 H Creat Clearance w eGFR 14.63 POC Glucometer 288 157 Random Glucose 156 H Calcium 8.8 Total Bilirubin 0.5 AST 44 H ALT 33 Alkaline Phosphatase 136 H Total Protein 6.3 L Albumin 2.7 L Free T3 Total T3 08/17/18 11:41 Sodium Potassium Chloride Carbon Dioxide Anion Gap BUN Creatinine Creat Clearance w eGFR POC Glucometer 189 Random Glucose Calcium Total Bilirubin AST ALT Alkaline Phosphatase Total Protein Albumin Free T3 Total T3 Laboratory Tests 08/16/18 00:56 TSH 0.01 L plan: ptu 50mg bid after meals i discussed with patient / family / and for i131 therapy dose suggest evaluate for home o2 dc to get i131 as outpatient follow up as outpatient
[2018-08-17] MEDS ORDERED: CARVEDILOL PHOSPHATE CR 20 MG CAPSULE (FP) PO ONE (12:30)
--- NOTE | 2018-08-17 13:50 | PN ---
Progress Note (short form) - Note Progress Note: Renal follow up for CKD/High BUN Pt seen and examined at the bedside reports that she feels a little better today body pain improved with Tylenol no sob at rest but has mild RAMIREZ legs remain swollen making urine no CP, Fever, chills Vital Signs Temperature 98.0 F 08/17/18 06:00 Pulse Rate 119 H 08/17/18 13:22 Respiratory Rate 18 08/17/18 10:00 Blood Pressure 133/73 08/17/18 06:00 O2 Sat by Pulse Oximetry (%) 94 L 08/17/18 13:22 Intake & Output 08/14/18 08/15/18 08/16/18 08/17/18 23:59 23:59 23:59 23:59 Intake Total 310 Balance 310 Weight 102.058 kg 97.069 kg 96.615 kg NAD awake and alert tachycardic Dec BS at lung bases + edema in LE CBC, BMP 08/16/18 00:56 08/17/18 06:24 Current Medications Acetaminophen (Tylenol -) 650 mg PO Q4H PRN PRN Reason: PAIN Last Admin: 08/17/18 10:06 Dose: 650 mg Albuterol Sulfate (Ventolin 0.083% Nebulizer Soln -) 1 amp NEB Q8H PRN PRN Reason: ASTHMA Aspirin (Asa -) 81 mg PO DAILY [facility] Last Admin: 08/17/18 10:08 Dose: 81 mg Brimonidine Tartrate (Alphagan P 0.1% -) 1 drop OU TID [facility] Last Admin: 08/17/18 06:26 Dose: 1 drop Carvedilol (Coreg Cr -) 40 mg PO DAILY [facility] Clonazepam (Klonopin -) 0.5 mg PO QID PRN PRN Reason: ANXIETY Last Admin: 08/17/18 10:08 Dose: 0.5 mg Ezetimibe (Zetia -) 10 mg PO Q2D [facility] Last Admin: 08/16/18 16:15 Dose: 10 mg Ferrous Sulfate (Feosol -) 325 mg PO BID [facility] Last Admin: 08/17/18 10:08 Dose: 325 mg Hydralazine HCl (Apresoline -) 37.5 mg PO TID [facility] Last Admin: 08/17/18 06:25 Dose: 37.5 mg Insulin Aspart (Novolog Vial Sliding Scale -) 1 vial SQ ACHS [facility]; Protocol Last Admin: 08/17/18 12:27 Dose: 2 units Latanoprost (Xalatan 0.005% Eye Drops -) 1 drop OU HS [facility] Last Admin: 08/17/18 10:19 Dose: Not Given Fluticasone/Vilanterol [Breo Ellipta 200-25 Mcg Inhalation] 1 each IH DAILY [facility] Last Admin: 08/17/18 10:13 Dose: 1 each Ondansetron HCl (Zofran Injection) 4 mg IVPUSH Q6H PRN PRN Reason: NAUSEA Prasugrel (Effient -) 10 mg PO DAILY [facility] Last Admin: 08/17/18 10:08 Dose: 10 mg Propylthiouracil (Ptu -) 50 mg PO BID [facility] Last Admin: 08/17/18 10:12 Dose: 50 mg Rosuvastatin Calcium (Crestor -) 10 mg PO HS [facility] Last Admin: 08/16/18 21:50 Dose: 10 mg 63 year old AA woman with hx of CKD Stage 4 w/o overt proteinemia, Hypertension , Obesity, LE edema, CHF presented with chills and diffuse body pain with worsening LE edema. #CKD Stage 4 with high BUN #LE edema, related to myxedema/thyroid disease #Hyperthyroidism/Graves disease #Hypertension #Hx of CHF Renal function unchanged but pt did get IV Lasix yesterday hold diurtics starting today, trend BUN/Cr and weights Endocrine follow up, continue PTU on Coreg and Hydralazine Cardiology follow up no acute indication for SENIOR [employer]IS A[employer]ST at the present time trend renal function and electrolytes as inpatient Thank you Goyo Cid DO
--- NOTE | 2018-08-17 17:08 | DS ---
Physical Exam: SUBJECTIVE: Patient seen and examined this AM. She says she is feeling a little better today than yesterday. She says that her pain in her legs and right shoulder is slightly better than yesterday but still present and that the swelling in her legs is about the same. OBJECTIVE: Vital Signs Period Temp Pulse Resp BP Sys/Shankar Pulse Ox Last 24 Hr 97.8 F-98.3 F 114-121 18-20 121-139/63-86 94-96 PHYSICAL EXAM GENERAL: A&O, no acute distress HEAD: Normocephalic, atraumatic. EYES: PERRL, no scleral icterus EARS, NOSE, THROAT: oropharynx clear without exudates. Moist mucous membranes. NECK: supple without lymphadenopathy, JVD noted on right, hepatojugular reflex not present LUNGS: CTA b/l, no crackles or wheezes HEART: Tachycardic and irregular rythm without audible murmur ABDOMEN: Soft, obeses, nontender to palpation, normoactive bowel sounds MUSCULOSKELETAL: tenderness on shoulder and back palpation. EXTREMITIES: 2+ pulses, warm, well-perfused. 2+ pitting edema in LE b/l tender on palpation on anterior distal legs NEUROLOGICAL: Cranial nerves II-XII grossly intact. Normal speech. PSYCHIATRIC: Cooperative. Good eye contact. Appropriate mood and affect. LABS Laboratory Results - last 24 hr 08/16/18 08/16/18 08/16/18 00:56 00:56 21:48 Sodium Potassium Chloride Carbon Dioxide Anion Gap BUN Creatinine Creat Clearance w eGFR POC Glucometer 288 Random Glucose Calcium Total Bilirubin AST ALT Alkaline Phosphatase Total Protein Albumin Free T3 5.9 H Total T3 179.00 08/17/18 08/17/18 08/17/18 06:24 06:25 11:41 Sodium 137 Potassium 4.6 Chloride 102 Carbon Dioxide 26 Anion Gap 9 BUN 107 H* Creatinine 3.2 H Creat Clearance w eGFR 14.63 POC Glucometer 157 189 Random Glucose 156 H Calcium 8.8 Total Bilirubin 0.5 AST 44 H ALT 33 Alkaline Phosphatase 136 H Total Protein 6.3 L Albumin 2.7 L Free T3 Total T3 08/17/18 16:39 Sodium Potassium Chloride Carbon Dioxide Anion Gap BUN Creatinine Creat Clearance w eGFR POC Glucometer 214 Random Glucose Calcium Total Bilirubin AST ALT Alkaline Phosphatase Total Protein Albumin Free T3 Total T3 IMAGING: CXR: Large heart. No acute pathology Soft tissue u/s neck: No acute DVT, widely patent veins ECHO: inferior wall akinesis, remaining phillip with hypokinesis, severely reduced LV function, EF of 30% HOSPITAL COURSE: Date of Admission:08/16/18 Date of Discharge: 08/17/18 63 yo Female with PMH of DM, HTN, HLD, [place] in 2012 s/p stents, CABG, A-fib, asthma, hyperthyroidism, CKD, anemia, discharged 08/15 after thyrotoxicosis with plan for outpatient thyroid ablation, admitted with complaint of increased swelling and pain in her legs as well as shoulder pain. Her pain has been controlled well on PRN Tylenol. Recent admission for thyrotoxicosis was noted. Pt was scheduled for radioactive iodine but unable to attend her appointment as she was readmitted to the hospital. Pt was tachycardic with low grade fever on admission. Pt has remained tachycardic throughout admission. She was seen by cardiology, nephrology, and endocrinology who all agreed that most of her current symptoms were secondary to her thyrotoxicosis. Pt requires outpatient radioactive iodine which she cannot receive until one week after stopping all thyroid active medications. Pt also was informed to avoid seafood as it can be high in iodine. It was discussed in depth with patient the possibility of going to SNF for a week until she can receive the iodine, though she was very adamant about going home. Discussed risks and benefits with the patient and she expressed understanding and stated that she has plenty of help at home. Pt will be scheduled for outpatient radioactive iodine likely 08/25 or 08/26. Minutes to complete discharge: 40 Discharge Summary Reason For Visit: LYMPHEDEMA CHRONIC KIDNEY DISEASE CHF Current Active Problems CHF exacerbation (Acute) CKD (chronic kidney disease) (Acute) Lymphedema (Acute) Thyrotoxicosis (Acute) Condition: Stable - Instructions Diet, Activity, Other Instructions: You were admitted to the hospital with swelling and pain in your legs and some shoulder pain. Your shoulder pain is most likely sore back muscles and was improved with tylenol. The swelling in your legs was most likely due to your hyperthyroid disorder causing an increase in your heart failure symptoms. You were seen by a dispatch machine runner, a kidney doctor, and an endocrine doctor (for your thyroid). They all agreed that most of your symptoms are being caused by your abnormal thyroid which needs to be treated as an outpatient. It is important that you schedule the outpatient procedure for a radioactive iodine for your thyroid with Dr. Gonsales/Dr. Cardzoa It is important that you follow up with your primary care physician within one week It is also important that you follow up with Dr. Gonsales after the procedure for continued management of your thyroid disorder. You should resume all of your home medications as they were prescribed prior to your admissions to the hospital. You should avoid all thyroid medications as well as any seafood or products that could contain high amounts of iodine. The nuclear medicine lab will call you to schedule your appointment likely for next or Wednesday. If you begin to have worsening symptoms, you should call your primary doctor. If you begin having trouble breathing or severe symptoms, call 911 or return to the emergency department. Referrals: William Bruner MD [Primary Care Provider] - 1 Week Magdaleno Cardoza MD [Staff Physician] - Sunny Gonsales MD [Staff Physician] - Disposition: HOME - Home Medications Comprehensive Discharge Medication List: Ambulatory Orders Aspirin [ASA -] 81 mg PO DAILY #1 tab 03/06/13 Insulin Lispro [Humalog] 100 unit SQ PRN 04/29/17 clonazePAM [KlonoPIN] 0.5 mg PO QID PRN 06/13/17 Ezetimibe [Zetia -] 10 mg PO Q48H 30 Days #30 tablet 12/20/17 Nitroglycerin Patch [Nitro-Dur Patch -] 0.2 mg TD DAILY #30 patch.td24 12/20/17 Rosuvastatin [Crestor -] 10 mg PO HS #30 tablet 04/15/18 Brimonidine Tartrate [Alphagan P 0.1% -] 3 drop OU Q8H 05/27/18 Latanoprost 0.005% Eye Drops [Xalatan 0.005% Eye Drops -] 1 drop OU DAILY hydrALAZINE HCL [Apresoline -] 37.5 mg PO TID #135 tablet 06/04/18 Acetaminophen [Tylenol] 650 mg PO Q4H PRN 08/11/18 Ferrous Sulfate [Feosol] 28 mg PO BID 08/11/18 Torsemide 20 mg PO DAILY 08/11/18 Carvedilol Phosphate [Coreg Cr -] 20 mg PO DAILY #30 capsule.sa 08/14/18 Albuterol 0.083% Nebulizer Bibiana [Ventolin 0.083% Nebulizer Soln -] 1 amp NEB PRN PRN 08/16/18 Fluticasone/Vilanterol [Breo Ellipta 200-25 Mcg INH] 1 each IH DAILY 08/16/18 Insulin Glargine,Hum.rec.anlog [Lantus] 10 unit SQ HS 08/16/18 Prasugrel HCl [Effient] 10 mg PO DAILY 08/16/18 This patient is new to me today: No Emergency Visit: Yes ED Registration Date: 08/16/18 Care time: The patient presented to the Emergency Department on the above date and was hospitalized for further evaluation of their emergent condition. Critical Care patient: No - Discharge Referral Referred to [facility] No
[2018-08-17 18:40] VITALS: BP 102/54; PULSE 72; TEMP 97.8
[2018-08-18] MEDS ORDERED: CARVEDILOL PHOSPHATE CR 40 MG CAPSULE (FP) PO SCH (10:00)
[2018-08-18 16:41] LABS: SERUM IRON SATURATION 13 % (15-55); TOTAL IRON BINDING CAPACITY 262 ug/dL (250-450); UIBC 229 ug/dL (118-369)
== END 2018-08-17 20:30 | disposition home or self-care (01) | DRG 194 ==
LOC: JER 23:12 → JERBED 08-16 06:00 → J4S 08-16 07:00
PROVIDERS: ADMIT Internal Medicine; ATTEND Internal Medicine
DX: I13.0 Hypertensive heart and chronic kidney disease with heart failure and stage 1 through stage 4 chronic kidney disease, or unspecified chronic kidney disease (principal); E05.91 Thyrotoxicosis, unspecified with thyrotoxic crisis or storm; I47.1 Supraventricular tachycardia; I25.10 Atherosclerotic heart disease of native coronary artery without angina pectoris; I48.91 Unspecified atrial fibrillation; I27.20 Pulmonary hypertension, unspecified; D64.9 Anemia, unspecified; F41.9 Anxiety disorder, unspecified; E11.9 Type 2 diabetes mellitus without complications; E78.5 Hyperlipidemia, unspecified; R50.9 Fever, unspecified; J45.901 Unspecified asthma with (acute) exacerbation; I34.0 Nonrheumatic mitral (valve) insufficiency; E66.9 Obesity, unspecified; I25.2 Old myocardial infarction; Z68.35 Body mass index [BMI] 35.0-35.9, adult; E11.22 Type 2 diabetes mellitus with diabetic chronic kidney disease; N18.4 Chronic kidney disease, stage 4 (severe); I50.33 Acute on chronic diastolic (congestive) heart failure; N17.9 Acute kidney failure, unspecified; M54.2 Cervicalgia; Z95.1 Presence of aortocoronary bypass graft; Z95.5 Presence of coronary angioplasty implant and graft
CPT/HCPCS: 36415; 71045-TC-FY; 76536-TC; 80053; 81003; 82962; 83540; 83550; 83735; 83880; 84100; 84439; 84443; 84480; 84481; 84484; 85025; 85044; 87086; 93005; 93010; 93306-TC; 93970-TC; 94761; 99283-25; J0131

== ENCOUNTER 2018-10-16 15:15 | Inpatient (IN) | payer OTHER ==
--- NOTE | 2018-10-16 15:45 | PDOC ---
History of Present Illness - General Chief Complaint: Pain, Acute Stated Complaint: ABD PAIN (sent for admission) Time Seen by Provider: 10/16/18 15:38 - History of Present Illness Initial Comments: 63yo F with PMH of CHF, PA s/p 2 stents, HTN, CAD, HLD, CKD, hyperthyroidism, progressing pelvocaliectasis sent in by her physicians for cardiac monitoring. Patient is scheduled for nephrostomy tube placement on Wednesday by Dr. Razo. This urologist, in conjunction with her transmission operator Dr. Chen, instructed the patient to come into the ED for admission due to her high heart rate and overactive thyroid. Denies history of afib. Though she has no acute complaints, she reports intermittent chills, weakness, lightheadedness, abdominal pain, and chest tightness. Per CT abdomen/pelvis w/o contrast on 10/01/18: In the right side, there is progression of pelvocaliectasis as compared to prior imaging. A UPJ stricture again noted. There is some cortical atrophy on the right side. The left kidney shows no hydronephrosis or nephrolithiasis Per lab results performed at outside facility on 10/12/18. (Patient brought in a paper copy of these results) TSH<0.01 T4= 2.9 T3= 208 Past History - Past Medical History Allergies/Adverse Reactions: Allergies Allergy/AdvReac Type Severity Reaction Status Date / Time Penicillins Allergy Intermediate Hives Verified 10/16/18 15:24 Iodinated Contrast- Oral and Allergy Verified 10/16/18 15:24 IV Dye [Iodinated Contrast Media - IV Dye] tiotropium AdvReac Verified 10/16/18 15:24 [From Spiriva with HandiHaler] Home Medications: Ambulatory Orders Aspirin [ASA -] 81 mg PO DAILY 09/07/18 Cholecalciferol (Vitamin D3) [Vitamin D -] 5,000 unit PO DAILY 09/07/18 Clonazepam 0.5 mg PO QID 09/07/18 Ezetimibe [Zetia] 10 mg PO DAILY 09/07/18 Ferrous Gluconate [Iron] 256 mg PO DAILY 09/07/18 Fluticasone/Vilanterol [Breo Ellipta 100-25 Mcg INH] 1 each IH DAILY 09/07/18 Insulin Aspart [Novolog] 10 unit SQ ASDIR 09/07/18 Insulin Glargine,Hum.rec.anlog [Lantus] 0 unit SQ ASDIR 09/07/18 Prasugrel HCl [Effient] 10 mg PO DAILY 09/07/18 Rosuvastatin Calcium [Crestor] 10 mg PO DAILY 09/07/18 Insulin Sliding Scale [Novolog Vial Sliding Scale -] 1 vial SQ ACHS units 09/15 Carvedilol Phosphate [Coreg Cr -] 40 mg PO DAILY 10/17/18 Meclizine HCl 25 mg PO Q6H PRN 10/17/18 Metolazone 2.5 mg PO DAILY 10/17/18 Nitroglycerin Patch [Nitro-Dur] 0.2 mg TD DAILY 10/17/18 Torsemide 20 mg PO TID 10/17/18 Anemia: Yes Asthma: Yes Cancer: No Cardiac Disorders: Yes (PA 2013, 1 stent, CAD, Pulmonary HTN) CVA: No COPD: No CHF: Yes (Diastolic) DVT: No Dementia: No Diabetes: Yes GI Disorders: No Disorders: Yes (CKD, elevated creatinine) HTN: Yes Hypercholesterolemia: Yes Liver Disease: No Seizures: No Thyroid Disease: Yes (Hypothyroidism) - Surgical History Abdominal Surgery: No Appendectomy: No Cardiac Surgery: Yes (2 stents 04/29/2015) Cholecystectomy: No Lung Surgery: No Neurologic Surgery: No Orthopedic Surgery: Yes (right foot surgery as a child, left knee arthroscopy for meniscus tear) - Immunization History Immunization Up to Date: Yes - Suicide/Smoking/Psychosocial Hx Smoking Status: No Smoking History: Never smoked Have you smoked in the past 12 months: No Number of Cigarettes Smoked Daily: 0 Information on smoking cessation initiated: No Hx Alcohol Use: No Drug/Substance Use Hx: No Substance Use Type: None Hx Substance Use Treatment: No Review of Systems - Review of Systems Comments:: Constitutional: no fever, +chills HEENT: no throat pain, no dysphagia Cardiovascular: +chest pain, no palpitations Respiratory: no cough, +shortness of breath Gastrointestinal: +abdominal pain, no nausea, no vomiting Genitourinary: no dysuria, no frequency Musculoskeletal: no myalgia, no arthralgia Skin: no rash, no itching Neurologic: no headache, no dizziness *Physical Exam - Vital Signs Last Vital Signs Temp Pulse Resp BP Pulse Ox 97.8 F 130 H 16 121/80 100 10/16/18 15:21 10/16/18 15:21 10/16/18 15:21 10/16/18 15:21 10/16/18 15:21 - Physical Exam Comments: General: Awake, alert, and fully oriented, in no acute distress Head: No signs of trauma Eyes: EOMI, sclera anicteric ENT: Dry mucus membranes Neck: Normal ROM, supple Lungs: Lungs clear, Normal breath sounds Cardio: Tachycardic, S1 and S2 present Abdomen: Soft, tender to palpation in periumbilical region. Anasarca present. No guarding, no rebound, no masses Extremities: Normal range of motion, Distal pulses present, 2+ pitting edema bilaterally SKIN: Warm, Dry, normal turgor Neurologic: Cranial nerves II through XII grossly intact. Normal speech ED Treatment Course - LABORATORY CBC & Chemistry Diagram: 10/17/18 05:50 10/17/18 05:50 Medical Decision Making - Medical Decision Making 63yo F with PMH of CHF, PA s/p 2 stents, HTN, CAD, HLD, CKD, hyperthyroidism, progressing pelvocaliectasis sent in by her physicians for cardiac monitoring. in preparation for nephrostomy tube placement on Wednesday -Labs: elevated BNP 59K, TSH<0.01 -CXR: pending radiology report -EKG: rate 130, QTc 491, Afib with RVR (previous EKG's show sinus rhythm and patient denies history of afib) -Spoke with pharmacist, Sharath, at [facility] on [facility] to confirm patient's dose of coreg. Coreg 40mg Extended Release one tablet once a day prescribed by Kacy Garcia on 08/31/18; Patient did not take her coreg today. Ordered. -Plan to admit for new-onset afib, tachycardia, hyperthyroidism, CHF exacerbation, optimization for procedure on Wednesday10/16/18 18:21 Discussed case with inpatient team who accepted patient for admission 10/16/18 18:52 *DC/Admit/Observation/Transfer Diagnosis at time of Disposition: Acute on chronic heart failure, Hyperthyroidism, A-fib - Discharge Dispostion Condition at time of disposition: Guarded Decision to Admit order: Yes - Referrals - Patient Instructions - Post Discharge Activity
[2018-10-16 17:07] LABS: BASO % 0.9 % (0-2.0); EOS % 0.8 % (0-4.5); HEMATOCRIT 33.7 % (32.4-45.2); HEMOGLOBIN 10.5 GM/dL (10.7-15.3); LYMPH % 28.7 % (8-40); MCH 24.1 pg (25.7-33.7); MCHC 31.2 g/dl (32.0-36.0); MEAN CELL VOLUME 77.3 fl (80-96); MEAN PLT VOLUME 9.2 fl (7.5-11.1); MONO % 15.7 % (3.8-10.2); NEUT % 53.9 % (42.8-82.8); PLATELET COUNT 169 K/MM3 (134-434); RBC 4.36 M/mm3 (3.60-5.2); RDW 16.6 % (11.6-15.6); WHITE BLOOD COUNT 3.5 K/mm3 (4.0-10.0)
[2018-10-16 17:15] LABS: INR 1.34 (0.83-1.09); PROTHROMBIN TIME (PATIENT) 15.8 SEC (9.7-13.0)
[2018-10-16 17:15] LABS: URINE APPEARANCE CLEAR; URINE BILIRUBIN NEGATIVE (<2.0 mg/dL); URINE COLOR YELLOW; URINE GLUCOSE (UA) NEGATIVE (NEGATIVE); URINE KETONE NEGATIVE (NEGATIVE); URINE LEUK ESTERASE NEGATIVE (NEGATIVE); URINE NITRITE NEGATIVE (NEGATIVE); URINE PROTEIN NEGATIVE (NEGATIVE); URINE UROBILINOGEN NEGATIVE mg/dL (0.2-1.0)
[2018-10-16] MEDS ORDERED: CARVEDILOL PHOSPHATE CR 40 MG CAPSULE (FP) PO ONE (17:15)
[2018-10-16 17:18] LABS: ACTIVATED PTT 28.8 SECONDS (25.2-36.5)
[2018-10-16 17:43] LABS: ALBUMIN 2.9 g/dl (3.4-5.0); ALK PHOS 131 U/L (45-117); ANION GAP 11 MMOL/L (8-16); BILIRUBIN,TOTAL 0.9 mg/dL (0.2-1); BLOOD UREA NITROGEN 86 mg/dL (7-18); CALCIUM 8.4 mg/dL (8.5-10.1); CHLORIDE 104 mmol/L (98-107); CO2 23 mmol/L (21-32); CREATININE 3.5 mg/dL (0.55-1.3); GLUCOSE,RANDOM 173 mg/dL (74-106); N-TERMINAL BNP 58542.8 pg/ml (5-125); POTASSIUM 4.2 mmol/L (3.5-5.1); SGOT/AST 28 U/L (15-37); SGPT/ALT 15 U/L (13-61); SODIUM 138 mmol/L (136-145); TOT PROT 6.7 g/dl (6.4-8.2)
--- NOTE | 2018-10-16 17:46 | PDOC ---
Attending Attestation - Resident Resident Name: Lena Eugene - ED Attending Attestation I have performed the following: I have examined & evaluated the patient, The case was reviewed & discussed with the resident, I agree w/resident's findings & plan, Exceptions are as noted - HPI HPI: 10/16/18 17:40 Patient is a 62 year old female with a PMH of chronic diastolic heart failure, hyperthyroidism, pelvocaliectasis, IDDM, HLD, CAD s/p CABG, KATINA and HTN was sent in by Dr. Chen for cardiac monitoring prior to nephrostomy tube placement on 10/19/18. As per the patient, Dr. Chen called the patient to come to the ER for an evaluation of tachycardia in the setting of recently diagnosed hyperthyroidism 2 days ago. She reports weeks of generalized weakness, lower extremity swelling extending into her lower abdomen, and decreased urine. Patient also reports recent chills, generalized weakness, and intermittent chest tightness but does not endorse any of these symptoms at this time. Patient takes 40mg of carvedilol daily, but did not take it today. Allergy: Penicillin, IV contrast Surgical: CABG - Physicial Exam PE: 10/16/18 17:46 GENERAL: Awake, alert, and fully oriented, in no acute distress EYES: PERRLA, EOMI, sclera anicteric, conjunctiva clear ENT: Oropharynx clear without exudates. Moist mucosa NECK: Normal ROM, supple, +JVD LUNGS: Breath sounds equal, diminished at the bases b/l HEART: tachycardic but regular, no murmurs, rubs or gallops ABDOMEN: Soft, nontender, normoactive bowel sounds. No guarding, no rebound. + pitting edema to the lower abdomen EXTREMITIES: Normal range of motion, symmetric 2+ pitting edema throughout LE NEUROLOGICAL: Normal speech, cranial nerves intact, 5/5 strength in all 4 extremities, normal sensation to light touch in all 4 extremities, normal cerebellar exam, normal tone SKIN: Warm, Dry, normal turgor, no rashes or lesions noted. - Medical Decision Making 10/16/18 17:48 63yo F with MMP including CHF, hyperthyroidism, pelvocaliectasis (due for nephrostomy tube in 2 days) is send to the ED for admission for cardiac monitoring. Pt found to be in new afib with RVR initially at a rate of 130. Pt now in sinus tach on the monitor to 120s. Will give pt home dose of coreg 40mg ER (confirmed with [facility] pharmacy by Dr. Eugene), get labs, XR, admit. Consult for Dr. Chen ordered.
--- NOTE | 2018-10-16 20:08 | PN ---
Teaching Attending Note Name of Resident: Carey Gamboa ATTENDING PHYSICIAN STATEMENT I saw and evaluated the patient. I reviewed the resident's note and discussed the case with the resident. I agree with the resident's findings and plan as documented. SUBJECTIVE: Seen and examined with resident; this is a 63 y/o AAF with a PMH significant for severe CHF (echo to be discussed in next section), hyperthyroid (self-DC'd medications, s/p STEINBERG lost to followup), CKD-V, CAD s/p PCI(2012)/CABG, KATINA, HLD , IDDM, Obesity. She is well known to the medicine service. She presents with Afib with RVR and was aparently sent in for cardiac monitoring prior to nephrostomy tube placement planned for 10/19 by IR for pelvic caliectasis (off all home ASA, etc. for procedure). She was seen to be tachycardic to the 120s- 130s and was in the 100s-120s when I was there; on Coreg XR 40mg confirmed with the pharmacy. She didn't take it today and got her dose in the ER which only mildly helped. She was on PO antithyroid medication but is off it; PTU elevated LFTs per the pt and methimazole made her sick; she self-DC'd her PTU aproximately 3 weeks ago without speaking to her endocrine MD. She has not seen her deep submergence vehicle operator since 07/2018 when she got STEINBERG and was since lost to followup. She Describes a history of 40lb weight loss. Spoke to her outside machinist and her deep submergence vehicle operator; recommended heparin as it could be turned off prior to nephrostomy tube. Endo stated that he will evaluate her in the AM given the history of newly mildly low WBC. 10 sys ROS done and negative aside from HPI PMH and PSH reviewed Socially negative for EtOH or tobacco abuse FH asked and noncontributory OBJECTIVE: VS, labs, imaging reviewed NAD, resting in chair, tearful Irregularly irregular, tachycardic, no mukul mgr but less loud than normal heart sounds. Lung exam limited by habitus but mostly clear. Sym expansion NT ND +BS +2-3 pitting edema sym b/l with +pedal pulses CN2-12 grossly intact, no fnd Labs show a WBC count of 3, Hb 10, MCV 77, Cr 3.5, alk [place] 131[place] [address] (lower than last value), troponin 0.21; TSH is <0.01 and albumin is 2.9. EKG shows afib with RVR to 130s Echo 08/16 shows EF 30% with hypokinesis globally and akinesis in inferior wall with known valvular abnormalities CXR reviewed; similar to past. Prior CT abdomen/pelvis from earlier this month reviewed. ASSESSMENT AND PLAN: Mrs. Gonzalez presents with afib with RVR after self-DCing her hyperthyroidism medication. She has severe CHF but is not requiring O2 and the elevation in BNP and troponin likely 2/2 rate. Discussed with endocrine and cardiology. 1) Atrial Fibrillation with RVR -Likely due to uncontrolled hyperthyroidism; would need to control this first to r/o any other causes. LA size on prior echo noted. No need to repeat echo. -Avoid all negative inotropes due to low EF -Continue home XR coreg; PRN metoprolol IV to keep HR <100. Titrate up coreg as needed. Spoke with cardiology; due to elevated CHADSVASC2 risks are outweighed by benefits so will empirically anticoagulate. will therefore use heparin drip. This is due to upcomming procedure for need for nephrostomy tube; can convert to NOAC post nephrostomy when clear by IR. -Control the underlying problem 2) Uncontrolled Hyperthyroidism -She is found to have TSH that is <0.01 and FT4/T3 pending. Discussed case with endocrine. As she never had issues prior with her WBC count being low and given the risks of agranulocytosis will hold off on any antithyroid medication for now and endocrine will follow CBC and based on that make recs in the morning. No need for glucocorticoids at this juncture. Encouraged to use BB to control HR. She is s/p STEINBERG tx in july but was lost to followup so we will have to check those records as well. 3) Pelvic Caliectasis -She needs nephrostomy placement; was planned for wednesday. Holding home anticoag (she was doing so as OP), using heparin instead of lovenox -Monitor UOP and renal function 4) CKD-V -At baseline; monitor BMP and UOP. If worsens consult nephro. 5) CAD s/p PCI and CABG -Can go ahead and hold anticoag; stents are remote. Continue BB. 6) IDDM -Continue SSI 7) KATINA -Offer inpatient CPAP; risk for AFib 8) HTN -Monitor BP as titrating up coreg. 9) History of severe mixed CHF -BNP where it was at her last lab check; likely rate related with renal retention. Saturating well on RA. Can consider a dose of lasix if she needs but this is not urgent now. Would err on the side of monitoring QD weights, fluid, and sodium restriction. 10) Obesity --Astronautical Engineer when clinically appropriate 11) Hypoalbuminemia -Prealbumin as an outpatient. 12) Elevated Alk Phos -Check GGt; she had sludging seen on her CT done earlier this month. If sympotmatic consider US but not urgent at this time; will focus on the presenting issues. 13) Elevated troponin -Likely not ACS; given the rate w/ afib and degree of CKD she is likely retaining from cardiac strain. Full Code
--- NOTE | 2018-10-16 21:08 | HP ---
CHIEF COMPLAINT: Elevated heart rate, palpitations PCP: William Gonzales HISTORY OF PRESENT ILLNESS: Patient is a 63 year old female with history of CHF, SD s/p stents, CAD, DMII, hyperthyroidism, CKD stage V, HTN, HLD, presents with complaint of chest tightness, palpitations. States that she was sent by her urologist and pattern grader cutter to "monitor her creatinine, and heart rate'. Patient endorses that she was diagnosed with Hyperthyroidism around March, with symptoms of elevated heart rate, and difficulty breathing. She was initially on PTU, however states that she had "liver problems" and was stopped taking the medication without discussing with surgical first assistant. States that she was prescribed Methimazole by her PCP, but did not take the medication yet. She complains of abdominal swelling and endorses gaining one pound per day as a result. ER course was notable for: (1) Coreg CR 40mg PO (2) EKG: Afib with RVR, rate 130bpm. (3) TSH < 0.01 Recent Travel: denies PAST MEDICAL HISTORY: CHF, SD, CAD, DMII, hyperthyroidism, CKD stage V, HTN, HLD , PAST SURGICAL HISTORY: CABG s/p stents Social History: Smoking: denies Alcohol: denies Drugs: denies Family History: Mother: breast cancer, 67 years old Father: diabetes mellitus Sister: breast cancer, 45 years old Allergies Penicillins Allergy (Intermediate, Verified 10/16/18 15:24) Hives Iodinated Contrast- Oral and IV Dye [Iodinated Contrast Media - IV Dye] Allergy (Verified 10/16/18 15:24) tiotropium [From Spiriva with HandiHaler] Adverse Reaction (Verified 10/16/18 15 :24) HOME MEDICATIONS: Home Medications Medication Instructions Recorded Aspirin [ASA -] 81 mg PO DAILY 09/07/18 Cholecalciferol (Vitamin D3) 5,000 unit PO DAILY 09/07/18 [Vitamin D -] Clonazepam 0.5 mg PO QID 09/07/18 Ezetimibe [Zetia] 10 mg PO DAILY 09/07/18 Ferrous Gluconate [Iron] 256 mg PO DAILY 09/07/18 Fluticasone/Vilanterol [Breo 1 each IH DAILY 09/07/18 Ellipta 100-25 Mcg INH] Insulin Aspart [Novolog] 10 unit SQ ASDIR 09/07/18 Insulin Glargine,Hum.rec.anlog 0 unit SQ ASDIR 09/07/18 [Lantus] Prasugrel HCl [Effient] 10 mg PO DAILY 09/07/18 Rosuvastatin Calcium [Crestor] 10 mg PO DAILY 09/07/18 Insulin Sliding Scale [Novolog 1 vial SQ ACHS units 09/15/18 Vial Sliding Scale -] REVIEW OF SYSTEMS CONSTITUTIONAL: Admits: generalized weakness. Absent: fever, chills, diaphoresis, malaise, loss of appetite, weight change HEENT: Absent: rhinorrhea, nasal congestion, throat pain, throat swelling, difficulty swallowing, mouth swelling, ear pain, eye pain, visual changes CARDIOVASCULAR: Admits: palpitations, chest tightness. Absent: chest pain, syncope, irregular heart rate, lightheadedness, peripheral edema RESPIRATORY: Absent: cough, shortness of breath, dyspnea with exertion, orthopnea, wheezing, stridor, hemoptysis GASTROINTESTINAL: Admits: abdominal distension. Absent: abdominal pain, nausea, vomiting, diarrhea , constipation, melena, hematochezia GENITOURINARY: Absent: dysuria, frequency, urgency, hesitancy, hematuria, flank pain, genital pain MUSCULOSKELETAL: Absent: myalgia, arthralgia, joint swelling, back pain, neck pain SKIN: Absent: rash, itching, pallor HEMATOLOGIC/IMMUNOLOGIC: Absent: easy bleeding, easy bruising, lymphadenopathy, frequent infections ENDOCRINE: Admits: weight gain. Absent: unexplained weight loss, heat intolerance, cold intolerance NEUROLOGIC: Absent: headache, focal weakness or paresthesias, dizziness, unsteady gait, seizure, mental status changes, bladder or bowel incontinence PSYCHIATRIC: Admits: depression. Absent: anxiety, suicidal or homicidal ideation, hallucinations. PHYSICAL EXAMINATION Vital Signs - 24 hr 10/16/18 15:21 Temperature 97.8 F Pulse Rate 130 H Respiratory 16 Rate Blood Pressure 121/80 O2 Sat by Pulse 100 Oximetry (%) GENERAL: Awake, alert, and fully oriented, in no acute distress. HEAD: Normal with no signs of trauma. EYES: Pupils equal, round and reactive to light, extraocular movements intact, sclera anicteric, conjunctiva clear. No exophthalmos. EARS, NOSE, THROAT: Ears normal, nares patent, oropharynx clear without exudates. Moist mucous membranes. NECK: Normal range of motion, supple without lymphadenopathy. nodular, Thyromegaly palpated on right side. Nontender. LUNGS: Breath sounds equal, clear to auscultation bilaterally. No wheezes, and no crackles. No accessory muscle use. HEART: Irregular rate and rhythm, normal S1 and S2 without murmur, rub or gallop. ABDOMEN: Obese. Soft, distended. Diffusely tender to light palpation X4 quadrants. Normoactive bowel sounds X4 quadrants. No guarding, no rebound tenderness. No hepatomegaly palpated or percussed. MUSCULOSKELETAL: Normal range of motion at all joints. No bony deformities or tenderness. UPPER EXTREMITIES: 2+ radial pulses b/l, warm, well-perfused. LOWER EXTREMITIES: 1+ dorsalis pedis pulses, warm, well-perfused. No calf tenderness. 2+ lower extremity edema B/L lower extremities. NEUROLOGICAL: Cranial nerves II-XII intact. Normal speech. PSYCHIATRIC: Cooperative. Good eye contact. Appropriate mood and affect upon my encounter. SKIN: Warm, dry. Laboratory Results - last 24 hr 10/16/18 10/16/18 10/16/18 16:54 16:54 16:54 WBC 3.5 L RBC 4.36 Hgb 10.5 L Hct 33.7 MCV 77.3 L MCH 24.1 L MCHC 31.2 L RDW 16.6 H Plt Count 169 MPV 9.2 D Absolute Neuts (auto) 1.9 Neutrophils % 53.9 Lymphocytes % 28.7 Monocytes % 15.7 H Eosinophils % 0.8 Basophils % 0.9 Nucleated RBC % 0 PT with INR 15.80 H INR 1.34 H PTT (Actin FS) 28.8 Sodium 138 Potassium 4.2 Chloride 104 Carbon Dioxide 23 Anion Gap 11 BUN 86 H Creatinine 3.5 H Creat Clearance w eGFR 13.19 Random Glucose 173 H Calcium 8.4 L Total Bilirubin 0.9 AST 28 ALT 15 Alkaline Phosphatase 131 H Troponin I 0.21 H B-Natriuretic Peptide 06014.8 H Total Protein 6.7 Albumin 2.9 L TSH Urine Color Urine Appearance Urine pH Ur Specific [place] Urine Protein Urine Glucose (UA) Urine Ketones Urine Blood Urine Nitrite Urine Bilirubin Urine Urobilinogen Ur Leukocyte Esterase Blood Type Antibody Screen 10/16/18 10/16/18 10/16/18 16:54 16:57 16:57 WBC RBC Hgb Hct MCV MCH MCHC RDW Plt Count MPV Absolute Neuts (auto) Neutrophils % Lymphocytes % Monocytes % Eosinophils % Basophils % Nucleated RBC % PT with INR INR PTT (Actin FS) Sodium Potassium Chloride Carbon Dioxide Anion Gap BUN Creatinine Creat Clearance w eGFR Random Glucose Calcium Total Bilirubin AST ALT Alkaline Phosphatase Troponin I B-Natriuretic Peptide Total Protein Albumin TSH < 0.01 L Urine Color Yellow Urine Appearance Clear Urine pH 5.0 Ur Specific [place] 1.012 Urine Protein Negative Urine Glucose (UA) Negative Urine Ketones Negative Urine Blood Negative Urine Nitrite Negative Urine Bilirubin Negative Urine Urobilinogen Negative Ur Leukocyte Esterase Negative Blood Type A POSITIVE Antibody Screen Negative ASSESSMENT/PLAN: Patient is a 63 year old female with history of CHF, SD s/p stents, CAD, DMII, hyperthyroidism, CKD stage V, HTN, HLD, presents with complaint of chest tightness, palpitations. Afib- -Unclear if it is new onset. Patient denies prior history of Afib. -Coreg 40mg PO daily. May need to increase dose. -Metoprolol 2.5mg IV X4 for further rate control -Begin Heparin drip. Discussed with Cardiology (Dr. Dodson) -Cardiac monitoring Hyperthyroidism, poorly controlled -TSH < 0.01 -Noted to have leukopenia currently without agranulocytosis. -Discussed with Dr. Gonsales- will hold Methimazole for now, and follow up her repeat labs in AM. Will continue Beta Nina therapy for now. -F/U T3, free T4 -F/U endocrinology consult (Dr. Gonsales) Elevated Troponin -Likely secondary to demand ischemia. Will follow. -Patient has history of elevated troponins. Caliectasis -Patient for nephrostomy tube on Friday 10/19 -Hold home anticoagulants. Patient is on Heparin drip for Afib. CKD stage V -Baseline Cr ~3.2 -Monitor, consider nephrology consult. DM -BGM ACHS -ISS ACHS CHF -BNP 82554, not significantly changed from prior admission one month ago. -Daily weights -Strict intake and output CAD -Patient is s/p cardiac stents. -Holding home aspirin, and prasugrel in anticipation of nephrostomy tube. HTN -Coreg 40mg PO daily. -Follow vital signs closely FEN -No IV fluids indicated -Follow CMP -Diabetic diet Prophylaxis -Patient is on Heparin drip for Afib Disposition -Admit to Telemetry floor. Visit type - Emergency Visit Emergency Visit: Yes ED Registration Date: 10/16/18 Care time: The patient presented to the Emergency Department on the above date and was hospitalized for further evaluation of their emergent condition. - New Patient This patient is new to me today: Yes Date on this admission: 10/17/18 - Critical Care Critical Care patient: No
[2018-10-16] MEDS ORDERED: METOPROLOL TARTRATE 5 MG/5 ML VIAL IVPUSH ONE ×2 (21:35→23:11)
[2018-10-16] MEDS ORDERED: METOPROLOL TARTRATE 5 MG/5 ML VIAL ONE (21:38)
[2018-10-16] MEDS ORDERED: HEPARIN NA (PORCINE) 5,000 UNITS/ML 1ML VIAL IVPUSH PRN ×2 (21:44)
[2018-10-16] MEDS ORDERED: HEPARIN INFUSION - 25,000 UNITS/500 ML INFUS.BAG IVPB ONE (22:18)
[2018-10-16] MEDS: HEPARIN SOD,PORK IN 0.45% NACL 25,000 UNITS/500 ML INFUS.BAG IVPB SCH (22:27)
[2018-10-17] MEDS ORDERED: METOPROLOL TARTRATE 5 MG/5 ML VIAL IVPUSH ONE ×2 (02:04→06:18)
[2018-10-17] MEDS: HEPARIN SOD,PORK IN 0.45% NACL 25,000 UNITS/500 ML INFUS.BAG IVPB SCH (06:46)
[2018-10-17] MEDS: INSULIN SLIDING SCALE (NOVOLOG) 1 VIAL SQ SCH ×4 (06:49→21:39)
[2018-10-17 07:03] LABS: BASO % 0.8 % (0-2.0); EOS % 1.5 % (0-4.5); HEMATOCRIT 33.2 % (32.4-45.2); HEMOGLOBIN 10.1 GM/dL (10.7-15.3); LYMPH % 33.8 % (8-40); MCH 23.3 pg (25.7-33.7); MCHC 30.5 g/dl (32.0-36.0); MEAN CELL VOLUME 76.5 fl (80-96); MEAN PLT VOLUME 8.7 fl (7.5-11.1); MONO % 14.8 % (3.8-10.2); NEUT % 49.1 % (42.8-82.8); PLATELET COUNT 153 K/MM3 (134-434); RBC 4.34 M/mm3 (3.60-5.2); RDW 16.5 % (11.6-15.6); WHITE BLOOD COUNT 3.8 K/mm3 (4.0-10.0)
--- NOTE | 2018-10-17 09:01 | CON.CARD ---
Consult Consult Specialty:: cardio - History of Present Illness Chief Complaint: rising creatinine History of Present Illness: 63 F here with rising creatinine in setting of urinary obstruction and CHF. Pt recently here for multiple visits of tachycardia/AT with decompensated HF/ cardiorenal syndrome in setting of prolonged period of hyperthyroidism. She developed presyncope and hypotension (praneeth postural) requiring decrease in mult CV meds. Since home, she continued to have hypotension and persistent tachycardia, metoprolol changed to carvedilol (CR) per her request. dizziness improved but she began to experience her HF sx's of orthopnea, fluid in belly. wt trended up. creat initially 2.8 at home, up to 3.0 and then last week 3.5. 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 due to the bump in creatinine, dr guzman rec'd percutaneous nephrostomy tubes under IR. her aspirin and plavix were held as of 10/14, with plan to perform the procedure on 10/[address] martino. i decr'd torsemide 80 to 40 qd on 10/14 b/c of the creatinine elevation. given she reported ongoing sx's of chf, i suggested she be hospitalized for HF monitoring/diuresis and daily labs. she has had no sob or orthopnea (sleeping with HOB elevated here). no dizziness here. no palpitations, cp. leg swelling stable PMH: CAD, PCIs diast CHF-->syst CHF CKD DM anemia HTN - Past Medical History Cardio/Vascular: Yes: AFIB, CAD, CHF, HTN, Hyperlipdemia, CA, Mitral Insufficiency, Pulmonary Hypertension Pulmonary: Yes: Sleep Apnea Renal/: Yes: Renal Failure ...: No Endocrine: Yes: Diabetes Mellitus - Past Surgical History Past Surgical History: Yes: Stent - Alcohol/Substance Use Hx Alcohol Use: No History of Substance Use: reports: None - Smoking History Smoking history: Never smoked Have you smoked in the past 12 months: No Aproximately how many cigarettes per day: 0 - Social History ADL: Independent History of Recent Travel: No Home Medications - Allergies Allergies/Adverse Reactions: Allergies Allergy/AdvReac Type Severity Reaction Status Date / Time Penicillins Allergy Intermediate Hives Verified 10/16/18 15:24 Iodinated Contrast- Oral and Allergy Verified 10/16/18 15:24 IV Dye [Iodinated Contrast Media - IV Dye] tiotropium AdvReac Verified 10/16/18 15:24 [From [facility] with HandiHaler] - Home Medications Home Medications: Ambulatory Orders Aspirin [ASA -] 81 mg PO DAILY 09/07/18 Cholecalciferol (Vitamin D3) [Vitamin D -] 5,000 unit PO DAILY 09/07/18 Clonazepam 0.5 mg PO QID 09/07/18 Ezetimibe [Zetia] 10 mg PO DAILY 09/07/18 Ferrous Gluconate [Iron] 256 mg PO DAILY 09/07/18 Fluticasone/Vilanterol [Breo Ellipta 100-25 Mcg INH] 1 each IH DAILY 09/07/18 Insulin Aspart [Novolog] 10 unit SQ ASDIR 09/07/18 Insulin Glargine,Hum.rec.anlog [Lantus] 0 unit SQ ASDIR 09/07/18 Prasugrel HCl [Effient] 10 mg PO DAILY 09/07/18 Rosuvastatin Calcium [Crestor] 10 mg PO DAILY 09/07/18 Insulin Sliding Scale [Novolog Vial Sliding Scale -] 1 vial SQ ACHS units 09/15 Family Disease History - Family Disease History Family Disease History: CA: Mother (breast), Sister (breast), Daughter (colon) Review of Systems - Review of Systems Constitutional: denies: Chills, Fever Eyes: denies: Eye Pain HENT: denies: Nasal Congestion Neck: denies: Stiffness Cardiovascular: denies: Palpitations Respiratory: denies: Orthopnea, PND Gastrointestinal: denies: Diarrhea, Rectal Bleeding Genitourinary: denies: Burning, Hematuria Musculoskeletal: denies: Muscle Pain Integumentary: denies: Rash Neurological: denies: Numbness, Seizure, Syncope Endocrine: denies: Excessive Sweating Hematology/Lymphatic: denies: Excessive Bleeding Vital Signs: Vital Signs Temperature 98.1 F 10/17/18 06:49 Pulse Rate 124 H 10/17/18 06:49 Respiratory Rate 20 10/17/18 06:49 Blood Pressure 122/73 10/17/18 06:49 O2 Sat by Pulse Oximetry (%) 100 10/16/18 23:00 Constitutional: Yes: Well Nourished, No Distress Eyes: No: Sclera Icterus HENT: No: Nasal Congestion Neck: No: Decreased ROM Respiratory: Yes: CTA Bilaterally. No: Accessory Muscle Use, Rales, Wheezes Gastrointestinal: Yes: Normal Bowel Sounds. No: Distention, Hepatomegaly, Palpable Mass, Tenderness Cardiovascular: Yes: Regular Rate and Rhythm JVD: Yes Carotid Bruit: No PMI: Non-Displaced Heart Sounds: Yes: S1, S2. No: Gallop Murmur: No: Systolic Murmur, Diastolic Murmur Musculoskeletal: Yes: Other (No kyphosis) Extremities: No: Cool, Cyanosis Edema: Yes (1+ pretib) Peripheral Pulses: 2+ Left Carotid, 2+ Right Carotid, 2+ Left Doralis Pedis, 2+ Right Dorsalis Pedis Integumentary: No: Jaundice Neurological: Yes: Alert, Oriented (x3) Psychiatric: No: Agitated - Other Data Labs, Other Data: CBC, BMP 10/17/18 05:50 INR, PTT INR 1.34 (0.83-1.09) H 10/16/18 16:54 Troponin, BNP 10/16/18 10/16/18 16:54 23:11 Troponin I 0.21 H 0.24 H B-Natriuretic Peptide 82151.8 H Troponin, BNP 10/16/18 10/16/18 16:54 23:11 Troponin I 0.21 H 0.24 H B-Natriuretic Peptide 92584.8 H Laboratory Tests 10/16/18 10/16/18 10/16/18 16:54 16:54 23:11 WBC Hgb Plt Count Sodium 138 Potassium 4.2 Carbon Dioxide 23 BUN 86 H Creatinine 3.5 H AST 28 ALT 15 Troponin I 0.21 H 0.24 H TSH < 0.01 L 10/17/18 05:50 WBC 3.8 L Hgb 10.1 L Plt Count 153 Sodium Potassium Carbon Dioxide BUN Creatinine AST ALT Troponin I TSH Assessment/Plan ECG: organized atrial activity: likely PAT with APCs, no definite flutter present. no fib. LVH with repol abn unchanged vs prior CXR: clear lungs Echo 07/2018 inf wall akinetic, other phillip severely hypokinetic, LV mildly dilated, RV function moderately reduced, LV function severely reduced, moderate MR, EF 30% Echo 12/2016: TDS. nl LV size/EF. mild LVH. grade 2 d.d., hi E/e' = high LAP. nl RV. mild LAE. mild-mod MR, mod TR. mild pHTN (46 mmHg) [facility] 2014: unchanged 70-80% distal RCA lesion. patent mLAD stent. 80-90% pLCX-- [employer] [facility] tele: tachycardia alternating with NSR in 60s. organized atrial activity in tachycardia, no definite flutter present (no fib)--likely AT with APCs. a/p: 63 yo female hx cad/pci, hyperthyroidism with associated tachycardia, palpitations, unintentional wt loss, acute on chronic labile HTN with mult med intolerances, mildly decompensated diast chf, and new LE edema (out of proportion to the degree of CHF), p/w le edema,sob. 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 - currently ? JVD on exam, with wt up from 3 wks ago baseline and orthopnea if lies flat. however she is not sob at present, so will defer torsemide to avoid further worsening of obstructive uropathy - bb dose limited by new hypotension/dizziness--has changed metoprolol succ to coreg CR and insists this causes her less dizziness - holding hydral, NTG patch (hypotension) - not on SHAN/ARB in setting of ckd obstructive uropathy, OBI on CKD: - probably new baseline creatinine in 3-3.3 range based on recent labs trends - currently worse sec to obstruction--for nephrostomy tube placement 10/19 by IR - hope to avoid HD LE swelling: - started at time of hyperthyroidism, and remains out of proportion to HF findings - responded well to wraps hyperthyroidism, sinus tach, PAT: - TSH remains undetectable - intolerant of methimazole (elevated LFTs). intolerant of PTU (nausea). - s/p radio-I ablation - high burden of ATach with LV systolic dysfunction, now with new afib - d/w'd dr moreno: only available intervention at this time is to resume low dose PTU (pt self-discontinued it at home) - metopr high dose appeared to control PAT burden better than carvedilol, however caused hypotension/dizzy and pt changed back. she declines changing back to metoprolol. (previously intolerant of atenolol, propranolol). - try incr coreg CR to 40 bid (to minimize hypotension effects) - no amiodarone in light of uncontrolled hyperthyroidism. no digoxin in light of very low GFR. no CCB in light of systolic dysfxn and previous intolerance ( edema) - given no fib present, and no definitive atr flutter thus far, will defer AC for now. Elevated troponin - borderline trop similar to prior baseline values, flat trend--not c/w acs. - sec to HF/CKD labile HTN: -mult med intolerances in past -bp trending low of late sec to low EF CAD, prior NSTEMI/PCI: -holding DAPT (aspirin/effient) for perc nephrostomy tube placemtn -cont home statin (max tolerated dose rosuva 20 with drug holidays), zetia -bb as bp tolerates OBI on CKD: -baseline cr near 3.0 -worsening here, with diuresis for HF, plan as above anemia: -chronic. baseline hgb 9-10 -stable counts here preop CV eval -RCRI = 4, decr'd functional capacity. -for low risk procedure (perc nephrostomy tubes). -her PSVT is as rate-controlled as possible, a chronic/stable ongoing problem she has tolerated well for many months and there are no further tx options available (as disc'd abov) -her CHF is as optimized as possible, with mild volume overload in a compensated fashion that is stable. -she has had no angina or ischemia since last PCI. -cleared to proceed at acceptable CV risk of complications.
[2018-10-17 09:40] LABS: BLOOD UREA NITROGEN 88 mg/dL (7-18); GLUCOSE,RANDOM 183 mg/dL (74-106)
[2018-10-17 09:41] LABS: ALBUMIN 2.7 g/dl (3.4-5.0); ANION GAP 10 MMOL/L (8-16); CALCIUM 8.7 mg/dL (8.5-10.1); CHLORIDE 103 mmol/L (98-107); CO2 25 mmol/L (21-32); CREATININE 3.4 mg/dL (0.55-1.3); MAGNESIUM 2.2 mg/dL (1.8-2.4); PHOSPHOROUS 3.6 mg/dL (2.5-4.9); POTASSIUM 4.2 mmol/L (3.5-5.1); SODIUM 138 mmol/L (136-145); TOT PROT 6.5 g/dl (6.4-8.2)
[2018-10-17 09:42] LABS: ALK PHOS 123 U/L (45-117); BILIRUBIN,TOTAL 0.8 mg/dL (0.2-1); SGOT/AST 23 U/L (15-37); SGPT/ALT 15 U/L (13-61)
[2018-10-17] MEDS ORDERED: CARVEDILOL PHOSPHATE CR 40 MG CAPSULE (FP) PO SCH (10:00)
[2018-10-17] MEDS ORDERED: PT OWN MED DRAWER 7, Y5N ONE ×2 (10:49→21:32)
[2018-10-17] MEDS: PROPYLTHIOURACIL 50 MG TABLET (UD) PO SCH ×2 (11:05→21:41)
[2018-10-17] MEDS: CHOLECALCIFEROL (VITAMIN D3) 1,000 UNIT TABLET (FP) PO SCH (11:06)
[2018-10-17] MEDS: EZETIMIBE 10 MG TABLET (FP) PO SCH (11:07)
--- NOTE | 2018-10-17 13:27 | PN ---
Physical Exam: SUBJECTIVE: Patient seen and examined at bedside. no acute events overnight- patient is still endorsing palpitations however she is not having any chest pain currently. she feels that her belly is distended . she denies any CP/SOB/N/ V fevers or chills. OBJECTIVE: Vital Signs Period Temp Pulse Resp BP Sys/Shankar Pulse Ox Last 24 Hr 97.8 F-98.6 F 119-130 16-20 108-126/67-85 100-100 GENERAL: The patient is awake, alert, and fully oriented, in no acute distress. EYES: PERRL, extraocular movements intact, sclera anicteric, conjunctiva clear. No ptosis. NECK: thyromegaly appreciated on the right side LUNGS: CTA B/L; no rales, rhonchi or wheezing. HEART: tachycardic, irregular rhythm S1, S2 without murmur, rub or gallop. ABDOMEN: Soft, distended , normoactive bowel sounds, no guarding, no rebound, no hepatosplenomegaly, no masses. EXTREMITIES: 2+ pulses, warm, well-perfused, no edema. PSYCH: Normal mood, normal affect. SKIN: Warm, dry, normal turgor, no rashes or lesions noted Laboratory Results - last 24 hr 10/16/18 10/16/18 10/16/18 16:54 16:54 16:54 WBC 3.5 L RBC 4.36 Hgb 10.5 L Hct 33.7 MCV 77.3 L MCH 24.1 L MCHC 31.2 L RDW 16.6 H Plt Count 169 MPV 9.2 D Absolute Neuts (auto) 1.9 Neutrophils % 53.9 Lymphocytes % 28.7 Monocytes % 15.7 H Eosinophils % 0.8 Basophils % 0.9 Nucleated RBC % 0 PT with INR 15.80 H INR 1.34 H PTT (Actin FS) 28.8 Sodium 138 Potassium 4.2 Chloride 104 Carbon Dioxide 23 Anion Gap 11 BUN 86 H Creatinine 3.5 H Creat Clearance w eGFR 13.19 POC Glucometer Random Glucose 173 H Hemoglobin A1c % Calcium 8.4 L Phosphorus Magnesium Total Bilirubin 0.9 AST 28 ALT 15 Alkaline Phosphatase 131 H Troponin I 0.21 H B-Natriuretic Peptide 27207.8 H Total Protein 6.7 Albumin 2.9 L TSH Free T4 Urine Color Urine Appearance Urine pH Ur Specific Branch Urine Protein Urine Glucose (UA) Urine Ketones Urine Blood Urine Nitrite Urine Bilirubin Urine Urobilinogen Ur Leukocyte Esterase Blood Type Antibody Screen 10/16/18 10/16/18 10/16/18 16:54 16:57 16:57 WBC RBC Hgb Hct MCV MCH MCHC RDW Plt Count MPV Absolute Neuts (auto) Neutrophils % Lymphocytes % Monocytes % Eosinophils % Basophils % Nucleated RBC % PT with INR INR PTT (Actin FS) Sodium Potassium Chloride Carbon Dioxide Anion Gap BUN Creatinine Creat Clearance w eGFR POC Glucometer Random Glucose Hemoglobin A1c % Calcium Phosphorus Magnesium Total Bilirubin AST ALT Alkaline Phosphatase Troponin I B-Natriuretic Peptide Total Protein Albumin TSH < 0.01 L Free T4 Urine Color Yellow Urine Appearance Clear Urine pH 5.0 Ur Specific Branch 1.012 Urine Protein Negative Urine Glucose (UA) Negative Urine Ketones Negative Urine Blood Negative Urine Nitrite Negative Urine Bilirubin Negative Urine Urobilinogen Negative Ur Leukocyte Esterase Negative Blood Type A POSITIVE Antibody Screen Negative 10/16/18 10/16/18 10/17/18 23:09 23:11 05:49 WBC RBC Hgb Hct MCV MCH MCHC RDW Plt Count MPV Absolute Neuts (auto) Neutrophils % Lymphocytes % Monocytes % Eosinophils % Basophils % Nucleated RBC % PT with INR INR PTT (Actin FS) Sodium Potassium Chloride Carbon Dioxide Anion Gap BUN Creatinine Creat Clearance w eGFR POC Glucometer [id number] Random Glucose Hemoglobin A1c % Calcium Phosphorus Magnesium Total Bilirubin AST ALT Alkaline Phosphatase Troponin I 0.24 H B-Natriuretic Peptide Total Protein Albumin TSH Free T4 Urine Color Urine Appearance Urine pH Ur Specific Branch Urine Protein Urine Glucose (UA) Urine Ketones Urine Blood Urine Nitrite Urine Bilirubin Urine Urobilinogen Ur Leukocyte Esterase Blood Type Antibody Screen 10/17/18 10/17/18 10/17/18 05:50 05:50 05:50 WBC 3.8 L RBC 4.34 Hgb 10.1 L Hct 33.2 MCV 76.5 L MCH 23.3 L MCHC 30.5 L RDW 16.5 H Plt Count 153 MPV 8.7 Absolute Neuts (auto) 1.9 Neutrophils % 49.1 Lymphocytes % 33.8 Monocytes % 14.8 H Eosinophils % 1.5 D Basophils % 0.8 Nucleated RBC % 0 PT with INR INR PTT (Actin FS) Sodium 138 Potassium 4.2 Chloride 103 Carbon Dioxide 25 Anion Gap 10 BUN 88 H Creatinine 3.4 H Creat Clearance w eGFR 13.64 POC Glucometer Random Glucose 183 H Hemoglobin A1c % 8.7 H Calcium 8.7 Phosphorus 3.6 Magnesium 2.2 Total Bilirubin 0.8 AST 23 ALT 15 Alkaline Phosphatase 123 H Troponin I B-Natriuretic Peptide Total Protein 6.5 Albumin 2.7 L TSH Free T4 2.38 H Urine Color Urine Appearance Urine pH Ur Specific Branch Urine Protein Urine Glucose (UA) Urine Ketones Urine Blood Urine Nitrite Urine Bilirubin Urine Urobilinogen Ur Leukocyte Esterase Blood Type Antibody Screen 10/17/18 10/17/18 06:58 11:10 WBC RBC Hgb Hct MCV MCH MCHC RDW Plt Count MPV Absolute Neuts (auto) Neutrophils % Lymphocytes % Monocytes % Eosinophils % Basophils % Nucleated RBC % PT with INR INR PTT (Actin FS) 63.0 H Sodium Potassium Chloride Carbon Dioxide Anion Gap BUN Creatinine Creat Clearance w eGFR POC Glucometer 144 Random Glucose Hemoglobin A1c % Calcium Phosphorus Magnesium Total Bilirubin AST ALT Alkaline Phosphatase Troponin I B-Natriuretic Peptide Total Protein Albumin TSH Free T4 Urine Color Urine Appearance Urine pH Ur Specific Branch Urine Protein Urine Glucose (UA) Urine Ketones Urine Blood Urine Nitrite Urine Bilirubin Urine Urobilinogen Ur Leukocyte Esterase Blood Type Antibody Screen Active Medications Generic Name Dose Route Start Last Admin Trade Name Freq PRN Reason Stop Dose Admin Carvedilol 40 mg 10/17/18 22:00 Coreg Cr - PO BID [facility] Cholecalciferol 5,000 unit 10/17/18 10:00 10/17/18 11:06 Vitamin D3 - PO 5,000 unit DAILY LALO Administration Ezetimibe 10 mg 10/17/18 10:00 10/17/18 11:07 Zetia - PO 10 mg DAILY LALO Administration Insulin Aspart 1 vial 10/17/18 07:00 10/17/18 11:10 Novolog Vial Sliding Scale - SQ Not Given ACHS [facility] Protocol Non-Formulary Medication 1 each 10/17/18 10:00 Fluticasone/Vilanterol [Breo Ellipta 100-25 Mcg Inh] IH DAILY [facility] Propylthiouracil 50 mg 10/17/18 10:00 10/17/18 11:05 Ptu - PO 50 mg BID LALO Administration Rosuvastatin Calcium 10 mg 10/17/18 22:00 Crestor - PO [facility] ASSESSMENT/PLAN: Patient is a 63 year old female with history of CHF, PR s/p stents, CAD, DMII, hyperthyroidism, CKD stage V, HTN, HLD, presents with complaint of chest tightness, palpitations. Afib: -patient started on heparin drip here -as per Dr. Chen, will defer from starting a NOAC given patient going for procedure -Coreg 40mg daily -continue tele monitoring Hyperthyroidism: -TSH <0.01 -spoke with Dr. Gonsales- continue with PTU 50 BID and no need to check T3 -c/w beta isrrael therapy Caliectasis: -patient for nephrostomy tube placement on friday 10/19 -holding home AC; currently on Heparin drip CKD stage V: -baseline Cr 3.2 CHF -monitor daily weights -I's and O's DM -BGM ACHS -ISS ACHS CAD -holding aspirin and prasugrel in light of procedure on 10/19 HTN -c/w coreg 40 daily F/E/N -no fluids -replete electrolytes accordingly -diabetic diet PPX: heparin drip for Afib Visit type - Emergency Visit Emergency Visit: Yes ED Registration Date: 10/16/18 Care time: The patient presented to the Emergency Department on the above date and was hospitalized for further evaluation of their emergent condition. - New Patient This patient is new to me today: Yes Date on this admission: 10/17/18 - Critical Care Critical Care patient: No
--- NOTE | 2018-10-17 13:54 | PN ---
Teaching Attending Note Name of Resident: Charmaine Banda ATTENDING PHYSICIAN STATEMENT I saw and evaluated the patient. I reviewed the resident's note and discussed the case with the resident. I agree with the resident's findings and plan as documented. SUBJECTIVE:c/o palpitations. states abdomen feels distended and bloated. denies CP, SOB, fever, chills, N/V/C/D was scheduled for R nephrostomy tube placement on wednesday due to obstructing nephrolithasis OBJECTIVE: Last Vital Signs Temp Pulse Resp BP Pulse Ox 98.6 F 122 H 18 119/67 100 10/17/18 12:44 10/17/18 12:44 10/17/18 12:44 10/17/18 12:44 10/16/18 23:00 General NAD CV S1 S2 tachy lungs decreased breath sounds at bases. no wheezing abdomen soft +tender in LLQ, distended. +anasarca Extremities 2+ pitting edema ASSESSMENT AND PLAN: 63 yo F PMx DM, HTN, HLD, ND in 2012 s/p stents, CABG, Afib, asthma, hyperthyroidism s/p STEINBERG, CKD, anemiaca with mult med intolerances, with CP and palpitations 1. Acute on Chronic systolic CHF exacerbation- dry weight 205. toresmide was decreased recently due to obstructive uropathy. is currently not tachypnic or orthopnic, therefore diuretics being held. daily weights 2. Afib with RVR- multiple intolerances to medications. on max doses of coreg at this time. started on hep ggt. remains tachycardic. will attempt to control thyroid function in order to control HR. Unable to give other medications to control heart rate due to intolerances/medical contraindications. cardio on board 3. Thyrotoxicosis-s/p STEINBERG in the past. T3/T4 pending. stopped taking PTU because she couldnot tolerate it. re-started on low dose. will call endo if other therapies can be initiated to control. Cholestyramine for etc. monitor T3 4. Obstructive uropathy due to nephrolithasis- scheduled for R nephrostomy tube on 10/19. evaluated and optimized as stated by cardiology as her medical problems have been ongoing for several months and limited alternative therapies at this time. will see if can have tube placed tomorrow. 5. acute on CKD- likely in setting of obstructive nephropathy. will trend. hold fluids as pt is volume overloaded 6. Tropinemia- due to demand. flat trend. had recent PCI and no repeat CP since then. hold DAPT treatment as patient is going for nephrostomy tube 7. DVT ppx- hep ggt
--- NOTE | 2018-10-17 18:31 | EKG ---
Test Reason : Blood Pressure : / mmHG Vent. Rate : 130 BPM Atrial Rate : 111 BPM P-R Int : 000 ms QRS Dur : 080 ms QT Int : 334 ms P-R-T Axes : 000 008 190 degrees QTc Int : 491 ms ATRIAL FIBRILLATION WITH RAPID VENTRICULAR RESPONSE CANNOT RULE OUT ANTERIOR INFARCT (CITED ON OR BEFORE 10-AUG-2018) T WAVE ABNORMALITY, CONSIDER INFEROLATERAL ISCHEMIA ABNORMAL ECG WHEN COMPARED WITH ECG OF 07-SEP-2018 11:42, PROBABLY UNCHANGED RHYTHM Confirmed by JAMES TORRE MD ([id number]) on 10/17/2018 6:31:13 PM Referred By: Confirmed By:JAMES TORRE MD
[2018-10-17] MEDS: CARVEDILOL PHOSPHATE CR 40 MG CAPSULE (FP) PO SCH (21:41)
[2018-10-17] MEDS: ROSUVASTATIN CA 10 MG TABLET (FP) PO SCH (21:41)
--- NOTE | 2018-10-17 22:00 | CONSULT ---
Consult Consult Specialty:: endocrine Referred by:: lorna gomez MD Reason for Consultation:: hyperthyroidism symptomatic - History of Present Illness Chief Complaint: shortness of breath History of Present Illness: 63 year old female with history of hyperthyroidism,sp i 131 ablation 17.4mci i131,on 08/23/18,CHF, [place] s/p stents, CAD, DMII, CKD stage V, HTN, HLD, presents with complaint of chest tightness, palpitations. States that she was sent by her urologist and germination testing manager to "monitor her creatinine, and heart rate'. Patient has had , fast heart rate, and difficulty breathing. She was initially on PTU, however states that she had "liver problems" and was stopped taking the medication without my knowledge. States that she was prescribed Methimazole by her PCP, but did not take the medication yet. She complains of abdominal swelling and endorses gaining one pound per day as a result. she understands she needs to take ptu for control of symptoms until the effects of i131 start working. - History Source History Provided By: Patient - Past Medical History Cardio/Vascular: Yes: AFIB, CAD, CHF, HTN, Hyperlipdemia, [place], Mitral Insufficiency, Pulmonary Hypertension Pulmonary: Yes: Sleep Apnea Renal/: Yes: Renal Failure ...: No Endocrine: Yes: Diabetes Mellitus - Past Surgical History Past Surgical History: Yes: Stent - Alcohol/Substance Use Hx Alcohol Use: No History of Substance Use: reports: None - Smoking History Smoking history: Never smoked Have you smoked in the past 12 months: No Aproximately how many cigarettes per day: 0 - Social History ADL: Independent History of Recent Travel: No Home Medications - Allergies Allergies/Adverse Reactions: Allergies Allergy/AdvReac Type Severity Reaction Status Date / Time Penicillins Allergy Intermediate Hives Verified 10/16/18 15:24 Iodinated Contrast- Oral and Allergy Verified 10/16/18 15:24 IV Dye [Iodinated Contrast Media - IV Dye] tiotropium AdvReac Verified 10/16/18 15:24 [From [facility] with [employer]] - Home Medications Home Medications: Ambulatory Orders Aspirin [ASA -] 81 mg PO DAILY 09/07/18 Cholecalciferol (Vitamin D3) [Vitamin D -] 5,000 unit PO DAILY 09/07/18 Clonazepam 0.5 mg PO QID 09/07/18 Ezetimibe [Zetia] 10 mg PO DAILY 09/07/18 Ferrous Gluconate [Iron] 256 mg PO DAILY 09/07/18 Fluticasone/Vilanterol [Breo Ellipta 100-25 Mcg INH] 1 each IH DAILY 09/07/18 Insulin Aspart [Novolog] 10 unit SQ ASDIR 09/07/18 Insulin Glargine,Hum.rec.anlog [Lantus] 0 unit SQ ASDIR 09/07/18 Prasugrel HCl [Effient] 10 mg PO DAILY 09/07/18 Rosuvastatin Calcium [Crestor] 10 mg PO DAILY 09/07/18 Insulin Sliding Scale [Novolog Vial Sliding Scale -] 1 vial SQ ACHS units 09/15 Carvedilol Phosphate [Coreg Cr -] 40 mg PO DAILY 10/17/18 Meclizine HCl 25 mg PO Q6H PRN 10/17/18 Metolazone 2.5 mg PO DAILY 10/17/18 Nitroglycerin Patch [Nitro-Dur] 0.2 mg TD DAILY 10/17/18 Torsemide 20 mg PO TID 10/17/18 Family Disease History - Family Disease History Family Disease History: CA: Mother (breast), Sister (breast), Daughter (colon) Review of Systems - Review of Systems Constitutional: reports: Weakness HENT: reports: No Symptoms Neck: reports: No Symptoms Cardiovascular: reports: Edema, Palpitations, Shortness of Breath Respiratory: reports: Cough, Exercise Intolerance, Orthopnea, SOB, SOB on Exertion Gastrointestinal: reports: Bloating Genitourinary: reports: No Symptoms Breasts: reports: No Symptoms Reported Musculoskeletal: reports: Extremity Pain, Joint Swelling, Muscle Pain, Muscle Cramps, Muscle Weakness Neurological: reports: Numbness, Tremors, Unsteady Gait, Weakness Endocrine: reports: Unexplained Weight Gain Physical Exam Vital Signs: Vital Signs Temperature 97.8 F 10/17/18 17:28 Pulse Rate 128 H 10/17/18 17:28 Respiratory Rate 18 10/17/18 17:28 Blood Pressure 121/76 10/17/18 17:28 O2 Sat by Pulse Oximetry (%) 100 10/17/18 09:00 Constitutional: Yes: Anxious Eyes: Yes: EOM Intact HENT: Yes: Normocephalic Neck: Yes: Thyromegaly Cardiovascular: Yes: Tachycardia, Pulse Irregular Respiratory: Yes: On Nasal O2, Tachypnea Gastrointestinal: Yes: Abdomen, Obese ...Rectal Exam: Yes: Deferred Renal/: Yes: WNL Musculoskeletal: Yes: Back Pain, Joint Swelling, Muscle Pain, Muscle Weakness Edema: LLE: 3+, RLE: 2+ Neurological: Yes: Alert, Oriented Labs: CBC, BMP 10/17/18 05:50 10/17/18 05:50 Problem List - Problems (1) A-fib Code(s): I48.91 - UNSPECIFIED ATRIAL FIBRILLATION (2) Acute on chronic heart failure Code(s): I50.9 - HEART FAILURE, UNSPECIFIED Qualifiers: (3) Hyperthyroidism Code(s): E05.90 - THYROTOXICOSIS, UNSP WITHOUT THYROTOXIC CRISIS OR STORM (4) Acute CHF Code(s): I50.9 - HEART FAILURE, UNSPECIFIED Qualifiers: Heart failure type: systolic Qualified Code(s): I50.21 - Acute systolic ( congestive) heart failure (5) Acute exacerbation of asthma with allergic rhinitis Code(s): J45.901 - UNSPECIFIED ASTHMA WITH (ACUTE) EXACERBATION (6) Acute on chronic kidney failure Code(s): N17.9 - ACUTE KIDNEY FAILURE, UNSPECIFIED; N18.9 - CHRONIC KIDNEY DISEASE, UNSPECIFIED (7) Acute pulmonary edema with congestive heart failure Code(s): I50.1 - LEFT VENTRICULAR FAILURE, UNSPECIFIED Assessment/Plan Current Active Problems A-fib (Acute) Acute on chronic heart failure (Acute) Hyperthyroidism (Acute) diabetes mellitus hyperglycemia Abnormal Lab Results 10/16/18 10/17/18 10/17/18 23:11 05:50 05:50 WBC 3.8 L Hgb 10.1 L MCV 76.5 L MCH 23.3 L MCHC 30.5 L RDW 16.5 H Monocytes % 14.8 H PTT (Actin FS) BUN 88 H Creatinine 3.4 H Random Glucose 183 H Hemoglobin A1c % Alkaline Phosphatase 123 H Troponin I 0.24 H Albumin 2.7 L Free T4 2.38 H 10/17/18 10/17/18 05:50 06:58 WBC Hgb MCV MCH MCHC RDW Monocytes % PTT (Actin FS) 63.0 H BUN Creatinine Random Glucose Hemoglobin A1c % 8.7 H Alkaline Phosphatase Troponin I Albumin Free T4 Laboratory Results - last 24 hr 10/16/18 10/16/18 10/17/18 23:09 23:11 05:49 WBC RBC Hgb Hct MCV MCH MCHC RDW Plt Count MPV Absolute Neuts (auto) Neutrophils % Lymphocytes % Monocytes % Eosinophils % Basophils % Nucleated RBC % PTT (Actin FS) Sodium Potassium Chloride Carbon Dioxide Anion Gap BUN Creatinine Creat Clearance w eGFR POC Glucometer [phone] Random Glucose Hemoglobin A1c % Calcium Phosphorus Magnesium Total Bilirubin AST ALT Alkaline Phosphatase Troponin I 0.24 H Total Protein Albumin Free T4 10/17/18 10/17/18 10/17/18 05:50 05:50 05:50 WBC 3.8 L RBC 4.34 Hgb 10.1 L Hct 33.2 MCV 76.5 L MCH 23.3 L MCHC 30.5 L RDW 16.5 H Plt Count 153 MPV 8.7 Absolute Neuts (auto) 1.9 Neutrophils % 49.1 Lymphocytes % 33.8 Monocytes % 14.8 H Eosinophils % 1.5 D Basophils % 0.8 Nucleated RBC % 0 PTT (Actin FS) Sodium 138 Potassium 4.2 Chloride 103 Carbon Dioxide 25 Anion Gap 10 BUN 88 H Creatinine 3.4 H Creat Clearance w eGFR 13.64 POC Glucometer Random Glucose 183 H Hemoglobin A1c % 8.7 H Calcium 8.7 Phosphorus 3.6 Magnesium 2.2 Total Bilirubin 0.8 AST 23 ALT 15 Alkaline Phosphatase 123 H Troponin I Total Protein 6.5 Albumin 2.7 L Free T4 2.38 H 10/17/18 10/17/18 10/17/18 06:58 11:10 17:00 WBC RBC Hgb Hct MCV MCH MCHC RDW Plt Count MPV Absolute Neuts (auto) Neutrophils % Lymphocytes % Monocytes % Eosinophils % Basophils % Nucleated RBC % PTT (Actin FS) 63.0 H Sodium Potassium Chloride Carbon Dioxide Anion Gap BUN Creatinine Creat Clearance w eGFR POC Glucometer 144 195 Random Glucose Hemoglobin A1c % Calcium Phosphorus Magnesium Total Bilirubin AST ALT Alkaline Phosphatase Troponin I Total Protein Albumin Free T4 Laboratory Tests 10/16/18 10/17/18 10/17/18 16:54 05:50 05:50 Sodium 138 Potassium 4.2 Chloride 103 Carbon Dioxide 25 Anion Gap 10 BUN 88 H Creatinine 3.4 H Creat Clearance w eGFR 13.64 POC Glucometer Hemoglobin A1c % 8.7 H TSH < 0.01 L Free T4 2.38 H 10/17/18 10/17/18 11:10 17:00 Sodium Potassium Chloride Carbon Dioxide Anion Gap BUN Creatinine Creat Clearance w eGFR POC Glucometer 144 195 Hemoglobin A1c % TSH Free T4 plan: ptu 50 mg bid then 100mg bid continue coreg/beta blockers will need snf for closer monitoring?
[2018-10-18 06:35] LABS: HEMATOCRIT 33.7 % (32.4-45.2); HEMOGLOBIN 10.3 GM/dL (10.7-15.3); MCH 23.6 pg (25.7-33.7); MCHC 30.5 g/dl (32.0-36.0); MEAN CELL VOLUME 77.4 fl (80-96); MEAN PLT VOLUME 8.6 fl (7.5-11.1); PLATELET COUNT 158 K/MM3 (134-434); RBC 4.35 M/mm3 (3.60-5.2); RDW 16.5 % (11.6-15.6); WHITE BLOOD COUNT 3.6 K/mm3 (4.0-10.0)
[2018-10-18] MEDS ORDERED: INSULIN (LEVEMIR) 100 UNITS/ML UNITS SQ SCH (07:00)
[2018-10-18 07:14] LABS: ALBUMIN 2.8 g/dl (3.4-5.0); ALK PHOS 128 U/L (45-117); ANION GAP 13 MMOL/L (8-16); BILIRUBIN,TOTAL 0.8 mg/dL (0.2-1); BLOOD UREA NITROGEN 87 mg/dL (7-18); CALCIUM 8.3 mg/dL (8.5-10.1); CHLORIDE 103 mmol/L (98-107); CO2 23 mmol/L (21-32); CREATININE 3.4 mg/dL (0.55-1.3); GLUCOSE,RANDOM 163 mg/dL (74-106); MAGNESIUM 1.9 mg/dL (1.8-2.4); POTASSIUM 4.1 mmol/L (3.5-5.1); SGOT/AST 21 U/L (15-37); SGPT/ALT 16 U/L (13-61); SODIUM 138 mmol/L (136-145); TOT PROT 6.6 g/dl (6.4-8.2)
[2018-10-18] MEDS: INSULIN SLIDING SCALE (NOVOLOG) 1 VIAL SQ SCH ×4 (08:40→21:28)
[2018-10-18] MEDS: CHOLECALCIFEROL (VITAMIN D3) 1,000 UNIT TABLET (FP) PO SCH (10:54)
[2018-10-18] MEDS: CARVEDILOL PHOSPHATE CR 40 MG CAPSULE (FP) PO SCH ×2 (10:55→21:27)
[2018-10-18] MEDS: PROPYLTHIOURACIL 50 MG TABLET (UD) PO SCH ×2 (10:55→21:27)
[2018-10-18] MEDS: EZETIMIBE 10 MG TABLET (FP) PO SCH (10:55)
--- NOTE | 2018-10-18 10:57 | PN ---
Progress Note (short form) - Note Progress Note: Chief Complaint: rising creatinine History of Present Illness: no chest pain, palps, dizzy, lightheadedness. stable orthopnea. Current Medications Carvedilol (Coreg Cr -) 40 mg PO BID [facility] Last Admin: 10/17/18 21:41 Dose: 40 mg Cholecalciferol (Vitamin D3 -) 5,000 unit PO DAILY [facility] Last Admin: 10/17/18 11:06 Dose: 5,000 unit Ezetimibe (Zetia -) 10 mg PO DAILY [facility] Last Admin: 10/17/18 11:07 Dose: 10 mg Insulin Aspart (Novolog Vial Sliding Scale -) 1 vial SQ ACHS [facility]; Protocol Last Admin: 10/18/18 08:40 Dose: Not Given Insulin Detemir (Levemir Vial) 20 units SQ AM [facility] Last Admin: 10/18/18 08:40 Dose: Not Given Non-Formulary Medication (Fluticasone/Vilanterol [Breo Ellipta 100-25 Mcg Inh]) 1 each IH DAILY [facility] Propylthiouracil (Ptu -) 50 mg PO BID [facility] Last Admin: 10/17/18 21:41 Dose: 50 mg Rosuvastatin Calcium (Crestor -) 10 mg PO HS [facility] Last Admin: 10/17/18 21:41 Dose: 10 mg Vital Signs: Vital Signs Period Temp Pulse Resp BP Sys/Shankar Pulse Ox Last 24 Hr 97.8 F-98.6 F 122-130 18-20 103-136/58-85 100 Constitutional: Yes: Well Nourished, No Distress Eyes: No: Sclera Icterus HENT: No: Nasal Congestion Neck: No: Decreased ROM Respiratory: Yes: CTA Bilaterally. No: Accessory Muscle Use, Rales, Wheezes Gastrointestinal: Yes: Normal Bowel Sounds. No: Distention, Hepatomegaly, Palpable Mass, Tenderness Cardiovascular: Yes: Regular Rate and Rhythm JVD: Yes Carotid Bruit: No PMI: Non-Displaced Heart Sounds: Yes: S1, S2. No: Gallop Murmur: No: Systolic Murmur, Diastolic Murmur Musculoskeletal: Yes: Other (No kyphosis) Extremities: No: Cool, Cyanosis Edema: Yes (1+ pretib) Peripheral Pulses: 2+ Left Carotid, 2+ Right Carotid, 2+ Left Doralis Pedis, 2+ Right Dorsalis Pedis Integumentary: No: Jaundice Neurological: Yes: Alert, Oriented (x3) Psychiatric: No: Agitated Assessment/Plan ECG: organized atrial activity: likely PAT with APCs, no definite flutter present. no fib. LVH with repol abn unchanged vs prior CXR: clear lungs Echo 07/2018 inf wall akinetic, other phillip severely hypokinetic, LV mildly dilated, RV function moderately reduced, LV function severely reduced, moderate MR, EF 30% Echo 12/2016: TDS. nl LV size/EF. mild LVH. grade 2 d.d., hi E/e' = high LAP. nl RV. mild LAE. mild-mod MR, mod TR. mild pHTN (46 mmHg) [facility] 2014: unchanged 70-80% distal RCA lesion. patent mLAD stent. 80-90% pLCX-- [facility] tele: tachycardia alternating with NSR in 60s. organized atrial activity in tachycardia, no definite flutter present (no fib)--likely AT with APCs. a/p: 63 yo female hx cad/pci, hyperthyroidism with associated tachycardia, palpitations, unintentional wt loss, acute on chronic labile HTN with mult med intolerances, mildly decompensated diast chf, and new LE edema (out of proportion to the degree of CHF), p/w le edema,sob. 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 - JVD on exam, with wt up from 3 wks ago baseline and orthopnea if lies flat. however she is not sob at present, so will defer torsemide to avoid further worsening of obstructive uropathy - bb dose limited by new hypotension/dizziness--has changed metoprolol succ to coreg CR and insists this causes her less dizziness - holding hydral, NTG patch (hypotension) - not on SHAN/ARB in setting of ckd - continue coreg 40 mg BID, patient is tolerating obstructive uropathy, OBI on CKD: - probably new baseline creatinine in 3-3.3 range based on recent labs trends - currently worse sec to obstruction--for nephrostomy tube placement 10/19 by IR - hope to avoid HD LE swelling: - started at time of hyperthyroidism, and remains out of proportion to HF findings - responded well to wraps - defer torsemide as above hyperthyroidism, sinus tach, PAT: - TSH remains undetectable - intolerant of methimazole (elevated LFTs). intolerant of PTU (nausea). - s/p radio-I ablation - high burden of ATach with LV systolic dysfunction, now with new afib - d/w'd dr moreno: only available intervention at this time is to resume low dose PTU (pt self-discontinued it at home) - metopr high dose appeared to control PAT burden better than carvedilol, however caused hypotension/dizzy and pt changed back. she declines changing back to metoprolol. (previously intolerant of atenolol, propranolol). - no amiodarone in light of uncontrolled hyperthyroidism. no digoxin in light of very low GFR. no CCB in light of systolic dysfxn and previous intolerance ( edema) - given no fib present, and no definitive atr flutter thus far, will defer AC for now. - continue coreg 40 mg BID, PTU Elevated troponin - borderline trop similar to prior baseline values, flat trend--not c/w acs. - sec to HF/CKD labile HTN: -mult med intolerances in past -bp trending low of late sec to low EF CAD, prior NSTEMI/PCI: -holding DAPT (aspirin/effient) for perc nephrostomy tube placement 10/19 -cont home statin (max tolerated dose rosuva 20 with drug holidays), zetia -bb as bp tolerates OBI on CKD: -baseline cr near 3.0, stable here at 3.4 anemia: -chronic. baseline hgb 9-10 -stable counts here preop CV eval -RCRI = 4, decr'd functional capacity. -for low risk procedure (perc nephrostomy tubes). -her PSVT is as rate-controlled as possible, a chronic/stable ongoing problem she has tolerated well for many months and there are no further tx options available (as disc'd abov) -her CHF is as optimized as possible, with mild volume overload in a compensated fashion that is stable. -she has had no angina or ischemia since last PCI. -cleared to proceed at acceptable CV risk of complications.
--- NOTE | 2018-10-18 11:02 | PN ---
Physical Exam: SUBJECTIVE: Patient seen and examined at bedside- no acute events overnight; patient is still very uncomfortable with her abdominal swelling and had trouble sleeping. she can feel her palpitations and felt like her heart is pounding out of her chest however, is not experiencing any pain. she denies any CP/SOB/N/v fevers or chills OBJECTIVE: Vital Signs Period Temp Pulse Resp BP Sys/Shankar Pulse Ox Last 24 Hr 97.8 F-98.6 F 122-130 18-20 103-136/58-85 100 GENERAL: The patient is awake, alert, in slight acute distress. EYES:no scleral icterus NECK: no JVD,+ thryomegaly LUNGS: Breath sounds equal, clear to auscultation bilaterally, no wheezes, no crackles, no accessory muscle use. HEART: tachycardic, S1, S2 without murmur, rub or gallop. ABDOMEN:, distended, normoactive bowel sounds, no guarding, no rebound, no hepatosplenomegaly, no masses. EXTREMITIES: 2+ pulses, warm, well-perfused, 3+ edema B/L. NEUROLOGICAL: Cranial nerves II through XII grossly intact. Normal speech, gait not observed. PSYCH: Normal mood, normal affect. SKIN: Warm, dry, normal turgor, no rashes or lesions noted Laboratory Results - last 24 hr 10/17/18 10/17/18 10/17/18 05:50 05:50 11:10 WBC RBC Hgb Hct MCV MCH MCHC RDW Plt Count MPV PTT (Actin FS) Sodium Potassium Chloride Carbon Dioxide Anion Gap BUN Creatinine Creat Clearance w eGFR POC Glucometer 144 Random Glucose Calcium Phosphorus Magnesium Total Bilirubin AST ALT Alkaline Phosphatase Total Protein Albumin TSH Free T4 Free T3 5.9 H Total T3 178.00 10/17/18 10/17/18 10/18/18 17:00 21:38 06:00 WBC 3.6 L RBC 4.35 Hgb 10.3 L Hct 33.7 MCV 77.4 L MCH 23.6 L MCHC 30.5 L RDW 16.5 H Plt Count 158 MPV 8.6 PTT (Actin FS) Sodium Potassium Chloride Carbon Dioxide Anion Gap BUN Creatinine Creat Clearance w eGFR POC Glucometer 195 127 Random Glucose Calcium Phosphorus Magnesium Total Bilirubin AST ALT Alkaline Phosphatase Total Protein Albumin TSH Free T4 Free T3 Total T3 10/18/18 10/18/18 10/18/18 06:00 06:00 06:48 WBC RBC Hgb Hct MCV MCH MCHC RDW Plt Count MPV PTT (Actin FS) 28.5 Sodium 138 Potassium 4.1 Chloride 103 Carbon Dioxide 23 Anion Gap 13 BUN 87 H Creatinine 3.4 H Creat Clearance w eGFR 13.64 POC Glucometer 167 Random Glucose 163 H Calcium 8.3 L Phosphorus 3.0 Magnesium 1.9 Total Bilirubin 0.8 AST 21 ALT 16 Alkaline Phosphatase 128 H Total Protein 6.6 Albumin 2.8 L TSH < 0.01 L Free T4 2.31 H Free T3 Total T3 Active Medications Generic Name Dose Route Start Last Admin Trade Name Freq PRN Reason Stop Dose Admin Carvedilol 40 mg 10/17/18 22:00 10/18/18 10:55 Coreg Cr - PO 40 mg BID [facility] Administration Cholecalciferol 5,000 unit 10/17/18 10:00 10/18/18 10:54 Vitamin D3 - PO 5,000 unit DAILY [facility] Administration Ezetimibe 10 mg 10/17/18 10:00 10/18/18 10:55 Zetia - PO 10 mg DAILY [facility] Administration Insulin Aspart 1 vial 10/17/18 07:00 10/18/18 08:40 Novolog Vial Sliding Scale - SQ Not Given ACHS [facility] Protocol Insulin Detemir 20 units 10/18/18 07:00 10/18/18 08:40 Levemir Vial SQ Not Given AM [facility] Non-Formulary Medication 1 each 10/17/18 10:00 Fluticasone/Vilanterol [Breo Ellipta 100-25 Mcg Inh] IH DAILY [facility] Propylthiouracil 50 mg 10/17/18 10:00 10/18/18 10:55 Ptu - PO 50 mg BID [facility] Administration Rosuvastatin Calcium 10 mg 10/17/18 22:00 10/17/18 21:41 Crestor - PO 10 mg HS [facility] Administration ASSESSMENT/PLAN: Patient is a 63 year old female with history of CHF, [place] s/p stents, CAD, DMII, hyperthyroidism, CKD stage V, HTN, HLD, presents with complaint of chest tightness, palpitations. Afib: -patient started on heparin drip here -as per Dr. Chen, will defer from starting a NOAC given patient going for procedure -Coreg 40mg BID -continue tele monitoring Hyperthyroidism: -TSH <0.01 -spoke with Dr. Gonsales- switch to PTU 100 BID starting tomorrow' -c/w beta isrrael therapy Caliectasis: -patient for nephrostomy tube placement on friday 10/19 -holding home AC; currently on Heparin drip CKD stage V: -baseline Cr 3.2 -going for nephrostomy tubes tomorrow CHF -spoke to Dr. Taylor regarding restarting the patients torsemide; will defer until after the patients procedure tomorrow -monitor daily weights -I's and O's DM -BGM ACHS -ISS ACHS CAD -holding aspirin and prasugrel in light of procedure on 10/19 HTN -c/w coreg 40 BID F/E/N -no fluids -replete electrolytes accordingly -diabetic diet PPX: heparin drip for Afib Problem List - Problems (1) A-fib Code(s): I48.91 - UNSPECIFIED ATRIAL FIBRILLATION (2) Hyperthyroidism Code(s): E05.90 - THYROTOXICOSIS, UNSP WITHOUT THYROTOXIC CRISIS OR STORM (3) Acute pulmonary edema with congestive heart failure Code(s): I50.1 - LEFT VENTRICULAR FAILURE, UNSPECIFIED Visit type - Emergency Visit Emergency Visit: Yes ED Registration Date: 10/16/18 Care time: The patient presented to the Emergency Department on the above date and was hospitalized for further evaluation of their emergent condition. - New Patient This patient is new to me today: No - Critical Care Critical Care patient: No
[2018-10-18] MEDS ORDERED: PT OWN MED DRAWER 7, Y5N ONE ×2 (13:10→21:20)
--- NOTE | 2018-10-18 14:19 | PN ---
Teaching Attending Note Name of Resident: Charmaine Banda ATTENDING PHYSICIAN STATEMENT I saw and evaluated the patient. I reviewed the resident's note and discussed the case with the resident. I agree with the resident's findings and plan as documented with exceptions below. SUBJECTIVE: Patient seen and examined. Breathing stable, unchanged leg swelling. NO new chest pain, dizziness or palpitations. Reports some lower abdominal pain and occasional dysuria. no fevers/chills or back pain OBJECTIVE: Vital Signs Period Temp Pulse Resp BP Sys/Shankar Pulse Ox Last 24 Hr 97.3 F-98.1 F 124-130 18-20 103-136/58-85 100-100 Intake & Output 10/15/18 10/16/18 10/17/18 10/18/18 23:59 23:59 23:59 23:59 Intake Total 820 Balance 820 Weight 225 lb 6.4 oz 225 lb 227 lb 6 oz General: sitting in bed in no acute distress neck: no JVD visualized Chest: CTAB, no rales or wheezing Abdomen;Soft, obese, mild suprapubic/LLQ tenderness, no voluntary or involuntary guarding or rigidity positive bowel sounds, no CVA tenderness Extremities: bilateral 2+ pitting pedal edema Home Medications Medication Instructions Recorded Aspirin [ASA -] 81 mg PO DAILY 09/07/18 Cholecalciferol (Vitamin D3) 5,000 unit PO DAILY 09/07/18 [Vitamin D -] Clonazepam 0.5 mg PO QID 09/07/18 Ezetimibe [Zetia] 10 mg PO DAILY 09/07/18 Ferrous Gluconate [Iron] 256 mg PO DAILY 09/07/18 Fluticasone/Vilanterol [Breo 1 each IH DAILY 09/07/18 Ellipta 100-25 Mcg INH] Insulin Aspart [Novolog] 10 unit SQ ASDIR 09/07/18 Insulin Glargine,Hum.rec.anlog 0 unit SQ ASDIR 09/07/18 [Lantus] Prasugrel HCl [Effient] 10 mg PO DAILY 09/07/18 Rosuvastatin Calcium [Crestor] 10 mg PO DAILY 09/07/18 Insulin Sliding Scale [Novolog 1 vial SQ ACHS units 09/15/18 Vial Sliding Scale -] Carvedilol Phosphate [Coreg Cr -] 40 mg PO DAILY 10/17/18 Meclizine HCl 25 mg PO Q6H PRN 10/17/18 Metolazone 2.5 mg PO DAILY 10/17/18 Nitroglycerin Patch [Nitro-Dur] 0.2 mg TD DAILY 10/17/18 Torsemide 20 mg PO TID 10/17/18 Active Medications Carvedilol (Coreg Cr -) 40 mg PO BID [facility] Last Admin: 10/18/18 10:55 Dose: 40 mg Cholecalciferol (Vitamin D3 -) 5,000 unit PO DAILY [facility] Last Admin: 10/18/18 10:54 Dose: 5,000 unit Ezetimibe (Zetia -) 10 mg PO DAILY [facility] Last Admin: 10/18/18 10:55 Dose: 10 mg Insulin Aspart (Novolog Vial Sliding Scale -) 1 vial SQ ACHS [facility]; Protocol Last Admin: 10/18/18 11:06 Dose: 2 units Insulin Detemir (Levemir Vial) 20 units SQ AM [facility] Last Admin: 10/18/18 08:40 Dose: Not Given Non-Formulary Medication (Fluticasone/Vilanterol [Breo Ellipta 100-25 Mcg Inh]) 1 each IH DAILY [facility] Propylthiouracil (Ptu -) 50 mg PO BID [facility] Last Admin: 10/18/18 10:55 Dose: 50 mg Rosuvastatin Calcium (Crestor -) 10 mg PO HS [facility] Last Admin: 10/17/18 21:41 Dose: 10 mg Laboratory Results - last 24 hr 10/17/18 10/17/18 10/17/18 05:50 05:50 17:00 WBC RBC Hgb Hct MCV MCH MCHC RDW Plt Count MPV PTT (Actin FS) Sodium Potassium Chloride Carbon Dioxide Anion Gap BUN Creatinine Creat Clearance w eGFR POC Glucometer 195 Random Glucose Calcium Phosphorus Magnesium Total Bilirubin AST ALT Alkaline Phosphatase Total Protein Albumin TSH Free T4 Free T3 5.9 H Total T3 178.00 10/17/18 10/18/18 10/18/18 21:38 06:00 06:00 WBC 3.6 L RBC 4.35 Hgb 10.3 L Hct 33.7 MCV 77.4 L MCH 23.6 L MCHC 30.5 L RDW 16.5 H Plt Count 158 MPV 8.6 PTT (Actin FS) 28.5 Sodium Potassium Chloride Carbon Dioxide Anion Gap BUN Creatinine Creat Clearance w eGFR POC Glucometer 127 Random Glucose Calcium Phosphorus Magnesium Total Bilirubin AST ALT Alkaline Phosphatase Total Protein Albumin TSH Free T4 Free T3 Total T3 10/18/18 10/18/18 10/18/18 06:00 06:48 11:03 WBC RBC Hgb Hct MCV MCH MCHC RDW Plt Count MPV PTT (Actin FS) Sodium 138 Potassium 4.1 Chloride 103 Carbon Dioxide 23 Anion Gap 13 BUN 87 H Creatinine 3.4 H Creat Clearance w eGFR 13.64 POC Glucometer 167 172 Random Glucose 163 H Calcium 8.3 L Phosphorus 3.0 Magnesium 1.9 Total Bilirubin 0.8 AST 21 ALT 16 Alkaline Phosphatase 128 H Total Protein 6.6 Albumin 2.8 L TSH < 0.01 L Free T4 2.31 H Free T3 Total T3 Microbiology 10/16/18 16:57 Urine - Urine Clean Catch Urine Culture - Final NO GROWTH OBTAINED ASSESSMENT AND PLAN: 63 yo F PMx DM, HTN, HLD, [place] in 2012 s/p stents, CABG, Afib, asthma, hyperthyroidism s/p I-131, CKD, anemia with multi med intolerances, with Chest Pain and palpitations -New severe LV systolic dysfunction,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 Cardiology/endocrine input appreciated. Coreg/low dose PTU. ASA/Prasugrel/torsemide on hold pending left nephrostomy tube. Resume torsemide in 24 hours if renal function stable as patient with weight gain today and ongoing pedal edema. Trop trended to peak. AC per cardiology. off heparin drip. DVTPPX start subq heparin after PCN tube placement as tolerated. Check u/a, bladder scan given vague suprapubic/groin symptoms and dysuria today. d/c planning in 24-48 hours pending PCN tube placement if renal function stable and no new concerns noted. Plan discussed with patient in detail,all questions answered.
[2018-10-18 15:44] LABS: URINE APPEARANCE CLEAR; URINE BILIRUBIN NEGATIVE (<2.0 mg/dL); URINE COLOR YELLOW; URINE GLUCOSE (UA) NEGATIVE (NEGATIVE); URINE KETONE NEGATIVE (NEGATIVE); URINE LEUK ESTERASE NEGATIVE (NEGATIVE); URINE NITRITE NEGATIVE (NEGATIVE); URINE PROTEIN NEGATIVE (NEGATIVE); URINE UROBILINOGEN NEGATIVE mg/dL (0.2-1.0)
[2018-10-18] MEDS ORDERED: predniSONE 20 MG TABLET (UD) PO ONE (20:00)
[2018-10-18] MEDS: ROSUVASTATIN CA 10 MG TABLET (FP) PO SCH (21:27)
[2018-10-18] MEDS: INSULIN (LEVEMIR) 100 UNITS/ML UNITS SQ SCH (21:27)
[2018-10-19] MEDS ORDERED: predniSONE 20 MG TABLET (UD) PO ONE ×2 (02:00→09:00)
[2018-10-19] MEDS: INSULIN SLIDING SCALE (NOVOLOG) 1 VIAL SQ SCH ×4 (06:12→22:21)
[2018-10-19 06:52] LABS: HEMATOCRIT 33.9 % (32.4-45.2); HEMOGLOBIN 10.3 GM/dL (10.7-15.3); MCH 23.4 pg (25.7-33.7); MCHC 30.4 g/dl (32.0-36.0); MEAN PLT VOLUME 9.1 fl (7.5-11.1); PLATELET COUNT 158 K/MM3 (134-434); RDW 16.2 % (11.6-15.6); WHITE BLOOD COUNT 2.9 K/mm3 (4.0-10.0)
[2018-10-19 07:57] LABS: ALK PHOS 139 U/L (45-117); ANION GAP 13 MMOL/L (8-16); BILIRUBIN,TOTAL 0.9 mg/dL (0.2-1); BLOOD UREA NITROGEN 88 mg/dL (7-18); CALCIUM 8.6 mg/dL (8.5-10.1); CHLORIDE 100 mmol/L (98-107); CO2 21 mmol/L (21-32); CREATININE 3.4 mg/dL (0.55-1.3); GLUCOSE,RANDOM 228 mg/dL (74-106); MAGNESIUM 2.2 mg/dL (1.8-2.4); PHOSPHOROUS 3.8 mg/dL (2.5-4.9); POTASSIUM 4.5 mmol/L (3.5-5.1); SGOT/AST 24 U/L (15-37); SGPT/ALT 18 U/L (13-61); SODIUM 135 mmol/L (136-145); TOT PROT 6.9 g/dl (6.4-8.2)
[2018-10-19] MEDS ORDERED: PT OWN MED DRAWER 7, Y5N ONE (08:53)
[2018-10-19] MEDS ORDERED: diphenhydrAMINE HCL 25 MG CAPSULE (FP) PO ONE (09:00)
[2018-10-19] MEDS: PROPYLTHIOURACIL 50 MG TABLET (UD) PO SCH ×3 (09:05→22:22)
[2018-10-19] MEDS: EZETIMIBE 10 MG TABLET (FP) PO SCH (13:46)
[2018-10-19] MEDS: CARVEDILOL PHOSPHATE CR 40 MG CAPSULE (FP) PO SCH ×2 (13:47→22:22)
[2018-10-19] MEDS: CHOLECALCIFEROL (VITAMIN D3) 1,000 UNIT TABLET (FP) PO SCH (13:52)
--- NOTE | 2018-10-19 13:58 | PN ---
Progress Note (short form) - Note Progress Note: History of Present Illness: no chest pain, palps, dizzy, lightheadedness. stable orthopnea. Current Medications Generic Name Dose Route Start Last Admin Trade Name Shan PRN Reason Stop Dose Admin Carvedilol 40 mg 10/17/18 22:00 10/19/18 13:47 Coreg Cr - PO 40 mg BID [facility] Administration Cholecalciferol 5,000 unit 10/17/18 10:00 10/19/18 13:52 Vitamin D3 - PO 5,000 unit DAILY [facility] Administration Ezetimibe 10 mg 10/17/18 10:00 10/19/18 13:46 Zetia - PO 10 mg DAILY [facility] Administration Insulin Aspart 1 vial 10/17/18 07:00 10/19/18 06:12 Novolog Vial Sliding Scale - SQ Not Given ACHS [facility] Protocol Insulin Detemir 20 units 10/18/18 22:00 10/18/18 21:27 Levemir Vial SQ Not Given HS [facility] Non-Formulary Medication 1 each 10/18/18 10:00 10/19/18 13:45 Fluticasone/Vilanterol [Breo Ellipta 100-25 Mcg Inh] IH 1 each DAILY [facility] Administration Propylthiouracil 100 mg 10/19/18 10:00 10/19/18 13:46 Ptu - PO 100 mg BID [facility] Administration Rosuvastatin Calcium 10 mg 10/17/18 22:00 10/18/18 21:27 Crestor - PO 10 mg HS [facility] Administration Vital Signs: Vital Signs Period Temp Pulse Resp BP Sys/Shankar Pulse Ox Last 24 Hr 97.8 F-98.1 F 72-128 16-20 104-148/62-103 99-100 Constitutional: Yes: Well Nourished, No Distress Eyes: No: Sclera Icterus HENT: No: Nasal Congestion Respiratory: Yes: CTA Bilaterally. No: Accessory Muscle Use, Rales, Wheezes Gastrointestinal: Yes: Normal Bowel Sounds. No: Distention, Hepatomegaly, Palpable Mass, Tenderness Cardiovascular: Yes: Regular Rate and Rhythm JVD: Yes Heart Sounds: Yes: S1, S2. No: Gallop Murmur: No: Systolic Murmur, Diastolic Murmur Extremities: No: Cool, Cyanosis Edema: Yes (1+ pretib) Peripheral Pulses: 2+ Left Carotid, 2+ Right Carotid, 2+ Left Doralis Pedis, 2+ Right Dorsalis Pedis Integumentary: No: Jaundice Neurological: Yes: Alert, Oriented (x3) Psychiatric: No: Agitated CBC, BMP 10/19/18 06:00 10/19/18 06:00 Assessment/Plan ECG: organized atrial activity: likely PAT with APCs, no definite flutter present. no fib. LVH with repol abn unchanged vs prior CXR: clear lungs Echo 07/2018 inf wall akinetic, other phillip severely hypokinetic, LV mildly dilated, RV function moderately reduced, LV function severely reduced, moderate MR, EF 30% Echo 12/2016: TDS. nl LV size/EF. mild LVH. grade 2 d.d., hi E/e' = high LAP. nl RV. mild LAE. mild-mod MR, mod TR. mild pHTN (46 mmHg) [facility] 2014: unchanged 70-80% distal RCA lesion. patent mLAD stent. 80-90% pLCX-- [employer] [facility] tele: PAT alternating with NSR. a/p: 63 yo female hx cad/pci, hyperthyroidism with associated tachycardia, palpitations, unintentional wt loss, acute on chronic labile HTN with mult med intolerances, mildly decompensated diast chf, and new LE edema (out of proportion to the degree of CHF), p/w le edema,sob. 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 - JVD on exam, with wt up from 3 wks ago baseline and orthopnea if lies flat. however she is not sob at present, so will defer torsemide to avoid further worsening of obstructive uropathy - bb dose limited by new hypotension/dizziness--has changed metoprolol succ to coreg CR and insists this causes her less dizziness - holding hydral, NTG patch (hypotension) - not on SHAN/ARB in setting of ckd - continue coreg 40 mg BID, patient is tolerating obstructive uropathy, OBI on CKD: - probably new baseline creatinine in 3-3.3 range based on recent labs trends - currently worse sec to obstruction--s/p nephrostomy tube placement 10/19 by IR - hope to avoid HD LE swelling: - started at time of hyperthyroidism, and remains out of proportion to HF findings - responded well to wraps - defer torsemide as above hyperthyroidism, sinus tach, PAT: - TSH remains undetectable - intolerant of methimazole (elevated LFTs). intolerant of PTU (nausea). - s/p radio-I ablation - high burden of ATach with LV systolic dysfunction, now with new afib - d/w'd dr moreno: only available intervention at this time is to resume low dose PTU (pt self-discontinued it at home) - metopr high dose appeared to control PAT burden better than carvedilol, however caused hypotension/dizzy and pt changed back. she declines changing back to metoprolol. (previously intolerant of atenolol, propranolol). - no amiodarone in light of uncontrolled hyperthyroidism. no digoxin in light of very low GFR. no CCB in light of systolic dysfxn and previous intolerance ( edema) - given no fib present, and no definitive atr flutter thus far, will defer AC for now. - continue coreg 40 mg BID, PTU Elevated troponin - borderline trop similar to prior baseline values, flat trend--not c/w acs. - sec to HF/CKD labile HTN: -mult med intolerances in past -bp trending low of late sec to low EF CAD, prior NSTEMI/PCI: -holding DAPT (aspirin/effient) for perc nephrostomy tube placement 10/19 -cont home statin (max tolerated dose rosuva 20 with drug holidays), zetia -bb as bp tolerates OBI on CKD: -baseline cr near 3.0, stable here at 3.4 anemia: -chronic. baseline hgb 9-10 -stable counts here
--- NOTE | 2018-10-19 14:52 | PN ---
Physical Exam: SUBJECTIVE: Patient seen and examined at bedside. patient had one episode of dizziness overnight but states that she is feeling better; her abdominal pain subsided and her breathing is improving. her lowest HR overnight was 76. OBJECTIVE: Vital Signs Period Temp Pulse Resp BP Sys/Shankar Pulse Ox Last 24 Hr 97.8 F-98.1 F 72-128 16-20 107-148/62-103 99-100 GENERAL: The patient is awake, alert, and fully oriented, in no acute distress. EYES: no scleral icterus; NECK: no JVD, thyromgealy palpable on the right side LUNGS: Breath sounds equal, clear to auscultation bilaterally, no wheezes, no crackles, no accessory muscle use. HEART: Regular and tachycardic S1, S2 without murmur, rub or gallop. ABDOMEN: distended; soft; non-tender +BS in all 4 quadrants EXTREMITIES: 2+ pulses, warm, well-perfused, 2+ edema B/L. SKIN: Warm, dry, normal turgor, no rashes or lesions noted Laboratory Results - last 24 hr 10/18/18 10/18/18 10/18/18 15:00 16:39 21:24 WBC RBC Hgb Hct MCV MCH MCHC RDW Plt Count MPV PTT (Actin FS) Sodium Potassium Chloride Carbon Dioxide Anion Gap BUN Creatinine Creat Clearance w eGFR POC Glucometer 170 207 Random Glucose Calcium Phosphorus Magnesium Total Bilirubin AST ALT Alkaline Phosphatase Total Protein Albumin Urine Color Yellow Urine Appearance Clear Urine pH 5.0 Ur Specific [place] 1.014 Urine Protein Negative Urine Glucose (UA) Negative Urine Ketones Negative Urine Blood Negative Urine Nitrite Negative Urine Bilirubin Negative Urine Urobilinogen Negative Ur Leukocyte Esterase Negative 10/19/18 10/19/18 10/19/18 05:26 06:00 06:00 WBC 2.9 L RBC 4.40 Hgb 10.3 L Hct 33.9 MCV 77.0 L MCH 23.4 L MCHC 30.4 L RDW 16.2 H Plt Count 158 MPV 9.1 PTT (Actin FS) 30.0 Sodium Potassium Chloride Carbon Dioxide Anion Gap BUN Creatinine Creat Clearance w eGFR POC Glucometer 224 Random Glucose Calcium Phosphorus Magnesium Total Bilirubin AST ALT Alkaline Phosphatase Total Protein Albumin Urine Color Urine Appearance Urine pH Ur Specific [place] Urine Protein Urine Glucose (UA) Urine Ketones Urine Blood Urine Nitrite Urine Bilirubin Urine Urobilinogen Ur Leukocyte Esterase 10/19/18 06:00 WBC RBC Hgb Hct MCV MCH MCHC RDW Plt Count MPV PTT (Actin FS) Sodium 135 L Potassium 4.5 Chloride 100 Carbon Dioxide 21 Anion Gap 13 BUN 88 H Creatinine 3.4 H Creat Clearance w eGFR 13.64 POC Glucometer Random Glucose 228 H Calcium 8.6 Phosphorus 3.8 Magnesium 2.2 Total Bilirubin 0.9 AST 24 ALT 18 Alkaline Phosphatase 139 H Total Protein 6.9 Albumin 3.0 L Urine Color Urine Appearance Urine pH Ur Specific [place] Urine Protein Urine Glucose (UA) Urine Ketones Urine Blood Urine Nitrite Urine Bilirubin Urine Urobilinogen Ur Leukocyte Esterase Active Medications Generic Name Dose Route Start Last Admin Trade Name Freq PRN Reason Stop Dose Admin Carvedilol 40 mg 10/17/18 22:00 10/19/18 13:47 Coreg Cr - PO 40 mg BID [facility] Administration Cholecalciferol 5,000 unit 10/17/18 10:00 10/19/18 13:52 Vitamin D3 - PO 5,000 unit DAILY [facility] Administration Ezetimibe 10 mg 10/17/18 10:00 10/19/18 13:46 Zetia - PO 10 mg DAILY [facility] Administration Insulin Aspart 1 vial 10/17/18 07:00 10/19/18 06:12 Novolog Vial Sliding Scale - SQ Not Given ACHS [facility] Protocol Insulin Detemir 20 units 10/18/18 22:00 10/18/18 21:27 Levemir Vial SQ Not Given HS [facility] Non-Formulary Medication 1 each 10/18/18 10:00 10/19/18 13:45 Fluticasone/Vilanterol [Breo Ellipta 100-25 Mcg Inh] IH 1 each DAILY [facility] Administration Propylthiouracil 100 mg 10/19/18 10:00 10/19/18 13:46 Ptu - PO 100 mg BID [facility] Administration Rosuvastatin Calcium 10 mg 10/17/18 22:00 10/18/18 21:27 Crestor - PO 10 mg HS [facility] Administration ASSESSMENT/PLAN: Patient is a 63 year old female with history of CHF, [place] s/p stents, CAD, DMII, hyperthyroidism, CKD stage V, HTN, HLD, presents with complaint of chest tightness, palpitations. Afib: -patient started on heparin drip here -as per Dr. Chen, will defer from starting a NOAC given patient going for procedure -Coreg 40mg BID -continue tele monitoring Hyperthyroidism: -TSH <0.01 -started PTU 100 BID today as per Dr Alonso instructions -c/w beta isrrael therapy Caliectasis: -patient had nephrostomy tube placed this afternoon -holding home AC; currently on Heparin drip CKD stage V: -baseline Cr 3.2 CHF -spoke to Dr. Taylor regarding restarting the patients torsemide; will defer until after the patients procedure tomorrow -monitor daily weights -I's and O's DM -BGM ACHS -ISS ACHS CAD -holding aspirin and prasugrel in light of procedure on 10/19 HTN -c/w coreg 40 BID F/E/N -no fluids -replete electrolytes accordingly -diabetic diet PPX: heparin drip for Afib Problem List - Problems (1) A-fib Code(s): I48.91 - UNSPECIFIED ATRIAL FIBRILLATION (2) Hyperthyroidism Code(s): E05.90 - THYROTOXICOSIS, UNSP WITHOUT THYROTOXIC CRISIS OR STORM (3) Acute pulmonary edema with congestive heart failure Code(s): I50.1 - LEFT VENTRICULAR FAILURE, UNSPECIFIED Visit type - Emergency Visit Emergency Visit: Yes ED Registration Date: 10/16/18 Care time: The patient presented to the Emergency Department on the above date and was hospitalized for further evaluation of their emergent condition. - New Patient This patient is new to me today: No - Critical Care Critical Care patient: No
[2018-10-19] MEDS: ACETAMINOPHEN 500 MG TABLET (FP) PO PRN (16:49)
--- NOTE | 2018-10-19 17:55 | PN ---
Teaching Attending Note Name of Resident: Charmaine Banda ATTENDING PHYSICIAN STATEMENT I saw and evaluated the patient. I reviewed the resident's note and discussed the case with the resident. I agree with the resident's findings and plan as documented with exceptions below. SUBJECTIVE: Patient seen and examined. Just got back from radiology, no dizziness, palpitations or new concerns. OBJECTIVE: Vital Signs Period Temp Pulse Resp BP Sys/Shankar Pulse Ox Last 24 Hr 97.3 F-98.1 F 72-128 16-20 107-148/62-103 99-100 Intake & Output 10/16/18 10/17/18 10/18/18 10/19/18 23:59 23:59 23:59 23:59 Intake Total 820 300 0 Balance 820 300 0 Weight 225 lb 6.4 oz 225 lb 227 lb 6 oz 229 lb 2 oz General: sitting in bed in no acute distress Abdomen:soft, NT, obese, Right PCN tube with no surrounding swelling/erythema or bleed Extremities: no edema Chest: CTAB, no rales or wheezing CVS: S1S2 tachycardic, irregular Home Medications Medication Instructions Recorded Aspirin [ASA -] 81 mg PO DAILY 09/07/18 Cholecalciferol (Vitamin D3) 5,000 unit PO DAILY 09/07/18 [Vitamin D -] Clonazepam 0.5 mg PO QID 09/07/18 Ezetimibe [Zetia] 10 mg PO DAILY 09/07/18 Ferrous Gluconate [Iron] 256 mg PO DAILY 09/07/18 Fluticasone/Vilanterol [Breo 1 each IH DAILY 09/07/18 Ellipta 100-25 Mcg INH] Insulin Aspart [Novolog] 10 unit SQ ASDIR 09/07/18 Insulin Glargine,Hum.rec.anlog 0 unit SQ ASDIR 09/07/18 [Lantus] Prasugrel HCl [Effient] 10 mg PO DAILY 09/07/18 Rosuvastatin Calcium [Crestor] 10 mg PO DAILY 09/07/18 Insulin Sliding Scale [Novolog 1 vial SQ ACHS units 09/15/18 Vial Sliding Scale -] Carvedilol Phosphate [Coreg Cr -] 40 mg PO DAILY 10/17/18 Meclizine HCl 25 mg PO Q6H PRN 10/17/18 Metolazone 2.5 mg PO DAILY 10/17/18 Nitroglycerin Patch [Nitro-Dur] 0.2 mg TD DAILY 10/17/18 Torsemide 20 mg PO TID 10/17/18 Active Medications Acetaminophen (Tylenol -) 500 mg PO Q6H PRN PRN Reason: PAIN Last Admin: 10/19/18 16:49 Dose: 500 mg Carvedilol (Coreg Cr -) 40 mg PO BID [facility] Last Admin: 10/19/18 13:47 Dose: 40 mg Cholecalciferol (Vitamin D3 -) 5,000 unit PO DAILY [facility] Last Admin: 10/19/18 13:52 Dose: 5,000 unit Ezetimibe (Zetia -) 10 mg PO DAILY [facility] Last Admin: 10/19/18 13:46 Dose: 10 mg Insulin Aspart (Novolog Vial Sliding Scale -) 1 vial SQ [facility]; Protocol Last Admin: 10/19/18 16:54 Dose: 4 units Insulin Detemir (Levemir Vial) 20 units SQ [facility] Last Admin: 10/18/18 21:27 Dose: Not Given Non-Formulary Medication (Fluticasone/Vilanterol [Breo Ellipta 100-25 Mcg Inh]) 1 each IH DAILY [facility] Last Admin: 10/19/18 13:45 Dose: 1 each Propylthiouracil (Ptu -) 100 mg PO BID [facility] Last Admin: 10/19/18 13:46 Dose: 100 mg Rosuvastatin Calcium (Crestor -) 10 mg PO HS [facility] Last Admin: 10/18/18 21:27 Dose: 10 mg Laboratory Results - last 24 hr 10/18/18 10/19/18 10/19/18 21:24 05:26 06:00 WBC 2.9 L RBC 4.40 Hgb 10.3 L Hct 33.9 MCV 77.0 L MCH 23.4 L MCHC 30.4 L RDW 16.2 H Plt Count 158 MPV 9.1 PTT (Actin FS) Sodium Potassium Chloride Carbon Dioxide Anion Gap BUN Creatinine Creat Clearance w eGFR POC Glucometer 207 224 Random Glucose Calcium Phosphorus Magnesium Total Bilirubin AST ALT Alkaline Phosphatase Total Protein Albumin 10/19/18 10/19/18 10/19/18 06:00 06:00 16:52 WBC RBC Hgb Hct MCV MCH MCHC RDW Plt Count MPV PTT (Actin FS) 30.0 Sodium 135 L Potassium 4.5 Chloride 100 Carbon Dioxide 21 Anion Gap 13 BUN 88 H Creatinine 3.4 H Creat Clearance w eGFR 13.64 POC Glucometer 261 Random Glucose 228 H Calcium 8.6 Phosphorus 3.8 Magnesium 2.2 Total Bilirubin 0.9 AST 24 ALT 18 Alkaline Phosphatase 139 H Total Protein 6.9 Albumin 3.0 L ASSESSMENT AND PLAN: 63 yo F PMx DM, HTN, HLD, [place] in 2012 s/p stents, CABG, Afib, asthma, hyperthyroidism s/p I-131, CKD, anemia with multi med intolerances, with Chest Pain and palpitations -New severe LV systolic dysfunction,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 Limited medication options given renal dysfunction, poor EF, hyperthyroidism and reported intolerence to medications. Cardiology/endocrine input appreciated. Coreg/low dose PTU. ASA/Prasugrel/torsemide on hold pending left nephrostomy tube. Resume torsemide in 24 hours if renal function stable as patient with weight gain today and ongoing pedal edema. Trop trended to peak. AC per cardiology. off heparin drip. Dispo d/c home in 24 hours if no new concerns. Plan discussed with patient in detail,all questions answered.
[2018-10-19] MEDS: ROSUVASTATIN CA 10 MG TABLET (FP) PO SCH (22:22)
[2018-10-19] MEDS: INSULIN (LEVEMIR) 100 UNITS/ML UNITS SQ SCH (22:23)
[2018-10-20] MEDS: ACETAMINOPHEN 500 MG TABLET (FP) PO PRN (00:52)
--- NOTE | 2018-10-20 05:31 | PN ---
Physical Exam: SUBJECTIVE: Patient seen and examined at bed side , complain of abdominal pain , some bloating had multiple BM, denies any fever, chills, N/V/D/c. denies cp or sob, or palpitation. OBJECTIVE: Vital Signs Period Temp Pulse Resp BP Sys/Shankar Pulse Ox Last 24 Hr 97.3 F-98.1 F 72-126 16-20 105-148/62-103 98-100 GENERAL: Aox3 in AND , sitting in chair HEAD: NC/AT EYES: PERRL, EOMI , sclera anicteric, NECK: supple. LUNGS: CTA B/L , no wheezes, no crackles, no accessory muscle use. HEART: Regular rate and rhythm, S1, S2 without murmur, rub or gallop. ABDOMEN: Soft, nontender, nondistended, normoactive bowel sounds, Nephrostomy in place with blood drainage. EXTREMITIES: 2+ pulses, warm, well-perfused, +2 edema. NEUROLOGICAL:no focal deficit , LE weakness PSYCH: Normal mood, normal affect. SKIN: Warm, dry, normal turgor, Laboratory Results - last 24 hr 10/19/18 10/19/18 10/19/18 05:26 06:00 06:00 WBC 2.9 L RBC 4.40 Hgb 10.3 L Hct 33.9 MCV 77.0 L MCH 23.4 L MCHC 30.4 L RDW 16.2 H Plt Count 158 MPV 9.1 PTT (Actin FS) 30.0 Sodium Potassium Chloride Carbon Dioxide Anion Gap BUN Creatinine Creat Clearance w eGFR POC Glucometer 224 Random Glucose Calcium Phosphorus Magnesium Total Bilirubin AST ALT Alkaline Phosphatase Total Protein Albumin 10/19/18 10/19/18 10/19/18 06:00 16:52 22:19 WBC RBC Hgb Hct MCV MCH MCHC RDW Plt Count MPV PTT (Actin FS) Sodium 135 L Potassium 4.5 Chloride 100 Carbon Dioxide 21 Anion Gap 13 BUN 88 H Creatinine 3.4 H Creat Clearance w eGFR 13.64 POC Glucometer 261 309 Random Glucose 228 H Calcium 8.6 Phosphorus 3.8 Magnesium 2.2 Total Bilirubin 0.9 AST 24 ALT 18 Alkaline Phosphatase 139 H Total Protein 6.9 Albumin 3.0 L Active Medications Generic Name Dose Route Start Last Admin Trade Name Freq PRN Reason Stop Dose Admin Acetaminophen 500 mg 10/19/18 15:24 10/20/18 00:52 Tylenol - PO 500 mg Q6H PRN Administration PAIN Carvedilol 40 mg 10/17/18 22:00 10/19/18 22:22 Coreg Cr - PO 40 mg BID [facility] Administration Cholecalciferol 5,000 unit 10/17/18 10:00 10/19/18 13:52 Vitamin D3 - PO 5,000 unit DAILY [facility] Administration Ezetimibe 10 mg 10/17/18 10:00 10/19/18 13:46 Zetia - PO 10 mg DAILY [facility] Administration Insulin Aspart 1 vial 10/17/18 07:00 10/19/18 22:21 Novolog Vial Sliding Scale - SQ Not Given ACHS [facility] Protocol Insulin Detemir 20 units 10/18/18 22:00 10/19/18 22:23 Levemir Vial SQ 20 units HS [facility] Administration Non-Formulary Medication 1 each 10/18/18 10:00 10/19/18 13:45 Fluticasone/Vilanterol [Breo Ellipta 100-25 Mcg Inh] IH 1 each DAILY [facility] Administration Propylthiouracil 100 mg 10/19/18 10:00 10/19/18 22:22 Ptu - PO 100 mg BID [facility] Administration Rosuvastatin Calcium 10 mg 10/17/18 22:00 10/19/18 22:22 Crestor - PO 10 mg HS [facility] Administration ASSESSMENT/PLAN: Patient is a 63 year old female with history of CHF, [place] s/p stents, CAD, DMII, hyperthyroidism, CKD stage V, HTN, HLD, presents with complaint of chest tightness, palpitations. #Afib: * patient started on heparin drip here * Coreg 40mg BID * tele monitoring #Hyperthyroidism: * TSH <0.01 * started PTU 100 BID today as per Dr Alonso instructions * c/w beta isrrael therapy #obstructive uropathy due to distal urethral stone S/P nephrostomy * holding home AC; currently on Heparin drip * seraginous drainage * monitor kidney unction #CKD stage III: * baseline Cr 3.2...3.4 today * cont to monitor * avoid nephrotoxic agents #LE swelling: * started at time of hyperthyroidism, and remains out of proportion to HF findings * responded well to wraps * defer torsemide as above #Elevated troponin * borderline trop similar to prior baseline values, flat trend--not c/w acs. * sec to HF/CKD #labile HTN: * mult med intolerances in past * bp trending low of late sec to low EF #CAD, prior NSTEMI/PCI: * cont home statin (max tolerated dose rosuva 20 with drug holidays), zetia * bb as bp tolerates c/w coreg 40 BID #anemia: * chronic. baseline hgb 9-10 * stable counts here #CHF * hold torsemide; per cardiology * monitor daily weights * I's and O's #DM * BGM ACHS * ISS ACHS #F/E/N * no fluids * replete electrolytes accordingly * diabetic diet #DVTS PPX: * heparin drip for Afib Visit type - Emergency Visit Emergency Visit: Yes ED Registration Date: 10/16/18 Care time: The patient presented to the Emergency Department on the above date and was hospitalized for further evaluation of their emergent condition. - New Patient This patient is new to me today: Yes Date on this admission: 10/20/18 - Critical Care Critical Care patient: No - Discharge Referral Referred to [facility] Med P.C.: No
[2018-10-20 06:50] LABS: HEMATOCRIT 33.5 % (32.4-45.2); HEMOGLOBIN 10.2 GM/dL (10.7-15.3); MCH 23.5 pg (25.7-33.7); MCHC 30.5 g/dl (32.0-36.0); MEAN PLT VOLUME 9.1 fl (7.5-11.1); PLATELET COUNT 147 K/MM3 (134-434); RBC 4.35 M/mm3 (3.60-5.2); RDW 16.1 % (11.6-15.6); WHITE BLOOD COUNT 3.2 K/mm3 (4.0-10.0)
[2018-10-20 07:56] LABS: ALBUMIN 2.8 g/dl (3.4-5.0); ALK PHOS 120 U/L (45-117); ANION GAP 11 MMOL/L (8-16); BILIRUBIN,TOTAL 0.6 mg/dL (0.2-1); BLOOD UREA NITROGEN 95 mg/dL (7-18); CALCIUM 8.8 mg/dL (8.5-10.1); CHLORIDE 100 mmol/L (98-107); CO2 23 mmol/L (21-32); CREATININE 3.8 mg/dL (0.55-1.3); GLUCOSE,RANDOM 286 mg/dL (74-106); MAGNESIUM 2.2 mg/dL (1.8-2.4); PHOSPHOROUS 4.7 mg/dL (2.5-4.9); POTASSIUM 4.9 mmol/L (3.5-5.1); SGOT/AST 20 U/L (15-37); SGPT/ALT 16 U/L (13-61); SODIUM 134 mmol/L (136-145); TOT PROT 6.7 g/dl (6.4-8.2)
--- NOTE | 2018-10-20 08:53 | PN ---
Progress Note, Physician Chief Complaint: dizzy History of Present Illness: very weak and dizzy today. denies any sob or orthopnea. legs still swollen. bones hurt and GI upset she thinks due to PTU. no cp no cigs - Current Medication List Current Medications: Active Medications Acetaminophen (Tylenol -) 500 mg PO Q6H PRN PRN Reason: PAIN Last Admin: 10/20/18 00:52 Dose: 500 mg Carvedilol (Coreg Cr -) 40 mg PO BID [facility] Last Admin: 10/19/18 22:22 Dose: 40 mg Cholecalciferol (Vitamin D3 -) 5,000 unit PO DAILY [facility] Last Admin: 10/19/18 13:52 Dose: 5,000 unit Ezetimibe (Zetia -) 10 mg PO DAILY [facility] Last Admin: 10/19/18 13:46 Dose: 10 mg Insulin Aspart (Novolog Vial Sliding Scale -) 1 vial SQ [facility]; Protocol Last Admin: 10/19/18 22:21 Dose: Not Given Insulin Detemir (Levemir Vial) 20 units SQ [facility] Last Admin: 10/19/18 22:23 Dose: 20 units Non-Formulary Medication (Fluticasone/Vilanterol [Breo Ellipta 100-25 Mcg Inh]) 1 each IH DAILY [facility] Last Admin: 10/19/18 13:45 Dose: 1 each Propylthiouracil (Ptu -) 100 mg PO BID [facility] Last Admin: 10/19/18 22:22 Dose: 100 mg Rosuvastatin Calcium (Crestor -) 10 mg PO [facility] Last Admin: 10/19/18 22:22 Dose: 10 mg - Objective Vital Signs: Vital Signs Temperature 97.4 F L 10/20/18 02:00 Pulse Rate 77 10/20/18 02:00 Respiratory Rate 20 10/20/18 02:00 Blood Pressure 105/67 10/20/18 02:00 O2 Sat by Pulse Oximetry (%) 98 10/19/18 22:00 Constitutional: Yes: No Distress, Calm Eyes: No: Sclera Icterus HENT: No: Nasal Congestion Cardiovascular: Yes: Regular Rate and Rhythm, JVD, S1, S2, Other (PMI non diplaced). No: Gallop, Murmur Respiratory: Yes: CTA Bilaterally. No: Accessory Muscle Use, Rales, Wheezes Gastrointestinal: Yes: Normal Bowel Sounds, Soft. No: Tenderness Musculoskeletal: Yes: Other (No kyphosis) Extremities: No: Cold Edema: Yes (2+ pretib) Integumentary: No: Jaundice Neurological: Yes: Alert, Oriented (x3) Psychiatric: No: Agitated Labs: CBC, BMP 10/20/18 06:00 10/20/18 06:00 INR, PTT INR 1.34 (0.83-1.09) H 10/16/18 16:54 Assessment/Plan ECG: organized atrial activity: likely PAT with APCs, no definite flutter present. no fib. LVH with repol abn unchanged vs prior CXR: clear lungs Echo 07/2018 inf wall akinetic, other phillip severely hypokinetic, LV mildly dilated, RV function moderately reduced, LV function severely reduced, moderate MR, EF 30% Echo 12/2016: TDS. nl LV size/EF. mild LVH. grade 2 d.d., hi E/e' = high LAP. nl RV. mild LAE. mild-mod MR, mod TR. mild pHTN (46 mmHg) [facility] 2014: unchanged 70-80% distal RCA lesion. patent mLAD stent. 80-90% pLCX-- [facility] KAREN tele: NSR alt with PAT a/p: 63 yo female hx cad/pci, hyperthyroidism with associated tachycardia, palpitations, unintentional wt loss, acute on chronic labile HTN with mult med intolerances, mildly decompensated diast chf, and new LE edema (out of proportion to the degree of CHF), p/w le edema,sob. 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 - JVD on exam, with wt up from 3 wks ago baseline and orthopnea if lies flat. however she is not sob at present, so continue holding torsemide to avoid further worsening of obstructive uropathy - bb dose limited by new hypotension/dizziness--has changed metoprolol succ to coreg CR and insists this causes her less dizziness. cont same coreg - holding hydral, NTG patch (hypotension) - not on SHAN/ARB in setting of ckd obstructive uropathy, OBI on CKD: -probably new baseline creatinine in 3-3.3 range based on recent labs trends recently bumped to 3.5 as outpt--? sec to obstruction -s/p nephrostomy tubes 10/19, creat up to 3.8 today. -hope to avoid dialysis -holding diuretics hyperthyroidism, sinus tach, PAT: - TSH remains undetectable - intolerant of methimazole (elevated LFTs). intolerant of PTU (nausea). - s/p radio-I ablation - high burden of ATach with LV systolic dysfunction, now with new afib - d/w'd dr moreno: only available intervention at this time is to resume low dose PTU (pt self-discontinued it at home) - metopr high dose appeared to control PAT burden better than carvedilol, however caused hypotension/dizzy and pt changed back. she declines changing back to metoprolol. (previously intolerant of atenolol, propranolol). - no amiodarone in light of uncontrolled hyperthyroidism. no digoxin in light of very low GFR. no CCB in light of systolic dysfxn and previous intolerance ( edema) - given no fib present, and no definitive atr flutter thus far, will defer AC for now. - given low bp trend and weakness/dizziness, decr coreg CR back to 40 daily dosing (pt with longstanding HTN baseline bp 140s-160s, often higher--may not tolerate bp 100-110) - currently adequate bp room to re-try add on diltiazem if pt willing (c/o'd GI upset and worsening LE edema with CCB in past) - will d/w EP re: ablation once renal fxn is stabilized, though doubt she is a candidate in current condition (tenuous HF status, uncontrolled hyperthyroidism) LE swelling: - started at time of hyperthyroidism, and remains out of proportion to HF findings - responded well to wraps - defer torsemide as above Elevated troponin - borderline trop similar to prior baseline values, flat trend--not c/w acs. - sec to HF/CKD labile HTN: -mult med intolerances in past -bp trending low of late sec to low EF CAD, prior NSTEMI/PCI: -holding DAPT (aspirin/effient) for perc nephrostomy tube placement 10/19 -cont home statin (max tolerated dose rosuva 20 with drug holidays), zetia -bb as bp tolerates anemia: -chronic. baseline hgb 9-10 -stable counts here
[2018-10-20] MEDS: INSULIN SLIDING SCALE (NOVOLOG) 1 VIAL SQ SCH ×4 (09:01→21:16)
--- NOTE | 2018-10-20 09:45 | PN ---
Teaching Attending Note Name of Resident: Tom Dobbins ATTENDING PHYSICIAN STATEMENT I saw and evaluated the patient. I reviewed the resident's note and discussed the case with the resident. I agree with the resident's findings and plan as documented with exceptions below. SUBJECTIVE: Patient seen and examined. Reports some gas pains, leg swelling unchanged, no chest pain, dizziness, dyspnea, palpitations, abdominal or back pain. OBJECTIVE: Vital Signs Period Temp Pulse Resp BP Sys/Shankar Pulse Ox Last 24 Hr 97.3 F-98.1 F 75-126 16-20 105-148/63-103 98-100 Intake & Output 10/17/18 10/18/18 10/19/18 10/20/18 23:59 23:59 23:59 23:59 Intake Total 820 300 0 Output Total 105 Balance 820 300 0 -105 Weight 225 lb 227 lb 6 oz 229 lb 2 oz 230 lb General: sitting in chair in no acute distress Chest: Positive air entry, no rales or wheezing appreciated Abdomen: soft, obese, NT, Right nephrostomy in place, with sanguinous drainage, no CVA tenderness Extremities: mildly worse pitting pedal edema Active Medications Acetaminophen (Tylenol -) 500 mg PO Q6H PRN PRN Reason: PAIN Last Admin: 10/20/18 00:52 Dose: 500 mg Carvedilol (Coreg Cr -) 40 mg PO BID [facility] Last Admin: 10/19/18 22:22 Dose: 40 mg Cholecalciferol (Vitamin D3 -) 5,000 unit PO DAILY [facility] Last Admin: 10/19/18 13:52 Dose: 5,000 unit Ezetimibe (Zetia -) 10 mg PO DAILY [facility] Last Admin: 10/19/18 13:46 Dose: 10 mg Insulin Aspart (Novolog Vial Sliding Scale -) 1 vial SQ ACHS [facility]; Protocol Last Admin: 10/20/18 09:01 Dose: 6 units Insulin Detemir (Levemir Vial) 20 units SQ HS [facility] Last Admin: 10/19/18 22:23 Dose: 20 units Non-Formulary Medication (Fluticasone/Vilanterol [Breo Ellipta 100-25 Mcg Inh]) 1 each IH DAILY [facility] Last Admin: 10/19/18 13:45 Dose: 1 each Propylthiouracil (Ptu -) 100 mg PO BID [facility] Last Admin: 10/19/18 22:22 Dose: 100 mg Rosuvastatin Calcium (Crestor -) 10 mg PO HS [facility] Last Admin: 10/19/18 22:22 Dose: 10 mg Laboratory Results - last 24 hr 10/19/18 10/19/18 10/20/18 16:52 22:19 05:50 WBC RBC Hgb Hct MCV MCH MCHC RDW Plt Count MPV PTT (Actin FS) Sodium Potassium Chloride Carbon Dioxide Anion Gap BUN Creatinine Creat Clearance w eGFR POC Glucometer 261 309 298 Random Glucose Calcium Phosphorus Magnesium Total Bilirubin AST ALT Alkaline Phosphatase Total Protein Albumin 10/20/18 10/20/18 10/20/18 06:00 06:00 06:00 WBC 3.2 L RBC 4.35 Hgb 10.2 L Hct 33.5 MCV 77.0 L MCH 23.5 L MCHC 30.5 L RDW 16.1 H Plt Count 147 MPV 9.1 PTT (Actin FS) 28.4 Sodium 134 L Potassium 4.9 Chloride 100 Carbon Dioxide 23 Anion Gap 11 BUN 95 H Creatinine 3.8 H Creat Clearance w eGFR 12.00 POC Glucometer Random Glucose 286 H Calcium 8.8 Phosphorus 4.7 Magnesium 2.2 Total Bilirubin 0.6 AST 20 ALT 16 Alkaline Phosphatase 120 H Total Protein 6.7 Albumin 2.8 L ASSESSMENT AND PLAN: 63 yo F PMx DM, HTN, HLD, [place] in 2012 s/p stents, CABG, Afib, asthma, hyperthyroidism s/p I-131, CKD, anemia with multi med intolerances, with Chest Pain and palpitations -New severe LV systolic dysfunction,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 Cardiology/endocrine input appreciated. Coreg/low dose PTU. HR with overall improvement. ASA/Prasugrel/ on hold, resume per cardiology. Renal function mildly worse, overall unchanged to worse pedal edema. Discuss with cardiology about torsemide resumption. Trop trended to peak. AC per cardiology. off heparin drip. Dispo d/c home in 24-48 hours if renal function stable, and volume status improved. Plan discussed with patient in detail,all questions answered.
[2018-10-20] MEDS ORDERED: CARVEDILOL PHOSPHATE CR 40 MG CAPSULE (FP) PO SCH (10:00)
[2018-10-20] MEDS: PROPYLTHIOURACIL 50 MG TABLET (UD) PO SCH ×2 (10:13→21:53)
[2018-10-20] MEDS: CHOLECALCIFEROL (VITAMIN D3) 1,000 UNIT TABLET (FP) PO SCH (11:44)
[2018-10-20] MEDS: EZETIMIBE 10 MG TABLET (FP) PO SCH (11:44)
[2018-10-20] MEDS ORDERED: PT OWN MED DRAWER 7, Y5N ONE (21:08)
[2018-10-20] MEDS: INSULIN (LEVEMIR) 100 UNITS/ML UNITS SQ SCH (21:16)
[2018-10-20] MEDS: ROSUVASTATIN CA 10 MG TABLET (FP) PO SCH (21:53)
[2018-10-21] MEDS ORDERED: clonazePAM 0.5 MG TABLET PO ONE (03:29)
[2018-10-21] MEDS: INSULIN SLIDING SCALE (NOVOLOG) 1 VIAL SQ SCH ×4 (06:16→22:29)
[2018-10-21 08:13] LABS: BASO % 0.1 % (0-2.0); HEMATOCRIT 31.2 % (32.4-45.2); HEMOGLOBIN 10.5 GM/dL (10.7-15.3); LYMPH % 20.1 % (8-40); MCH 25.3 pg (25.7-33.7); MCHC 33.6 g/dl (32.0-36.0); MEAN CELL VOLUME 75.4 fl (80-96); MEAN PLT VOLUME 9.7 fl (7.5-11.1); MONO % 12.2 % (3.8-10.2); NEUT % 67.6 % (42.8-82.8); PLATELET COUNT 153 K/MM3 (134-434); RBC 4.14 M/mm3 (3.60-5.2); RDW 16.1 % (11.6-15.6); WHITE BLOOD COUNT 3.7 K/mm3 (4.0-10.0)
[2018-10-21 08:14] LABS: HEMATOCRIT 31.3 % (32.4-45.2); HEMOGLOBIN 10.6 GM/dL (10.7-15.3); MCH 25.6 pg (25.7-33.7); MCHC 33.7 g/dl (32.0-36.0); MEAN CELL VOLUME 75.8 fl (80-96); MEAN PLT VOLUME 9.5 fl (7.5-11.1); PLATELET COUNT 153 K/MM3 (134-434); RBC 4.13 M/mm3 (3.60-5.2); RDW 15.7 % (11.6-15.6); WHITE BLOOD COUNT 3.9 K/mm3 (4.0-10.0)
[2018-10-21 08:37] LABS: ALBUMIN 2.7 g/dl (3.4-5.0); ALK PHOS 107 U/L (45-117); ANION GAP 12 MMOL/L (8-16); BILIRUBIN,TOTAL 0.8 mg/dL (0.2-1); BLOOD UREA NITROGEN 101 mg/dL (7-18); CALCIUM 8.4 mg/dL (8.5-10.1); CHLORIDE 100 mmol/L (98-107); CO2 21 mmol/L (21-32); CREATININE 4.2 mg/dL (0.55-1.3); GLUCOSE,RANDOM 101 mg/dL (74-106); POTASSIUM 4.6 mmol/L (3.5-5.1); SGOT/AST 17 U/L (15-37); SGPT/ALT 15 U/L (13-61); SODIUM 134 mmol/L (136-145); TOT PROT 6.2 g/dl (6.4-8.2)
[2018-10-21] MEDS: ACETAMINOPHEN 500 MG TABLET (FP) PO PRN ×2 (09:25→18:16)
[2018-10-21] MEDS: EZETIMIBE 10 MG TABLET (FP) PO SCH (09:26)
[2018-10-21] MEDS: PROPYLTHIOURACIL 50 MG TABLET (UD) PO SCH ×2 (09:26→22:32)
[2018-10-21] MEDS: CARVEDILOL PHOSPHATE CR 20 MG CAPSULE (FP) PO SCH (09:27)
--- NOTE | 2018-10-21 10:22 | PN ---
Progress Note (short form) - Note Progress Note: History of Present Illness: no chest pain, palps, dizzy, lightheadedness. stable orthopnea. Current Medications Generic Name Dose Route Start Last Admin Trade Name Frenighat PRN Reason Stop Dose Admin Acetaminophen 500 mg 10/19/18 15:24 10/21/18 09:25 Tylenol - PO 500 mg Q6H PRN Administration PAIN Carvedilol 40 mg 10/20/18 10:26 10/21/18 09:27 Coreg Cr - PO 40 mg DAILY [facility] Administration Cholecalciferol 5,000 unit 10/17/18 10:00 10/20/18 11:44 Vitamin D3 - PO 5,000 unit DAILY [facility] Administration Ezetimibe 10 mg 10/17/18 10:00 10/21/18 09:26 Zetia - PO 10 mg DAILY [facility] Administration Insulin Aspart 1 vial 10/17/18 07:00 10/21/18 06:16 Novolog Vial Sliding Scale - SQ Not Given ACHS [facility] Protocol Insulin Detemir 20 units 10/18/18 22:00 10/20/18 21:16 Levemir Vial SQ Not Given HS [facility] Non-Formulary Medication 1 each 10/18/18 10:00 10/21/18 09:34 Fluticasone/Vilanterol [Breo Ellipta 100-25 Mcg Inh] IH 1 each DAILY [facility] Administration Propylthiouracil 100 mg 10/19/18 10:00 10/21/18 09:26 Ptu - PO 50 mg BID [facility] Administration Rosuvastatin Calcium 10 mg 10/17/18 22:00 10/20/18 21:53 Crestor - PO 10 mg HS [facility] Administration Vital Signs: Vital Signs Period Temp Pulse Resp BP Sys/Shankar Pulse Ox Last 24 Hr 97.0 F-97.8 F 66-90 18-20 102-123/60-75 98 Constitutional: Yes: Well Nourished, No Distress Eyes: No: Sclera Icterus HENT: No: Nasal Congestion Respiratory: Yes: CTA Bilaterally. No: Accessory Muscle Use, Rales, Wheezes Gastrointestinal: Yes: Normal Bowel Sounds. No: Distention, Hepatomegaly, Palpable Mass, Tenderness Cardiovascular: Yes: Regular Rate and Rhythm JVD: Yes Heart Sounds: Yes: S1, S2. No: Gallop Murmur: No: Systolic Murmur, Diastolic Murmur Extremities: No: Cool, Cyanosis Edema: Yes (1+ pretib) Peripheral Pulses: 2+ Left Carotid, 2+ Right Carotid, 2+ Left Doralis Pedis, 2+ Right Dorsalis Pedis Integumentary: No: Jaundice Neurological: Yes: Alert, Oriented (x3) Psychiatric: No: Agitated CBC, BMP 10/21/18 06:00 10/21/18 06:00 Assessment/Plan ECG: organized atrial activity: likely PAT with APCs, no definite flutter present. no fib. LVH with repol abn unchanged vs prior CXR: clear lungs Echo 07/2018 inf wall akinetic, other phillip severely hypokinetic, LV mildly dilated, RV function moderately reduced, LV function severely reduced, moderate MR, EF 30% Echo 12/2016: TDS. nl LV size/EF. mild LVH. grade 2 d.d., hi E/e' = high LAP. nl RV. mild LAE. mild-mod MR, mod TR. mild pHTN (46 mmHg) [facility] 2014: unchanged 70-80% distal RCA lesion. patent mLAD stent. 80-90% pLCX-- [facility] KAREN tele: PAT alternating with SR. a/p: 63 yo female hx cad/pci, hyperthyroidism with associated tachycardia, palpitations, unintentional wt loss, acute on chronic labile HTN with mult med intolerances, mildly decompensated diast chf, and new LE edema (out of proportion to the degree of CHF), p/w le edema,sob. 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 - JVD on exam, with wt up from 3 wks ago baseline and orthopnea if lies flat. however she is not sob at present, so continue holding torsemide to avoid further worsening of obstructive uropathy - bb dose limited by new hypotension/dizziness--has changed metoprolol succ to coreg CR and insists this causes her less dizziness. cont same coreg - holding hydral, NTG patch (hypotension) - not on SHAN/ARB in setting of ckd obstructive uropathy, OBI on CKD: -probably new baseline creatinine in 3-3.3 range based on recent labs trends recently bumped to 3.5 as outpt--? sec to obstruction -s/p nephrostomy tubes 10/19, creat up again today -hope to avoid dialysis -holding diuretics hyperthyroidism, sinus tach, PAT: - TSH remains undetectable - intolerant of methimazole (elevated LFTs). intolerant of PTU (nausea). - s/p radio-I ablation - high burden of ATach with LV systolic dysfunction, now with new afib - d/w'd dr moreno: only available intervention at this time is to resume low dose PTU (pt self-discontinued it at home) - metopr high dose appeared to control PAT burden better than carvedilol, however caused hypotension/dizzy and pt changed back. she declines changing back to metoprolol. (previously intolerant of atenolol, propranolol). - no amiodarone in light of uncontrolled hyperthyroidism. no digoxin in light of very low GFR. no CCB in light of systolic dysfxn and previous intolerance ( edema) - given no fib present, and no definitive atr flutter thus far, will defer AC for now. - given low bp trend and weakness/dizziness, decr coreg CR back to 40 daily dosing (pt with longstanding HTN baseline bp 140s-160s, often higher--may not tolerate bp 100-110) - will d/w EP re: ablation once renal fxn is stabilized, though doubt she is a candidate in current condition (tenuous HF status, uncontrolled hyperthyroidism) LE swelling: - started at time of hyperthyroidism, and remains out of proportion to HF findings - responded well to wraps - defer torsemide as above Elevated troponin - borderline trop similar to prior baseline values, flat trend--not c/w acs. - sec to HF/CKD labile HTN: -mult med intolerances in past -bp trending low of late sec to low EF CAD, prior NSTEMI/PCI: -holding DAPT (aspirin/effient) for perc nephrostomy tube placement 10/19 -cont home statin (max tolerated dose rosuva 20 with drug holidays), zetia -bb as bp tolerates anemia: -chronic. baseline hgb 9-10 -stable counts here
--- NOTE | 2018-10-21 11:30 | PN ---
Progress Note, Physician - Current Medication List Current Medications: Active Medications Acetaminophen (Tylenol -) 500 mg PO Q6H PRN PRN Reason: PAIN Last Admin: 10/21/18 09:25 Dose: 500 mg Carvedilol (Coreg Cr -) 40 mg PO DAILY [facility] Last Admin: 10/21/18 09:27 Dose: 40 mg Cholecalciferol (Vitamin D3 -) 5,000 unit PO DAILY [facility] Last Admin: 10/20/18 11:44 Dose: 5,000 unit Clonazepam (Klonopin -) 0.5 mg PO QID [facility] Ezetimibe (Zetia -) 10 mg PO DAILY [facility] Last Admin: 10/21/18 09:26 Dose: 10 mg Insulin Aspart (Novolog Vial Sliding Scale -) 1 vial SQ [facility]; Protocol Last Admin: 10/21/18 06:16 Dose: Not Given Insulin Detemir (Levemir Vial) 20 units SQ [facility] Last Admin: 10/20/18 21:16 Dose: Not Given Non-Formulary Medication (Fluticasone/Vilanterol [Breo Ellipta 100-25 Mcg Inh]) 1 each IH DAILY [facility] Last Admin: 10/21/18 09:34 Dose: 1 each Propylthiouracil (Ptu -) 100 mg PO BID [facility] Last Admin: 10/21/18 09:26 Dose: 50 mg Rosuvastatin Calcium (Crestor -) 10 mg PO HS [facility] Last Admin: 10/20/18 21:53 Dose: 10 mg - Objective Vital Signs: Vital Signs Temperature 97.4 F L 10/21/18 08:22 Pulse Rate 77 10/21/18 08:22 Respiratory Rate 20 10/21/18 08:22 Blood Pressure 123/75 10/21/18 08:22 O2 Sat by Pulse Oximetry (%) 99 10/21/18 09:00 Labs: CBC, BMP 10/21/18 06:00 10/21/18 06:00 INR, PTT INR 1.34 (0.83-1.09) H 10/16/18 16:54
[2018-10-21] MEDS: CHOLECALCIFEROL (VITAMIN D3) 1,000 UNIT TABLET (FP) PO SCH (12:29)
--- NOTE | 2018-10-21 13:17 | CONSULT ---
Consult Consult Specialty:: Nephrology ( Jose/ Jose Roberto) Reason for Consultation:: Worsening Kidney failure - History of Present Illness History of Present Illness: Thank you for this consult referral. The patient is well known to me. 63 yo F PMx DM, HTN, HLD, [place] in 2012 s/p stents, CABG, Afib, asthma, hyperthyroidism s/p STEINBERG, CKD, anemia with mult med intolerances, with CP and palpitations 1. Acute on Chronic systolic CHF exacerbation- dry weight 205. toresmide was decreased recently due to obstructive uropathy with nephrolithiasis. 2. Afib with RVR- multiple intolerances to medications. on max doses of coreg at this time. 3. Thyrotoxicosis-s/p STEINBERG in the past. Stopped taking PTU because she couldnot tolerate it. Re-started on low dose. 4. Obstructive uropathy due to nephrolithasis-Had placement of R nephrostomy tube on 10/19. 5. Acute on CKD- likely in setting of obstructive nephropathy. The patient has bloody drainage from the nephrolostomy tube. Azotemia worsening. - History Source History Provided By: Patient - Past Medical History Cardio/Vascular: Yes: AFIB, CAD, CHF, HTN, Hyperlipdemia, NV, Mitral Insufficiency, Pulmonary Hypertension Pulmonary: Yes: Sleep Apnea Renal/: Yes: Renal Failure ...: No Endocrine: Yes: Diabetes Mellitus, Hyperthyroidism - Past Surgical History Past Surgical History: Yes: Stent - Alcohol/Substance Use Hx Alcohol Use: No History of Substance Use: reports: None - Smoking History Smoking history: Never smoked Have you smoked in the past 12 months: No Aproximately how many cigarettes per day: 0 - Social History ADL: Independent History of Recent Travel: No Home Medications - Allergies Allergies/Adverse Reactions: Allergies Allergy/AdvReac Type Severity Reaction Status Date / Time Penicillins Allergy Intermediate Hives Verified 10/16/18 15:24 Iodinated Contrast- Oral and Allergy Verified 10/16/18 15:24 IV Dye [Iodinated Contrast Media - IV Dye] tiotropium AdvReac Verified 10/16/18 15:24 [From [facility] with HandiHaler] - Home Medications Home Medications: Ambulatory Orders Aspirin [ASA -] 81 mg PO DAILY 09/07/18 Cholecalciferol (Vitamin D3) [Vitamin D -] 5,000 unit PO DAILY 09/07/18 Clonazepam 0.5 mg PO QID 09/07/18 Ezetimibe [Zetia] 10 mg PO DAILY 09/07/18 Ferrous Gluconate [Iron] 256 mg PO DAILY 09/07/18 Fluticasone/Vilanterol [Breo Ellipta 100-25 Mcg INH] 1 each IH DAILY 09/07/18 Insulin Aspart [Novolog] 10 unit SQ ASDIR 09/07/18 Insulin Glargine,Hum.rec.anlog [Lantus] 0 unit SQ ASDIR 09/07/18 Prasugrel HCl [Effient] 10 mg PO DAILY 09/07/18 Rosuvastatin Calcium [Crestor] 10 mg PO DAILY 09/07/18 Insulin Sliding Scale [Novolog Vial Sliding Scale -] 1 vial SQ ACHS units 09/15 Carvedilol Phosphate [Coreg Cr -] 40 mg PO DAILY 10/17/18 Meclizine HCl 25 mg PO Q6H PRN 10/17/18 Metolazone 2.5 mg PO DAILY 10/17/18 Nitroglycerin Patch [Nitro-Dur] 0.2 mg TD DAILY 10/17/18 Torsemide 20 mg PO TID 10/17/18 Family Disease History - Family Disease History Family Disease History: CA: Mother (breast), Sister (breast), Daughter (colon) Review of Systems - Review of Systems Constitutional: reports: Loss of Appetite, Malaise, Night Sweats, Unintentional Wgt. Loss, Weakness Neck: reports: Decreased ROM Cardiovascular: reports: Chest Pain, Palpitations, Shortness of Breath Respiratory: reports: Cough Gastrointestinal: reports: Bloating Musculoskeletal: reports: Back Pain Neurological: reports: Headache Endocrine: reports: Excessive Sweating Psychiatric: reports: Altered Sleep Pattern, Anxiety Physical Exam Vital Signs: Vital Signs Temperature 97.4 F L 10/21/18 08:22 Pulse Rate 77 10/21/18 08:22 Respiratory Rate 20 10/21/18 08:22 Blood Pressure 123/75 10/21/18 08:22 O2 Sat by Pulse Oximetry (%) 99 10/21/18 09:00 Constitutional: Yes: Anxious, Mild Distress HENT: Yes: Normocephalic Neck: Yes: Trachea Midline Cardiovascular: Yes: Tachycardia, Pulse Irregular, S2, S3 Respiratory: Yes: CTA Bilaterally Gastrointestinal: Yes: Normal Bowel Sounds, Soft, Distention Renal/: Yes: Other (Right perc nephrostomy) Musculoskeletal: Yes: Back Pain, Joint Stiffness Edema: Yes Edema: LLE: 3+, RLE: 3+ Neurological: Yes: Alert, Oriented Psychiatric: Yes: Oriented Labs: CBC, BMP 10/21/18 06:00 10/21/18 06:00 Problem List - Problems (1) A-fib Code(s): I48.91 - UNSPECIFIED ATRIAL FIBRILLATION (2) Acute on chronic heart failure Code(s): I50.9 - HEART FAILURE, UNSPECIFIED Qualifiers: (3) Hyperthyroidism Code(s): E05.90 - THYROTOXICOSIS, UNSP WITHOUT THYROTOXIC CRISIS OR STORM (4) Acute CHF Code(s): I50.9 - HEART FAILURE, UNSPECIFIED Qualifiers: Heart failure type: systolic Qualified Code(s): I50.21 - Acute systolic ( congestive) heart failure (5) Acute on chronic kidney failure Code(s): N17.9 - ACUTE KIDNEY FAILURE, UNSPECIFIED; N18.9 - CHRONIC KIDNEY DISEASE, UNSPECIFIED (6) CAD (coronary artery disease) Code(s): I25.10 - ATHSCL HEART DISEASE OF [place] CORONARY ARTERY W/O ANG PCTRS Qualifiers: Coronary Disease-Associated Artery/Lesion type: [place] artery [place] vs. transplanted heart: [place] heart Associated angina: without angina Qualified Code(s): I25.10 - Atherosclerotic heart disease of [place] coronary artery without angina pectoris (7) CHF exacerbation Code(s): I50.9 - HEART FAILURE, UNSPECIFIED Qualifiers: Heart failure type: unspecified Qualified Code(s): I50.9 - Heart failure, unspecified (8) CKD (chronic kidney disease) Code(s): N18.9 - CHRONIC KIDNEY DISEASE, UNSPECIFIED Qualifiers: Chronic kidney disease stage: stage 4 (severe) Qualified Code(s): N18.4 - Chronic kidney disease, stage 4 (severe) (9) Hydronephrosis Code(s): N13.30 - UNSPECIFIED HYDRONEPHROSIS (10) Thyrotoxicosis Code(s): E05.90 - THYROTOXICOSIS, UNSP WITHOUT THYROTOXIC CRISIS OR STORM Qualifiers: Thyrotoxicosis type: unspecified thyrotoxicosis type Thyrotoxic crisis or storm presence: with thyrotoxic crisis or storm Qualified Code(s): E05.91 - Thyrotoxicosis, unspecified with thyrotoxic crisis or storm (11) HTN (hypertension) Code(s): I10 - ESSENTIAL (PRIMARY) HYPERTENSION Qualifiers: (12) IDDM (insulin dependent diabetes mellitus) Code(s): E11.9 - TYPE 2 DIABETES MELLITUS WITHOUT COMPLICATIONS; Z79.4 - HALF-WAY (CURRENT) USE OF INSULIN Assessment/Plan 63 yo F PMx DM, HTN, HLD, [place] in 2012 s/p stents, CABG, Afib, asthma, hyperthyroidism s/p STEINBERG, CKD, anemia with mult med intolerances, with CP and palpitations 1. Acute on Chronic systolic CHF exacerbation- dry weight 205. toresmide was decreased recently due to obstructive uropathy with nephrolithiasis. 2. Afib with RVR- multiple intolerances to medications. on max doses of coreg at this time. 3. Thyrotoxicosis-s/p STEINBERG in the past. Stopped taking PTU because she couldnot tolerate it. Re-started on low dose. 4. Obstructive uropathy due to nephrolithasis-Had placement of R nephrostomy tube on 10/19. 5. Acute on CKD- likely in setting of obstructive nephropathy. The patient has advanced CKD, which is superimposed by OBI....Obstruction, Hemodynamic. Renal functions worsening in spite of PERC nephrostomy. The pateint may not get significant improvement from her azotemia. Should consider Good BP control, without any tendency for Hypotension. Hypotension can cause faurther acute worsening of the azotemia. Has significant bipedal edema. Use of loop diuretics may have deleterious effects at this point, by further deterioration of the renal perfusion. If azotemia worsens, the patient may require Dialysis. Thank you. Will follow with you. Tamara Garcia MD
[2018-10-21] MEDS: clonazePAM 0.5 MG TABLET PO SCH ×3 (13:18→21:37)
--- NOTE | 2018-10-21 13:57 | PN ---
Physical Exam: SUBJECTIVE: Patient seen and examined at bedside.overnight patient was having some episodes of dizziness overnight and is having some pain at the nephrostomy tube sight. she states she has not made any urine since yesterday morning. she denies having any trouble breathing. patient was seen by nephrology this am who states that patient may need dialysis if azotemia worsens. OBJECTIVE: Vital Signs Period Temp Pulse Resp BP Sys/Shankar Pulse Ox Last 24 Hr 97.0 F-97.8 F 66-90 18-20 102-123/60-75 98-99 GENERAL: The patient is awake, alert,, in slight acute distress. EYES: no scleral icterus NECK: no JVD, R thyromegaly LUNGS: Breath sounds equal, clear to auscultation bilaterally, no wheezes, no crackles, no accessory muscle use. HEART: Regular rhythm and tachycardic S1, S2 without murmur, rub or gallop. ABDOMEN: distended ; non-tender, +BS in all 4 quadrants EXTREMITIES: 2+ pulses, warm, well-perfused, 2+ edema B/L. SKIN: Warm, dry, normal turgor, no rashes or lesions noted Laboratory Results - last 24 hr 10/20/18 10/20/18 10/21/18 17:04 21:12 04:19 WBC RBC Hgb Hct MCV MCH MCHC RDW Plt Count MPV Absolute Neuts (auto) Neutrophils % Lymphocytes % Monocytes % Eosinophils % Basophils % Nucleated RBC % PTT (Actin FS) Sodium Potassium Chloride Carbon Dioxide Anion Gap BUN Creatinine Creat Clearance w eGFR POC Glucometer 123 122 120 Random Glucose Calcium Total Bilirubin AST ALT Alkaline Phosphatase Total Protein Albumin 10/21/18 10/21/18 10/21/18 06:00 06:00 06:00 WBC 3.9 L 3.7 L RBC 4.13 4.14 Hgb 10.6 L 10.5 L Hct 31.3 L 31.2 L MCV 75.8 L 75.4 L MCH 25.6 L 25.3 L MCHC 33.7 33.6 RDW 15.7 H 16.1 H Plt Count 153 153 MPV 9.5 9.7 Absolute Neuts (auto) 2.5 Neutrophils % 67.6 D Lymphocytes % 20.1 D Monocytes % 12.2 H Eosinophils % 0.0 D Basophils % 0.1 Nucleated RBC % 0 PTT (Actin FS) 24.6 L Sodium Potassium Chloride Carbon Dioxide Anion Gap BUN Creatinine Creat Clearance w eGFR POC Glucometer Random Glucose Calcium Total Bilirubin AST ALT Alkaline Phosphatase Total Protein Albumin 10/21/18 10/21/18 06:00 11:25 WBC RBC Hgb Hct MCV MCH MCHC RDW Plt Count MPV Absolute Neuts (auto) Neutrophils % Lymphocytes % Monocytes % Eosinophils % Basophils % Nucleated RBC % PTT (Actin FS) Sodium 134 L Potassium 4.6 Chloride 100 Carbon Dioxide 21 Anion Gap 12 BUN 101 H Creatinine 4.2 H Creat Clearance w eGFR 10.69 POC Glucometer 186 Random Glucose 101 Calcium 8.4 L Total Bilirubin 0.8 AST 17 ALT 15 Alkaline Phosphatase 107 Total Protein 6.2 L Albumin 2.7 L Active Medications Generic Name Dose Route Start Last Admin Trade Name Freq PRN Reason Stop Dose Admin Acetaminophen 500 mg 10/19/18 15:24 10/21/18 09:25 Tylenol - PO 500 mg Q6H PRN Administration PAIN Carvedilol 40 mg 10/20/18 10:26 10/21/18 09:27 Coreg Cr - PO 40 mg DAILY LALO Administration Cholecalciferol 5,000 unit 10/17/18 10:00 10/21/18 12:29 Vitamin D3 - PO 5,000 unit DAILY LALO Administration Clonazepam 0.5 mg 10/21/18 14:00 10/21/18 13:18 Klonopin - PO 0.5 mg QID LALO Administration Ezetimibe 10 mg 10/17/18 10:00 10/21/18 09:26 Zetia - PO 10 mg DAILY LALO Administration Insulin Aspart 1 vial 10/17/18 07:00 10/21/18 12:27 Novolog Vial Sliding Scale - SQ 2 units ACHS LALO Administration Protocol Insulin Detemir 20 units 10/18/18 22:00 10/20/18 21:16 Levemir Vial SQ Not Given HS LALO Non-Formulary Medication 1 each 10/18/18 10:00 10/21/18 09:34 Fluticasone/Vilanterol [Breo Ellipta 100-25 Mcg Inh] IH 1 each DAILY [facility] Administration Propylthiouracil 100 mg 10/19/18 10:00 10/21/18 09:26 Ptu - PO 50 mg BID LALO Administration Rosuvastatin Calcium 10 mg 10/17/18 22:00 10/20/18 21:53 Crestor - PO 10 mg HS LALO Administration ASSESSMENT/PLAN: Patient is a 63 year old female with history of CHF, CT s/p stents, CAD, DMII, hyperthyroidism, CKD stage V, HTN, HLD, presents with complaint of chest tightness, palpitations. Afib: -patient started on heparin drip here -as per Dr. Chen, will defer from starting a NOAC given patient going for procedure -Coreg 40 daily -continue tele monitoring Hyperthyroidism: -TSH <0.01 -started PTU 100 BID today as per Dr Alonso instructions -c/w beta isrrael therapy Caliectasis: -patient had nephrostomy tube placed this afternoon -holding home AC; currently on Heparin drip CKD stage V: -baseline Cr 3.2; increased to 4.2 -nephrology saw patient; potentially might need dailysis if azotemia worsens CHF -spoke to Dr. Taylor regarding restarting the patients torsemide; -monitor daily weights -I's and O's -avoiding loops diuretics for now as it'll worsen uropathy DM -BGM ACHS -ISS ACHS CAD -holding aspirin and prasugrel in light of procedure on 10/19 HTN -c/w coreg 40 BID F/E/N -no fluids -replete electrolytes accordingly -diabetic diet PPX: heparin drip for Afib Problem List - Problems (1) A-fib Code(s): I48.91 - UNSPECIFIED ATRIAL FIBRILLATION (2) Hyperthyroidism Code(s): E05.90 - THYROTOXICOSIS, UNSP WITHOUT THYROTOXIC CRISIS OR STORM (3) Acute pulmonary edema with congestive heart failure Code(s): I50.1 - LEFT VENTRICULAR FAILURE, UNSPECIFIED Visit type - Emergency Visit Emergency Visit: Yes ED Registration Date: 10/16/18 Care time: The patient presented to the Emergency Department on the above date and was hospitalized for further evaluation of their emergent condition. - New Patient This patient is new to me today: No - Critical Care Critical Care patient: No
--- NOTE | 2018-10-21 18:26 | PN ---
Teaching Attending Note Name of Resident: Charmaine Banda ATTENDING PHYSICIAN STATEMENT I saw and evaluated the patient. I reviewed the resident's note and discussed the case with the resident. I agree with the resident's findings and plan as documented with exceptions below. SUBJECTIVE: Patient seen and examined. intermittently dizzy. some dyspnea and leg swelling. some discomfort around nephrostomy tube. OBJECTIVE: Vital Signs Period Temp Pulse Resp BP Sys/Shankar Pulse Ox Last 24 Hr 97.0 F-97.8 F 66-90 18-20 102-123/60-75 98-99 Intake & Output 10/18/18 10/19/18 10/20/18 10/21/18 23:59 23:59 23:59 23:59 Intake Total 300 0 750 Output Total 235 10 Balance 300 0 -235 740 Weight 227 lb 6 oz 229 lb 2 oz 230 lb 232 lb General: sitting at edge of bed, no acute distress Chest: decreased breath sounds at bases with few rales above Abdomen:Soft, distended, NT, some tenderness around right nephrostomy site Extremities: 3+ pitting pedal edema, looks worse than yesterday Active Medications Acetaminophen (Tylenol -) 500 mg PO Q6H PRN PRN Reason: PAIN Last Admin: 10/21/18 18:16 Dose: 500 mg Carvedilol (Coreg Cr -) 40 mg PO DAILY [facility] Last Admin: 10/21/18 09:27 Dose: 40 mg Cholecalciferol (Vitamin D3 -) 5,000 unit PO DAILY [facility] Last Admin: 10/21/18 12:29 Dose: 5,000 unit Clonazepam (Klonopin -) 0.5 mg PO QID [facility] Last Admin: 10/21/18 17:56 Dose: Not Given Ezetimibe (Zetia -) 10 mg PO DAILY [facility] Last Admin: 10/21/18 09:26 Dose: 10 mg Insulin Aspart (Novolog Vial Sliding Scale -) 1 vial SQ ACHS [facility]; Protocol Last Admin: 10/21/18 17:05 Dose: 2 units Insulin Detemir (Levemir Vial) 20 units SQ HS [facility] Last Admin: 10/20/18 21:16 Dose: Not Given Non-Formulary Medication (Fluticasone/Vilanterol [Breo Ellipta 100-25 Mcg Inh]) 1 each IH DAILY [facility] Last Admin: 10/21/18 09:34 Dose: 1 each Propylthiouracil (Ptu -) 100 mg PO BID [facility] Last Admin: 10/21/18 09:26 Dose: 50 mg Rosuvastatin Calcium (Crestor -) 10 mg PO HS [facility] Last Admin: 10/20/18 21:53 Dose: 10 mg Laboratory Results - last 24 hr 10/20/18 10/21/18 10/21/18 21:12 04:19 06:00 WBC 3.9 L RBC 4.13 Hgb 10.6 L Hct 31.3 L MCV 75.8 L MCH 25.6 L MCHC 33.7 RDW 15.7 H Plt Count 153 MPV 9.5 Absolute Neuts (auto) Neutrophils % Lymphocytes % Monocytes % Eosinophils % Basophils % Nucleated RBC % PTT (Actin FS) Sodium Potassium Chloride Carbon Dioxide Anion Gap BUN Creatinine Creat Clearance w eGFR POC Glucometer 122 120 Random Glucose Calcium Total Bilirubin AST ALT Alkaline Phosphatase Total Protein Albumin 10/21/18 10/21/18 10/21/18 06:00 06:00 06:00 WBC 3.7 L RBC 4.14 Hgb 10.5 L Hct 31.2 L MCV 75.4 L MCH 25.3 L MCHC 33.6 RDW 16.1 H Plt Count 153 MPV 9.7 Absolute Neuts (auto) 2.5 Neutrophils % 67.6 D Lymphocytes % 20.1 D Monocytes % 12.2 H Eosinophils % 0.0 D Basophils % 0.1 Nucleated RBC % 0 PTT (Actin FS) 24.6 L Sodium 134 L Potassium 4.6 Chloride 100 Carbon Dioxide 21 Anion Gap 12 BUN 101 H Creatinine 4.2 H Creat Clearance w eGFR 10.69 POC Glucometer Random Glucose 101 Calcium 8.4 L Total Bilirubin 0.8 AST 17 ALT 15 Alkaline Phosphatase 107 Total Protein 6.2 L Albumin 2.7 L 10/21/18 10/21/18 11:25 17:04 WBC RBC Hgb Hct MCV MCH MCHC RDW Plt Count MPV Absolute Neuts (auto) Neutrophils % Lymphocytes % Monocytes % Eosinophils % Basophils % Nucleated RBC % PTT (Actin FS) Sodium Potassium Chloride Carbon Dioxide Anion Gap BUN Creatinine Creat Clearance w eGFR POC Glucometer 186 163 Random Glucose Calcium Total Bilirubin AST ALT Alkaline Phosphatase Total Protein Albumin Microbiology 10/19/18 11:24 Urine - Urine Nephrostomy Tube Right Urine Culture - Final NO GROWTH OBTAINED 10/16/18 16:57 Urine - Urine Clean Catch Urine Culture - Final NO GROWTH OBTAINED CT A/p Results reviewed ASSESSMENT AND PLAN: 63 yo F PMx DM, HTN, HLD, CT in 2012 s/p stents, CABG, Afib, asthma, hyperthyroidism s/p I-131, CKD, anemia with multi med intolerances, with Chest Pain and palpitations -New severe LV systolic dysfunction,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 Renal function worse. CT A/P done, no obstruction but anasarcic. Renal input noted, suspect from poor renal function/cardiomyopathy. Discuss with renal/cardiolgy about trial with dobutamine/lasix. Endocrine input appreciated. Coreg, split PTU for better tolerance. ASA/Prasugrel/ on hold, resume per cardiology. Trop trended to peak. AC per cardiology. off heparin drip. Dispo hold off on d/c given worsening renal function and volume overload. Plan discussed with patient in detail,all questions answered.
[2018-10-21] MEDS: ROSUVASTATIN CA 10 MG TABLET (FP) PO SCH (21:37)
[2018-10-21] MEDS: INSULIN (LEVEMIR) 100 UNITS/ML UNITS SQ SCH (22:28)
[2018-10-22] MEDS: INSULIN SLIDING SCALE (NOVOLOG) 1 VIAL SQ SCH ×4 (06:18→21:38)
[2018-10-22 07:12] LABS: HEMATOCRIT 34.1 % (32.4-45.2); HEMOGLOBIN 10.5 GM/dL (10.7-15.3); MCH 23.3 pg (25.7-33.7); MCHC 30.9 g/dl (32.0-36.0); MEAN CELL VOLUME 75.6 fl (80-96); MEAN PLT VOLUME 9.3 fl (7.5-11.1); PLATELET COUNT 141 K/MM3 (134-434); RBC 4.51 M/mm3 (3.60-5.2); WHITE BLOOD COUNT 3.7 K/mm3 (4.0-10.0)
--- NOTE | 2018-10-22 08:03 | PN ---
Progress Note (short form) - Note Progress Note: Renal follow up for OBI/CKD Pt seen and examined at the bedside awake and alert has mild and leg swelling no cp, abd pain, N/V/D + fatigue made more urine last night Vital Signs Temperature 97.3 F L 10/22/18 06:00 Pulse Rate 66 10/22/18 06:00 Respiratory Rate 18 10/22/18 06:00 Blood Pressure 103/64 10/22/18 06:00 O2 Sat by Pulse Oximetry (%) 99 10/21/18 21:00 Intake & Output 10/19/18 10/20/18 10/21/18 10/22/18 23:59 23:59 23:59 23:59 Intake Total 0 990 120 Output Total 235 110 Balance 0 -235 880 120 Weight 103.929 kg 104.326 kg 105.233 kg 105.687 kg NAD RRR, No Rub Dec Bs at lung bases obese abd +++edema in LE CBC, BMP 10/22/18 06:40 Laboratory Tests 10/19/18 10/20/18 10/21/18 06:00 06:00 06:00 Creatinine 3.4 H 3.8 H 4.2 H Laboratory Tests 10/18/18 10/22/18 10/22/18 15:00 06:40 06:40 MCV 75.6 L Urine Protein Negative Urine Blood Negative Hep Bs Antigen Pending Laboratory Tests 10/21/18 06:00 Creat Clearance w eGFR 10.69 Current Medications Acetaminophen (Tylenol -) 500 mg PO Q6H PRN PRN Reason: PAIN Last Admin: 10/21/18 18:16 Dose: 500 mg Carvedilol (Coreg Cr -) 40 mg PO DAILY [facility] Last Admin: 10/21/18 09:27 Dose: 40 mg Cholecalciferol (Vitamin D3 -) 5,000 unit PO DAILY [facility] Last Admin: 10/21/18 12:29 Dose: 5,000 unit Clonazepam (Klonopin -) 0.5 mg PO QID [facility] Last Admin: 10/21/18 21:37 Dose: 0.5 mg Ezetimibe (Zetia -) 10 mg PO DAILY [facility] Last Admin: 10/21/18 09:26 Dose: 10 mg Insulin Aspart (Novolog Vial Sliding Scale -) 1 vial SQ ACHS [facility]; Protocol Last Admin: 10/22/18 06:18 Dose: Not Given Insulin Detemir (Levemir Vial) 20 units SQ HS [facility] Last Admin: 10/21/18 22:28 Dose: Not Given Non-Formulary Medication (Fluticasone/Vilanterol [Breo Ellipta 100-25 Mcg Inh]) 1 each IH DAILY [facility] Last Admin: 10/21/18 09:34 Dose: 1 each Propylthiouracil (Ptu -) 100 mg PO BID [facility] Last Admin: 10/21/18 22:32 Dose: 50 mg Rosuvastatin Calcium (Crestor -) 10 mg PO HS [facility] Last Admin: 10/21/18 21:37 Dose: 10 mg 63 yo F PMx DM, HTN, HLD, [place] in 2012 s/p stents, CABG, Afib, asthma, hyperthyroidism s/p STEINBERG, CKD, anemia with mult med intolerances, with CP and palpitations #OBI on CKD with unilateral obstruction #Acute on chronic CHF #Hypertension #Anemia #Hyperthyroidism Renal function is worse then baseline and progressively getting worse no overt uremic symptoms to warrant urgent INFORMATION SECURITY MANAGER will need aggressive diuresis with high dose loop diuretic for volume management if pt is not responsive and no clinical improvement is seen in 48 hours will need INFORMATION SECURITY MANAGER dose all meds for CrCl less then 15 discussed with cardiology and primary team no KRISTA indicated at this time Goyo Smith DO
[2018-10-22 08:14] LABS: ANION GAP 11 MMOL/L (8-16); CALCIUM 8.4 mg/dL (8.5-10.1); CHLORIDE 99 mmol/L (98-107); CO2 23 mmol/L (21-32); CREATININE 4.4 mg/dL (0.55-1.3); GLUCOSE,RANDOM 85 mg/dL (74-106); MAGNESIUM 2.3 mg/dL (1.8-2.4); PHOSPHOROUS 4.4 mg/dL (2.5-4.9); POTASSIUM 4.5 mmol/L (3.5-5.1); SODIUM 134 mmol/L (136-145)
--- NOTE | 2018-10-22 08:54 | PN ---
Progress Note, Physician Chief Complaint: OBI, anasarca History of Present Illness: she is teary and despondent about worsening renal fxn and reality of dialysis no sob. leg swelling persists. palpitations remain much improved no cp no cigs - Current Medication List Current Medications: Active Medications Acetaminophen (Tylenol -) 500 mg PO Q6H PRN PRN Reason: PAIN Last Admin: 10/21/18 18:16 Dose: 500 mg Carvedilol (Coreg Cr -) 40 mg PO DAILY [facility] Last Admin: 10/21/18 09:27 Dose: 40 mg Cholecalciferol (Vitamin D3 -) 5,000 unit PO DAILY [facility] Last Admin: 10/21/18 12:29 Dose: 5,000 unit Clonazepam (Klonopin -) 0.5 mg PO QID [facility] Last Admin: 10/21/18 21:37 Dose: 0.5 mg Ezetimibe (Zetia -) 10 mg PO DAILY [facility] Last Admin: 10/21/18 09:26 Dose: 10 mg Insulin Aspart (Novolog Vial Sliding Scale -) 1 vial SQ [facility]; Protocol Last Admin: 10/22/18 06:18 Dose: Not Given Insulin Detemir (Levemir Vial) 20 units SQ [facility] Last Admin: 10/21/18 22:28 Dose: Not Given Non-Formulary Medication (Fluticasone/Vilanterol [Breo Ellipta 100-25 Mcg Inh]) 1 each IH DAILY [facility] Last Admin: 10/21/18 09:34 Dose: 1 each Propylthiouracil (Ptu -) 100 mg PO BID [facility] Last Admin: 10/21/18 22:32 Dose: 50 mg Rosuvastatin Calcium (Crestor -) 10 mg PO [facility] Last Admin: 10/21/18 21:37 Dose: 10 mg - Objective Vital Signs: Vital Signs Temperature 97.3 F L 10/22/18 06:00 Pulse Rate 66 10/22/18 06:00 Respiratory Rate 18 10/22/18 06:00 Blood Pressure 103/64 10/22/18 06:00 O2 Sat by Pulse Oximetry (%) 99 10/21/18 21:00 Constitutional: Yes: No Distress, Calm Eyes: No: Sclera Icterus HENT: No: Nasal Congestion Cardiovascular: Yes: Regular Rate and Rhythm, JVD, S1, S2, Other (PMI non diplaced). No: Gallop, Murmur Respiratory: Yes: CTA Bilaterally, Diminished (bases). No: Accessory Muscle Use , Rales, Wheezes Gastrointestinal: Yes: Normal Bowel Sounds, Soft. No: Tenderness Musculoskeletal: Yes: Other (No kyphosis) Extremities: No: Cold Edema: Yes (2+ pretib) Integumentary: No: Jaundice Neurological: Yes: Alert, Oriented (x3) Psychiatric: No: Agitated Labs: CBC, BMP 10/22/18 06:40 10/22/18 06:40 INR, PTT INR 1.34 (0.83-1.09) H 10/16/18 16:54 Assessment/Plan ECG: organized atrial activity: likely PAT with APCs, no definite flutter present. no fib. LVH with repol abn unchanged vs prior CXR: clear lungs Echo 07/2018: inf wall akinetic, other phillip severely hypokinetic, LV mildly dilated, RV function moderately reduced, LV function severely reduced, moderate MR, EF 30% images reviewed: global HK EF 30-35%, RV hypo moderate Echo 12/2016: TDS. nl LV size/EF. mild LVH. grade 2 d.d., hi E/e' = high LAP. nl RV. mild LAE. mild-mod MR, mod TR. mild pHTN (46 mmHg) [facility] 2014: unchanged 70-80% distal RCA lesion. patent mLAD stent. 80-90% pLCX-- [facility]AREN CT abdomen 10/21: mod bilat effusion, mod ascites, marked subcutaneous edema c/ w anasarca. no hydronephrosis. tele: NSR > PAT a/p: 63 yo female hx cad/pci, hyperthyroidism with associated tachycardia, palpitations, unintentional wt loss, acute on chronic labile HTN with mult med intolerances, mildly decompensated diast chf, and new LE edema (out of proportion to the degree of CHF), p/w le edema,sob. 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 - JVD on exam, with wt up from 3 wks ago baseline and orthopnea if lies flat. however she is not sob at present, so continue holding torsemide to avoid further worsening of obstructive uropathy - 10/22: renal fxn declining precipitously over past 48 hrs, creat 4.4 today). likely due to cardiorenal syndrome with marked fluid overload including bilat effusions on CT chest, and good relief of urinary obstruction (i.e. no hydro) s/ p nephrostomy tubes. she is soon to require dialysis for volume mgmt unless she can be effectively diuresed. hopefully renal fxn will improve once volume status improves. she has not diuresed subjectively at home to torsemide 80 qd she says. wt up 8 lbs since admit, JVD persists. - will try lasix 100 iv bid today--if poor diuretic response or renal fxn worsening tomorrow, will try low dose milrinone inotropic support (if can avoid signif hypotension, uncontrolled PAT/afib, and excessive ventricular ectopy). - bp/dizziness will not tolerate nitrates at present time. - bb dose limited by new hypotension/dizziness--has changed metoprolol succ to coreg CR and insists this causes her less dizziness. cont same coreg - holding hydral, NTG patch (hypotension) - not on SHAN/ARB in setting of ckd obstructive uropathy, OBI on CKD: -probably new baseline creatinine in 3-3.3 range based on recent labs trends recently bumped to 3.5 as outpt--? sec to obstruction -s/p nephrostomy tubes 10/19, creat rising sec to cardiorenal syndrome -HF optimization as above -hope to avoid dialysis hyperthyroidism, sinus tach, PAT: - TSH remains undetectable - intolerant of methimazole (elevated LFTs). intolerant of PTU (nausea). - s/p radio-I ablation - high burden of ATach with LV systolic dysfunction, now with new afib - d/w'd dr moreno: only available intervention at this time is to resume low dose PTU (pt self-discontinued it at home) - metopr high dose appeared to control PAT burden better than carvedilol, however caused hypotension/dizzy and pt changed back. she declines changing back to metoprolol. (previously intolerant of atenolol, propranolol). - no amiodarone in light of uncontrolled hyperthyroidism. no digoxin in light of very low GFR. no CCB in light of systolic dysfxn and previous intolerance ( edema) - given no fib present, and no definitive atr flutter thus far, will defer AC for now. - given low bp trend and weakness/dizziness, decr coreg CR back to 40 daily dosing (pt with longstanding HTN baseline bp 140s-160s, often higher--may not tolerate bp 100-110) - 10/22: PAT burden is much improved, ? thyroid fxn starting to improve--repeat TSH. continuce coreg CR 40 qd - will d/w EP re: ablation once renal fxn is stabilized, though doubt she is a candidate in current condition (tenuous HF status, uncontrolled hyperthyroidism) LE swelling: - started at time of hyperthyroidism, and remains out of proportion to HF findings - responded well to wraps - defer torsemide as above Elevated troponin - borderline trop similar to prior baseline values, flat trend--not c/w acs. - sec to HF/CKD labile HTN: -mult med intolerances in past -bp trending low of late sec to low EF CAD, prior NSTEMI/PCI: -holding DAPT (aspirin/effient) for perc nephrostomy tube placement 10/19 -cont home statin (max tolerated dose rosuva 20 with drug holidays), zetia -bb as bp tolerates anemia: -chronic. baseline hgb 9-10 -stable counts here
[2018-10-22] MEDS ORDERED: PT OWN MED DRAWER 7, Y5N ONE ×2 (09:17→21:25)
[2018-10-22 09:19] LABS: BLOOD UREA NITROGEN 109 mg/dL (7-18)
[2018-10-22] MEDS: CARVEDILOL PHOSPHATE CR 20 MG CAPSULE (FP) PO SCH (09:28)
[2018-10-22] MEDS: clonazePAM 0.5 MG TABLET PO SCH ×4 (09:28→21:37)
[2018-10-22] MEDS: EZETIMIBE 10 MG TABLET (FP) PO SCH (09:29)
[2018-10-22] MEDS: PROPYLTHIOURACIL 50 MG TABLET (UD) PO SCH ×2 (09:37→21:37)
--- NOTE | 2018-10-22 10:17 | PN ---
Teaching Attending Note Name of Resident: Charamine Banda ATTENDING PHYSICIAN STATEMENT I saw and evaluated the patient. I reviewed the resident's note and discussed the case with the resident. I agree with the resident's findings and plan as documented with exceptions below. SUBJECTIVE: Patient seen and examined. overall weak, shortness of breath with activity, intermittent dizziness. Some pain at the nephrostomy site. Persistent leg swelling. Overall feels unchanged to a little worse. OBJECTIVE: Vital Signs Period Temp Pulse Resp BP Sys/Shankar Pulse Ox Last 24 Hr 97.3 F-97.5 F 66-88 18-20 97-111/64-75 99 Intake & Output 10/19/18 10/20/18 10/21/18 10/22/18 23:59 23:59 23:59 23:59 Intake Total 0 990 120 Output Total 235 110 Balance 0 -235 880 120 Weight 229 lb 2 oz 230 lb 232 lb 233 lb General: sitting in bed in no acute distress Chest: decreased breath sounds all over, more in bases, unable to appreciate rales or wheezing Abdomen:soft, obese, mild tenderness at right nephrostomy site, draining freely , no swelling/erythema or discharge noted Extremities: overall unchanged 3+ pedal edema Active Medications Acetaminophen (Tylenol -) 500 mg PO Q6H PRN PRN Reason: PAIN Last Admin: 10/21/18 18:16 Dose: 500 mg Carvedilol (Coreg Cr -) 40 mg PO DAILY [facility] Last Admin: 10/22/18 09:28 Dose: 40 mg Cholecalciferol (Vitamin D3 -) 5,000 unit PO DAILY [facility] Last Admin: 10/21/18 12:29 Dose: 5,000 unit Clonazepam (Klonopin -) 0.5 mg PO QID [facility] Last Admin: 10/22/18 09:28 Dose: 0.5 mg Ezetimibe (Zetia -) 10 mg PO DAILY [facility] Last Admin: 10/22/18 09:29 Dose: Not Given Insulin Aspart (Novolog Vial Sliding Scale -) 1 vial SQ [facility]; Protocol Last Admin: 10/22/18 06:18 Dose: Not Given Insulin Detemir (Levemir Vial) 15 units SQ [facility] Non-Formulary Medication (Fluticasone/Vilanterol [Breo Ellipta 100-25 Mcg Inh]) 1 each IH DAILY [facility] Last Admin: 10/22/18 09:39 Dose: 1 each Propylthiouracil (Ptu -) 100 mg PO BID [facility] Last Admin: 10/22/18 09:37 Dose: 50 mg Rosuvastatin Calcium (Crestor -) 10 mg PO HS [facility] Last Admin: 10/21/18 21:37 Dose: 10 mg Laboratory Results - last 24 hr 10/21/18 10/21/18 10/21/18 11:25 17:04 22:17 WBC RBC Hgb Hct MCV MCH MCHC RDW Plt Count MPV PTT (Actin FS) Sodium Potassium Chloride Carbon Dioxide Anion Gap BUN Creatinine Creat Clearance w eGFR POC Glucometer 186 163 183 Random Glucose Calcium Phosphorus Magnesium Free T4 10/22/18 10/22/18 10/22/18 06:09 06:40 06:40 WBC 3.7 L RBC 4.51 Hgb 10.5 L Hct 34.1 MCV 75.6 L MCH 23.3 L MCHC 30.9 L RDW 16.0 H Plt Count 141 MPV 9.3 PTT (Actin FS) 26.5 Sodium Potassium Chloride Carbon Dioxide Anion Gap BUN Creatinine Creat Clearance w eGFR POC Glucometer 91 Random Glucose Calcium Phosphorus Magnesium Free T4 10/22/18 10/22/18 06:40 06:40 WBC RBC Hgb Hct MCV MCH MCHC RDW Plt Count MPV PTT (Actin FS) Sodium 134 L Potassium 4.5 Chloride 99 Carbon Dioxide 23 Anion Gap 11 BUN 109 H* Creatinine 4.4 H Creat Clearance w eGFR 10.13 POC Glucometer Random Glucose 85 Calcium 8.4 L Phosphorus 4.4 Magnesium 2.3 Free T4 1.56 H Microbiology 10/19/18 11:24 Urine - Urine Nephrostomy Tube Right Urine Culture - Final NO GROWTH OBTAINED 10/16/18 16:57 Urine - Urine Clean Catch Urine Culture - Final NO GROWTH OBTAINED CT A/P results reviewed ASSESSMENT AND PLAN: 63 yo F PMx DM, HTN, HLD, [place] in 2013 s/p stents, CABG, Afib, asthma, hyperthyroidism s/p I-131, CKD, anemia with multi med intolerances, with Chest Pain and palpitations -New severe LV systolic dysfunction,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 -Atrial tachycardia with RVR -Hyperthyroidism s/p I-131 -Obstructive uropathy from urinary tract anomaly -Acute on CKD stage III, suspect suspect cardiorenal from poor perfusion -Elevated troponin, suspect demand induced from above -CAD s/p PCI 2012, s/p CABG -Asthma -Anemia Plan: Progressive weight gain with CT A/P suggestive of anasarca and worsening renal function. Trial with inotropes/diuresis, patient willing to consider. Discussed with Dr. Chen/Dr. Cid, will follow up recs. May eventually need HD if fails to diurese. s/p right PCN tube placement 10/19 CT A/P with no obstruction currently. PCN draining freely. Limited medication options given renal dysfunction, poor EF, hyperthyroidism and reported intolerence to medications. Endocrine input appreciated. Coreg, split PTU if neededfor better tolerance. Intermittent tachycardia but HR overall improved. Decrease levemir to 15 units hs as blood sugars progressively lower, likely from worsening renal funciton. ISS, diabetic diet. ASA/Prasugrel/ on hold, resume per cardiology. Trop trended to peak. AC per cardiology. off heparin drip. Dispo hold off on d/c given worsening renal function and volume overload. Plan discussed with patient in detail,all questions answered.
--- NOTE | 2018-10-22 10:23 | PN ---
Physical Exam: SUBJECTIVE: Patient seen and examined at bedside. patient states she is feeling very weak and tired this am and cannot get out of bed; she did however state that she urinated more frequently overnight compared to the last couple of days. she is no longer having abdominal pressure. she denies any CP, shortness of breath, N/V OBJECTIVE: Vital Signs Period Temp Pulse Resp BP Sys/Shankar Pulse Ox Last 24 Hr 97.3 F-97.5 F 66-88 18-20 97-111/64-75 99 GENERAL: The patient is awake, alert, feeling weak and tired . EYES: no scleral icterus s. NECK: R sided thyromegaly, slight JVD LUNGS: decreased indicatory effort, diminished breath sounds; no rales, rhonchi or wheezing HEART: tachycardic, regular rhythm , S1, S2 without murmur, rub or gallop. ABDOMEN: distended abdomen; non-tender, +BS in all four quadrants EXTREMITIES: 2+ pulses, warm, well-perfused, 2+ pitting edema B/L. SKIN: Warm, dry, normal turgor, no rashes or lesions noted Laboratory Results - last 24 hr 10/21/18 10/21/18 10/21/18 11:25 17:04 22:17 WBC RBC Hgb Hct MCV MCH MCHC RDW Plt Count MPV PTT (Actin FS) Sodium Potassium Chloride Carbon Dioxide Anion Gap BUN Creatinine Creat Clearance w eGFR POC Glucometer 186 163 183 Random Glucose Calcium Phosphorus Magnesium Free T4 10/22/18 10/22/18 10/22/18 06:09 06:40 06:40 WBC 3.7 L RBC 4.51 Hgb 10.5 L Hct 34.1 MCV 75.6 L MCH 23.3 L MCHC 30.9 L RDW 16.0 H Plt Count 141 MPV 9.3 PTT (Actin FS) 26.5 Sodium Potassium Chloride Carbon Dioxide Anion Gap BUN Creatinine Creat Clearance w eGFR POC Glucometer 91 Random Glucose Calcium Phosphorus Magnesium Free T4 10/22/18 10/22/18 06:40 06:40 WBC RBC Hgb Hct MCV MCH MCHC RDW Plt Count MPV PTT (Actin FS) Sodium 134 L Potassium 4.5 Chloride 99 Carbon Dioxide 23 Anion Gap 11 BUN 109 H* Creatinine 4.4 H Creat Clearance w eGFR 10.13 POC Glucometer Random Glucose 85 Calcium 8.4 L Phosphorus 4.4 Magnesium 2.3 Free T4 1.56 H Active Medications Generic Name Dose Route Start Last Admin Trade Name Freq PRN Reason Stop Dose Admin Acetaminophen 500 mg 10/19/18 15:24 10/21/18 18:16 Tylenol - PO 500 mg Q6H PRN Administration PAIN Carvedilol 40 mg 10/20/18 10:26 10/22/18 09:28 Coreg Cr - PO 40 mg DAILY [facility] Administration Cholecalciferol 5,000 unit 10/17/18 10:00 10/21/18 12:29 Vitamin D3 - PO 5,000 unit DAILY [facility] Administration Clonazepam 0.5 mg 10/21/18 14:00 10/22/18 09:28 Klonopin - PO 0.5 mg QID [facility] Administration Ezetimibe 10 mg 10/17/18 10:00 10/22/18 09:29 Zetia - PO Not Given DAILY [facility] Insulin Aspart 1 vial 10/17/18 07:00 10/22/18 06:18 Novolog Vial Sliding Scale - SQ Not Given [facility] Protocol Insulin Detemir 15 units 10/22/18 09:27 Levemir Vial SQ HS [facility] Non-Formulary Medication 1 each 10/18/18 10:00 10/22/18 09:39 Fluticasone/Vilanterol [Breo Ellipta 100-25 Mcg Inh] IH 1 each DAILY [facility] Administration Propylthiouracil 100 mg 10/19/18 10:00 10/22/18 09:37 Ptu - PO 50 mg BID [facility] Administration Rosuvastatin Calcium 10 mg 10/17/18 22:00 10/21/18 21:37 Crestor - PO 10 mg HS [facility] Administration ASSESSMENT/PLAN: Patient is a 63 year old female with history of CHF, [place] s/p stents, CAD, DMII, hyperthyroidism, CKD stage V, HTN, HLD, presents with complaint of chest tightness, palpitations. Afib: -patient started on heparin drip here -Coreg 40 daily; which was decreased from 40 BID -continue tele monitoring; patient still having episodes of tachycardia; but less frequent since the increase in PTU dose Hyperthyroidism: -Free t4 downtrending: most recent is 1.56 from 2.38 on admission -started PTU 100 BID; tolerating -c/w beta isrrael therapy Caliectasis: -patient had right nephrostomy tube placed -holding home AC; currently on Heparin drip -monitor output CKD stage V: -baseline Cr 3.2; increased to 4.4 this am -nephrology saw patient; potentially might need dailysis if azotemia worsens CHF -spoke to regarding restarting the patients torsemide; -monitor daily weights -I's and O's -avoiding loops diuretics for now as it'll worsen uropathy -f/u his recs DM -decreased levemir dosing from 20 units HS to 15 units HS as patients renal function is worsening and shes is becoming slightly more hypoglycemic -ISS ACHS -BGMS ACHS CAD -holding aspirin and prasugrel in light of procedure on 10/19 HTN -c/w coreg 40 daily F/E/N -no fluids -replete electrolytes accordingly -diabetic diet PPX: heparin drip for Afib Problem List - Problems (1) A-fib Code(s): I48.91 - UNSPECIFIED ATRIAL FIBRILLATION (2) Hyperthyroidism Code(s): E05.90 - THYROTOXICOSIS, UNSP WITHOUT THYROTOXIC CRISIS OR STORM (3) Acute pulmonary edema with congestive heart failure Code(s): I50.1 - LEFT VENTRICULAR FAILURE, UNSPECIFIED Visit type - Emergency Visit Emergency Visit: Yes ED Registration Date: 10/16/18 Care time: The patient presented to the Emergency Department on the above date and was hospitalized for further evaluation of their emergent condition. - New Patient This patient is new to me today: No - Critical Care Critical Care patient: No
[2018-10-22] MEDS: FUROSEMIDE 100 MG/10 ML INJECTABLE VIAL IVPUSH SCH ×2 (11:09→14:45)
[2018-10-22] MEDS: CHOLECALCIFEROL (VITAMIN D3) 1,000 UNIT TABLET (FP) PO SCH (11:49)
[2018-10-22] MEDS: INSULIN (LEVEMIR) 100 UNITS/ML UNITS SQ SCH (21:38)
[2018-10-22] MEDS: ROSUVASTATIN CA 10 MG TABLET (FP) PO SCH (21:38)
[2018-10-23 06:40] LABS: HBsAG SCREEN Negative (Negative)
[2018-10-23 07:41] LABS: HEMOGLOBIN 10.3 GM/dL (10.7-15.3); MCH 24.7 pg (25.7-33.7); MCHC 33.3 g/dl (32.0-36.0); MEAN CELL VOLUME 74.3 fl (80-96); MEAN PLT VOLUME 9.5 fl (7.5-11.1); PLATELET COUNT 143 K/MM3 (134-434); RBC 4.17 M/mm3 (3.60-5.2); RDW 15.5 % (11.6-15.6); WHITE BLOOD COUNT 3.3 K/mm3 (4.0-10.0)
[2018-10-23 07:53] LABS: ANION GAP 13 MMOL/L (8-16); CHLORIDE 100 mmol/L (98-107); CO2 20 mmol/L (21-32); CREATININE 4.2 mg/dL (0.55-1.3); GLUCOSE,RANDOM 166 mg/dL (74-106); POTASSIUM 4.3 mmol/L (3.5-5.1); SODIUM 134 mmol/L (136-145)
--- NOTE | 2018-10-23 08:27 | PN ---
Progress Note (short form) - Note Progress Note: Renal follow up for OBI/CKD Pt seen and examined at the bedside reports feeling about the same but is making more urine weights stable no sob, cp, abd pain Vital Signs Temperature 97.2 F L 10/23/18 06:00 Pulse Rate 124 H 10/23/18 06:00 Respiratory Rate 12 10/23/18 06:00 Blood Pressure 157/93 10/23/18 06:00 O2 Sat by Pulse Oximetry (%) 100 10/22/18 22:00 Intake & Output 10/20/18 10/21/18 10/22/18 10/23/18 23:59 23:59 23:59 23:59 Intake Total 990 890 Output Total 235 110 480 400 Balance -235 880 410 -400 Weight 104.326 kg 105.233 kg 105.687 kg 105.959 kg NAD +++ edema in LE CBC, BMP 10/23/18 06:25 10/23/18 06:25 Laboratory Tests 10/23/18 10/23/18 06:25 06:25 MCV 74.3 L Calcium 8.0 L Phosphorus 4.0 Magnesium 2.0 Current Medications Acetaminophen (Tylenol -) 500 mg PO Q6H PRN PRN Reason: PAIN Last Admin: 10/21/18 18:16 Dose: 500 mg Carvedilol (Coreg Cr -) 40 mg PO DAILY [facility] Cholecalciferol (Vitamin D3 -) 5,000 unit PO DAILY [facility] Last Admin: 10/22/18 11:49 Dose: 5,000 unit Clonazepam (Klonopin -) 0.5 mg PO QID [facility] Last Admin: 10/22/18 21:37 Dose: 0.5 mg Ezetimibe (Zetia -) 10 mg PO DAILY [facility] Last Admin: 10/22/18 09:29 Dose: Not Given Insulin Aspart (Novolog Vial Sliding Scale -) 1 vial SQ [facility]; Protocol Last Admin: 10/22/18 21:38 Dose: 2 units Insulin Detemir (Levemir Vial) 15 units SQ HS [facility] Last Admin: 10/22/18 21:38 Dose: Not Given Non-Formulary Medication (Fluticasone/Vilanterol [Breo Ellipta 100-25 Mcg Inh]) 1 each IH DAILY [facility] Last Admin: 10/22/18 09:39 Dose: 1 each Propylthiouracil (Ptu -) 100 mg PO BID [facility] Last Admin: 10/22/18 21:37 Dose: 100 mg Rosuvastatin Calcium (Crestor -) 10 mg PO HS [facility] Last Admin: 10/22/18 21:38 Dose: 10 mg 63 yo F PMx DM, HTN, HLD, [place] in 2012 s/p stents, CABG, Afib, asthma, hyperthyroidism s/p STEINBERG, CKD, anemia with mult med intolerances, with CP and palpitations #OBI on CKD with unilateral obstruction #Acute on chronic CHF #Hypertension #Anemia #Hyperthyroidism Will continue Lasix 100mg IV BID for today trend weights and renal function maintain low salt diet based on response to diuretics will access need for inotropic support +/- dialysis Goyo Smith DO
[2018-10-23 08:54] LABS: BLOOD UREA NITROGEN 110 mg/dL (7-18)
[2018-10-23] MEDS ORDERED: PT OWN MED DRAWER 7, Y5N ONE ×3 (09:08→21:15)
[2018-10-23] MEDS: FUROSEMIDE 100 MG/10 ML INJECTABLE VIAL IVPUSH SCH ×2 (09:25→13:02)
[2018-10-23] MEDS: EZETIMIBE 10 MG TABLET (FP) PO SCH (09:46)
[2018-10-23] MEDS: PROPYLTHIOURACIL 50 MG TABLET (UD) PO SCH ×2 (09:46→21:30)
[2018-10-23] MEDS: CARVEDILOL PHOSPHATE CR 40 MG CAPSULE (FP) PO SCH (09:47)
[2018-10-23] MEDS: clonazePAM 0.5 MG TABLET PO SCH ×4 (09:47→21:30)
[2018-10-23] MEDS: INSULIN SLIDING SCALE (NOVOLOG) 1 VIAL SQ SCH ×4 (10:01→21:30)
--- NOTE | 2018-10-23 10:37 | PN ---
Progress Note, Physician Chief Complaint: chf History of Present Illness: reports signif incr UOP with lasix yesterday no sob, orthopnea leg swelling unchanged palpitations unchanged no cp no cigs - Current Medication List Current Medications: Active Medications Acetaminophen (Tylenol -) 500 mg PO Q6H PRN PRN Reason: PAIN Last Admin: 10/21/18 18:16 Dose: 500 mg Carvedilol (Coreg Cr -) 40 mg PO DAILY [facility] Last Admin: 10/23/18 09:47 Dose: 40 mg Cholecalciferol (Vitamin D3 -) 5,000 unit PO DAILY [facility] Last Admin: 10/22/18 11:49 Dose: 5,000 unit Clonazepam (Klonopin -) 0.5 mg PO QID [facility] Last Admin: 10/23/18 09:47 Dose: 0.5 mg Ezetimibe (Zetia -) 10 mg PO DAILY [facility] Last Admin: 10/23/18 09:46 Dose: 10 mg Furosemide (Lasix Injection -) 100 mg IVPUSH BID@0600,1400 [facility] Last Admin: 10/23/18 09:25 Dose: 100 mg Insulin Aspart (Novolog Vial Sliding Scale -) 1 vial SQ [facility]; Protocol Last Admin: 10/23/18 10:01 Dose: 2 units Insulin Detemir (Levemir Vial) 15 units SQ [facility] Last Admin: 10/22/18 21:38 Dose: Not Given Non-Formulary Medication (Fluticasone/Vilanterol [Breo Ellipta 100-25 Mcg Inh]) 1 each IH DAILY [facility] Last Admin: 10/23/18 09:48 Dose: 1 each Propylthiouracil (Ptu -) 100 mg PO BID [facility] Last Admin: 10/23/18 09:46 Dose: 100 mg Rosuvastatin Calcium (Crestor -) 10 mg PO HS [facility] Last Admin: 10/22/18 21:38 Dose: 10 mg - Objective Vital Signs: Vital Signs Temperature 97.2 F L 10/23/18 06:00 Pulse Rate 124 H 10/23/18 06:00 Respiratory Rate 12 10/23/18 06:00 Blood Pressure 157/93 10/23/18 06:00 O2 Sat by Pulse Oximetry (%) 100 10/22/18 22:00 Constitutional: Yes: No Distress, Calm Eyes: No: Sclera Icterus HENT: No: Nasal Congestion Cardiovascular: Yes: Regular Rate and Rhythm, JVD, S1, S2, Other (PMI non diplaced). No: Gallop, Murmur Respiratory: Yes: CTA Bilaterally, Diminished (bases). No: Accessory Muscle Use , Rales, Wheezes Gastrointestinal: Yes: Normal Bowel Sounds, Soft. No: Tenderness Musculoskeletal: Yes: Other (No kyphosis) Extremities: No: Cold Edema: Yes Integumentary: No: Jaundice Neurological: Yes: Alert, Oriented (x3) Psychiatric: No: Agitated Labs: CBC, BMP 10/23/18 06:25 10/23/18 06:25 INR, PTT INR 1.34 (0.83-1.09) H 10/16/18 16:54 Assessment/Plan ECG: organized atrial activity: likely PAT with APCs, no definite flutter present. no fib. LVH with repol abn unchanged vs prior CXR: clear lungs Echo 07/2018: inf wall akinetic, other phillip severely hypokinetic, LV mildly dilated, RV function moderately reduced, LV function severely reduced, moderate MR, EF 30% images reviewed: global HK EF 30-35%, RV hypo moderate Echo 12/2016: TDS. nl LV size/EF. mild LVH. grade 2 d.d., hi E/e' = high LAP. nl RV. mild LAE. mild-mod MR, mod TR. mild pHTN (46 mmHg) [facility] 2014: unchanged 70-80% distal RCA lesion. patent mLAD stent. 80-90% pLCX-- Promus KAREN CT abdomen 10/21: mod bilat effusion, mod ascites, marked subcutaneous edema c/ w anasarca. no hydronephrosis. tele: NNSR alt PAT a/p: 63 yo female hx cad/pci, hyperthyroidism with associated tachycardia, palpitations, unintentional wt loss, acute on chronic labile HTN with mult med intolerances, mildly decompensated diast chf, and new LE edema (out of proportion to the degree of CHF), p/w le edema,sob. 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 - JVD on exam, with wt up from 3 wks ago baseline and orthopnea if lies flat. however she is not sob at present, so continue holding torsemide to avoid further worsening of obstructive uropathy - 10/22: progressive volume overload (wt up 8 lbs progressively here, JVD persists, CT chest with bilat effusions). renal fxn declining precipitously over past 48 hrs (creat 4.4 today), despite good relief of urinary obstruction s /p nephrostomy tubes--likely cardiorenal syndrome. she is soon to require dialysis for volume mgmt unless she can be effectively diuresed. hopefully renal fxn will improve once volume status improves. she has not diuresed subjectively at home to torsemide 80 qd she says. try lasix 100 iv bid today-- if poor diuretic response or renal fxn worsening tomorrow, will try low dose milrinone inotropic support (if can avoid signif hypotension, uncontrolled PAT/ afib, and excessive ventricular ectopy). - 10/23: wt unchanged today. reports brisk diuresis yest. I > O yest likely inaccurate measurement. bun unchanged, creat slightly improved. rpt lasix 100 iv bid today. plan to add milrinone tomorrow if equivocal clinical response - bp/dizziness will not tolerate nitrates at present time. - bb dose limited by new hypotension/dizziness--has changed metoprolol succ to coreg CR and insists this causes her less dizziness. cont same coreg - holding hydral, NTG patch (hypotension) - not on SHAN/ARB in setting of ckd obstructive uropathy, OBI on CKD: -probably new baseline creatinine in 3-3.3 range based on recent labs trends recently bumped to 3.5 as outpt--? sec to obstruction -s/p nephrostomy tubes 10/19, creat rising sec to cardiorenal syndrome -HF optimization as above -hope to avoid dialysis hyperthyroidism, sinus tach, PAT: - TSH remains undetectable - intolerant of methimazole (elevated LFTs). intolerant of PTU (nausea). - s/p radio-I ablation - high burden of ATach with LV systolic dysfunction, now with new afib - d/w'd dr moreno: only available intervention at this time is to resume low dose PTU (pt self-discontinued it at home) - metopr high dose appeared to control PAT burden better than carvedilol, however caused hypotension/dizzy and pt changed back. she declines changing back to metoprolol. (previously intolerant of atenolol, propranolol). - no amiodarone in light of uncontrolled hyperthyroidism. no digoxin in light of very low GFR. no CCB in light of systolic dysfxn and previous intolerance ( edema) - given no fib present, and no definitive atr flutter thus far, will defer AC for now. - given low bp trend and weakness/dizziness, decr coreg CR back to 40 daily dosing (pt with longstanding HTN baseline bp 140s-160s, often higher--may not tolerate bp 100-110) - 10/22: PAT burden is much improved, ? thyroid fxn starting to improve--repeat TSH. continuce coreg CR 40 qd - will d/w EP re: ablation once renal fxn is stabilized, though doubt she is a candidate in current condition (tenuous HF status, uncontrolled hyperthyroidism) LE swelling: - started at time of hyperthyroidism, and remains out of proportion to HF findings - responded well to wraps - defer torsemide as above Elevated troponin - borderline trop similar to prior baseline values, flat trend--not c/w acs. - sec to HF/CKD labile HTN: -mult med intolerances in past -bp trending low of late sec to low EF CAD, prior NSTEMI/PCI: -holding DAPT (aspirin/effient) for perc nephrostomy tube placement 10/19 -cont home statin (max tolerated dose rosuva 20 with drug holidays), zetia -bb as bp tolerates anemia: -chronic. baseline hgb 9-10 -stable counts here
[2018-10-23] MEDS: CHOLECALCIFEROL (VITAMIN D3) 1,000 UNIT TABLET (FP) PO SCH (12:52)
--- NOTE | 2018-10-23 13:14 | PN ---
Physical Exam: SUBJECTIVE: Patient seen and examined, feels urinating a lot, no dizziness, or palpitations currently. Still fatigued and dyspneic with minimal activity. OBJECTIVE: Vital Signs Period Temp Pulse Resp BP Sys/Shankar Pulse Ox Last 24 Hr 97.2 F-98.3 F 64-124 12-18 112-168/65-93 98-100 GENERAL: The patient is awake, alert, and fully oriented, in no acute distress. HEAD: Normal with no signs of trauma. Neck; soft, supple, neck vein distension Chest: decreased breath sounds at base, overall unchanged exam Abdomen:Soft, obese, NT, unchanged distension Extremities: 3+ pedal pitting edema Laboratory Results - last 24 hr 10/22/18 10/22/18 10/22/18 06:40 17:05 17:12 WBC RBC Hgb Hct MCV MCH MCHC RDW Plt Count MPV Sodium Potassium Chloride Carbon Dioxide Anion Gap BUN Creatinine Creat Clearance w eGFR POC Glucometer 147 Random Glucose Calcium Phosphorus Magnesium Stool Occult Blood Negative Hep Bs Antigen Negative 10/22/18 10/23/18 10/23/18 21:34 06:09 06:25 WBC 3.3 L RBC 4.17 Hgb 10.3 L Hct 31.0 L MCV 74.3 L MCH 24.7 L MCHC 33.3 RDW 15.5 Plt Count 143 MPV 9.5 Sodium Potassium Chloride Carbon Dioxide Anion Gap BUN Creatinine Creat Clearance w eGFR POC Glucometer 197 173 Random Glucose Calcium Phosphorus Magnesium Stool Occult Blood Hep Bs Antigen 10/23/18 06:25 WBC RBC Hgb Hct MCV MCH MCHC RDW Plt Count MPV Sodium 134 L Potassium 4.3 Chloride 100 Carbon Dioxide 20 L Anion Gap 13 BUN 110 H* Creatinine 4.2 H Creat Clearance w eGFR 10.69 POC Glucometer Random Glucose 166 H Calcium 8.0 L Phosphorus 4.0 Magnesium 2.0 Stool Occult Blood Hep Bs Antigen Active Medications Generic Name Dose Route Start Last Admin Trade Name Freq PRN Reason Stop Dose Admin Acetaminophen 500 mg 10/19/18 15:24 10/21/18 18:16 Tylenol - PO 500 mg Q6H PRN Administration PAIN Carvedilol 40 mg 10/23/18 10:00 10/23/18 09:47 Coreg Cr - PO 40 mg DAILY [facility] Administration Cholecalciferol 5,000 unit 10/17/18 10:00 10/23/18 12:52 Vitamin D3 - PO 5,000 unit DAILY [facility] Administration Clonazepam 0.5 mg 10/21/18 14:00 10/23/18 09:47 Klonopin - PO 0.5 mg QID [facility] Administration Ezetimibe 10 mg 10/17/18 10:00 10/23/18 09:46 Zetia - PO 10 mg DAILY [facility] Administration Furosemide 100 mg 10/23/18 08:26 10/23/18 13:02 Lasix Injection - IVPUSH 100 mg BID@0600,1400 [facility] Administration Insulin Aspart 1 vial 10/17/18 07:00 10/23/18 12:51 Novolog Vial Sliding Scale - SQ 2 units ACHS [facility] Administration Protocol Insulin Detemir 15 units 10/22/18 22:00 10/22/18 21:38 Levemir Vial SQ Not Given HS [facility] Non-Formulary Medication 1 each 10/18/18 10:00 10/23/18 09:48 Fluticasone/Vilanterol [Breo Ellipta 100-25 Mcg Inh] IH 1 each DAILY [facility] Administration Propylthiouracil 100 mg 10/19/18 10:00 10/23/18 09:46 Ptu - PO 100 mg BID [facility] Administration Rosuvastatin Calcium 10 mg 10/17/18 22:00 10/22/18 21:38 Crestor - PO 10 mg HS [facility] Administration ASSESSMENT/PLAN: 63 yo F PMx DM, HTN, HLD, [place] in 2012 s/p stents, CABG, Afib, asthma, hyperthyroidism s/p I-131, CKD, anemia with multi med intolerances, with Chest Pain and palpitations -New severe LV systolic dysfunction,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 -Atrial tachycardia with RVR -Hyperthyroidism s/p I-131 -Obstructive uropathy from urinary tract anomaly -Acute on CKD stage III, suspect suspect cardiorenal from poor perfusion -Elevated troponin, suspect demand induced from above -CAD s/p PCI 2012, s/p CABG -Asthma -Anemia Plan: Weight stable today, Cr 4.2, patient reports aggressive diuresis, ?inaccurate I/ Os, stressed with patient and nursing. Cardiology/nephrology input appreciated Lasix 100 mg IV BID for now, inotropes tomorrow if fails to respond. May eventually need HD if fails to diurese. s/p right PCN tube placement 10/19 CT A/P with no obstruction currently. PCN draining freely. Limited medication options given renal dysfunction, poor EF, hyperthyroidism and reported intolerence to medications. Endocrine input appreciated. Coreg, split PTU if neededfor better tolerance. Intermittent tachycardia but HR overall improved. Decreased levemir to 15 units hs as blood sugars progressively lower, likely from worsening renal function. ISS, diabetic diet. ASA/Prasugrel/ on hold, resume per cardiology. Trop trended to peak. AC per cardiology. off heparin drip. Dispo hold off on d/c given worsening renal function and volume overload. Plan discussed with patient and daughter at bedside in detail,all questions answered. Visit type - Emergency Visit Emergency Visit: Yes ED Registration Date: 10/16/18 Care time: The patient presented to the Emergency Department on the above date and was hospitalized for further evaluation of their emergent condition. - New Patient This patient is new to me today: No - Critical Care Critical Care patient: No - Discharge Referral Referred to [facility] Med [facility] No
[2018-10-23] MEDS: INSULIN (LEVEMIR) 100 UNITS/ML UNITS SQ SCH (21:21)
[2018-10-23] MEDS: ROSUVASTATIN CA 10 MG TABLET (FP) PO SCH (21:30)
[2018-10-24] MEDS: FUROSEMIDE 100 MG/10 ML INJECTABLE VIAL IVPUSH SCH ×2 (06:21→14:45)
[2018-10-24 06:41] LABS: BASO % 0.2 % (0-2.0); EOS % 0.9 % (0-4.5); HEMATOCRIT 34.6 % (32.4-45.2); HEMOGLOBIN 10.7 GM/dL (10.7-15.3); LYMPH % 21.8 % (8-40); MCH 23.5 pg (25.7-33.7); MEAN CELL VOLUME 75.6 fl (80-96); MEAN PLT VOLUME 8.8 fl (7.5-11.1); MONO % 11.7 % (3.8-10.2); NEUT % 65.4 % (42.8-82.8); PLATELET COUNT 137 K/MM3 (134-434); RBC 4.58 M/mm3 (3.60-5.2); RDW 15.8 % (11.6-15.6)
[2018-10-24 07:58] LABS: ALBUMIN 2.8 g/dl (3.4-5.0); ALK PHOS 133 U/L (45-117); ANION GAP 12 MMOL/L (8-16); BILIRUBIN,TOTAL 0.6 mg/dL (0.2-1); CALCIUM 8.4 mg/dL (8.5-10.1); CHLORIDE 100 mmol/L (98-107); CO2 23 mmol/L (21-32); CREATININE 4.3 mg/dL (0.55-1.3); GLUCOSE,RANDOM 160 mg/dL (74-106); MAGNESIUM 2.2 mg/dL (1.8-2.4); PHOSPHOROUS 4.3 mg/dL (2.5-4.9); POTASSIUM 4.3 mmol/L (3.5-5.1); SGOT/AST 21 U/L (15-37); SGPT/ALT 17 U/L (13-61); SODIUM 135 mmol/L (136-145); TOT PROT 6.4 g/dl (6.4-8.2)
[2018-10-24 08:06] LABS: BLOOD UREA NITROGEN 111 mg/dL (7-18)
--- NOTE | 2018-10-24 08:42 | PN ---
Progress Note, Physician Chief Complaint: chf History of Present Illness: profuse UOP to lasix yest no sob, orthopnea leg swelling same palpitations stable no cp no cigs - Current Medication List Current Medications: Active Medications Acetaminophen (Tylenol -) 500 mg PO Q6H PRN PRN Reason: PAIN Last Admin: 10/21/18 18:16 Dose: 500 mg Carvedilol (Coreg Cr -) 40 mg PO DAILY [facility] Last Admin: 10/23/18 09:47 Dose: 40 mg Cholecalciferol (Vitamin D3 -) 5,000 unit PO DAILY [facility] Last Admin: 10/23/18 12:52 Dose: 5,000 unit Clonazepam (Klonopin -) 0.5 mg PO QID [facility] Last Admin: 10/23/18 21:30 Dose: 0.5 mg Ezetimibe (Zetia -) 10 mg PO DAILY [facility] Last Admin: 10/23/18 09:46 Dose: 10 mg Furosemide (Lasix Injection -) 100 mg IVPUSH BID@0600,1400 [facility] Last Admin: 10/24/18 06:21 Dose: 100 mg Insulin Aspart (Novolog Vial Sliding Scale -) 1 vial SQ [facility]; Protocol Last Admin: 10/23/18 21:30 Dose: 2 units Insulin Detemir (Levemir Vial) 15 units SQ [facility] Last Admin: 10/23/18 21:21 Dose: Not Given Non-Formulary Medication (Fluticasone/Vilanterol [Breo Ellipta 100-25 Mcg Inh]) 1 each IH DAILY [facility] Last Admin: 10/23/18 09:48 Dose: 1 each Propylthiouracil (Ptu -) 100 mg PO BID [facility] Last Admin: 10/23/18 21:30 Dose: 100 mg Rosuvastatin Calcium (Crestor -) 10 mg PO HS [facility] Last Admin: 10/23/18 21:30 Dose: 10 mg - Objective Vital Signs: Vital Signs Temperature 97.4 F L 10/24/18 06:00 Pulse Rate 69 10/24/18 06:00 Respiratory Rate 18 10/24/18 06:00 Blood Pressure 109/54 L 10/24/18 06:00 O2 Sat by Pulse Oximetry (%) 100 10/23/18 22:00 Constitutional: Yes: No Distress, Calm Eyes: No: Sclera Icterus HENT: No: Nasal Congestion Cardiovascular: Yes: Regular Rate and Rhythm, JVD, S1, S2, Other (PMI non diplaced). No: Gallop, Murmur Respiratory: Yes: CTA Bilaterally, Diminished (bases). No: Accessory Muscle Use , Rales, Wheezes Gastrointestinal: Yes: Normal Bowel Sounds, Soft. No: Tenderness Musculoskeletal: Yes: Other (No kyphosis) Extremities: No: Cold Edema: Yes (3+ LE) Integumentary: No: Jaundice Neurological: Yes: Alert, Oriented (x3) Psychiatric: No: Agitated Labs: CBC, BMP 10/24/18 06:00 10/24/18 06:00 INR, PTT INR 1.34 (0.83-1.09) H 10/16/18 16:54 Assessment/Plan ECG: organized atrial activity: likely PAT with APCs, no definite flutter present. no fib. LVH with repol abn unchanged vs prior CXR: clear lungs Echo 07/2018: inf wall akinetic, other phillip severely hypokinetic, LV mildly dilated, RV function moderately reduced, LV function severely reduced, moderate MR, EF 30% images reviewed: global HK EF 30-35%, RV hypo moderate Echo 12/2016: TDS. nl LV size/EF. mild LVH. grade 2 d.d., hi E/e' = high LAP. nl RV. mild LAE. mild-mod MR, mod TR. mild pHTN (46 mmHg) [facility] 2014: unchanged 70-80% distal RCA lesion. patent mLAD stent. 80-90% pLCX-- Promus KAREN CT abdomen 10/21: mod bilat effusion, mod ascites, marked subcutaneous edema c/ w anasarca. no hydronephrosis. tele: NSR alt with PAT a/p: 63 yo female hx cad/pci, hyperthyroidism with associated tachycardia, palpitations, unintentional wt loss, acute on chronic labile HTN with mult med intolerances, mildly decompensated diast chf, and new LE edema (out of proportion to the degree of CHF), p/w le edema,sob. 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 - JVD on exam, with wt up from 3 wks ago baseline and orthopnea if lies flat. however she is not sob at present, so continue holding torsemide to avoid further worsening of obstructive uropathy - 10/22: progressive volume overload (wt up 8 lbs progressively here, JVD persists, CT chest with bilat effusions). renal fxn declining precipitously over past 48 hrs (creat 4.4 today), despite good relief of urinary obstruction s /p nephrostomy tubes--likely cardiorenal syndrome. she is soon to require dialysis for volume mgmt unless she can be effectively diuresed. hopefully renal fxn will improve once volume status improves. she has not diuresed subjectively at home to torsemide 80 qd she says. try lasix 100 iv bid today-- if poor diuretic response or renal fxn worsening tomorrow, will try low dose milrinone inotropic support (if can avoid signif hypotension, uncontrolled PAT/ afib, and excessive ventricular ectopy). - 10/23: wt unchanged today. reports brisk diuresis yest. I > O yest likely inaccurate measurement. bun unchanged, creat slightly improved. rpt lasix 100 iv bid today. plan to add milrinone tomorrow if equivocal clinical response -10/24: wt down. 2L UOP yest, net neg 1 L. renal fxn stable. continue lasix 100 iv bid. defer milrinone unless bun/creat worsens with diuresis (brisk diuretic response suggests she has adequate cardiac output without need for inotropic support). - bp/dizziness will not tolerate nitrates at present time. - bb dose limited by new hypotension/dizziness--has changed metoprolol succ to coreg CR and insists this causes her less dizziness. cont same coreg - holding hydral, NTG patch (hypotension) - not on SHAN/ARB in setting of ckd obstructive uropathy, OBI on CKD: -probably new baseline creatinine in 3-3.3 range based on recent labs trends recently bumped to 3.5 as outpt--? sec to obstruction -s/p nephrostomy tubes 10/19, creat rising sec to cardiorenal syndrome -HF optimization as above -hope to avoid dialysis hyperthyroidism, sinus tach, PAT: - TSH remains undetectable - intolerant of methimazole (elevated LFTs). intolerant of PTU (nausea). - s/p radio-I ablation - high burden of ATach with LV systolic dysfunction, now with new afib - d/w'd dr moreno: only available intervention at this time is to resume low dose PTU (pt self-discontinued it at home) - metopr high dose appeared to control PAT burden better than carvedilol, however caused hypotension/dizzy and pt changed back. she declines changing back to metoprolol. (previously intolerant of atenolol, propranolol). - no amiodarone in light of uncontrolled hyperthyroidism. no digoxin in light of very low GFR. no CCB in light of systolic dysfxn and previous intolerance ( edema) - given no fib present, and no definitive atr flutter thus far, will defer AC for now. - given low bp trend and weakness/dizziness, decr coreg CR back to 40 daily dosing (pt with longstanding HTN baseline bp 140s-160s, often higher--may not tolerate bp 100-110) - 10/22: PAT burden is much improved, ? thyroid fxn starting to improve--repeat TSH. continuce coreg CR 40 qd - will d/w EP re: ablation once renal fxn is stabilized, though doubt she is a candidate in current condition (tenuous HF status, uncontrolled hyperthyroidism) LE swelling: - started at time of hyperthyroidism, and remains out of proportion to HF findings - responded well to wraps - defer torsemide as above Elevated troponin - borderline trop similar to prior baseline values, flat trend--not c/w acs. - sec to HF/CKD labile HTN: -mult med intolerances in past -bp trending low of late sec to low EF CAD, prior NSTEMI/PCI: -holding DAPT (aspirin/effient) for perc nephrostomy tube placement 10/19 -cont home statin (max tolerated dose rosuva 20 with drug holidays), zetia -bb as bp tolerates anemia: -chronic. baseline hgb 9-10 -stable counts here
[2018-10-24] MEDS: INSULIN SLIDING SCALE (NOVOLOG) 1 VIAL SQ SCH ×4 (08:43→21:06)
[2018-10-24] MEDS: CHOLECALCIFEROL (VITAMIN D3) 1,000 UNIT TABLET (FP) PO SCH (10:10)
[2018-10-24] MEDS: PROPYLTHIOURACIL 50 MG TABLET (UD) PO SCH ×2 (10:10→21:09)
[2018-10-24] MEDS: clonazePAM 0.5 MG TABLET PO SCH ×4 (10:10→21:05)
[2018-10-24] MEDS: CARVEDILOL PHOSPHATE CR 40 MG CAPSULE (FP) PO SCH (10:11)
[2018-10-24] MEDS: EZETIMIBE 10 MG TABLET (FP) PO SCH ×2 (10:11→10:21)
--- NOTE | 2018-10-24 10:45 | PN ---
Progress Note (short form) - Note Progress Note: Renal follow up for OBI/CKD Pt seen and examined at the bedside awake and alert, feels weak still no overt sob at rest making urine legs remain swollen Vital Signs Temperature 97.6 F 10/24/18 10:20 Pulse Rate 123 H 10/24/18 10:20 Respiratory Rate 18 10/24/18 10:20 Blood Pressure 129/76 10/24/18 10:20 O2 Sat by Pulse Oximetry (%) 100 10/23/18 22:00 Intake & Output 10/21/18 10/22/18 10/23/18 10/24/18 23:59 23:59 23:59 23:59 Intake Total 990 890 950 350 Output Total 044 463 6760 1050 Balance 880 410 -1090 -700 Weight 105.233 kg 105.687 kg 105.959 kg 105.143 kg NAD awake and alert RRR DeC BS +++ edema in Le CBC, BMP 10/24/18 06:00 10/24/18 06:00 Current Medications Acetaminophen (Tylenol -) 500 mg PO Q6H PRN PRN Reason: PAIN Last Admin: 10/21/18 18:16 Dose: 500 mg Carvedilol (Coreg Cr -) 40 mg PO DAILY [facility] Last Admin: 10/24/18 10:11 Dose: 40 mg Cholecalciferol (Vitamin D3 -) 5,000 unit PO DAILY [facility] Last Admin: 10/24/18 10:10 Dose: 5,000 unit Clonazepam (Klonopin -) 0.5 mg PO QID [facility] Last Admin: 10/24/18 10:10 Dose: 0.5 mg Ezetimibe (Zetia -) 10 mg PO DAILY [facility] Last Admin: 10/24/18 10:21 Dose: Not Given Furosemide (Lasix Injection -) 100 mg IVPUSH BID@0600,1400 [facility] Last Admin: 10/24/18 06:21 Dose: 100 mg Insulin Aspart (Novolog Vial Sliding Scale -) 1 vial SQ [facility]; Protocol Last Admin: 10/24/18 08:43 Dose: 2 units Insulin Detemir (Levemir Vial) 15 units SQ HS [facility] Last Admin: 10/23/18 21:21 Dose: Not Given Non-Formulary Medication (Fluticasone/Vilanterol [Breo Ellipta 100-25 Mcg Inh]) 1 each DAILY [facility] Last Admin: 10/24/18 10:11 Dose: 1 each Propylthiouracil (Ptu -) 100 mg PO BID [facility] Last Admin: 10/24/18 10:10 Dose: 100 mg Rosuvastatin Calcium (Crestor -) 10 mg PO HS [facility] Last Admin: 10/23/18 21:30 Dose: 10 mg 63 yo F PMx DM, HTN, HLD, [place] in 2012 s/p stents, CABG, Afib, asthma, hyperthyroidism s/p STEINBERG, CKD, anemia with mult med intolerances, with CP and palpitations #OBI on CKD with unilateral obstruction #Acute on chronic CHF #Hypertension #Anemia #Hyperthyroidism Renal function without significant improvement despite IV diuretics and pt remains grossly volume overloaded I advised her that HVAC TECH would be her best option at this time as she she has low eGFR and suboptimal responsive to high dose loop diuretics unlikely that thiazide diuretics would be beneficial given low eGFR risks and benefits of dialysis explained to the patient in detail but pt is not willing to consent to dialysis at this time and wants more time to think about it. Discussed status with daughter as well. Cardiology following continue Lasix for now will discuss case with cardiology and medicine Goyo Smith DO
--- NOTE | 2018-10-24 12:01 | PN ---
Teaching Attending Note Name of Resident: Charmaine Banda ATTENDING PHYSICIAN STATEMENT I saw and evaluated the patient. I reviewed the resident's note and discussed the case with the resident. I agree with the resident's findings and plan as documented with exceptions below. SUBJECTIVE: Patient seen and examined. still feels weak with activity. Denies any chest pain , dizziness, palpitations or dyspnea currently. Urinating currently. OBJECTIVE: Vital Signs Period Temp Pulse Resp BP Sys/Shankar Pulse Ox Last 24 Hr 97.2 F-97.6 F 65-123 - 108-129/54-76 100 Intake & Output 10/21/18 10/22/18 10/23/18 10/24/18 23:59 23:59 23:59 23:59 Intake Total 990 890 950 350 Output Total 090 623 3015 1050 Balance 880 410 -1090 -700 Weight 232 lb 233 lb 233 lb 9.6 oz 231 lb 12.8 oz General: sitting in bed in no acute distress Chest: improved air entry at base, few basilar rales Abdomen:Soft, overall unchanged distension, NT throughout, positive bowel sounds Extremities: minimal improvement in LE pitting edema, overall unchanged. Neck: Neck vein distension, positive JVD Active Medications Acetaminophen (Tylenol -) 500 mg PO Q6H PRN PRN Reason: PAIN Last Admin: 10/21/18 18:16 Dose: 500 mg Carvedilol (Coreg Cr -) 40 mg PO DAILY [facility] Last Admin: 10/24/18 10:11 Dose: 40 mg Cholecalciferol (Vitamin D3 -) 5,000 unit PO DAILY [facility] Last Admin: 10/24/18 10:10 Dose: 5,000 unit Clonazepam (Klonopin -) 0.5 mg PO QID [facility] Last Admin: 10/24/18 10:10 Dose: 0.5 mg Ezetimibe (Zetia -) 10 mg PO DAILY [facility] Last Admin: 10/24/18 10:21 Dose: Not Given Furosemide (Lasix Injection -) 100 mg IVPUSH BID@0600,1400 [facility] Last Admin: 10/24/18 06:21 Dose: 100 mg Insulin Aspart (Novolog Vial Sliding Scale -) 1 vial SQ [facility]; Protocol Last Admin: 10/24/18 08:43 Dose: 2 units Insulin Detemir (Levemir Vial) 15 units SQ HS [facility] Last Admin: 10/23/18 21:21 Dose: Not Given Non-Formulary Medication (Fluticasone/Vilanterol [Breo Ellipta 100-25 Mcg Inh]) 1 each IH DAILY [facility] Last Admin: 10/24/18 10:11 Dose: 1 each Propylthiouracil (Ptu -) 100 mg PO BID [facility] Last Admin: 10/24/18 10:10 Dose: 100 mg Rosuvastatin Calcium (Crestor -) 10 mg PO HS [facility] Last Admin: 10/23/18 21:30 Dose: 10 mg Laboratory Results - last 24 hr 10/23/18 10/23/18 10/23/18 12:49 16:44 21:18 WBC RBC Hgb Hct MCV MCH MCHC RDW Plt Count MPV Absolute Neuts (auto) Neutrophils % Lymphocytes % Monocytes % Eosinophils % Basophils % Nucleated RBC % Sodium Potassium Chloride Carbon Dioxide Anion Gap BUN Creatinine Creat Clearance w eGFR POC Glucometer 167 162 194 Random Glucose Calcium Phosphorus Magnesium Total Bilirubin AST ALT Alkaline Phosphatase Total Protein Albumin TSH 10/24/18 10/24/18 10/24/18 05:58 06:00 06:00 WBC 4.0 RBC 4.58 Hgb 10.7 Hct 34.6 MCV 75.6 L MCH 23.5 L MCHC 31.0 L RDW 15.8 H Plt Count 137 MPV 8.8 Absolute Neuts (auto) 2.6 Neutrophils % 65.4 Lymphocytes % 21.8 Monocytes % 11.7 H Eosinophils % 0.9 D Basophils % 0.2 Nucleated RBC % 0 Sodium 135 L Potassium 4.3 Chloride 100 Carbon Dioxide 23 Anion Gap 12 BUN 111 H* Creatinine 4.3 H Creat Clearance w eGFR 10.40 POC Glucometer 152 Random Glucose 160 H Calcium 8.4 L Phosphorus 4.3 Magnesium 2.2 Total Bilirubin 0.6 AST 21 ALT 17 Alkaline Phosphatase 133 H Total Protein 6.4 Albumin 2.8 L TSH < 0.01 L Microbiology 10/19/18 11:24 Urine - Urine Nephrostomy Tube Right Urine Culture - Final NO GROWTH OBTAINED 10/16/18 16:57 Urine - Urine Clean Catch Urine Culture - Final NO GROWTH OBTAINED ASSESSMENT AND PLAN: 63 yo F PMx DM, HTN, HLD, [place] in 2013 s/p stents, CABG, Afib, asthma, hyperthyroidism s/p I-131, CKD, anemia with multi med intolerances, with Chest Pain and palpitations -New severe LV systolic dysfunction,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 -Atrial tachycardia with RVR -Hyperthyroidism s/p I-131 -Obstructive uropathy from urinary tract anomaly -Acute on CKD stage III, suspect suspect cardiorenal from poor perfusion -Elevated troponin, suspect demand induced from above -CAD s/p PCI 2012, s/p CABG -Asthma -Anemia Plan: Urine output improved with about 2 lb weight loss. However renal function worse today. Discussed with Dr. Chen, plan to continue lasix 100 mg IV BID for now, no inotropes. Discussed with Dr. Cid, plan for HD, and possible vascular surgery consult for HD access this week. Strict I/Os. s/p right PCN tube placement 10/19 CT A/P with no obstruction currently. PCN draining freely. Limited medication options given renal dysfunction, poor EF, hyperthyroidism and reported intolerence to medications. Endocrine input appreciated. Coreg, split PTU if neededfor better tolerance. Still with intermittent tachycardia Decreased levemir to 15 units hs as blood sugars progressively lower, likely from worsening renal function. ISS, diabetic diet. ASA/Prasugrel/ on hold, resume per cardiology. Trop trended to peak. AC per cardiology. off heparin drip. Dispo hold off on d/c given worsening renal function and volume overload now with plans for inpatient HD. Plan discussed with patient in detail,all questions answered.
--- NOTE | 2018-10-24 13:10 | PN ---
Physical Exam: SUBJECTIVE: Patient seen and examined at bedside. patient urinated a lot overnight, states she is not having trouble breathing however she states that she feels very weak still. she is no longer having abdominal pain- she christina CP/ SOB/N/V fevers or chills OBJECTIVE: Vital Signs Period Temp Pulse Resp BP Sys/Shankar Pulse Ox Last 24 Hr 97.2 F-97.6 F 65-123 18-18 108-129/54-76 100 GENERAL: The patient is awake, alert, and fully oriented, in no acute distress. EYES: no scleral icterus NECK: +JVD. LUNGS: diminished breath sounds B/L. HEART: Regular rate and rhythm, S1, S2 without murmur, rub or gallop. ABDOMEN: distended, soft; non-tender, +BS EXTREMITIES: 2+ pulses, warm, well-perfused, 3+edema B/L SKIN: Warm, dry, normal turgor, no rashes or lesions noted Laboratory Results - last 24 hr 10/23/18 10/23/18 10/23/18 12:49 16:44 21:18 WBC RBC Hgb Hct MCV MCH MCHC RDW Plt Count MPV Absolute Neuts (auto) Neutrophils % Lymphocytes % Monocytes % Eosinophils % Basophils % Nucleated RBC % Sodium Potassium Chloride Carbon Dioxide Anion Gap BUN Creatinine Creat Clearance w eGFR POC Glucometer 167 162 194 Random Glucose Calcium Phosphorus Magnesium Total Bilirubin AST ALT Alkaline Phosphatase Total Protein Albumin TSH 10/24/18 10/24/18 10/24/18 05:58 06:00 06:00 WBC 4.0 RBC 4.58 Hgb 10.7 Hct 34.6 MCV 75.6 L MCH 23.5 L MCHC 31.0 L RDW 15.8 H Plt Count 137 MPV 8.8 Absolute Neuts (auto) 2.6 Neutrophils % 65.4 Lymphocytes % 21.8 Monocytes % 11.7 H Eosinophils % 0.9 D Basophils % 0.2 Nucleated RBC % 0 Sodium 135 L Potassium 4.3 Chloride 100 Carbon Dioxide 23 Anion Gap 12 BUN 111 H* Creatinine 4.3 H Creat Clearance w eGFR 10.40 POC Glucometer 152 Random Glucose 160 H Calcium 8.4 L Phosphorus 4.3 Magnesium 2.2 Total Bilirubin 0.6 AST 21 ALT 17 Alkaline Phosphatase 133 H Total Protein 6.4 Albumin 2.8 L TSH < 0.01 L Active Medications Generic Name Dose Route Start Last Admin Trade Name Freq PRN Reason Stop Dose Admin Acetaminophen 500 mg 10/19/18 15:24 10/21/18 18:16 Tylenol - PO 500 mg Q6H PRN Administration PAIN Carvedilol 40 mg 10/23/18 10:00 10/24/18 10:11 Coreg Cr - PO 40 mg DAILY [facility] Administration Cholecalciferol 5,000 unit 10/17/18 10:00 10/24/18 10:10 Vitamin D3 - PO 5,000 unit DAILY [facility] Administration Clonazepam 0.5 mg 10/21/18 14:00 10/24/18 10:10 Klonopin - PO 0.5 mg QID [facility] Administration Ezetimibe 10 mg 10/17/18 10:00 10/24/18 10:21 Zetia - PO Not Given DAILY [facility] Furosemide 100 mg 10/23/18 08:26 10/24/18 06:21 Lasix Injection - IVPUSH 100 mg BID@0600,1400 [facility] Administration Insulin Aspart 1 vial 10/17/18 07:00 10/24/18 08:43 Novolog Vial Sliding Scale - SQ 2 units ACHS [facility] Administration Protocol Insulin Detemir 15 units 10/22/18 22:00 10/23/18 21:21 Levemir Vial SQ Not Given HS [facility] Non-Formulary Medication 1 each 10/18/18 10:00 10/24/18 10:11 Fluticasone/Vilanterol [Breo Ellipta 100-25 Mcg Inh] IH 1 each DAILY [facility] Administration Propylthiouracil 100 mg 10/19/18 10:00 10/24/18 10:10 Ptu - PO 100 mg BID [facility] Administration Rosuvastatin Calcium 10 mg 10/17/18 22:00 10/23/18 21:30 Crestor - PO 10 mg HS [facility] Administration ASSESSMENT/PLAN: Patient is a 63 year old female with history of CHF, [place] s/p stents, CAD, DMII, hyperthyroidism, CKD stage V, HTN, HLD, presents with complaint of chest tightness, palpitations. Afib: -patient started on heparin drip here -Coreg 40 daily; which was decreased from 40 BID -continue tele monitoring; patient still having episodes of tachycardia; but less frequent since the increase in PTU dose Hyperthyroidism: -Free t4 downtrending: most recent is 1.56 from 2.38 on admission -started PTU 100 BID; tolerating -c/w beta isrrael therapy Caliectasis: -patient had right nephrostomy tube placed -holding home AC; currently on Heparin drip -monitor output CKD stage V: -baseline Cr 3.2; increased to 4.4 this am -nephrology saw patient will most likely be getting dialysis tomorrow CHF; -monitor daily weights -I's and O's -on IV lasix 100 BID most likely getting dialysis -f/u his recs DM -decreased levemir dosing from 20 units HS to 15 units HS as patients renal function is worsening and shes is becoming slightly more hypoglycemic -ISS ACHS -BGMS ACHS CAD -holding aspirin and prasugrel in light of procedure on 10/19 HTN -c/w coreg 40 daily F/E/N -no fluids -replete electrolytes accordingly -diabetic diet PPX: heparin drip for Afib Problem List - Problems (1) A-fib Code(s): I48.91 - UNSPECIFIED ATRIAL FIBRILLATION (2) Hyperthyroidism Code(s): E05.90 - THYROTOXICOSIS, UNSP WITHOUT THYROTOXIC CRISIS OR STORM (3) Acute pulmonary edema with congestive heart failure Code(s): I50.1 - LEFT VENTRICULAR FAILURE, UNSPECIFIED Visit type - Emergency Visit Emergency Visit: Yes ED Registration Date: 10/16/18 Care time: The patient presented to the Emergency Department on the above date and was hospitalized for further evaluation of their emergent condition. - New Patient This patient is new to me today: No - Critical Care Critical Care patient: No
[2018-10-24] MEDS ORDERED: PT OWN MED DRAWER 7, Y5N ONE ×2 (14:31→21:05)
[2018-10-24] MEDS: INSULIN (LEVEMIR) 100 UNITS/ML UNITS SQ SCH (21:06)
[2018-10-24] MEDS: ROSUVASTATIN CA 10 MG TABLET (FP) PO SCH (21:09)
--- NOTE | 2018-10-25 00:28 | PN ---
Progress Note (short form) - Note Progress Note: short of breath easily,[place],chf,hyperthyroidism improved on ptu and tolerating dose well Abnormal Lab Results 10/24/18 10/24/18 06:00 06:00 MCV 75.6 L MCH 23.5 L MCHC 31.0 L RDW 15.8 H Monocytes % 11.7 H Sodium 135 L BUN 111 H* Creatinine 4.3 H Random Glucose 160 H Calcium 8.4 L Alkaline Phosphatase 133 H Albumin 2.8 L TSH < 0.01 L Laboratory Results - last 24 hr 10/24/18 10/24/18 10/24/18 05:58 06:00 06:00 WBC 4.0 RBC 4.58 Hgb 10.7 Hct 34.6 MCV 75.6 L MCH 23.5 L MCHC 31.0 L RDW 15.8 H Plt Count 137 MPV 8.8 Absolute Neuts (auto) 2.6 Neutrophils % 65.4 Lymphocytes % 21.8 Monocytes % 11.7 H Eosinophils % 0.9 D Basophils % 0.2 Nucleated RBC % 0 Sodium 135 L Potassium 4.3 Chloride 100 Carbon Dioxide 23 Anion Gap 12 BUN 111 H* Creatinine 4.3 H Creat Clearance w eGFR 10.40 POC Glucometer 152 Random Glucose 160 H Calcium 8.4 L Phosphorus 4.3 Magnesium 2.2 Total Bilirubin 0.6 AST 21 ALT 17 Alkaline Phosphatase 133 H Total Protein 6.4 Albumin 2.8 L TSH < 0.01 L 10/24/18 10/24/18 17:30 21:02 WBC RBC Hgb Hct MCV MCH MCHC RDW Plt Count MPV Absolute Neuts (auto) Neutrophils % Lymphocytes % Monocytes % Eosinophils % Basophils % Nucleated RBC % Sodium Potassium Chloride Carbon Dioxide Anion Gap BUN Creatinine Creat Clearance w eGFR POC Glucometer 191 140 Random Glucose Calcium Phosphorus Magnesium Total Bilirubin AST ALT Alkaline Phosphatase Total Protein Albumin TSH Laboratory Tests 10/22/18 06:40 Free T4 1.56 H Current Active Problems A-fib (Acute) Acute on chronic heart failure (Acute) Hyperthyroidism (Acute) plan: continue ptu 100mg bid will need close monitoring of tft as they may drop in next few weeks Problem List - Problems (1) A-fib Code(s): I48.91 - UNSPECIFIED ATRIAL FIBRILLATION (2) Acute on chronic heart failure Code(s): I50.9 - HEART FAILURE, UNSPECIFIED Qualifiers: (3) Hyperthyroidism Code(s): E05.90 - THYROTOXICOSIS, UNSP WITHOUT THYROTOXIC CRISIS OR STORM (4) Acute CHF Code(s): I50.9 - HEART FAILURE, UNSPECIFIED Qualifiers: Heart failure type: systolic Qualified Code(s): I50.21 - Acute systolic ( congestive) heart failure (5) Acute exacerbation of asthma with allergic rhinitis Code(s): J45.901 - UNSPECIFIED ASTHMA WITH (ACUTE) EXACERBATION (6) Acute on chronic kidney failure Code(s): N17.9 - ACUTE KIDNEY FAILURE, UNSPECIFIED; N18.9 - CHRONIC KIDNEY DISEASE, UNSPECIFIED (7) Acute pulmonary edema with congestive heart failure Code(s): I50.1 - LEFT VENTRICULAR FAILURE, UNSPECIFIED
[2018-10-25] MEDS: FUROSEMIDE 100 MG/10 ML INJECTABLE VIAL IVPUSH SCH ×2 (06:35→14:17)
[2018-10-25 07:05] LABS: HEMATOCRIT 31.2 % (32.4-45.2); HEMOGLOBIN 9.7 GM/dL (10.7-15.3); MCH 23.2 pg (25.7-33.7); MCHC 30.9 g/dl (32.0-36.0); MEAN CELL VOLUME 74.9 fl (80-96); MEAN PLT VOLUME 8.7 fl (7.5-11.1); PLATELET COUNT 138 K/MM3 (134-434); RBC 4.16 M/mm3 (3.60-5.2); RDW 15.8 % (11.6-15.6); WHITE BLOOD COUNT 3.5 K/mm3 (4.0-10.0)
[2018-10-25 07:32] LABS: ANION GAP 10 MMOL/L (8-16); CALCIUM 7.9 mg/dL (8.5-10.1); CHLORIDE 101 mmol/L (98-107); CO2 24 mmol/L (21-32); GLUCOSE,RANDOM 152 mg/dL (74-106); MAGNESIUM 1.9 mg/dL (1.8-2.4); POTASSIUM 3.7 mmol/L (3.5-5.1); SODIUM 136 mmol/L (136-145)
[2018-10-25 07:38] LABS: BLOOD UREA NITROGEN 106 mg/dL (7-18)
[2018-10-25] MEDS: INSULIN SLIDING SCALE (NOVOLOG) 1 VIAL SQ SCH ×4 (08:38→22:09)
--- NOTE | 2018-10-25 10:29 | PN ---
Progress Note (short form) - Note Progress Note: Chief Complaint: chf History of Present Illness: stable edema. SOB if getting up to bathroom, stable. no cp, palps, dizzy, lightheadedness no cigs Current Medications Acetaminophen (Tylenol -) 500 mg PO Q6H PRN PRN Reason: PAIN Last Admin: 10/21/18 18:16 Dose: 500 mg Carvedilol (Coreg Cr -) 40 mg PO DAILY [facility] Last Admin: 10/24/18 10:11 Dose: 40 mg Cholecalciferol (Vitamin D3 -) 5,000 unit PO DAILY [facility] Last Admin: 10/24/18 10:10 Dose: 5,000 unit Clonazepam (Klonopin -) 0.5 mg PO QID [facility] Last Admin: 10/24/18 21:05 Dose: Not Given Ezetimibe (Zetia -) 10 mg PO DAILY [facility] Last Admin: 10/24/18 10:21 Dose: Not Given Furosemide (Lasix Injection -) 100 mg IVPUSH BID@0600,1400 [facility] Last Admin: 10/25/18 06:35 Dose: 100 mg Insulin Aspart (Novolog Vial Sliding Scale -) 1 vial SQ [facility]; Protocol Last Admin: 10/25/18 08:38 Dose: 2 units Insulin Detemir (Levemir Vial) 15 units SQ [facility] Last Admin: 10/24/18 21:06 Dose: Not Given Non-Formulary Medication (Fluticasone/Vilanterol [Breo Ellipta 100-25 Mcg Inh]) 1 each IH DAILY [facility] Last Admin: 10/24/18 10:11 Dose: 1 each Propylthiouracil (Ptu -) 100 mg PO BID [facility] Last Admin: 10/24/18 21:09 Dose: 100 mg Rosuvastatin Calcium (Crestor -) 10 mg PO HS [facility] Last Admin: 10/24/18 21:09 Dose: 10 mg - Objective Vital Signs Period Temp Pulse Resp BP Sys/Shankar Pulse Ox Last 24 Hr 97.7 F-98.1 F 121-127 18-18 117-134/74-81 98 Constitutional: Yes: No Distress, Calm Eyes: No: Sclera Icterus HENT: No: Nasal Congestion Cardiovascular: Yes: Regular Rate and Rhythm, JVD, S1, S2, Other (PMI non diplaced). No: Gallop, Murmur Respiratory: Yes: CTA Bilaterally, Diminished (bases). No: Accessory Muscle Use , Rales, Wheezes Gastrointestinal: Yes: Normal Bowel Sounds, Soft. No: Tenderness Musculoskeletal: Yes: Other (No kyphosis) Extremities: No: Cold Edema: Yes (3+ LE) Integumentary: No: Jaundice Neurological: Yes: Alert, Oriented (x3) Psychiatric: No: Agitated Assessment/Plan ECG: organized atrial activity: likely PAT with APCs, no definite flutter present. no fib. LVH with repol abn unchanged vs prior CXR: clear lungs Echo 07/2018: inf wall akinetic, other phillip severely hypokinetic, LV mildly dilated, RV function moderately reduced, LV function severely reduced, moderate MR, EF 30% images reviewed: global HK EF 30-35%, RV hypo moderate Echo 12/2016: TDS. nl LV size/EF. mild LVH. grade 2 d.d., hi E/e' = high LAP. nl RV. mild LAE. mild-mod MR, mod TR. mild pHTN (46 mmHg) [facility] 2014: unchanged 70-80% distal RCA lesion. patent mLAD stent. 80-90% pLCX-- Prom[facility] KAREN CT abdomen 10/21: mod bilat effusion, mod ascites, marked subcutaneous edema c/ w anasarca. no hydronephrosis. tele: NSR alt with PAT a/p: 63 yo female hx cad/pci, hyperthyroidism with associated tachycardia, palpitations, unintentional wt loss, acute on chronic labile HTN with mult med intolerances, mildly decompensated diast chf, and new LE edema (out of proportion to the degree of CHF), p/w le edema,sob. 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 - JVD on exam, with wt up from 3 wks ago baseline and orthopnea if lies flat. however she is not sob at present, so continue holding torsemide to avoid further worsening of obstructive uropathy - 10/22: progressive volume overload (wt up 8 lbs progressively here, JVD persists, CT chest with bilat effusions). renal fxn declining precipitously over past 48 hrs (creat 4.4 today), despite good relief of urinary obstruction s /p nephrostomy tubes--likely cardiorenal syndrome. she is soon to require dialysis for volume mgmt unless she can be effectively diuresed. hopefully renal fxn will improve once volume status improves. she has not diuresed subjectively at home to torsemide 80 qd she says. try lasix 100 iv bid today-- if poor diuretic response or renal fxn worsening tomorrow, will try low dose milrinone inotropic support (if can avoid signif hypotension, uncontrolled PAT/ afib, and excessive ventricular ectopy). - 10/23: wt unchanged today. reports brisk diuresis yest. I > O yest likely inaccurate measurement. bun unchanged, creat slightly improved. rpt lasix 100 iv bid today. plan to add milrinone if equivocal clinical response -10/24-: wt continues to decrease, renal fxn stable. continue lasix 100 iv bid. defer milrinone unless bun/creat worsens with diuresis (brisk diuretic response suggests she has adequate cardiac output without need for inotropic support). - bp/dizziness will not tolerate nitrates at present time. - bb dose limited by new hypotension/dizziness--has changed metoprolol succ to coreg CR and insists this causes her less dizziness. cont same coreg - holding hydral, NTG patch (hypotension) - not on SHAN/ARB in setting of ckd obstructive uropathy, OBI on CKD: -probably new baseline creatinine in 3-3.3 range based on recent labs trends recently bumped to 3.5 as outpt--? sec to obstruction -s/p nephrostomy tubes 10/19, creat rising sec to cardiorenal syndrome -HF optimization as above -hope to avoid dialysis, nephrology following hyperthyroidism, sinus tach, PAT: - intolerant of methimazole (elevated LFTs) - s/p radio-I ablation - high burden of ATach with LV systolic dysfunction, now with new afib - low dose PTU resumed, patient tolerating (pt self-discontinued it at home for nausea) - metopr high dose appeared to control PAT burden better than carvedilol, however caused hypotension/dizzy and pt changed back. she declines changing back to metoprolol. (previously intolerant of atenolol, propranolol). - no amiodarone in light of uncontrolled hyperthyroidism. no digoxin in light of very low GFR. no CCB in light of systolic dysfxn and previous intolerance ( edema) - given no fib present, and no definitive atr flutter thus far, will defer AC for now. - given low bp trend and weakness/dizziness, coreg CR was decreased to 40 daily dosing (pt with longstanding HTN baseline bp 140s-160s, often higher--may not tolerate bp 100-110) - 10/22: PAT burden is much improved, thyroid function improving. continue coreg CR 40 qd - will d/w EP re: ablation once renal fxn is stabilized, though doubt she is a candidate in current condition (tenuous HF status, uncontrolled hyperthyroidism) LE swelling: - started at time of hyperthyroidism, and remains out of proportion to HF findings - responded well to wraps - diuresis as above Elevated troponin - borderline trop similar to prior baseline values, flat trend--not c/w acs. - sec to HF/CKD labile HTN: -mult med intolerances in past -bp stable currently CAD, prior NSTEMI/PCI: -holding DAPT (aspirin/effient) for perc nephrostomy tube placement 10/19 -cont home statin (max tolerated dose rosuva 20 with drug holidays), zetia -bb as bp tolerates anemia: -chronic. baseline hgb 9-10 -stable counts here
[2018-10-25] MEDS ORDERED: PT OWN MED DRAWER 7, Y5N ONE ×2 (10:41→22:03)
[2018-10-25] MEDS: PROPYLTHIOURACIL 50 MG TABLET (UD) PO SCH ×2 (10:47→22:13)
--- NOTE | 2018-10-25 10:47 | PN ---
Progress Note (short form) - Note Progress Note: Renal follow up for OBI/CKD Pt seen and examined at the bedside very groggy, had recieved klonapin earlier today daughter was at the bedside no overnight events Vital Signs Temperature 97.8 F 10/25/18 05:46 Pulse Rate 123 H 10/25/18 05:46 Respiratory Rate 18 10/25/18 05:46 Blood Pressure 117/81 10/25/18 05:46 O2 Sat by Pulse Oximetry (%) 98 10/24/18 21:00 Intake & Output 10/22/18 10/23/18 10/24/18 10/25/18 23:59 23:59 23:59 23:59 Intake Total 890 950 960 370 Output Total 480 2040 2650 1150 Balance 410 1090 -1251 -780 Weight 105.687 kg 105.959 kg 104.78 kg 103.963 kg Groggy NAD ++edema in LE CBC, BMP 10/25/18 06:00 10/25/18 06:00 Laboratory Tests 10/24/18 10/25/18 06:00 06:00 Calcium 8.4 L 7.9 L Phosphorus 4.3 4.0 Magnesium 2.2 1.9 Albumin 2.8 L Current Medications Acetaminophen (Tylenol -) 500 mg PO Q6H PRN PRN Reason: PAIN Last Admin: 10/21/18 18:16 Dose: 500 mg Carvedilol (Coreg Cr -) 40 mg PO DAILY [facility] Last Admin: 10/24/18 10:11 Dose: 40 mg Cholecalciferol (Vitamin D3 -) 5,000 unit PO DAILY [facility] Last Admin: 10/24/18 10:10 Dose: 5,000 unit Clonazepam (Klonopin -) 0.5 mg PO QID [facility] Last Admin: 10/24/18 21:05 Dose: Not Given Ezetimibe (Zetia -) 10 mg PO DAILY [facility] Last Admin: 10/24/18 10:21 Dose: Not Given Furosemide (Lasix Injection -) 100 mg IVPUSH BID@0600,1400 [facility] Last Admin: 10/25/18 06:35 Dose: 100 mg Insulin Aspart (Novolog Vial Sliding Scale -) 1 vial SQ ACHS [facility]; Protocol Last Admin: 10/25/18 08:38 Dose: 2 units Insulin Detemir (Levemir Vial) 15 units SQ HS [facility] Last Admin: 10/24/18 21:06 Dose: Not Given Non-Formulary Medication (Fluticasone/Vilanterol [Breo Ellipta 100-25 Mcg Inh]) 1 each IH DAILY [facility] Last Admin: 10/24/18 10:11 Dose: 1 each Propylthiouracil (Ptu -) 100 mg PO BID [facility] Last Admin: 10/24/18 21:09 Dose: 100 mg Rosuvastatin Calcium (Crestor -) 10 mg PO HS [facility] Last Admin: 10/24/18 21:09 Dose: 10 mg 63 yo F PMx DM, HTN, HLD, [place] in 2012 s/p stents, CABG, Afib, asthma, hyperthyroidism s/p STEINBERG, CKD, anemia with mult med intolerances, with CP and palpitations #OBI on CKD with unilateral obstruction #Acute on chronic CHF #Hypertension #Anemia #Hyperthyroidism Renal function stable, urine output is improved would continue IV diuretics however given her overall picture with uremic symptoms she would still warrant dialysis pt was too groggy today to discuss what she wanted to do will discuss it with the patient and family in the AM continue to trend renal function and electrolytes Goyo Smith DO
[2018-10-25] MEDS: clonazePAM 0.5 MG TABLET PO SCH ×4 (10:49→22:07)
[2018-10-25] MEDS: EZETIMIBE 10 MG TABLET (FP) PO SCH (10:53)
[2018-10-25] MEDS: CARVEDILOL PHOSPHATE CR 40 MG CAPSULE (FP) PO SCH (10:57)
[2018-10-25] MEDS: CHOLECALCIFEROL (VITAMIN D3) 1,000 UNIT TABLET (FP) PO SCH (12:18)
--- NOTE | 2018-10-25 13:53 | PN ---
Physical Exam: SUBJECTIVE: Patient seen and examined at beside no acute events overnight. patient states that she is still feeling weak and fatigued but that her breathing is better and she is not having any abdominal pain. she denies any CP/ SOB/N/V fevers or chills. OBJECTIVE: Vital Signs Period Temp Pulse Resp BP Sys/Shankar Pulse Ox Last 24 Hr 97.7 F-98.1 F 121-127 18-18 117-134/74-81 98 GENERAL: The patient is awake, alert, , in no acute distress. EYES:no scleral icterus NECK: +JVD. LUNGS: diminished breath sounds however improving HEART: Regular rate and rhythm, S1, S2 without murmur, rub or gallop. ABDOMEN: Soft, distended, +BS in all 4 quadrants. EXTREMITIES: 2+ pulses, warm, well-perfused, 3+ edema B/L. SKIN: Warm, dry, normal turgor, no rashes or lesions noted Laboratory Results - last 24 hr 10/24/18 10/24/18 10/25/18 17:30 21:02 05:09 WBC RBC Hgb Hct MCV MCH MCHC RDW Plt Count MPV Sodium Potassium Chloride Carbon Dioxide Anion Gap BUN Creatinine Creat Clearance w eGFR POC Glucometer 191 140 177 Random Glucose Calcium Phosphorus Magnesium 10/25/18 10/25/18 10/25/18 06:00 06:00 11:41 WBC 3.5 L RBC 4.16 Hgb 9.7 L Hct 31.2 L MCV 74.9 L MCH 23.2 L MCHC 30.9 L RDW 15.8 H Plt Count 138 MPV 8.7 Sodium 136 Potassium 3.7 Chloride 101 Carbon Dioxide 24 Anion Gap 10 BUN 106 H* Creatinine 4.0 H Creat Clearance w eGFR 11.31 POC Glucometer 163 Random Glucose 152 H Calcium 7.9 L Phosphorus 4.0 Magnesium 1.9 Active Medications Generic Name Dose Route Start Last Admin Trade Name Freq PRN Reason Stop Dose Admin Acetaminophen 500 mg 10/19/18 15:24 10/21/18 18:16 Tylenol - PO 500 mg Q6H PRN Administration PAIN Carvedilol 40 mg 10/23/18 10:00 10/25/18 10:57 Coreg Cr - PO 40 mg DAILY [facility] Administration Cholecalciferol 5,000 unit 10/17/18 10:00 10/25/18 12:18 Vitamin D3 - PO 5,000 unit DAILY [facility] Administration Clonazepam 0.5 mg 10/21/18 14:00 10/25/18 10:49 Klonopin - PO 0.5 mg QID [facility] Administration Ezetimibe 10 mg 10/17/18 10:00 10/25/18 10:53 Zetia - PO 10 mg DAILY [facility] Administration Furosemide 100 mg 10/23/18 08:26 10/25/18 06:35 Lasix Injection - IVPUSH 100 mg BID@0600,1400 [facility] Administration Insulin Aspart 1 vial 10/17/18 07:00 10/25/18 12:14 Novolog Vial Sliding Scale - SQ 2 units ACHS [facility] Administration Protocol Insulin Detemir 15 units 10/22/18 22:00 10/24/18 21:06 Levemir Vial SQ Not Given HS [facility] Non-Formulary Medication 1 each 10/18/18 10:00 10/25/18 10:49 Fluticasone/Vilanterol [Breo Ellipta 100-25 Mcg Inh] IH 1 each DAILY [facility] Administration Propylthiouracil 100 mg 10/19/18 10:00 10/25/18 10:47 Ptu - PO 100 mg BID [facility] Administration Rosuvastatin Calcium 10 mg 10/17/18 22:00 10/24/18 21:09 Crestor - PO 10 mg HS [facility]O Administration ASSESSMENT/PLAN: Patient is a 63 year old female with history of CHF, [place] s/p stents, CAD, DMII, hyperthyroidism, CKD stage V, HTN, HLD, presents with complaint of chest tightness, palpitations. Afib: -patient started on heparin drip here -Coreg 40 daily; which was decreased from 40 BID -continue tele monitoring; patient still having episodes of tachycardia; but less frequent since the increase in PTU dose Hyperthyroidism: -will recheck TSH and free T4 tomorrow am -on PTU 100 BID; tolerating -c/w beta isrrael therapy Caliectasis: -patient had right nephrostomy tube placed -monitor output CKD stage V: -baseline Cr 3.2; currently 4.0 this morning; slightly decreased from yesterday which was 4.4 -nephrology saw patient will most likely be getting dialysis still need to get consent from patient before getting permacath CHF; -monitor daily weights -I's and O's -on IV lasix 100 BID most likely getting dialysis -f/u his recs DM -decreased levemir dosing from 20 units HS to 15 units HS as patients renal function is worsening and shes is becoming slightly more hypoglycemic -ISS ACHS -BGMS ACHS CAD -holding aspirin and prasugrel in light of procedure on 10/19 HTN -c/w coreg 40 daily F/E/N -no fluids -replete electrolytes accordingly -diabetic diet PPX: heparin drip for Afib Problem List - Problems (1) A-fib Code(s): I48.91 - UNSPECIFIED ATRIAL FIBRILLATION (2) Hyperthyroidism Code(s): E05.90 - THYROTOXICOSIS, UNSP WITHOUT THYROTOXIC CRISIS OR STORM (3) Acute pulmonary edema with congestive heart failure Code(s): I50.1 - LEFT VENTRICULAR FAILURE, UNSPECIFIED Visit type - Emergency Visit Emergency Visit: Yes ED Registration Date: 10/16/18 Care time: The patient presented to the Emergency Department on the above date and was hospitalized for further evaluation of their emergent condition. - New Patient This patient is new to me today: No - Critical Care Critical Care patient: No
[2018-10-25] MEDS: ACETAMINOPHEN 500 MG TABLET (FP) PO PRN (14:42)
--- NOTE | 2018-10-25 15:47 | PN ---
Teaching Attending Note Name of Resident: Charmaine Banda ATTENDING PHYSICIAN STATEMENT I saw and evaluated the patient. I reviewed the resident's note and discussed the case with the resident. I agree with the resident's findings and plan as documented. SUBJECTIVE:breathing improved but not at baseline. denies CP, SOB, fever, chills , palpitations, N/V/C/D OBJECTIVE: Last Vital Signs Temp Pulse Resp BP Pulse Ox 97.6 F 121 H 18 131/85 98 10/25/18 13:47 10/25/18 13:47 10/25/18 13:47 10/25/18 13:47 10/24/18 21:00 Intake & Output 10/22/18 10/23/18 10/24/18 10/25/18 23:59 23:59 23:59 23:59 Intake Total 890 950 960 740 Output Total 480 2040 2650 1150 Balance 410 -1090 -1690 -410 Weight 233 lb 233 lb 9.6 oz 231 lb 229 lb 3.2 oz General NAD CV S1 S2 tachy Lungs decreased breath sounds bases, poor inspiratory effort ABdomen soft NT/ND Extremities 3+ pitting edema ASSESSMENT AND PLAN: 63 yo F PMx DM, HTN, HLD, [place] in 2012 s/p stents, CABG, Afib, asthma, hyperthyroidism s/p STEINBERG, CKD, anemiaca with mult med intolerances, with CP and palpitations 1. Acute on Chronic systolic CHF exacerbation- dry weight 205. on lasix 100mg IV BID. responding well to diuresis however renal function continues to worsen. cont current management. daily weights, monitor electrolytes. cardio on board. 2. Afib with RVR- multiple intolerances to medications. now in NSR. on max doses of coreg at this time. off anticoagluation as no longer in Afib and likely induced from hyperthyroid state. cont cardiac monitoring. limited on alternative treatment options. cardio on board 3. Thyrotoxicosis-s/p STEINBERG in the past. on split doses of PTU as pt not tolerating. monitor TFT. endo on board. 4. Obstructive uropathy due to nephrolithasis- s/p R nephrostomy tube on 10/19. good ouput into bag. CT imaging after procedure showing no hydro or obstructive uropathy. 5. acute on CKD-prerenal and obstructive uropathy. no improvement after tube placement and aggressive diuresis. pt remains volume overloaded. nephro d/w pt in detail and is agreeable to HD at this time. IR to place shiley catheter. likely initiate tomorrow. Nephro on board. 6. Tropinemia- due to demand. flat trend. had recent PCI and no repeat CP since then. DAPT held for nephrostomy placement will d/w cardio about re-starting at htis time. 7. DVT ppx- unclear why not on anticoagulation. will start hep sq
[2018-10-25] MEDS: ROSUVASTATIN CA 10 MG TABLET (FP) PO SCH (22:07)
[2018-10-25] MEDS: HEPARIN NA (PORCINE) 5,000 UNITS/ML 1ML VIAL SQ SCH (22:07)
[2018-10-25] MEDS: INSULIN (LEVEMIR) 100 UNITS/ML UNITS SQ SCH (22:07)
[2018-10-26] MEDS: INSULIN SLIDING SCALE (NOVOLOG) 1 VIAL SQ SCH ×4 (06:25→22:31)
[2018-10-26] MEDS: HEPARIN NA (PORCINE) 5,000 UNITS/ML 1ML VIAL SQ SCH ×3 (06:49→22:29)
[2018-10-26] MEDS: FUROSEMIDE 100 MG/10 ML INJECTABLE VIAL IVPUSH SCH ×2 (06:49→15:03)
[2018-10-26 06:53] LABS: HEMATOCRIT 32.4 % (32.4-45.2); HEMOGLOBIN 10.9 GM/dL (10.7-15.3); MCH 25.1 pg (25.7-33.7); MCHC 33.6 g/dl (32.0-36.0); MEAN CELL VOLUME 74.6 fl (80-96); MEAN PLT VOLUME 8.7 fl (7.5-11.1); PLATELET COUNT 149 K/MM3 (134-434); RBC 4.35 M/mm3 (3.60-5.2); RDW 15.7 % (11.6-15.6); WHITE BLOOD COUNT 3.8 K/mm3 (4.0-10.0)
[2018-10-26] MEDS ORDERED: PT OWN MED DRAWER 7, Y5N ONE ×2 (09:08→21:49)
[2018-10-26 09:21] LABS: ALBUMIN 2.7 g/dl (3.4-5.0); ALK PHOS 123 U/L (45-117); ANION GAP 9 MMOL/L (8-16); BILIRUBIN,TOTAL 0.9 mg/dL (0.2-1); BLOOD UREA NITROGEN 100 mg/dL (7-18); CALCIUM 8.1 mg/dL (8.5-10.1); CHLORIDE 104 mmol/L (98-107); CO2 26 mmol/L (21-32); CREATININE 3.6 mg/dL (0.55-1.3); GLUCOSE,RANDOM 84 mg/dL (74-106); MAGNESIUM 1.8 mg/dL (1.8-2.4); PHOSPHOROUS 3.5 mg/dL (2.5-4.9); POTASSIUM 3.6 mmol/L (3.5-5.1); SGOT/AST 26 U/L (15-37); SGPT/ALT 18 U/L (13-61); SODIUM 139 mmol/L (136-145)
--- NOTE | 2018-10-26 09:21 | PN ---
Physical Exam: SUBJECTIVE: Patient seen and examined at bedside- patient states she is still feeling very weak and fatigued. Her max HR overnight was 122; she put out about 2L over 24 hours and is now down to 102.6kg . she denies any CP/SOB/N/V or palpitations OBJECTIVE: Vital Signs Period Temp Pulse Resp BP Sys/Shankar Pulse Ox Last 24 Hr 97.3 F-98.4 F 79-123 16-20 115-132/71-85 96 GENERAL: The patient is awake, alert, and fully oriented, in no acute distress. EYES:no scleal icterus NECK: +JVD LUNGS: diminished breath sounds, weak inspiratory effort. HEART: Regular rate and rhythm, S1, S2 without murmur, rub or gallop. ABDOMEN: distended; +BS in all 4 quadrants non-teneder EXTREMITIES: 2+ pulses, warm, well-perfused, 3+ edema B/L. SKIN: Warm, dry, normal turgor, no rashes or lesions noted Laboratory Results - last 24 hr 10/25/18 10/25/18 10/25/18 11:41 16:20 21:04 WBC RBC Hgb Hct MCV MCH MCHC RDW Plt Count MPV POC Glucometer 163 141 216 10/26/18 10/26/18 05:44 06:00 WBC 3.8 L RBC 4.35 Hgb 10.9 Hct 32.4 MCV 74.6 L MCH 25.1 L MCHC 33.6 RDW 15.7 H Plt Count 149 MPV 8.7 POC Glucometer 110 Active Medications Generic Name Dose Route Start Last Admin Trade Name Freq PRN Reason Stop Dose Admin Acetaminophen 500 mg 10/19/18 15:24 10/25/18 14:42 Tylenol - PO 500 mg Q6H PRN Administration PAIN Carvedilol 40 mg 10/23/18 10:00 10/25/18 10:57 Coreg Cr - PO 40 mg DAILY [facility]O Administration Cholecalciferol 5,000 unit 10/17/18 10:00 10/25/18 12:18 Vitamin D3 - PO 5,000 unit DAILY [facility] Administration Clonazepam 0.5 mg 10/21/18 14:00 10/25/18 22:07 Klonopin - PO 0.5 mg QID [facility] Administration Ezetimibe 10 mg 10/17/18 10:00 10/25/18 10:53 Zetia - PO 10 mg DAILY [facility] Administration Furosemide 100 mg 10/23/18 08:26 10/26/18 06:49 Lasix Injection - IVPUSH 100 mg BID@0600,1400 [facility] Administration Heparin Sodium (Porcine) 5,000 unit 10/25/18 22:00 10/26/18 06:49 Heparin - SQ 5,000 unit TID [facility] Administration Insulin Aspart 1 vial 10/17/18 07:00 10/26/18 06:25 Novolog Vial Sliding Scale - SQ Not Given ACHS [facility] Protocol Insulin Detemir 15 units 10/22/18 22:00 10/25/18 22:07 Levemir Vial SQ 15 unit HS [facility] Administration Non-Formulary Medication 1 each 10/18/18 10:00 10/25/18 10:49 Fluticasone/Vilanterol [Breo Ellipta 100-25 Mcg Inh] IH 1 each DAILY [facility] Administration Propylthiouracil 100 mg 10/19/18 10:00 10/25/18 22:13 Ptu - PO 100 mg BID [facility] Administration Rosuvastatin Calcium 10 mg 10/17/18 22:00 10/25/18 22:07 Crestor - PO 10 mg HS [facility]O Administration ASSESSMENT/PLAN: Patient is a 63 year old female with history of CHF, [place] s/p stents, CAD, DMII, hyperthyroidism, CKD stage V, HTN, HLD, presents with complaint of chest tightness, palpitations. Afib: -patient started on heparin drip here -Coreg 40 daily; which was decreased from 40 BID -continue tele monitoring; patient still having episodes of tachycardia; but less frequent since the increase in PTU dose Hyperthyroidism: -free t4 1.07 -on PTU 100 BID; tolerating -c/w beta isrrael therapy Caliectasis: -patient had right nephrostomy tube placed -monitor output CKD stage V: -baseline Cr 3.2; currently 43.6 this morning- decreased from 4.0 yesterday -nephrology saw patient will most likely be getting dialysis still need to get consent from patient before getting permacath CHF; -monitor daily weights -I's and O's -on IV lasix 100 BID most likely getting dialysis -f/u his recs DM -decreased levemir dosing from 20 units HS to 15 units HS as patients renal function is worsening and shes is becoming slightly more hypoglycemic -ISS ACHS -BGMS ACHS CAD -holding aspirin and prasugrel in light of procedure on 10/19 HTN -c/w coreg 40 daily F/E/N -no fluids -replete electrolytes accordingly -diabetic diet PPX: heparin drip for Afib Problem List - Problems (1) A-fib Code(s): I48.91 - UNSPECIFIED ATRIAL FIBRILLATION (2) Hyperthyroidism Code(s): E05.90 - THYROTOXICOSIS, UNSP WITHOUT THYROTOXIC CRISIS OR STORM (3) Acute pulmonary edema with congestive heart failure Code(s): I50.1 - LEFT VENTRICULAR FAILURE, UNSPECIFIED Visit type - Emergency Visit Emergency Visit: Yes ED Registration Date: 10/16/18 Care time: The patient presented to the Emergency Department on the above date and was hospitalized for further evaluation of their emergent condition. - New Patient This patient is new to me today: No - Critical Care Critical Care patient: No
[2018-10-26] MEDS: CARVEDILOL PHOSPHATE CR 40 MG CAPSULE (FP) PO SCH (09:23)
[2018-10-26] MEDS: clonazePAM 0.5 MG TABLET PO SCH ×5 (09:23→22:33)
[2018-10-26] MEDS: PROPYLTHIOURACIL 50 MG TABLET (UD) PO SCH ×2 (09:24→22:29)
[2018-10-26] MEDS: EZETIMIBE 10 MG TABLET (FP) PO SCH ×2 (09:25→09:29)
--- NOTE | 2018-10-26 09:35 | PN ---
Progress Note (short form) - Note Progress Note: Chief Complaint: chf History of Present Illness: feels tired. stable SOB if getting out of bed. no cp, palps, dizzy, lightheadedness no cigs Current Medications Acetaminophen (Tylenol -) 500 mg PO Q6H PRN PRN Reason: PAIN Last Admin: 10/25/18 14:42 Dose: 500 mg Carvedilol (Coreg Cr -) 40 mg PO DAILY [facility] Last Admin: 10/26/18 09:23 Dose: 40 mg Cholecalciferol (Vitamin D3 -) 5,000 unit PO DAILY [facility] Last Admin: 10/25/18 12:18 Dose: 5,000 unit Clonazepam (Klonopin -) 0.5 mg PO QID [facility] Last Admin: 10/26/18 09:23 Dose: 0.5 mg Ezetimibe (Zetia -) 10 mg PO DAILY [facility] Last Admin: 10/26/18 09:29 Dose: Not Given Furosemide (Lasix Injection -) 100 mg IVPUSH BID@0600,1400 [facility] Last Admin: 10/26/18 06:49 Dose: 100 mg Heparin Sodium (Porcine) (Heparin -) 5,000 unit SQ TID [facility] Last Admin: 10/26/18 06:49 Dose: 5,000 unit Insulin Aspart (Novolog Vial Sliding Scale -) 1 vial SQ [facility]; Protocol Last Admin: 10/26/18 06:25 Dose: Not Given Insulin Detemir (Levemir Vial) 15 units SQ [facility] Last Admin: 10/25/18 22:07 Dose: 15 unit Non-Formulary Medication (Fluticasone/Vilanterol [Breo Ellipta 100-25 Mcg Inh]) 1 each IH DAILY [facility] Last Admin: 10/26/18 09:24 Dose: 1 each Propylthiouracil (Ptu -) 100 mg PO BID [facility] Last Admin: 10/26/18 09:24 Dose: 100 mg Rosuvastatin Calcium (Crestor -) 10 mg PO [facility] Last Admin: 10/25/18 22:07 Dose: 10 mg - Objective Vital Signs Period Temp Pulse Resp BP Sys/Shankar Pulse Ox Last 24 Hr 97.3 F-98.4 F 79-123 16-20 115-132/71-85 96 Constitutional: Yes: No Distress, Calm Eyes: No: Sclera Icterus HENT: No: Nasal Congestion Cardiovascular: Yes: Regular Rate and Rhythm, JVD, S1, S2, Other (PMI non diplaced). No: Gallop, Murmur Respiratory: Yes: CTA Bilaterally, Diminished (bases). No: Accessory Muscle Use , Rales, Wheezes Gastrointestinal: Yes: Normal Bowel Sounds, Soft. No: Tenderness Musculoskeletal: Yes: Other (No kyphosis) Extremities: No: Cold Edema: Yes (3+ LE) Integumentary: No: Jaundice Neurological: Yes: Alert, Oriented (x3) Psychiatric: No: Agitated Assessment/Plan ECG: organized atrial activity: likely PAT with APCs, no definite flutter present. no fib. LVH with repol abn unchanged vs prior CXR: clear lungs Echo 07/2018: inf wall akinetic, other phillip severely hypokinetic, LV mildly dilated, RV function moderately reduced, LV function severely reduced, moderate MR, EF 30% images reviewed: global HK EF 30-35%, RV hypo moderate Echo 12/2016: TDS. nl LV size/EF. mild LVH. grade 2 d.d., hi E/e' = high LAP. nl RV. mild LAE. mild-mod MR, mod TR. mild pHTN (46 mmHg) [facility] 2014: unchanged 70-80% distal RCA lesion. patent mLAD stent. 80-90% pLCX-- Prom[facility] KAREN CT abdomen 10/21: mod bilat effusion, mod ascites, marked subcutaneous edema c/ w anasarca. no hydronephrosis. tele: NSR alt with PAT a/p: 63 yo female hx cad/pci, hyperthyroidism with associated tachycardia, palpitations, unintentional wt loss, acute on chronic labile HTN with mult med intolerances, mildly decompensated diast chf, and new LE edema (out of proportion to the degree of CHF), p/w le edema,sob. 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 - JVD on exam, with wt up from 3 wks ago baseline and orthopnea if lies flat. however she is not sob at present, so continue holding torsemide to avoid further worsening of obstructive uropathy - 10/22: progressive volume overload (wt up 8 lbs progressively here, JVD persists, CT chest with bilat effusions). renal fxn declining precipitously over past 48 hrs (creat 4.4 today), despite good relief of urinary obstruction s /p nephrostomy tubes--likely cardiorenal syndrome. she is soon to require dialysis for volume mgmt unless she can be effectively diuresed. hopefully renal fxn will improve once volume status improves. she has not diuresed subjectively at home to torsemide 80 qd she says. try lasix 100 iv bid today-- if poor diuretic response or renal fxn worsening tomorrow, will try low dose milrinone inotropic support (if can avoid signif hypotension, uncontrolled PAT/ afib, and excessive ventricular ectopy). - 10/23: wt unchanged today. reports brisk diuresis yest. I > O yest likely inaccurate measurement. bun unchanged, creat slightly improved. rpt lasix 100 iv bid today. plan to add milrinone if equivocal clinical response -10/24-: wt continues to decrease, renal fxn stable. continue lasix 100 iv bid. defer milrinone unless bun/creat worsens with diuresis (brisk diuretic response suggests she has adequate cardiac output without need for inotropic support). - bp/dizziness will not tolerate nitrates at present time. - bb dose limited by new hypotension/dizziness--has changed metoprolol succ to coreg CR and insists this causes her less dizziness. cont same coreg - holding hydral, NTG patch (hypotension) - not on SHAN/ARB in setting of ckd obstructive uropathy, OBI on CKD: -probably new baseline creatinine in 3-3.3 range based on recent labs trends recently bumped to 3.5 as outpt--? sec to obstruction -s/p nephrostomy tubes 10/19, creat rising sec to cardiorenal syndrome -HF optimization as above -hope to avoid dialysis, nephrology following - may need HD for uremia, patient and family are considering this hyperthyroidism, sinus tach, PAT: - intolerant of methimazole (elevated LFTs) - s/p radio-I ablation - high burden of ATach with LV systolic dysfunction, now with new afib - low dose PTU resumed, patient tolerating (pt self-discontinued it at home for nausea) - metopr high dose appeared to control PAT burden better than carvedilol, however caused hypotension/dizzy and pt changed back. she declines changing back to metoprolol. (previously intolerant of atenolol, propranolol). - no amiodarone in light of uncontrolled hyperthyroidism. no digoxin in light of very low GFR. no CCB in light of systolic dysfxn and previous intolerance ( edema) - given low bp trend and weakness/dizziness, coreg CR was decreased to 40 daily dosing (pt with longstanding HTN baseline bp 140s-160s, often higher--may not tolerate bp 100-110) - 10/22: PAT burden is much improved, thyroid function improving. continue coreg CR 40 qd - will d/w EP re: ablation once renal fxn is stabilized, though doubt she is a candidate in current condition (tenuous HF status, uncontrolled hyperthyroidism) - given no fib present, and no definitive atr flutter thus far, will defer AC for now. LE swelling: - started at time of hyperthyroidism, and remains out of proportion to HF findings - responded well to wraps - diuresis as above Elevated troponin - borderline trop similar to prior baseline values, flat trend--not c/w acs. - sec to HF/CKD labile HTN: -mult med intolerances in past -bp stable currently CAD, prior NSTEMI/PCI: -holding DAPT (aspirin/effient) s/p perc nephrostomy tube placement 10/19, pink/ red urine noted, holding -cont home statin (max tolerated dose rosuva 20 with drug holidays), zetia -bb as bp tolerates anemia: -chronic. baseline hgb 9-10 -stable counts here
--- NOTE | 2018-10-26 11:22 | PN ---
Progress Note (short form) - Note Progress Note: Renal follow up for OBI/CKD Pt seen and examined at the bedside no acute complaints. feels about the same has mild sob when getting around making urine on IV lasix BID Vital Signs Temperature 97.4 F L 10/26/18 05:56 Pulse Rate 79 10/26/18 05:56 Respiratory Rate 20 10/26/18 05:56 Blood Pressure 115/72 10/26/18 05:56 O2 Sat by Pulse Oximetry (%) 96 10/25/18 21:00 Intake & Output 10/23/18 10/24/18 10/25/18 10/26/18 23:59 23:59 23:59 23:59 Intake Total 062 497 1565 440 Output Total 2040 2650 2250 Balance -1090 -1690 -1100 440 Weight 105.959 kg 104.78 kg 103.963 kg 102.693 kg NAD awake and alert Dec BS at lung bases +++ edema in LE CBC, BMP 10/26/18 06:00 10/26/18 06:00 Current Medications Acetaminophen (Tylenol -) 500 mg PO Q6H PRN PRN Reason: PAIN Last Admin: 10/25/18 14:42 Dose: 500 mg Carvedilol (Coreg Cr -) 40 mg PO DAILY [facility] Last Admin: 10/26/18 09:23 Dose: 40 mg Cholecalciferol (Vitamin D3 -) 5,000 unit PO DAILY [facility] Last Admin: 10/25/18 12:18 Dose: 5,000 unit Clonazepam (Klonopin -) 0.5 mg PO QID [facility] Last Admin: 10/26/18 09:23 Dose: 0.5 mg Ezetimibe (Zetia -) 10 mg PO DAILY [facility] Last Admin: 10/26/18 09:29 Dose: Not Given Furosemide (Lasix Injection -) 100 mg IVPUSH BID@0600,1400 [facility] Last Admin: 10/26/18 06:49 Dose: 100 mg Heparin Sodium (Porcine) (Heparin -) 5,000 unit SQ TID [facility] Last Admin: 10/26/18 06:49 Dose: 5,000 unit Insulin Aspart (Novolog Vial Sliding Scale -) 1 vial SQ [facility]; Protocol Last Admin: 10/26/18 06:25 Dose: Not Given Insulin Detemir (Levemir Vial) 15 units SQ HS [facility] Last Admin: 10/25/18 22:07 Dose: 15 unit Non-Formulary Medication (Fluticasone/Vilanterol [Breo Ellipta 100-25 Mcg Inh]) 1 each IH DAILY [facility] Last Admin: 10/26/18 09:24 Dose: 1 each Propylthiouracil (Ptu -) 100 mg PO BID [facility] Last Admin: 10/26/18 09:24 Dose: 100 mg Rosuvastatin Calcium (Crestor -) 10 mg PO HS [facility] Last Admin: 10/25/18 22:07 Dose: 10 mg 63 yo F PMx DM, HTN, HLD, [place] in 2012 s/p stents, CABG, Afib, asthma, hyperthyroidism s/p STEINBERG, CKD, anemia with mult med intolerances, with CP and palpitations #OBI on CKD with unilateral obstruction #Acute on chronic CHF #Hypertension #Anemia #Hyperthyroidism The risks and benefits of dialysis were explained to the patient, and pt is agreeable to starting dialysis for management of fluid overload and uremic symptoms will consult vascular surgery to place access and plan subsequent HD Will need outpatient dialysis placement Continue IV Lasix for now Will start KRISTA/Iron with HD for management of edema Cardiology follow up urology follow up regarding nephrostomy, will repeat US to access if hydronephrosis is still present Goyo Smith DO
[2018-10-26] MEDS: CHOLECALCIFEROL (VITAMIN D3) 1,000 UNIT TABLET (FP) PO SCH (12:46)
--- NOTE | 2018-10-26 13:22 | PN ---
Teaching Attending Note Name of Resident: Charmaine Banda ATTENDING PHYSICIAN STATEMENT I saw and evaluated the patient. I reviewed the resident's note and discussed the case with the resident. I agree with the resident's findings and plan as documented. SUBJECTIVE: remains dyspnic at rest but overall improved since arrival. denies CP, SOB, fever, chills, N/V/C/D also noted pinkish tinged fluid in nephrostomy bag OBJECTIVE: Last Vital Signs Temp Pulse Resp BP Pulse Ox 97.4 F L 79 18 115/72 96 10/26/18 05:56 10/26/18 05:56 10/26/18 10:00 10/26/18 05:56 10/26/18 10:00 Intake & Output 10/23/18 10/24/18 10/25/18 10/26/18 23:59 23:59 23:59 23:59 Intake Total 485 675 5207 440 Output Total 2040 2650 2250 700 Balance -1090 -1690 -1100 -260 Weight 233 lb 9.6 oz 231 lb 229 lb 3.2 oz 226 lb 6.4 oz General NAD CV S1 S2 RRR Lungs decreased breath sounds R base, poor inspiratory effort ABdomen soft NT/ND. nephrostomy tube has pink urine. catheter site is not bloody with no drainage or erythema or tenderness Extremities 3+ pitting edema ASSESSMENT AND PLAN: 63 yo F PMx DM, HTN, HLD, [place] in 2012 s/p stents, CABG, Afib, asthma, hyperthyroidism s/p STEINBERG, CKD, anemiaca with mult med intolerances, with CP and palpitations 1. Acute on Chronic systolic CHF exacerbation- dry weight 205. on lasix 100mg IV BID. responding well to diuresis however renal function continues to worsen. cont current management. daily weights, monitor electrolytes. cardio on board. 2. Afib with RVR- multiple intolerances to medications. now in NSR. on max doses of coreg at this time. off anticoagluation as no longer in Afib and likely induced from hyperthyroid state. cont cardiac monitoring. limited on alternative treatment options. cardio on board 3. Thyrotoxicosis-s/p STEINBERG in the past. on split doses of PTU as pt not tolerating. monitor TFT. endo on board. 4. Obstructive uropathy due to nephrolithasis- s/p R nephrostomy tube on 10/19. some pink tinged urine. may be due to tension on the bag as patient had it draped over her shoulder with tension noted. adjusted bag. Hgb is stable. hydro shown to have resolved 5. acute on CKD-prerenal and obstructive uropathy. mild improvement but remains volume overloaded. plan for shiley placement today to initiate HD. pt is agreeable. closely monitor renal function. avoid nephrotoxic agents. Nephro on board. 6. Tropinemia- due to demand. flat trend. had recent PCI and no repeat CP since then. DAPT held for nephrostomy placement will d/w cardio about re-starting at htis time. 7. DVT ppx- hep sq 8. spoke with cousin present at bedside. all questions answered. verbalized understanding and agreement with plan
--- NOTE | 2018-10-26 13:59 | CONSULT ---
Consult - History of Present Illness History of Present Illness: 63 year old woman with worsening renal function due to DM who will be starting hemodialysis on this admission. She is right handed. - Past Medical History Cardio/Vascular: Yes: AFIB, CAD, CHF, HTN, Hyperlipdemia, NM, Mitral Insufficiency, Pulmonary Hypertension Pulmonary: Yes: Sleep Apnea Renal/: Yes: Renal Failure ...: No Endocrine: Yes: Diabetes Mellitus, Hyperthyroidism - Past Surgical History Past Surgical History: Yes: Stent - Alcohol/Substance Use Hx Alcohol Use: No History of Substance Use: reports: None - Smoking History Smoking history: Never smoked Have you smoked in the past 12 months: No Aproximately how many cigarettes per day: 0 - Social History ADL: Independent History of Recent Travel: No Home Medications - Allergies Allergies/Adverse Reactions: Allergies Allergy/AdvReac Type Severity Reaction Status Date / Time Penicillins Allergy Intermediate Hives Verified 10/16/18 15:24 Iodinated Contrast- Oral and Allergy Verified 10/16/18 15:24 IV Dye [Iodinated Contrast Media - IV Dye] tiotropium AdvReac Verified 10/16/18 15:24 [From [facility] with [facility]iHaler] - Home Medications Home Medications: Ambulatory Orders Aspirin [ASA -] 81 mg PO DAILY 09/07/18 Cholecalciferol (Vitamin D3) [Vitamin D -] 5,000 unit PO DAILY 09/07/18 Clonazepam 0.5 mg PO QID 09/07/18 Ezetimibe [Zetia] 10 mg PO DAILY 09/07/18 Ferrous Gluconate [Iron] 256 mg PO DAILY 09/07/18 Fluticasone/Vilanterol [Breo Ellipta 100-25 Mcg INH] 1 each IH DAILY 09/07/18 Insulin Aspart [Novolog] 10 unit SQ ASDIR 09/07/18 Insulin Glargine,Hum.rec.anlog [Lantus] 0 unit SQ ASDIR 09/07/18 Prasugrel HCl [Effient] 10 mg PO DAILY 09/07/18 Rosuvastatin Calcium [Crestor] 10 mg PO DAILY 09/07/18 Insulin Sliding Scale [Novolog Vial Sliding Scale -] 1 vial SQ ACHS units 09/15 Carvedilol Phosphate [Coreg Cr -] 40 mg PO DAILY 10/17/18 Meclizine HCl 25 mg PO Q6H PRN 10/17/18 Metolazone 2.5 mg PO DAILY 10/17/18 Nitroglycerin Patch [Nitro-Dur] 0.2 mg TD DAILY 10/17/18 Torsemide 20 mg PO TID 10/17/18 Family Disease History - Family Disease History Family Disease History: CA: Mother (breast), Sister (breast), Daughter (colon) Physical Exam Vital Signs: Vital Signs Temperature 97.4 F L 10/26/18 05:56 Pulse Rate 79 10/26/18 05:56 Respiratory Rate 10/26/18 10:00 Blood Pressure 115/72 10/26/18 05:56 O2 Sat by Pulse Oximetry (%) 96 10/26/18 10:00 Constitutional: Yes: No Distress Eyes: Yes: WNL HENT: Yes: WNL Neck: Yes: Supple Gastrointestinal: Yes: Soft Extremities: Yes: Other (Left arm indurated vein in lateral antecubital fossa. No other veins visible. 2+ brachial pulse) Labs: CBC, BMP 10/26/18 06:00 10/26/18 06:00 Problem List - Problems (1) Acute on chronic kidney failure Assessment/Plan: Will schedule Permacath placement for 4 PM. Duplex vein mapping left arm ordered. Code(s): N17.9 - ACUTE KIDNEY FAILURE, UNSPECIFIED; N18.9 - CHRONIC KIDNEY DISEASE, UNSPECIFIED Qualifiers: Chronic kidney disease stage: stage 5, not on chronic dialysis
[2018-10-26] MEDS ORDERED: DOCUSATE SODIUM 100 MG CAPSULE (FP) PO ONE (15:30)
[2018-10-26] MEDS ORDERED: SENNOSIDES 8.6MG TABLET (FP) PO PRN (22:00)
[2018-10-26] MEDS: ROSUVASTATIN CA 10 MG TABLET (FP) PO SCH (22:29)
[2018-10-26] MEDS: INSULIN (LEVEMIR) 100 UNITS/ML UNITS SQ SCH (22:30)
[2018-10-27] MEDS ORDERED: PT OWN MED DRAWER 7, Y5N ONE ×3 (05:53→21:13)
[2018-10-27] MEDS: FUROSEMIDE 100 MG/10 ML INJECTABLE VIAL IVPUSH SCH ×2 (06:18→16:07)
[2018-10-27] MEDS: INSULIN SLIDING SCALE (NOVOLOG) 1 VIAL SQ SCH ×4 (06:19→21:18)
[2018-10-27] MEDS: HEPARIN NA (PORCINE) 5,000 UNITS/ML 1ML VIAL SQ SCH ×3 (06:19→21:16)
[2018-10-27 06:44] LABS: HEMATOCRIT 31.8 % (32.4-45.2); HEMOGLOBIN 10.6 GM/dL (10.7-15.3); MCH 24.9 pg (25.7-33.7); MCHC 33.3 g/dl (32.0-36.0); MEAN CELL VOLUME 74.8 fl (80-96); MEAN PLT VOLUME 8.4 fl (7.5-11.1); PLATELET COUNT 150 K/MM3 (134-434); RBC 4.24 M/mm3 (3.60-5.2); RDW 15.7 % (11.6-15.6); WHITE BLOOD COUNT 3.2 K/mm3 (4.0-10.0)
[2018-10-27 07:12] LABS: ANION GAP 12 MMOL/L (8-16); BLOOD UREA NITROGEN 99 mg/dL (7-18); CALCIUM 8.3 mg/dL (8.5-10.1); CHLORIDE 102 mmol/L (98-107); CO2 25 mmol/L (21-32); CREATININE 3.3 mg/dL (0.55-1.3); GLUCOSE,RANDOM 126 mg/dL (74-106); MAGNESIUM 1.7 mg/dL (1.8-2.4); PHOSPHOROUS 3.1 mg/dL (2.5-4.9); POTASSIUM 3.5 mmol/L (3.5-5.1); SODIUM 139 mmol/L (136-145)
[2018-10-27] MEDS: PROPYLTHIOURACIL 50 MG TABLET (UD) PO SCH ×2 (09:12→21:18)
[2018-10-27] MEDS: CARVEDILOL PHOSPHATE CR 40 MG CAPSULE (FP) PO SCH (09:13)
[2018-10-27] MEDS: clonazePAM 0.5 MG TABLET PO SCH ×4 (09:19→21:17)
[2018-10-27] MEDS: CHOLECALCIFEROL (VITAMIN D3) 1,000 UNIT TABLET (FP) PO SCH (09:19)
[2018-10-27] MEDS: EZETIMIBE 10 MG TABLET (FP) PO SCH (09:23)
[2018-10-27] MEDS ORDERED: DOCUSATE SODIUM 100 MG CAPSULE (FP) PO SCH (10:00)
--- NOTE | 2018-10-27 11:00 | PN ---
Progress Note (short form) - Note Progress Note: Renal follow up for OBI/CKD Pt seen and examined in recovery room pt very lethargic Vital Signs Temperature 97.6 F 10/27/18 09:02 Pulse Rate 110 H 10/27/18 09:02 Respiratory Rate 18 10/27/18 09:02 Blood Pressure 115/71 10/27/18 09:02 O2 Sat by Pulse Oximetry (%) 96 10/26/18 21:00 Intake & Output 10/24/18 10/25/18 10/26/18 10/27/18 23:59 23:59 23:59 23:59 Intake Total 960 1150 820 150 Output Total 2650 2250 2300 700 Balance -1690 -1100 -1480 -550 Weight 104.78 kg 103.963 kg 102.693 kg 101.242 kg CBC, BMP 10/27/18 06:00 10/27/18 06:00 Current Medications Acetaminophen (Tylenol -) 500 mg PO Q6H PRN PRN Reason: PAIN Last Admin: 10/25/18 14:42 Dose: 500 mg Carvedilol (Coreg Cr -) 40 mg PO DAILY [facility] Last Admin: 10/27/18 09:13 Dose: 40 mg Cholecalciferol (Vitamin D3 -) 5,000 unit PO DAILY [facility] Last Admin: 10/27/18 09:19 Dose: Not Given Clonazepam (Klonopin -) 0.5 mg PO QID [facility] Last Admin: 10/27/18 09:19 Dose: Not Given Docusate Sodium (Colace -) 100 mg PO DAILY [facility] Last Admin: 10/27/18 09:11 Dose: 100 mg Ezetimibe (Zetia -) 10 mg PO DAILY [facility] Last Admin: 10/27/18 09:23 Dose: 10 mg Furosemide (Lasix Injection -) 100 mg IVPUSH BID@0600,1400 [facility] Last Admin: 10/27/18 06:18 Dose: 100 mg Heparin Sodium (Porcine) (Heparin -) 5,000 unit SQ TID [facility] Last Admin: 10/27/18 06:19 Dose: 5,000 unit Insulin Aspart (Novolog Vial Sliding Scale -) 1 vial SQ ACHS [facility]; Protocol Last Admin: 10/27/18 06:19 Dose: Not Given Insulin Detemir (Levemir Vial) 15 units SQ HS [facility] Last Admin: 10/26/18 22:30 Dose: 15 unit Non-Formulary Medication (Fluticasone/Vilanterol [Breo Ellipta 100-25 Mcg Inh]) 1 each IH DAILY [facility] Last Admin: 10/27/18 09:14 Dose: 1 each Propylthiouracil (Ptu -) 100 mg PO BID [facility] Last Admin: 10/27/18 09:12 Dose: 100 mg Rosuvastatin Calcium (Crestor -) 10 mg PO HS [facility] Last Admin: 10/26/18 22:29 Dose: 10 mg Senna (Senna -) 2 tab PO HS PRN PRN Reason: CONSTIPATION 63 yo F PMx DM, HTN, HLD, [place] in 2012 s/p stents, CABG, Afib, asthma, hyperthyroidism s/p STEINBERG, CKD, anemia with mult med intolerances, with CP and palpitations #OBI on CKD with unilateral obstruction #Acute on chronic CHF #Hypertension #Anemia #Hyperthyroidism s/p tunneled catheter placement first dialysis planned for tomorrow Goyo Smith DO
--- NOTE | 2018-10-27 11:02 | PN ---
Progress Note (short form) - Note Progress Note: History of Present Illness: no chest pain, palps, dizzy, lightheadedness. stable orthopnea. Current Medications Generic Name Dose Route Start Last Admin Trade Name Freq PRN Reason Stop Dose Admin Acetaminophen 500 mg 10/19/18 15:24 10/25/18 14:42 Tylenol - PO 500 mg Q6H PRN Administration PAIN Carvedilol 40 mg 10/23/18 10:00 10/27/18 09:13 Coreg Cr - PO 40 mg DAILY [facility] Administration Cholecalciferol 5,000 unit 10/17/18 10:00 10/27/18 09:19 Vitamin D3 - PO Not Given DAILY [facility] Clonazepam 0.5 mg 10/21/18 14:00 10/27/18 09:19 Klonopin - PO Not Given QID [facility] Docusate Sodium 100 mg 10/27/18 10:00 10/27/18 09:11 Colace - PO 100 mg DAILY [facility] Administration Ezetimibe 10 mg 10/17/18 10:00 10/27/18 09:23 Zetia - PO 10 mg DAILY [facility] Administration Furosemide 100 mg 10/23/18 08:26 10/27/18 06:18 Lasix Injection - IVPUSH 100 mg BID@0600,1400 [facility] Administration Heparin Sodium (Porcine) 5,000 unit 10/25/18 22:00 10/27/18 06:19 Heparin - SQ 5,000 unit TID [facility] Administration Insulin Aspart 1 vial 10/17/18 07:00 10/27/18 06:19 Novolog Vial Sliding Scale - SQ Not Given ACHS [facility] Protocol Insulin Detemir 15 units 10/22/18 22:00 10/26/18 22:30 Levemir Vial SQ 15 unit HS [facility] Administration Non-Formulary Medication 1 each 10/18/18 10:00 10/27/18 09:14 Fluticasone/Vilanterol [Breo Ellipta 100-25 Mcg Inh] IH 1 each DAILY [facility] Administration Propylthiouracil 100 mg 10/19/18 10:00 10/27/18 09:12 Ptu - PO 100 mg BID [facility] Administration Rosuvastatin Calcium 10 mg 10/17/18 22:00 10/26/18 22:29 Crestor - PO 10 mg HS [facility] Administration Senna 2 tab 10/26/18 22:00 Senna - PO HS PRN CONSTIPATION Vital Signs: Vital Signs Period Temp Pulse Resp BP Sys/Shankar Pulse Ox Last 24 Hr 97.4 F-97.8 F 79-118 18-18 115-130/65-79 96 Constitutional: Yes: Well Nourished, No Distress Eyes: No: Sclera Icterus HENT: No: Nasal Congestion Respiratory: Yes: CTA Bilaterally. No: Accessory Muscle Use, Rales, Wheezes Gastrointestinal: Yes: Normal Bowel Sounds. No: Distention, Hepatomegaly, Palpable Mass, Tenderness Cardiovascular: Yes: Regular Rate and Rhythm JVD: Yes Heart Sounds: Yes: S1, S2. No: Gallop Murmur: No: Systolic Murmur, Diastolic Murmur Extremities: No: Cool, Cyanosis Edema: Yes (1+ pretib) Peripheral Pulses: 2+ Left Carotid, 2+ Right Carotid, 2+ Left Doralis Pedis, 2+ Right Dorsalis Pedis Integumentary: No: Jaundice Neurological: Yes: Alert, Oriented (x3) Psychiatric: No: Agitated CBC, BMP 10/27/18 06:00 10/27/18 06:00 Assessment/Plan ECG: organized atrial activity: likely PAT with APCs, no definite flutter present. no fib. LVH with repol abn unchanged vs prior CXR: clear lungs Echo 07/2018 inf wall akinetic, other phillip severely hypokinetic, LV mildly dilated, RV function moderately reduced, LV function severely reduced, moderate MR, EF 30% Echo 12/2016: TDS. nl LV size/EF. mild LVH. grade 2 d.d., hi E/e' = high LAP. nl RV. mild LAE. mild-mod MR, mod TR. mild pHTN (46 mmHg) [facility] 2014: unchanged 70-80% distal RCA lesion. patent mLAD stent. 80-90% pLCX-- [employer] [facility]EN tele: PAT alternating with SR. a/p: 63 yo female hx cad/pci, hyperthyroidism with associated tachycardia, palpitations, unintentional wt loss, acute on chronic labile HTN with mult med intolerances, mildly decompensated diast chf, and new LE edema (out of proportion to the degree of CHF), p/w le edema,sob. 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 - JVD on exam, with wt up from 3 wks ago baseline and orthopnea if lies flat. however she is not sob at present, so continue holding torsemide to avoid further worsening of obstructive uropathy - 10/22: progressive volume overload (wt up 8 lbs progressively here, JVD persists, CT chest with bilat effusions). renal fxn declining precipitously over past 48 hrs (creat 4.4 today), despite good relief of urinary obstruction s /p nephrostomy tubes--likely cardiorenal syndrome. she is soon to require dialysis for volume mgmt unless she can be effectively diuresed. hopefully renal fxn will improve once volume status improves. she has not diuresed subjectively at home to torsemide 80 qd she says. try lasix 100 iv bid today-- if poor diuretic response or renal fxn worsening tomorrow, will try low dose milrinone inotropic support (if can avoid signif hypotension, uncontrolled PAT/ afib, and excessive ventricular ectopy). - 10/23: wt unchanged today. reports brisk diuresis yest. I > O yest likely inaccurate measurement. bun unchanged, creat slightly improved. rpt lasix 100 iv bid today. plan to add milrinone if equivocal clinical response -10/24-: wt continues to decrease, renal fxn stable/improved. continue lasix 100 iv bid. defer milrinone unless bun/creat worsens with diuresis (brisk diuretic response suggests she has adequate cardiac output without need for inotropic support). - bp/dizziness will not tolerate nitrates at present time. - bb dose limited by new hypotension/dizziness--has changed metoprolol succ to coreg CR and insists this causes her less dizziness. cont same coreg - holding hydral, NTG patch (hypotension) - not on SHAN/ARB in setting of ckd obstructive uropathy, OBI on CKD: -probably new baseline creatinine in 3-3.3 range based on recent labs trends recently bumped to 3.5 as outpt--? sec to obstruction -s/p nephrostomy tubes 10/19, creat rising sec to cardiorenal syndrome -HF optimization as above -planned for HD for uremia, renal following hyperthyroidism, sinus tach, PAT: - intolerant of methimazole (elevated LFTs) - s/p radio-I ablation - high burden of ATach with LV systolic dysfunction, now with new afib - low dose PTU resumed, patient tolerating (pt self-discontinued it at home for nausea) - metopr high dose appeared to control PAT burden better than carvedilol, however caused hypotension/dizzy and pt changed back. she declines changing back to metoprolol. (previously intolerant of atenolol, propranolol). - no amiodarone in light of uncontrolled hyperthyroidism. no digoxin in light of very low GFR. no CCB in light of systolic dysfxn and previous intolerance ( edema) - given low bp trend and weakness/dizziness, coreg CR was decreased to 40 daily dosing (pt with longstanding HTN baseline bp 140s-160s, often higher--may not tolerate bp 100-110) - 10/22: PAT burden is much improved, thyroid function improving. continue coreg CR 40 qd - will d/w EP re: ablation once renal fxn is stabilized, though doubt she is a candidate in current condition (tenuous HF status, uncontrolled hyperthyroidism) - given no fib present, and no definitive atr flutter thus far, will defer AC for now. LE swelling: - started at time of hyperthyroidism, and remains out of proportion to HF findings - responded well to wraps - diuresis as above Elevated troponin - borderline trop similar to prior baseline values, flat trend--not c/w acs. - sec to HF/CKD labile HTN: -mult med intolerances in past -bp stable currently CAD, prior NSTEMI/PCI: -holding DAPT (aspirin/effient) s/p perc nephrostomy tube placement 10/19, pink/ red urine noted, holding -cont home statin (max tolerated dose rosuva 20 with drug holidays), zetia -bb as bp tolerates
--- NOTE | 2018-10-27 11:18 | PN ---
Physical Exam: SUBJECTIVE: Patient seen and examined at bedside; states that she is feeling better and slightly less fatigued. she is down to 101.2 KG so she is significantly improving with her diuresis, she denies any CP/SOB/N/V fevers or chills, slightly tachycardic overnight, but improving OBJECTIVE: Vital Signs Period Temp Pulse Resp BP Sys/Shankar Pulse Ox Last 24 Hr 97.4 F-97.8 F 79-118 18-18 115-130/65-79 96 GENERAL: The patient is awake, alert, and fully oriented, in no acute distress. EYES: no scleral icterus NECK: +JVD LUNGS: decreased breath sounds; improving inspiratory effort. HEART: Regular rate and rhythm, S1, S2 without murmur, rub or gallop. ABDOMEN: distended; non-tender, +BS in all quadrants EXTREMITIES: 2+ pulses, warm, well-perfused, 2+ edema B/L. SKIN: Warm, dry, normal turgor, no rashes or lesions noted Laboratory Results - last 24 hr 10/26/18 10/26/18 10/26/18 12:00 16:53 22:26 WBC RBC Hgb Hct MCV MCH MCHC RDW Plt Count MPV Sodium Potassium Chloride Carbon Dioxide Anion Gap BUN Creatinine Creat Clearance w eGFR POC Glucometer 135 158 171 Random Glucose Calcium Phosphorus Magnesium 10/27/18 10/27/18 10/27/18 05:38 06:00 06:00 WBC 3.2 L RBC 4.24 Hgb 10.6 L Hct 31.8 L MCV 74.8 L MCH 24.9 L MCHC 33.3 RDW 15.7 H Plt Count 150 MPV 8.4 Sodium 139 Potassium 3.5 Chloride 102 Carbon Dioxide 25 Anion Gap 12 BUN 99 H Creatinine 3.3 H Creat Clearance w eGFR 14.12 POC Glucometer 137 Random Glucose 126 H Calcium 8.3 L Phosphorus 3.1 Magnesium 1.7 L Active Medications Generic Name Dose Route Start Last Admin Trade Name Freq PRN Reason Stop Dose Admin Acetaminophen 500 mg 10/19/18 15:24 10/25/18 14:42 Tylenol - PO 500 mg Q6H PRN Administration PAIN Carvedilol 40 mg 10/23/18 10:00 10/27/18 09:13 Coreg Cr - PO 40 mg DAILY [facility] Administration Cholecalciferol 5,000 unit 10/17/18 10:00 10/27/18 09:19 Vitamin D3 - PO Not Given DAILY [facility] Clonazepam 0.5 mg 10/21/18 14:00 10/27/18 09:19 Klonopin - PO Not Given QID [facility] Docusate Sodium 100 mg 10/27/18 10:00 10/27/18 09:11 Colace - PO 100 mg DAILY [facility] Administration Ezetimibe 10 mg 10/17/18 10:00 10/27/18 09:23 Zetia - PO 10 mg DAILY [facility] Administration Furosemide 100 mg 10/23/18 08:26 10/27/18 06:18 Lasix Injection - IVPUSH 100 mg BID@0600,1400 [facility] Administration Heparin Sodium (Porcine) 5,000 unit 10/25/18 22:00 10/27/18 06:19 Heparin - SQ 5,000 unit TID [facility] Administration Insulin Aspart 1 vial 10/17/18 07:00 10/27/18 06:19 Novolog Vial Sliding Scale - SQ Not Given ACHS [facility] Protocol Insulin Detemir 15 units 10/22/18 22:00 10/26/18 22:30 Levemir Vial SQ 15 unit HS [facility] Administration Non-Formulary Medication 1 each 10/18/18 10:00 10/27/18 09:14 Fluticasone/Vilanterol [Breo Ellipta 100-25 Mcg Inh] IH 1 each DAILY [facility] Administration Propylthiouracil 100 mg 10/19/18 10:00 10/27/18 09:12 Ptu - PO 100 mg BID [facility] Administration Rosuvastatin Calcium 10 mg 10/17/18 22:00 10/26/18 22:29 Crestor - PO 10 mg HS [facility] Administration Senna 2 tab 10/26/18 22:00 Senna - PO HS PRN CONSTIPATION ASSESSMENT/PLAN: Patient is a 63 year old female with history of CHF, [place] s/p stents, CAD, DMII, hyperthyroidism, CKD stage V, HTN, HLD, presents with complaint of chest tightness, palpitations. Afib: -patient started on heparin drip here -Coreg 40 daily; which was decreased from 40 BID -continue tele monitoring; patient still having episodes of tachycardia; but less frequent since the increase in PTU dose Hyperthyroidism: -latest free t4 1.07 -on PTU 100 BID; tolerating -c/w beta isrrael therapy Caliectasis: -patient had right nephrostomy tube placed -monitor output CKD stage V: -baseline Cr 3.2; currently 3.3 this morning- decreased from 3.6 yesterday -patient getting permacath today and then will be getting 2 sessions of dialysis while in the hospital and then will need dialysis as an outpatient CHF; -monitor daily weights -I's and O's -on IV lasix 100 BID DM -decreased levemir dosing from 20 units HS to 15 units HS as patients renal function is worsening and shes is becoming slightly more hypoglycemic -ISS ACHS -BGMS ACHS CAD -holding aspirin and prasugrel HTN -c/w coreg 40 daily F/E/N -no fluids -replete electrolytes accordingly -diabetic diet PPX: heparin drip for Afib Problem List - Problems (1) A-fib Code(s): I48.91 - UNSPECIFIED ATRIAL FIBRILLATION (2) Hyperthyroidism Code(s): E05.90 - THYROTOXICOSIS, UNSP WITHOUT THYROTOXIC CRISIS OR STORM (3) Acute pulmonary edema with congestive heart failure Code(s): I50.1 - LEFT VENTRICULAR FAILURE, UNSPECIFIED Visit type - Emergency Visit Emergency Visit: Yes ED Registration Date: 10/16/18 Care time: The patient presented to the Emergency Department on the above date and was hospitalized for further evaluation of their emergent condition. - New Patient This patient is new to me today: No - Critical Care Critical Care patient: No
--- NOTE | 2018-10-27 12:39 | PN ---
Teaching Attending Note Name of Resident: Charmaine Banda ATTENDING PHYSICIAN STATEMENT I saw and evaluated the patient. I reviewed the resident's note and discussed the case with the resident. I agree with the resident's findings and plan as documented. SUBJECTIVE:states her breathing is better today. continues to have intermittent palpitations. denies Cp, fever, chills, N/V/C/D OBJECTIVE: Last Vital Signs Temp Pulse Resp BP Pulse Ox 97.6 F 110 H 18 115/71 96 10/27/18 09:02 10/27/18 09:02 10/27/18 09:02 10/27/18 09:02 10/26/18 21:00 Intake & Output 10/24/18 10/25/18 10/26/18 10/27/18 23:59 23:59 23:59 23:59 Intake Total 960 1150 820 520 Output Total 2650 2250 2300 700 Balance -1690 -1100 -1480 -180 Weight 231 lb 229 lb 3.2 oz 226 lb 6.4 oz 223 lb 3.2 oz General NAD CV S1 S2 RRR Lungs decreased breath sounds R base, poor inspiratory effort ABdomen soft NT/ND. obese Extremities 3+ pitting edema ASSESSMENT AND PLAN: 63 yo F PMx DM, HTN, HLD, [place] in 2012 s/p stents, CABG, Afib, asthma, hyperthyroidism s/p STEINBERG, CKD, anemiaca with mult med intolerances, with CP and palpitations 1. Acute on Chronic systolic CHF exacerbation- dry weight 205. on lasix 100mg IV BID. cont current management. daily weights, monitor electrolytes. cardio on board. 2. Afib with RVR- multiple intolerances to medications. now in NSR. on max doses of coreg at this time. off anticoagluation as no longer in Afib and likely induced from hyperthyroid state. cont cardiac monitoring. limited on alternative treatment options. cardio on board 3. Thyrotoxicosis-s/p STEINBERG in the past. on split doses of PTU as pt not tolerating. monitor TFT. endo on board. 4. Obstructive uropathy due to nephrolithasis- s/p R nephrostomy tube on 10/19. pink tinged output resolved. Hgb stable. hydro shown to have resolved 5. acute on CKD-prerenal and obstructive uropathy. mild improvement but remains volume overloaded. plan for shiley placement today to initiate HD. pt is agreeable. closely monitor renal function. avoid nephrotoxic agents. Nephro on board. 6. Tropinemia- due to demand. flat trend. had recent PCI and no repeat CP since then. DAPT held for nephrostomy placement will d/w cardio about re-starting at htis time. 7. DVT ppx- hep sq
[2018-10-27] MEDS ORDERED: LIDOCAINE HCL 1%, 10 MG/ML (20ML VIAL) ONE (14:03)
[2018-10-27] MEDS ORDERED: CLINDAMYCIN 600 MG PREMIX BAG IVPB ONE (16:35)
[2018-10-27] MEDS ORDERED: MIDAZOLAM HCL 2 MG/2 ML SINGLE DOSE VIAL ONE (16:41)
[2018-10-27] MEDS ORDERED: SUCCINYLCHOLINE CHLORIDE 200 MG/10 ML VIAL ONE (16:47)
[2018-10-27] MEDS ORDERED: LIDOCAINE HCL 1%, 10 MG/ML (20ML VIAL) NR ONE ×2 (16:47)
--- NOTE | 2018-10-27 17:06 | OP ---
Operative Note - Note: Operative Date: 10/27/18 Pre-Operative Diagnosis: ESRD Operation: Placement Permacath Implants: 19 cm Permacath Post-Operative Diagnosis: Same as Pre-op Surgeon: Mg Morgan Anesthesiologist/VETERINARY PHARMACOLOGIST: Carol Lay Anesthesia: Fractional Estimated Blood Loss (mls): 20
[2018-10-27] MEDS ORDERED: ONDANSETRON 4 MG/2 ML VIAL IVPUSH PRN (17:16)
[2018-10-27] MEDS ORDERED: SENNOSIDES 8.6MG TABLET (FP) PO PRN (17:53)
[2018-10-27] MEDS: ACETAMINOPHEN 500 MG TABLET (FP) PO PRN (18:41)
[2018-10-27] MEDS: INSULIN (LEVEMIR) 100 UNITS/ML UNITS SQ SCH (21:17)
[2018-10-27] MEDS: ROSUVASTATIN CA 10 MG TABLET (FP) PO SCH (21:17)
[2018-10-27] MEDS ORDERED: SODIUM CHLORIDE 250 ML IV PRN (22:23)
[2018-10-28] MEDS: HEPARIN NA (PORCINE) 5,000 UNITS/ML 1ML VIAL SQ SCH ×3 (05:35→21:25)
[2018-10-28] MEDS: FUROSEMIDE 100 MG/10 ML INJECTABLE VIAL IVPUSH SCH ×2 (05:41→15:11)
[2018-10-28] MEDS: INSULIN SLIDING SCALE (NOVOLOG) 1 VIAL SQ SCH ×4 (06:13→21:25)
--- NOTE | 2018-10-28 08:29 | PN ---
Physical Exam: SUBJECTIVE: Patient seen and examined at bedside. no acute events overnight- patient states that she is constipated but that she is feeling slightly less fatigued than she has been in the past couple of days. she denies any CP/SOB/N/ V fevers or chills, she put out 1.5L in 24 hours OBJECTIVE: Vital Signs Period Temp Pulse Resp BP Sys/Shankar Pulse Ox Last 24 Hr 97.4 F-98.1 F 71-117 10-20 103-142/40-92 98-100 GENERAL: The patient is awake, alert, and fully oriented, in no acute distress. EYES: no scleral icterus, NECK: +JVD LUNGS: CTA B/L; no rales, rhonchi or wheezing . HEART: Regular rate and rhythm, S1, S2 without murmur, rub or gallop. ABDOMEN: distended; soft; +BS in all 4 quadrants, non-tender EXTREMITIES: 2+ pulses, warm, well-perfused, 3+ edema B/L. SKIN: Warm, dry, normal turgor, no rashes or lesions noted Laboratory Results - last 24 hr 10/27/18 10/27/18 10/27/18 12:34 18:00 21:16 POC Glucometer 186 104 186 10/28/18 05:37 POC Glucometer 113 Active Medications Generic Name Dose Route Start Last Admin Trade Name Freq PRN Reason Stop Dose Admin Acetaminophen 500 mg 10/27/18 17:53 10/27/18 18:41 Tylenol - PO 500 mg Q6H PRN Administration PAIN Carvedilol 40 mg 10/28/18 10:00 Coreg Cr - PO DAILY [facility] Cholecalciferol 5,000 unit 10/28/18 10:00 Vitamin D3 - PO DAILY [facility] Clonazepam 0.5 mg 10/27/18 18:00 10/27/18 21:17 Klonopin - PO 0.5 mg QID [facility] Administration Docusate Sodium 100 mg 10/28/18 10:00 Colace - PO DAILY [facility] Ezetimibe 10 mg 10/28/18 10:00 Zetia - PO DAILY [facility] Furosemide 100 mg 10/28/18 06:00 10/28/18 05:41 Lasix Injection - IVPUSH Not Given BID@0600,1400 [facility] Heparin Sodium (Porcine) 5,000 unit 10/27/18 22:00 10/28/18 05:35 Heparin - SQ 5,000 unit TID [facility] Administration Sodium Chloride 250 mls @ 3,000 mls/hr 10/27/18 22:23 Normal Saline - IV 10/28/18 22:23 PRN PRN Hypotension during Dialysis Insulin Aspart 1 vial 10/27/18 22:00 10/28/18 06:13 Novolog Vial Sliding Scale - SQ Not Given ACHS [facility] Protocol Insulin Detemir 15 units 10/27/18 22:00 10/27/18 21:17 Levemir Vial SQ 15 units HS [facility] Administration Non-Formulary Medication 1 each 10/28/18 10:00 Fluticasone/Vilanterol [Breo Ellipta 100-25 Mcg Inh] IH DAILY [facility] Ondansetron HCl 4 mg 10/27/18 17:16 Zofran Injection IVPUSH Q6H PRN NAUSEA AND/OR VOMITING Propylthiouracil 100 mg 10/27/18 22:00 10/27/18 21:18 Ptu - PO 100 mg BID [facility] Administration Rosuvastatin Calcium 10 mg 10/27/18 22:00 10/27/18 21:17 Crestor - PO 10 mg HS [facility] Administration Senna 2 tab 10/27/18 17:53 Senna - PO HS PRN CONSTIPATION ASSESSMENT/PLAN: Patient is a 63 year old female with history of CHF, [place] s/p stents, CAD, DMII, hyperthyroidism, CKD stage V, HTN, HLD, presents with complaint of chest tightness, palpitations. Afib: -patient started on heparin drip here -Coreg 40 daily; which was decreased from 40 BID -continue tele monitoring; patient still having episodes of tachycardia; but less frequent since the increase in PTU dose Hyperthyroidism: -latest free t4 1.07 -on PTU 100 BID; tolerating -c/w beta isrrael therapy Caliectasis: -patient had right nephrostomy tube placed -monitor output CKD stage V: -baseline Cr 3.2; currently 3.3 this morning- decreased from 3.6 yesterday -patient got permacath yesterday and is going for her first dialysis sessions this AM CHF; -monitor daily weights -I's and O's -on IV lasix 100 BID DM -decreased levemir dosing from 20 units HS to 15 units HS as patients renal function is worsening and shes is becoming slightly more hypoglycemic -ISS ACHS -BGMS ACHS CAD -holding aspirin and prasugrel HTN -c/w coreg 40 daily F/E/N -no fluids -replete electrolytes accordingly -diabetic diet PPX: heparin drip for Afib Problem List - Problems (1) A-fib Code(s): I48.91 - UNSPECIFIED ATRIAL FIBRILLATION (2) Hyperthyroidism Code(s): E05.90 - THYROTOXICOSIS, UNSP WITHOUT THYROTOXIC CRISIS OR STORM (3) Acute pulmonary edema with congestive heart failure Code(s): I50.1 - LEFT VENTRICULAR FAILURE, UNSPECIFIED Visit type - Emergency Visit Emergency Visit: Yes ED Registration Date: 10/16/18 Care time: The patient presented to the Emergency Department on the above date and was hospitalized for further evaluation of their emergent condition. - New Patient This patient is new to me today: No - Critical Care Critical Care patient: No
[2018-10-28] MEDS: CHOLECALCIFEROL (VITAMIN D3) 1,000 UNIT TABLET (FP) PO SCH (09:32)
[2018-10-28] MEDS: CARVEDILOL PHOSPHATE CR 40 MG CAPSULE (FP) PO SCH (09:33)
[2018-10-28] MEDS: DOCUSATE SODIUM 100 MG CAPSULE (FP) PO SCH (09:33)
[2018-10-28] MEDS: PROPYLTHIOURACIL 50 MG TABLET (UD) PO SCH ×2 (09:34→21:24)
[2018-10-28] MEDS: clonazePAM 0.5 MG TABLET PO SCH ×4 (09:53→21:24)
[2018-10-28] MEDS: EZETIMIBE 10 MG TABLET (FP) PO SCH (09:53)
[2018-10-28] MEDS ORDERED: POLYETHYLENE GLYCOL 3350 119 GM BTL PO ONE (10:19)
--- NOTE | 2018-10-28 10:59 | PN ---
Progress Note (short form) - Note Progress Note: History of Present Illness: no chest pain, palps, dizzy, lightheadedness. stable orthopnea. Current Medications Generic Name Dose Route Start Last Admin Trade Name Freq PRN Reason Stop Dose Admin Acetaminophen 500 mg 10/27/18 17:53 10/27/18 18:41 Tylenol - PO 500 mg Q6H PRN Administration PAIN Carvedilol 40 mg 10/28/18 10:00 10/28/18 09:33 Coreg Cr - PO 40 mg DAILY [facility] Administration Cholecalciferol 5,000 unit 10/28/18 10:00 10/28/18 09:32 Vitamin D3 - PO 5,000 unit DAILY [facility] Administration Clonazepam 0.5 mg 10/27/18 18:00 10/28/18 09:53 Klonopin - PO Not Given QID [facility] Docusate Sodium 100 mg 10/28/18 10:00 10/28/18 09:33 Colace - PO 100 mg DAILY [facility] Administration Ezetimibe 10 mg 10/28/18 10:00 10/28/18 09:53 Zetia - PO Not Given DAILY [facility] Furosemide 100 mg 10/28/18 06:00 10/28/18 05:41 Lasix Injection - IVPUSH Not Given BID@0600,1400 [facility] Heparin Sodium (Porcine) 5,000 unit 10/27/18 22:00 10/28/18 05:35 Heparin - SQ 5,000 unit TID [facility] Administration Sodium Chloride 250 mls @ 3,000 mls/hr 10/27/18 22:23 Normal Saline - IV 10/28/18 22:23 PRN PRN Hypotension during Dialysis Insulin Aspart 1 vial 10/27/18 22:00 10/28/18 06:13 Novolog Vial Sliding Scale - SQ Not Given ACHS [facility] Protocol Insulin Detemir 15 units 10/27/18 22:00 10/27/18 21:17 Levemir Vial SQ 15 units HS [facility] Administration Non-Formulary Medication 1 each 10/28/18 10:00 10/28/18 09:33 Fluticasone/Vilanterol [Breo Ellipta 100-25 Mcg Inh] IH 1 each DAILY [facility] Administration Ondansetron HCl 4 mg 10/27/18 17:16 Zofran Injection IVPUSH Q6H PRN NAUSEA AND/OR VOMITING Polyethylene Glycol 17 gm 10/29/18 10:00 Miralax (For Daily Use) - PO DAILY [facility] Propylthiouracil 100 mg 10/27/18 22:00 10/28/18 09:34 Ptu - PO 100 mg BID [facility] Administration Rosuvastatin Calcium 10 mg 10/27/18 22:00 10/27/18 21:17 Crestor - PO 10 mg HS [facility] Administration Senna 2 tab 10/27/18 17:53 Senna - PO HS PRN CONSTIPATION Vital Signs: Vital Signs Period Temp Pulse Resp BP Sys/Shankar Pulse Ox Last 24 Hr 97.4 F-98.1 F 71-117 10-20 103-142/40-92 97-100 Constitutional: Yes: Well Nourished, No Distress Eyes: No: Sclera Icterus HENT: No: Nasal Congestion Respiratory: Yes: CTA Bilaterally. No: Accessory Muscle Use, Rales, Wheezes Gastrointestinal: Yes: Normal Bowel Sounds. No: Distention, Hepatomegaly, Palpable Mass, Tenderness Cardiovascular: Yes: Regular Rate and Rhythm JVD: Yes Heart Sounds: Yes: S1, S2. No: Gallop Murmur: No: Systolic Murmur, Diastolic Murmur Extremities: No: Cool, Cyanosis Edema: Yes (1+ pretib) Peripheral Pulses: 2+ Left Carotid, 2+ Right Carotid, 2+ Left Doralis Pedis, 2+ Right Dorsalis Pedis Integumentary: No: Jaundice Neurological: Yes: Alert, Oriented (x3) Psychiatric: No: Agitated CBC, BMP 10/27/18 06:00 10/27/18 06:00 Assessment/Plan ECG: organized atrial activity: likely PAT with APCs, no definite flutter present. no fib. LVH with repol abn unchanged vs prior CXR: clear lungs Echo 07/2018 inf wall akinetic, other phillip severely hypokinetic, LV mildly dilated, RV function moderately reduced, LV function severely reduced, moderate MR, EF 30% Echo 12/2016: TDS. nl LV size/EF. mild LVH. grade 2 d.d., hi E/e' = high LAP. nl RV. mild LAE. mild-mod MR, mod TR. mild pHTN (46 mmHg) [facility] 2014: unchanged 70-80% distal RCA lesion. patent mLAD stent. 80-90% pLCX-- [employer] [facility]EN tele: sr, pacs a/p: 63 yo female hx cad/pci, hyperthyroidism with associated tachycardia, palpitations, unintentional wt loss, acute on chronic labile HTN with mult med intolerances, mildly decompensated diast chf, and new LE edema (out of proportion to the degree of CHF), p/w le edema,sob. 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 - JVD on exam, with wt up from 3 wks ago baseline and orthopnea if lies flat. however she is not sob at present, so continue holding torsemide to avoid further worsening of obstructive uropathy - 10/22: progressive volume overload (wt up 8 lbs progressively here, JVD persists, CT chest with bilat effusions). renal fxn declining precipitously over past 48 hrs (creat 4.4 today), despite good relief of urinary obstruction s /p nephrostomy tubes--likely cardiorenal syndrome. she is soon to require dialysis for volume mgmt unless she can be effectively diuresed. hopefully renal fxn will improve once volume status improves. she has not diuresed subjectively at home to torsemide 80 qd she says. try lasix 100 iv bid today-- if poor diuretic response or renal fxn worsening tomorrow, will try low dose milrinone inotropic support (if can avoid signif hypotension, uncontrolled PAT/ afib, and excessive ventricular ectopy). - 10/23: wt unchanged today. reports brisk diuresis yest. I > O yest likely inaccurate measurement. bun unchanged, creat slightly improved. rpt lasix 100 iv bid today. plan to add milrinone if equivocal clinical response -10/24-: vol status/sxs continue to improve, renal fxn stable/improved. continue lasix 100 iv bid. defer milrinone unless bun/creat worsens with diuresis (brisk diuretic response suggests she has adequate cardiac output without need for inotropic support). Has permacath now, HD per renal. - bp/dizziness will not tolerate nitrates at present time. - bb dose limited by new hypotension/dizziness--has changed metoprolol succ to coreg CR and insists this causes her less dizziness. cont same coreg - holding hydral, NTG patch (hypotension) - not on SHAN/ARB in setting of ckd obstructive uropathy, OBI on CKD: -probably new baseline creatinine in 3-3.3 range based on recent labs trends recently bumped to 3.5 as outpt--? sec to obstruction -s/p nephrostomy tubes 10/19, creat rising sec to cardiorenal syndrome -HF optimization as above -planned for HD for uremia, renal following hyperthyroidism, sinus tach, PAT: - intolerant of methimazole (elevated LFTs) - s/p radio-I ablation - high burden of ATach with LV systolic dysfunction, now with new afib - low dose PTU resumed, patient tolerating (pt self-discontinued it at home for nausea) - metopr high dose appeared to control PAT burden better than carvedilol, however caused hypotension/dizzy and pt changed back. she declines changing back to metoprolol. (previously intolerant of atenolol, propranolol). - no amiodarone in light of uncontrolled hyperthyroidism. no digoxin in light of very low GFR. no CCB in light of systolic dysfxn and previous intolerance ( edema) - given low bp trend and weakness/dizziness, coreg CR was decreased to 40 daily dosing (pt with longstanding HTN baseline bp 140s-160s, often higher--may not tolerate bp 100-110) - 10/22: PAT burden is much improved, thyroid function improving. continue coreg CR 40 qd - will d/w EP re: ablation once renal fxn is stabilized, though doubt she is a candidate in current condition (tenuous HF status, uncontrolled hyperthyroidism) - given no fib present, and no definitive atr flutter thus far, will defer AC for now. LE swelling: - started at time of hyperthyroidism, and remains out of proportion to HF findings - responded well to wraps - diuresis as above Elevated troponin - borderline trop similar to prior baseline values, flat trend--not c/w acs. - sec to HF/CKD labile HTN: -mult med intolerances in past -bp stable currently CAD, prior NSTEMI/PCI: -holding DAPT (aspirin/effient) s/p perc nephrostomy tube placement 10/19, pink/ red urine noted, holding -cont home statin (max tolerated dose rosuva 20 with drug holidays), zetia -bb as bp tolerates
--- NOTE | 2018-10-28 14:06 | PN ---
Progress Note (short form) - Note Progress Note: Renal follow up for OBI/CKD Pt seen and examined at the bedside awake and alert no acute complaints s/p tunneled HD catheter placement yesterday legs remain swollen Vital Signs Temperature 98.0 F 10/28/18 09:54 Pulse Rate 77 10/28/18 09:54 Respiratory Rate 18 10/28/18 09:54 Blood Pressure 107/65 10/28/18 09:54 O2 Sat by Pulse Oximetry (%) 97 10/28/18 10:00 NAD +++ edema in LE todays labs pending Current Medications Acetaminophen (Tylenol -) 500 mg PO Q6H PRN PRN Reason: PAIN Last Admin: 10/27/18 18:41 Dose: 500 mg Carvedilol (Coreg Cr -) 40 mg PO DAILY [facility] Last Admin: 10/28/18 09:33 Dose: 40 mg Cholecalciferol (Vitamin D3 -) 5,000 unit PO DAILY [facility] Last Admin: 10/28/18 09:32 Dose: 5,000 unit Clonazepam (Klonopin -) 0.5 mg PO QID [facility] Last Admin: 10/28/18 09:53 Dose: Not Given Docusate Sodium (Colace -) 100 mg PO DAILY [facility] Last Admin: 10/28/18 09:33 Dose: 100 mg Ezetimibe (Zetia -) 10 mg PO DAILY [facility] Last Admin: 10/28/18 09:53 Dose: Not Given Furosemide (Lasix Injection -) 100 mg IVPUSH BID@0600,1400 [facility] Last Admin: 10/28/18 05:41 Dose: Not Given Heparin Sodium (Porcine) (Heparin -) 5,000 unit SQ TID [facility] Last Admin: 10/28/18 05:35 Dose: 5,000 unit Sodium Chloride (Normal Saline -) 250 mls @ 3,000 mls/hr IV PRN PRN PRN Reason: Hypotension during Dialysis Stop: 10/28/18 22:23 Insulin Aspart (Novolog Vial Sliding Scale -) 1 vial SQ [facility]; Protocol Last Admin: 10/28/18 11:59 Dose: Not Given Insulin Detemir (Levemir Vial) 15 units SQ HS [facility] Last Admin: 10/27/18 21:17 Dose: 15 units Non-Formulary Medication (Fluticasone/Vilanterol [Breo Ellipta 100-25 Mcg Inh]) 1 each IH DAILY [facility] Last Admin: 10/28/18 09:33 Dose: 1 each Ondansetron HCl (Zofran Injection) 4 mg IVPUSH Q6H PRN PRN Reason: NAUSEA AND/OR VOMITING Polyethylene Glycol (Miralax (For Daily Use) -) 17 gm PO DAILY [facility] Propylthiouracil (Ptu -) 100 mg PO BID [facility] Last Admin: 10/28/18 09:34 Dose: 100 mg Rosuvastatin Calcium (Crestor -) 10 mg PO HS [facility] Last Admin: 10/27/18 21:17 Dose: 10 mg Senna (Senna -) 2 tab PO HS PRN PRN Reason: CONSTIPATION 63 yo F PMx DM, HTN, HLD, [place] in 2012 s/p stents, CABG, Afib, asthma, hyperthyroidism s/p STEINBERG, CKD, anemia with mult med intolerances, with CP and palpitations #OBI on CKD, now ESRD requiring dialysis #Hydronephrosis requiring nephrostomy team #Acute on chronic CHF #Hypertension #Anemia #Hyperthyroidism For first dialysis today, will plan for 2 hours HD and 1 hour isolated UF to maximize fluid removal will plan for second dialysis tomorrow outpatient dialysis placement will need to be arranged continue lasix IV can can change to once daily Goyo Smith DO
[2018-10-28 14:08] LABS: HEMATOCRIT 29.9 % (32.4-45.2); MCH 24.9 pg (25.7-33.7); MCHC 33.4 g/dl (32.0-36.0); MEAN CELL VOLUME 74.5 fl (80-96); PLATELET COUNT 155 K/MM3 (134-434); RBC 4.01 M/mm3 (3.60-5.2); RDW 15.8 % (11.6-15.6); WHITE BLOOD COUNT 3.9 K/mm3 (4.0-10.0)
[2018-10-28 14:54] LABS: ALBUMIN 2.8 g/dl (3.4-5.0); ALK PHOS 129 U/L (45-117); ANION GAP 10 MMOL/L (8-16); BILIRUBIN,TOTAL 0.6 mg/dL (0.2-1); BLOOD UREA NITROGEN 93 mg/dL (7-18); CALCIUM 8.7 mg/dL (8.5-10.1); CHLORIDE 101 mmol/L (98-107); CO2 25 mmol/L (21-32); CREATININE 3.2 mg/dL (0.55-1.3); GLUCOSE,RANDOM 114 mg/dL (74-106); MAGNESIUM 1.8 mg/dL (1.8-2.4); PHOSPHOROUS 3.4 mg/dL (2.5-4.9); POTASSIUM 3.4 mmol/L (3.5-5.1); SGOT/AST 35 U/L (15-37); SGPT/ALT 20 U/L (13-61); SODIUM 137 mmol/L (136-145); TOT PROT 6.6 g/dl (6.4-8.2)
[2018-10-28] MEDS ORDERED: GLYCERIN 1 RECTAL SUPPOSITORY, ADULT RC PRN (15:32)
--- NOTE | 2018-10-28 17:21 | PN ---
Teaching Attending Note Name of Resident: Charmaine Banda ATTENDING PHYSICIAN STATEMENT I saw and evaluated the patient. I reviewed the resident's note and discussed the case with the resident. I agree with the resident's findings and plan as documented. SUBJECTIVE:breathing is much better today. tolerated HD well. denies CP, SOB, fever, chills, N/V/C/D, cough OBJECTIVE: Last Vital Signs Temp Pulse Resp BP Pulse Ox 98.0 F 76 18 122/72 97 10/28/18 14:11 10/28/18 16:54 10/28/18 16:54 10/28/18 16:54 10/28/18 10:00 Intake & Output 10/25/18 10/26/18 10/27/18 10/28/18 23:59 23:59 23:59 23:59 Intake Total 1150 820 720 740 Output Total 2250 2300 920 100 Balance -1100 -1480 -200 640 Weight 229 lb 3.2 oz 226 lb 6.4 oz 223 lb 3.2 oz 225 lb 2 oz General NAD CV S1 S2 RRR Lungs CTA B/L no wheezing/rales/rhonchi ABdomen soft NT/ND. obese Extremities 3+ pitting edema ASSESSMENT AND PLAN: 63 yo F PMx DM, HTN, HLD, [place] in 2012 s/p stents, CABG, Afib, asthma, hyperthyroidism s/p STEINBERG, CKD, anemiaca with mult med intolerances, with CP and palpitations 1. Acute on Chronic systolic CHF exacerbation- dry weight 205. s/p HD 1st session due to volume overload. will reduce lasix to 100mg Daily. daily weights , monitor electrolytes. cardio on board. 2. Afib with RVR- multiple intolerances to medications. now in NSR. rate is now controlled. on max doses of coreg at this time. off anticoagluation as no longer in Afib and likely induced from hyperthyroid state. cont cardiac monitoring. limited on alternative treatment options. cardio on board 3. Thyrotoxicosis-s/p STEINBERG in the past. on split doses of PTU as pt not tolerating. monitor TFT. endo on board. 4. Obstructive uropathy due to nephrolithasis- s/p R nephrostomy tube on 10/19. hydro shown to have resolved. nephrostomy tube management per Uro 5. acute on CKD-prerenal and obstructive uropathy. mild improvement but remains volume overloaded. s/p HD 1sst session today. plan for another session tomorrow. will need AV fistula placement and HD outpatient set up prior to discharge. avoid nephrotoxic agents. Nephro on board. 6. Tropinemia- due to demand. flat trend. had recent PCI and no repeat CP since then. DAPT held for nephrostomy placement will d/w cardio about re-starting at htis time. 7. DVT ppx- hep sq 8. spoke with daughter present at bedside. all questions answered.
[2018-10-28] MEDS ORDERED: SODIUM CHLORIDE 250 ML IV PRN (20:01)
[2018-10-28] MEDS: ROSUVASTATIN CA 10 MG TABLET (FP) PO SCH (21:24)
[2018-10-28] MEDS: INSULIN (LEVEMIR) 100 UNITS/ML UNITS SQ SCH (21:25)
[2018-10-29] MEDS: HEPARIN NA (PORCINE) 5,000 UNITS/ML 1ML VIAL SQ SCH ×3 (05:12→21:32)
[2018-10-29] MEDS: INSULIN SLIDING SCALE (NOVOLOG) 1 VIAL SQ SCH ×4 (06:13→21:37)
[2018-10-29 07:44] LABS: HEMATOCRIT 31.4 % (32.4-45.2); HEMOGLOBIN 9.7 GM/dL (10.7-15.3); MCH 23.2 pg (25.7-33.7); MCHC 30.9 g/dl (32.0-36.0); MEAN CELL VOLUME 75.2 fl (80-96); MEAN PLT VOLUME 8.3 fl (7.5-11.1); PLATELET COUNT 138 K/MM3 (134-434); RBC 4.17 M/mm3 (3.60-5.2); RDW 15.7 % (11.6-15.6); WHITE BLOOD COUNT 4.3 K/mm3 (4.0-10.0)
--- NOTE | 2018-10-29 08:13 | PN ---
Progress Note (short form) - Note Progress Note: c/o generalized fatigue. states breathing is better. denies CP, SOB, fever, chills, N/V/C/D noted to have afib with RVR lastn ight which self reverted Current Medications Generic Name Dose Route Start Last Admin Trade Name Freq PRN Reason Stop Dose Admin Acetaminophen 500 mg 10/27/18 17:53 10/27/18 18:41 Tylenol - PO 500 mg Q6H PRN Administration PAIN Carvedilol 40 mg 10/28/18 10:00 10/28/18 09:33 Coreg Cr - PO 40 mg DAILY [facility] Administration Cholecalciferol 5,000 unit 10/28/18 10:00 10/28/18 09:32 Vitamin D3 - PO 5,000 unit DAILY [facility] Administration Clonazepam 0.5 mg 10/27/18 18:00 10/28/18 21:24 Klonopin - PO 0.5 mg QID [facility] Administration Docusate Sodium 100 mg 10/28/18 10:00 10/28/18 09:33 Colace - PO 100 mg DAILY [facility] Administration Ezetimibe 10 mg 10/28/18 10:00 10/28/18 09:53 Zetia - PO Not Given DAILY [facility] Furosemide 100 mg 10/29/18 10:00 Lasix Injection - IVPUSH DAILY [facility] Glycerin 1 each 10/28/18 15:32 Glycerin Suppository Adult - RC DAILY PRN CONSTIPATION Heparin Sodium (Porcine) 5,000 unit 10/27/18 22:00 10/29/18 05:12 Heparin - SQ 5,000 unit TID [facility] Administration Sodium Chloride 250 mls @ 3,000 mls/hr 10/27/18 22:23 Normal Saline - IV 10/28/18 22:23 PRN PRN Hypotension during Dialysis Sodium Chloride 250 mls @ 3,000 mls/hr 10/28/18 20:01 Normal Saline - IV 10/29/18 20:01 PRN PRN Hypotension during Dialysis Insulin Aspart 1 vial 10/27/18 22:00 10/29/18 06:13 Novolog Vial Sliding Scale - SQ Not Given ACHS [facility] Protocol Insulin Detemir 15 units 10/27/18 22:00 10/28/18 21:25 Levemir Vial SQ Not Given HS [facility] Non-Formulary Medication 1 each 10/28/18 10:00 11/30/18 09:33 Fluticasone/Vilanterol [Breo Ellipta 100-25 Mcg Inh] IH 1 each DAILY [facility] Administration Ondansetron HCl 4 mg 10/27/18 17:16 Zofran Injection IVPUSH Q6H PRN NAUSEA AND/OR VOMITING Polyethylene Glycol 17 gm 10/29/18 10:00 Miralax (For Daily Use) - PO DAILY [facility] Propylthiouracil 100 mg 10/27/18 22:00 10/28/18 21:24 Ptu - PO 100 mg BID [facility] Administration Rosuvastatin Calcium 10 mg 10/27/18 22:00 10/28/18 21:24 Crestor - PO 10 mg HS [facility] Administration Senna 2 tab 10/27/18 17:53 Senna - PO HS PRN CONSTIPATION Last Vital Signs Temp Pulse Resp BP Pulse Ox 98.3 F 79 20 105/70 95 10/29/18 06:00 10/29/18 06:00 10/29/18 06:00 10/29/18 06:00 10/28/18 21:00 General NAD CV S1 S2 RRR Lungs CTA B/L no wheezing/rales/rhonchi ABdomen soft NT/ND. obese Extremities 3+ pitting edema CBCD WBC 4.3 K/mm3 (4.0-10.0) 10/29/18 06:05 RBC 4.17 M/mm3 (3.60-5.2) 10/29/18 06:05 Hgb 9.7 GM/dL (10.7-15.3) L 10/29/18 06:05 Hct 31.4 % (32.4-45.2) L 10/29/18 06:05 MCV 75.2 fl (80-96) L 10/29/18 06:05 MCHC 30.9 g/dl (32.0-36.0) L 10/29/18 06:05 RDW 15.7 % (11.6-15.6) H 10/29/18 06:05 Plt Count 138 K/MM3 (134-434) 10/29/18 06:05 MPV 8.3 fl (7.5-11.1) 10/29/18 06:05 CMP Sodium 137 mmol/L (136-145) 10/29/18 06:05 Potassium 3.5 mmol/L (3.5-5.1) 10/29/18 06:05 Chloride 101 mmol/L (98-107) 10/29/18 06:05 Carbon Dioxide 25 mmol/L (21-32) 10/29/18 06:05 Anion Gap 11 MMOL/L (8-16) 10/29/18 06:05 BUN 69 mg/dL (7-18) H 10/29/18 06:05 Creatinine 2.9 mg/dL (0.55-1.3) H 10/29/18 06:05 Creat Clearance w eGFR 16.39 (>60) 10/29/18 06:05 Calcium 8.3 mg/dL (8.5-10.1) L 10/29/18 06:05 Total Bilirubin 0.6 mg/dL (0.2-1) 10/28/18 13:35 AST 35 U/L (15-37) 10/28/18 13:35 ALT 20 U/L (13-61) 10/28/18 13:35 Alkaline Phosphatase 129 U/L (45-117) H 10/28/18 13:35 Total Protein 6.6 g/dl (6.4-8.2) 10/28/18 13:35 Albumin 2.8 g/dl (3.4-5.0) L 10/28/18 13:35 ASSESSMENT AND PLAN: 63 yo F PMx DM, HTN, HLD, [place] in 2012 s/p stents, CABG, Afib, asthma, hyperthyroidism s/p STEINBERG, CKD, anemia with mult med intolerances, with CP and palpitations 1. Acute on Chronic systolic CHF exacerbation- dry weight 205. s/p HD 1st session due to volume overload. 2nd session planned for today. tolreated well with good response. cont lasix 100mg Daily. daily weights, monitor electrolytes. cardio on board. 2. Afib with RVR- multiple intolerances to medications. now in NSR. episode of afib at 110HR last night which pt was not symptomatic. now back in NSR. on max doses of coreg at this time. off anticoagluation as no longer in Afib and likely induced from hyperthyroid state. cont cardiac monitoring. limited on alternative treatment options. cardio on board 3. Thyrotoxicosis-s/p STEINBERG in the past. on split doses of PTU as pt not tolerating. monitor TFT. endo on board. 4. Obstructive uropathy due to nephrolithasis- s/p R nephrostomy tube on 10/19. hydro shown to have resolved. nephrostomy tube management per Uro 5. acute on CKD-prerenal and obstructive uropathy. mild improvement but remains volume overloaded. s/p HD 1st session yesterday. plan for another session today. will need AV fistula placement and HD outpatient set up prior to discharge. avoid nephrotoxic agents. Nephro on board. 6. Tropinemia- due to demand. flat trend. had recent PCI and no repeat CP since then. DAPT held for nephrostomy placement will d/w cardio about re-starting at htis time. 7. DM- was uncontrolled however now improving. will reduce levemir to 5 units tonight with iss. titrate as neede to optimize control 8. DVT ppx- hep sq Visit type - Emergency Visit Emergency Visit: Yes ED Registration Date: 10/16/18 Care time: The patient presented to the Emergency Department on the above date and was hospitalized for further evaluation of their emergent condition. - New Patient This patient is new to me today: No - Critical Care Critical Care patient: No - Discharge Referral Referred to [facility] Med [facility] No
[2018-10-29 08:16] LABS: ANION GAP 11 MMOL/L (8-16); BLOOD UREA NITROGEN 69 mg/dL (7-18); CALCIUM 8.3 mg/dL (8.5-10.1); CHLORIDE 101 mmol/L (98-107); CO2 25 mmol/L (21-32); CREATININE 2.9 mg/dL (0.55-1.3); GLUCOSE,RANDOM 130 mg/dL (74-106); MAGNESIUM 1.8 mg/dL (1.8-2.4); PHOSPHOROUS 2.9 mg/dL (2.5-4.9); POTASSIUM 3.5 mmol/L (3.5-5.1); SODIUM 137 mmol/L (136-145)
[2018-10-29] MEDS: DOCUSATE SODIUM 100 MG CAPSULE (FP) PO SCH (09:58)
[2018-10-29] MEDS: clonazePAM 0.5 MG TABLET PO SCH ×4 (09:58→21:32)
[2018-10-29] MEDS: PROPYLTHIOURACIL 50 MG TABLET (UD) PO SCH ×2 (09:59→21:31)
[2018-10-29] MEDS: CARVEDILOL PHOSPHATE CR 40 MG CAPSULE (FP) PO SCH (10:00)
[2018-10-29] MEDS: POLYETHYLENE GLYCOL 3350 119 GM BTL PO SCH (10:00)
[2018-10-29] MEDS: EZETIMIBE 10 MG TABLET (FP) PO SCH (10:01)
[2018-10-29] MEDS: FUROSEMIDE 100 MG/10 ML INJECTABLE VIAL IVPUSH SCH (10:01)
--- NOTE | 2018-10-29 10:02 | PN ---
Progress Note (short form) - Note Progress Note: History of Present Illness: feels tired. no chest pain, palps, sob, dizziness, lightheadedness. Current Medications Acetaminophen (Tylenol -) 500 mg PO Q6H PRN PRN Reason: PAIN Last Admin: 10/27/18 18:41 Dose: 500 mg Carvedilol (Coreg Cr -) 40 mg PO DAILY [facility] Last Admin: 10/28/18 09:33 Dose: 40 mg Cholecalciferol (Vitamin D3 -) 5,000 unit PO DAILY [facility] Last Admin: 10/28/18 09:32 Dose: 5,000 unit Clonazepam (Klonopin -) 0.5 mg PO QID [facility] Last Admin: 10/28/18 21:24 Dose: 0.5 mg Docusate Sodium (Colace -) 100 mg PO DAILY [facility] Last Admin: 10/28/18 09:33 Dose: 100 mg Ezetimibe (Zetia -) 10 mg PO DAILY [facility] Last Admin: 10/28/18 09:53 Dose: Not Given Furosemide (Lasix Injection -) 100 mg IVPUSH DAILY [facility] Glycerin (Glycerin Suppository Adult -) 1 each RC DAILY PRN PRN Reason: CONSTIPATION Heparin Sodium (Porcine) (Heparin -) 5,000 unit SQ TID [facility] Last Admin: 10/29/18 05:12 Dose: 5,000 unit Sodium Chloride (Normal Saline -) 250 mls @ 3,000 mls/hr IV PRN PRN PRN Reason: Hypotension during Dialysis Stop: 10/28/18 22:23 Sodium Chloride (Normal Saline -) 250 mls @ 3,000 mls/hr IV PRN PRN PRN Reason: Hypotension during Dialysis Stop: 10/29/18 20:01 Insulin Aspart (Novolog Vial Sliding Scale -) 1 vial SQ ACHS [facility]; Protocol Last Admin: 10/29/18 06:13 Dose: Not Given Insulin Detemir (Levemir Vial) 5 units SQ HS [facility] Non-Formulary Medication (Fluticasone/Vilanterol [Breo Ellipta 100-25 Mcg Inh]) 1 each IH DAILY [facility] Last Admin: 10/28/18 09:33 Dose: 1 each Ondansetron HCl (Zofran Injection) 4 mg IVPUSH Q6H PRN PRN Reason: NAUSEA AND/OR VOMITING Polyethylene Glycol (Miralax (For Daily Use) -) 17 gm PO DAILY [facility] Propylthiouracil (Ptu -) 100 mg PO BID [facility] Last Admin: 10/28/18 21:24 Dose: 100 mg Rosuvastatin Calcium (Crestor -) 10 mg PO HS [facility] Last Admin: 10/28/18 21:24 Dose: 10 mg Senna (Senna -) 2 tab PO HS PRN PRN Reason: CONSTIPATION Vital Signs: Vital Signs Period Temp Pulse Resp BP Sys/Shankar Pulse Ox Last 24 Hr 97.7 F-98.3 F 58-109 16-20 105-123/64-78 95-97 Constitutional: Yes: Well Nourished, No Distress Eyes: No: Sclera Icterus HENT: No: Nasal Congestion Respiratory: Yes: CTA Bilaterally. No: Accessory Muscle Use, Rales, Wheezes Gastrointestinal: Yes: Normal Bowel Sounds. No: Distention, Hepatomegaly, Palpable Mass, Tenderness Cardiovascular: Yes: Regular Rate and Rhythm JVD: Yes Heart Sounds: Yes: S1, S2. No: Gallop Murmur: No: Systolic Murmur, Diastolic Murmur Extremities: No: Cool, Cyanosis Edema: Yes (1+ pretib) Peripheral Pulses: 2+ Left Carotid, 2+ Right Carotid, 2+ Left Doralis Pedis, 2+ Right Dorsalis Pedis Integumentary: No: Jaundice Neurological: Yes: Alert, Oriented (x3) Psychiatric: No: Agitated Assessment/Plan ECG: organized atrial activity: likely PAT with APCs, no definite flutter present. no fib. LVH with repol abn unchanged vs prior CXR: clear lungs Echo 07/2018 inf wall akinetic, other phillip severely hypokinetic, LV mildly dilated, RV function moderately reduced, LV function severely reduced, moderate MR, EF 30% Echo 12/2016: TDS. nl LV size/EF. mild LVH. grade 2 d.d., hi E/e' = high LAP. nl RV. mild LAE. mild-mod MR, mod TR. mild pHTN (46 mmHg) [facility] 2014: unchanged 70-80% distal RCA lesion. patent mLAD stent. 80-90% pLCX-- [facility] [facility] tele: sr, pacs a/p: 63 yo female hx cad/pci, hyperthyroidism with associated tachycardia, palpitations, unintentional wt loss, acute on chronic labile HTN with mult med intolerances, mildly decompensated diast chf, and new LE edema (out of proportion to the degree of CHF), p/w le edema,sob. 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 - JVD on exam, with wt up from 3 wks ago baseline and orthopnea if lies flat. however she is not sob at present, so continue holding torsemide to avoid further worsening of obstructive uropathy - 10/22: progressive volume overload (wt up 8 lbs progressively here, JVD persists, CT chest with bilat effusions). renal fxn declining precipitously over past 48 hrs (creat 4.4 today), despite good relief of urinary obstruction s /p nephrostomy tubes--likely cardiorenal syndrome. she is soon to require dialysis for volume mgmt unless she can be effectively diuresed. hopefully renal fxn will improve once volume status improves. she has not diuresed subjectively at home to torsemide 80 qd she says. try lasix 100 iv bid today-- if poor diuretic response or renal fxn worsening tomorrow, will try low dose milrinone inotropic support (if can avoid signif hypotension, uncontrolled PAT/ afib, and excessive ventricular ectopy). - 10/23: wt unchanged today. reports brisk diuresis yest. I > O yest likely inaccurate measurement. bun unchanged, creat slightly improved. rpt lasix 100 iv bid today. plan to add milrinone if equivocal clinical response -10/24-10/28: vol status/sxs continue to improve, renal fxn stable/improved. on lasix 100 iv bid. - 10/29 Has permacath now, HD per renal. on lasix 100 mg IV daily - bp/dizziness will not tolerate nitrates at present time. - bb dose limited by new hypotension/dizziness--has changed metoprolol succ to coreg CR and insists this causes her less dizziness. cont same coreg - holding hydral, NTG patch (hypotension) - not on SHAN/ARB in setting of ckd obstructive uropathy, OBI on CKD: -s/p nephrostomy tubes 10/19, creat rising sec to cardiorenal syndrome -HD per renal hyperthyroidism, sinus tach, PAT: - intolerant of methimazole (elevated LFTs) - s/p radio-I ablation - high burden of ATach with LV systolic dysfunction, now with new afib - low dose PTU resumed, patient tolerating (pt self-discontinued it at home for nausea) - metopr high dose appeared to control PAT burden better than carvedilol, however caused hypotension/dizzy and pt changed back. she declines changing back to metoprolol. (previously intolerant of atenolol, propranolol). - no amiodarone in light of uncontrolled hyperthyroidism. no digoxin in light of very low GFR. no CCB in light of systolic dysfxn and previous intolerance ( edema) - given low bp trend and weakness/dizziness, coreg CR was decreased to 40 daily dosing (pt with longstanding HTN baseline bp 140s-160s, often higher--may not tolerate bp 100-110) - 10/22: PAT burden is much improved, thyroid function improving. continue coreg CR 40 qd - will d/w EP re: ablation once renal fxn is stabilized, though doubt she is a candidate in current condition (tenuous HF status, uncontrolled hyperthyroidism) - given no fib present, and no definitive atr flutter thus far, will defer AC for now. LE swelling: - started at time of hyperthyroidism, and remains out of proportion to HF findings - responded well to wraps - on HD per renal Elevated troponin - borderline trop similar to prior baseline values, flat trend--not c/w acs. - sec to HF/CKD labile HTN: -mult med intolerances in past -bp stable currently CAD, prior NSTEMI/PCI: -held DAPT (aspirin/effient) s/p perc nephrostomy tube placement 10/19 - restart aspirin and effient -cont home statin (max tolerated dose rosuva 20 with drug holidays), zetia -bb as bp tolerates
[2018-10-29] MEDS ORDERED: INSULIN SLIDING SCALE (NOVOLOG) 1 VIAL SQ ONE (11:26)
[2018-10-29] MEDS: CHOLECALCIFEROL (VITAMIN D3) 1,000 UNIT TABLET (FP) PO SCH (14:29)
[2018-10-29] MEDS ORDERED: PT OWN MED DRAWER 7, Y5N ONE (19:37)
[2018-10-29] MEDS: ACETAMINOPHEN 500 MG TABLET (FP) PO PRN (20:02)
--- NOTE | 2018-10-29 21:10 | PN ---
Progress Note (short form) - Note Progress Note: covering dr olsen seen on dialysis treatment uneventful Problems #OBI on CKD, now ESRD requiring dialysis #Hydronephrosis requiring nephrostomy team #Acute on chronic CHF #Hypertension #Anemia #Hyperthyroidism PMHx DM, HTN, HLD, CT in 2013 s/p stents, CABG, Afib, asthma, hyperthyroidism s/p STEINBERG, CKD, anemia mult med intolerances, CP and palpitations Current Medications Acetaminophen (Tylenol -) 500 mg PO Q6H PRN PRN Reason: PAIN Last Admin: 10/29/18 20:02 Dose: 500 mg Aspirin (Asa -) 81 mg PO DAILY [facility] Carvedilol (Coreg Cr -) 40 mg PO DAILY [facility] Last Admin: 10/29/18 10:00 Dose: 40 mg Cholecalciferol (Vitamin D3 -) 5,000 unit PO DAILY [facility] Last Admin: 10/29/18 14:29 Dose: 5,000 unit Clonazepam (Klonopin -) 0.5 mg PO QID [facility] Last Admin: 10/29/18 17:19 Dose: Not Given Docusate Sodium (Colace -) 100 mg PO DAILY [facility] Last Admin: 10/29/18 09:58 Dose: Not Given Ezetimibe (Zetia -) 10 mg PO DAILY [facility] Last Admin: 10/29/18 10:01 Dose: 10 mg Furosemide (Lasix Injection -) 100 mg IVPUSH DAILY [facility] Last Admin: 10/29/18 10:01 Dose: 100 mg Glycerin (Glycerin Suppository Adult -) 1 each RC DAILY PRN PRN Reason: CONSTIPATION Heparin Sodium (Porcine) (Heparin -) 5,000 unit SQ TID [facility] Last Admin: 10/29/18 14:28 Dose: 5,000 unit Sodium Chloride (Normal Saline -) 250 mls @ 3,000 mls/hr IV PRN PRN PRN Reason: Hypotension during Dialysis Stop: 10/28/18 22:23 Insulin Aspart (Novolog Vial Sliding Scale -) 1 vial SQ ACHS [facility]; Protocol Last Admin: 10/29/18 18:56 Dose: 2 units Insulin Detemir (Levemir Vial) 5 units SQ HS [facility] Non-Formulary Medication (Fluticasone/Vilanterol [Breo Ellipta 100-25 Mcg Inh]) 1 each IH DAILY [facility] Last Admin: 10/29/18 10:09 Dose: 1 each Ondansetron HCl (Zofran Injection) 4 mg IVPUSH Q6H PRN PRN Reason: NAUSEA AND/OR VOMITING Polyethylene Glycol (Miralax (For Daily Use) -) 17 gm PO DAILY [facility] Last Admin: 10/29/18 10:00 Dose: Not Given Prasugrel (Effient -) 10 mg PO DAILY [facility] Propylthiouracil (Ptu -) 100 mg PO BID [facility] Last Admin: 10/29/18 09:59 Dose: 100 mg Rosuvastatin Calcium (Crestor -) 10 mg PO HS [facility] Last Admin: 10/28/18 21:24 Dose: 10 mg Senna (Senna -) 2 tab PO HS PRN PRN Reason: CONSTIPATION Last Vital Signs Temp Pulse Resp BP Pulse Ox 98.2 F 76 18 104/60 99 10/29/18 18:00 10/29/18 18:50 10/29/18 18:50 10/29/18 18:50 10/29/18 09:00 lungs clear heart reg abd soft nontender ext no edema CBC, BMP 10/29/18 06:05 10/29/18 06:05 For first dialysis today, will plan for 2 hours HD and 1 hour isolated UF to maximize fluid removal will plan for second dialysis tomorrow outpatient dialysis placement will need to be arranged continue lasix IV can can change to once daily
[2018-10-29] MEDS: ROSUVASTATIN CA 10 MG TABLET (FP) PO SCH (21:31)
[2018-10-29] MEDS: INSULIN (LEVEMIR) 100 UNITS/ML UNITS SQ SCH (21:37)
[2018-10-30] MEDS: HEPARIN NA (PORCINE) 5,000 UNITS/ML 1ML VIAL SQ SCH ×3 (05:41→22:01)
[2018-10-30] MEDS: ACETAMINOPHEN 500 MG TABLET (FP) PO PRN (05:41)
[2018-10-30] MEDS: INSULIN SLIDING SCALE (NOVOLOG) 1 VIAL SQ SCH ×4 (06:03→21:59)
[2018-10-30 08:02] LABS: ANION GAP 11 MMOL/L (8-16); BLOOD UREA NITROGEN 44 mg/dL (7-18); CALCIUM 8.4 mg/dL (8.5-10.1); CHLORIDE 99 mmol/L (98-107); CO2 26 mmol/L (21-32); CREATININE 2.4 mg/dL (0.55-1.3); GLUCOSE,RANDOM 248 mg/dL (74-106); POTASSIUM 3.8 mmol/L (3.5-5.1); SODIUM 136 mmol/L (136-145)
--- NOTE | 2018-10-30 09:54 | PN ---
Progress Note (short form) - Note Progress Note: History of Present Illness: no chest pain, palps, dizzy, lightheadedness. stable orthopnea. Current Medications Generic Name Dose Route Start Last Admin Trade Name Shan PRN Reason Stop Dose Admin Acetaminophen 500 mg 10/27/18 17:53 10/30/18 05:41 Tylenol - PO 500 mg Q6H PRN Administration PAIN Aspirin 81 mg 10/30/18 10:00 Asa - PO DAILY [facility] Carvedilol 40 mg 10/28/18 10:00 10/29/18 10:00 Coreg Cr - PO 40 mg DAILY [facility] Administration Cholecalciferol 5,000 unit 10/28/18 10:00 10/29/18 14:29 Vitamin D3 - PO 5,000 unit DAILY [facility] Administration Clonazepam 0.5 mg 10/27/18 18:00 10/29/18 21:32 Klonopin - PO 0.5 mg QID [facility] Administration Docusate Sodium 100 mg 10/28/18 10:00 10/29/18 09:58 Colace - PO Not Given DAILY [facility] Ezetimibe 10 mg 10/28/18 10:00 10/29/18 10:01 Zetia - PO 10 mg DAILY [facility] Administration Furosemide 100 mg 10/29/18 10:00 10/29/18 10:01 Lasix Injection - IVPUSH 100 mg DAILY [facility] Administration Glycerin 1 each 10/28/18 15:32 Glycerin Suppository Adult - RC DAILY PRN CONSTIPATION Heparin Sodium (Porcine) 5,000 unit 10/27/18 22:00 10/30/18 05:41 Heparin - SQ 5,000 unit TID [facility] Administration Sodium Chloride 250 mls @ 3,000 mls/hr 10/27/18 22:23 Normal Saline - IV 10/28/18 22:23 PRN PRN Hypotension during Dialysis Insulin Aspart 1 vial 10/27/18 22:00 10/30/18 06:03 Novolog Vial Sliding Scale - SQ 6 units ACHS [facility] Administration Protocol Insulin Detemir 5 units 10/29/18 08:58 10/29/18 21:37 Levemir Vial SQ Not Given HS [facility] Non-Formulary Medication 1 each 10/28/18 10:00 10/29/18 10:09 Fluticasone/Vilanterol [Breo Ellipta 100-25 Mcg Inh] IH 1 each DAILY [facility] Administration Ondansetron HCl 4 mg 10/27/18 17:16 Zofran Injection IVPUSH Q6H PRN NAUSEA AND/OR VOMITING Polyethylene Glycol 17 gm 10/29/18 10:00 10/29/18 10:00 Miralax (For Daily Use) - PO Not Given DAILY [facility] Prasugrel 10 mg 10/30/18 10:00 Effient - PO DAILY [facility] Propylthiouracil 100 mg 10/27/18 22:00 10/29/18 21:31 Ptu - PO 100 mg BID [facility] Administration Rosuvastatin Calcium 10 mg 10/27/18 22:00 10/29/18 21:31 Crestor - PO 10 mg HS [facility] Administration Senna 2 tab 10/27/18 17:53 Senna - PO HS PRN CONSTIPATION Vital Signs: Vital Signs Period Temp Pulse Resp BP Sys/Shankar Pulse Ox Last 24 Hr 97.8 F-98.5 F 70-104 18-20 90-122/48-68 99 Constitutional: Yes: Well Nourished, No Distress Eyes: No: Sclera Icterus HENT: No: Nasal Congestion Respiratory: Yes: CTA Bilaterally. No: Accessory Muscle Use, Rales, Wheezes Gastrointestinal: Yes: Normal Bowel Sounds. No: Distention, Hepatomegaly, Palpable Mass, Tenderness Cardiovascular: Yes: Regular Rate and Rhythm JVD: Yes Heart Sounds: Yes: S1, S2. No: Gallop Murmur: No: Systolic Murmur, Diastolic Murmur Extremities: No: Cool, Cyanosis Edema: Yes (1+ pretib) Peripheral Pulses: 2+ Left Carotid, 2+ Right Carotid, 2+ Left Doralis Pedis, 2+ Right Dorsalis Pedis Integumentary: No: Jaundice Neurological: Yes: Alert, Oriented (x3) Psychiatric: No: Agitated CBC, BMP 10/27/18 06:00 10/27/18 06:00 ECG: organized atrial activity: likely PAT with APCs, no definite flutter present. no fib. LVH with repol abn unchanged vs prior CXR: clear lungs Echo 07/2018 inf wall akinetic, other phillip severely hypokinetic, LV mildly dilated, RV function moderately reduced, LV function severely reduced, moderate MR, EF 30% Echo 12/2016: TDS. nl LV size/EF. mild LVH. grade 2 d.d., hi E/e' = high LAP. nl RV. mild LAE. mild-mod MR, mod TR. mild pHTN (46 mmHg) [facility] 2014: unchanged 70-80% distal RCA lesion. patent mLAD stent. 80-90% pLCX-- [employer] [facility] tele: sr, pacs a/p: 63 yo female hx cad/pci, hyperthyroidism with associated tachycardia, palpitations, unintentional wt loss, acute on chronic labile HTN with mult med intolerances, mildly decompensated diast chf, and new LE edema (out of proportion to the degree of CHF), p/w le edema,sob. 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 - JVD on exam, with wt up from 3 wks ago baseline and orthopnea if lies flat. however she is not sob at present, so continue holding torsemide to avoid further worsening of obstructive uropathy - 10/22: progressive volume overload (wt up 8 lbs progressively here, JVD persists, CT chest with bilat effusions). renal fxn declining precipitously over past 48 hrs (creat 4.4 today), despite good relief of urinary obstruction s /p nephrostomy tubes--likely cardiorenal syndrome. she is soon to require dialysis for volume mgmt unless she can be effectively diuresed. hopefully renal fxn will improve once volume status improves. she has not diuresed subjectively at home to torsemide 80 qd she says. try lasix 100 iv bid today-- if poor diuretic response or renal fxn worsening tomorrow, will try low dose milrinone inotropic support (if can avoid signif hypotension, uncontrolled PAT/ afib, and excessive ventricular ectopy). - 10/23: wt unchanged today. reports brisk diuresis yest. I > O yest likely inaccurate measurement. bun unchanged, creat slightly improved. rpt lasix 100 iv bid today. plan to add milrinone if equivocal clinical response -10/24-: vol status/sxs continue to improve, renal fxn stable/improved. continue lasix 100 iv bid. defer milrinone unless bun/creat worsens with diuresis (brisk diuretic response suggests she has adequate cardiac output without need for inotropic support). Has permacath now, HD per renal. -10/29-2: HD per renal. Remains on iv lasix as well. - bp/dizziness will not tolerate nitrates at present time. - bb dose limited by new hypotension/dizziness--has changed metoprolol succ to coreg CR and insists this causes her less dizziness. cont same coreg - holding hydral, NTG patch (hypotension) - not on SHAN/ARB in setting of ckd obstructive uropathy, OBI on CKD: -probably new baseline creatinine in 3-3.3 range based on recent labs trends recently bumped to 3.5 as outpt--? sec to obstruction -s/p nephrostomy tubes 10/19, creat rising sec to cardiorenal syndrome -now on HD hyperthyroidism, sinus tach, PAT: - intolerant of methimazole (elevated LFTs) - s/p radio-I ablation - high burden of ATach with LV systolic dysfunction, now with new afib - low dose PTU resumed, patient tolerating (pt self-discontinued it at home for nausea) - metopr high dose appeared to control PAT burden better than carvedilol, however caused hypotension/dizzy and pt changed back. she declines changing back to metoprolol. (previously intolerant of atenolol, propranolol). - no amiodarone in light of uncontrolled hyperthyroidism. no digoxin in light of very low GFR. no CCB in light of systolic dysfxn and previous intolerance ( edema) - given low bp trend and weakness/dizziness, coreg CR was decreased to 40 daily dosing (pt with longstanding HTN baseline bp 140s-160s, often higher--may not tolerate bp 100-110) - 10/22: PAT burden is much improved, thyroid function improving. continue coreg CR 40 qd - will d/w EP re: ablation once renal fxn is stabilized, though doubt she is a candidate in current condition (tenuous HF status, uncontrolled hyperthyroidism) - given no fib present, and no definitive atr flutter thus far, will defer AC for now. LE swelling: - started at time of hyperthyroidism, and remains out of proportion to HF findings - responded well to wraps - diuresis as above Elevated troponin - borderline trop similar to prior baseline values, flat trend--not c/w acs. - sec to HF/CKD labile HTN: -mult med intolerances in past -bp stable currently CAD, prior NSTEMI/PCI: -holding DAPT (aspirin/effient) s/p perc nephrostomy tube placement 10/19, pink/ red urine noted, holding -cont home statin (max tolerated dose rosuva 20 with drug holidays), zetia -bb as bp tolerates
[2018-10-30] MEDS: ASPIRIN 81 MG CHEWABLE TABLETS PO SCH (10:09)
[2018-10-30] MEDS: DOCUSATE SODIUM 100 MG CAPSULE (FP) PO SCH (10:09)
[2018-10-30] MEDS: FUROSEMIDE 100 MG/10 ML INJECTABLE VIAL IVPUSH SCH (10:09)
[2018-10-30] MEDS: PROPYLTHIOURACIL 50 MG TABLET (UD) PO SCH ×2 (10:11→22:00)
[2018-10-30] MEDS: clonazePAM 0.5 MG TABLET PO SCH ×4 (10:12→22:00)
[2018-10-30] MEDS: POLYETHYLENE GLYCOL 3350 119 GM BTL PO SCH (10:12)
[2018-10-30] MEDS: EZETIMIBE 10 MG TABLET (FP) PO SCH (10:13)
[2018-10-30] MEDS: PRASUGREL HCL 10 MG TAB PO SCH (10:15)
--- NOTE | 2018-10-30 10:30 | PN ---
Physical Exam: SUBJECTIVE: Patient seen and examined at bedside- no acute events overnight. patient states that she is feeling well and is feeling less fatigued and feels her breathing is improving- she denies any CP/SOB/N/V fevers or chills. OBJECTIVE: Vital Signs Period Temp Pulse Resp BP Sys/Shankar Pulse Ox Last 24 Hr 97.8 F-98.5 F 70-104 18-20 90-122/48-68 99 GENERAL: The patient is awake, alert, and fully oriented, in no acute distress. EYES: no scleral icterus NECK: + JVD LUNGS: CTA B/L; no rales, rhonchi or wheezing. HEART: Regular rate and rhythm, S1, S2 without murmur, rub or gallop. ABDOMEN: Soft, distended +BS, non-tender in all 4 quadrants. EXTREMITIES: 2+ pulses, warm, well-perfused, 3+ edema B/L. SKIN: Warm, dry, normal turgor, no rashes or lesions noted Laboratory Results - last 24 hr 10/28/18 10/29/18 10/29/18 13:35 11:21 16:39 Sodium Potassium Chloride Carbon Dioxide Anion Gap BUN Creatinine Creat Clearance w eGFR POC Glucometer 271 189 Random Glucose Calcium B-Natriuretic Peptide Lipase Hep C Ab Diagnostic <0.1 10/29/18 10/30/18 10/30/18 21:35 05:37 06:00 Sodium 136 Potassium 3.8 Chloride 99 Carbon Dioxide 26 Anion Gap 11 BUN 44 H Creatinine 2.4 H Creat Clearance w eGFR 20.39 POC Glucometer 143 299 Random Glucose 248 H Calcium 8.4 L B-Natriuretic Peptide Cancelled Lipase Cancelled Hep C Ab Diagnostic Active Medications Generic Name Dose Route Start Last Admin Trade Name Freq PRN Reason Stop Dose Admin Acetaminophen 500 mg 10/27/18 17:53 10/30/18 05:41 Tylenol - PO 500 mg Q6H PRN Administration PAIN Aspirin 81 mg 10/30/18 10:00 10/30/18 10:09 Asa - PO 81 mg DAILY [facility] Administration Carvedilol 40 mg 10/28/18 10:00 10/29/18 10:00 Coreg Cr - PO 40 mg DAILY [facility] Administration Cholecalciferol 5,000 unit 10/28/18 10:00 10/29/18 14:29 Vitamin D3 - PO 5,000 unit DAILY [facility] Administration Clonazepam 0.5 mg 10/27/18 18:00 10/30/18 10:12 Klonopin - PO 0.5 mg QID [facility] Administration Docusate Sodium 100 mg 10/28/18 10:00 10/30/18 10:09 Colace - PO Not Given DAILY [facility] Ezetimibe 10 mg 10/28/18 10:00 10/30/18 10:13 Zetia - PO Not Given DAILY [facility] Furosemide 100 mg 10/29/18 10:00 10/30/18 10:09 Lasix Injection - IVPUSH 100 mg DAILY [facility] Administration Glycerin 1 each 10/28/18 15:32 Glycerin Suppository Adult - RC DAILY PRN CONSTIPATION Heparin Sodium (Porcine) 5,000 unit 10/27/18 22:00 10/30/18 05:41 Heparin - SQ 5,000 unit TID [facility] Administration Sodium Chloride 250 mls @ 3,000 mls/hr 10/27/18 22:23 Normal Saline - IV 10/28/18 22:23 PRN PRN Hypotension during Dialysis Insulin Aspart 1 vial 10/27/18 22:00 10/30/18 06:03 Novolog Vial Sliding Scale - SQ 6 units ACHS [facility]O Administration Protocol Insulin Detemir 5 units 10/29/18 08:58 10/29/18 21:37 Levemir Vial SQ Not Given HS [facility] Non-Formulary Medication 1 each 10/28/18 10:00 10/30/18 10:16 Fluticasone/Vilanterol [Breo Ellipta 100-25 Mcg Inh] IH 1 each DAILY [facility] Administration Ondansetron HCl 4 mg 10/27/18 17:16 Zofran Injection IVPUSH Q6H PRN NAUSEA AND/OR VOMITING Polyethylene Glycol 17 gm 10/29/18 10:00 10/30/18 10:12 Miralax (For Daily Use) - PO Not Given DAILY [facility] Prasugrel 10 mg 10/30/18 10:00 10/30/18 10:15 Effient - PO 10 mg DAILY [facility] Administration Propylthiouracil 100 mg 10/27/18 22:00 10/30/18 10:11 Ptu - PO 100 mg BID [facility] Administration Rosuvastatin Calcium 10 mg 10/27/18 22:00 10/29/18 21:31 Crestor - PO 10 mg HS [facility] Administration Senna 2 tab 10/27/18 17:53 Senna - PO HS PRN CONSTIPATION ASSESSMENT/PLAN: Patient is a 63 year old female with history of CHF, [place] s/p stents, CAD, DMII, hyperthyroidism, CKD stage V, HTN, HLD, presents with complaint of chest tightness, palpitations. Afib: -patient started on heparin drip here -Coreg 40 daily; which was decreased from 40 BID -continue tele monitoring; patient still having episodes of tachycardia; but less frequent since the increase in PTU dose Hyperthyroidism: -latest free t4 1.07 -on PTU 100 BID; tolerating -c/w beta isrrael therapy Caliectasis: -patient had right nephrostomy tube placed -monitor output CKD stage V: -baseline Cr 3.2; currently 2.4 this morning- -patient had dialysis yesterday is going for AV fistula placement tomorrow with possibly anther HD session -arranging outpatient dialysis CHF; -monitor daily weights -I's and O's -on IV lasix 100 daily DM -decreased levemir dosing from 20 units HS to 5 units HS as patients renal function is worsening and shes is becoming slightly more hypoglycemic -ISS ACHS -BGMS ACHS CAD -holding aspirin and prasugrel HTN -c/w coreg 40 daily F/E/N -no fluids -replete electrolytes accordingly -diabetic diet PPX: heparin drip for Afib Problem List - Problems (1) A-fib Code(s): I48.91 - UNSPECIFIED ATRIAL FIBRILLATION (2) Hyperthyroidism Code(s): E05.90 - THYROTOXICOSIS, UNSP WITHOUT THYROTOXIC CRISIS OR STORM (3) Acute pulmonary edema with congestive heart failure Code(s): I50.1 - LEFT VENTRICULAR FAILURE, UNSPECIFIED Visit type - Emergency Visit Emergency Visit: Yes ED Registration Date: 10/16/18 Care time: The patient presented to the Emergency Department on the above date and was hospitalized for further evaluation of their emergent condition. - New Patient This patient is new to me today: No - Critical Care Critical Care patient: No
[2018-10-30] MEDS: CARVEDILOL PHOSPHATE CR 40 MG CAPSULE (FP) PO SCH (12:08)
[2018-10-30] MEDS: CHOLECALCIFEROL (VITAMIN D3) 1,000 UNIT TABLET (FP) PO SCH (12:08)
--- NOTE | 2018-10-30 12:27 | PN ---
Teaching Attending Note Name of Resident: Charmaine Banda ATTENDING PHYSICIAN STATEMENT I saw and evaluated the patient. I reviewed the resident's note and discussed the case with the resident. I agree with the resident's findings and plan as documented. SUBJECTIVE:states breathing is much better. denies Cp, SOB, fever, chills, N/V/C /D OBJECTIVE: Last Vital Signs Temp Pulse Resp BP Pulse Ox 97.8 F 80 18 121/70 99 10/30/18 10:00 10/30/18 12:13 10/30/18 12:13 10/30/18 12:13 10/29/18 21:00 Intake & Output 10/27/18 10/28/18 10/29/18 10/30/18 23:59 23:59 23:59 23:59 Intake Total 720 1280 820 130 Output Total 920 300 940 Balance -200 980 -120 130 Weight 223 lb 3.2 oz 225 lb 2 oz 221 lb 2 oz 219 lb 4 oz General NAD Lungs cta B/L no wheezing/rales/rhonchi Extremities 2+ pitting edema B/L ASSESSMENT AND PLAN: 63 yo F PMx DM, HTN, HLD, [place] in 2012 s/p stents, CABG, Afib, asthma, hyperthyroidism s/p STEINBERG, CKD, anemia with mult med intolerances, with CP and palpitations 1. Acute on Chronic systolic CHF exacerbation- dry weight 205. s/p HD x2. weight continues to improve. consider switching lasix to po tomorrow. daily weights, monitor electrolytes. cardio on board. 2. Afib with RVR- multiple intolerances to medications. now in NSR. on max doses of coreg at this time. off anticoagluation as no longer in Afib and likely induced from hyperthyroid state. cont cardiac monitoring. limited on alternative treatment options. cardio on board 3. Thyrotoxicosis-s/p STEINBERG in the past. on split doses of PTU as pt not tolerating. TSH improving slowly. endo on board. 4. Obstructive uropathy due to nephrolithasis- s/p R nephrostomy tube on 10/19. hydro shown to have resolved. nephrostomy tube management per Uro 5. acute on CKD-prerenal and obstructive uropathy. mild improvement but remains volume overloaded. s/p HD initiation. plan for fistual placement prior to D/c. possible tomorrow. vasc surg and Nephro on board. 6. Tropinemia- due to demand. flat trend. had recent PCI and no repeat CP since then. DAPT held for nephrostomy placement will d/w cardio about re-starting at htis time. 7. DM- high sugars this AM. pt refused levemir dose states she felt her sugars were better and did not want to take. informed her dose was adjusted and ramon does not require as high of doses. cont BGM, iSS. 8. DVT ppx- hep sq
--- NOTE | 2018-10-30 18:31 | PN ---
Progress Note (short form) - Note Progress Note: covering dr olsen seen on dialysis treatment uneventful Problems #OBI on CKD, now ESRD requiring dialysis #Hydronephrosis requiring nephrostomy #Acute on chronic CHF DM, HTN, HLD, [place] in 2013 s/p stents, CABG, Afib, asthma, hyperthyroidism s/p STEINBERG, CKD, anemia mult med intolerances, CP and palpitations Current Medications Acetaminophen (Tylenol -) 500 mg PO Q6H PRN PRN Reason: PAIN Last Admin: 10/30/18 05:41 Dose: 500 mg Aspirin (Asa -) 81 mg PO DAILY [facility] Last Admin: 10/30/18 10:09 Dose: 81 mg Carvedilol (Coreg Cr -) 40 mg PO DAILY [facility] Last Admin: 10/30/18 12:08 Dose: 40 mg Cholecalciferol (Vitamin D3 -) 5,000 unit PO DAILY [facility] Last Admin: 10/30/18 12:08 Dose: 5,000 unit Clonazepam (Klonopin -) 0.5 mg PO QID [facility] Last Admin: 10/30/18 18:13 Dose: Not Given Docusate Sodium (Colace -) 100 mg PO DAILY [facility] Last Admin: 10/30/18 10:09 Dose: Not Given Ezetimibe (Zetia -) 10 mg PO DAILY [facility] Last Admin: 10/30/18 10:13 Dose: Not Given Furosemide (Lasix Injection -) 100 mg IVPUSH DAILY [facility] Last Admin: 10/30/18 10:09 Dose: 100 mg Glycerin (Glycerin Suppository Adult -) 1 each RC DAILY PRN PRN Reason: CONSTIPATION Heparin Sodium (Porcine) (Heparin -) 5,000 unit SQ TID [facility] Last Admin: 10/30/18 14:30 Dose: Not Given Sodium Chloride (Normal Saline -) 250 mls @ 3,000 mls/hr IV PRN PRN PRN Reason: Hypotension during Dialysis Stop: 10/28/18 22:23 Insulin Aspart (Novolog Vial Sliding Scale -) 1 vial SQ [facility]; Protocol Last Admin: 10/30/18 17:06 Dose: Not Given Insulin Detemir (Levemir Vial) 5 units SQ HS [facility] Last Admin: 10/29/18 21:37 Dose: Not Given Non-Formulary Medication (Fluticasone/Vilanterol [Breo Ellipta 100-25 Mcg Inh]) 1 each IH DAILY [facility] Last Admin: 10/30/18 10:16 Dose: 1 each Ondansetron HCl (Zofran Injection) 4 mg IVPUSH Q6H PRN PRN Reason: NAUSEA AND/OR VOMITING Polyethylene Glycol (Miralax (For Daily Use) -) 17 gm PO DAILY [facility] Last Admin: 10/30/18 10:12 Dose: Not Given Prasugrel (Effient -) 10 mg PO DAILY [facility] Last Admin: 10/30/18 10:15 Dose: 10 mg Propylthiouracil (Ptu -) 100 mg PO BID [facility] Last Admin: 10/30/18 10:11 Dose: 100 mg Rosuvastatin Calcium (Crestor -) 10 mg PO HS [facility] Last Admin: 10/29/18 21:31 Dose: 10 mg Senna (Senna -) 2 tab PO HS PRN PRN Reason: CONSTIPATION Last Vital Signs Temp Pulse Resp BP Pulse Ox 98.4 F 88 16 114/64 96 10/30/18 14:45 10/30/18 14:45 10/30/18 14:45 10/30/18 14:45 10/30/18 09:00 lungs clear heart reg abd soft nontender ext no edema CBC, BMP 10/29/18 06:05 10/29/18 06:05 esrd new to dialysis Plan- hd tomorrow F
[2018-10-30] MEDS ORDERED: SODIUM CHLORIDE 250 ML IV PRN (18:35)
[2018-10-30] MEDS ORDERED: PT OWN MED DRAWER 7, Y5N ONE (21:52)
[2018-10-30] MEDS: INSULIN (LEVEMIR) 100 UNITS/ML UNITS SQ SCH (22:00)
[2018-10-30] MEDS: ROSUVASTATIN CA 10 MG TABLET (FP) PO SCH (22:00)
[2018-10-31] MEDS: INSULIN SLIDING SCALE (NOVOLOG) 1 VIAL SQ SCH ×4 (06:20→22:29)
[2018-10-31] MEDS: HEPARIN NA (PORCINE) 5,000 UNITS/ML 1ML VIAL SQ SCH ×3 (06:20→22:18)
[2018-10-31 07:18] LABS: ANION GAP 9 MMOL/L (8-16); BLOOD UREA NITROGEN 46 mg/dL (7-18); CALCIUM 8.1 mg/dL (8.5-10.1); CHLORIDE 99 mmol/L (98-107); CO2 29 mmol/L (21-32); CREATININE 2.8 mg/dL (0.55-1.3); GLUCOSE,RANDOM 158 mg/dL (74-106); MAGNESIUM 1.8 mg/dL (1.8-2.4); PHOSPHOROUS 2.2 mg/dL (2.5-4.9); POTASSIUM 3.9 mmol/L (3.5-5.1); SODIUM 137 mmol/L (136-145)
[2018-10-31] MEDS ORDERED: NAPH,MB-DB/K PH,MBDB POWDER PACKET PO ONE ×2 (07:58→18:45)
--- NOTE | 2018-10-31 09:09 | PN ---
Progress Note, Physician Chief Complaint: chf History of Present Illness: no sob, orthopnea legs still swollen palpitations stable, improved no cp no cigs - Current Medication List Current Medications: Active Medications Acetaminophen (Tylenol -) 500 mg PO Q6H PRN PRN Reason: PAIN Last Admin: 10/30/18 05:41 Dose: 500 mg Aspirin (Asa -) 81 mg PO DAILY [facility] Last Admin: 10/30/18 10:09 Dose: 81 mg Carvedilol (Coreg Cr -) 40 mg PO DAILY [facility] Last Admin: 10/30/18 12:08 Dose: 40 mg Cholecalciferol (Vitamin D3 -) 5,000 unit PO DAILY [facility] Last Admin: 10/30/18 12:08 Dose: 5,000 unit Clonazepam (Klonopin -) 0.5 mg PO QID [facility] Last Admin: 10/30/18 22:00 Dose: 0.5 mg Docusate Sodium (Colace -) 100 mg PO DAILY [facility] Last Admin: 10/30/18 10:09 Dose: Not Given Ezetimibe (Zetia -) 10 mg PO DAILY [facility] Last Admin: 10/30/18 10:13 Dose: Not Given Furosemide (Lasix Injection -) 100 mg IVPUSH DAILY [facility] Last Admin: 10/30/18 10:09 Dose: 100 mg Glycerin (Glycerin Suppository Adult -) 1 each RC DAILY PRN PRN Reason: CONSTIPATION Heparin Sodium (Porcine) (Heparin -) 5,000 unit SQ TID [facility] Last Admin: 10/31/18 06:20 Dose: Not Given Sodium Chloride (Normal Saline -) 250 mls @ 3,000 mls/hr IV PRN PRN PRN Reason: Hypotension during Dialysis Stop: 10/31/18 18:35 Insulin Aspart (Novolog Vial Sliding Scale -) 1 vial SQ [facility]; Protocol Last Admin: 10/31/18 06:20 Dose: Not Given Insulin Detemir (Levemir Vial) 5 units SQ HS [facility] Last Admin: 10/30/18 22:00 Dose: 5 units Non-Formulary Medication (Fluticasone/Vilanterol [Breo Ellipta 100-25 Mcg Inh]) 1 each IH DAILY [facility] Last Admin: 10/30/18 10:16 Dose: 1 each Ondansetron HCl (Zofran Injection) 4 mg IVPUSH Q6H PRN PRN Reason: NAUSEA AND/OR VOMITING Polyethylene Glycol (Miralax (For Daily Use) -) 17 gm PO DAILY [facility] Last Admin: 10/30/18 10:12 Dose: Not Given Prasugrel (Effient -) 10 mg PO DAILY [facility] Last Admin: 10/30/18 10:15 Dose: 10 mg Propylthiouracil (Ptu -) 100 mg PO BID [facility] Last Admin: 10/30/18 22:00 Dose: 100 mg Rosuvastatin Calcium (Crestor -) 10 mg PO HS [facility] Last Admin: 10/30/18 22:00 Dose: 10 mg Senna (Senna -) 2 tab PO HS PRN PRN Reason: CONSTIPATION - Objective Vital Signs: Vital Signs Temperature 98.7 F 10/31/18 05:40 Pulse Rate 80 10/31/18 05:40 Respiratory Rate 18 10/31/18 05:40 Blood Pressure 117/62 10/31/18 05:40 O2 Sat by Pulse Oximetry (%) 95 10/31/18 03:12 Constitutional: Yes: No Distress, Calm Eyes: No: Sclera Icterus HENT: No: Nasal Congestion Cardiovascular: Yes: Regular Rate and Rhythm, S1, S2, Other (PMI non diplaced). No: Gallop, Murmur Respiratory: Yes: CTA Bilaterally. No: Accessory Muscle Use, Rales, Wheezes Gastrointestinal: Yes: Normal Bowel Sounds, Soft. No: Tenderness Musculoskeletal: Yes: Other (No kyphosis) Extremities: No: Cold Edema: Yes Integumentary: No: Jaundice Neurological: Yes: Alert, Oriented (x3) Psychiatric: No: Agitated Labs: CBC, BMP 10/29/18 06:05 10/31/18 05:50 INR, PTT INR 1.34 (0.83-1.09) H 10/16/18 16:54 Assessment/Plan ECG: organized atrial activity: likely PAT with APCs, no definite flutter present. no fib. LVH with repol abn unchanged vs prior CXR: clear lungs Echo 07/2018 inf wall akinetic, other phillip severely hypokinetic, LV mildly dilated, RV function moderately reduced, LV function severely reduced, moderate MR, EF 30% Echo 12/2016: TDS. nl LV size/EF. mild LVH. grade 2 d.d., hi E/e' = high LAP. nl RV. mild LAE. mild-mod MR, mod TR. mild pHTN (46 mmHg) [facility] 2015: unchanged 70-80% distal RCA lesion. patent mLAD stent. 80-90% pLCX-- [employer] KAREN tele: NSR alt with PAT a/p: 63 yo female hx cad/pci, hyperthyroidism with associated tachycardia, palpitations, unintentional wt loss, acute on chronic labile HTN with mult med intolerances, mildly decompensated diast chf, and new LE edema (out of proportion to the degree of CHF), p/w le edema,sob. 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 pt diureses briskly to iv lasix (100mg) here. ? will be able to maintain volume status with po torsemide +/- metolazone, and will not need maintenance HD. plan is to optimize her volume status as much as possible in next couple weeks (which will also help cardiac output and minimize gut edema /enhance bioavailability of po diuretics), then see if she can maintain without continued HD/UF (hi risk of permacath infection given chronic uncontrolled DM). - ? improvement in thyroid fxn will help as well (TSH just starting to come up finally) - start torsemide 100 po daily now (stop iv lasix), to observe diuretic response. low threshold to add metolazone. - bb dose limited by new hypotension/dizziness--has changed metoprolol succ to coreg CR and insists this causes her less dizziness. cont same coreg - holding hydral, NTG patch (hypotension) - not on SHAN/ARB in setting of ckd obstructive uropathy, OBI on CKD: -probably new baseline creatinine in 3-3.3 range based on recent labs trends recently bumped to 3.5 as outpt--? sec to obstruction -s/p nephrostomy tubes 10/19, creat rising sec to cardiorenal syndrome -now on HD hyperthyroidism, sinus tach, PAT: - intolerant of methimazole (elevated LFTs) - s/p radio-I ablation - high burden of ATach with LV systolic dysfunction, now with new afib - low dose PTU resumed, patient tolerating (pt self-discontinued it at home for nausea) - metopr high dose appeared to control PAT burden better than carvedilol, however caused hypotension/dizzy and pt changed back. she declines changing back to metoprolol. (previously intolerant of atenolol, propranolol). - no amiodarone in light of uncontrolled hyperthyroidism. no digoxin in light of very low GFR. no CCB in light of systolic dysfxn and previous intolerance ( edema) - given low bp trend and weakness/dizziness, coreg CR was decreased to 40 daily dosing (pt with longstanding HTN baseline bp 140s-160s, often higher--may not tolerate bp 100-110) - TSH finally starting to come up - will consider ablation once renal fxn is stabilized, though doubt she is a candidate in current condition (tenuous HF status, uncontrolled hyperthyroidism) - given no fib present, and no definitive atr flutter thus far, will defer AC for now. LE swelling: - started at time of hyperthyroidism, and remains out of proportion to HF findings - responded well to wraps - diuresis as above Elevated troponin - borderline trop similar to prior baseline values, flat trend--not c/w acs. - sec to HF/CKD labile HTN: -mult med intolerances in past -bp stable currently CAD, prior NSTEMI/PCI: -holding DAPT (aspirin/effient) s/p perc nephrostomy tube placement 10/19, pink/ red urine noted, holding -cont home statin (max tolerated dose rosuva 20 with drug holidays), zetia -bb as bp tolerates
[2018-10-31 09:31] LABS: HEMATOCRIT 32.1 % (32.4-45.2); HEMOGLOBIN 10.5 GM/dL (10.7-15.3); MCH 24.8 pg (25.7-33.7); MCHC 32.6 g/dl (32.0-36.0); MEAN CELL VOLUME 75.9 fl (80-96); MEAN PLT VOLUME 8.8 fl (7.5-11.1); PLATELET COUNT 127 K/MM3 (134-434); RBC 4.23 M/mm3 (3.60-5.2); RDW 16.1 % (11.6-15.6); WHITE BLOOD COUNT 4.1 K/mm3 (4.0-10.0)
[2018-10-31 09:53] LABS: ALBUMIN 2.9 g/dl (3.4-5.0); ALK PHOS 160 U/L (45-117); BILIRUBIN,TOTAL 0.8 mg/dL (0.2-1); SGOT/AST 47 U/L (15-37); SGPT/ALT 25 U/L (13-61); TOT PROT 6.5 g/dl (6.4-8.2)
--- NOTE | 2018-10-31 11:19 | PN ---
Progress Note (short form) - Note Progress Note: Renal follow up for OBI/CKD Pt seen and examined at the bedside awake and alert no acute complaints making urine no sob, cp, abd pain had dialysis on wednesday Vital Signs Temperature 98 F 10/31/18 09:00 Pulse Rate 106 H 10/31/18 09:00 Respiratory Rate 18 10/31/18 09:00 Blood Pressure 137/82 10/31/18 09:00 O2 Sat by Pulse Oximetry (%) 99 10/31/18 10:00 Intake & Output 10/28/18 10/29/18 10/30/18 10/31/18 23:59 23:59 23:59 23:59 Intake Total 6383 167 6252 Output Total 300 940 70 40 Balance 980 -120 990 -40 Weight 102.115 kg 100.301 kg 99.45 kg 99.592 kg NAD RRR, no M/R CTA ++++ edema in LE CBC, BMP 10/31/18 05:50 10/31/18 05:50 Current Medications Acetaminophen (Tylenol -) 500 mg PO Q6H PRN PRN Reason: PAIN Last Admin: 10/30/18 05:41 Dose: 500 mg Aspirin (Asa -) 81 mg PO DAILY [facility] Last Admin: 10/30/18 10:09 Dose: 81 mg Carvedilol (Coreg Cr -) 40 mg PO DAILY [facility] Last Admin: 10/30/18 12:08 Dose: 40 mg Cholecalciferol (Vitamin D3 -) 5,000 unit PO DAILY [facility] Last Admin: 10/30/18 12:08 Dose: 5,000 unit Clonazepam (Klonopin -) 0.5 mg PO QID [facility] Last Admin: 10/30/18 22:00 Dose: 0.5 mg Docusate Sodium (Colace -) 100 mg PO DAILY [facility] Last Admin: 10/30/18 10:09 Dose: Not Given Ezetimibe (Zetia -) 10 mg PO DAILY [facility] Last Admin: 10/30/18 10:13 Dose: Not Given Furosemide (Lasix Injection -) 100 mg IVPUSH DAILY [facility] Last Admin: 10/30/18 10:09 Dose: 100 mg Glycerin (Glycerin Suppository Adult -) 1 each RC DAILY PRN PRN Reason: CONSTIPATION Heparin Sodium (Porcine) (Heparin -) 5,000 unit SQ TID [facility] Last Admin: 10/31/18 06:20 Dose: Not Given Sodium Chloride (Normal Saline -) 250 mls @ 3,000 mls/hr IV PRN PRN PRN Reason: Hypotension during Dialysis Stop: 10/31/18 18:35 Insulin Aspart (Novolog Vial Sliding Scale -) 1 vial SQ [facility]; Protocol Last Admin: 10/31/18 06:20 Dose: Not Given Insulin Detemir (Levemir Vial) 5 units SQ HS [facility] Last Admin: 10/30/18 22:00 Dose: 5 units Non-Formulary Medication (Fluticasone/Vilanterol [Breo Ellipta 100-25 Mcg Inh]) 1 each IH DAILY [facility] Last Admin: 10/30/18 10:16 Dose: 1 each Ondansetron HCl (Zofran Injection) 4 mg IVPUSH Q6H PRN PRN Reason: NAUSEA AND/OR VOMITING Polyethylene Glycol (Miralax (For Daily Use) -) 17 gm PO DAILY [facility] Last Admin: 10/30/18 10:12 Dose: Not Given Prasugrel (Effient -) 10 mg PO DAILY [facility] Last Admin: 10/30/18 10:15 Dose: 10 mg Propylthiouracil (Ptu -) 100 mg PO BID [facility] Last Admin: 10/30/18 22:00 Dose: 100 mg Rosuvastatin Calcium (Crestor -) 10 mg PO HS [facility] Last Admin: 10/30/18 22:00 Dose: 10 mg Senna (Senna -) 2 tab PO HS PRN PRN Reason: CONSTIPATION 63 yo F PMx DM, HTN, HLD, [place] in 2012 s/p stents, CABG, Afib, asthma, hyperthyroidism s/p STEINBERG, CKD, anemia with mult med intolerances, with CP and palpitations #OBI on CKD with unilateral obstruction now requiring dialysis #Acute on chronic CHF #Hypertension #Anemia #Hyperthyroidism will plan for additional Hd with UF today goal is to achieve evolemia pt will need placement in outpatient HD as OBI requiring dialysis once significant volume loss is achieved can check CrCl and access for for HD going forward Continue Daily Diuretics continue treatment of hyperthyroidism Goyo Smith DO
--- NOTE | 2018-10-31 13:57 | PN ---
Physical Exam: SUBJECTIVE: Patient seen and examined at bedside- no acute events overnight. patient is feeling well; denies any CP/SOB/N/V fevers or chills feels her breathing is improving. OBJECTIVE: Vital Signs Period Temp Pulse Resp BP Sys/Shankar Pulse Ox Last 24 Hr 97.5 F-98.7 F 67-106 16-18 100-137/47-82 95-99 GENERAL: The patient is awake, alert, and fully oriented, in no acute distress. EYES:no scleral icterus s. NECK: diminishng JVD LUNGS: CTA B/L; no rales, rhonchi or wheezing HEART: Regular rate and rhythm, S1, S2 without murmur, rub or gallop. ABDOMEN: Soft, distended +BS in all 4 quadrants . EXTREMITIES: 2+ pulses, warm, well-perfused,3+ edema B/L. SKIN: Warm, dry, normal turgor, no rashes or lesions noted Laboratory Results - last 24 hr 10/30/18 10/30/18 10/31/18 17:05 21:46 05:41 WBC RBC Hgb Hct MCV MCH MCHC RDW Plt Count MPV Sodium Potassium Chloride Carbon Dioxide Anion Gap BUN Creatinine Creat Clearance w eGFR POC Glucometer 148 224 153 Random Glucose Calcium Phosphorus Magnesium Total Bilirubin AST ALT Alkaline Phosphatase Total Protein Albumin 10/31/18 10/31/18 10/31/18 05:50 05:50 11:33 WBC 4.1 RBC 4.23 Hgb 10.5 L Hct 32.1 L MCV 75.9 L MCH 24.8 L MCHC 32.6 RDW 16.1 H Plt Count 127 L MPV 8.8 Sodium 137 Potassium 3.9 Chloride 99 Carbon Dioxide 29 Anion Gap 9 BUN 46 H Creatinine 2.8 H Creat Clearance w eGFR 17.07 POC Glucometer 136 Random Glucose 158 H Calcium 8.1 L Phosphorus 2.2 L Magnesium 1.8 Total Bilirubin 0.8 AST 47 H ALT 25 Alkaline Phosphatase 160 H Total Protein 6.5 Albumin 2.9 L Active Medications Generic Name Dose Route Start Last Admin Trade Name Freq PRN Reason Stop Dose Admin Acetaminophen 500 mg 10/27/18 17:53 10/30/18 05:41 Tylenol - PO 500 mg Q6H PRN Administration PAIN Aspirin 81 mg 10/30/18 10:00 10/30/18 10:09 Asa - PO 81 mg DAILY [facility] Administration Carvedilol 40 mg 10/28/18 10:00 10/30/18 12:08 Coreg Cr - PO 40 mg DAILY [facility] Administration Cholecalciferol 5,000 unit 10/28/18 10:00 10/30/18 12:08 Vitamin D3 - PO 5,000 unit DAILY [facility] Administration Clonazepam 0.5 mg 10/27/18 18:00 10/30/18 22:00 Klonopin - PO 0.5 mg QID [facility] Administration Docusate Sodium 100 mg 10/28/18 10:00 10/30/18 10:09 Colace - PO Not Given DAILY [facility] Ezetimibe 10 mg 10/28/18 10:00 10/30/18 10:13 Zetia - PO Not Given DAILY [facility] Glycerin 1 each 10/28/18 15:32 Glycerin Suppository Adult - RC DAILY PRN CONSTIPATION Heparin Sodium (Porcine) 5,000 unit 10/27/18 22:00 10/31/18 06:20 Heparin - SQ Not Given TID [facility] Sodium Chloride 250 mls @ 3,000 mls/hr 10/30/18 18:35 Normal Saline - IV 10/31/18 18:35 PRN PRN Hypotension during Dialysis Insulin Aspart 1 vial 10/27/18 22:00 10/31/18 11:35 Novolog Vial Sliding Scale - SQ Not Given ACHS [facility] Protocol Insulin Detemir 5 units 10/29/18 08:58 10/30/18 22:00 Levemir Vial SQ 5 units HS [facility] Administration Non-Formulary Medication 1 each 10/28/18 10:00 10/31/18 11:35 Fluticasone/Vilanterol [Breo Ellipta 100-25 Mcg Inh] IH 1 each DAILY [facility] Administration Ondansetron HCl 4 mg 10/27/18 17:16 Zofran Injection IVPUSH Q6H PRN NAUSEA AND/OR VOMITING Polyethylene Glycol 17 gm 10/29/18 10:00 10/30/18 10:12 Miralax (For Daily Use) - PO Not Given DAILY [facility] Prasugrel 10 mg 10/30/18 10:00 10/30/18 10:15 Effient - PO 10 mg DAILY [facility] Administration Propylthiouracil 100 mg 10/27/18 22:00 10/30/18 22:00 Ptu - PO 100 mg BID [facility] Administration Rosuvastatin Calcium 10 mg 10/27/18 22:00 10/30/18 22:00 Crestor - PO 10 mg HS [facility] Administration Senna 2 tab 10/27/18 17:53 Senna - PO HS PRN CONSTIPATION Torsemide 100 mg 11/01/18 10:00 Demadex - PO DAILY [facility] ASSESSMENT/PLAN: Patient is a 63 year old female with history of CHF, NH s/p stents, CAD, DMII, hyperthyroidism, CKD stage V, HTN, HLD, presents with complaint of chest tightness, palpitations. Afib: -patient started on heparin drip here -Coreg 40 daily; which was decreased from 40 BID -continue tele monitoring; patient still having episodes of tachycardia; but less frequent since the increase in PTU dose Hyperthyroidism: -latest free t4 1.07 -on PTU 100 BID; tolerating -c/w beta isrrael therapy Caliectasis: -patient had right nephrostomy tube placed -monitor output CKD stage V: -baseline Cr 3.2; currently 2.8 this morning- -patient had dialysis yesterday is going for AV fistula placement tomorrow with possibly anther HD session -arranging outpatient dialysis CHF; -monitor daily weights -I's and O's -torsemide 100 daily DM -decreased levemir dosing from 20 units HS to 5 units HS as patients renal function is worsening and shes is becoming slightly more hypoglycemic -ISS ACHS -BGMS ACHS CAD -holding aspirin and prasugrel HTN -c/w coreg 40 daily F/E/N -no fluids -replete electrolytes accordingly -diabetic diet PPX: heparin drip for Afib Problem List - Problems (1) A-fib Code(s): I48.91 - UNSPECIFIED ATRIAL FIBRILLATION (2) Hyperthyroidism Code(s): E05.90 - THYROTOXICOSIS, UNSP WITHOUT THYROTOXIC CRISIS OR STORM (3) Acute pulmonary edema with congestive heart failure Code(s): I50.1 - LEFT VENTRICULAR FAILURE, UNSPECIFIED Visit type - Emergency Visit Emergency Visit: Yes ED Registration Date: 10/16/18 Care time: The patient presented to the Emergency Department on the above date and was hospitalized for further evaluation of their emergent condition. - New Patient This patient is new to me today: No - Critical Care Critical Care patient: No
--- NOTE | 2018-10-31 14:23 | PN ---
Teaching Attending Note Name of Resident: Charmaine Banda ATTENDING PHYSICIAN STATEMENT I saw and evaluated the patient. I reviewed the resident's note and discussed the case with the resident. I agree with the resident's findings and plan as documented. SUBJECTIVE:feeling better today. denies CP, SOB, fever, chills, N/V/C/D OBJECTIVE: Last Vital Signs Temp Pulse Resp BP Pulse Ox 98 F 74 18 129/69 99 10/31/18 09:00 10/31/18 12:26 10/31/18 12:26 10/31/18 12:26 10/31/18 10:00 Intake & Output 10/28/18 10/29/18 10/30/18 10/31/18 23:59 23:59 23:59 23:59 Intake Total 7932 716 9158 Output Total 300 940 70 40 Balance 980 -120 990 -40 Weight 225 lb 2 oz 221 lb 2 oz 219 lb 4 oz 219 lb 9 oz General NAD Lungs cta B/L no wheezing/rales/rhonchi Extremities 2+ pitting edema B/L ASSESSMENT AND PLAN: 63 yo F PMx DM, HTN, HLD, [place] in 2012 s/p stents, CABG, Afib, asthma, hyperthyroidism s/p STEINBERG, CKD, anemia with mult med intolerances, with CP and palpitations 1. Acute on Chronic systolic CHF exacerbation- dry weight 205. s/p HD initiation. weight continues to improve. on lasix 100mg daily. daily weights, monitor electrolytes. cardio on board. 2. Afib with RVR- multiple intolerances to medications. now in NSR. on max doses of coreg at this time. off anticoagluation as no longer in Afib and likely induced from hyperthyroid state. cont cardiac monitoring. limited on alternative treatment options. cardio on board 3. Thyrotoxicosis-s/p STEINBEGR in the past. on split doses of PTU as pt not tolerating. TSH improving slowly. endo on board. 4. Obstructive uropathy due to nephrolithasis- s/p R nephrostomy tube on 10/19. hydro shown to have resolved. nephrostomy tube management per Uro 5. acute on CKD-prerenal and obstructive uropathy. mild improvement but remains volume overloaded. s/p HD initiation. plan for fistual placement prior to D/c, planned for 11/02. outpatient HD being arranged. will be 3x/week initially and then determined schedule per nephro. vasc surg and Nephro on board. 6. Tropinemia- due to demand. flat trend. had recent PCI and no repeat CP since then. DAPT held for nephrostomy placement will d/w cardio about re-starting at htis time. 7. DM- insulin requirements improving as renal function improving. on levemir 5 units HS. will cont for now and titrate as needed.cont BGM, iSS. 8. DVT ppx- hep sq 9. spoke with daughter present. all questions answered. verbalized understanding and agreement
[2018-10-31] MEDS: clonazePAM 0.5 MG TABLET PO SCH ×3 (15:10→22:16)
[2018-10-31] MEDS: FUROSEMIDE 100 MG/10 ML INJECTABLE VIAL IVPUSH SCH (16:11)
[2018-10-31] MEDS: PROPYLTHIOURACIL 50 MG TABLET (UD) PO SCH ×2 (17:23→22:15)
[2018-10-31] MEDS ORDERED: PT OWN MED DRAWER 7, Y5N ONE ×2 (18:01→22:07)
[2018-10-31] MEDS: ASPIRIN 81 MG CHEWABLE TABLETS PO SCH (18:07)
[2018-10-31] MEDS: DOCUSATE SODIUM 100 MG CAPSULE (FP) PO SCH (18:08)
[2018-10-31] MEDS: PRASUGREL HCL 10 MG TAB PO SCH (18:09)
[2018-10-31] MEDS: CARVEDILOL PHOSPHATE CR 40 MG CAPSULE (FP) PO SCH (18:09)
[2018-10-31] MEDS: CHOLECALCIFEROL (VITAMIN D3) 1,000 UNIT TABLET (FP) PO SCH (18:10)
[2018-10-31] MEDS: POLYETHYLENE GLYCOL 3350 119 GM BTL PO SCH (18:11)
[2018-10-31] MEDS: EZETIMIBE 10 MG TABLET (FP) PO SCH (18:12)
--- NOTE | 2018-10-31 20:20 | PN ---
Progress Note (short form) - Note Progress Note: tolerating bid ptu doses Abnormal Lab Results 10/31/18 10/31/18 05:50 05:50 Hgb 10.5 L Hct 32.1 L MCV 75.9 L MCH 24.8 L RDW 16.1 H Plt Count 127 L BUN 46 H Creatinine 2.8 H Random Glucose 158 H Calcium 8.1 L Phosphorus 2.2 L AST 47 H Alkaline Phosphatase 160 H Albumin 2.9 L Laboratory Results - last 24 hr 10/30/18 10/31/18 10/31/18 21:46 05:41 05:50 WBC RBC Hgb Hct MCV MCH MCHC RDW Plt Count MPV Sodium 137 Potassium 3.9 Chloride 99 Carbon Dioxide 29 Anion Gap 9 BUN 46 H Creatinine 2.8 H Creat Clearance w eGFR 17.07 POC Glucometer 224 153 Random Glucose 158 H Calcium 8.1 L Phosphorus 2.2 L Magnesium 1.8 Total Bilirubin 0.8 AST 47 H ALT 25 Alkaline Phosphatase 160 H Total Protein 6.5 Albumin 2.9 L 10/31/18 10/31/18 10/31/18 05:50 11:33 16:53 WBC 4.1 RBC 4.23 Hgb 10.5 L Hct 32.1 L MCV 75.9 L MCH 24.8 L MCHC 32.6 RDW 16.1 H Plt Count 127 L MPV 8.8 Sodium Potassium Chloride Carbon Dioxide Anion Gap BUN Creatinine Creat Clearance w eGFR POC Glucometer 136 124 Random Glucose Calcium Phosphorus Magnesium Total Bilirubin AST ALT Alkaline Phosphatase Total Protein Albumin Laboratory Tests 10/29/18 10/29/18 06:05 06:05 TSH 0.06 L Free T4 0.92 tsh will lag while improving thyroidlevels Current Active Problems A-fib (Acute) Acute on chronic heart failure (Acute) Hyperthyroidism (Acute) plan: ptu 50 bid dose once tsh above 5 will dc ptu Problem List - Problems (1) A-fib Code(s): I48.91 - UNSPECIFIED ATRIAL FIBRILLATION (2) Acute on chronic heart failure Code(s): I50.9 - HEART FAILURE, UNSPECIFIED Qualifiers: (3) Hyperthyroidism Code(s): E05.90 - THYROTOXICOSIS, UNSP WITHOUT THYROTOXIC CRISIS OR STORM (4) Acute CHF Code(s): I50.9 - HEART FAILURE, UNSPECIFIED Qualifiers: Heart failure type: systolic Qualified Code(s): I50.21 - Acute systolic ( congestive) heart failure (5) Acute exacerbation of asthma with allergic rhinitis Code(s): J45.901 - UNSPECIFIED ASTHMA WITH (ACUTE) EXACERBATION (6) Acute on chronic kidney failure Code(s): N17.9 - ACUTE KIDNEY FAILURE, UNSPECIFIED; N18.9 - CHRONIC KIDNEY DISEASE, UNSPECIFIED Qualifiers: Chronic kidney disease stage: stage 5, not on chronic dialysis (7) Acute pulmonary edema with congestive heart failure Code(s): I50.1 - LEFT VENTRICULAR FAILURE, UNSPECIFIED
--- NOTE | 2018-10-31 21:11 | PN ---
Progress Note (short form) - Note Progress Note: Exam unchanged. tolerating dialysis. Vein mapping not completed, no report. Planning for AV fistula creation once Duplex is read. Problem List - Problems (1) Acute on chronic kidney failure Code(s): N17.9 - ACUTE KIDNEY FAILURE, UNSPECIFIED; N18.9 - CHRONIC KIDNEY DISEASE, UNSPECIFIED Qualifiers: Chronic kidney disease stage: stage 5, not on chronic dialysis
[2018-10-31] MEDS: ROSUVASTATIN CA 10 MG TABLET (FP) PO SCH (22:18)
[2018-10-31] MEDS: INSULIN (LEVEMIR) 100 UNITS/ML UNITS SQ SCH (22:29)
[2018-10-31 23:15] LABS: HBSAG SCREEN Negative (Negative); HEP A AB, IGM Negative (Negative); HEP B CORE AB, TOT Negative (Negative)
[2018-11-01] MEDS: HEPARIN NA (PORCINE) 5,000 UNITS/ML 1ML VIAL SQ SCH ×3 (06:00→22:55)
[2018-11-01] MEDS: INSULIN SLIDING SCALE (NOVOLOG) 1 VIAL SQ SCH ×4 (06:03→23:06)
[2018-11-01 08:32] LABS: ANION GAP 9 MMOL/L (8-16); BLOOD UREA NITROGEN 35 mg/dL (7-18); CALCIUM 8.5 mg/dL (8.5-10.1); CHLORIDE 100 mmol/L (98-107); CO2 28 mmol/L (21-32); CREATININE 2.3 mg/dL (0.55-1.3); GLUCOSE,RANDOM 124 mg/dL (74-106); MAGNESIUM 1.8 mg/dL (1.8-2.4); PHOSPHOROUS 2.2 mg/dL (2.5-4.9); POTASSIUM 3.8 mmol/L (3.5-5.1); SODIUM 138 mmol/L (136-145)
[2018-11-01] MEDS ORDERED: POTASSIUM CHLORIDE TABS 20 MEQ TABLET.ER (FP) PO ONE (08:39)
[2018-11-01] MEDS ORDERED: NAPH,MB-DB/K PH,MBDB POWDER PACKET PO ONE (09:24)
--- NOTE | 2018-11-01 09:25 | PN ---
Teaching Attending Note Name of Resident: Charmaine Banda ATTENDING PHYSICIAN STATEMENT I saw and evaluated the patient. I reviewed the resident's note and discussed the case with the resident. I agree with the resident's findings and plan as documented with exceptions below. SUBJECTIVE: Patient seen and examined. overall breathing improved. weakness and swelling improved. Feels better, no chest pain, palpitations, or dizziness currently. OBJECTIVE: Vital Signs Period Temp Pulse Resp BP Sys/Shankar Pulse Ox Last 24 Hr 97.4 F-97.9 F 56-119 18-20 104-130/55-80 99-99 Intake & Output 10/29/18 10/30/18 10/31/18 11/01/18 23:59 23:59 23:59 23:59 Intake Total 820 1060 350 240 Output Total 940 70 130 40 Balance -120 990 220 200 Weight 221 lb 2 oz 219 lb 4 oz 219 lb 9 oz 219 lb 4 oz General; sitting in bed in no acute distress neck: soft supple, improved neck vein distension Chest: decreased breath sounds at bases Abdomen: soft, distended, NT Extremities: overall unchanged to some improvement in pedal pitting edema from before Home Medications Medication Instructions Recorded Aspirin [ASA -] 81 mg PO DAILY 09/07/18 Cholecalciferol (Vitamin D3) 5,000 unit PO DAILY 09/07/18 [Vitamin D -] Clonazepam 0.5 mg PO QID 09/07/18 Ezetimibe [Zetia] 10 mg PO DAILY 09/07/18 Ferrous Gluconate [Iron] 256 mg PO DAILY 09/07/18 Fluticasone/Vilanterol [Breo 1 each IH DAILY 09/07/18 Ellipta 100-25 Mcg INH] Insulin Aspart [Novolog] 10 unit SQ ASDIR 09/07/18 Insulin Glargine,Hum.rec.anlog 0 unit SQ ASDIR 09/07/18 [Lantus] Prasugrel HCl [Effient] 10 mg PO DAILY 09/07/18 Rosuvastatin Calcium [Crestor] 10 mg PO DAILY 09/07/18 Insulin Sliding Scale [Novolog 1 vial SQ ACHS units 09/15/18 Vial Sliding Scale -] Carvedilol Phosphate [Coreg Cr -] 40 mg PO DAILY 10/17/18 Meclizine HCl 25 mg PO Q6H PRN 10/17/18 Metolazone 2.5 mg PO DAILY 10/17/18 Nitroglycerin Patch [Nitro-Dur] 0.2 mg TD DAILY 10/17/18 Torsemide 20 mg PO TID 10/17/18 Active Medications Acetaminophen (Tylenol -) 500 mg PO Q6H PRN PRN Reason: PAIN Last Admin: 10/30/18 05:41 Dose: 500 mg Aspirin (Asa -) 81 mg PO DAILY [facility] Last Admin: 10/31/18 18:07 Dose: 81 mg Carvedilol (Coreg Cr -) 40 mg PO DAILY [facility] Last Admin: 10/31/18 18:09 Dose: 40 mg Cholecalciferol (Vitamin D3 -) 5,000 unit PO DAILY [facility] Last Admin: 10/31/18 18:10 Dose: 5,000 unit Clonazepam (Klonopin -) 0.5 mg PO QID [facility] Last Admin: 10/31/18 22:16 Dose: 0.5 mg Docusate Sodium (Colace -) 100 mg PO DAILY [facility] Last Admin: 10/31/18 18:08 Dose: Not Given Ezetimibe (Zetia -) 10 mg PO DAILY [facility] Last Admin: 10/31/18 18:12 Dose: 10 mg Glycerin (Glycerin Suppository Adult -) 1 each RC DAILY PRN PRN Reason: CONSTIPATION Heparin Sodium (Porcine) (Heparin -) 5,000 unit SQ TID [facility] Last Admin: 11/01/18 06:00 Dose: 5,000 unit Sodium Chloride (Normal Saline -) 250 mls @ 3,000 mls/hr IV PRN PRN PRN Reason: Hypotension during Dialysis Stop: 10/31/18 18:35 Insulin Aspart (Novolog Vial Sliding Scale -) 1 vial SQ [facility]; Protocol Last Admin: 11/01/18 06:03 Dose: Not Given Insulin Detemir (Levemir Vial) 5 units SQ HS [facility] Last Admin: 10/31/18 22:29 Dose: 5 units Non-Formulary Medication (Fluticasone/Vilanterol [Breo Ellipta 100-25 Mcg Inh]) 1 each IH DAILY [facility] Last Admin: 10/31/18 11:35 Dose: 1 each Ondansetron HCl (Zofran Injection) 4 mg IVPUSH Q6H PRN PRN Reason: NAUSEA AND/OR VOMITING Polyethylene Glycol (Miralax (For Daily Use) -) 17 gm PO DAILY [facility] Last Admin: 10/31/18 18:11 Dose: Not Given Prasugrel (Effient -) 10 mg PO DAILY [facility] Last Admin: 10/31/18 18:09 Dose: 10 mg Propylthiouracil (Ptu -) 50 mg PO BID [facility] Last Admin: 10/31/18 22:15 Dose: 50 mg Rosuvastatin Calcium (Crestor -) 10 mg PO HS [facility] Last Admin: 10/31/18 22:18 Dose: 10 mg Senna (Senna -) 2 tab PO HS PRN PRN Reason: CONSTIPATION Torsemide (Demadex -) 100 mg PO DAILY [facility] Laboratory Results - last 24 hr 10/29/18 10/31/18 10/31/18 06:05 05:50 05:50 WBC 4.1 RBC 4.23 Hgb 10.5 L Hct 32.1 L MCV 75.9 L MCH 24.8 L MCHC 32.6 RDW 16.1 H Plt Count 127 L MPV 8.8 Sodium Potassium Chloride Carbon Dioxide Anion Gap BUN Creatinine Creat Clearance w eGFR POC Glucometer Random Glucose Calcium Phosphorus Magnesium Total Bilirubin 0.8 AST 47 H ALT 25 Alkaline Phosphatase 160 H Total Protein 6.5 Albumin 2.9 L TSH Hep A IgM Ab Confirm Negative Hepatitis A Ab Total Positive H Hep Bs Antigen Negative Hep Bs Antibody Non reactive Hep B Core Total Ab Negative 10/31/18 10/31/18 10/31/18 11:33 16:53 22:12 WBC RBC Hgb Hct MCV MCH MCHC RDW Plt Count MPV Sodium Potassium Chloride Carbon Dioxide Anion Gap BUN Creatinine Creat Clearance w eGFR POC Glucometer 136 124 213 Random Glucose Calcium Phosphorus Magnesium Total Bilirubin AST ALT Alkaline Phosphatase Total Protein Albumin TSH Hep A IgM Ab Confirm Hepatitis A Ab Total Hep Bs Antigen Hep Bs Antibody Hep B Core Total Ab 11/01/18 11/01/18 05:53 07:15 WBC RBC Hgb Hct MCV MCH MCHC RDW Plt Count MPV Sodium 138 Potassium 3.8 Chloride 100 Carbon Dioxide 28 Anion Gap 9 BUN 35 H Creatinine 2.3 H Creat Clearance w eGFR 21.42 POC Glucometer 137 Random Glucose 124 H Calcium 8.5 Phosphorus 2.2 L Magnesium 1.8 Total Bilirubin AST ALT Alkaline Phosphatase Total Protein Albumin TSH 0.53 Hep A IgM Ab Confirm Hepatitis A Ab Total Hep Bs Antigen Hep Bs Antibody Hep B Core Total Ab ASSESSMENT AND PLAN: 63 yo F PMx DM, HTN, HLD, [place] in 2012 s/p stents, CABG, Afib, asthma, hyperthyroidism s/p I-131, CKD, anemia with multi med intolerances, with Chest Pain and palpitations -New severe LV systolic dysfunction,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 -Atrial tachycardia with RVR -Hyperthyroidism s/p I-131 -Obstructive uropathy from urinary tract anomaly s/p Right nephrostomy tube placement 10/19 -Acute on CKD stage III, suspect suspect cardiorenal from poor perfusion, started on HD 10/27 via permacath -Elevated troponin, suspect demand induced from above -CAD s/p PCI 2012, s/p CABG -Asthma -Anemia Plan: dry weight 205. s/p HD started on 10/27. Volume status improving. Nephrology/Cardiology input noted. Torsemide 100 mg daily. Discussed with Dr. Cid. Plan for AV fistula placement prior to dc. Will be assess for need for ongoing HD over next few months based on volume status and renal function. Vascular surgery input noted. Venous mapping not done, follow up Duplex results. HR overall improved. Reports better tolerance to Coreg, continue for now. TSH continues to improve. Continue PTU BID, Endocrine input appreciated. Hydronephrosis resolved on repeat imaging. Plan per urology. Troponin flate, suspect demand mediated. had recent PCI and no repeat CP since then. DAPT held for nephrostomy placement will d/w cardio about re-starting. Levemir 5 units hs for now, ISS, diabetic diet. Monitor insulin requirements while renal function improves. DVTPPX heparin Dispo pending HD arrangements and improvement in volume status in 24-48 hours Plan discussed with patient and daughter at bedside in detail, all questions answered.
--- NOTE | 2018-11-01 09:34 | PN ---
Progress Note (short form) - Note Progress Note: Progress Note, Physician Chief Complaint: chf History of Present Illness: no chest pain, palps, sob. stable edema no cigs Current Medications Acetaminophen (Tylenol -) 500 mg PO Q6H PRN PRN Reason: PAIN Last Admin: 10/30/18 05:41 Dose: 500 mg Aspirin (Asa -) 81 mg PO DAILY [facility] Last Admin: 10/31/18 18:07 Dose: 81 mg Carvedilol (Coreg Cr -) 40 mg PO DAILY [facility] Last Admin: 10/31/18 18:09 Dose: 40 mg Cholecalciferol (Vitamin D3 -) 5,000 unit PO DAILY [facility] Last Admin: 10/31/18 18:10 Dose: 5,000 unit Clonazepam (Klonopin -) 0.5 mg PO QID [facility] Last Admin: 10/31/18 22:16 Dose: 0.5 mg Docusate Sodium (Colace -) 100 mg PO DAILY [facility] Last Admin: 10/31/18 18:08 Dose: Not Given Ezetimibe (Zetia -) 10 mg PO DAILY [facility] Last Admin: 10/31/18 18:12 Dose: 10 mg Glycerin (Glycerin Suppository Adult -) 1 each RC DAILY PRN PRN Reason: CONSTIPATION Heparin Sodium (Porcine) (Heparin -) 5,000 unit SQ TID [facility] Last Admin: 11/01/18 06:00 Dose: 5,000 unit Sodium Chloride (Normal Saline -) 250 mls @ 3,000 mls/hr IV PRN PRN PRN Reason: Hypotension during Dialysis Stop: 10/31/18 18:35 Insulin Aspart (Novolog Vial Sliding Scale -) 1 vial SQ [facility]; Protocol Last Admin: 11/01/18 06:03 Dose: Not Given Insulin Detemir (Levemir Vial) 5 units SQ HS [facility] Last Admin: 10/31/18 22:29 Dose: 5 units Non-Formulary Medication (Fluticasone/Vilanterol [Breo Ellipta 100-25 Mcg Inh]) 1 each IH DAILY [facility] Last Admin: 10/31/18 11:35 Dose: 1 each Ondansetron HCl (Zofran Injection) 4 mg IVPUSH Q6H PRN PRN Reason: NAUSEA AND/OR VOMITING Polyethylene Glycol (Miralax (For Daily Use) -) 17 gm PO DAILY [facility] Last Admin: 10/31/18 18:11 Dose: Not Given Prasugrel (Effient -) 10 mg PO DAILY [facility] Last Admin: 10/31/18 18:09 Dose: 10 mg Propylthiouracil (Ptu -) 50 mg PO BID [facility] Last Admin: 10/31/18 22:15 Dose: 50 mg Rosuvastatin Calcium (Crestor -) 10 mg PO HS [facility] Last Admin: 10/31/18 22:18 Dose: 10 mg Senna (Senna -) 2 tab PO HS PRN PRN Reason: CONSTIPATION Torsemide (Demadex -) 100 mg PO DAILY [facility] - Objective Vital Signs Period Temp Pulse Resp BP Sys/Shankar Pulse Ox Last 24 Hr 97.4 F-97.9 F 56-119 18-20 104-130/55-80 99-99 Constitutional: Yes: No Distress, Calm Eyes: No: Sclera Icterus HENT: No: Nasal Congestion Cardiovascular: Yes: Regular Rate and Rhythm, S1, S2, Other (PMI non diplaced). No: Gallop, Murmur Respiratory: Yes: CTA Bilaterally. No: Accessory Muscle Use, Rales, Wheezes Gastrointestinal: Yes: Normal Bowel Sounds, Soft. No: Tenderness Musculoskeletal: Yes: Other (No kyphosis) Extremities: No: Cold Edema: Yes 1+ jag lower ext Integumentary: No: Jaundice Neurological: Yes: Alert, Oriented (x3) Psychiatric: No: Agitated Assessment/Plan ECG: organized atrial activity: likely PAT with APCs, no definite flutter present. no fib. LVH with repol abn unchanged vs prior CXR: clear lungs Echo 07/2018 inf wall akinetic, other phillip severely hypokinetic, LV mildly dilated, RV function moderately reduced, LV function severely reduced, moderate MR, EF 30% Echo 12/2016: TDS. nl LV size/EF. mild LVH. grade 2 d.d., hi E/e' = high LAP. nl RV. mild LAE. mild-mod MR, mod TR. mild pHTN (46 mmHg) [facility] 2014: unchanged 70-80% distal RCA lesion. patent mLAD stent. 80-90% pLCX-- [facility]EN tele: sinus a/p: 63 yo female hx cad/pci, hyperthyroidism with associated tachycardia, palpitations, unintentional wt loss, acute on chronic labile HTN with mult med intolerances, mildly decompensated diast chf, and new LE edema (out of proportion to the degree of CHF), p/w le edema,sob. 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 Chen d/w'd dr olsen. pt diureses briskly to iv lasix (100mg) here. ? will be able to maintain volume status with po torsemide +/- metolazone, and will not need maintenance HD. plan is to optimize her volume status as much as possible in next couple weeks (which will also help cardiac output and minimize gut edema/enhance bioavailability of po diuretics), then see if she can maintain without continued HD/UF (hi risk of permacath infection given chronic uncontrolled DM). - ? improvement in thyroid fxn will help as well (TSH just starting to come up finally) - torsemide 100 po daily started today to observe diuretic response. low threshold to add metolazone. - bb dose limited by new hypotension/dizziness--has changed metoprolol succ to coreg CR and insists this causes her less dizziness. cont same coreg - holding hydral, NTG patch (hypotension) - not on SHAN/ARB in setting of ckd obstructive uropathy, OBI on CKD: -probably new baseline creatinine in 3-3.3 range based on recent labs trends recently bumped to 3.5 as outpt--? sec to obstruction -s/p nephrostomy tubes 10/19, creat rising sec to cardiorenal syndrome -now on HD, plan for AV fistula hyperthyroidism, sinus tach, PAT: - intolerant of methimazole (elevated LFTs) - s/p radio-I ablation - high burden of ATach with LV systolic dysfunction, now with new afib - low dose PTU resumed, patient tolerating (pt self-discontinued it at home for nausea) - metopr high dose appeared to control PAT burden better than carvedilol, however caused hypotension/dizzy and pt changed back. she declines changing back to metoprolol. (previously intolerant of atenolol, propranolol). - no amiodarone in light of uncontrolled hyperthyroidism. no digoxin in light of very low GFR. no CCB in light of systolic dysfxn and previous intolerance ( edema) - given low bp trend and weakness/dizziness, coreg CR was decreased to 40 daily dosing (pt with longstanding HTN baseline bp 140s-160s, often higher--may not tolerate bp 100-110) - TSH finally starting to come up - will consider ablation once renal fxn is stabilized, though doubt she is a candidate in current condition (tenuous HF status, uncontrolled hyperthyroidism) - given no fib present, and no definitive atr flutter thus far, will defer AC for now. LE swelling: - started at time of hyperthyroidism, and remains out of proportion to HF findings - responded well to wraps - diuresis, HD as above Elevated troponin - borderline trop similar to prior baseline values, flat trend--not c/w acs. - sec to HF/CKD labile HTN: -mult med intolerances in past -bp stable currently CAD, prior NSTEMI/PCI: -holding DAPT (aspirin/effient) s/p perc nephrostomy tube placement 10/19, DAPT restarted 10/30 -cont home statin (max tolerated dose rosuva 20 with drug holidays), zetia -bb as bp tolerates
[2018-11-01] MEDS: ASPIRIN 81 MG CHEWABLE TABLETS PO SCH (10:54)
[2018-11-01] MEDS: clonazePAM 0.5 MG TABLET PO SCH ×4 (10:54→23:07)
[2018-11-01] MEDS: DOCUSATE SODIUM 100 MG CAPSULE (FP) PO SCH (10:55)
[2018-11-01] MEDS: PRASUGREL HCL 10 MG TAB PO SCH (10:57)
[2018-11-01] MEDS: CARVEDILOL PHOSPHATE CR 40 MG CAPSULE (FP) PO SCH (10:58)
[2018-11-01] MEDS: POLYETHYLENE GLYCOL 3350 119 GM BTL PO SCH (11:00)
[2018-11-01] MEDS: EZETIMIBE 10 MG TABLET (FP) PO SCH (11:01)
[2018-11-01] MEDS: PROPYLTHIOURACIL 50 MG TABLET (UD) PO SCH ×2 (11:01→22:59)
[2018-11-01] MEDS: TORSEMIDE 100 MG TABLET PO SCH (11:07)
[2018-11-01] MEDS: CHOLECALCIFEROL (VITAMIN D3) 1,000 UNIT TABLET (FP) PO SCH (11:55)
--- NOTE | 2018-11-01 12:13 | PN ---
Progress Note (short form) - Note Progress Note: Renal follow up for OBI/CKD pt seen and examined at the bedside complains of generalized weakness no sob, cp, abd pain, N/V/D Vital Signs Temperature 97.6 F 11/01/18 06:28 Pulse Rate 105 H 11/01/18 06:28 Respiratory Rate 18 11/01/18 06:28 Blood Pressure 129/75 11/01/18 06:28 O2 Sat by Pulse Oximetry (%) 99 10/31/18 21:00 Intake & Output 10/29/18 10/30/18 10/31/18 11/01/18 23:59 23:59 23:59 23:59 Intake Total 820 1060 350 690 Output Total 940 70 130 40 Balance -120 990 220 650 Weight 100.301 kg 99.45 kg 99.592 kg 99.45 kg NAD awake and alert neck supple +++ edema in LE CBC, BMP 10/31/18 05:50 11/01/18 07:15 Laboratory Tests 10/27/18 11/01/18 06:00 07:15 Calcium 8.3 L 8.5 Phosphorus 3.1 2.2 L Magnesium 1.7 L 1.8 Current Medications Acetaminophen (Tylenol -) 500 mg PO Q6H PRN PRN Reason: PAIN Last Admin: 10/30/18 05:41 Dose: 500 mg Aspirin (Asa -) 81 mg PO DAILY [facility] Last Admin: 11/01/18 10:54 Dose: 81 mg Carvedilol (Coreg Cr -) 40 mg PO DAILY [facility] Last Admin: 11/01/18 10:58 Dose: 40 mg Cholecalciferol (Vitamin D3 -) 5,000 unit PO DAILY [facility] Last Admin: 11/01/18 11:55 Dose: 5,000 unit Clonazepam (Klonopin -) 0.5 mg PO QID [facility] Last Admin: 11/01/18 10:54 Dose: 0.5 mg Docusate Sodium (Colace -) 100 mg PO DAILY [facility] Last Admin: 11/01/18 10:55 Dose: Not Given Ezetimibe (Zetia -) 10 mg PO DAILY [facility] Last Admin: 11/01/18 11:01 Dose: Not Given Glycerin (Glycerin Suppository Adult -) 1 each RC DAILY PRN PRN Reason: CONSTIPATION Heparin Sodium (Porcine) (Heparin -) 5,000 unit SQ TID [facility] Last Admin: 11/01/18 06:00 Dose: 5,000 unit Sodium Chloride (Normal Saline -) 250 mls @ 3,000 mls/hr IV PRN PRN PRN Reason: Hypotension during Dialysis Stop: 10/31/18 18:35 Insulin Aspart (Novolog Vial Sliding Scale -) 1 vial SQ [facility]; Protocol Last Admin: 11/01/18 11:35 Dose: 2 units Insulin Detemir (Levemir Vial) 5 units SQ HS [facility] Last Admin: 10/31/18 22:29 Dose: 5 units Non-Formulary Medication (Fluticasone/Vilanterol [Breo Ellipta 100-25 Mcg Inh]) 1 each IH DAILY [facility] Last Admin: 11/01/18 10:59 Dose: 1 each Ondansetron HCl (Zofran Injection) 4 mg IVPUSH Q6H PRN PRN Reason: NAUSEA AND/OR VOMITING Polyethylene Glycol (Miralax (For Daily Use) -) 17 gm PO DAILY [facility] Last Admin: 11/01/18 11:00 Dose: Not Given Prasugrel (Effient -) 10 mg PO DAILY [facility] Last Admin: 11/01/18 10:57 Dose: 10 mg Propylthiouracil (Ptu -) 50 mg PO BID [facility] Last Admin: 11/01/18 11:01 Dose: 50 mg Rosuvastatin Calcium (Crestor -) 10 mg PO HS [facility] Last Admin: 10/31/18 22:18 Dose: 10 mg Senna (Senna -) 2 tab PO HS PRN PRN Reason: CONSTIPATION Torsemide (Demadex -) 100 mg PO DAILY [facility] Last Admin: 11/01/18 11:07 Dose: 100 mg 63 yo F PMx DM, HTN, HLD, SD in 2012 s/p stents, CABG, Afib, asthma, hyperthyroidism s/p STEINBERG, CKD, anemia with mult med intolerances, with CP and palpitations #OBI on CKD with unilateral obstruction s/p nephrostomy tube now requiring dialysis (uremic symptoms + fluid overload) #Acute on chronic CHF (improving with UF and diuretics) #Hypertension #Anemia #Hyperthyroidism (TSH remains very low, on PTU) no acute indication for DAMAGE CUTTER today next treatment planned for tomorrow with UF as tolerated for AVF placement outpatient dialysis to be arranged continue torsemide daily low salt diet fluid restriction of 1.2L daily Goyo Smith DO
--- NOTE | 2018-11-01 13:24 | PN ---
Physical Exam: SUBJECTIVE: Patient seen and examined at bedside. no acute events overnight. patient tolerated HD well yesterday she denies any CP/sob/n/v fevers or chills. her breathing is better OBJECTIVE: Vital Signs Period Temp Pulse Resp BP Sys/Shankar Pulse Ox Last 24 Hr 97.4 F-98.1 F 56-119 18-20 104-130/55-80 96-99 GENERAL: The patient is awake, alert, and fully oriented, in no acute distress. EYES: no scleral icterus NECK: diminishing JVD LUNGS: CTA B/L; no rales, rhonchi or wheezing HEART: Regular rate and rhythm, S1, S2 without murmur, rub or gallop. ABDOMEN: Soft, distended, non-tender EXTREMITIES: 2+ pulses, warm, well-perfused, 2+ edema B/L. PSYCH: Normal mood, normal affect. SKIN: Warm, dry, normal turgor, no rashes or lesions noted Laboratory Results - last 24 hr 10/29/18 10/31/18 10/31/18 06:05 16:53 22:12 Sodium Potassium Chloride Carbon Dioxide Anion Gap BUN Creatinine Creat Clearance w eGFR POC Glucometer 124 213 Random Glucose Calcium Phosphorus Magnesium TSH Hep A IgM Ab Confirm Negative Hepatitis A Ab Total Positive H Hep Bs Antigen Negative Hep Bs Antibody Non reactive Hep B Core Total Ab Negative 11/01/18 11/01/18 11/01/18 05:53 07:15 11:13 Sodium 138 Potassium 3.8 Chloride 100 Carbon Dioxide 28 Anion Gap 9 BUN 35 H Creatinine 2.3 H Creat Clearance w eGFR 21.42 POC Glucometer 137 170 Random Glucose 124 H Calcium 8.5 Phosphorus 2.2 L Magnesium 1.8 TSH 0.53 Hep A IgM Ab Confirm Hepatitis A Ab Total Hep Bs Antigen Hep Bs Antibody Hep B Core Total Ab Active Medications Generic Name Dose Route Start Last Admin Trade Name Freq PRN Reason Stop Dose Admin Acetaminophen 500 mg 10/27/18 17:53 10/30/18 05:41 Tylenol - PO 500 mg Q6H PRN Administration PAIN Aspirin 81 mg 10/30/18 10:00 11/01/18 10:54 Asa - PO 81 mg DAILY [facility] Administration Carvedilol 40 mg 10/28/18 10:00 11/01/18 10:58 Coreg Cr - PO 40 mg DAILY [facility] Administration Cholecalciferol 5,000 unit 10/28/18 10:00 11/01/18 11:55 Vitamin D3 - PO 5,000 unit DAILY [facility] Administration Clonazepam 0.5 mg 10/27/18 18:00 11/01/18 10:54 Klonopin - PO 0.5 mg QID [facility] Administration Docusate Sodium 100 mg 10/28/18 10:00 11/01/18 10:55 Colace - PO Not Given DAILY [facility] Ezetimibe 10 mg 10/28/18 10:00 11/01/18 11:01 Zetia - PO Not Given DAILY [facility] Glycerin 1 each 10/28/18 15:32 Glycerin Suppository Adult - RC DAILY PRN CONSTIPATION Heparin Sodium (Porcine) 5,000 unit 10/27/18 22:00 11/01/18 06:00 Heparin - SQ 5,000 unit TID [facility] Administration Sodium Chloride 250 mls @ 3,000 mls/hr 10/30/18 18:35 Normal Saline - IV 10/31/18 18:35 PRN PRN Hypotension during Dialysis Insulin Aspart 1 vial 10/27/18 22:00 11/01/18 11:35 Novolog Vial Sliding Scale - SQ 2 units ACHS [facility] Administration Protocol Insulin Detemir 5 units 10/29/18 08:58 10/31/18 22:29 Levemir Vial SQ 5 units HS [facility] Administration Non-Formulary Medication 1 each 10/28/18 10:00 11/01/18 10:59 Fluticasone/Vilanterol [Breo Ellipta 100-25 Mcg Inh] IH 1 each DAILY [facility] Administration Ondansetron HCl 4 mg 10/27/18 17:16 Zofran Injection IVPUSH Q6H PRN NAUSEA AND/OR VOMITING Polyethylene Glycol 17 gm 10/29/18 10:00 11/01/18 11:00 Miralax (For Daily Use) - PO Not Given DAILY [facility] Prasugrel 10 mg 10/30/18 10:00 11/01/18 10:57 Effient - PO 10 mg DAILY [facility] Administration Propylthiouracil 50 mg 10/31/18 22:00 11/01/18 11:01 Ptu - PO 50 mg BID [facility] Administration Rosuvastatin Calcium 10 mg 10/27/18 22:00 10/31/18 22:18 Crestor - PO 10 mg HS [facility] Administration Senna 2 tab 10/27/18 17:53 Senna - PO HS PRN CONSTIPATION Torsemide 100 mg 11/01/18 10:00 11/01/18 11:07 Demadex - PO 100 mg DAILY [facility] Administration ASSESSMENT/PLAN: Patient is a 63 year old female with history of CHF, OR s/p stents, CAD, DMII, hyperthyroidism, CKD stage V, HTN, HLD, presents with complaint of chest tightness, palpitations. Afib: -patient started on heparin drip here -Coreg 40 daily; which was decreased from 40 BID -continue tele monitoring; patient still having episodes of tachycardia; but less frequent since the increase in PTU dose Hyperthyroidism: -latest free t4 1.07 -on PTU 50 BID; tolerating -c/w beta isrrael therapy Caliectasis: -patient had right nephrostomy tube placed -monitor output CKD stage V: -baseline Cr 3.2; currently 2.8 this morning- -patient had dialysis yesterday ? av fistula placement vs. permacath -arranging outpatient dialysis CHF; -monitor daily weights -I's and O's -torsemide 100 daily DM -decreased levemir dosing from 20 units HS to 5 units HS as patients renal function is worsening and shes is becoming slightly more hypoglycemic -ISS ACHS -BGMS ACHS CAD -holding aspirin and prasugrel HTN -c/w coreg 40 daily F/E/N -no fluids -replete electrolytes accordingly -diabetic diet PPX: heparin drip for Afib Problem List - Problems (1) A-fib Code(s): I48.91 - UNSPECIFIED ATRIAL FIBRILLATION (2) Hyperthyroidism Code(s): E05.90 - THYROTOXICOSIS, UNSP WITHOUT THYROTOXIC CRISIS OR STORM (3) Acute pulmonary edema with congestive heart failure Code(s): I50.1 - LEFT VENTRICULAR FAILURE, UNSPECIFIED Visit type - Emergency Visit Emergency Visit: Yes ED Registration Date: 10/16/18 Care time: The patient presented to the Emergency Department on the above date and was hospitalized for further evaluation of their emergent condition. - New Patient This patient is new to me today: No - Critical Care Critical Care patient: No
[2018-11-01] MEDS: ACETAMINOPHEN 500 MG TABLET (FP) PO PRN ×2 (15:14→22:59)
[2018-11-01] MEDS ORDERED: SODIUM CHLORIDE 250 ML IV PRN (16:05)
[2018-11-01] MEDS ORDERED: PT OWN MED DRAWER 7, Y5N ONE (21:44)
[2018-11-01] MEDS: ROSUVASTATIN CA 10 MG TABLET (FP) PO SCH (22:55)
[2018-11-01] MEDS: INSULIN (LEVEMIR) 100 UNITS/ML UNITS SQ SCH (23:07)
[2018-11-02] MEDS ORDERED: ceFAZolin SODIUM 1 GM VIAL IVPB ONE
[2018-11-02] MEDS: HEPARIN NA (PORCINE) 5,000 UNITS/ML 1ML VIAL SQ SCH ×3 (05:34→21:04)
[2018-11-02] MEDS: INSULIN SLIDING SCALE (NOVOLOG) 1 VIAL SQ SCH ×4 (06:06→21:06)
[2018-11-02 08:04] LABS: ANION GAP 8 MMOL/L (8-16); BLOOD UREA NITROGEN 35 mg/dL (7-18); CALCIUM 7.9 mg/dL (8.5-10.1); CHLORIDE 100 mmol/L (98-107); CO2 28 mmol/L (21-32); CREATININE 2.7 mg/dL (0.55-1.3); GLUCOSE,RANDOM 158 mg/dL (74-106); MAGNESIUM 1.8 mg/dL (1.8-2.4); PHOSPHOROUS 2.5 mg/dL (2.5-4.9); POTASSIUM 3.7 mmol/L (3.5-5.1); SODIUM 137 mmol/L (136-145)
--- NOTE | 2018-11-02 09:24 | PN ---
Progress Note (short form) - Note Progress Note: Progress Note, Physician Chief Complaint: chf History of Present Illness: no chest pain, palps, sob. stable edema, getting dialysis now no cigs Current Medications Acetaminophen (Tylenol -) 500 mg PO Q6H PRN PRN Reason: PAIN Last Admin: 11/01/18 22:59 Dose: 500 mg Aspirin (Asa -) 81 mg PO DAILY [facility] Last Admin: 11/01/18 10:54 Dose: 81 mg Carvedilol (Coreg Cr -) 40 mg PO DAILY [facility] Last Admin: 11/01/18 10:58 Dose: 40 mg Cholecalciferol (Vitamin D3 -) 5,000 unit PO DAILY [facility] Last Admin: 11/01/18 11:55 Dose: 5,000 unit Clonazepam (Klonopin -) 0.5 mg PO QID [facility] Last Admin: 11/01/18 23:07 Dose: Not Given Docusate Sodium (Colace -) 100 mg PO DAILY [facility] Last Admin: 11/01/18 10:55 Dose: Not Given Ezetimibe (Zetia -) 10 mg PO DAILY [facility] Last Admin: 11/01/18 11:01 Dose: Not Given Glycerin (Glycerin Suppository Adult -) 1 each RC DAILY PRN PRN Reason: CONSTIPATION Heparin Sodium (Porcine) (Heparin -) 5,000 unit SQ TID [facility] Last Admin: 11/02/18 05:34 Dose: Not Given Sodium Chloride (Normal Saline -) 250 mls @ 3,000 mls/hr IV PRN PRN PRN Reason: Hypotension during Dialysis Stop: 10/31/18 18:35 Sodium Chloride (Normal Saline -) 250 mls @ 3,000 mls/hr IV PRN PRN PRN Reason: Hypotension during Dialysis Stop: 11/02/18 16:06 Insulin Aspart (Novolog Vial Sliding Scale -) 1 vial SQ [facility]; Protocol Last Admin: 11/02/18 06:06 Dose: Not Given Insulin Detemir (Levemir Vial) 5 units SQ HS [facility] Last Admin: 11/01/18 23:07 Dose: Not Given Non-Formulary Medication (Fluticasone/Vilanterol [Breo Ellipta 100-25 Mcg Inh]) 1 each IH DAILY [facility] Last Admin: 11/01/18 10:59 Dose: 1 each Ondansetron HCl (Zofran Injection) 4 mg IVPUSH Q6H PRN PRN Reason: NAUSEA AND/OR VOMITING Polyethylene Glycol (Miralax (For Daily Use) -) 17 gm PO DAILY [facility] Last Admin: 11/01/18 11:00 Dose: Not Given Prasugrel (Effient -) 10 mg PO DAILY [facility] Last Admin: 11/01/18 10:57 Dose: 10 mg Propylthiouracil (Ptu -) 50 mg PO BID [facility] Last Admin: 11/01/18 22:59 Dose: 50 mg Rosuvastatin Calcium (Crestor -) 10 mg PO HS [facility] Last Admin: 11/01/18 22:55 Dose: 10 mg Senna (Senna -) 2 tab PO HS PRN PRN Reason: CONSTIPATION Torsemide (Demadex -) 100 mg PO DAILY [facility] Last Admin: 11/01/18 11:07 Dose: 100 mg - Objective Vital Signs Period Temp Pulse Resp BP Sys/Shankar Pulse Ox Last 24 Hr 97.5 F-98.3 F 71-113 18-20 100-144/51-77 96-96 Constitutional: Yes: No Distress, Calm Eyes: No: Sclera Icterus HENT: No: Nasal Congestion Cardiovascular: Yes: Regular Rate and Rhythm, S1, S2, Other (PMI non diplaced). No: Gallop, Murmur Respiratory: Yes: CTA Bilaterally. No: Accessory Muscle Use, Rales, Wheezes Gastrointestinal: Yes: Normal Bowel Sounds, Soft. No: Tenderness Musculoskeletal: Yes: Other (No kyphosis) Extremities: No: Cold Edema: Yes 1+ jag lower ext Integumentary: No: Jaundice Neurological: Yes: Alert, Oriented (x3) Psychiatric: No: Agitated Assessment/Plan ECG: organized atrial activity: likely PAT with APCs, no definite flutter present. no fib. LVH with repol abn unchanged vs prior CXR: clear lungs Echo 07/2018 inf wall akinetic, other phillip severely hypokinetic, LV mildly dilated, RV function moderately reduced, LV function severely reduced, moderate MR, EF 30% Echo 12/2016: TDS. nl LV size/EF. mild LVH. grade 2 d.d., hi E/e' = high LAP. nl RV. mild LAE. mild-mod MR, mod TR. mild pHTN (46 mmHg) [facility] 2014: unchanged 70-80% distal RCA lesion. patent mLAD stent. 80-90% pLCX-- [facility] tele: sinus, occ PAT a/p: 63 yo female hx cad/pci, hyperthyroidism with associated tachycardia, palpitations, unintentional wt loss, acute on chronic labile HTN with mult med intolerances, mildly decompensated diast chf, and new LE edema (out of proportion to the degree of CHF), p/w le edema,sob. 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 Chen d/w'd dr olsen. pt diureses briskly to iv lasix (100mg) here. ? will be able to maintain volume status with po torsemide +/- metolazone, and will not need maintenance HD. plan is to optimize her volume status as much as possible in next couple weeks (which will also help cardiac output and minimize gut edema/enhance bioavailability of po diuretics), then see if she can maintain without continued HD/UF (hi risk of permacath infection given chronic uncontrolled DM). - torsemide 100 po daily to observe diuretic response. low threshold to add metolazone. - bb dose limited by new hypotension/dizziness--has changed metoprolol succ to coreg CR and insists this causes her less dizziness. cont same coreg - holding hydral, NTG patch (hypotension) - not on SHAN/ARB in setting of ckd obstructive uropathy, OBI on CKD: -probably new baseline creatinine in 3-3.3 range based on recent labs trends recently bumped to 3.5 as outpt--? sec to obstruction -s/p nephrostomy tubes 10/19, creat rising sec to cardiorenal syndrome -now on HD, plan for AV fistula today hyperthyroidism, sinus tach, PAT: - intolerant of methimazole (elevated LFTs) - s/p radio-I ablation - high burden of ATach with LV systolic dysfunction, now with new afib - low dose PTU resumed, patient tolerating (pt self-discontinued it at home for nausea) with improvement in heart rate - metopr high dose appeared to control PAT burden better than carvedilol, however caused hypotension/dizzy and pt changed back. she declines changing back to metoprolol. (previously intolerant of atenolol, propranolol). - no amiodarone in light of uncontrolled hyperthyroidism. no digoxin in light of very low GFR. no CCB in light of systolic dysfxn and previous intolerance ( edema) - given low bp trend and weakness/dizziness, coreg CR was decreased to 40 daily dosing (pt with longstanding HTN baseline bp 140s-160s, often higher--may not tolerate bp 100-110) - TSH finally starting to come up - will consider ablation once renal fxn is stabilized, though doubt she is a candidate in current condition (tenuous HF status, uncontrolled hyperthyroidism) - given no fib present, and no definitive atr flutter thus far, will defer AC for now. LE swelling: - started at time of hyperthyroidism, and remains out of proportion to HF findings - responded well to wraps - diuresis, HD as above Elevated troponin - borderline trop similar to prior baseline values, flat trend--not c/w acs. - sec to HF/CKD labile HTN: -mult med intolerances in past -bp stable currently CAD, prior NSTEMI/PCI: -holding DAPT (aspirin/effient) s/p perc nephrostomy tube placement 10/19, DAPT restarted 10/30 - DAPT held now for planned AV fistula placement, last dose 11/01 -cont home statin (max tolerated dose rosuva 20 with drug holidays), zetia -bb as bp tolerates
[2018-11-02 09:30] LABS: HEMATOCRIT 28.9 % (32.4-45.2); HEMOGLOBIN 8.9 GM/dL (10.7-15.3); MCH 23.6 pg (25.7-33.7); MCHC 30.7 g/dl (32.0-36.0); MEAN CELL VOLUME 76.9 fl (80-96); MEAN PLT VOLUME 8.7 fl (7.5-11.1); PLATELET COUNT 134 K/MM3 (134-434); RBC 3.76 M/mm3 (3.60-5.2); RDW 15.9 % (11.6-15.6); WHITE BLOOD COUNT 4.1 K/mm3 (4.0-10.0)
[2018-11-02] MEDS: DOCUSATE SODIUM 100 MG CAPSULE (FP) PO SCH (10:26)
[2018-11-02] MEDS: POLYETHYLENE GLYCOL 3350 119 GM BTL PO SCH (10:31)
--- NOTE | 2018-11-02 10:51 | PN ---
Progress Note (short form) - Note Progress Note: Renal follow up for OBI/CKD Pt seen and examined during dialysis awake and alert BP stable, goal UF is ~3L no cp, abd pain, fever, chills Vital Signs Temperature 98.1 F 11/02/18 08:55 Pulse Rate 71 11/02/18 08:55 Respiratory Rate 18 11/02/18 08:55 Blood Pressure 104/64 11/02/18 08:55 O2 Sat by Pulse Oximetry (%) 96 11/01/18 20:58 Intake & Output 10/30/18 10/31/18 11/01/18 11/02/18 23:59 23:59 23:59 23:59 Intake Total 9680 499 4597 0 Output Total 70 130 100 40 Balance 768 029 7149 -40 Weight 99.45 kg 99.592 kg 99.45 kg 100.783 kg NAD awake and alert neck supple ++ edema in LE CBC, BMP 11/02/18 05:50 11/02/18 05:50 Current Medications Acetaminophen (Tylenol -) 500 mg PO Q6H PRN PRN Reason: PAIN Last Admin: 11/01/18 22:59 Dose: 500 mg Aspirin (Asa -) 81 mg PO DAILY [facility] Last Admin: 11/01/18 10:54 Dose: 81 mg Carvedilol (Coreg Cr -) 40 mg PO DAILY [facility] Last Admin: 11/01/18 10:58 Dose: 40 mg Cholecalciferol (Vitamin D3 -) 5,000 unit PO DAILY [facility] Last Admin: 11/01/18 11:55 Dose: 5,000 unit Clonazepam (Klonopin -) 0.5 mg PO QID [facility] Last Admin: 11/01/18 23:07 Dose: Not Given Docusate Sodium (Colace -) 100 mg PO DAILY [facility] Last Admin: 11/02/18 10:26 Dose: Not Given Ezetimibe (Zetia -) 10 mg PO DAILY [facility] Last Admin: 11/01/18 11:01 Dose: Not Given Glycerin (Glycerin Suppository Adult -) 1 each RC DAILY PRN PRN Reason: CONSTIPATION Heparin Sodium (Porcine) (Heparin -) 5,000 unit SQ TID [facility] Last Admin: 11/02/18 05:34 Dose: Not Given Sodium Chloride (Normal Saline -) 250 mls @ 3,000 mls/hr IV PRN PRN PRN Reason: Hypotension during Dialysis Stop: 10/31/18 18:35 Sodium Chloride (Normal Saline -) 250 mls @ 3,000 mls/hr IV PRN PRN PRN Reason: Hypotension during Dialysis Stop: 11/02/18 16:06 Insulin Aspart (Novolog Vial Sliding Scale -) 1 vial SQ [facility]; Protocol Last Admin: 11/02/18 06:06 Dose: Not Given Insulin Detemir (Levemir Vial) 5 units SQ HS [facility] Last Admin: 11/01/18 23:07 Dose: Not Given Non-Formulary Medication (Fluticasone/Vilanterol [Breo Ellipta 100-25 Mcg Inh]) 1 each IH DAILY [facility] Last Admin: 11/01/18 10:59 Dose: 1 each Ondansetron HCl (Zofran Injection) 4 mg IVPUSH Q6H PRN PRN Reason: NAUSEA AND/OR VOMITING Polyethylene Glycol (Miralax (For Daily Use) -) 17 gm PO DAILY [facility] Last Admin: 11/02/18 10:31 Dose: Not Given Prasugrel (Effient -) 10 mg PO DAILY [facility] Last Admin: 11/01/18 10:57 Dose: 10 mg Propylthiouracil (Ptu -) 50 mg PO BID [facility] Last Admin: 11/01/18 22:59 Dose: 50 mg Rosuvastatin Calcium (Crestor -) 10 mg PO HS [facility] Last Admin: 11/01/18 22:55 Dose: 10 mg Senna (Senna -) 2 tab PO HS PRN PRN Reason: CONSTIPATION Torsemide (Demadex -) 100 mg PO DAILY [facility] Last Admin: 11/01/18 11:07 Dose: 100 mg 63 yo F PMx DM, HTN, HLD, [place] s/p stents, CABG, Afib, asthma, hyperthyroidism s/p STEINBERG, CKD, anemia with mult med intolerances, with CP and palpitations #OBI on CKD with unilateral obstruction s/p nephrostomy tube now requiring dialysis (uremic symptoms + fluid overload) #Acute on chronic CHF (improving with UF and diuretics) #Hypertension #Anemia #Hyperthyroidism (TSH remains very low, on PTU) pt tolerating dialysis well today for AVF placement will need outpatient HD placement as an acute kidney injury requring dialysis continue Torsemide 100mg Daily low salt diet will reaccess renal function with urine CrCl as an outpatient Goyo Smith DO
[2018-11-02] MEDS ORDERED: HEPARIN NA (PORCINE) 5,000 UNITS/ML 1ML VIAL ONE (11:15)
[2018-11-02] MEDS ORDERED: LIDOCAINE HCL 1%, 10 MG/ML (20ML VIAL) ONE (11:15)
[2018-11-02] MEDS ORDERED: POVIDONE-IODINE OINTMENT 10% - 28.4 GM TUBE ONE (11:16)
[2018-11-02] MEDS: CARVEDILOL PHOSPHATE CR 40 MG CAPSULE (FP) PO SCH (11:43)
[2018-11-02] MEDS: TORSEMIDE 100 MG TABLET PO SCH (11:43)
[2018-11-02] MEDS: CHOLECALCIFEROL (VITAMIN D3) 1,000 UNIT TABLET (FP) PO SCH (11:44)
[2018-11-02] MEDS: EZETIMIBE 10 MG TABLET (FP) PO SCH (11:44)
[2018-11-02] MEDS: PROPYLTHIOURACIL 50 MG TABLET (UD) PO SCH ×2 (11:44→21:04)
[2018-11-02] MEDS: clonazePAM 0.5 MG TABLET PO SCH ×4 (11:44→21:05)
--- NOTE | 2018-11-02 13:44 | PN ---
Physical Exam: SUBJECTIVE: Patient seen and examined at bedside. no acute events overnight; patient has HD today and is getting fistula placement; she denies any CP/SOB/N/ V fevers or chills. OBJECTIVE: Vital Signs Period Temp Pulse Resp BP Sys/Shankar Pulse Ox Last 24 Hr 97.5 F-98.3 F 60-113 18-19 100-144/51-77 96-100 GENERAL: The patient is awake, alert, and fully oriented, in no acute distress. EYES: no sclerla icterus NECK: no JVD LUNGS: CTA B/L; no rales, rhonchi ro wheezing. HEART: Regular rate and rhythm, S1, S2 without murmur, rub or gallop. ABDOMEN: Soft, distended; non-tender. EXTREMITIES: 2+ pulses, warm, well-perfused, 2+ edema B/L. PSYCH: Normal mood, normal affect. SKIN: Warm, dry, normal turgor, no rashes or lesions noted Laboratory Results - last 24 hr 10/29/18 11/01/18 11/01/18 06:05 16:52 22:56 WBC RBC Hgb Hct MCV MCH MCHC RDW Plt Count MPV Sodium Potassium Chloride Carbon Dioxide Anion Gap BUN Creatinine Creat Clearance w eGFR POC Glucometer 190 154 Random Glucose Calcium Phosphorus Magnesium HCV Quantitation Hcv not detected HCV RNA log copies/mL TNP 11/02/18 11/02/18 11/02/18 05:35 05:50 05:50 WBC 4.1 RBC 3.76 Hgb 8.9 L Hct 28.9 L MCV 76.9 L MCH 23.6 L MCHC 30.7 L RDW 15.9 H Plt Count 134 MPV 8.7 Sodium 137 Potassium 3.7 Chloride 100 Carbon Dioxide 28 Anion Gap 8 BUN 35 H Creatinine 2.7 H Creat Clearance w eGFR 17.80 POC Glucometer 160 Random Glucose 158 H Calcium 7.9 L Phosphorus 2.5 Magnesium 1.8 HCV Quantitation HCV RNA log copies/mL 11/02/18 11:30 WBC RBC Hgb Hct MCV MCH MCHC RDW Plt Count MPV Sodium Potassium Chloride Carbon Dioxide Anion Gap BUN Creatinine Creat Clearance w eGFR POC Glucometer 140 Random Glucose Calcium Phosphorus Magnesium HCV Quantitation HCV RNA log copies/mL Active Medications Generic Name Dose Route Start Last Admin Trade Name Freq PRN Reason Stop Dose Admin Acetaminophen 500 mg 10/27/18 17:53 11/01/18 22:59 Tylenol - PO 500 mg Q6H PRN Administration PAIN Aspirin 81 mg 10/30/18 10:00 11/01/18 10:54 Asa - PO 81 mg DAILY [facility] Administration Carvedilol 40 mg 10/28/18 10:00 11/02/18 11:43 Coreg Cr - PO Not Given DAILY [facility] Cholecalciferol 5,000 unit 10/28/18 10:00 11/02/18 11:44 Vitamin D3 - PO Not Given DAILY [facility] Clonazepam 0.5 mg 10/27/18 18:00 11/02/18 13:19 Klonopin - PO Not Given QID [facility] Docusate Sodium 100 mg 10/28/18 10:00 11/02/18 10:26 Colace - PO Not Given DAILY [facility] Ezetimibe 10 mg 10/28/18 10:00 11/02/18 11:44 Zetia - PO Not Given DAILY [facility] Glycerin 1 each 10/28/18 15:32 Glycerin Suppository Adult - RC DAILY PRN CONSTIPATION Heparin Sodium (Porcine) 5,000 unit 10/27/18 22:00 11/02/18 13:18 Heparin - SQ Not Given TID [facility] Sodium Chloride 250 mls @ 3,000 mls/hr 10/30/18 18:35 Normal Saline - IV 10/31/18 18:35 PRN PRN Hypotension during Dialysis Sodium Chloride 250 mls @ 3,000 mls/hr 11/01/18 16:05 Normal Saline - IV 11/02/18 16:06 PRN PRN Hypotension during Dialysis Insulin Aspart 1 vial 10/27/18 22:00 11/02/18 11:44 Novolog Vial Sliding Scale - SQ Not Given ACHS [facility] Protocol Insulin Detemir 5 units 10/29/18 08:58 11/01/18 23:07 Levemir Vial SQ Not Given HS [facility] Non-Formulary Medication 1 each 10/28/18 10:00 11/02/18 11:44 Fluticasone/Vilanterol [Breo Ellipta 100-25 Mcg Inh] IH Not Given DAILY [facility] Ondansetron HCl 4 mg 10/27/18 17:16 Zofran Injection IVPUSH Q6H PRN NAUSEA AND/OR VOMITING Polyethylene Glycol 17 gm 10/29/18 10:00 11/02/18 10:31 Miralax (For Daily Use) - PO Not Given DAILY [facility] Prasugrel 10 mg 10/30/18 10:00 11/01/18 10:57 Effient - PO 10 mg DAILY [facility] Administration Propylthiouracil 50 mg 10/31/18 22:00 11/02/18 11:44 Ptu - PO Not Given BID [facility] Rosuvastatin Calcium 10 mg 10/27/18 22:00 11/01/18 22:55 Crestor - PO 10 mg HS [facility] Administration Senna 2 tab 10/27/18 17:53 Senna - PO HS PRN CONSTIPATION Torsemide 100 mg 11/01/18 10:00 11/02/18 11:43 Demadex - PO Not Given DAILY [facility] ASSESSMENT/PLAN: Patient is a 63 year old female with history of CHF, [place] s/p stents, CAD, DMII, hyperthyroidism, CKD stage V, HTN, HLD, presents with complaint of chest tightness, palpitations. Afib: -patient started on heparin drip here -Coreg 40 daily; which was decreased from 40 BID -continue tele monitoring; patient still having episodes of tachycardia; but less frequent since the increase in PTU dose Hyperthyroidism: -latest free t4 1.07 -on PTU 50 BID; tolerating -c/w beta isrrael therapy Caliectasis: -patient had right nephrostomy tube placed -monitor output CKD stage V: -baseline Cr 3.2; currently 2.8 this morning- -patient had dialysis and AV fisula placement today -has outpatient dialysis arranged; leaving tomorrow CHF; -monitor daily weights -I's and O's -torsemide 100 daily DM -decreased levemir dosing from 20 units HS to 5 units HS as patients renal function is worsening and shes is becoming slightly more hypoglycemic -ISS ACHS -BGMS ACHS CAD -holding aspirin and prasugrel HTN -c/w coreg 40 daily F/E/N -no fluids -replete electrolytes accordingly -diabetic diet PPX: heparin drip for Afib Problem List - Problems (1) A-fib Code(s): I48.91 - UNSPECIFIED ATRIAL FIBRILLATION (2) Hyperthyroidism Code(s): E05.90 - THYROTOXICOSIS, UNSP WITHOUT THYROTOXIC CRISIS OR STORM (3) Acute pulmonary edema with congestive heart failure Code(s): I50.1 - LEFT VENTRICULAR FAILURE, UNSPECIFIED Visit type - Emergency Visit Emergency Visit: Yes ED Registration Date: 10/16/18 Care time: The patient presented to the Emergency Department on the above date and was hospitalized for further evaluation of their emergent condition. - New Patient This patient is new to me today: No - Critical Care Critical Care patient: No
[2018-11-02] MEDS ORDERED: MIDAZOLAM HCL 2 MG/2 ML SINGLE DOSE VIAL ONE ×3 (14:22→15:48)
[2018-11-02] MEDS ORDERED: DEXAMETHASONE SOD PHOSPHATE/PF 10 MG/ML SDV ONE (14:23)
[2018-11-02] MEDS ORDERED: BUPIVACAINE HCL/PF 0.5% (5MG/ML) 10 ML VIAL ONE (14:23)
[2018-11-02] MEDS ORDERED: PAPAVERINE HCL 30 MG/1 ML 10 ML VIAL NR ONE (15:17)
[2018-11-02] MEDS ORDERED: METOPROLOL TARTRATE 5 MG/5 ML VIAL ONE (15:21)
--- NOTE | 2018-11-02 15:23 | PN ---
Teaching Attending Note Name of Resident: Charmaine Banda ATTENDING PHYSICIAN STATEMENT I saw and evaluated the patient. I reviewed the resident's note and discussed the case with the resident. I agree with the resident's findings and plan as documented with exceptions below. SUBJECTIVE: Patient seen and examined. Getting HD, overall feels well. OBJECTIVE: Vital Signs Period Temp Pulse Resp BP Sys/Shankar Pulse Ox Last 24 Hr 97.5 F-98.4 F 60-113 18-19 100-144/51-77 96-100 Intake & Output 10/30/18 10/31/18 11/01/18 11/02/18 23:59 23:59 23:59 23:59 Intake Total 4959 976 2440 0 Output Total 70 130 100 40 Balance 951 093 7457 -40 Weight 219 lb 4 oz 219 lb 9 oz 219 lb 4 oz 222 lb 3 oz General: lying in bed in no acute distress Chest: decreased breath sounds at base, improved air entry overall Abdomen:soft, Obese, NT Extremities: some improvement in pedal edema Active Medications Acetaminophen (Tylenol -) 500 mg PO Q6H PRN PRN Reason: PAIN Last Admin: 11/01/18 22:59 Dose: 500 mg Aspirin (Asa -) 81 mg PO DAILY [facility] Last Admin: 11/01/18 10:54 Dose: 81 mg Carvedilol (Coreg Cr -) 40 mg PO DAILY [facility] Last Admin: 11/02/18 11:43 Dose: Not Given Cholecalciferol (Vitamin D3 -) 5,000 unit PO DAILY [facility] Last Admin: 11/02/18 11:44 Dose: Not Given Clonazepam (Klonopin -) 0.5 mg PO QID [facility] Last Admin: 11/02/18 13:19 Dose: Not Given Docusate Sodium (Colace -) 100 mg PO DAILY [facility] Last Admin: 11/02/18 10:26 Dose: Not Given Ezetimibe (Zetia -) 10 mg PO DAILY [facility] Last Admin: 11/02/18 11:44 Dose: Not Given Glycerin (Glycerin Suppository Adult -) 1 each RC DAILY PRN PRN Reason: CONSTIPATION Heparin Sodium (Porcine) (Heparin -) 5,000 unit SQ TID [facility] Last Admin: 11/02/18 13:18 Dose: Not Given Sodium Chloride (Normal Saline -) 250 mls @ 3,000 mls/hr IV PRN PRN PRN Reason: Hypotension during Dialysis Stop: 10/31/18 18:35 Sodium Chloride (Normal Saline -) 250 mls @ 3,000 mls/hr IV PRN PRN PRN Reason: Hypotension during Dialysis Stop: 11/02/18 16:06 Insulin Aspart (Novolog Vial Sliding Scale -) 1 vial SQ [facility]; Protocol Last Admin: 11/02/18 11:44 Dose: Not Given Insulin Detemir (Levemir Vial) 5 units SQ [facility] Last Admin: 11/01/18 23:07 Dose: Not Given Non-Formulary Medication (Fluticasone/Vilanterol [Breo Ellipta 100-25 Mcg Inh]) 1 each IH DAILY [facility] Last Admin: 11/02/18 11:44 Dose: Not Given Ondansetron HCl (Zofran Injection) 4 mg IVPUSH Q6H PRN PRN Reason: NAUSEA AND/OR VOMITING Polyethylene Glycol (Miralax (For Daily Use) -) 17 gm PO DAILY [facility] Last Admin: 11/02/18 10:31 Dose: Not Given Prasugrel (Effient -) 10 mg PO DAILY [facility] Last Admin: 11/01/18 10:57 Dose: 10 mg Propylthiouracil (Ptu -) 50 mg PO BID [facility] Last Admin: 11/02/18 11:44 Dose: Not Given Rosuvastatin Calcium (Crestor -) 10 mg PO HS [facility] Last Admin: 11/01/18 22:55 Dose: 10 mg Senna (Senna -) 2 tab PO HS PRN PRN Reason: CONSTIPATION Torsemide (Demadex -) 100 mg PO DAILY [facility] Last Admin: 11/02/18 11:43 Dose: Not Given Laboratory Results - last 24 hr 10/29/18 11/01/18 11/01/18 06:05 16:52 22:56 WBC RBC Hgb Hct MCV MCH MCHC RDW Plt Count MPV Sodium Potassium Chloride Carbon Dioxide Anion Gap BUN Creatinine Creat Clearance w eGFR POC Glucometer 190 154 Random Glucose Calcium Phosphorus Magnesium HCV Quantitation Hcv not detected HCV RNA log copies/mL TNP 11/02/18 11/02/18 11/02/18 05:35 05:50 05:50 WBC 4.1 RBC 3.76 Hgb 8.9 L Hct 28.9 L MCV 76.9 L MCH 23.6 L MCHC 30.7 L RDW 15.9 H Plt Count 134 MPV 8.7 Sodium 137 Potassium 3.7 Chloride 100 Carbon Dioxide 28 Anion Gap 8 BUN 35 H Creatinine 2.7 H Creat Clearance w eGFR 17.80 POC Glucometer 160 Random Glucose 158 H Calcium 7.9 L Phosphorus 2.5 Magnesium 1.8 HCV Quantitation HCV RNA log copies/mL 11/02/18 11:30 WBC RBC Hgb Hct MCV MCH MCHC RDW Plt Count MPV Sodium Potassium Chloride Carbon Dioxide Anion Gap BUN Creatinine Creat Clearance w eGFR POC Glucometer 140 Random Glucose Calcium Phosphorus Magnesium HCV Quantitation HCV RNA log copies/mL Microbiology 10/19/18 11:24 Urine - Urine Nephrostomy Tube Right Urine Culture - Final NO GROWTH OBTAINED 10/16/18 16:57 Urine - Urine Clean Catch Urine Culture - Final NO GROWTH OBTAINED ASSESSMENT AND PLAN: 63 yo F PMx DM, HTN, HLD, [place] in 2012 s/p stents, CABG, Afib, asthma, hyperthyroidism s/p I-131, CKD, anemia with multi med intolerances, with Chest Pain and palpitations -New severe LV systolic dysfunction,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 -Atrial tachycardia with RVR -Hyperthyroidism s/p I-131 -Obstructive uropathy from urinary tract anomaly s/p Right nephrostomy tube placement 10/19 -Acute on CKD stage III, suspect suspect cardiorenal from poor perfusion, started on HD 10/27 via permacath -Elevated troponin, suspect demand induced from above -CAD s/p PCI 2012, s/p CABG -Asthma -Anemia Plan: dry weight 205. s/p HD started on 10/27. Volume status improving. Nephrology/Cardiology input noted. Torsemide 100 mg daily. Plan for AV fistula placement today. Will be assess for need for ongoing HD over next few months based on volume status and renal function. HR overall improved. Reports better tolerance to Coreg, continue for now. TSH continues to improve. Continue PTU BID, Endocrine input appreciated. Hydronephrosis resolved on repeat imaging. Plan per urology. Troponin flat, suspect demand mediated. had recent PCI and no repeat CP since then. DAPT held for nephrostomy placement will d/w cardio about re-starting. Levemir 5 units hs for now, ISS, diabetic diet. Monitor insulin requirements while renal function improves. DVTPPX heparin Dispo plan for d/c home in 24 hours with outpatient HD if no concerns. Plan discussed with patient in detail, all questions answered.
[2018-11-02] MEDS ORDERED: ESMOLOL HCL 100,000 MCG/10 ML VIAL ONE (15:55)
--- NOTE | 2018-11-02 16:29 | SURG ---
Surgery Drug Discovery Informatics Specialist Note Drug Discovery Informatics Specialist: William Vega PA-C Date of Service: 11/02/18 Diagnosis: End stage renal failure Procedure: AV fistula creation Left arm I was present for the entirety of the operative procedure. For further detail, please refer to operative report. Visit type - Case Type Case Type: ED Admission - New patient This patient is new to me today: Yes Date on this admission: 11/02/18
[2018-11-02] MEDS ORDERED: GLYCERIN 1 RECTAL SUPPOSITORY, ADULT RC PRN (16:40)
[2018-11-02] MEDS ORDERED: ONDANSETRON 4 MG/2 ML VIAL IVPUSH PRN (16:40)
[2018-11-02] MEDS ORDERED: PT OWN MED DRAWER 7, Y5N ONE ×2 (18:56→20:27)
[2018-11-02] MEDS: ROSUVASTATIN CA 10 MG TABLET (FP) PO SCH (21:04)
[2018-11-02] MEDS: INSULIN (LEVEMIR) 100 UNITS/ML UNITS SQ SCH (21:05)
[2018-11-02] MEDS ORDERED: SENNOSIDES 8.6MG TABLET (FP) PO PRN (22:00)
[2018-11-02] MEDS: ACETAMINOPHEN 500 MG TABLET (FP) PO PRN (22:41)
[2018-11-03] MEDS: HEPARIN NA (PORCINE) 5,000 UNITS/ML 1ML VIAL SQ SCH ×3 (05:26→21:16)
[2018-11-03] MEDS: clonazePAM 0.5 MG TABLET PO SCH ×4 (05:27→23:16)
[2018-11-03] MEDS: ACETAMINOPHEN 500 MG TABLET (FP) PO PRN (05:27)
[2018-11-03] MEDS: INSULIN SLIDING SCALE (NOVOLOG) 1 VIAL SQ SCH ×4 (06:27→21:16)
[2018-11-03 07:34] LABS: ANION GAP 6 MMOL/L (8-16); BLOOD UREA NITROGEN 28 mg/dL (7-18); CALCIUM 8.3 mg/dL (8.5-10.1); CHLORIDE 101 mmol/L (98-107); CO2 29 mmol/L (21-32); CREATININE 2.3 mg/dL (0.55-1.3); GLUCOSE,RANDOM 247 mg/dL (74-106); POTASSIUM 3.9 mmol/L (3.5-5.1); SODIUM 136 mmol/L (136-145)
--- NOTE | 2018-11-03 07:34 | PN ---
Teaching Attending Note Name of Resident: Charmaine Banda ATTENDING PHYSICIAN STATEMENT I saw and evaluated the patient. I reviewed the resident's note and discussed the case with the resident. I agree with the resident's findings and plan as documented with exceptions below. SUBJECTIVE: Patient seen and examined. Reports numbness, weakness in left arm. OBJECTIVE: Vital Signs Period Temp Pulse Resp BP Sys/Shankar Pulse Ox Last 24 Hr 97.6 F-98.9 F 60-112 18-20 104-133/56-82 96-100 Intake & Output 10/31/18 11/01/18 11/02/18 11/03/18 23:59 23:59 23:59 23:59 Intake Total 350 1350 570 120 Output Total 130 100 100 Balance 220 1250 470 120 Weight 219 lb 9 oz 219 lb 4 oz 222 lb 3 oz General: sitting in bed in no acute distress Chest: decreased breath sounds at bases Abdomen:soft, obese, NT Extremities: some improvement in pedal edema from admission, left AV fistula site with old minimal bleed, none active. ABle to feel gross touch, limited hand and LUE movements (reports weakness since surgery), positive thrill Home Medications Medication Instructions Recorded Aspirin [ASA -] 81 mg PO DAILY 09/07/18 Cholecalciferol (Vitamin D3) 5,000 unit PO DAILY 09/07/18 [Vitamin D -] Clonazepam 0.5 mg PO QID 09/07/18 Ezetimibe [Zetia] 10 mg PO DAILY 09/07/18 Ferrous Gluconate [Iron] 256 mg PO DAILY 09/07/18 Fluticasone/Vilanterol [Breo 1 each IH DAILY 09/07/18 Ellipta 100-25 Mcg INH] Insulin Aspart [Novolog] 10 unit SQ [facility] 09/07/18 Insulin Glargine,Hum.rec.anlog 0 unit SQ [facility] 09/07/18 [Lantus] Prasugrel HCl [Effient] 10 mg PO DAILY 09/07/18 Rosuvastatin Calcium [Crestor] 10 mg PO DAILY 09/07/18 Insulin Sliding Scale [Novolog 1 vial SQ ACHS units 09/15/18 Vial Sliding Scale -] Carvedilol Phosphate [Coreg Cr -] 40 mg PO DAILY 10/17/18 Meclizine HCl 25 mg PO Q6H PRN 11/19/18 Metolazone 2.5 mg PO DAILY 10/17/18 Nitroglycerin Patch [Nitro-Dur] 0.2 mg TD DAILY 10/17/18 Torsemide 20 mg PO TID 10/17/18 ASSESSMENT AND PLAN: 63 yo F PMx DM, HTN, HLD, [place] in [place] s/p stents, CABG, Afib, asthma, hyperthyroidism s/p I-131, CKD, anemia with multi med intolerances, with Chest Pain and palpitations -New severe LV systolic dysfunction,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 -Atrial tachycardia with RVR -Hyperthyroidism s/p I-131 -Obstructive uropathy from urinary tract anomaly s/p Right nephrostomy tube placement 10/19 -Acute on CKD stage III, suspect suspect cardiorenal from poor perfusion, started on HD 10/27 via permacath -Elevated troponin, suspect demand induced from above -CAD s/p PCI 2012, s/p CABG -Asthma -Anemia Plan: LUE symptoms likely from anesthesia block as discussed with vascular surgery and anesthesia. PT re-eval, monitor LUE for anesthesia effect to wear off. dry weight 205. s/p HD started on 10/27. Volume status improving. Nephrology/Cardiology input noted. Torsemide 100 mg daily. s/p AV fistula placement 11/02. Will be assess for need for ongoing HD over next few months based on volume status and renal function. HR overall improved. Reports better tolerance to Coreg, continue for now. TSH continues to improve. Continue PTU BID, Endocrine input appreciated. Hydronephrosis resolved on repeat imaging. Plan per urology. Troponin flat, suspect demand mediated. had recent PCI and no repeat CP since then. DAPT held for nephrostomy placement , resumed, again held of Left Av fistula yesterday, resume on dc if no concerns. Levemir 5 units hs for now, ISS, diabetic diet. Monitor insulin requirements while renal function improves. DVTPPX heparin Dispo plan for d/c home home with services later today if LUE symptoms improved and no concerns. Plan discussed with patient in detail, all questions answered.
--- NOTE | 2018-11-03 07:42 | OP ---
DATE OF OPERATION: 10/27/2018 SURGEON: Mg Donnelly MD PROCEDURE: Placement of permacath. PREOPERATIVE DIAGNOSIS: Renal failure. POSTOPERATIVE DIAGNOSIS: Renal failure. ANESTHESIA: Fractional. ANESTHESIOLOGIST: Carol Lay MD OPERATIVE PROCEDURE: Following routine patient identification with side and site verification, intravenous sedation was established. The right neck and chest were prepped with ChloraPrep. Using real time duplex imaging, the right internal jugular vein was identified. It was patent, compressible, with normal phasic flow. Lidocaine was infiltrated subcutaneously to the lateral aspect of the vein, and the vein was cannulated under ultrasound guidance with a micropuncture needle. A wire was passed proximally under fluoroscopic guidance. A 5-Iranian catheter was exchanged over the wire, and then, the wire was exchanged for a J-tipped wire, which was advanced through the right atrium into the inferior vena cava. Additional Xylocaine was infiltrated on the chest wall, and a stab wound was made. A 19-cm tipped cuff permacath was advanced with a tunneler from chest to neck. The tract around the wire was dilated, and then, the introducer was placed oer the wire. The permacath was advanced through the introducer and tip positioned at the junction of the superior vena cava and right atrium. The introducer was peeled away. Each lumen was aspirated for blood and flushed with saline and Heparin solution. The neck wound was closed with a subcuticular suture of 3-0 Vicryl, and the catheter was sutured to the skin with 3-0 nylon. Sterile dressings were applied, and the patient was taken to the recovery room in stable condition. MG DONNELLY M.D. RADHA/[id number]
[2018-11-03 08:09] LABS: HEMATOCRIT 29.2 % (32.4-45.2); HEMOGLOBIN 8.9 GM/dL (10.7-15.3); MCH 23.4 pg (25.7-33.7); MCHC 30.4 g/dl (32.0-36.0); MEAN CELL VOLUME 76.9 fl (80-96); MEAN PLT VOLUME 8.9 fl (7.5-11.1); PLATELET COUNT 125 K/MM3 (134-434); RDW 16.1 % (11.6-15.6); WHITE BLOOD COUNT 4.1 K/mm3 (4.0-10.0)
[2018-11-03] MEDS: ASPIRIN 81 MG CHEWABLE TABLETS PO SCH (09:41)
[2018-11-03] MEDS: DOCUSATE SODIUM 100 MG CAPSULE (FP) PO SCH (09:42)
[2018-11-03] MEDS: CARVEDILOL PHOSPHATE CR 40 MG CAPSULE (FP) PO SCH (09:43)
[2018-11-03] MEDS: TORSEMIDE 100 MG TABLET PO SCH (09:43)
[2018-11-03] MEDS: POLYETHYLENE GLYCOL 3350 119 GM BTL PO SCH (09:44)
[2018-11-03] MEDS: [UNRECOGNIZED DRUG - OTHER] IH SCH (09:44)
[2018-11-03] MEDS: PROPYLTHIOURACIL 50 MG TABLET (UD) PO SCH ×2 (09:44→21:16)
--- NOTE | 2018-11-03 09:44 | PN ---
Progress Note (short form) - Note Progress Note: POD 1, s/p LUE AVF creation Pt seen and examined. Unhappy able LUE block used for surgery yesterday. Reports she did not know that her arm would still be numb today. Endorses pain, improved with pain meds. Has not been oob. Tolerated PO. Denies cp/sob, n/v/d. Is unable to feel her hand/arm upto where avf is. Vital Signs Temp 98.9 F 11/03/18 05:58 Pulse 103 H 11/03/18 05:58 Resp 20 11/03/18 05:58 BP 122/72 11/03/18 05:58 Pulse Ox 98 11/02/18 21:00 Intake & Output 11/02/18 11/02/18 11/03/18 11:59 23:59 11:59 Intake Total 0 570 120 Output Total 40 60 Balance -40 510 120 Weight 222 lb 3 oz Intake: IV 210 RFA #22 11/01/18 10 Oral 0 360 120 Output: Urine 40 60 Right Nephrostomy 40 60 Other: Voiding Method Toilet Bedpan # Unmeasured Voids Void 2 1 Bowel Movement Yes Yes # Bowel Movements 1 Weight Measurement Method Standing Scale CBC, BMP 11/03/18 06:00 11/03/18 06:00 Gen: awake, alert, nad Resp: unlabored Ext: LUE AVF with palpable thrill, dressing reinforced and saturdated with blood. Dressing removed, incision c/d/i with clot formation overlying staple line. No active bleeding noted. No palpable hematoma appreciated. Incision redressed with 4x4 and tegaderm. Ext: Able to wiggle fingers and flex/extend wrist, referral coordinator strength weak. No sensation upto AVF, SILT at shoulder and proximal UE. Vas: Palpable radial/ulnar pulse A/P: 63 y/o F w/ PMHx DM, HTN, HLD, [place] in 2012 s/p stents, CABG, Afib, asthma, hyperthyroidism s/p I-131, Acute on chronic CHF, anemia with multi med intolerances, OBI on CKD with unilateral obstruction s/p nephrostomy tube now requiring dialysis, admitted 10/16 with Chest Pain and palpitations, s/p R PC placement 10/27, now POD 1, s/p LUE AVF creation. Block still in effect. AVF with +thrill, no bleeding. -Continue HD per Renal -Keep dressing c/d/i -F/U with Dr Morgan in 10-14 days after d/c Pt rechecked at 330pm, reports block feels like its "finally wearing off". Able to lift LUE antigravity and has increased ROM at fingers/wrist. Sensation improved, reports slight numbness of hand and forearm, improving from this AM. <Luis James - Last Filed: 11/03/18 15:37> - Note Progress Note: Oozing from incision, no subQ collection. Hand warm DDAVP ordered <Mg Morgan - Last Filed: 11/03/18 18:26> Problem List - Problems (1) Acute on chronic kidney failure Code(s): N17.9 - ACUTE KIDNEY FAILURE, UNSPECIFIED; N18.9 - CHRONIC KIDNEY DISEASE, UNSPECIFIED Qualifiers: Chronic kidney disease stage: stage 5, not on chronic dialysis <Mg Morgan - Last Filed: 11/03/18 18:26>
[2018-11-03] MEDS: EZETIMIBE 10 MG TABLET (FP) PO SCH (09:45)
--- NOTE | 2018-11-03 09:52 | PN ---
Progress Note (short form) - Note Progress Note: History of Present Illness: no chest pain, palps, dizzy, lightheadedness, sob Current Medications Generic Name Dose Route Start Last Admin Trade Name Freq PRN Reason Stop Dose Admin Acetaminophen 500 mg 11/02/18 16:40 11/03/18 05:27 Tylenol - PO 500 mg Q6H PRN Administration PAIN 1-3 Aspirin 81 mg 11/03/18 10:00 Asa - PO DAILY [facility] Carvedilol 40 mg 11/03/18 10:00 Coreg Cr - PO DAILY [facility] Cholecalciferol 5,000 unit 11/03/18 10:00 Vitamin D3 - PO DAILY [facility] Clonazepam 0.5 mg 11/03/18 05:30 11/03/18 05:27 Klonopin - PO 0.5 mg Q6HPO [facility] Administration Docusate Sodium 100 mg 11/03/18 10:00 Colace - PO DAILY [facility] Ezetimibe 10 mg 11/03/18 10:00 Zetia - PO DAILY [facility] Glycerin 1 each 11/02/18 16:40 Glycerin Suppository Adult - RC DAILY PRN CONSTIPATION Heparin Sodium (Porcine) 5,000 unit 11/02/18 22:00 11/03/18 05:26 Heparin - SQ 5,000 unit TID [facility]ALO Administration Insulin Aspart 1 vial 11/02/18 22:00 11/03/18 06:27 Novolog Vial Sliding Scale - SQ 4 units ACHS [facility] Administration Protocol Insulin Detemir 5 units 11/02/18 22:00 11/02/18 21:05 Levemir Vial SQ 5 units HS [facility] Administration (Fluticasone/ 1 each 11/03/18 10:00 Vilanterol [Breo IH Ellipta 100-25 Mcg] DAILY [facility] Patient's Own Medication (Non- Formulary) Ondansetron HCl 4 mg 11/02/18 16:40 Zofran Injection IVPUSH Q6H PRN NAUSEA AND/OR VOMITING Polyethylene Glycol 17 gm 11/03/18 10:00 Miralax (For Daily Use) - PO DAILY [facility] Propylthiouracil 50 mg 11/02/18 22:00 11/02/18 21:04 Ptu - PO 50 mg BID [facility] Administration Rosuvastatin Calcium 10 mg 11/02/18 22:00 11/02/18 21:04 Crestor - PO 10 mg HS [facility] Administration Senna 2 tab 11/02/18 22:00 Senna - PO HS PRN CONSTIPATION Torsemide 100 mg 11/03/18 10:00 Demadex - PO DAILY [facility] Vital Signs: Vital Signs Period Temp Pulse Resp BP Sys/Shankar Pulse Ox Last 24 Hr 97.6 F-98.9 F 60-112 18-20 108-133/56-82 96-99 Constitutional: Yes: Well Nourished, No Distress Eyes: No: Sclera Icterus HENT: No: Nasal Congestion Respiratory: Yes: CTA Bilaterally. No: Accessory Muscle Use, Rales, Wheezes Gastrointestinal: Yes: Normal Bowel Sounds. No: Distention, Hepatomegaly, Palpable Mass, Tenderness Cardiovascular: Yes: Regular Rate and Rhythm JVD: Yes Heart Sounds: Yes: S1, S2. No: Gallop Murmur: No: Systolic Murmur, Diastolic Murmur Extremities: No: Cool, Cyanosis Edema: Yes (1+ pretib) Peripheral Pulses: 2+ Left Carotid, 2+ Right Carotid, 2+ Left Doralis Pedis, 2+ Right Dorsalis Pedis Integumentary: No: Jaundice Neurological: Yes: Alert, Oriented (x3) Psychiatric: No: Agitated CBC, BMP 11/03/18 06:00 11/03/18 06:00 ECG: organized atrial activity: likely PAT with APCs, no definite flutter present. no fib. LVH with repol abn unchanged vs prior CXR: clear lungs Echo 07/2018 inf wall akinetic, other phillip severely hypokinetic, LV mildly dilated, RV function moderately reduced, LV function severely reduced, moderate MR, EF 30% Echo 12/2016: TDS. nl LV size/EF. mild LVH. grade 2 d.d., hi E/e' = high LAP. nl RV. mild LAE. mild-mod MR, mod TR. mild pHTN (46 mmHg) [facility] 2014: unchanged 70-80% distal RCA lesion. patent mLAD stent. 80-90% pLCX-- [employer] KAREN tele: sr, pacs a/p: 63 yo female hx cad/pci, hyperthyroidism with associated tachycardia, palpitations, unintentional wt loss, acute on chronic labile HTN with mult med intolerances, mildly decompensated diast chf, and new LE edema (out of proportion to the degree of CHF), p/w le edema,sob. 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 Chen d/w'd dr olsen. pt diureses briskly to iv lasix (100mg) here. ? will be able to maintain volume status with po torsemide +/- metolazone, and will not need maintenance HD. plan is to optimize her volume status as much as possible in next couple weeks (which will also help cardiac output and minimize gut edema/enhance bioavailability of po diuretics), then see if she can maintain without continued HD/UF (hi risk of permacath infection given chronic uncontrolled DM). - torsemide 100 po daily to observe diuretic response. low threshold to add metolazone. - bb dose limited by new hypotension/dizziness--has changed metoprolol succ to coreg CR and insists this causes her less dizziness. cont same coreg - holding hydral, NTG patch (hypotension) - not on SHAN/ARB in setting of ckd obstructive uropathy, OBI on CKD: -probably new baseline creatinine in 3-3.3 range based on recent labs trends recently bumped to 3.5 as outpt--? sec to obstruction -s/p nephrostomy tubes 10/19, creat rising sec to cardiorenal syndrome -now on HD, s/p avf hyperthyroidism, sinus tach, PAT: - intolerant of methimazole (elevated LFTs) - s/p radio-I ablation - high burden of ATach with LV systolic dysfunction, now with new afib - low dose PTU resumed, patient tolerating (pt self-discontinued it at home for nausea) with improvement in heart rate - metopr high dose appeared to control PAT burden better than carvedilol, however caused hypotension/dizzy and pt changed back. she declines changing back to metoprolol. (previously intolerant of atenolol, propranolol). - no amiodarone in light of uncontrolled hyperthyroidism. no digoxin in light of very low GFR. no CCB in light of systolic dysfxn and previous intolerance ( edema) - given low bp trend and weakness/dizziness, coreg CR was decreased to 40 daily dosing (pt with longstanding HTN baseline bp 140s-160s, often higher--may not tolerate bp 100-110) - TSH finally starting to come up - will consider ablation once renal fxn is stabilized, though doubt she is a candidate in current condition (tenuous HF status, uncontrolled hyperthyroidism) - given no fib present, and no definitive atr flutter thus far, will defer AC for now. LE swelling: - started at time of hyperthyroidism, and remains out of proportion to HF findings - responded well to wraps - diuresis, HD as above Elevated troponin - borderline trop similar to prior baseline values, flat trend--not c/w acs. - sec to HF/CKD labile HTN: -mult med intolerances in past -bp stable currently CAD, prior NSTEMI/PCI: -holding DAPT (aspirin/effient) s/p perc nephrostomy tube placement 10/19, DAPT restarted 10/30 - DAPT held now for planned AV fistula placement, last dose 11/01 -cont home statin (max tolerated dose rosuva 20 with drug holidays), zetia -bb as bp tolerates
[2018-11-03] MEDS: CHOLECALCIFEROL (VITAMIN D3) 1,000 UNIT TABLET (FP) PO SCH (11:58)
--- NOTE | 2018-11-03 12:32 | OP ---
DATE OF OPERATION: 11/02/2018 SURGEON: Mg Morgan MD PARTS REPRESENTATIVE: VIKI Hughes PROCEDURE: Creation arteriovenous fistula, left arm. PREOPERATIVE DIAGNOSIS: Renal failure. POSTOPERATIVE DIAGNOSIS: Renal failure. ANESTHESIA: Axillary block. ANESTHESIOLOGIST: Sky Becker MD OPERATIVE FINDINGS: The cephalic vein and brachial artery were patent at the level of the antecubital fossa. OPERATIVE PROCEDURE: Following routine patient identification with side and site verification, a left axillary block was performed. The left arm was prepped with ChloraPrep. Time-out was performed. Skin incision was made distal to the antecubital crease and carried in subcutaneous tissues using cautery for hemostasis. The antecubital vein was identified and carefully mobilized from its bed. Side branches were ligated and divided. The vein was ligated distally. It was incised and distended with heparin and papaverine solution. No. 5 and No. 8 feeding tubes were passed proximally in the cephalic vein with no resistance. The vein was filled with heparin solution and occluded with a small bulldog clamp. The wound was deepened through the muscle fascia, and the brachial artery mobilized and secured with the vessel loops superiorly. The artery was dissected distally with ligation of crossing vessels. The radial branch was mobilized and secured with a vessel loop, and the ulnar branch separately secured. The artery was then occluded with clamp and vessels loop and opened on an exposed surface in the radial artery distal to the bifurcation. A longitudinal arteriotomy measuring approximately 6 mm was made. Inflow was adequate. The vein was spatulated, and anastomosed to the side of the artery with running sutures of 6-0 Prolene. Prior to the completion of the suture line, the artery was allowed to back-bleed and flush, and the vein was flushed with heparin solution. The suture line was completed, and the vessels were released. There was good flow through the anastomosis with a palpable thrill proximally. Bleeding from the suture line was controlled with Surgicel. The wound was then closed with interrupted suture of 3-0 Vicryl on subcutaneous tissues and skin with siri. A sterile dressing was applied. The patient was taken to the recovery room in stable condition. James MEEKS/[id number]
--- NOTE | 2018-11-03 15:10 | PN ---
Progress Note (short form) - Note Progress Note: Renal follow up for OBI/CKD Pt seen and examined at the bedside complains of numbness and weakness in left arm s/p AVF placement yesterday making urine via nephrostomy but is darker in color, denies any flank pain Vital Signs Temperature 98.0 F 11/03/18 14:00 Pulse Rate 87 11/03/18 14:00 Respiratory Rate 20 11/03/18 14:00 Blood Pressure 109/61 11/03/18 14:00 O2 Sat by Pulse Oximetry (%) 95 11/03/18 09:56 Intake & Output 10/31/18 11/01/18 11/02/18 11/03/18 23:59 23:59 23:59 23:59 Intake Total 350 1350 570 120 Output Total 130 100 100 Balance 220 1250 470 120 Weight 99.592 kg 99.45 kg 100.783 kg NAD left hand is warm, distal pules intact ++ edmea in Le no flank pain CBC, BMP 11/03/18 06:00 11/03/18 06:00 Current Medications Acetaminophen (Tylenol -) 500 mg PO Q6H PRN PRN Reason: PAIN 1-3 Last Admin: 11/03/18 05:27 Dose: 500 mg Aspirin (Asa -) 81 mg PO DAILY [facility] Last Admin: 11/03/18 09:41 Dose: 81 mg Carvedilol (Coreg Cr -) 40 mg PO DAILY [facility] Last Admin: 11/03/18 09:43 Dose: 40 mg Cholecalciferol (Vitamin D3 -) 5,000 unit PO DAILY [facility] Last Admin: 11/03/18 11:58 Dose: 5,000 unit Clonazepam (Klonopin -) 0.5 mg PO Q6HPO [facility] Last Admin: 11/03/18 12:01 Dose: 0.5 mg Docusate Sodium (Colace -) 100 mg PO DAILY [facility] Last Admin: 11/03/18 09:42 Dose: Not Given Ezetimibe (Zetia -) 10 mg PO DAILY [facility] Last Admin: 11/03/18 09:45 Dose: 10 mg Glycerin (Glycerin Suppository Adult -) 1 each RC DAILY PRN PRN Reason: CONSTIPATION Heparin Sodium (Porcine) (Heparin -) 5,000 unit SQ TID [facility] Last Admin: 11/03/18 14:10 Dose: Not Given Insulin Aspart (Novolog Vial Sliding Scale -) 1 vial SQ [facility]; Protocol Last Admin: 11/03/18 11:58 Dose: 8 units Insulin Detemir (Levemir Vial) 5 units SQ HS [facility] Last Admin: 11/02/18 21:05 Dose: 5 units (Fluticasone/Vilanterol [Breo Ellipta 100-25 Mcg] Patient's Own Medication (Non - Formulary) 1 each IH DAILY [facility] Last Admin: 11/03/18 09:44 Dose: 1 each Ondansetron HCl (Zofran Injection) 4 mg IVPUSH Q6H PRN PRN Reason: NAUSEA AND/OR VOMITING Polyethylene Glycol (Miralax (For Daily Use) -) 17 gm PO DAILY [facility] Last Admin: 11/03/18 09:44 Dose: Not Given Propylthiouracil (Ptu -) 50 mg PO BID [facility] Last Admin: 11/03/18 09:44 Dose: 50 mg Rosuvastatin Calcium (Crestor -) 10 mg PO HS [facility] Last Admin: 11/02/18 21:04 Dose: 10 mg Senna (Senna -) 2 tab PO HS PRN PRN Reason: CONSTIPATION Torsemide (Demadex -) 100 mg PO DAILY [facility] Last Admin: 11/03/18 09:43 Dose: 100 mg 63 yo F PMx DM, HTN, HLD, [place] in 2012 s/p stents, CABG, Afib, asthma, hyperthyroidism s/p STEINBERG, CKD, anemia with mult med intolerances, with CP and palpitations #OBI on CKD with unilateral obstruction s/p nephrostomy tube now requiring dialysis (uremic symptoms + fluid overload) #Acute on chronic CHF (improving with UF and diuretics) #Hypertension #Anemia #Hyperthyroidism (TSH remains very low, on PTU) Will continue short term dialysis for management of fluid overload will consult urology to evaluate pt for outpatient management of unilateral hydronephrosis and possible stent placement check US of kidney and UA to evaluate dark urine in nephrostomy bag will give KRISTA with HD tomorrow for anemia discharge planning as per primary Goyo Smith DO
--- NOTE | 2018-11-03 15:26 | CON.GU ---
Consult Consult Specialty:: Referred by:: Nephrology Reason for Consultation:: UPJO, hydronephrosis - History of Present Illness Chief Complaint: UPJO, hydronephrosis History of Present Illness: 63 year old woman with chronic renal insufficiency now on dialysis. 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 Cardiology has deemed her a high risk for anesthesia. She had a nephrostomy tube placed and although her hydronephrosis resolved, her renal function did not and she has progressed to dialysis. Consulted by nephrology for future management - History Source History Provided By: Patient, Medical Record - Past Medical History Cardio/Vascular: Yes: AFIB, CAD, CHF, HTN, Hyperlipdemia, [place], Mitral Insufficiency, Pulmonary Hypertension Pulmonary: Yes: Sleep Apnea Renal/: Yes: Renal Failure, Other (UPJ obstruction) ...: No Endocrine: Yes: Diabetes Mellitus, Hyperthyroidism - Past Surgical History Past Surgical History: Yes: Stent - Alcohol/Substance Use Hx Alcohol Use: No History of Substance Use: reports: None - Smoking History Smoking history: Never smoked Have you smoked in the past 12 months: No Aproximately how many cigarettes per day: 0 - Social History ADL: Independent History of Recent Travel: No Home Medications - Allergies Allergies/Adverse Reactions: Allergies Allergy/AdvReac Type Severity Reaction Status Date / Time Penicillins Allergy Intermediate Hives Verified 10/16/18 15:24 Iodinated Contrast- Oral and Allergy Verified 10/16/18 15:24 IV Dye [Iodinated Contrast Media - IV Dye] tiotropium AdvReac Verified 10/16/18 15:24 [From Spiriva with HandiHaler] - Home Medications Home Medications: Ambulatory Orders Aspirin [ASA -] 81 mg PO DAILY 09/07/18 Cholecalciferol (Vitamin D3) [Vitamin D -] 5,000 unit PO DAILY 09/07/18 Clonazepam 0.5 mg PO QID 09/07/18 Ezetimibe [Zetia] 10 mg PO DAILY 09/07/18 Ferrous Gluconate [Iron] 256 mg PO DAILY 09/07/18 Fluticasone/Vilanterol [Breo Ellipta 100-25 Mcg INH] 1 each IH DAILY 09/07/18 Insulin Aspart [Novolog] 10 unit SQ ASDIR 09/07/18 Insulin Glargine,Hum.rec.anlog [Lantus] 0 unit SQ ASDIR 09/07/18 Prasugrel HCl [Effient] 10 mg PO DAILY 09/07/18 Rosuvastatin Calcium [Crestor] 10 mg PO DAILY 09/07/18 Carvedilol Phosphate [Coreg Cr -] 40 mg PO DAILY 10/17/18 Meclizine HCl 25 mg PO Q6H PRN 10/17/18 Metolazone 2.5 mg PO DAILY 10/17/18 Nitroglycerin Patch [Nitro-Dur Patch -] 0.2 mg TD DAILY 10/17/18 Propylthiouracil 50 mg PO BID 30 Days #60 tablet 11/03/18 Torsemide [Demadex -] 100 mg PO DAILY 30 Days #30 tablet 11/03/18 Family Disease History - Family Disease History Family Disease History: CA: Mother (breast), Sister (breast), Daughter (colon) Review of Systems - Review of Systems Genitourinary: reports: Dysuria, Flank Pain, Frequency Physical Exam- Vital Signs: Vital Signs Temperature 98.0 F 11/03/18 14:00 Pulse Rate 87 11/03/18 14:00 Respiratory Rate 20 11/03/18 14:00 Blood Pressure 109/61 11/03/18 14:00 O2 Sat by Pulse Oximetry (%) 95 11/03/18 09:56 Constitutional: Yes: Well Nourished, No Distress, Calm Gastrointestinal: Yes: Soft Renal/: Yes: Other (nephrostomy tube draining). No: Bladder Distention, CVA Tenderness - Left, CVA Tenderness - Right Labs: CBC, BMP 11/03/18 06:00 11/03/18 06:00 Problem List - Problems (1) Ureteropelvic junction (UPJ) obstruction Assessment/Plan: PCN in place and hydronephrosis resolved in a poorly functioning kidney. She is a high risk for anesthesia. Consider antegrade stent placement by interventional radiology as outpatient. Code(s): N13.5 - CROSSING VESSEL AND STRICTURE OF URETER W/O HYDRONEPHROSIS
[2018-11-03 16:47] LABS: URINE APPEARANCE CLOUDY; URINE BILIRUBIN NEGATIVE (<2.0 mg/dL); URINE COLOR RED; URINE GLUCOSE (UA) 2+ (NEGATIVE); URINE KETONE TRACE (NEGATIVE); URINE LEUK ESTERASE 1+ (NEGATIVE); URINE NITRITE NEGATIVE (NEGATIVE); URINE PROTEIN 2+ (NEGATIVE); URINE UROBILINOGEN NEGATIVE mg/dL (0.2-1.0)
--- NOTE | 2018-11-03 16:54 | PN ---
Physical Exam: SUBJECTIVE: Patient seen and examined at bedside- no acute events overnight. patient got AV fistula placed yesterday and was having a lot of L arm numbness and weakness; she is going for HD tomorrow morning. she denies any CP/SOB/N.V fevers or chills OBJECTIVE: Vital Signs Period Temp Pulse Resp BP Sys/Shankar Pulse Ox Last 24 Hr 97.6 F-98.9 F 80-112 18-20 104-133/59-82 95-98 GENERAL: The patient is awake, alert, and fully oriented, in no acute distress. EYES:no scleral icterus NECK:diminishing JVD LUNGS: CTA B/L; no rales rhonchi or wheezing HEART: Regular rate and rhythm, S1, S2 without murmur, rub or gallop. ABDOMEN: Soft, distended, +BS in all 4 quadrants . EXTREMITIES: 2+ pulses, warm, well-perfused, 2+ edema B/L. PSYCH: Normal mood, normal affect. SKIN: Warm, dry, normal turgor, no rashes or lesions noted Laboratory Results - last 24 hr 11/02/18 11/02/18 11/03/18 17:25 20:37 05:21 WBC RBC Hgb Hct MCV MCH MCHC RDW Plt Count MPV Sodium Potassium Chloride Carbon Dioxide Anion Gap BUN Creatinine Creat Clearance w eGFR POC Glucometer 158 283 249 Random Glucose Calcium Urine Color Urine Appearance Urine pH Ur Specific Monument Urine Protein Urine Glucose (UA) Urine Ketones Urine Blood Urine Nitrite Urine Bilirubin Urine Urobilinogen Ur Leukocyte Esterase 11/03/18 11/03/18 11/03/18 06:00 06:00 11:55 WBC 4.1 RBC 3.80 Hgb 8.9 L Hct 29.2 L MCV 76.9 L MCH 23.4 L MCHC 30.4 L RDW 16.1 H Plt Count 125 L MPV 8.9 Sodium 136 Potassium 3.9 Chloride 101 Carbon Dioxide 29 Anion Gap 6 L BUN 28 H Creatinine 2.3 H Creat Clearance w eGFR 21.42 POC Glucometer 310 Random Glucose 247 H Calcium 8.3 L Urine Color Urine Appearance Urine pH Ur Specific Monument Urine Protein Urine Glucose (UA) Urine Ketones Urine Blood Urine Nitrite Urine Bilirubin Urine Urobilinogen Ur Leukocyte Esterase 11/03/18 16:00 WBC RBC Hgb Hct MCV MCH MCHC RDW Plt Count MPV Sodium Potassium Chloride Carbon Dioxide Anion Gap BUN Creatinine Creat Clearance w eGFR POC Glucometer Random Glucose Calcium Urine Color Red Urine Appearance Cloudy Urine pH 5.0 Ur Specific Mon[place] 1.020 Urine Protein 2+ H Urine Glucose (UA) 2+ H Urine Ketones Trace H Urine Blood 2+ H Urine Nitrite Negative Urine Bilirubin Negative Urine Urobilinogen Negative Ur Leukocyte Esterase 1+ H Active Medications Generic Name Dose Route Start Last Admin Trade Name Freq PRN Reason Stop Dose Admin Acetaminophen 500 mg 11/02/18 16:40 11/03/18 05:27 Tylenol - PO 500 mg Q6H PRN Administration PAIN 1-3 Aspirin 81 mg 11/03/18 10:00 11/03/18 09:41 Asa - PO 81 mg DAILY LALO Administration Carvedilol 40 mg 11/03/18 10:00 11/03/18 09:43 Coreg Cr - PO 40 mg DAILY LALO Administration Cholecalciferol 5,000 unit 11/03/18 10:00 11/03/18 11:58 Vitamin D3 - PO 5,000 unit DAILY LALO Administration Clonazepam 0.5 mg 11/03/18 05:30 11/03/18 12:01 Klonopin - PO 0.5 mg Q6HPO LALO Administration Docusate Sodium 100 mg 11/03/18 10:00 11/03/18 09:42 Colace - PO Not Given DAILY [facility] Ezetimibe 10 mg 11/03/18 10:00 11/03/18 09:45 Zetia - PO 10 mg DAILY LALO Administration Epoetin Alin 10,000 unit 11/04/18 07:00 Epogen - IVPUSH 11/04/18 07:01 ONCE ONE Glycerin 1 each 11/02/18 16:40 Glycerin Suppository Adult - RC DAILY PRN CONSTIPATION Heparin Sodium (Porcine) 5,000 unit 11/02/18 22:00 11/03/18 14:10 Heparin - SQ Not Given TID LALO Sodium Chloride 250 mls @ 3,000 mls/hr 11/03/18 15:10 Normal Saline - IV 11/04/18 15:10 PRN PRN Hypotension during Dialysis Insulin Aspart 1 vial 11/02/18 22:00 11/03/18 11:58 Novolog Vial Sliding Scale - SQ 8 units ACHS LALO Administration Protocol Insulin Detemir 5 units 11/02/18 22:00 11/02/18 21:05 Levemir Vial SQ 5 units HS LALO Administration (Fluticasone/ 1 each 11/03/18 10:00 11/03/18 09:44 Vilanterol [Breo IH 1 each Ellipta 100-25 Mcg] DAILY LALO Administration Patient's Own Medication (Non- Formulary) Ondansetron HCl 4 mg 11/02/18 16:40 Zofran Injection IVPUSH Q6H PRN NAUSEA AND/OR VOMITING Polyethylene Glycol 17 gm 11/03/18 10:00 11/03/18 09:44 Miralax (For Daily Use) - PO Not Given DAILY LALO Propylthiouracil 50 mg 11/02/18 22:00 11/03/18 09:44 Ptu - PO 50 mg BID LALO Administration Rosuvastatin Calcium 10 mg 11/02/18 22:00 11/02/18 21:04 Crestor - PO 10 mg HS LALO Administration Senna 2 tab 11/02/18 22:00 Senna - PO HS PRN CONSTIPATION Torsemide 100 mg 11/03/18 10:00 11/03/18 09:43 Demadex - PO 100 mg DAILY LALO Administration ASSESSMENT/PLAN: Patient is a 63 year old female with history of CHF, NC s/p stents, CAD, DMII, hyperthyroidism, CKD stage V, HTN, HLD, presents with complaint of chest tightness, palpitations. Afib: -patient started on heparin drip here -Coreg 40 daily; which was decreased from 40 BID -continue tele monitoring; patient still having episodes of tachycardia; but less frequent since the increase in PTU dose Hyperthyroidism: -latest free t4 1.07 -on PTU 50 BID; tolerating -c/w beta isrrael therapy Caliectasis: -patient had right nephrostomy tube placed -monitor output -Dr. Menendez saw pt today, should get stent as an outpatient CKD stage V: -baseline Cr 3.2; currently 2.8 this morning- -patient had dialysis and AV fisula placement today -HD tomorrow CHF; -monitor daily weights -I's and O's -torsemide 100 daily DM -decreased levemir dosing from 20 units HS to 5 units HS as patients renal function is worsening and shes is becoming slightly more hypoglycemic -ISS ACHS -BGMS ACHS CAD -holding aspirin and prasugrel HTN -c/w coreg 40 daily F/E/N -no fluids -replete electrolytes accordingly -diabetic diet PPX: heparin drip for Afib Problem List - Problems (1) A-fib Code(s): I48.91 - UNSPECIFIED ATRIAL FIBRILLATION (2) Hyperthyroidism Code(s): E05.90 - THYROTOXICOSIS, UNSP WITHOUT THYROTOXIC CRISIS OR STORM (3) Acute pulmonary edema with congestive heart failure Code(s): I50.1 - LEFT VENTRICULAR FAILURE, UNSPECIFIED Visit type - Emergency Visit Emergency Visit: Yes ED Registration Date: 10/16/18 Care time: The patient presented to the Emergency Department on the above date and was hospitalized for further evaluation of their emergent condition. - New Patient This patient is new to me today: No - Critical Care Critical Care patient: No
[2018-11-03] MEDS ORDERED: diphenhydrAMINE HCL 25 MG CAPSULE (FP) PO ONE (17:06)
[2018-11-03] MEDS ORDERED: DESMOPRESSIN ACETATE 4 MCG/ML AMP IVPB ONE (18:25)
--- NOTE | 2018-11-03 19:34 | HOSP ---
Subjective - Review of Symptoms Subjective: Called by nurse at 7:15pm to evaluate patient for concern R nephrostomy tube may have come loose. The plastic apparatus taped to the patient's back had fallen off. However, nephrostomy tube remained at 18cm depth secured by intact suture. Wound was c/d/i. No abnormalities noted on exam. Apparatus reinforced with tape. Physical Examination Vital Signs: Vital Signs Temperature 98.2 F 11/03/18 18:00 Pulse Rate 117 H 11/03/18 18:00 Respiratory Rate 18 11/03/18 18:00 Blood Pressure 120/70 11/03/18 18:00 O2 Sat by Pulse Oximetry (%) 95 11/03/18 09:56 Labs: CBC, BMP 11/03/18 06:00 11/03/18 06:00
[2018-11-03] MEDS ORDERED: PT OWN MED DRAWER 7, Y5N ONE (20:38)
[2018-11-03] MEDS ORDERED: INSULIN SLIDING SCALE (NOVOLOG) 1 VIAL SQ ONE (21:13)
[2018-11-03] MEDS: ROSUVASTATIN CA 10 MG TABLET (FP) PO SCH (21:16)
[2018-11-03] MEDS: INSULIN (LEVEMIR) 100 UNITS/ML UNITS SQ SCH (21:22)
[2018-11-04] MEDS: INSULIN SLIDING SCALE (NOVOLOG) 1 VIAL SQ SCH ×4 (06:00→22:08)
[2018-11-04] MEDS: HEPARIN NA (PORCINE) 5,000 UNITS/ML 1ML VIAL SQ SCH ×3 (06:00→22:06)
[2018-11-04] MEDS: clonazePAM 0.5 MG TABLET PO SCH ×3 (06:00→17:05)
[2018-11-04] MEDS ORDERED: SODIUM CHLORIDE 250 ML IV PRN (06:59)
[2018-11-04] MEDS ORDERED: EPOETIN ALFA 10,000 UNIT/1 ML VIAL IVPUSH ONE (08:00)
[2018-11-04 09:30] LABS: HEMATOCRIT 27.6 % (32.4-45.2); HEMOGLOBIN 8.9 GM/dL (10.7-15.3); MCH 24.6 pg (25.7-33.7); MCHC 32.3 g/dl (32.0-36.0); MEAN CELL VOLUME 76.1 fl (80-96); MEAN PLT VOLUME 9.4 fl (7.5-11.1); PLATELET COUNT 139 K/MM3 (134-434); RBC 3.63 M/mm3 (3.60-5.2); RDW 16.5 % (11.6-15.6)
--- NOTE | 2018-11-04 09:51 | PN ---
Progress Note (short form) - Note Progress Note: History of Present Illness: no chest pain, palps, dizzy, lightheadedness, sob Current Medications Generic Name Dose Route Start Last Admin Trade Name Shan PRN Reason Stop Dose Admin Acetaminophen 500 mg 11/02/18 16:40 11/03/18 05:27 Tylenol - PO 500 mg Q6H PRN Administration PAIN 1-3 Aspirin 81 mg 11/03/18 10:00 11/03/18 09:41 Asa - PO 81 mg DAILY LALO Administration Carvedilol 40 mg 11/03/18 10:00 11/03/18 09:43 Coreg Cr - PO 40 mg DAILY LALO Administration Cholecalciferol 5,000 unit 11/03/18 10:00 11/03/18 11:58 Vitamin D3 - PO 5,000 unit DAILY LALO Administration Clonazepam 0.5 mg 11/03/18 05:30 11/04/18 06:00 Klonopin - PO 0.5 mg Q6HPO LALO Administration Docusate Sodium 100 mg 11/03/18 10:00 11/03/18 09:42 Colace - PO Not Given DAILY LALO Ezetimibe 10 mg 11/03/18 10:00 11/03/18 09:45 Zetia - PO 10 mg DAILY LALO Administration Glycerin 1 each 11/02/18 16:40 Glycerin Suppository Adult - RC DAILY PRN CONSTIPATION Heparin Sodium (Porcine) 5,000 unit 11/02/18 22:00 11/04/18 06:00 Heparin - SQ 5,000 unit TID LALO Administration Sodium Chloride 250 mls @ 3,000 mls/hr 11/04/18 06:59 Normal Saline - IV 11/04/18 19:00 PRN PRN Hypotension during Dialysis Insulin Aspart 1 vial 11/02/18 22:00 11/04/18 06:00 Novolog Vial Sliding Scale - SQ 4 units ACHS LALO Administration Protocol Insulin Detemir 5 units 11/02/18 22:00 11/03/18 21:22 Levemir Vial SQ 5 units HS LALO Administration (Fluticasone/ 1 each 11/03/18 10:00 11/03/18 09:44 Vilanterol [Breo IH 1 each Ellipta 100-25 Mcg] DAILY LALO Administration Patient's Own Medication (Non- Formulary) Ondansetron HCl 4 mg 11/02/18 16:40 Zofran Injection IVPUSH Q6H PRN NAUSEA AND/OR VOMITING Polyethylene Glycol 17 gm 11/03/18 10:00 11/03/18 09:44 Miralax (For Daily Use) - PO Not Given DAILY LALO Propylthiouracil 50 mg 11/02/18 22:00 11/03/18 21:16 Ptu - PO 50 mg BID LALO Administration Rosuvastatin Calcium 10 mg 11/02/18 22:00 11/03/18 21:16 Crestor - PO 10 mg HS LALO Administration Senna 2 tab 11/02/18 22:00 Senna - PO HS PRN CONSTIPATION Torsemide 100 mg 11/03/18 10:00 11/03/18 09:43 Demadex - PO 100 mg DAILY LALO Administration Vital Signs: Vital Signs Period Temp Pulse Resp BP Sys/Shankar Pulse Ox Last 24 Hr 97 F-98.2 F 70-120 18-20 90-127/46-93 95-97 Constitutional: Yes: Well Nourished, No Distress Eyes: No: Sclera Icterus HENT: No: Nasal Congestion Respiratory: Yes: CTA Bilaterally. No: Accessory Muscle Use, Rales, Wheezes Gastrointestinal: Yes: Normal Bowel Sounds. No: Distention, Hepatomegaly, Palpable Mass, Tenderness Cardiovascular: Yes: Regular Rate and Rhythm JVD: Yes Heart Sounds: Yes: S1, S2. No: Gallop Murmur: No: Systolic Murmur, Diastolic Murmur Extremities: No: Cool, Cyanosis Edema: Yes (1+ pretib) Peripheral Pulses: 2+ Left Carotid, 2+ Right Carotid, 2+ Left Doralis Pedis, 2+ Right Dorsalis Pedis Integumentary: No: Jaundice Neurological: Yes: Alert, Oriented (x3) Psychiatric: No: Agitated CBC, BMP 11/04/18 07:30 ECG: organized atrial activity: likely PAT with APCs, no definite flutter present. no fib. LVH with repol abn unchanged vs prior CXR: clear lungs Echo 07/2018 inf wall akinetic, other phillip severely hypokinetic, LV mildly dilated, RV function moderately reduced, LV function severely reduced, moderate MR, EF 30% Echo 12/2016: TDS. nl LV size/EF. mild LVH. grade 2 d.d., hi E/e' = high LAP. nl RV. mild LAE. mild-mod MR, mod TR. mild pHTN (46 mmHg) [facility] 2015: unchanged 70-80% distal RCA lesion. patent mLAD stent. 80-90% pLCX-- [employer] KAREN tele: sr, pacs a/p: 63 yo female hx cad/pci, hyperthyroidism with associated tachycardia, palpitations, unintentional wt loss, acute on chronic labile HTN with mult med intolerances, mildly decompensated diast chf, and new LE edema (out of proportion to the degree of CHF), p/w le edema,sob. 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 Chen d/w'd dr olsen. pt diureses briskly to iv lasix (100mg) here. ? will be able to maintain volume status with po torsemide +/- metolazone, and will not need maintenance HD. plan is to optimize her volume status as much as possible in next couple weeks (which will also help cardiac output and minimize gut edema/enhance bioavailability of po diuretics), then see if she can maintain without continued HD/UF (hi risk of permacath infection given chronic uncontrolled DM). - cont torsemide 100 po daily. low threshold to add metolazone. - bb dose limited by new hypotension/dizziness--has changed metoprolol succ to coreg CR and insists this causes her less dizziness. cont same coreg - holding hydral, NTG patch (hypotension) - not on SHAN/ARB in setting of ckd obstructive uropathy, OBI on CKD: -probably new baseline creatinine in 3-3.3 range based on recent labs trends recently bumped to 3.5 as outpt--? sec to obstruction -s/p nephrostomy tubes 10/19, creat rising sec to cardiorenal syndrome -now on HD, s/p avf hyperthyroidism, sinus tach, PAT: - intolerant of methimazole (elevated LFTs) - s/p radio-I ablation - high burden of ATach with LV systolic dysfunction, now with new afib - low dose PTU resumed, patient tolerating (pt self-discontinued it at home for nausea) with improvement in heart rate - metopr high dose appeared to control PAT burden better than carvedilol, however caused hypotension/dizzy and pt changed back. she declines changing back to metoprolol. (previously intolerant of atenolol, propranolol). - no amiodarone in light of uncontrolled hyperthyroidism. no digoxin in light of very low GFR. no CCB in light of systolic dysfxn and previous intolerance ( edema) - given low bp trend and weakness/dizziness, coreg CR was decreased to 40 daily dosing (pt with longstanding HTN baseline bp 140s-160s, often higher--may not tolerate bp 100-110) - TSH finally starting to come up - will consider ablation once renal fxn is stabilized, though doubt she is a candidate in current condition (tenuous HF status, uncontrolled hyperthyroidism) - given no fib present, and no definitive atr flutter thus far, will defer AC for now. LE swelling: - started at time of hyperthyroidism, and remains out of proportion to HF findings - responded well to wraps - diuresis, HD as above Elevated troponin - borderline trop similar to prior baseline values, flat trend--not c/w acs. - sec to HF/CKD labile HTN: -mult med intolerances in past -bp stable currently CAD, prior NSTEMI/PCI: -holding DAPT (aspirin/effient) s/p perc nephrostomy tube placement 10/19, DAPT restarted 10/30 - DAPT held now for planned AV fistula placement, last dose 11/01 -cont home statin (max tolerated dose rosuva 20 with drug holidays), zetia -bb as bp tolerates
[2018-11-04 10:05] LABS: ANION GAP 9 MMOL/L (8-16); BLOOD UREA NITROGEN 37 mg/dL (7-18); CALCIUM 7.9 mg/dL (8.5-10.1); CHLORIDE 100 mmol/L (98-107); CO2 26 mmol/L (21-32); CREATININE 3.1 mg/dL (0.55-1.3); GLUCOSE,RANDOM 180 mg/dL (74-106); MAGNESIUM 1.7 mg/dL (1.8-2.4); PHOSPHOROUS 3.2 mg/dL (2.5-4.9); POTASSIUM 4.1 mmol/L (3.5-5.1); SODIUM 136 mmol/L (136-145)
[2018-11-04] MEDS: CHOLECALCIFEROL (VITAMIN D3) 1,000 UNIT TABLET (FP) PO SCH (11:55)
[2018-11-04] MEDS: DOCUSATE SODIUM 100 MG CAPSULE (FP) PO SCH (11:55)
[2018-11-04] MEDS: POLYETHYLENE GLYCOL 3350 119 GM BTL PO SCH (11:58)
--- NOTE | 2018-11-04 11:58 | PN ---
Progress Note (short form) - Note Progress Note: Renal follow up for OBI/CKD Pt seen and examined at the bedside s/p dialysis this am tolerated it well 3.5L UF achieved, bp stable pt continues to have hematuria and baldder discomfort Vital Signs Temperature 97 F L 11/04/18 07:20 Pulse Rate 76 11/04/18 11:43 Respiratory Rate 18 11/04/18 11:43 Blood Pressure 114/72 11/04/18 11:43 O2 Sat by Pulse Oximetry (%) 95 11/04/18 09:00 Intake & Output 11/01/18 11/02/18 11/03/18 11/04/18 23:59 23:59 23:59 23:59 Intake Total 1350 570 470 Output Total 100 100 120 Balance 1250 470 350 Weight 99.45 kg 100.783 kg NAD left hand is warm, distal pules intact ++ edmea in Le no flank pain CBC, BMP 11/04/18 07:30 11/04/18 07:30 Current Medications Acetaminophen (Tylenol -) 500 mg PO Q6H PRN PRN Reason: PAIN 1-3 Last Admin: 11/03/18 05:27 Dose: 500 mg Aspirin (Asa -) 81 mg PO DAILY [facility] Last Admin: 11/03/18 09:41 Dose: 81 mg Carvedilol (Coreg Cr -) 40 mg PO DAILY [facility] Last Admin: 11/03/18 09:43 Dose: 40 mg Cholecalciferol (Vitamin D3 -) 5,000 unit PO DAILY [facility] Last Admin: 11/03/18 11:58 Dose: 5,000 unit Clonazepam (Klonopin -) 0.5 mg PO Q6HPO [facility] Last Admin: 11/04/18 06:00 Dose: 0.5 mg Docusate Sodium (Colace -) 100 mg PO DAILY [facility] Last Admin: 11/03/18 09:42 Dose: Not Given Ezetimibe (Zetia -) 10 mg PO DAILY [facility] Last Admin: 11/03/18 09:45 Dose: 10 mg Glycerin (Glycerin Suppository Adult -) 1 each RC DAILY PRN PRN Reason: CONSTIPATION Heparin Sodium (Porcine) (Heparin -) 5,000 unit SQ TID [facility] Last Admin: 11/04/18 06:00 Dose: 5,000 unit Sodium Chloride (Normal Saline -) 250 mls @ 3,000 mls/hr IV PRN PRN PRN Reason: Hypotension during Dialysis Stop: 11/04/18 19:00 Insulin Aspart (Novolog Vial Sliding Scale -) 1 vial SQ [facility]; Protocol Last Admin: 11/04/18 06:00 Dose: 4 units Insulin Detemir (Levemir Vial) 5 units SQ HS [facility] Last Admin: 11/03/18 21:22 Dose: 5 units (Fluticasone/Vilanterol [Breo Ellipta 100-25 Mcg] Patient's Own Medication (Non - Formulary) 1 each IH DAILY [facility] Last Admin: 11/03/18 09:44 Dose: 1 each Ondansetron HCl (Zofran Injection) 4 mg IVPUSH Q6H PRN PRN Reason: NAUSEA AND/OR VOMITING Polyethylene Glycol (Miralax (For Daily Use) -) 17 gm PO DAILY [facility] Last Admin: 11/03/18 09:44 Dose: Not Given Propylthiouracil (Ptu -) 50 mg PO BID [facility] Last Admin: 11/03/18 21:16 Dose: 50 mg Rosuvastatin Calcium (Crestor -) 10 mg PO HS [facility] Last Admin: 11/03/18 21:16 Dose: 10 mg Senna (Senna -) 2 tab PO HS PRN PRN Reason: CONSTIPATION Torsemide (Demadex -) 100 mg PO DAILY [facility] Last Admin: 11/03/18 09:43 Dose: 100 mg 63 yo F PMx DM, HTN, HLD, VT in 2012 s/p stents, CABG, Afib, asthma, hyperthyroidism s/p STEINBERG, CKD, anemia with mult med intolerances, with CP and palpitations #OBI on CKD with unilateral obstruction s/p nephrostomy tube now requiring dialysis (uremic symptoms + fluid overload) #Acute on chronic CHF (improving with UF and diuretics) #Hypertension #Anemia #Hyperthyroidism (TSH remains very low, on PTU) tolerated dialysis well today Hgb stable despite hematuria urine cutlures to be collected and pt to be started on emperic abx for UTI/ Pylonephritis Urology consult noted, will need outpatient antrograde stent continue supportive care Goyo Smith DO
[2018-11-04] MEDS: TORSEMIDE 100 MG TABLET PO SCH (11:59)
[2018-11-04] MEDS: CARVEDILOL PHOSPHATE CR 40 MG CAPSULE (FP) PO SCH (11:59)
[2018-11-04] MEDS: PROPYLTHIOURACIL 50 MG TABLET (UD) PO SCH ×2 (12:00→22:05)
[2018-11-04] MEDS: EZETIMIBE 10 MG TABLET (FP) PO SCH (12:01)
--- NOTE | 2018-11-04 12:35 | PN ---
Physical Exam: SUBJECTIVE: Patient seen and examined at bedside. patient is complaining of hematuria episodes and last night the nephrostmy tube seemed to have loosened. patient having HD today and also going for renal ultrasound. she denies any CP/ SOB/N/V fevers or chills. she is no longer experiencing any left extremity weakness post fistula placement. patient found to have positive UTI- cultures pending. OBJECTIVE: Vital Signs Period Temp Pulse Resp BP Sys/Shankar Pulse Ox Last 24 Hr 97 F-98.2 F 70-120 18-20 90-127/46-93 95-97 GENERAL: The patient is awake, alert, and fully oriented, EYES: no scleral icterus NECK: diminishing JVD. LUNGS: diminished breath sounds; no rales, rhonchi or wheezing. HEART: Regular rate and rhythm, S1, S2 without murmur, rub or gallop. ABDOMEN: Soft, distended +BS non-tender EXTREMITIES: 2+ pulses, warm, well-perfused, 2+ edema B/L. SKIN: Warm, dry, normal turgor, no rashes or lesions noted Laboratory Results - last 24 hr 11/03/18 11/03/18 11/03/18 11:55 16:00 16:55 WBC RBC Hgb Hct MCV MCH MCHC RDW Plt Count MPV Sodium Potassium Chloride Carbon Dioxide Anion Gap BUN Creatinine Creat Clearance w eGFR POC Glucometer 310 268 Random Glucose Calcium Phosphorus Magnesium Urine Color Red Urine Appearance Cloudy Urine pH 5.0 Ur Specific [place] 1.020 Urine Protein 2+ H Urine Glucose (UA) 2+ H Urine Ketones Trace H Urine Blood 2+ H Urine Nitrite Negative Urine Bilirubin Negative Urine Urobilinogen Negative Ur Leukocyte Esterase 1+ H Urine WBC (Auto) 322 Urine RBC (Auto) 1081 11/03/18 11/04/18 11/04/18 20:45 05:49 07:30 WBC RBC Hgb Hct MCV MCH MCHC RDW Plt Count MPV Sodium 136 Potassium 4.1 Chloride 100 Carbon Dioxide 26 Anion Gap 9 BUN 37 H Creatinine 3.1 H Creat Clearance w eGFR 15.18 POC Glucometer 189 230 Random Glucose 180 H Calcium 7.9 L Phosphorus 3.2 Magnesium 1.7 L Urine Color Urine Appearance Urine pH Ur Specific [place] Urine Protein Urine Glucose (UA) Urine Ketones Urine Blood Urine Nitrite Urine Bilirubin Urine Urobilinogen Ur Leukocyte Esterase Urine WBC (Auto) Urine RBC (Auto) 11/04/18 07:30 WBC 6.0 RBC 3.63 Hgb 8.9 L Hct 27.6 L MCV 76.1 L MCH 24.6 L MCHC 32.3 RDW 16.5 H Plt Count 139 MPV 9.4 Sodium Potassium Chloride Carbon Dioxide Anion Gap BUN Creatinine Creat Clearance w eGFR POC Glucometer Random Glucose Calcium Phosphorus Magnesium Urine Color Urine Appearance Urine pH Ur Specific [place] Urine Protein Urine Glucose (UA) Urine Ketones Urine Blood Urine Nitrite Urine Bilirubin Urine Urobilinogen Ur Leukocyte Esterase Urine WBC (Auto) Urine RBC (Auto) Active Medications Generic Name Dose Route Start Last Admin Trade Name Freq PRN Reason Stop Dose Admin Acetaminophen 500 mg 11/02/18 16:40 11/03/18 05:27 Tylenol - PO 500 mg Q6H PRN Administration PAIN 1-3 Aspirin 81 mg 11/03/18 10:00 11/03/18 09:41 Asa - PO 81 mg DAILY LALO Administration Carvedilol 40 mg 11/03/18 10:00 11/04/18 11:59 Coreg Cr - PO 40 mg DAILY LALO Administration Cholecalciferol 5,000 unit 11/03/18 10:00 11/04/18 11:55 Vitamin D3 - PO 5,000 unit DAILY LALO Administration Clonazepam 0.5 mg 11/03/18 05:30 11/04/18 11:56 Klonopin - PO 0.5 mg Q6HPO LALO Administration Docusate Sodium 100 mg 11/03/18 10:00 11/04/18 11:55 Colace - PO 100 mg DAILY LALO Administration Ezetimibe 10 mg 11/03/18 10:00 11/04/18 12:01 Zetia - PO 10 mg DAILY LALO Administration Glycerin 1 each 11/02/18 16:40 Glycerin Suppository Adult - RC DAILY PRN CONSTIPATION Heparin Sodium (Porcine) 5,000 unit 11/02/18 22:00 11/04/18 06:00 Heparin - SQ 5,000 unit TID LALO Administration Sodium Chloride 250 mls @ 3,000 mls/hr 11/04/18 06:59 Normal Saline - IV 11/04/18 19:00 PRN PRN Hypotension during Dialysis Insulin Aspart 1 vial 11/02/18 22:00 11/04/18 06:00 Novolog Vial Sliding Scale - SQ 4 units ACHS LALO Administration Protocol Insulin Detemir 5 units 11/02/18 22:00 11/03/18 21:22 Levemir Vial SQ 5 units HS LALO Administration Levofloxacin 500 mg 11/04/18 12:30 Levaquin - PO 11/04/18 12:31 ONCE ONE (Fluticasone/ 1 each 11/03/18 10:00 11/03/18 09:44 Vilanterol [Breo IH 1 each Ellipta 100-25 Mcg] DAILY LALO Administration Patient's Own Medication (Non- Formulary) Ondansetron HCl 4 mg 11/02/18 16:40 Zofran Injection IVPUSH Q6H PRN NAUSEA AND/OR VOMITING Polyethylene Glycol 17 gm 11/03/18 10:00 11/04/18 11:58 Miralax (For Daily Use) - PO 17 gm DAILY LALO Administration Propylthiouracil 50 mg 11/02/18 22:00 11/04/18 12:00 Ptu - PO 50 mg BID LALO Administration Rosuvastatin Calcium 10 mg 11/02/18 22:00 11/03/18 21:16 Crestor - PO 10 mg HS LALO Administration Senna 2 tab 11/02/18 22:00 Senna - PO HS PRN CONSTIPATION Torsemide 100 mg 11/03/18 10:00 11/04/18 11:59 Demadex - PO 100 mg DAILY LALO Administration ASSESSMENT/PLAN: Patient is a 63 year old female with history of CHF, [place] s/p stents, CAD, DMII, hyperthyroidism, CKD stage V, HTN, HLD, presents with complaint of chest tightness, palpitations. Afib: -patient started on heparin drip here -Coreg 40 daily; which was decreased from 40 BID -continue tele monitoring; patient still having episodes of tachycardia; but less frequent since the increase in PTU dose Hyperthyroidism: -latest free t4 1.07 -on PTU 50 BID; tolerating -c/w beta isrrael therapy Caliectasis: -patient had right nephrostomy tube placed -monitor output -Dr. Menendez saw pt today, should get anterograde stent as an outpatient -patients nephrostomy tube was loose overnight; patient is now having hematuria will talk to Dr. Puri regarding tube CKD stage V: -baseline Cr 3.2; currently 2.8 this morning- -patient had dialysis and AV fisula placement today -HD today CHF; -monitor daily weights -I's and O's -torsemide 100 daily DM -decreased levemir dosing from 20 units HS to 5 units HS as patients renal function is worsening and shes is becoming slightly more hypoglycemic -ISS ACHS -BGMS ACHS CAD -holding aspirin and prasugrel HTN -c/w coreg 40 daily UTI -cultures pending -starting levaquin 500 daily F/E/N -no fluids -replete electrolytes accordingly -diabetic diet PPX: heparin drip for Afib Problem List - Problems (1) A-fib Code(s): I48.91 - UNSPECIFIED ATRIAL FIBRILLATION (2) Hyperthyroidism Code(s): E05.90 - THYROTOXICOSIS, UNSP WITHOUT THYROTOXIC CRISIS OR STORM (3) Acute pulmonary edema with congestive heart failure Code(s): I50.1 - LEFT VENTRICULAR FAILURE, UNSPECIFIED Visit type - Emergency Visit Emergency Visit: Yes ED Registration Date: 10/16/18 Care time: The patient presented to the Emergency Department on the above date and was hospitalized for further evaluation of their emergent condition. - New Patient This patient is new to me today: No - Critical Care Critical Care patient: No
[2018-11-04] MEDS: [UNRECOGNIZED DRUG - OTHER] IH SCH (13:02)
[2018-11-04 15:48] VITALS: BMI 36.9
--- NOTE | 2018-11-04 15:54 | EKG ---
Test Reason : Blood Pressure : / mmHG Vent. Rate : 125 BPM Atrial Rate : 125 BPM P-R Int : 188 ms QRS Dur : 080 ms QT Int : 322 ms P-R-T Axes : 036 047 230 degrees QTc Int : 464 ms SVT. Probably atrial tachycardia T WAVE ABNORMALITY, CONSIDER INFEROLATERAL ISCHEMIA ABNORMAL ECG Confirmed by JULISSA GALVAN MD ([id number]) on 11/04/2018 3:54:22 PM Referred By: Confirmed By:JULISSA GALVAN MD
--- NOTE | 2018-11-04 16:42 | PN ---
Teaching Attending Note Name of Resident: Charmaine Banda ATTENDING PHYSICIAN STATEMENT I saw and evaluated the patient. I reviewed the resident's note and discussed the case with the resident. I agree with the resident's findings and plan as documented with exceptions below. SUBJECTIVE: Patient seen and examined. Left arm weakness/numbness improved. C/o urinary furgency and dysuria. Denies any right flank pain, fevers, chills, chest pain or palpitations. OBJECTIVE: Vital Signs Period Temp Pulse Resp BP Sys/Shankar Pulse Ox Last 24 Hr 97 F-98.2 F 70-120 18-19 90-127/46-93 95-97 Intake & Output 11/01/18 11/02/18 11/03/18 11/04/18 23:59 23:59 23:59 23:59 Intake Total 1350 570 470 Output Total 100 100 120 Balance 1250 470 350 Weight 219 lb 4 oz 222 lb 3 oz General: lying in bed in no acute distress Chest: decreased breath sounds at bases Abdomen:Soft, unchanged distension, mild suprapubic tenderness, no Rt CVA tenderness noted, Right nephrostomy with sanguinous drainage Extremities: unchanged pedal edema Laboratory Results - last 24 hr 11/03/18 11/03/18 11/03/18 16:00 16:55 20:45 WBC RBC Hgb Hct MCV MCH MCHC RDW Plt Count MPV Sodium Potassium Chloride Carbon Dioxide Anion Gap BUN Creatinine Creat Clearance w eGFR POC Glucometer 268 189 Random Glucose Calcium Phosphorus Magnesium Urine Color Red Urine Appearance Cloudy Urine pH 5.0 Ur Specific [place] 1.020 Urine Protein 2+ H Urine Glucose (UA) 2+ H Urine Ketones Trace H Urine Blood 2+ H Urine Nitrite Negative Urine Bilirubin Negative Urine Urobilinogen Negative Ur Leukocyte Esterase 1+ H Urine WBC (Auto) 322 Urine RBC (Auto) 1081 11/04/18 11/04/18 11/04/18 05:49 07:30 07:30 WBC 6.0 RBC 3.63 Hgb 8.9 L Hct 27.6 L MCV 76.1 L MCH 24.6 L MCHC 32.3 RDW 16.5 H Plt Count 139 MPV 9.4 Sodium 136 Potassium 4.1 Chloride 100 Carbon Dioxide 26 Anion Gap 9 BUN 37 H Creatinine 3.1 H Creat Clearance w eGFR 15.18 POC Glucometer 230 Random Glucose 180 H Calcium 7.9 L Phosphorus 3.2 Magnesium 1.7 L Urine Color Urine Appearance Urine pH Ur Specific [place] Urine Protein Urine Glucose (UA) Urine Ketones Urine Blood Urine Nitrite Urine Bilirubin Urine Urobilinogen Ur Leukocyte Esterase Urine WBC (Auto) Urine RBC (Auto) 11/04/18 12:08 WBC RBC Hgb Hct MCV MCH MCHC RDW Plt Count MPV Sodium Potassium Chloride Carbon Dioxide Anion Gap BUN Creatinine Creat Clearance w eGFR POC Glucometer 174 Random Glucose Calcium Phosphorus Magnesium Urine Color Urine Appearance Urine pH Ur Specific [place] Urine Protein Urine Glucose (UA) Urine Ketones Urine Blood Urine Nitrite Urine Bilirubin Urine Urobilinogen Ur Leukocyte Esterase Urine WBC (Auto) Urine RBC (Auto) CT A/P results reviewed EKG QTC 460s ASSESSMENT AND PLAN: 63 yo F PMx DM, HTN, HLD, [place] in 2012 s/p stents, CABG, Afib, asthma, hyperthyroidism s/p I-131, CKD, anemia with multi med intolerances, with Chest Pain and palpitations -COmplicated UTI -New severe LV systolic dysfunction,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 -Atrial tachycardia with RVR -Hyperthyroidism s/p I-131 -Obstructive uropathy from urinary tract anomaly s/p Right nephrostomy tube placement 10/19 -Acute on CKD stage III, suspect suspect cardiorenal from poor perfusion, started on HD 10/27 via permacath -Elevated troponin, suspect demand induced from above -CAD s/p PCI 2012, s/p CABG -Asthma -Anemia Plan: Nephrostomy tube with sanguinous drainage, ua noted. Urine cx sent from nephrostomy tube sent. QTC noted. Start levaquin renal dosing. CT A/P with no new concerns. Discussed with Dr. Espinosa, no additional recs. ASA /Prasugrel on hold today given new bloody drainage. resume in 24 hours if improved and h/h stable. Urology input noted, outpatient follow up for anterograde stent. LUE symptoms likely from anesthesia block as discussed with vascular surgery and anesthesia, almost resolved. Dry weight 205. s/p HD started on 10/27. Volume status improving. Nephrology/Cardiology input noted. Torsemide 100 mg daily. s/p AV fistula placement 11/02. Will be assess for need for ongoing HD over next few months based on volume status and renal function. HR overall improved. Reports better tolerance to Coreg, continue for now. TSH continues to improve. Continue PTU BID, Endocrine input appreciated. Hydronephrosis resolved on repeat imaging. Plan per urology. Troponin flat, suspect demand mediated. had recent PCI and no repeat CP since then. DAPT held for nephrostomy placement , now with bloody drainage. Resume as above. Levemir 5 units hs for now, ISS, diabetic diet. Monitor insulin requirements while renal function improves. DVTPPX heparin Dispo hold off on d/c plans given bloody drainage and concerns for complicated UTI Plan discussed with patient in detail, all questions answered.
[2018-11-04] MEDS ORDERED: PT OWN MED DRAWER 7, Y5N ONE (21:14)
[2018-11-04] MEDS: ROSUVASTATIN CA 10 MG TABLET (FP) PO SCH (22:05)
[2018-11-04] MEDS: INSULIN (LEVEMIR) 100 UNITS/ML UNITS SQ SCH (22:08)
[2018-11-05] MEDS: clonazePAM 0.5 MG TABLET PO SCH ×4 (00:21→18:16)
[2018-11-05] MEDS: ACETAMINOPHEN 500 MG TABLET (FP) PO PRN (00:22)
[2018-11-05] MEDS ORDERED: traMADol HCL 50 MG TABLET PO ONE (01:54)
--- NOTE | 2018-11-05 05:15 | PN ---
<Tamara Garcia - Last Filed: 11/05/18 11:15> Physical Exam: SUBJECTIVE: Patient seen and examined OBJECTIVE: Vital Signs Period Temp Pulse Resp BP Sys/Shankar Pulse Ox Last 24 Hr 97.1 F-98.7 F 74-125 16-19 104-135/55-75 100 GENERAL: The patient is awake, alert, and fully oriented, in no acute distress. HEAD: Normal with no signs of trauma. EYES: PERRL, extraocular movements intact, sclera anicteric, conjunctiva clear. No ptosis. ENT: Ears normal, nares patent, oropharynx clear without exudates, moist mucous membranes. NECK: Trachea midline, full range of motion, supple. LUNGS: Breath sounds equal, clear to auscultation bilaterally, no wheezes, no crackles, no accessory muscle use. HEART: Regular rate and rhythm, S1, S2 without murmur, rub or gallop. ABDOMEN: Soft, nontender, nondistended, normoactive bowel sounds, no guarding, no rebound, no hepatosplenomegaly, no masses. EXTREMITIES: 2+ pulses, warm, well-perfused, no edema. NEUROLOGICAL: Cranial nerves II through XII grossly intact. Normal speech, gait not observed. PSYCH: Normal mood, normal affect. SKIN: Warm, dry, normal turgor, no rashes or lesions noted Laboratory Results - last 24 hr 11/04/18 11/04/18 11/04/18 12:08 16:27 22:02 WBC RBC Hgb Hct MCV MCH MCHC RDW Plt Count MPV Sodium Potassium Chloride Carbon Dioxide Anion Gap BUN Creatinine Creat Clearance w eGFR POC Glucometer 174 145 141 Random Glucose Calcium Phosphorus Magnesium Troponin I 11/05/18 11/05/18 11/05/18 02:30 06:30 06:30 WBC 4.9 RBC 3.63 Hgb 9.0 L Hct 27.8 L MCV 76.5 L MCH 24.9 L MCHC 32.5 RDW 16.0 H Plt Count 140 MPV 8.3 D Sodium 136 Potassium 4.2 Chloride 98 Carbon Dioxide 29 Anion Gap 8 BUN 27 H Creatinine 2.5 H Creat Clearance w eGFR 19.45 POC Glucometer Random Glucose 123 H Calcium 7.9 L Phosphorus 2.2 L Magnesium 1.6 L Troponin I 0.23 H 11/05/18 06:47 WBC RBC Hgb Hct MCV MCH MCHC RDW Plt Count MPV Sodium Potassium Chloride Carbon Dioxide Anion Gap BUN Creatinine Creat Clearance w eGFR POC Glucometer 123 Random Glucose Calcium Phosphorus Magnesium Troponin I Active Medications Generic Name Dose Route Start Last Admin Trade Name Freq PRN Reason Stop Dose Admin Acetaminophen 500 mg 11/02/18 16:40 11/05/18 00:22 Tylenol - PO 500 mg Q6H PRN Administration PAIN 1-3 Aspirin 81 mg 11/03/18 10:00 11/03/18 09:41 Asa - PO 81 mg DAILY LLAO Administration Carvedilol 40 mg 11/03/18 10:00 11/05/18 09:46 Coreg Cr - PO 40 mg DAILY LALO Administration Cholecalciferol 5,000 unit 11/03/18 10:00 11/05/18 09:41 Vitamin D3 - PO 5,000 unit DAILY LALO Administration Clonazepam 0.5 mg 11/03/18 05:30 11/05/18 06:52 Klonopin - PO 0.5 mg Q6HPO LALO Administration Docusate Sodium 100 mg 11/03/18 10:00 11/05/18 09:41 Colace - PO 100 mg DAILY LALO Administration Ezetimibe 10 mg 11/03/18 10:00 11/05/18 09:44 Zetia - PO 10 mg DAILY LALO Administration Glycerin 1 each 11/02/18 16:40 Glycerin Suppository Adult - RC DAILY PRN CONSTIPATION Heparin Sodium (Porcine) 5,000 unit 11/02/18 22:00 11/05/18 06:55 Heparin - SQ 5,000 unit TID LALO Administration Sodium Phosphate 25 mm/ Sodium 508.3333 mls @ 63.542 mls/hr 11/05/18 09:08 Chloride IVPB 11/05/18 17:07 ONCE ONE Insulin Aspart 1 vial 11/02/18 22:00 11/05/18 07:07 Novolog Vial Sliding Scale - SQ Not Given ACHS [facility] Protocol Insulin Detemir 5 units 11/02/18 22:00 11/04/18 22:08 Levemir Vial SQ Not Given HS LALO Levofloxacin 250 mg 11/05/18 06:00 11/05/18 06:55 Levaquin - PO 250 mg 0600 LALO Administration (Fluticasone/ 1 each 11/03/18 10:00 11/05/18 09:43 Vilanterol [Breo IH 1 each Ellipta 100-25 Mcg] DAILY LALO Administration Patient's Own Medication (Non- Formulary) Ondansetron HCl 4 mg 11/02/18 16:40 Zofran Injection IVPUSH Q6H PRN NAUSEA AND/OR VOMITING Polyethylene Glycol 17 gm 11/03/18 10:00 11/05/18 09:43 Miralax (For Daily Use) - PO Not Given DAILY LALO Prasugrel 10 mg 11/05/18 10:00 Effient - PO DAILY LALO Propylthiouracil 50 mg 11/02/18 22:00 11/05/18 09:44 Ptu - PO 50 mg BID LALO Administration Rosuvastatin Calcium 10 mg 11/02/18 22:00 11/04/18 22:05 Crestor - PO 10 mg HS LALO Administration Senna 2 tab 11/02/18 22:00 Senna - PO HS PRN CONSTIPATION Torsemide 100 mg 11/03/18 10:00 11/05/18 09:43 Demadex - PO 100 mg DAILY LALO Administration ASSESSMENT/PLAN: Problem List - Problems (1) A-fib Code(s): I48.91 - UNSPECIFIED ATRIAL FIBRILLATION (2) Acute on chronic heart failure Code(s): I50.9 - HEART FAILURE, UNSPECIFIED (3) Hyperthyroidism Code(s): E05.90 - THYROTOXICOSIS, UNSP WITHOUT THYROTOXIC CRISIS OR STORM (4) Acute CHF Code(s): I50.9 - HEART FAILURE, UNSPECIFIED Qualifiers: Heart failure type: systolic Qualified Code(s): I50.21 - Acute systolic ( congestive) heart failure (5) Acute on chronic kidney failure Code(s): N17.9 - ACUTE KIDNEY FAILURE, UNSPECIFIED; N18.9 - CHRONIC KIDNEY DISEASE, UNSPECIFIED Qualifiers: Chronic kidney disease stage: stage 5, not on chronic dialysis (6) CAD (coronary artery disease) Code(s): I25.10 - ATHSCL HEART DISEASE OF [place] CORONARY ARTERY W/O ANG PCTRS Qualifiers: Coronary Disease-Associated Artery/Lesion type: [place] artery [place] vs. transplanted heart: [place] heart Associated angina: without angina Qualified Code(s): I25.10 - Atherosclerotic heart disease of [place] coronary artery without angina pectoris (7) CHF exacerbation Code(s): I50.9 - HEART FAILURE, UNSPECIFIED Qualifiers: Heart failure type: unspecified Qualified Code(s): I50.9 - Heart failure, unspecified (8) CKD (chronic kidney disease) Code(s): N18.9 - CHRONIC KIDNEY DISEASE, UNSPECIFIED Qualifiers: Chronic kidney disease stage: stage 4 (severe) Qualified Code(s): N18.4 - Chronic kidney disease, stage 4 (severe) (9) Hydronephrosis Code(s): N13.30 - UNSPECIFIED HYDRONEPHROSIS (10) Thyrotoxicosis Code(s): E05.90 - THYROTOXICOSIS, UNSP WITHOUT THYROTOXIC CRISIS OR STORM Qualifiers: Thyrotoxicosis type: unspecified thyrotoxicosis type Thyrotoxic crisis or storm presence: with thyrotoxic crisis or storm Qualified Code(s): E05.91 - Thyrotoxicosis, unspecified with thyrotoxic crisis or storm (11) HTN (hypertension) Code(s): I10 - ESSENTIAL (PRIMARY) HYPERTENSION (12) IDDM (insulin dependent diabetes mellitus) Code(s): E11.9 - TYPE 2 DIABETES MELLITUS WITHOUT COMPLICATIONS; Z79.4 - [employer] (CURRENT) USE OF INSULIN <Tom Dobbins - Last Filed: 11/05/18 11:44> Physical Exam: SUBJECTIVE: Patient seen and examined OBJECTIVE: Vital Signs Period Temp Pulse Resp BP Sys/Shankar Pulse Ox Last 24 Hr 97 F-98.0 F 70-125 16-19 90-127/50-93 95-100 GENERAL: The patient is awake, alert, and fully oriented, in no acute distress. HEAD: Normal with no signs of trauma. EYES: PERRL, extraocular movements intact, sclera anicteric, conjunctiva clear. No ptosis. ENT: Ears normal, nares patent, oropharynx clear without exudates, moist mucous membranes. NECK: Trachea midline, full range of motion, supple. LUNGS: Breath sounds equal, clear to auscultation bilaterally, no wheezes, no crackles, no accessory muscle use. HEART: Regular rate and rhythm, S1, S2 without murmur, rub or gallop. ABDOMEN: Soft, nontender, nondistended, normoactive bowel sounds, no guarding, no rebound, no hepatosplenomegaly, no masses. EXTREMITIES: 2+ pulses, warm, well-perfused, no edema. NEUROLOGICAL: Cranial nerves II through XII grossly intact. Normal speech, gait not observed. PSYCH: Normal mood, normal affect. SKIN: Warm, dry, normal turgor, no rashes or lesions noted Laboratory Results - last 24 hr 11/04/18 11/04/18 11/04/18 05:49 07:30 07:30 WBC 6.0 RBC 3.63 Hgb 8.9 L Hct 27.6 L MCV 76.1 L MCH 24.6 L MCHC 32.3 RDW 16.5 H Plt Count 139 MPV 9.4 Sodium 136 Potassium 4.1 Chloride 100 Carbon Dioxide 26 Anion Gap 9 BUN 37 H Creatinine 3.1 H Creat Clearance w eGFR 15.18 POC Glucometer 230 Random Glucose 180 H Calcium 7.9 L Phosphorus 3.2 Magnesium 1.7 L Troponin I 11/04/18 11/04/18 11/04/18 12:08 16:27 22:02 WBC RBC Hgb Hct MCV MCH MCHC RDW Plt Count MPV Sodium Potassium Chloride Carbon Dioxide Anion Gap BUN Creatinine Creat Clearance w eGFR POC Glucometer 174 145 141 Random Glucose Calcium Phosphorus Magnesium Troponin I 11/05/18 02:30 WBC RBC Hgb Hct MCV MCH MCHC RDW Plt Count MPV Sodium Potassium Chloride Carbon Dioxide Anion Gap BUN Creatinine Creat Clearance w eGFR POC Glucometer Random Glucose Calcium Phosphorus Magnesium Troponin I 0.23 H Active Medications Generic Name Dose Route Start Last Admin Trade Name Freq PRN Reason Stop Dose Admin Acetaminophen 500 mg 11/02/18 16:40 11/05/18 00:22 Tylenol - PO 500 mg Q6H PRN Administration PAIN 1-3 Aspirin 81 mg 11/03/18 10:00 11/03/18 09:41 Asa - PO 81 mg DAILY LALO Administration Carvedilol 40 mg 11/03/18 10:00 11/04/18 11:59 Coreg Cr - PO 40 mg DAILY LALO Administration Cholecalciferol 5,000 unit 11/03/18 10:00 11/04/18 11:55 Vitamin D3 - PO 5,000 unit DAILY LALO Administration Clonazepam 0.5 mg 11/03/18 05:30 11/05/18 00:21 Klonopin - PO 0.5 mg Q6HPO LALO Administration Docusate Sodium 100 mg 11/03/18 10:00 11/04/18 11:55 Colace - PO 100 mg DAILY LALO Administration Ezetimibe 10 mg 11/03/18 10:00 11/04/18 12:01 Zetia - PO 10 mg DAILY LALO Administration Glycerin 1 each 11/02/18 16:40 Glycerin Suppository Adult - RC DAILY PRN CONSTIPATION Heparin Sodium (Porcine) 5,000 unit 11/02/18 22:00 11/04/18 22:06 Heparin - SQ 5,000 unit TID LALO Administration Insulin Aspart 1 vial 11/02/18 22:00 11/04/18 22:08 Novolog Vial Sliding Scale - SQ Not Given ACHS LALO Protocol Insulin Detemir 5 units 11/02/18 22:00 11/04/18 22:08 Levemir Vial SQ Not Given HS LALO Levofloxacin 250 mg 11/05/18 06:00 Levaquin - PO 0600 LALO (Fluticasone/ 1 each 11/03/18 10:00 11/04/18 13:02 Vilanterol [Breo IH 1 each Ellipta 100-25 Mcg] DAILY LALO Administration Patient's Own Medication (Non- Formulary) Ondansetron HCl 4 mg 11/02/18 16:40 Zofran Injection IVPUSH Q6H PRN NAUSEA AND/OR VOMITING Polyethylene Glycol 17 gm 11/03/18 10:00 11/04/18 11:58 Miralax (For Daily Use) - PO 17 gm DAILY LALO Administration Propylthiouracil 50 mg 11/02/18 22:00 11/04/18 22:05 Ptu - PO 50 mg BID LALO Administration Rosuvastatin Calcium 10 mg 11/02/18 22:00 11/04/18 22:05 Crestor - PO 10 mg HS LALO Administration Senna 2 tab 11/02/18 22:00 Senna - PO HS PRN CONSTIPATION Torsemide 100 mg 11/03/18 10:00 11/04/18 11:59 Demadex - PO 100 mg DAILY LALO Administration ASSESSMENT/PLAN: Patient is a 63 year old female with history of CHF, [place] s/p stents, CAD, DMII, hyperthyroidism, CKD stage V, HTN, HLD, presents with complaint of chest tightness, palpitations. Afib: -patient started on heparin drip here -Coreg 40 daily; which was decreased from 40 BID -continue tele monitoring; patient still having episodes of tachycardia; but less frequent since the increase in PTU dose Hyperthyroidism: -latest free t4 1.07 -on PTU 50 BID; tolerating -c/w beta isrrael therapy Caliectasis: -patient had right nephrostomy tube placed -monitor output -Dr. Menendez saw pt today, should get anterograde stent as an outpatient -patients nephrostomy tube was loose overnight; patient is now having hematuria will talk to Dr. Puri regarding tube CKD stage V: -baseline Cr 3.2; currently 2.8 this morning- -patient had dialysis and AV fisula placement today -HD today CHF; -monitor daily weights -I's and O's -torsemide 100 daily DM -decreased levemir dosing from 20 units HS to 5 units HS as patients renal function is worsening and shes is becoming slightly more hypoglycemic -ISS ACHS -BGMS ACHS CAD -holding aspirin and prasugrel HTN -c/w coreg 40 daily UTI -cultures pending -starting levaquin 500 daily F/E/N -no fluids -replete electrolytes accordingly -diabetic diet PPX: heparin drip for Afib
[2018-11-05] MEDS: HEPARIN NA (PORCINE) 5,000 UNITS/ML 1ML VIAL SQ SCH ×3 (06:55→21:37)
[2018-11-05 06:58] LABS: HEMATOCRIT 27.8 % (32.4-45.2); MCH 24.9 pg (25.7-33.7); MCHC 32.5 g/dl (32.0-36.0); MEAN CELL VOLUME 76.5 fl (80-96); MEAN PLT VOLUME 8.3 fl (7.5-11.1); PLATELET COUNT 140 K/MM3 (134-434); RBC 3.63 M/mm3 (3.60-5.2); WHITE BLOOD COUNT 4.9 K/mm3 (4.0-10.0)
[2018-11-05] MEDS: INSULIN SLIDING SCALE (NOVOLOG) 1 VIAL SQ SCH ×4 (07:07→21:37)
[2018-11-05 07:41] LABS: ANION GAP 8 MMOL/L (8-16); BLOOD UREA NITROGEN 27 mg/dL (7-18); CALCIUM 7.9 mg/dL (8.5-10.1); CHLORIDE 98 mmol/L (98-107); CO2 29 mmol/L (21-32); CREATININE 2.5 mg/dL (0.55-1.3); GLUCOSE,RANDOM 123 mg/dL (74-106); MAGNESIUM 1.6 mg/dL (1.8-2.4); PHOSPHOROUS 2.2 mg/dL (2.5-4.9); POTASSIUM 4.2 mmol/L (3.5-5.1); SODIUM 136 mmol/L (136-145)
--- NOTE | 2018-11-05 08:50 | PN ---
Progress Note, Physician Chief Complaint: chf History of Present Illness: no dizzy. HR rapid more often--feels it. no sob, orthopnea. had pain last night in sternum and R subclavicular region. woke her from sleep. resolved on its own, quickly. was mild intensity. no assctd diaph, sob. no more cp today leg swelling not improved. no cigs - Current Medication List Current Medications: Active Medications Acetaminophen (Tylenol -) 500 mg PO Q6H PRN PRN Reason: PAIN 1-3 Last Admin: 11/05/18 00:22 Dose: 500 mg Aspirin (Asa -) 81 mg PO DAILY [facility] Last Admin: 11/03/18 09:41 Dose: 81 mg Carvedilol (Coreg Cr -) 40 mg PO DAILY [facility] Last Admin: 11/04/18 11:59 Dose: 40 mg Cholecalciferol (Vitamin D3 -) 5,000 unit PO DAILY [facility] Last Admin: 11/04/18 11:55 Dose: 5,000 unit Clonazepam (Klonopin -) 0.5 mg PO Q6HPO [facility] Last Admin: 11/05/18 06:52 Dose: 0.5 mg Docusate Sodium (Colace -) 100 mg PO DAILY [facility] Last Admin: 11/04/18 11:55 Dose: 100 mg Ezetimibe (Zetia -) 10 mg PO DAILY [facility] Last Admin: 11/04/18 12:01 Dose: 10 mg Glycerin (Glycerin Suppository Adult -) 1 each RC DAILY PRN PRN Reason: CONSTIPATION Heparin Sodium (Porcine) (Heparin -) 5,000 unit SQ TID [facility] Last Admin: 11/05/18 06:55 Dose: 5,000 unit Insulin Aspart (Novolog Vial Sliding Scale -) 1 vial SQ [facility]; Protocol Last Admin: 11/05/18 07:07 Dose: Not Given Insulin Detemir (Levemir Vial) 5 units SQ HS [facility] Last Admin: 11/04/18 22:08 Dose: Not Given Levofloxacin (Levaquin -) 250 mg PO 0600 [facility] Last Admin: 11/05/18 06:55 Dose: 250 mg (Fluticasone/Vilanterol [Breo Ellipta 100-25 Mcg] Patient's Own Medication (Non - Formulary) 1 each IH DAILY [facility] Last Admin: 11/04/18 13:02 Dose: 1 each Ondansetron HCl (Zofran Injection) 4 mg IVPUSH Q6H PRN PRN Reason: NAUSEA AND/OR VOMITING Polyethylene Glycol (Miralax (For Daily Use) -) 17 gm PO DAILY [facility] Last Admin: 11/04/18 11:58 Dose: 17 gm Propylthiouracil (Ptu -) 50 mg PO BID [facility] Last Admin: 11/04/18 22:05 Dose: 50 mg Rosuvastatin Calcium (Crestor -) 10 mg PO HS [facility] Last Admin: 11/04/18 22:05 Dose: 10 mg Senna (Senna -) 2 tab PO HS PRN PRN Reason: CONSTIPATION Torsemide (Demadex -) 100 mg PO DAILY [facility] Last Admin: 11/04/18 11:59 Dose: 100 mg - Objective Vital Signs: Vital Signs Temperature 98.7 F 11/05/18 06:00 Pulse Rate 121 H 11/05/18 06:00 Respiratory Rate 19 11/05/18 06:00 Blood Pressure 135/69 11/05/18 06:00 O2 Sat by Pulse Oximetry (%) 100 11/04/18 21:00 Constitutional: Yes: No Distress, Calm Eyes: No: Sclera Icterus HENT: No: Nasal Congestion Cardiovascular: Yes: Regular Rate and Rhythm, S1, S2, Other (PMI non diplaced). No: Gallop, Murmur Respiratory: Yes: CTA Bilaterally. No: Accessory Muscle Use Gastrointestinal: Yes: Normal Bowel Sounds, Soft. No: Tenderness Musculoskeletal: Yes: Other (No kyphosis) Extremities: No: Cyanosis Edema: No Integumentary: No: Jaundice Neurological: Yes: Alert, Oriented (x3) Psychiatric: No: Agitated Labs: CBC, BMP 11/05/18 06:30 11/05/18 06:30 INR, PTT INR 1.34 (0.83-1.09) H 10/16/18 16:54 Assessment/Plan ECG's 11/04, 11/05: tachy (AT), nonsp ST-Ts lateral and inferior--no change vs prior CXR: clear lungs Echo 07/2018 inf wall akinetic, other phillip severely hypokinetic, LV mildly dilated, RV function moderately reduced, LV function severely reduced, moderate MR, EF 30% Echo 12/2016: TDS. nl LV size/EF. mild LVH. grade 2 d.d., hi E/e' = high LAP. nl RV. mild LAE. mild-mod MR, mod TR. mild pHTN (46 mmHg) [facility] 2014: unchanged 70-80% distal RCA lesion. patent mLAD stent. 80-90% pLCX-- [facility] KAREN tele: AT 120s >> sinus rhythm a/p: 63 yo female hx cad/pci, hyperthyroidism with associated tachycardia, palpitations, unintentional wt loss, acute on chronic labile HTN with mult med intolerances, mildly decompensated diast chf, and new LE edema (out of proportion to the degree of CHF), p/w le edema,sob. 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 Chen d/w'd dr olsen. pt diureses briskly to iv lasix (100mg) here. ? will be able to maintain volume status with po torsemide +/- metolazone, and will not need maintenance HD. plan is to optimize her volume status as much as possible in next couple weeks (which will also help cardiac output and minimize gut edema/enhance bioavailability of po diuretics), then see if she can maintain without continued HD/UF (hi risk of permacath infection given chronic uncontrolled DM). - 11/01-present: tolerating HD/UF well, effective volume removal, wt down. cont torsemide 100 po daily. - bb dose limited by new hypotension/dizziness--has changed metoprolol succ to coreg CR and insists this causes her less dizziness. cont same coreg - holding hydral, NTG patch (hypotension) - not on SHAN/ARB in setting of ckd obstructive uropathy, OBI on CKD: -probably new baseline creatinine in 3-3.3 range based on recent labs trends -recently bumped to 3.5 as outpt--? sec to obstruction -s/p nephrostomy tubes 10/19, creat rising sec to cardiorenal syndrome -now on HD, s/p avf -hematuria/dysuria, plan for outpt stent per hyperthyroidism, sinus tach, PAT (note: no afib/flutter present thus far): - intolerant of methimazole (elevated LFTs) - s/p radio-I ablation - high burden of ATach with LV systolic dysfunction, now with new afib - low dose PTU resumed, patient tolerating (pt self-discontinued it at home for nausea) with improvement in heart rate - metopr high dose appeared to control PAT burden better than carvedilol, however caused hypotension/dizzy and pt changed back. she declines changing back to metoprolol. (previously intolerant of atenolol, propranolol). - no amiodarone in light of uncontrolled hyperthyroidism. no digoxin in light of very low GFR. no CCB in light of systolic dysfxn and previous intolerance ( edema) - given low bp trend and weakness/dizziness, coreg CR was decreased to 40 daily dosing (pt with longstanding HTN baseline bp 140s-160s, often higher--may not tolerate bp 100-110) - tachy burden incr'd today--? sec to UTI. cont coreg Cr 40, observe tele - 11/01: TSH finally normalized!!!!!!!!!!!!!!!!!!!!!!!!!!!!!!!!!!!!!!!!!! - will consider ablation once renal fxn is stabilized, though doubt she is a candidate in current condition (tenuous HF status, uncontrolled hyperthyroidism) - given no fib present, and no definitive atr flutter thus far, will defer AC for now. LE swelling: - started at time of hyperthyroidism, and remains out of proportion to HF findings - responded well to wraps - diuresis, HD as above Elevated troponin - baseline trop 0.2-0.5 sec to chronic HF (+/- CKD) labile HTN: -mult med intolerances in past -bp stable currently CAD, prior NSTEMI/PCI: -holding DAPT (aspirin/effient) s/p perc nephrostomy tube placement 10/19, DAPT restarted 10/30 - DAPT held now for planned AV fistula placement, last dose 11/01 -cont home statin (max tolerated dose rosuva 20 with drug holidays), zetia -bb as bp tolerates
--- NOTE | 2018-11-05 09:15 | PN ---
Teaching Attending Note Name of Resident: Tom Dobbins ATTENDING PHYSICIAN STATEMENT I saw and evaluated the patient. I reviewed the resident's note and discussed the case with the resident. I agree with the resident's findings and plan as documented with exceptions below. SUBJECTIVE: Patient seen and examined. Feels better, urinary symptoms improved, left arm with some soreness but weakness/numbness resolved. Had chest pain above HD catheter site overnight, none since. OBJECTIVE: Vital Signs Period Temp Pulse Resp BP Sys/Shankar Pulse Ox Last 24 Hr 97 F-98.7 F 74-125 16-19 91-135/50-93 100 Intake & Output 11/02/18 11/03/18 11/04/18 11/05/18 23:59 23:59 23:59 23:59 Intake Total 570 470 640 Output Total 100 120 100 100 Balance 470 350 540 -100 Weight 222 lb 3 oz 212 lb General: ambulating in room in no acute distress Chest: decreased breath sounds at bases Abdomen:Soft, obese, NT, no CVA tenderness, no suprapubic tenderness, right nephrostomy drainage clearing Extremities: some improvement in pedal edema CVS:S1S2 irregular, tachycardic Active Medications Acetaminophen (Tylenol -) 500 mg PO Q6H PRN PRN Reason: PAIN 1-3 Last Admin: 11/05/18 00:22 Dose: 500 mg Aspirin (Asa -) 81 mg PO DAILY [facility] Last Admin: 11/03/18 09:41 Dose: 81 mg Carvedilol (Coreg Cr -) 40 mg PO DAILY [facility] Last Admin: 11/04/18 11:59 Dose: 40 mg Cholecalciferol (Vitamin D3 -) 5,000 unit PO DAILY [facility] Last Admin: 11/04/18 11:55 Dose: 5,000 unit Clonazepam (Klonopin -) 0.5 mg PO Q6HPO [facility] Last Admin: 11/05/18 06:52 Dose: 0.5 mg Docusate Sodium (Colace -) 100 mg PO DAILY [facility] Last Admin: 11/04/18 11:55 Dose: 100 mg Ezetimibe (Zetia -) 10 mg PO DAILY [facility] Last Admin: 11/04/18 12:01 Dose: 10 mg Glycerin (Glycerin Suppository Adult -) 1 each RC DAILY PRN PRN Reason: CONSTIPATION Heparin Sodium (Porcine) (Heparin -) 5,000 unit SQ TID [facility] Last Admin: 11/05/18 06:55 Dose: 5,000 unit Sodium Phosphate 25 mm/ Sodium (Chloride) 258.3333 mls @ 62.5 mls/hr IVPB ONCE ONE Stop: 11/05/18 13:15 Insulin Aspart (Novolog Vial Sliding Scale -) 1 vial SQ [facility]; Protocol Last Admin: 11/05/18 07:07 Dose: Not Given Insulin Detemir (Levemir Vial) 5 units SQ [facility] Last Admin: 11/04/18 22:08 Dose: Not Given Levofloxacin (Levaquin -) 250 mg PO 0600 [facility] Last Admin: 11/05/18 06:55 Dose: 250 mg Magnesium Sulfate (Magnesium Sulfate) 2 gm IVPB ONCE ONE Stop: 11/05/18 08:52 (Fluticasone/Vilanterol [Breo Ellipta 100-25 Mcg] Patient's Own Medication (Non - Formulary) 1 each IH DAILY [facility] Last Admin: 11/04/18 13:02 Dose: 1 each Ondansetron HCl (Zofran Injection) 4 mg IVPUSH Q6H PRN PRN Reason: NAUSEA AND/OR VOMITING Polyethylene Glycol (Miralax (For Daily Use) -) 17 gm PO DAILY [facility] Last Admin: 11/04/18 11:58 Dose: 17 gm Propylthiouracil (Ptu -) 50 mg PO BID [facility] Last Admin: 11/04/18 22:05 Dose: 50 mg Rosuvastatin Calcium (Crestor -) 10 mg PO HS [facility] Last Admin: 11/04/18 22:05 Dose: 10 mg Senna (Senna -) 2 tab PO HS PRN PRN Reason: CONSTIPATION Torsemide (Demadex -) 100 mg PO DAILY [facility] Last Admin: 11/04/18 11:59 Dose: 100 mg Laboratory Results - last 24 hr 11/04/18 11/04/18 11/04/18 07:30 07:30 12:08 WBC 6.0 RBC 3.63 Hgb 8.9 L Hct 27.6 L MCV 76.1 L MCH 24.6 L MCHC 32.3 RDW 16.5 H Plt Count 139 MPV 9.4 Sodium 136 Potassium 4.1 Chloride 100 Carbon Dioxide 26 Anion Gap 9 BUN 37 H Creatinine 3.1 H Creat Clearance w eGFR 15.18 POC Glucometer 174 Random Glucose 180 H Calcium 7.9 L Phosphorus 3.2 Magnesium 1.7 L Troponin I 11/04/18 11/04/18 11/05/18 16:27 22:02 02:30 WBC RBC Hgb Hct MCV MCH MCHC RDW Plt Count MPV Sodium Potassium Chloride Carbon Dioxide Anion Gap BUN Creatinine Creat Clearance w eGFR POC Glucometer 145 141 Random Glucose Calcium Phosphorus Magnesium Troponin I 0.23 H 11/05/18 11/05/18 11/05/18 06:30 06:30 06:47 WBC 4.9 RBC 3.63 Hgb 9.0 L Hct 27.8 L MCV 76.5 L MCH 24.9 L MCHC 32.5 RDW 16.0 H Plt Count 140 MPV 8.3 D Sodium 136 Potassium 4.2 Chloride 98 Carbon Dioxide 29 Anion Gap 8 BUN 27 H Creatinine 2.5 H Creat Clearance w eGFR 19.45 POC Glucometer 123 Random Glucose 123 H Calcium 7.9 L Phosphorus 2.2 L Magnesium 1.6 L Troponin I EKG Sinus tach, T inversions in lateral leads unchanged from prior ASSESSMENT AND PLAN: 63 yo F PMx DM, HTN, HLD, [place] in 2012 s/p stents, CABG, Afib, asthma, hyperthyroidism s/p I-131, CKD, anemia with multi med intolerances, with Chest Pain and palpitations -COmplicated UTI -Chest pain at HD catheter site overnight -New severe LV systolic dysfunction,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 -Atrial tachycardia with RVR -Hyperthyroidism s/p I-131 -Obstructive uropathy from urinary tract anomaly s/p Right nephrostomy tube placement 10/19 -Acute on CKD stage III, suspect suspect cardiorenal from poor perfusion, started on HD 10/27 via permacath -Elevated troponin, suspect demand induced from above -CAD s/p PCI 2012, s/p CABG -Asthma -Anemia Plan: NO further chest pain. EKG/trop noted. Nephrostomy tube drainage clearing. Follow up urine cultures. Levaquin day 2. CT A/P with no new concerns. Discussed with Dr. Espinosa, no additional recs. Continue ASA/Resume prasugrel and monitor. Urology input noted, outpatient follow up for anterograde stent. LUE symptoms likely from anesthesia block as discussed with vascular surgery and anesthesia, almost resolved. Dry weight 205. s/p HD started on 10/27. Volume status improving. Nephrology/Cardiology input noted. Torsemide 100 mg daily. s/p AV fistula placement 11/02. Will be assess for need for ongoing HD over next few months based on volume status and renal function. Intermittently tachycardic, patient reports less dizziness symptoms with coreg, declined metoprolol before. Repeat TSH in AM. Continue PTU BID, Endocrine input appreciated. Troponin flat, suspect demand mediated. had recent PCI and no repeat CP since then. Levemir 5 units hs for now, ISS, diabetic diet. Monitor insulin requirements while renal function improves. DVTPPX heparin Dispo d/c home with services in 24-48 hours pending urine cx and clinical improvement. Outpatient HD arrangements made. Plan discussed with patient in detail, all questions answered.
[2018-11-05] MEDS ORDERED: PT OWN MED DRAWER 7, Y5N ONE ×4 (09:32→21:25)
[2018-11-05] MEDS: DOCUSATE SODIUM 100 MG CAPSULE (FP) PO SCH (09:41)
[2018-11-05] MEDS: CHOLECALCIFEROL (VITAMIN D3) 1,000 UNIT TABLET (FP) PO SCH (09:41)
[2018-11-05] MEDS: POLYETHYLENE GLYCOL 3350 119 GM BTL PO SCH (09:43)
[2018-11-05] MEDS: TORSEMIDE 100 MG TABLET PO SCH (09:43)
[2018-11-05] MEDS: [UNRECOGNIZED DRUG - OTHER] IH SCH (09:43)
[2018-11-05] MEDS: EZETIMIBE 10 MG TABLET (FP) PO SCH (09:44)
[2018-11-05] MEDS: PROPYLTHIOURACIL 50 MG TABLET (UD) PO SCH ×2 (09:44→21:31)
[2018-11-05] MEDS ORDERED: MAGNESIUM SULF 50% (8.12 MEQ/2 ML-1 GM VIAL) IVPB ONE (09:45)
[2018-11-05] MEDS: CARVEDILOL PHOSPHATE CR 40 MG CAPSULE (FP) PO SCH (09:46)
[2018-11-05] MEDS: ASPIRIN 81 MG CHEWABLE TABLETS PO SCH (11:25)
--- NOTE | 2018-11-05 11:29 | PN ---
Progress Note, Physician Chief Complaint: The patient seen and examined in her room. Sitting by her bed. Denies any chest pain, Shortness of breath. But very weak. The urinary symptoms are better. Had uneventful HD yesterday. AVF placed on the left arm History of Present Illness: 63 yo F PMx DM, HTN, HLD, [place] in 2012 s/p stents, CABG, Afib, asthma, hyperthyroidism s/p STEINBERG, CKD, anemia with mult med intolerances, with CP and palpitations The patient has been started on HD using a Permacath. Also a fistula was placed yesterday on the left arm. - Current Medication List Current Medications: Active Medications Acetaminophen (Tylenol -) 500 mg PO Q6H PRN PRN Reason: PAIN 1-3 Last Admin: 11/05/18 00:22 Dose: 500 mg Aspirin (Asa -) 81 mg PO DAILY [facility] Last Admin: 11/03/18 09:41 Dose: 81 mg Carvedilol (Coreg Cr -) 40 mg PO DAILY [facility] Last Admin: 11/05/18 09:46 Dose: 40 mg Cholecalciferol (Vitamin D3 -) 5,000 unit PO DAILY [facility] Last Admin: 11/05/18 09:41 Dose: 5,000 unit Clonazepam (Klonopin -) 0.5 mg PO Q6HPO [facility] Last Admin: 11/05/18 06:52 Dose: 0.5 mg Docusate Sodium (Colace -) 100 mg PO DAILY [facility] Last Admin: 11/05/18 09:41 Dose: 100 mg Ezetimibe (Zetia -) 10 mg PO DAILY [facility] Last Admin: 11/05/18 09:44 Dose: 10 mg Glycerin (Glycerin Suppository Adult -) 1 each RC DAILY PRN PRN Reason: CONSTIPATION Heparin Sodium (Porcine) (Heparin -) 5,000 unit SQ TID [facility] Last Admin: 11/05/18 06:55 Dose: 5,000 unit Sodium Phosphate 25 mm/ Sodium (Chloride) 508.3333 mls @ 63.542 mls/hr IVPB ONCE ONE Stop: 11/05/18 17:07 Insulin Aspart (Novolog Vial Sliding Scale -) 1 vial SQ [facility]; Protocol Last Admin: 11/05/18 07:07 Dose: Not Given Insulin Detemir (Levemir Vial) 5 units SQ HS [facility] Last Admin: 11/04/18 22:08 Dose: Not Given Levofloxacin (Levaquin -) 250 mg PO 0600 [facility] Last Admin: 11/05/18 06:55 Dose: 250 mg (Fluticasone/Vilanterol [Breo Ellipta 100-25 Mcg] Patient's Own Medication (Non - Formulary) 1 each IH DAILY [facility] Last Admin: 11/05/18 09:43 Dose: 1 each Ondansetron HCl (Zofran Injection) 4 mg IVPUSH Q6H PRN PRN Reason: NAUSEA AND/OR VOMITING Polyethylene Glycol (Miralax (For Daily Use) -) 17 gm PO DAILY [facility] Last Admin: 11/05/18 09:43 Dose: Not Given Prasugrel (Effient -) 10 mg PO DAILY [facility] Propylthiouracil (Ptu -) 50 mg PO BID [facility] Last Admin: 11/05/18 09:44 Dose: 50 mg Rosuvastatin Calcium (Crestor -) 10 mg PO HS [facility] Last Admin: 11/04/18 22:05 Dose: 10 mg Senna (Senna -) 2 tab PO HS PRN PRN Reason: CONSTIPATION Torsemide (Demadex -) 100 mg PO DAILY [facility] Last Admin: 11/05/18 09:43 Dose: 100 mg - Objective Vital Signs: Vital Signs Temperature 98.7 F 11/05/18 06:00 Pulse Rate 121 H 11/05/18 06:00 Respiratory Rate 19 11/05/18 06:00 Blood Pressure 135/69 11/05/18 06:00 O2 Sat by Pulse Oximetry (%) 100 11/04/18 21:00 Constitutional: Yes: Well Nourished, Anxious, Mild Distress Eyes: Yes: Conjunctiva Clear Neck: Yes: Supple Cardiovascular: Yes: Tachycardia, S1, S2 Respiratory: Yes: CTA Bilaterally, Diminished Gastrointestinal: Yes: Normal Bowel Sounds, Abdomen, Obese Edema: Yes Edema: LLE: 3+, RLE: 3+ Neurological: Yes: Alert, Oriented Labs: CBC, BMP 11/05/18 06:30 11/05/18 06:30 INR, PTT INR 1.34 (0.83-1.09) H 10/16/18 16:54 Problem List - Problems (1) A-fib Code(s): I48.91 - UNSPECIFIED ATRIAL FIBRILLATION (2) Acute on chronic heart failure Code(s): I50.9 - HEART FAILURE, UNSPECIFIED Qualifiers: (3) Hyperthyroidism Code(s): E05.90 - THYROTOXICOSIS, UNSP WITHOUT THYROTOXIC CRISIS OR STORM (4) Acute CHF Code(s): I50.9 - HEART FAILURE, UNSPECIFIED Qualifiers: Heart failure type: systolic Qualified Code(s): I50.21 - Acute systolic ( congestive) heart failure (5) Acute on chronic kidney failure Code(s): N17.9 - ACUTE KIDNEY FAILURE, UNSPECIFIED; N18.9 - CHRONIC KIDNEY DISEASE, UNSPECIFIED Qualifiers: Chronic kidney disease stage: stage 5, not on chronic dialysis (6) CAD (coronary artery disease) Code(s): I25.10 - ATHSCL HEART DISEASE OF [place] CORONARY ARTERY W/O ANG PCTRS Qualifiers: Coronary Disease-Associated Artery/Lesion type: [place] artery [place] vs. transplanted heart: [place] heart Associated angina: without angina Qualified Code(s): I25.10 - Atherosclerotic heart disease of [place] coronary artery without angina pectoris (7) CHF exacerbation Code(s): I50.9 - HEART FAILURE, UNSPECIFIED Qualifiers: Heart failure type: unspecified Qualified Code(s): I50.9 - Heart failure, unspecified (8) CKD (chronic kidney disease) Code(s): N18.9 - CHRONIC KIDNEY DISEASE, UNSPECIFIED Qualifiers: Chronic kidney disease stage: stage 4 (severe) Qualified Code(s): N18.4 - Chronic kidney disease, stage 4 (severe) (9) Hydronephrosis Code(s): N13.30 - UNSPECIFIED HYDRONEPHROSIS (10) Thyrotoxicosis Code(s): E05.90 - THYROTOXICOSIS, UNSP WITHOUT THYROTOXIC CRISIS OR STORM Qualifiers: Thyrotoxicosis type: unspecified thyrotoxicosis type Thyrotoxic crisis or storm presence: with thyrotoxic crisis or storm Qualified Code(s): E05.91 - Thyrotoxicosis, unspecified with thyrotoxic crisis or storm (11) HTN (hypertension) Code(s): I10 - ESSENTIAL (PRIMARY) HYPERTENSION Qualifiers: (12) IDDM (insulin dependent diabetes mellitus) Code(s): E11.9 - TYPE 2 DIABETES MELLITUS WITHOUT COMPLICATIONS; Z79.4 - GROUP HOME (CURRENT) USE OF INSULIN Assessment/Plan 63 yo F PMx DM, HTN, HLD, [place] in 2013 s/p stents, CABG, Afib, asthma, hyperthyroidism s/p STEINBERG, CKD, anemia with mult med intolerances, with CP and palpitations 1. Acute on Chronic systolic CHF exacerbation 2. Afib with RVR- multiple intolerances to medications. 3. Thyrotoxicosis-s/p STEINBERG in the past. 4. Obstructive uropathy due to nephrolithasis-Had placement of R nephrostomy tube on 10/19. 5. OBI on CKD 4- The patient is dialysis dependent now. Urine out put not significantly better. PLAN: Will continue the dialysis as scheduled. Out patient HD scheduled at [facility] dialysis nada. Thank you. Tamara Garcia MD
[2018-11-05] MEDS: PRASUGREL HCL 10 MG TAB PO SCH (12:00)
--- NOTE | 2018-11-05 12:18 | PN ---
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 urinary symptoms are better , denies fever, chills, cp, sob , N/V/D/C. OBJECTIVE: Vital Signs Period Temp Pulse Resp BP Sys/Shankar Pulse Ox Last 24 Hr 97.1 F-98.7 F 77-125 16-19 104-135/55-75 100 GENERAL: AAOx3 in NAD , HEAD: NC/AT EYES: EOMI, Conjunctiva clear, sclera anicteric ENT: moist mucous membrane NECK: Supple, LUNGS:decrease breath sound at the bases,no accessory muscle use HEART: sinus tachy, normal s1, s2, no M/R/G ABDOMEN: Obese,Soft, NT, +BS 4 Q, no CVA Tenderness, right nephrostomy drainage clearing out LOWER EXTREMITIES: +2 edema, +2DP pulse, Upper ext: left Arm AV fistula with erythema , minimal tenderness and weakness post the procedure, positive thrill NEUROLOGICAL: No focal deficit. Normal speech. gait not observed. PSYCHIATRIC: Cooperative. Good eye contact. Appropriate mood and affect. SKIN: Warm, dry, Laboratory Results - last 24 hr 11/04/18 11/04/18 11/04/18 12:08 16:27 22:02 WBC RBC Hgb Hct MCV MCH MCHC RDW Plt Count MPV Sodium Potassium Chloride Carbon Dioxide Anion Gap BUN Creatinine Creat Clearance w eGFR POC Glucometer 174 145 141 Random Glucose Calcium Phosphorus Magnesium Troponin I 11/05/18 11/05/18 11/05/18 02:30 06:30 06:30 WBC 4.9 RBC 3.63 Hgb 9.0 L Hct 27.8 L MCV 76.5 L MCH 24.9 L MCHC 32.5 RDW 16.0 H Plt Count 140 MPV 8.3 D Sodium 136 Potassium 4.2 Chloride 98 Carbon Dioxide 29 Anion Gap 8 BUN 27 H Creatinine 2.5 H Creat Clearance w eGFR 19.45 POC Glucometer Random Glucose 123 H Calcium 7.9 L Phosphorus 2.2 L Magnesium 1.6 L Troponin I 0.23 H 11/05/18 06:47 WBC RBC Hgb Hct MCV MCH MCHC RDW Plt Count MPV Sodium Potassium Chloride Carbon Dioxide Anion Gap BUN Creatinine Creat Clearance w eGFR POC Glucometer 123 Random Glucose Calcium Phosphorus Magnesium Troponin I Active Medications Generic Name Dose Route Start Last Admin Trade Name Shan PRN Reason Stop Dose Admin Acetaminophen 500 mg 11/02/18 16:40 11/05/18 00:22 Tylenol - PO 500 mg Q6H PRN Administration PAIN 1-3 Aspirin 81 mg 11/03/18 10:00 11/05/18 11:25 Asa - PO 81 mg DAILY LALO Administration Carvedilol 40 mg 11/03/18 10:00 11/05/18 09:46 Coreg Cr - PO 40 mg DAILY LALO Administration Cholecalciferol 5,000 unit 11/03/18 10:00 11/05/18 09:41 Vitamin D3 - PO 5,000 unit DAILY LALO Administration Clonazepam 0.5 mg 11/03/18 05:30 11/05/18 06:52 Klonopin - PO 0.5 mg Q6HPO LALO Administration Docusate Sodium 100 mg 11/03/18 10:00 11/05/18 09:41 Colace - PO 100 mg DAILY LALO Administration Ezetimibe 10 mg 11/03/18 10:00 11/05/18 09:44 Zetia - PO 10 mg DAILY LALO Administration Glycerin 1 each 11/02/18 16:40 Glycerin Suppository Adult - RC DAILY PRN CONSTIPATION Heparin Sodium (Porcine) 5,000 unit 11/02/18 22:00 11/05/18 06:55 Heparin - SQ 5,000 unit TID LALO Administration Sodium Phosphate 25 mm/ Sodium 508.3333 mls @ 63.542 mls/hr 11/05/18 09:08 Chloride IVPB 11/05/18 17:07 ONCE ONE Insulin Aspart 1 vial 11/02/18 22:00 11/05/18 07:07 Novolog Vial Sliding Scale - SQ Not Given ACHS [facility] Protocol Insulin Detemir 5 units 11/02/18 22:00 11/04/18 22:08 Levemir Vial SQ Not Given HS LALO Levofloxacin 250 mg 11/05/18 06:00 11/05/18 06:55 Levaquin - PO 250 mg 0600 LALO Administration (Fluticasone/ 1 each 11/03/18 10:00 11/05/18 09:43 Vilanterol [Breo IH 1 each Ellipta 100-25 Mcg] DAILY LALO Administration Patient's Own Medication (Non- Formulary) Ondansetron HCl 4 mg 11/02/18 16:40 Zofran Injection IVPUSH Q6H PRN NAUSEA AND/OR VOMITING Polyethylene Glycol 17 gm 11/03/18 10:00 11/05/18 09:43 Miralax (For Daily Use) - PO Not Given DAILY LALO Prasugrel 10 mg 11/05/18 10:00 Effient - PO DAILY LALO Propylthiouracil 50 mg 11/02/18 22:00 11/05/18 09:44 Ptu - PO 50 mg BID LALO Administration Rosuvastatin Calcium 10 mg 11/02/18 22:00 11/04/18 22:05 Crestor - PO 10 mg HS LALO Administration Senna 2 tab 11/02/18 22:00 Senna - PO HS PRN CONSTIPATION Torsemide 100 mg 11/03/18 10:00 11/05/18 09:43 Demadex - PO 100 mg DAILY LALO Administration CBC, BMP 11/05/18 06:30 11/05/18 06:30 ASSESSMENT/PLAN: Patient is a 63 year old female with history of CHF, HI s/p stents, CAD, DMII, hyperthyroidism, CKD stage V, HTN, HLD, presents with complaint of chest tightness, palpitations. # chest pain , unlikley cardiac origin , in AV fistula sight * EKG with no St, T wave changes , Trop unchanged will trend * Cardiology recommendation appreciated * Cont current management * currently asymptomatic * repeat CXR * Ct with B/L pleural effusion , ascities , Anascra #Afib: * controlled in 120 last night she can feel it * cont heparin drip * cont Coreg 40 daily; * continue tele monitoring; patient still having episodes of tachycardia; but less frequent since the increase in PTU dose # Anemia * likely due to CKD * on HD * Epogen with HD * no active bleeding #Hyperthyroidism: * repeat TSH in AM * free t4 1.07 * cont PTU 50 BID; * c/w beta isrrael therapy #obstructive uropathy due to nephrolithisis * right nephrostomy tube placed 10/19 * monitor output * F/U with Dr. Menendez as out pt for anterograde stent #OBI on CKD stage 4: * Dialysis dependent with no improve in urine out put * baseline Cr 3.2; currently 2.5 this morning- * patient had dialysis and AV fisula placement in left Arm * HD yesterday with no complication * will cont HD as out pt at [facility] center #Acute on chronic systolic CHF exacerbation ; * new onset sever LV Systolic dysfunction EF 30 % in the setting of chronic hyperthyroidism * dry weight 205 * monitor daily weights * I's and O's * cont torsemide 100 daily * optomize volume status # LE swelling due to CKD vs anesthesia * cont HD, and diuretic * optimize volume status * #DM * levemir 5 units HS (monitor for hypoglycemia as CKD ) * ISS ACHS * BGMS ACHS #CAD * hold aspirin and prasugrel * BB as BP tolerated * Cont statin home dose 20 HS #HTN * c/w coreg 40 daily #Elevated trop * baseline trop 0.2-0.5 sec to chronic HF, stable #complicated UTI * cultures staph Coag negative * cont levaquin 500 daily #F/E/N * no fluids * hypophosphatemia hypomagnesia repleted * diabetic diet #PPX: heparin drip for Afib # Dispo * possible DC tomorrow Visit type - Emergency Visit Emergency Visit: Yes ED Registration Date: 10/16/18 Care time: The patient presented to the Emergency Department on the above date and was hospitalized for further evaluation of their emergent condition. - New Patient This patient is new to me today: No - Critical Care Critical Care patient: No - Discharge Referral Referred to [facility] No
[2018-11-05] MEDS: SODIUM PHOSPHATE - 25 MM in SODIUM CHLORIDE 500 ML IVPB ONE ×2 (13:07→18:13)
--- NOTE | 2018-11-05 21:19 | EKG ---
Test Reason : Blood Pressure : / mmHG Vent. Rate : 121 BPM Atrial Rate : 121 BPM P-R Int : 000 ms QRS Dur : 078 ms QT Int : 340 ms P-R-T Axes : 011 018 206 degrees QTc Int : 482 ms SINUS TACHYCARDIA CANNOT RULE OUT ANTERIOR INFARCT , AGE UNDETERMINED T WAVE ABNORMALITY, CONSIDER INFEROLATERAL ISCHEMIA ABNORMAL ECG WHEN COMPARED WITH ECG OF 04-NOV-2018 11:54, PREVIOUS ECG HAS UNDETERMINED RHYTHM, NEEDS REVIEW Confirmed by JULISSA GALVAN MD ([id number]) on 11/05/2018 9:19:21 PM Referred By: Confirmed By:JULISSA GALVAN MD
[2018-11-05] MEDS: ROSUVASTATIN CA 10 MG TABLET (FP) PO SCH (21:31)
[2018-11-05] MEDS: LATANOPROST 0.005% OPHTH SOLN 2.5ML BOTTLE OU SCH (21:31)
[2018-11-05] MEDS: INSULIN (LEVEMIR) 100 UNITS/ML UNITS SQ SCH (22:41)
[2018-11-06] MEDS: clonazePAM 0.5 MG TABLET PO SCH ×4 (00:37→17:41)
[2018-11-06] MEDS: HEPARIN NA (PORCINE) 5,000 UNITS/ML 1ML VIAL SQ SCH ×3 (06:12→21:14)
[2018-11-06] MEDS: INSULIN SLIDING SCALE (NOVOLOG) 1 VIAL SQ SCH ×4 (06:12→21:14)
[2018-11-06 06:48] LABS: BASO % 0.6 % (0-2.0); EOS % 1.1 % (0-4.5); HEMATOCRIT 29.2 % (32.4-45.2); LYMPH % 24.5 % (8-40); MCH 23.7 pg (25.7-33.7); MCHC 30.7 g/dl (32.0-36.0); MEAN CELL VOLUME 77.1 fl (80-96); MEAN PLT VOLUME 8.6 fl (7.5-11.1); NEUT % 60.8 % (42.8-82.8); PLATELET COUNT 124 K/MM3 (134-434); RBC 3.79 M/mm3 (3.60-5.2); RDW 16.1 % (11.6-15.6); WHITE BLOOD COUNT 4.6 K/mm3 (4.0-10.0)
[2018-11-06] MEDS ORDERED: PT OWN MED DRAWER 7, Y5N ONE ×2 (07:00→21:03)
[2018-11-06 08:31] LABS: ALBUMIN 2.8 g/dl (3.4-5.0); ALK PHOS 162 U/L (45-117); ANION GAP 10 MMOL/L (8-16); BILIRUBIN,TOTAL 0.6 mg/dL (0.2-1); BLOOD UREA NITROGEN 36 mg/dL (7-18); CALCIUM 8.1 mg/dL (8.5-10.1); CHLORIDE 96 mmol/L (98-107); CO2 27 mmol/L (21-32); CREATININE 3.2 mg/dL (0.55-1.3); GLUCOSE,RANDOM 158 mg/dL (74-106); PHOSPHOROUS 2.4 mg/dL (2.5-4.9); POTASSIUM 4.4 mmol/L (3.5-5.1); SGOT/AST 46 U/L (15-37); SGPT/ALT 26 U/L (13-61); SODIUM 134 mmol/L (136-145); TOT PROT 6.2 g/dl (6.4-8.2)
--- NOTE | 2018-11-06 08:59 | PN ---
Progress Note, Physician Chief Complaint: sob History of Present Illness: began feeling sob overnight with severe abd bloating sensation. not orthopnea (no better when stands up). worse when tries to walk around. no chest pain. not constipated, last BM this am. not passing gas. leg swelling stable no palpit, syncope no cigs - Current Medication List Current Medications: Active Medications Acetaminophen (Tylenol -) 500 mg PO Q6H PRN PRN Reason: PAIN 1-3 Last Admin: 11/05/18 00:22 Dose: 500 mg Aspirin (Asa -) 81 mg PO DAILY [facility] Last Admin: 11/05/18 11:25 Dose: 81 mg Carvedilol (Coreg Cr -) 40 mg PO DAILY [facility] Last Admin: 11/05/18 09:46 Dose: 40 mg Cholecalciferol (Vitamin D3 -) 5,000 unit PO DAILY [facility] Last Admin: 11/05/18 09:41 Dose: 5,000 unit Clonazepam (Klonopin -) 0.5 mg PO Q6HPO [facility] Last Admin: 11/06/18 06:12 Dose: 0.5 mg Docusate Sodium (Colace -) 100 mg PO DAILY [facility] Last Admin: 11/05/18 09:41 Dose: 100 mg Ezetimibe (Zetia -) 10 mg PO DAILY [facility] Last Admin: 11/05/18 09:44 Dose: 10 mg Glycerin (Glycerin Suppository Adult -) 1 each RC DAILY PRN PRN Reason: CONSTIPATION Heparin Sodium (Porcine) (Heparin -) 5,000 unit SQ TID [facility] Last Admin: 11/06/18 06:12 Dose: 5,000 unit Insulin Aspart (Novolog Vial Sliding Scale -) 1 vial SQ [facility]; Protocol Last Admin: 11/06/18 06:12 Dose: 2 units Insulin Detemir (Levemir Vial) 5 units SQ [facility] Last Admin: 11/05/18 22:41 Dose: 5 units Latanoprost (Xalatan 0.005% Eye Drops -) 1 drop OU HS [facility] Last Admin: 11/05/18 21:31 Dose: 1 drop Levofloxacin (Levaquin -) 250 mg PO 0600 [facility] Last Admin: 11/06/18 06:12 Dose: 250 mg (Fluticasone/Vilanterol [Breo Ellipta 100-25 Mcg] Patient's Own Medication (Non - Formulary) 1 each IH DAILY [facility] Last Admin: 11/05/18 09:43 Dose: 1 each Ondansetron HCl (Zofran Injection) 4 mg IVPUSH Q6H PRN PRN Reason: NAUSEA AND/OR VOMITING Polyethylene Glycol (Miralax (For Daily Use) -) 17 gm PO DAILY [facility] Last Admin: 11/05/18 09:43 Dose: Not Given Prasugrel (Effient -) 10 mg PO DAILY [facility] Last Admin: 11/05/18 12:00 Dose: 10 mg Propylthiouracil (Ptu -) 50 mg PO BID [facility] Last Admin: 11/05/18 21:31 Dose: 50 mg Rosuvastatin Calcium (Crestor -) 10 mg PO HS [facility] Last Admin: 11/05/18 21:31 Dose: 10 mg Senna (Senna -) 2 tab PO HS PRN PRN Reason: CONSTIPATION Torsemide (Demadex -) 100 mg PO DAILY [facility] Last Admin: 11/05/18 09:43 Dose: 100 mg - Objective Vital Signs: Vital Signs Temperature 97.9 F 11/06/18 06:00 Pulse Rate 80 11/06/18 06:00 Respiratory Rate 18 11/06/18 06:00 Blood Pressure 124/63 11/06/18 06:00 O2 Sat by Pulse Oximetry (%) 95 11/05/18 20:16 Constitutional: Yes: No Distress, Calm Eyes: No: Sclera Icterus HENT: No: Nasal Congestion Cardiovascular: Yes: Regular Rate and Rhythm, JVD, S1, S2, Other (PMI non diplaced). No: Gallop, Murmur Respiratory: Yes: CTA Bilaterally. No: Accessory Muscle Use, Rales, Wheezes Gastrointestinal: Yes: Normal Bowel Sounds, Soft. No: Tenderness Musculoskeletal: Yes: Other (No kyphosis) Extremities: No: Cyanosis Edema: Yes (2-3+ pretib) Integumentary: No: Jaundice Neurological: Yes: Alert, Oriented (x3) Psychiatric: No: Agitated Labs: CBC, BMP 11/06/18 06:30 11/06/18 06:30 INR, PTT INR 1.34 (0.83-1.09) H 10/16/18 16:54 Assessment/Plan ECG's 11/04, 11/05: tachy (AT), nonsp ST-Ts lateral and inferior--no change vs prior CXR: clear lungs Echo 07/2018 inf wall akinetic, other phillip severely hypokinetic, LV mildly dilated, RV function moderately reduced, LV function severely reduced, moderate MR, EF 30% Echo 12/2016: TDS. nl LV size/EF. mild LVH. grade 2 d.d., hi E/e' = high LAP. nl RV. mild LAE. mild-mod MR, mod TR. mild pHTN (46 mmHg) [facility] 2014: unchanged 70-80% distal RCA lesion. patent mLAD stent. 80-90% pLCX-- [facility] KAREN Tele: NSR alt with AT (approx 50-50) a/p: 63 yo female hx cad/pci, hyperthyroidism with associated tachycardia, palpitations, unintentional wt loss, acute on chronic labile HTN with mult med intolerances, mildly decompensated diast chf, and new LE edema (out of proportion to the degree of CHF), p/w le edema,sob. abd bloating/sob: -doubt chf, given wt progressively decreasing with HD, down > 20 lbs vs admit -her prior orthopnea resolved since HD started. -suspect gas/bloating more likely. -check cxr to confirm no incr pulm edema -bowel regimen, ? 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 Chen d/w'd dr olsen. pt diureses briskly to iv lasix (100mg) here. ? will be able to maintain volume status with po torsemide +/- metolazone, and will not need maintenance HD. plan is to optimize her volume status as much as possible in next couple weeks (which will also help cardiac output and minimize gut edema/enhance bioavailability of po diuretics), then see if she can maintain without continued HD/UF (hi risk of permacath infection given chronic uncontrolled DM). - 11/01-present: tolerating HD/UF well, effective volume removal, wt down. cont torsemide 100 po daily. - bb dose limited by new hypotension/dizziness--has changed metoprolol succ to coreg CR and insists this causes her less dizziness. cont same coreg - holding hydral, NTG patch (hypotension) - not on SHAN/ARB in setting of ckd obstructive uropathy, OBI on CKD: -probably new baseline creatinine in 3-3.3 range based on recent labs trends -recently bumped to 3.5 as outpt--? sec to obstruction -s/p nephrostomy tubes 10/19, creat rising sec to cardiorenal syndrome -now on HD, s/p avf -hematuria/dysuria, plan for outpt stent per hyperthyroidism, sinus tach, PAT (note: no afib/flutter present thus far): - intolerant of methimazole (elevated LFTs) - s/p radio-I ablation - high burden of ATach with LV systolic dysfunction, now with new afib - low dose PTU resumed, patient tolerating (pt self-discontinued it at home for nausea) with improvement in heart rate - metopr high dose appeared to control PAT burden better than carvedilol, however caused hypotension/dizzy and pt changed back. she declines changing back to metoprolol. (previously intolerant of atenolol, propranolol). - no amiodarone in light of uncontrolled hyperthyroidism. no digoxin in light of very low GFR. no CCB in light of systolic dysfxn and previous intolerance ( edema) - given low bp trend and weakness/dizziness, coreg CR was decreased to 40 daily dosing (pt with longstanding HTN baseline bp 140s-160s, often higher--may not tolerate bp 100-110) - tachy burden incr'd today--? sec to UTI. cont coreg Cr 40, observe tele - 11/01: TSH finally normalized!!!!!!!!!!!!!!!!!!!!!!!!!!!!!!!!!!!!!!!!!! - will consider ablation once renal fxn is stabilized, though doubt she is a candidate in current condition (tenuous HF status, uncontrolled hyperthyroidism) - given no fib present, and no definitive atr flutter thus far, will defer AC for now. LE swelling: - started at time of hyperthyroidism, and remains out of proportion to HF findings - responded well to wraps - diuresis, HD as above Elevated troponin - baseline trop 0.2-0.5 sec to chronic HF (+/- CKD) labile HTN: -mult med intolerances in past -bp stable currently CAD, prior NSTEMI/PCI: -holding DAPT (aspirin/effient) s/p perc nephrostomy tube placement 10/19, DAPT restarted 10/30 - DAPT held now for planned AV fistula placement, last dose 11/01 -cont home statin (max tolerated dose rosuva 20 with drug holidays), zetia -bb as bp tolerates
[2018-11-06] MEDS: PROPYLTHIOURACIL 50 MG TABLET (UD) PO SCH (09:40)
[2018-11-06] MEDS: [UNRECOGNIZED DRUG - OTHER] IH SCH (09:40)
[2018-11-06] MEDS: PRASUGREL HCL 10 MG TAB PO SCH (09:40)
[2018-11-06] MEDS: POLYETHYLENE GLYCOL 3350 119 GM BTL PO SCH (09:40)
[2018-11-06] MEDS: ASPIRIN 81 MG CHEWABLE TABLETS PO SCH (09:41)
[2018-11-06] MEDS: DOCUSATE SODIUM 100 MG CAPSULE (FP) PO SCH (09:41)
[2018-11-06] MEDS: CHOLECALCIFEROL (VITAMIN D3) 1,000 UNIT TABLET (FP) PO SCH (09:41)
[2018-11-06] MEDS: TORSEMIDE 100 MG TABLET PO SCH (09:41)
[2018-11-06] MEDS: CARVEDILOL PHOSPHATE CR 40 MG CAPSULE (FP) PO SCH (09:41)
[2018-11-06] MEDS: EZETIMIBE 10 MG TABLET (FP) PO SCH (09:42)
--- NOTE | 2018-11-06 10:43 | PN ---
Progress Note, Physician Chief Complaint: The patient seen and examined in her room. In bed. C/o severe bloating. Denies any chest pain. But very weak. The urinary symptoms are better. Left arm AVF with bruit. History of Present Illness: 63 yo F PMx DM, HTN, HLD, MD in 2013 s/p stents, CABG, Afib, asthma, hyperthyroidism s/p STEINBERG, CKD, anemia with mult med intolerances, with CP and palpitations The patient has been started on HD using a Permacath. AVF placed on the left arm. - Current Medication List Current Medications: Active Medications Acetaminophen (Tylenol -) 500 mg PO Q6H PRN PRN Reason: PAIN 1-3 Last Admin: 11/05/18 00:22 Dose: 500 mg Aspirin (Asa -) 81 mg PO DAILY [facility] Last Admin: 11/06/18 09:41 Dose: 81 mg Carvedilol (Coreg Cr -) 40 mg PO DAILY [facility] Last Admin: 11/06/18 09:41 Dose: Not Given Cholecalciferol (Vitamin D3 -) 5,000 unit PO DAILY [facility] Last Admin: 11/06/18 09:41 Dose: 5,000 unit Clonazepam (Klonopin -) 0.5 mg PO Q6HPO [facility] Last Admin: 11/06/18 06:12 Dose: 0.5 mg Docusate Sodium (Colace -) 100 mg PO DAILY [facility] Last Admin: 11/06/18 09:41 Dose: 100 mg Ezetimibe (Zetia -) 10 mg PO DAILY [facility] Last Admin: 11/06/18 09:42 Dose: 10 mg Glycerin (Glycerin Suppository Adult -) 1 each RC DAILY PRN PRN Reason: CONSTIPATION Heparin Sodium (Porcine) (Heparin -) 5,000 unit SQ TID [facility] Last Admin: 11/06/18 06:12 Dose: 5,000 unit Insulin Aspart (Novolog Vial Sliding Scale -) 1 vial SQ [facility]; Protocol Last Admin: 11/06/18 06:12 Dose: 2 units Insulin Detemir (Levemir Vial) 5 units SQ HS [facility] Last Admin: 11/05/18 22:41 Dose: 5 units Latanoprost (Xalatan 0.005% Eye Drops -) 1 drop OU HS [facility] Last Admin: 11/05/18 21:31 Dose: 1 drop (Fluticasone/Vilanterol [Breo Ellipta 100-25 Mcg] Patient's Own Medication (Non - Formulary) 1 each IH DAILY [facility] Last Admin: 11/06/18 09:40 Dose: 1 each Ondansetron HCl (Zofran Injection) 4 mg IVPUSH Q6H PRN PRN Reason: NAUSEA AND/OR VOMITING Polyethylene Glycol (Miralax (For Daily Use) -) 17 gm PO DAILY [facility] Last Admin: 11/06/18 09:40 Dose: Not Given Prasugrel (Effient -) 10 mg PO DAILY [facility] Last Admin: 11/06/18 09:40 Dose: 10 mg Propylthiouracil (Ptu -) 50 mg PO BID [facility] Last Admin: 11/06/18 09:40 Dose: 50 mg Rosuvastatin Calcium (Crestor -) 10 mg PO HS [facility] Last Admin: 11/05/18 21:31 Dose: 10 mg Senna (Senna -) 2 tab PO HS PRN PRN Reason: CONSTIPATION Torsemide (Demadex -) 100 mg PO DAILY [facility] Last Admin: 11/06/18 09:41 Dose: 100 mg - Objective Vital Signs: Vital Signs Temperature 98.4 F 11/06/18 10:00 Pulse Rate 78 11/06/18 10:00 Respiratory Rate 18 11/06/18 10:00 Blood Pressure 101/57 L 11/06/18 10:00 O2 Sat by Pulse Oximetry (%) 95 11/05/18 20:16 Constitutional: Yes: Well Nourished, Moderate Distress Eyes: Yes: Conjunctiva Clear HENT: Yes: Normocephalic Neck: Yes: Trachea Midline Cardiovascular: Yes: Tachycardia, Pulse Irregular, S1, S2 Respiratory: Yes: CTA Bilaterally, Diminished Gastrointestinal: Yes: Normal Bowel Sounds, Soft Genitourinary: No: Bladder Distention, CVA Tenderness - Left, CVA Tenderness - Right Neurological: Yes: Alert, Oriented Labs: CBC, BMP 11/06/18 06:30 11/06/18 06:30 INR, PTT INR 1.34 (0.83-1.09) H 10/16/18 16:54 Problem List - Problems (1) A-fib Code(s): I48.91 - UNSPECIFIED ATRIAL FIBRILLATION (2) Acute on chronic heart failure Code(s): I50.9 - HEART FAILURE, UNSPECIFIED Qualifiers: (3) Hyperthyroidism Code(s): E05.90 - THYROTOXICOSIS, UNSP WITHOUT THYROTOXIC CRISIS OR STORM (4) Acute CHF Code(s): I50.9 - HEART FAILURE, UNSPECIFIED Qualifiers: Heart failure type: systolic Qualified Code(s): I50.21 - Acute systolic ( congestive) heart failure (5) Acute on chronic kidney failure Code(s): N17.9 - ACUTE KIDNEY FAILURE, UNSPECIFIED; N18.9 - CHRONIC KIDNEY DISEASE, UNSPECIFIED Qualifiers: Chronic kidney disease stage: stage 5, not on chronic dialysis (6) CAD (coronary artery disease) Code(s): I25.10 - ATHSCL HEART DISEASE OF [place] CORONARY ARTERY W/O ANG PCTRS Qualifiers: Coronary Disease-Associated Artery/Lesion type: [place] artery [place] vs. transplanted heart: [place] heart Associated angina: without angina Qualified Code(s): I25.10 - Atherosclerotic heart disease of [place] coronary artery without angina pectoris (7) CHF exacerbation Code(s): I50.9 - HEART FAILURE, UNSPECIFIED Qualifiers: Heart failure type: unspecified Qualified Code(s): I50.9 - Heart failure, unspecified (8) CKD (chronic kidney disease) Code(s): N18.9 - CHRONIC KIDNEY DISEASE, UNSPECIFIED Qualifiers: Chronic kidney disease stage: stage 4 (severe) Qualified Code(s): N18.4 - Chronic kidney disease, stage 4 (severe) (9) Hydronephrosis Code(s): N13.30 - UNSPECIFIED HYDRONEPHROSIS (10) Thyrotoxicosis Code(s): E05.90 - THYROTOXICOSIS, UNSP WITHOUT THYROTOXIC CRISIS OR STORM Qualifiers: Thyrotoxicosis type: unspecified thyrotoxicosis type Thyrotoxic crisis or storm presence: with thyrotoxic crisis or storm Qualified Code(s): E05.91 - Thyrotoxicosis, unspecified with thyrotoxic crisis or storm (11) HTN (hypertension) Code(s): I10 - ESSENTIAL (PRIMARY) HYPERTENSION Qualifiers: (12) IDDM (insulin dependent diabetes mellitus) Code(s): E11.9 - TYPE 2 DIABETES MELLITUS WITHOUT COMPLICATIONS; Z79.4 - USP (CURRENT) USE OF INSULIN Assessment/Plan 63 yo F PMx DM, HTN, HLD, MD in 2013 s/p stents, CABG, Afib, asthma, hyperthyroidism s/p STEINBERG, CKD, anemia with mult med intolerances, with CP and palpitations 1. Acute on Chronic systolic CHF exacerbation 2. Afib with RVR- multiple intolerances to medications. 3. Thyrotoxicosis-s/p STEINBERG in the past. 4. Obstructive uropathy due to nephrolithasis-Had placement of R nephrostomy tube on 10/19. 5. OBI on CKD 4- The patient is dialysis dependent now. Urine out put not significantly better. 6. The abdominal bloating. ? Ileus. PLAN: For HD in AM. For CXR Out patient HD scheduled at [facility]. Thank you. Tamara Garcia MD
--- NOTE | 2018-11-06 10:47 | PN ---
Physical Exam: SUBJECTIVE: Patient seen and examined, reports abdominal discomfort from bloating. Had good BM today with no concerns. No nausea, vomiting. resolved urinary symptoms, no back pain. No chest pain, palpitations, dyspnea or dizziness. OBJECTIVE: Vital Signs Period Temp Pulse Resp BP Sys/Shankar Pulse Ox Last 24 Hr 97.6 F-98.4 F 78-120 16-20 98-124/49-63 95 GENERAL: lying in bed in mild distress from abdominal bloating CVS;S1S2 irregular Chest: decreased breath sounds at bases, improved air entry Abdomen:Soft, some distension, tympanic, positive good bowel sounds, NT, no suprapubic tenderness, no voluntary or involuntary guarding or rigidity Extremities; some improvement in pedal edema Back: Right nephrostomy tube with minimal clearing sanguinous drainage Laboratory Results - last 24 hr 11/05/18 11/05/18 11/05/18 11:40 11:45 16:20 WBC RBC Hgb Hct MCV MCH MCHC RDW Plt Count MPV Absolute Neuts (auto) Neutrophils % Lymphocytes % Monocytes % Eosinophils % Basophils % Nucleated RBC % Sodium Potassium Chloride Carbon Dioxide Anion Gap BUN Creatinine Creat Clearance w eGFR POC Glucometer 159 137 Random Glucose Calcium Phosphorus Magnesium Total Bilirubin AST ALT Alkaline Phosphatase Troponin I 0.23 H Total Protein Albumin TSH 11/05/18 11/06/18 11/06/18 21:30 06:01 06:30 WBC RBC Hgb Hct MCV MCH MCHC RDW Plt Count MPV Absolute Neuts (auto) Neutrophils % Lymphocytes % Monocytes % Eosinophils % Basophils % Nucleated RBC % Sodium 134 L Potassium 4.4 Chloride 96 L Carbon Dioxide 27 Anion Gap 10 BUN 36 H Creatinine 3.2 H Creat Clearance w eGFR 14.63 POC Glucometer 181 161 Random Glucose 158 H Calcium 8.1 L Phosphorus 2.4 L Magnesium 2.0 Total Bilirubin 0.6 AST 46 H ALT 26 Alkaline Phosphatase 162 H Troponin I Total Protein 6.2 L Albumin 2.8 L TSH 1.97 11/06/18 06:30 WBC 4.6 RBC 3.79 Hgb 9.0 L Hct 29.2 L MCV 77.1 L MCH 23.7 L MCHC 30.7 L RDW 16.1 H Plt Count 124 L MPV 8.6 Absolute Neuts (auto) 2.8 Neutrophils % 60.8 Lymphocytes % 24.5 Monocytes % 13.0 H Eosinophils % 1.1 Basophils % 0.6 Nucleated RBC % 0 Sodium Potassium Chloride Carbon Dioxide Anion Gap BUN Creatinine Creat Clearance w eGFR POC Glucometer Random Glucose Calcium Phosphorus Magnesium Total Bilirubin AST ALT Alkaline Phosphatase Troponin I Total Protein Albumin TSH Active Medications Generic Name Dose Route Start Last Admin Trade Name Freq PRN Reason Stop Dose Admin Acetaminophen 500 mg 11/02/18 16:40 11/05/18 00:22 Tylenol - PO 500 mg Q6H PRN Administration PAIN 1-3 Aspirin 81 mg 11/03/18 10:00 11/06/18 09:41 Asa - PO 81 mg DAILY LALO Administration Carvedilol 40 mg 11/03/18 10:00 11/06/18 09:41 Coreg Cr - PO Not Given DAILY LALO Cholecalciferol 5,000 unit 11/03/18 10:00 11/06/18 09:41 Vitamin D3 - PO 5,000 unit DAILY LALO Administration Clonazepam 0.5 mg 11/03/18 05:30 11/06/18 06:12 Klonopin - PO 0.5 mg Q6HPO LALO Administration Docusate Sodium 100 mg 11/03/18 10:00 11/06/18 09:41 Colace - PO 100 mg DAILY LALO Administration Ezetimibe 10 mg 11/03/18 10:00 11/06/18 09:42 Zetia - PO 10 mg DAILY LALO Administration Glycerin 1 each 11/02/18 16:40 Glycerin Suppository Adult - RC DAILY PRN CONSTIPATION Heparin Sodium (Porcine) 5,000 unit 11/02/18 22:00 11/06/18 06:12 Heparin - SQ 5,000 unit TID LALO Administration Insulin Aspart 1 vial 11/02/18 22:00 11/06/18 06:12 Novolog Vial Sliding Scale - SQ 2 units ACHS LALO Administration Protocol Insulin Detemir 5 units 11/02/18 22:00 11/05/18 22:41 Levemir Vial SQ 5 units HS LALO Administration Latanoprost 1 drop 11/05/18 22:00 11/05/18 21:31 Xalatan 0.005% Eye Drops - OU 1 drop HS LALO Administration (Fluticasone/ 1 each 11/03/18 10:00 11/06/18 09:40 Vilanterol [Breo IH 1 each Ellipta 100-25 Mcg] DAILY LALO Administration Patient's Own Medication (Non- Formulary) Ondansetron HCl 4 mg 11/02/18 16:40 Zofran Injection IVPUSH Q6H PRN NAUSEA AND/OR VOMITING Polyethylene Glycol 17 gm 11/03/18 10:00 11/06/18 09:40 Miralax (For Daily Use) - PO Not Given DAILY LALO Prasugrel 10 mg 11/05/18 10:00 11/06/18 09:40 Effient - PO 10 mg DAILY LALO Administration Propylthiouracil 50 mg 11/02/18 22:00 11/06/18 09:40 Ptu - PO 50 mg BID LALO Administration Rosuvastatin Calcium 10 mg 11/02/18 22:00 11/05/18 21:31 Crestor - PO 10 mg HS LALO Administration Senna 2 tab 11/02/18 22:00 Senna - PO HS PRN CONSTIPATION Simethicone 80 mg 11/06/18 10:44 Mylicon - PO Q4H PRN GAS Torsemide 100 mg 11/03/18 10:00 11/06/18 09:41 Demadex - PO 100 mg DAILY LALO Administration Microbiology 11/04/18 11:30 Urine - Urostomy Bag Urine Culture - Final Staphylococcus Simulans 10/19/18 11:24 Urine - Urine Nephrostomy Tube Right Urine Culture - Final NO GROWTH OBTAINED 10/16/18 16:57 Urine - Urine Clean Catch Urine Culture - Final NO GROWTH OBTAINED ASSESSMENT/PLAN: 63 yo F PMx DM, HTN, HLD, [place] in 2012 s/p stents, CABG, Afib, asthma, hyperthyroidism s/p I-131, CKD, anemia with multi med intolerances, with Chest Pain and palpitations -COmplicated UTI vs contamination -Abdominal bloating, suspect ga +/- fluid overload. -Chest pain at HD catheter site overnight -New severe LV systolic dysfunction,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 -Atrial tachycardia with RVR -Hyperthyroidism s/p I-131 -Obstructive uropathy from urinary tract anomaly s/p Right nephrostomy tube placement 10/19 -Acute on CKD stage III, suspect suspect cardiorenal from poor perfusion, started on HD 10/27 via permacath -Elevated troponin, suspect demand induced from above -CAD s/p PCI 2012, s/p CABG -Asthma -Anemia Plan: Urine cultures noted. d/c levaquin. Repeat ua from nephrostomy bag and voided sample (discussed with nursing), hold off on abx Simethicone, patient encouraged to ambulate, having regular BM. Current exam and good bowel sounds make ileus unlikely. NO further chest pain. EKG/trop noted. Nephrostomy tube drainage clearing. CT A/P with no new concerns. Discussed with Dr. Espinosa, no additional recs. Continue ASA/prasugrel and monitor. Urology input noted, outpatient follow up for anterograde stent. LUE symptoms likely from anesthesia block as discussed with vascular surgery and anesthesia, almost resolved. Dry weight 205. s/p HD started on 10/27. Volume status improving. Nephrology/Cardiology input noted. Torsemide 100 mg daily. s/p AV fistula placement 11/02. Will be assess for need for ongoing HD over next few months based on volume status and renal function. HR improved. Coreg. TSH normalized. Continue PTU BID till TSH > 5, Endocrine input appreciated. Troponin flat, suspect demand mediated. had recent PCI and no repeat CP since then. Levemir 5 units hs for now, ISS, diabetic diet. Monitor insulin requirements while renal function improves. DVTPPX heparin Dispo d/c home with services today or tomorrow if repeat urine studies non concerning and no new events off antibiotics. Outpatient HD arrangements made. Plan discussed with patient and nursing in detail, all questions answered. Visit type - Emergency Visit Emergency Visit: Yes ED Registration Date: 10/16/18 Care time: The patient presented to the Emergency Department on the above date and was hospitalized for further evaluation of their emergent condition. - New Patient This patient is new to me today: No - Critical Care Critical Care patient: No - Discharge Referral Referred to [facility] Med P.C.: No
[2018-11-06] MEDS: SIMETHICONE 80 MG TAB.CHEW (FP) PO PRN ×2 (11:42→16:56)
[2018-11-06 12:08] LABS: URINE APPEARANCE CLOUDY; URINE BILIRUBIN NEGATIVE (<2.0 mg/dL); URINE COLOR AMBER; URINE GLUCOSE (UA) 1+ (NEGATIVE); URINE KETONE TRACE (NEGATIVE); URINE LEUK ESTERASE TRACE (NEGATIVE); URINE NITRITE NEGATIVE (NEGATIVE); URINE PROTEIN 2+ (NEGATIVE)
[2018-11-06 13:11] LABS: EPI CELLS MANY /HPF (FEW); URINE HYALINE CAST 4 /lpf; URINE MUCUS RARE; YEAST FEW
[2018-11-06 14:36] LABS: URINE APPEARANCE CLOUDY; URINE BILIRUBIN NEGATIVE (<2.0 mg/dL); URINE COLOR AMBER; URINE GLUCOSE (UA) 1+ (NEGATIVE); URINE KETONE NEGATIVE (NEGATIVE); URINE LEUK ESTERASE 2+ (NEGATIVE); URINE NITRITE NEGATIVE (NEGATIVE); URINE PROTEIN 2+ (NEGATIVE); URINE UROBILINOGEN NEGATIVE mg/dL (0.2-1.0)
[2018-11-06 14:56] LABS: URINE BACTERIA MANY /hpf (NONE SEEN)
--- NOTE | 2018-11-06 17:09 | PN ---
Progress Note (short form) - Note Progress Note: improving clinically less anxious and tolerating thyroid medication Current Active Problems A-fib (Acute) Acute on chronic heart failure (Acute) Hyperthyroidism (Acute) Ureteropelvic junction (UPJ) obstruction (Acute) Abnormal Lab Results 11/06/18 11/06/18 11/06/18 06:30 06:30 10:30 Hgb 9.0 L Hct 29.2 L MCV 77.1 L MCH 23.7 L MCHC 30.7 L RDW 16.1 H Plt Count 124 L Monocytes % 13.0 H Sodium 134 L Chloride 96 L BUN 36 H Creatinine 3.2 H Random Glucose 158 H Calcium 8.1 L Phosphorus 2.4 L AST 46 H Alkaline Phosphatase 162 H Total Protein 6.2 L Albumin 2.8 L Urine Protein 2+ H Urine Glucose (UA) 1+ H Urine Ketones Trace H Urine Blood 3+ H Urine Urobilinogen 2.0 H Ur Leukocyte Esterase 11/06/18 10:30 Hgb Hct MCV MCH MCHC RDW Plt Count Monocytes % Sodium Chloride BUN Creatinine Random Glucose Calcium Phosphorus AST Alkaline Phosphatase Total Protein Albumin Urine Protein 2+ H Urine Glucose (UA) 1+ H Urine Ketones Urine Blood 3+ H Urine Urobilinogen Ur Leukocyte Esterase 2+ H Laboratory Tests 10/29/18 11/06/18 06:05 06:30 TSH 1.97 Free T4 0.92 plan: improved biochemically and clinically thyroid levels decrease dose of ptu 50mg daily as tsh improved when tsh above 5 will dc ptu and repeat tfts 3 weeks later Problem List - Problems (1) A-fib Code(s): I48.91 - UNSPECIFIED ATRIAL FIBRILLATION (2) Acute on chronic heart failure Code(s): I50.9 - HEART FAILURE, UNSPECIFIED Qualifiers: (3) Hyperthyroidism Code(s): E05.90 - THYROTOXICOSIS, UNSP WITHOUT THYROTOXIC CRISIS OR STORM (4) Acute CHF Code(s): I50.9 - HEART FAILURE, UNSPECIFIED Qualifiers: Heart failure type: systolic Qualified Code(s): I50.21 - Acute systolic ( congestive) heart failure (5) Acute exacerbation of asthma with allergic rhinitis Code(s): J45.901 - UNSPECIFIED ASTHMA WITH (ACUTE) EXACERBATION (6) Acute on chronic kidney failure Code(s): N17.9 - ACUTE KIDNEY FAILURE, UNSPECIFIED; N18.9 - CHRONIC KIDNEY DISEASE, UNSPECIFIED Qualifiers: Chronic kidney disease stage: stage 5, not on chronic dialysis (7) Acute pulmonary edema with congestive heart failure Code(s): I50.1 - LEFT VENTRICULAR FAILURE, UNSPECIFIED
[2018-11-06] MEDS: INSULIN (LEVEMIR) 100 UNITS/ML UNITS SQ SCH (21:14)
[2018-11-06] MEDS: ROSUVASTATIN CA 10 MG TABLET (FP) PO SCH (21:14)
[2018-11-06] MEDS: LATANOPROST 0.005% OPHTH SOLN 2.5ML BOTTLE OU SCH (21:15)
[2018-11-07] MEDS: clonazePAM 0.5 MG TABLET PO SCH ×5 (00:01→23:31)
[2018-11-07] MEDS: INSULIN SLIDING SCALE (NOVOLOG) 1 VIAL SQ SCH ×4 (06:54→22:01)
[2018-11-07] MEDS: HEPARIN NA (PORCINE) 5,000 UNITS/ML 1ML VIAL SQ SCH ×3 (06:55→22:01)
[2018-11-07 06:57] LABS: EOS % 1.8 % (0-4.5); HEMATOCRIT 30.3 % (32.4-45.2); HEMOGLOBIN 9.3 GM/dL (10.7-15.3); LYMPH % 29.9 % (8-40); MCH 23.5 pg (25.7-33.7); MCHC 30.8 g/dl (32.0-36.0); MEAN CELL VOLUME 76.4 fl (80-96); MEAN PLT VOLUME 8.6 fl (7.5-11.1); NEUT % 53.3 % (42.8-82.8); PLATELET COUNT 152 K/MM3 (134-434); RBC 3.96 M/mm3 (3.60-5.2); RDW 16.5 % (11.6-15.6)
[2018-11-07 07:50] LABS: ALBUMIN 2.8 g/dl (3.4-5.0); ALK PHOS 183 U/L (45-117); ANION GAP 8 MMOL/L (8-16); BILIRUBIN,TOTAL 0.6 mg/dL (0.2-1); BLOOD UREA NITROGEN 42 mg/dL (7-18); CALCIUM 8.3 mg/dL (8.5-10.1); CHLORIDE 97 mmol/L (98-107); CO2 29 mmol/L (21-32); CREATININE 3.6 mg/dL (0.55-1.3); GLUCOSE,RANDOM 105 mg/dL (74-106); PHOSPHOROUS 3.2 mg/dL (2.5-4.9); POTASSIUM 4.5 mmol/L (3.5-5.1); SGOT/AST 45 U/L (15-37); SGPT/ALT 25 U/L (13-61); SODIUM 133 mmol/L (136-145); TOT PROT 6.6 g/dl (6.4-8.2)
--- NOTE | 2018-11-07 08:15 | PN ---
Teaching Attending Note Name of Resident: Charmaine Banda ATTENDING PHYSICIAN STATEMENT I saw and evaluated the patient. I reviewed the resident's note and discussed the case with the resident. I agree with the resident's findings and plan as documented with exceptions below. SUBJECTIVE: Patient seen and examined. OBJECTIVE: Vital Signs Period Temp Pulse Resp BP Sys/Shankar Pulse Ox Last 24 Hr 97.6 F-98.4 F 77-81 16-20 101-127/57-72 99-100 Intake & Output 11/04/18 11/05/18 11/06/18 11/07/18 23:59 23:59 23:59 23:59 Intake Total 640 340 550 Output Total 100 130 200 160 Balance 540 210 350 -160 Weight 212 lb 209 lb 223 lb General: sitting in bed in no acute distress Chest: decreased breath sounds at bases Abdomen;Soft, obese, NT, nephrostomy tube right, no CVA or suprapubic tenderness noted Extremities: some improvement in pedal edema Active Medications Acetaminophen (Tylenol -) 500 mg PO Q6H PRN PRN Reason: PAIN 1-3 Last Admin: 11/05/18 00:22 Dose: 500 mg Aspirin (Asa -) 81 mg PO DAILY [facility] Last Admin: 11/06/18 09:41 Dose: 81 mg Carvedilol (Coreg Cr -) 40 mg PO DAILY [facility] Last Admin: 11/06/18 09:41 Dose: Not Given Cholecalciferol (Vitamin D3 -) 5,000 unit PO DAILY [facility] Last Admin: 11/06/18 09:41 Dose: 5,000 unit Clonazepam (Klonopin -) 0.5 mg PO Q6HPO [facility] Last Admin: 11/07/18 06:55 Dose: 0.5 mg Docusate Sodium (Colace -) 100 mg PO DAILY [facility] Last Admin: 11/06/18 09:41 Dose: 100 mg Ezetimibe (Zetia -) 10 mg PO DAILY [facility] Last Admin: 11/06/18 09:42 Dose: 10 mg Epoetin Alin (Procrit -) 10,000 unit SQ ONCE ONE Stop: 11/07/18 10:46 Glycerin (Glycerin Suppository Adult -) 1 each RC DAILY PRN PRN Reason: CONSTIPATION Heparin Sodium (Porcine) (Heparin -) 5,000 unit SQ TID [facility] Last Admin: 11/07/18 06:55 Dose: 5,000 unit Insulin Aspart (Novolog Vial Sliding Scale -) [address] [facility]; Protocol Last Admin: 11/07/18 06:54 Dose: Not Given Insulin Detemir (Levemir Vial) 5 units SQ [facility] Last Admin: 11/06/18 21:14 Dose: Not Given Latanoprost (Xalatan 0.005% Eye Drops -) 1 drop OU HS [facility] Last Admin: 11/06/18 21:15 Dose: 1 drop (Fluticasone/Vilanterol [Breo Ellipta 100-25 Mcg] Patient's Own Medication (Non - Formulary) 1 each IH DAILY [facility] Last Admin: 11/06/18 09:40 Dose: 1 each Ondansetron HCl (Zofran Injection) 4 mg IVPUSH Q6H PRN PRN Reason: NAUSEA AND/OR VOMITING Polyethylene Glycol (Miralax (For Daily Use) -) 17 gm PO DAILY [facility] Last Admin: 11/06/18 09:40 Dose: Not Given Prasugrel (Effient -) 10 mg PO DAILY [facility] Last Admin: 11/06/18 09:40 Dose: 10 mg Propylthiouracil (Ptu -) 50 mg PO DAILY [facility] Rosuvastatin Calcium (Crestor -) 10 mg PO HS [facility] Last Admin: 11/06/18 21:14 Dose: 10 mg Senna (Senna -) 2 tab PO HS PRN PRN Reason: CONSTIPATION Simethicone (Mylicon -) 80 mg PO Q4H PRN PRN Reason: GAS Last Admin: 11/06/18 16:56 Dose: 80 mg Torsemide (Demadex -) 100 mg PO DAILY [facility] Last Admin: 11/06/18 09:41 Dose: 100 mg Laboratory Results - last 24 hr 11/06/18 11/06/18 11/06/18 06:30 10:30 10:30 WBC RBC Hgb Hct MCV MCH MCHC RDW Plt Count MPV Absolute Neuts (auto) Neutrophils % Lymphocytes % Monocytes % Eosinophils % Basophils % Nucleated RBC % Sodium 134 L Potassium 4.4 Chloride 96 L Carbon Dioxide 27 Anion Gap 10 BUN 36 H Creatinine 3.2 H Creat Clearance w eGFR 14.63 POC Glucometer Random Glucose 158 H Calcium 8.1 L Phosphorus 2.4 L Magnesium 2.0 Total Bilirubin 0.6 AST 46 H ALT 26 Alkaline Phosphatase 162 H Total Protein 6.2 L Albumin 2.8 L TSH 1.97 Urine Color Abbie Abbie Urine Appearance Cloudy Cloudy Urine pH 5.0 5.0 Ur Specific [place] 1.020 1.017 Urine Protein 2+ H 2+ H Urine Glucose (UA) 1+ H 1+ H Urine Ketones Trace H Negative Urine Blood 3+ H 3+ H Urine Nitrite Negative Negative Urine Bilirubin Negative Negative Urine Urobilinogen 2.0 H Negative Ur Leukocyte Esterase Trace 2+ H Urine WBC (Auto) 43 1318 Urine RBC (Auto) 49 1834 Ur Epithelial Cells Many Urine Bacteria Many Hyaline Casts 4 Urine Mucus Rare Urine Yeast Few 11/06/18 11/06/18 11/06/18 11:41 16:32 21:13 WBC RBC Hgb Hct MCV MCH MCHC RDW Plt Count MPV Absolute Neuts (auto) Neutrophils % Lymphocytes % Monocytes % Eosinophils % Basophils % Nucleated RBC % Sodium Potassium Chloride Carbon Dioxide Anion Gap BUN Creatinine Creat Clearance w eGFR POC Glucometer 142 128 125 Random Glucose Calcium Phosphorus Magnesium Total Bilirubin AST ALT Alkaline Phosphatase Total Protein Albumin TSH Urine Color Urine Appearance Urine pH Ur Specific [place] Urine Protein Urine Glucose (UA) Urine Ketones Urine Blood Urine Nitrite Urine Bilirubin Urine Urobilinogen Ur Leukocyte Esterase Urine WBC (Auto) Urine RBC (Auto) Ur Epithelial Cells Urine Bacteria Hyaline Casts Urine Mucus Urine Yeast 11/07/18 11/07/18 11/07/18 05:45 05:45 06:27 WBC 5.0 RBC 3.96 Hgb 9.3 L Hct 30.3 L MCV 76.4 L MCH 23.5 L MCHC 30.8 L RDW 16.5 H Plt Count 152 D MPV 8.6 Absolute Neuts (auto) 2.7 Neutrophils % 53.3 Lymphocytes % 29.9 D Monocytes % 14.0 H Eosinophils % 1.8 Basophils % 1.0 Nucleated RBC % 0 Sodium 133 L Potassium 4.5 Chloride 97 L Carbon Dioxide 29 Anion Gap 8 BUN 42 H Creatinine 3.6 H Creat Clearance w eGFR 12.77 POC Glucometer 109 Random Glucose 105 Calcium 8.3 L Phosphorus 3.2 Magnesium 2.0 Total Bilirubin 0.6 AST 45 H ALT 25 Alkaline Phosphatase 183 H Total Protein 6.6 Albumin 2.8 L TSH Urine Color Urine Appearance Urine pH Ur Specific [place] Urine Protein Urine Glucose (UA) Urine Ketones Urine Blood Urine Nitrite Urine Bilirubin Urine Urobilinogen Ur Leukocyte Esterase Urine WBC (Auto) Urine RBC (Auto) Ur Epithelial Cells Urine Bacteria Hyaline Casts Urine Mucus Urine Yeast Microbiology 11/04/18 11:30 Urine - Urostomy Bag Urine Culture - Final Staphylococcus Simulans 10/19/18 11:24 Urine - Urine Nephrostomy Tube Right Urine Culture - Final NO GROWTH OBTAINED 10/16/18 16:57 Urine - Urine Clean Catch Urine Culture - Final NO GROWTH OBTAINED ASSESSMENT AND PLAN: 63 yo F PMx DM, HTN, HLD, [place] in 2012 s/p stents, CABG, Afib, asthma, hyperthyroidism s/p I-131, CKD, anemia with multi med intolerances, with Chest Pain and palpitations -COmplicated UTI vs contamination -Abdominal bloating, suspect ga +/- fluid overload. 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 -Atrial tachycardia with RVR -Hyperthyroidism s/p I-131 -Obstructive uropathy from urinary tract anomaly s/p Right nephrostomy tube placement 10/19 -Acute on CKD stage III, suspect suspect cardiorenal from poor perfusion, started on HD 10/27 via permacath. s/p Left AV fistula 11/02 -Elevated troponin, suspect demand induced from above -CAD s/p PCI 2012, s/p CABG -Asthma -Anemia Plan: U/a voided and from nephrostomy noted. urine cx from nephrostomy bag with coag neg staph. Suspect contamination. Discussed with Dr. Cardoza, plan for nephrostomy tube change tomorrow. Hold ASA/prasugrel. Off levaquin. CT A/P with no new concerns. Urology input noted, outpatient follow up for anterograde stent. LUE symptoms likely from anesthesia block as discussed with vascular surgery and anesthesia, resolved. Dry weight 205. s/p HD started on 10/27. Volume status improving. (today's weight likely erroneous) Nephrology/Cardiology input noted. Torsemide 100 mg daily. s/p AV fistula placement 11/02. Will be assessed for need for ongoing HD over next few months based on volume status and renal function. HR improved. Coreg. TSH normalized. Endocrine input noted, decreased PTU. Continue till TSH > 5. Troponin flat, suspect demand mediated. had recent PCI and no repeat CP since then. Levemir 5 units hs for now, ISS, diabetic diet. Monitor insulin requirements while renal function improves. DVTPPX heparin Dispo d/c home with services tomorrow after nephrostomy tube change. Outpatient HD arrangements made. Plan discussed with patient and nursing in detail, all questions answered.
[2018-11-07] MEDS: CARVEDILOL PHOSPHATE CR 40 MG CAPSULE (FP) PO SCH (10:13)
[2018-11-07] MEDS: POLYETHYLENE GLYCOL 3350 119 GM BTL PO SCH (10:15)
[2018-11-07] MEDS: EZETIMIBE 10 MG TABLET (FP) PO SCH (10:15)
[2018-11-07] MEDS: TORSEMIDE 100 MG TABLET PO SCH (10:15)
[2018-11-07] MEDS: DOCUSATE SODIUM 100 MG CAPSULE (FP) PO SCH (10:20)
[2018-11-07] MEDS: [UNRECOGNIZED DRUG - OTHER] IH SCH (10:20)
[2018-11-07] MEDS: PROPYLTHIOURACIL 50 MG TABLET (UD) PO SCH (10:20)
--- NOTE | 2018-11-07 10:38 | PN ---
Progress Note, Physician Chief Complaint: sob History of Present Illness: remains sob and abdomen markedly bloated--though improved vs yesterday. no gas/constipation still. no cp. + palpitations much of the night. leg swelling unchanged no cigs - Current Medication List Current Medications: Active Medications Acetaminophen (Tylenol -) 500 mg PO Q6H PRN PRN Reason: PAIN 1-3 Last Admin: 11/05/18 00:22 Dose: 500 mg Aspirin (Asa -) 81 mg PO DAILY [facility] Last Admin: 11/06/18 09:41 Dose: 81 mg Carvedilol (Coreg Cr -) 40 mg PO DAILY [facility] Last Admin: 11/07/18 10:13 Dose: Not Given Cholecalciferol (Vitamin D3 -) 5,000 unit PO DAILY [facility] Last Admin: 11/06/18 09:41 Dose: 5,000 unit Clonazepam (Klonopin -) 0.5 mg PO Q6HPO [facility] Last Admin: 11/07/18 06:55 Dose: 0.5 mg Docusate Sodium (Colace -) 100 mg PO DAILY [facility] Last Admin: 11/07/18 10:20 Dose: 100 mg Ezetimibe (Zetia -) 10 mg PO DAILY [facility] Last Admin: 11/07/18 10:15 Dose: Not Given Epoetin Alin (Procrit -) 10,000 unit SQ ONCE ONE Stop: 11/07/18 10:46 Glycerin (Glycerin Suppository Adult -) 1 each RC DAILY PRN PRN Reason: CONSTIPATION Heparin Sodium (Porcine) (Heparin -) 5,000 unit SQ TID [facility] Last Admin: 11/07/18 06:55 Dose: 5,000 unit Insulin Aspart (Novolog Vial Sliding Scale -) 1 vial SQ [facility]; Protocol Last Admin: 11/07/18 06:54 Dose: Not Given Insulin Detemir (Levemir Vial) [address] [facility] Last Admin: 11/06/18 21:14 Dose: Not Given Latanoprost (Xalatan 0.005% Eye Drops -) 1 drop OU HS [facility] Last Admin: 11/06/18 21:15 Dose: 1 drop (Fluticasone/Vilanterol [Breo Ellipta 100-25 Mcg] Patient's Own Medication (Non - Formulary) 1 each IH DAILY [facility] Last Admin: 11/07/18 10:20 Dose: 1 each Ondansetron HCl (Zofran Injection) 4 mg IVPUSH Q6H PRN PRN Reason: NAUSEA AND/OR VOMITING Polyethylene Glycol (Miralax (For Daily Use) -) 17 gm PO DAILY [facility] Last Admin: 11/07/18 10:15 Dose: Not Given Prasugrel (Effient -) 10 mg PO DAILY [facility] Last Admin: 11/06/18 09:40 Dose: 10 mg Propylthiouracil (Ptu -) 50 mg PO DAILY [facility] Last Admin: 11/07/18 10:20 Dose: 50 mg Rosuvastatin Calcium (Crestor -) 10 mg PO HS [facility] Last Admin: 11/06/18 21:14 Dose: 10 mg Senna (Senna -) 2 tab PO HS PRN PRN Reason: CONSTIPATION Simethicone (Mylicon -) 80 mg PO Q4H PRN PRN Reason: GAS Last Admin: 11/06/18 16:56 Dose: 80 mg Torsemide (Demadex -) 100 mg PO DAILY [facility] Last Admin: 11/07/18 10:15 Dose: Not Given - Objective Vital Signs: Vital Signs Temperature 98.9 F 11/07/18 08:03 Pulse Rate 103 H 11/07/18 08:03 Respiratory Rate 19 11/07/18 08:03 Blood Pressure 130/76 11/07/18 08:03 O2 Sat by Pulse Oximetry (%) 100 11/07/18 08:03 Constitutional: Yes: No Distress, Calm Eyes: No: Sclera Icterus HENT: No: Nasal Congestion Cardiovascular: Yes: Regular Rate and Rhythm, S1, S2, Other (PMI non diplaced). No: JVD (in chair), Gallop, Murmur Respiratory: Yes: CTA Bilaterally. No: Accessory Muscle Use, Rales, Wheezes Gastrointestinal: Yes: Normal Bowel Sounds, Soft. No: Tenderness Musculoskeletal: Yes: Other (No kyphosis) Extremities: No: Cold Edema: Yes (3+ pretib) Integumentary: No: Jaundice Neurological: Yes: Alert, Oriented (x3) Psychiatric: No: Agitated Labs: CBC, BMP 11/07/18 05:45 11/07/18 05:45 INR, PTT INR 1.34 (0.83-1.09) H 10/16/18 16:54 Assessment/Plan ECG's 11/04, 11/05: tachy (AT), nonsp ST-Ts lateral and inferior--no change vs prior CXR 11/06: improved congestive changes vs prior, mild congestion likely present. L effusion persists Echo 07/2018 inf wall akinetic, other phillip severely hypokinetic, LV mildly dilated, RV function moderately reduced, LV function severely reduced, moderate MR, EF 30% Echo 12/2016: TDS. nl LV size/EF. mild LVH. grade 2 d.d., hi E/e' = high LAP. nl RV. mild LAE. mild-mod MR, mod TR. mild pHTN (46 mmHg) [facility] 2014: unchanged 70-80% distal RCA lesion. patent mLAD stent. 80-90% pLCX-- [facility] Tele: NSR > AT a/p: 63 yo female hx cad/pci, hyperthyroidism with associated tachycardia, palpitations, unintentional wt loss, acute on chronic labile HTN with mult med intolerances, mildly decompensated diast chf, and new LE edema (out of proportion to the degree of CHF), p/w le edema,sob. 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 Chen d/w'd dr olsen. pt diureses briskly to iv lasix (100mg) here. ? will be able to maintain volume status with po torsemide +/- metolazone, and will not need maintenance HD. plan is to optimize her volume status as much as possible in next couple weeks (which will also help cardiac output and minimize gut edema/enhance bioavailability of po diuretics), then see if she can maintain without continued HD/UF (hi risk of permacath infection given chronic uncontrolled DM). - 11/01-present: tolerating HD/UF well, effective volume removal, wt down. cont torsemide 100 po daily. - 11/07: developed incr abd girth/bloating yesterday. only small ascited on CT abdomen 11/04. CXR improving congestion. wt has come way down (today's likely erroneous). if this represents progressive RV failure, at the moment the only appropriate treatment is continued volume optimization with lasix and HD (would defer risks of tachy-arrhythmia with milrinone unless volume is refractory and symptomatic). resume lasix 100 iv (qd for now) - bb dose limited by new hypotension/dizziness--has changed metoprolol succ to coreg CR and insists this causes her less dizziness. cont same coreg - holding hydral, NTG patch (hypotension) - not on SHAN/ARB in setting of ckd obstructive uropathy, OBI on CKD: -probably new baseline creatinine in 3-3.3 range based on recent labs trends -recently bumped to 3.5 as outpt--? sec to obstruction -s/p nephrostomy tubes 10/19, creat rising sec to cardiorenal syndrome -now on HD, s/p avf -hematuria/dysuria, plan for outpt stent per hyperthyroidism, sinus tach, PAT (note: no afib/flutter present thus far): - intolerant of methimazole (elevated LFTs) - s/p radio-I ablation - high burden of ATach with LV systolic dysfunction, now with new afib - low dose PTU resumed, patient tolerating (pt self-discontinued it at home for nausea) with improvement in heart rate - metopr high dose appeared to control PAT burden better than carvedilol, however caused hypotension/dizzy and pt changed back. she declines changing back to metoprolol. (previously intolerant of atenolol, propranolol). - no amiodarone in light of uncontrolled hyperthyroidism. no digoxin in light of very low GFR. no CCB in light of systolic dysfxn and previous intolerance ( edema) - given low bp trend and weakness/dizziness, coreg CR was decreased to 40 daily dosing (pt with longstanding HTN baseline bp 140s-160s, often higher--may not tolerate bp 100-110) - tachy burden incr'd today--? sec to UTI. cont coreg Cr 40, observe tele - 11/01: TSH finally normalized!!!!!!!!!!!!!!!!!!!!!!!!!!!!!!!!!!!!!!!!!! - will consider ablation once renal fxn is stabilized, though doubt she is a candidate in current condition (tenuous HF status, uncontrolled hyperthyroidism) - given no fib present, and no definitive atr flutter thus far, will defer AC for now. LE swelling: - started at time of hyperthyroidism, and remains out of proportion to HF findings - responded well to wraps - diuresis, HD as above Elevated troponin - baseline trop 0.2-0.5 sec to chronic HF (+/- CKD) labile HTN: -mult med intolerances in past -bp stable currently CAD, prior NSTEMI/PCI: -DAPT held now for planned AV fistula--cont asa 81 as doing -cont home statin (max tolerated dose rosuva 20 with drug holidays), zetia -bb as bp tolerates
[2018-11-07] MEDS ORDERED: FUROSEMIDE 100 MG/10 ML INJECTABLE VIAL IVPB SCH (11:00)
[2018-11-07] MEDS ORDERED: FUROSEMIDE 100 MG/10 ML INJECTABLE VIAL IVPUSH SCH (11:00)
[2018-11-07] MEDS: FUROSEMIDE 100 MG/10 ML INJECTABLE VIAL IVPUSH SCH (12:42)
[2018-11-07] MEDS: CHOLECALCIFEROL (VITAMIN D3) 1,000 UNIT TABLET (FP) PO SCH (12:42)
[2018-11-07] MEDS ORDERED: EPOETIN ALFA 10,000 UNIT/1 ML VIAL SQ ONE (14:00)
--- NOTE | 2018-11-07 14:43 | PN ---
Physical Exam: SUBJECTIVE: Patient seen and examined at bedside- patient complains of worsening shortness of breath and abdominal bloating/distention. however she is no longer having chest pain at the [facility] she denies any CP/N/V fevers or chills. patient is going for HD this AM. Cr this AM was 3.6 OBJECTIVE: Vital Signs Period Temp Pulse Resp BP Sys/Shankar Pulse Ox Last 24 Hr 97.6 F-98.9 F 77-103 16-20 116-130/60-76 100-100 GENERAL: The patient is awake, alert, and fully oriented, in no acute distress. EYES: Pno scleral icterus NECK: diminishing JVD LUNGS:better inspiratory effort; no ral,es rhoncihi or wheezing HEART: Regular rate and rhythm, S1, S2 without murmur, rub or gallop. ABDOMEN: Soft, distenended, non-tender, +BS EXTREMITIES: 2+ pulses, warm, well-perfused, 2+ edema B/L. PSYCH: Normal mood, normal affect. SKIN: Warm, dry, normal turgor, no rashes or lesions noted Laboratory Results - last 24 hr 11/06/18 11/06/18 11/06/18 10:30 16:32 21:13 WBC RBC Hgb Hct MCV MCH MCHC RDW Plt Count MPV Absolute Neuts (auto) Neutrophils % Lymphocytes % Monocytes % Eosinophils % Basophils % Nucleated RBC % Sodium Potassium Chloride Carbon Dioxide Anion Gap BUN Creatinine Creat Clearance w eGFR POC Glucometer 128 125 Random Glucose Calcium Phosphorus Magnesium Total Bilirubin AST ALT Alkaline Phosphatase Total Protein Albumin Urine Color Abbie Urine Appearance Cloudy Urine pH 5.0 Ur Specific [place] 1.017 Urine Protein 2+ H Urine Glucose (UA) 1+ H Urine Ketones Negative Urine Blood 3+ H Urine Nitrite Negative Urine Bilirubin Negative Urine Urobilinogen Negative Ur Leukocyte Esterase 2+ H Urine WBC (Auto) 1318 Urine RBC (Auto) 1834 Urine Bacteria Many 11/07/18 11/07/18 11/07/18 05:45 05:45 06:27 WBC 5.0 RBC 3.96 Hgb 9.3 L Hct 30.3 L MCV 76.4 L MCH 23.5 L MCHC 30.8 L RDW 16.5 H Plt Count 152 D MPV 8.6 Absolute Neuts (auto) 2.7 Neutrophils % 53.3 Lymphocytes % 29.9 D Monocytes % 14.0 H Eosinophils % 1.8 Basophils % 1.0 Nucleated RBC % 0 Sodium 133 L Potassium 4.5 Chloride 97 L Carbon Dioxide 29 Anion Gap 8 BUN 42 H Creatinine 3.6 H Creat Clearance w eGFR 12.77 POC Glucometer 109 Random Glucose 105 Calcium 8.3 L Phosphorus 3.2 Magnesium 2.0 Total Bilirubin 0.6 AST 45 H ALT 25 Alkaline Phosphatase 183 H Total Protein 6.6 Albumin 2.8 L Urine Color Urine Appearance Urine pH Ur Specific [place] Urine Protein Urine Glucose (UA) Urine Ketones Urine Blood Urine Nitrite Urine Bilirubin Urine Urobilinogen Ur Leukocyte Esterase Urine WBC (Auto) Urine RBC (Auto) Urine Bacteria 11/07/18 10:24 WBC RBC Hgb Hct MCV MCH MCHC RDW Plt Count MPV Absolute Neuts (auto) Neutrophils % Lymphocytes % Monocytes % Eosinophils % Basophils % Nucleated RBC % Sodium Potassium Chloride Carbon Dioxide Anion Gap BUN Creatinine Creat Clearance w eGFR POC Glucometer 189 Random Glucose Calcium Phosphorus Magnesium Total Bilirubin AST ALT Alkaline Phosphatase Total Protein Albumin Urine Color Urine Appearance Urine pH Ur Specific [place] Urine Protein Urine Glucose (UA) Urine Ketones Urine Blood Urine Nitrite Urine Bilirubin Urine Urobilinogen Ur Leukocyte Esterase Urine WBC (Auto) Urine RBC (Auto) Urine Bacteria Active Medications Generic Name Dose Route Start Last Admin Trade Name Freq PRN Reason Stop Dose Admin Acetaminophen 500 mg 11/02/18 16:40 11/05/18 00:22 Tylenol - PO 500 mg Q6H PRN Administration PAIN 1-3 Aspirin 81 mg 11/03/18 10:00 11/06/18 09:41 Asa - PO 81 mg DAILY [facility] Administration Carvedilol 40 mg 11/03/18 10:00 11/07/18 10:13 Coreg Cr - PO Not Given DAILY [facility] Cholecalciferol 5,000 unit 11/03/18 10:00 11/07/18 12:42 Vitamin D3 - PO 5,000 unit DAILY [facility] Administration Clonazepam 0.5 mg 11/03/18 05:30 11/07/18 12:42 Klonopin - PO 0.5 mg Q6HPO [facility] Administration Docusate Sodium 100 mg 11/03/18 10:00 11/07/18 10:20 Colace - PO 100 mg DAILY [facility] Administration Ezetimibe 10 mg 11/03/18 10:00 11/07/18 10:15 Zetia - PO Not Given DAILY [facility] Furosemide 100 mg 11/07/18 11:15 11/07/18 12:42 Lasix Injection - IVPUSH Not Given DAILY [facility] Glycerin 1 each 11/02/18 16:40 Glycerin Suppository Adult - RC DAILY PRN CONSTIPATION Heparin Sodium (Porcine) 5,000 unit 11/02/18 22:00 11/07/18 13:52 Heparin - SQ Not Given TID [facility] Insulin Aspart 1 vial 11/02/18 22:00 11/07/18 11:21 Novolog Vial Sliding Scale - SQ Not Given ACHS [facility] Protocol Insulin Detemir 5 units 11/02/18 22:00 11/06/18 21:14 Levemir Vial SQ Not Given HS [facility] Latanoprost 1 drop 11/05/18 22:00 11/06/18 21:15 Xalatan 0.005% Eye Drops - OU 1 drop HS [facility] Administration (Fluticasone/ 1 each 11/03/18 10:00 11/07/18 10:20 Vilanterol [Breo IH 1 each Ellipta 100-25 Mcg] DAILY [facility] Administration Patient's Own Medication (Non- Formulary) Ondansetron HCl 4 mg 11/02/18 16:40 Zofran Injection IVPUSH Q6H PRN NAUSEA AND/OR VOMITING Polyethylene Glycol 17 gm 11/03/18 10:00 11/07/18 10:15 Miralax (For Daily Use) - PO Not Given DAILY [facility] Prasugrel 10 mg 11/05/18 10:00 11/06/18 09:40 Effient - PO 10 mg DAILY [facility] Administration Propylthiouracil 50 mg 11/07/18 10:00 11/07/18 10:20 Ptu - PO 50 mg DAILY [facility] Administration Rosuvastatin Calcium 10 mg 11/02/18 22:00 11/06/18 21:14 Crestor - PO 10 mg HS [facility] Administration Senna 2 tab 11/02/18 22:00 Senna - PO HS PRN CONSTIPATION Simethicone 80 mg 11/06/18 10:44 11/06/18 16:56 Mylicon - PO 80 mg Q4H PRN Administration GAS ASSESSMENT/PLAN: Patient is a 63 year old female with history of CHF, [place] s/p stents, CAD, DMII, hyperthyroidism, CKD stage V, HTN, HLD, presents with complaint of chest tightness, palpitations. Afib: -patient started on heparin drip here -Coreg 40 daily; which was decreased from 40 BID -continue tele monitoring; patient still having episodes of tachycardia; but less frequent since the increase in PTU dose Hyperthyroidism: -latest TSH was 1.37; normalized -on PTU [address] Gonsales- when TSH >5 no more PTU needed -c/w beta isrrael therapy Caliectasis: -patient had right nephrostomy tube placed -monitor output -Dr. Menendez saw pt a few days ago should get anterograde stent as an outpatient -patients nephrostomy urine cx are growing staph simsulaiman; patient will be NPO after midnight as she will be getting her tube changed tomorrow by Dr. martino CKD stage V: -baseline Cr 3.2; currently 3.6 this morning- -patient had dialysis this AM -will go on a // sched as outpatient CHF; -monitor daily weights -I's and O's -givne her increased distention, dr Chen put patient bakc on 100 IV lasix daily DM -decreased levemir dosing from 20 units HS to 5 units HS as patients renal function is worsening and shes is becoming slightly more hypoglycemic -ISS ACHS -BGMS ACHS CAD -holding aspirin and prasugrel HTN -c/w coreg 40 daily UTI -cx from nephrostomy tube growing staph simulans -however clean catch U/A is negative -tube change for tomorrow - F/E/N -no fluids -replete electrolytes accordingly -NPO after midnight PPX:Heaprin Sq Problem List - Problems (1) A-fib Code(s): I48.91 - UNSPECIFIED ATRIAL FIBRILLATION (2) Hyperthyroidism Code(s): E05.90 - THYROTOXICOSIS, UNSP WITHOUT THYROTOXIC CRISIS OR STORM (3) Acute pulmonary edema with congestive heart failure Code(s): I50.1 - LEFT VENTRICULAR FAILURE, UNSPECIFIED Visit type - Emergency Visit Emergency Visit: Yes ED Registration Date: 10/16/18 Care time: The patient presented to the Emergency Department on the above date and was hospitalized for further evaluation of their emergent condition. - New Patient This patient is new to me today: No - Critical Care Critical Care patient: No
--- NOTE | 2018-11-07 17:37 | PN ---
Progress Note (short form) - Note Progress Note: Renal follow up for OBI/CKD Pt seen and examined at the bedside no acute complaints had sob yesterday and wednesday making urine nephrostomy urine still appears dark Vital Signs Temperature 97.9 F 11/07/18 13:21 Pulse Rate 80 11/07/18 16:25 Respiratory Rate 18 11/07/18 16:25 Blood Pressure 125/69 11/07/18 16:25 O2 Sat by Pulse Oximetry (%) 100 11/07/18 08:03 Intake & Output 11/04/18 11/05/18 11/06/18 11/07/18 23:59 23:59 23:59 23:59 Intake Total 640 340 550 150 Output Total 100 130 200 160 Balance 540 210 350 -10 Weight 96.162 kg 94.801 kg 101.151 kg NAD left hand is warm, distal pules intact ++ edmea in Le no flank pain CBC, BMP 11/07/18 05:45 11/07/18 05:45 Current Medications Acetaminophen (Tylenol -) 500 mg PO Q6H PRN PRN Reason: PAIN 1-3 Last Admin: 11/05/18 00:22 Dose: 500 mg Aspirin (Asa -) 81 mg PO DAILY [facility] Last Admin: 11/06/18 09:41 Dose: 81 mg Carvedilol (Coreg Cr -) 40 mg PO DAILY [facility] Last Admin: 11/07/18 10:13 Dose: Not Given Cholecalciferol (Vitamin D3 -) 5,000 unit PO DAILY [facility] Last Admin: 11/07/18 12:42 Dose: 5,000 unit Clonazepam (Klonopin -) 0.5 mg PO Q6HPO [facility] Last Admin: 11/07/18 17:12 Dose: 0.5 mg Docusate Sodium (Colace -) 100 mg PO DAILY [facility] Last Admin: 11/07/18 10:20 Dose: 100 mg Ezetimibe (Zetia -) 10 mg PO DAILY [facility] Last Admin: 11/07/18 10:15 Dose: Not Given Furosemide (Lasix Injection -) 100 mg IVPUSH DAILY [facility] Last Admin: 11/07/18 12:42 Dose: Not Given Glycerin (Glycerin Suppository Adult -) 1 each RC DAILY PRN PRN Reason: CONSTIPATION Heparin Sodium (Porcine) (Heparin -) 5,000 unit SQ TID [facility] Last Admin: 11/07/18 13:52 Dose: Not Given Insulin Aspart (Novolog Vial Sliding Scale -) 1 vial SQ [facility]; Protocol Last Admin: 11/07/18 17:11 Dose: 2 units Insulin Detemir (Levemir Vial) 5 units SQ HS [facility] Last Admin: 11/06/18 21:14 Dose: Not Given Latanoprost (Xalatan 0.005% Eye Drops -) 1 drop OU HS [facility] Last Admin: 11/06/18 21:15 Dose: 1 drop (Fluticasone/Vilanterol [Breo Ellipta 100-25 Mcg] Patient's Own Medication (Non - Formulary) 1 each IH DAILY [facility] Last Admin: 11/07/18 10:20 Dose: 1 each Ondansetron HCl (Zofran Injection) 4 mg IVPUSH Q6H PRN PRN Reason: NAUSEA AND/OR VOMITING Polyethylene Glycol (Miralax (For Daily Use) -) 17 gm PO DAILY [facility] Last Admin: 11/07/18 10:15 Dose: Not Given Prasugrel (Effient -) 10 mg PO DAILY [facility] Last Admin: 11/06/18 09:40 Dose: 10 mg Propylthiouracil (Ptu -) 50 mg PO DAILY [facility] Last Admin: 11/07/18 10:20 Dose: 50 mg Rosuvastatin Calcium (Crestor -) 10 mg PO HS [facility] Last Admin: 11/06/18 21:14 Dose: 10 mg Senna (Senna -) 2 tab PO HS PRN PRN Reason: CONSTIPATION Simethicone (Mylicon -) 80 mg PO Q4H PRN PRN Reason: GAS Last Admin: 11/06/18 16:56 Dose: 80 mg 63 yo F PMx DM, HTN, HLD, [place] in 2012 s/p stents, CABG, Afib, asthma, hyperthyroidism s/p STEINBERG, CKD, anemia with mult med intolerances, with CP and palpitations #OBI on CKD with unilateral obstruction s/p nephrostomy tube now requiring dialysis (uremic symptoms + fluid overload) #Acute on chronic CHF (improving with UF and diuretics) #Hypertension #Anemia #Hyperthyroidism (TSH remains very low, on PTU) for dialysis today with 3.5 L UF as tolerated Continue Lasix 100mg Daily as per cardiology for nephrostomy tube exchange tomorrow Cultures grew unusual bacteria, likely a contaminant Hgb stable despite hematuria CT showed no overt pathology and appropriate placement of nephrostomy tube will discuss with IR if stenting can be done this admission or would wait until any suspicion of infection if cleared Goyo Smith DO
[2018-11-07] MEDS ORDERED: PT OWN MED DRAWER 7, Y5N ONE ×2 (21:52→23:30)
[2018-11-07] MEDS: ROSUVASTATIN CA 10 MG TABLET (FP) PO SCH (21:59)
[2018-11-07] MEDS: INSULIN (LEVEMIR) 100 UNITS/ML UNITS SQ SCH (22:01)
[2018-11-07] MEDS: LATANOPROST 0.005% OPHTH SOLN 2.5ML BOTTLE OU SCH (22:02)
[2018-11-08] MEDS: clonazePAM 0.5 MG TABLET PO SCH ×3 (06:07→17:38)
[2018-11-08] MEDS: INSULIN SLIDING SCALE (NOVOLOG) 1 VIAL SQ SCH ×4 (06:08→21:41)
[2018-11-08] MEDS: HEPARIN NA (PORCINE) 5,000 UNITS/ML 1ML VIAL SQ SCH ×4 (06:08→21:42)
[2018-11-08 06:39] LABS: HEMATOCRIT 28.2 % (32.4-45.2); HEMOGLOBIN 8.7 GM/dL (10.7-15.3); MCH 23.7 pg (25.7-33.7); MCHC 30.9 g/dl (32.0-36.0); MEAN CELL VOLUME 76.6 fl (80-96); MEAN PLT VOLUME 8.5 fl (7.5-11.1); PLATELET COUNT 146 K/MM3 (134-434); RBC 3.68 M/mm3 (3.60-5.2); RDW 16.5 % (11.6-15.6); WHITE BLOOD COUNT 4.4 K/mm3 (4.0-10.0)
[2018-11-08] MEDS ORDERED: INSULIN SLIDING SCALE (NOVOLOG) 1 VIAL SQ ONE (06:54)
[2018-11-08] MEDS ORDERED: INSULIN (LEVEMIR) 100 UNITS/ML UNITS SQ ONE (06:54)
[2018-11-08 07:03] LABS: ANION GAP 8 MMOL/L (8-16); BLOOD UREA NITROGEN 29 mg/dL (7-18); CALCIUM 8.4 mg/dL (8.5-10.1); CHLORIDE 99 mmol/L (98-107); CO2 29 mmol/L (21-32); GLUCOSE,RANDOM 137 mg/dL (74-106); MAGNESIUM 1.8 mg/dL (1.8-2.4); PHOSPHOROUS 2.4 mg/dL (2.5-4.9); POTASSIUM 4.4 mmol/L (3.5-5.1); SODIUM 136 mmol/L (136-145)
[2018-11-08] MEDS ORDERED: NAPH,MB-DB/K PH,MBDB POWDER PACKET PO ONE (07:17)
[2018-11-08] MEDS ORDERED: TORSEMIDE 100 MG TABLET PO SCH (10:00)
[2018-11-08] MEDS: [UNRECOGNIZED DRUG - OTHER] IH SCH (12:01)
[2018-11-08] MEDS: CARVEDILOL PHOSPHATE CR 40 MG CAPSULE (FP) PO SCH (12:03)
[2018-11-08] MEDS: POLYETHYLENE GLYCOL 3350 119 GM BTL PO SCH (12:04)
[2018-11-08] MEDS: CHOLECALCIFEROL (VITAMIN D3) 1,000 UNIT TABLET (FP) PO SCH (12:05)
[2018-11-08] MEDS: PROPYLTHIOURACIL 50 MG TABLET (UD) PO SCH (12:06)
[2018-11-08] MEDS: DOCUSATE SODIUM 100 MG CAPSULE (FP) PO SCH (12:06)
[2018-11-08] MEDS: PRASUGREL HCL 10 MG TAB PO SCH (12:07)
[2018-11-08] MEDS: ASPIRIN 81 MG CHEWABLE TABLETS PO SCH (12:07)
[2018-11-08] MEDS: EZETIMIBE 10 MG TABLET (FP) PO SCH (12:08)
[2018-11-08] MEDS: FUROSEMIDE 100 MG/10 ML INJECTABLE VIAL IVPUSH SCH (12:09)
--- NOTE | 2018-11-08 12:35 | PN ---
Progress Note (short form) - Note Progress Note: Chief Complaint: sob History of Present Illness: abdominal swelling has improved. no chest pain, palps. stable edema. s/p nephrostomy tube change today no cigs Current Medications Acetaminophen (Tylenol -) 500 mg PO Q6H PRN PRN Reason: PAIN 1-3 Last Admin: 11/05/18 00:22 Dose: 500 mg Aspirin (Asa -) 81 mg PO DAILY [facility] Last Admin: 11/08/18 12:07 Dose: 81 mg Carvedilol (Coreg Cr -) 40 mg PO DAILY [facility] Last Admin: 11/08/18 12:03 Dose: Not Given Cholecalciferol (Vitamin D3 -) 5,000 unit PO DAILY [facility] Last Admin: 11/08/18 12:05 Dose: 5,000 unit Clonazepam (Klonopin -) 0.5 mg PO Q6HPO [facility] Last Admin: 11/08/18 06:07 Dose: 0.5 mg Docusate Sodium (Colace -) 100 mg PO DAILY [facility] Last Admin: 11/08/18 12:06 Dose: 100 mg Ezetimibe (Zetia -) 10 mg PO DAILY [facility] Last Admin: 11/08/18 12:08 Dose: 10 mg Furosemide (Lasix Injection -) 100 mg IVPUSH DAILY [facility] Last Admin: 11/08/18 12:09 Dose: 100 mg Glycerin (Glycerin Suppository Adult -) 1 each RC DAILY PRN PRN Reason: CONSTIPATION Heparin Sodium (Porcine) (Heparin -) 5,000 unit SQ TID [facility] Last Admin: 11/08/18 06:21 Dose: Not Given Insulin Aspart (Novolog Vial Sliding Scale -) 1 vial SQ [facility]; Protocol Last Admin: 11/08/18 12:23 Dose: Not Given Insulin Detemir (Levemir Vial) 5 units SQ HS [facility] Last Admin: 11/07/18 22:01 Dose: 5 units Latanoprost (Xalatan 0.005% Eye Drops -) 1 drop OU HS [facility] Last Admin: 11/07/18 22:02 Dose: 1 drop (Fluticasone/Vilanterol [Breo Ellipta 100-25 Mcg] Patient's Own Medication (Non - Formulary) 1 each IH DAILY [facility] Last Admin: 11/08/18 12:01 Dose: 1 each Ondansetron HCl (Zofran Injection) 4 mg IVPUSH Q6H PRN PRN Reason: NAUSEA AND/OR VOMITING Polyethylene Glycol (Miralax (For Daily Use) -) 17 gm PO DAILY [facility] Last Admin: 11/08/18 12:04 Dose: Not Given Prasugrel (Effient -) 10 mg PO DAILY [facility] Last Admin: 11/08/18 12:07 Dose: 10 mg Propylthiouracil (Ptu -) 50 mg PO DAILY [facility] Last Admin: 11/08/18 12:06 Dose: 50 mg Rosuvastatin Calcium (Crestor -) 10 mg PO HS [facility] Last Admin: 11/07/18 21:59 Dose: 10 mg Senna (Senna -) 2 tab PO HS PRN PRN Reason: CONSTIPATION Simethicone (Mylicon -) 80 mg PO Q4H PRN PRN Reason: GAS Last Admin: 11/06/18 16:56 Dose: 80 mg - Objective Vital Signs Period Temp Pulse Resp BP Sys/Sahnkar Pulse Ox Last 24 Hr 97.9 F-98.4 F 74-107 16-20 99-148/52-94 100 Constitutional: Yes: No Distress, Calm Eyes: No: Sclera Icterus HENT: No: Nasal Congestion Cardiovascular: Yes: Regular Rate and Rhythm, S1, S2, Other (PMI non diplaced). No: JVD (in chair), Gallop, Murmur Respiratory: Yes: CTA Bilaterally. No: Accessory Muscle Use, Rales, Wheezes Gastrointestinal: Yes: Normal Bowel Sounds, Soft. No: Tenderness Musculoskeletal: Yes: Other (No kyphosis) Extremities: No: Cold Edema: Yes (3+ pretib) Integumentary: No: Jaundice Neurological: Yes: Alert, Oriented (x3) Psychiatric: No: Agitated Assessment/Plan ECG's 11/04, 11/05: tachy (AT), nonsp ST-Ts lateral and inferior--no change vs prior CXR 11/06: improved congestive changes vs prior, mild congestion likely present. L effusion persists Echo 07/2018 inf wall akinetic, other phillip severely hypokinetic, LV mildly dilated, RV function moderately reduced, LV function severely reduced, moderate MR, EF 30% Echo 12/2016: TDS. nl LV size/EF. mild LVH. grade 2 d.d., hi E/e' = high LAP. nl RV. mild LAE. mild-mod MR, mod TR. mild pHTN (46 mmHg) [facility] 2014: unchanged 70-80% distal RCA lesion. patent mLAD stent. 80-90% pLCX-- [facility]EN Tele: sinus, brief PAT a/p: 63 yo female hx cad/pci, hyperthyroidism with associated tachycardia, palpitations, unintentional wt loss, acute on chronic labile HTN with mult med intolerances, mildly decompensated diast chf, and new LE edema (out of proportion to the degree of CHF), p/w le edema,sob. 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 Chen d/w'd dr olsen. pt diureses briskly to iv lasix (100mg) here. ? will be able to maintain volume status with po torsemide +/- metolazone, and will not need maintenance HD. plan is to optimize her volume status as much as possible in next couple weeks (which will also help cardiac output and minimize gut edema/enhance bioavailability of po diuretics), then see if she can maintain without continued HD/UF (hi risk of permacath infection given chronic uncontrolled DM). - 11/01-present: tolerating HD/UF well, effective volume removal, wt down. cont torsemide 100 po daily. - 11/07: developed incr abd girth/bloating yesterday. only small ascited on CT abdomen 11/04. CXR improving congestion. wt has come way down (today's likely erroneous). if this represents progressive RV failure, at the moment the only appropriate treatment is continued volume optimization with lasix and HD (would defer risks of tachy-arrhythmia with milrinone unless volume is refractory and symptomatic). resume lasix 100 iv (qd for now) - 11/08 improvement in abdominal swelling, weight with lasix 100 mg IV. continue - bb dose limited by new hypotension/dizziness--has changed metoprolol succ to coreg CR and insists this causes her less dizziness. cont same coreg - holding hydral, NTG patch (hypotension) - not on SHAN/ARB in setting of ckd obstructive uropathy, OBI on CKD: -probably new baseline creatinine in 3-3.3 range based on recent labs trends -recently bumped to 3.5 as outpt--? sec to obstruction -s/p nephrostomy tubes 10/19, creat rising sec to cardiorenal syndrome -now on HD, s/p avf -hematuria/dysuria, plan for outpt stent per hyperthyroidism, sinus tach, PAT (note: no afib/flutter present thus far): - intolerant of methimazole (elevated LFTs) - s/p radio-I ablation - high burden of ATach with LV systolic dysfunction, now with new afib - low dose PTU resumed, patient tolerating (pt self-discontinued it at home for nausea) with improvement in heart rate - metopr high dose appeared to control PAT burden better than carvedilol, however caused hypotension/dizzy and pt changed back. she declines changing back to metoprolol. (previously intolerant of atenolol, propranolol). - no amiodarone in light of uncontrolled hyperthyroidism. no digoxin in light of very low GFR. no CCB in light of systolic dysfxn and previous intolerance ( edema) - given low bp trend and weakness/dizziness, coreg CR was decreased to 40 daily dosing (pt with longstanding HTN baseline bp 140s-160s, often higher--may not tolerate bp 100-110) - 11/01: TSH normalized - will consider ablation once renal fxn is stabilized, though doubt she is a candidate in current condition (tenuous HF status, uncontrolled hyperthyroidism) - given no fib present, and no definitive atr flutter thus far, will defer AC for now. LE swelling: - started at time of hyperthyroidism, and remains out of proportion to HF findings - responded well to wraps - diuresis, HD as above Elevated troponin - baseline trop 0.2-0.5 sec to chronic HF (+/- CKD) labile HTN: -mult med intolerances in past -bp stable currently CAD, prior NSTEMI/PCI: -aspirin and effient restarted, continue -cont home statin (max tolerated dose rosuva 20 with drug holidays), zetia -bb as bp tolerates
--- NOTE | 2018-11-08 13:08 | PN ---
Progress Note (short form) - Note Progress Note: Renal follow up for OBI/CKD Pt seen and examined at the bedside s/p nephrostomy exchange this am no acute complaints no sob, cp, abd pain, N/V/D Vital Signs Temperature 98.4 F 11/08/18 06:00 Pulse Rate 106 H 11/08/18 11:15 Respiratory Rate 18 11/08/18 11:15 Blood Pressure 150/86 11/08/18 11:15 O2 Sat by Pulse Oximetry (%) 98 11/08/18 11:15 Intake & Output 11/05/18 11/06/18 11/07/18 11/08/18 23:59 23:59 23:59 23:59 Intake Total 340 550 560 150 Output Total 130 200 160 100 Balance 210 350 400 50 Weight 96.162 kg 94.801 kg 101.151 kg 99.065 kg NAD awake and alert ++ edema in LE CBC, BMP 11/08/18 06:00 11/08/18 06:00 Current Medications Acetaminophen (Tylenol -) 500 mg PO Q6H PRN PRN Reason: PAIN 1-3 Last Admin: 11/05/18 00:22 Dose: 500 mg Aspirin (Asa -) 81 mg PO DAILY [facility] Last Admin: 11/08/18 12:07 Dose: 81 mg Carvedilol (Coreg Cr -) 40 mg PO DAILY [facility] Last Admin: 11/08/18 12:03 Dose: Not Given Cholecalciferol (Vitamin D3 -) 5,000 unit PO DAILY [facility] Last Admin: 11/08/18 12:05 Dose: 5,000 unit Clonazepam (Klonopin -) 0.5 mg PO Q6HPO [facility] Last Admin: 11/08/18 12:34 Dose: 0.5 mg Docusate Sodium (Colace -) 100 mg PO DAILY [facility] Last Admin: 11/08/18 12:06 Dose: 100 mg Ezetimibe (Zetia -) 10 mg PO DAILY [facility] Last Admin: 11/08/18 12:08 Dose: 10 mg Furosemide (Lasix Injection -) 100 mg IVPUSH DAILY [facility] Last Admin: 11/08/18 12:09 Dose: 100 mg Glycerin (Glycerin Suppository Adult -) 1 each RC DAILY PRN PRN Reason: CONSTIPATION Heparin Sodium (Porcine) (Heparin -) 5,000 unit SQ TID [facility] Last Admin: 11/08/18 06:21 Dose: Not Given Insulin Aspart (Novolog Vial Sliding Scale -) 1 vial SQ [facility]; Protocol Last Admin: 11/08/18 12:23 Dose: Not Given Insulin Detemir (Levemir Vial) 5 units SQ HS [facility] Last Admin: 11/07/18 22:01 Dose: 5 units Latanoprost (Xalatan 0.005% Eye Drops -) 1 drop OU HS [facility] Last Admin: 11/07/18 22:02 Dose: 1 drop (Fluticasone/Vilanterol [Breo Ellipta 100-25 Mcg] Patient's Own Medication (Non - Formulary) 1 each IH DAILY [facility] Last Admin: 11/08/18 12:01 Dose: 1 each Ondansetron HCl (Zofran Injection) 4 mg IVPUSH Q6H PRN PRN Reason: NAUSEA AND/OR VOMITING Polyethylene Glycol (Miralax (For Daily Use) -) 17 gm PO DAILY [facility] Last Admin: 11/08/18 12:04 Dose: Not Given Prasugrel (Effient -) 10 mg PO DAILY [facility] Last Admin: 11/08/18 12:07 Dose: 10 mg Propylthiouracil (Ptu -) 50 mg PO DAILY [facility] Last Admin: 11/08/18 12:06 Dose: 50 mg Rosuvastatin Calcium (Crestor -) 10 mg PO HS [facility] Last Admin: 11/07/18 21:59 Dose: 10 mg Senna (Senna -) 2 tab PO HS PRN PRN Reason: CONSTIPATION Simethicone (Mylicon -) 80 mg PO Q4H PRN PRN Reason: GAS Last Admin: 11/06/18 16:56 Dose: 80 mg 63 yo F PMx DM, HTN, HLD, OR in 2012 s/p stents, CABG, Afib, asthma, hyperthyroidism s/p STEINBERG, CKD, anemia with mult med intolerances, with CP and palpitations #OBI on CKD with unilateral obstruction s/p nephrostomy tube now requiring dialysis (uremic symptoms + fluid overload) #Acute on chronic CHF (improving with UF and diuretics) #Hypertension #Anemia #Hyperthyroidism (TSH remains very low, on PTU) s/p nephrostomy exchange this am s/p dialysis yesterday, no acute need for [employer] today Convert diuretics to Torsemide 100mg Daily when ready for discharge family is requesting help at home when going to dialysis Goyo Smith DO
--- NOTE | 2018-11-08 13:24 | PN ---
Physical Exam: SUBJECTIVE: Patient seen and examined at bedside. no acute events overnight patient states her breathing is better and she has less bloating. she is getting her nephrosotmy tube changed today- she denies any CP/SOB/N/V fevers or chills OBJECTIVE: Vital Signs Period Temp Pulse Resp BP Sys/Shankar Pulse Ox Last 24 Hr 97.9 F-98.4 F 74-110 16-20 99-152/52-94 97-100 GENERAL: The patient is awake, alert, and fully oriented, in no acute distress. EYES: no scleral icterus NECK: mild JVD LUNGS: CTA b/L no rales, rhonchi or wheezing HEART: Regular rate and rhythm, S1, S2 without murmur, rub or gallop. ABDOMEN: Soft,distended +BS nontender. EXTREMITIES: 2+ pulses, warm, well-perfused, 3+ edema. . PSYCH: Normal mood, normal affect. SKIN: Warm, dry, normal turgor, no rashes or lesions noted Laboratory Results - last 24 hr 11/07/18 11/07/18 11/08/18 17:03 21:42 05:12 WBC RBC Hgb Hct MCV MCH MCHC RDW Plt Count MPV Sodium Potassium Chloride Carbon Dioxide Anion Gap BUN Creatinine Creat Clearance w eGFR POC Glucometer 158 215 138 Random Glucose Calcium Phosphorus Magnesium 11/08/18 11/08/18 11/08/18 06:00 06:00 11:59 WBC 4.4 RBC 3.68 Hgb 8.7 L Hct 28.2 L MCV 76.6 L MCH 23.7 L MCHC 30.9 L RDW 16.5 H Plt Count 146 MPV 8.5 Sodium 136 Potassium 4.4 Chloride 99 Carbon Dioxide 29 Anion Gap 8 BUN 29 H Creatinine 3.0 H Creat Clearance w eGFR 15.76 POC Glucometer 121 Random Glucose 137 H Calcium 8.4 L Phosphorus 2.4 L Magnesium 1.8 Active Medications Generic Name Dose Route Start Last Admin Trade Name Freq PRN Reason Stop Dose Admin Acetaminophen 500 mg 11/02/18 16:40 11/05/18 00:22 Tylenol - PO 500 mg Q6H PRN Administration PAIN 1-3 Aspirin 81 mg 11/03/18 10:00 11/08/18 12:07 Asa - PO 81 mg DAILY [facility] Administration Carvedilol 40 mg 11/03/18 10:00 11/08/18 12:03 Coreg Cr - PO Not Given DAILY [facility] Cholecalciferol 5,000 unit 11/03/18 10:00 11/08/18 12:05 Vitamin D3 - PO 5,000 unit DAILY [facility] Administration Clonazepam 0.5 mg 11/03/18 05:30 11/08/18 12:34 Klonopin - PO 0.5 mg Q6HPO [facility] Administration Docusate Sodium 100 mg 11/03/18 10:00 11/08/18 12:06 Colace - PO 100 mg DAILY [facility] Administration Ezetimibe 10 mg 11/03/18 10:00 11/08/18 12:08 Zetia - PO 10 mg DAILY [facility] Administration Furosemide 100 mg 11/07/18 11:15 11/08/18 12:09 Lasix Injection - IVPUSH 100 mg DAILY [facility] Administration Glycerin 1 each 11/02/18 16:40 Glycerin Suppository Adult - RC DAILY PRN CONSTIPATION Heparin Sodium (Porcine) 5,000 unit 11/02/18 22:00 11/08/18 13:14 Heparin - SQ Not Given TID [facility] Insulin Aspart 1 vial 11/02/18 22:00 11/08/18 12:23 Novolog Vial Sliding Scale - SQ Not Given ACHS [facility] Protocol Insulin Detemir 5 units 11/02/18 22:00 11/07/18 22:01 Levemir Vial SQ 5 units HS [facility] Administration Latanoprost 1 drop 11/05/18 22:00 11/07/18 22:02 Xalatan 0.005% Eye Drops - OU 1 drop HS [facility] Administration (Fluticasone/ 1 each 11/03/18 10:00 11/08/18 12:01 Vilanterol [Breo IH 1 each Ellipta 100-25 Mcg] DAILY [facility] Administration Patient's Own Medication (Non- Formulary) Ondansetron HCl 4 mg 11/02/18 16:40 Zofran Injection IVPUSH Q6H PRN NAUSEA AND/OR VOMITING Polyethylene Glycol 17 gm 11/03/18 10:00 11/08/18 12:04 Miralax (For Daily Use) - PO Not Given DAILY [facility] Prasugrel 10 mg 11/05/18 10:00 11/08/18 12:07 Effient - PO 10 mg DAILY [facility] Administration Propylthiouracil 50 mg 11/07/18 10:00 11/08/18 12:06 Ptu - PO 50 mg DAILY [facility] Administration Rosuvastatin Calcium 10 mg 11/02/18 22:00 11/07/18 21:59 Crestor - PO 10 mg HS [facility] Administration Senna 2 tab 11/02/18 22:00 Senna - PO HS PRN CONSTIPATION Simethicone 80 mg 11/06/18 10:44 11/06/18 16:56 Mylicon - PO 80 mg Q4H PRN Administration GAS ASSESSMENT/PLAN: Patient is a 63 year old female with history of CHF, [place] s/p stents, CAD, DMII, hyperthyroidism, CKD stage V, HTN, HLD, presents with complaint of chest tightness, palpitations. Afib: -patient started on heparin drip here -Coreg 40 daily; which was decreased from 40 BID -continue tele monitoring; patient still having episodes of tachycardia; but less frequent since the increase in PTU dose Hyperthyroidism: -latest TSH was 1.37; normalized -on PTU [address] Gonsales- when TSH >5 no more PTU needed -c/w beta isrrael therapy Caliectasis: -patient had right nephrostomy tube placed -monitor output -Dr. Menendez saw pt a few days ago should get anterograde stent as an outpatient -patients nephrostomy urine cx are growing staph simulans; patient got nephrostomy tube changed today; needs to get it changed every 3 months CKD stage V: -baseline Cr 3.2; currently 3.0 this morning- -patient had dialysis this AM -will go on a // sched as outpatient CHF; -monitor daily weights -I's and O's -givne her increased distention, dr Chen put patient bakc on 100 IV lasix daily -will restart home dose of torsemide upon d/c tomorrow DM -decreased levemir dosing from 20 units HS to 5 units HS as patients renal function is worsening and shes is becoming slightly more hypoglycemic -ISS ACHS -BGMS ACHS CAD -holding aspirin and prasugrel HTN -c/w coreg 40 daily UTI -cx from nephrostomy tube growing staph simulans -however clean catch U/A is negative -tube changed today - F/E/N -no fluids -replete electrolytes accordingly -renal diet PPX:Heaprin Sq Problem List - Problems (1) A-fib Code(s): I48.91 - UNSPECIFIED ATRIAL FIBRILLATION (2) Hyperthyroidism Code(s): E05.90 - THYROTOXICOSIS, UNSP WITHOUT THYROTOXIC CRISIS OR STORM (3) Acute pulmonary edema with congestive heart failure Code(s): I50.1 - LEFT VENTRICULAR FAILURE, UNSPECIFIED Visit type - Emergency Visit Emergency Visit: Yes ED Registration Date: 10/16/18 Care time: The patient presented to the Emergency Department on the above date and was hospitalized for further evaluation of their emergent condition. - New Patient This patient is new to me today: No - Critical Care Critical Care patient: No
--- NOTE | 2018-11-08 16:08 | PN ---
Teaching Attending Note Name of Resident: Charmaine Banda ATTENDING PHYSICIAN STATEMENT I saw and evaluated the patient. I reviewed the resident's note and discussed the case with the resident. I agree with the resident's findings and plan as documented. SUBJECTIVE:asymptomatic. denies CP, SOB, fever, chills, N/V/C/D OBJECTIVE: Last Vital Signs Temp Pulse Resp BP Pulse Ox 98.7 F 86 16 106/57 L 98 11/08/18 14:00 11/08/18 14:00 11/08/18 14:00 11/08/18 14:00 11/08/18 11:15 Intake & Output 11/05/18 11/06/18 11/07/18 11/08/18 23:59 23:59 23:59 23:59 Intake Total 340 550 560 520 Output Total 130 200 160 100 Balance 210 350 400 420 Weight 212 lb 209 lb 223 lb 218 lb 6.4 oz General NAD Lungs cta B/L no wheezing/rales/rhonchi ASSESSMENT AND PLAN: 63 yo F PMx DM, HTN, HLD, OR in 2012 s/p stents, CABG, Afib, asthma, hyperthyroidism s/p STEINBERG, CKD, anemia with mult med intolerances, with CP and palpitations 1. Acute on Chronic systolic CHF exacerbation- dry weight 205. s/p HD initiation. was c/o of increased abdominal girth yesterday which has since improved. lasix was switched to IV while hospitalized. can likely switch to po in AM. daily weights, monitor electrolytes. cardio on board. 2. Afib with RVR- multiple intolerances to medications. now in NSR. on max doses of coreg at this time. off anticoagluation as no longer in Afib and likely induced from hyperthyroid state. cont cardiac monitoring. limited on alternative treatment options. cardio on board 3. Thyrotoxicosis-s/p STEINBERG in the past. PTU reduced to 50mg daily. will need to f /u with Endo as outpatient for possible stopping medications 4. Obstructive uropathy due to nephrolithasis- s/p R nephrostomy tube on 10/19. tube was dislodged. going for repositioning today. will need outpatient follow up. 5. acute on CKD-prerenal and obstructive uropathy. received HD 3x/week athis time via permacath. AV fistula created this hospital stay. OUtpatient HD has been initiated. vasc surg and Nephro on board. 6. Tropinemia- due to demand. flat trend. had recent PCI and no repeat CP since then. DAPT re-started. 7. DM- insulin requirements improving as renal function improving. on levemir 5 units HS. will cont for now and titrate as needed.cont BGM, iSS. 8. DVT ppx- hep sq 9. d/c planning in AM. pt does not want SNF and no VNS coverage through insurance. Private C[employer] initiated and plan to start tomorrow
[2018-11-08] MEDS ORDERED: PT OWN MED DRAWER 7, Y5N ONE ×3 (18:24→22:23)
[2018-11-08] MEDS: LATANOPROST 0.005% OPHTH SOLN 2.5ML BOTTLE OU SCH (21:41)
[2018-11-08] MEDS: INSULIN (LEVEMIR) 100 UNITS/ML UNITS SQ SCH (21:41)
[2018-11-08] MEDS: ROSUVASTATIN CA 10 MG TABLET (FP) PO SCH (21:42)
[2018-11-09] MEDS: clonazePAM 0.5 MG TABLET PO SCH ×2 (00:10→06:22)
[2018-11-09] MEDS: HEPARIN NA (PORCINE) 5,000 UNITS/ML 1ML VIAL SQ SCH (06:23)
[2018-11-09] MEDS: INSULIN SLIDING SCALE (NOVOLOG) 1 VIAL SQ SCH ×2 (06:24→11:30)
[2018-11-09 06:46] LABS: ANION GAP 8 MMOL/L (8-16); BLOOD UREA NITROGEN 33 mg/dL (7-18); CALCIUM 8.3 mg/dL (8.5-10.1); CHLORIDE 97 mmol/L (98-107); CO2 30 mmol/L (21-32); CREATININE 3.4 mg/dL (0.55-1.3); GLUCOSE,RANDOM 184 mg/dL (74-106); POTASSIUM 4.4 mmol/L (3.5-5.1); SODIUM 135 mmol/L (136-145)
[2018-11-09] MEDS ORDERED: INSULIN SLIDING SCALE (NOVOLOG) 1 VIAL SQ ONE (07:05)
[2018-11-09] MEDS ORDERED: INSULIN (LEVEMIR) 100 UNITS/ML UNITS SQ ONE (07:05)
--- NOTE | 2018-11-09 09:23 | PN ---
Progress Note (short form) - Note Progress Note: Chief Complaint: sob History of Present Illness: no chest pain, palps, dyspnea. edema is stable no cigs Current Medications Acetaminophen (Tylenol -) 500 mg PO Q6H PRN PRN Reason: PAIN 1-3 Last Admin: 11/05/18 00:22 Dose: 500 mg Aspirin (Asa -) 81 mg PO DAILY [facility] Last Admin: 11/08/18 12:07 Dose: 81 mg Carvedilol (Coreg Cr -) 40 mg PO DAILY [facility] Last Admin: 11/08/18 12:03 Dose: Not Given Cholecalciferol (Vitamin D3 -) 5,000 unit PO DAILY [facility] Last Admin: 11/08/18 12:05 Dose: 5,000 unit Clonazepam (Klonopin -) 0.5 mg PO Q6HPO [facility] Last Admin: 11/09/18 06:22 Dose: 0.5 mg Docusate Sodium (Colace -) 100 mg PO DAILY [facility] Last Admin: 11/08/18 12:06 Dose: 100 mg Ezetimibe (Zetia -) 10 mg PO DAILY [facility] Last Admin: 11/08/18 12:08 Dose: 10 mg Furosemide (Lasix Injection -) 100 mg IVPUSH DAILY [facility] Last Admin: 11/08/18 12:09 Dose: 100 mg Glycerin (Glycerin Suppository Adult -) 1 each RC DAILY PRN PRN Reason: CONSTIPATION Heparin Sodium (Porcine) (Heparin -) 5,000 unit SQ TID [facility] Last Admin: 11/09/18 06:23 Dose: Not Given Insulin Aspart (Novolog Vial Sliding Scale -) 1 vial SQ [facility]; Protocol Last Admin: 11/09/18 06:24 Dose: 2 units Insulin Detemir (Levemir Vial) 5 units SQ [facility] Last Admin: 11/08/18 21:41 Dose: Not Given Latanoprost (Xalatan 0.005% Eye Drops -) 1 drop OU HS [facility] Last Admin: 11/08/18 21:41 Dose: 1 drop (Fluticasone/Vilanterol [Breo Ellipta 100-25 Mcg] Patient's Own Medication (Non - Formulary) 1 each IH DAILY [facility] Last Admin: 11/08/18 12:01 Dose: 1 each Ondansetron HCl (Zofran Injection) 4 mg IVPUSH Q6H PRN PRN Reason: NAUSEA AND/OR VOMITING Polyethylene Glycol (Miralax (For Daily Use) -) 17 gm PO DAILY [facility] Last Admin: 11/08/18 12:04 Dose: Not Given Prasugrel (Effient -) 10 mg PO DAILY [facility] Last Admin: 11/08/18 12:07 Dose: 10 mg Propylthiouracil (Ptu -) 50 mg PO DAILY [facility] Last Admin: 11/08/18 12:06 Dose: 50 mg Rosuvastatin Calcium (Crestor -) 10 mg PO HS [facility] Last Admin: 11/08/18 21:42 Dose: 10 mg Senna (Senna -) 2 tab PO HS PRN PRN Reason: CONSTIPATION Simethicone (Mylicon -) 80 mg PO Q4H PRN PRN Reason: GAS Last Admin: 11/06/18 16:56 Dose: 80 mg - Objective Vital Signs Period Temp Pulse Resp BP Sys/Shankar Pulse Ox Last 24 Hr 97.6 F-98.7 F 81-110 16-18 104-152/51-94 97-98 Constitutional: Yes: No Distress, Calm Eyes: No: Sclera Icterus HENT: No: Nasal Congestion Cardiovascular: Yes: Regular Rate and Rhythm, S1, S2, Other (PMI non diplaced). No: JVD (in chair), Gallop, Murmur Respiratory: Yes: CTA Bilaterally. No: Accessory Muscle Use, Rales, Wheezes Gastrointestinal: Yes: Normal Bowel Sounds, Soft. No: Tenderness Musculoskeletal: Yes: Other (No kyphosis) Extremities: No: Cold Edema: Yes (3+ pretib) Integumentary: No: Jaundice Neurological: Yes: Alert, Oriented (x3) Psychiatric: No: Agitated Assessment/Plan ECG's 11/04, 11/05: tachy (AT), nonsp ST-Ts lateral and inferior--no change vs prior CXR 11/06: improved congestive changes vs prior, mild congestion likely present. L effusion persists Echo 07/2018 inf wall akinetic, other phillip severely hypokinetic, LV mildly dilated, RV function moderately reduced, LV function severely reduced, moderate MR, EF 30% Echo 12/2016: TDS. nl LV size/EF. mild LVH. grade 2 d.d., hi E/e' = high LAP. nl RV. mild LAE. mild-mod MR, mod TR. mild pHTN (46 mmHg) [facility] 2014: unchanged 70-80% distal RCA lesion. patent mLAD stent. 80-90% pLCX-- [facility] Tele: sinus, brief PAT a/p: 63 yo female hx cad/pci, hyperthyroidism with associated tachycardia, palpitations, unintentional wt loss, acute on chronic labile HTN with mult med intolerances, mildly decompensated diast chf, and new LE edema (out of proportion to the degree of CHF), p/w le edema,sob. 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 Chen d/w'd dr olsen. pt diureses briskly to iv lasix (100mg) here. ? will be able to maintain volume status with po torsemide +/- metolazone, and will not need maintenance HD. plan is to optimize her volume status as much as possible in next couple weeks (which will also help cardiac output and minimize gut edema/enhance bioavailability of po diuretics), then see if she can maintain without continued HD/UF (hi risk of permacath infection given chronic uncontrolled DM). - 11/01-present: tolerating HD/UF well, effective volume removal, wt down. cont torsemide 100 po daily. - 11/07: developed incr abd girth/bloating yesterday. only small ascited on CT abdomen 11/04. CXR improving congestion. wt has come way down (today's likely erroneous). if this represents progressive RV failure, at the moment the only appropriate treatment is continued volume optimization with lasix and HD (would defer risks of tachy-arrhythmia with milrinone unless volume is refractory and symptomatic). resume lasix 100 iv (qd for now) - 11/08 improvement in abdominal swelling, weight with lasix 100 mg IV, continued - 11/09 transition to torsemide 100 mg daily, planning for discharge - bb dose limited by new hypotension/dizziness--has changed metoprolol succ to coreg CR and insists this causes her less dizziness. cont same coreg - holding hydral, NTG patch (hypotension) - not on SHAN/ARB in setting of ckd obstructive uropathy, OBI on CKD: -probably new baseline creatinine in 3-3.3 range based on recent labs trends -recently bumped to 3.5 as outpt--? sec to obstruction -s/p nephrostomy tubes 10/19, creat rising sec to cardiorenal syndrome -now on HD, s/p avf -hematuria/dysuria, plan for outpt stent per hyperthyroidism, sinus tach, PAT (note: no afib/flutter present thus far): - intolerant of methimazole (elevated LFTs) - s/p radio-I ablation - high burden of ATach with LV systolic dysfunction, now with new afib - low dose PTU resumed, patient tolerating (pt self-discontinued it at home for nausea) with improvement in heart rate - metopr high dose appeared to control PAT burden better than carvedilol, however caused hypotension/dizzy and pt changed back. she declines changing back to metoprolol. (previously intolerant of atenolol, propranolol). - no amiodarone in light of uncontrolled hyperthyroidism. no digoxin in light of very low GFR. no CCB in light of systolic dysfxn and previous intolerance ( edema) - given low bp trend and weakness/dizziness, coreg CR was decreased to 40 daily dosing (pt with longstanding HTN baseline bp 140s-160s, often higher--may not tolerate bp 100-110) - 11/01: TSH normalized - will consider ablation once renal fxn is stabilized, though doubt she is a candidate in current condition (tenuous HF status, uncontrolled hyperthyroidism) - given no fib present, and no definitive atr flutter thus far, will defer AC for now. LE swelling: - started at time of hyperthyroidism, and remains out of proportion to HF findings - responded well to wraps - diuresis, HD as above Elevated troponin - baseline trop 0.2-0.5 sec to chronic HF (+/- CKD) labile HTN: -mult med intolerances in past -bp stable currently CAD, prior NSTEMI/PCI: -aspirin and effient restarted, continue -cont home statin (max tolerated dose rosuva 20 with drug holidays), zetia -bb as bp tolerates
[2018-11-09] MEDS: CHOLECALCIFEROL (VITAMIN D3) 1,000 UNIT TABLET (FP) PO SCH (09:39)
[2018-11-09] MEDS: ASPIRIN 81 MG CHEWABLE TABLETS PO SCH (09:39)
[2018-11-09] MEDS: DOCUSATE SODIUM 100 MG CAPSULE (FP) PO SCH (09:39)
[2018-11-09] MEDS: PROPYLTHIOURACIL 50 MG TABLET (UD) PO SCH (09:39)
[2018-11-09] MEDS: CARVEDILOL PHOSPHATE CR 40 MG CAPSULE (FP) PO SCH (09:40)
[2018-11-09] MEDS: PRASUGREL HCL 10 MG TAB PO SCH (09:41)
[2018-11-09] MEDS: EZETIMIBE 10 MG TABLET (FP) PO SCH (09:42)
[2018-11-09] MEDS: [UNRECOGNIZED DRUG - OTHER] IH SCH (09:42)
[2018-11-09] MEDS: POLYETHYLENE GLYCOL 3350 119 GM BTL PO SCH (09:42)
[2018-11-09] MEDS ORDERED: TORSEMIDE 100 MG TABLET PO SCH (10:00)
--- NOTE | 2018-11-09 11:54 | PN ---
Progress Note (short form) - Note Progress Note: Renal follow up for OBI/CKD Pt seen and examined at the bedside awake and alert getting ready for discharge leg swelling remains Vital Signs Temperature 97.6 F 11/09/18 06:00 Pulse Rate 105 H 11/09/18 06:00 Respiratory Rate 18 11/09/18 09:00 Blood Pressure 128/75 11/09/18 06:00 O2 Sat by Pulse Oximetry (%) 98 11/09/18 09:00 Intake & Output 11/06/18 11/07/18 11/08/18 11/09/18 23:59 23:59 23:59 23:59 Intake Total 008 651 7562 150 Output Total 200 160 150 100 Balance 350 400 920 50 Weight 94.801 kg 101.151 kg 99.065 kg 100.244 kg NAD ++edema in LE CBC, BMP 11/08/18 06:00 11/09/18 06:00 Current Medications Acetaminophen (Tylenol -) 500 mg PO Q6H PRN PRN Reason: PAIN 1-3 Last Admin: 11/05/18 00:22 Dose: 500 mg Aspirin (Asa -) 81 mg PO DAILY [facility] Last Admin: 11/09/18 09:39 Dose: 81 mg Carvedilol (Coreg Cr -) 40 mg PO DAILY [facility] Last Admin: 11/09/18 09:40 Dose: Not Given Cholecalciferol (Vitamin D3 -) 5,000 unit PO DAILY [facility] Last Admin: 11/09/18 09:39 Dose: 5,000 unit Clonazepam (Klonopin -) 0.5 mg PO Q6HPO [facility] Last Admin: 11/09/18 06:22 Dose: 0.5 mg Docusate Sodium (Colace -) 100 mg PO DAILY [facility] Last Admin: 11/09/18 09:39 Dose: 100 mg Ezetimibe (Zetia -) 10 mg PO DAILY [facility] Last Admin: 11/09/18 09:42 Dose: 10 mg Glycerin (Glycerin Suppository Adult -) 1 each RC DAILY PRN PRN Reason: CONSTIPATION Heparin Sodium (Porcine) (Heparin -) 5,000 unit SQ TID [facility] Last Admin: 11/09/18 06:23 Dose: Not Given Insulin Aspart (Novolog Vial Sliding Scale -) 1 vial SQ [facility]; Protocol Last Admin: 11/09/18 06:24 Dose: 2 units Insulin Detemir (Levemir Vial) 5 units SQ HS [facility] Last Admin: 11/08/18 21:41 Dose: Not Given Latanoprost (Xalatan 0.005% Eye Drops -) 1 drop OU HS [facility] Last Admin: 11/08/18 21:41 Dose: 1 drop (Fluticasone/Vilanterol [Breo Ellipta 100-25 Mcg] Patient's Own Medication (Non - Formulary) 1 each IH DAILY [facility] Last Admin: 11/09/18 09:42 Dose: 1 each Ondansetron HCl (Zofran Injection) 4 mg IVPUSH Q6H PRN PRN Reason: NAUSEA AND/OR VOMITING Polyethylene Glycol (Miralax (For Daily Use) -) 17 gm PO DAILY [facility] Last Admin: 11/09/18 09:42 Dose: Not Given Prasugrel (Effient -) 10 mg PO DAILY [facility] Last Admin: 11/09/18 09:41 Dose: 10 mg Propylthiouracil (Ptu -) 50 mg PO DAILY [facility] Last Admin: 11/09/18 09:39 Dose: 50 mg Rosuvastatin Calcium (Crestor -) 10 mg PO HS [facility] Last Admin: 11/08/18 21:42 Dose: 10 mg Senna (Senna -) 2 tab PO HS PRN PRN Reason: CONSTIPATION Simethicone (Mylicon -) 80 mg PO Q4H PRN PRN Reason: GAS Last Admin: 11/06/18 16:56 Dose: 80 mg Torsemide (Demadex -) 100 mg PO DAILY [facility] Last Admin: 11/09/18 11:18 Dose: 100 mg 63 yo F PMx DM, HTN, HLD, AL in 2012 s/p stents, CABG, Afib, asthma, hyperthyroidism s/p STEINBERG, CKD, anemia with mult med intolerances, with CP and palpitations #OBI on CKD with unilateral obstruction s/p nephrostomy tube now requiring dialysis (uremic symptoms + fluid overload) #Acute on chronic CHF (improving with UF and diuretics) #Hypertension #Anemia #Hyperthyroidism (TSH remains very low, on PTU) Renal function appears unchanged as Cr still rising after dialysis no acute indication for TOMOGRAPHIC TECH today, next dialysis to be tomorrow as an outpatient will reaccess renal function in 1-2 weeks with 24 urine Cr Clearance Continue torsemide 100mg Daily Maintain low salt diet with 1.2L fluid restriction Urology follow up an outpatient will need stent placement as an outpatient Goyo Smith DO
[2018-11-09 12:42] VITALS: BP 138/82; PULSE 83; TEMP 97.4
--- NOTE | 2018-11-09 15:24 | DS ---
Physical Exam: SUBJECTIVE: Patient seen and examined OBJECTIVE: Vital Signs Period Temp Pulse Resp BP Sys/Shankar Pulse Ox Last 24 Hr 97.4 F-98.2 F 81-105 18-18 104-138/51-82 98-98 PHYSICAL EXAM GENERAL: The patient is awake, alert, and fully oriented, in no acute distress. HEAD: Normal with no signs of trauma. EYES: PERRL, extraocular movements intact, sclera anicteric, conjunctiva clear. ENT: Ears normal, nares patent, oropharynx clear without exudates, moist mucous membranes. NECK: Trachea midline, full range of motion, supple. LUNGS: Breath sounds equal, clear to auscultation bilaterally, no wheezes, no crackles, no accessory muscle use. HEART: Regular rate and rhythm, S1, S2 without murmur, rub or gallop. ABDOMEN: Soft, nontender, nondistended, normoactive bowel sounds, no guarding, no rebound, no hepatosplenomegaly, no masses. EXTREMITIES: 2+ pulses, warm, well-perfused, no edema. NEUROLOGICAL: Cranial nerves II through XII grossly intact. Normal speech, gait not observed. PSYCH: Normal mood, normal affect. SKIN: Warm, dry, normal turgor, no rashes or lesions noted. LABS Laboratory Results - last 24 hr 11/08/18 11/08/18 11/09/18 17:31 21:40 06:00 Sodium 135 L Potassium 4.4 Chloride 97 L Carbon Dioxide 30 Anion Gap 8 BUN 33 H Creatinine 3.4 H Creat Clearance w eGFR 13.64 POC Glucometer 239 162 Random Glucose 184 H Calcium 8.3 L 11/09/18 11/09/18 06:16 10:56 Sodium Potassium Chloride Carbon Dioxide Anion Gap BUN Creatinine Creat Clearance w eGFR POC Glucometer 177 208 Random Glucose Calcium Microbiology 11/08/18 11:00 Nephrostomy Tube Drainage Gram Stain - Final 11/08/18 11:00 Nephrostomy Tube Drainage Body Fluid Culture - Preliminary NO AEROBIC GROWTH, 24 HRS 11/04/18 11:30 Urine - Urostomy Bag Urine Culture - Final Staphylococcus Simulans 10/19/18 11:24 Urine - Urine Nephrostomy Tube Right Urine Culture - Final NO GROWTH OBTAINED 10/16/18 16:57 Urine - Urine Clean Catch Urine Culture - Final NO GROWTH OBTAINED HOSPITAL COURSE: Date of Admission:10/16/18 63 y/o female with PMH of hyperthyroidism, CHF, HTN, [place] s/p CABG, HLD, CKD, asthma presented to the ED with worsening lower extremity edema,/abdominal distention and palpitations, needing medical optimization before nephrostomy tube placement. Patient initially came in with a TSH of 0.01- was noncompliant with her PTU medication and had recently had an ablation. Dr Gonsales, her slate handler started her on PTU 100 BID on admission. In regards to her LE edema and distention- her Cr on admission was 3.5 which was not near her baseline- she was originally started on PO torsemide then transitioned to IV lasix when there was no change in her fluid status with agreement by both Dr Chen and Dr olsen. She had the nephrosotomy tube placed which subsequently did not reduce her Cr enough so patient needed to be started on dialysis here in the hospital with subsequent AV fistula placement with outpatient HD set up on a t/th/s schedule. Her Cr upon discharge was 3.0. In regards to patients hyperthyroidsm she was kept on PUT 100 BID for about a week, then TSH started to increase, the PTU dosing was decreased to 50 BID then her TSH normalized to 1.37 so she was changed to 50 daily with strict follow up with Dr Gonsales within one week to repeat her levels- as per Dr Gonsales once her TSH became greater than 5 she would no longer need to be on the PTU. IN regards to patients fluid overload, she was originally started on PO torsemide 100 daily with no change in fluid status- then was started on IV lasix 100 BID with slight improvement in fluid status however no change in Cr so subsequently needed to start dialysis. Patient then transitioned back to oral torsemide 100 daily upon discharge, in addition to needing t/th/s dialysis as an outpatient- with strict f/u with Dr. Chen applications engineering manager and Dr Olsen servicenow administrator Minutes to complete discharge: 39 Discharge Summary Reason For Visit: ACUTE ON CHRONIC HEART FAILURE,ATRIAL FIBRILLATION Condition: Stable - Instructions Diet, Activity, Other Instructions: You came to the hospital with complaints of worsening palpitations and leg swelling with a worsening kidney function, subsequently needing a nephrostomy tube placement and dialysis. Please resume all of your home medications in addition: -please take torsemide 100mg daily -please take Propylthiouracil 50mg once a day Please see Dr. Gonsales within a week and have your thyroid levels checked Please see Dr. Chen, the applications engineering manager within a week Please see Dr Olsen, the servicenow administrator within a week You will need to see Dr. Razo the urologist within one week for him to evaluate the nephrostomy tube and possible need for a stent You will having outpatient dialysis sessions on a wednesday//wednesday schedule which has already been arranged if you begin to experience any chest pain, shortness of breath. increased leg or abdominal swelling, nausea, vomiting fevers or chills please return to the emergency room immediately Referrals: William Bruner MD [Primary Care Provider] - 1 Week Con Chen MD [Staff Physician] - 1 Week Sunny Gonsales MD [Staff Physician] - 1 Week Parth Razo MD [Staff Physician] - 1 Week Goyo Olsen MD [Staff Physician] - 1 Week Disposition: HOME - Home Medications Comprehensive Discharge Medication List: Ambulatory Orders Aspirin [ASA -] 81 mg PO DAILY 09/07/18 Cholecalciferol (Vitamin D3) [Vitamin D -] 5,000 unit PO DAILY 09/07/18 Clonazepam 0.5 mg PO QID 09/07/18 Ezetimibe [Zetia] 10 mg PO DAILY 09/07/18 Ferrous Gluconate [Iron] 256 mg PO DAILY 09/07/18 Fluticasone/Vilanterol [Breo Ellipta 100-25 Mcg INH] 1 each IH DAILY 09/07/18 Insulin Aspart [Novolog] 10 unit SQ [facility] 09/07/18 Insulin Glargine,Hum.rec.anlog [Lantus] 0 unit SQ [facility] 09/07/18 Prasugrel HCl [Effient] 10 mg PO DAILY 09/07/18 Rosuvastatin Calcium [Crestor] 10 mg PO DAILY 09/07/18 Carvedilol Phosphate [Coreg Cr -] 40 mg PO DAILY 10/17/18 Meclizine HCl 25 mg PO Q6H PRN 10/17/18 Metolazone 2.5 mg PO DAILY 10/17/18 Nitroglycerin Patch [Nitro-Dur Patch -] 0.2 mg TD DAILY 10/17/18 Torsemide [Demadex -] 100 mg PO DAILY 30 Days #30 tablet 11/03/18 Propylthiouracil 50 mg PO DAILY 30 Days #30 tablet 11/08/18 Problem List - Problems (1) A-fib Code(s): I48.91 - UNSPECIFIED ATRIAL FIBRILLATION (2) Hyperthyroidism Code(s): E05.90 - THYROTOXICOSIS, UNSP WITHOUT THYROTOXIC CRISIS OR STORM (3) Acute pulmonary edema with congestive heart failure Code(s): I50.1 - LEFT VENTRICULAR FAILURE, UNSPECIFIED This patient is new to me today: No Emergency Visit: Yes ED Registration Date: 10/16/18 Care time: The patient presented to the Emergency Department on the above date and was hospitalized for further evaluation of their emergent condition. Critical Care patient: No - Discharge Referral Referred to [facility] Med P.C.: No
--- NOTE | 2018-11-09 18:48 | PN ---
Teaching Attending Note Name of Resident: Charmaine Banda ATTENDING PHYSICIAN STATEMENT I saw and evaluated the patient. I reviewed the resident's note and discussed the case with the resident. I agree with the resident's findings and plan as documented. SUBJECTIVE: Patient has no complaints. OBJECTIVE: Vital Signs Period Temp Pulse Resp BP Sys/Shankar Pulse Ox Last 24 Hr 97.4 F-97.9 F 81-105 18-18 104-138/51-82 98-98 HEART: S1S2, RRR LUNGS: Clear ABDOMEN: Obese, soft, non-tender, non-distended, normal BS EXTREMITIES: 3+ edema Laboratory Results - last 24 hr 11/08/18 11/09/18 11/09/18 21:40 06:00 06:16 Sodium 135 L Potassium 4.4 Chloride 97 L Carbon Dioxide 30 Anion Gap 8 BUN 33 H Creatinine 3.4 H Creat Clearance w eGFR 13.64 POC Glucometer 162 177 Random Glucose 184 H Calcium 8.3 L 11/09/18 10:56 Sodium Potassium Chloride Carbon Dioxide Anion Gap BUN Creatinine Creat Clearance w eGFR POC Glucometer 208 Random Glucose Calcium ASSESSMENT AND PLAN: This is a 63 year old woman with a history of type 2 DM, HTN, hyperlipidemia, CAD, [place], CABG/stents, atrial fib, asthma, hyperthyroidism, CKD, anemia who presented to the ED with chest pain and palpitations. 1. Acute on chronic systolic heart failure - dry weight 205. s/p HD initiation. was c/o of increased abdominal girth yesterday which has since improved. lasix was switched to IV while hospitalized. can likely switch to po in AM. daily weights, monitor electrolytes. cardio on board. 2. Atrial fib with RVR - multiple intolerances to medications. now in NSR. on max doses of coreg at this time. off anticoagluation as no longer in Afib and likely induced from hyperthyroid state. cont cardiac monitoring. limited on alternative treatment options. cardio on board 3. Hyperthyroidism -s/p STEINBERG in the past. PTU reduced to 50mg daily. will need to f/u with Endo as outpatient for possible stopping medications 4. Acute kidney injury on stage 4 CKD secondary to chronic right UPJ obstruction - s/p R nephrostomy tube on 10/19. tube was dislodged. going for repositioning today. will need outpatient follow up. received HD 3x/week athis time via permacath. AV fistula created this hospital stay. OUtpatient HD has been initiated. vasc surg and Nephro on board. 5. Demand ischemia 6. CAD, history of [place], CABG, stents 7. Type 2 DM- insulin requirements improving as renal function improving. on levemir 5 units HS. will cont for now and titrate as needed.cont BGM, iSS. 8. HTN 9. Anemia
== END 2018-11-09 12:28 | disposition home or self-care (01) | DRG 443 ==
LOC: JER 15:15 → JERBED 18:27 → J4S 23:46
PROVIDERS: ADMIT Internal Medicine; ATTEND Internal Medicine
PROC: 5A1D70Z Performance of Urinary Filtration, Intermittent, Less than 6 Hours Per Day (ICD-10-PCS; 2018-10-16)
PROC: 0T9030Z Drainage of Right Kidney with Drainage Device, Percutaneous Approach (ICD-10-PCS; 2018-10-18)
PROC: 05HM33Z Insertion of Infusion Device into Right Internal Jugular Vein, Percutaneous Approach (ICD-10-PCS; 2018-10-27)
PROC: 03180JF Bypass Left Brachial Artery to Lower Arm Vein with Synthetic Substitute, Open Approach (ICD-10-PCS; principal; 2018-11-02 14:00)
PROC: 0T25X0Z Change Drainage Device in Kidney, External Approach (ICD-10-PCS; 2018-11-08)
DX: N17.9 Acute kidney failure, unspecified (principal); I13.2 Hypertensive heart and chronic kidney disease with heart failure and with stage 5 chronic kidney disease, or end stage renal disease; I50.23 Acute on chronic systolic (congestive) heart failure; N18.5 Chronic kidney disease, stage 5; J45.901 Unspecified asthma with (acute) exacerbation; N13.2 Hydronephrosis with renal and ureteral calculous obstruction; J98.11 Atelectasis; N39.0 Urinary tract infection, site not specified; I50.1 Left ventricular failure, unspecified; N28.89 Other specified disorders of kidney and ureter; I48.91 Unspecified atrial fibrillation; E05.90 Thyrotoxicosis, unspecified without thyrotoxic crisis or storm; I25.10 Atherosclerotic heart disease of native coronary artery without angina pectoris; E11.65 Type 2 diabetes mellitus with hyperglycemia; Z79.4 Long term (current) use of insulin; N13.9 Obstructive and reflux uropathy, unspecified; R00.0 Tachycardia, unspecified; I34.0 Nonrheumatic mitral (valve) insufficiency; I27.20 Pulmonary hypertension, unspecified; E83.39 Other disorders of phosphorus metabolism; E83.42 Hypomagnesemia; I42.9 Cardiomyopathy, unspecified; E66.9 Obesity, unspecified; Z68.37 Body mass index [BMI] 37.0-37.9, adult; E78.5 Hyperlipidemia, unspecified; Z98.61 Coronary angioplasty status; Z95.1 Presence of aortocoronary bypass graft; D64.9 Anemia, unspecified; E87.70 Fluid overload, unspecified; R07.9 Chest pain, unspecified
CPT/HCPCS: 36415; 50432; 50435; 71045-TC-FY; 74176-TC; 76000-TC-FY; 76775-TC; 77012-TC; 80048; 80053; 81003; 81015; 82272; 82962; 83036; 83735; 83880; 84100; 84436; 84439; 84443; 84480; 84481; 84484; 85025; 85027; 85610; 85730; 86704; 86706; 86708; 86803; 86850; 86900; 86901; 87070; 87075; 87086; 87186; 87205; 87340; 87522; 93005; 93010; 93970-TC; 94760; 97116-GP; 97161-GP; 99285-25; A4358; C1729; C1769; J0885; J1644; J2597; Q9967

== ENCOUNTER 2020-01-24 07:19 | Day surgery (SDC) | payer OTHER ==
[2020-01-17 13:04] VITALS: BMI 29.9
[2020-01-24] MEDS ORDERED: LIDOCAINE HCL 2% (20ML MULTI-DOSE VIAL) ONE (09:41)
[2020-01-24] MEDS ORDERED: LIDOCAINE 1%/EPI 1:100000 (20 ML MULTI DOSE VIAL) ONE ×2 (10:00→10:02)
[2020-01-24] MEDS ORDERED: SODIUM BICARBONATE 8.4% 50 MEQ/50 ML VIAL ONE (10:00)
[2020-01-24 12:11] VITALS: PULSE 84
[2020-01-24 12:14] VITALS: BP 178/74; TEMP 97.6
[2020-01-24] MEDS ORDERED: ACETAMINOPHEN 325 MG TABLET (FP) PO PRN (12:23)
[2020-01-24] MEDS ORDERED: SODIUM CHLORIDE 1,000 ML IV SCH (12:30)
--- NOTE | 2020-01-26 09:48 | OP ---
DATE OF OPERATION: 01/24/2020 PREOPERATIVE DIAGNOSES: 1. Right carpal tunnel syndrome. 2. Right ring trigger finger. POSTOPERATIVE DIAGNOSES: 1. Right carpal tunnel syndrome. 2. Right ring trigger finger. OPERATIVE PROCEDURE: 1. Right carpal tunnel release. 2. Right ring trigger finger release. SURGEON: Bry Harding MD ANESTHESIA: Local. COMPLICATIONS: None. ESTIMATED BLOOD LOSS: Minimal. INDICATION FOR PROCEDURE: The patient is a 64-year-old female with the above findings, indicated for operative treatment. Risks, benefits, and alternatives were discussed with the patient at length. Proper informed consent was obtained. DESCRIPTION OF PROCEDURE: After preoperative identification of the patient and correct operative site, patient was brought to the operating room and placed supine on the operating room table with all prominences well padded. The areas of incision had been anesthetized with 1% lidocaine with epinephrine and sodium bicarbonate. Right upper extremity was prepped and draped in the usual sterile fashion. Longitudinal incision was made over the proximal aspect of the palm. Incision was taken sharply through the skin with blunt and sharp dissection through subcutaneous tissues. Palmar fascia was divided longitudinally. Transverse carpal ligament was divided longitudinally along with the distal antebrachial fascia under direct vision with loupe magnification. This provided complete release of the median nerve at the wrist. The wound was repaired with 5-0 fast-absorbing plain gut suture. Second incision was made over the ring finger A1 yong. Incision was taken sharply through the skin with blunt and sharp dissection through subcutaneous tissue. A1 yong was identified and divided longitudinally. Patient was asked to flex and extend the finger, and no further triggering was noted. Wound was repaired with 5-0 fast-absorbing plain gut suture. Sterile dressings were applied. Patient brought to the recovery room in stable condition. She tolerated the procedure well. BRY HARDING M.D. [id number]
== END 2020-01-24 12:10 | disposition home or self-care (01) ==
LOC: FASU 07:19
PROVIDERS: ATTEND Orthopaedic Surgery Hand Surgery
PROC: 0LN70ZZ Release Right Hand Tendon, Open Approach (ICD-10-PCS; 2020-01-24)
PROC: 01N50ZZ Release Median Nerve, Open Approach (ICD-10-PCS; principal; 2020-01-24 11:15)
DX: G56.01 Carpal tunnel syndrome, right upper limb (principal); M65.341 Trigger finger, right ring finger
CPT/HCPCS: 82962

== ENCOUNTER 2020-02-04 16:41 | Emergency (ER) | payer OTHER ==
[2020-02-04 17:00] VITALS: BP 116/79; PULSE 66; TEMP 98.1; BMI 29.4
--- NOTE | 2020-02-04 17:48 | PDOC ---
Documentation entered by Natalya Palafox SCRIBE, acting as scribe for Pravin Peralta MD. Pravin Peralta MD: This documentation has been prepared by the juanibeBarbi Maria, SCRIBE, under my direction and personally reviewed by me in its entirety. I confirm that the documentation accurately reflects all work, treatment, procedures, and medical decision making performed by me. History of Present Illness - General Chief Complaint: Injury Stated Complaint: RT HAND INJURY Time Seen by Provider: 02/04/20 16:42 - History of Present Illness Initial Comments: 02/04/20 17:27 The patient is a 64 year old female with a significant past medical history of hyperthyroidism,CHF,HTN, NC s/p CABG,HLD, CKD and asthma who presents to the emergency department s/p fall. As per patient, she reports tripping and falling on the sidewalk landing on her right hand. Patient reports having surgery with Dr. Bean on January 24, on her right hand, which currently has stitches and noticed blood on her bandages after the fall prompting her to the ER. Patient is scheduled for a follow up with Dr. Bean on Wednesday, for the removal of her stitches. Denies LOC. Denies head injury. Past History - Past Medical History Allergies/Adverse Reactions: Allergies Allergy/AdvReac Type Severity Reaction Status Date / Time Iodinated Contrast Media Allergy Severe HIVES,ITCHI Verified 02/04/20 16:52 [Iodinated Contrast Media - NG IV Dye] Penicillins Allergy Intermediate Hives Verified 02/04/20 16:52 tiotropium AdvReac Verified 02/04/20 16:52 [From Spiriva with HandiHaler] Home Medications: Ambulatory Orders Clonazepam 0.5 mg PO QID 09/07/18 Ezetimibe [Zetia] 10 mg PO Q2D 09/07/18 Ferrous Gluconate [Iron] 256 mg PO DAILY 09/07/18 Fluticasone/Vilanterol [Breo Ellipta 100-25 Mcg INH] 1 each IH DAILY 09/07/18 Insulin Aspart [Novolog] 10 unit SQ ASDIR 09/07/18 Insulin Glargine,Hum.rec.anlog [Lantus] 0 unit SQ ASDIR 09/07/18 Prasugrel HCl [Effient] 10 mg PO DAILY 09/07/18 Carvedilol Phosphate [Coreg Cr -] 40 mg PO DAILY 10/17/18 Aspirin [Aspirin EC] 81 mg PO DAILY 01/17/20 Brimonidine Tartrate [Alphagan P 0.1% -] 1 drop OU TID 01/17/20 Cholecalciferol (Vitamin D3) [Vitamin D3] 5,000 unit PO DAILY 01/17/20 Folic Acid/Vit B Complex and C [Dialyvite 800 Tablet] 0.8 mg PO DAILY 01/17/20 Latanoprost/Pf [Latanoprost 0.005% Eye Drop] 1 drop OU HS 01/17/20 Rosuvastatin Calcium [Crestor] 5 mg PO HS 01/17/20 Sevelamer Carbonate [Renvela] 800 mg PO DAILY 01/17/20 Anemia: Yes Asthma: Yes Cancer: No Cardiac Disorders: Yes (NC 2013, 1 stent, CAD, Pulmonary HTN) CVA: No COPD: No CHF: Yes (Diastolic) DVT: No Dementia: No Diabetes: Yes GI Disorders: No Disorders: Yes (CKD, elevated creatinine) HTN: Yes Hypercholesterolemia: Yes Kidney Stones: Yes Liver Disease: No Seizures: No Thyroid Disease: Yes (Hyperthyroidism) - Surgical History Abdominal Surgery: Yes (SEE BELOW) Appendectomy: No Cardiac Surgery: Yes (2 stents 04/29/2015) Cholecystectomy: No Lung Surgery: No Neurologic Surgery: No Orthopedic Surgery: Yes (right foot surgery as a child, left knee arthroscopy for meniscus tear) - Immunization History Immunization Up to Date: Yes - Psycho Social/Smoking Cessation Hx Smoking Status: No Smoking History: Never smoked Have you smoked in the past 12 months: No Number of Cigarettes Smoked Daily: 0 Hx Alcohol Use: No Drug/Substance Use Hx: No Substance Use Type: None Hx Substance Use Treatment: No Review of Systems - Review of Systems Able to Perform ROS?: Yes Comments:: 02/04/20 17:28 CONSTITUTIONAL: Absent: Fever, Chills, Diaphoresis, Generalized Weakness, Malaise, Loss of Appetite HEENT: Absent: Rhinorrhea, Nasal Congestion, Throat Pain, Throat Swelling, Difficulty Swallowing, Mouth Swelling, Ear Pain, Eye Pain, Visual Changes CARDIOVASCULAR: Absent: Chest Pain, Syncope, Palpitations, Irregular Heart Rate, Lightheadedness, Peripheral Edema RESPIRATORY: Absent: Cough, Shortness of Breath, SOB with Exertion, Orthopnea, Wheezing, Stridor, Hemoptysis GASTROINTESTINAL: Absent: Abdominal pain, Abdominal Distension, Nausea, Vomiting, Diarrhea, Constipation, Melena, Hematochezia GENITOURINARY: Absent: Dysuria, Frequency, Urgency, Hesitancy, Flank Pain, Genital Pain MUSCULOSKELETAL: Absent: Myalgia, Arthralgia, Joint Swelling, Back pain, Neck Pain SKIN:+right arm wound Absent: Rash, Itching, Pallor HEMEATOLOGIC/IMMUNOLOGIC: Absent: Easy Bleeding, Easy Bruising, Lymphadenopathy, Frequent infections ENDOCRINE: Absent: Unexplained Weight Gain, Unexplained Weight Loss, Heat Intolerance, Cold Intolerance NEUROLOGIC: Absent: Headache, Focal Weakness, Paresthesias, Vertigo, Lightheadedness, Unsteady Gait, Seizure, Mental Status Changes, Incontinence PSYCHIATRIC: Absent: Anxiety, Depression *Physical Exam - Physical Exam 02/04/20 17:45 GENERAL: The patient is awake, alert, and fully oriented, in no acute distress. She is ambulatory in the ED with stable gait. She is complaining of discomfort in her right hand and wrist. HEAD: Normal with no signs of trauma. EYES: Pupils equal, round and reactive to light, extraocular movements intact, sclera anicteric, conjunctiva clear. EXTREMITIES: The right volar wrist has sutures in place which are intact. There is a healing wound which is closed. There are a few drops of blood along the suture line. The wound was cleansed with saline, and there is no active bleeding. There is some mild tenderness diffusely around the volar aspect of the wrist. Fingers with expected range of motion post surgery. All suture lines intact. Positive discomfort with range of motion of the wrist, but no point tenderness. NEUROLOGICAL: Normal speech, normal gait. PSYCH: Normal mood, normal affect. SKIN: Warm, Dry, normal turgor, no rashes or lesions noted. Sutures in the right hand and wrist are intact. No signs of infection. No erythema, no disch arge, and normal swelling as expected per post surgery. Scant blood at the suture line was cleansed with no active bleeding post cleansing. Medical Decision Making - Medical Decision Making 02/04/20 18:33 64-year-old female 10 days post carpal tunnel release in the right hand. Today patient tripped over a curb and fell, stopping her fall with her right hand. She presents complaining of pain and discomfort in the right hand and wrist. On examination, there is scant blood along the suture line at the volar right wrist. The wound was cleansed and the wound edges are well opposed with sutures intact. There is no sign of infection. There is tenderness diffusely in the proximal hand and distal wrist. X-rays of the right hand and wrist were performed. On my preliminary review, there are no signs of fracture or dislocation. Final radiology reading is pending at the time of discharge. Radiology follow-up procedure was activated. After cleansing of the wound, bacitracin and dry sterile dressing with Raeksh bandage was applied. ED evaluation and findings were discussed with VIKI Araujo. Patient will follow-up as scheduled with Dr. Bry Bean on February 05 as previously scheduled. Discharge - Discharge Information Problems reviewed: Yes Clinical Impression/Diagnosis: Right wrist sprain Qualifiers: Encounter type: initial encounter Qualified Code(s): S63.501A - Unspecified sprain of right wrist, initial encounter Condition: Stable Disposition: HOME - Admission No - Follow up/Referral Referrals: Bry Bean MD [Staff Physician] - 2 Days - Patient Discharge Instructions Patient Printed Discharge Instructions: DI for Wrist Sprain Additional Instructions: Today you were evaluated after a fall with an injury to your right wrist. The stitches from your recent surgery are all intact. The x-ray of the bones does not show any fracture. You are advised to follow-up on February 05, with Dr. Bean as scheduled. Keep the Rakesh bandage in place, elevate the hand to help reduce the pain, and continue to take your pain medication as previously prescribed after surgery. Return to the emergency department for any severe or progressive symptoms. - Post Discharge Activity
== END 2020-02-04 18:52 | disposition home or self-care (01) ==
LOC: FER 16:41
DX: S63.501A Unspecified sprain of right wrist, initial encounter (principal); W01.0XXA Fall on same level from slipping, tripping and stumbling without subsequent striking against object, initial encounter; Y93.89 Activity, other specified; Y92.89 Other specified places as the place of occurrence of the external cause; E07.9 Disorder of thyroid, unspecified; I10 Essential (primary) hypertension; I25.2 Old myocardial infarction; E78.5 Hyperlipidemia, unspecified; N18.9 Chronic kidney disease, unspecified; Z95.1 Presence of aortocoronary bypass graft; Z91.041 Radiographic dye allergy status; Z88.0 Allergy status to penicillin; Z88.8 Allergy status to other drugs, medicaments and biological substances
CPT/HCPCS: 71046-TC-FY; 73110-TC-RT-FY; 73130-TC-RT-FY; 99284-25

== ENCOUNTER 2020-06-26 09:18 | Day surgery (SDC) | payer OTHER ==
[2020-06-19 10:14] VITALS: BMI 29.1
[2020-06-26] MEDS ORDERED: PROPOFOL 20 ML ONE (10:16)
[2020-06-26] MEDS ORDERED: MIDAZOLAM HCL 2 MG/2 ML SINGLE DOSE VIAL ONE (10:16)
[2020-06-26] MEDS ORDERED: LIDOCAINE HCL/PF 2% SDV 5ML VIAL ONE (10:17)
[2020-06-26] MEDS ORDERED: LIDOCAINE HCL 2% (50ML VIAL) INF ONE (10:50)
[2020-06-26 11:44] VITALS: PULSE 75; TEMP 98.1
[2020-06-26 12:25] VITALS: BP 152/72
--- NOTE | 2020-06-28 17:50 | OP ---
DATE OF OPERATION: 06/26/2020 PREOPERATIVE DIAGNOSIS: 1. Left carpal tunnel syndrome. 2. Left ring trigger finger. POSTOPERATIVE DIAGNOSIS: 1. Left carpal tunnel syndrome. 2. Left ring trigger finger. OPERATIVE PROCEDURE: 1. Left carpal tunnel release. 2. Left ring trigger finger release. SURGEON: Bry Harding MD. ANESTHESIA: Local with sedation. COMPLICATIONS: None. ESTIMATED BLOOD LOSS: Minimal. INDICATION FOR PROCEDURE: The patient is a 65-year-old female with the above findings, indicated for operative treatment. Risks, benefits, and alternatives were discussed with the patient at length. Proper informed consent was obtained. PROCEDURE: After proper identification of the patient and correct operative site, patient was brought to the operating room and placed supine on the operating table, all bony prominences well padded. Sedation and local anesthesia were given. Left upper extremity was prepped and draped in the usual sterile fashion. Well-padded tourniquet was placed with a sterile prep. Esmarch bandage to exsanguinate the left upper extremity. Tourniquet inflated to 250 mmHg. Tourniquet was placed distal to her dialysis anastomosis. Longitudinal incision was made in the proximal aspect of the palm. Incision was taken sharply through the skin with blunt and sharp dissection through subcutaneous tissues. The palmar fascia was divided longitudinally. The transcarpal ligament divided longitudinally along with the distal 4 cm of the antebrachial fascia under direct visualization with loupe magnification. This provided complete release of the median nerve at the wrist. Wound was irrigated and repaired with 5-0 plain gut suture. A 2nd incision was made over the ring finger A1 yong. The incision was taken sharply through the skin, with blunt and sharp dissection to subcutaneous tissue. A1 yong was identified and divided longitudinally. Patient was then able to flex and extend the finger, and no further triggering was noted. Wound was repaired with 5-0 plain gut suture. Sterile dressing was applied. The patient was brought to the recovery room in stable condition. She tolerated the procedure well. BRY HARDING M.D. [id number]
== END 2020-06-26 12:25 | disposition home or self-care (01) ==
LOC: FASU 09:18
PROVIDERS: ATTEND Orthopaedic Surgery Hand Surgery
PROC: 01N50ZZ Release Median Nerve, Open Approach (ICD-10-PCS; principal; 2020-06-26 10:52)
PROC: 0LN80ZZ Release Left Hand Tendon, Open Approach (ICD-10-PCS; 2020-06-26 10:52)
DX: G56.02 Carpal tunnel syndrome, left upper limb (principal); M65.342 Trigger finger, left ring finger
CPT/HCPCS: 82962

== ENCOUNTER 2021-03-17 17:31 | Emergency (ER) | payer OTHER ==
[2021-03-17 18:15] VITALS: BP 177/71; PULSE 85; TEMP 99; BMI 30.7
[2021-03-17 19:09] LABS: BASO % 1.3 % (0-2.0); EOS % 2.2 % (0-4.5); HEMATOCRIT 37.5 % (32.4-45.2); HEMOGLOBIN 12.5 GM/dl (10.7-15.3); LYMPH % 19.8 % (8-40); MCH 29.5 pg (25.7-33.7); MCHC 33.3 g/dl (32.0-36.0); MEAN CELL VOLUME 88.7 fl (80-96); MEAN PLT VOLUME 7.6 fl (7.5-11.1); MONO % 7.5 % (3.8-10.2); NEUT % 69.2 % (42.8-82.8); PLATELET COUNT 229 K/MM3 (134-434); RBC 4.23 M/mm3 (3.60-5.2); RDW 12.5 % (11.6-15.6); WHITE BLOOD COUNT 7.9 K/mm3 (4.0-10.8)
[2021-03-17 19:35] LABS: ALBUMIN 4.2 g/dl (3.4-5.0); BILIRUBIN,TOTAL 0.7 mg/dl (0.2-1); CALCIUM 8.6 mg/dl (8.5-10); TOT PROT 8.1 g/dl (6.4-8.2)
== END 2021-03-17 20:07 | disposition home or self-care (01) ==
LOC: FER 17:31 → SUPCPDRO 17:31 → FER 20:07
DX: K59.09 Other constipation (principal)
CPT/HCPCS: 36415; 74018-TC-FY; 80053; 85025; 99284-25

== ENCOUNTER 2022-09-18 11:18 | Emergency (ER) | payer OTHER ==
[2022-09-18 11:31] VITALS: BP 162/75; PULSE 95; RESP 18; TEMP 98.6; BMI 34.6
[2022-09-18] MEDS ORDERED: ACETAMINOPHEN 500 MG TABLET (FP) PO ONE (12:03)
[2022-09-18] MEDS ORDERED: ACETAMINOPHEN 325 MG TABLET (FP) ONE (12:20)
[2022-09-18 14:04] LABS: INR 1.07 (0.83-1.09); PROTHROMBIN TIME (PATIENT) 12.3 SEC (9.7-13.0)
[2022-09-18 14:06] LABS: HEMOGLOBIN 10.5 G/dL (10.7-15.3); MCH 30.1 pg (25.7-33.7); MCHC 33.9 g/dl (32.0-36.0); MEAN CELL VOLUME 88.9 fl (80-96); MEAN PLT VOLUME 7.4 fl (7.5-11.1); PLATELET COUNT 246.3 10^3/uL (134-434); RBC 3.49 10^6/uL (3.60-5.2); RDW 13.6 % (11.6-15.6); WHITE BLOOD COUNT 7.6 10^3/uL (4.0-10.8)
[2022-09-18 14:07] LABS: ACTIVATED PTT 35.5 SECONDS (25.2-36.5)
[2022-09-18 14:12] LABS: ALBUMIN 3.6 g/dl (3.4-5.0); BILIRUBIN,TOTAL 0.5 mg/dl (0.2-1); CALCIUM 8.7 mg/dl (8.5-10); CREATININE 7.6 mg/dl (0.55-1.3); TOT PROT 7.3 g/dl (6.4-8.2)
[2022-09-18] MEDS ORDERED: CLINDAMYCIN HCL 300 MG CAPSULE PO ONE (14:50)
[2022-09-18] MEDS ORDERED: CLINDAMYCIN HCL 150 MG CAPSULE (FP) ONE (15:06)
[2022-09-18 15:27] LABS: PLATELET ESTIMATE ADEQUATE
== END 2022-09-18 15:34 | disposition home or self-care (01) ==
LOC: FER 11:18
DX: M79.604 Pain in right leg (principal); R60.9 Edema, unspecified
CPT/HCPCS: 36415; 73590-TC-RT-FY; 73610-TC-RT-FY; 73630-TC-RT-FY; 80053; 84550; 85025; 85610; 85730; 93971-TC; 99284-25

== ENCOUNTER 2022-10-10 11:05 | Emergency (ER) | payer OTHER ==
[2022-10-10 11:18] VITALS: BMI 34.4
[2022-10-10] MEDS ORDERED: VANCOMYCIN 1 GM in D5W (PRE-DOCKED) 1,000 MG/250 ML IVPB ONE (11:20)
[2022-10-10] MEDS ORDERED: CEFEPIME 0.5 GM in DEXTROSE 5%-WATER - 100 ML IVPB ONE (11:30)
[2022-10-10] MEDS ORDERED: ACETAMINOPHEN 500 MG TABLET (FP) PO ONE (11:31)
[2022-10-10] MEDS ORDERED: VANCOMYCIN 1,000 MG VIAL (RESTRICTED TO ID ONLY) ONE (11:56)
[2022-10-10] MEDS ORDERED: ACETAMINOPHEN 500 MG TABLET (FP) ONE (11:56)
[2022-10-10 15:03] LABS: HEMATOCRIT 29.2 % (32.4-45.2); HEMOGLOBIN 9.6 G/dL (10.7-15.3); MCH 29.1 pg (25.7-33.7); MCHC 32.8 g/dl (32.0-36.0); MEAN CELL VOLUME 88.6 fl (80-96); MEAN PLT VOLUME 7.3 fl (7.5-11.1); PLATELET COUNT 330.9 10^3/uL (134-434); RDW 12.9 % (11.6-15.6); WHITE BLOOD COUNT 6.7 10^3/uL (4.0-10.8)
[2022-10-10 15:06] LABS: ALBUMIN 3.1 g/dl (3.4-5.0); BILIRUBIN,TOTAL 0.7 mg/dl (0.2-1); CALCIUM 8.5 mg/dl (8.5-10); CREATININE 3.8 mg/dl (0.55-1.3); TOT PROT 7.3 g/dl (6.4-8.2)
[2022-10-10 15:10] LABS: PLATELET ESTIMATE ADEQUATE
[2022-10-10 16:10] VITALS: BP 152/70; PULSE 78; RESP 20; TEMP 98.2
[2022-10-10] MEDS ORDERED: ACETAMINOPHEN 325 MG TABLET (FP) PO PRN (17:07)
[2022-10-10] MEDS ORDERED: clonazePAM 0.5 MG ODT TABLETS SL SCH (18:00)
[2022-10-10] MEDS ORDERED: BRIMONIDINE TARTRATE 0.1% OPHTHALMIC 5 ML BOTTLE OU SCH (22:00)
[2022-10-10] MEDS ORDERED: HEPARIN NA (PORCINE) 5,000 UNITS/ML 1ML VIAL SQ SCH (22:00)
[2022-10-10] MEDS ORDERED: INSULIN SLIDING SCALE (NOVOLOG) 1 VIAL SQ SCH (22:00)
[2022-10-10] MEDS ORDERED: ROSUVASTATIN CA 5 MG TABLET PO SCH (22:00)
[2022-10-11] MEDS ORDERED: FERROUS GLUCONATE 256 MG PO SCH (10:00)
[2022-10-11] MEDS ORDERED: ASPIRIN COATED 81 MG TABLET.EC PO SCH (10:00)
[2022-10-11] MEDS ORDERED: CLOPIDOGREL BISULFATE 75 MG TABLET (FP) PO SCH (10:00)
== END 2022-10-10 19:45 | disposition left against medical advice (07) ==
LOC: FER 11:05
DX: L97.529 Non-pressure chronic ulcer of other part of left foot with unspecified severity (principal)
CPT/HCPCS: 0241U-QW; 36415; 80053; 85025; 85651; 87040; 93005; 99285-25

== ENCOUNTER 2023-03-24 14:28 | Emergency (ER) | payer OTHER ==
[2023-03-24 15:02] VITALS: BP 160/69; PULSE 75; RESP 18; TEMP 98.1; BMI 34.1
[2023-03-24] MEDS ORDERED: MAG HYDROX/AL HYDROX/SIMETH 30 ML UNIT-DOSE CUP PO ONE (15:19)
[2023-03-24] MEDS ORDERED: FAMOTIDINE 20 MG/50 ML IVPB 20 MG/50 ML MG IVPB ONE ×2 (15:22→15:45)
[2023-03-24 15:26] LABS: HEMATOCRIT 36.6 % (32.4-45.2); HEMOGLOBIN 11.9 G/dL (10.7-15.3); MCH 28.7 pg (25.7-33.7); MCHC 32.6 g/dl (32.0-36.0); MEAN CELL VOLUME 88.3 fl (80-96); MEAN PLT VOLUME 8.5 fl (7.5-11.1); PLATELET COUNT 180.7 10^3/uL (134-434); RBC 4.15 10^6/uL (3.60-5.2); RDW 14.3 % (11.6-15.6); WHITE BLOOD COUNT 5.6 10^3/uL (4.0-10.8)
[2023-03-24 15:31] LABS: ALBUMIN 3.9 g/dl (3.4-5.0); BILIRUBIN,TOTAL 0.6 mg/dl (0.2-1); CALCIUM 8.8 mg/dl (8.5-10); TOT PROT 8.1 g/dl (6.4-8.2)
[2023-03-24 15:33] LABS: PLATELET ESTIMATE ADEQUATE
[2023-03-24] MEDS ORDERED: MAG HYDROX/AL HYDROX/SIMETH 30 ML UNIT-DOSE CUP ONE (15:45)
== END 2023-03-24 19:05 | disposition home or self-care (01) ==
LOC: FER 14:28
PROC: 3E033GC Introduction of Other Therapeutic Substance into Peripheral Vein, Percutaneous Approach (ICD-10-PCS; principal; 2023-03-24)
DX: R07.2 Precordial pain (principal); R10.13 Epigastric pain; R14.0 Abdominal distension (gaseous); R14.2 Eructation; K21.00 Gastro-esophageal reflux disease with esophagitis, without bleeding
CPT/HCPCS: 36415; 71045-TC-FY; 80053; 84484; 85027; 93005; 99285-25

== ENCOUNTER 2023-09-24 19:41 | Emergency (ER) | payer OTHER ==
[2023-09-24 20:01] VITALS: BP 141/47; PULSE 62; RESP 18; TEMP 98.6; BMI 34.1
== END 2023-09-24 20:13 | disposition home or self-care (01) ==
LOC: FER 19:41
DX: H93.A1 Pulsatile tinnitus, right ear (principal); R09.81 Nasal congestion; J34.89 Other specified disorders of nose and nasal sinuses
CPT/HCPCS: 99282-25

== ENCOUNTER 2024-01-23 14:29 | Emergency (ER) | payer OTHER ==
[2024-01-23] MEDS ORDERED: ALBUTEROL SO4 2.5/IPRATROPIUM 0.5 INH SOL 3 ML VIAL.NEB. NEB ONE (14:42)
[2024-01-23 14:53] VITALS: BP 133/77; PULSE 89; RESP 20; TEMP 97.7; BMI 34.2
[2024-01-23] MEDS ORDERED: ALBUTEROL SO4 0.083% IH SOL 2.5 MG/3 ML VIAL.NEB. NEB ONE (14:54)
[2024-01-23] MEDS: ALBUTEROL SO4 0.5 % INH SOLN 2.5 MG/0.5 ML VIAL.NEB. NEB ONE (14:56)
[2024-01-23] MEDS ORDERED: ACETAMINOPHEN 325 MG TABLET (FP) ONE (14:57)
[2024-01-23] MEDS: ACETAMINOPHEN 325 MG TABLET (FP) PO ONE (15:02)
[2024-01-23] MEDS ORDERED: guaiFENesin/CODEINE 10 ML UNIT-DOSE CUPS ONE (15:41)
[2024-01-23] MEDS: guaiFENesin/CODEINE 5 ML UNIT-DOSE CUPS PO ONE (15:48)
== END 2024-01-23 16:33 | disposition home or self-care (01) ==
LOC: FER 14:29
PROC: 3E0F7GC Introduction of Other Therapeutic Substance into Respiratory Tract, Via Natural or Artificial Opening (ICD-10-PCS; principal; 2024-01-23)
DX: J40 Bronchitis, not specified as acute or chronic (principal); R05.9 Cough, unspecified; Z20.822 Contact with and (suspected) exposure to COVID-19
CPT/HCPCS: 0241U-QW; 71046-TC-FY; 99284-25

== ENCOUNTER 2024-02-03 09:04 | Observation (INO) | payer OTHER ==
[2024-02-03 11:36] VITALS: BMI 34.4
[2024-02-03 11:48] LABS: POTASSIUM 4.2 mmol/L (3.5-5.1)
[2024-02-03 11:50] LABS: CALCIUM 9.2 mg/dL (8.5-10.1)
[2024-02-03 11:51] LABS: ALBUMIN 3.2 g/dl (3.4-5.0); BLOOD UREA NITROGEN 28.7 mg/dL (7-18)
[2024-02-03 11:54] LABS: CREATININE 5.3 mg/dL (0.55-1.3)
[2024-02-03 11:55] LABS: BILIRUBIN,TOTAL 0.5 mg/dL (0.2-1)
[2024-02-03 11:56] LABS: TOT PROT 7.2 g/dl (6.4-8.2)
[2024-02-03 13:37] LABS: HEMATOCRIT 37.7 % (32.4-45.2); HEMOGLOBIN 12.2 GM/dL (10.7-15.3); MCH 29.5 pg (25.7-33.7); MCHC 32.4 g/dl (32.0-36.0); MEAN PLT VOLUME 7.8 fl (7.5-11.1); PLATELET COUNT 192 10^3/uL (134-434); RBC 4.15 M/mm3 (3.60-5.2); RDW 14.5 % (11.6-15.6); WHITE BLOOD COUNT 6.1 K/mm3 (4.0-10.0)
[2024-02-03 14:18] LABS: ANISOCYTOSIS 1+; MACROCYTOSIS 0; OVALOCYTE 1+
[2024-02-03] MEDS ORDERED: ACETAMINOPHEN INJECTION 100 ML IVPB ONE (18:46)
[2024-02-03] MEDS ORDERED: ASPIRIN 81 MG CHEWABLE TABLETS ONE (18:46)
[2024-02-03] MEDS: ASPIRIN 81 MG CHEWABLE TABLETS PO ONE (18:50)
[2024-02-03] MEDS: ACETAMINOPHEN 1000 MG/100 ML BAG IVPB ONE (18:50)
[2024-02-03] MEDS ORDERED: HEPARIN NA (PORCINE) 5,000 UNITS/ML 1ML VIAL ONE (22:35)
[2024-02-03] MEDS ORDERED: ACETAMINOPHEN 325 MG TABLET (FP) ONE (22:35)
[2024-02-03] MEDS: ACETAMINOPHEN 325 MG TABLET (FP) PO PRN (22:48)
[2024-02-03] MEDS: HEPARIN NA (PORCINE) 5,000 UNITS/ML 1ML VIAL SQ SCH (22:48)
[2024-02-04] MEDS ORDERED: MELATONIN 5 MG TABLETS ONE (02:11)
[2024-02-04] MEDS: MELATONIN 5 MG TABLETS PO ONE (02:19)
[2024-02-04 06:38] VITALS: RESP 16
[2024-02-04 07:36] LABS: HEMATOCRIT 38.4 % (32.4-45.2); HEMOGLOBIN 12.4 GM/dL (10.7-15.3); MCH 29.6 pg (25.7-33.7); MCHC 32.3 g/dl (32.0-36.0); MEAN CELL VOLUME 91.6 fl (80-96); MEAN PLT VOLUME 7.7 fl (7.5-11.1); PLATELET COUNT 194 10^3/uL (134-434); RBC 4.19 M/mm3 (3.60-5.2); RDW 14.5 % (11.6-15.6); WHITE BLOOD COUNT 5.3 K/mm3 (4.0-10.0)
[2024-02-04 07:43] LABS: POTASSIUM 4.3 mmol/L (3.5-5.1)
[2024-02-04 07:46] LABS: ALBUMIN 3.3 g/dl (3.4-5.0); BLOOD UREA NITROGEN 37.7 mg/dL (7-18); CALCIUM 9.2 mg/dL (8.5-10.1)
[2024-02-04 07:47] LABS: MAGNESIUM 2.2 mg/dL (1.8-2.4)
[2024-02-04 07:49] LABS: CREATININE 6.6 mg/dL (0.55-1.3); PHOSPHOROUS 5.5 mg/dL (2.5-4.9)
[2024-02-04 07:50] LABS: BILIRUBIN,TOTAL 0.6 mg/dL (0.2-1); INR 1.26 (0.83-1.09); PROTHROMBIN TIME (PATIENT) 14.6 SEC (9.7-13.0)
[2024-02-04] MEDS ORDERED: ALBUTEROL SO4 HFA INHALER IH PRN (07:57)
[2024-02-04] MEDS ORDERED: CLOPIDOGREL BISULFATE 75 MG TABLET (FP) ONE (08:55)
[2024-02-04] MEDS: CLOPIDOGREL BISULFATE 75 MG TABLET (FP) PO SCH (09:21)
[2024-02-04 10:41] VITALS: TEMP 98.2
[2024-02-04 12:02] VITALS: BP 118/72; PULSE 100
== END 2024-02-04 15:24 | disposition home or self-care (01) ==
LOC: JER 09:04 → JERBED 02-04 06:16
PROVIDERS: ADMIT Internal Medicine; ATTEND Internal Medicine
PROC: 3E033NZ Introduction of Analgesics, Hypnotics, Sedatives into Peripheral Vein, Percutaneous Approach (ICD-10-PCS; principal; 2024-02-04)
DX: I25.10 Atherosclerotic heart disease of native coronary artery without angina pectoris (principal); I12.0 Hypertensive chronic kidney disease with stage 5 chronic kidney disease or end stage renal disease; N18.6 End stage renal disease; Z99.2 Dependence on renal dialysis; I48.91 Unspecified atrial fibrillation; R77.8 Other specified abnormalities of plasma proteins; J45.909 Unspecified asthma, uncomplicated; I95.9 Hypotension, unspecified; I25.2 Old myocardial infarction; I27.20 Pulmonary hypertension, unspecified; I34.0 Nonrheumatic mitral (valve) insufficiency; E78.5 Hyperlipidemia, unspecified; G47.33 Obstructive sleep apnea (adult) (pediatric); E05.90 Thyrotoxicosis, unspecified without thyrotoxic crisis or storm
CPT/HCPCS: 36415; 71045-TC-FY; 80053; 83735; 84100; 84484; 85025; 85027; 85610; 93005; 93010; 96374; 99285-25; G0378; J0131

== ENCOUNTER 2024-02-17 08:41 | Inpatient (IN) | payer OTHER ==
[2024-02-17 10:22] LABS: INR 1.14 (0.83-1.09); PROTHROMBIN TIME (PATIENT) 13.2 SEC (9.7-13.0)
[2024-02-17 10:24] LABS: ACTIVATED PTT 22.7 SECONDS (25.2-36.5)
[2024-02-17 10:35] LABS: POTASSIUM 4.7 mmol/L (3.5-5.1)
[2024-02-17 10:36] LABS: CALCIUM 9.6 mg/dL (8.5-10.1)
[2024-02-17 10:37] LABS: ALBUMIN 3.3 g/dl (3.4-5.0); BLOOD UREA NITROGEN 38.7 mg/dL (7-18)
[2024-02-17 10:40] LABS: CREATININE 5.9 mg/dL (0.55-1.3)
[2024-02-17 10:42] LABS: BILIRUBIN,TOTAL 0.8 mg/dL (0.2-1); TOT PROT 7.7 g/dl (6.4-8.2)
[2024-02-17] MEDS: ASPIRIN 325 MG ENTERIC COATED TABLET (FP) PO ONE (11:22)
[2024-02-17] MEDS ORDERED: ASPIRIN 325 MG TABLET ONE (11:22)
[2024-02-17 11:27] LABS: N-TERMINAL BNP 112114.8 pg/ml (5-125)
[2024-02-17] MEDS ORDERED: LIDOCAINE 4% PATCH TP ONE (12:15)
[2024-02-17] MEDS: LIDOCAINE 5% TOPICAL PATCH TP ONE (12:18)
[2024-02-17 14:55] LABS: VENOUS BASE EXCESS -2.3 mmol/L (-2-2); VENOUS O2 SATURATION 58.3 % (70-80); VENOUS PCO2 45.8 mmHg (38-52); VENOUS PH 7.334 (7.310-7.410)
[2024-02-17] MEDS ORDERED: METOPROLOL TARTRATE 25 MG TABLET (FP) ONE (14:57)
[2024-02-17 15:00] LABS: BASO % 0.2 % (0-2.0); HEMATOCRIT 40.5 % (32.4-45.2); HEMOGLOBIN 13.3 GM/dL (10.7-15.3); LYMPH % 15.6 % (8-40); MCH 29.3 pg (25.7-33.7); MCHC 32.8 g/dl (32.0-36.0); MEAN CELL VOLUME 89.3 fl (80-96); MEAN PLT VOLUME 8.2 fl (7.5-11.1); MONO % 5.5 % (3.8-10.2); NEUT % 78.7 % (42.8-82.8); PLATELET COUNT 202 10^3/uL (134-434); RBC 4.53 M/mm3 (3.60-5.2); RDW 15.6 % (11.6-15.6); WHITE BLOOD COUNT 6.7 K/mm3 (4.0-10.0)
[2024-02-17] MEDS: METOPROLOL TARTRATE 25 MG TABLET (FP) PO SCH ×2 (15:07→21:08)
[2024-02-17 15:16] LABS: POTASSIUM 4.1 mmol/L (3.5-5.1)
[2024-02-17 15:20] LABS: CALCIUM 9.4 mg/dL (8.5-10.1)
[2024-02-17 15:21] LABS: ALBUMIN 3.2 g/dl (3.4-5.0); BLOOD UREA NITROGEN 38.2 mg/dL (7-18)
[2024-02-17 15:23] LABS: CREATININE 6.1 mg/dL (0.55-1.3)
[2024-02-17 15:25] LABS: BILIRUBIN,TOTAL 0.6 mg/dL (0.2-1); TOT PROT 7.1 g/dl (6.4-8.2)
[2024-02-17] MEDS: ACETAMINOPHEN 1000 MG/100 ML BAG IVPB PRN (15:50)
[2024-02-17] MEDS ORDERED: ACETAMINOPHEN INJECTION 100 ML IVPB ONE (16:50)
[2024-02-17] MEDS ORDERED: ASPIRIN 81 MG CHEWABLE TABLETS PO SCH (18:15)
[2024-02-17] MEDS: CLOPIDOGREL BISULFATE 75 MG TABLET (FP) PO SCH (18:51)
[2024-02-17] MEDS ORDERED: LEVALBUTEROL HCL 0.63 MG/3 ML VIAL.NEB. IH SCH (20:00)
[2024-02-17] MEDS: EZETIMIBE 10 MG TABLET (FP) PO SCH (21:08)
[2024-02-17] MEDS: LIDOCAINE PATCH REMOVAL MC SCH (21:08)
[2024-02-17] MEDS: LEVALBUTEROL HCL 0.31 MG/3 ML VIAL.NEB IH PRN (21:46)
[2024-02-17] MEDS ORDERED: ROSUVASTATIN CA 5 MG TABLET PO SCH (22:00)
[2024-02-17] MEDS ORDERED: PATIENT'S OWN MEDICATION (NON-FORMULARY) (Sucroferric Oxyhydroxide [Velphoro] 500 MG Tab.C PO SCH (22:00)
[2024-02-17] MEDS: clonazePAM 0.5 MG TABLET PO ONE (22:05)
[2024-02-17] MEDS: HEPARIN NA (PORCINE) 5,000 UNITS/ML 1ML VIAL SQ SCH (22:05)
[2024-02-18] MEDS: ROSUVASTATIN CA 5 MG TABLET PO SCH (00:13)
[2024-02-18] MEDS: METOPROLOL TARTRATE 25 MG TABLET (FP) PO SCH (00:14)
[2024-02-18] MEDS: LATANOPROST 0.005% OPHTH SOLN 2.5ML BOTTLE OU SCH (00:14)
[2024-02-18] MEDS ORDERED: HEPARIN NA (PORCINE) 5,000 UNITS/ML 1ML VIAL IVPUSH PRN (01:49)
[2024-02-18 02:43] LABS: BASO % 0.1 % (0-2.0); EOS % 0.1 % (0-4.5); HEMATOCRIT 41.1 % (32.4-45.2); HEMOGLOBIN 13.5 GM/dL (10.7-15.3); LYMPH % 22.4 % (8-40); MCH 29.4 pg (25.7-33.7); MCHC 32.8 g/dl (32.0-36.0); MEAN CELL VOLUME 89.6 fl (80-96); MEAN PLT VOLUME 8.4 fl (7.5-11.1); MONO % 11.6 % (3.8-10.2); NEUT % 65.8 % (42.8-82.8); PLATELET COUNT 183 10^3/uL (134-434); RBC 4.59 M/mm3 (3.60-5.2); RDW 15.6 % (11.6-15.6); WHITE BLOOD COUNT 8.1 K/mm3 (4.0-10.0)
[2024-02-18 02:46] VITALS: BMI 35.4
[2024-02-18] MEDS: HEPARIN - 25,000 UNIT in SODIUM CHLORIDE 495 ML IV SCH (04:09)
[2024-02-18 07:52] LABS: POTASSIUM 4.2 mmol/L (3.5-5.1)
[2024-02-18 07:55] LABS: CALCIUM 9.3 mg/dL (8.5-10.1)
[2024-02-18 07:56] LABS: ALBUMIN 2.9 g/dl (3.4-5.0); BLOOD UREA NITROGEN 46.8 mg/dL (7-18); MAGNESIUM 2.3 mg/dL (1.8-2.4)
[2024-02-18 07:59] LABS: CREATININE 6.9 mg/dL (0.55-1.3); PHOSPHOROUS 6.2 mg/dL (2.5-4.9)
[2024-02-18 08:00] LABS: BILIRUBIN,TOTAL 0.9 mg/dL (0.2-1); TOT PROT 6.2 g/dl (6.4-8.2)
[2024-02-18 08:28] LABS: HEMATOCRIT 41.5 % (32.4-45.2); HEMOGLOBIN 13.3 GM/dL (10.7-15.3); MCHC 32.1 g/dl (32.0-36.0); MEAN CELL VOLUME 90.4 fl (80-96); MEAN PLT VOLUME 8.6 fl (7.5-11.1); PLATELET COUNT 201 10^3/uL (134-434); RBC 4.59 M/mm3 (3.60-5.2); RDW 15.3 % (11.6-15.6); WHITE BLOOD COUNT 8.5 K/mm3 (4.0-10.0)
[2024-02-18] MEDS ORDERED: EZETIMIBE 10 MG TABLET (FP) PO SCH (10:00)
[2024-02-18] MEDS ORDERED: CLOPIDOGREL BISULFATE 75 MG TABLET (FP) PO SCH (10:00)
[2024-02-18] MEDS: FAMOTIDINE 10 MG TABLET PO SCH (10:14)
[2024-02-18] MEDS: ASPIRIN 81 MG CHEWABLE TABLETS PO SCH (10:14)
[2024-02-18] MEDS: LIDOCAINE 5% TOPICAL PATCH TP SCH (10:15)
[2024-02-18] MEDS ORDERED: ALBUMIN HUMAN 25% 12.5 GM/50 ML VIAL IV SCH (11:30)
[2024-02-18] MEDS: ALBUMIN HUMAN 25% 12.5 GM/50 ML VIAL IV SCH (14:15)
[2024-02-18] MEDS ORDERED: SODIUM CHLORIDE 250 ML IV PRN ×3 (14:30→16:00)
[2024-02-18] MEDS: HEPARIN NA (PORCINE) 5,000 UNITS/ML 1ML VIAL IVPUSH PRN (15:42)
[2024-02-18] MEDS: INSULIN ASPART SLIDING SCALE (NOVOLOG) 1 VIAL SQ SCH (17:34)
[2024-02-18] MEDS: LIDOCAINE PATCH REMOVAL MC SCH (21:34)
[2024-02-19 08:35] LABS: BASO % 0.4 % (0-2.0); EOS % 0.5 % (0-4.5); HEMATOCRIT 42.2 % (32.4-45.2); HEMOGLOBIN 13.3 GM/dL (10.7-15.3); LYMPH % 25.1 % (8-40); MCH 28.8 pg (25.7-33.7); MCHC 31.6 g/dl (32.0-36.0); MEAN CELL VOLUME 91.1 fl (80-96); MEAN PLT VOLUME 8.5 fl (7.5-11.1); MONO % 12.7 % (3.8-10.2); NEUT % 61.3 % (42.8-82.8); PLATELET COUNT 212 10^3/uL (134-434); RBC 4.63 M/mm3 (3.60-5.2); RDW 15.6 % (11.6-15.6); WHITE BLOOD COUNT 7.4 K/mm3 (4.0-10.0)
[2024-02-19 08:48] LABS: POTASSIUM 3.7 mmol/L (3.5-5.1)
[2024-02-19 08:57] LABS: CALCIUM 9.7 mg/dL (8.5-10.1)
[2024-02-19 08:58] LABS: ALBUMIN 3.4 g/dl (3.4-5.0); BLOOD UREA NITROGEN 39.7 mg/dL (7-18)
[2024-02-19 09:01] LABS: CREATININE 5.8 mg/dL (0.55-1.3)
[2024-02-19 09:02] LABS: TOT PROT 6.6 g/dl (6.4-8.2)
[2024-02-19 14:37] VITALS: BP 132/52; PULSE 79; RESP 16; TEMP 97.5
[2024-02-19] MEDS: hydrOXYzine HCL 10 MG/5 ML LIQUID BULK BOTTLE PO PRN (16:31)
== END 2024-02-19 17:20 | disposition short-term general hospital (02) | DRG 280 ==
LOC: JER 08:41 → JERBED 13:42 → J4S 17:53
PROVIDERS: ADMIT Internal Medicine; ATTEND Internal Medicine
PROC: 5A1D70Z Performance of Urinary Filtration, Intermittent, Less than 6 Hours Per Day (ICD-10-PCS; principal; 2024-02-18)
DX: I21.4 Non-ST elevation (NSTEMI) myocardial infarction (principal); N18.6 End stage renal disease; I13.2 Hypertensive heart and chronic kidney disease with heart failure and with stage 5 chronic kidney disease, or end stage renal disease; I47.10 Supraventricular tachycardia, unspecified; I50.22 Chronic systolic (congestive) heart failure; E11.9 Type 2 diabetes mellitus without complications; I25.10 Atherosclerotic heart disease of native coronary artery without angina pectoris; Z95.5 Presence of coronary angioplasty implant and graft; Z99.2 Dependence on renal dialysis
CPT/HCPCS: 0241U-QW; 36415; 71045-TC-FY; 80053; 82803; 82962; 83735; 83880; 84100; 84443; 84484; 85025; 85027; 85610; 85730; 86704; 86803; 87340; 87517; 93005; 93010; 93306-TC; 99285-25; J0131; J1644; P9047

== ENCOUNTER 2024-04-08 11:40 | Emergency (ER) | payer OTHER ==
[2024-04-08 11:58] VITALS: BMI 33.5
[2024-04-08] MEDS ORDERED: FAMOTIDINE 20 MG/50 ML IVPB 50 ML IVPB ONE (12:17)
[2024-04-08] MEDS ORDERED: ACETAMINOPHEN INJECTION 100 ML IVPB ONE (12:28)
[2024-04-08] MEDS: ACETAMINOPHEN 1000 MG/100 ML BAG IVPB ONE (12:45)
[2024-04-08 12:58] LABS: HEMATOCRIT 34.2 % (32.4-45.2); MCH 29.7 pg (25.7-33.7); MCHC 32.1 g/dl (32.0-36.0); MEAN CELL VOLUME 92.3 fl (80-96); PLATELET COUNT 195.4 10^3/uL (134-434)
[2024-04-08 13:01] LABS: INR 1.18 (0.83-1.09); PROTHROMBIN TIME (PATIENT) 13.4 SEC (9.7-13.0)
[2024-04-08 13:03] LABS: ACTIVATED PTT 37.5 SECONDS (25.2-36.5)
[2024-04-08 13:04] LABS: PLATELET ESTIMATE ADEQUATE
[2024-04-08 13:11] LABS: ALBUMIN 4.2 g/dl (3.4-5.0); BILIRUBIN,TOTAL 0.6 mg/dl (0.2-1); CALCIUM 9.6 mg/dl (8.5-10.1); CREATININE 3.5 mg/dl (0.6-1.3); MAGNESIUM 1.9 mg/dL (1.8-2.4); POTASSIUM 3.3 mmol/L (3.5-5.1); TOT PROT 7.3 g/dl (6.4-8.2)
[2024-04-08] MEDS: FAMOTIDINE 20 MG/50 ML IVPB 20 MG/50 ML MG IVPB ONE (13:25)
[2024-04-08] MEDS ORDERED: FAMOTIDINE 20 MG/50 ML IVPB 20 MG/50 ML MG IVPB ONE (13:28)
[2024-04-08] MEDS ORDERED: cefTRIAXone SODIUM 1 GM VIAL ONE (14:39)
[2024-04-08] MEDS: CEFTRIAXONE 1 GM in DEXTROSE 5%-WATER - 100 ML IVPB ONE (14:45)
[2024-04-08 15:37] VITALS: BP 142/66; PULSE 72; RESP 19; TEMP 97.6
[2024-04-08 15:45] LABS: N-TERMINAL BNP 32126.2 pg/ml (5-125)
== END 2024-04-08 16:17 | disposition home or self-care (01) ==
LOC: FER 11:40
PROC: 3E03329 Introduction of Other Anti-infective into Peripheral Vein, Percutaneous Approach (ICD-10-PCS; principal; 2024-04-08)
PROC: 3E033GC Introduction of Other Therapeutic Substance into Peripheral Vein, Percutaneous Approach (ICD-10-PCS; 2024-04-08)
PROC: 3E030NZ Introduction of Analgesics, Hypnotics, Sedatives into Peripheral Vein, Open Approach (ICD-10-PCS; 2024-04-08)
DX: N39.0 Urinary tract infection, site not specified (principal); R31.9 Hematuria, unspecified; R10.31 Right lower quadrant pain; R10.32 Left lower quadrant pain; R19.00 Intra-abdominal and pelvic swelling, mass and lump, unspecified site
CPT/HCPCS: 36415; 74176-TC; 80053; 81003; 81015; 83690; 83735; 83880; 85027; 85610; 85730; 86850; 86900; 86901; 99284-25; J0131

== ENCOUNTER 2024-07-21 18:27 | Emergency (ER) | payer OTHER ==
[2024-07-21 18:36] VITALS: BMI 31.1
[2024-07-21 19:05] VITALS: TEMP 98.1
[2024-07-21 21:10] VITALS: BP 135/87; PULSE 77; RESP 16
== END 2024-07-21 21:18 | disposition home or self-care (01) ==
LOC: FER 18:27
DX: H53.133 Sudden visual loss, bilateral (principal); H53.8 Other visual disturbances
CPT/HCPCS: 70450-TC; 99284-25